=== PATIENT | female | born 1945 | race Caucasian/White ===

== ENCOUNTER 2022-05-05 13:25 | Emergency (ER) | payer OTHER ==
--- OUTSIDE RECORDS SUMMARY | 2022-05-05 13:34 | XMS REPORT | Continuity of Care Document ---
:1945 Author Organization [facility] t Address [address] [place] [address] Care Team Providers Name Role Phone VANESSA MC M.D. Attending Clinician Unavailable Mitchell Millan Attending Clinician Unavailable DAVID VALDERRAMA NP Attending Clinician Unavailable Payers Payer Name Policy Type Policy Number Effective Date Expiration Date S ource Problems Condition Condition Condition Status Onset Resolution Last Treating Co mments Source Name Details Category Date Date Treatment Clinician Date Diabetes Diabetes Problem Active UT mellitus mellitus Physic i ans Belching Belching Problem Active [facility] Physici ans Decreased Decreased Problem Active UT activities activities Ph ysici of daily of daily ans living living (ADL) (ADL) Dementia Dementia Problem Active [facility] ans GERD GERD Problem Active UT (gastroeso (gastroeso Ph ysici phageal phageal ans reflux reflux disease) disease) Hearing Hearing Problem Active UT difficulty difficulty Ph ysici of both of both ans ears ears Positive Positive Problem Active UT depression depression Ph ysici screening screening ans History of History of Problem Resolve UT Yeast Yeast d Physici vaginitis vaginitis ans Hyperlipid Hyperlipid Problem Active U T emia emia Physici ans History of History of Problem Resolve UT urinary urinary d Physici frequency frequency ans 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 Ph ysici y y ans Headache Headache Problem Active [facility] Physici ans History of History of Problem Resolve UT urinary urinary d Physici tract tract ans infection infection History of History of Problem Resolve UT vaginal vaginal d Physici pruritus pruritus ans At risk At risk Problem Active UT for for Physici falling falling ans Coordinati Coordinati Problem Active U T on of on of Physici complex complex ans care care Acute pain Acute pain Problem Active U T of left of left Physici knee knee ans Incontinen Incontinen Problem Active U T ce in ce in Physici female female ans Allergies, Adverse Reactions, Alerts Allergy Allergy Status Severity Reaction(s) Onset Inactive Treating Comm ents Source Name Type Date Date Clinician penicill DA Active U [facility] amine 4-16 Clear 00:00: Reece 00 [facility] penicill DA Active U UNKNOWN [facility] amine 4-16 Clear 00:00: Reece 00 [facility] Penicill drug Active UT ins allergy Physici ans Statins drug Active UT allergy Physici ans Family History Family Member Diagnosis Comments Start Date Stop Date Source Mother Family history of dementia [facility] Mother Family history of Diabetes [facility] mellitus of other type with microalbuminuria, with long-term current use of insulin Social History Smoking Status Start Date Stop Date Source Former smoker [facility] Medications Ordered Filled Start Stop Current Ordering Indication Dosage Frequency Signature Comments Components Source Medication Medication Date Date Medication? Clinician (SIG) Name Name traMADol traMADol Yes DAVIDTarsha VALDERRAMA Q0.3333D TAKE 1 UT HCl - 50 MG HCl - 50 MG 4-01 N.P. TABLET 3 Physici Oral Tablet Oral Tablet 00:00: TIMES ans 00 DAILY NEEDED. Butalbital- Butalbital- Yes VANESSA TAKE 1 UT APAP-Caffei APAP-Caffei 2-28 JESUSITA TABLET Physici ne ne 00:00: M.D. EVERY 4 TO ans 50-325-40 50-325-40 00 6 HOURS MG Oral MG Oral NEEDED FOR Tablet Tablet PAIN. Walker Walker Yes VANESSA USE UT 2-06 JESUSITA DIRECTED. Physici 00:00: M.D. ans 00 Omeprazole Omeprazole 2018- Yes VANESSA 2 TAKE 2 UT 20 MG Oral 20 MG Oral 2-04 JESUSITA TABLET Physici Tablet Tablet 00:00: M.D. Before ans Delayed Delayed 00 meals Release Release metFORMIN metFORMIN Yes VANESSA QD TAKE 2 UT HCl ER 500 HCl ER 500 1-31 JESUSITA TABLETS Physici MG Oral MG Oral 00:00: M.D. ONCE DAILY a ns Tablet Tablet 00 WITH THE Extended Extended EVENING Release 24 Release 24 MEAL. Hour Hour Probiotic Probiotic 2018- Yes 1 QD TAKE 1 U T Oral Tablet Oral Tablet 07-09 TABLET Physici Delayed Delayed 00:00: DAILY ans Release Release 00 HumuLIN HumuLIN Yes VANESSA 30 units UT 70/30 70/30 07-09 JESUSITA in AM and Physi ci KwikPen KwikPen 00:00: M.D. 20 units ans (70-30) 100 (70-30) 100 00 in PM UNIT/ML UNIT/ML Subcutaneou Subcutaneou s s Suspension Suspension Pen-injecto Pen-injecto r r Microlet Microlet Yes VANESSA USE UT Lancets Lancets 07-09 JESUSITA DIRECTED. P hysici 00:00: M.D. 3 TIMES ans 00 DAILY Contour Contour Yes VANESSA Q0.3333D TEST 3 UT Next Test Next Test 07-09 JESUSITA TIMES P hysici In Vitro In Vitro 00:00: M.D. DAILY. ans Strip Strip 00 Pen Argyle Pen Argyle Yes VANESSA USE UT 31G X 6 MM 31G X 6 MM 07-09 JESUSITA DIRECTED Physici 00:00: M.D. WITH DAILY ans 00 INJECTION Vital Signs Vital Name Observation Time Observation Value Comments Source BP Systolic 2018-09-10 13:14:00 117 mm[Hg] Location: [facility] gregorio Position: Sitting BP Diastolic 2018-09-10 13:14:00 77 [facility]Hg[facility] Height 2018-09-10 13:14:00 61 [in_us] [facility] Weight 2018-09-10 13:14:00 169 [lb_av] [facility] Body Mass Index 2018-09-10 13:14:00 31.93 kg/m2 [facility] Calculated Temperature 2018-09-10 13:14:00 97.4 [degF] Method: [facility] Temporal Heart Rate 2018-09-10 13:14:00 95 /min [facility] O2 SAT 2018-09-10 13:14:00 97 % [facility] BP Systolic 2018-08-09 15:44:00 98 mm[Hg] Location: LUE; [facility] Position: Sitting BP Diastolic 2018-08-09 15:44:00 64 mm[Hg] Location: LUE; [facility] Position: Sitting Weight 2018-08-09 15:44:00 168.4 [lb_av] [facility] Body Mass Index 2018-08-09 15:44:00 31.82 kg/m2 [facility] Calculated Temperature 2018-08-09 15:44:00 97.4 [degF] Method: [facility] Temporal O2 SAT 2018-08-09 15:44:00 98 % Source: [facility] Heart Rate 2018-08-09 15:44:00 73 /min [facility] BP Systolic 2018-07-16 16:25:00 102 mm[Hg] Location: LUE; [facility] Position: Sitting BP Diastolic 2018-07-16 16:25:00 70 mm[Hg] Location: LUE; [facility] Position: Sitting Height 2018-07-16 16:25:00 61 [in_us] [facility] Weight 2018-07-16 16:25:00 164.4 [lb_av] [facility] Body Mass Index 2018-07-16 16:25:00 31.06 kg/m2 [facility] Calculated Temperature 2018-07-16 16:25:00 97 [degF] Method: [facility] Temporal Heart Rate 2018-07-16 16:25:00 79 /min [facility] O2 SAT 2018-07-16 16:25:00 98 % [facility] BP Systolic 2018-07-09 13:23:00 107 mm[Hg] Location: LUE; [facility] Position: Sitting BP Diastolic 2018-07-09 13:23:00 72 mm[Hg] Location: LUE; [facility] Position: Sitting Height 2018-07-09 13:23:00 61 [in_us] [facility] Weight 2018-07-09 13:23:00 155.4 [lb_av] [facility] Body Mass Index 2018-07-09 13:23:00 29.36 kg/m2 [facility] Calculated Temperature 2018-07-09 13:23:00 97.4 [degF] Method: [facility] Temporal Heart Rate 2018-07-09 13:23:00 93 /min [facility] O2 SAT 2018-07-09 13:23:00 99 % Source: RA [facility] Procedures Procedure Date / Time Performing Clinician Source Performed [id number] 2019-09-27 00:00:00 ALEENA [facility] [id number] 2019-09-26 00:00:00 RESAL.01 [facility] [id number] 2019-09-26 00:00:00 RESAL.01 [facility] [id number] 2019-09-26 00:00:00 TIMOTHY [facility] [id number] 2019-09-26 00:00:00 RESAL.01 [facility] [id number] 2019-09-26 00:00:00 ALEENA [facility] [B] KNEE 3 VIEWS 2018-09-10 00:00:[address] Brain wo contrast 2018-08-09 00:00:00 [facility] [id number] [Q] URINALYSIS, 2018-08-02 00:00:00 [facility] s COMPLETE W/RFL CULTURE (REFL) [QLH] CBC (INCLUDES 2018-07-09 00:00:00 [facility] DIFF/PLT) [QLH] LIPID PANEL 2018-07-09 00:00:00 [facility]ici ans [QLH] CMP W/EGFR 2018-07-09 00:00:00 [facility] ns [QLH] TSH, 3RD 2018-07-09 00:00:00 [facility] s GENERATION [QLH] MICROALBUMIN, 2018-07-09 00:00:00 [facility] RANDOM URINE (W/CREATININE) [O] Urine Dipstick (In 2018-07-09 00:00:00 [facility] Office) [QLH] CULTURE, URINE, 2018-07-09 00:00:00 [facility] ROUTINE History of Hysterectomy [facility] History of Back Surgery [facility] Encounters Start End Encounter Admission Attending Care Care Encounter Source Date/Time Date/Time Type Type Clinicians Facility Department ID 2019-09-26 Inpatient HCACL LISANDRO [id number] [facility] 2018-10-09 AppointWILLIAM Rivera UTP [id number] [place] 15:30:00 15:30:00 t; Beba MENDEZ M.D. ans ALEYAMMA, M.D. 2018-09-21 2018-09-21 Outpatient TE Millan [id number] [facility] 07:54:00 07:54:00 [facility] 2018-09-10 2018-09-10 AppointDAVID Fry, [place] [id number] [place] 13:00:00 13:00:00 t; JIE VALDERRAMA Health and Ph ysici DAVID, [employer] [facility] 2018-08-28 2018-08-28 Outpatient TE Millan SETENT [id number] [facility] 13:42:00 13:42:00 [facility] 2018-08-13 2018-08-13 Outpatient TE Millan SETENT [id number] [facility] 08:05:00 08:05:00 [facility] 2018-08-09 2018-08-09 [id number] [place] 15:30:00 15:30:00 t; Mary MENDEZ and Jaxon MC M.D. Wellness Gabi Washington M.D. [place] 2018-08-07 2018-08-07 [id number] [place] 10:30:00 10:30:00 t; Mary MENDEZ and Jaxon CM M.D. Wellness Gabi Washington M.D. [place] 2018-07-16 2018-07-16 [facility] [id number] [place] 16:00:00 16:00:00 t; Mary MENDEZ and Jaxon MC M.D. Wellness Gabi Washington M.D. [place] 2018-07-16 2018-07-16 [facility] [id number] [place] 15:00:00 15:00:00 t; Mary MENDEZ and Jaxon MC M.D. Wellness Gabi Washington M.D. [place] 2018-07-16 2018-07-16 Outpatient TE Millan [id number] [facility] 08:42:00 08:42:00 Mitchell viramontes [place] [facility] 2018-07-09 2018-07-09 Appointezequiel MC [facility] [id number] [place] 13:15:00 13:15:00 [facility] Blanche Patel Results Test Description Test Time Test Comments Results Result Comments Source GLUBED 2019-10-12 11:42:00 Test Item Value Reference Range Interpretation Comme nts GLUBED (test code = GLUBED) 117 MG/DL 70-110 H Performed by certified 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 [facility] BASIC METABOLIC [id number] 07:36:00 Test Item Value Reference Range Interpretation Comments SODIUM (test code = NA) 141 mEq/L 134-147 N POTASSIUM (test code = 3.2 mEq/L 3.4-5.0 L K) CHLORIDE (test code = 107 mEq/L 100-108 N CL) CARBON DIOXIDE (test 27 mEq/L 21-33 N code = CO2) ANION GAP (test code = 10 0-20 N GAP) GLUCOSE (test code = 234 mg/dL 70-110 H GLU) BLOOD UREA NITROGEN 28 mg/dL 7-18 H (test code = BUN) GLOMERULAR FILTRATION 18.9 70-80 L Units of measure = RATE (test code = GFR) ml/mi n/1.73 m2 CREATININE (test code = 2.5 mg/dL 0.6-1.3 H CREAT) CALCIUM (test code = 8.0 mg/dL 8.0-10.5 N CA) [id number] 07:36:00 Test Item Value Reference Range Interpretation Comments PHOSPHOROUS (test code = PHOS) 3.1 MG/DL 2.5-4.9 N [id number] 07:36:00 Test Item Value Reference Range Interpretation Comments MAGNESIUM (test code = MAG) 1.60 mg/dL 1.8-2.4 L [id number] 07:32:00 Test Item Value Reference Range Interpretation Comments GLUBED (test code = 224 MG/DL 70-110 H Performe d by certified 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[facility] CBC W/AUTO [id number] 07:06:00 Test Item Value Reference Range Interpretation Comments WHITE BLOOD CELL (test code = 8.34 x10 3/uL 4.5-11.0 N WBC) RED BLOOD CELL (test code = 2.54 x10 6/uL 3.54-5.02 L RBC) HEMOGLOBIN (test code = HGB) 7.6 g/dL 11.0-15.0 L HEMATOCRIT (test code = HCT) 24.1 % 33.0-45.0 L MEAN CELL VOLUME (test code = 94.9 fL 81.0-99.0 N MCV) MEAN CELL HGB (test code = MCH) 29.9 pg 27.0-33.0 N MEAN CELL HGB CONCETRATION 31.5 g/dL 33.0-37.0 L (test code = MCHC) RED CELL DISTRIBUTION WIDTH CV 15.5 % 11.5-14.5 H (test code = RDW) RED CELL DISTRIBUTION WIDTH SD 51.7 fL 37.0-54.0 N (test code = RDW-SD) PLATELET COUNT (test code = 283 x10 3/uL 150-400 N PLT) MEAN PLATELET VOLUME (test code 10.8 fL 7.0-9.0 H = MPV) NEUTROPHIL % (test code = NT%) 66.1 % 56.0-77.0 N IMMATURE GRANULOCYTE % (test 0.5 % 0.0-2.0 N code = IG%) LYMPHOCYTE % (test code = LY%) 22.9 % 14.0-32.0 N MONOCYTE % (test code = MO%) 8.9 % 4.8-9.0 N EOSINOPHIL % (test code = EO%) 0.8 % 0.3-3.7 N BASOPHIL % (test code = BA%) 0.8 % 0.0-2.0 N NUCLEATED RBC % (test code = 0.0 % 0-0 N NRBC%) NEUTROPHIL # (test code = NT#) 5.51 x10 3/uL 2.0-7.6 N IMMATURE GRANULOCYTE # (test 0.04 x10 3/uL 0.00-0.03 H code = IG#) LYMPHOCYTE # (test code = LY#) 1.91 x10 3/uL 1.0-3.8 N MONOCYTE # (test code = MO#) 0.74 x10 3/uL 0.1-0.8 N EOSINOPHIL # (test code = EO#) 0.07 x10 3/uL 0.0-0.2 N BASOPHIL # (test code = BA#) 0.07 x10 3/uL 0.0-0.2 N NUCLEATED RBC # (test code = 0.00 x10 3/uL 0.0-0.1 N NRBC#) MANUAL DIFF REQUIRED (test code NO = MDIFF) [id number] 19:44:00 Test Item Value Reference Range Interpretation Comments GLUBED (test code = 116 MG/DL 70-110 H Performe d by certified 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[facility] [id number] 16:20:00 Test Item Value Reference Range Interpretation Comments GLUBED (test code = 132 MG/DL 70-110 H Performe d by certified 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[facility] BASIC METABOLIC [id number] 12:23:00 Test Item Value Reference Range Interpretation Comments SODIUM (test code = NA) 142 mEq/L 134-147 N POTASSIUM (test code = 3.3 mEq/L 3.4-5.0 L K) CHLORIDE (test code = 107 mEq/L 100-108 N CL) CARBON DIOXIDE (test 29 mEq/L 21-33 N code = CO2) ANION GAP (test code = 9 0-20 N GAP) GLUCOSE (test code = 222 mg/dL 70-110 H GLU) BLOOD UREA NITROGEN 29 mg/dL 7-18 H (test code = BUN) GLOMERULAR FILTRATION 18.1 70-80 L Units of measure = RATE (test code = GFR) ml/mi n/1.73 m2 CREATININE (test code = 2.6 mg/dL 0.6-1.3 H CREAT) CALCIUM (test code = 7.9 mg/dL 8.0-10.5 L CA) [id number] 12:23:00 Test Item Value Reference Range Interpretation Comments MAGNESIUM (test code = MAG) 1.40 mg/dL 1.8-2.4 L CBC W/AUTO [id number] 11:44:00 Test Item Value Reference Range Interpretation Comments WHITE BLOOD CELL (test code = 9.83 x10 3/uL 4.5-11.0 N WBC) RED BLOOD CELL (test code = 2.63 x10 6/uL 3.54-5.02 L RBC) HEMOGLOBIN (test code = HGB) 7.9 g/dL 11.0-15.0 L HEMATOCRIT (test code = HCT) 24.6 % 33.0-45.0 L MEAN CELL VOLUME (test code = 93.5 fL 81.0-99.0 N MCV) MEAN CELL HGB (test code = MCH) 30.0 pg 27.0-33.0 N MEAN CELL HGB CONCETRATION 32.1 g/dL 33.0-37.0 L (test code = MCHC) RED CELL DISTRIBUTION WIDTH CV 15.1 % 11.5-14.5 H (test code = RDW) RED CELL DISTRIBUTION WIDTH SD 49.7 fL 37.0-54.0 N (test code = RDW-SD) PLATELET COUNT (test code = 283 x10 3/uL 150-400 N PLT) MEAN PLATELET VOLUME (test code 10.3 fL 7.0-9.0 H = MPV) NEUTROPHIL % (test code = NT%) 73.4 % 56.0-77.0 N IMMATURE GRANULOCYTE % (test 0.5 % 0.0-2.0 N code = IG%) LYMPHOCYTE % (test code = LY%) 17.1 % 14.0-32.0 N MONOCYTE % (test code = MO%) 7.4 % 4.8-9.0 N EOSINOPHIL % (test code = EO%) 0.9 % 0.3-3.7 N BASOPHIL % (test code = BA%) 0.7 % 0.0-2.0 N NUCLEATED RBC % (test code = 0.0 % 0-0 N NRBC%) NEUTROPHIL # (test code = NT#) 7.21 x10 3/uL 2.0-7.6 N IMMATURE GRANULOCYTE # (test 0.05 x10 3/uL 0.00-0.03 H code = IG#) LYMPHOCYTE # (test code = LY#) 1.68 x10 3/uL 1.0-3.8 N MONOCYTE # (test code = MO#) 0.73 x10 3/uL 0.1-0.8 N EOSINOPHIL # (test code = EO#) 0.09 x10 3/uL 0.0-0.2 N BASOPHIL # (test code = BA#) 0.07 x10 3/uL 0.0-0.2 N NUCLEATED RBC # (test code = 0.00 x10 3/uL 0.0-0.1 N NRBC#) MANUAL DIFF REQUIRED (test code NO = MDIFF) [id number] 10:37:00 Test Item Value Reference Range Interpretation Comments GLUBED (test code = 233 MG/DL 70-110 H Performe d by certified 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[facility] [id number] 07:27:00 Test Item Value Reference Range Interpretation Comments GLUBED (test code = 130 MG/DL 70-110 H Performe d by certified 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[facility] [id number] 20:11:00 Test Item Value Reference Range Interpretation Comments GLUBED (test code = 177 MG/DL 70-110 H Performe d by certified 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[facility] [id number] 17:39:00 Test Item Value Reference Range Interpretation Comments GLUBED (test code = 175 MG/DL 70-110 H Performe d by certified 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[facility] [id number] 11:52:00 Test Item Value Reference Range Interpretation Comments GLUBED (test code = 136 MG/DL 70-110 H Performe d by certified 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[facility] CBC W/AUTO [id number] 08:16:00 Test Item Value Reference Range Interpretation Comments WHITE BLOOD CELL (test code = 10.88 x10 3/uL 4.5-11.0 N WBC) RED BLOOD CELL (test code = 2.86 x10 6/uL 3.54-5.02 L RBC) HEMOGLOBIN (test code = HGB) 8.5 g/dL 11.0-15.0 L HEMATOCRIT (test code = HCT) 26.4 % 33.0-45.0 L MEAN CELL VOLUME (test code = 92.3 fL 81.0-99.0 MCV) MEAN CELL HGB (test code = 29.7 pg 27.0-33.0 N MCH) MEAN CELL HGB CONCETRATION 32.2 g/dL 33.0-37.0 L (test code = MCHC) RED CELL DISTRIBUTION WIDTH CV 14.9 % 11.5-14.5 H (test code = RDW) RED CELL DISTRIBUTION WIDTH SD 48.2 fL 37.0-54.0 N (test code = RDW-SD) PLATELET COUNT (test code = 311 x10 3/uL 150-400 PLT) MEAN PLATELET VOLUME (test 10.7 fL 7.0-9.0 H code = MPV) NEUTROPHIL % (test code = NT%) 70.7 % 56.0-77.0 N IMMATURE GRANULOCYTE % (test 0.6 % 0.0-2.0 N code = IG%) LYMPHOCYTE % (test code = LY%) 20.6 % 14.0-32.0 N MONOCYTE % (test code = MO%) 6.5 % 4.8-9.0 N EOSINOPHIL % (test code = EO%) 1.0 % 0.3-3.7 N BASOPHIL % (test code = BA%) 0.6 % 0.0-2.0 N NUCLEATED RBC % (test code = 0.0 % 0-0 N NRBC%) NEUTROPHIL # (test code = NT#) 7.69 x10 3/uL 2.0-7.6 H IMMATURE GRANULOCYTE # (test 0.07 x10 3/uL 0.00-0.03 H code = IG#) LYMPHOCYTE # (test code = LY#) 2.24 x10 3/uL 1.0-3.8 N MONOCYTE # (test code = MO#) 0.71 x10 3/uL 0.1-0.8 N EOSINOPHIL # (test code = EO#) 0.11 x10 3/uL 0.0-0.2 N BASOPHIL # (test code = BA#) 0.06 x10 3/uL 0.0-0.2 N NUCLEATED RBC # (test code = 0.00 x10 3/uL 0.0-0.1 N NRBC#) MANUAL DIFF REQUIRED (test NO code = MDIFF) [id number] 08:11:00 Test Item Value Reference Range Interpretation Comments GLUBED (test code = 119 MG/DL 70-110 H Performe d by certified 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[facility] BASIC METABOLIC [id number] 07:49:00 Test Item Value Reference Range Interpretation Comments SODIUM (test code = NA) 143 mEq/L 134-147 N POTASSIUM (test code = 2.8 mEq/L 3.4-5.0 LL K) CHLORIDE (test code = 106 mEq/L 100-108 N CL) CARBON DIOXIDE (test 30 mEq/L 21-33 code = CO2) ANION GAP (test code = 10 0-20 N GAP) GLUCOSE (test code = 123 mg/dL 70-110 H GLU) BLOOD UREA NITROGEN 27 mg/dL 7-18 H (test code = BUN) GLOMERULAR FILTRATION 19.8 70-80 L Units of measure = RATE (test code = GFR) ml/mi n/1.73 m2 CREATININE (test code = 2.4 mg/dL 0.6-1.3 H CREAT) CALCIUM (test code = 8.0 mg/dL 8.0-10.5 N CA) [id number] 07:49:00 Test Item Value Reference Range Interpretation Comments PHOSPHOROUS (test code = PHOS) 3.5 MG/DL 2.5-4.9 N [id number] 07:49:00 Test Item Value Reference Range Interpretation Comments MAGNESIUM (test code = MAG) 1.30 mg/dL 1.8-2.4 L [id number] 21:10:00 Test Item Value Reference Range Interpretation Comments GLUBED (test code = 234 MG/DL 70-110 H Performe d by certified 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[facility] [id number] 17:21:00 Test Item Value Reference Range Interpretation Comments GLUBED (test code = 127 MG/DL 70-110 H Performe d by certified 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[facility] [id number] 13:26:00 Test Item Value Reference Range Interpretation Comments GLUBED (test code = 144 MG/DL 70-110 H Performe d by certified 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[facility] TOTAL IRON BINDING [id number] 12:02:00 Test Item Value Reference Range Interpretation Comments SERUM IRON (test code = IRON) 56 mcg/dL 35-150 N TOTAL IRON BINDING CAPACITY (test 163 mcg/dL 260-445 L code = TIBC) UIBC (test code = UIBC) 107 mcg/dL IRON SATURATION (test code = 34.4 % 14-34 H FESAT) [id number] 12:02:00 Test Item Value Reference Range Interpretation Comments FERRITIN (test code = VIKY) 182.0 ng/mL 11.0-306.8 N [id number] 08:40:00 Test Item Value Reference Range Interpretation Comments GLUBED (test code = 136 MG/DL 70-110 H Performe d by certified 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[facility] BASIC METABOLIC [id number] 08:20:00 Test Item Value Reference Range Interpretation Comments SODIUM (test code = NA) 141 mEq/L 134-147 N POTASSIUM (test code = 3.3 mEq/L 3.4-5.0 L K) CHLORIDE (test code = 108 mEq/L 100-108 N CL) CARBON DIOXIDE (test 23 mEq/L 21-33 N code = CO2) ANION GAP (test code = 13 0-20 N GAP) GLUCOSE (test code = 142 mg/dL 70-110 H GLU) BLOOD UREA NITROGEN 28 mg/dL 7-18 H (test code = BUN) GLOMERULAR FILTRATION 18.9 70-80 L Units of measure = RATE (test code = GFR) ml/mi n/1.73 m2 CREATININE (test code = 2.5 mg/dL 0.6-1.3 H CREAT) CALCIUM (test code = 7.8 mg/dL 8.0-10.5 L CA) [id number] 08:20:00 Test Item Value Reference Range Interpretation Comments PHOSPHOROUS (test code = PHOS) 3.1 MG/DL 2.5-4.9 N [id number] 08:20:00 Test Item Value Reference Range Interpretation Comments MAGNESIUM (test code = MAG) 1.60 mg/dL 1.8-2.4 L CBC W/AUTO [id number] 07:52:00 Test Item Value Reference Range Interpretation Comments WHITE BLOOD CELL (test code = 10.44 x10 3/uL 4.5-11.0 N WBC) RED BLOOD CELL (test code = 2.52 x10 6/uL 3.54-5.02 L RBC) HEMOGLOBIN (test code = HGB) 7.6 g/dL 11.0-15.0 L HEMATOCRIT (test code = HCT) 24.3 % 33.0-45.0 L MEAN CELL VOLUME (test code = 96.4 fL 81.0-99.0 N MCV) MEAN CELL HGB (test code = 30.2 pg 27.0-33.0 N MCH) MEAN CELL HGB CONCETRATION 31.3 g/dL 33.0-37.0 L (test code = MCHC) RED CELL DISTRIBUTION WIDTH CV 15.0 % 11.5-14.5 H (test code = RDW) RED CELL DISTRIBUTION WIDTH SD 49.9 fL 37.0-54.0 N (test code = RDW-SD) PLATELET COUNT (test code = 193 x10 3/uL 150-400 N PLT) MEAN PLATELET VOLUME (test 11.6 fL 7.0-9.0 H code = MPV) NEUTROPHIL % (test code = NT%) 70.1 % 56.0-77.0 N IMMATURE GRANULOCYTE % (test 0.5 % 0.0-2.0 N code = IG%) LYMPHOCYTE % (test code = LY%) 21.1 % 14.0-32.0 N MONOCYTE % (test code = MO%) 7.0 % 4.8-9.0 N EOSINOPHIL % (test code = EO%) 1.0 % 0.3-3.7 N BASOPHIL % (test code = BA%) 0.3 % 0.0-2.0 N NUCLEATED RBC % (test code = 0.2 % 0-0 H NRBC%) NEUTROPHIL # (test code = NT#) 7.33 x10 3/uL 2.0-7.6 N IMMATURE GRANULOCYTE # (test 0.05 x10 3/uL 0.00-0.03 H code = IG#) LYMPHOCYTE # (test code = LY#) 2.20 x10 3/uL 1.0-3.8 N MONOCYTE # (test code = MO#) 0.73 x10 3/uL 0.1-0.8 N EOSINOPHIL # (test code = EO#) 0.10 x10 3/uL 0.0-0.2 N BASOPHIL # (test code = BA#) 0.03 x10 3/uL 0.0-0.2 N NUCLEATED RBC # (test code = 0.02 x10 3/uL 0.0-0.1 N NRBC#) MANUAL DIFF REQUIRED (test NO code = MDIFF) [id number] 07:16:00 Test Item Value Reference Range Interpretation Comments GLUBED (test code = 279 MG/DL 70-110 H Performe d by certified 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[facility] [id number] 21:40:00 Test Item Value Reference Range Interpretation Comments GLUBED (test code = 282 MG/DL 70-110 H Performe d by certified 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[facility] [id number] 11:28:00 Test Item Value Reference Range Interpretation Comments GLUBED (test code = 115 MG/DL 70-110 H Performe d by certified 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[facility] [id number] 08:26:00 Test Item Value Reference Range Interpretation Comments GLUBED (test code = 117 MG/DL 70-110 H Performe d by certified 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[facility] [id number] 20:40:00 Test Item Value Reference Range Interpretation Comments GLUBED (test code = 152 MG/DL 70-110 H Performe d by certified 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[facility] [id number] 17:27:00 Test Item Value Reference Range Interpretation Comments GLUBED (test code = 155 MG/DL 70-110 H Performe d by certified 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 Positiv e results do not rule out bacterial infection or co -infection with other viru ses. Negative result s do not preclude SARS-C oV-2 infection andsh ould not be used as the susanne e basis for patient managementdecis ions. Negative result s must be combined with otherclinical observations, p atient history, and epidemiological information . Detection of SARS-CoV-2 RNA may be affe cted bysample collec tion methods, storag e conditions, and /or stageof infection. Loren l RNA mutations, vacc inations, antiviraltherap eutics, antibiotics, chemotherapeuti c orimmunosuppres angelito drugs have not been e valuated for effectson d etection. Results are for the identification of SARS-CoV-2 RNA usingthe Kenny M2000 Sy stem under the FDA Emergen cy UseAuthorizatio n. The testing is perf ormed by personneltraine d in the procedures for the Kenny M2000 molecular diagnostic SARS-CoV-2 assa y in vitro. 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[facility] [id number] 08:07:00 Test Item Value Reference Range Interpretation Comments GLUBED (test code = 112 MG/DL 70-110 H Performe d by certified 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[facility] BASIC METABOLIC [id number] 03:35:00 Test Item Value Reference Range Interpretation Comments SODIUM (test code = NA) 139 mEq/L 134-147 N POTASSIUM (test code = 3.1 mEq/L 3.4-5.0 L K) CHLORIDE (test code = 106 mEq/L 100-108 N CL) CARBON DIOXIDE (test 24 mEq/L 21-33 N code = CO2) ANION GAP (test code = 12 0-20 N GAP) GLUCOSE (test code = 115 mg/dL 70-110 H GLU) BLOOD UREA NITROGEN 27 mg/dL 7-18 H (test code = BUN) GLOMERULAR FILTRATION 19.8 70-80 L Units of measure = RATE (test code = GFR) ml/mi n/1.73 m2 CREATININE (test code = 2.4 mg/dL 0.6-1.3 H CREAT) CALCIUM (test code = 8.1 mg/dL 8.0-10.5 N CA) [id number] 03:35:00 Test Item Value Reference Range Interpretation Comments PHOSPHOROUS (test code = PHOS) 3.4 MG/DL 2.5-4.9 [id number] 03:35:00 Test Item Value Reference Range Interpretation Comments MAGNESIUM (test code = MAG) 1.50 mg/dL 1.8-2.4 L CBC W/AUTO [id number] 03:22:00 Test Item Value Reference Range Interpretation Comments WHITE BLOOD CELL (test code = 9.48 x10 3/uL 4.5-11.0 N WBC) RED BLOOD CELL (test code = 2.72 x10 6/uL 3.54-5.02 L RBC) HEMOGLOBIN (test code = HGB) 8.0 g/dL 11.0-15.0 L HEMATOCRIT (test code = HCT) 26.2 % 33.0-45.0 L MEAN CELL VOLUME (test code = 96.3 fL 81.0-99.0 MCV) MEAN CELL HGB (test code = MCH) 29.4 pg 27.0-33.0 N MEAN CELL HGB CONCETRATION 30.5 g/dL 33.0-37.0 L (test code = MCHC) RED CELL DISTRIBUTION WIDTH CV 14.1 % 11.5-14.5 N (test code = RDW) RED CELL DISTRIBUTION WIDTH SD 48.2 fL 37.0-54.0 N (test code = RDW-SD) PLATELET COUNT (test code = 216 x10 3/uL 150-400 N PLT) MEAN PLATELET VOLUME (test code 10.0 fL 7.0-9.0 H = MPV) NEUTROPHIL % (test code = NT%) 57.0 % 56.0-77.0 N IMMATURE GRANULOCYTE % (test 1.2 % 0.0-2.0 N code = IG%) LYMPHOCYTE % (test code = LY%) 25.3 % 14.0-32.0 N MONOCYTE % (test code = MO%) 14.7 % 4.8-9.0 H EOSINOPHIL % (test code = EO%) 1.4 % 0.3-3.7 N BASOPHIL % (test code = BA%) 0.4 % 0.0-2.0 N NUCLEATED RBC % (test code = 0.2 % 0-0 H NRBC%) NEUTROPHIL # (test code = NT#) 5.41 x10 3/uL 2.0-7.6 N IMMATURE GRANULOCYTE # (test 0.11 x10 3/uL 0.00-0.03 H code = IG#) LYMPHOCYTE # (test code = LY#) 2.40 x10 3/uL 1.0-3.8 N MONOCYTE # (test code = MO#) 1.39 x10 3/uL 0.1-0.8 H EOSINOPHIL # (test code = EO#) 0.13 x10 3/uL 0.0-0.2 N BASOPHIL # (test code = BA#) 0.04 x10 3/uL 0.0-0.2 N NUCLEATED RBC # (test code = 0.02 x10 3/uL 0.0-0.1 N NRBC#) MANUAL DIFF REQUIRED (test code NO = MDIFF) [id number] 23:52:00 Test Item Value Reference Range Interpretation Comments GLUBED (test code = 139 MG/DL 70-110 H Performe d by certified 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 YESCOMMENTS: R/O PATIENT IN CONTACT WITH POSITIVE COVID 19 THROUGH [facility]/Comment: PATIENT WITH COUGH AND [id number] 13:06:00 Test Item Value Reference Range Interpretation Comments GLUBED (test code = 204 MG/DL 70-110 H Performe d by certified 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[facility] B-TYPE NATRIURETIC [id number] 11:28:00 Test Item Value Reference Range Interpretation Comments B-TYPE NATRIURETIC PEPTIDE (test 301.5 PG/ML 0-100 H code = BNP) CBC W/AUTO [id number] 11:25:00 Test Item Value Reference Range Interpretation Comments WHITE BLOOD CELL (test code = 7.11 x10 3/uL 4.5-11.0 N WBC) RED BLOOD CELL (test code = 2.56 x10 6/uL 3.54-5.02 L RBC) HEMOGLOBIN (test code = HGB) 7.6 g/dL 11.0-15.0 L HEMATOCRIT (test code = HCT) 23.5 % 33.0-45.0 L MEAN CELL VOLUME (test code = 91.8 fL 81.0-99.0 N MCV) MEAN CELL HGB (test code = MCH) 29.7 pg 27.0-33.0 N MEAN CELL HGB CONCETRATION 32.3 g/dL 33.0-37.0 L (test code = MCHC) RED CELL DISTRIBUTION WIDTH CV 13.6 % 11.5-14.5 N (test code = RDW) RED CELL DISTRIBUTION WIDTH SD 45.9 fL 37.0-54.0 N (test code = RDW-SD) PLATELET COUNT (test code = 212 x10 3/uL 150-400 N PLT) MEAN PLATELET VOLUME (test code 10.7 fL 7.0-9.0 H = MPV) MANUAL DIFF REQUIRED (test code YES = MDIFF) WBC [id number] 11:25:00 Test Item Value Reference Range Interpretation Comments SEGMENTED NEUTROPHILS (test 52.3 % 37-69 N code = SEG) BAND NEUTROPHIL (test code 4.6 % 0.0-10.0 N = BAND) LYMPHOCYTE (test code = 26.6 % 23-55 N LYMPH) MONOCYTE (test code = MON) 14.7 % 0-10 H EOSINOPHIL (test code = 0.9 % 0.0-4.0 N EOS) METAMYELOCYTE (test code = 0.9 % 0.0-0.0 H META) NUCLEATED RED BLOOD CELL 0.9 % (test code = NRBC) POLYCHROMASIA (test code = 2+ POLC) HYPOCHROMIA (test code = 1+ HYPO) POIKILOCYTOSIS (test code = 1+ POIK) ANISOCYTOSIS (test code = 1+ ANISO) PLATELET ESTIMATE (test Adequate THOUSAND ADEQUATE code = PLTEST) CBC W/AUTO [id number] 11:20:00 Test Item Value Reference Range Interpretation Comments WHITE BLOOD CELL (test code = 7.11 x10 3/uL 4.5-11.0 N WBC) RED BLOOD CELL (test code = 2.56 x10 6/uL 3.54-5.02 L RBC) HEMOGLOBIN (test code = HGB) 7.6 g/dL 11.0-15.0 L HEMATOCRIT (test code = HCT) 23.5 % 33.0-45.0 L MEAN CELL VOLUME (test code = 91.8 fL 81.0-99.0 N MCV) MEAN CELL HGB (test code = MCH) 29.7 pg 27.0-33.0 N MEAN CELL HGB CONCETRATION 32.3 g/dL 33.0-37.0 L (test code = MCHC) RED CELL DISTRIBUTION WIDTH CV 13.6 % 11.5-14.5 N (test code = RDW) RED CELL DISTRIBUTION WIDTH SD 45.9 fL 37.0-54.0 N (test code = RDW-SD) PLATELET COUNT (test code = 212 x10 3/uL 150-400 N PLT) MEAN PLATELET VOLUME (test code 10.7 fL 7.0-9.0 H = MPV) MANUAL DIFF REQUIRED (test code YES = MDIFF) WBC [id number] 11:20:00 Test Item Value Reference Range Interpretation Comments ANISOCYTOSIS (test code = ANISO) PLATELET ESTIMATE (test code = THOUSAND ADEQUATE PLTEST) CBC W/AUTO [id number] 11:20:00 Test Item Value Reference Range Interpretation Comments WHITE BLOOD CELL (test code = 7.11 x10 3/uL 4.5-11.0 N WBC) RED BLOOD CELL (test code = 2.56 x10 6/uL 3.54-5.02 L RBC) HEMOGLOBIN (test code = HGB) 7.6 g/dL 11.0-15.0 L HEMATOCRIT (test code = HCT) 23.5 % 33.0-45.0 L MEAN CELL VOLUME (test code = 91.8 fL 81.0-99.0 N MCV) MEAN CELL HGB (test code = MCH) 29.7 pg 27.0-33.0 N MEAN CELL HGB CONCETRATION 32.3 g/dL 33.0-37.0 L (test code = MCHC) RED CELL DISTRIBUTION WIDTH CV 13.6 % 11.5-14.5 N (test code = RDW) RED CELL DISTRIBUTION WIDTH SD 45.9 fL 37.0-54.0 N (test code = RDW-SD) PLATELET COUNT (test code = 212 x10 3/uL 150-400 N PLT) MEAN PLATELET VOLUME (test code 10.7 fL 7.0-9.0 H = MPV) MANUAL DIFF REQUIRED (test code YES = MDIFF) WBC [id number] 11:20:00 Test Item Value Reference Range Interpretation Comments ANISOCYTOSIS (test code = ANISO) PLATELET ESTIMATE (test code = THOUSAND ADEQUATE PLTEST) [id number] 11:12:00 Test Item Value Reference Range Interpretation Comments GLUBED (test code = 108 MG/DL 70-110 N Performe d by certified 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 - XR CHEST 1 [id number] 09:40:00 FAX: Joel Falk [phone] [place]: St: ADM Name: MAC AGUSTIN [facility] : 1945 Age/S: 74/F [address] [place] [address] Blvd Unit #: [id number] Loc: G.4431 [place] [address] Phys: Joel Myers MD Acct: [id number] Dis Date: Status: ADM IN PHONE #: [phone] Exam Date: 10/06/2019 0930FAX #: [phone] Reason: SOB,cough EXAMS: CPT CODE: [id number] XR CHEST 1 V 11699 EXAM: Single view AP chest. EXAM DATE: 10/06/2019 at 0910 hours CLINICAL HISTORY: SOB,cough COMPARISON: September 30, 2019 at 0457 hours Heart size is within normal limits. Atherosclerotic calcifications and tortuosity ofthe intrathoracic aorta is identified.. There has been a decrease in the previously described bilateral pleural effusions and bilateral basilar atelectasis. Mild vascular congestion is again identified. Surgical clips are noted in the right upper quadrant. Imaged osseous structures demonstrate no acute findings. IMPRESSION: 1. Decreasing bilateral pleural effusions and bibasilar atelectasis. 2. Stable pulmonary vascular congestion at 0940 Reported and signed by: Tracy Johnson M.D. CC: Joel Myers MD Technologist: Odalis Sarah RT(R) Trnscrd Date/Time/By: 10/06/2019 (4365) : By: Delvis Booker Print D/T: S: 10/06/2019 (8126) PAGE 1 Signed ReportBASIC METABOLIC [id number] 08:27:00 Test Item Value Reference Range Interpretation Comments SODIUM (test code = NA) 139 mEq/L 134-147 N POTASSIUM (test code = 3.6 mEq/L 3.4-5.0 N K) CHLORIDE (test code = 105 mEq/L 100-108 N CL) CARBON DIOXIDE (test 23 mEq/L 21-33 N code = CO2) ANION GAP (test code = 15 0-20 N GAP) GLUCOSE (test code = 94 mg/dL 70-110 N GLU) BLOOD UREA NITROGEN 26 mg/dL 7-18 H (test code = BUN) GLOMERULAR FILTRATION 18.1 70-80 L Units of measure = RATE (test code = GFR) ml/mi n/1.73 m2 CREATININE (test code = 2.6 mg/dL 0.6-1.3 H CREAT) CALCIUM (test code = 8.1 mg/dL 8.0-10.5 N CA) [id number] 08:27:00 Test Item Value Reference Range Interpretation Comments PHOSPHOROUS (test code = PHOS) 2.5 MG/DL 2.5-4.9 N [id number] 08:27:00 Test Item Value Reference Range Interpretation Comments MAGNESIUM (test code = MAG) 1.80 mg/dL 1.8-2.4 N CBC W/AUTO [id number] 07:44:00 Test Item Value Reference Range Interpretation Comments WHITE BLOOD CELL (test code = 7.11 x10 3/uL 4.5-11.0 N WBC) RED BLOOD CELL (test code = 2.56 x10 6/uL 3.54-5.02 L RBC) HEMOGLOBIN (test code = HGB) 7.6 g/dL 11.0-15.0 L HEMATOCRIT (test code = HCT) 23.5 % 33.0-45.0 L MEAN CELL VOLUME (test code = 91.8 fL 81.0-99.0 N MCV) MEAN CELL HGB (test code = MCH) 29.7 pg 27.0-33.0 N MEAN CELL HGB CONCETRATION 32.3 g/dL 33.0-37.0 L (test code = MCHC) RED CELL DISTRIBUTION WIDTH CV 13.6 % 11.5-14.5 N (test code = RDW) RED CELL DISTRIBUTION WIDTH SD 45.9 fL 37.0-54.0 N (test code = RDW-SD) PLATELET COUNT (test code = 212 x10 3/uL 150-400 N PLT) MEAN PLATELET VOLUME (test code 10.7 fL 7.0-9.0 H = MPV) NEUTROPHIL % (test code = NT%) % 56.0-77.0 LYMPHOCYTE % (test code = LY%) % 14.0-32.0 NEUTROPHIL # (test code = NT#) x10 3/uL 2.0-7.6 LYMPHOCYTE # (test code = LY#) x10 3/uL 1.0-3.8 MANUAL DIFF REQUIRED (test code = MDIFF) [id number] 20:34:00 Test Item Value Reference Range Interpretation Comments GLUBED (test code = 143 MG/DL 70-110 H Performe d by certified 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[facility] [id number] 18:17:00 Test Item Value Reference Range Interpretation Comments GLUBED (test code = 112 MG/DL 70-110 H Performe d by certified 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[facility] [id number] 12:26:00 Test Item Value Reference Range Interpretation Comments GLUBED (test code = 168 MG/DL 70-110 H Performe d by certified 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[facility] [id number] 09:28:00 Test Item Value Reference Range Interpretation Comments GLUBED (test code = 118 MG/DL 70-110 H Performe d by certified 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[facility] CBC W/AUTO [id number] 09:00:00 Test Item Value Reference Range Interpretation Comments WHITE BLOOD CELL (test code = 7.15 x10 3/uL 4.5-11.0 N WBC) RED BLOOD CELL (test code = 2.71 x10 6/uL 3.54-5.02 L RBC) HEMOGLOBIN (test code = HGB) 8.0 g/dL 11.0-15.0 L HEMATOCRIT (test code = HCT) 24.7 % 33.0-45.0 L MEAN CELL VOLUME (test code = 91.1 fL 81.0-99.0 MCV) MEAN CELL HGB (test code = MCH) 29.5 pg 27.0-33.0 N MEAN CELL HGB CONCETRATION 32.4 g/dL 33.0-37.0 L (test code = MCHC) RED CELL DISTRIBUTION WIDTH CV 13.3 % 11.5-14.5 N (test code = RDW) RED CELL DISTRIBUTION WIDTH SD 44.4 fL 37.0-54.0 N (test code = RDW-SD) PLATELET COUNT (test code = 192 x10 3/uL 150-400 PLT) MEAN PLATELET VOLUME (test code 10.3 fL 7.0-9.0 H = MPV) MANUAL DIFF REQUIRED (test code YES = MDIFF) WBC [id number] 09:00:00 Test Item Value Reference Range Interpretation Comments SEGMENTED NEUTROPHILS (test 57 % 37-69 N code = SEG) BAND NEUTROPHIL (test code 2.0 % 0.0-10.0 N = BAND) LYMPHOCYTE (test code = 25 % 23-55 N LYMPH) REACTIVE LYMPH (test code = MODERATE % RELYMPH) MONOCYTE (test code = MON) 13 % 0-10 H EOSINOPHIL (test code = 2 % 0.0-4.0 N EOS) BASOPHIL (test code = BASO) 1 % 0.0-2.0 N NUCLEATED RED BLOOD CELL 1 % (test code = NRBC) HYPOCHROMIA (test code = 1+ HYPO) POIKILOCYTOSIS (test code = SLIGHT POIK) ANISOCYTOSIS (test code = SLIGHT ANISO) TOXIC GRANULATION (test 1+ code = TOX) PLATELET ESTIMATE (test Adequate THOUSAND ADEQUATE code = PLTEST) PLATELET MORPHOLOGY (test LARGE PLATELETS code = PLTMORPH) CBC W/AUTO [id number] 08:55:00 Test Item Value Reference Range Interpretation Comments WHITE BLOOD CELL (test code = 7.15 x10 3/uL 4.5-11.0 N WBC) RED BLOOD CELL (test code = 2.71 x10 6/uL 3.54-5.02 L RBC) HEMOGLOBIN (test code = HGB) 8.0 g/dL 11.0-15.0 L HEMATOCRIT (test code = HCT) 24.7 % 33.0-45.0 L MEAN CELL VOLUME (test code = 91.1 fL 81.0-99.0 MCV) MEAN CELL HGB (test code = MCH) 29.5 pg 27.0-33.0 N MEAN CELL HGB CONCETRATION 32.4 g/dL 33.0-37.0 L (test code = MCHC) RED CELL DISTRIBUTION WIDTH CV 13.3 % 11.5-14.5 N (test code = RDW) RED CELL DISTRIBUTION WIDTH SD 44.4 fL 37.0-54.0 N (test code = RDW-SD) PLATELET COUNT (test code = 192 x10 3/uL 150-400 PLT) MEAN PLATELET VOLUME (test code 10.3 fL 7.0-9.0 H = MPV) MANUAL DIFF REQUIRED (test code YES = JACQUELINE) WBC [id number] 08:55:00 Test Item Value Reference Range Interpretation Comments ANISOCYTOSIS (test code = ANISO) PLATELET ESTIMATE (test code = THOUSAND ADEQUATE PLTEST) CBC W/AUTO [id number] 08:55:00 Test Item Value Reference Range Interpretation Comments WHITE BLOOD CELL (test code = 7.15 x10 3/uL 4.5-11.0 N WBC) RED BLOOD CELL (test code = 2.71 x10 6/uL 3.54-5.02 L RBC) HEMOGLOBIN (test code = HGB) 8.0 g/dL 11.0-15.0 L HEMATOCRIT (test code = HCT) 24.7 % 33.0-45.0 L MEAN CELL VOLUME (test code = 91.1 fL 81.0-99.0 MCV) MEAN CELL HGB (test code = MCH) 29.5 pg 27.0-33.0 N MEAN CELL HGB CONCETRATION 32.4 g/dL 33.0-37.0 L (test code = MCHC) RED CELL DISTRIBUTION WIDTH CV 13.3 % 11.5-14.5 N (test code = RDW) RED CELL DISTRIBUTION WIDTH SD 44.4 fL 37.0-54.0 N (test code = RDW-SD) PLATELET COUNT (test code = 192 x10 3/uL 150-400 PLT) MEAN PLATELET VOLUME (test code 10.3 fL 7.0-9.0 H = MPV) MANUAL DIFF REQUIRED (test code YES = IFF) WBC [id number] 08:55:00 Test Item Value Reference Range Interpretation Comments ANISOCYTOSIS (test code = ANISO) PLATELET ESTIMATE (test code = THOUSAND ADEQUATE PLTEST) BASIC METABOLIC [id number] 08:41:00 Test Item Value Reference Range Interpretation Comments SODIUM (test code = NA) 138 mEq/L 134-147 N POTASSIUM (test code = 3.3 mEq/L 3.4-5.0 L K) CHLORIDE (test code = 102 mEq/L 100-108 N CL) CARBON DIOXIDE (test 28 mEq/L 21-33 N code = CO2) ANION GAP (test code = 11 0-20 N GAP) GLUCOSE (test code = 107 mg/dL 70-110 N GLU) BLOOD UREA NITROGEN 27 mg/dL 7-18 H (test code = BUN) GLOMERULAR FILTRATION 17.3 70-80 L Units of measure = RATE (test code = GFR) ml/mi n/1.73 m2 CREATININE (test code = 2.7 mg/dL 0.6-1.3 H CREAT) CALCIUM (test code = 8.2 mg/dL 8.0-10.5 N CA) [id number] 08:41:00 Test Item Value Reference Range Interpretation Comments PHOSPHOROUS (test code = PHOS) 2.8 MG/DL 2.5-4.9 N [id number] 08:41:00 Test Item Value Reference Range Interpretation Comments MAGNESIUM (test code = MAG) 1.90 mg/dL 1.8-2.4 N CBC W/AUTO [id number] 07:55:00 Test Item Value Reference Range Interpretation Comments WHITE BLOOD CELL (test code = 7.15 x10 3/uL 4.5-11.0 N WBC) RED BLOOD CELL (test code = 2.71 x10 6/uL 3.54-5.02 L RBC) HEMOGLOBIN (test code = HGB) 8.0 g/dL 11.0-15.0 L HEMATOCRIT (test code = HCT) 24.7 % 33.0-45.0 L MEAN CELL VOLUME (test code = 91.1 fL 81.0-99.0 MCV) MEAN CELL HGB (test code = MCH) 29.5 pg 27.0-33.0 N MEAN CELL HGB CONCETRATION 32.4 g/dL 33.0-37.0 L (test code = MCHC) RED CELL DISTRIBUTION WIDTH CV 13.3 % 11.5-14.5 N (test code = RDW) RED CELL DISTRIBUTION WIDTH SD 44.4 fL 37.0-54.0 N (test code = RDW-SD) PLATELET COUNT (test code = 192 x10 3/uL 150-400 PLT) MEAN PLATELET VOLUME (test code 10.3 fL 7.0-9.0 H = MPV) NEUTROPHIL % (test code = NT%) % 56.0-77.0 LYMPHOCYTE % (test code = LY%) % 14.0-32.0 NEUTROPHIL # (test code = NT#) x10 3/uL 2.0-7.6 LYMPHOCYTE # (test code = LY#) x10 3/uL 1.0-3.8 MANUAL DIFF REQUIRED (test code = MDIFF) [id number] 21:52:00 Test Item Value Reference Range Interpretation Comments GLUBED (test code = 145 MG/DL 70-110 H Performe d by certified 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[facility] [id number] 17:18:00 Test Item Value Reference Range Interpretation Comments GLUBED (test code = 120 MG/DL 70-110 H Performe d by certified 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[facility] CBC W/AUTO [id number] 12:24:00 Test Item Value Reference Range Interpretation Comments WHITE BLOOD CELL (test code = 5.64 x10 3/uL 4.5-11.0 N WBC) RED BLOOD CELL (test code = 2.78 x10 6/uL 3.54-5.02 L RBC) HEMOGLOBIN (test code = HGB) 8.4 g/dL 11.0-15.0 L HEMATOCRIT (test code = HCT) 26.3 % 33.0-45.0 L MEAN CELL VOLUME (test code = 94.6 fL 81.0-99.0 N MCV) MEAN CELL HGB (test code = MCH) 30.2 pg 27.0-33.0 N MEAN CELL HGB CONCETRATION 31.9 g/dL 33.0-37.0 L (test code = MCHC) RED CELL DISTRIBUTION WIDTH CV 13.7 % 11.5-14.5 N (test code = RDW) RED CELL DISTRIBUTION WIDTH SD 46.9 fL 37.0-54.0 N (test code = RDW-SD) PLATELET COUNT (test code = 109 x10 3/uL 150-400 L PLT) IMMATURE PLATELET FRACTION 9.2 % 0.9-11.2 N (test code = IPF) MEAN PLATELET VOLUME (test code 11.7 fL 7.0-9.0 H = MPV) NEUTROPHIL % (test code = NT%) 48.4 % 56.0-77.0 L IMMATURE GRANULOCYTE % (test 1.1 % 0.0-2.0 N code = IG%) LYMPHOCYTE % (test code = LY%) 29.3 % 14.0-32.0 N MONOCYTE % (test code = MO%) 19.0 % 4.8-9.0 H EOSINOPHIL % (test code = EO%) 1.8 % 0.3-3.7 N BASOPHIL % (test code = BA%) 0.4 % 0.0-2.0 N NUCLEATED RBC % (test code = 0.0 % 0-0 N NRBC%) NEUTROPHIL # (test code = NT#) 2.74 x10 3/uL 2.0-7.6 N IMMATURE GRANULOCYTE # (test 0.06 x10 3/uL 0.00-0.03 H code = IG#) LYMPHOCYTE # (test code = LY#) 1.65 x10 3/uL 1.0-3.8 N MONOCYTE # (test code = MO#) 1.07 x10 3/uL 0.1-0.8 H EOSINOPHIL # (test code = EO#) 0.10 x10 3/uL 0.0-0.2 N BASOPHIL # (test code = BA#) 0.02 x10 3/uL 0.0-0.2 N NUCLEATED RBC # (test code = 0.00 x10 3/uL 0.0-0.1 N NRBC#) MANUAL DIFF REQUIRED (test code NO = MDIFF) PLT [id number] 12:24:00 Test Item Value Reference Range Interpretation Comments PLATELET ESTIMATE 112-140 THOUSAND ADEQUATE (test code = PLTEST) PLATELET MORPHOLOGY LARGE PLATELETS LARGE PLTS SEEN (test code = PLTMORPH) [id number] 12:20:00 Test Item Value Reference Range Interpretation Comments GLUBED (test code = 156 MG/DL 70-110 H Performe d by certified 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[facility] BASIC METABOLIC [id number] 08:58:00 Test Item Value Reference Range Interpretation Comments SODIUM (test code = NA) 136 mEq/L 134-147 N POTASSIUM (test code = 4.1 mEq/L 3.4-5.0 N K) CHLORIDE (test code = 102 mEq/L 100-108 N CL) CARBON DIOXIDE (test 23 mEq/L 21-33 N code = CO2) ANION GAP (test code = 15 0-20 N GAP) GLUCOSE (test code = 117 mg/dL 70-110 H GLU) BLOOD UREA NITROGEN 31 mg/dL 7-18 H (test code = BUN) GLOMERULAR FILTRATION 15.3 70-80 L Units of measure = RATE (test code = GFR) ml/mi n/1.73 m2 CREATININE (test code = 3.0 mg/dL 0.6-1.3 H CREAT) CALCIUM (test code = 8.1 mg/dL 8.0-10.5 N CA) [id number] 08:58:00 Test Item Value Reference Range Interpretation Comments PHOSPHOROUS (test code = PHOS) 3.3 MG/DL 2.5-4.9 N [id number] 08:58:00 Test Item Value Reference Range Interpretation Comments MAGNESIUM (test code = MAG) 1.70 mg/dL 1.8-2.4 L CBC W/AUTO [id number] 08:09:00 Test Item Value Reference Range Interpretation Comments WHITE BLOOD CELL (test code = 5.64 x10 3/uL 4.5-11.0 N WBC) RED BLOOD CELL (test code = 2.78 x10 6/uL 3.54-5.02 L RBC) HEMOGLOBIN (test code = HGB) 8.4 g/dL 11.0-15.0 L HEMATOCRIT (test code = HCT) 26.3 % 33.0-45.0 L MEAN CELL VOLUME (test code = 94.6 fL 81.0-99.0 N MCV) MEAN CELL HGB (test code = MCH) 30.2 pg 27.0-33.0 N MEAN CELL HGB CONCETRATION 31.9 g/dL 33.0-37.0 L (test code = MCHC) RED CELL DISTRIBUTION WIDTH CV 13.7 % 11.5-14.5 N (test code = RDW) RED CELL DISTRIBUTION WIDTH SD 46.9 fL 37.0-54.0 N (test code = RDW-SD) PLATELET COUNT (test code = 109 x10 3/uL 150-400 L PLT) IMMATURE PLATELET FRACTION 9.2 % 0.9-11.2 N (test code = IPF) MEAN PLATELET VOLUME (test code 11.7 fL 7.0-9.0 H = MPV) NEUTROPHIL % (test code = NT%) 48.4 % 56.0-77.0 L IMMATURE GRANULOCYTE % (test 1.1 % 0.0-2.0 N code = IG%) LYMPHOCYTE % (test code = LY%) 29.3 % 14.0-32.0 N MONOCYTE % (test code = MO%) 19.0 % 4.8-9.0 H EOSINOPHIL % (test code = EO%) 1.8 % 0.3-3.7 N BASOPHIL % (test code = BA%) 0.4 % 0.0-2.0 N NUCLEATED RBC % (test code = 0.0 % 0-0 N NRBC%) NEUTROPHIL # (test code = NT#) 2.74 x10 3/uL 2.0-7.6 N IMMATURE GRANULOCYTE # (test 0.06 x10 3/uL 0.00-0.03 H code = IG#) LYMPHOCYTE # (test code = LY#) 1.65 x10 3/uL 1.0-3.8 N MONOCYTE # (test code = MO#) 1.07 x10 3/uL 0.1-0.8 H EOSINOPHIL # (test code = EO#) 0.10 x10 3/uL 0.0-0.2 N BASOPHIL # (test code = BA#) 0.02 x10 3/uL 0.0-0.2 N NUCLEATED RBC # (test code = 0.00 x10 3/uL 0.0-0.1 N NRBC#) MANUAL DIFF REQUIRED (test code NO = MDIFF) PLT [id number] 08:09:00 Test Item Value Reference Range Interpretation Comments PLATELET ESTIMATE (test code = THOUSAND ADEQUATE PLTEST) CBC W/AUTO [id number] 08:09:00 Test Item Value Reference Range Interpretation Comments WHITE BLOOD CELL (test code = 5.64 x10 3/uL 4.5-11.0 N WBC) RED BLOOD CELL (test code = 2.78 x10 6/uL 3.54-5.02 L RBC) HEMOGLOBIN (test code = HGB) 8.4 g/dL 11.0-15.0 L HEMATOCRIT (test code = HCT) 26.3 % 33.0-45.0 L MEAN CELL VOLUME (test code = 94.6 fL 81.0-99.0 N MCV) MEAN CELL HGB (test code = MCH) 30.2 pg 27.0-33.0 N MEAN CELL HGB CONCETRATION 31.9 g/dL 33.0-37.0 L (test code = MCHC) RED CELL DISTRIBUTION WIDTH CV 13.7 % 11.5-14.5 N (test code = RDW) RED CELL DISTRIBUTION WIDTH SD 46.9 fL 37.0-54.0 N (test code = RDW-SD) PLATELET COUNT (test code = 109 x10 3/uL 150-400 L PLT) IMMATURE PLATELET FRACTION 9.2 % 0.9-11.2 N (test code = IPF) MEAN PLATELET VOLUME (test code 11.7 fL 7.0-9.0 H = MPV) NEUTROPHIL % (test code = NT%) 48.4 % 56.0-77.0 L IMMATURE GRANULOCYTE % (test 1.1 % 0.0-2.0 N code = IG%) LYMPHOCYTE % (test code = LY%) 29.3 % 14.0-32.0 N MONOCYTE % (test code = MO%) 19.0 % 4.8-9.0 H EOSINOPHIL % (test code = EO%) 1.8 % 0.3-3.7 N BASOPHIL % (test code = BA%) 0.4 % 0.0-2.0 N NUCLEATED RBC % (test code = 0.0 % 0-0 N NRBC%) NEUTROPHIL # (test code = NT#) 2.74 x10 3/uL 2.0-7.6 N IMMATURE GRANULOCYTE # (test 0.06 x10 3/uL 0.00-0.03 H code = IG#) LYMPHOCYTE # (test code = LY#) 1.65 x10 3/uL 1.0-3.8 N MONOCYTE # (test code = MO#) 1.07 x10 3/uL 0.1-0.8 H EOSINOPHIL # (test code = EO#) 0.10 x10 3/uL 0.0-0.2 N BASOPHIL # (test code = BA#) 0.02 x10 3/uL 0.0-0.2 N NUCLEATED RBC # (test code = 0.00 x10 3/uL 0.0-0.1 N NRBC#) MANUAL DIFF REQUIRED (test code NO = MDIFF) PLT [id number] 08:09:00 Test Item Value Reference Range Interpretation Comments PLATELET ESTIMATE (test code = THOUSAND ADEQUATE PLTEST) [id number] 08:06:00 Test Item Value Reference Range Interpretation Comments GLUBED (test code = 121 MG/DL 70-110 H Performe d by certified 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[facility] [id number] 20:33:00 Test Item Value Reference Range Interpretation Comments GLUBED (test code = 123 MG/DL 70-110 H Performe d by certified 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[facility] [id number] 16:49:00 Test Item Value Reference Range Interpretation Comments GLUBED (test code = 123 MG/DL 70-110 H Performe d by certified 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[facility] [id number] 11:56:00 Test Item Value Reference Range Interpretation Comments GLUBED (test code = 142 MG/DL 70-110 H Performe d by certified 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4-5.0 N K) CHLORIDE (test code = 100 mEq/L 100-108 N CL) CARBON DIOXIDE (test 28 mEq/L 21-33 N code = CO2) ANION GAP (test code = 13 0-20 N GAP) GLUCOSE (test code = 101 mg/dL 70-110 N GLU) BLOOD UREA NITROGEN 30 mg/dL 7-18 H (test code = BUN) GLOMERULAR FILTRATION 15.3 70-80 L Units of measure = RATE (test code = GFR) ml/mi n/1.73 m2 CREATININE (test code = 3.0 mg/dL 0.6-1.3 H CREAT) CALCIUM (test code = 8.4 mg/dL 8.0-10.5 N CA) [id number] 08:11:00 Test Item Value Reference Range Interpretation Comments PHOSPHOROUS (test code = PHOS) 2.8 MG/DL 2.5-4.9 N [id number] 08:11:00 Test Item Value Reference Range Interpretation Comments MAGNESIUM (test code = MAG) 1.70 mg/dL 1.8-2.4 L CBC W/AUTO [id number] 08:06:00 Test Item Value Reference Range Interpretation Comments WHITE BLOOD CELL (test code = 5.21 x10 3/uL 4.5-11.0 N WBC) RED BLOOD CELL (test code = 2.78 x10 6/uL 3.54-5.02 L RBC) HEMOGLOBIN (test code = HGB) 8.1 g/dL 11.0-15.0 L HEMATOCRIT (test code = HCT) 26.6 % 33.0-45.0 L MEAN CELL VOLUME (test code = 95.7 fL 81.0-99.0 MCV) MEAN CELL HGB (test code = MCH) 29.1 pg 27.0-33.0 N MEAN CELL HGB CONCETRATION 30.5 g/dL 33.0-37.0 L (test code = MCHC) RED CELL DISTRIBUTION WIDTH CV 13.6 % 11.5-14.5 N (test code = RDW) RED CELL DISTRIBUTION WIDTH SD 47.8 fL 37.0-54.0 N (test code = RDW-SD) PLATELET COUNT (test code = 105 x10 3/uL 150-400 L PLT) MEAN PLATELET VOLUME (test code 12.0 fL 7.0-9.0 H = MPV) NEUTROPHIL % (test code = NT%) 52.4 % 56.0-77.0 L IMMATURE GRANULOCYTE % (test 0.4 % 0.0-2.0 N code = IG%) LYMPHOCYTE % (test code = LY%) 30.3 % 14.0-32.0 N MONOCYTE % (test code = MO%) 14.0 % 4.8-9.0 H EOSINOPHIL % (test code = EO%) 2.5 % 0.3-3.7 N BASOPHIL % (test code = BA%) 0.4 % 0.0-2.0 N NUCLEATED RBC % (test code = 0.0 % 0-0 N NRBC%) NEUTROPHIL # (test code = NT#) 2.73 x10 3/uL 2.0-7.6 N IMMATURE GRANULOCYTE # (test 0.02 x10 3/uL 0.00-0.03 N code = IG#) LYMPHOCYTE # (test code = LY#) 1.58 x10 3/uL 1.0-3.8 N MONOCYTE # (test code = MO#) 0.73 x10 3/uL 0.1-0.8 N EOSINOPHIL # (test code = EO#) 0.13 x10 3/uL 0.0-0.2 N BASOPHIL # (test code = BA#) 0.02 x10 3/uL 0.0-0.2 N NUCLEATED RBC # (test code = 0.00 x10 3/uL 0.0-0.1 N NRBC#) MANUAL DIFF REQUIRED (test code NO = MDIFF) [id number] 20:28:00 Test Item Value Reference Range Interpretation Comments GLUBED (test code = 99 MG/DL 70-110 N Performe d by certified 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[facility] [id number] 17:23:00 Test Item Value Reference Range Interpretation Comments GLUBED (test code = 80 MG/DL 70-110 N Performe d by certified 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[facility] [id number] 13:32:00 Test Item Value Reference Range Interpretation Comments GLUBED (test code = 151 MG/DL 70-110 H Performe d by certified 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[facility] [id number] 09:59:00 Test Item Value Reference Range Interpretation Comments GLUBED (test code = 111 MG/DL 70-110 H Performe d by certified 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[facility] BASIC METABOLIC [id number] 08:10:00 Test Item Value Reference Range Interpretation Comments SODIUM (test code = NA) 137 mEq/L 134-147 N POTASSIUM (test code = 3.3 mEq/L 3.4-5.0 L K) CHLORIDE (test code = 99 mEq/L 100-108 L CL) CARBON DIOXIDE (test 30 mEq/L 21-33 N code = CO2) ANION GAP (test code = 11 0-20 N GAP) GLUCOSE (test code = 114 mg/dL 70-110 H GLU) BLOOD UREA NITROGEN 26 mg/dL 7-18 H (test code = BUN) GLOMERULAR FILTRATION 16.6 70-80 L Units of measure = RATE (test code = GFR) ml/mi n/1.73 m2 CREATININE (test code = 2.8 mg/dL 0.6-1.3 H CREAT) CALCIUM (test code = 7.9 mg/dL 8.0-10.5 L CA) [id number] 08:10:00 Test Item Value Reference Range Interpretation Comments PHOSPHOROUS (test code = PHOS) 2.6 MG/DL 2.5-4.9 N [id number] 08:10:00 Test Item Value Reference Range Interpretation Comments MAGNESIUM (test code = MAG) 1.70 mg/dL 1.8-2.4 L CBC W/AUTO [id number] 07:41:00 Test Item Value Reference Range Interpretation Comments WHITE BLOOD CELL (test code = 5.89 x10 3/uL 4.5-11.0 N WBC) RED BLOOD CELL (test code = 2.77 x10 6/uL 3.54-5.02 L RBC) HEMOGLOBIN (test code = HGB) 8.3 g/dL 11.0-15.0 L HEMATOCRIT (test code = HCT) 25.5 % 33.0-45.0 L MEAN CELL VOLUME (test code = 92.1 fL 81.0-99.0 N MCV) MEAN CELL HGB (test code = MCH) 30.0 pg 27.0-33.0 N MEAN CELL HGB CONCETRATION 32.5 g/dL 33.0-37.0 L (test code = MCHC) RED CELL DISTRIBUTION WIDTH CV 13.5 % 11.5-14.5 N (test code = RDW) RED CELL DISTRIBUTION WIDTH SD 45.3 fL 37.0-54.0 N (test code = RDW-SD) PLATELET COUNT (test code = 106 x10 3/uL 150-400 L PLT) IMMATURE PLATELET FRACTION 5.0 % 0.9-11.2 N (test code = IPF) MEAN PLATELET VOLUME (test code 11.7 fL 7.0-9.0 H = MPV) NEUTROPHIL % (test code = NT%) 56.6 % 56.0-77.0 N IMMATURE GRANULOCYTE % (test 0.3 % 0.0-2.0 N code = IG%) LYMPHOCYTE % (test code = LY%) 33.1 % 14.0-32.0 H MONOCYTE % (test code = MO%) 8.1 % 4.8-9.0 N EOSINOPHIL % (test code = EO%) 1.7 % 0.3-3.7 N BASOPHIL % (test code = BA%) 0.2 % 0.0-2.0 N NUCLEATED RBC % (test code = 0.0 % 0-0 N NRBC%) NEUTROPHIL # (test code = NT#) 3.33 x10 3/uL 2.0-7.6 N IMMATURE GRANULOCYTE # (test 0.02 x10 3/uL 0.00-0.03 N code = IG#) LYMPHOCYTE # (test code = LY#) 1.95 x10 3/uL 1.0-3.8 N MONOCYTE # (test code = MO#) 0.48 x10 3/uL 0.1-0.8 N EOSINOPHIL # (test code = EO#) 0.10 x10 3/uL 0.0-0.2 N BASOPHIL # (test code = BA#) 0.01 x10 3/uL 0.0-0.2 N NUCLEATED RBC # (test code = 0.00 x10 3/uL 0.0-0.1 N NRBC#) MANUAL DIFF REQUIRED (test code NO = MDIFF) [id number] 07:10:00 Test Item Value Reference Range Interpretation Comments HAPTOGLOBIN (test code 173 mg/dL 42-346 Perfo rmed At: BN = HAPT) [facility] [address] [place], [place] [id number] ra [place] Ph:[phone] [id number] 22:23:00 Test Item Value Reference Range Interpretation Comments GLUBED (test code = 218 MG/DL 70-110 H Performe d by certified 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[facility] [id number] 16:37:00 Test Item Value Reference Range Interpretation Comments GLUBED (test code = 260 MG/DL 70-110 H Performe d by certified 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[facility] [id number] 12:17:00 Test Item Value Reference Range Interpretation Comments GLUBED (test code = 178 MG/DL 70-110 H Performe d by certified 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[facility] [id number] 08:26:00 Test Item Value Reference Range Interpretation Comments GLUBED (test code = 178 MG/DL 70-110 H Performe d by certified 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[facility] CBC W/AUTO [id number] 08:11:00 Test Item Value Reference Range Interpretation Comments WHITE BLOOD CELL (test code = 9.66 x10 3/uL 4.5-11.0 N WBC) RED BLOOD CELL (test code = 2.98 x10 6/uL 3.54-5.02 L RBC) HEMOGLOBIN (test code = HGB) 8.9 g/dL 11.0-15.0 L HEMATOCRIT (test code = HCT) 27.9 % 33.0-45.0 L MEAN CELL VOLUME (test code = 93.6 fL 81.0-99.0 N MCV) MEAN CELL HGB (test code = MCH) 29.9 pg 27.0-33.0 N MEAN CELL HGB CONCETRATION 31.9 g/dL 33.0-37.0 L (test code = MCHC) RED CELL DISTRIBUTION WIDTH CV 13.9 % 11.5-14.5 N (test code = RDW) RED CELL DISTRIBUTION WIDTH SD 47.3 fL 37.0-54.0 N (test code = RDW-SD) PLATELET COUNT (test code = 71 x10 3/uL 150-400 L PLT) MEAN PLATELET VOLUME (test code 12.8 fL 7.0-9.0 H = MPV) NEUTROPHIL % (test code = NT%) 83.0 % 56.0-77.0 H IMMATURE GRANULOCYTE % (test 0.4 % 0.0-2.0 N code = IG%) LYMPHOCYTE % (test code = LY%) 10.0 % 14.0-32.0 L MONOCYTE % (test code = MO%) 5.7 % 4.8-9.0 N EOSINOPHIL % (test code = EO%) 0.7 % 0.3-3.7 N BASOPHIL % (test code = BA%) 0.2 % 0.0-2.0 N NUCLEATED RBC % (test code = 0.0 % 0-0 N NRBC%) NEUTROPHIL # (test code = NT#) 8.01 x10 3/uL 2.0-7.6 H IMMATURE GRANULOCYTE # (test 0.04 x10 3/uL 0.00-0.03 H code = IG#) LYMPHOCYTE # (test code = LY#) 0.97 x10 3/uL 1.0-3.8 L MONOCYTE # (test code = MO#) 0.55 x10 3/uL 0.1-0.8 N EOSINOPHIL # (test code = EO#) 0.07 x10 3/uL 0.0-0.2 N BASOPHIL # (test code = BA#) 0.02 x10 3/uL 0.0-0.2 N NUCLEATED RBC # (test code = 0.00 x10 3/uL 0.0-0.1 N NRBC#) MANUAL DIFF REQUIRED (test code NO = MDIFF) BASIC METABOLIC [id number] 07:32:00 Test Item Value Reference Range Interpretation Comments SODIUM (test code = NA) 138 mEq/L 134-147 N POTASSIUM (test code = 3.8 mEq/L 3.4-5.0 N K) CHLORIDE (test code = 99 mEq/L 100-108 L CL) CARBON DIOXIDE (test 32 mEq/L 21-33 N code = CO2) ANION GAP (test code = 11 0-20 N GAP) GLUCOSE (test code = 174 mg/dL 70-110 H GLU) BLOOD UREA NITROGEN 25 mg/dL 7-18 H (test code = BUN) GLOMERULAR FILTRATION 18.1 70-80 L Units of measure = RATE (test code = GFR) ml/mi n/1.73 m2 CREATININE (test code = 2.6 mg/dL 0.6-1.3 H CREAT) CALCIUM (test code = 8.1 mg/dL 8.0-10.5 N CA) [id number] 07:32:00 Test Item Value Reference Range Interpretation Comments PHOSPHOROUS (test code = PHOS) 3.2 MG/DL 2.5-4.9 N [id number] 07:32:00 Test Item Value Reference Range Interpretation Comments MAGNESIUM (test code = MAG) 1.80 mg/dL 1.8-2.4 N [id number] 20:32:00 Test Item Value Reference Range Interpretation Comments GLUBED (test code = 136 MG/DL 70-110 H Performe d by certified 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[facility] [id number] 16:35:00 Test Item Value Reference Range Interpretation Comments GLUBED (test code = 114 MG/DL 70-110 H Performe d by certified 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[facility] [id number] 16:35:00 Test Item Value Reference Range Interpretation Comments GLUBED (test code = 114 MG/DL 70-110 H Performe d by certified 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[facility] [id number] 11:59:00 Test Item Value Reference Range Interpretation Comments GLUBED (test code = 162 MG/DL 70-110 H Performe d by certified 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[facility] [id number] 09:04:00 Test Item Value Reference Range Interpretation Comments GLUBED (test code = 149 MG/DL 70-110 H Performe d by certified 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[facility] B-TYPE NATRIURETIC [id number] 09:00:00 Test Item Value Reference Range Interpretation Comments B-TYPE NATRIURETIC PEPTIDE (test 492.2 PG/ML 0-100 H code = BNP) BASIC METABOLIC [id number] 09:00:00 Test Item Value Reference Range Interpretation Comments SODIUM (test code = NA) 140 mEq/L 134-147 N POTASSIUM (test code = 3.7 mEq/L 3.4-5.0 N K) CHLORIDE (test code = 102 mEq/L 100-108 N CL) CARBON DIOXIDE (test 32 mEq/L 21-33 N code = CO2) ANION GAP (test code = 10 0-20 N GAP) GLUCOSE (test code = 155 mg/dL 70-110 H GLU) BLOOD UREA NITROGEN 23 mg/dL 7-18 H (test code = BUN) GLOMERULAR FILTRATION 19.8 70-80 L Units of measure = RATE (test code = GFR) ml/mi n/1.73 m2 CREATININE (test code = 2.4 mg/dL 0.6-1.3 H CREAT) CALCIUM (test code = 7.2 mg/dL 8.0-10.5 L CA) HEPATIC FUNCTION [id number] 09:00:00 Test Item Value Reference Range Interpretation Comments TOTAL PROTEIN (test code = PROT) 4.5 g/dL 6.4-8.2 L ALBUMIN (test code = ALB) 1.90 g/dL 3.4-5.0 L BILIRUBIN TOTAL (test code = BILT) 0.3 MG/DL <1.5 N BILIRUBIN DIRECT (test code = 0.10 MG/DL 0.0-0.30 N BILD) BILIRUBIN INDIRECT (test code = 0.20 MG/DL BILIND) SGOT/AST (test code = AST) 31 IUnit/L 15-37 N SGPT/ALT (test code = ALT) 39 IUnit/L 15-65 N ALKALINE PHOSPHATASE TOTAL (test 70 IUnit/L 20-125 N code = ALKP) [id number] 09:00:00 Test Item Value Reference Range Interpretation Comments PHOSPHOROUS (test code = PHOS) 3.5 MG/DL 2.5-4.9 N LACTIC DEHYDROGENASE(LDH)2019-09-30 09:00:00 Test Item Value Reference Range Interpretation Comments LACTIC DEHYDROGENASE(LDH) (test 270 IUnits/L 84-246 H code = LDH) [id number] 09:00:00 Test Item Value Reference Range Interpretation Comments MAGNESIUM (test code = MAG) 1.90 mg/dL 1.8-2.4 N PROTHROMBIN [id number] 08:39:00 Test Item Value Reference Range Interpretation Comments PROTHROMBIN TIME 14.3 SECONDS 9.3-12.9 H PATIENT (test code = PTP) INTERNATIONAL NORMAL 1.3 0.8-1.2 H TARGET INR BY RATIO (test code = INDICATIO N Indication INR) INR1. Prophylax is of venous thrombos is 2.0 - 3.0 (orthoped ic surgery), Proph ylaxis of venous throm bosis (other than hig h-risk surgery), Treat ment of Deep Vein Thrombosis/Pulm onary Embolism, Preve ntion of systemic emb olism - Tissue heart va lves, Acute Myocardia l Infarction (to prevent systemic emboli sm), Valvular heart disease, Atrial Fibrillation, Bileaflet mecha nical valve in aortic position.2. Mec hanical prosthetic valv es (high risk), 2. 5 - 3.5 Presence of Lup us Anticoagulant o r Antiphospholipi d Antibodies, Pre vention of systemic emb olism - Acute Myocardia l Infarction (to prevent recurrent infar ct). 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 - XR CHEST 1 [id number] 07:34:00 FAX: Joel Falk [phone] [place]: St: ADM FAX: Helga Escalante NP [phone] ---- Name: MAC AGUSTIN [facility] : 1945 Age/S: 74/F [address] [place] [address] Unit #: [id number] Loc: [place] [address] Phys: Helga Escalante NP Acct: [id number] Dis Date: Status: ADM IN PHONE #: [phone] Exam Date: 09/30/2019513 FAX #: [phone] Reason: PNEUMONIA EXAMS: CPT CODE: [id number] XR CHEST 1 V [id number] Chest single view 09/30/2019 HISTORY: Pneumonia Comparison is made to 09/29/2019 FINDINGS: Bilateral pleural effusions and bibasilar atelectasis/infiltrates have decreased since prior study . Mild cardiomegaly is unchanged. Aorta contains calcifications. Interstitial edema has decreased. Right jugular line has been removed. IMPRESSION: 1. Decreasing bilateral pleural effusions with decreasing bibasilar atelectasis/infiltrates. 2. Decreasing interstitial edema. 3. Removal of right jugular line. SL: [id number] at 0734 Reported and signed by: Jose Dumont M.D. CC: Joel Myers MD; Helga Escalante NP Technologist: RT Inga(Bonifacio) Trnscrd Date/Time/By: 09/30/2019 (0734) : By: [email or web address] Orig P rint D/T: S: 09/30/2019 (0737) PAGE 1 Signed Report- XR ABDOMEN 1V (KUB) 2019-09-30 07:33:00 FAX: Joel Falk [phone] [place]: St: ADM FAX: Helga Escalante NP [phone] ---- Name: MAC AGUSTIN [facility] : 1945 Age/S: 74/F [address] [place] [address] Unit #: [id number] Loc: [address] [address] Phys: Helga Escalante NP Acct: [id number] Dis Date: Status: ADM IN PHONE #: [phone] Exam Date: 09/30/2019513 FAX #: [phone] Reason: DIARRHEA/ABDOMINAL DISTENTION EXAMS: CPTCODE: [id number] XR ABDOMEN 1V (KUB) [id number] Abdomen single view 09/30/2019 HISTORY: Diarrhea. Abdominal distention Comparison is made to CT 09/26/2019 FINDINGS: There is diffuse demineralization. Vascular calcifications in the pelvis are present. No bowel dilatation is present. Rectal gas is present. Surgical clips in the right upper quadrant likely represent previous cholecystectomy. IMPRESSION: Nonobstructed bowel gas pattern. SL: [id number] Electronically Signed by Blanche Dumont on 09/30/2019 at 0733 Reported and signed by: Jose Dumont M.D. CC: Joel Boateng; Helga Escalante NP Technologist: RT Inga(Bonifacio) Trnscrd Date/Time/By: 09/30/2019 (0733) : By: [email or web address] Orig Print D/T: S: 09/30/2019 (0735) PAGE 1 Signed ReportCOMPREHENSIVE METABOLIC [id number] 06:15:00 Test Item Value Reference Range Interpretation Comments SODIUM (test code = NA) 138 mEq/L 134-147 N POTASSIUM (test code = 3.5 mEq/L 3.4-5.0 N K) CHLORIDE (test code = 100 mEq/L 100-108 N CL) CARBON DIOXIDE (test 34 mEq/L 21-33 H code = CO2) ANION GAP (test code = 8 0-20 N GAP) GLUCOSE (test code = 270 mg/dL 70-110 H GLU) BLOOD UREA NITROGEN 22 mg/dL 7-18 H (test code = BUN) GLOMERULAR FILTRATION 19.8 70-80 L Units of measure = RATE (test code = GFR) ml/mi n/1.73 m2 CREATININE (test code = 2.4 mg/dL 0.6-1.3 H CREAT) TOTAL PROTEIN (test 5.0 g/dL 6.4-8.2 L code = PROT) ALBUMIN (test code = 1.80 g/dL 3.4-5.0 L ALB) CALCIUM (test code = 7.4 mg/dL 8.0-10.5 L CA) BILIRUBIN TOTAL (test 0.3 MG/DL <1.5 N code = BILT) SGOT/AST (test code = 31 IUnit/L 15-37 N AST) SGPT/ALT (test code = 39 IUnit/L 15-65 N ALT) ALKALINE PHOSPHATASE 69 IUnit/L 20-125 N TOTAL (test code = ALKP) [id number] 06:15:00 Test Item Value Reference Range Interpretation Comments PHOSPHOROUS (test code = PHOS) 3.2 MG/DL 2.5-4.9 N [id number] 06:15:00 Test Item Value Reference Range Interpretation Comments MAGNESIUM (test code = MAG) 1.90 mg/dL 1.8-2.4 N CALCIUM [id number] 06:15:00 Test Item Value Reference Range Interpretation Comments CALCIUM IONIZED (test code = DMITRY) 1.05 MMOL/L 1.12-1.32 L LACTIC [id number] 06:06:00 Test Item Value Reference Range Interpretation Comments LACTIC ACID (test code = LACT) 1.3 mmol/L 0.4-1.9 N COMPREHENSIVE METABOLIC [id number] 05:58:00 Test Item Value Reference Range Interpretation Comments SODIUM (test code = NA) mEq/L 134-147 POTASSIUM (test code = K) mEq/L 3.4-5.0 CHLORIDE (test code = CL) mEq/L 100-108 CARBON DIOXIDE (test code = CO2) mEq/L 21-33 ANION GAP (test code = GAP) 0-20 GLUCOSE (test code = GLU) mg/dL 70-110 BLOOD UREA NITROGEN (test code = mg/dL 7-18 BUN) GLOMERULAR FILTRATION RATE (test 70-80 code = GFR) CREATININE (test code = CREAT) mg/dL 0.6-1.3 TOTAL PROTEIN (test code = PROT) g/dL 6.4-8.2 ALBUMIN (test code = ALB) g/dL 3.4-5.0 CALCIUM (test code = CA) mg/dL 8.0-10.5 BILIRUBIN TOTAL (test code = BILT) MG/DL <1.5 SGOT/AST (test code = AST) IUnit/L 15-37 SGPT/ALT (test code = ALT) IUnit/L 15-65 ALKALINE PHOSPHATASE TOTAL (test IUnit/L 20-125 code = ALKP) [id number] 05:58:00 Test Item Value Reference Range Interpretation Comments PHOSPHOROUS (test code = PHOS) MG/DL 2.5-4.9 [id number] 05:58:00 Test Item Value Reference Range Interpretation Comments MAGNESIUM (test code = MAG) mg/dL 1.8-2.4 CALCIUM [id number] 05:58:00 Test Item Value Reference Range Interpretation Comments CALCIUM IONIZED (test code = DMITRY) 1.05 MMOL/L 1.12-1.32 L CBC W/AUTO [id number] 05:48:00 Test Item Value Reference Range Interpretation Comments WHITE BLOOD CELL (test code = 10.57 x10 3/uL 4.5-11.0 N WBC) RED BLOOD CELL (test code = 2.60 x10 6/uL 3.54-5.02 L RBC) HEMOGLOBIN (test code = HGB) 7.8 g/dL 11.0-15.0 L HEMATOCRIT (test code = HCT) 24.0 % 33.0-45.0 L MEAN CELL VOLUME (test code = 92.3 fL 81.0-99.0 MCV) MEAN CELL HGB (test code = 30.0 pg 27.0-33.0 N MCH) MEAN CELL HGB CONCETRATION 32.5 g/dL 33.0-37.0 L (test code = MCHC) RED CELL DISTRIBUTION WIDTH CV 14.0 % 11.5-14.5 N (test code = RDW) RED CELL DISTRIBUTION WIDTH SD 47.2 fL 37.0-54.0 N (test code = RDW-SD) PLATELET COUNT (test code = 60 x10 3/uL 150-400 L PLT) MEAN PLATELET VOLUME (test 12.3 fL 7.0-9.0 H code = MPV) NEUTROPHIL % (test code = NT%) 81.0 % 56.0-77.0 H IMMATURE GRANULOCYTE % (test 0.5 % 0.0-2.0 N code = IG%) LYMPHOCYTE % (test code = LY%) 12.7 % 14.0-32.0 L MONOCYTE % (test code = MO%) 5.2 % 4.8-9.0 N EOSINOPHIL % (test code = EO%) 0.5 % 0.3-3.7 N BASOPHIL % (test code = BA%) 0.1 % 0.0-2.0 N NUCLEATED RBC % (test code = 0.0 % 0-0 N NRBC%) NEUTROPHIL # (test code = NT#) 8.57 x10 3/uL 2.0-7.6 H IMMATURE GRANULOCYTE # (test 0.05 x10 3/uL 0.00-0.03 H code = IG#) LYMPHOCYTE # (test code = LY#) 1.34 x10 3/uL 1.0-3.8 N MONOCYTE # (test code = MO#) 0.55 x10 3/uL 0.1-0.8 N EOSINOPHIL # (test code = EO#) 0.05 x10 3/uL 0.0-0.2 N BASOPHIL # (test code = BA#) 0.01 x10 3/uL 0.0-0.2 N NUCLEATED RBC # (test code = 0.00 x10 3/uL 0.0-0.1 N NRBC#) MANUAL DIFF REQUIRED (test NO code = MDIFF) BASIC METABOLIC [id number] 00:27:00 Test Item Value Reference Range Interpretation Comments SODIUM (test code = NA) 139 mEq/L 134-147 N POTASSIUM (test code = 3.9 mEq/L 3.4-5.0 N K) CHLORIDE (test code = 101 mEq/L 100-108 N CL) CARBON DIOXIDE (test 34 mEq/L 21-33 H code = CO2) ANION GAP (test code = 8 0-20 N GAP) GLUCOSE (test code = 231 mg/dL 70-110 H GLU) BLOOD UREA NITROGEN 23 mg/dL 7-18 H (test code = BUN) GLOMERULAR FILTRATION 19.8 70-80 L Units of measure = RATE (test code = GFR) ml/mi n/1.73 m2 CREATININE (test code = 2.4 mg/dL 0.6-1.3 H CREAT) CALCIUM (test code = 7.6 mg/dL 8.0-10.5 L CA) [id number] 00:27:00 Test Item Value Reference Range Interpretation Comments PHOSPHOROUS (test code = PHOS) 3.2 MG/DL 2.5-4.9 N [id number] 00:27:00 Test Item Value Reference Range Interpretation Comments MAGNESIUM (test code = MAG) 1.80 mg/dL 1.8-2.4 N LACTIC [id number] 17:55:00 Test Item Value Reference Range Interpretation Comments LACTIC ACID (test code = LACT) 1.2 mmol/L 0.4-1.9 N BASIC METABOLIC [id number] 17:54:00 Test Item Value Reference Range Interpretation Comments SODIUM (test code = NA) 139 mEq/L 134-147 N POTASSIUM (test code = 3.7 mEq/L 3.4-5.0 N K) CHLORIDE (test code = 103 mEq/L 100-108 N CL) CARBON DIOXIDE (test 31 mEq/L 21-33 N code = CO2) ANION GAP (test code = 9 0-20 N GAP) GLUCOSE (test code = 186 mg/dL 70-110 H GLU) BLOOD UREA NITROGEN 21 mg/dL 7-18 H (test code = BUN) GLOMERULAR FILTRATION 23.2 70-80 L Units of measure = RATE (test code = GFR) ml/mi n/1.73 m2 CREATININE (test code = 2.1 mg/dL 0.6-1.3 H CREAT) CALCIUM (test code = 7.0 mg/dL 8.0-10.5 L CA) [id number] 17:54:00 Test Item Value Reference Range Interpretation Comments PHOSPHOROUS (test code = PHOS) 2.8 MG/DL 2.5-4.9 N [id number] 17:54:00 Test Item Value Reference Range Interpretation Comments MAGNESIUM (test code = MAG) 2.00 mg/dL 1.8-2.4 N BASIC METABOLIC [id number] 17:48:00 Test Item Value Reference Range Interpretation Comments SODIUM (test code = NA) 139 mEq/L 134-147 N POTASSIUM (test code = K) 3.7 mEq/L 3.4-5.0 N CHLORIDE (test code = CL) 103 mEq/L 100-108 N CARBON DIOXIDE (test code = CO2) 31 mEq/L 21-33 N ANION GAP (test code = GAP) 9 0-20 N GLUCOSE (test code = GLU) 186 mg/dL 70-110 H BLOOD UREA NITROGEN (test code = 21 mg/dL 7-18 H BUN) GLOMERULAR FILTRATION RATE (test 70-80 code = GFR) CREATININE (test code = CREAT) mg/dL 0.6-1.3 CALCIUM (test code = CA) 7.0 mg/dL 8.0-10.5 L [id number] 17:48:00 Test Item Value Reference Range Interpretation Comments PHOSPHOROUS (test code = PHOS) MG/DL 2.5-4.9 [id number] 17:48:00 Test Item Value Reference Range Interpretation Comments MAGNESIUM (test code = MAG) 2.00 mg/dL 1.8-2.4 N [id number] 17:15:00 Test Item Value Reference Range Interpretation Comments GLUBED (test code = 154 MG/DL 70-110 H Performe d by certified 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[facility] [id number] 17:14:00 Test Item Value Reference Range Interpretation Comments GLUBED (test code = 143 MG/DL 70-110 H Performe d by certified 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[facility] [id number] 17:14:00 Test Item Value Reference Range Interpretation Comments GLUBED (test code = 112 MG/DL 70-110 H Performe d by certified 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[facility] [id number] 17:14:00 Test Item Value Reference Range Interpretation Comments GLUBED (test code = 79 MG/DL 70-110 N Performe d by certified 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[facility] BASIC 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 [id number] 12:59:00 Test Item Value Reference Range Interpretation Comments SODIUM (test code = NA) 141 mEq/L 134-147 N POTASSIUM (test code = 4.5 mEq/L 3.4-5.0 K) CHLORIDE (test code = 104 mEq/L 100-108 N CL) CARBON DIOXIDE (test 31 mEq/L 21-33 N code = CO2) ANION GAP (test code = 11 0-20 N GAP) GLUCOSE (test code = 156 mg/dL 70-110 H GLU) BLOOD UREA NITROGEN 19 mg/dL 7-18 H (test code = BUN) GLOMERULAR FILTRATION 23.2 70-80 L Units of measure = RATE (test code = GFR) ml/mi n/1.73 m2 CREATININE (test code = 2.1 mg/dL 0.6-1.3 H CREAT) CALCIUM (test code = 7.3 mg/dL 8.0-10.5 L CA) [id number] 12:59:00 Test Item Value Reference Range Interpretation Comments PHOSPHOROUS (test code = PHOS) 3.1 MG/DL 2.5-4.9 [id number] 12:59:00 Test Item Value Reference Range Interpretation Comments MAGNESIUM (test code = MAG) 1.90 mg/dL 1.8-2.4 N LACTIC ACID [id number] 10:16:00 Test Item Value Reference Range Interpretation Comments LACTIC ACID REPEAT (test code = 2.1 mmol/l 0.4-1.9 H LACTR) - XR CHEST 1 [id number] 07:08:00 FAX: Joel Falk [phone] [place]: St: ADM FAX: Marisabel Berkowitz DO [phone] ------- Name: MAC AGUSTIN Jaki [facility] : 1945 Age/S: 74/F [address] [place] [address] Unit #: [id number] Loc: G.M317 [place] [address] Phys: Marisabel Chu DO Acct: [id number] Dis Date: Status: ADM IN PHONE #: [phone] Exam Date: 09/29/2019 05 FAX #: [phone] Reason: SOB EXAMS: CPT CODE: [id number] XR CHEST 1 V [id number] CHEST RADIOGRAPH ONE VIEW 09/29/2019 AT 0507 HOURS. CLINICAL HISTORY: Shortness of breath. COMPARISON STUDIES: Chest one view 09/27/[address] 09/26/2019. FINDINGS: One view of the chest was obtained. Developing moderate bilateral pleural effusions layering posteriorly with compressive atelectasis and with increasing dense left retrocardiac opacity. Severe pulmonary vascular congestion and or interstitial edema is noted. The cardiac silhouette is enlarged with heavy aortic calcification. The right IJ central venous catheter tip projects at the level of atriocaval junction. Diffuse osteopenia with moderate cervical and thoracic spondylosis. No destructive bone lesions. IMPRESSION: 1. Severe pulmonary vascular congestion and or pulmonary edema with developing moderate bilateral layering pleural effusions. 2. Developing dense left retrocardiac opacity, probably representing atelectasis or early consolidation. 3. Enlarged cardiac silhouette. SL: [id number] at 0708 Reported and signed by: Scott Duran M.D. CC: Joel Myers MD; Marisabel Chu DO Technologist: Niurka Peña RT(R) Trnscrd Date/Time/B y: 09/29/2019 (707) : By: [email or web address] Orig Print D/T: S: 09/29/2019 (711) PAGE 1 Signed ReportB-TYPE NATRIURETIC [id number] 05:54:00 Test Item Value Reference Range Interpretation Comments B-TYPE NATRIURETIC PEPTIDE (test 546.7 PG/ML 0-100 H code = BNP) [id number] 05:31:00 Test Item Value Reference Range Interpretation Comments HGBA1C% (test code = HGBA1C%) 6.0 %A1C 4.8-6.0 N BASIC METABOLIC [id number] 05:30:00 Test Item Value Reference Range Interpretation Comments SODIUM (test code = NA) 142 mEq/L 134-147 N POTASSIUM (test code = 2.7 mEq/L 3.4-5.0 LL K) CHLORIDE (test code = 103 mEq/L 100-108 N CL) CARBON DIOXIDE (test 32 mEq/L 21-33 N code = CO2) ANION GAP (test code = 10 0-20 N GAP) GLUCOSE (test code = 109 mg/dL 70-110 N GLU) BLOOD UREA NITROGEN 19 mg/dL 7-18 H (test code = BUN) GLOMERULAR FILTRATION 21.9 70-80 L Units of measure = RATE (test code = GFR) ml/mi n/1.73 m2 CREATININE (test code = 2.2 mg/dL 0.6-1.3 H CREAT) CALCIUM (test code = 7.2 mg/dL 8.0-10.5 L CA) [id number] 05:30:00 Test Item Value Reference Range Interpretation Comments PHOSPHOROUS (test code = PHOS) 1.4 MG/DL 2.5-4.9 L [id number] 05:30:00 Test Item Value Reference Range Interpretation Comments MAGNESIUM (test code = MAG) 2.00 mg/dL 1.8-2.4 N ACETONE [id number] 05:30:00 Test Item Value Reference Range Interpretation Comments ACETONE QUANT (test NEGATIVE - <20mg/dL NEG - <20 code = ACETN) mg/dL BASIC METABOLIC [id number] 05:29:00 Test Item Value Reference Range Interpretation Comments SODIUM (test code = NA) mEq/L 134-147 POTASSIUM (test code = K) mEq/L 3.4-5.0 CHLORIDE (test code = CL) mEq/L 100-108 CARBON DIOXIDE (test code = CO2) mEq/L 21-33 ANION GAP (test code = GAP) 0-20 GLUCOSE (test code = GLU) mg/dL 70-110 BLOOD UREA NITROGEN (test code = BUN) mg/dL 7-18 GLOMERULAR FILTRATION RATE (test code 70-80 = GFR) CREATININE (test code = CREAT) mg/dL 0.6-1.3 CALCIUM (test code = CA) mg/dL 8.0-10.5 [id number] 05:29:00 Test Item Value Reference Range Interpretation Comments PHOSPHOROUS (test code = PHOS) MG/DL 2.5-4.9 [id number] 05:29:00 Test Item Value Reference Range Interpretation Comments MAGNESIUM (test code = MAG) mg/dL 1.8-2.4 ACETONE [id number] 05:29:00 Test Item Value Reference Range Interpretation Comments ACETONE QUANT (test NEGATIVE - <20mg/dL NEG - <20 code = ACETN) mg/dL LACTIC [id number] 05:26:00 Test Item Value Reference Range Interpretation Comments LACTIC ACID (test code = LACT) 4.0 mmol/L 0.4-1.9 H CBC W/AUTO [id number] 05:08:00 Test Item Value Reference Range Interpretation Comments WHITE BLOOD CELL (test code = 13.57 x10 3/uL 4.5-11.0 H WBC) RED BLOOD CELL (test code = 2.58 x10 6/uL 3.54-5.02 L RBC) HEMOGLOBIN (test code = HGB) 7.8 g/dL 11.0-15.0 L HEMATOCRIT (test code = HCT) 23.0 % 33.0-45.0 L MEAN CELL VOLUME (test code = 89.1 fL 81.0-99.0 MCV) MEAN CELL HGB (test code = 30.2 pg 27.0-33.0 N MCH) MEAN CELL HGB CONCETRATION 33.9 g/dL 33.0-37.0 N (test code = MCHC) RED CELL DISTRIBUTION WIDTH CV 14.0 % 11.5-14.5 N (test code = RDW) RED CELL DISTRIBUTION WIDTH SD 45.7 fL 37.0-54.0 N (test code = RDW-SD) PLATELET COUNT (test code = 81 x10 3/uL 150-400 L PLT) MEAN PLATELET VOLUME (test 12.0 fL 7.0-9.0 H code = MPV) NEUTROPHIL % (test code = NT%) 86.6 % 56.0-77.0 H IMMATURE GRANULOCYTE % (test 1.5 % 0.0-2.0 N code = IG%) LYMPHOCYTE % (test code = LY%) 7.1 % 14.0-32.0 L MONOCYTE % (test code = MO%) 4.6 % 4.8-9.0 L EOSINOPHIL % (test code = EO%) 0.1 % 0.3-3.7 L BASOPHIL % (test code = BA%) 0.1 % 0.0-2.0 N NUCLEATED RBC % (test code = 0.0 % 0-0 N NRBC%) NEUTROPHIL # (test code = NT#) 11.76 x10 3/uL 2.0-7.6 H IMMATURE GRANULOCYTE # (test 0.20 x10 3/uL 0.00-0.03 H code = IG#) LYMPHOCYTE # (test code = LY#) 0.96 x10 3/uL 1.0-3.8 L MONOCYTE # (test code = MO#) 0.62 x10 3/uL 0.1-0.8 N EOSINOPHIL # (test code = EO#) 0.01 x10 3/uL 0.0-0.2 N BASOPHIL # (test code = BA#) 0.02 x10 3/uL 0.0-0.2 N NUCLEATED RBC # (test code = 0.00 x10 3/uL 0.0-0.1 N NRBC#) MANUAL DIFF REQUIRED (test NO code = MDIFF) [id number] 01:50:00 Test Item Value Reference Range Interpretation Comments GLUBED (test code = 134 MG/DL 70-110 H Performe d by certified 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[facility] BASIC 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 [id number] 00:45:00 Test Item Value Reference Range Interpretation Comments SODIUM (test code = NA) 143 mEq/L 134-147 N POTASSIUM (test code = 3.5 mEq/L 3.4-5.0 N K) CHLORIDE (test code = 104 mEq/L 100-108 N CL) CARBON DIOXIDE (test 30 mEq/L 21-33 code = CO2) ANION GAP (test code = 13 0-20 N GAP) GLUCOSE (test code = 128 mg/dL 70-110 H GLU) BLOOD UREA NITROGEN 20 mg/dL 7-18 H (test code = BUN) GLOMERULAR FILTRATION 23.2 70-80 L Units of measure = RATE (test code = GFR) ml/mi n/1.73 m2 CREATININE (test code = 2.1 mg/dL 0.6-1.3 H CREAT) CALCIUM (test code = 7.6 mg/dL 8.0-10.5 L CA) [id number] 00:45:00 Test Item Value Reference Range Interpretation Comments PHOSPHOROUS (test code = PHOS) 1.9 MG/DL 2.5-4.9 L [id number] 00:04:00 Test Item Value Reference Range Interpretation Comments MAGNESIUM (test code = MAG) 2.00 mg/dL 1.8-2.4 N COMMENTS: Every 6 hours until anion gap </= 12 mEq/L, then every morning [id number] 23:39:00 Test Item Value Reference Range Interpretation Comments GLUBED (test code = 138 MG/DL 70-110 H Performe d by certified 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[facility] [id number] 21:56:00 Test Item Value Reference Range Interpretation Comments GLUBED (test code = 130 MG/DL 70-110 H Performe d by certified 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[facility] [id number] 18:56:00 Test Item Value Reference Range Interpretation Comments GLUBED (test code = 151 MG/DL 70-110 H Performe d by certified 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[facility] BASIC METABOLIC [id number] 18:54:00 Test Item Value Reference Range Interpretation Comments SODIUM (test code = NA) 142 mEq/L 134-147 N POTASSIUM (test code = 3.3 mEq/L 3.4-5.0 L K) CHLORIDE (test code = 104 mEq/L 100-108 N CL) CARBON DIOXIDE (test 22 mEq/L 21-33 N code = CO2) ANION GAP (test code = 19 0-20 N GAP) GLUCOSE (test code = 153 mg/dL 70-110 H GLU) BLOOD UREA NITROGEN 20 mg/dL 7-18 H (test code = BUN) GLOMERULAR FILTRATION 26.0 70-80 L Units of measure = RATE (test code = GFR) ml/mi n/1.73 m2 CREATININE (test code = 1.9 mg/dL 0.6-1.3 H CREAT) CALCIUM (test code = 7.1 mg/dL 8.0-10.5 L CA) [id number] 18:54:00 Test Item Value Reference Range Interpretation Comments PHOSPHOROUS (test code = PHOS) 2.2 MG/DL 2.5-4.9 L [id number] 18:54:00 Test Item Value Reference Range Interpretation Comments MAGNESIUM (test code = MAG) 2.10 mg/dL 1.8-2.4 N [id number] 18:39:00 Test Item Value Reference Range Interpretation Comments GLUBED (test code = 152 MG/DL 70-110 H Performe d by certified 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[facility] [id number] 18:39:00 Test Item Value Reference Range Interpretation Comments GLUBED (test code = 123 MG/DL 70-110 H Performe d by certified 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[facility] [id number] 18:39:00 Test Item Value Reference Range Interpretation Comments GLUBED (test code = 138 MG/DL 70-110 H Performe d by certified 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[facility] [id number] 13:20:00 Test Item Value Reference Range Interpretation Comments MAGNESIUM (test code = MAG) 2.30 mg/dL 1.8-2.4 N COMMENTS: Every 6 hours until anion gap </= 12 mEq/L, then every morning ARTERIAL BLOOD [id number] 11:48:00 Test Item Value Reference Range Interpretation Comments ARTERIAL BLOOD GAS PH (test code 7.395 7.35-7.45 N = PHA) ARTERIAL BLOOD GAS PCO2 (test 24.1 mmHg 35-45 LL code = PCO2A) ARTERIAL BLOOD GAS PO2 (test 136 mmHg 80-100 H code = PO2A) BICARBONATE TOTAL HCO3 (test 14.7 mmol/L 22.0-26.0 L code = HCO3) BASE EXCESS (test code = JACOB) -10.0 mmol/L -4-4 L ABG O2 SATURATION (test code = 99 % 90-100 N SATA) ABG DELIVERY (test code = CABRERA) Cannula ABG TEMPERATURE (test code = 98.6 F TEMPA) ABG SITE (test code = SITEA) R Rad TCO2 ARTERIAL (test code = 15 TCO2A) URINALYSIS [id number] 11:44:00 Test Item Value Reference Range Interpretation Comments UA COLOR (test code = COLU) YELLOW YEL/STRAW UA APPEARANCE (test code = SL CLOUDY CLEAR APPU) UA GLUCOSE DIPSTICK (test code 3+ NEGATIVE A = DGLUU) UA BILIRUBIN DIPSTICK (test NEGATIVE NEGATIVE code = BILU) UA KETONE DIPSTICK (test code = 2+ NEGATIVE A KETU) UA SPECIFIC GRAVITY (test code 1.006 1.005-1.030 N = SGU) UA BLOOD DIPSTICK (test code = 3+ NEGATIVE A ESSIE) UA PH DIPSTICK (test code = 5.0 5.0-7.0 N AURORA) UA PROTEIN DIPSTICK (test code 1+ NEGATIVE A = PROU) UA UROBILINIOGEN DIPSTICK (test 0.2 mg/dL 0.2-1.0 code = URO) UA NITRITE DIPSTICK (test code NEGATIVE NEGATIVE = MEHDI) UA LEUKOCYTE ESTERASE DIPSTICK 2+ NEGATIVE A (test code = LEUU) UA RBC (test code = RBCU) 21-50 RBC/HPF 0-3 UA WBC NO REFLEX (test code = 21-50 WBC/HPF 0-3 A WBCUCL) UA BACTERIA (test code = BACU) 1+ /HPF NONE SEEN A UA SQUAMOUS CELLS (test code = 0-5 /HPF NONE SEEN SQU) UA TRANSITIONAL CELLS (test TRACE /HPF NONE SEEN code = TRANU) UA HYALINE CAST (test code = 3-5 /LPF NONE SEEN HYALU) UA MUCUS (test code = MUCU) TRACE /LPF NONE SEEN UA AMORPHOUS SEDIMENT (test 1+ /HPF NONE A code = AMORU) BASIC METABOLIC [id number] 11:32:00 Test Item Value Reference Range Interpretation Comments SODIUM (test code = NA) 143 mEq/L 134-147 N POTASSIUM (test code = 3.2 mEq/L 3.4-5.0 L K) CHLORIDE (test code = 104 mEq/L 100-108 N CL) CARBON DIOXIDE (test 18 mEq/L 21-33 L code = CO2) ANION GAP (test code = 24 0-20 H GAP) GLUCOSE (test code = 159 mg/dL 70-110 H GLU) BLOOD UREA NITROGEN 20 mg/dL 7-18 H (test code = BUN) GLOMERULAR FILTRATION 34.1 70-80 L Units of measure = RATE (test code = GFR) ml/mi n/1.73 m2 CREATININE (test code = 1.5 mg/dL 0.6-1.3 H CREAT) CALCIUM (test code = 7.4 mg/dL 8.0-10.5 L CA) ACETONE [id number] 11:32:00 Test Item Value Reference Range Interpretation Comments ACETONE QUANT (test code Large - 80-100 mg/dL NEG - <20 = ACETN) mg/dL LACTIC [id number] 11:31:00 Test Item Value Reference Range Interpretation Comments LACTIC ACID (test code = LACT) 1.3 mmol/L 0.4-1.9 N BASIC METABOLIC [id number] 11:29:00 Test Item Value Reference Range Interpretation Comments SODIUM (test code = NA) 143 mEq/L 134-147 N POTASSIUM (test code = K) 3.2 mEq/L 3.4-5.0 L CHLORIDE (test code = CL) 104 mEq/L 100-108 N CARBON DIOXIDE (test code = CO2) 18 mEq/L 21-33 L ANION GAP (test code = GAP) 24 0-20 H GLUCOSE (test code = GLU) 159 mg/dL 70-110 H BLOOD UREA NITROGEN (test code = 20 mg/dL 7-18 H BUN) GLOMERULAR FILTRATION RATE (test 70-80 code = GFR) CREATININE (test code = CREAT) mg/dL 0.6-1.3 CALCIUM (test code = CA) 7.4 mg/dL 8.0-10.5 L ACETONE [id number] 11:29:00 Test Item Value Reference Range Interpretation Comments ACETONE QUANT (test code Large - 80-100 mg/dL NEG - <20 = ACETN) mg/dL BASIC METABOLIC [id number] 11:21:00 Test Item Value Reference Range Interpretation Comments SODIUM (test code = NA) mEq/L 134-147 POTASSIUM (test code = K) mEq/L 3.4-5.0 CHLORIDE (test code = CL) mEq/L 100-108 CARBON DIOXIDE (test code = CO2) mEq/L 21-33 ANION GAP (test code = GAP) 0-20 GLUCOSE (test code = GLU) mg/dL 70-110 BLOOD UREA NITROGEN (test code = BUN) mg/dL 7-18 GLOMERULAR FILTRATION RATE (test code 70-80 = GFR) CREATININE (test code = CREAT) mg/dL 0.6-1.3 CALCIUM (test code = CA) mg/dL 8.0-10.5 ACETONE [id number] 11:21:00 Test Item Value Reference Range Interpretation Comments ACETONE QUANT (test code Large - 80-100 mg/dL NEG - <20 = ACETN) mg/dL [id number] 07:57:00 Test Item Value Reference Range Interpretation Comments GLUBED (test code = 169 MG/DL 70-110 H Performe d by certified 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 CBC W/AUTO [id number] 05:24:00 Test Item Value Reference Range Interpretation Comments WHITE BLOOD CELL (test code = 15.02 x10 3/uL 4.5-11.0 H WBC) RED BLOOD CELL (test code = 2.79 x10 6/uL 3.54-5.02 L RBC) HEMOGLOBIN (test code = HGB) 8.4 g/dL 11.0-15.0 L HEMATOCRIT (test code = HCT) 26.0 % 33.0-45.0 L MEAN CELL VOLUME (test code = 93.2 fL 81.0-99.0 MCV) MEAN CELL HGB (test code = 30.1 pg 27.0-33.0 N MCH) MEAN CELL HGB CONCETRATION 32.3 g/dL 33.0-37.0 L (test code = MCHC) RED CELL DISTRIBUTION WIDTH CV 14.1 % 11.5-14.5 N (test code = RDW) RED CELL DISTRIBUTION WIDTH SD 47.6 fL 37.0-54.0 N (test code = RDW-SD) PLATELET COUNT (test code = 99 x10 3/uL 150-400 L PLT) MEAN PLATELET VOLUME (test 11.7 fL 7.0-9.0 H code = MPV) NEUTROPHIL % (test code = NT%) 85.4 % 56.0-77.0 H IMMATURE GRANULOCYTE % (test 0.4 % 0.0-2.0 N code = IG%) LYMPHOCYTE % (test code = LY%) 6.5 % 14.0-32.0 L MONOCYTE % (test code = MO%) 7.5 % 4.8-9.0 N EOSINOPHIL % (test code = EO%) 0.1 % 0.3-3.7 L BASOPHIL % (test code = BA%) 0.1 % 0.0-2.0 N NUCLEATED RBC % (test code = 0.0 % 0-0 N NRBC%) NEUTROPHIL # (test code = NT#) 12.84 x10 3/uL 2.0-7.6 H IMMATURE GRANULOCYTE # (test 0.06 x10 3/uL 0.00-0.03 H code = IG#) LYMPHOCYTE # (test code = LY#) 0.97 x10 3/uL 1.0-3.8 L MONOCYTE # (test code = MO#) 1.12 x10 3/uL 0.1-0.8 H EOSINOPHIL # (test code = EO#) 0.02 x10 3/uL 0.0-0.2 N BASOPHIL # (test code = BA#) 0.01 x10 3/uL 0.0-0.2 N NUCLEATED RBC # (test code = 0.00 x10 3/uL 0.0-0.1 N NRBC#) MANUAL DIFF REQUIRED (test NO code = MDIFF) PLT [id number] 05:24:00 Test Item Value Reference Range Interpretation Comments PLATELET ESTIMATE (test code 80-100 THOUSAND ADEQUATE = PLTEST) PLATELET MORPHOLOGY (test LARGE PLATELETS code = PLTMORPH) LACTIC [id number] 05:20:00 Test Item Value Reference Range Interpretation Comments LACTIC ACID (test code = LACT) 1.2 mmol/L 0.4-1.9 N BASIC METABOLIC [id number] 05:20:00 Test Item Value Reference Range Interpretation Comments SODIUM (test code = NA) 144 mEq/L 134-147 N POTASSIUM (test code = 3.3 mEq/L 3.4-5.0 L K) CHLORIDE (test code = 104 mEq/L 100-108 N CL) CARBON DIOXIDE (test 16 mEq/L 21-33 L code = CO2) ANION GAP (test code = 27 0-20 H GAP) GLUCOSE (test code = 167 mg/dL 70-110 H GLU) BLOOD UREA NITROGEN 14 mg/dL 7-18 (test code = BUN) GLOMERULAR FILTRATION 44.2 70-80 L Units of measure = RATE (test code = GFR) ml/mi n/1.73 m2 CREATININE (test code = 1.2 mg/dL 0.6-1.3 CREAT) CALCIUM (test code = 7.4 mg/dL 8.0-10.5 L CA) [id number] 05:20:00 Test Item Value Reference Range Interpretation Comments PHOSPHOROUS (test code = PHOS) 2.9 MG/DL 2.5-4.9 N [id number] 05:20:00 Test Item Value Reference Range Interpretation Comments MAGNESIUM (test code = MAG) 2.30 mg/dL 1.8-2.4 [id number] 05:20:00 Test Item Value Reference Range Interpretation Comments VANCOMYCIN (test code = VANCO) 12.8 mcg/mL CBC W/AUTO [id number] 05:01:00 Test Item Value Reference Range Interpretation Comments WHITE BLOOD CELL (test code = 15.02 x10 3/uL 4.5-11.0 H WBC) RED BLOOD CELL (test code = 2.79 x10 6/uL 3.54-5.02 L RBC) HEMOGLOBIN (test code = HGB) 8.4 g/dL 11.0-15.0 L HEMATOCRIT (test code = HCT) 26.0 % 33.0-45.0 L MEAN CELL VOLUME (test code = 93.2 fL 81.0-99.0 MCV) MEAN CELL HGB (test code = 30.1 pg 27.0-33.0 N MCH) MEAN CELL HGB CONCETRATION 32.3 g/dL 33.0-37.0 L (test code = MCHC) RED CELL DISTRIBUTION WIDTH CV 14.1 % 11.5-14.5 N (test code = RDW) RED CELL DISTRIBUTION WIDTH SD 47.6 fL 37.0-54.0 N (test code = RDW-SD) PLATELET COUNT (test code = 99 x10 3/uL 150-400 L PLT) MEAN PLATELET VOLUME (test 11.7 fL 7.0-9.0 H code = MPV) NEUTROPHIL % (test code = NT%) 85.4 % 56.0-77.0 H IMMATURE GRANULOCYTE % (test 0.4 % 0.0-2.0 N code = IG%) LYMPHOCYTE % (test code = LY%) 6.5 % 14.0-32.0 L MONOCYTE % (test code = MO%) 7.5 % 4.8-9.0 N EOSINOPHIL % (test code = EO%) 0.1 % 0.3-3.7 L BASOPHIL % (test code = BA%) 0.1 % 0.0-2.0 N NUCLEATED RBC % (test code = 0.0 % 0-0 N NRBC%) NEUTROPHIL # (test code = NT#) 12.84 x10 3/uL 2.0-7.6 H IMMATURE GRANULOCYTE # (test 0.06 x10 3/uL 0.00-0.03 H code = IG#) LYMPHOCYTE # (test code = LY#) 0.97 x10 3/uL 1.0-3.8 L MONOCYTE # (test code = MO#) 1.12 x10 3/uL 0.1-0.8 H EOSINOPHIL # (test code = EO#) 0.02 x10 3/uL 0.0-0.2 N BASOPHIL # (test code = BA#) 0.01 x10 3/uL 0.0-0.2 N NUCLEATED RBC # (test code = 0.00 x10 3/uL 0.0-0.1 N NRBC#) MANUAL DIFF REQUIRED (test NO code = MDIFF) PLT [id number] 05:01:00 Test Item Value Reference Range Interpretation Comments PLATELET ESTIMATE (test code = THOUSAND ADEQUATE PLTEST) CBC W/AUTO [id number] 05:01:00 Test Item Value Reference Range Interpretation Comments WHITE BLOOD CELL (test code = 15.02 x10 3/uL 4.5-11.0 H WBC) RED BLOOD CELL (test code = 2.79 x10 6/uL 3.54-5.02 L RBC) HEMOGLOBIN (test code = HGB) 8.4 g/dL 11.0-15.0 L HEMATOCRIT (test code = HCT) 26.0 % 33.0-45.0 L MEAN CELL VOLUME (test code = 93.2 fL 81.0-99.0 MCV) MEAN CELL HGB (test code = 30.1 pg 27.0-33.0 N MCH) MEAN CELL HGB CONCETRATION 32.3 g/dL 33.0-37.0 L (test code = MCHC) RED CELL DISTRIBUTION WIDTH CV 14.1 % 11.5-14.5 N (test code = RDW) RED CELL DISTRIBUTION WIDTH SD 47.6 fL 37.0-54.0 N (test code = RDW-SD) PLATELET COUNT (test code = 99 x10 3/uL 150-400 L PLT) MEAN PLATELET VOLUME (test 11.7 fL 7.0-9.0 H code = MPV) NEUTROPHIL % (test code = NT%) 85.4 % 56.0-77.0 H IMMATURE GRANULOCYTE % (test 0.4 % 0.0-2.0 N code = IG%) LYMPHOCYTE % (test code = LY%) 6.5 % 14.0-32.0 L MONOCYTE % (test code = MO%) 7.5 % 4.8-9.0 N EOSINOPHIL % (test code = EO%) 0.1 % 0.3-3.7 L BASOPHIL % (test code = BA%) 0.1 % 0.0-2.0 N NUCLEATED RBC % (test code = 0.0 % 0-0 N NRBC%) NEUTROPHIL # (test code = NT#) 12.84 x10 3/uL 2.0-7.6 H IMMATURE GRANULOCYTE # (test 0.06 x10 3/uL 0.00-0.03 H code = IG#) LYMPHOCYTE # (test code = LY#) 0.97 x10 3/uL 1.0-3.8 L MONOCYTE # (test code = MO#) 1.12 x10 3/uL 0.1-0.8 H EOSINOPHIL # (test code = EO#) 0.02 x10 3/uL 0.0-0.2 N BASOPHIL # (test code = BA#) 0.01 x10 3/uL 0.0-0.2 N NUCLEATED RBC # (test code = 0.00 x10 3/uL 0.0-0.1 N NRBC#) MANUAL DIFF REQUIRED (test NO code = MDIFF) PLT [id number] 05:01:00 Test Item Value Reference Range Interpretation Comments PLATELET ESTIMATE (test code = THOUSAND ADEQUATE PLTEST) LACTIC ACID [id number] 18:47:00 Test Item Value Reference Range Interpretation Comments LACTIC ACID REPEAT (test code = 1.6 mmol/l 0.4-1.9 N LACTR) [id number] 18:16:00 Test Item Value Reference Range Interpretation Comments GLUBED (test code = 129 MG/DL 70-110 H Performe d by certified 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[facility] B-TYPE NATRIURETIC [id number] 16:58:00 Test Item Value Reference Range Interpretation Comments B-TYPE NATRIURETIC PEPTIDE (test 1269.2 PG/ML 0-100 H code = BNP) LACTIC [id number] 15:47:00 Test Item Value Reference Range Interpretation Comments LACTIC ACID (test code = LACT) 2.4 mmol/L 0.4-1.9 H BASIC METABOLIC [id number] 15:44:00 Test Item Value Reference Range Interpretation Comments SODIUM (test code = NA) 143 mEq/L 134-147 N POTASSIUM (test code = 3.4 mEq/L 3.4-5.0 N K) CHLORIDE (test code = 104 mEq/L 100-108 N CL) CARBON DIOXIDE (test 23 mEq/L 21-33 code = CO2) ANION GAP (test code = 19 0-20 N GAP) GLUCOSE (test code = 139 mg/dL 70-110 H GLU) BLOOD UREA NITROGEN 5 mg/dL 7-18 L (test code = BUN) GLOMERULAR FILTRATION 98.3 70-80 H Units of measure = RATE (test code = GFR) ml/mi n/1.73 m2 CREATININE (test code = 0.6 mg/dL 0.6-1.3 CREAT) CALCIUM (test code = 7.1 mg/dL 8.0-10.5 L CA) [id number] 15:44:00 Test Item Value Reference Range Interpretation Comments PHOSPHOROUS (test code = PHOS) 2.6 MG/DL 2.5-4.9 [id number] 15:44:00 Test Item Value Reference Range Interpretation Comments MAGNESIUM (test code = MAG) 1.60 mg/dL 1.8-2.4 L CBC W/AUTO [id number] 15:26:00 Test Item Value Reference Range Interpretation Comments WHITE BLOOD CELL (test code = 18.06 x10 3/uL 4.5-11.0 H WBC) RED BLOOD CELL (test code = 3.10 x10 6/uL 3.54-5.02 L RBC) HEMOGLOBIN (test code = HGB) 9.5 g/dL 11.0-15.0 L HEMATOCRIT (test code = HCT) 27.6 % 33.0-45.0 L MEAN CELL VOLUME (test code = 89.0 fL 81.0-99.0 N MCV) MEAN CELL HGB (test code = 30.6 pg 27.0-33.0 N MCH) MEAN CELL HGB CONCETRATION 34.4 g/dL 33.0-37.0 N (test code = MCHC) RED CELL DISTRIBUTION WIDTH CV 13.5 % 11.5-14.5 N (test code = RDW) RED CELL DISTRIBUTION WIDTH SD 43.9 fL 37.0-54.0 N (test code = RDW-SD) PLATELET COUNT (test code = 131 x10 3/uL 150-400 L PLT) MEAN PLATELET VOLUME (test 11.4 fL 7.0-9.0 H code = MPV) NEUTROPHIL % (test code = NT%) 84.8 % 56.0-77.0 H IMMATURE GRANULOCYTE % (test 0.9 % 0.0-2.0 N code = IG%) LYMPHOCYTE % (test code = LY%) 4.9 % 14.0-32.0 L MONOCYTE % (test code = MO%) 9.3 % 4.8-9.0 H EOSINOPHIL % (test code = EO%) 0.0 % 0.3-3.7 L BASOPHIL % (test code = BA%) 0.1 % 0.0-2.0 N NUCLEATED RBC % (test code = 0.2 % 0-0 H NRBC%) NEUTROPHIL # (test code = NT#) 15.30 x10 3/uL 2.0-7.6 H IMMATURE GRANULOCYTE # (test 0.17 x10 3/uL 0.00-0.03 H code = IG#) LYMPHOCYTE # (test code = LY#) 0.89 x10 3/uL 1.0-3.8 L MONOCYTE # (test code = MO#) 1.68 x10 3/uL 0.1-0.8 H EOSINOPHIL # (test code = EO#) 0.00 x10 3/uL 0.0-0.2 N BASOPHIL # (test code = BA#) 0.02 x10 3/uL 0.0-0.2 N NUCLEATED RBC # (test code = 0.04 x10 3/uL 0.0-0.1 N NRBC#) MANUAL DIFF REQUIRED (test NO code = MDIFF) [id number] 12:23:00 Test Item Value Reference Range Interpretation Comments GLUBED (test code = 158 MG/DL 70-110 H Performe d by certified 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[facility] CBC W/AUTO [id number] 10:37:00 Test Item Value Reference Range Interpretation Comments WHITE BLOOD CELL (test code = 19.78 x10 3/uL 4.5-11.0 H WBC) RED BLOOD CELL (test code = 3.17 x10 6/uL 3.54-5.02 L RBC) HEMOGLOBIN (test code = HGB) 9.7 g/dL 11.0-15.0 L HEMATOCRIT (test code = HCT) 28.6 % 33.0-45.0 L MEAN CELL VOLUME (test code = 90.2 fL 81.0-99.0 N MCV) MEAN CELL HGB (test code = 30.6 pg 27.0-33.0 N MCH) MEAN CELL HGB CONCETRATION 33.9 g/dL 33.0-37.0 N (test code = MCHC) RED CELL DISTRIBUTION WIDTH CV 13.6 % 11.5-14.5 N (test code = RDW) RED CELL DISTRIBUTION WIDTH SD 44.3 fL 37.0-54.0 N (test code = RDW-SD) PLATELET COUNT (test code = 156 x10 3/uL 150-400 N PLT) MEAN PLATELET VOLUME (test 11.7 fL 7.0-9.0 H code = MPV) MANUAL DIFF REQUIRED (test YES code = MDIFF) WBC [id number] 10:37:00 Test Item Value Reference Range Interpretation Comments SEGMENTED NEUTROPHILS 87 % 37-69 H (test code = SEG) LYMPHOCYTE (test code 4 % 23-55 L = LYMPH) MONOCYTE (test code = 8 % 0-10 N MON) MYELOCYTE (test code 1 % 0.0-0.0 H = MYELO) NUCLEATED RED BLOOD 2 % CELL (test code = NRBC) POLYCHROMASIA (test SLIGHT code = POLC) ANISOCYTOSIS (test NORMAL code = ANISO) PLATELET ESTIMATE Adequate THOUSAND ADEQUATE (test code = PLTEST) PLATELET MORPHOLOGY LARGE PLATELETS LARGE PLTS SEEN (test code = PLTMORPH) CBC W/AUTO [id number] 10:26:00 Test Item Value Reference Range Interpretation Comments WHITE BLOOD CELL (test code = 19.78 x10 3/uL 4.5-11.0 H WBC) RED BLOOD CELL (test code = 3.17 x10 6/uL 3.54-5.02 L RBC) HEMOGLOBIN (test code = HGB) 9.7 g/dL 11.0-15.0 L HEMATOCRIT (test code = HCT) 28.6 % 33.0-45.0 L MEAN CELL VOLUME (test code = 90.2 fL 81.0-99.0 N MCV) MEAN CELL HGB (test code = 30.6 pg 27.0-33.0 N MCH) MEAN CELL HGB CONCETRATION 33.9 g/dL 33.0-37.0 N (test code = MCHC) RED CELL DISTRIBUTION WIDTH CV 13.6 % 11.5-14.5 N (test code = RDW) RED CELL DISTRIBUTION WIDTH SD 44.3 fL 37.0-54.0 N (test code = RDW-SD) PLATELET COUNT (test code = 156 x10 3/uL 150-400 N PLT) MEAN PLATELET VOLUME (test 11.7 fL 7.0-9.0 H code = MPV) MANUAL DIFF REQUIRED (test YES code = MDIFF) WBC [id number] 10:26:00 Test Item Value Reference Range Interpretation Comments ANISOCYTOSIS (test code = ANISO) PLATELET ESTIMATE (test code = THOUSAND ADEQUATE PLTEST) CBC W/AUTO [id number] 10:26:00 Test Item Value Reference Range Interpretation Comments WHITE BLOOD CELL (test code = 19.78 x10 3/uL 4.5-11.0 H WBC) RED BLOOD CELL (test code = 3.17 x10 6/uL 3.54-5.02 L RBC) HEMOGLOBIN (test code = HGB) 9.7 g/dL 11.0-15.0 L HEMATOCRIT (test code = HCT) 28.6 % 33.0-45.0 L MEAN CELL VOLUME (test code = 90.2 fL 81.0-99.0 N MCV) MEAN CELL HGB (test code = 30.6 pg 27.0-33.0 N MCH) MEAN CELL HGB CONCETRATION 33.9 g/dL 33.0-37.0 N (test code = MCHC) RED CELL DISTRIBUTION WIDTH CV 13.6 % 11.5-14.5 N (test code = RDW) RED CELL DISTRIBUTION WIDTH SD 44.3 fL 37.0-54.0 N (test code = RDW-SD) PLATELET COUNT (test code = 156 x10 3/uL 150-400 N PLT) MEAN PLATELET VOLUME (test 11.7 fL 7.0-9.0 H code = MPV) MANUAL DIFF REQUIRED (test YES code = MDIFF) WBC [id number] 10:26:00 Test Item Value Reference Range Interpretation Comments ANISOCYTOSIS (test code = ANISO) PLATELET ESTIMATE (test code = THOUSAND ADEQUATE PLTEST) ARTERIAL BLOOD [id number] 09:58:00 Test Item Value Reference Range Interpretation Comments ARTERIAL BLOOD GAS PH (test code 7.489 7.35-7.45 H = PHA) ARTERIAL BLOOD GAS PCO2 (test 25.6 mmHg 35-45 L code = PCO2A) ARTERIAL BLOOD GAS PO2 (test code 67 mmHg 80-100 L = PO2A) BICARBONATE TOTAL HCO3 (test code 19.6 mmol/L 22.0-26.0 L = HCO3) BASE EXCESS (test code = JACOB) -4.0 mmol/L -4-4 N ABG O2 SATURATION (test code = 95 % 90-100 N SATA) ABG DELIVERY (test code = CABRERA) Cannula ABG TEMPERATURE (test code = 98.0 F TEMPA) ABG SITE (test code = SITEA) L Rad TCO2 ARTERIAL (test code = TCO2A) 20 LACTIC ACID [id number] 09:46:00 Test Item Value Reference Range Interpretation Comments LACTIC ACID REPEAT (test code = 2.0 mmol/l 0.4-1.9 H LACTR) ACUTE HEPATITIS [id number] 08:08:00 Test Item Value Reference Range Interpretation Comments AB HEPATITIS A IGM (test NON REACTIVE INDEX NON REACT. code = HAVMAB) AG HEPATITIS B SURFACE NON REACTIVE INDEX NonReactive (test code = HBSAG) AB HEPATITIS B CORE IGM NON REACTIVE INDEX NON REACT. (test code = HBCMAB) AB HEPATITIS C (test code NON REACTIVE INDEX NON REACT. 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 - XR CHEST 1 [id number] 07:52:00 FAX: Rabia Castro MD [phone] [place]: St: ADM FAX: Candace MyersJoel Moore [phone] Name: MAC AGUSTIN [facility] : 1945 Age/S: 74/F [address] [place] [address] Unit #: [id number] Loc: G.17 [place] [address] Phys: Rabia gAuilar MD Acct: [id number] Dis Date: Status: ADM IN PHONE #: Exam Date: 09/27/2019 0748 FAX #: [phone] Reason: Hypoxemia EXAMS: CPT CODE: [id number] XR CHEST 1 V 00562 Study: - XR CHEST 1 V 09/27/2019 7:19 AM Patient Name: MAC AGUSTIN MR: [id number] : 1945; Age: 74 years y/o Female Ordering Physician: Rabia Aguilar MD Clinical Indication: Hypoxemia Comparison: September 26, 2019 x-ray FINDINGS LUNGS: The hypoinflated lungs are clear ofconsolidation, pleural effusion, and pneumothorax. HEART AND MEDIASTINUM: Normal size heart. LINES: The life support lines and tubes appear unchanged. OSSEOUS STRUCTURES: Mild spinal degenerative change without fracture, dislocation, or focal osseous lesion. OTHER: None. IMPRESSION: No acute abnormality as above discussed. SL: [id number] at 0752 Reported and signed by: Collin Alvarenga M.D. CC: Rabia Aguilar MD; Joel Boateng Technologist: Maureen Torres RT(R) Trnscrd Date/Time/By: 09/27/2019 (0752) : By: [email or web address] Orig Print D/T: S: 09/27/2019 (0755) PAGE 1 Signed ReportBASIC METABOLIC PANEL 2019-09-27 07:33:00 Test Item Value Reference Range Interpretation Comments SODIUM (test code = NA) 143 mEq/L 134-147 N POTASSIUM (test code = 3.5 mEq/L 3.4-5.0 N K) CHLORIDE (test code = 102 mEq/L 100-108 N CL) CARBON DIOXIDE (test 15 mEq/L 21-33 L code = CO2) ANION GAP (test code = 30 0-20 H GAP) GLUCOSE (test code = 137 mg/dL 70-110 H GLU) BLOOD UREA NITROGEN 16 mg/dL 7-18 N (test code = BUN) GLOMERULAR FILTRATION 44.2 70-80 L Units of measure = RATE (test code = GFR) ml/mi n/1.73 m2 CREATININE (test code = 1.2 mg/dL 0.6-1.3 N CREAT) CALCIUM (test code = 6.7 mg/dL 8.0-10.5 L CA) [id number] 07:33:00 Test Item Value Reference Range Interpretation Comments PHOSPHOROUS (test code = PHOS) 3.9 MG/DL 2.5-4.9 [id number] 07:33:00 Test Item Value Reference Range Interpretation Comments MAGNESIUM (test code = MAG) 2.50 mg/dL 1.8-2.4 H CALCIUM [id number] 07:33:00 Test Item Value Reference Range Interpretation Comments CALCIUM IONIZED (test code = DMITRY) 0.99 MMOL/L 1.12-1.32 L BASIC METABOLIC [id number] 07:25:00 Test Item Value Reference Range Interpretation Comments SODIUM (test code = NA) mEq/L 134-147 POTASSIUM (test code = K) mEq/L 3.4-5.0 CHLORIDE (test code = CL) mEq/L 100-108 CARBON DIOXIDE (test code = CO2) mEq/L 21-33 ANION GAP (test code = GAP) 0-20 GLUCOSE (test code = GLU) mg/dL 70-110 BLOOD UREA NITROGEN (test code = BUN) mg/dL 7-18 GLOMERULAR FILTRATION RATE (test code 70-80 = GFR) CREATININE (test code = CREAT) mg/dL 0.6-1.3 CALCIUM (test code = CA) mg/dL 8.0-10.5 [id number] 07:25:00 Test Item Value Reference Range Interpretation Comments PHOSPHOROUS (test code = PHOS) MG/DL 2.5-4.9 [id number] 07:25:00 Test Item Value Reference Range Interpretation Comments MAGNESIUM (test code = MAG) mg/dL 1.8-2.4 CALCIUM [id number] 07:25:00 Test Item Value Reference Range Interpretation Comments CALCIUM IONIZED (test code = DMITRY) 0.99 MMOL/L 1.12-1.32 L LACTIC [id number] 07:14:00 Test Item Value Reference Range Interpretation Comments LACTIC ACID (test code = LACT) 3.5 mmol/L 0.4-1.9 H CBC W/AUTO [id number] 06:52:00 Test Item Value Reference Range Interpretation Comments WHITE BLOOD CELL (test code = 19.78 x10 3/uL 4.5-11.0 H WBC) RED BLOOD CELL (test code = 3.17 x10 6/uL 3.54-5.02 L RBC) HEMOGLOBIN (test code = HGB) 9.7 g/dL 11.0-15.0 L HEMATOCRIT (test code = HCT) 28.6 % 33.0-45.0 L MEAN CELL VOLUME (test code = 90.2 fL 81.0-99.0 N MCV) MEAN CELL HGB (test code = 30.6 pg 27.0-33.0 N MCH) MEAN CELL HGB CONCETRATION 33.9 g/dL 33.0-37.0 N (test code = MCHC) RED CELL DISTRIBUTION WIDTH CV 13.6 % 11.5-14.5 N (test code = RDW) RED CELL DISTRIBUTION WIDTH SD 44.3 fL 37.0-54.0 N (test code = RDW-SD) PLATELET COUNT (test code = 156 x10 3/uL 150-400 N PLT) MEAN PLATELET VOLUME (test 11.7 fL 7.0-9.0 H code = MPV) NEUTROPHIL % (test code = NT%) % 56.0-77.0 LYMPHOCYTE % (test code = LY%) % 14.0-32.0 NEUTROPHIL # (test code = NT#) x10 3/uL 2.0-7.6 LYMPHOCYTE # (test code = LY#) x10 3/uL 1.0-3.8 MANUAL DIFF REQUIRED (test code = MDIFF) [id number] 05:55:00 Test Item Value Reference Range Interpretation Comments GLUBED (test code = 146 MG/DL 70-110 H Performe d by certified 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[facility] BASIC METABOLIC [id number] 03:07:00 Test Item Value Reference Range Interpretation Comments SODIUM (test code = NA) 143 mEq/L 134-147 N POTASSIUM (test code = 3.6 mEq/L 3.4-5.0 N K) CHLORIDE (test code = 101 mEq/L 100-108 N CL) CARBON DIOXIDE (test 20 mEq/L 21-33 L code = CO2) ANION GAP (test code = 26 0-20 H GAP) GLUCOSE (test code = 119 mg/dL 70-110 H GLU) BLOOD UREA NITROGEN 13 mg/dL 7-18 (test code = BUN) GLOMERULAR FILTRATION 48.8 70-80 L Units of measure = RATE (test code = GFR) ml/mi n/1.73 m2 CREATININE (test code = 1.1 mg/dL 0.6-1.3 N CREAT) CALCIUM (test code = 6.9 mg/dL 8.0-10.5 L CA) [id number] 03:07:00 Test Item Value Reference Range Interpretation Comments PHOSPHOROUS (test code = PHOS) 2.3 MG/DL 2.5-4.9 L [id number] 03:07:00 Test Item Value Reference Range Interpretation Comments MAGNESIUM (test code = MAG) 2.50 mg/dL 1.8-2.4 H CALCIUM [id number] 03:07:00 Test Item Value Reference Range Interpretation Comments CALCIUM IONIZED (test code = DMITRY) 0.96 MMOL/L 1.12-1.32 L ARTERIAL BLOOD [id number] 02:42:00 Test Item Value Reference Range Interpretation Comments ARTERIAL BLOOD GAS PH (test code 7.408 7.35-7.45 N = PHA) ARTERIAL BLOOD GAS PCO2 (test 24.8 mmHg 35-45 LL code = PCO2A) ARTERIAL BLOOD GAS PO2 (test code 55 mmHg 80-100 L = PO2A) BICARBONATE TOTAL HCO3 (test code 15.5 mmol/L 22.0-26.0 L = HCO3) BASE EXCESS (test code = JACOB) -9.0 mmol/L -4-4 L ABG O2 SATURATION (test code = 88 % 90-100 L SATA) ABG DELIVERY (test code = CABRERA) Cannula ABG TEMPERATURE (test code = 38.0 F TEMPA) ABG SITE (test code = SITEA) L Rad TCO2 ARTERIAL (test code = TCO2A) 16 CBC W/AUTO [id number] 02:24:00 Test Item Value Reference Range Interpretation Comments WHITE BLOOD CELL 21.56 x10 3/uL 4.5-11.0 H (test code = WBC) RED BLOOD CELL (test 3.14 x10 6/uL 3.54-5.02 L code = RBC) HEMOGLOBIN (test code 9.5 g/dL 11.0-15.0 L = HGB) HEMATOCRIT (test code 28.3 % 33.0-45.0 L = HCT) MEAN CELL VOLUME 90.1 fL 81.0-99.0 N (test code = MCV) MEAN CELL HGB (test 30.3 pg 27.0-33.0 N code = MCH) MEAN CELL HGB 33.6 g/dL 33.0-37.0 N CONCETRATION (test code = MCHC) RED CELL DISTRIBUTION 13.4 % 11.5-14.5 N WIDTH CV (test code = RDW) RED CELL DISTRIBUTION 43.8 fL 37.0-54.0 N WIDTH SD (test code = RDW-SD) PLATELET COUNT (test 159 x10 3/uL 150-400 N code = PLT) MEAN PLATELET VOLUME 11.7 fL 7.0-9.0 H (test code = MPV) NEUTROPHIL % (test 88.6 % 56.0-77.0 H code = NT%) IMMATURE GRANULOCYTE 0.8 % 0.0-2.0 N % (test code = IG%) LYMPHOCYTE % (test 2.8 % 14.0-32.0 L code = LY%) MONOCYTE % (test code 6.5 % 4.8-9.0 N = MO%) EOSINOPHIL % (test 1.1 % 0.3-3.7 N code = EO%) BASOPHIL % (test code 0.2 % 0.0-2.0 N = BA%) NUCLEATED RBC % (test 0.0 % 0-0 N code = NRBC%) NEUTROPHIL # (test 19.09 x10 3/uL 2.0-7.6 H code = NT#) IMMATURE GRANULOCYTE 0.18 x10 3/uL 0.00-0.03 H # (test code = IG#) LYMPHOCYTE # (test 0.61 x10 3/uL 1.0-3.8 L code = LY#) MONOCYTE # (test code 1.41 x10 3/uL 0.1-0.8 H = MO#) EOSINOPHIL # (test 0.23 x10 3/uL 0.0-0.2 H code = EO#) BASOPHIL # (test code 0.04 x10 3/uL 0.0-0.2 N = BA#) NUCLEATED RBC # (test 0.00 x10 3/uL 0.0-0.1 N code = NRBC#) MANUAL DIFF REQUIRED NO SLIDE R EZEQUIEL, (test code = MDIFF) CONSISTE NT WITH AUTO DIFF. BASIC METABOLIC [id number] 02:14:00 Test Item Value Reference Range Interpretation Comments SODIUM (test code = NA) mEq/L 134-147 POTASSIUM (test code = K) mEq/L 3.4-5.0 CHLORIDE (test code = CL) mEq/L 100-108 CARBON DIOXIDE (test code = CO2) mEq/L 21-33 ANION GAP (test code = GAP) 0-20 GLUCOSE (test code = GLU) mg/dL 70-110 BLOOD UREA NITROGEN (test code = BUN) mg/dL 7-18 GLOMERULAR FILTRATION RATE (test code 70-80 = GFR) CREATININE (test code = CREAT) mg/dL 0.6-1.3 CALCIUM (test code = CA) mg/dL 8.0-10.5 [id number] 02:14:00 Test Item Value Reference Range Interpretation Comments PHOSPHOROUS (test code = PHOS) MG/DL 2.5-4.9 [id number] 02:14:00 Test Item Value Reference Range Interpretation Comments MAGNESIUM (test code = MAG) mg/dL 1.8-2.4 CALCIUM [id number] 02:14:00 Test Item Value Reference Range Interpretation Comments CALCIUM IONIZED (test code = DMITRY) 0.96 MMOL/L 1.12-1.32 L LACTIC ACID 2ND [id number] 02:01:00 Test Item Value Reference Range Interpretation Comments LACTIC ACID 2ND REPEAT (test code 6.2 mmol/L 0.4-1.9 HH = LACT2) CBC W/AUTO [id number] 01:51:00 Test Item Value Reference Range Interpretation Comments WHITE BLOOD CELL (test code = 21.56 x10 3/uL 4.5-11.0 H WBC) RED BLOOD CELL (test code = 3.14 x10 6/uL 3.54-5.02 L RBC) HEMOGLOBIN (test code = HGB) 9.5 g/dL 11.0-15.0 L HEMATOCRIT (test code = HCT) 28.3 % 33.0-45.0 L MEAN CELL VOLUME (test code = 90.1 fL 81.0-99.0 N MCV) MEAN CELL HGB (test code = 30.3 pg 27.0-33.0 N MCH) MEAN CELL HGB CONCETRATION 33.6 g/dL 33.0-37.0 N (test code = MCHC) RED CELL DISTRIBUTION WIDTH CV 13.4 % 11.5-14.5 N (test code = RDW) RED CELL DISTRIBUTION WIDTH SD 43.8 fL 37.0-54.0 N (test code = RDW-SD) PLATELET COUNT (test code = 159 x10 3/uL 150-400 N PLT) MEAN PLATELET VOLUME (test 11.7 fL 7.0-9.0 H code = MPV) NEUTROPHIL % (test code = NT%) % 56.0-77.0 LYMPHOCYTE % (test code = LY%) % 14.0-32.0 NEUTROPHIL # (test code = NT#) x10 3/uL 2.0-7.6 LYMPHOCYTE # (test code = LY#) x10 3/uL 1.0-3.8 MANUAL DIFF REQUIRED (test code = MDIFF) [id number] 00:42:00 Test Item Value Reference Range Interpretation Comments GLUBED (test code = 117 MG/DL 70-110 H Performe d by certified 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 LIPOPROTEIN [id number] 23:01:00 Test Item Value Reference Range Interpretation Comments LIPOPROTEIN LDL 67 mg/dL 0-100 N <100 OPTIMAL 100-129 NEAR (test code = LDL) OPTIMAL/AB OVE [id number] HIGH>PW=690 YRIS Y HIGH*Guidelines provided by the National Cholesterol EducationProgra m Adult Treatment Panel III BASIC METABOLIC [id number] 22:46:00 Test Item Value Reference Range Interpretation Comments SODIUM (test code = NA) 142 mEq/L 134-147 N POTASSIUM (test code = 3.7 mEq/L 3.4-5.0 N K) CHLORIDE (test code = 101 mEq/L 100-108 N CL) CARBON DIOXIDE (test 21 mEq/L 21-33 N code = CO2) ANION GAP (test code = 24 0-20 H GAP) GLUCOSE (test code = 103 mg/dL 70-110 N GLU) BLOOD UREA NITROGEN 10 mg/dL 7-18 (test code = BUN) GLOMERULAR FILTRATION 54.5 70-80 L Units of measure = RATE (test code = GFR) ml/mi n/1.73 m2 CREATININE (test code = 1.0 mg/dL 0.6-1.3 N CREAT) CALCIUM (test code = 7.0 mg/dL 8.0-10.5 L CA) [id number] 22:46:00 Test Item Value Reference Range Interpretation Comments PHOSPHOROUS (test code = PHOS) 1.6 MG/DL 2.5-4.9 L [id number] 22:46:00 Test Item Value Reference Range Interpretation Comments MAGNESIUM (test code = MAG) 2.40 mg/dL 1.8-2.4 [id number] 22:46:00 Test Item Value Reference Range Interpretation Comments TROPONIN-I 0.284 ng/mL 0.000-0.045 HH Negative: <= 0 .045 Positive: (test code = >= 0.046 Corre lation with TROPI) serial results, other cardiac markers andclin ical findings is necessary to determine the clinicalsignifi cance of this result. Results using different metho dologies should not be c omparedto one another as ilene titative results may fly y by method. 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[facility] LACTIC [id number] 17:54:00 Test Item Value Reference Range Interpretation Comments LACTIC ACID (test code = LACT) 9.2 mmol/L 0.4-1.9 HH BASIC METABOLIC [id number] 17:54:00 Test Item Value Reference Range Interpretation Comments SODIUM (test code = NA) 141 mEq/L 134-147 N POTASSIUM (test code = 3.9 mEq/L 3.4-5.0 N K) CHLORIDE (test code = 100 mEq/L 100-108 N CL) CARBON DIOXIDE (test 25 mEq/L 21-33 code = CO2) ANION GAP (test code = 20 0-20 N GAP) GLUCOSE (test code = 137 mg/dL 70-110 H GLU) BLOOD UREA NITROGEN 14 mg/dL 7-18 (test code = BUN) GLOMERULAR FILTRATION 48.8 70-80 L Units of measure = RATE (test code = GFR) ml/mi n/1.73 m2 CREATININE (test code = 1.1 mg/dL 0.6-1.3 CREAT) CALCIUM (test code = 7.6 mg/dL 8.0-10.5 L CA) [id number] 17:54:00 Test Item Value Reference Range Interpretation Comments PHOSPHOROUS (test code = PHOS) 1.2 MG/DL 2.5-4.9 L [id number] 17:54:00 Test Item Value Reference Range Interpretation Comments MAGNESIUM (test code = MAG) 1.50 mg/dL 1.8-2.4 L CALCIUM [id number] 17:54:00 Test Item Value Reference Range Interpretation Comments CALCIUM IONIZED (test code = DMITRY) 0.98 MMOL/L 1.12-1.32 L BASIC METABOLIC [id number] 17:39:00 Test Item Value Reference Range Interpretation Comments SODIUM (test code = NA) mEq/L 134-147 POTASSIUM (test code = K) mEq/L 3.4-5.0 CHLORIDE (test code = CL) mEq/L 100-108 CARBON DIOXIDE (test code = CO2) mEq/L 21-33 ANION GAP (test code = GAP) 0-20 GLUCOSE (test code = GLU) mg/dL 70-110 BLOOD UREA NITROGEN (test code = BUN) mg/dL 7-18 GLOMERULAR FILTRATION RATE (test code 70-80 = GFR) CREATININE (test code = CREAT) mg/dL 0.6-1.3 CALCIUM (test code = CA) mg/dL 8.0-10.5 [id number] 17:39:00 Test Item Value Reference Range Interpretation Comments PHOSPHOROUS (test code = PHOS) MG/DL 2.5-4.9 [id number] 17:39:00 Test Item Value Reference Range Interpretation Comments MAGNESIUM (test code = MAG) mg/dL 1.8-2.4 CALCIUM [id number] 17:39:00 Test Item Value Reference Range Interpretation Comments CALCIUM IONIZED (test code = DMITRY) 0.98 MMOL/L 1.12-1.32 L CBC W/AUTO [id number] 17:38:00 Test Item Value Reference Range Interpretation Comments WHITE BLOOD CELL (test code = 21.91 x10 3/uL 4.5-11.0 H WBC) RED BLOOD CELL (test code = 3.45 x10 6/uL 3.54-5.02 L RBC) HEMOGLOBIN (test code = HGB) 10.4 g/dL 11.0-15.0 L HEMATOCRIT (test code = HCT) 30.2 % 33.0-45.0 L MEAN CELL VOLUME (test code = 87.5 fL 81.0-99.0 MCV) MEAN CELL HGB (test code = 30.1 pg 27.0-33.0 N MCH) MEAN CELL HGB CONCETRATION 34.4 g/dL 33.0-37.0 N (test code = MCHC) RED CELL DISTRIBUTION WIDTH CV 13.3 % 11.5-14.5 N (test code = RDW) RED CELL DISTRIBUTION WIDTH SD 42.8 fL 37.0-54.0 N (test code = RDW-SD) PLATELET COUNT (test code = 214 x10 3/uL 150-400 N PLT) MEAN PLATELET VOLUME (test 12.2 fL 7.0-9.0 H code = MPV) NEUTROPHIL % (test code = NT%) 90.8 % 56.0-77.0 H IMMATURE GRANULOCYTE % (test 1.0 % 0.0-2.0 N code = IG%) LYMPHOCYTE % (test code = LY%) 4.8 % 14.0-32.0 L MONOCYTE % (test code = MO%) 3.2 % 4.8-9.0 L EOSINOPHIL % (test code = EO%) 0.1 % 0.3-3.7 L BASOPHIL % (test code = BA%) 0.1 % 0.0-2.0 N NUCLEATED RBC % (test code = 0.0 % 0-0 N NRBC%) NEUTROPHIL # (test code = NT#) 19.89 x10 3/uL 2.0-7.6 H IMMATURE GRANULOCYTE # (test 0.21 x10 3/uL 0.00-0.03 H code = IG#) LYMPHOCYTE # (test code = LY#) 1.06 x10 3/uL 1.0-3.8 N MONOCYTE # (test code = MO#) 0.70 x10 3/uL 0.1-0.8 N EOSINOPHIL # (test code = EO#) 0.02 x10 3/uL 0.0-0.2 N BASOPHIL # (test code = BA#) 0.03 x10 3/uL 0.0-0.2 N NUCLEATED RBC # (test code = 0.00 x10 3/uL 0.0-0.1 N NRBC#) MANUAL DIFF REQUIRED (test NO code = MDIFF) ARTERIAL BLOOD [id number] 17:34:00 Test Item Value Reference Range Interpretation Comments ARTERIAL BLOOD GAS PH (test code 7.635 7.35-7.45 HH = PHA) ARTERIAL BLOOD GAS PCO2 (test 23.8 mmHg 35-45 LL code = PCO2A) ARTERIAL BLOOD GAS PO2 (test code 52 mmHg 80-100 L = PO2A) BICARBONATE TOTAL HCO3 (test code 25.3 mmol/L 22.0-26.0 N = HCO3) BASE EXCESS (test code = JACOB) 4.0 mmol/L -4-4 N ABG O2 SATURATION (test code = 93 % 90-100 N SATA) ABG DELIVERY (test code = CABRERA) Cannula ABG TEMPERATURE (test code = 98.6 F TEMPA) ABG SITE (test code = SITEA) R Fem TCO2 ARTERIAL (test code = TCO2A) 26 ARTERIAL BLOOD [id number] 15:12:00 Test Item Value Reference Range Interpretation Comments ARTERIAL BLOOD GAS PH (test code 7.674 7.35-7.45 HH = PHA) ARTERIAL BLOOD GAS PCO2 (test 17.1 mmHg 35-45 LL code = PCO2A) ARTERIAL BLOOD GAS PO2 (test code 86 mmHg 80-100 N = PO2A) BICARBONATE TOTAL HCO3 (test code 19.9 mmol/L 22.0-26.0 L = HCO3) BASE EXCESS (test code = JACOB) 0.0 mmol/L -4-4 N ABG O2 SATURATION (test code = 99 % 90-100 N SATA) ABG DELIVERY (test code = CABRERA) Cannula ABG TEMPERATURE (test code = 98.6 F TEMPA) ABG SITE (test code = SITEA) R Fem TCO2 ARTERIAL (test code = TCO2A) 20 VENOUS BLOOD [id number] 15:04:00 Test Item Value Reference Range Interpretation Comments VENOUS BLOOD GAS PH (test code = 7.55 7.33-7.45 H PHV) VENOUS BLOOD GAS PCO2 (test code 22 mmHg 43-47 L = PCO2V) VENOUS BLOOD GAS PO2 (test code = 37 mmHg 10-50 N PO2V) VBG HCO3 (test code = HCO3V) 19.4 mmol/L 22-27 L VBG BASE EXCESS (test code = YVONNE) -3.0 mmol/L -4.0-4.0 N VENOUS BLOOD GAS O2 SAT. (test 80 % 60-80 N code = O2SATV) VENOUS BLOOD GAS DELIVERY (test Cannula code = DELV) VENOUS BLOOD GAS TEMP (test code 98.6 F = TEMPV) VENOUS BLOOD GAS SITE (test code R Brach = SITEV) VENOUS TCO2 (test code = TCO2V) 20 ACUTE HEPATITIS [id number] 12:54:00 Test Item Value Reference Range Interpretation Comments AB HEPATITIS A IGM (test NON REACTIVE INDEX NON REACT. code = HAVMAB) AG HEPATITIS B SURFACE NON REACTIVE INDEX NonReactive (test code = HBSAG) AB HEPATITIS B CORE IGM NON REACTIVE INDEX NON REACT. (test code = HBCMAB) AB HEPATITIS C (test code NON REACTIVE INDEX NON REACT. = HCVAB) COMMENTS: At start of hemodialysisAB HEPATITIS B [id number] 12:54:00 Test Item Value Reference Range Interpretation Comments AB HEPATITIS B SURFACE (test code = HBSAB) COMMENTS: At start of hemodialysis- XR CHEST 1 [id number] 12:49:00 FAX: Joel Falk [phone] [place]: St: ADM FAX: Mick Lin [phone] --- Name: MAC AGUSTIN [facility] : 1945 Age/S: 74/F [address] [place] [address] Blvd Unit #: [id number] Loc: [address] [address] Phys: Mick Lin MD Acct: [id number] Dis Date: Status: ADM IN PHONE #: Exam Date: 09/26/2019 1231 FAX #: [phone] Reason: CONFIRM LINE PLACEMENT OF RIGHT IJ EXAMS: CPT CODE: [id number] XR CHEST 1 V 92858 EXAM: Single view AP chest. EXAM DATE: 09/26/2019 at 1221hours CLINICAL HISTORY: CONFIRM LINE PLACEMENT OF RIGHT IJ COMPARISON: September 26, 2019 at 0527 hours Dual-chamber right-sided IJ catheter tip is in the region of the superior vena cava just above the level of the right atrium. Heart size is grossly within normal limits. Atherosclerotic calcifications and tortuosity of the intrathoracic aorta is identified.. The lungs appear free of acute disease. No pneumothorax is identified. Imaged osseous structures demonstrate no acute findings. IMPRESSION: RightIJ catheter with its tip in the superior vena cava just above the level of the right atrium. No acute cardiopulmonary findings identified. at 1249 Reported and signed by: Tracy Johnson M.D. CC: Joel Myers MD; Mick Lin MD Technologist: RT Viji(R) Trnscrd Date/Time/By: 09/26/2019 (6217) : By: Delvis Orig Print D/T: S: 09/26/2019 (0714) PAGE 1 Signed ReportACUTE HEPATITIS [id number] 12:22:00 Test Item Value Reference Range Interpretation Comments AB HEPATITIS A IGM (test INDEX NON REACT. code = HAVMAB) AG HEPATITIS B SURFACE NON REACTIVE INDEX NonReactive (test code = HBSAG) AB HEPATITIS B CORE IGM INDEX NON REACT. (test code = HBCMAB) AB HEPATITIS C (test code INDEX NON REACT. = HCVAB) COMMENTS: At start of hemodialysisAB HEPATITIS B [id number] 12:22:00 Test Item Value Reference Range Interpretation Comments AB HEPATITIS B SURFACE (test code = HBSAB) COMMENTS: At start of hemodialysisACUTE HEPATITIS [id number] 12:22:00 Test Item Value Reference Range Interpretation Comments AB HEPATITIS A IGM (test INDEX NON REACT. code = HAVMAB) AG HEPATITIS B SURFACE NON REACTIVE INDEX NonReactive (test code = HBSAG) AB HEPATITIS B CORE IGM INDEX NON REACT. (test code = HBCMAB) AB HEPATITIS C (test code INDEX NON REACT. = HCVAB) COMMENTS: At start of hemodialysisAB HEPATITIS B [id number] 12:22:00 Test Item Value Reference Range Interpretation Comments AB HEPATITIS B SURFACE (test code = HBSAB) COMMENTS: At start of hemodialysisCOMPREHENSIVE METABOLIC [id number] 11:44:00 Test Item Value Reference Range Interpretation Comments SODIUM (test code = NA) 145 mEq/L 134-147 N POTASSIUM (test code = 4.8 mEq/L 3.4-5.0 K) CHLORIDE (test code = 102 mEq/L 100-108 CL) CARBON DIOXIDE (test 4 mEq/L 21-33 L code = CO2) ANION GAP (test code = 44 0-20 H GAP) GLUCOSE (test code = 147 mg/dL 70-110 H GLU) BLOOD UREA NITROGEN 86 mg/dL 7-18 H (test code = BUN) GLOMERULAR FILTRATION 8.3 70-80 L Units of measure = RATE (test code = GFR) ml/mi n/1.73 m2 CREATININE (test code = 5.1 mg/dL 0.6-1.3 H CREAT) TOTAL PROTEIN (test 5.5 g/dL 6.4-8.2 L code = PROT) ALBUMIN (test code = 2.40 g/dL 3.4-5.0 L ALB) CALCIUM (test code = 7.8 mg/dL 8.0-10.5 L CA) BILIRUBIN TOTAL (test 0.4 MG/DL <1.5 code = BILT) SGOT/AST (test code = 43 IUnit/L 15-37 H AST) SGPT/ALT (test code = 26 IUnit/L 15-65 ALT) ALKALINE PHOSPHATASE 52 IUnit/L 20-125 N TOTAL (test code = ALKP) [id number] 11:44:00 Test Item Value Reference Range Interpretation Comments PHOSPHOROUS (test code = PHOS) 9.2 MG/DL 2.5-4.9 HH [id number] 11:44:00 Test Item Value Reference Range Interpretation Comments MAGNESIUM (test code = MAG) 2.90 mg/dL 1.8-2.4 H CALCIUM [id number] 11:44:00 Test Item Value Reference Range Interpretation Comments CALCIUM IONIZED (test code = DMITRY) 1.07 MMOL/L 1.12-1.32 L LACTIC ACID 2ND [id number] 11:23:00 Test Item Value Reference Range Interpretation Comments LACTIC ACID 2ND REPEAT (test code 21.3 mmol/L 0.4-1.9 HH = LACT2) COMPREHENSIVE METABOLIC [id number] 10:59:00 Test Item Value Reference Range Interpretation Comments SODIUM (test code = NA) 145 mEq/L 134-147 N POTASSIUM (test code = 4.8 mEq/L 3.4-5.0 K) CHLORIDE (test code = 102 mEq/L 100-108 CL) CARBON DIOXIDE (test 4 mEq/L 21-33 L code = CO2) ANION GAP (test code = 44 0-20 H GAP) GLUCOSE (test code = 147 mg/dL 70-110 H GLU) BLOOD UREA NITROGEN 86 mg/dL 7-18 H (test code = BUN) GLOMERULAR FILTRATION 8.3 70-80 L Units of measure = RATE (test code = GFR) ml/mi n/1.73 m2 CREATININE (test code = 5.1 mg/dL 0.6-1.3 H CREAT) TOTAL PROTEIN (test 5.5 g/dL 6.4-8.2 L code = PROT) ALBUMIN (test code = 2.40 g/dL 3.4-5.0 L ALB) CALCIUM (test code = 7.8 mg/dL 8.0-10.5 L CA) BILIRUBIN TOTAL (test 0.4 MG/DL <1.5 code = BILT) SGOT/AST (test code = 43 IUnit/L 15-37 H AST) SGPT/ALT (test code = 26 IUnit/L 15-65 ALT) ALKALINE PHOSPHATASE 52 IUnit/L 20-125 N TOTAL (test code = ALKP) [id number] 10:59:00 Test Item Value Reference Range Interpretation Comments PHOSPHOROUS (test code = PHOS) MG/DL 2.5-4.9 [id number] 10:59:00 Test Item Value Reference Range Interpretation Comments MAGNESIUM (test code = MAG) 2.90 mg/dL 1.8-2.4 H CALCIUM [id number] 10:59:00 Test Item Value Reference Range Interpretation Comments CALCIUM IONIZED (test code = DMITRY) 1.07 MMOL/L 1.12-1.32 L COMPREHENSIVE METABOLIC [id number] 10:59:00 Test Item Value Reference Range Interpretation Comments SODIUM (test code = NA) 145 mEq/L 134-147 N POTASSIUM (test code = 4.8 mEq/L 3.4-5.0 K) CHLORIDE (test code = 102 mEq/L 100-108 CL) CARBON DIOXIDE (test 4 mEq/L 21-33 L code = CO2) ANION GAP (test code = 44 0-20 H GAP) GLUCOSE (test code = 147 mg/dL 70-110 H GLU) BLOOD UREA NITROGEN 86 mg/dL 7-18 H (test code = BUN) GLOMERULAR FILTRATION 8.3 70-80 L Units of measure = RATE (test code = GFR) ml/mi n/1.73 m2 CREATININE (test code = 5.1 mg/dL 0.6-1.3 H CREAT) TOTAL PROTEIN (test 5.5 g/dL 6.4-8.2 L code = PROT) ALBUMIN (test code = 2.40 g/dL 3.4-5.0 L ALB) CALCIUM (test code = 7.8 mg/dL 8.0-10.5 L CA) BILIRUBIN TOTAL (test 0.4 MG/DL <1.5 code = BILT) SGOT/AST (test code = 43 IUnit/L 15-37 H AST) SGPT/ALT (test code = 26 IUnit/L 15-65 ALT) ALKALINE PHOSPHATASE 52 IUnit/L 20-125 N TOTAL (test code = ALKP) [id number] 10:59:00 Test Item Value Reference Range Interpretation Comments PHOSPHOROUS (test code = PHOS) MG/DL 2.5-4.9 [id number] 10:59:00 Test Item Value Reference Range Interpretation Comments MAGNESIUM (test code = MAG) 2.90 mg/dL 1.8-2.4 H CALCIUM [id number] 10:59:00 Test Item Value Reference Range Interpretation Comments CALCIUM IONIZED (test code = DMITRY) 1.07 MMOL/L 1.12-1.32 L COMPREHENSIVE METABOLIC [id number] 10:50:00 Test Item Value Reference Range Interpretation Comments SODIUM (test code = NA) 145 mEq/L 134-147 N POTASSIUM (test code = 4.8 mEq/L 3.4-5.0 K) CHLORIDE (test code = 102 mEq/L 100-108 CL) CARBON DIOXIDE (test 4 mEq/L 21-33 L code = CO2) ANION GAP (test code = 44 0-20 H GAP) GLUCOSE (test code = 147 mg/dL 70-110 H GLU) BLOOD UREA NITROGEN 86 mg/dL 7-18 H (test code = BUN) GLOMERULAR FILTRATION 8.3 70-80 L Units of measure = RATE (test code = GFR) ml/mi n/1.73 m2 CREATININE (test code = 5.1 mg/dL 0.6-1.3 H CREAT) TOTAL PROTEIN (test 5.5 g/dL 6.4-8.2 L code = PROT) ALBUMIN (test code = 2.40 g/dL 3.4-5.0 L ALB) CALCIUM (test code = 7.8 mg/dL 8.0-10.5 L CA) BILIRUBIN TOTAL (test 0.4 MG/DL <1.5 code = BILT) SGOT/AST (test code = 43 IUnit/L 15-37 H AST) SGPT/ALT (test code = 26 IUnit/L 15-65 ALT) ALKALINE PHOSPHATASE 52 IUnit/L 20-125 N TOTAL (test code = ALKP) [id number] 10:50:00 Test Item Value Reference Range Interpretation Comments PHOSPHOROUS (test code = PHOS) MG/DL 2.5-4.9 [id number] 10:50:00 Test Item Value Reference Range Interpretation Comments MAGNESIUM (test code = MAG) 2.90 mg/dL 1.8-2.4 H CALCIUM [id number] 10:50:00 Test Item Value Reference Range Interpretation Comments CALCIUM IONIZED (test code = DMITRY) MMOL/L 1.12-1.32 COMPREHENSIVE METABOLIC [id number] 10:46:00 Test Item Value Reference Range Interpretation Comments SODIUM (test code = NA) 145 mEq/L 134-147 N POTASSIUM (test code = K) 4.8 mEq/L 3.4-5.0 CHLORIDE (test code = CL) 102 mEq/L 100-108 CARBON DIOXIDE (test code = CO2) 4 mEq/L 21-33 L ANION GAP (test code = GAP) 44 0-20 H GLUCOSE (test code = GLU) 147 mg/dL 70-110 H BLOOD UREA NITROGEN (test code = 86 mg/dL 7-18 H BUN) GLOMERULAR FILTRATION RATE (test 70-80 code = GFR) CREATININE (test code = CREAT) mg/dL 0.6-1.3 TOTAL PROTEIN (test code = PROT) g/dL 6.4-8.2 ALBUMIN (test code = ALB) g/dL 3.4-5.0 CALCIUM (test code = CA) 7.8 mg/dL 8.0-10.5 L BILIRUBIN TOTAL (test code = BILT) MG/DL <1.5 SGOT/AST (test code = AST) IUnit/L 15-37 SGPT/ALT (test code = ALT) IUnit/L 15-65 ALKALINE PHOSPHATASE TOTAL (test IUnit/L 20-125 code = ALKP) [id number] 10:46:00 Test Item Value Reference Range Interpretation Comments PHOSPHOROUS (test code = PHOS) MG/DL 2.5-4.9 [id number] 10:46:00 Test Item Value Reference Range Interpretation Comments MAGNESIUM (test code = MAG) mg/dL 1.8-2.4 CALCIUM [id number] 10:46:00 Test Item Value Reference Range Interpretation Comments CALCIUM IONIZED (test code = DMITRY) MMOL/L 1.12-1.32 CBC W/AUTO [id number] 10:19:00 Test Item Value Reference Range Interpretation Comments WHITE BLOOD CELL (test code = 26.44 x10 3/uL 4.5-11.0 H WBC) RED BLOOD CELL (test code = 3.50 x10 6/uL 3.54-5.02 L RBC) HEMOGLOBIN (test code = HGB) 10.5 g/dL 11.0-15.0 L HEMATOCRIT (test code = HCT) 36.1 % 33.0-45.0 N MEAN CELL VOLUME (test code = 103.1 fL 81.0-99.0 H MCV) MEAN CELL HGB (test code = 30.0 pg 27.0-33.0 N MCH) MEAN CELL HGB CONCETRATION 29.1 g/dL 33.0-37.0 L (test code = MCHC) RED CELL DISTRIBUTION WIDTH CV 13.5 % 11.5-14.5 N (test code = RDW) RED CELL DISTRIBUTION WIDTH SD 51.6 fL 37.0-54.0 N (test code = RDW-SD) PLATELET COUNT (test code = 269 x10 3/uL 150-400 N PLT) MEAN PLATELET VOLUME (test 11.7 fL 7.0-9.0 H code = MPV) NEUTROPHIL % (test code = NT%) 81.1 % 56.0-77.0 H IMMATURE GRANULOCYTE % (test 1.6 % 0.0-2.0 N code = IG%) LYMPHOCYTE % (test code = LY%) 4.8 % 14.0-32.0 L MONOCYTE % (test code = MO%) 12.3 % 4.8-9.0 H EOSINOPHIL % (test code = EO%) 0.0 % 0.3-3.7 L BASOPHIL % (test code = BA%) 0.2 % 0.0-2.0 N NUCLEATED RBC % (test code = 0.0 % 0-0 N NRBC%) NEUTROPHIL # (test code = NT#) 21.47 x10 3/uL 2.0-7.6 H IMMATURE GRANULOCYTE # (test 0.41 x10 3/uL 0.00-0.03 H code = IG#) LYMPHOCYTE # (test code = LY#) 1.26 x10 3/uL 1.0-3.8 N MONOCYTE # (test code = MO#) 3.25 x10 3/uL 0.1-0.8 H EOSINOPHIL # (test code = EO#) 0.00 x10 3/uL 0.0-0.2 N BASOPHIL # (test code = BA#) 0.05 x10 3/uL 0.0-0.2 N NUCLEATED RBC # (test code = 0.00 x10 3/uL 0.0-0.1 N NRBC#) MANUAL DIFF REQUIRED (test NO code = MDIFF) ARTERIAL BLOOD [id number] 09:53:00 Test Item Value Reference Range Interpretation Comments ARTERIAL BLOOD GAS PH (test 6.787 7.35-7.45 LL code = PHA) ARTERIAL BLOOD GAS PCO2 (test 13.7 mmHg 35-45 LL code = PCO2A) ARTERIAL BLOOD GAS PO2 (test 158 mmHg 80-100 H code = PO2A) BICARBONATE TOTAL HCO3 (test 2.1 mmol/L 22.0-26.0 L code = HCO3) BASE EXCESS (test code = JACOB) < -30.0 mmol/L -4-4 L ABG O2 SATURATION (test code = 96 % 90-100 N SATA) ABG DELIVERY (test code = Cannula CABRERA) ABG TEMPERATURE (test code = 98.6 F TEMPA) ABG SITE (test code = SITEA) R Rad TCO2 ARTERIAL (test code = < 5 TCO2A) [id number] 08:39:00 Test Item Value Reference Range Interpretation Comments TROPONIN-I 0.033 ng/mL 0.000-0.045 N Negative: <= 0. 045 Positive: (test code = >= 0.046 Correl ation with TROPI) serial results, other cardiac markers andclin ical findings is necessary to determine the clinicalsignifi cance of this result. Results using different metho dologies should not be c omparedto one another as ilene titative results may fly y by method. 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[facility] LACTIC ACID [id number] 07:06:00 Test Item Value Reference Range Interpretation Comments LACTIC ACID REPEAT (test code = 19.1 mmol/l 0.4-1.9 HH LACTR) - CT ABD PELVIS W/O [id number] 06:29:00 Name: MAC AGUSTIN [facility] : 1945 Age/S: 74 / F [address] [place] [address] Blvd Unit #:[id number] Loc: [place] [address] Phys: Facundo Phan MD Acct: [id number] Dis Date: Status: REGER PHONE #: [phone] Exam Date: 09/26/2019 0546 FAX #: [phone] Reason: POSSIBLE PNEUMOPERITONEUM EXAMS: CPT CODE: [id number] CT ABD PELVIS W/O CONT 01184 STUDY: - CT CHEST W/O CONTRAST, - CT ABD PELVIS W/O CONT 09/26/2019 4:27 AM Ordering Physician: Facundo Phan MD Patient Name: SHERYL AGUSTIN MR: [id number] : 1947; Age: 72 years y/o Female Clinical Indication: Dehydration. POSSIBLE PNEUMOPERITONEUM Comparison: None TECHNIQUE: Multiple contiguous transaxial noncontrast CT images were obtained through the chest, abdomen, and pelvis. Sagittal and coronal reformatted images were prepared. CT imaging performed at this location utilizes radiation dose optimization techniques which include one or more of the following: -Automated exposure control -Adjustment of the mA and/or kV according to patient size -Use of iterative reconstruction technique CT Radiation Dose DLP: 538.32 mGy-cm CT CHEST WITHOUT CONTRAST: LUNGS: Mildly hyperinflated but clear lungs associated with mild subsegmental atelectasis and scarring in the lung bases. No consolidation, pleural effusion, or pneumothorax. Small calcified granuloma in the right lung base. Mild pleural/parenchymal scarring in the lungapices. AIRWAY: Clear central tracheobronchial tree. HEART: Normal size heart associated with moderate coronary artery calcifications and prominent pericardial fat. THORACIC AORTA: Normal caliber nonenhanced thoracic aorta associated with mild calcified plaque. PULMONARY ARTERIES: Nonopacified. MEDIASTINUM AND ERIKA: Slightly heterogeneous thyroid without discrete lesion. Scattered subcentimeter mediastinal lymph nodes without PAGE 1 Signed Report (CONTINUED) [facility] 1945 Age/S: 74 / F [address] [place] [address] Unit #: [id number] Loc: [place] [address] Phys: Facundo Phan MD Acct: [id number] Dis Date: Status: REG ER PHONE #: [phone] Exam Date: 2019 0546 FAX #: [phone] Reason: POSSIBLE PNEUMOPERITONEUM EXAMS: CPT CODE: [id number] CT ABD PELVIS W/O CONT 03359 (Continued) lymphadenopathy or mass. SOFT TISSUES: Mild anasarca. OSSEOUS STRUCTURES: Mild to moderate thoracic spondylosis and facet arthrosis greatest in the lower thoracic spine.Mild old appearing lower thoracic compression fractures. No acute fracture or dislocation after accounting for mild motion artifact. CT ABDOMEN AND PELVIS WITHOUT CONTRAST: BOWEL GAS: Nonspecific nonobstructed bowel gas pattern associated with mild diffuse wall thickening likely related to underdistention or mild nonspecific colitis. Mild submucosal fat within the colon suggesting chronic colonic inflammation. Mild sigmoid diverticulosis. APPENDIX: The appendix is not identified with certainty, butno pericecal inflammation is appreciated. STOMACH: Moderately dilated stomach with mild focal lobulated asymmetric thickening in the antropyloric region of the stomach and along the greater gastric curvature that may be related to nonspecific gastritis or neoplasm. PERITONEUM AND MESENTERY: Free Air: No evidence of pneumoperitoneum. Free Fluid: No evidence of significant free fluid, loculated fluid, peripherally enhancing abscess, or hemorrhage. Mesenteric and peritoneal fat: Mild diffuse hazy indura tion of the peritoneal fat without specific site of localization. LYMPH NODES: Scattered small nonspecific central mesenteric and retroperitoneal lymph nodes. 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 IVC: Normal caliber nonenhanced. ABDOMINAL ORGANS: Liver: Normal size and morphology without discrete lesion. PAGE 2 Signed Report (CONTINUED) Name: [facility] 1945 Age/S: 74 / F [address] [place] [address] Unit #: [id number] Loc: [place] [address] Phys: Facundo Phan MD Acct: [id number] Dis Date: Status: REG ER PHONE #: [phone] Exam Date: 09/26/2019 0546 FAX #: [phone] Reason: POSSIBLE PNEUMOPERITONEUM EXAMS: CPT CODE: [id number] CT ABD PELVIS W/O CONT 47312 (Continued) Gallbladder: Postoperative change of cholecystectomy.Biliary Tree: Mildly prominent intrahepatic and extrahepatic bile ducts likely physiological in nature status post cholecystectomy. Kidneys: Normal size nonenhanced right kidney without nephrolithiasis, ureterolithiasis, hydronephrosis, or focal lesion. Small vascular calcifications are seen centrallyin the right kidney. Mild left renal cortical atrophy associated with small central vascular calcific ations. No definite nephrolithiasis, ureterolithiasis, or hydronephrosis. An ill-defined cyst is seen involving the left superior renal pole measuring 2.5 cm at 24 Hounsfield units. Adrenal Glands: Subtle central fullness versus a small nodule measuring 1.3 cm in the left adrenal gland. Normal right groin. Pancreas: Normal size and morphology without discrete lesion. Spleen: Small nonenhanced spleen. PELVIC ORGANS: Urinary bladder: Mildly under distended urinary bladder with small nondependent focus of gas suggesting recent catheterization or fistula. Reproductive organs: Absent uterus. Normal adnexa. SOFT TISSUES: Mild diffuse anasarca. Mild soft tissue gas in the right anterior pelvic and lowerabdominal wall likely related to medication injection. OSSEOUS STRUCTURES: Mild to moderate lumbar spondylosis and facet arthrosis. 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 No acute fracture ordislocation. IMPRESSION: Nonspecific nonobstructive bowel gas pattern associated with mild diffuse colonic wall thickening either related to underdistention or nonspecific colitis. Mild submucosal fatseen in the colon suggest chronic colonic inflammatory change. PAGE 3 Signed Report (CONTINUED) Name: MAC AGUSTIN [facility] [place] : 1945 Age/S: 74 / F [address] [place] [address] Unit #: [id number] Loc: [place] [address] Phys: Facundo Phan MD Acct: [id number] Dis Date: Status: REG ER PHONE #: [phone] Exam Date: 09/26/2019 0546 FAX #: [phone] Reason: POSSIBLE PNEUMOPERITONEUMEXAMS: CPT CODE: [id number] CT ABD PELVIS W/O CONT 36304 (Continued) Mild sigmoid diverticulosis. Moderately dilated stomach with areas of asymmetric wall thickening in the antrum and greater gastric curvature that may represent gastritis or underlying neoplasm. Follow-up upper GI or endoscopy may behelpful. Additionally, a radionuclide gastric emptying study may be helpful if gastroparesis is suspected clinically. Mild left renal cortical atrophy associated with a small mildly complex cyst. Further evaluation may be obtained with renal ultrasound. Tiny focus of gas in the urinary bladder may represent recent catheterization or cold fistula with bowel. Mild diffuse anasarca. Normal size heart associated with moderate coronary artery calcifications. Mild hyperinflation associated with subsegment al atelectasis and scarring in both lungs greatest in the lung bases. 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 Mild soft tissue gas in the right anterior abdominal and pelvic wall likely related to recent medication injection. Postoperative change of cholecystectomy. 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 PAGE 4 Signed Report (CONTINUED) Name: MAC AGUSTIN [facility] : 1945 Age/S: 74 / F [address] [place] [address] Unit #: [id number] Loc: [place] [address] Phys: Facundo Phan MD Acct: [id number] Dis Date: Status: REG ER PHONE #: [phone] Exam Date: 09/26/2019 0546 FAX #: [phone] Reason: POSSIBLE PNEUMOPERITONEUM EXAMS: CPT CODE: [id number] CT ABD PELVIS W/O CONT 72186 (Continued) CC: Facundo Phan MD Technologist:RT Randy(R) CTDI: DLP: Trnscb Date/Time: 09/26/2019 (628) [id number] Orig Print D/T: S: 09/26/2019 (0632) PAGE 5 Signed Report- CT CHEST W/O [id number] 06:29:00 Name: MAC AGUSTIN [facility] Crescencio Reece : 1945 Age/S: 74 / F [address] [place] [address] Unit #: [id number] Loc: [place] [address] Phys: Facundo Phan MD Acct: [id number] Dis Date: Status: REG ER PHONE #: [phone] Exam Date: 09/26/2019 0546 FAX #: [phone] Reason: POSSIBLE PNEUMOPERITONEUM EXAMS: CPT CODE: [id number] CT CHEST W/O CONTRAST 57651 STUDY: - CT CHEST W/O CONTRAST, - CT ABD PELVIS W/O CONT 09/26/2019 4:27 AM Ordering Physician: Facundo Phan MD Patient Name: SHERYL AGUSTIN MR: [id number] : 1947; Age: 72 years y/o Female Clinical Indication: Dehydration. POSSIBLE PNEUMOPERITONEUM Comparison: None TECHNIQUE: Multiple contiguous transaxial noncontrast CT images were obtained through the chest, abdomen, and pelvis. Sagittal and coronal reformatted images were prepared. CT imaging performed at this location utilizes radiation dose optimization techniques which include one or more of the following: -Automated exposure control -Adjustment of the mA and/or kV according to patient size -Use of iterative reconstruction technique CT Radiation Dose DLP: 538.32 mGy-cm CT CHEST WITHOUT CONTRAST: LUNGS: Mildly hyperinflated but clear lungs associated with mild subsegmental atelectasis and scarring in the lung bases. No consolidation, pleural effusion, or pneumothorax. Small calcified granuloma in the right lung base. Mild pleural/parenchymal scarring in the lungapices. AIRWAY: Clear central tracheobronchial tree. HEART: Normal size heart associated with moderate coronary artery calcifications and prominent pericardial fat. THORACIC AORTA: Normal caliber nonenhanced thoracic aorta associated with mild calcified plaque. PULMONARY ARTERIES: Nonopacified. MEDIASTINUM AND ERIKA: Slightly heterogeneous thyroid without discrete lesion. Scattered subcentimeter mediastinal lymph nodes without PAGE 1 Signed Report (CONTINUED) Name: MAC AGUSTIN [facility] Crescencio Reece : 1945 Age/S: 74 / F [address] [place] [address] Unit #: [id number] Loc: [place] [address] Phys: Facundo Phan MD Acct: [id number] Dis Date: Status: REG ER PHONE #: [phone] Exam Date: 09/1046 FAX #: [phone] Reason: POSSIBLE PNEUMOPERITONEUM EXAMS: CPT CODE: [id number] CT CHEST W/O CONTRAST 62957 (Continued) lymphadenopathy or mass. SOFT TISSUES: Mild anasarca. OSSEOUS STRUCTURES: Mild to moderate thoracic spondylosis and facet arthrosis greatest in the lower thoracic spine. Mild old appearing lower thoracic compression fractures. No acute fracture or dislocation after accounting for mild motion artifact. CT ABDOMEN AND PELVIS WITHOUT CONTRAST: BOWEL GAS: Nonspecific nonobstructed bowel gas pattern associated with mild diffuse wall thickening likely related to underdistention or mild nonspecific colitis. Mild submucosal fat within the colon suggesting chronic colonic inflammation. Mild sigmoid diverticulosis. APPENDIX: The appendix is not identified with certainty, butno pericecal inflammation is appreciated. STOMACH: Moderately dilated stomach with mild focal lobulated asymmetric thickening in the antropyloric region of the stomach and along the greater gastric curvature that may be related to nonspecific gastritis or neoplasm. PERITONEUM AND MESENTERY: Free Air: No evidence of pneumoperitoneum. Free Fluid: No evidence of significant free fluid, loculated fluid, peripherally enhancing abscess, or hemorrhage. Mesenteric and peritoneal fat: Mild diffuse hazy indura tion of the peritoneal fat without specific site of localization. LYMPH NODES: Scattered small nonspecific central mesenteric and retroperitoneal lymph nodes. 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 IVC: Normal caliber nonenhanced. ABDOMINAL ORGANS: Liver: Normal size and morphology without discrete lesion. PAGE 2 Signed Report (CONTINUED) Name: MAC AGUSTIN [facility] : 1945 Age/S: 74 / F [address] [place] [address] Unit #: [id number] Loc: [place] [id number] Phys: Facundo Phan MD Acct: [id number] Dis Date: Status: REG ER PHONE #: [phone] Exam Date: 09/26/2019 0546 FAX #: [phone] Reason: POSSIBLE PNEUMOPERITONEUM EXAMS: CPT CODE: [id number] CT CHEST W/O CONTRAST 62164 (Continued) Gallbladder: Postoperative change of cholecystectomy. Biliary Tree: Mildly prominent intrahepatic and extrahepatic bile ducts likely physiological in naturestatus post cholecystectomy. Kidneys: Normal size nonenhanced right kidney without nephrolithiasis, ureterolithiasis, hydronephrosis, or focal lesion. Small vascular calcifications are seen centrally in the right kidney. Mild left renal cortical atrophy associated with small central vascular calcifications. No definite nephrolithiasis, ureterolithiasis, or hydronephrosis. An ill-defined cyst is seen involving the left superior renal pole measuring 2.5 cm at 24 Hounsfield units. Adrenal Glands: Subtle central fullness versus a small nodule measuring 1.3 cm in the left adrenal gland. Normal right groin. Pancreas: Normal size and morphology without discrete lesion. Spleen: Small nonenhanced spleen. PELVIC ORGANS: Urinary bladder: Mildly under distended urinary bladder with small nondependent focus of gas suggesting recent catheterization or fistula. Reproductive organs: Absent uterus. Normal adnexa. SOFT TISSUES: Mild diffuse anasarca. Mild soft tissue gas in the right anterior pelvic and lower abdominal wall likely related to medication injection. OSSEOUS STRUCTURES: Mild to moderate lumbar spondylosis and facet arthrosis. 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 No acute fracture or di slocation. IMPRESSION: Nonspecific nonobstructive bowel gas pattern associated with mild diffuse colonic wall thickening either related to underdistention or nonspecific colitis. Mild submucosal fat seen in the colon suggest chronic colonic inflammatory change. PAGE 3 Signed Report (CONTINUED) Name: MAC BARLOW [facility] : 1945 Age/S: 74 / F [address] [place] [address] Unit #: [id number] Loc: [place] [address] Phys: Facundo Phan MD Acct: [id number] Dis Date: Status: REG ER PHONE #: [phone] Exam Date: 09/26/2019 0546 FAX #: [phone] Reason: POSSIBLE PNEUMOPERITONEUM EXAMS: CPT CODE: [id number] CT CHEST W/O CONTRAST 69599 (Continued) Mild sigmoid diverticulosis. Moderately dilated stomach with areas of asymmetric wall thickening in the antrum and greater gastric curvature that may represent gastritis or underlying neoplasm. Follow-up upper GI or endoscopy may be help ful. Additionally, a radionuclide gastric emptying study may be helpful if gastroparesis is suspected clinically. Mild left renal cortical atrophy associated with a small mildly complex cyst. Further evaluation may be obtained with renal ultrasound. Tiny focus of gas in the urinary bladder may represent recent catheterization or cold fistula with bowel. Mild diffuse anasarca. Normal size heart associated with moderate coronary artery calcifications. Mild hyperinflation associated with subsegmental atelectasis and scarring in both lungs greatest in the lung bases. 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 Mild soft tissue gas in the right anterior abdominal and pelvic wall likely related to recent medicationinjection. Postoperative change of cholecystectomy. 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 PAGE 4 Signed Report (CONTINUED) Name: MAC AGUSTIN [facility] : 1945 Age/S: 74 / F [address] [place] [address] Unit #: [id number] Loc: [place] [address] Phys: Facundo Phan MD Acct: [id number] Dis Date: Status: REG ER PHONE #: [phone] Exam Date: 09/26/2019 0546 FAX #: [phone] Reason: POSSIBLE PNEUMOPERITONEUM EXAMS: CPT CODE: [id number] CT CHEST W/O CONTRAST 40327 (Continued) CC:Facundo Phan MD Technologist:Kait Mckeon, RT(R) CTDI: DLP: Trnscb Date/Time: 09/26/2019 (628) [email or web address] Orig Print D/T: S: 09/26/2019 (0632) PAGE 5 Signed Report- CT HEAD/BRAIN W/O [id number] 06:09:00 Name: MAC AGUSTIN [facility] : 1945 Age/S: 74 / F [address] [place] [address] Unit #:[id number] Loc: [place] [address] Phys: Facundo Phan MD Acct: [id number] Dis Date: Status: REGER PHONE #: [phone] Exam Date: 09/26/2019545 FAX #: [phone] Reason: ALTERED MENTAL STATUS, EXAMS: CPT CODE: [id number] CT HEAD/BRAIN W/O CONT 04377 STUDY: - CT HEAD/BRAIN W/O CONT 09/26/20195:23 AM Ordering Physician: Facundo Phan MD Patient Name: MAC AGUSTIN MR: [id number] : 1947; Age: 72 years y/o Female Clinical Indication: ALTERED MENTAL STATUS, Comparison: None TECHN IQUE: Multiple contiguous transaxial noncontrast CT images were obtained through the head. Coronal and sagittal reformatted images were prepared. CT imaging performed at this location utilizes radiation dose optimization techniques which include one or more of the following: -Automated exposure control -Adjustment of the mA and/or kV according to patient size -Use of iterative reconstruction technique CT Radiation Dose DLP: 472.16 mGy-cm FINDINGS: BRAIN PARENCHYMA: Mild to moderate diffuse atrophyis present associated with mild nonspecific periventricular low attenuation most consistent with oldmicroangiopathic ischemic change. No evidence of acute intracranial hemorrhage, mass lesion, mass effect, midline shift, or extra-axial fluid collection. Small old appearing lacunar infarctions in bothbasal ganglia and the left thalamus. Mild to moderate calcification involving both internal carotid artery siphons and the vertebral arteries. VENTRICLES: The lateral ventricles, third ventricle, fourth ventricle, and basilar cisterns are appropriate for degree of atrophy present. PARANASAL SINUSES: Mild diffuse mucoperiosteal thickening in the ethmoid sinus in the left Vishal sinus. The visualized portions of the PAGE 1 Signed Report (CONTINUED) Name: MAC AGUSTIN [facility] : 1945 Age/S: 74 / F [address] [place], [place] [address]vd Unit #: [id number] Loc: [place] [address] Phys: Facundo Phan MD Acct: [id number] Dis Date: Status: REG ER PHONE #: [phone] Exam Date: 09/26/2019545 FAX #: [phone] Reason: ALTERED MENTAL STATUS, EXAMS: CPT CODE: [id number] CT HEAD/BRAIN W/O CONT 82322 (Continued) remaining paranasal sinuses are clear. MASTOIDS: Minimal opacification in both mastoids. ORBITS: The visualized portions of the orbits are normal. SOFT TISSUES: No significant abnormality. SKULL: No acute fracture or suspicious osseous lesion. Hyperostosis frontalis interna. IMPRESSION: Mild to moderate diffuse atrophy is present associated with mild nonspecific periventricular low attenuation most 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 No acute intracranial abnormality. Small old appearing lacunar infarctions in both basal ganglia and left thalamus. Mild chronic sinusitis. Minimal chronic bilateral mastoiditis. SL: TPAINTER-H at 0609 Reported and signed by: Amadeo Edward M.D. CC: Facundo Phan MD Technologist:RT Randy(R) CTDI: DLP: Trnscb Date/Time: 09/26/2019 (608) [email or web address] Orig Print D/T: S: 09/26/2019 (12) PAGE 2 Signed Report- CT C-SPINE W/O [id number] 06:04:00 Name: MAC AGUSTIN [facility] : 1945 Age/S: 74 / F [address] [place] [address] Unit #:[id number] Loc: [place] [address] Phys: Facundo Phan MD Acct: [id number] Dis Date: Status: [facility] PHONE #: [phone] Exam Date: 09/26/2019 0546 FAX #: [phone] Reason: ALTERED MENTAL STATUS EXAMS: CPT CODE: [id number] CT C-SPINE W/O CONT 57519 STUDY: - CT C-SPINE W/O CONT 09/26/2019 5:23 AM Ordering Physician: Facundo Phan MD Patient Name: MAC AGUSTIN MR: [id number] : 1947; Age: 72 years y/o Female Clinical Indication: ALTERED MENTAL STATUS Comparison: None Technique: M ultiple contiguous noncontrast CT images were obtained through the cervical spine. Coronal and sagittal reconstructions were prepared. CT imaging performed at this location utilizes radiation dose optimization techniques which include one or more of the following: -Automated exposure control -Adjustment of the mA and/or kV according to patient size -Use of iterative reconstruction technique CT Radiation Dose DLP: 330.60 mGy-cm FINDINGS: ALIGNMENT AND GENERAL ASSESSMENT: Mild loss of normal lordosis may be related to positioning or muscle spasm. Mild diffuse cervical spondylosis and facet arthrosis greatest in the lower cervical spine. Minimal grade 1 anterolisthesis of C5 on C6 appears degenerative in nature. No acute fracture, dislocation, or suspicious focal osseous lesion. DISK SPACES: Multilevel mild spinal canal narrowing and mild neural foraminal narrowing greatest in the mid and lower cervical spine. PREVERTEBRAL SOFT TISSUES: The prevertebral soft tissue thickness is normal. Mildly heterogeneous thyroid. Mild vascular calcification both carotid bifurcations and ICA origins. LUNG APICES: The visualized portions of the lung apices are clear. PAGE 1 Signed Report (CONTINUED) Name: MAC AGUSTIN [facility] : 1945 Age/S: 74 / F [address] [place] [address] Bl Unit #: [id number] Loc: [place] [address] Phys: Facundo Phan MD Acct: [id number] Dis Date: Status: REG ER PHONE #: [phone] Exam Date: 09/26/2019 0546 FAX #: [phone] Reason: ALTERED MENTAL STATUS EXAMS: CPT CODE: [id number] CT C- SPINE W/O CONT 94510 (Continued) Mastoids: Mild partial opacification of the ma stoid air cells bilaterally. IMPRESSION: Mild cervical spondylosis and facet arthrosis without acute fracture or dislocation. Mild chronic bilateral mastoiditis. SL: TPAINTER-H at 0604 Reported and signed by: Amadeo Edward M.D. CC: Facundo Phan MD Technologist:RT Randy(R) CTDI: DLP: Trnscb Date/Time: 09/26/2019 (06) [email or web address] Orig Print D/T: S: 09/26/2019 (0607) PAGE 2 Signed Report- XR CHEST 1 [id number] 05:43:00 FAX: Facundo Rivas MD [phone] [place]: St: REG Name: MAC AGUSTIN [facility] : 1947 Age/S: 72/F [address] [place] [address] Unit #: [id number] Loc: [place] [address] Phys: Facundo Phan MD Acct: [id number] Dis Date: Status: REG ER PHONE #: [phone] Exam Date: 09/26/2019 0532 FAX #: [phone] Reason: ALTERED MENTAL STATUS EXAMS: CPT CODE: [id number] XR CHEST 1 V 41768 Study: - XR CHEST 1 V 09/26/2019 5:23 AM Patient Name: MAC AGUSTIN MR: [id number] : 1947; Age: 72 years y/o Female Ordering Physician: Facnudo Phan MD Clinical Indication: ALTERED MENTAL STATUS Comparison: 09/26/2019 at 0400 hours FINDINGS LUNGS: Mildly hypoinflated but clear lungs without consol idation, pleural effusion, or pneumothorax. A skinfold is seen medially in the right lung apex. HEART AND MEDIASTINUM: Heart size near upper limits of normal accentuated by hypoinflation. LINES: Interval right IJ central line insertion tip overlying the atriocaval junction. OSSEOUS STRUCTURES: No fracture, dislocation, or suspicious focal osseous lesion. OTHER: None. IMPRESSION: Hypoinflation associated with interval right IJ central line insertion tip overlying the atriocaval junction without pneumothorax. SL: TPAINTER-H at 0443 Reported and signed by: Amadeo Edward M.D. PAGE 1 Signed Report (CONTINUED) FAX: Facundo Rivas MD [phone] [place]: St: REG Name: MAC AGUSTIN [facility] : 1947 Age/S: 72/F [address] [place] [address] Unit #: [id number] Loc: [place] [address] Phys: Facundo Phan MD Acct: [id number] Dis Date: Status: REG ER PHONE #: [phone] Exam Date: 09/26/2019531 FAX #: [phone] Reason: ALTERED MENTAL STATUS EXAMS: CPT CODE: [id number] XR CHEST 1 V 94225 (Continued) CC: Facundo Phan MD Technologist: RT Oliveroi(R) Trnscrd Date/Time/By: 09/26/2019 (0543) : By: [email or web address] Orig Print D/T: S: 09/26/2019 (0546) PAGE 2 Signed ReportARTERIAL BLOOD [id number] 04:53:00 Test Item Value Reference Range Interpretation Comments ARTERIAL BLOOD GAS PH 6.871 7.35-7.45 LL (test code = PHA) ARTERIAL BLOOD GAS 9.5 mmHg 35-45 LL PCO2 (test code = PCO2A) ARTERIAL BLOOD GAS 133 mmHg 80-100 H PO2 (test code = PO2A) BICARBONATE TOTAL 1.9 mmol/L 22.0-26.0 L HCO3 (test code = HCO3) BASE EXCESS (test < -30.0 mmol/L -4-4 L code = JACOB) ABG O2 SATURATION 97 % 90-100 N (test code = SATA) ABG DELIVERY (test Room Air Performed by code = CABRERA) certified opera moreira at [facility] ABG TEMPERATURE (test 91.7 F code = TEMPA) ABG SITE (test code = R Rad SITEA) TCO2 ARTERIAL (test < 5 code = TCO2A) B-TYPE NATRIURETIC [id number] 04:31:00 Test Item Value Reference Range Interpretation Comments B-TYPE NATRIURETIC PEPTIDE (test 304.2 PG/ML 0-100 H code = BNP) UA RFLX MICR CULT IF [id number] 04:27:00 Test Item Value Reference Range Interpretation Comments UA COLOR (test code = COLU) YELLOW YEL/STRAW UA APPEARANCE (test code = APPU) SL CLOUDY CLEAR UA GLUCOSE DIPSTICK (test code = 2+ NEGATIVE A DGLUU) UA BILIRUBIN DIPSTICK (test code NEGATIVE NEGATIVE = BILU) UA KETONE DIPSTICK (test code = TRACE NEGATIVE A KETU) UA SPECIFIC GRAVITY (test code = 1.011 1.005-1.030 N SGU) UA BLOOD DIPSTICK (test code = 1+ NEGATIVE A ESSIE) UA PH DIPSTICK (test code = AURORA) 5.0 5.0-7.0 N UA PROTEIN DIPSTICK (test code = 2+ NEGATIVE A PROU) UA UROBILINIOGEN DIPSTICK (test 0.2 mg/dL 0.2-1.0 code = URO) UA NITRITE DIPSTICK (test code = NEGATIVE NEGATIVE MEHDI) UA LEUKOCYTE ESTERASE DIPSTICK TRACE NEGATIVE A (test code = LEUU) UA WBC (test code = WBCU) 4-9 WBC/HPF 0-3 A UA RBC (test code = RBCU) 4-10 RBC/HPF 0-3 UA WBC NO REFLEX (test code = 4-9 WBC/HPF 0-3 A WBCUCL) UA BACTERIA (test code = BACU) 1+ /HPF NONE SEEN A UA SQUAMOUS CELLS (test code = 0-5 /HPF NONE SEEN SQU) UA MUCUS (test code = MUCU) TRACE /LPF NONE SEEN UA YEAST (BUDDING) (test code = 1+ /HPF NONE A YEASTUBD) Indication for culture: Flank PainSpecimen Description: CLEAN CATCHLACTIC ACID 2019-09-26 04:24:00 Test Item Value Reference Range Interpretation Comments LACTIC ACID (test code = LACT) 14.8 mmol/L 0.4-1.9 HH BASIC METABOLIC [id number] 04:23:00 Test Item Value Reference Range Interpretation Comments SODIUM (test code = NA) 144 mEq/L 134-147 N POTASSIUM (test code = 3.2 mEq/L 3.4-5.0 L K) CHLORIDE (test code = 114 mEq/L 100-108 H CL) CARBON DIOXIDE (test 4 mEq/L 21-33 L code = CO2) ANION GAP (test code = 29 0-20 H GAP) GLUCOSE (test code = 100 mg/dL 70-110 N GLU) BLOOD UREA NITROGEN 69 mg/dL 7-18 H (test code = BUN) GLOMERULAR FILTRATION 11.4 70-80 L Units of measure = RATE (test code = GFR) ml/mi n/1.73 m2 CREATININE (test code = 3.9 mg/dL 0.6-1.3 H CREAT) CALCIUM (test code = 5.6 mg/dL 8.0-10.5 LL CA) HEPATIC FUNCTION [id number] 04:23:00 Test Item Value Reference Range Interpretation Comments TOTAL PROTEIN (test code = PROT) 5.1 g/dL 6.4-8.2 L ALBUMIN (test code = ALB) 2.30 g/dL 3.4-5.0 L BILIRUBIN TOTAL (test code = 0.2 MG/DL <1.5 N BILT) BILIRUBIN DIRECT (test code = < 0.10 MG/DL 0.0-0.30 N BILD) BILIRUBIN INDIRECT (test code = 0.10 MG/DL BILIND) SGOT/AST (test code = AST) 7 IUnit/L 15-37 L SGPT/ALT (test code = ALT) 12 IUnit/L 15-65 L ALKALINE PHOSPHATASE TOTAL (test 39 IUnit/L 20-125 N code = ALKP) [id number] 04:23:00 Test Item Value Reference Range Interpretation Comments LIPASE (test code = LIP) 139 IUnit/L 73-393 N [id number] 04:23:00 Test Item Value Reference Range Interpretation Comments MAGNESIUM (test code = MAG) 0.90 mg/dL 1.8-2.4 LL TSH REFLEX TO [id number] 04:23:00 Test Item Value Reference Range Interpretation Comments TSH REFLEX TO FT4 (test code = 0.68 IU/mL 0.42-5.47 N TSHREFLEX) [id number] 04:23:00 Test Item Value Reference Range Interpretation Comments TROPONIN-I 0.029 ng/mL 0.000-0.045 N Negative: <= 0. 045 Positive: (test code = >= 0.046 Correl ation with TROPI) serial results, other cardiac markers andclin ical findings is necessary to determine the clinicalsignifi cance of this result. Results using different metho dologies should not be c omparedto one another as ilene titative results may fly y by method. CBC W/AUTO [id number] 04:22:00 Test Item Value Reference Range Interpretation Comments WHITE BLOOD CELL (test code = 22.50 x10 3/uL 4.5-11.0 H WBC) RED BLOOD CELL (test code = 4.48 x10 6/uL 3.54-5.02 N RBC) HEMOGLOBIN (test code = HGB) 13.5 g/dL 11.0-15.0 N HEMATOCRIT (test code = HCT) 44.2 % 33.0-45.0 N MEAN CELL VOLUME (test code = 98.7 fL 81.0-99.0 N MCV) MEAN CELL HGB (test code = 30.1 pg 27.0-33.0 N MCH) MEAN CELL HGB CONCETRATION 30.5 g/dL 33.0-37.0 L (test code = MCHC) RED CELL DISTRIBUTION WIDTH CV 13.4 % 11.5-14.5 N (test code = RDW) RED CELL DISTRIBUTION WIDTH SD 49.3 fL 37.0-54.0 N (test code = RDW-SD) PLATELET COUNT (test code = 331 x10 3/uL 150-400 N PLT) MEAN PLATELET VOLUME (test 12.1 fL 7.0-9.0 H code = MPV) MANUAL DIFF REQUIRED (test YES code = MDIFF) WBC [id number] 04:22:00 Test Item Value Reference Range Interpretation Comments SEGMENTED NEUTROPHILS (test 90.9 % 37-69 H code = SEG) LYMPHOCYTE (test code = 4.6 % 23-55 L LYMPH) MONOCYTE (test code = MON) 3.6 % 0-10 N MYELOCYTE (test code = 0.9 % 0.0-0.0 H MYELO) POIKILOCYTOSIS (test code = 2+ POIK) PLATELET ESTIMATE (test Adequate THOUSAND ADEQUATE code = PLTEST) PLATELET MORPHOLOGY (test LARGE PLATELETS code = PLTMORPH) CBC W/AUTO [id number] 04:19:00 Test Item Value Reference Range Interpretation Comments WHITE BLOOD CELL (test code = 22.50 x10 3/uL 4.5-11.0 H WBC) RED BLOOD CELL (test code = 4.48 x10 6/uL 3.54-5.02 N RBC) HEMOGLOBIN (test code = HGB) 13.5 g/dL 11.0-15.0 N HEMATOCRIT (test code = HCT) 44.2 % 33.0-45.0 N MEAN CELL VOLUME (test code = 98.7 fL 81.0-99.0 N MCV) MEAN CELL HGB (test code = 30.1 pg 27.0-33.0 N MCH) MEAN CELL HGB CONCETRATION 30.5 g/dL 33.0-37.0 L (test code = MCHC) RED CELL DISTRIBUTION WIDTH CV 13.4 % 11.5-14.5 N (test code = RDW) RED CELL DISTRIBUTION WIDTH SD 49.3 fL 37.0-54.0 N (test code = RDW-SD) PLATELET COUNT (test code = 331 x10 3/uL 150-400 N PLT) MEAN PLATELET VOLUME (test 12.1 fL 7.0-9.0 H code = MPV) MANUAL DIFF REQUIRED (test YES code = MDIFF) WBC [id number] 04:19:00 Test Item Value Reference Range Interpretation Comments ANISOCYTOSIS (test code = ANISO) PLATELET ESTIMATE (test code = THOUSAND ADEQUATE PLTEST) BASIC METABOLIC [id number] 04:19:00 Test Item Value Reference Range Interpretation Comments SODIUM (test code = NA) 144 mEq/L 134-147 N POTASSIUM (test code = 3.2 mEq/L 3.4-5.0 L K) CHLORIDE (test code = 114 mEq/L 100-108 H CL) CARBON DIOXIDE (test 4 mEq/L 21-33 L code = CO2) ANION GAP (test code = 29 0-20 H GAP) GLUCOSE (test code = 100 mg/dL 70-110 N GLU) BLOOD UREA NITROGEN 69 mg/dL 7-18 H (test code = BUN) GLOMERULAR FILTRATION 11.4 70-80 L Units of measure = RATE (test code = GFR) ml/mi n/1.73 m2 CREATININE (test code = 3.9 mg/dL 0.6-1.3 H CREAT) CALCIUM (test code = 5.6 mg/dL 8.0-10.5 LL CA) HEPATIC FUNCTION [id number] 04:19:00 Test Item Value Reference Range Interpretation Comments TOTAL PROTEIN (test code = PROT) 5.1 g/dL 6.4-8.2 L ALBUMIN (test code = ALB) 2.30 g/dL 3.4-5.0 L BILIRUBIN TOTAL (test code = 0.2 MG/DL <1.5 N BILT) BILIRUBIN DIRECT (test code = < 0.10 MG/DL 0.0-0.30 N BILD) BILIRUBIN INDIRECT (test code = 0.10 MG/DL BILIND) SGOT/AST (test code = AST) 7 IUnit/L 15-37 L SGPT/ALT (test code = ALT) 12 IUnit/L 15-65 L ALKALINE PHOSPHATASE TOTAL (test 39 IUnit/L 20-125 N code = ALKP) [id number] 04:19:00 Test Item Value Reference Range Interpretation Comments LIPASE (test code = LIP) 139 IUnit/L 73-393 N [id number] 04:19:00 Test Item Value Reference Range Interpretation Comments MAGNESIUM (test code = MAG) 0.90 mg/dL 1.8-2.4 LL TSH REFLEX TO [id number] 04:19:00 Test Item Value Reference Range Interpretation Comments TSH REFLEX TO FT4 (test code = IU/mL 0.42-5.47 TSHREFLEX) [id number] 04:19:00 Test Item Value Reference Range Interpretation Comments TROPONIN-I 0.029 ng/mL 0.000-0.045 N Negative: <= 0. 045 Positive: (test code = >= 0.046 Correl ation with TROPI) serial results, other cardiac markers andclin ical findings is necessary to determine the clinicalsignifi cance of this result. Results using different metho dologies should not be c omparedto one another as ilene titative results may fly y by method. CBC W/AUTO [id number] 04:19:00 Test Item Value Reference Range Interpretation Comments WHITE BLOOD CELL (test code = 22.50 x10 3/uL 4.5-11.0 H WBC) RED BLOOD CELL (test code = 4.48 x10 6/uL 3.54-5.02 N RBC) HEMOGLOBIN (test code = HGB) 13.5 g/dL 11.0-15.0 N HEMATOCRIT (test code = HCT) 44.2 % 33.0-45.0 N MEAN CELL VOLUME (test code = 98.7 fL 81.0-99.0 N MCV) MEAN CELL HGB (test code = 30.1 pg 27.0-33.0 N MCH) MEAN CELL HGB CONCETRATION 30.5 g/dL 33.0-37.0 L (test code = MCHC) RED CELL DISTRIBUTION WIDTH CV 13.4 % 11.5-14.5 N (test code = RDW) RED CELL DISTRIBUTION WIDTH SD 49.3 fL 37.0-54.0 N (test code = RDW-SD) PLATELET COUNT (test code = 331 x10 3/uL 150-400 N PLT) MEAN PLATELET VOLUME (test 12.1 fL 7.0-9.0 H code = MPV) MANUAL DIFF REQUIRED (test YES code = MDIFF) WBC [id number] 04:19:00 Test Item Value Reference Range Interpretation Comments ANISOCYTOSIS (test code = ANISO) PLATELET ESTIMATE (test code = THOUSAND ADEQUATE PLTEST) - XR CHEST 1 [id number] 04:10:00 FAX: Facundo Rivas MD [phone] [place]: St: PRE Name: MAC AGUSTIN Jaki [facility] : 1947 Age/S: 72/F [address] [place] [address] Unit #: [id number] Loc: [address] [place] [address] Phys: Facundo Phan MD Acct: [id number] Dis Date: Status: PRE ER PHONE #: [phone] Exam Date: 09/26/2019 0405 FAX #: [phone] Reason: SOB EXAMS: CPT CODE: [id number] XR CHEST 1 V 24124 Study: - XR CHEST 1 V 09/26/2019 3:41 AM Patient Name: MAC AGUSTIN MR: [id number] : 1947; Age: 72 years y/o Female Ordering Physician: Facundo Phan MD Clinical Indication: Shortness of breath. Comparison: None FINDINGS LUNGS: The hyperinflated lungs are clear consolidation, pleural effusion, and pneumothorax. Right paratracheal opacity likely represents the innominate vessels. HEART AND MEDIASTINUM: Normal size heart. LINES: None. OSSEOUS STRUCTURES: No fracture, dislocation, or suspicious focal osseous lesion. OTHER: Mildly dilated gas-filled stomach suspected beneath the left hemidiaphragm. Cholecystectomyclips in the right upper abdominal quadrant. IMPRESSION: Mildly hyperinflated, but clear lungs. Lucency beneath the left hemidiaphragm likely related to a mildly dilated gas-filled stomach. An upright view of the abdomen would be confirmatory and better exclude pneumoperitoneum. SL: TPAINTER-H at 0410 Reported and signed by: Amadeo Edward M.D. PAGE 1 Signed Report (CONTINUED) FAX: Facundo Rivas MD [phone] [place]: St: PRE -- Name: MAC AGUSTIN [facility] [place] : 1947 Age/S: 72/F [address] [place] [address] Unit #: [id number] Loc: [place] [address] Phys: Facundo Phan MD Acct: [id number] Dis Date: Status: PRE ER PHONE #: [phone] Exam Date: 09/26/2019 0405 FAX #: [phone] Reason: SOB EXAMS: CPT CODE: [id number] XR CHEST 1 V 68249 (Continued) CC: Facundo Phan MD Technologist: Lincoln Pretty RT(R) Trnscrd Date/Time/By: 09/26/2019 (0410) : By: [email or web address] Orig Print D/T: S: 09/26/2019 (0417) PAGE 2 SignedReportPROTHROMBIN [id number] 04:09:00 Test Item Value Reference Range Interpretation Comments PROTHROMBIN TIME 11.7 SECONDS 9.3-12.9 N PATIENT (test code = PTP) INTERNATIONAL NORMAL 1.1 0.8-1.2 N TARGET INR BY RATIO (test code = INDICATIO N Indication INR) INR1. Prophylax is of venous thrombos is 2.0 - 3.0 (orthoped ic surgery), Proph ylaxis of venous throm bosis (other than hig h-risk surgery), Treat ment of Deep Vein Thrombosis/Pulm onary Embolism, Preve ntion of systemic emb olism - Tissue heart va lves, Acute Myocardia l Infarction (to prevent systemic emboli sm), Valvular heart disease, Atrial Fibrillation, Bileaflet mecha nical valve in aortic position.2. Mec hanical prosthetic valv es (high risk), 2. 5 - 3.5 Presence of Lup us Anticoagulant o r Antiphospholipi d Antibodies, Pre vention of systemic emb olism - Acute Myocardia l Infarction (to prevent recurrent infar ct). 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 CBC W/AUTO [id number] 04:00:00 Test Item Value Reference Range Interpretation Comments WHITE BLOOD CELL (test code = 22.50 x10 3/uL 4.5-11.0 H WBC) RED BLOOD CELL (test code = 4.48 x10 6/uL 3.54-5.02 N RBC) HEMOGLOBIN (test code = HGB) 13.5 g/dL 11.0-15.0 N HEMATOCRIT (test code = HCT) 44.2 % 33.0-45.0 N MEAN CELL VOLUME (test code = 98.7 fL 81.0-99.0 N MCV) MEAN CELL HGB (test code = 30.1 pg 27.0-33.0 N MCH) MEAN CELL HGB CONCETRATION 30.5 g/dL 33.0-37.0 L (test code = MCHC) RED CELL DISTRIBUTION WIDTH CV 13.4 % 11.5-14.5 N (test code = RDW) RED CELL DISTRIBUTION WIDTH SD 49.3 fL 37.0-54.0 N (test code = RDW-SD) PLATELET COUNT (test code = 331 x10 3/uL 150-400 N PLT) MEAN PLATELET VOLUME (test 12.1 fL 7.0-9.0 H code = MPV) NEUTROPHIL % (test code = NT%) % 56.0-77.0 LYMPHOCYTE % (test code = LY%) % 14.0-32.0 NEUTROPHIL # (test code = NT#) x10 3/uL 2.0-7.6 LYMPHOCYTE # (test code = LY#) x10 3/uL 1.0-3.8 MANUAL DIFF REQUIRED (test code = MDIFF) BLOOD [id number] 07:52:00 Test Item Value Reference Range Interpretation Comments Report Text (test [facility] 2018-11-12 846 code = Report Text) Report Text7 (test BLOOD CULTURES HELD FOR code = Report 5 DAYS BEFORE FINAL Text7) Report Text8 (test code = Report Text8) Report Text9 (test [employer] OF code = Report MICROBIOLOGY SUGGESTS THAT Text9) Report Text10 (test MOST CASES OF BACTEREMIA code = Report ARE DETECTED BY USING Text10) Report Text11 (test THREE SETS OF SEPARATELY code = Report COLLECTED BLOOD CULTURES. Text11) Report Text12 (test [facility] 2018-11-12 847 code = Report Text12) Report Text13 (test CONVERSELY, A SINGLE BLOOD code = Report CULTURE MAY MISS Text13) Report Text14 (test INTERMITTENTLY OCCURRING code = Report BACTEREMIA AND MAKE Text14) Report Text15 (test IT DIFFICULT TO INTERPRET code = Report THE CLINICAL Text15) Report Text16 (test SIGNIFICANCE OF CERTAIN code = Report ISOLATED ORGANISMS. Text16) Report Text17 (test code = Report Text17) Report Text18 (test [facility] 2018-11-12 848 code = Report Text18) Report Text19 (test DRAWN FROM RIGHT code = Report ANTICUBITAL VEIN Text19) Report Text20 (test code = Report Text20) Report Text21 (test [facility] 2018-11-13 626 code = Report Text21) Report Text22 (test NO GROWTH WITHIN 1 DAY code = Report Text22) Report Text23 (test PRELIMINARY REPORT code = Report Text23) Report Text24 (test code = Report Text24) Report Text25 (test [facility] 2018-11-14 905 code = Report Text25) Report Text26 (test NO GROWTH WITHIN 2 DAYS code = Report Text26) Report Text27 (test PRELIMINARY REPORT code = Report Text27) Report Text28 (test code = Report Text28) Report Text29 (test B 2018-11-17 752 code = Report Text29) Report Text30 (test NO GROWTH WITHIN 5 DAYS code = Report Text30) Report Text31 (test FINAL REPORT code = Report Text31) BLOOD [id number] 07:52:00 Test Item Value Reference Range Interpretation Comments Report Text (test [facility] 2018-11-12 847 code = Report Text) Report Text7 (test BLOOD CULTURES HELD FOR code = Report 5 DAYS BEFORE FINAL Text7) Report Text8 (test code = Report Text8) Report Text9 (test [employer] OF code = Report MICROBIOLOGY SUGGESTS THAT Text9) Report Text10 (test MOST CASES OF BACTEREMIA code = Report ARE DETECTED BY USING Text10) Report Text11 (test THREE SETS OF SEPARATELY code = Report COLLECTED BLOOD CULTURES. Text11) Report Text12 (test [facility] 2018-11-12 848 code = Report Text12) Report Text13 (test CONVERSELY, A SINGLE BLOOD code = Report CULTURE MAY MISS Text13) Report Text14 (test INTERMITTENTLY OCCURRING code = Report BACTEREMIA AND MAKE Text14) Report Text15 (test IT DIFFICULT TO INTERPRET code = Report THE CLINICAL Text15) Report Text16 (test SIGNIFICANCE OF CERTAIN code = Report ISOLATED ORGANISMS. Text16) Report Text17 (test code = Report Text17) Report Text18 (test [facility] 2018-11-12 849 code = Report Text18) Report Text19 (test COLLECTION SITE code = Report UNSPECIFIED Text19) Report Text20 (test [facility] 2018-11-13 626 code = Report Text20) Report Text21 (test NO GROWTH WITHIN 1 DAY code = Report Text21) Report Text22 (test PRELIMINARY REPORT code = Report Text22) Report Text23 (test code = Report Text23) Report Text24 (test [facility] 2018-11-14 905 code = Report Text24) Report Text25 (test NO GROWTH WITHIN 2 DAYS code = Report Text25) Report Text26 (test PRELIMINARY REPORT code = Report Text26) Report Text27 (test code = Report Text27) Report Text28 (test [facility] 2018-11-17 752 code = Report Text28) Report Text29 (test NO GROWTH WITHIN 5 DAYS code = Report Text29) Report Text30 (test FINAL REPORT code = Report Text30) HEPATITIS C ANTIBODY [id number] 08:35:00 Test Item Value Reference Range Interpretation Comments SCRN HCV (test code NEGATIVE NEGATIVE Hepatiti s C Antibody test = SCRN HCV) is for screenin g purposes only. All react heri will be confirmed by additional test ing. ER SCREEN FOR HIV 08:35:00 Test Item Value Reference Range Interpretation Comments HIV 1/2 AB (test NEGATIVE NEGATIVE This test i s used for code = SCRN HIV) SCREENING p urposes only. All reactive re sults are prelimenary and confirmation re sults will follow. [id number] 08:29:00 Test Item Value Reference Range Interpretation Comments GLUCOSE (test code = URGLU) NEGATIVE MG/DL NEG-100 BILIRUBN (test code = URBILI) NEGATIVE NEGATIVE KETONE (test code = URKET) TRACE MG/DL NEGATIVE BLOOD (test code = URBLD) NEGATIVE UR PH (test code = URPH) 5.0 5.0-7.5 PROTEIN (test code = URPRO) TRACE MG/DL NEGATIVE NITRITES (test code = URNIT) NEGATIVE NEGATIVE UROBILINGEN (test code = 0.2 EU/DL 0.2-1.0 URURO) LEUKOCYT (test code = URLEU) NEGATIVE NEGATIVE UA COLOR (test code = UA YELLOW YELLOW COLOR) CLARITY (test code = CLARITY) CLOUDY CLEAR SP GRAV (test code = URSPGRAV) 1.025 1.000-1.025 UAMICRO (test code = UAMICRO) YES WBC (test code = URWBC) 0 /HPF 0-5 RBC (test code = URRBC) 0 /HPF 0-2 CASTS (test code = CAST) 6 /LPF 0-3 H UR EPI (test code = EPI) 3 /LPF BACTERIA (test code = NEGATIVE NONE BACTERIA) CRYSTALS (test code = MODERATE /HPF NONE CRYSTALS) CRYSTYPE (test code = URIC ACID CRYSTYPE) INFLUENZA [id number] 08:21:00 Test Item Value Reference Range Interpretation Comments FLU A (test code = FLU A) NEGATIVE NEGATIVE FLU B (test code = FLU B) NEGATIVE NEGATIVE FLU INTERNAL POSITIVE CNTRL (test PASS PASS code = FLU IPC) INFLUENZA LOT # (test code = [id number] FLULOT) INFLUENZA EXPIRATION DATE (test 11-09-2020 code = FLUEXP) ABDOMEN 2 [id number] 07:48:[address] [address]WACHMWTJKY IMAGING REPORTPatient Name: MAC HALL ADate of Service: [id number]: 73 Sex: F Order #: [id number] [facility] Number: [id number] Record Number: [id number] Hospital Number: [id number] Physician: EDGARDO ORTIZOrdercielo Physician: ASHLEY SALAS 2 VIEWS@0736 hours on 11/12/2018:CLINICAL HISTORY: Vomiting and diarrhea for 7 days; recent treatment forUTITECHNIQUE: Supine and erect views were obtainedFINDINGS: Gas pattern is nonspecific with air seen from the stomach to therectum.Moderate fecal residue is seen in the colon. There is no rectal andfraction.There are surgical clips seen in the right upper quadrant.Impression: No acute changes are demonstrated.Electronically Signed By: Juan Degroot M.D., 11/12/2018 7:46 AMLegally authenticated by LISA Simms 2018-11-12 07:46:[id number] 07:38:00 Test Item Value Reference Range Interpretation Comments WBC (test code = 9.0 K/UL 3.5-10.9 WBC) RBC (test code = 5.16 M/UL 4.0-5.0 H RBC) HGB (test code = 14.9 G/DL 11.5-15.5 HGB) HCT (test code = 46.4 % 34-46 H HCT) MCV (test code = 89.9 FL 80-98 MCV) MCH (test code = 28.9 PG 28-32 MCH) MCHC (test code = 32.1 G/DL 32.5-36.5 L MCHC) RDW (test code = 12.8 % 11.5-14.5 RDW) PLT (test code = 331 K/UL 150-450 PLT) MPV (test code = 11.3 FL 7.4-10.4 H MPV) MANDIFF (test code = NO MANDIFF) SCAN (test code = NO SCAN) NEUT% (test code = 64.6 % 40-75 NEUT%) LYMPH% (test code = 25.6 % 24-44 LYMPH%) MONO% (test code = 6.3 % 0-13 MONO%) EOS% (test code = 1.7 % 0-4 EOS%) BASO % (test code = 1.0 % 0-2 BASO%) IG (test code = IG) 0 % 0-1 IG% (test code = 0.8 % 0-1 IG% = Metam yelocytes, IG%) Myelocytes, and Promyelocytes. (Immature neutr ophils not including " bands".) > 3% IG indic ates risk of sepsis NRBC% (test code = 0 /100 WBC NRBC%) ABS NEUT (test code 5.8 K/UL 1.2-7.2 = NEUT) [id number] 07:20:00 Test Item Value Reference Range Interpretation Comments LIPASE (test code = LIPA) 358 U/L 23-300 H LIVER [id number] 07:20:00 Test Item Value Reference Range Interpretation Comments TOTPROT (test code = TOTPROT) 8.2 G/DL 6.3-8.2 ALBUMIN (test code = ALBSERUM) 4.6 G/DL 3.5-5.0 BILITOT (test code = BILITOT) 0.5 MG/DL 0.2-1.3 BILIDIR (test code = BILIDIR) 0.3 MG/DL 0.0-0.4 AST (test code = AST) 18 U/L 15-46 PHOSALK (test code = PHOSALK) 99 U/L 38-126 ALT (test code = ALT) 26 U/L 13-69 ISTAT CHEM [id number] 06:45:00 Test Item Value Reference Range Interpretation Comments ISTATNA (test code = ISTATNA) 137 MMOL/L 137-145 ISTATK (test code = ISTATK) 4.7 MMOL/L 3.6-5.0 ISTATCL (test code = ISTATCL) 101 MMOL/L 98-107 ISTIONCA (test code = ISTIONCA) 1.12 MMOL/L 1.12-1.32 ISTCO2 (test code = ISTCO2) 24 MMOL/L 22-30 ISTATGLU (test code = ISTATGLU) 163 MG/DL 65-110 H ISTATBUN (test code = ISTATBUN) 27.0 MG/DL 7.0-20.0 H ISTCREA (test code = ISTCREA) 1.7 MG/DL 0.7-1.5 H ISTATHCT (test code = ISTATHCT) 48 %PCV 37.0-52.0 ISTATHGB (test code = ISTATHGB) 16.3 G/DL 12.0-18.0 ISTANGAP (test code = ISTANGAP) 18 MMOL/L WHOLE BLOOD [id number] 21:25:00 Test Item Value Reference Range Interpretation Comments WHOLE BLOOD GLUCOSE (test code = 178 MG/DL 70-99 POC GLU) [id number] 20:13:00 Test Item Value Reference Range Interpretation Comments WBC (test code = 17.8 K/UL 3.5-10.9 H WBC) RBC (test code = 4.92 M/UL 4.0-5.0 RBC) HGB (test code = 14.4 G/DL 11.5-15.5 HGB) HCT (test code = 45.0 % 34-46 HCT) MCV (test code = 91.5 FL 80-98 MCV) MCH (test code = 29.3 PG 28-32 MCH) MCHC (test code = 32.0 G/DL 32.5-36.5 L MCHC) RDW (test code = 13.2 % 11.5-14.5 RDW) PLT (test code = 305 K/UL 150-450 PLT) MPV (test code = 10.6 FL 7.4-10.4 H MPV) MANDIFF (test code = NO MANDIFF) SCAN (test code = NO SCAN) NEUT% (test code = 88.0 % 40-75 H NEUT%) LYMPH% (test code = 7.2 % 24-44 L LYMPH%) MONO% (test code = 3.8 % 0-13 MONO%) EOS% (test code = 0.1 % 0-4 EOS%) BASO % (test code = 0.3 % 0-2 BASO%) IG (test code = IG) 0 % 0-1 IG% (test code = 0.6 % 0-1 IG% = Metam yelocytes, IG%) Myelocytes, and Promyelocytes. (Immature neutr ophils not including " bands".) > 3% IG indic ates risk of sepsis NRBC% (test code = 0 /100 WBC NRBC%) ABS NEUT (test code 15.7 K/UL 1.2-7.2 H = NEUT) [id number] 19:51:00 Test Item Value Reference Range Interpretation Comments GLUCOSE (test code = URGLU) >=1000 MG/DL NEG-100 BILIRUBN (test code = URBILI) NEGATIVE NEGATIVE KETONE (test code = URKET) 15 MG/DL NEGATIVE BLOOD (test code = URBLD) NEGATIVE UR PH (test code = URPH) 5.0 5.0-7.5 PROTEIN (test code = URPRO) NEGATIVE MG/DL NEGATIVE NITRITES (test code = URNIT) NEGATIVE NEGATIVE UROBILINGEN (test code = 0.2 EU/DL 0.2-1.0 URURO) LEUKOCYT (test code = URLEU) NEGATIVE NEGATIVE UA COLOR (test code = UA YELLOW YELLOW COLOR) CLARITY (test code = CLARITY) CLEAR CLEAR SP GRAV (test code = URSPGRAV) 1.023 1.000-1.025 UAMICRO (test code = UAMICRO) NO WHOLE BLOOD [id number] 19:40:00 Test Item Value Reference Range Interpretation Comments WHOLE BLOOD GLUCOSE (test code = 253 MG/DL 70-99 H POC GLU) ISTAT CHEM [id number] 18:15:00 Test Item Value Reference Range Interpretation Comments ISTATNA (test code = ISTATNA) 142 MMOL/L 137-145 ISTATK (test code = ISTATK) 3.9 MMOL/L 3.6-5.0 ISTATCL (test code = ISTATCL) 106 MMOL/L 98-107 ISTIONCA (test code = ISTIONCA) 1.11 MMOL/L 1.12-1.32 L ISTCO2 (test code = ISTCO2) 24 MMOL/L 22-30 ISTATGLU (test code = ISTATGLU) 78 MG/DL 65-110 ISTATBUN (test code = ISTATBUN) 24.0 MG/DL 7.0-20.0 H ISTCREA (test code = ISTCREA) 0.7 MG/DL 0.7-1.5 ISTATHCT (test code = ISTATHCT) 44 %PCV 37.0-52.0 ISTATHGB (test code = ISTATHGB) 15.0 G/DL 12.0-18.0 ISTANGAP (test code = ISTANGAP) 17 MMOL/L CT HEAD W/O [id number] 18:14:[address] [address]RKMKPUWFIV IMAGING REPORTPatient Name: MAC HALL ADate of Service: [id number]: 73 Sex: F Order #: [id number] Room: [facility]: 1945 X-Ray Number: [id number] Record Number: [id number] Hospital Number: [id number] Physician: KIMBERLY HIGGINS TANOrdering Physician: IHSAN SALAS HEAD:HISTORY: Mental status changes.TECHNIQUE: Unenhanced CT axial images of the brain with sagittal andcoronal reformatted images.This CT exam was performed using one or more of the following dosereduction techniques: Automated exposure control, adjustment of the MAand/or KV according to patient size or use of iterative reconstructiontechnique.FINDINGS: CT head images demonstrate no acute appearing intracranialabnormalities. There are chronic appearing microvascular ischemic changespresent. There is mild cortical atrophy seen. The ventricles are symmetricand midline. The fuentes-white matter differentiation is intact. The calvariumappears intact.IMPRESSION:No acute appearing intracranial abnormalities.Electronically Signed By: Ed alanis M.D., 10/20/2018 6:12 PMLegally authenticated by EDER Craft 2018-10-20 18:12:33CHEST 1 VIEW [id number] 18:00:[address] [address]FKYUDEPQXL IMAGING REPORTPat ient Name: Jd HALL of Service: [id number]: 73 Sex: F Order #: [id number] Room: [facility]: 1945 X-Ray Number: [id number] Record Number: [id number] Hospital Number: [id number] Physician: KIMBERLY HIGGINS TANOrdering Physician: Blanca SALAS.10/20/2018 5:56 PMHistory: Mental status changes.Technique: Single AP chest projection.Findings: Single chest projection demonstrates normalheart size and clearlungs. The osseous structures appear intact.Impression:No acute-appearing cardiopulmonary abnormalities.Electronically Signed By: Ed Cummings M.D., 10/20/2018 5:58 PMLegally authenticated by EDER Craft 2018-10-20 17:58:21[O] Hemoglobin A1c (in office)2018-08-09 16:40:00 Test Item Value Reference Range Interpretation Comments HEMOGLOBIN A1c (test code = 4548-4) 9.3 [facility][Q] URINALYSIS, COMPLETE W/RFL CULTURE (REFL)2018-08-02 15:24:00 Test Item Value Reference Range Interpretation Comments COLOR; Normal (test code = 5778-6) YELLOW YELLOW N APPEARANCE (test code = APPEARANCE) CLEAR CLEAR N SPECIFIC GRAVITY; Normal (test code 1.020 1.001-1.035 N = 2965-2) PH; Normal (test code = 2756-5) 6.0 5.0-8.0 N GLUCOSE; Abnormal (test code = 3+ NEGATIVE A 1547-9) BILIRUBIN; Normal (test code = NEGATIVE NEGATIVE N 71733-1) KETONES; Normal (test code = NEGATIVE NEGATIVE N 09215-8) OCCULT BLOOD; Normal (test code = NEGATIVE NEGATIVE N 79391-0) PROTEIN; Normal (test code = NEGATIVE NEGATIVE N 06467-7) NITRITE (test code = NITRITE) NEGATIVE NEGATIVE N LEUKOCYTE ESTERASE (test code = NEGATIVE NEGATIVE N LEUKOCYTE ESTERASE) WBC; Normal (test code = 6690-2) 0-5 < OR = 5 N RBC; Normal (test code = 789-8) NONE SEEN < OR = 2 N SQUAMOUS EPITHELIAL CELLS; Normal NONE SEEN < OR = 5 N (test code = 09100-3) BACTERIA; Normal (test code = NONE SEEN NONE SEEN N 630-4) HYALINE CAST; Normal (test code = NONE SEEN NONE SEEN N 74644-2) [facility][Q] REFLEXIVE URINE [id number] 15:24:00 Test Item Value Reference Range Interpretation Comments REFLEXIVE URINE CULTURE NO CULTURE INDICATED (test code = REFLEXIVE URINE CULTURE) [facility][O] Urine Dipstick (In Office)2018-07-09 16:23:00 Test Item Value Reference Range Interpretation Comments Glucose (test code = Glucose) 1000 LEUKOCYTES (test code = LEUKOCYTES) negative NITRITE (test code = 66969-2) negative UROBILINOGEN (test code = 43063-9) 0.2 PROTEIN (test code = 14512-9) negative pH (test code = pH) 5.0 URINE BLOOD (test code = 29549-9) trace SPECIFIC GRAVITY (test code = 1.020 2965-2) KETONES (test code = 38369-7) 40 BILIRUBIN (test code = 09278-0) negative [facility]] LIPID [id number] 14:55:00 Test Item Value Reference Range Interpretation Comments CHOLESTEROL, 298 mg/dl <200 TOTAL; Above High Threshold (test code = 2093-3) HDL CHOLESTEROL; 48 mg/dl >50 Below Low Threshold (test code = 2085-9) TRIGLYCERIDES; 350 mg/dl <150 Above High Threshold (test code = 2571-8) LDL-CHOLESTEROL; 191 {MG/DL LDL-C level s > or = 190 Above High JENNIFER} mg/dL may indic ate Threshold (test familial code = 10711-9) hypercholest erolemia (FH). Clinical assess ment and measurement of blood lipid levels should b e considered for all first degree relative s of patients with a n FH diagnosis. For questions about testing f or familialhyperch abebestcesialefreedom ia, please call [facility] at [phone] .Fanta Salcedo, et al. J Ava ional Lipid Association Recommendations for Patient-Centere d Management of Dyslipidemia: P art 1 Journal of Clin ical Lipidology 2015 ;9(2), 129-169.Referen ce range: <100 Desirable range <100 mg/dL for prima ry prevention; <70 mg/dL for patients with C HD or diabetic patien ts with > or = 2 CHD risk factors. LDL-C is now ca lculated using the Theresa Behtea calculation, wh ich is a validated novel method providing roby r accuracy than the Friede qi equation in the estimation of LDL-C. Theresa YAN et al. VANESSA. 2013;310( 19): 5594-1035 (http://educati eThor.com/fa q/GKG161) CHOL/HDLC RATIO 6.2 {CALC} <5.0 (test code = CHOL/HDLC RATIO) NON HDL 250 {MG/DL <130 Non-HDL level > or = 220 CHOLESTEROL (test JENNIFER} is very hi gh and may code = NON HDL indicate gene tic familial CHOLESTEROL) hypercholestero lemia (FH). Clinical assess ment and measurement of blood lipid levels should b e considered for all first-degree re latives of patients with a n FH diagnosis. For patients with diabetes p crystal 1 major ASCVD risk fact or, treating to a n on-HDL-C goal of <100 mg /dL (LDL-C of <70 mg/dL) i s considered a th erapeutic option. [facility]] MICROALBUMIN, RANDOM URINE (W/CREATININE)2018-07-09 14:55:00 Test Item Value Reference Range Interpretation Comments CREATININE, RANDOM 75 mg/dl 20-275 N URINE (test code = CREATININE, RANDOM URINE) MICROALBUMIN (test 2.3 mg/dl N Reference RangeNot code = established MICROALBUMIN) MICROALBUMIN/CREATI 31 {MCG/MG <30 The ADA defines NINE RATIO, RANDOM CRE} abnormali ties in URINE (test code = albuminex cretion as MICROALBUMIN/CREATI follows: Category NINE RATIO, RANDOM Result (m cg/mg URINE) creatinine) Nor mal <30Microalbumin uria 30-299 Clinical albuminuria > O R = 300 The ADA recomme nds that at least two of threespecimens collected withi n a 3-6 month period be abnormal before consider ing a patient to bewi thin a diagnostic keyona gory. [facility]] CMP [id number] 14:55:00 Test Item Value Reference Range Interpretation Comments GLUCOSE; Above 456 mg/dl 65-99 Verified by r epcharli High Threshold analysis. Fas ting (test code = reference inter malini For 1547-9) someone without known diabetes, a glucosevalue >1 25 mg/dL indicates that they may havedi abetes and this should be confirmed with afollow-up test . UREA NITROGEN 16 mg/dl 7-25 N (BUN) (test code = UREA NITROGEN (BUN)) CREATININE (test 0.92 mg/dl 0.60-0.93 N For patient s >49 years code = of age, the ref erence CREATININE) limitfor Creati nine is approximately 1 3% higher for peopleidentifie d as -Aicha n. eGFR NON- 63 {ML/MIN/1.7} > OR = 60 N CUBAN (test code = eGFR NON-) eGFR 73 {ML/MIN/1.7} > OR = 60 N CUBAN (test code = eGFR ) BUN/CREATININE NOT APPLICABLE 6-22 RATIO (test code = BUN/CREATININE RATIO) SODIUM (test code 133 mmol/L 135-146 = SODIUM) POTASSIUM (test 4.5 mmol/L 3.5-5.3 N code = POTASSIUM) CHLORIDE (test 94 mmol/L 98-110 code = CHLORIDE) CARBON DIOXIDE 24 mmol/L 20-32 N (test code = CARBON DIOXIDE) CALCIUM (test 10.5 mg/dl 8.6-10.4 code = CALCIUM) PROTEIN, TOTAL 7.6 g/dl 6.1-8.1 N (test code = PROTEIN, TOTAL) ALBUMIN (test 4.2 g/dl 3.6-5.1 N code = ALBUMIN) GLOBULIN (test 3.4 {G/DL CALC} 1.9-3.7 N code = GLOBULIN) ALBUMIN/GLOBULIN 1.2 {CALC} 1.0-2.5 N RATIO (test code = ALBUMIN/GLOBULIN RATIO) BILIRUBIN, TOTAL; 0.5 mg/dl 0.2-1.2 N Normal (test code = 14546-1) ALKALINE 76 u/l 33-130 N PHSPHATASE (test code = ALKALINE PHSPHATASE) AST; Normal (test 13 u/l 10-35 N code = 1916-6) ALT; Normal (test 23 u/l 6-29 N code = 1742-6) [facility]] CBC (INCLUDES DIFF/PLT)2018-07-09 14:55:00 Test Item Value Reference Range Interpretation Comments WHITE BLOOD CELL COUNT 10.0 {Thousand/u} 3.8-10.8 N (test code = WHITE BLOOD CELL COUNT) RED BLOOD CELL COUNT (test 5.42 {Million/uL} 3.80-5.10 code = RED BLOOD CELL COUNT) HEMAGLOBIN; Above High 16.0 g/dl 11.7-15.5 Threshold (test code = 03158-2) HEMATOCRIT; Above High 48.4 % 35.0-45.0 Threshold (test code = 4544-3) MCV; Normal (test code = 89.3 fL 80.0-100.0 N 787-2) MCHC; Normal (test code = 33.1 g/dl 32.0-36.0 N 34341-3) RDW; Normal (test code = 13.0 % 11.0-15.0 N 788-0) PLATELET COUNT; Normal 334 {Thousand/u} 140-400 N (test code = 777-3) MPV; Normal (test code = 11.9 fL 7.5-12.5 N 40595-0) ABSOLUTE NEUTROPHILS (test 5740 {cells/uL} 3560-2332 N code = ABSOLUTE NEUTROPHILS) ABSOLUTE LYMPHOCYTES (test 3240 {cells/uL} 850-3900 N code = ABSOLUTE LYMPHOCYTES) ABSOLUTE MONOCYTES (test 700 {cells/uL} 200-950 N code = ABSOLUTE MONOCYTES) ABSOLUTE EOSINOPHILS (test 220 {cells/uL} 15-500 N code = ABSOLUTE EOSINOPHILS) ABSOLUTE BASOPHILS (test 100 {cells/uL} 0-200 N code = ABSOLUTE BASOPHILS) NEUTROPHILS (test code = 57.4 % N NEUTROPHILS) LYMPHOCYTES (test code = 32.4 % N LYMPHOCYTES) MONOCYTES; Normal (test 7.0 % N code = 29717-7) EOSINOPHILS; Normal (test 2.2 % N code = 55803-1) BASOPHILS; Normal (test 1.0 % N code = 66345-1) [facility]] TSH, 3RD [id number] 14:55:00 Test Item Value Reference Range Interpretation Comments TSH; Normal (test code = 1.49 {MIU/L} 0.40-4.50 N 38809-7) [facility]] CULTURE, URINE, [id number] 14:55:00 Test Item Value Reference Range Interpretation Comments CULTURE (test code See Comment A CULTURE, URINE, ROUTINE = CULTURE) MICRO NUMBER: [id number] TEST STATUS: FI NAL SPECIMEN SOURCE : URINE SPECIMEN QUALIT Y: ADEQUATE RESULT : 50,000-100,000 CFU/mL of Group B Strepto coccus isolated Beta-h emolytic Streptococci ar e predictably dylon ceptible to penicillin a nd other beta-lactams. Susceptibility testing not routinely p erformed. COMMENT: Erythr omycin and clindamycin are not recommended for treatment of ur inary tract infection s, but clindamycin may be useful for duran tment of rectovaginal colonization or infection. COMM ENT: Additional orga nism(s) less than 10,00 0 CFU/mL isolated. These organisms, comm only found on machine trimmer al and internal genita rban, are considered colo nizers. No further test ing performed. [facility][O] Hemoglobin A1c (in office)2018-07-09 13:38:00 Test Item Value Reference Range Interpretation Comments HEMOGLOBIN A1c (test code = 4548-4) 12.5 [facility]] CULTURE, URINE, [id number] 00:00:00 Test Item Value Reference Range Interpretation Comments CULTURE (test code See Comment A CULTURE, URINE, ROUTINE = CULTURE) MICRO NUMBER: [id number] TEST STATUS: FI NAL SPECIMEN SOURCE : URINE SPECIMEN QUALIT Y: ADEQUATE RESULT : 50,000-100,000 CFU/mL of Group B Strepto coccus isolated Beta-h emolytic Streptococci ar e predictably millan sceptible to penicillin a nd other beta-lactams. Susceptibility testing not routinely p erformed. COMMENT: Erythr omycin and clindamycin are not recommended for treatment of ur inary tract infection s, but clindamycin may be useful for duran tment of rectovaginal colonization or infection. COMM ENT: Additional orga nism(s) less than 10,00 0 CFU/mL isolated. These organisms, comm only found on machine trimmer al and internal genita bran, are considered colo nizers. No further test ing performed. [facility]
[2022-05-05 14:09] LABS: Absolute Lymphocytes (CBC) 2.8 K/uL (0.7-4.9); Hematocrit 43.6 % (36.0-45.0); Lymphocytes % 31.7 % (15.3-44.8); MCV 87.4 fL (80-100); MPV 8.9 fL (7.6-11.3); RBC Red Blood Cell Count 4.99 M/uL (3.86-4.86)
[2022-05-05 14:37] LABS: Potassium 4.3 mmol/L (3.5-5.1)
--- NOTE | 2022-05-05 14:59 | RAD REPORT ---
EXAM DESCRIPTION: CT - Head C Spine Mpr Wo Con - 05/05/2022 2:40 pm CLINICAL HISTORY: Head and neck injury status post fall. Head and neck pain COMPARISON: None. TECHNIQUE: Computed axial tomography of the head and cervical spine was obtained. Sagittal and coronal reconstruction was performed. All CT scans are performed using dose optimization technique as appropriate and may include automated exposure control or mA/KV adjustment according to patient size. FINDINGS: An intracranial bleed is not seen. The ventricles are normal in caliber. An extra-axial fl uid collection is not noted. No significant hypodensity within the brain. A cervical fracture is not visualized. No dislocation is noted. IMPRESSION: No acute intracranial abnormality is seen. A cervical fracture is not visualized. If the patient continues to have symptoms to suggest intracra nial /spinal cord pathology then MRI would be recommended
--- NOTE | 2022-05-05 15:02 | RAD REPORT ---
EXAM DESCRIPTION: RAD - Wrist Left 3 View - 05/05/2022 2:18 pm CLINICAL HISTORY: Left wrist pain status post injury FINDINGS: The bones are osteoporotic. No dislocation Small bony density along the dorsal aspect of the wrist could represent an avulsion fracture. Age is indeterminate. Clinical correlation is needed to see if the patient has point tenderness in this jenny on to suggest acuity.
--- NOTE | 2022-05-05 15:04 | RAD REPORT ---
EXAM DESCRIPTION: RAD - Shoulder Left 2 View - 05/05/2022 2:18 pm CLINICAL HISTORY: Left shoulder pain status post fall FINDINGS: No fracture or dislocation is seen. Bones are osteoporotic. If patient continues to have symptoms to suggest an occult fracture or tendon injury MRI would be recommended
--- NOTE | 2022-05-05 15:10 | RAD REPORT ---
EXAM DESCRIPTION: CT - Facial Bones W/ Mpr - 05/05/2022 2:40 pm CLINICAL HISTORY: Facial injury status post fall COMPARISON: None TECHNIQUE: Computed axial tomography of the face was obtained. Coronal and sagittal reconstruction w as performed. All CT scans are performed using dose optimization technique as appropriate and may include automated exposure control or mA/KV adjustment according to patient size. FINDINGS: Mildly displaced nasal bone fractures Nasal septum deviated to the left A TMJ dislocation is not noted. The globes are intact. Fluid within the sinuses is not seen. IMPRESSION: Mildly displaced nasal bone fractures
[2022-05-05] MEDS ORDERED: TETANUS & DIPHTHERIA TOX,ADULT 0.5 ML VIAL ONE (15:35)
[2022-05-05] MEDS ORDERED: ACETAMINOPHEN 500 MG TAB ONE (15:36)
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
[2022-05-05 16:23] VITALS: TEMP 97.1
[2022-05-05 16:39] VITALS: BP 135/61; O2SAT 99
== END 2022-05-05 16:07 | disposition home or self-care (01) ==
LOC: ER 13:25
PROC: 2W3DX1Z Immobilization of Left Lower Arm using Splint (ICD-10-PCS; principal; 2022-05-05)
DX: S02.2XXA Fracture of nasal bones, initial encounter for closed fracture (principal); S52.502A Unspecified fracture of the lower end of left radius, initial encounter for closed fracture; S00.31XA Abrasion of nose, initial encounter; S00.83XA Contusion of other part of head, initial encounter; R79.89 Other specified abnormal findings of blood chemistry; E11.9 Type 2 diabetes mellitus without complications; Z88.0 Allergy status to penicillin; Z23 Encounter for immunization
CPT/HCPCS: 36415; 70450; 70486; 72125; 76377; 80048; 85025; 86850; 86900; 86901; 90714; 96372; 99285

== ENCOUNTER → 2023-07-26 | Emergency (ER) | payer OTHER ==
--- OUTSIDE RECORDS SUMMARY | 2023-07-26 02:29 | XMS REPORT | Continuity of Care Document ---
Author Name Unknown Address [address] [place] [address] [facility] Address [address] [place] [address] Care Team Providers Care Youth Probation Officer Name Role Phone VANESSA MC M.D. Attending Clinician Mitchell Crockett Attending Clinician DAVID Means NP Attending Clinician Unavailable Payers Payer Name Policy Type Policy Number Effective Date Expirati on Date Source Problems Condition Name Condition Details Condition Category Status Onset Date Resolution Date Last Treatment Date Treating Clinician Comments Source Diabetes mellitus Diabetes mellitus Problem Active [facility] Belching Belching Problem Active [facility] Decreased activities of daily living (ADL) Decreased activities of daily living (ADL) Problem Active [facility] Dementia Dementia Problem Active [facility] GERD (gastroeso phageal reflux disease) GERD (gastroeso phageal reflux disease) Problem Active [facility] Hearing difficulty of both ears Hearing difficulty of both ears Problem Active [facility] Positive depression screening Positive depression screening Problem Active [facility] History of Yeast vaginitis History of Yeast vaginitis Problem Resolve d [facility] Hyperlipid emia Hyperlipid emia Problem Active [facility] History of urinary frequency History of urinary frequency Problem Resolve d [facility] 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 [facility] Headache Headache Problem Active [facility] History of urinary tract infection History of urinary tract infection Problem Resolve d [facility] History of vaginal pruritus History of vaginal pruritus Problem Resolve d [facility] At risk for falling At risk for falling Problem Active [facility] Coordinati on of complex care Coordinati on of complex care Problem Active [facility] Acute pain of left knee Acute pain of left knee Problem Active [facility] Incontinen ce in female Incontinen ce in female Problem Active [facility] Allergies, Adverse Reactions, Alerts Allergy Name Allergy Type Status Severity Reaction(s) Onset Date Inactive Date Treating Clinician Comments Source penicill amine DA Active U 16 00:00: 00 [facility] penicill amine DA Active U UNKNOWN 16 00:00: 00 [facility] Penicill ins drug allergy Active [facility] Statins drug allergy Active [facility] Family History Family Member Diagnosis Comments Start Date Stop Date Sourc e Mother Family history of dementia [facility] Mother Family history of Di abetes mellitus of other type with microalbuminuria, with long-term current use of insulin [facility] Social History Smoking Status Start Date Stop Date Source Former smoker [facility] Medications Ordered Medication Name Filled Medication Name Start Date Stop Date Current Medication? Ordering Clinician Indication Dosage Frequency Signature (SIG) Comments Components Source traMADol HCl - 50 MG Oral Tablet traMADol HCl - 50 MG Oral Tablet 09-10 00:00: 00 Yes DAVID VALDERRAMA N.P. Q0.3333D TAKE 1 TABLET 3 TIMES DAILY NEEDED. [facility] Butalbital- APAP-Caffei ne 50-325-40 MG Oral Tablet Butalbital- APAP-Caffei ne 50-325-40 MG Oral Tablet 28 00:00: 00 Yes VANESSA MC M.D. TAKE 1 TABLET EVERY 4 TO 6 HOURS NEEDED FOR PAIN. [facility] Walker Walker 2-06 00:00: 00 Yes VANESSA MC M.D. USE DIRECTED. [facility] Omeprazole 20 MG Oral Tablet Delayed Release Omeprazole 20 MG Oral Tablet Delayed Release 2-04 00:00: 00 Yes VANESSA MC M.D. 2 TAKE 2 TABLET Before meals [facility] metFORMIN HCl ER 500 MG Oral Tablet Extended Release 24 Hour metFORMIN HCl ER 500 MG Oral Tablet Extended Release 24 Hour 07-12 00:00: 00 Yes VANESSAPATRICK REYESAM Bert. QD TAKE 2 TABLETS ONCE DAILY WITH THE EVENING MEAL. [facility] Probiotic Oral Tablet Delayed Release Probiotic Oral Tablet Delayed Release 07-09 00:00: 00 Yes 1 QD TAKE 1 TABLET DAILY [facility] HumuLIN 70/30 KwikPen (70-30) 100 UNIT/ML Subcutaneou s Suspension Pen-injecto r HumuLIN 70/30 KwikPen (70-30) 100 UNIT/ML Subcutaneou s Suspension Pen-injecto r 07-09 00:00: 00 Yes VANESSA JESUSITA Keira.Dulce. 30 units in AM and 20 units in PM [facility] Microlet Lancets Microlet Lancets 07-09 00:00: 00 Yes VANESSA JESUSITA M.D. USE DIRECTED. 3 TIMES DAILY [facility] Contour Next Test In Vitro Strip Contour Next Test In Vitro Strip 07-09 00:00: 00 Yes VANESSA JESUSITA M.Dulce. Q0.3333D TEST 3 TIMES DAILY. [facility] Pen [place] 31G X 6 MM Pen [place] 31G X 6 MM 07-09 00:00: 00 Yes VANESSA JESUSITA M.D. USE DIRECTED WITH DAILY INJECTION [facility] Vital Signs Vital Name Observation Time Observation Value Comments S ource BP Systolic 2018-09-10 13:14:00 117 mm[Hg] Location : E; Position: Sitting [facility] BP Diastolic 2018-09-10 13:14:00 77 mm[Hg] Location : RUE; Position: Sitting [facility] Height 2018-09-10 13:14:00 61 [in_us] [facility] Weight 2018-09-10 13:14:00 169 [lb_av] [facility] Body Mass Index Calculated 2018-09-10 13:14:00 31.93 kg/m2 [facility] Temperature 2018-09-10 13:14:00 97.4 [degF] Method: Temporal [facility] Heart Rate 2018-09-10 13:14:00 95 /min [facility] O2 SAT 2018-09-10 13:14:00 97 % [facility] BP Systolic 2018-08-09 15:44:00 98 mm[Hg] Location : LUE; Position: Sitting [facility] BP Diastolic 2018-08-09 15:44:00 64 mm[Hg] Location : LUE; Position: Sitting [facility] Weight 2018-08-09 15:44:00 168.4 [lb_av] [facility] Body Mass Index Calculated 2018-08-09 15:44:00 31.82 kg/m2 [facility] Temperature 2018-08-09 15:44:00 97.4 [degF] Method: Temporal [facility] O2 SAT 2018-08-09 15:44:00 98 % Source: RA [facility] Heart Rate 2018-08-09 15:44:00 73 /min [facility] BP Systolic 2018-07-16 16:25:00 102 mm[Hg] Location : LUE; Position: Sitting [facility] BP Diastolic 2018-07-16 16:25:00 70 mm[Hg] Location : LUE; Position: Sitting [facility] Height 2018-07-16 16:25:00 61 [in_us] [facility] Weight 2018-07-16 16:25:00 164.4 [lb_av] [facility] Body Mass Index Calculated 2018-07-16 16:25:00 31.06 kg/m2 [facility] Temperature 2018-07-16 16:25:00 97 [degF] Method: Temporal [facility] Heart Rate 2018-07-16 16:25:00 79 /min [facility] O2 SAT 2018-07-16 16:25:00 98 % [facility] BP Systolic 2018-07-09 13:23:00 107 mm[Hg] Location : LUE; Position: Sitting [facility] BP Diastolic 2018-07-09 13:23:00 72 mm[Hg] Location : LUE; Position: Sitting [facility] Height 2018-07-09 13:23:00 61 [in_us] [facility] Weight 2018-07-09 13:23:00 155.4 [lb_av] [facility] Body Mass Index Calculated 2018-07-09 13:23:00 29.36 kg/m2 [facility] Temperature 2018-07-09 13:23:00 97.4 [degF] Method: Temporal [facility] Heart Rate 2018-07-09 13:23:00 93 /min [facility] O2 SAT 2018-07-09 13:23:00 99 % Source: RA [facility] Procedures Procedure Date / Time Performed Performing Clinician Source [id number] 2019-09-27 00:00:00 ACHLISA [facility] [id number] 2019-09-26 00:00:[address] [facility] [id number] 2019-09-26 00:00:[address] [facility] [id number] 2019-09-26 00:00:[address] [facility] [id number] 2019-09-26 00:00:[address] [facility] [id number] 2019-09-26 00:00:[address] [facility] [B] KNEE 3 VIEWS 2018-09-10 00:00:[address] [facility] [address] Brain wo contrast [id number] 2018-08-09 00:00:00 [facility] [Q] URINALYSIS, COMPLETE W/RFL CULTURE (REFL) 2018-08-02 00:00:00 [facility] [QLH] CBC (INCLUDES DIFF/PLT) 2018-07-09 00:00:00 [facility] [QLH] LIPID PANEL 2018-07-09 00:00:00 [facility] [QL] CMP W/EGFR 2018-07-09 00:00:00 [facility] [QL] TSH, 3RD GENERATION 2018-07-09 00:00:00 [facility] [QLH] MICROALBUMIN, RANDOM URINE (W/CREATININE) 2018-07-09 00:00:00 [facility] [O] Urine Dipstick (In Office) 2018-07-09 00:00:00 [facility] [QLH] CULTURE, URINE, ROUTINE 2018-07-09 00:00:00 [facility] History of Hysterectomy [facility] of [facility] Encounters Start Date/Time End Date/Time Encounter Type Admission Type Attending Clinicians Care Facility Care Department Encounter ID Source 2019-09-26 03:37:00 Inpatient HC[facility]L LISANDRO [id number] [facility] 2018-10-09 15:30:00 2018-10-09 15:30:00 AppointVANESSA Bishop M.D. ABRAHAM, ALEYAMMA, M.D. [facility] [id number] [facility] 2018-09-21 07:54:00 2018-09-21 07:54:00 Outpatient YanaMitchell mcnally SETENT SETENT [id number] [facility] 2018-09-10 13:00:00 2018-09-10 13:00:00 Appointmen t; DAVID VALDERRAMA, DAVID RICHTER, JIE [facility] [id number] [facility] 2018-08-28 13:42:00 2018-08-28 13:42:00 Outpatient [place], Mitchell SETENT SETENT [id number] [facility] 2018-08-13 08:05:00 2018-08-13 08:05:00 Outpatient [place] SETENT SETENT [id number] [facility] 2018-08-09 15:30:00 2018-08-09 15:30:00 Appointmen t; VANESSA MC M.D. ABRAHAM, ALEYAMMA, M.D. [facility] [id number] [facility] 2018-08-07 10:30:00 2018-08-07 10:30:00 Appointmen t; VANESSA MC M.D. ABRAHAM, ALEYAMMA, M.D. [facility] [id number] [facility] 2018-07-16 16:00:00 2018-07-16 16:00:00 Appointmen t; VANESSA MC M.D. ABRAHAM, ALEYAMMA, M.D. [facility] [id number] [facility] 2018-07-16 15:00:00 2018-07-16 15:00:00 Appointmen t; VANESSA MC M.D. ABRAHAM, ALEYAMMA, M.D. [facility] [id number] [facility] 2018-07-16 08:42:00 2018-07-16 08:42:00 Outpatient Yana Mitchell SETENT SETENT [id number] [facility] 2018-07-09 13:15:00 2018-07-09 13:15:00 VANESSA Ley M.D. ABRAHAM, ALEYAMMA, M.D. [facility] [id number] [facility] Results Test Description Test Time Test Comments Results Result Co mments Source BASIC METABOLIC [id number] 07:36:00* Test Item Value Reference Range Interpretation Comme nts SODIUM (test code = NA) 141 mEq/L 134-147 N POTASSIUM (test code = K) 3.2 mEq/L 3.4-5.0 L CHLORIDE (test code = CL) 107 mEq/L 100-108 N CARBON DIOXIDE (test code = CO2) 27 mEq/L 21-33 N ANION GAP (test code = GAP) 10 0-20 N GLUCOSE (test code = GLU) 234 mg/dL 70-110 H BLOOD UREA NITROGEN (test code = BUN) 28 mg/dL 7-18 H GLOMERULAR FILTRATION RATE (test code = GFR) 18.9 70-80 L Units of measure = ml/min/1.73 m2 CREATININE (test code = CREAT) 2.5 mg/dL 0.6-1.3 H CALCIUM (test code = CA) 8.0 mg/dL 8.0-10.5 N [id number] 07:36:00* Test Item Value Reference Range Interpretation Comme nts PHOSPHOROUS (test code = PHOS) 3.1 MG/DL 2.5-4.9 N [id number] 07:36:00* Test Item Value Reference Range Interpretation Comme nts MAGNESIUM (test code = MAG) 1.60 mg/dL 1.8-2.4 L [id number] 07:32:00* Test Item Value Reference Range Interpretation Comme nts GLUBED (test code = GLUBED) 224 MG/DL 70-110 H Performed by cer tified egg breaking machine operator at [facility] CBC W/AUTO [id number] 07:06:00* Test Item Value Reference Range Interpretation Comme nts WHITE BLOOD CELL (test code = WBC) 8.34 x10 3/uL 4.5-11.0 N RED BLOOD CELL (test code = RBC) 2.54 x10 6/uL 3.54-5.02 L HEMOGLOBIN (test code = HGB) 7.6 g/dL 11.0-15.0 L HEMATOCRIT (test code = HCT) 24.1 % 33.0-45.0 L MEAN CELL VOLUME (test code = MCV) 94.9 fL 81.0-99.0 N MEAN CELL HGB (test code = MCH) 29.9 pg 27.0-33.0 N MEAN CELL HGB CONCETRATION (test code = MCHC) 31.5 g/dL 33.0-37.0 L RED CELL DISTRIBUTION WIDTH CV (test code = RDW) 15.5 % 11.5-14.5 H RED CELL DISTRIBUTION WIDTH SD (test code = RDW-SD) 51.7 fL 37.0-54.0 N PLATELET COUNT (test code = PLT) 283 x10 3/uL 150-400 N MEAN PLATELET VOLUME (test c ode = MPV) 10.8 fL 7.0-9.0 H NEUTROPHIL % (test code = NT%) 66.1 % 56.0-77.0 N IMMATURE GRANULOCYTE % (test code = IG%) 0.5 % 0.0-2.0 N LYMPHOCYTE % (test code = LY%) 22.9 % 14.0-32.0 N MONOCYTE % (test code = MO%) 8.9 % 4.8-9.0 N EOSINOPHIL % (test code = EO%) 0.8 % 0.3-3.7 N BASOPHIL % (test code = BA%) 0.8 % 0.0-2.0 N NUCLEATED RBC % (test code = NRBC%) 0.0 % 0-0 N NEUTROPHIL # (test code = NT#) 5.51 x10 3/uL 2.0-7.6 N IMMATURE GRANULOCYTE # (test code = IG#) 0.04 x10 3/uL 0.00-0.03 H LYMPHOCYTE # (test code = LY#) 1.91 x10 3/uL 1.0-3.8 N MONOCYTE # (test code = MO#) 0.74 x10 3/uL 0.1-0.8 N EOSINOPHIL # (test code = EO#) 0.07 x10 3/uL 0.0-0.2 N BASOPHIL # (test code = BA#) 0.07 x10 3/uL 0.0-0.2 N NUCLEATED RBC # (test code = NRBC#) 0.00 x10 3/uL 0.0-0.1 N MANUAL DIFF REQUIRED (test c ode = MDIFF) NO [id number] 19:44:00* Test Item Value Reference Range Interpretation Comme nts GLUBED (test code = GLUBED) 116 MG/DL 70-110 H Performed by cer tified egg breaking machine operator at [facility] [id number] 16:20:00* Test Item Value Reference Range Interpretation Comme nts GLUBED (test code = GLUBED) 132 MG/DL 70-110 H Performed by cer tified egg breaking machine operator at [facility] BASIC METABOLIC [id number] 12:23:00* Test Item Value Reference Range Interpretation Comme nts SODIUM (test code = NA) 142 mEq/L 134-147 N POTASSIUM (test code = K) 3.3 mEq/L 3.4-5.0 L CHLORIDE (test code = CL) 107 mEq/L 100-108 N CARBON DIOXIDE (test code = CO2) 29 mEq/L 21-33 N ANION GAP (test code = GAP) 9 0-20 N GLUCOSE (test code = GLU) 222 mg/dL 70-110 H BLOOD UREA NITROGEN (test code = BUN) 29 mg/dL 7-18 H GLOMERULAR FILTRATION RATE (test code = GFR) 18.1 70-80 L Units of measure = ml/min/1.73 m2 CREATININE (test code = CREAT) 2.6 mg/dL 0.6-1.3 H CALCIUM (test code = CA) 7.9 mg/dL 8.0-10.5 L [id number] 12:23:00* Test Item Value Reference Range Interpretation Comme nts MAGNESIUM (test code = MAG) 1.40 mg/dL 1.8-2.4 L CBC W/AUTO [id number] 11:44:00* Test Item Value Reference Range Interpretation Comme nts WHITE BLOOD CELL (test code = WBC) 9.83 x10 3/uL 4.5-11.0 N RED BLOOD CELL (test code = RBC) 2.63 x10 6/uL 3.54-5.02 L HEMOGLOBIN (test code = HGB) 7.9 g/dL 11.0-15.0 L HEMATOCRIT (test code = HCT) 24.6 % 33.0-45.0 L MEAN CELL VOLUME (test code = MCV) 93.5 fL 81.0-99.0 N MEAN CELL HGB (test code = MCH) 30.0 pg 27.0-33.0 N MEAN CELL HGB CONCETRATION (test code = MCHC) 32.1 g/dL 33.0-37.0 L RED CELL DISTRIBUTION WIDTH CV (test code = RDW) 15.1 % 11.5-14.5 H RED CELL DISTRIBUTION WIDTH SD (test code = RDW-SD) 49.7 fL 37.0-54.0 N PLATELET COUNT (test code = PLT) 283 x10 3/uL 150-400 N MEAN PLATELET VOLUME (test c ode = MPV) 10.3 fL 7.0-9.0 H NEUTROPHIL % (test code = NT%) 73.4 % 56.0-77.0 N IMMATURE GRANULOCYTE % (test code = IG%) 0.5 % 0.0-2.0 N LYMPHOCYTE % (test code = LY%) 17.1 % 14.0-32.0 N MONOCYTE % (test code = MO%) 7.4 % 4.8-9.0 N EOSINOPHIL % (test code = EO%) 0.9 % 0.3-3.7 N BASOPHIL % (test code = BA%) 0.7 % 0.0-2.0 N NUCLEATED RBC % (test code = NRBC%) 0.0 % 0-0 N NEUTROPHIL # (test code = NT#) 7.21 x10 3/uL 2.0-7.6 N IMMATURE GRANULOCYTE # (test code = IG#) 0.05 x10 3/uL 0.00-0.03 H LYMPHOCYTE # (test code = LY#) 1.68 x10 3/uL 1.0-3.8 N MONOCYTE # (test code = MO#) 0.73 x10 3/uL 0.1-0.8 N EOSINOPHIL # (test code = EO#) 0.09 x10 3/uL 0.0-0.2 N BASOPHIL # (test code = BA#) 0.07 x10 3/uL 0.0-0.2 N NUCLEATED RBC # (test code = NRBC#) 0.00 x10 3/uL 0.0-0.1 N MANUAL DIFF REQUIRED (test c ode = MDIFF) NO [id number] 10:37:00* Test Item Value Reference Range Interpretation Comme nts GLUBED (test code = GLUBED) 233 MG/DL 70-110 H Performed by cer tified egg breaking machine operator at [facility] [id number] 07:27:00* Test Item Value Reference Range Interpretation Comme nts GLUBED (test code = GLUBED) 130 MG/DL 70-110 H Performed by cer tified egg breaking machine operator at [facility] [id number] 20:11:00* Test Item Value Reference Range Interpretation Comme nts GLUBED (test code = GLUBED) 177 MG/DL 70-110 H Performed by cer tified egg breaking machine operator at [facility] [id number] 17:39:00* Test Item Value Reference Range Interpretation Comme nts GLUBED (test code = GLUBED) 175 MG/DL 70-110 H Performed by cer tified egg breaking machine operator at [facility] [id number] 11:52:00* Test Item Value Reference Range Interpretation Comme nts GLUBED (test code = GLUBED) 136 MG/DL 70-110 H Performed by cer tified egg breaking machine operator at [facility] CBC W/AUTO [id number] 08:16:00* Test Item Value Reference Range Interpretation Comme nts WHITE BLOOD CELL (test code = WBC) 10.88 x10 3/uL 4.5-11.0 N RED BLOOD CELL (test code = RBC) 2.86 x10 6/uL 3.54-5.02 L HEMOGLOBIN (test code = HGB) 8.5 g/dL 11.0-15.0 L HEMATOCRIT (test code = HCT) 26.4 % 33.0-45.0 L MEAN CELL VOLUME (test code = MCV) 92.3 fL 81.0-99.0 MEAN CELL HGB (test code = MCH) 29.7 pg 27.0-33.0 N MEAN CELL HGB CONCETRATION (test code = MCHC) 32.2 g/dL 33.0-37.0 L RED CELL DISTRIBUTION WIDTH CV (test code = RDW) 14.9 % 11.5-14.5 H RED CELL DISTRIBUTION WIDTH SD (test code = RDW-SD) 48.2 fL 37.0-54.0 N PLATELET COUNT (test code = PLT) 311 x10 3/uL 150-400 MEAN PLATELET VOLUME (test code = MPV) 10.7 fL 7.0-9.0 H NEUTROPHIL % (test code = NT%) 70.7 % 56.0-77.0 N IMMATURE GRANULOCYTE % (test code = IG%) 0.6 % 0.0-2.0 N LYMPHOCYTE % (test code = LY%) 20.6 % 14.0-32.0 N MONOCYTE % (test code = MO%) 6.5 % 4.8-9.0 N EOSINOPHIL % (test code = EO%) 1.0 % 0.3-3.7 N BASOPHIL % (test code = BA%) 0.6 % 0.0-2.0 N NUCLEATED RBC % (test code = NRBC%) 0.0 % 0-0 N NEUTROPHIL # (test code = NT#) 7.69 x10 3/uL 2.0-7.6 H IMMATURE GRANULOCYTE # (test code = IG#) 0.07 x10 3/uL 0.00-0.03 H LYMPHOCYTE # (test code = LY#) 2.24 x10 3/uL 1.0-3.8 N MONOCYTE # (test code = MO#) 0.71 x10 3/uL 0.1-0.8 N EOSINOPHIL # (test code = EO#) 0.11 x10 3/uL 0.0-0.2 N BASOPHIL # (test code = BA#) 0.06 x10 3/uL 0.0-0.2 N NUCLEATED RBC # (test code = NRBC#) 0.00 x10 3/uL 0.0-0.1 N MANUAL DIFF REQUIRED (test code = MDIFF) NO [id number] 08:11:00* Test Item Value Reference Range Interpretation Comme nts GLUBED (test code = GLUBED) 119 MG/DL 70-110 H Performed by cer gianniied egg breaking machine operator at [facility] BASIC METABOLIC [id number] 07:49:00* Test Item Value Reference Range Interpretation Comme nts SODIUM (test code = NA) 143 mEq/L 134-147 N POTASSIUM (test code = K) 2.8 mEq/L 3.4-5.0 LL CHLORIDE (test code = CL) 106 mEq/L 100-108 N CARBON DIOXIDE (test code = CO2) 30 mEq/L 21-33 ANION GAP (test code = GAP) 10 0-20 N GLUCOSE (test code = GLU) 123 mg/dL 70-110 H BLOOD UREA NITROGEN (test code = BUN) 27 mg/dL 7-18 H GLOMERULAR FILTRATION RATE (test code = GFR) 19.8 70-80 L Units of measure = ml/min/1.73 m2 CREATININE (test code = CREAT) 2.4 mg/dL 0.6-1.3 H CALCIUM (test code = CA) 8.0 mg/dL 8.0-10.5 N [id number] 07:49:00* Test Item Value Reference Range Interpretation Comme nts PHOSPHOROUS (test code = PHOS) 3.5 MG/DL 2.5-4.9 N [id number] 07:49:00* Test Item Value Reference Range Interpretation Comme nts MAGNESIUM (test code = MAG) 1.30 mg/dL 1.8-2.4 L [id number] 21:10:00* Test Item Value Reference Range Interpretation Comme nts GLUBED (test code = GLUBED) 234 MG/DL 70-110 H Performed by cer tified egg breaking machine operator at [facility] [id number] 17:21:00* Test Item Value Reference Range Interpretation Comme nts GLUBED (test code = GLUBED) 127 MG/DL 70-110 H Performed by cer tified egg breaking machine operator at [facility] [id number] 13:26:00* Test Item Value Reference Range Interpretation Comme nts GLUBED (test code = GLUBED) 144 MG/DL 70-110 H Performed by cer tified egg breaking machine operator at [facility] TOTAL IRON BINDING [id number] 12:02:00* Test Item Value Reference Range Interpretation Comme nts SERUM IRON (test code = IRON) 56 mcg/dL 35-150 N TOTAL IRON BINDING CAPACITY (test code = TIBC) 163 mcg/dL 260-445 L UIBC (test code = UIBC) 107 mcg/dL IRON SATURATION (test code = FESAT) 34.4 % 14-34 H [id number] 12:02:00* Test Item Value Reference Range Interpretation Comme nts FERRITIN (test code = VIKY) 182.0 ng/mL 11.0-306.8 N [id number] 08:40:00* Test Item Value Reference Range Interpretation Comme nts GLUBED (test code = GLUBED) 136 MG/DL 70-110 H Performed by cer tified egg breaking machine operator at [facility] BASIC METABOLIC [id number] 08:20:00* Test Item Value Reference Range Interpretation Comme nts SODIUM (test code = NA) 141 mEq/L 134-147 N POTASSIUM (test code = K) 3.3 mEq/L 3.4-5.0 L CHLORIDE (test code = CL) 108 mEq/L 100-108 N CARBON DIOXIDE (test code = CO2) 23 mEq/L 21-33 N ANION GAP (test code = GAP) 13 0-20 N GLUCOSE (test code = GLU) 142 mg/dL 70-110 H BLOOD UREA NITROGEN (test code = BUN) 28 mg/dL 7-18 H GLOMERULAR FILTRATION RATE (test code = GFR) 18.9 70-80 L Units of measure = ml/min/1.73 m2 CREATININE (test code = CREAT) 2.5 mg/dL 0.6-1.3 H CALCIUM (test code = CA) 7.8 mg/dL 8.0-10.5 L [id number] 08:20:00* Test Item Value Reference Range Interpretation Comme nts PHOSPHOROUS (test code = PHOS) 3.1 MG/DL 2.5-4.9 N [id number] 08:20:00* Test Item Value Reference Range Interpretation Comme nts MAGNESIUM (test code = MAG) 1.60 mg/dL 1.8-2.4 L CBC W/AUTO [id number] 07:52:00* Test Item Value Reference Range Interpretation Comme nts WHITE BLOOD CELL (test code = WBC) 10.44 x10 3/uL 4.5-11.0 N RED BLOOD CELL (test code = RBC) 2.52 x10 6/uL 3.54-5.02 L HEMOGLOBIN (test code = HGB) 7.6 g/dL 11.0-15.0 L HEMATOCRIT (test code = HCT) 24.3 % 33.0-45.0 L MEAN CELL VOLUME (test code = MCV) 96.4 fL 81.0-99.0 N MEAN CELL HGB (test code = MCH) 30.2 pg 27.0-33.0 N MEAN CELL HGB CONCETRATION (test code = MCHC) 31.3 g/dL 33.0-37.0 L RED CELL DISTRIBUTION WIDTH CV (test code = RDW) 15.0 % 11.5-14.5 H RED CELL DISTRIBUTION WIDTH SD (test code = RDW-SD) 49.9 fL 37.0-54.0 N PLATELET COUNT (test code = PLT) 193 x10 3/uL 150-400 N MEAN PLATELET VOLUME (test code = MPV) 11.6 fL 7.0-9.0 H NEUTROPHIL % (test code = NT%) 70.1 % 56.0-77.0 N IMMATURE GRANULOCYTE % (test code = IG%) 0.5 % 0.0-2.0 N LYMPHOCYTE % (test code = LY%) 21.1 % 14.0-32.0 N MONOCYTE % (test code = MO%) 7.0 % 4.8-9.0 N EOSINOPHIL % (test code = EO%) 1.0 % 0.3-3.7 N BASOPHIL % (test code = BA%) 0.3 % 0.0-2.0 N NUCLEATED RBC % (test code = NRBC%) 0.2 % 0-0 H NEUTROPHIL # (test code = NT#) 7.33 x10 3/uL 2.0-7.6 N IMMATURE GRANULOCYTE # (test code = IG#) 0.05 x10 3/uL 0.00-0.03 H LYMPHOCYTE # (test code = LY#) 2.20 x10 3/uL 1.0-3.8 N MONOCYTE # (test code = MO#) 0.73 x10 3/uL 0.1-0.8 N EOSINOPHIL # (test code = EO#) 0.10 x10 3/uL 0.0-0.2 N BASOPHIL # (test code = BA#) 0.03 x10 3/uL 0.0-0.2 N NUCLEATED RBC # (test code = NRBC#) 0.02 x10 3/uL 0.0-0.1 N MANUAL DIFF REQUIRED (test code = MDIFF) NO [id number] 07:16:00* Test Item Value Reference Range Interpretation Comme nts GLUBED (test code = GLUBED) 279 MG/DL 70-110 H Performed by cer tified egg breaking machine operator at [facility] [id number] 21:40:00* Test Item Value Reference Range Interpretation Comme nts GLUBED (test code = GLUBED) 282 MG/DL 70-110 H Performed by cer tified egg breaking machine operator at [facility] [id number] 11:28:00* Test Item Value Reference Range Interpretation Comme nts GLUBED (test code = GLUBED) 115 MG/DL 70-110 H Performed by cer tified egg breaking machine operator at [facility] [id number] 08:26:00* Test Item Value Reference Range Interpretation Comme nts GLUBED (test code = GLUBED) 117 MG/DL 70-110 H Performed by cer tified egg breaking machine operator at [facility] [id number] 20:40:00* Test Item Value Reference Range Interpretation Comme nts GLUBED (test code = GLUBED) 152 MG/DL 70-110 H Performed by cer tified egg breaking machine operator at [facility] [id number] 17:27:00* Test Item Value Reference Range Interpretation Comme nts GLUBED (test code = GLUBED) 155 MG/DL 70-110 H Performed by cer tified egg breaking machine operator at [facility] [id number] 11:29:00* Test Item Value Reference Range Interpretation Comme nts GLUBED (test code = GLUBED) 130 MG/DL 70-110 H Performed by cer tified egg breaking machine operator at [facility] Novel Coronavirus 08:16:00* Test Item Value Reference Range Interpretation Comme nts Novel Coronavirus 2019 Inhouse (test code = [id number]) Negative Negative Positive resul ts are indicative of the presence vtQHMT-MjB-0 RNA, clinical correlation with patient historyand other diagnostic information is necessary to determinepatient infection status. Positive results do not rule outbacterial infection or co-infection with other viruses. Negative results do not preclude SARS-CoV-2 infection andshould not be used as the sole basis for patient managementdecisions. Negative results must be combined with otherclinical observations, patient history, and epidemiologicalinformation . Detection of SARS-CoV-2 RNA may be affected bysample collection methods, storage conditions, and/or stageof infection. Viral RNA mutations, vaccinations, antiviraltherapeutics, antibiotics, chemotherapeutic orimmunosuppressant drugs have not been evaluated for effectson detection. Results are for the identification of SARS-CoV-2 RNA usingthe [employer] M2000 System under the FDA Emergency UseAuthorization. The testing is performed by personneltrained in the procedures for the Kenny M2000 moleculardiagnostic SARS-CoV-2 assay in vitro. Testing Criteria: Shortness of [id number] 08:07:00* Test Item Value Reference Range Interpretation Comme nts GLUBED (test code = GLUBED) 112 MG/DL 70-110 H Performed by cer tified egg breaking machine operator at [facility] [id number] 08:07:00* Test Item Value Reference Range Interpretation Comme nts GLUBED (test code = GLUBED) 112 MG/DL 70-110 H Performed by [facility] tified egg breaking machine operator at [facility] BASIC METABOLIC [id number] 03:35:00* Test Item Value Reference Range Interpretation Comme nts SODIUM (test code = NA) 139 mEq/L 134-147 N POTASSIUM (test code = K) 3.1 mEq/L 3.4-5.0 L CHLORIDE (test code = CL) 106 mEq/L 100-108 N CARBON DIOXIDE (test code = CO2) 24 mEq/L 21-33 N ANION GAP (test code = GAP) 12 0-20 N GLUCOSE (test code = GLU) 115 mg/dL 70-110 H BLOOD UREA NITROGEN (test code = BUN) 27 mg/dL 7-18 H GLOMERULAR FILTRATION RATE (test code = GFR) 19.8 70-80 L Units of measure = ml/min/1.73 m2 CREATININE (test code = CREAT) 2.4 mg/dL 0.6-1.3 H CALCIUM (test code = CA) 8.1 mg/dL 8.0-10.5 N [id number] 03:35:00* Test Item Value Reference Range Interpretation Comme nts PHOSPHOROUS (test code = PHOS) 3.4 MG/DL 2.5-4.9 [id number] 03:35:00* Test Item Value Reference Range Interpretation Comme nts MAGNESIUM (test code = MAG) 1.50 mg/dL 1.8-2.4 L CBC W/AUTO [id number] 03:22:00* Test Item Value Reference Range Interpretation Comme nts WHITE BLOOD CELL (test code = WBC) 9.48 x10 3/uL 4.5-11.0 N RED BLOOD CELL (test code = RBC) 2.72 x10 6/uL 3.54-5.02 L HEMOGLOBIN (test code = HGB) 8.0 g/dL 11.0-15.0 L HEMATOCRIT (test code = HCT) 26.2 % 33.0-45.0 L MEAN CELL VOLUME (test code = MCV) 96.3 fL 81.0-99.0 MEAN CELL HGB (test code = MCH) 29.4 pg 27.0-33.0 N MEAN CELL HGB CONCETRATION (test code = MCHC) 30.5 g/dL 33.0-37.0 L RED CELL DISTRIBUTION WIDTH CV (test code = RDW) 14.1 % 11.5-14.5 N RED CELL DISTRIBUTION WIDTH SD (test code = RDW-SD) 48.2 fL 37.0-54.0 N PLATELET COUNT (test code = PLT) 216 x10 3/uL 150-400 N MEAN PLATELET VOLUME (test c ode = MPV) 10.0 fL 7.0-9.0 H NEUTROPHIL % (test code = NT%) 57.0 % 56.0-77.0 N IMMATURE GRANULOCYTE % (test code = IG%) 1.2 % 0.0-2.0 N LYMPHOCYTE % (test code = LY%) 25.3 % 14.0-32.0 N MONOCYTE % (test code = MO%) 14.7 % 4.8-9.0 H EOSINOPHIL % (test code = EO%) 1.4 % 0.3-3.7 N BASOPHIL % (test code = BA%) 0.4 % 0.0-2.0 N NUCLEATED RBC % (test code = NRBC%) 0.2 % 0-0 H NEUTROPHIL # (test code = NT#) 5.41 x10 3/uL 2.0-7.6 N IMMATURE GRANULOCYTE # (test code = IG#) 0.11 x10 3/uL 0.00-0.03 H LYMPHOCYTE # (test code = LY#) 2.40 x10 3/uL 1.0-3.8 N MONOCYTE # (test code = MO#) 1.39 x10 3/uL 0.1-0.8 H EOSINOPHIL # (test code = EO#) 0.13 x10 3/uL 0.0-0.2 N BASOPHIL # (test code = BA#) 0.04 x10 3/uL 0.0-0.2 N NUCLEATED RBC # (test code = NRBC#) 0.02 x10 3/uL 0.0-0.1 N MANUAL DIFF REQUIRED (test c ode = MDIFF) NO [id number] 23:52:00* Test Item Value Reference Range Interpretation Comme nts GLUBED (test code = GLUBED) 139 MG/DL 70-110 H Performed by cer tified egg breaking machine operator at [facility] [id number] 18:09:00* Test Item Value Reference Range Interpretation Comme nts GLUBED (test code = GLUBED) 174 MG/DL 70-110 H Performed by cer tified egg breaking machine operator at [facility] Coronavirus 2019 nCoV [id number] 14:38:00* Test Item Value Reference Range Interpretation Comme nts Coronavirus 2019 nCoV Bedsid e (test code = [id number]) Negative Negative Emergent procedure? YESCOMMENTS: R/O PATIENT IN CONTACT WITH POSITIVE COVID 19 THROUGH [facility]/Comment: PATIENT WITH COUGH AND [id number] 13:06:00* Test Item Value Reference Range Interpretation Comme nts GLUBED (test code = GLUBED) 204 MG/DL 70-110 H Performed by cer [employer] egg breaking machine operator at [facility] B-TYPE NATRIURETIC [id number] 11:28:00* Test Item Value Reference Range Interpretation Comme nts B-TYPE NATRIURETIC PEPTIDE ( test code = BNP) 301.5 PG/ML 0-100 H CBC W/AUTO [id number] 11:25:00* Test Item Value Reference Range Interpretation Comme nts WHITE BLOOD CELL (test code = WBC) 7.11 x10 3/uL 4.5-11.0 N RED BLOOD CELL (test code = RBC) 2.56 x10 6/uL 3.54-5.02 L HEMOGLOBIN (test code = HGB) 7.6 g/dL 11.0-15.0 L HEMATOCRIT (test code = HCT) 23.5 % 33.0-45.0 L MEAN CELL VOLUME (test code = MCV) 91.8 fL 81.0-99.0 N MEAN CELL HGB (test code = MCH) 29.7 pg 27.0-33.0 N MEAN CELL HGB CONCETRATION (test code = MCHC) 32.3 g/dL 33.0-37.0 L RED CELL DISTRIBUTION WIDTH CV (test code = RDW) 13.6 % 11.5-14.5 N RED CELL DISTRIBUTION WIDTH SD (test code = RDW-SD) 45.9 fL 37.0-54.0 N PLATELET COUNT (test code = PLT) 212 x10 3/uL 150-400 N MEAN PLATELET VOLUME (test c ode = MPV) 10.7 fL 7.0-9.0 H MANUAL DIFF REQUIRED (test c ode = MDIFF) YES WBC [id number] 11:25:00* Test Item Value Reference Range Interpretation Comme nts SEGMENTED NEUTROPHILS (test code = SEG) 52.3 % 37-69 N BAND NEUTROPHIL (test code = BAND) 4.6 % 0.0-10.0 N LYMPHOCYTE (test code = LYMPH) 26.6 % 23-55 N MONOCYTE (test code = MON) 14.7 % 0-10 H EOSINOPHIL (test code = EOS) 0.9 % 0.0-4.0 N METAMYELOCYTE (test code = META) 0.9 % 0.0-0.0 H NUCLEATED RED BLOOD CELL (test code = NRBC) 0.9 % POLYCHROMASIA (test code = POLC) 2+ HYPOCHROMIA (test code = HYPO) 1+ POIKILOCYTOSIS (test code = POIK) 1+ ANISOCYTOSIS (test code = ANISO) 1+ PLATELET ESTIMATE (test code = PLTEST) Adequate THOUSAND ADEQUATE CBC W/AUTO [id number] 11:20:00* Test Item Value Reference Range Interpretation Comme nts WHITE BLOOD CELL (test code = WBC) 7.11 x10 3/uL 4.5-11.0 N RED BLOOD CELL (test code = RBC) 2.56 x10 6/uL 3.54-5.02 L HEMOGLOBIN (test code = HGB) 7.6 g/dL 11.0-15.0 L HEMATOCRIT (test code = HCT) 23.5 % 33.0-45.0 L MEAN CELL VOLUME (test code = MCV) 91.8 fL 81.0-99.0 N MEAN CELL HGB (test code = MCH) 29.7 pg 27.0-33.0 N MEAN CELL HGB CONCETRATION (test code = MCHC) 32.3 g/dL 33.0-37.0 L RED CELL DISTRIBUTION WIDTH CV (test code = RDW) 13.6 % 11.5-14.5 N RED CELL DISTRIBUTION WIDTH SD (test code = RDW-SD) 45.9 fL 37.0-54.0 N PLATELET COUNT (test code = PLT) 212 x10 3/uL 150-400 N MEAN PLATELET VOLUME (test c ode = MPV) 10.7 fL 7.0-9.0 H MANUAL DIFF REQUIRED (test c ode = MDIFF) YES WBC [id number] 11:20:00* Test Item Value Reference Range Interpretation Comme nts ANISOCYTOSIS (test code = ANISO) PLATELET ESTIMATE (test code = PLTEST) THOUSAND ADEQUATE CBC W/AUTO [id number] 11:20:00* Test Item Value Reference Range Interpretation Comme nts WHITE BLOOD CELL (test code = WBC) 7.11 x10 3/uL 4.5-11.0 N RED BLOOD CELL (test code = RBC) 2.56 x10 6/uL 3.54-5.02 L HEMOGLOBIN (test code = HGB) 7.6 g/dL 11.0-15.0 L HEMATOCRIT (test code = HCT) 23.5 % 33.0-45.0 L MEAN CELL VOLUME (test code = MCV) 91.8 fL 81.0-99.0 N MEAN CELL HGB (test code = MCH) 29.7 pg 27.0-33.0 N MEAN CELL HGB CONCETRATION (test code = MCHC) 32.3 g/dL 33.0-37.0 L RED CELL DISTRIBUTION WIDTH CV (test code = RDW) 13.6 % 11.5-14.5 N RED CELL DISTRIBUTION WIDTH SD (test code = RDW-SD) 45.9 fL 37.0-54.0 N PLATELET COUNT (test code = PLT) 212 x10 3/uL 150-400 N MEAN PLATELET VOLUME (test c ode = MPV) 10.7 fL 7.0-9.0 H MANUAL DIFF REQUIRED (test c ode = MDIFF) YES WBC [id number] 11:20:00* Test Item Value Reference Range Interpretation Comme nts ANISOCYTOSIS (test code = ANISO) PLATELET ESTIMATE (test code = PLTEST) THOUSAND ADEQUATE [id number] 11:12:00* Test Item Value Reference Range Interpretation Comme nts GLUBED (test code = GLUBED) 108 MG/DL 70-110 N Performed by cer moe egg breaking machine operator at [facility] - XR CHEST 1 [id number] 09:40:00FAX: Joel Falk [phone] [place]: St: ADM Name: MAC AGUSTIN [facility] : 1945 Age/S:74/F [address] [place] [address] Blvd Unit #: [id number] Loc: G.4431 [place] [address] Phys: Joel Myers MD Acct: [id number] Dis Date: Status: ADM IN PHONE #: [phone] Exam Date: FAX #: [phone] Reason: SOB,cough EXAMS: CPT CODE: [id number] XR CHEST 1 V 46870 EXAM: Single view AP chest. EXAM DATE: 10/06/2019 at 0910 hours CLINICAL HISTORY: SOB,cough COMPARISON: September 30, 2019 at 0457 hours Heart size is within normal limits. Atherosclerotic calcifications and tortuosity of the intrathoracic aorta is identified.. There has been a decrease in the previously described bilateral pleural effusions and bilateral basilar atelectasis. Mild vascular congestion is again identified. Surgical clips are noted in the right upper quadrant. Imaged osseous structures demonstrate no acute findings. IMPRESSION: 1. Decreasing bilateral pleural effusions and bibasilar atelectasis. 2. Stable pulmonary vascular congestion Electronically Signed by Blanche Johnson on 10/06/2019 at 0940 Reported and signed by: Tracy Johnson M.D. CC: Joel Boateng Technologist: SHAE Roberts) Trnscrd Date/Time/By: 10/06/2019 (09) : By: GaryCER Orig Print D/T: S: 10/06/2019 (5215) PAGE 1 Signed ReportBASIC METABOLIC [id number] 08:27:00* Test Item Value Reference Range Interpretation Comme nts SODIUM (test code = NA) 139 mEq/L 134-147 N POTASSIUM (test code = K) 3.6 mEq/L 3.4-5.0 N CHLORIDE (test code = CL) 105 mEq/L 100-108 N CARBON DIOXIDE (test code = CO2) 23 mEq/L 21-33 N ANION GAP (test code = GAP) 15 0-20 N GLUCOSE (test code = GLU) 94 mg/dL 70-110 N BLOOD UREA NITROGEN (test code = BUN) 26 mg/dL 7-18 H GLOMERULAR FILTRATION RATE (test code = GFR) 18.1 70-80 L Units of measure = ml/min/1.73 m2 CREATININE (test code = CREAT) 2.6 mg/dL 0.6-1.3 H CALCIUM (test code = CA) 8.1 mg/dL 8.0-10.5 N [id number] 08:27:00* Test Item Value Reference Range Interpretation Comme nts PHOSPHOROUS (test code = PHOS) 2.5 MG/DL 2.5-4.9 N [id number] 08:27:00* Test Item Value Reference Range Interpretation Comme nts MAGNESIUM (test code = MAG) 1.80 mg/dL 1.8-2.4 N CBC W/AUTO [id number] 07:44:00* Test Item Value Reference Range Interpretation Comme nts WHITE BLOOD CELL (test code = WBC) 7.11 x10 3/uL 4.5-11.0 N RED BLOOD CELL (test code = RBC) 2.56 x10 6/uL 3.54-5.02 L HEMOGLOBIN (test code = HGB) 7.6 g/dL 11.0-15.0 L HEMATOCRIT (test code = HCT) 23.5 % 33.0-45.0 L MEAN CELL VOLUME (test code = MCV) 91.8 fL 81.0-99.0 N MEAN CELL HGB (test code = MCH) 29.7 pg 27.0-33.0 N MEAN CELL HGB CONCETRATION (test code = MCHC) 32.3 g/dL 33.0-37.0 L RED CELL DISTRIBUTION WIDTH CV (test code = RDW) 13.6 % 11.5-14.5 N RED CELL DISTRIBUTION WIDTH SD (test code = RDW-SD) 45.9 fL 37.0-54.0 N PLATELET COUNT (test code = PLT) 212 x10 3/uL 150-400 N MEAN PLATELET VOLUME (test c ode = MPV) 10.7 fL 7.0-9.0 H NEUTROPHIL % (test code = NT%) % 56.0-77.0 LYMPHOCYTE % (test code = LY%) % 14.0-32.0 NEUTROPHIL # (test code = NT#) x10 3/uL 2.0-7.6 LYMPHOCYTE # (test code = LY#) x10 3/uL 1.0-3.8 MANUAL DIFF REQUIRED (test c ode = MDIFF) [id number] 20:34:00* Test Item Value Reference Range Interpretation Comme nts GLUBED (test code = GLUBED) 143 MG/DL 70-110 H Performed by cer tified egg breaking machine operator at [facility] [id number] 18:17:00* Test Item Value Reference Range Interpretation Comme nts GLUBED (test code = GLUBED) 112 MG/DL 70-110 H Performed by cer tified egg breaking machine operator at [facility] [id number] 12:26:00* Test Item Value Reference Range Interpretation Comme nts GLUBED (test code = GLUBED) 168 MG/DL 70-110 H Performed by cer [employer] egg breaking machine operator at [facility] [id number] 09:28:00* Test Item Value Reference Range Interpretation Comme nts GLUBED (test code = GLUBED) 118 MG/DL 70-110 H Performed by cer [employer] egg breaking machine operator at [facility] CBC W/AUTO [id number] 09:00:00* Test Item Value Reference Range Interpretation Comme nts WHITE BLOOD CELL (test code = WBC) 7.15 x10 3/uL 4.5-11.0 N RED BLOOD CELL (test code = RBC) 2.71 x10 6/uL 3.54-5.02 L HEMOGLOBIN (test code = HGB) 8.0 g/dL 11.0-15.0 L HEMATOCRIT (test code = HCT) 24.7 % 33.0-45.0 L MEAN CELL VOLUME (test code = MCV) 91.1 fL 81.0-99.0 MEAN CELL HGB (test code = MCH) 29.5 pg 27.0-33.0 N MEAN CELL HGB CONCETRATION (test code = MCHC) 32.4 g/dL 33.0-37.0 L RED CELL DISTRIBUTION WIDTH CV (test code = RDW) 13.3 % 11.5-14.5 N RED CELL DISTRIBUTION WIDTH SD (test code = RDW-SD) 44.4 fL 37.0-54.0 N PLATELET COUNT (test code = PLT) 192 x10 3/uL 150-400 MEAN PLATELET VOLUME (test c ode = MPV) 10.3 fL 7.0-9.0 H MANUAL DIFF REQUIRED (test c ode = MDIFF) YES WBC [id number] 09:00:00* Test Item Value Reference Range Interpretation Comme nts SEGMENTED NEUTROPHILS (test code = SEG) 57 % 37-69 N BAND NEUTROPHIL (test code = BAND) 2.0 % 0.0-10.0 N LYMPHOCYTE (test code = LYMPH) 25 % 23-55 N REACTIVE LYMPH (test code = RELYMPH) MODERATE % MONOCYTE (test code = MON) 13 % 0-10 H EOSINOPHIL (test code = EOS) 2 % 0.0-4.0 N BASOPHIL (test code = BASO) 1 % 0.0-2.0 N NUCLEATED RED BLOOD CELL (test code = NRBC) 1 % HYPOCHROMIA (test code = HYPO) 1+ POIKILOCYTOSIS (test code = POIK) SLIGHT ANISOCYTOSIS (test code = ANISO) SLIGHT TOXIC GRANULATION (test code = TOX) 1+ PLATELET ESTIMATE (test code = PLTEST) Adequate THOUSAND ADEQUATE PLATELET MORPHOLOGY (test code = PLTMORPH) LARGE PLATELETS CBC W/AUTO [id number] 08:55:00* Test Item Value Reference Range Interpretation Comme nts WHITE BLOOD CELL (test code = WBC) 7.15 x10 3/uL 4.5-11.0 N RED BLOOD CELL (test code = RBC) 2.71 x10 6/uL 3.54-5.02 L HEMOGLOBIN (test code = HGB) 8.0 g/dL 11.0-15.0 L HEMATOCRIT (test code = HCT) 24.7 % 33.0-45.0 L MEAN CELL VOLUME (test code = MCV) 91.1 fL 81.0-99.0 MEAN CELL HGB (test code = MCH) 29.5 pg 27.0-33.0 N MEAN CELL HGB CONCETRATION (test code = MCHC) 32.4 g/dL 33.0-37.0 L RED CELL DISTRIBUTION WIDTH CV (test code = RDW) 13.3 % 11.5-14.5 N RED CELL DISTRIBUTION WIDTH SD (test code = RDW-SD) 44.4 fL 37.0-54.0 N PLATELET COUNT (test code = PLT) 192 x10 3/uL 150-400 MEAN PLATELET VOLUME (test c ode = MPV) 10.3 fL 7.0-9.0 H MANUAL DIFF REQUIRED (test c ode = MDIFF) YES WBC [id number] 08:55:00* Test Item Value Reference Range Interpretation Comme nts ANISOCYTOSIS (test code = ANISO) PLATELET ESTIMATE (test code = PLTEST) THOUSAND ADEQUATE CBC W/AUTO [id number] 08:55:00* Test Item Value Reference Range Interpretation Comme nts WHITE BLOOD CELL (test code = WBC) 7.15 x10 3/uL 4.5-11.0 N RED BLOOD CELL (test code = RBC) 2.71 x10 6/uL 3.54-5.02 L HEMOGLOBIN (test code = HGB) 8.0 g/dL 11.0-15.0 L HEMATOCRIT (test code = HCT) 24.7 % 33.0-45.0 L MEAN CELL VOLUME (test code = MCV) 91.1 fL 81.0-99.0 MEAN CELL HGB (test code = MCH) 29.5 pg 27.0-33.0 N MEAN CELL HGB CONCETRATION (test code = MCHC) 32.4 g/dL 33.0-37.0 L RED CELL DISTRIBUTION WIDTH CV (test code = RDW) 13.3 % 11.5-14.5 N RED CELL DISTRIBUTION WIDTH SD (test code = RDW-SD) 44.4 fL 37.0-54.0 N PLATELET COUNT (test code = PLT) 192 x10 3/uL 150-400 MEAN PLATELET VOLUME (test c ode = MPV) 10.3 fL 7.0-9.0 H MANUAL DIFF REQUIRED (test c ode = MDIFF) YES WBC [id number] 08:55:00* Test Item Value Reference Range Interpretation Comme nts ANISOCYTOSIS (test code = ANISO) PLATELET ESTIMATE (test code = PLTEST) THOUSAND ADEQUATE BASIC METABOLIC [id number] 08:41:00* Test Item Value Reference Range Interpretation Comme nts SODIUM (test code = NA) 138 mEq/L 134-147 N POTASSIUM (test code = K) 3.3 mEq/L 3.4-5.0 L CHLORIDE (test code = CL) 102 mEq/L 100-108 N CARBON DIOXIDE (test code = CO2) 28 mEq/L 21-33 N ANION GAP (test code = GAP) 11 0-20 N GLUCOSE (test code = GLU) 107 mg/dL 70-110 N BLOOD UREA NITROGEN (test code = BUN) 27 mg/dL 7-18 H GLOMERULAR FILTRATION RATE (test code = GFR) 17.3 70-80 L Units of measure = ml/min/1.73 m2 CREATININE (test code = CREAT) 2.7 mg/dL 0.6-1.3 H CALCIUM (test code = CA) 8.2 mg/dL 8.0-10.5 N [id number] 08:41:00* Test Item Value Reference Range Interpretation Comme nts PHOSPHOROUS (test code = PHOS) 2.8 MG/DL 2.5-4.9 N [id number] 08:41:00* Test Item Value Reference Range Interpretation Comme nts MAGNESIUM (test code = MAG) 1.90 mg/dL 1.8-2.4 N CBC W/AUTO [id number] 07:55:00* Test Item Value Reference Range Interpretation Comme nts WHITE BLOOD CELL (test code = WBC) 7.15 x10 3/uL 4.5-11.0 N RED BLOOD CELL (test code = RBC) 2.71 x10 6/uL 3.54-5.02 L HEMOGLOBIN (test code = HGB) 8.0 g/dL 11.0-15.0 L HEMATOCRIT (test code = HCT) 24.7 % 33.0-45.0 L MEAN CELL VOLUME (test code = MCV) 91.1 fL 81.0-99.0 MEAN CELL HGB (test code = MCH) 29.5 pg 27.0-33.0 N MEAN CELL HGB CONCETRATION (test code = MCHC) 32.4 g/dL 33.0-37.0 L RED CELL DISTRIBUTION WIDTH CV (test code = RDW) 13.3 % 11.5-14.5 N RED CELL DISTRIBUTION WIDTH SD (test code = RDW-SD) 44.4 fL 37.0-54.0 N PLATELET COUNT (test code = PLT) 192 x10 3/uL 150-400 MEAN PLATELET VOLUME (test c ode = MPV) 10.3 fL 7.0-9.0 H NEUTROPHIL % (test code = NT%) % 56.0-77.0 LYMPHOCYTE % (test code = LY%) % 14.0-32.0 NEUTROPHIL # (test code = NT#) x10 3/uL 2.0-7.6 LYMPHOCYTE # (test code = LY#) x10 3/uL 1.0-3.8 MANUAL DIFF REQUIRED (test c ode = MDIFF) [id number] 21:52:00* Test Item Value Reference Range Interpretation Comme nts GLUBED (test code = GLUBED) 145 MG/DL 70-110 H Performed by cer tified egg breaking machine operator at [facility] [id number] 17:18:00* Test Item Value Reference Range Interpretation Comme nts GLUBED (test code = GLUBED) 120 MG/DL 70-110 H Performed by cer tified egg breaking machine operator at [facility] CBC W/AUTO [id number] 12:24:00* Test Item Value Reference Range Interpretation Comme nts WHITE BLOOD CELL (test code = WBC) 5.64 x10 3/uL 4.5-11.0 N RED BLOOD CELL (test code = RBC) 2.78 x10 6/uL 3.54-5.02 L HEMOGLOBIN (test code = HGB) 8.4 g/dL 11.0-15.0 L HEMATOCRIT (test code = HCT) 26.3 % 33.0-45.0 L MEAN CELL VOLUME (test code = MCV) 94.6 fL 81.0-99.0 N MEAN CELL HGB (test code = MCH) 30.2 pg 27.0-33.0 N MEAN CELL HGB CONCETRATION (test code = MCHC) 31.9 g/dL 33.0-37.0 L RED CELL DISTRIBUTION WIDTH CV (test code = RDW) 13.7 % 11.5-14.5 N RED CELL DISTRIBUTION WIDTH SD (test code = RDW-SD) 46.9 fL 37.0-54.0 N PLATELET COUNT (test code = PLT) 109 x10 3/uL 150-400 L IMMATURE PLATELET FRACTION (test code = IPF) 9.2 % 0.9-11.2 N MEAN PLATELET VOLUME (test c ode = MPV) 11.7 fL 7.0-9.0 H NEUTROPHIL % (test code = NT%) 48.4 % 56.0-77.0 L IMMATURE GRANULOCYTE % (test code = IG%) 1.1 % 0.0-2.0 N LYMPHOCYTE % (test code = LY%) 29.3 % 14.0-32.0 N MONOCYTE % (test code = MO%) 19.0 % 4.8-9.0 H EOSINOPHIL % (test code = EO%) 1.8 % 0.3-3.7 N BASOPHIL % (test code = BA%) 0.4 % 0.0-2.0 N NUCLEATED RBC % (test code = NRBC%) 0.0 % 0-0 N NEUTROPHIL # (test code = NT#) 2.74 x10 3/uL 2.0-7.6 N IMMATURE GRANULOCYTE # (test code = IG#) 0.06 x10 3/uL 0.00-0.03 H LYMPHOCYTE # (test code = LY#) 1.65 x10 3/uL 1.0-3.8 N MONOCYTE # (test code = MO#) 1.07 x10 3/uL 0.1-0.8 H EOSINOPHIL # (test code = EO#) 0.10 x10 3/uL 0.0-0.2 N BASOPHIL # (test code = BA#) 0.02 x10 3/uL 0.0-0.2 N NUCLEATED RBC # (test code = NRBC#) 0.00 x10 3/uL 0.0-0.1 N MANUAL DIFF REQUIRED (test c ode = MDIFF) NO PLT [id number] 12:24:00* Test Item Value Reference Range Interpretation Comme nts PLATELET ESTIMATE (test code = PLTEST) 112-140 THOUSAND ADEQUATE PLATELET MORPHOLOGY (test code = PLTMORPH) LARGE PLATELETS LARGE PLTS SEEN [id number] 12:20:00* Test Item Value Reference Range Interpretation Comme nts GLUBED (test code = GLUBED) 156 MG/DL 70-110 H Performed by cer tified egg breaking machine operator at [facility] BASIC METABOLIC [id number] 08:58:00* Test Item Value Reference Range Interpretation Comme nts SODIUM (test code = NA) 136 mEq/L 134-147 N POTASSIUM (test code = K) 4.1 mEq/L 3.4-5.0 N CHLORIDE (test code = CL) 102 mEq/L 100-108 N CARBON DIOXIDE (test code = CO2) 23 mEq/L 21-33 N ANION GAP (test code = GAP) 15 0-20 N GLUCOSE (test code = GLU) 117 mg/dL 70-110 H BLOOD UREA NITROGEN (test code = BUN) 31 mg/dL 7-18 H GLOMERULAR FILTRATION RATE (test code = GFR) 15.3 70-80 L Units of measure = ml/min/1.73 m2 CREATININE (test code = CREAT) 3.0 mg/dL 0.6-1.3 H CALCIUM (test code = CA) 8.1 mg/dL 8.0-10.5 N [id number] 08:58:00* Test Item Value Reference Range Interpretation Comme nts PHOSPHOROUS (test code = PHOS) 3.3 MG/DL 2.5-4.9 N [id number] 08:58:00* Test Item Value Reference Range Interpretation Comme nts MAGNESIUM (test code = MAG) 1.70 mg/dL 1.8-2.4 L CBC W/AUTO [id number] 08:09:00* Test Item Value Reference Range Interpretation Comme nts WHITE BLOOD CELL (test code = WBC) 5.64 x10 3/uL 4.5-11.0 N RED BLOOD CELL (test code = RBC) 2.78 x10 6/uL 3.54-5.02 L HEMOGLOBIN (test code = HGB) 8.4 g/dL 11.0-15.0 L HEMATOCRIT (test code = HCT) 26.3 % 33.0-45.0 L MEAN CELL VOLUME (test code = MCV) 94.6 fL 81.0-99.0 N MEAN CELL HGB (test code = MCH) 30.2 pg 27.0-33.0 N MEAN CELL HGB CONCETRATION (test code = MCHC) 31.9 g/dL 33.0-37.0 L RED CELL DISTRIBUTION WIDTH CV (test code = RDW) 13.7 % 11.5-14.5 N RED CELL DISTRIBUTION WIDTH SD (test code = RDW-SD) 46.9 fL 37.0-54.0 N PLATELET COUNT (test code = PLT) 109 x10 3/uL 150-400 L IMMATURE PLATELET FRACTION (test code = IPF) 9.2 % 0.9-11.2 N MEAN PLATELET VOLUME (test c ode = MPV) 11.7 fL 7.0-9.0 H NEUTROPHIL % (test code = NT%) 48.4 % 56.0-77.0 L IMMATURE GRANULOCYTE % (test code = IG%) 1.1 % 0.0-2.0 N LYMPHOCYTE % (test code = LY%) 29.3 % 14.0-32.0 N MONOCYTE % (test code = MO%) 19.0 % 4.8-9.0 H EOSINOPHIL % (test code = EO%) 1.8 % 0.3-3.7 N BASOPHIL % (test code = BA%) 0.4 % 0.0-2.0 N NUCLEATED RBC % (test code = NRBC%) 0.0 % 0-0 N NEUTROPHIL # (test code = NT#) 2.74 x10 3/uL 2.0-7.6 N IMMATURE GRANULOCYTE # (test code = IG#) 0.06 x10 3/uL 0.00-0.03 H LYMPHOCYTE # (test code = LY#) 1.65 x10 3/uL 1.0-3.8 N MONOCYTE # (test code = MO#) 1.07 x10 3/uL 0.1-0.8 H EOSINOPHIL # (test code = EO#) 0.10 x10 3/uL 0.0-0.2 N BASOPHIL # (test code = BA#) 0.02 x10 3/uL 0.0-0.2 N NUCLEATED RBC # (test code = NRBC#) 0.00 x10 3/uL 0.0-0.1 N MANUAL DIFF REQUIRED (test c ode = MDIFF) NO PLT [id number] 08:09:00* Test Item Value Reference Range Interpretation Comme nts PLATELET ESTIMATE (test code = PLTEST) THOUSAND ADEQUATE CBC W/AUTO [id number] 08:09:00* Test Item Value Reference Range Interpretation Comme nts WHITE BLOOD CELL (test code = WBC) 5.64 x10 3/uL 4.5-11.0 N RED BLOOD CELL (test code = RBC) 2.78 x10 6/uL 3.54-5.02 L HEMOGLOBIN (test code = HGB) 8.4 g/dL 11.0-15.0 L HEMATOCRIT (test code = HCT) 26.3 % 33.0-45.0 L MEAN CELL VOLUME (test code = MCV) 94.6 fL 81.0-99.0 N MEAN CELL HGB (test code = MCH) 30.2 pg 27.0-33.0 N MEAN CELL HGB CONCETRATION (test code = MCHC) 31.9 g/dL 33.0-37.0 L RED CELL DISTRIBUTION WIDTH CV (test code = RDW) 13.7 % 11.5-14.5 N RED CELL DISTRIBUTION WIDTH SD (test code = RDW-SD) 46.9 fL 37.0-54.0 N PLATELET COUNT (test code = PLT) 109 x10 3/uL 150-400 L IMMATURE PLATELET FRACTION (test code = IPF) 9.2 % 0.9-11.2 N MEAN PLATELET VOLUME (test c ode = MPV) 11.7 fL 7.0-9.0 H NEUTROPHIL % (test code = NT%) 48.4 % 56.0-77.0 L IMMATURE GRANULOCYTE % (test code = IG%) 1.1 % 0.0-2.0 N LYMPHOCYTE % (test code = LY%) 29.3 % 14.0-32.0 N MONOCYTE % (test code = MO%) 19.0 % 4.8-9.0 H EOSINOPHIL % (test code = EO%) 1.8 % 0.3-3.7 N BASOPHIL % (test code = BA%) 0.4 % 0.0-2.0 N NUCLEATED RBC % (test code = NRBC%) 0.0 % 0-0 N NEUTROPHIL # (test code = NT#) 2.74 x10 3/uL 2.0-7.6 N IMMATURE GRANULOCYTE # (test code = IG#) 0.06 x10 3/uL 0.00-0.03 H LYMPHOCYTE # (test code = LY#) 1.65 x10 3/uL 1.0-3.8 N MONOCYTE # (test code = MO#) 1.07 x10 3/uL 0.1-0.8 H EOSINOPHIL # (test code = EO#) 0.10 x10 3/uL 0.0-0.2 N BASOPHIL # (test code = BA#) 0.02 x10 3/uL 0.0-0.2 N NUCLEATED RBC # (test code = NRBC#) 0.00 x10 3/uL 0.0-0.1 N MANUAL DIFF REQUIRED (test c ode = MDIFF) NO PLT [id number] 08:09:00* Test Item Value Reference Range Interpretation Comme nts PLATELET ESTIMATE (test code = PLTEST) THOUSAND ADEQUATE [id number] 08:06:00* Test Item Value Reference Range Interpretation Comme nts GLUBED (test code = GLUBED) 121 MG/DL 70-110 H Performed by cer tified egg breaking machine operator at [facility] [id number] 20:33:00* Test Item Value Reference Range Interpretation Comme nts GLUBED (test code = GLUBED) 123 MG/DL 70-110 H Performed by cer tified egg breaking machine operator at [facility] [id number] 16:49:00* Test Item Value Reference Range Interpretation Comme nts GLUBED (test code = GLUBED) 123 MG/DL 70-110 H Performed by cer tified egg breaking machine operator at [facility] [id number] 11:56:00* Test Item Value Reference Range Interpretation Comme nts GLUBED (test code = GLUBED) 142 MG/DL 70-110 H Performed by cer tified egg breaking machine operator at [facility] [id number] 09:07:00* Test Item Value Reference Range Interpretation Comme nts GLUBED (test code = GLUBED) 105 MG/DL 70-110 N Performed by cer tified egg breaking machine operator at [facility] B-TYPE NATRIURETIC [id number] 08:56:00* Test Item Value Reference Range Interpretation Comme nts B-TYPE NATRIURETIC PEPTIDE ( test code = BNP) 109.1 PG/ML 0-100 H BASIC METABOLIC [id number] 08:11:00* Test Item Value Reference Range Interpretation Comme nts SODIUM (test code = NA) 137 mEq/L 134-147 N POTASSIUM (test code = K) 3.6 mEq/L 3.4-5.0 N CHLORIDE (test code = CL) 100 mEq/L 100-108 N CARBON DIOXIDE (test code = CO2) 28 mEq/L 21-33 N ANION GAP (test code = GAP) 13 0-20 N GLUCOSE (test code = GLU) 101 mg/dL 70-110 N BLOOD UREA NITROGEN (test code = BUN) 30 mg/dL 7-18 H GLOMERULAR FILTRATION RATE (test code = GFR) 15.3 70-80 L Units of measure = ml/min/1.73 m2 CREATININE (test code = CREAT) 3.0 mg/dL 0.6-1.3 H CALCIUM (test code = CA) 8.4 mg/dL 8.0-10.5 N [id number] 08:11:00* Test Item Value Reference Range Interpretation Comme nts PHOSPHOROUS (test code = PHOS) 2.8 MG/DL 2.5-4.9 N [id number] 08:11:00* Test Item Value Reference Range Interpretation Comme nts MAGNESIUM (test code = MAG) 1.70 mg/dL 1.8-2.4 L CBC W/AUTO [id number] 08:06:00* Test Item Value Reference Range Interpretation Comme nts WHITE BLOOD CELL (test code = WBC) 5.21 x10 3/uL 4.5-11.0 N RED BLOOD CELL (test code = RBC) 2.78 x10 6/uL 3.54-5.02 L HEMOGLOBIN (test code = HGB) 8.1 g/dL 11.0-15.0 L HEMATOCRIT (test code = HCT) 26.6 % 33.0-45.0 L MEAN CELL VOLUME (test code = MCV) 95.7 fL 81.0-99.0 MEAN CELL HGB (test code = MCH) 29.1 pg 27.0-33.0 N MEAN CELL HGB CONCETRATION (test code = MCHC) 30.5 g/dL 33.0-37.0 L RED CELL DISTRIBUTION WIDTH CV (test code = RDW) 13.6 % 11.5-14.5 N RED CELL DISTRIBUTION WIDTH SD (test code = RDW-SD) 47.8 fL 37.0-54.0 N PLATELET COUNT (test code = PLT) 105 x10 3/uL 150-400 L MEAN PLATELET VOLUME (test c ode = MPV) 12.0 fL 7.0-9.0 H NEUTROPHIL % (test code = NT%) 52.4 % 56.0-77.0 L IMMATURE GRANULOCYTE % (test code = IG%) 0.4 % 0.0-2.0 N LYMPHOCYTE % (test code = LY%) 30.3 % 14.0-32.0 N MONOCYTE % (test code = MO%) 14.0 % 4.8-9.0 H EOSINOPHIL % (test code = EO%) 2.5 % 0.3-3.7 N BASOPHIL % (test code = BA%) 0.4 % 0.0-2.0 N NUCLEATED RBC % (test code = NRBC%) 0.0 % 0-0 N NEUTROPHIL # (test code = NT#) 2.73 x10 3/uL 2.0-7.6 N IMMATURE GRANULOCYTE # (test code = IG#) 0.02 x10 3/uL 0.00-0.03 N LYMPHOCYTE # (test code = LY#) 1.58 x10 3/uL 1.0-3.8 N MONOCYTE # (test code = MO#) 0.73 x10 3/uL 0.1-0.8 N EOSINOPHIL # (test code = EO#) 0.13 x10 3/uL 0.0-0.2 N BASOPHIL # (test code = BA#) 0.02 x10 3/uL 0.0-0.2 N NUCLEATED RBC # (test code = NRBC#) 0.00 x10 3/uL 0.0-0.1 N MANUAL DIFF REQUIRED (test c ode = MDIFF) NO [id number] 20:28:00* Test Item Value Reference Range Interpretation Comme nts GLUBED (test code = GLUBED) 99 MG/DL 70-110 N Performed by cer tified egg breaking machine operator at [facility] [id number] 17:23:00* Test Item Value Reference Range Interpretation Comme nts GLUBED (test code = GLUBED) 80 MG/DL 70-110 N Performed by cer tified egg breaking machine operator at [facility] [id number] 13:32:00* Test Item Value Reference Range Interpretation Comme nts GLUBED (test code = GLUBED) 151 MG/DL 70-110 H Performed by cer tified egg breaking machine operator at [facility] [id number] 09:59:00* Test Item Value Reference Range Interpretation Comme nts GLUBED (test code = GLUBED) 111 MG/DL 70-110 H Performed by cer tified egg breaking machine operator at [facility] BASIC METABOLIC [id number] 08:10:00* Test Item Value Reference Range Interpretation Comme nts SODIUM (test code = NA) 137 mEq/L 134-147 N POTASSIUM (test code = K) 3.3 mEq/L 3.4-5.0 L CHLORIDE (test code = CL) 99 mEq/L 100-108 L CARBON DIOXIDE (test code = CO2) 30 mEq/L 21-33 N ANION GAP (test code = GAP) 11 0-20 N GLUCOSE (test code = GLU) 114 mg/dL 70-110 H BLOOD UREA NITROGEN (test code = BUN) 26 mg/dL 7-18 H GLOMERULAR FILTRATION RATE (test code = GFR) 16.6 70-80 L Units of measure = ml/min/1.73 m2 CREATININE (test code = CREAT) 2.8 mg/dL 0.6-1.3 H CALCIUM (test code = CA) 7.9 mg/dL 8.0-10.5 L [id number] 08:10:00* Test Item Value Reference Range Interpretation Comme nts PHOSPHOROUS (test code = PHOS) 2.6 MG/DL 2.5-4.9 N [id number] 08:10:00* Test Item Value Reference Range Interpretation Comme nts MAGNESIUM (test code = MAG) 1.70 mg/dL 1.8-2.4 L CBC W/AUTO [id number] 07:41:00* Test Item Value Reference Range Interpretation Comme nts WHITE BLOOD CELL (test code = WBC) 5.89 x10 3/uL 4.5-11.0 N RED BLOOD CELL (test code = RBC) 2.77 x10 6/uL 3.54-5.02 L HEMOGLOBIN (test code = HGB) 8.3 g/dL 11.0-15.0 L HEMATOCRIT (test code = HCT) 25.5 % 33.0-45.0 L MEAN CELL VOLUME (test code = MCV) 92.1 fL 81.0-99.0 N MEAN CELL HGB (test code = MCH) 30.0 pg 27.0-33.0 N MEAN CELL HGB CONCETRATION (test code = MCHC) 32.5 g/dL 33.0-37.0 L RED CELL DISTRIBUTION WIDTH CV (test code = RDW) 13.5 % 11.5-14.5 N RED CELL DISTRIBUTION WIDTH SD (test code = RDW-SD) 45.3 fL 37.0-54.0 N PLATELET COUNT (test code = PLT) 106 x10 3/uL 150-400 L IMMATURE PLATELET FRACTION (test code = IPF) 5.0 % 0.9-11.2 N MEAN PLATELET VOLUME (test c ode = MPV) 11.7 fL 7.0-9.0 H NEUTROPHIL % (test code = NT%) 56.6 % 56.0-77.0 N IMMATURE GRANULOCYTE % (test code = IG%) 0.3 % 0.0-2.0 N LYMPHOCYTE % (test code = LY%) 33.1 % 14.0-32.0 H MONOCYTE % (test code = MO%) 8.1 % 4.8-9.0 N EOSINOPHIL % (test code = EO%) 1.7 % 0.3-3.7 N BASOPHIL % (test code = BA%) 0.2 % 0.0-2.0 N NUCLEATED RBC % (test code = NRBC%) 0.0 % 0-0 N NEUTROPHIL # (test code = NT#) 3.33 x10 3/uL 2.0-7.6 N IMMATURE GRANULOCYTE # (test code = IG#) 0.02 x10 3/uL 0.00-0.03 N LYMPHOCYTE # (test code = LY#) 1.95 x10 3/uL 1.0-3.8 N MONOCYTE # (test code = MO#) 0.48 x10 3/uL 0.1-0.8 N EOSINOPHIL # (test code = EO#) 0.10 x10 3/uL 0.0-0.2 N BASOPHIL # (test code = BA#) 0.01 x10 3/uL 0.0-0.2 N NUCLEATED RBC # (test code = NRBC#) 0.00 x10 3/uL 0.0-0.1 N MANUAL DIFF REQUIRED (test c ode = MDIFF) NO [id number] 07:10:00* Test Item Value Reference Range Interpretation Comme nts HAPTOGLOBIN (test code = HAPT) 173 mg/dL 42-346 Performed At: [address] [id number] Sanjai MD Ph:[phone] [id number] 22:23:00* Test Item Value Reference Range Interpretation Comme nts GLUBED (test code = GLUBED) 218 MG/DL 70-110 H Performed by cer tified egg breaking machine operator at [facility] [id number] 16:37:00* Test Item Value Reference Range Interpretation Comme nts GLUBED (test code = GLUBED) 260 MG/DL 70-110 H Performed by cer tified egg breaking machine operator at [facility] [id number] 12:17:00* Test Item Value Reference Range Interpretation Comme nts GLUBED (test code = GLUBED) 178 MG/DL 70-110 H Performed by cer tified egg breaking machine operator at [facility] [id number] 08:26:00* Test Item Value Reference Range Interpretation Comme nts GLUBED (test code = GLUBED) 178 MG/DL 70-110 H Performed by cer tified egg breaking machine operator at [facility] CBC W/AUTO [id number] 08:11:00* Test Item Value Reference Range Interpretation Comme nts WHITE BLOOD CELL (test code = WBC) 9.66 x10 3/uL 4.5-11.0 N RED BLOOD CELL (test code = RBC) 2.98 x10 6/uL 3.54-5.02 L HEMOGLOBIN (test code = HGB) 8.9 g/dL 11.0-15.0 L HEMATOCRIT (test code = HCT) 27.9 % 33.0-45.0 L MEAN CELL VOLUME (test code = MCV) 93.6 fL 81.0-99.0 N MEAN CELL HGB (test code = MCH) 29.9 pg 27.0-33.0 N MEAN CELL HGB CONCETRATION (test code = MCHC) 31.9 g/dL 33.0-37.0 L RED CELL DISTRIBUTION WIDTH CV (test code = RDW) 13.9 % 11.5-14.5 N RED CELL DISTRIBUTION WIDTH SD (test code = RDW-SD) 47.3 fL 37.0-54.0 N PLATELET COUNT (test code = PLT) 71 x10 3/uL 150-400 L MEAN PLATELET VOLUME (test c ode = MPV) 12.8 fL 7.0-9.0 H NEUTROPHIL % (test code = NT%) 83.0 % 56.0-77.0 H IMMATURE GRANULOCYTE % (test code = IG%) 0.4 % 0.0-2.0 N LYMPHOCYTE % (test code = LY%) 10.0 % 14.0-32.0 L MONOCYTE % (test code = MO%) 5.7 % 4.8-9.0 N EOSINOPHIL % (test code = EO%) 0.7 % 0.3-3.7 N BASOPHIL % (test code = BA%) 0.2 % 0.0-2.0 N NUCLEATED RBC % (test code = NRBC%) 0.0 % 0-0 N NEUTROPHIL # (test code = NT#) 8.01 x10 3/uL 2.0-7.6 H IMMATURE GRANULOCYTE # (test code = IG#) 0.04 x10 3/uL 0.00-0.03 H LYMPHOCYTE # (test code = LY#) 0.97 x10 3/uL 1.0-3.8 L MONOCYTE # (test code = MO#) 0.55 x10 3/uL 0.1-0.8 N EOSINOPHIL # (test code = EO#) 0.07 x10 3/uL 0.0-0.2 N BASOPHIL # (test code = BA#) 0.02 x10 3/uL 0.0-0.2 N NUCLEATED RBC # (test code = NRBC#) 0.00 x10 3/uL 0.0-0.1 N MANUAL DIFF REQUIRED (test c ode = MDIFF) NO BASIC METABOLIC [id number] 07:32:00* Test Item Value Reference Range Interpretation Comme nts SODIUM (test code = NA) 138 mEq/L 134-147 N POTASSIUM (test code = K) 3.8 mEq/L 3.4-5.0 N CHLORIDE (test code = CL) 99 mEq/L 100-108 L CARBON DIOXIDE (test code = CO2) 32 mEq/L 21-33 N ANION GAP (test code = GAP) 11 0-20 N GLUCOSE (test code = GLU) 174 mg/dL 70-110 H BLOOD UREA NITROGEN (test code = BUN) 25 mg/dL 7-18 H GLOMERULAR FILTRATION RATE (test code = GFR) 18.1 70-80 L Units of measure = ml/min/1.73 m2 CREATININE (test code = CREAT) 2.6 mg/dL 0.6-1.3 H CALCIUM (test code = CA) 8.1 mg/dL 8.0-10.5 N [id number] 07:32:00* Test Item Value Reference Range Interpretation Comme nts PHOSPHOROUS (test code = PHOS) 3.2 MG/DL 2.5-4.9 N [id number] 07:32:00* Test Item Value Reference Range Interpretation Comme nts MAGNESIUM (test code = MAG) 1.80 mg/dL 1.8-2.4 N [id number] 20:32:00* Test Item Value Reference Range Interpretation Comme nts GLUBED (test code = GLUBED) 136 MG/DL 70-110 H Performed by cer tified egg breaking machine operator at [facility] [id number] 16:35:00* Test Item Value Reference Range Interpretation Comme nts GLUBED (test code = GLUBED) 114 MG/DL 70-110 H Performed by cer tified egg breaking machine operator at [facility] [id number] 16:35:00* Test Item Value Reference Range Interpretation Comme nts GLUBED (test code = GLUBED) 114 MG/DL 70-110 H Performed by cer tified egg breaking machine operator at [facility] [id number] 11:59:00* Test Item Value Reference Range Interpretation Comme nts GLUBED (test code = GLUBED) 162 MG/DL 70-110 H Performed by cer tified egg breaking machine operator at [facility] [id number] 09:04:00* Test Item Value Reference Range Interpretation Comme nts GLUBED (test code = GLUBED) 149 MG/DL 70-110 H Performed by cer tified egg breaking machine operator at [facility] B-TYPE NATRIURETIC [id number] 09:00:00* Test Item Value Reference Range Interpretation Comme nts B-TYPE NATRIURETIC PEPTIDE ( test code = BNP) 492.2 PG/ML 0-100 H BASIC METABOLIC [id number] 09:00:00* Test Item Value Reference Range Interpretation Comme nts SODIUM (test code = NA) 140 mEq/L 134-147 N POTASSIUM (test code = K) 3.7 mEq/L 3.4-5.0 N CHLORIDE (test code = CL) 102 mEq/L 100-108 N CARBON DIOXIDE (test code = CO2) 32 mEq/L 21-33 N ANION GAP (test code = GAP) 10 0-20 N GLUCOSE (test code = GLU) 155 mg/dL 70-110 H BLOOD UREA NITROGEN (test code = BUN) 23 mg/dL 7-18 H GLOMERULAR FILTRATION RATE (test code = GFR) 19.8 70-80 L Units of measure = ml/min/1.73 m2 CREATININE (test code = CREAT) 2.4 mg/dL 0.6-1.3 H CALCIUM (test code = CA) 7.2 mg/dL 8.0-10.5 L HEPATIC FUNCTION [id number] 09:00:00* Test Item Value Reference Range Interpretation Comme nts TOTAL PROTEIN (test code = PROT) 4.5 g/dL 6.4-8.2 L ALBUMIN (test code = ALB) 1.90 g/dL 3.4-5.0 L BILIRUBIN TOTAL (test code = BILT) 0.3 MG/DL <1.5 N BILIRUBIN DIRECT (test code = BILD) 0.10 MG/DL 0.0-0.30 N BILIRUBIN INDIRECT (test cod e = BILIND) 0.20 MG/DL SGOT/AST (test code = AST) 31 IUnit/L 15-37 N SGPT/ALT (test code = ALT) 39 IUnit/L 15-65 N ALKALINE PHOSPHATASE TOTAL ( test code = ALKP) 70 IUnit/L 20-125 N [id number] 09:00:00* Test Item Value Reference Range Interpretation Comme nts PHOSPHOROUS (test code = PHOS) 3.5 MG/DL 2.5-4.9 N LACTIC DEHYDROGENASE(LDH)2019-09-30 09:00:00* Test Item Value Reference Range Interpretation Comme nts LACTIC DEHYDROGENASE(LDH) (t est code = LDH) 270 IUnits/L 84-246 H [id number] 09:00:00* Test Item Value Reference Range Interpretation Comme nts MAGNESIUM (test code = MAG) 1.90 mg/dL 1.8-2.4 N PROTHROMBIN [id number] 08:39:00* Test Item Value Reference Range Interpretation Comme nts PROTHROMBIN TIME PATIENT (test code = PTP) 14.3 SECONDS 9.3-12.9 H INTERNATIONAL NORMAL RATIO (test code = INR) 1.3 0.8-1.2 H TARGET INR BY INDICATION Indication INR1. Prophylaxis of venous thrombosis 2.0 - 3.0 (orthopedic surgery), Prophylaxis of venous thrombosis (other than high-risk surgery), Treatment of Deep Vein Thrombosis/Pulmonary Embolism, Prevention of systemic embolism - Tissue heart valves, Acute Myocardial Infarction (to prevent systemic embolism), Valvular heart disease, Atrial Fibrillation, Bileaflet mechanical valve in aortic position.2. Mechanical prosthetic valves (high risk), 2.5 - 3.5 Presence of Lupus Anticoagulant or Antiphospholipid Antibodies, Prevention of systemic embolism - Acute Myocardial Infarction (to prevent recurrent infarct). THROMBOPLASTIN TIME [id number] 08:39:00* Test Item Value Reference Range Interpretation Comme nts THROMBOPLASTIN TIME PARTIAL (test code = PTT) 28.5 Seconds 25.0-39.5 N Therapeutic Rang e: 50.4 - 88.3 Seconds Effective 09/25/2018 [id number] 08:31:00* Test Item Value Reference Range Interpretation Comme nts GLUBED (test code = GLUBED) 146 MG/DL 70-110 H Performed by cer tified egg breaking machine operator at [facility] - XR CHEST 1 [id number] 07:34:00FAX: Joel Falk [phone] [place]: St: ADM FAX: Helga Escalante NP [phone] ---- Name: MAC AGUSTIN [facility] : 1945 Age/S: 74/F [address] [place] [address] Blvd Unit #: [id number] Loc: Efra[address].M[address] [place] [address] Phys: Helga Escalante NP Acct: [id number] Dis Date: Status: ADM IN PHONE #: [phone] Exam Date: 09/30/2019513 FAX #: [phone] Reason: PNEUMONIA EXAMS: CPT CODE: [id number] XR CHEST 1 V 44531 Chest single view 09/30/2019 HISTORY: Pneumonia Comparison is made to 09/29/2019 FINDINGS: Bilateral pleural effusions and bibasilar atelectasis/infiltrates have decreased since prior study. Mild cardiomegaly is unchanged. Aorta contains calcifications. Interstitial edema has decreased. Right jugular line has been removed. IMPRESSION: 1. Decreasing bilateral pleural effusions withdecreasing bibasilar atelectasis/infiltrates. 2. Decreasing interstitial edema. 3. Removal of rightjugular line. SL: [id number] at 0734 Reported and signed by: Jose Dumont M.D. CC: Joel Myers MD; Lenin CERON Technologist: Niurka Peña, RT(R) Trnscrd Date/Time/By: 09/30/2019 (0734) : By: [email or web address] Orig Print D/T: S: 09/30/2019 (0711) PAGE 1 Signed Report- XR ABDOMEN 1V (KUB)2019-09-30 07:33:00 FAX: Joel Falk [phone] [place]: St: ADM FAX: Helga Escalante NP [phone] ---- Name: MAC AGUSTIN [facility] : 1945 Age/S: 74/F [address] [place], [place] [address]vd Unit #: [id number] Loc: G.M317 [place] [address] Phys: Helga Escalante NP Acct: [id number] Dis Date: Status: ADM IN PHONE #: Exam Date: 09/30/2019513 FAX #: [phone] Reason: DIARRHEA/ABDOMINAL DISTENTION EXAMS: CPT CODE: [id number] XR ABDOMEN 1V (KUB) 53410 Abdomen single view 09/30/2019 HISTORY: Diarrhea. Abdominal distention Comparison is made to CT 09/26/2019 FINDINGS: There is diffuse demineralization. Vascular calcifications in the pelvis are present. No bowel dilatation is present. Rectal gas is present. Surgical clips in the right upper quadrant likely represent previous cholecystectomy. IMPRESSION: Nonobstructed bowel gas pattern. SL: [id number] at 0739 Reported and signed by: Jose Dumont M.D. CC: Joel Myers MD; Helga Escalante NP Technologist: RT Inga(R) Trnscrd Date/Time/By: 09/30/2019 (0733) : By: [email or web address] Orig Print D/T: S: 09/30/2019 (1718) PAGE 1 Signed ReportCOMPREHENSIVE METABOLIC [id number] 06:15:00* Test Item Value Reference Range Interpretation Comme nts SODIUM (test code = NA) 138 mEq/L 134-147 N POTASSIUM (test code = K) 3.5 mEq/L 3.4-5.0 N CHLORIDE (test code = CL) 100 mEq/L 100-108 N CARBON DIOXIDE (test code = CO2) 34 mEq/L 21-33 H ANION GAP (test code = GAP) 8 0-20 N GLUCOSE (test code = GLU) 270 mg/dL 70-110 H BLOOD UREA NITROGEN (test code = BUN) 22 mg/dL 7-18 H GLOMERULAR FILTRATION RATE (test code = GFR) 19.8 70-80 L Units of measure = ml/min/1.73 m2 CREATININE (test code = CREAT) 2.4 mg/dL 0.6-1.3 H TOTAL PROTEIN (test code = PROT) 5.0 g/dL 6.4-8.2 L ALBUMIN (test code = ALB) 1.80 g/dL 3.4-5.0 L CALCIUM (test code = CA) 7.4 mg/dL 8.0-10.5 L BILIRUBIN TOTAL (test code = BILT) 0.3 MG/DL <1.5 N SGOT/AST (test code = AST) 31 IUnit/L 15-37 N SGPT/ALT (test code = ALT) 39 IUnit/L 15-65 N ALKALINE PHOSPHATASE TOTAL (test code = ALKP) 69 IUnit/L 20-125 N [id number] 06:15:00* Test Item Value Reference Range Interpretation Comme nts PHOSPHOROUS (test code = PHOS) 3.2 MG/DL 2.5-4.9 N [id number] 06:15:00* Test Item Value Reference Range Interpretation Comme nts MAGNESIUM (test code = MAG) 1.90 mg/dL 1.8-2.4 N CALCIUM [id number] 06:15:00* Test Item Value Reference Range Interpretation Comme nts CALCIUM IONIZED (test code = DMITRY) 1.05 MMOL/L 1.12-1.32 L LACTIC [id number] 06:06:00* Test Item Value Reference Range Interpretation Comme nts LACTIC ACID (test code = LACT) 1.3 mmol/L 0.4-1.9 N COMPREHENSIVE METABOLIC [id number] 05:58:00* Test Item Value Reference Range Interpretation Comme nts SODIUM (test code = NA) mEq/L 134-147 POTASSIUM (test code = K) mEq/L 3.4-5.0 CHLORIDE (test code = CL) mEq/L 100-108 CARBON DIOXIDE (test code = CO2) mEq/L 21-33 ANION GAP (test code = GAP) 0-20 GLUCOSE (test code = GLU) mg/dL 70-110 BLOOD UREA NITROGEN (test code = BUN) mg/dL 7-18 GLOMERULAR FILTRATION RATE ( test code = GFR) 70-80 CREATININE (test code = CREAT) mg/dL 0.6-1.3 TOTAL PROTEIN (test code = PROT) g/dL 6.4-8.2 ALBUMIN (test code = ALB) g/dL 3.4-5.0 CALCIUM (test code = CA) mg/dL 8.0-10.5 BILIRUBIN TOTAL (test code = BILT) MG/DL <1.5 SGOT/AST (test code = AST) IUnit/L 15-37 SGPT/ALT (test code = ALT) IUnit/L 15-65 ALKALINE PHOSPHATASE TOTAL ( test code = ALKP) IUnit/L 20-125 [id number] 05:58:00* Test Item Value Reference Range Interpretation Comme nts PHOSPHOROUS (test code = PHOS) MG/DL 2.5-4.9 [id number] 05:58:00* Test Item Value Reference Range Interpretation Comme nts MAGNESIUM (test code = MAG) mg/dL 1.8-2.4 CALCIUM [id number] 05:58:00* Test Item Value Reference Range Interpretation Comme nts CALCIUM IONIZED (test code = DMITRY) 1.05 MMOL/L 1.12-1.32 L CBC W/AUTO [id number] 05:48:00* Test Item Value Reference Range Interpretation Comme nts WHITE BLOOD CELL (test code = WBC) 10.57 x10 3/uL 4.5-11.0 N RED BLOOD CELL (test code = RBC) 2.60 x10 6/uL 3.54-5.02 L HEMOGLOBIN (test code = HGB) 7.8 g/dL 11.0-15.0 L HEMATOCRIT (test code = HCT) 24.0 % 33.0-45.0 L MEAN CELL VOLUME (test code = MCV) 92.3 fL 81.0-99.0 MEAN CELL HGB (test code = MCH) 30.0 pg 27.0-33.0 N MEAN CELL HGB CONCETRATION (test code = MCHC) 32.5 g/dL 33.0-37.0 L RED CELL DISTRIBUTION WIDTH CV (test code = RDW) 14.0 % 11.5-14.5 N RED CELL DISTRIBUTION WIDTH SD (test code = RDW-SD) 47.2 fL 37.0-54.0 N PLATELET COUNT (test code = PLT) 60 x10 3/uL 150-400 L MEAN PLATELET VOLUME (test code = MPV) 12.3 fL 7.0-9.0 H NEUTROPHIL % (test code = NT%) 81.0 % 56.0-77.0 H IMMATURE GRANULOCYTE % (test code = IG%) 0.5 % 0.0-2.0 N LYMPHOCYTE % (test code = LY%) 12.7 % 14.0-32.0 L MONOCYTE % (test code = MO%) 5.2 % 4.8-9.0 N EOSINOPHIL % (test code = EO%) 0.5 % 0.3-3.7 N BASOPHIL % (test code = BA%) 0.1 % 0.0-2.0 N NUCLEATED RBC % (test code = NRBC%) 0.0 % 0-0 N NEUTROPHIL # (test code = NT#) 8.57 x10 3/uL 2.0-7.6 H IMMATURE GRANULOCYTE # (test code = IG#) 0.05 x10 3/uL 0.00-0.03 H LYMPHOCYTE # (test code = LY#) 1.34 x10 3/uL 1.0-3.8 N MONOCYTE # (test code = MO#) 0.55 x10 3/uL 0.1-0.8 N EOSINOPHIL # (test code = EO#) 0.05 x10 3/uL 0.0-0.2 N BASOPHIL # (test code = BA#) 0.01 x10 3/uL 0.0-0.2 N NUCLEATED RBC # (test code = NRBC#) 0.00 x10 3/uL 0.0-0.1 N MANUAL DIFF REQUIRED (test code = MDIFF) NO BASIC METABOLIC [id number] 00:27:00* Test Item Value Reference Range Interpretation Comme nts SODIUM (test code = NA) 139 mEq/L 134-147 N POTASSIUM (test code = K) 3.9 mEq/L 3.4-5.0 N CHLORIDE (test code = CL) 101 mEq/L 100-108 N CARBON DIOXIDE (test code = CO2) 34 mEq/L 21-33 H ANION GAP (test code = GAP) 8 0-20 N GLUCOSE (test code = GLU) 231 mg/dL 70-110 H BLOOD UREA NITROGEN (test code = BUN) 23 mg/dL 7-18 H GLOMERULAR FILTRATION RATE (test code = GFR) 19.8 70-80 L Units of measure = ml/min/1.73 m2 CREATININE (test code = CREAT) 2.4 mg/dL 0.6-1.3 H CALCIUM (test code = CA) 7.6 mg/dL 8.0-10.5 L [id number] 00:27:00* Test Item Value Reference Range Interpretation Comme nts PHOSPHOROUS (test code = PHOS) 3.2 MG/DL 2.5-4.9 N [id number] 00:27:00* Test Item Value Reference Range Interpretation Comme nts MAGNESIUM (test code = MAG) 1.80 mg/dL 1.8-2.4 N LACTIC [id number] 17:55:00* Test Item Value Reference Range Interpretation Comme nts LACTIC ACID (test code = LACT) 1.2 mmol/L 0.4-1.9 N BASIC METABOLIC [id number] 17:54:00* Test Item Value Reference Range Interpretation Comme nts SODIUM (test code = NA) 139 mEq/L 134-147 N POTASSIUM (test code = K) 3.7 mEq/L 3.4-5.0 N CHLORIDE (test code = CL) 103 mEq/L 100-108 N CARBON DIOXIDE (test code = CO2) 31 mEq/L 21-33 N ANION GAP (test code = GAP) 9 0-20 N GLUCOSE (test code = GLU) 186 mg/dL 70-110 H BLOOD UREA NITROGEN (test code = BUN) 21 mg/dL 7-18 H GLOMERULAR FILTRATION RATE (test code = GFR) 23.2 70-80 L Units of measure = ml/min/1.73 m2 CREATININE (test code = CREAT) 2.1 mg/dL 0.6-1.3 H CALCIUM (test code = CA) 7.0 mg/dL 8.0-10.5 L [id number] 17:54:00* Test Item Value Reference Range Interpretation Comme nts PHOSPHOROUS (test code = PHOS) 2.8 MG/DL 2.5-4.9 N [id number] 17:54:00* Test Item Value Reference Range Interpretation Comme nts MAGNESIUM (test code = MAG) 2.00 mg/dL 1.8-2.4 N BASIC METABOLIC [id number] 17:48:00* Test Item Value Reference Range Interpretation Comme nts SODIUM (test code = NA) 139 mEq/L 134-147 N POTASSIUM (test code = K) 3.7 mEq/L 3.4-5.0 N CHLORIDE (test code = CL) 103 mEq/L 100-108 N CARBON DIOXIDE (test code = CO2) 31 mEq/L 21-33 N ANION GAP (test code = GAP) 9 0-20 N GLUCOSE (test code = GLU) 186 mg/dL 70-110 H BLOOD UREA NITROGEN (test co de = BUN) 21 mg/dL 7-18 H GLOMERULAR FILTRATION RATE ( test code = GFR) 70-80 CREATININE (test code = CREAT) mg/dL 0.6-1.3 CALCIUM (test code = CA) 7.0 mg/dL 8.0-10.5 L [id number] 17:48:00* Test Item Value Reference Range Interpretation Comme nts PHOSPHOROUS (test code = PHOS) MG/DL 2.5-4.9 [id number] 17:48:00* Test Item Value Reference Range Interpretation Comme nts MAGNESIUM (test code = MAG) 2.00 mg/dL 1.8-2.4 N [id number] 17:15:00* Test Item Value Reference Range Interpretation Comme nts GLUBED (test code = GLUBED) 154 MG/DL 70-110 H Performed by cer tified egg breaking machine operator at [facility] [id number] 17:14:00* Test Item Value Reference Range Interpretation Comme nts GLUBED (test code = GLUBED) 143 MG/DL 70-110 H Performed by cer tified egg breaking machine operator at [facility] [id number] 17:14:00* Test Item Value Reference Range Interpretation Comme nts GLUBED (test code = GLUBED) 112 MG/DL 70-110 H Performed by cer [employer] egg breaking machine operator at [facility] [id number] 17:14:00* Test Item Value Reference Range Interpretation Comme nts GLUBED (test code = GLUBED) 79 MG/DL 70-110 N Performed by [facility] tified egg breaking machine operator at [facility] BASIC METABOLIC [id number] 12:59:00* Test Item Value Reference Range Interpretation Comme nts SODIUM (test code = NA) 141 mEq/L 134-147 N POTASSIUM (test code = K) 4.5 mEq/L 3.4-5.0 CHLORIDE (test code = CL) 104 mEq/L 100-108 N CARBON DIOXIDE (test code = CO2) 31 mEq/L 21-33 N ANION GAP (test code = GAP) 11 0-20 N GLUCOSE (test code = GLU) 156 mg/dL 70-110 H BLOOD UREA NITROGEN (test code = BUN) 19 mg/dL 7-18 H GLOMERULAR FILTRATION RATE (test code = GFR) 23.2 70-80 L Units of measure = ml/min/1.73 m2 CREATININE (test code = CREAT) 2.1 mg/dL 0.6-1.3 H CALCIUM (test code = CA) 7.3 mg/dL 8.0-10.5 L [id number] 12:59:00* Test Item Value Reference Range Interpretation Comme nts PHOSPHOROUS (test code = PHOS) 3.1 MG/DL 2.5-4.9 [id number] 12:59:00* Test Item Value Reference Range Interpretation Comme nts MAGNESIUM (test code = MAG) 1.90 mg/dL 1.8-2.4 N LACTIC ACID [id number] 10:16:00* Test Item Value Reference Range Interpretation Comme nts LACTIC ACID REPEAT (test cod e = LACTR) 2.1 mmol/l 0.4-1.9 H - XR CHEST 1 [id number] 07:08:00FAX: Joel Falk [phone] [place]: St: ADM FAX: Marisabel Berkowitz DO [phone] ------- Name: MAC AGUSTIN : 1945 Age/S: 74/F [address] [place] [address] Blvd Unit #: [id number] Loc: G.M317 [place] [address] Phys: Marisabel Chu DO Acct: [id number] Dis Date: Status: ADM IN PHONE #: [phone] Exam Date: 09/29/2019 05 FAX #: [phone] Reason: SOB EXAMS: CPT CODE: [id number] XR CHEST 1 V 34201 CHEST RADIOGRAPH ONE VIEW 09/29/2019 AT 0507 HOURS. CLINICAL HISTORY: Shortness of breath. COMPARISON STUDIES: Chest one view 09/27/[address] 09/26/2019. FINDINGS: One view of the chest was obtained. Developing moderate bilateral pleural effusions layering posteriorly with compressive atele ctasis and with increasing dense left retrocardiac opacity. [...] early consolidation. 3. Enlarged cardiac silhouette. SL: [id number] at 0708 Reported and signed by: Scott Duran M.D. CC: Joel Myers MD; Marisabel Chu DO Technologist: RT Inga(R) Trnscrd Date/Time/By: 09/29/2019 (707) : By: [email or web address] Orig Print D/T: S: 09/29/2019 (12) PAGE 1 Signed ReportB-TYPE NATRIURETIC [id number] 05:54:00* Test Item Value Reference Range Interpretation Comme nts B-TYPE NATRIURETIC PEPTIDE ( test code = BNP) 546.7 PG/ML 0-100 H HGBA1C%2019-09-29 05:31:00* Test Item Value Reference Range Interpretation Comme nts HGBA1C% (test code = HGBA1C%) 6.0 %A1C 4.8-6.0 N BASIC METABOLIC [id number] 05:30:00* Test Item Value Reference Range Interpretation Comme nts SODIUM (test code = NA) 142 mEq/L 134-147 N POTASSIUM (test code = K) 2.7 mEq/L 3.4-5.0 LL CHLORIDE (test code = CL) 103 mEq/L 100-108 N CARBON DIOXIDE (test code = CO2) 32 mEq/L 21-33 N ANION GAP (test code = GAP) 10 0-20 N GLUCOSE (test code = GLU) 109 mg/dL 70-110 N BLOOD UREA NITROGEN (test code = BUN) 19 mg/dL 7-18 H GLOMERULAR FILTRATION RATE (test code = GFR) 21.9 70-80 L Units of measure = ml/min/1.73 m2 CREATININE (test code = CREAT) 2.2 mg/dL 0.6-1.3 H CALCIUM (test code = CA) 7.2 mg/dL 8.0-10.5 L [id number] 05:30:00* Test Item Value Reference Range Interpretation Comme nts PHOSPHOROUS (test code = PHOS) 1.4 MG/DL 2.5-4.9 L [id number] 05:30:00* Test Item Value Reference Range Interpretation Comme nts MAGNESIUM (test code = MAG) 2.00 mg/dL 1.8-2.4 N ACETONE [id number] 05:30:00* Test Item Value Reference Range Interpretation Comme nts ACETONE QUANT (test code = ACETN) NEGATIVE - <20mg/dL mg/dL NEG - <20 BASIC METABOLIC [id number] 05:29:00* Test Item Value Reference Range Interpretation Comme nts SODIUM (test code = NA) mEq/L 134-147 POTASSIUM (test code = K) mEq/L 3.4-5.0 CHLORIDE (test code = CL) mEq/L 100-108 CARBON DIOXIDE (test code = CO2) mEq/L 21-33 ANION GAP (test code = GAP) 0-20 GLUCOSE (test code = GLU) mg/dL 70-110 BLOOD UREA NITROGEN (test code = BUN) mg/dL 7-18 GLOMERULAR FILTRATION RATE ( test code = GFR) 70-80 CREATININE (test code = CREAT) mg/dL 0.6-1.3 CALCIUM (test code = CA) mg/dL 8.0-10.5 [id number] 05:29:00* Test Item Value Reference Range Interpretation Comme nts PHOSPHOROUS (test code = PHOS) MG/DL 2.5-4.9 [id number] 05:29:00* Test Item Value Reference Range Interpretation Comme nts MAGNESIUM (test code = MAG) mg/dL 1.8-2.4 ACETONE [id number] 05:29:00* Test Item Value Reference Range Interpretation Comme nts ACETONE QUANT (test code = ACETN) NEGATIVE - <20mg/dL mg/dL NEG - <20 LACTIC [id number] 05:26:00* Test Item Value Reference Range Interpretation Comme nts LACTIC ACID (test code = LACT) 4.0 mmol/L 0.4-1.9 H CBC W/AUTO [id number] 05:08:00* Test Item Value Reference Range Interpretation Comme nts WHITE BLOOD CELL (test code = WBC) 13.57 x10 3/uL 4.5-11.0 H RED BLOOD CELL (test code = RBC) 2.58 x10 6/uL 3.54-5.02 L HEMOGLOBIN (test code = HGB) 7.8 g/dL 11.0-15.0 L HEMATOCRIT (test code = HCT) 23.0 % 33.0-45.0 L MEAN CELL VOLUME (test code = MCV) 89.1 fL 81.0-99.0 MEAN CELL HGB (test code = MCH) 30.2 pg 27.0-33.0 N MEAN CELL HGB CONCETRATION (test code = MCHC) 33.9 g/dL 33.0-37.0 N RED CELL DISTRIBUTION WIDTH CV (test code = RDW) 14.0 % 11.5-14.5 N RED CELL DISTRIBUTION WIDTH SD (test code = RDW-SD) 45.7 fL 37.0-54.0 N PLATELET COUNT (test code = PLT) 81 x10 3/uL 150-400 L MEAN PLATELET VOLUME (test code = MPV) 12.0 fL 7.0-9.0 H NEUTROPHIL % (test code = NT%) 86.6 % 56.0-77.0 H IMMATURE GRANULOCYTE % (test code = IG%) 1.5 % 0.0-2.0 N LYMPHOCYTE % (test code = LY%) 7.1 % 14.0-32.0 L MONOCYTE % (test code = MO%) 4.6 % 4.8-9.0 L EOSINOPHIL % (test code = EO%) 0.1 % 0.3-3.7 L BASOPHIL % (test code = BA%) 0.1 % 0.0-2.0 N NUCLEATED RBC % (test code = NRBC%) 0.0 % 0-0 N NEUTROPHIL # (test code = NT#) 11.76 x10 3/uL 2.0-7.6 H IMMATURE GRANULOCYTE # (test code = IG#) 0.20 x10 3/uL 0.00-0.03 H LYMPHOCYTE # (test code = LY#) 0.96 x10 3/uL 1.0-3.8 L MONOCYTE # (test code = MO#) 0.62 x10 3/uL 0.1-0.8 N EOSINOPHIL # (test code = EO#) 0.01 x10 3/uL 0.0-0.2 N BASOPHIL # (test code = BA#) 0.02 x10 3/uL 0.0-0.2 N NUCLEATED RBC # (test code = NRBC#) 0.00 x10 3/uL 0.0-0.1 N MANUAL DIFF REQUIRED (test code = MDIFF) NO [id number] 01:50:00* Test Item Value Reference Range Interpretation Comme nts GLUBED (test code = GLUBED) 134 MG/DL 70-110 H Performed by cer tified egg breaking machine operator at [facility] BASIC METABOLIC [id number] 00:45:00* Test Item Value Reference Range Interpretation Comme nts SODIUM (test code = NA) 143 mEq/L 134-147 N POTASSIUM (test code = K) 3.5 mEq/L 3.4-5.0 N CHLORIDE (test code = CL) 104 mEq/L 100-108 N CARBON DIOXIDE (test code = CO2) 30 mEq/L 21-33 ANION GAP (test code = GAP) 13 0-20 N GLUCOSE (test code = GLU) 128 mg/dL 70-110 H BLOOD UREA NITROGEN (test code = BUN) 20 mg/dL 7-18 H GLOMERULAR FILTRATION RATE (test code = GFR) 23.2 70-80 L Units of measure = ml/min/1.73 m2 CREATININE (test code = CREAT) 2.1 mg/dL 0.6-1.3 H CALCIUM (test code = CA) 7.6 mg/dL 8.0-10.5 L [id number] 00:45:00* Test Item Value Reference Range Interpretation Comme nts PHOSPHOROUS (test code = PHOS) 1.9 MG/DL 2.5-4.9 L [id number] 00:04:00* Test Item Value Reference Range Interpretation Comme nts MAGNESIUM (test code = MAG) 2.00 mg/dL 1.8-2.4 N COMMENTS: Every 6 hours until anion gap </= 12 mEq/L, then every morningGLUBED 2019-09-28 23:39:00* Test Item Value Reference Range Interpretation Comme nts GLUBED (test code = GLUBED) 138 MG/DL 70-110 H Performed by cer tified egg breaking machine operator at [facility] [id number] 21:56:00* Test Item Value Reference Range Interpretation Comme nts GLUBED (test code = GLUBED) 130 MG/DL 70-110 H Performed by cer tified egg breaking machine operator at [facility] [id number] 18:56:00* Test Item Value Reference Range Interpretation Comme nts GLUBED (test code = GLUBED) 151 MG/DL 70-110 H Performed by cer tified egg breaking machine operator at [facility] BASIC METABOLIC [id number] 18:54:00* Test Item Value Reference Range Interpretation Comme nts SODIUM (test code = NA) 142 mEq/L 134-147 N POTASSIUM (test code = K) 3.3 mEq/L 3.4-5.0 L CHLORIDE (test code = CL) 104 mEq/L 100-108 N CARBON DIOXIDE (test code = CO2) 22 mEq/L 21-33 N ANION GAP (test code = GAP) 19 0-20 N GLUCOSE (test code = GLU) 153 mg/dL 70-110 H BLOOD UREA NITROGEN (test code = BUN) 20 mg/dL 7-18 H GLOMERULAR FILTRATION RATE (test code = GFR) 26.0 70-80 L Units of measure = ml/min/1.73 m2 CREATININE (test code = CREAT) 1.9 mg/dL 0.6-1.3 H CALCIUM (test code = CA) 7.1 mg/dL 8.0-10.5 L [id number] 18:54:00* Test Item Value Reference Range Interpretation Comme nts PHOSPHOROUS (test code = PHOS) 2.2 MG/DL 2.5-4.9 L [id number] 18:54:00* Test Item Value Reference Range Interpretation Comme nts MAGNESIUM (test code = MAG) 2.10 mg/dL 1.8-2.4 N [id number] 18:39:00* Test Item Value Reference Range Interpretation Comme nts GLUBED (test code = GLUBED) 152 MG/DL 70-110 H Performed by cer tified egg breaking machine operator at [facility] [id number] 18:39:00* Test Item Value Reference Range Interpretation Comme nts GLUBED (test code = GLUBED) 123 MG/DL 70-110 H Performed by cer tified egg breaking machine operator at [facility] [id number] 18:39:00* Test Item Value Reference Range Interpretation Comme nts GLUBED (test code = GLUBED) 138 MG/DL 70-110 H Performed by cer tified egg breaking machine operator at [facility] [id number] 13:20:00* Test Item Value Reference Range Interpretation Comme nts MAGNESIUM (test code = MAG) 2.30 mg/dL 1.8-2.4 N COMMENTS: Every 6 hours until anion gap </= 12 mEq/L, then every morningARTERIAL BLOOD [id number] 11:48:00* Test Item Value Reference Range Interpretation Comme nts ARTERIAL BLOOD GAS PH (test code = PHA) 7.395 7.35-7.45 N ARTERIAL BLOOD GAS PCO2 (mekhi t code = PCO2A) 24.1 mmHg 35-45 LL ARTERIAL BLOOD GAS PO2 (test code = PO2A) 136 mmHg 80-100 H BICARBONATE TOTAL HCO3 (test code = HCO3) 14.7 mmol/L 22.0-26.0 L BASE EXCESS (test code = JACOB) -10.0 mmol/L -4-4 L ABG O2 SATURATION (test code = SATA) 99 % 90-100 N ABG DELIVERY (test code = CABRERA) Cannula ABG TEMPERATURE (test code = TEMPA) 98.6 F ABG SITE (test code = SITEA) R Rad TCO2 ARTERIAL (test code = TCO2A) 15 URINALYSIS [id number] 11:44:00* Test Item Value Reference Range Interpretation Comme nts UA COLOR (test code = COLU) YELLOW YEL/STRAW UA APPEARANCE (test code = APPU) SL CLOUDY CLEAR UA GLUCOSE DIPSTICK (test co de = DGLUU) 3+ NEGATIVE A UA BILIRUBIN DIPSTICK (test code = BILU) NEGATIVE NEGATIVE UA KETONE DIPSTICK (test cod e = KETU) 2+ NEGATIVE A UA SPECIFIC GRAVITY (test co de = SGU) 1.006 1.005-1.030 N UA BLOOD DIPSTICK (test code = ESSIE) 3+ NEGATIVE A UA PH DIPSTICK (test code = AURORA) 5.0 5.0-7.0 N UA PROTEIN DIPSTICK (test co de = PROU) 1+ NEGATIVE A UA UROBILINIOGEN DIPSTICK (t est code = URO) 0.2 mg/dL 0.2-1.0 UA NITRITE DIPSTICK (test co de = MEHDI) NEGATIVE NEGATIVE UA LEUKOCYTE ESTERASE DIPSTI CK (test code = LEUU) 2+ NEGATIVE A UA RBC (test code = RBCU) 21-50 RBC/HPF 0-3 UA WBC NO REFLEX (test code = WBCUCL) 21-50 WBC/HPF 0-3 A UA BACTERIA (test code = BACU) 1+ /HPF NONE SEEN A UA SQUAMOUS CELLS (test code = SQU) 0-5 /HPF NONE SEEN UA TRANSITIONAL CELLS (test code = TRANU) TRACE /HPF NONE SEEN UA HYALINE CAST (test code = HYALU) 3-5 /LPF NONE SEEN UA MUCUS (test code = MUCU) TRACE /LPF NONE SEEN UA AMORPHOUS SEDIMENT (test code = AMORU) 1+ /HPF NONE A BASIC METABOLIC [id number] 11:32:00* Test Item Value Reference Range Interpretation Comme nts SODIUM (test code = NA) 143 mEq/L 134-147 N POTASSIUM (test code = K) 3.2 mEq/L 3.4-5.0 L CHLORIDE (test code = CL) 104 mEq/L 100-108 N CARBON DIOXIDE (test code = CO2) 18 mEq/L 21-33 L ANION GAP (test code = GAP) 24 0-20 H GLUCOSE (test code = GLU) 159 mg/dL 70-110 H BLOOD UREA NITROGEN (test code = BUN) 20 mg/dL 7-18 H GLOMERULAR FILTRATION RATE (test code = GFR) 34.1 70-80 L Units of measure = ml/min/1.73 m2 CREATININE (test code = CREAT) 1.5 mg/dL 0.6-1.3 H CALCIUM (test code = CA) 7.4 mg/dL 8.0-10.5 L ACETONE [id number] 11:32:00* Test Item Value Reference Range Interpretation Comme nts ACETONE QUANT (test code = ACETN) Large - 80-100 mg/dL mg/dL NEG - <20 LACTIC [id number] 11:31:00* Test Item Value Reference Range Interpretation Comme nts LACTIC ACID (test code = LACT) 1.3 mmol/L 0.4-1.9 N BASIC METABOLIC [id number] 11:29:00* Test Item Value Reference Range Interpretation Comme nts SODIUM (test code = NA) 143 mEq/L 134-147 N POTASSIUM (test code = K) 3.2 mEq/L 3.4-5.0 L CHLORIDE (test code = CL) 104 mEq/L 100-108 N CARBON DIOXIDE (test code = CO2) 18 mEq/L 21-33 L ANION GAP (test code = GAP) 24 0-20 H GLUCOSE (test code = GLU) 159 mg/dL 70-110 H BLOOD UREA NITROGEN (test co de = BUN) 20 mg/dL 7-18 H GLOMERULAR FILTRATION RATE ( test code = GFR) 70-80 CREATININE (test code = CREAT) mg/dL 0.6-1.3 CALCIUM (test code = CA) 7.4 mg/dL 8.0-10.5 L ACETONE [id number] 11:29:00* Test Item Value Reference Range Interpretation Comme nts ACETONE QUANT (test code = ACETN) Large - 80-100 mg/dL mg/dL NEG - <20 BASIC METABOLIC [id number] 11:21:00* Test Item Value Reference Range Interpretation Comme nts SODIUM (test code = NA) mEq/L 134-147 POTASSIUM (test code = K) mEq/L 3.4-5.0 CHLORIDE (test code = CL) mEq/L 100-108 CARBON DIOXIDE (test code = CO2) mEq/L 21-33 ANION GAP (test code = GAP) 0-20 GLUCOSE (test code = GLU) mg/dL 70-110 BLOOD UREA NITROGEN (test code = BUN) mg/dL 7-18 GLOMERULAR FILTRATION RATE ( test code = GFR) 70-80 CREATININE (test code = CREAT) mg/dL 0.6-1.3 CALCIUM (test code = CA) mg/dL 8.0-10.5 ACETONE [id number] 11:21:00* Test Item Value Reference Range Interpretation Comme nts ACETONE QUANT (test code = ACETN) Large - 80-100 mg/dL mg/dL NEG - <20 [id number] 07:57:00* Test Item Value Reference Range Interpretation Comme nts GLUBED (test code = GLUBED) 169 MG/DL 70-110 H Performed by cer tified egg breaking machine operator at [facility] CBC W/AUTO [id number] 05:24:00* Test Item Value Reference Range Interpretation Comme nts WHITE BLOOD CELL (test code = WBC) 15.02 x10 3/uL 4.5-11.0 H RED BLOOD CELL (test code = RBC) 2.79 x10 6/uL 3.54-5.02 L HEMOGLOBIN (test code = HGB) 8.4 g/dL 11.0-15.0 L HEMATOCRIT (test code = HCT) 26.0 % 33.0-45.0 L MEAN CELL VOLUME (test code = MCV) 93.2 fL 81.0-99.0 MEAN CELL HGB (test code = MCH) 30.1 pg 27.0-33.0 N MEAN CELL HGB CONCETRATION (test code = MCHC) 32.3 g/dL 33.0-37.0 L RED CELL DISTRIBUTION WIDTH CV (test code = RDW) 14.1 % 11.5-14.5 N RED CELL DISTRIBUTION WIDTH SD (test code = RDW-SD) 47.6 fL 37.0-54.0 N PLATELET COUNT (test code = PLT) 99 x10 3/uL 150-400 L MEAN PLATELET VOLUME (test code = MPV) 11.7 fL 7.0-9.0 H NEUTROPHIL % (test code = NT%) 85.4 % 56.0-77.0 H IMMATURE GRANULOCYTE % (test code = IG%) 0.4 % 0.0-2.0 N LYMPHOCYTE % (test code = LY%) 6.5 % 14.0-32.0 L MONOCYTE % (test code = MO%) 7.5 % 4.8-9.0 N EOSINOPHIL % (test code = EO%) 0.1 % 0.3-3.7 L BASOPHIL % (test code = BA%) 0.1 % 0.0-2.0 N NUCLEATED RBC % (test code = NRBC%) 0.0 % 0-0 N NEUTROPHIL # (test code = NT#) 12.84 x10 3/uL 2.0-7.6 H IMMATURE GRANULOCYTE # (test code = IG#) 0.06 x10 3/uL 0.00-0.03 H LYMPHOCYTE # (test code = LY#) 0.97 x10 3/uL 1.0-3.8 L MONOCYTE # (test code = MO#) 1.12 x10 3/uL 0.1-0.8 H EOSINOPHIL # (test code = EO#) 0.02 x10 3/uL 0.0-0.2 N BASOPHIL # (test code = BA#) 0.01 x10 3/uL 0.0-0.2 N NUCLEATED RBC # (test code = NRBC#) 0.00 x10 3/uL 0.0-0.1 N MANUAL DIFF REQUIRED (test code = MDIFF) NO PLT [id number] 05:24:00* Test Item Value Reference Range Interpretation Comme nts PLATELET ESTIMATE (test code = PLTEST) 80-100 THOUSAND ADEQUATE PLATELET MORPHOLOGY (test code = PLTMORPH) LARGE PLATELETS LACTIC [id number] 05:20:00* Test Item Value Reference Range Interpretation Comme nts LACTIC ACID (test code = LACT) 1.2 mmol/L 0.4-1.9 N BASIC METABOLIC [id number] 05:20:00* Test Item Value Reference Range Interpretation Comme nts SODIUM (test code = NA) 144 mEq/L 134-147 N POTASSIUM (test code = K) 3.3 mEq/L 3.4-5.0 L CHLORIDE (test code = CL) 104 mEq/L 100-108 N CARBON DIOXIDE (test code = CO2) 16 mEq/L 21-33 L ANION GAP (test code = GAP) 27 0-20 H GLUCOSE (test code = GLU) 167 mg/dL 70-110 H BLOOD UREA NITROGEN (test code = BUN) 14 mg/dL 7-18 GLOMERULAR FILTRATION RATE (test code = GFR) 44.2 70-80 L Units of measure = ml/min/1.73 m2 CREATININE (test code = CREAT) 1.2 mg/dL 0.6-1.3 CALCIUM (test code = CA) 7.4 mg/dL 8.0-10.5 L [id number] 05:20:00* Test Item Value Reference Range Interpretation Comme nts PHOSPHOROUS (test code = PHOS) 2.9 MG/DL 2.5-4.9 N [id number] 05:20:00* Test Item Value Reference Range Interpretation Comme nts MAGNESIUM (test code = MAG) 2.30 mg/dL 1.8-2.4 [id number] 05:20:00* Test Item Value Reference Range Interpretation Comme nts VANCOMYCIN (test code = VANCO) 12.8 mcg/mL CBC W/AUTO [id number] 05:01:00* Test Item Value Reference Range Interpretation Comme nts WHITE BLOOD CELL (test code = WBC) 15.02 x10 3/uL 4.5-11.0 H RED BLOOD CELL (test code = RBC) 2.79 x10 6/uL 3.54-5.02 L HEMOGLOBIN (test code = HGB) 8.4 g/dL 11.0-15.0 L HEMATOCRIT (test code = HCT) 26.0 % 33.0-45.0 L MEAN CELL VOLUME (test code = MCV) 93.2 fL 81.0-99.0 MEAN CELL HGB (test code = MCH) 30.1 pg 27.0-33.0 N MEAN CELL HGB CONCETRATION (test code = MCHC) 32.3 g/dL 33.0-37.0 L RED CELL DISTRIBUTION WIDTH CV (test code = RDW) 14.1 % 11.5-14.5 N RED CELL DISTRIBUTION WIDTH SD (test code = RDW-SD) 47.6 fL 37.0-54.0 N PLATELET COUNT (test code = PLT) 99 x10 3/uL 150-400 L MEAN PLATELET VOLUME (test code = MPV) 11.7 fL 7.0-9.0 H NEUTROPHIL % (test code = NT%) 85.4 % 56.0-77.0 H IMMATURE GRANULOCYTE % (test code = IG%) 0.4 % 0.0-2.0 N LYMPHOCYTE % (test code = LY%) 6.5 % 14.0-32.0 L MONOCYTE % (test code = MO%) 7.5 % 4.8-9.0 N EOSINOPHIL % (test code = EO%) 0.1 % 0.3-3.7 L BASOPHIL % (test code = BA%) 0.1 % 0.0-2.0 N NUCLEATED RBC % (test code = NRBC%) 0.0 % 0-0 N NEUTROPHIL # (test code = NT#) 12.84 x10 3/uL 2.0-7.6 H IMMATURE GRANULOCYTE # (test code = IG#) 0.06 x10 3/uL 0.00-0.03 H LYMPHOCYTE # (test code = LY#) 0.97 x10 3/uL 1.0-3.8 L MONOCYTE # (test code = MO#) 1.12 x10 3/uL 0.1-0.8 H EOSINOPHIL # (test code = EO#) 0.02 x10 3/uL 0.0-0.2 N BASOPHIL # (test code = BA#) 0.01 x10 3/uL 0.0-0.2 N NUCLEATED RBC # (test code = NRBC#) 0.00 x10 3/uL 0.0-0.1 N MANUAL DIFF REQUIRED (test code = MDIFF) NO PLT [id number] 05:01:00* Test Item Value Reference Range Interpretation Comme nts PLATELET ESTIMATE (test code = PLTEST) THOUSAND ADEQUATE CBC W/AUTO [id number] 05:01:00* Test Item Value Reference Range Interpretation Comme nts WHITE BLOOD CELL (test code = WBC) 15.02 x10 3/uL 4.5-11.0 H RED BLOOD CELL (test code = RBC) 2.79 x10 6/uL 3.54-5.02 L HEMOGLOBIN (test code = HGB) 8.4 g/dL 11.0-15.0 L HEMATOCRIT (test code = HCT) 26.0 % 33.0-45.0 L MEAN CELL VOLUME (test code = MCV) 93.2 fL 81.0-99.0 MEAN CELL HGB (test code = MCH) 30.1 pg 27.0-33.0 N MEAN CELL HGB CONCETRATION (test code = MCHC) 32.3 g/dL 33.0-37.0 L RED CELL DISTRIBUTION WIDTH CV (test code = RDW) 14.1 % 11.5-14.5 N RED CELL DISTRIBUTION WIDTH SD (test code = RDW-SD) 47.6 fL 37.0-54.0 N PLATELET COUNT (test code = PLT) 99 x10 3/uL 150-400 L MEAN PLATELET VOLUME (test code = MPV) 11.7 fL 7.0-9.0 H NEUTROPHIL % (test code = NT%) 85.4 % 56.0-77.0 H IMMATURE GRANULOCYTE % (test code = IG%) 0.4 % 0.0-2.0 N LYMPHOCYTE % (test code = LY%) 6.5 % 14.0-32.0 L MONOCYTE % (test code = MO%) 7.5 % 4.8-9.0 N EOSINOPHIL % (test code = EO%) 0.1 % 0.3-3.7 L BASOPHIL % (test code = BA%) 0.1 % 0.0-2.0 N NUCLEATED RBC % (test code = NRBC%) 0.0 % 0-0 N NEUTROPHIL # (test code = NT#) 12.84 x10 3/uL 2.0-7.6 H IMMATURE GRANULOCYTE # (test code = IG#) 0.06 x10 3/uL 0.00-0.03 H LYMPHOCYTE # (test code = LY#) 0.97 x10 3/uL 1.0-3.8 L MONOCYTE # (test code = MO#) 1.12 x10 3/uL 0.1-0.8 H EOSINOPHIL # (test code = EO#) 0.02 x10 3/uL 0.0-0.2 N BASOPHIL # (test code = BA#) 0.01 x10 3/uL 0.0-0.2 N NUCLEATED RBC # (test code = NRBC#) 0.00 x10 3/uL 0.0-0.1 N MANUAL DIFF REQUIRED (test code = MDIFF) NO PLT [id number] 05:01:00* Test Item Value Reference Range Interpretation Comme nts PLATELET ESTIMATE (test code = PLTEST) THOUSAND ADEQUATE LACTIC ACID [id number] 18:47:00* Test Item Value Reference Range Interpretation Comme nts LACTIC ACID REPEAT (test cod e = LACTR) 1.6 mmol/l 0.4-1.9 N [id number] 18:16:00* Test Item Value Reference Range Interpretation Comme nts GLUBED (test code = GLUBED) 129 MG/DL 70-110 H Performed by cer tified egg breaking machine operator at [facility] B-TYPE NATRIURETIC [id number] 16:58:00* Test Item Value Reference Range Interpretation Comme nts B-TYPE NATRIURETIC PEPTIDE ( test code = BNP) 1269.2 PG/ML 0-100 H LACTIC [id number] 15:47:00* Test Item Value Reference Range Interpretation Comme nts LACTIC ACID (test code = LACT) 2.4 mmol/L 0.4-1.9 H BASIC METABOLIC [id number] 15:44:00* Test Item Value Reference Range Interpretation Comme nts SODIUM (test code = NA) 143 mEq/L 134-147 N POTASSIUM (test code = K) 3.4 mEq/L 3.4-5.0 N CHLORIDE (test code = CL) 104 mEq/L 100-108 N CARBON DIOXIDE (test code = CO2) 23 mEq/L 21-33 ANION GAP (test code = GAP) 19 0-20 N GLUCOSE (test code = GLU) 139 mg/dL 70-110 H BLOOD UREA NITROGEN (test code = BUN) 5 mg/dL 7-18 L GLOMERULAR FILTRATION RATE (test code = GFR) 98.3 70-80 H Units of measure = ml/min/1.73 m2 CREATININE (test code = CREAT) 0.6 mg/dL 0.6-1.3 CALCIUM (test code = CA) 7.1 mg/dL 8.0-10.5 L [id number] 15:44:00* Test Item Value Reference Range Interpretation Comme nts PHOSPHOROUS (test code = PHOS) 2.6 MG/DL 2.5-4.9 [id number] 15:44:00* Test Item Value Reference Range Interpretation Comme nts MAGNESIUM (test code = MAG) 1.60 mg/dL 1.8-2.4 L CBC W/AUTO [id number] 15:26:00* Test Item Value Reference Range Interpretation Comme nts WHITE BLOOD CELL (test code = WBC) 18.06 x10 3/uL 4.5-11.0 H RED BLOOD CELL (test code = RBC) 3.10 x10 6/uL 3.54-5.02 L HEMOGLOBIN (test code = HGB) 9.5 g/dL 11.0-15.0 L HEMATOCRIT (test code = HCT) 27.6 % 33.0-45.0 L MEAN CELL VOLUME (test code = MCV) 89.0 fL 81.0-99.0 N MEAN CELL HGB (test code = MCH) 30.6 pg 27.0-33.0 N MEAN CELL HGB CONCETRATION (test code = MCHC) 34.4 g/dL 33.0-37.0 N RED CELL DISTRIBUTION WIDTH CV (test code = RDW) 13.5 % 11.5-14.5 N RED CELL DISTRIBUTION WIDTH SD (test code = RDW-SD) 43.9 fL 37.0-54.0 N PLATELET COUNT (test code = PLT) 131 x10 3/uL 150-400 L MEAN PLATELET VOLUME (test code = MPV) 11.4 fL 7.0-9.0 H NEUTROPHIL % (test code = NT%) 84.8 % 56.0-77.0 H IMMATURE GRANULOCYTE % (test code = IG%) 0.9 % 0.0-2.0 N LYMPHOCYTE % (test code = LY%) 4.9 % 14.0-32.0 L MONOCYTE % (test code = MO%) 9.3 % 4.8-9.0 H EOSINOPHIL % (test code = EO%) 0.0 % 0.3-3.7 L BASOPHIL % (test code = BA%) 0.1 % 0.0-2.0 N NUCLEATED RBC % (test code = NRBC%) 0.2 % 0-0 H NEUTROPHIL # (test code = NT#) 15.30 x10 3/uL 2.0-7.6 H IMMATURE GRANULOCYTE # (test code = IG#) 0.17 x10 3/uL 0.00-0.03 H LYMPHOCYTE # (test code = LY#) 0.89 x10 3/uL 1.0-3.8 L MONOCYTE # (test code = MO#) 1.68 x10 3/uL 0.1-0.8 H EOSINOPHIL # (test code = EO#) 0.00 x10 3/uL 0.0-0.2 N BASOPHIL # (test code = BA#) 0.02 x10 3/uL 0.0-0.2 N NUCLEATED RBC # (test code = NRBC#) 0.04 x10 3/uL 0.0-0.1 N MANUAL DIFF REQUIRED (test code = MDIFF) NO [id number] 12:23:00* Test Item Value Reference Range Interpretation Comme nts GLUBED (test code = GLUBED) 158 MG/DL 70-110 H Performed by cer tified egg breaking machine operator at [facility] CBC W/AUTO [id number] 10:37:00* Test Item Value Reference Range Interpretation Comme nts WHITE BLOOD CELL (test code = WBC) 19.78 x10 3/uL 4.5-11.0 H RED BLOOD CELL (test code = RBC) 3.17 x10 6/uL 3.54-5.02 L HEMOGLOBIN (test code = HGB) 9.7 g/dL 11.0-15.0 L HEMATOCRIT (test code = HCT) 28.6 % 33.0-45.0 L MEAN CELL VOLUME (test code = MCV) 90.2 fL 81.0-99.0 N MEAN CELL HGB (test code = MCH) 30.6 pg 27.0-33.0 N MEAN CELL HGB CONCETRATION (test code = MCHC) 33.9 g/dL 33.0-37.0 N RED CELL DISTRIBUTION WIDTH CV (test code = RDW) 13.6 % 11.5-14.5 N RED CELL DISTRIBUTION WIDTH SD (test code = RDW-SD) 44.3 fL 37.0-54.0 N PLATELET COUNT (test code = PLT) 156 x10 3/uL 150-400 N MEAN PLATELET VOLUME (test code = MPV) 11.7 fL 7.0-9.0 H MANUAL DIFF REQUIRED (test code = MDIFF) YES WBC [id number] 10:37:00* Test Item Value Reference Range Interpretation Comme nts SEGMENTED NEUTROPHILS (test code = SEG) 87 % 37-69 H LYMPHOCYTE (test code = LYMPH) 4 % 23-55 L MONOCYTE (test code = MON) 8 % 0-10 N MYELOCYTE (test code = MYELO) 1 % 0.0-0.0 H NUCLEATED RED BLOOD CELL (test code = NRBC) 2 % POLYCHROMASIA (test code = POLC) SLIGHT ANISOCYTOSIS (test code = ANISO) NORMAL PLATELET ESTIMATE (test code = PLTEST) Adequate THOUSAND ADEQUATE PLATELET MORPHOLOGY (test code = PLTMORPH) LARGE PLATELETS LARGE PLTS SEEN CBC W/AUTO [id number] 10:26:00* Test Item Value Reference Range Interpretation Comme nts WHITE BLOOD CELL (test code = WBC) 19.78 x10 3/uL 4.5-11.0 H RED BLOOD CELL (test code = RBC) 3.17 x10 6/uL 3.54-5.02 L HEMOGLOBIN (test code = HGB) 9.7 g/dL 11.0-15.0 L HEMATOCRIT (test code = HCT) 28.6 % 33.0-45.0 L MEAN CELL VOLUME (test code = MCV) 90.2 fL 81.0-99.0 N MEAN CELL HGB (test code = MCH) 30.6 pg 27.0-33.0 N MEAN CELL HGB CONCETRATION (test code = MCHC) 33.9 g/dL 33.0-37.0 N RED CELL DISTRIBUTION WIDTH CV (test code = RDW) 13.6 % 11.5-14.5 N RED CELL DISTRIBUTION WIDTH SD (test code = RDW-SD) 44.3 fL 37.0-54.0 N PLATELET COUNT (test code = PLT) 156 x10 3/uL 150-400 N MEAN PLATELET VOLUME (test code = MPV) 11.7 fL 7.0-9.0 H MANUAL DIFF REQUIRED (test code = MDIFF) YES WBC [id number] 10:26:00* Test Item Value Reference Range Interpretation Comme nts ANISOCYTOSIS (test code = ANISO) PLATELET ESTIMATE (test code = PLTEST) THOUSAND ADEQUATE CBC W/AUTO [id number] 10:26:00* Test Item Value Reference Range Interpretation Comme nts WHITE BLOOD CELL (test code = WBC) 19.78 x10 3/uL 4.5-11.0 H RED BLOOD CELL (test code = RBC) 3.17 x10 6/uL 3.54-5.02 L HEMOGLOBIN (test code = HGB) 9.7 g/dL 11.0-15.0 L HEMATOCRIT (test code = HCT) 28.6 % 33.0-45.0 L MEAN CELL VOLUME (test code = MCV) 90.2 fL 81.0-99.0 N MEAN CELL HGB (test code = MCH) 30.6 pg 27.0-33.0 N MEAN CELL HGB CONCETRATION (test code = MCHC) 33.9 g/dL 33.0-37.0 N RED CELL DISTRIBUTION WIDTH CV (test code = RDW) 13.6 % 11.5-14.5 N RED CELL DISTRIBUTION WIDTH SD (test code = RDW-SD) 44.3 fL 37.0-54.0 N PLATELET COUNT (test code = PLT) 156 x10 3/uL 150-400 N MEAN PLATELET VOLUME (test code = MPV) 11.7 fL 7.0-9.0 H MANUAL DIFF REQUIRED (test code = MDIFF) YES WBC [id number] 10:26:00* Test Item Value Reference Range Interpretation Comme [facility] ANISOCYTOSIS (test code = ANISO) PLATELET ESTIMATE (test code = PLTEST) THOUSAND ADEQUATE ARTERIAL BLOOD [id number] 09:58:00* Test Item Value Reference Range Interpretation Comme nts ARTERIAL BLOOD GAS PH (test code = PHA) 7.489 7.35-7.45 H ARTERIAL BLOOD GAS PCO2 (mekhi t code = PCO2A) 25.6 mmHg 35-45 L ARTERIAL BLOOD GAS PO2 (test code = PO2A) 67 mmHg 80-100 L BICARBONATE TOTAL HCO3 (test code = HCO3) 19.6 mmol/L 22.0-26.0 L BASE EXCESS (test code = JACOB) -4.0 mmol/L -4-4 N ABG O2 SATURATION (test code = SATA) 95 % 90-100 N ABG DELIVERY (test code = CABRERA) Cannula ABG TEMPERATURE (test code = TEMPA) 98.0 F ABG SITE (test code = SITEA) L Rad TCO2 ARTERIAL (test code = TCO2A) 20 LACTIC ACID [id number] 09:46:00* Test Item Value Reference Range Interpretation Comme nts LACTIC ACID REPEAT (test cod e = LACTR) 2.0 mmol/l 0.4-1.9 H ACUTE HEPATITIS [id number] 08:08:00* Test Item Value Reference Range Interpretation Comme nts AB HEPATITIS A IGM (test code = HAVMAB) NON REACTIVE INDEX NON REACT. AG HEPATITIS B SURFACE (test code = HBSAG) NON REACTIVE INDEX NonReactive AB HEPATITIS B CORE IGM (test code = HBCMAB) NON REACTIVE INDEX NON REACT. AB HEPATITIS C (test code = HCVAB) NON REACTIVE INDEX NON REACT. COMMENTS: At start of hemodialysisAB HEPATITIS B [id number] 08:08:00* Test Item Value Reference Range Interpretation Comme nts AB HEPATITIS B SURFACE (test code = HBSAB) 688.1 mIU/mL Immunity>9.9 Status of Immuni ty Anti-HBs Level Incons istent with Immunity 0.0 - 9.9Consistent with Immunity >9.9Performed At: [facility] [address] [id number] Matty Dye MD Ph:[phone] COMMENTS: At start of [id number] 08:07:00* Test Item Value Reference Range Interpretation Comme nts GLUBED (test code = GLUBED) 191 MG/DL 70-110 H Performed by cer tified egg breaking machine operator at [facility] [id number] 08:07:00* Test Item Value Reference Range Interpretation Comme nts GLUBED (test code = GLUBED) > 600 MG/DL 70-110 H Performed by cer tified egg breaking machine operator at [facility] - XR CHEST 1 [id number] 07:52:00FAX: Rabia Castro MD [phone] [place]: St: ADM FAX: Joel Falk [phone] Name: MAC AGUSTIN [facility] [place] : 1945 Age/S: 74/F [address] [place] [address] Unit #: [id number] Loc: [address] [address] Phys: Rabia Aguilar MD Acct: [id number] Dis Date: Status: ADM IN PHONE #: [phone] Exam Date: 09/27/2019 0748 FAX #: [phone] Reason: Hypoxemia EXAMS: CPT CODE: [id number] XR CHEST 1 V [id number] Study: - XR CHEST 1 V 09/27/2019 7:19 AM Patient Name: MAC AGUSTIN MR: [id number] : 1945; Age: 74 years y/o Female Ordering Physician: Rabia Aguilar MD Clinical Indication: Hypoxemia Comparison: September 26, 2019 x-ray FINDINGS LUNGS: The hypoinflated lungs areclear of consolidation, pleural effusion, and pneumothorax. HEART AND MEDIASTINUM: Normal size heart. LINES: The life support lines and tubes appear unchanged. OSSEOUS STRUCTURES: Mild spinal degenerative change without fracture, dislocation, or focal osseous lesion. OTHER: None. IMPRESSION: No acute abnormality as above discussed. SL: [id number] at 0752 Reported and signed by: Gian Alvarenga M.D. CC: Rabia Aguilar MD; Joel Myers MD Technologist: RT Martin(R) Trnscrd Date/Time/By: 09/27/2019 (075) : By: [email or web address] Orig Print D/T: S: 09/27/2019 (0756) PAGE 1 Signed ReportBASIC METABOLIC PANEL 2019-09-27 07:33:00* Test Item Value Reference Range Interpretation Comme nts SODIUM (test code = NA) 143 mEq/L 134-147 N POTASSIUM (test code = K) 3.5 mEq/L 3.4-5.0 N CHLORIDE (test code = CL) 102 mEq/L 100-108 N CARBON DIOXIDE (test code = CO2) 15 mEq/L 21-33 L ANION GAP (test code = GAP) 30 0-20 H GLUCOSE (test code = GLU) 137 mg/dL 70-110 H BLOOD UREA NITROGEN (test code = BUN) 16 mg/dL 7-18 N GLOMERULAR FILTRATION RATE (test code = GFR) 44.2 70-80 L Units of measure = ml/min/1.73 m2 CREATININE (test code = CREAT) 1.2 mg/dL 0.6-1.3 N CALCIUM (test code = CA) 6.7 mg/dL 8.0-10.5 L [id number] 07:33:00* Test Item Value Reference Range Interpretation Comme nts PHOSPHOROUS (test code = PHOS) 3.9 MG/DL 2.5-4.9 [id number] 07:33:00* Test Item Value Reference Range Interpretation Comme nts MAGNESIUM (test code = MAG) 2.50 mg/dL 1.8-2.4 H CALCIUM [id number] 07:33:00* Test Item Value Reference Range Interpretation Comme nts CALCIUM IONIZED (test code = DMITRY) 0.99 MMOL/L 1.12-1.32 L BASIC METABOLIC [id number] 07:25:00* Test Item Value Reference Range Interpretation Comme nts SODIUM (test code = NA) mEq/L 134-147 POTASSIUM (test code = K) mEq/L 3.4-5.0 CHLORIDE (test code = CL) mEq/L 100-108 CARBON DIOXIDE (test code = CO2) mEq/L 21-33 ANION GAP (test code = GAP) 0-20 GLUCOSE (test code = GLU) mg/dL 70-110 BLOOD UREA NITROGEN (test code = BUN) mg/dL 7-18 GLOMERULAR FILTRATION RATE ( test code = GFR) 70-80 CREATININE (test code = CREAT) mg/dL 0.6-1.3 CALCIUM (test code = CA) mg/dL 8.0-10.5 [id number] 07:25:00* Test Item Value Reference Range Interpretation Comme nts PHOSPHOROUS (test code = PHOS) MG/DL 2.5-4.9 [id number] 07:25:00* Test Item Value Reference Range Interpretation Comme nts MAGNESIUM (test code = MAG) mg/dL 1.8-2.4 CALCIUM [id number] 07:25:00* Test Item Value Reference Range Interpretation Comme nts CALCIUM IONIZED (test code = DMITRY) 0.99 MMOL/L 1.12-1.32 L LACTIC [id number] 07:14:00* Test Item Value Reference Range Interpretation Comme nts LACTIC ACID (test code = LACT) 3.5 mmol/L 0.4-1.9 H CBC W/AUTO [id number] 06:52:00* Test Item Value Reference Range Interpretation Comme nts WHITE BLOOD CELL (test code = WBC) 19.78 x10 3/uL 4.5-11.0 H RED BLOOD CELL (test code = RBC) 3.17 x10 6/uL 3.54-5.02 L HEMOGLOBIN (test code = HGB) 9.7 g/dL 11.0-15.0 L HEMATOCRIT (test code = HCT) 28.6 % 33.0-45.0 L MEAN CELL VOLUME (test code = MCV) 90.2 fL 81.0-99.0 N MEAN CELL HGB (test code = MCH) 30.6 pg 27.0-33.0 N MEAN CELL HGB CONCETRATION (test code = MCHC) 33.9 g/dL 33.0-37.0 N RED CELL DISTRIBUTION WIDTH CV (test code = RDW) 13.6 % 11.5-14.5 N RED CELL DISTRIBUTION WIDTH SD (test code = RDW-SD) 44.3 fL 37.0-54.0 N PLATELET COUNT (test code = PLT) 156 x10 3/uL 150-400 N MEAN PLATELET VOLUME (test code = MPV) 11.7 fL 7.0-9.0 H NEUTROPHIL % (test code = NT%) % 56.0-77.0 LYMPHOCYTE % (test code = LY%) % 14.0-32.0 NEUTROPHIL # (test code = NT#) x10 3/uL 2.0-7.6 LYMPHOCYTE # (test code = LY#) x10 3/uL 1.0-3.8 MANUAL DIFF REQUIRED (test code = MDIFF) [id number] 05:55:00* Test Item Value Reference Range Interpretation Comme nts GLUBED (test code = GLUBED) 146 MG/DL 70-110 H Performed by cer tified egg breaking machine operator at [facility] BASIC METABOLIC [id number] 03:07:00* Test Item Value Reference Range Interpretation Comme nts SODIUM (test code = NA) 143 mEq/L 134-147 N POTASSIUM (test code = K) 3.6 mEq/L 3.4-5.0 N CHLORIDE (test code = CL) 101 mEq/L 100-108 N CARBON DIOXIDE (test code = CO2) 20 mEq/L 21-33 L ANION GAP (test code = GAP) 26 0-20 H GLUCOSE (test code = GLU) 119 mg/dL 70-110 H BLOOD UREA NITROGEN (test code = BUN) 13 mg/dL 7-18 GLOMERULAR FILTRATION RATE (test code = GFR) 48.8 70-80 L Units of measure = ml/min/1.73 m2 CREATININE (test code = CREAT) 1.1 mg/dL 0.6-1.3 N CALCIUM (test code = CA) 6.9 mg/dL 8.0-10.5 L [id number] 03:07:00* Test Item Value Reference Range Interpretation Comme nts PHOSPHOROUS (test code = PHOS) 2.3 MG/DL 2.5-4.9 L [id number] 03:07:00* Test Item Value Reference Range Interpretation Comme nts MAGNESIUM (test code = MAG) 2.50 mg/dL 1.8-2.4 H CALCIUM [id number] 03:07:00* Test Item Value Reference Range Interpretation Comme nts CALCIUM IONIZED (test code = DMITRY) 0.96 MMOL/L 1.12-1.32 L ARTERIAL BLOOD [id number] 02:42:00* Test Item Value Reference Range Interpretation Comme nts ARTERIAL BLOOD GAS PH (test code = PHA) 7.408 7.35-7.45 N ARTERIAL BLOOD GAS PCO2 (mekhi t code = PCO2A) 24.8 mmHg 35-45 LL ARTERIAL BLOOD GAS PO2 (test code = PO2A) 55 mmHg 80-100 L BICARBONATE TOTAL HCO3 (test code = HCO3) 15.5 mmol/L 22.0-26.0 L BASE EXCESS (test code = JACOB) -9.0 mmol/L -4-4 L ABG O2 SATURATION (test code = SATA) 88 % 90-100 L ABG DELIVERY (test code = CABRERA) Cannula ABG TEMPERATURE (test code = TEMPA) 38.0 F ABG SITE (test code = SITEA) L Rad TCO2 ARTERIAL (test code = TCO2A) 16 CBC W/AUTO [id number] 02:24:00* Test Item Value Reference Range Interpretation Comme nts WHITE BLOOD CELL (test code = WBC) 21.56 x10 3/uL 4.5-11.0 H RED BLOOD CELL (test code = RBC) 3.14 x10 6/uL 3.54-5.02 L HEMOGLOBIN (test code = HGB) 9.5 g/dL 11.0-15.0 L HEMATOCRIT (test code = HCT) 28.3 % 33.0-45.0 L MEAN CELL VOLUME (test code = MCV) 90.1 fL 81.0-99.0 N MEAN CELL HGB (test code = MCH) 30.3 pg 27.0-33.0 N MEAN CELL HGB CONCETRATION (test code = MCHC) 33.6 g/dL 33.0-37.0 N RED CELL DISTRIBUTION WIDTH CV (test code = RDW) 13.4 % 11.5-14.5 N RED CELL DISTRIBUTION WIDTH SD (test code = RDW-SD) 43.8 fL 37.0-54.0 N PLATELET COUNT (test code = PLT) 159 x10 3/uL 150-400 N MEAN PLATELET VOLUME (test code = MPV) 11.7 fL 7.0-9.0 H NEUTROPHIL % (test code = NT%) 88.6 % 56.0-77.0 H IMMATURE GRANULOCYTE % (test code = IG%) 0.8 % 0.0-2.0 N LYMPHOCYTE % (test code = LY%) 2.8 % 14.0-32.0 L MONOCYTE % (test code = MO%) 6.5 % 4.8-9.0 N EOSINOPHIL % (test code = EO%) 1.1 % 0.3-3.7 N BASOPHIL % (test code = BA%) 0.2 % 0.0-2.0 N NUCLEATED RBC % (test code = NRBC%) 0.0 % 0-0 N NEUTROPHIL # (test code = NT#) 19.09 x10 3/uL 2.0-7.6 H IMMATURE GRANULOCYTE # (test code = IG#) 0.18 x10 3/uL 0.00-0.03 H LYMPHOCYTE # (test code = LY#) 0.61 x10 3/uL 1.0-3.8 L MONOCYTE # (test code = MO#) 1.41 x10 3/uL 0.1-0.8 H EOSINOPHIL # (test code = EO#) 0.23 x10 3/uL 0.0-0.2 H BASOPHIL # (test code = BA#) 0.04 x10 3/uL 0.0-0.2 N NUCLEATED RBC # (test code = NRBC#) 0.00 x10 3/uL 0.0-0.1 N MANUAL DIFF REQUIRED (test code = MDIFF) NO SLIDE REVIEW ED, CONSISTENT WITH AUTO DIFF. BASIC METABOLIC [id number] 02:14:00* Test Item Value Reference Range Interpretation Comme nts SODIUM (test code = NA) mEq/L 134-147 POTASSIUM (test code = K) mEq/L 3.4-5.0 CHLORIDE (test code = CL) mEq/L 100-108 CARBON DIOXIDE (test code = CO2) mEq/L 21-33 ANION GAP (test code = GAP) 0-20 GLUCOSE (test code = GLU) mg/dL 70-110 BLOOD UREA NITROGEN (test code = BUN) mg/dL 7-18 GLOMERULAR FILTRATION RATE ( test code = GFR) 70-80 CREATININE (test code = CREAT) mg/dL 0.6-1.3 CALCIUM (test code = CA) mg/dL 8.0-10.5 [id number] 02:14:00* Test Item Value Reference Range Interpretation Comme nts PHOSPHOROUS (test code = PHOS) MG/DL 2.5-4.9 [id number] 02:14:00* Test Item Value Reference Range Interpretation Comme nts MAGNESIUM (test code = MAG) mg/dL 1.8-2.4 CALCIUM [id number] 02:14:00* Test Item Value Reference Range Interpretation Comme nts CALCIUM IONIZED (test code = DMITRY) 0.96 MMOL/L 1.12-1.32 L LACTIC ACID 2ND [id number] 02:01:00* Test Item Value Reference Range Interpretation Comme nts LACTIC ACID 2ND REPEAT (test code = LACT2) 6.2 mmol/L 0.4-1.9 HH CBC W/AUTO [id number] 01:51:00* Test Item Value Reference Range Interpretation Comme nts WHITE BLOOD CELL (test code = WBC) 21.56 x10 3/uL 4.5-11.0 H RED BLOOD CELL (test code = RBC) 3.14 x10 6/uL 3.54-5.02 L HEMOGLOBIN (test code = HGB) 9.5 g/dL 11.0-15.0 L HEMATOCRIT (test code = HCT) 28.3 % 33.0-45.0 L MEAN CELL VOLUME (test code = MCV) 90.1 fL 81.0-99.0 N MEAN CELL HGB (test code = MCH) 30.3 pg 27.0-33.0 N MEAN CELL HGB CONCETRATION (test code = MCHC) 33.6 g/dL 33.0-37.0 N RED CELL DISTRIBUTION WIDTH CV (test code = RDW) 13.4 % 11.5-14.5 N RED CELL DISTRIBUTION WIDTH SD (test code = RDW-SD) 43.8 fL 37.0-54.0 N PLATELET COUNT (test code = PLT) 159 x10 3/uL 150-400 N MEAN PLATELET VOLUME (test code = MPV) 11.7 fL 7.0-9.0 H NEUTROPHIL % (test code = NT%) % 56.0-77.0 LYMPHOCYTE % (test code = LY%) % 14.0-32.0 NEUTROPHIL # (test code = NT#) x10 3/uL 2.0-7.6 LYMPHOCYTE # (test code = LY#) x10 3/uL 1.0-3.8 MANUAL DIFF REQUIRED (test code = MDIFF) [id number] 00:42:00* Test Item Value Reference Range Interpretation Comme nts GLUBED (test code = GLUBED) 117 MG/DL 70-110 H Performed by cer tified egg breaking machine operator at [facility] LIPOPROTEIN [id number] 23:01:00* Test Item Value Reference Range Interpretation Comme nts LIPOPROTEIN LDL (test code = LDL) 67 mg/dL 0-100 N <100 [id number] 0-129 NEAR OPTIMAL/ABOVE [id number] HIGH>JM=351 VERY HIGH*Guidelines provided by the National Cholesterol EducationProgram Adult Treatment Panel III BASIC METABOLIC [id number] 22:46:00* Test Item Value Reference Range Interpretation Comme nts SODIUM (test code = NA) 142 mEq/L 134-147 N POTASSIUM (test code = K) 3.7 mEq/L 3.4-5.0 N CHLORIDE (test code = CL) 101 mEq/L 100-108 N CARBON DIOXIDE (test code = CO2) 21 mEq/L 21-33 N ANION GAP (test code = GAP) 24 0-20 H GLUCOSE (test code = GLU) 103 mg/dL 70-110 N BLOOD UREA NITROGEN (test code = BUN) 10 mg/dL 7-18 GLOMERULAR FILTRATION RATE (test code = GFR) 54.5 70-80 L Units of measure = ml/min/1.73 m2 CREATININE (test code = CREAT) 1.0 mg/dL 0.6-1.3 N CALCIUM (test code = CA) 7.0 mg/dL 8.0-10.5 L [id number] 22:46:00* Test Item Value Reference Range Interpretation Comme nts PHOSPHOROUS (test code = PHOS) 1.6 MG/DL 2.5-4.9 L [id number] 22:46:00* Test Item Value Reference Range Interpretation Comme nts MAGNESIUM (test code = MAG) 2.40 mg/dL 1.8-2.4 [id number] 22:46:00* Test Item Value Reference Range Interpretation Comme nts TROPONIN-I (test code = TROPI) 0.284 ng/mL 0.000-0.045 HH Negative: <= 0.0 45 Positive: >= 0.046 Correlation with serial results, other cardiac markers andclinical findings is necessary to determine the clinicalsignificance of this result. Results using different methodologies should not be comparedto one another as quantitative results may vary by method. LACTIC ACID [id number] 22:44:00* Test Item Value Reference Range Interpretation Comme nts LACTIC ACID REPEAT (test cod e = LACTR) 7.8 mmol/l 0.4-1.9 HH CALCIUM [id number] 22:38:00* Test Item Value Reference Range Interpretation Comme nts CALCIUM IONIZED (test code = DMITRY) 0.96 MMOL/L 1.12-1.32 L [id number] 18:50:00* Test Item Value Reference Range Interpretation Comme nts GLUBED (test code = GLUBED) 126 MG/DL 70-110 H Performed by cer tified egg breaking machine operator at [facility] LACTIC [id number] 17:54:00* Test Item Value Reference Range Interpretation Comme nts LACTIC ACID (test code = LACT) 9.2 mmol/L 0.4-1.9 BASIC METABOLIC [id number] 17:54:00* Test Item Value Reference Range Interpretation Comme nts SODIUM (test code = NA) 141 mEq/L 134-147 N POTASSIUM (test code = K) 3.9 mEq/L 3.4-5.0 N CHLORIDE (test code = CL) 100 mEq/L 100-108 N CARBON DIOXIDE (test code = CO2) 25 mEq/L 21-33 ANION GAP (test code = GAP) 20 0-20 N GLUCOSE (test code = GLU) 137 mg/dL 70-110 H BLOOD UREA NITROGEN (test code = BUN) 14 mg/dL 7-18 GLOMERULAR FILTRATION RATE (test code = GFR) 48.8 70-80 L Units of measure = ml/min/1.73 m2 CREATININE (test code = CREAT) 1.1 mg/dL 0.6-1.3 CALCIUM (test code = CA) 7.6 mg/dL 8.0-10.5 L [id number] 17:54:00* Test Item Value Reference Range Interpretation Comme nts PHOSPHOROUS (test code = PHOS) 1.2 MG/DL 2.5-4.9 L [id number] 17:54:00* Test Item Value Reference Range Interpretation Comme nts MAGNESIUM (test code = MAG) 1.50 mg/dL 1.8-2.4 L CALCIUM [id number] 17:54:00* Test Item Value Reference Range Interpretation Comme nts CALCIUM IONIZED (test code = DMITRY) 0.98 MMOL/L 1.12-1.32 L BASIC METABOLIC [id number] 17:39:00* Test Item Value Reference Range Interpretation Comme nts SODIUM (test code = NA) mEq/L 134-147 POTASSIUM (test code = K) mEq/L 3.4-5.0 CHLORIDE (test code = CL) mEq/L 100-108 CARBON DIOXIDE (test code = CO2) mEq/L 21-33 ANION GAP (test code = GAP) 0-20 GLUCOSE (test code = GLU) mg/dL 70-110 BLOOD UREA NITROGEN (test code = BUN) mg/dL 7-18 GLOMERULAR FILTRATION RATE ( test code = GFR) 70-80 CREATININE (test code = CREAT) mg/dL 0.6-1.3 CALCIUM (test code = CA) mg/dL 8.0-10.5 [id number] 17:39:00* Test Item Value Reference Range Interpretation Comme nts PHOSPHOROUS (test code = PHOS) MG/DL 2.5-4.9 [id number] 17:39:00* Test Item Value Reference Range Interpretation Comme [facility] MAGNESIUM (test code = MAG) mg/dL 1.8-2.4 CALCIUM [id number] 17:39:00* Test Item Value Reference Range Interpretation Comme [facility] CALCIUM IONIZED (test code = DMITRY) 0.98 MMOL/L 1.12-1.32 L CBC W/AUTO [id number] 17:38:00* Test Item Value Reference Range Interpretation Comme nts WHITE BLOOD CELL (test code = WBC) 21.91 x10 3/uL 4.5-11.0 H RED BLOOD CELL (test code = RBC) 3.45 x10 6/uL 3.54-5.02 L HEMOGLOBIN (test code = HGB) 10.4 g/dL 11.0-15.0 L HEMATOCRIT (test code = HCT) 30.2 % 33.0-45.0 L MEAN CELL VOLUME (test code = MCV) 87.5 fL 81.0-99.0 MEAN CELL HGB (test code = MCH) 30.1 pg 27.0-33.0 N MEAN CELL HGB CONCETRATION (test code = MCHC) 34.4 g/dL 33.0-37.0 N RED CELL DISTRIBUTION WIDTH CV (test code = RDW) 13.3 % 11.5-14.5 N RED CELL DISTRIBUTION WIDTH SD (test code = RDW-SD) 42.8 fL 37.0-54.0 N PLATELET COUNT (test code = PLT) 214 x10 3/uL 150-400 N MEAN PLATELET VOLUME (test code = MPV) 12.2 fL 7.0-9.0 H NEUTROPHIL % (test code = NT%) 90.8 % 56.0-77.0 H IMMATURE GRANULOCYTE % (test code = IG%) 1.0 % 0.0-2.0 N LYMPHOCYTE % (test code = LY%) 4.8 % 14.0-32.0 L MONOCYTE % (test code = MO%) 3.2 % 4.8-9.0 L EOSINOPHIL % (test code = EO%) 0.1 % 0.3-3.7 L BASOPHIL % (test code = BA%) 0.1 % 0.0-2.0 N NUCLEATED RBC % (test code = NRBC%) 0.0 % 0-0 N NEUTROPHIL # (test code = NT#) 19.89 x10 3/uL 2.0-7.6 H IMMATURE GRANULOCYTE # (test code = IG#) 0.21 x10 3/uL 0.00-0.03 H LYMPHOCYTE # (test code = LY#) 1.06 x10 3/uL 1.0-3.8 N MONOCYTE # (test code = MO#) 0.70 x10 3/uL 0.1-0.8 N EOSINOPHIL # (test code = EO#) 0.02 x10 3/uL 0.0-0.2 N BASOPHIL # (test code = BA#) 0.03 x10 3/uL 0.0-0.2 N NUCLEATED RBC # (test code = NRBC#) 0.00 x10 3/uL 0.0-0.1 N MANUAL DIFF REQUIRED (test code = MDIFF) NO ARTERIAL BLOOD [id number] 17:34:00* Test Item Value Reference Range Interpretation Comme nts ARTERIAL BLOOD GAS PH (test code = PHA) 7.635 7.35-7.45 HH ARTERIAL BLOOD GAS PCO2 (mekhi t code = PCO2A) 23.8 mmHg 35-45 LL ARTERIAL BLOOD GAS PO2 (test code = PO2A) 52 mmHg 80-100 L BICARBONATE TOTAL HCO3 (test code = HCO3) 25.3 mmol/L 22.0-26.0 N BASE EXCESS (test code = JACOB) 4.0 mmol/L -4-4 N ABG O2 SATURATION (test code = SATA) 93 % 90-100 N ABG DELIVERY (test code = CABRERA) Cannula ABG TEMPERATURE (test code = TEMPA) 98.6 F ABG SITE (test code = SITEA) R Fem TCO2 ARTERIAL (test code = TCO2A) 26 ARTERIAL BLOOD [id number] 15:12:00* Test Item Value Reference Range Interpretation Comme nts ARTERIAL BLOOD GAS PH (test code = PHA) 7.674 7.35-7.45 HH ARTERIAL BLOOD GAS PCO2 (mekhi t code = PCO2A) 17.1 mmHg 35-45 LL ARTERIAL BLOOD GAS PO2 (test code = PO2A) 86 mmHg 80-100 N BICARBONATE TOTAL HCO3 (test code = HCO3) 19.9 mmol/L 22.0-26.0 L BASE EXCESS (test code = JACOB) 0.0 mmol/L -4-4 N ABG O2 SATURATION (test code = SATA) 99 % 90-100 N ABG DELIVERY (test code = CABRERA) Cannula ABG TEMPERATURE (test code = TEMPA) 98.6 F ABG SITE (test code = SITEA) R Fem TCO2 ARTERIAL (test code = TCO2A) 20 VENOUS BLOOD [id number] 15:04:00* Test Item Value Reference Range Interpretation Comme nts VENOUS BLOOD GAS PH (test co de = PHV) 7.55 7.33-7.45 H VENOUS BLOOD GAS PCO2 (test code = PCO2V) 22 mmHg 43-47 L VENOUS BLOOD GAS PO2 (test c ode = PO2V) 37 mmHg 10-50 N VBG HCO3 (test code = HCO3V) 19.4 mmol/L 22-27 L VBG BASE EXCESS (test code = YVONNE) -3.0 mmol/L -4.0-4.0 N VENOUS BLOOD GAS O2 SAT. (te st code = O2SATV) 80 % 60-80 N VENOUS BLOOD GAS DELIVERY (t est code = DELV) Cannula VENOUS BLOOD GAS TEMP (test code = TEMPV) 98.6 F VENOUS BLOOD GAS SITE (test code = SITEV) R Brach VENOUS TCO2 (test code = TCO2V) 20 ACUTE HEPATITIS [id number] 12:54:00* Test Item Value Reference Range Interpretation Comme nts AB HEPATITIS A IGM (test code = HAVMAB) NON REACTIVE INDEX NON REACT. AG HEPATITIS B SURFACE (test code = HBSAG) NON REACTIVE INDEX NonReactive AB HEPATITIS B CORE IGM (test code = HBCMAB) NON REACTIVE INDEX NON REACT. AB HEPATITIS C (test code = HCVAB) NON REACTIVE INDEX NON REACT. COMMENTS: At start of hemodialysisAB HEPATITIS B [id number] 12:54:00* Test Item Value Reference Range Interpretation Comme nts AB HEPATITIS B SURFACE (test code = HBSAB) COMMENTS: At start of hemodialysis- XR CHEST 1 [id number] 12:49:00FAX: Joel Falk [phone] [place]: St: ADM FAX: Mick Lin [phone] --- Name: MAC AGUSTIN [facility] : 1945 Age/S: 74/F [address] [place] [address] Unit #: [id number] Loc: G.M317 [place] [address] Phys: Mick Lin MD Acct: [id number] Dis Date: Status: ADM IN PHONE #: Exam Date: 09/26/2019 1231 FAX #: [phone] Reason: CONFIRM LINE PLACEMENT OF RIGHT IJ EXAMS: CPT CODE: [id number] XR CHEST 1 V 30989 EXAM: Single view AP chest. EXAM DATE: 09/26/2019 at 1221 hours CLINICAL HISTORY: CONFIRM LINE PLACEMENT OF RIGHT IJ COMPARISON: September 26, 2019 at 0527hours Dual- chamber right-sided IJ catheter tip is in the region of the superior vena cava just above the level of the right atrium. Heart size is grossly within normal limits. Atherosclerotic calcifications and tortuosity of the intrathoracic aorta is identified.. The lungs appear free of acute disease. No pneumothorax is identified. Imaged osseous structures demonstrate no acute findings. IMPRESSION: Right IJ catheter with its tip in the superior vena cava just above the level of the right atrium. No acute cardiopulmonary findings identified. at 0869 Reported and signed by: Tracy Johnson M.D. CC: Joel Myers MD; Mick Lin MD Technologist: RT Viji(Bonifacio) Trnscrd Date/Time/By: 09/26/2019(6516) : By: GaryCER Orig Print D/T: S: 09/26/2019 (1449) PAGE 1 Signed ReportACUTE HEPATITIS [id number] 12:22:00* Test Item Value Reference Range Interpretation Comme nts AB HEPATITIS A IGM (test code = HAVMAB) INDEX NON REACT. AG HEPATITIS B SURFACE (test code = HBSAG) NON REACTIVE INDEX NonReactive AB HEPATITIS B CORE IGM (test code = HBCMAB) INDEX NON REACT. AB HEPATITIS C (test code = HCVAB) INDEX NON REACT. COMMENTS: At start of hemodialysisAB HEPATITIS B [id number] 12:22:00* Test Item Value Reference Range Interpretation Comme nts AB HEPATITIS B SURFACE (test code = HBSAB) COMMENTS: At start of hemodialysisACUTE HEPATITIS [id number] 12:22:00* Test Item Value Reference Range Interpretation Comme nts AB HEPATITIS A IGM (test code = HAVMAB) INDEX NON REACT. AG HEPATITIS B SURFACE (test code = HBSAG) NON REACTIVE INDEX NonReactive AB HEPATITIS B CORE IGM (test code = HBCMAB) INDEX NON REACT. AB HEPATITIS C (test code = HCVAB) INDEX NON REACT. COMMENTS: At start of hemodialysisAB HEPATITIS B [id number] 12:22:00* Test Item Value Reference Range Interpretation Comme nts AB HEPATITIS B SURFACE (test code = HBSAB) COMMENTS: At start of hemodialysisCOMPREHENSIVE METABOLIC [id number] 11:44:00* Test Item Value Reference Range Interpretation Comme nts SODIUM (test code = NA) 145 mEq/L 134-147 N POTASSIUM (test code = K) 4.8 mEq/L 3.4-5.0 CHLORIDE (test code = CL) 102 mEq/L 100-108 CARBON DIOXIDE (test code = CO2) 4 mEq/L 21-33 L ANION GAP (test code = GAP) 44 0-20 H GLUCOSE (test code = GLU) 147 mg/dL 70-110 H BLOOD UREA NITROGEN (test code = BUN) 86 mg/dL 7-18 H GLOMERULAR FILTRATION RATE (test code = GFR) 8.3 70-80 L Units of measure = ml/min/1.73 m2 CREATININE (test code = CREAT) 5.1 mg/dL 0.6-1.3 H TOTAL PROTEIN (test code = PROT) 5.5 g/dL 6.4-8.2 L ALBUMIN (test code = ALB) 2.40 g/dL 3.4-5.0 L CALCIUM (test code = CA) 7.8 mg/dL 8.0-10.5 L BILIRUBIN TOTAL (test code = BILT) 0.4 MG/DL <1.5 SGOT/AST (test code = AST) 43 IUnit/L 15-37 H SGPT/ALT (test code = ALT) 26 IUnit/L 15-65 ALKALINE PHOSPHATASE TOTAL (test code = ALKP) 52 IUnit/L 20-125 N [id number] 11:44:00* Test Item Value Reference Range Interpretation Comme nts PHOSPHOROUS (test code = PHOS) 9.2 MG/DL 2.5-4.9 [id number] 11:44:00* Test Item Value Reference Range Interpretation Comme nts MAGNESIUM (test code = MAG) 2.90 mg/dL 1.8-2.4 H CALCIUM [id number] 11:44:00* Test Item Value Reference Range Interpretation Comme nts CALCIUM IONIZED (test code = DMITRY) 1.07 MMOL/L 1.12-1.32 L LACTIC ACID 2ND [id number] 11:23:00* Test Item Value Reference Range Interpretation Comme nts LACTIC ACID 2ND REPEAT (test code = LACT2) 21.3 mmol/L 0.4-1.9 COMPREHENSIVE METABOLIC [id number] 10:59:00* Test Item Value Reference Range Interpretation Comme nts SODIUM (test code = NA) 145 mEq/L 134-147 N POTASSIUM (test code = K) 4.8 mEq/L 3.4-5.0 CHLORIDE (test code = CL) 102 mEq/L 100-108 CARBON DIOXIDE (test code = CO2) 4 mEq/L 21-33 L ANION GAP (test code = GAP) 44 0-20 H GLUCOSE (test code = GLU) 147 mg/dL 70-110 H BLOOD UREA NITROGEN (test code = BUN) 86 mg/dL 7-18 H GLOMERULAR FILTRATION RATE (test code = GFR) 8.3 70-80 L Units of measure = ml/min/1.73 m2 CREATININE (test code = CREAT) 5.1 mg/dL 0.6-1.3 H TOTAL PROTEIN (test code = PROT) 5.5 g/dL 6.4-8.2 L ALBUMIN (test code = ALB) 2.40 g/dL 3.4-5.0 L CALCIUM (test code = CA) 7.8 mg/dL 8.0-10.5 L BILIRUBIN TOTAL (test code = BILT) 0.4 MG/DL <1.5 SGOT/AST (test code = AST) 43 IUnit/L 15-37 H SGPT/ALT (test code = ALT) 26 IUnit/L 15-65 ALKALINE PHOSPHATASE TOTAL (test code = ALKP) 52 IUnit/L 20-125 N [id number] 10:59:00* Test Item Value Reference Range Interpretation Comme nts PHOSPHOROUS (test code = PHOS) MG/DL 2.5-4.9 [id number] 10:59:00* Test Item Value Reference Range Interpretation Comme nts MAGNESIUM (test code = MAG) 2.90 mg/dL 1.8-2.4 H CALCIUM [id number] 10:59:00* Test Item Value Reference Range Interpretation Comme nts CALCIUM IONIZED (test code = DMITRY) 1.07 MMOL/L 1.12-1.32 L COMPREHENSIVE METABOLIC [id number] 10:59:00* Test Item Value Reference Range Interpretation Comme nts SODIUM (test code = NA) 145 mEq/L 134-147 N POTASSIUM (test code = K) 4.8 mEq/L 3.4-5.0 CHLORIDE (test code = CL) 102 mEq/L 100-108 CARBON DIOXIDE (test code = CO2) 4 mEq/L 21-33 L ANION GAP (test code = GAP) 44 0-20 H GLUCOSE (test code = GLU) 147 mg/dL 70-110 H BLOOD UREA NITROGEN (test code = BUN) 86 mg/dL 7-18 H GLOMERULAR FILTRATION RATE (test code = GFR) 8.3 70-80 L Units of measure = ml/min/1.73 m2 CREATININE (test code = CREAT) 5.1 mg/dL 0.6-1.3 H TOTAL PROTEIN (test code = PROT) 5.5 g/dL 6.4-8.2 L ALBUMIN (test code = ALB) 2.40 g/dL 3.4-5.0 L CALCIUM (test code = CA) 7.8 mg/dL 8.0-10.5 L BILIRUBIN TOTAL (test code = BILT) 0.4 MG/DL <1.5 SGOT/AST (test code = AST) 43 IUnit/L 15-37 H SGPT/ALT (test code = ALT) 26 IUnit/L 15-65 ALKALINE PHOSPHATASE TOTAL (test code = ALKP) 52 IUnit/L 20-125 N [id number] 10:59:00* Test Item Value Reference Range Interpretation Comme nts PHOSPHOROUS (test code = PHOS) MG/DL 2.5-4.9 [id number] 10:59:00* Test Item Value Reference Range Interpretation Comme nts MAGNESIUM (test code = MAG) 2.90 mg/dL 1.8-2.4 H CALCIUM [id number] 10:59:00* Test Item Value Reference Range Interpretation Comme nts CALCIUM IONIZED (test code = DMITRY) 1.07 MMOL/L 1.12-1.32 L COMPREHENSIVE METABOLIC [id number] 10:50:00* Test Item Value Reference Range Interpretation Comme nts SODIUM (test code = NA) 145 mEq/L 134-147 N POTASSIUM (test code = K) 4.8 mEq/L 3.4-5.0 CHLORIDE (test code = CL) 102 mEq/L 100-108 CARBON DIOXIDE (test code = CO2) 4 mEq/L 21-33 L ANION GAP (test code = GAP) 44 0-20 H GLUCOSE (test code = GLU) 147 mg/dL 70-110 H BLOOD UREA NITROGEN (test code = BUN) 86 mg/dL 7-18 H GLOMERULAR FILTRATION RATE (test code = GFR) 8.3 70-80 L Units of measure = ml/min/1.73 m2 CREATININE (test code = CREAT) 5.1 mg/dL 0.6-1.3 H TOTAL PROTEIN (test code = PROT) 5.5 g/dL 6.4-8.2 L ALBUMIN (test code = ALB) 2.40 g/dL 3.4-5.0 L CALCIUM (test code = CA) 7.8 mg/dL 8.0-10.5 L BILIRUBIN TOTAL (test code = BILT) 0.4 MG/DL <1.5 SGOT/AST (test code = AST) 43 IUnit/L 15-37 H SGPT/ALT (test code = ALT) 26 IUnit/L 15-65 ALKALINE PHOSPHATASE TOTAL (test code = ALKP) 52 IUnit/L 20-125 N [id number] 10:50:00* Test Item Value Reference Range Interpretation Comme nts PHOSPHOROUS (test code = PHOS) MG/DL 2.5-4.9 [id number] 10:50:00* Test Item Value Reference Range Interpretation Comme nts MAGNESIUM (test code = MAG) 2.90 mg/dL 1.8-2.4 H CALCIUM [id number] 10:50:00* Test Item Value Reference Range Interpretation Comme nts CALCIUM IONIZED (test code = DMITRY) MMOL/L 1.12-1.32 COMPREHENSIVE METABOLIC [id number] 10:46:00* Test Item Value Reference Range Interpretation Comme nts SODIUM (test code = NA) 145 mEq/L 134-147 N POTASSIUM (test code = K) 4.8 mEq/L 3.4-5.0 CHLORIDE (test code = CL) 102 mEq/L 100-108 CARBON DIOXIDE (test code = CO2) 4 mEq/L 21-33 L ANION GAP (test code = GAP) 44 0-20 H GLUCOSE (test code = GLU) 147 mg/dL 70-110 H BLOOD UREA NITROGEN (test co de = BUN) 86 mg/dL 7-18 H GLOMERULAR FILTRATION RATE ( test code = GFR) 70-80 CREATININE (test code = CREAT) mg/dL 0.6-1.3 TOTAL PROTEIN (test code = PROT) g/dL 6.4-8.2 ALBUMIN (test code = ALB) g/dL 3.4-5.0 CALCIUM (test code = CA) 7.8 mg/dL 8.0-10.5 L BILIRUBIN TOTAL (test code = BILT) MG/DL <1.5 SGOT/AST (test code = AST) IUnit/L 15-37 SGPT/ALT (test code = ALT) IUnit/L 15-65 ALKALINE PHOSPHATASE TOTAL ( test code = ALKP) IUnit/L 20-125 [id number] 10:46:00* Test Item Value Reference Range Interpretation Comme nts PHOSPHOROUS (test code = PHOS) MG/DL 2.5-4.9 [id number] 10:46:00* Test Item Value Reference Range Interpretation Comme nts MAGNESIUM (test code = MAG) mg/dL 1.8-2.4 CALCIUM [id number] 10:46:00* Test Item Value Reference Range Interpretation Comme nts CALCIUM IONIZED (test code = DMITRY) MMOL/L 1.12-1.32 CBC W/AUTO [id number] 10:19:00* Test Item Value Reference Range Interpretation Comme nts WHITE BLOOD CELL (test code = WBC) 26.44 x10 3/uL 4.5-11.0 H RED BLOOD CELL (test code = RBC) 3.50 x10 6/uL 3.54-5.02 L HEMOGLOBIN (test code = HGB) 10.5 g/dL 11.0-15.0 L HEMATOCRIT (test code = HCT) 36.1 % 33.0-45.0 N MEAN CELL VOLUME (test code = MCV) 103.1 fL 81.0-99.0 H MEAN CELL HGB (test code = MCH) 30.0 pg 27.0-33.0 N MEAN CELL HGB CONCETRATION (test code = MCHC) 29.1 g/dL 33.0-37.0 L RED CELL DISTRIBUTION WIDTH CV (test code = RDW) 13.5 % 11.5-14.5 N RED CELL DISTRIBUTION WIDTH SD (test code = RDW-SD) 51.6 fL 37.0-54.0 N PLATELET COUNT (test code = PLT) 269 x10 3/uL 150-400 N MEAN PLATELET VOLUME (test code = MPV) 11.7 fL 7.0-9.0 H NEUTROPHIL % (test code = NT%) 81.1 % 56.0-77.0 H IMMATURE GRANULOCYTE % (test code = IG%) 1.6 % 0.0-2.0 N LYMPHOCYTE % (test code = LY%) 4.8 % 14.0-32.0 L MONOCYTE % (test code = MO%) 12.3 % 4.8-9.0 H EOSINOPHIL % (test code = EO%) 0.0 % 0.3-3.7 L BASOPHIL % (test code = BA%) 0.2 % 0.0-2.0 N NUCLEATED RBC % (test code = NRBC%) 0.0 % 0-0 N NEUTROPHIL # (test code = NT#) 21.47 x10 3/uL 2.0-7.6 H IMMATURE GRANULOCYTE # (test code = IG#) 0.41 x10 3/uL 0.00-0.03 H LYMPHOCYTE # (test code = LY#) 1.26 x10 3/uL 1.0-3.8 N MONOCYTE # (test code = MO#) 3.25 x10 3/uL 0.1-0.8 H EOSINOPHIL # (test code = EO#) 0.00 x10 3/uL 0.0-0.2 N BASOPHIL # (test code = BA#) 0.05 x10 3/uL 0.0-0.2 N NUCLEATED RBC # (test code = NRBC#) 0.00 x10 3/uL 0.0-0.1 N MANUAL DIFF REQUIRED (test code = MDIFF) NO ARTERIAL BLOOD [id number] 09:53:00* Test Item Value Reference Range Interpretation Comme nts ARTERIAL BLOOD GAS PH (test code = PHA) 6.787 7.35-7.45 LL ARTERIAL BLOOD GAS PCO2 (mekhi t code = PCO2A) 13.7 mmHg 35-45 LL ARTERIAL BLOOD GAS PO2 (test code = PO2A) 158 mmHg 80-100 H BICARBONATE TOTAL HCO3 (test code = HCO3) 2.1 mmol/L 22.0-26.0 L BASE EXCESS (test code = JACOB) < -30.0 mmol/L -4-4 L ABG O2 SATURATION (test code = SATA) 96 % 90-100 N ABG DELIVERY (test code = CABRERA) Cannula ABG TEMPERATURE (test code = TEMPA) 98.6 F ABG SITE (test code = SITEA) R Rad TCO2 ARTERIAL (test code = TCO2A) < 5 [id number] 08:39:00* Test Item Value Reference Range Interpretation Comme nts TROPONIN-I (test code = TROPI) 0.033 ng/mL 0.000-0.045 N Negative: <= 0.0 45 Positive: >= 0.046 Correlation with serial results, other cardiac markers andclinical findings is necessary to determine the clinicalsignificance of this result. Results using different methodologies should not be comparedto one another as quantitative results may vary by method. COMMENTS: 3 troponins total (including troponin done in ED)[id number] 07:39:00* Test Item Value Reference Range Interpretation Comme nts GLUBED (test code = GLUBED) 107 MG/DL 70-110 N Performed by cer tified egg breaking machine operator at [facility] LACTIC ACID [id number] 07:06:00* Test Item Value Reference Range Interpretation Comme nts LACTIC ACID REPEAT (test cod e = LACTR) 19.1 mmol/l 0.4-1.9 HH - CT ABD PELVIS W/O [id number] 06:29:00Name: NIKOLEDAVISMAC A [facility] : 1945 Age/S: 74 / F [address] [place] [address] Unit #: [id number] Loc: [place] [address] Phys: Facundo Phan MD Acct: [id number] Dis Date: Status: REG ER PHONE #: [phone] Exam Date: 09/26/2019 0546 FAX #: [phone] Reason: POSSIBLE PNEUMOPERITONEUM EXAMS: CPT CODE: [id number] CT ABD PELVIS W/O CONT 15671 STUDY: - CT CHEST W/O CONTRAST, - CT ABD PELVIS W/O CONT 09/26/2019 4:27 AM Ordering Physician: Facundo Phan MD Patient Name: OPAL NESS MR: [id number] : 1947; Age: 72 years y/o Female [...] of iterative reconstruction technique CT Radiation Dose DLP:538.32 mGy-cm CT CHEST WITHOUT CONTRAST: LUNGS: Mildly hyperinflated but clear lungs associated with mild subsegmental atelectasis and scarring in the lung bases. No consolidation, pleural effusion,or pneumothorax. Small calcified granuloma in the right lung base. Mild pleural/parenchymal scarring in the lung apices. AIRWAY: Clear central tracheobronchial tree. HEART: Normal size heart associated with moderate coronary artery calcifications and prominent pericardial fat. THORACIC AORTA: Normal caliber nonenhanced thoracic aorta associated with mild calcified plaque. PULMONARY ARTERIES: Nonopacified. MEDIASTINUM AND ERIKA: Slightly heterogeneous thyroid without discrete lesion. Scattered subcentimeter mediastinal lymph nodes without PAGE 1 Signed Report (CONTINUED) Name: MAC AGUSTIN [facility] : 1945 Age/S: 74 / F [address] [place] [address] Blvd Unit #: [id number] Loc: [place] [address] Phys: Facundo Phan MD Acct: [id number] Dis Date: Status: REG ER PHONE #: [phone] Exam Date: 09/26/2019 0546 FAX #: [phone] Reason: POSSIBLE PNEUMOPERITONEUM EXAMS: CPT CODE: [id number] CT ABD PELVIS W/O CONT 10400 (Continued) lymphadenopathy or mass. SOFT TISSUES: Mild [...] The appendix is not identified with certainty, but no pericecal inflammation is appreciated. STOMACH: Moderately dilated [...] Mesenteric and peritoneal fat: Mild diffuse hazy induration of the peritoneal fat without specific site of localization. LYMPH NODES: Scattered small nonspecific central mesenteric and retroperitoneal lymph nodes. 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 IVC: Normal caliber nonenhanced. ABDOMINAL ORGANS: Liver: Normal size and morphology without discrete lesion. PAGE 2 Signed Report (CONTINUED) Name: MAC AGUSTIN [facility] : 1945 Age/S: 74 / F [address] [place] [address] Blvd Unit #: [id number] Loc: [place] [address] Phys: Facundo Phan MD Acct: [id number] Dis Date: Status: REG ER PHONE #: [phone] Exam Date: 09/26/2019 0546 FAX #: [phone] Reason: POSSIBLE PNEUMOPERITONEUM EXAMS: CPT CODE: [id number] CT ABD PELVIS W/O CONT 33470 (Continued) Gallbladder: Postoperative change of cholecystectomy. Biliary [...] seen involving the left superior renal pole measuring2.5 cm at 24 Hounsfield units. Adrenal Glands: [...] and lower abdominal wall likely related to medicationinjection. OSSEOUS STRUCTURES: Mild to moderate lumbar spondylosis and facet arthrosis. 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 No acute fracture or dislocation. IMPRESSION: Nonspecific nonobstructive bowel gas pattern associated with mild diffuse colonic wall thickening either related to underdistention or nonspecific colitis. Mild submucosal fat seen in the colon suggest chronic colonic inflammatory change. PAGE 3 Signed Report (CONTINUED) Name: MAC AGUSTIN [facility] Crescencio Reece : 1945 Age/S: 74 / F [address] [place] [address] Unit #: [id number] Loc: [place] [address] Phys: Facundo Phan MD Acct: [id number] Dis Date: Status: REG ER PHONE #: [phone] Exam Date: 09/26/2019 0546 FAX #: [phone] Reason: POSSIBLE PNEUMOPERITONEUM EXAMS: CPT CODE: [id number] CT ABD PELVIS W/O CONT 80735 (Continued) Mild sigmoid diverticulosis. Moderately dilated stomach with areasof asymmetric wall thickening in the antrum and greater gastric curvature that may represent gastritis or underlying neoplasm. Follow-up upper GI or endoscopy may be helpful. Additionally, a radionuclide gastric emptying study may be helpful if gastroparesis is suspected clinically. Mild left renalcortical atrophy associated with a small mildly complex [...] injection. Postoperative change of cholecystectomy. SL: TPAINTER-H Electronically Signed by Blanche Edward on 09/26/2019 at 0629 Reported and signed by: Amadeo Edward M.D. PAGE 4 Signed Report (CONTINUED) Name: MAC AGUSTIN [facility] Crescencio Reece : 1945 Age/S: 74 / F [address] [place] [address] Unit #: [id number] Loc: [place] [address] Phys: Facundo Phan MD Acct: [id number] Dis Date: Status: REG ER PHONE #: [phone] Exam Date: 09/26/2019545 FAX #: [phone] Reason: POSSIBLE PNEUMOPERITONEUM EXAMS: CPT CODE: [id number] CT ABD PELVIS W/O CONT 63154 (Continued) CC: Facundo Phan MD Technologist:Kait Mckeon, RT(R) CTDI: DLP: Trnscb Date/Time: 09/26/2019 (628) [email or web address] Orig Print D/T: S: 09/26/2019 (32) PAGE 5 Signed Report- CT CHEST W/O [id number] 06:29:00Name: MAC AGUSTIN [facility] : 1945 Age/S: 74 / F [address] [place] [address] Unit #:[id number] Loc: [place] [address] Phys: Facundo Phan MD Acct: [id number] Dis Date: Status: REG ER PHONE #: [phone] Exam Date: 09/26/2019545 FAX #: [phone] Reason: POSSIBLE PNEUMOPERITONEUM EXAMS: CPT CODE: [id number] CT CHEST W/O CONTRAST 05568 STUDY: - CT CHEST W/O CONTRAST, - CT ABD PELVIS W/O CONT 09/26/2019 4:27 AM Ordering Physician: Facundo Phan MD Patient Name: MAC AGUSTIN MR: [id number] : 1947; Age: 72 years y/o Female [...] of iterative reconstruction technique CT Radiation Dose DLP:538.32 mGy-cm CT CHEST WITHOUT CONTRAST: LUNGS: Mildly hyperinflated but clear lungs associated with mild subsegmental atelectasis and scarring in the lung bases. No consolidation, pleural effusion, or pneumothorax. Small calcified granuloma in the right lung base. Mild pleural/parenchymal scarring in the lung apices. AIRWAY: Clear central tracheobronchial tree. HEART: Normal size heart associated with moderate coronary artery calcifications and prominent pericardial fat. THORACIC AORTA: Normal caliber nonenhanced thoracic aorta associated with mild calcified plaque. PULMONARY ARTERIES: Nonopacified. MEDIASTINUM AND ERIKA: Slightly heterogeneous thyroid without discrete lesion. Scattered subcentimeter mediastinal lymph nodes without PAGE 1 Signed Report (CONTINUED) Name: MAC AGUSTIN [facility] : 1945 Age/S: 74 / F [address] [place] [address] Blvd Unit #: [id number] Loc: [place] [address] Phys: Facundo Phan MD Acct: [id number] Dis Date: Status: REG ER PHONE #: [phone] Exam Date: 09/26/2019 0546 FAX #: [phone] Reason: POSSIBLE PNEUMOPERITONEUM EXAMS: CPT CODE: [id number] CT CHEST W/O CONTRAST 06891 (Continued) lymphadenopathy or mass. SOFT TISSUES: Mild anasarca. OSSEOUS STRUCTURES: Mild to moderate thoracic spondylosis and facet arthrosis greatest in the lower thoracic spine. Mild old appearing lower thoracic compression fractures. No acute fracture or dislocation after accounting for mild motion artifact. CT ABDOMEN AND PELVIS WITHOUT CONTRAST: BOWELGAS: Nonspecific nonobstructed bowel gas pattern associated with mild diffuse wall thickening likely related to underdistention or mild nonspecific colitis. Mild submucosal fat within the colon suggesting chronic colonic inflammation. Mild sigmoid diverticulosis. APPENDIX: The appendix is not identified with certainty, but no pericecal inflammation is appreciated. STOMACH: Moderately dilated stoma ch with mild focal lobulated asymmetric thickening in the antropyloric region of the stomach and along the greater gastric curvature that may be related to nonspecific gastritis or neoplasm. PERITONEUM AND MESENTERY: Free Air: No evidence of pneumoperitoneum. Free Fluid: No evidence of significantfree fluid, loculated fluid, peripherally enhancing abscess, or hemorrhage. Mesenteric and peritoneal fat: Mild diffuse hazy induration of the peritoneal fat without specific site of localization. LYMPH NODES: Scattered small nonspecific central mesenteric and retroperitoneal lymph nodes. VASCULAR:Abdominal Aorta: Mildly to moderately atherosclerotic nonenhanced abdominal aorta associated with in frarenal aneurysm measuring 3.1 cm maximum transverse dimension. IVC: Normal caliber nonenhanced. ABDOMINAL ORGANS: Liver: Normal size and morphology without discrete lesion. PAGE 2 Signed Report (CONTINUED) Name: [facility] Crescencio Reece : 1945 Age/S: 74 / F [address] [place] [address] BlvdUnit #: [id number] Loc: [place] [address] Phys: Facundo Phan MD Acct: [id number] Dis Date: Status: REG ER PHONE #: [phone] Exam Date: 09/26/2019 0546 FAX #: [phone] Reason: POSSIBLE PNEUMOPERITONEUM EXAMS: CPT CODE: [id number] CT CHEST W/O CONTRAST 11633 (Continued) Gallbladder: Postoperative change of cholecystectomy. Biliary Tree: Mildly prominent intrahepatic and extrahepatic b ile ducts likely physiological in nature status post cholecystectomy. Kidneys: Normal size nonenhanced right kidney without nephrolithiasis, ureterolithiasis, hydronephrosis, or focal lesion. Small vascular calcifications are seen centrally in the right kidney. Mild left renal cortical atrophy associated with small central vascular calcifications. No definite nephrolithiasis, ureterolithiasis, orhydronephrosis. An ill-defined cyst is seen involving the left superior renal pole measuring 2.5 cmat 24 Hounsfield units. Adrenal Glands: Subtle central fullness versus a small nodule measuring 1.3cm in the left adrenal gland. Normal right [...] joints and hips. No acute fracture or dislocation. IMPRESSION: Nonspecific nonobstructive bowel gas pattern associated with mild diffuse colonic wall thickening either related to underdistention or nonspecific colitis. Mild submucosal fat seen in the colon suggest chronic colonic inflammatory change. PAGE 3 Signed Report (CONTINUED) Name: MAC AGUSTIN [facility] Crescencio Reece : 1945 Age/S: 74 / F [address] [place] [address] Blvd Unit #: [id number] Loc: [place] [address] Phys: Facundo Phan MD Acct: [id number] Dis Date: Status: REG ER PHONE #: [phone] Exam Date: 09/26/2019545 FAX #: [phone] Reason: POSSIBLE PNEUMOPERITONEUM EXAMS: CPT CODE: [id number] CT CHEST W/O CONTRAST 71457 (Continued) Mild sigmoid diverticulosis. Moderately dilated stomach with areas of asymmetric wall thickening in the antrum and greater gastric curvature that may represent gastritis or underlying neoplasm. Follow-up upper GI or endoscopy may be helpful. Additionally, a radionuclide gastric emptying study may be helpful if gastroparesis is suspected clinically. Mild left renal cortical atrophy associated with a small mildly complex cyst. Further evaluation may be obtained with renalultrasound. Tiny focus of gas in the urinary bladder may represent recent catheterization or cold fistula with bowel. Mild diffuse anasarca. Normal size heart associated with moderate coronary arterycalcifications. Mild hyperinflation associated with subsegmental atelectasis and scarring in both l ungs greatest in the lung bases. 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 Mild soft tissue gas in the rightanterior abdominal and pelvic wall likely related to recent medication injection. Postoperative change of cholecystectomy. 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 PAGE 4 Signed Report (CONTINUED) Name: MAC AGUSTIN [facility] : 1945 Age/S: 74 / F [address] [place] [address] Unit #: [id number] Loc: [place] [address] Phys: Facundo Phan MD Acct: [id number] Dis Date: Status: REG ER PHONE #: [phone] Exam Date: 09/26/201946 FAX #: [phone] Reason: POSSIBLE PNEUMOPERITONEUM EXAMS: CPT CODE: [id number] CT CHEST W/O CONTRAST 60488 (Continued) CC: Facundo Phan MD Te chnologist:Kait Belser, RT(R) CTDI: DLP: Trnscb Date/Time: 09/26/2019 (06) [email or web address] Orig Print D/T: S: 09/26/2019 (0632) PAGE 5 Signed Report- CT HEAD/BRAIN W/O [id number] 06:09:00Name: MAC AGUSTIN [facility] : 1945 Age/S: 74 / F [address] [place] [address] Unit #: [id number] Loc: [place] [address] Phys: Facundo Phan MD Acct: [id number] Dis Date: Status: REG ER PHONE #: [phone] Exam Date: 09/26/2019 0546 FAX #: [phone] Reason: ALTERED MENTAL STATUS, EXAMS: CPT CODE: [id number] CT HEAD/BRAIN W/O CONT 86382 STUDY: - CT HEAD/BRAIN W/O CONT 09/26/2019 5:23 AM Ordering Physician: Facundo Phan MD Patient Name: MAC AGUSTIN MR: [id number]: 1947; Age: 72 years y/o Female Clinical Indication: ALTERED MENTAL STATUS, Comparison: None TECHNIQUE: Multiple contiguous transaxial noncontrast [...] FINDINGS: BRAIN PARENCHYMA: Mild to moderate diffuse atrophy is present associated with mild nonspecific periventricular low attenuation most 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 No evidence of acute intracranial hemorrhage, mass lesion, mass effect, midline shift, or extra-axial fluid collection. Small old appearing lacunar infarctions in both basal ganglia and the left thalamus. Mild to moderate calcification involving both internal carotid artery siphons and the vertebral arteries. VENTRICLES: The lateral ventricles, third ventricle, fourth ventricle, and basilar cisterns are appropriate for degree of atrophy present. PARANASAL SINUSES: Mild diffuse mucoperiosteal thickening in the ethmoid sinus in the left Vishal sinus.The visualized portions of the PAGE 1 Signed Report (CONTINUED) Name: MAC AGUSTIN : 1945 Age/S: 74 / F [address] [place] [address] Unit #: [id number] Loc: [place] [address] Phys: Facundo Phan MD Acct: [id number] Dis Date: Status: REG ER PHONE #: [phone] Exam Date: 09/26/2019545 FAX #: [phone] Reason: ALTERED MENTAL STATUS, EXAMS: CPT CODE: [id number] CT HEAD/BRAIN W/O CONT 67047 (Continued) remaining paranasal sinuses are clear. MASTOIDS: [...] Amadeo Edward M.D. CC: Facundo Phan MD Technologist:Kait Mckeon, RT(R) CTDI: DLP: Trnscb Date/Time: 09/26/2019 (608) [email or web address] Orig Print D/T: S: 09/26/2019 (12) PAGE 2 Signed Report- CT C-SPINE W/O [id number] 06:04:00Name: MAC AGUSTIN : 1945 Age/S: 74 / F [address] [place] [address] Unit #: [id number] Loc: [place] [address] Phys: Facundo Phan MD Acct: [id number] Dis Date: Status: REG ER PHONE #: [phone] Exam Date: 09/26/2019545 FAX #: [phone] Reason: ALTERED MENTAL STATUS EXAMS: CPT CODE: [id number] CT C-SPINE W/O CONT 39188 STUDY: - CT C-SPINE W/O CONT 09/26/2019 5:23 AM Ordering Physician: Facundo Phan MD Patient Name: MAC AGUSTIN MR: [id number] : 1947; Age: 72 years y/o Female Clinical Indication: ALTERED MENTAL STATUS Comparison: None Technique: Multiple contiguous noncontrast CT images were obtained through [...] ALIGNMENT AND GENERAL ASSESSMENT: Mild loss of normallordosis may be related to positioning or muscle spasm. Mild diffuse cervical spondylosis and facetarthrosis greatest in the lower cervical spine. Minimal grade 1 anterolisthesis of C5 on C6 appears degenerative in nature. No acute fracture, dislocation, or suspicious focal osseous lesion. DISK SPACES: Multilevel mild spinal canal narrowing and mild neural foraminal narrowing greatest in the midand lower cervical spine. PREVERTEBRAL SOFT TISSUES: The prevertebral soft tissue thickness is normal. Mildly heterogeneous thyroid. Mild vascular calcification both carotid bifurcations and ICA origins. LUNG APICES: The visualized portions of the lung apices are clear. PAGE 1 Signed Report (CONTINUED) Name: MAC AGUSTIN [facility] : 1945 Age/S: 74 / F [address] [place] [address] Unit #: [id number] Loc: [place] [address] Phys: Facundo Phan MD Acct: [id number] Dis Date: Status: REG ER PHONE #: [phone] Exam Date: 09/26/2019545 FAX #: [phone] Reason: ALTERED MENTAL STATUS EXAMS: CPT CODE: [id number] CT C- SPINE W/O CONT 06677 (Continued) Mastoids: Mild partial opacification of the mastoid air cells bilaterally. IMPRESSION: Mild cervical spondylosis and facet arthrosis without acute fracture or dislocation. Mild chronic bilateral mastoiditis. SL: TPAINTER-H at 0604 Reported and signed by:Amadeo Edward M.D. CC: Facundo Phan MD Technologist:Kait Mckeon, RT(R) CTDI: DLP: Trnscb Date/Time: 09/26/2019 (06) [email or web address] Orig Print D/T: S: 09/26/2019 (0607) PAGE 2 Signed Report- XR CHEST 1 [id number] 05:43:00FAX: Facundo Rivas MD [phone] [place]: St: REG Name: MAC AGUSTIN [facility] [place] : 1947 Age/S: 72/F [address] [place] [address] Unit #: [id number] Loc: [place] [address] Phys: Siva Phan Acct: [id number] Dis Date: Status: REG ER PHONE #: [phone] Exam Date: 09/26/2019 0532 FAX#: [phone] Reason: ALTERED MENTAL STATUS EXAMS: CPT CODE: [id number] XR CHEST 1 V 04781 Study: - XR CHEST 1 V 09/26/2019 5:23 AM Patient Name: MAC AGUSTIN MR: [id number] : 1947; Age: 72 years y/o Female Ordering Physician: Facundo Phan MD Clinical Indication: ALTERED MENTAL STATUS Comparison: 09/26/2019 at 0400 hours FINDINGS LUNGS: Mildly hypoinflated but clear lungs without consolidation, pleural effusion, or pneumothorax. A skinfold is [...] atriocaval junction without pneumothorax. SL: TPAINTER-H at 0543 Reported and signed by: Amadeo Edward M.D. PAGE 1 Signed Report (CONTINUED) FAX:Facundo Rivas MD [phone] [place]: St: REG Name: MAC AGUSTIN [facility] : 1947 Age/S: 72/F [address] [place] [address] Unit #: [id number] Loc: [place] [address] Phys: Facundo Phan MD Acct: [id number] Dis Date: Status: REG ER PHONE #: [phone] Exam Date: 09/26/2019 0532 FAX #: [phone] Reason: ALTERED MENTAL STATUS EXAMS: CPT CODE: [id number] XR CHEST 1 V 41275 (Continued)CC: Facundo Phan MD Technologist: Aleida France, RT(R) Trnscrd Date/Time/By: 09/26/2019 (0543) : By: [email or web address] Orig Print D/T: S: 09/26/2019 (2716) PAGE 2 Signed ReportARTERIAL BLOOD [id number] 04:53:00* Test Item Value Reference Range Interpretation Comme nts ARTERIAL BLOOD GAS PH (test code = PHA) 6.871 7.35-7.45 LL ARTERIAL BLOOD GAS PCO2 (test code = PCO2A) 9.5 mmHg 35-45 LL ARTERIAL BLOOD GAS PO2 (test code = PO2A) 133 mmHg 80-100 H BICARBONATE TOTAL HCO3 (test code = HCO3) 1.9 mmol/L 22.0-26.0 L BASE EXCESS (test code = JACOB) < -30.0 mmol/L -4-4 L ABG O2 SATURATION (test code = SATA) 97 % 90-100 N ABG DELIVERY (test code = CABRERA) Room Air Performed by certified egg breaking machine operator at [facility] ABG TEMPERATURE (test code = TEMPA) 91.7 F ABG SITE (test code = SITEA) R Rad TCO2 ARTERIAL (test code = TCO2A) < 5 B-TYPE NATRIURETIC [id number] 04:31:00* Test Item Value Reference Range Interpretation Comme nts B-TYPE NATRIURETIC PEPTIDE ( test code = BNP) 304.2 PG/ML 0-100 H UA RFLX MICR CULT IF [id number] 04:27:00* Test Item Value Reference Range Interpretation Comme nts UA COLOR (test code = COLU) YELLOW YEL/STRAW UA APPEARANCE (test code = APPU) SL CLOUDY CLEAR UA GLUCOSE DIPSTICK (test co de = DGLUU) 2+ NEGATIVE A UA BILIRUBIN DIPSTICK (test code = BILU) NEGATIVE NEGATIVE UA KETONE DIPSTICK (test cod e = KETU) TRACE NEGATIVE A UA SPECIFIC GRAVITY (test co de = SGU) 1.011 1.005-1.030 N UA BLOOD DIPSTICK (test code = ESSIE) 1+ NEGATIVE A UA PH DIPSTICK (test code = AURORA) 5.0 5.0-7.0 N UA PROTEIN DIPSTICK (test co de = PROU) 2+ NEGATIVE A UA UROBILINIOGEN DIPSTICK (t est code = URO) 0.2 mg/dL 0.2-1.0 UA NITRITE DIPSTICK (test co de = MEHDI) NEGATIVE NEGATIVE UA LEUKOCYTE ESTERASE DIPSTI CK (test code = LEUU) TRACE NEGATIVE A UA WBC (test code = WBCU) 4-9 WBC/HPF 0-3 A UA RBC (test code = RBCU) 4-10 RBC/HPF 0-3 UA WBC NO REFLEX (test code = WBCUCL) 4-9 WBC/HPF 0-3 A UA BACTERIA (test code = BACU) 1+ /HPF NONE SEEN A UA SQUAMOUS CELLS (test code = SQU) 0-5 /HPF NONE SEEN UA MUCUS (test code = MUCU) TRACE /LPF NONE SEEN UA YEAST (BUDDING) (test cod e = YEASTUBD) 1+ /HPF NONE A Indication for culture: Flank PainSpecimen Description: CLEAN CATCHLACTIC ACID 2019-09-26 04:24:00* Test Item Value Reference Range Interpretation Comme nts LACTIC ACID (test code = LACT) 14.8 mmol/L 0.4-1.9 HH BASIC METABOLIC [id number] 04:23:00* Test Item Value Reference Range Interpretation Comme nts SODIUM (test code = NA) 144 mEq/L 134-147 N POTASSIUM (test code = K) 3.2 mEq/L 3.4-5.0 L CHLORIDE (test code = CL) 114 mEq/L 100-108 H CARBON DIOXIDE (test code = CO2) 4 mEq/L 21-33 L ANION GAP (test code = GAP) 29 0-20 H GLUCOSE (test code = GLU) 100 mg/dL 70-110 N BLOOD UREA NITROGEN (test code = BUN) 69 mg/dL 7-18 H GLOMERULAR FILTRATION RATE (test code = GFR) 11.4 70-80 L Units of measure = ml/min/1.73 m2 CREATININE (test code = CREAT) 3.9 mg/dL 0.6-1.3 H CALCIUM (test code = CA) 5.6 mg/dL 8.0-10.5 LL HEPATIC FUNCTION [id number] 04:23:00* Test Item Value Reference Range Interpretation Comme nts TOTAL PROTEIN (test code = PROT) 5.1 g/dL 6.4-8.2 L ALBUMIN (test code = ALB) 2.30 g/dL 3.4-5.0 L BILIRUBIN TOTAL (test code = BILT) 0.2 MG/DL <1.5 N BILIRUBIN DIRECT (test code = BILD) < 0.10 MG/DL 0.0-0.30 N BILIRUBIN INDIRECT (test cod e = BILIND) 0.10 MG/DL SGOT/AST (test code = AST) 7 IUnit/L 15-37 L SGPT/ALT (test code = ALT) 12 IUnit/L 15-65 L ALKALINE PHOSPHATASE TOTAL ( test code = ALKP) 39 IUnit/L 20-125 N [id number] 04:23:00* Test Item Value Reference Range Interpretation Comme nts LIPASE (test code = LIP) 139 IUnit/L 73-393 N [id number] 04:23:00* Test Item Value Reference Range Interpretation Comme nts MAGNESIUM (test code = MAG) 0.90 mg/dL 1.8-2.4 LL TSH REFLEX TO [id number] 04:23:00* Test Item Value Reference Range Interpretation Comme nts TSH REFLEX TO FT4 (test code = TSHREFLEX) 0.68 IU/mL 0.42-5.47 N [id number] 04:23:00* Test Item Value Reference Range Interpretation Comme nts TROPONIN-I (test code = TROPI) 0.029 ng/mL 0.000-0.045 N Negative: <= 0.0 45 Positive: >= 0.046 Correlation with serial results, other cardiac markers andclinical findings is necessary to determine the clinicalsignificance of this result. Results using different methodologies should not be comparedto one another as quantitative results may vary by method. CBC W/AUTO [id number] 04:22:00* Test Item Value Reference Range Interpretation Comme nts WHITE BLOOD CELL (test code = WBC) 22.50 x10 3/uL 4.5-11.0 H RED BLOOD CELL (test code = RBC) 4.48 x10 6/uL 3.54-5.02 N HEMOGLOBIN (test code = HGB) 13.5 g/dL 11.0-15.0 N HEMATOCRIT (test code = HCT) 44.2 % 33.0-45.0 N MEAN CELL VOLUME (test code = MCV) 98.7 fL 81.0-99.0 N MEAN CELL HGB (test code = MCH) 30.1 pg 27.0-33.0 N MEAN CELL HGB CONCETRATION (test code = MCHC) 30.5 g/dL 33.0-37.0 L RED CELL DISTRIBUTION WIDTH CV (test code = RDW) 13.4 % 11.5-14.5 N RED CELL DISTRIBUTION WIDTH SD (test code = RDW-SD) 49.3 fL 37.0-54.0 N PLATELET COUNT (test code = PLT) 331 x10 3/uL 150-400 N MEAN PLATELET VOLUME (test code = MPV) 12.1 fL 7.0-9.0 H MANUAL DIFF REQUIRED (test code = MDIFF) YES WBC [id number] 04:22:00* Test Item Value Reference Range Interpretation Comme nts SEGMENTED NEUTROPHILS (test code = SEG) 90.9 % 37-69 H LYMPHOCYTE (test code = LYMPH) 4.6 % 23-55 L MONOCYTE (test code = MON) 3.6 % 0-10 N MYELOCYTE (test code = MYELO) 0.9 % 0.0-0.0 H POIKILOCYTOSIS (test code = POIK) 2+ PLATELET ESTIMATE (test code = PLTEST) Adequate THOUSAND ADEQUATE PLATELET MORPHOLOGY (test code = PLTMORPH) LARGE PLATELETS CBC W/AUTO [id number] 04:19:00* Test Item Value Reference Range Interpretation Comme nts WHITE BLOOD CELL (test code = WBC) 22.50 x10 3/uL 4.5-11.0 H RED BLOOD CELL (test code = RBC) 4.48 x10 6/uL 3.54-5.02 N HEMOGLOBIN (test code = HGB) 13.5 g/dL 11.0-15.0 N HEMATOCRIT (test code = HCT) 44.2 % 33.0-45.0 N MEAN CELL VOLUME (test code = MCV) 98.7 fL 81.0-99.0 N MEAN CELL HGB (test code = MCH) 30.1 pg 27.0-33.0 N MEAN CELL HGB CONCETRATION (test code = MCHC) 30.5 g/dL 33.0-37.0 L RED CELL DISTRIBUTION WIDTH CV (test code = RDW) 13.4 % 11.5-14.5 N RED CELL DISTRIBUTION WIDTH SD (test code = RDW-SD) 49.3 fL 37.0-54.0 N PLATELET COUNT (test code = PLT) 331 x10 3/uL 150-400 N MEAN PLATELET VOLUME (test code = MPV) 12.1 fL 7.0-9.0 H MANUAL DIFF REQUIRED (test code = MDIFF) YES WBC [id number] 04:19:00* Test Item Value Reference Range Interpretation Comme nts ANISOCYTOSIS (test code = ANISO) PLATELET ESTIMATE (test code = PLTEST) THOUSAND ADEQUATE BASIC METABOLIC [id number] 04:19:00* Test Item Value Reference Range Interpretation Comme nts SODIUM (test code = NA) 144 mEq/L 134-147 N POTASSIUM (test code = K) 3.2 mEq/L 3.4-5.0 L CHLORIDE (test code = CL) 114 mEq/L 100-108 H CARBON DIOXIDE (test code = CO2) 4 mEq/L 21-33 L ANION GAP (test code = GAP) 29 0-20 H GLUCOSE (test code = GLU) 100 mg/dL 70-110 N BLOOD UREA NITROGEN (test code = BUN) 69 mg/dL 7-18 H GLOMERULAR FILTRATION RATE (test code = GFR) 11.4 70-80 L Units of measure = ml/min/1.73 m2 CREATININE (test code = CREAT) 3.9 mg/dL 0.6-1.3 H CALCIUM (test code = CA) 5.6 mg/dL 8.0-10.5 LL HEPATIC FUNCTION [id number] 04:19:00* Test Item Value Reference Range Interpretation Comme nts TOTAL PROTEIN (test code = PROT) 5.1 g/dL 6.4-8.2 L ALBUMIN (test code = ALB) 2.30 g/dL 3.4-5.0 L BILIRUBIN TOTAL (test code = BILT) 0.2 MG/DL <1.5 N BILIRUBIN DIRECT (test code = BILD) < 0.10 MG/DL 0.0-0.30 N BILIRUBIN INDIRECT (test cod e = BILIND) 0.10 MG/DL SGOT/AST (test code = AST) 7 IUnit/L 15-37 L SGPT/ALT (test code = ALT) 12 IUnit/L 15-65 L ALKALINE PHOSPHATASE TOTAL ( test code = ALKP) 39 IUnit/L 20-125 N [id number] 04:19:00* Test Item Value Reference Range Interpretation Comme nts LIPASE (test code = LIP) 139 IUnit/L 73-393 N [id number] 04:19:00* Test Item Value Reference Range Interpretation Comme nts MAGNESIUM (test code = MAG) 0.90 mg/dL 1.8-2.4 LL TSH REFLEX TO [id number] 04:19:00* Test Item Value Reference Range Interpretation Comme nts TSH REFLEX TO FT4 (test code = TSHREFLEX) IU/mL 0.42-5.47 [id number] 04:19:00* Test Item Value Reference Range Interpretation Comme nts TROPONIN-I (test code = TROPI) 0.029 ng/mL 0.000-0.045 N Negative: <= 0.0 45 Positive: >= 0.046 Correlation with serial results, other cardiac markers andclinical findings is necessary to determine the clinicalsignificance of this result. Results using different methodologies should not be comparedto one another as quantitative results may vary by method. CBC W/AUTO [id number] 04:19:00* Test Item Value Reference Range Interpretation Comme nts WHITE BLOOD CELL (test code = WBC) 22.50 x10 3/uL 4.5-11.0 H RED BLOOD CELL (test code = RBC) 4.48 x10 6/uL 3.54-5.02 N HEMOGLOBIN (test code = HGB) 13.5 g/dL 11.0-15.0 N HEMATOCRIT (test code = HCT) 44.2 % 33.0-45.0 N MEAN CELL VOLUME (test code = MCV) 98.7 fL 81.0-99.0 N MEAN CELL HGB (test code = MCH) 30.1 pg 27.0-33.0 N MEAN CELL HGB CONCETRATION (test code = MCHC) 30.5 g/dL 33.0-37.0 L RED CELL DISTRIBUTION WIDTH CV (test code = RDW) 13.4 % 11.5-14.5 N RED CELL DISTRIBUTION WIDTH SD (test code = RDW-SD) 49.3 fL 37.0-54.0 N PLATELET COUNT (test code = PLT) 331 x10 3/uL 150-400 N MEAN PLATELET VOLUME (test code = MPV) 12.1 fL 7.0-9.0 H MANUAL DIFF REQUIRED (test code = MDIFF) YES WBC [id number] 04:19:00* Test Item Value Reference Range Interpretation Comme nts ANISOCYTOSIS (test code = ANISO) PLATELET ESTIMATE (test code = PLTEST) THOUSAND ADEQUATE - XR CHEST 1 [id number] 04:10:00FAX: Facundo Rivas MD [phone] [place]: St: PRE Name: MAC AGUSTIN [facility] [place] : 1947 Age/S:72/F [address] [place] [address] Unit #: [id number] Loc: G[address] [place] [address] Phys: Facundo Phan MD Acct: [id number] Dis Date: Status: PRE ER PHONE #: [phone] Exam Date: 09/26/2019404 FAX #: [phone] Reason: SOB EXAMS: CPT CODE: [id number] XR CHEST 1 V 41922 Study: - XR CHEST 1 V 09/26/2019 3:41 AM Patient Name: MAC AGUSTIN MR: [id number] : 1947; Age: 72 years y/o Female Ordering Physician: Facundo Phan MD Clinical Indication: Shortness of breath. Comparison: None FINDINGS LUNGS: The hyperinflated lungs are clear consolidation, pleural effusion, and pneumotho rax. Right paratracheal opacity likely represents the innominate vessels. HEART AND MEDIASTINUM: Normal size heart. LINES: None. OSSEOUS STRUCTURES: No fracture, dislocation, or suspicious focal osseous lesion. OTHER: Mildly dilated gas-filled stomach suspected beneath the left hemidiaphragm. Cholecystectomy clips in the right upper abdominal quadrant. IMPRESSION: Mildly hyperinflated, but clearlungs. Lucency beneath the left hemidiaphragm likely related to a mildly dilated gas-filled stomach. An upright view of the abdomen would be confirmatory and better exclude pneumoperitoneum. SL: TPAINTER-H at 0410 Reported and signed by: Amadeo Edward M.D. PAGE 1 Signed Report (CONTINUED) FAX: Facundo Rivas MD [phone] [place]: St: PRE -- Name: MAC AGUSTIN [facility] [place] : 1947 Age/S: 72/F [address] [place] [address] Blvd Unit #: [id number] Loc: G.ERS2 [place] [address] Phys: Facundo Phan MD Acct: [id number] Dis Date: Status: PRE ER PHONE #: [phone] Exam Date: 09/26/2019404 FAX #: [phone] Reason: SOB EXAMS: CPT CODE: [id number] XR CHEST 1 V 34402 (Continued) CC: Facundo Phan MD Technologist: RT Eladia(R) Trnkarina Date/Time/By: 09/26/2019 (0410) : By: [email or web address] Orig Print D/T: S: 09/26/2019 (0413) PAGE 2 Signed Report PROTHROMBIN [id number] 04:09:00* Test Item Value Reference Range Interpretation Comme nts PROTHROMBIN TIME PATIENT (test code = PTP) 11.7 SECONDS 9.3-12.9 N INTERNATIONAL NORMAL RATIO (test code = INR) 1.1 0.8-1.2 N TARGET INR BY INDICATION Indication INR1. Prophylaxis of venous thrombosis 2.0 - 3.0 (orthopedic surgery), Prophylaxis of venous thrombosis (other than high-risk surgery), Treatment of Deep Vein Thrombosis/Pulmonary Embolism, Prevention of systemic embolism - Tissue heart valves, Acute Myocardial Infarction (to prevent systemic embolism), Valvular heart disease, Atrial Fibrillation, Bileaflet mechanical valve in aortic position.2. Mechanical prosthetic valves (high risk), 2.5 - 3.5 Presence of Lupus Anticoagulant or Antiphospholipid Antibodies, Prevention of systemic embolism - Acute Myocardial Infarction (to prevent recurrent infarct). THROMBOPLASTIN TIME [id number] 04:09:00* Test Item Value Reference Range Interpretation Comme nts THROMBOPLASTIN TIME PARTIAL (test code = PTT) 22.2 Seconds 25.0-39.5 L Therapeutic Rang e: 50.4 - 88.3 Seconds Effective 09/25/2018 [id number] 04:00:00* Test Item Value Reference Range Interpretation Comme nts GLUBED (test code = GLUBED) 147 MG/DL 70-110 H Performed by cer tified egg breaking machine operator at [facility] CBC W/AUTO [id number] 04:00:00* Test Item Value Reference Range Interpretation Comme nts WHITE BLOOD CELL (test code = WBC) 22.50 x10 3/uL 4.5-11.0 H RED BLOOD CELL (test code = RBC) 4.48 x10 6/uL 3.54-5.02 N HEMOGLOBIN (test code = HGB) 13.5 g/dL 11.0-15.0 N HEMATOCRIT (test code = HCT) 44.2 % 33.0-45.0 N MEAN CELL VOLUME (test code = MCV) 98.7 fL 81.0-99.0 N MEAN CELL HGB (test code = MCH) 30.1 pg 27.0-33.0 N MEAN CELL HGB CONCETRATION (test code = MCHC) 30.5 g/dL 33.0-37.0 L RED CELL DISTRIBUTION WIDTH CV (test code = RDW) 13.4 % 11.5-14.5 N RED CELL DISTRIBUTION WIDTH SD (test code = RDW-SD) 49.3 fL 37.0-54.0 N PLATELET COUNT (test code = PLT) 331 x10 3/uL 150-400 N MEAN PLATELET VOLUME (test code = MPV) 12.1 fL 7.0-9.0 H NEUTROPHIL % (test code = NT%) % 56.0-77.0 LYMPHOCYTE % (test code = LY%) % 14.0-32.0 NEUTROPHIL # (test code = NT#) x10 3/uL 2.0-7.6 LYMPHOCYTE # (test code = LY#) x10 3/uL 1.0-3.8 MANUAL DIFF REQUIRED (test code = MDIFF) BLOOD [id number] 07:52:00* Test Item Value Reference Range Interpretation Comme nts Report Text (test code = Report Text) [facility] 2018-11-12 846 Report Text7 (test code = Report Text7) BLOOD CULTURES HELD FOR 5 DAYS BEFORE FINAL Report Text8 (test code = Report Text8) Report Text9 (test code = Report Text9) [employer] SUGGESTS THAT Report Text10 (test code = Report Text10) MOST CASES OF BACTEREMIA ARE DETECTED BY USING Report Text11 (test code = Report Text11) THREE SETS OF SEPARATELY COLLECTED BLOOD CULTURES. Report Text12 (test code = Report Text12) [facility] 2018-11-12 Report Text13 (test code = Report Text13) CONVERSELY, A SINGLE BLOOD CULTURE MAY MISS Report Text14 (test code = Report Text14) INTERMITTENTLY OCCURRING BACTEREMIA AND MAKE Report Text15 (test code = Report Text15) IT DIFFICULT TO INTERPRET THE CLINICAL Report Text16 (test code = Report Text16) SIGNIFICANCE OF CERTAIN ISOLATED ORGANISMS. Report Text17 (test code = Report Text17) Report Text18 (test code = Report Text18) [facility] 2018-11-12 Report Text19 (test code = Report Text19) DRAWN FROM RIGHT ANTICUBITAL VEIN Report Text20 (test code = Report Text20) Report Text21 (test code = Report Text21) [facility] 2018-11-13 626 Report Text22 (test code = Report Text22) NO GROWTH WITHIN 1 DAY Report Text23 (test code = Report Text23) PRELIMINARY REPORT Report Text24 (test code = Report Text24) Report Text25 (test code = Report Text25) G 2018-11-14 905 Report Text26 (test code = Report Text26) NO GROWTH WITHIN 2 DAYS Report Text27 (test code = Report Text27) PRELIMINARY REPORT Report Text28 (test code = Report Text28) Report Text29 (test code = Report Text29) B 2018-11-17 752 Report Text30 (test code = Report Text30) NO GROWTH WITHIN 5 DAYS Report Text31 (test code = Report Text31) FINAL REPORT BLOOD [id number] 07:52:00* Test Item Value Reference Range Interpretation Comme nts Report Text (test code = Report Text) [facility] 2018-11-12 847 Report Text7 (test code = Report Text7) BLOOD CULTURES HELD FOR 5 DAYS BEFORE FINAL Report Text8 (test code = Report Text8) Report Text9 (test code = Report Text9) [place] SUGGESTS THAT Report Text10 (test code = Report Text10) MOST CASES OF BACTEREMIA ARE DETECTED BY USING Report Text11 (test code = Report Text11) THREE SETS OF SEPARATELY COLLECTED BLOOD CULTURES. Report Text12 (test code = Report Text12) [facility] 2018-11-12 848 Report Text13 (test code = Report Text13) CONVERSELY, A SINGLE BLOOD CULTURE MAY MISS Report Text14 (test code = Report Text14) INTERMITTENTLY OCCURRING BACTEREMIA AND MAKE Report Text15 (test code = Report Text15) IT DIFFICULT TO INTERPRET THE CLINICAL Report Text16 (test code = Report Text16) SIGNIFICANCE OF CERTAIN ISOLATED ORGANISMS. Report Text17 (test code = Report Text17) Report Text18 (test code = Report Text18) [facility] 2018-11-12 849 Report Text19 (test code = Report Text19) COLLECTION SITE UNSPECIFIED Report Text20 (test code = Report Text20) [facility] 2018-11-13 626 Report Text21 (test code = Report Text21) NO GROWTH WITHIN 1 DAY Report Text22 (test code = Report Text22) PRELIMINARY REPORT Report Text23 (test code = Report Text23) Report Text24 (test code = Report Text24) [facility] 2018-11-14 905 Report Text25 (test code = Report Text25) NO GROWTH WITHIN 2 DAYS Report Text26 (test code = Report Text26) PRELIMINARY REPORT Report Text27 (test code = Report Text27) Report Text28 (test code = Report Text28) [facility] 2018-11-17 752 Report Text29 (test code = Report Text29) NO GROWTH WITHIN 5 DAYS Report Text30 (test code = Report Text30) FINAL REPORT HEPATITIS C ANTIBODY [id number] 08:35:00* Test Item Value Reference Range Interpretation Comme nts SCRN HCV (test code = SCRN HCV) NEGATIVE NEGATIVE Hepatitis C Anti body test is for screening purposes only. All reactives will be confirmed by additional testing. ER SCREEN FOR HIV 08:35:00* Test Item Value Reference Range Interpretation Comme nts HIV 1/2 AB (test code = SCRN HIV) NEGATIVE NEGATIVE This test is us ed for SCREENING purposes only. All reactive results are prelimenary and confirmation results will follow. [id number] 08:29:00* Test Item Value Reference Range Interpretation Comme nts GLUCOSE (test code = URGLU) NEGATIVE MG/DL NEG-100 BILIRUBN (test code = URBILI) NEGATIVE NEGATIVE KETONE (test code = URKET) TRACE MG/DL NEGATIVE BLOOD (test code = URBLD) NEGATIVE UR PH (test code = URPH) 5.0 5.0-7.5 PROTEIN (test code = URPRO) TRACE MG/DL NEGATIVE NITRITES (test code = URNIT) NEGATIVE NEGATIVE UROBILINGEN (test code = URURO) 0.2 EU/DL 0.2-1.0 LEUKOCYT (test code = URLEU) NEGATIVE NEGATIVE UA COLOR (test code = UA COLOR) YELLOW YELLOW CLARITY (test code = CLARITY) CLOUDY CLEAR SP GRAV (test code = URSPGRAV) 1.025 1.000-1.025 UAMICRO (test code = UAMICRO) YES WBC (test code = URWBC) 0 /HPF 0-5 RBC (test code = URRBC) 0 /HPF 0-2 CASTS (test code = CAST) 6 /LPF 0-3 H UR EPI (test code = EPI) 3 /LPF BACTERIA (test code = BACTERIA) NEGATIVE NONE CRYSTALS (test code = CRYSTALS) MODERATE /HPF NONE CRYSTYPE (test code = CRYSTYPE) URIC ACID INFLUENZA [id number] 08:21:00* Test Item Value Reference Range Interpretation Comme nts FLU A (test code = FLU A) NEGATIVE NEGATIVE FLU B (test code = FLU B) NEGATIVE NEGATIVE FLU INTERNAL POSITIVE CNTRL (test code = FLU IPC) PASS PASS INFLUENZA LOT # (test code = FLULOT) [id number] INFLUENZA EXPIRATION DATE (t est code = FLUEXP) 11-09-2020 ABDOMEN 2 [id number] 07:48:[address] [id number] IMAGING REPORTPatient Name: MAC HALL ADate of Service: [id number]: 73 Sex: F Order #: [id number] Room: [facility] 1945 X-Ray Number: [id number] Record Number: [id number] Hospital Number: [id number] Physician: Roseanne ORTIZ Physician: ASHLEY SALAS 2 VIEWS@0736 hours on 11/12/2018:CLINICAL HISTORY: Vomiting and diarrhea for 7 days; recent treatment forUTITECHNIQUE: Supine and erect views were obtainedFINDINGS: Gas pattern is nonspecific with air seen from the stomach to therectum.Moderate fecal residue is seen in the colon. There is no rectal andfraction.There are surgical clipsseen in the right upper quadrant.Impression: No acute changes are demonstrated.Electronically Signed By: Juan Degroot M.D., 11/12/2018 7:46 AMLegally authenticated by LISA Simms 2018-11-12 07:46:[id number] 07:38:00* Test Item Value Reference Range Interpretation Comme nts WBC (test code = WBC) 9.0 K/UL 3.5-10.9 RBC (test code = RBC) 5.16 M/UL 4.0-5.0 H HGB (test code = HGB) 14.9 G/DL 11.5-15.5 HCT (test code = HCT) 46.4 % 34-46 H MCV (test code = MCV) 89.9 FL 80-98 MCH (test code = MCH) 28.9 PG 28-32 MCHC (test code = MCHC) 32.1 G/DL 32.5-36.5 L RDW (test code = RDW) 12.8 % 11.5-14.5 PLT (test code = PLT) 331 K/UL 150-450 MPV (test code = MPV) 11.3 FL 7.4-10.4 H MANDIFF (test code = MANDIFF) NO SCAN (test code = SCAN) NO NEUT% (test code = NEUT%) 64.6 % 40-75 LYMPH% (test code = LYMPH%) 25.6 % 24-44 MONO% (test code = MONO%) 6.3 % 0-13 EOS% (test code = EOS%) 1.7 % 0-4 BASO % (test code = BASO%) 1.0 % 0-2 IG (test code = IG) 0 % 0-1 IG% (test code = IG%) 0.8 % 0-1 IG% = Metamyeloc ytes, Myelocytes, and Promyelocytes. (Immature neutrophils not including "bands".) > 3% IG indicates risk of sepsis NRBC% (test code = NRBC%) 0 /100 WBC ABS NEUT (test code = NEUT) 5.8 K/UL 1.2-7.2 [id number] 07:20:00* Test Item Value Reference Range Interpretation Comme nts LIPASE (test code = LIPA) 358 U/L 23-300 H LIVER [id number] 07:20:00* Test Item Value Reference Range Interpretation Comme nts TOTPROT (test code = TOTPROT) 8.2 G/DL 6.3-8.2 ALBUMIN (test code = ALBSERUM) 4.6 G/DL 3.5-5.0 BILITOT (test code = BILITOT) 0.5 MG/DL 0.2-1.3 BILIDIR (test code = BILIDIR) 0.3 MG/DL 0.0-0.4 AST (test code = AST) 18 U/L 15-46 PHOSALK (test code = PHOSALK) 99 U/L 38-126 ALT (test code = ALT) 26 U/L 13-69 ISTAT CHEM [id number] 06:45:00* Test Item Value Reference Range Interpretation Comme nts ISTATNA (test code = ISTATNA) 137 MMOL/L [...] code = ISTANGAP) 18 MMOL/L WHOLE BLOOD [id number] 21:25:00* Test Item Value Reference Range Interpretation Comme [facility] WHOLE BLOOD GLUCOSE (test co de = POC GLU) 178 MG/DL 70-99 [id number] 20:13:00* Test Item Value Reference Range Interpretation Comme nts WBC (test code = WBC) 17.8 K/UL 3.5-10.9 H RBC (test code = RBC) 4.92 M/UL 4.0-5.0 HGB (test code = HGB) 14.4 G/DL 11.5-15.5 HCT (test code = HCT) 45.0 % 34-46 MCV (test code = MCV) 91.5 FL 80-98 MCH (test code = MCH) 29.3 PG 28-32 MCHC (test code = MCHC) 32.0 G/DL 32.5-36.5 L RDW (test code = RDW) 13.2 % 11.5-14.5 PLT (test code = PLT) 305 K/UL 150-450 MPV (test code = MPV) 10.6 FL 7.4-10.4 H MANDIFF (test code = MANDIFF) NO SCAN (test code = SCAN) NO NEUT% (test code = NEUT%) 88.0 % 40-75 H LYMPH% (test code = LYMPH%) 7.2 % 24-44 L MONO% (test code = MONO%) 3.8 % 0-13 EOS% (test code = EOS%) 0.1 % 0-4 BASO % (test code = BASO%) 0.3 % 0-2 IG (test code = IG) 0 % 0-1 IG% (test code = IG%) 0.6 % 0-1 IG% = Metamyeloc ytes, Myelocytes, and Promyelocytes. (Immature neutrophils not including "bands".) > 3% IG indicates risk of sepsis NRBC% (test code = NRBC%) 0 /100 WBC ABS NEUT (test code = NEUT) 15.7 K/UL 1.2-7.2 H [id number] 19:51:00* Test Item Value Reference Range Interpretation Comme nts GLUCOSE (test code = URGLU) >=1000 MG/DL NEG-100 BILIRUBN (test code = URBILI) NEGATIVE NEGATIVE KETONE (test code = URKET) 15 MG/DL NEGATIVE BLOOD (test code = URBLD) NEGATIVE UR PH (test code = URPH) 5.0 5.0-7.5 PROTEIN (test code = URPRO) NEGATIVE MG/DL NEGATIVE NITRITES (test code = URNIT) NEGATIVE NEGATIVE UROBILINGEN (test code = URURO) 0.2 EU/DL 0.2-1.0 LEUKOCYT (test code = URLEU) NEGATIVE NEGATIVE UA COLOR (test code = UA COLOR) YELLOW YELLOW CLARITY (test code = CLARITY) CLEAR CLEAR SP GRAV (test code = URSPGRAV) 1.023 1.000-1.025 UAMICRO (test code = UAMICRO) NO WHOLE BLOOD [id number] 19:40:00* Test Item Value Reference Range Interpretation Comme nts WHOLE BLOOD GLUCOSE (test co de = POC GLU) 253 MG/DL 70-99 H ISTAT CHEM [id number] 18:15:00* Test Item Value Reference Range Interpretation Comme nts ISTATNA (test code = ISTATNA) 142 MMOL/L [...] = ISTANGAP) 17 MMOL/L CT HEAD W/O [id number] 18:14:[address] [address]CJKPFWMYPP IMAGING REPORTPatient Name: MAC HALL ADate of Service: [id number]: 73 Sex: F Order #: [id number] Room: [facility]: 1945 X-Ray Number: [id number] Record Number: [id number] Hospital Number: [id number] Physician: KIMBERLY HIGGINS TANOrdering Physician: IHSAN SALAS HEAD:HISTORY: Mental status changes.TECHNIQUE: Unenhanced CT axial images of the brain with sagittal andcoronal reformatted images.ThisCT exam was performed using one or more of the following dosereduction techniques: Automated exposure control, adjustment of the MAand/or KV according to patient size or use of iterative reconstructiontechnique.FINDINGS: CT head images demonstrate no acute appearing intracranialabnormalities. Thereare chronic appearing microvascular ischemic changespresent. There is mild cortical atrophy seen. The ventricles are symmetricand midline. The fuentes-white matter differentiation is intact. The calvariumappears intact.IMPRESSION:No acute appearing intracranial abnormalities.Electronically Signed By: Ed Cummings M.D., 10/20/2018 6:12 PMLegally authenticated by EDER Craft 2018-10-20 18:12:33CHEST 1 VIEW [id number] 18:00:00BAPT98 Jones StreetIAGNOSTIC IMAGING REPORTPatient Name: Jd HALL of Service: [id number]: 73 Sex: F Order #: [id number] Room: [facility]: 1945 X-Ray Number: [id number] Record Number: [id number] Hospital Number: [id number] Physician: KIMBERLY HIGGINS TANOrdering Physician: Blanca SALAS.10/20/2018 5:56 PMHistory: Mental status changes.Technique: Single AP chest projection.Findings: Single chest projection demonstrates normal heart size and clearlungs. The osseous structures appear intact.Impression:No acute- appearing cardiopulmonary abnormalities.Electronically Signed By: Ed Cummings M.D., 10/20/2018 5:58 PMLegally authenticated by EDER Craft 2018-10-20 17:58:21[O] Hemoglobin A1c (in office)2018-08-09 16:40:00* Test Item Value Reference Range Interpretation Comme nts HEMOGLOBIN A1c (test code = 4548-4) 9.3 [facility][Q] URINALYSIS, COMPLETE W/RFL CULTURE (REFL)2018-08-02 15:24:00* Test Item Value Reference Range Interpretation Comme nts COLOR; Normal (test code = 5778-6) YELLOW YELLOW N APPEARANCE (test code = APPEARANCE) CLEAR CLEAR N SPECIFIC GRAVITY; Normal (te st code = 2965-2) 1.020 1.001-1.035 N PH; Normal (test code = 2756-5) 6.0 5.0-8.0 N GLUCOSE; Abnormal (test code = 1547-9) 3+ NEGATIVE A BILIRUBIN; Normal (test code = 49588-1) NEGATIVE NEGATIVE N KETONES; Normal (test code = 38187-4) NEGATIVE NEGATIVE N OCCULT BLOOD; Normal (test c ode = 44261-4) NEGATIVE NEGATIVE N PROTEIN; Normal (test code = 58019-9) NEGATIVE NEGATIVE N NITRITE (test code = NITRITE) NEGATIVE NEGATIVE N LEUKOCYTE ESTERASE (test cod e = LEUKOCYTE ESTERASE) NEGATIVE NEGATIVE N WBC; Normal (test code = 6690-2) 0-5 < OR = 5 N RBC; Normal (test code = 789-8) NONE SEEN < OR = 2 N SQUAMOUS EPITHELIAL CELLS; N ormal (test code = 00643-4) NONE SEEN < OR = 5 N BACTERIA; Normal (test code = 630-4) NONE SEEN NONE SEEN N HYALINE CAST; Normal (test c ode = 31559-2) NONE SEEN NONE SEEN N [facility][Q] REFLEXIVE URINE [id number] 15:24:00* Test Item Value Reference Range Interpretation Comme nts REFLEXIVE URINE CULTURE (test code = REFLEXIVE URINE CULTURE) NO CULTURE INDICATED [facility][O] Urine Dipstick (In Office)2018-07-09 16:23:00* Test Item Value Reference Range Interpretation Comme nts Glucose (test code = Glucose) 1000 LEUKOCYTES (test code = LEUKOCYTES) negative NITRITE (test code = 67441-2) negative UROBILINOGEN (test code = 53536-9) 0.2 PROTEIN (test code = 09559-8) negative pH (test code = pH) 5.0 URINE BLOOD (test code = 86311-2) trace SPECIFIC GRAVITY (test code = 2965-2) 1.020 KETONES (test code = 50150-5) 40 BILIRUBIN (test code = 59894-9) negative [facility]] LIPID [id number] 14:55:00* Test Item Value Reference Range Interpretation Comme nts CHOLESTEROL, TOTAL; Above High Threshold (test code = 2093-3) 298 mg/dl <200 HDL CHOLESTEROL; Below Low Threshold (test code = 2085-9) 48 mg/dl >50 TRIGLYCERIDES; Above High Threshold (test code = 2571-8) 350 mg/dl <150 LDL-CHOLESTEROL; Above High Threshold (test code = 91738-3) 191 {MG/DL JENNIFER} LDL-C levels > or = 190 mg/dL may indicate familial hypercholesterolemia (FH). Clinical assessment and measurement of blood lipid levels should be considered for all first degree relatives of patients with an FH diagnosis. For questions about testing for familialhypercholesterolem ia, please call [facility] at [phone].[employer].INFO.Fanta Salcedo, et al. J National Lipid Association Recommendations for Patient-Centered Management of Dyslipidemia: Part 1 Journal of Clinical Lipidology 2015;9(2), 129-169.Reference range: <100 Desirable range <100 mg/dL for primary prevention; <70 mg/dL for patients with CHD or diabetic patients with > or = 2 CHD risk factors. LDL-C is now calculated using the Ronni-Berry calculation, which is a validated novel method providing better accuracy than the Friedewald equation in the estimation of LDL-C. Ronni SS et al. VANESSA. 2013;310(19): 6552-9864 (http://[employer]/faq/FSH351) CHOL/HDLC RATIO (test code = CHOL/HDLC RATIO) 6.2 {CALC} <5.0 NON HDL CHOLESTEROL (test code = NON HDL CHOLESTEROL) 250 {MG/DL JENNIFER} <130 Non-HDL level > or = 220 is very high and may indicate genetic familial hypercholesterolemia (FH). Clinical assessment and measurement of blood lipid levels should be considered for all first-degree relatives of patients with an FH diagnosis. For patients with diabetes plus 1 major ASCVD risk factor, treating to a non-HDL-C goal of <100 mg/dL (LDL-C of <70 mg/dL) is considered a therapeutic option. [facility]] MICROALBUMIN, RANDOM URINE (W/CREATININE)2018-07-09 14:55:00 * Test Item Value Reference Range Interpretation Comme nts CREATININE, RANDOM URINE (test code = CREATININE, RANDOM URINE) 75 mg/dl 20-275 N MICROALBUMIN (test code = MICROALBUMIN) 2.3 mg/dl N Reference RangeN ot established MICROALBUMIN/CREATI NINE RATIO, RANDOM URINE (test code = MICROALBUMIN/CREATI NINE RATIO, RANDOM URINE) 31 {MCG/MG CRE} <30 The ADA defines abnormalities in albuminexcretion as follows: Category Result (mcg/mg creatinine) Normal <30Microalbuminuria 30-299 Clinical albuminuria > OR = 300 The ADA recommends that at least two of threespecimens collected within a 3-6 month period beabnormal before considering a patient to bewithin a diagnostic category. [facility]] CMP [id number] 14:55:00* Test Item Value Reference Range Interpretation Comme nts GLUCOSE; Above High Threshold (test code = 1547-9) 456 mg/dl 65-99 Verified by repe at analysis. Fasting reference interval For someone without known diabetes, a glucosevalue >125 mg/dL indicates that they may havediabetes and this should be confirmed with afollow-up test. UREA NITROGEN (BUN) (test code = UREA NITROGEN (BUN)) 16 mg/dl 7-25 N CREATININE (test code = CREATININE) 0.92 mg/dl 0.60-0.93 N For patients >49 years of age, the reference limitfor Creatinine is approximately 13% higher for peopleidentified as -Eritre[place]. eGFR NON- (test code = eGFR NON-) 63 {ML/MIN/1.7} > OR = 60 N eGFR (test code = eGFR ) 73 {ML/MIN/1.7} > OR = 60 N BUN/CREATININE RATIO (test code = BUN/CREATININE RATIO) NOT APPLICABLE 6-22 SODIUM (test code = SODIUM) 133 mmol/L 135-146 POTASSIUM (test code = POTASSIUM) 4.5 mmol/L 3.5-5.3 N CHLORIDE (test code = CHLORIDE) 94 mmol/L 98-110 CARBON DIOXIDE (test code = CARBON DIOXIDE) 24 mmol/L 20-32 N CALCIUM (test code = CALCIUM) 10.5 mg/dl 8.6-10.4 PROTEIN, TOTAL (test code = PROTEIN, TOTAL) 7.6 g/dl 6.1-8.1 N ALBUMIN (test code = ALBUMIN) 4.2 g/dl 3.6-5.1 N GLOBULIN (test code = GLOBULIN) 3.4 {G/DL CALC} 1.9-3.7 N ALBUMIN/GLOBULIN RATIO (test code = ALBUMIN/GLOBULIN RATIO) 1.2 {CALC} 1.0-2.5 N BILIRUBIN, TOTAL; Normal (test code = 20894-1) 0.5 mg/dl 0.2-1.2 N ALKALINE PHSPHATASE (test code = ALKALINE PHSPHATASE) 76 u/l 33-130 N AST; Normal (test code = 1916-6) 13 u/l 10-35 N ALT; Normal (test code = 1742-6) 23 u/l 6-29 N [facility]] CBC (INCLUDES DIFF/PLT)2018-07-09 14:55:00* Test Item Value Reference Range Interpretation Comme nts WHITE BLOOD CELL COUNT (test code = WHITE BLOOD CELL COUNT) 10.0 {Thousand/u} 3.8-10.8 N RED BLOOD CELL COUNT (test code = RED BLOOD CELL COUNT) 5.42 {Million/uL} 3.80-5.10 HEMAGLOBIN; Above High Threshold (test code = 66812-3) 16.0 g/dl 11.7-15.5 HEMATOCRIT; Above High Threshold (test code = 4544-3) 48.4 % 35.0-45.0 MCV; Normal (test code = 787-2) 89.3 fL 80.0-100.0 N MCHC; Normal (test code = 70419-8) 33.1 g/dl 32.0-36.0 N RDW; Normal (test code = 788-0) 13.0 % 11.0-15.0 N PLATELET COUNT; Normal (test code = 777-3) 334 {Thousand/u} 140-400 N MPV; Normal (test code = 48907-2) 11.9 fL 7.5-12.5 N ABSOLUTE NEUTROPHILS (test code = ABSOLUTE NEUTROPHILS) 5740 {cells/uL} 8884-9382 N ABSOLUTE LYMPHOCYTES (test code = ABSOLUTE LYMPHOCYTES) 3240 {cells/uL} 850-3900 N ABSOLUTE MONOCYTES (test code = ABSOLUTE MONOCYTES) 700 {cells/uL} 200-950 N ABSOLUTE EOSINOPHILS (test code = ABSOLUTE EOSINOPHILS) 220 {cells/uL} 15-500 N ABSOLUTE BASOPHILS (test code = ABSOLUTE BASOPHILS) 100 {cells/uL} 0-200 N NEUTROPHILS (test code = NEUTROPHILS) 57.4 % N LYMPHOCYTES (test code = LYMPHOCYTES) 32.4 % N MONOCYTES; Normal (test code = 07631-8) 7.0 % N EOSINOPHILS; Normal (test code = 09399-3) 2.2 % N BASOPHILS; Normal (test code = 16373-7) 1.0 % N [facility]] TSH, 3RD [id number] 14:55:00* Test Item Value Reference Range Interpretation Comme nts TSH; Normal (test code = 80836-0) 1.49 {MIU/L} 0.40-4.50 N [facility]] CULTURE, URINE, [id number] 14:55:00* Test Item Value Reference Range Interpretation Comme nts CULTURE (test code = CULTURE) See Comment A CULTURE, URINE, ROUTINE MICRO NUMBER: [id number] TEST STATUS: FINAL SPECIMEN SOURCE: URINE SPECIMEN QUALITY: ADEQUATE RESULT: 50,000-100,000 CFU/mL of Group B Streptococcus isolated Beta-hemolytic Streptococci are predictably susceptible to penicillin and other beta-lactams. Susceptibility testing not routinely performed. COMMENT: Erythromycin and clindamycin are not recommended for treatment of urinary tract infections, but clindamycin may be useful for treatment of rectovaginal colonization or infection. COMMENT: Additional organism(s) less than 10,000 CFU/mL isolated. These organisms, commonly found on external and internal genitalia, are considered colonizers. No further testing performed. [facility][O] Hemoglobin A1c (in office)2018-07-09 13:38:00* Test Item Value Reference Range Interpretation Comme nts HEMOGLOBIN A1c (test code = 4548-4) 12.5 [facility]] CULTURE, URINE, [id number] 00:00:00* Test Item Value Reference Range Interpretation Comme nts CULTURE (test code = CULTURE) See Comment A CULTURE, URINE, ROUTINE MICRO NUMBER: [id number] TEST STATUS: FINAL SPECIMEN SOURCE: URINE SPECIMEN QUALITY: ADEQUATE RESULT: 50,000-100,000 CFU/mL of Group B Streptococcus isolated Beta-hemolytic Streptococci are predictably susceptible to penicillin and other beta-lactams. Susceptibility testing not routinely performed. COMMENT: Erythromycin and clindamycin are not recommended for treatment of urinary tract infections, but clindamycin may be useful for treatment of rectovaginal colonization or infection. COMMENT: Additional organism(s) less than 10,000 CFU/mL isolated. These organisms, commonly found on external and internal genitalia, are considered colonizers. No further testing performed. [facility] Notes Date/Time Note Provider Source 2019-10-12 11:01:00 [id number] [id number]:01:00 [facility]ospitalist Discharge SummaryREPORT#:[id number] REPORT STATUS: SignedDATE:10/12/19 TIME: 1101 PATIENT: MAC AGUSTIN UNIT #: [id number]#: [id number] [address] [birth year] AGE: 74 SEX: F ATTEND: Joel Myers [facility] AUTHOR: Nickie Ha MD * ALL edits or amendments must be made on the electronic/computer document * PCP PCPPCP:PCP: No Primary or Family Physician Discharge to: correction General InformationProblem List/A P: 1. Acute renal failure 2. Physical deconditioning 3. Hypomagnesemia 4. Lactic acidosis 5. Acute hypoactive delirium due to another medical condition Date of admission:Observation Start Date: Date of admission: 09/26/19 Discharge date: 10/12/19Hospital course:Severe lactic acidosisSevere metabolic acidosisAcute renal failureHypocalcemiaHypomagnesemia?Septic shock vs lactic acidosis from metforminDehydrationHypothermiaDMHTNDementia with behavior disturbancepersistent hypoglycemia Plan:Ms. Agustin is a 74 yo female with non-specific symptoms of not feeling well, poor appetite that was found to have abnormal labs at [facility], sent to ED forevaluation. In the ED, found to have severe lactic and metabolic acidosis. Discussed at length with ICU (Dr. Lin) and Renal (Dr Aguilar).Given her de [facility] imaging, urinalysis, CXR are unremarkable for this level of acidosis, perhaps this acidosis is secondary to metformin. Plan is todialyize patient to look for improvement. If no improvement, perhaps this is ischemic bowel. Will continue empiric Zosyn.- Zosyn- blood cultures pending- hold home meds- Accuchecks and SSI- replace electrolytes- heparin for DVT prophylaxsis09/26Improved lactic acidosis with dialysis. Given improvement, likely this was lactic acidosis secondary to metformin.WBC persistently elevated at 19, will continue broad spectrum abx for now- blood cultures negative- UA unremarkable- monitor CBC for downtrend- if WBC remains elevated with mention of possible neoplasm in stomach, would consider work up however, this patient has dementia with lowquality of life, not a good candidate for work up/treatment.BS well controlled with current insulin scheduleCheck labs in am18Lactate remains normal, continue to hold metforminPt noted return of anion gap acidosis with ketonuria. Discussed with Dr. Aguilar,nephrology. Pt placed on DKA protocol to close anion gap, onD10 for glucose needs while on insulin drip.BNP elevated with clear lungs, no dependent edema, decreased O2 requirement. Give one dose of Lasix 40 mg IV, check CXR in the am, monitorfor volume overload while getting DKA fluids.WBC decreased to 15, continue abx for now, d/c after 5 daysSome blood noted in stool, CT with signs of chronic inflammation. Given her dementia, unsure that patient would tolerate bowel prep. GIconsulted. Appreciate input on area in stomach with possible neoplasm.Check labs in am4/19Anion gap closed, off insulin dripElevated lactate, monitorCXR shows severe vascular congestion and pleural fluid, likely related to fluidsgiven for lactic acidosis and metabolic acidosis, pt not in respiratorydistress- Lasix 60 mg IV q8 iniated by nephrology- D10 at 30 cc/hr to maintain blood sugarWBC decreased to 13, d/c abx after 5 daysColon with chronic inflammation, no work up per GIWill need EGD to evaluate abnormality in gastric wall once improvedCheck labs in am4/20Off insulin dripCXR reviewedCont lasixWBC count came down to 10.5On zosynTransfer to the floordw RN, TRUCK DRIVER TEAMSTER, consultantsCXR and telemetry personally reviewedFurther recs per clinical hewbmm9710/01/2019- blood sugars stable on D10W. will switch to D5W- consider endo eval if persistently hypoglycemic- monitor renal function closely- off antibiotics- await stool samples. no diarrhea overnight- PT/OT- start mobilizing. rehab eval- on IV PPI. ? switch to po - will defer to GI- ? need for EGD10/02/2019- Back on Heparin SQ- Megace started.- switched to po PPI.- Blood sugars up. will d/c IV fluids at this time and monitor blood sugars closely- observe off antibiotics- mobilize- likely back to SNF in the next 1-2 days10/03/2019- will restart IV fluids due to worsening renal function- clinically dry. not taking in any signficant food or liquids- follow creatinine closelly- continue Megace- anticipate back to SNF once renal function more stable- Heparin for VTE10/04/2019- follow renal function- on IVF. renal increased rate- watch for volume overload- off antibiotics- continue Megace- on Btzpdfr5610/05/2019- follow creatinine. continue IVF for now- Heparing for VTE- renal following- d/w patient's nurse.- calorie klahwaef99/26/2020- patient very short of breath. suspicious for volume overload- will stop IVF- give 1 dose of lasix- check CXR and BNP- continue Megace- BP more stable on Midodrine- continue to mobilize- heparin for VTE- daughter voiced concern about patient's exposure to COVID at the facility she came from. Will test for COVID-19010/07/2019- Rapid COVID and PCR test negative- transfer out of [facility]- replete K+ and Mg+- off IV fluids.- renal function phprbpkof45/28/2020- pt reports feeling ok today, but is refusing all nursing care and refuses lab draw today- blood sugars adequately controlled for now, continue to hold metformin- appetite improved, monitor blood sugars closely, may need to start SSI as patient starts to eat more- nephrology following, continue to monitor renal function, HD per nephrology- d/c planning: reutrn to SNF when medically sxqiuy3110/09/2019- cooperative with care today, feeling OK- blood sugars elevated yesterday PM, continue sliding scale insulin and monitorfor now- Cr stable at 2.5 today, continue to monitor renal function, HD per nephrology- encourage oral intake- k 3.3 today, replacement ordered per renal, mag replacement ordered per renal10/10/2019- blood sugars fluctuating. will be very careful in giving long acting agents gian dietary intake is erratic which will make her prone to develophypoglycemia- continue sliding scale- monitor renal function closely. renal service following- replete lytes- back to SNF/HI once renal function stabilizestotal time spent with evaluating patient/data as well as providing education/counselling to patient was more than 35 minutes 5/2stable for discharge back to SNF medications reviewed and reconciled stop metformin due to above Cr stable 2.2 follow up [facility] nephrology.>30 min, 36 min. Med Rec Med RecDischarge meds:Stop taking the following medications:metFORMIN (GLUCOPHAGE) 1,000 MG TAB 1,000 MILLIGRAM ORAL TWICE DAILY. Continue taking these medications:QUEtiapine (SEROquel) 25 MG TAB 25 MILLIGRAM ORAL BEDTIME. DONEPEZIL (ARICEPT) 10 MG TAB 10 MILLIGRAM ORAL BEDTIME. busPIRone (BUSPAR) 5 MG TAB 5 MILLIGRAM ORAL TWICE DAILY. ACETAMINOPHEN (TYLENOL) 500 MG TAB 500 MILLIGRAM ORAL EVERY 6 HOURS NEEDED. as needed for HEADACHE Start taking the following new medications:INSULIN LISPRO (HumaLOG U-100 CARTRIDGE) 100 UNIT/ML CARTRIDGE 0 UNIT SUBCUTANEOUS BEFORE MEALS AND AT BEDTIME. Days = 28 No Refills MEGESTROL (MEGACE 400 MG/10 ML) 400 MG/10 ML (40 MG/ML) ORAL.SUSP 800 MILLIGRAM ORAL DAILY. Days = 30 No Refills Zinc Oxide (Zinc Oxide) 20 % OINT...G. 1 APPLIC TOPICAL TWICE DAILY. Days = 30 No Refills Discharge InstructionsDiet: low sodiumActivity: as toleratedPrescriptions: e-prescribeDischarge management: greater than 30 mins Follow-up AppointmentsPCP: PCP: No Primary or Family PhysicianAttending Physician: Attending Physician: Joel Myers MD Opcpbptinz provider 1: Provider 1: Rabia Aguilar MD Specialty: NEPHROLOGY Jszzxeuffr provider 2: Provider 2: Israel Vaughan MD Ihxrasrgaw provider 3: Provider 3: Esau Reid MD Jrnlrtvmff provider 4: Provider 4: Ty Diaz MD Objective GeneralVS/I O:Vital Signs: Date Time Temp Pulse Resp B/P B/P Pulse O2 O2 Flow FiO2 Mean Ox Delivery Rate 10/11 1051 36.5 66 14 116/69 84.8 86 Room air 10/11 0714 36.8 58 14 103/59 73.5 99 Room air 10/11 0415 36.7 73 16 99/63 75.1 95 Room air 10/10 2258 36.3 52 16 103/65 77.5 97 Room air 10/10 1847 36.6 57 16 98/55 69.6 97 Room air 10/10 1607 36.8 60 14 94/58 70.0 94 Room air 24 hour I O ending at 0700: 10/11 0700 10/10 1900 Intake Total 250 768.00 Output Total Balance 250 768.00 Intake, IV 50.00 Intake, Oral 250 718 Intake, Oral 0 Supplement Number 1 2 Bowel Movements Number 4 2 Incontinent Voids Number Voids 1 Patient 57 kg Weight Weight Bed scale Measurement Method Medications:Active Meds + DC'd Last 24 HrsMagnesium Sulfate 50 ML ONCE ONE IV (DC) Potassium Chloride 20 MEQ Q2H PO Magnesium Sulfate 50 ML ONCE ONE IV (DC) Potassium Chloride 20 MEQ ONCE ONE PO (DC) Epoetin Dell-epbx 10,000 UNIT We SUBQ Midodrine 5 MG 0900,1300,1700 PO Pantoprazole 40 MG BID@0600,1800 PO Megestrol Acetate 800 MG DAILY PO Zinc Oxide 1 APPLIC BID TOPICAL Lidocaine 1 EA Q24H TOPICAL Insulin Human Lispro 0 AC HS SUBQ Acetaminophen 650 MG Q4H PRN PRN PO Heparin Sodium 5,000 UNIT Q12HR SUBQ Physical ExamGeneral appearance: alertHead/Eyes: atraumatic, normocephalicENT: moist mucosal membranesNeck: non-tender, no JVD, no masses or swellingCardiovascular: normal heart sounds, regular rate rhythmRespiratory: decreased breath sounds, rales (basal), rhonchi, symmetric expansion, no distress, no rales appreciated on anterior examAbdomen: soft, no distention, no guarding, no reboundGenitourinary: no bladder distentionExtremities: edema (bLE +1), no clubbing, no cyanosisMusculoskeletal: normal inspectionNeuro/FAST FOOD ATTENDANT: no motor deficitsSkin: no rashLymphatics: neck normalPsychiatry: normal affect ResultsFindings/Data:Laboratory Tests 10/11 10/11 10/10 10/10 10/10 0713 0530 1846 1607 1130 Chemistry Sodium (134 - 147 mEq/L) 141 142 Potassium (3.4 - 5.0 mEq/L) 3.2 L 3.3 L Chloride (100 - 108 mEq/L) 107 107 Carbon Dioxide (21 - 33 mEq/L) 27 29 Anion Gap (0 - 20) 10 9 BUN (7 - 18 mg/dL) 28 H 29 H Creatinine (0.6 - 1.3 mg/dL) 2.5 H 2.6 H Glomerular Filtr Rate (70 - 80) 18.9 L 18.1 L Glucose (70 - 110 mg/dL) 234 H 222 H POC Glucose (70 - 110 MG/DL) 224 H 116 H 132 H Calcium (8.0 - 10.5 mg/dL) 8.0 7.9 L Phosphorus (2.5 - 4.9 MG/DL) 3.1 Magnesium (1.8 - 2.4 mg/dL) 1.60 L 1.40 L Laboratory Tests 10/11 10/10 0530 1130 Hematology WBC (4.5 - 11.0 x10 3/uL) 8.34 9.83 RBC (3.54 - 5.02 x10 6/uL) 2.54 L 2.63 L Hgb (11.0 - 15.0 g/dL) 7.6 L 7.9 L Hct (33.0 - 45.0 %) 24.1 L 24.6 L MCV (81.0 - 99.0 fL) 94.9 93.5 MCH (27.0 - 33.0 pg) 29.9 30.0 MCHC (33.0 - 37.0 g/dL) 31.5 L 32.1 L RDW (11.5 - 14.5 %) 15.5 H 15.1 H Plt Count (150 - 400 x10 3/uL) 283 283 MPV (7.0 - 9.0 fL) 10.8 H 10.3 H Neut % (Auto) (56.0 - 77.0 %) 66.1 73.4 Lymph % (Auto) (14.0 - 32.0 %) 22.9 17.1 [place] % (Auto) (4.8 - 9.0 %) 8.9 7.4 Eos % (Auto) (0.3 - 3.7 %) 0.8 0.9 Baso % (Auto) (0.0 - 2.0 %) 0.8 0.7 Neut # (Auto) (2.0 - 7.6 x10 3/uL) 5.51 7.21 Lymph # (Auto) (1.0 - 3.8 x10 3/uL) 1.91 1.68 [place] # (Auto) (0.1 - 0.8 x10 3/uL) 0.74 0.73 Eos # (Auto) (0.0 - 0.2 x10 3/uL) 0.07 0.09 Baso # (Auto) (0.0 - 0.2 x10 3/uL) 0.07 0.07 Abs Immat Gran (auto) (0.00 - 0.03 x10 3/uL) 0.04 H 0.05 H Add Manual Diff NO NO Immature Gran % (0.0 - 2.0 %) 0.5 0.5 Nucleated RBC % (0 - 0 %) 0.0 0.0 Nucleated RBCs # (Man) (0.0 - 0.1 x10 3/uL) 0.00 0.00 Results: labs reviewed, vital signs stable, current med profile rev'd at 1103 RPT #:[id number] OF REPORTDSDischarge [id number]:01:00G.[id number] for patient okhoOCVDHJTXLFUZEO0233-58-29D67:03:27 [facility] 2019-[facility] 06:39:00 [id number]/qVe [id number] cDhKkLEVrR7/MzVPqksFXNxePp4765-89-52X17:39:00 [facility] Progress NoteREPORT#:[id number] REPORT STATUS: SignedDATE:10/12/19 TIME: 0639 PATIENT: MAC AGUSTIN UNIT #: [id number]#: [id number] [address] [birth year] AGE: 74 SEX: F ATTEND: Joel Myers [facility] AUTHOR: Rabia Aguilar MD * ALL edits or amendments must be made on the electronic/computer document * SubjectiveChief Complaint:AMS/Lactic acidosis/AKIUnable to obtain: patient conditionComments:Patient seen and evaluated, HPI no change from initial, feels okay Review of SystemsUnable to obtain due to:Patient's condition Objective GeneralVS/I O:Vital Signs: Date Time Temp Pulse Resp B/P B/P Pulse O2 O2 Flow FiO2 Mean Ox Delivery Rate 10/11 0415 36.7 73 16 99/63 75.1 95 Room air 10/10 2258 36.3 52 16 103/65 77.5 97 Room air 10/10 1847 36.6 57 16 98/55 69.6 97 Room air 10/10 1607 36.8 60 14 94/58 70.0 94 Room air 10/10 1004 36.3 65 14 109/62 77.4 99 Room air 10/10 0658 37.0 57 14 114/69 83.9 97 Room air 24 hour I O ending at 0700: 10/11 0700 10/10 1900 Intake Total 250 768.00 Output Total Balance 250 768.00 Intake, IV 50.00 Intake, Oral 250 718 Intake, Oral 0 Supplement Number 1 2 Bowel Movements Number 4 2 Incontinent Voids Number Voids 1 Patient 57 kg Weight Weight Bed scale Measurement Method MedicationsActive Meds + DC'd Last 24 HrsMagnesium Sulfate 50 ML ONCE ONE IV (DC) Potassium Chloride 20 MEQ ONCE ONE PO (DC) Epoetin Dell-epbx 10,000 UNIT We SUBQ Midodrine 5 MG 0900,1300,1700 PO Pantoprazole 40 MG BID@0600,1800 PO Megestrol Acetate 800 MG DAILY PO Zinc Oxide 1 APPLIC BID TOPICAL Lidocaine 1 EA Q24H TOPICAL Insulin Human Lispro 0 AC HS SUBQ Acetaminophen 650 MG Q4H PRN PRN PO Heparin Sodium 5,000 UNIT Q12HR SUBQ Physical ExamGeneral appearance: alert, no acute distressHead/eyes: atraumatic, normocephalicENT: normal noseNeck: supple/no meningismusCardiovascular: normal heart sounds, no rubRespiratory: aerating well, symmetric expansionAbdomen: softGenitourinary: no foleyExtremities: no edemaMusculoskeletal: normal inspectionNeuro/FAST FOOD ATTENDANT: altered mental statusSkin: dry ResultsFindings/Data:Laboratory Tests 10/10 10/10 10/10 10/10 10/10 1846 1607 1130 1003 0657 Chemistry Sodium (134 - 147 mEq/L) 142 Potassium (3.4 - 5.0 mEq/L) 3.3 L Chloride (100 - 108 mEq/L) 107 Carbon Dioxide (21 - 33 mEq/L) 29 Anion Gap (0 - 20) 9 BUN (7 - 18 mg/dL) 29 H Creatinine (0.6 - 1.3 mg/dL) 2.6 H Glomerular Filtr Rate (70 - 80) 18.1 L Glucose (70 - 110 mg/dL) 222 H POC Glucose (70 - 110 MG/DL) 116 H 132 H 233 H 130 H Calcium (8.0 - 10.5 mg/dL) 7.9 L Magnesium (1.8 - 2.4 mg/dL) 1.40 L Laboratory Tests 10/10 1130 Hematology WBC (4.5 - 11.0 x10 3/uL) 9.83 RBC (3.54 - 5.02 x10 6/uL) 2.63 L Hgb (11.0 - 15.0 g/dL) 7.9 L Hct (33.0 - 45.0 %) 24.6 L MCV (81.0 - 99.0 fL) 93.5 MCH (27.0 - 33.0 pg) 30.0 MCHC (33.0 - 37.0 g/dL) 32.1 L RDW (11.5 - 14.5 %) 15.1 H Plt Count (150 - 400 x10 3/uL) 283 MPV (7.0 - 9.0 fL) 10.3 H Neut % (Auto) (56.0 - 77.0 %) 73.4 Lymph % (Auto) (14.0 - 32.0 %) 17.1 [place] % (Auto) (4.8 - 9.0 %) 7.4 Eos % (Auto) (0.3 - 3.7 %) 0.9 Baso % (Auto) (0.0 - 2.0 %) 0.7 Neut # (Auto) (2.0 - 7.6 x10 3/uL) 7.21 Lymph # (Auto) (1.0 - 3.8 x10 3/uL) 1.68 [place] # (Auto) (0.1 - 0.8 x10 3/uL) 0.73 Eos # (Auto) (0.0 - 0.2 x10 3/uL) 0.09 Baso # (Auto) (0.0 - 0.2 x10 3/uL) 0.07 Abs Immat Gran (auto) (0.00 - 0.03 x10 3/uL) 0.05 H Add Manual Diff NO Immature Gran % (0.0 - 2.0 %) 0.5 Nucleated RBC % (0 - 0 %) 0.0 Nucleated RBCs # (Man) (0.0 - 0.1 x10 3/uL) 0.00 Diagnosis, Assessment PlanFree Text A P:Patient seen and evaluated, discussed with care team, images and laboratories reviewed.History of dementiaHistory of rheumatoid arthritisHistory of frequent fallsHistory of frequent UTIsHistory of hypertension: Currently hypotensiveHypokalemia: We will supplementSevere hypomagnesemia we will supplementHypocalcemia: We will supplementHypoalbuminemiaSevere lactic acidosis: Etiology, could be related to septic shock, however source is unclear, rule out ischemic bowel, Zosyn, will need to review her medications if patient has been on metformin, lactic acidosis due to metformin in the setting of acute renal failure is a possibility and will do hemodialysis in the setting.Patient has been taking Metformin 1000 BID, kenneth has lactic acidosis that is induced by Metformin, discussed with deysi and ICC/Primary team will proceed with HD09/27/2019 mental status a lot better, hemodynamically more stable, pressors being weaned off, received 6 hours of hemodialysis yesterday, her last set of blood gas showed a pH of 7.40, PCO2 25, PO2 55, lactic acid 6.2 improving, sodium is 143 potassium 3.6 CO2 20 chloride 101 BUN 13 creatinine 1.1, hemoglobin this morning 9.7, white blood count 19.78 trending down, platelet 156, her clinical picture is consistent with metformin induced lactic acidosis, will do another session of hemodialysis, 4 hours, potassium 3.5, no ultrafiltration, will give 20 mmol of potassium phosphate and expectation of hypophosphatemia during hemodialysis. katie and evaluated during HD, discussed with RN and HD nurse09/28/2019 laboratories from this morning showed sodium 144, potassium 3.3 we will give KCl 20 mEq IV x1, chloride 104, bicarbonate 16, creatinine 1.2, lacticacid 1.2, hemoglobin 8.4, white blood count 15.2, blood culture still negative, anion gap today is 24 with a normal lactic acid etiology unclear will repeat BMP, repeat lactic acid and order serum acetone and do urinalysis to check for urine ketones, also will do a blood gas. Ketones came back as large, This is likley starvation ketoacidosis that has been exacerbated by gluconeogenesis inhibition by Metformin and has been reported in the literature, will start Glucose and insulin drip09/29/2019 laboratories from this morning showed sodium 142, potassium 2.7 we will give KCl 20 mEq IV x2, bicarbonate 32 with a chloride of 103 with disappearance of the anion gap correction of anion gap, will DC IV fluid with sodium bicarbonate, will DC insulin drip, changed to insulin sliding scale, start D10 at 30 cc/h since patient is noted nauseated, her chest x-ray showed pulmonary edema, will give IV Lasix 60 mg every 8 hours, give a dose of metolazone, her phosphorus 1.4, will give potassium phosphate 15 mmol IV x1, recheck lab in the afternoon, her lactic acid is 4 up some, not clear why is it elevated, we will recheck in the afternoon, her creatinine is 2.2, not sure whather baseline creatinine, her creatinine is relatively stable since yesterday, will monitor closely, hemoglobin is 7.8, white blood count 13.57 improving.09/30/2019 laboratories from this morning showed sodium 138, potassium 3.5, CO2 34, chloride 100, BUN and creatinine 22 and 2.4 up some likely related to diuretics, albumin 1.8, hemoglobin 7.8, platelet 60, white blood count 10.51 continues to trend down, lactic acid 1.2 within normal limit, urine output farlt9781 cc with Lasix. Chest x-ray still pending. Progressive thrombocytopenia with progressive decrease in hemoglobin, the latter could be related to fluid resuscitation, multiple blood draws and blood loss during dialysis procedure, however will check LDH, haptoglobin, PT/ PT. 10/01/2019 patient was transferred to the floor, PT PTT are within normal limit, LDH slightly elevated 276, liver function tests are within normal limit, haptoglobin pending, chest x-ray is better from yesterday. Sodium 138 today potassium 3.8, CO2 32, BUN and creatinine 25 and 2.6 trending up likely related to volume contraction. Will check post void resdiual10/03/2019 laboratories from this morning showed sodium 137, potassium 3.6, CO2 28, BUN and creatinine 30 and 3.0 continue to rise, blood pressures on the low side will try midodrine 5 mg p.o. 3 times daily, hypomagnesemia 1.7 we will givemagnesium sulfate 1 g IV x1, hemoglobin 8.1, white blood count 5.21, will check the results of postvoid residual. BNP 109 will increase IVF to 75 cc per 10/04/19 Hgb 8.4, WBC 109, Na 136, K 4.1, HCO3 23, BUN 31, Creat 3.0 stable sinceyesterday, continue IVF10/05/2019 laboratories from today showed hemoglobin 8, platelet 192, white bloodcount 7.15, sodium 138, potassium 3.3 we will give KCl 10 mEq IV x3 doses, CO2 28, BUN and creatinine 27 and 2.7 trending down, continue IV fluid.10/06/2019 laboratories from this morning showed hemoglobin 7.6, white blood count 7.11, platelet 212, sodium 139, potassium 3.6, CO2 23, BUN and creatinine 26 and 2.6 continue to trend down, continue IV fluid.10/07/2019 laboratories from this morning showed sodium 139, potassium 3.1 we will give KCl 10 mEq IV times 4 doses, CO2 24, BUN and creatinine 27 and 22.4 improving, hypomagnesemia 1.5 we will give magnesium sulfate 2 g IV x1, hemoglobin 8, platelet 216.Chest x-ray from yesterday showed mild congestion, her BNP was 300, IV fluid was DC'd. 10/09/2019 laboratories from this morning showed sodium 141, potassium 3.3 we will give KCl 20 mEq p.o. x2 doses, CO2 23, BUN 28, creatinine 2.5 up some, hypomagnesemia 1.5 we will give magnesium sulfate 2 g IV x1, anemia hemoglobin 7.6 we will check iron studies and start Epogen 10,000 subcu once a week.10/10/2019 laboratories from this morning showed sodium 143, potassium 2.8 we will give KCl 10 mEq IV x4 and oral potassium KCl 20 mEq p.o. x2, CO2 30, BUN and creatinine 27 and 2.4 slightly better, hypomagnesemia 1.30 we will give magnesium sulfate 2 g IV x1. 10/11/2019 labs are not done this morning, will check results when available. 10/12/2019 laboratories from this morning showed sodium 141, potassium 3.2 we willgive KCl 20 mEq p.o. x3 doses, CO2 27, BUN/creatinine 28 and 2.5 down from 2.6, hypomagnesemia 1.6 we will give magnesium sulfate 2 g IV x1, hemoglobin 7.6, white blood cells 8.34 at 1109 RPT #:[id number] OF REPORTPRProgress [id number]:39:00G.[id number] for patient yuvcNDFISLOICWPAAU4514-64-14S27:10:[address] [facility] 2019-10-11 13:14:00 [id number] mXMO0+0oVdkduM1oK mSS7rBn/N7ZJ4BSHHHBVsS7q6t4921-49-18I55:14:00 [facility] Discharge SummaryREPORT#:[id number] REPORT STATUS: SignedDATE:10/11/19 TIME: 1314 PATIENT: NIKOLEMAC Pollack UNIT #: [id number]#: [id number] ROOM/BED: 5526-1DOB: [birth year] AGE: 74 SEX: F ATTEND: Joel Myers [facility] AUTHOR: Nickie Ha MD * ALL edits or amendments must be made on the electronic/computer document * PCP PCPPCP:PCP: No Primary or Family Physician Discharge to: correction General InformationProblem List/A P: 1. Acute renal failure 2. Physical deconditioning 3. Hypomagnesemia 4. Lactic acidosis 5. Acute hypoactive delirium due to another medical condition Date of admission:Observation Start Date: Date of admission: 09/26/19 Discharge date: 10/11/19Hospital course:Severe lactic acidosisSevere metabolic acidosisAcute renal failureHypocalcemiaHypomagnesemia?Septic shock vs lactic acidosis from metforminDehydrationHypothermiaDMHTNDementia with behavior disturbancepersistent hypoglycemia Plan:Ms. Agustin is a 74 yo female with non-specific symptoms of not feeling well, poor appetite that was found to have abnormal labs at [facility], sent to ED forevaluation. In the ED, found to have severe lactic and metabolic acidosis. Discussed at length with ICU (Dr. Lin) and Renal (Dr Aguilar).Given her [facility] imaging, urinalysis, CXR are unremarkable for this level of acidosis, perhaps this acidosis is secondary to metformin. Plan is todialyize patient to look for improvement. If no improvement, perhaps this is ischemic bowel. Will continue empiric Zosyn.- Zosyn- blood cultures pending- hold home meds- Accuchecks and SSI- replace electrolytes- heparin for DVT prophylaxsis09/26Improved lactic acidosis with dialysis. Given improvement, likely this was lactic acidosis secondary to metformin.WBC persistently elevated at 19, will continue broad spectrum abx for now- blood cultures negative- UA unremarkable- monitor CBC for downtrend- if WBC remains elevated with mention of possible neoplasm in stomach, would consider work up however, this patient has dementia with lowquality of life, not a good candidate for work up/treatment.BS well controlled with current insulin scheduleCheck labs in am4/18Lactate remains normal, continue to hold metforminPt noted return of anion gap acidosis with ketonuria. Discussed with Dr. Aguilar,nephrology. Pt placed on DKA protocol to close anion gap, onD10 for glucose needs while on insulin drip.BNP elevated with clear lungs, no dependent edema, decreased O2 requirement. Give one dose of Lasix 40 mg IV, check CXR in the am, monitorfor volume overload while getting DKA fluids.WBC decreased to 15, continue abx for now, d/c after 5 daysSome blood noted in stool, CT with signs of chronic inflammation. Given her dementia, unsure that patient would tolerate bowel prep. GIconsulted. Appreciate input on area in stomach with possible neoplasm.Check labs in am4/19Anion gap closed, off insulin dripElevated lactate, monitorCXR shows severe vascular congestion and pleural fluid, likely related to fluidsgiven for lactic acidosis and metabolic acidosis, pt not in respiratorydistress- Lasix 60 mg IV q8 iniated by nephrology- D10 at 30 cc/hr to maintain blood sugarWBC decreased to 13, d/c abx after 5 daysColon with chronic inflammation, no work up per GIWill need EGD to evaluate abnormality in gastric wall once improvedCheck labs in am4/20Off insulin dripCXR reviewedCont lasixWBC count came down to 10.5On zosynTransfer to the floordw RN, TRUCK DRIVER TEAMSTER, consultantsCXR and telemetry personally reviewedFurther recs per clinical rqnvxb2110/01/2019- blood sugars stable on D10W. will switch to D5W- consider endo eval if persistently hypoglycemic- monitor renal function closely- off antibiotics- await stool samples. no diarrhea overnight- PT/OT- start mobilizing. rehab eval- on IV PPI. ? switch to po - will defer to GI- ? need for EGD10/02/2019- Back on Heparin SQ- Megace started.- switched to po PPI.- Blood sugars up. will d/c IV fluids at this time and monitor blood sugars closely- observe off antibiotics- mobilize- likely back to SNF in the next 1-2 days10/03/2019- will restart IV fluids due to worsening renal function- clinically dry. not taking in any signficant food or liquids- follow creatinine closelly- continue Megace- anticipate back to SNF once renal function more stable- Heparin for VTE10/04/2019- follow renal function- on IVF. renal increased rate- watch for volume overload- off antibiotics- continue Megace- on Svqatwe2110/05/2019- follow creatinine. continue IVF for now- Heparing for VTE- renal following- d/w patient's nurse.- calorie krnvpovx71/26/2020- patient very short of breath. suspicious for volume overload- will stop IVF- give 1 dose of lasix- check CXR and BNP- continue Megace- BP more stable on Midodrine- continue to mobilize- heparin for VTE- daughter voiced concern about patient's exposure to COVID at the facility she came from. Will test for COVID-19010/07/2019- Rapid COVID and PCR test negative- transfer out [address]- replete K+ and Mg+- off IV fluids.- renal function jcjmincps41/28/2020- pt reports feeling ok today, but is refusing all nursing care and refuses lab draw today- blood sugars adequately controlled for now, continue to hold metformin- appetite improved, monitor blood sugars closely, may need to start SSI as patient starts to eat more- nephrology following, continue to monitor renal function, HD per nephrology- d/c planning: reutrn to SNF when medically gydyxf7410/09/2019- cooperative with care today, feeling OK- blood sugars elevated yesterday PM, continue sliding scale insulin and monitorfor now- Cr stable at 2.5 today, continue to monitor renal function, HD per nephrology- encourage oral intake- k 3.3 today, replacement ordered per renal, mag replacement ordered per renal10/10/2019- blood sugars fluctuating. will be very careful in giving long acting agents gian dietary intake is erratic which will make her prone to develophypoglycemia- continue sliding scale- monitor renal function closely. renal service following- replete lytes- back to SNF/HI once renal function stabilizestotal time spent with evaluating patient/data as well as providing education/counselling to patient was more than 35 minutes 10/10able for discharge back to SNF medications reviewed and reconciled stop metformin due to above Cr stable 2.2 follow up [facility] nephrology.>30 min, 36 min. Med Rec Med RecDischarge meds:Stop taking the following medications:metFORMIN (GLUCOPHAGE) 1,000 MG TAB 1,000 MILLIGRAM ORAL TWICE DAILY. Continue taking these medications:QUEtiapine (SEROquel) 25 MG TAB 25 MILLIGRAM ORAL BEDTIME. DONEPEZIL (ARICEPT) 10 MG TAB 10 MILLIGRAM ORAL BEDTIME. busPIRone (BUSPAR) 5 MG TAB 5 MILLIGRAM ORAL TWICE DAILY. ACETAMINOPHEN (TYLENOL) 500 MG TAB 500 MILLIGRAM ORAL EVERY 6 HOURS NEEDED. as needed for HEADACHE Start taking the following new medications:INSULIN LISPRO (HumaLOG U-100 CARTRIDGE) 100 UNIT/ML CARTRIDGE 0 UNIT SUBCUTANEOUS BEFORE MEALS AND AT BEDTIME. Days = 28 No Refills MEGESTROL (MEGACE 400 MG/10 ML) 400 MG/10 ML (40 MG/ML) ORAL.SUSP 800 MILLIGRAM ORAL DAILY. Days = 30 No Refills Zinc Oxide (Zinc Oxide) 20 % OINT...G. 1 APPLIC TOPICAL TWICE DAILY. Days = 30 No Refills Discharge InstructionsDiet: low sodiumActivity: as toleratedPrescriptions: e-prescribeDischarge management: greater than 30 minsTime spent: Time spent with patient (minutes): 36 Follow-up AppointmentsPCP: PCP: No Primary or Family PhysicianAttending Physician: Attending Physician: Joel Myers MD Fjxdrtoyax provider 1: Provider 1: Rabia Aguilar MD Specialty: NEPHROLOGY Objective GeneralVS/I O:Vital Signs: Date Time Temp Pulse Resp B/P B/P Pulse O2 O2 Flow FiO2 Mean Ox Delivery Rate 10/10 1004 36.3 65 14 109/62 77.4 99 Room air 10/10 0658 37.0 57 14 114/69 83.9 97 Room air 10/10 0434 37.1 61 17 114/69 83.8 99 Room air 10/09 2320 37.1 64 17 108/69 82.2 98 Room air 10/09 1857 36.8 62 17 96/53 67.5 99 Room air 10/09 1521 36.7 61 17 107/69 82.0 99 Room air 24 hour I O ending at 0700: 10/10 0700 10/09 1900 Intake Total 780.00 Output Total Balance 780.00 Intake, IV 280.00 Intake, Oral 500 Number 2 Bowel Movements Number 3 Incontinent Voids Medications:Active Meds + DC'd Last 24 HrsEpoetin Dell-epbx 10,000 UNIT We SUBQ Midodrine 5 MG 0900,1300,1700 PO Pantoprazole 40 MG BID@0600,1800 PO Megestrol Acetate 800 MG DAILY PO Zinc Oxide 1 APPLIC BID TOPICAL Lidocaine 1 EA Q24H TOPICAL Insulin Human Lispro 0 AC HS SUBQ Acetaminophen 650 MG Q4H PRN PRN PO Heparin Sodium 5,000 UNIT Q12HR SUBQ Physical ExamHead/Eyes: atraumatic, normocephalicENT: moist mucosal membranesNeck: non-tender, no JVD, no masses or swellingCardiovascular: normal heart sounds, regular rate rhythmRespiratory: decreased breath sounds, rales (basal), rhonchi, symmetric expansion, no distress, no rales appreciated on anterior examAbdomen: soft, no distention, no guarding, no reboundGenitourinary: no bladder distentionExtremities: edema (bLE +1), no clubbing, no cyanosisMusculoskeletal: normal inspectionNeuro/FAST FOOD ATTENDANT: no motor deficitsSkin: no rashLymphatics: neck normalPsychiatry: normal affect ResultsFindings/Data:Laboratory Tests 10/10 10/10 10/10 10/09 10/09 1130 1003 0657 1948 1520 Chemistry Sodium (134 - 147 mEq/L) 142 Potassium (3.4 - 5.0 mEq/L) 3.3 L Chloride (100 - 108 mEq/L) 107 Carbon Dioxide (21 - 33 mEq/L) 29 Anion Gap (0 - 20) 9 BUN (7 - 18 mg/dL) 29 H Creatinine (0.6 - 1.3 mg/dL) 2.6 H Glomerular Filtr Rate (70 - 80) 18.1 L Glucose (70 - 110 mg/dL) 222 H POC Glucose (70 - 110 MG/DL) 233 H 130 H 177 H 175 H Calcium (8.0 - 10.5 mg/dL) 7.9 L Magnesium (1.8 - 2.4 mg/dL) 1.40 L Laboratory Tests 10/10 1130 Hematology WBC (4.5 - 11.0 x10 3/uL) 9.83 RBC (3.54 - 5.02 x10 6/uL) 2.63 L Hgb (11.0 - 15.0 g/dL) 7.9 L Hct (33.0 - 45.0 %) 24.6 L MCV (81.0 - 99.0 fL) 93.5 MCH (27.0 - 33.0 pg) 30.0 MCHC (33.0 - 37.0 g/dL) 32.1 L RDW (11.5 - 14.5 %) 15.1 H Plt Count (150 - 400 x10 3/uL) 283 MPV (7.0 - 9.0 fL) 10.3 H Neut % (Auto) (56.0 - 77.0 %) 73.4 Lymph % (Auto) (14.0 - 32.0 %) 17.1 [place] % (Auto) (4.8 - 9.0 %) 7.4 Eos % (Auto) (0.3 - 3.7 %) 0.9 Baso % (Auto) (0.0 - 2.0 %) 0.7 Neut # (Auto) (2.0 - 7.6 x10 3/uL) 7.21 Lymph # (Auto) (1.0 - 3.8 x10 3/uL) 1.68 [place] # (Auto) (0.1 - 0.8 x10 3/uL) 0.73 Eos # (Auto) (0.0 - 0.2 x10 3/uL) 0.09 Baso # (Auto) (0.0 - 0.2 x10 3/uL) 0.07 Abs Immat Gran (auto) (0.00 - 0.03 x10 3/uL) 0.05 H Add Manual Diff NO Immature Gran % (0.0 - 2.0 %) 0.5 Nucleated RBC % (0 - 0 %) 0.0 Nucleated RBCs # (Man) (0.0 - 0.1 x10 3/uL) 0.00 Results: current med profile rev'd at 1317 RPT #:[id number] OF REPORTDSDischarge [id number]:14:00G.[id number] for patient [id number]:18:22 [facility] L 2019-10-11 09:50:00 [id number]+hLhpduafAfKUEIX Yie+DwN+ZFShKGa0n [id number]/[id number]:50:00 [facility] ([facility])Nephrology Progress NoteREPORT#:[id number] REPORT STATUS: SignedDATE:10/11/19 TIME: 0950 PATIENT: MAC AGUSTIN UNIT #: [id number]#: [id number] [address] AGE: 74 SEX: F ATTEND: Joel Myers MDA AUTHOR: Rabia Aguilar MD * ALL edits or amendments must be made on the electronic/computer document * SubjectiveChief Complaint:AMS/Lactic acidosis/AKIPatient reports:No: complaints. Comments:Patient seen and evaluated, HPI no change from initial, feels okay Review of SystemsUnable to obtain due to:Patient's condition Objective GeneralVS/I O:Vital Signs: Date Time Temp Pulse Resp B/P B/P Pulse O2 O2 Flow FiO2 Mean Ox Delivery Rate 10/10 0658 37.0 57 14 114/69 83.9 97 Room air 10/10 0434 37.1 61 17 114/69 83.8 99 Room air 10/09 2320 37.1 64 17 108/69 82.2 98 Room air 10/09 1857 36.8 62 17 96/53 67.5 99 Room air 10/09 1521 36.7 61 17 107/69 82.0 99 Room air 10/09 1012 36.7 60 17 110/66 80.7 95 Room air 10/09 1012 36.7 60 17 110/66 80.7 95 Room air 24 hour I O ending at 0700: 10/10 0700 10/09 1900 Intake Total 780.00 Output Total Balance 780.00 Intake, IV 280.00 Intake, Oral 500 Number 2 Bowel Movements Number 3 Incontinent Voids MedicationsActive Meds + DC'd Last 24 HrsMagnesium Sulfate 50 ML ONCE ONE IV (DC) Potassium Chloride 20 MEQ Q2H PO (DC) Potassium Chloride 50 ML Q1HR IV (DC) Epoetin Dell-epbx 10,000 UNIT We SUBQ Midodrine 5 MG 0900,1300,1700 PO Pantoprazole 40 MG BID@0600,1800 PO Megestrol Acetate 800 MG DAILY PO Zinc Oxide 1 APPLIC BID TOPICAL Lidocaine 1 EA Q24H TOPICAL Insulin Human Lispro 0 AC HS SUBQ Acetaminophen 650 MG Q4H PRN PRN PO Heparin Sodium 5,000 UNIT Q12HR SUBQ Physical ExamGeneral appearance: alert, no acute distressHead/eyes: atraumatic, normocephalicENT: normal noseNeck: supple/no meningismusCardiovascular: normal heart sounds, no rubRespiratory: aerating well, symmetric expansionAbdomen: softGenitourinary: no foleyExtremities: no edemaMusculoskeletal: normal inspectionNeuro/FAST FOOD ATTENDANT: altered mental statusSkin: dry ResultsFindings/Data:Laboratory Tests 10/10 10/09 10/09 10/09 10/09 0657 1948 1520 1009 0647 Chemistry POC Glucose (70 - 110 MG/DL) 130 H 177 H 175 H 136 H 119 H 10/09 10/08 10/08 10/08 10/08 0446 1926 1539 1125 1057 Chemistry Sodium (134 - 147 mEq/L) 143 Potassium (3.4 - 5.0 mEq/L) 2.8 *L Chloride (100 - 108 mEq/L) 106 Carbon Dioxide (21 - 33 mEq/L) 30 Anion Gap (0 - 20) 10 BUN (7 - 18 mg/dL) 27 H Creatinine (0.6 - 1.3 mg/dL) 2.4 H Glomerular Filtr Rate (70 - 80) 19.8 L Glucose (70 - 110 mg/dL) 123 H POC Glucose (70 - 110 MG/DL) 234 H 127 H 144 H Calcium (8.0 - 10.5 mg/dL) 8.0 Phosphorus (2.5 - 4.9 MG/DL) 3.5 Magnesium (1.8 - 2.4 mg/dL) 1.30 L Iron (35 - 150 mcg/dL) 56 TIBC (260 - 445 mcg/dL) 163 L % Saturation (14 - 34 %) 34.4 H Unsat Iron Binding (mcg/dL) 107 Ferritin (11.0 - 306.8 ng/mL) 182.0 10/08 10/08 10/07 10/07 10/07 0644 0420 1925 1540 1022 Chemistry Sodium (134 - 147 mEq/L) 141 Potassium (3.4 - 5.0 mEq/L) 3.3 L Chloride (100 - 108 mEq/L) 108 Carbon Dioxide (21 - 33 mEq/L) 23 Anion Gap (0 - 20) 13 BUN (7 - 18 mg/dL) 28 H Creatinine (0.6 - 1.3 mg/dL) 2.5 H Glomerular Filtr Rate (70 - 80) 18.9 L Glucose (70 - 110 mg/dL) 142 H POC Glucose (70 - 110 MG/DL) 136 H 282 H 279 H 115 H Calcium (8.0 - 10.5 mg/dL) 7.8 L Phosphorus (2.5 - 4.9 MG/DL) 3.1 Magnesium (1.8 - 2.4 mg/dL) 1.60 L Laboratory Tests 10/09 10/08 0446 0420 Hematology WBC (4.5 - 11.0 x10 3/uL) 10.88 10.44 RBC (3.54 - 5.02 x10 6/uL) 2.86 L 2.52 L Hgb (11.0 - 15.0 g/dL) 8.5 L 7.6 L Hct (33.0 - 45.0 %) 26.4 L 24.3 L MCV (81.0 - 99.0 fL) 92.3 96.4 MCH (27.0 - 33.0 pg) 29.7 30.2 MCHC (33.0 - 37.0 g/dL) 32.2 L 31.3 L RDW (11.5 - 14.5 %) 14.9 H 15.0 H Plt Count (150 - 400 x10 3/uL) 311 193 MPV (7.0 - 9.0 fL) 10.7 H 11.6 H Neut % (Auto) (56.0 - 77.0 %) 70.7 70.1 Lymph % (Auto) (14.0 - 32.0 %) 20.6 21.1 [place] % (Auto) (4.8 - 9.0 %) 6.5 7.0 Eos % (Auto) (0.3 - 3.7 %) 1.0 1.0 Baso % (Auto) (0.0 - 2.0 %) 0.6 0.3 Neut # (Auto) (2.0 - 7.6 x10 3/uL) 7.69 H 7.33 Lymph # (Auto) (1.0 - 3.8 x10 3/uL) 2.24 2.20 [place] # (Auto) (0.1 - 0.8 x10 3/uL) 0.71 0.73 Eos # (Auto) (0.0 - 0.2 x10 3/uL) 0.11 0.10 Baso # (Auto) (0.0 - 0.2 x10 3/uL) 0.06 0.03 Abs Immat Gran (auto) (0.00 - 0.03 x10 3/uL) 0.07 H 0.05 H Add Manual Diff NO NO Immature Gran % (0.0 - 2.0 %) 0.6 0.5 Nucleated RBC % (0 - 0 %) 0.0 0.2 H Nucleated RBCs # (Man) (0.0 - 0.1 x10 3/uL) 0.00 0.02 Laboratory Tests 10/10 10/09 10/09 10/09 0657 1948 1520 1009 Chemistry POC Glucose (70 - 110 MG/DL) 130 H 177 H 175 H 136 H Diagnosis, Assessment PlanFree Text A P:Patient seen and evaluated, discussed with care team, images and laboratories reviewed.History of dementiaHistory of rheumatoid arthritisHistory of frequent fallsHistory of frequent UTIsHistory of hypertension: Currently hypotensiveHypokalemia: We will supplementSevere hypomagnesemia we will supplementHypocalcemia: We will supplementHypoalbuminemiaSevere lactic acidosis: Etiology, could be related to septic shock, however source is unclear, rule out ischemic bowel, Zosyn, will need to review her medications if patient has been on metformin, lactic acidosis due to metformin in the setting of acute renal failure is a possibility and will do hemodialysis in the setting.Patient has been taking Metformin 1000 BID, kenneth has lactic acidosis that is induced by Metformin, discussed with deysi and ICC/Primary team will proceed with HD09/27/2019 mental status a lot better, hemodynamically more stable, pressors being weaned off, received 6 hours of hemodialysis yesterday, her last set of blood gas showed a pH of 7.40, PCO2 25, PO2 55, lactic acid 6.2 improving, sodium is 143 potassium 3.6 CO2 20 chloride 101 BUN 13 creatinine 1.1, hemoglobin this morning 9.7, white blood count 19.78 trending down, platelet 156, her clinical picture is consistent with metformin induced lactic acidosis, will do another session of hemodialysis, 4 hours, potassium 3.5, no ultrafiltration, will give 20 mmol of potassium phosphate and expectation of hypophosphatemia during hemodialysis. katie and evaluated during HD, discussed with RN and HD nurse09/28/2019 laboratories from this morning showed sodium 144, potassium 3.3 we will give KCl 20 mEq IV x1, chloride 104, bicarbonate 16, creatinine 1.2, lacticacid 1.2, hemoglobin 8.4, white blood count 15.2, blood culture still negative, anion gap today is 24 with a normal lactic acid etiology unclear will repeat BMP, repeat lactic acid and order serum acetone and do urinalysis to check for urine ketones, also will do a blood gas. Ketones came back as large, This is likley starvation ketoacidosis that has been exacerbated by gluconeogenesis inhibition by Metformin and has been reported in the literature, will start Glucose and insulin drip09/29/2019 laboratories from this morning showed sodium 142, potassium 2.7 we will give KCl 20 mEq IV x2, bicarbonate 32 with a chloride of 103 with disappearance of the anion gap correction of anion gap, will DC IV fluid with sodium bicarbonate, will DC insulin drip, changed to insulin sliding scale, start D10 at 30 cc/h since patient is noted nauseated, her chest x-ray showed pulmonary edema, will give IV Lasix 60 mg every 8 hours, give a dose of metolazone, her phosphorus 1.4, will give potassium phosphate 15 mmol IV x1, recheck lab in the afternoon, her lactic acid is 4 up some, not clear why is it elevated, we will recheck in the afternoon, her creatinine is 2.2, not sure whather baseline creatinine, her creatinine is relatively stable since yesterday, will monitor closely, hemoglobin is 7.8, white blood count 13.57 improving.09/30/2019 laboratories from this morning showed sodium 138, potassium 3.5, CO2 34, chloride 100, BUN and creatinine 22 and 2.4 up some likely related to diuretics, albumin 1.8, hemoglobin 7.8, platelet 60, white blood count 10.51 continues to trend down, lactic acid 1.2 within normal limit, urine output [id number] cc with Lasix. Chest x-ray still pending. Progressive thrombocytopenia with progressive decrease in hemoglobin, the latter could be related to fluid resuscitation, multiple blood draws and blood loss during dialysis procedure, however will check LDH, haptoglobin, PT/ PT. 10/01/2019 patient was transferred to the floor, PT PTT are within normal limit, LDH slightly elevated 276, liver function tests are within normal limit, haptoglobin pending, chest x-ray is better from yesterday. Sodium 138 today potassium 3.8, CO2 32, BUN and creatinine 25 and 2.6 trending up likely related to volume contraction. Will check post void resdiual10/03/2019 laboratories from this morning showed sodium 137, potassium 3.6, CO2 28, BUN and creatinine 30 and 3.0 continue to rise, blood pressures on the low side will try midodrine 5 mg p.o. 3 times daily, hypomagnesemia 1.7 we will givemagnesium sulfate 1 g IV x1, hemoglobin 8.1, white blood count 5.21, will check the results of postvoid residual. BNP 109 will increase IVF to 75 cc per / Hgb 8.4, WBC 109, Na 136, K 4.1, HCO3 23, BUN 31, Creat 3.0 stable sinceyesterday, continue IVF10/05/2019 laboratories from today showed hemoglobin 8, platelet 192, white bloodcount 7.15, sodium 138, potassium 3.3 we will give KCl 10 mEq IV x3 doses, CO2 28, BUN and creatinine 27 and 2.7 trending down, continue IV fluid.10/06/2019 laboratories from this morning showed hemoglobin 7.6, white blood count 7.11, platelet 212, sodium 139, potassium 3.6, CO2 23, BUN and creatinine 26 and 2.6 continue to trend down, continue IV fluid.10/07/2019 laboratories from this morning showed sodium 139, potassium 3.1 we will give KCl 10 mEq IV times 4 doses, CO2 24, BUN and creatinine 27 and 22.4 improving, hypomagnesemia 1.5 we will give magnesium sulfate 2 g IV x1, hemoglobin 8, platelet 216.Chest x-ray from yesterday showed mild congestion, her BNP was 300, IV fluid was DC'd. 10/09/2019 laboratories from this morning showed sodium 141, potassium 3.3 we will give KCl 20 mEq p.o. x2 doses, CO2 23, BUN 28, creatinine 2.5 up some, hypomagnesemia 1.5 we will give magnesium sulfate 2 g IV x1, anemia hemoglobin 7.6 we will check iron studies and start Epogen 10,000 subcu once a week.10/10/2019 laboratories from this morning showed sodium 143, potassium 2.8 we will give KCl 10 mEq IV x4 and oral potassium KCl 20 mEq p.o. x2, CO2 30, BUN and creatinine 27 and 2.4 slightly better, hypomagnesemia 1.30 we will give magnesium sulfate 2 g IV x1. 10/11/2019 labs are not done this morning, will check results when available. at 0952 RPT #:[id number] OF REPORTPRProgress [id number]:50:00G.[id number] for patient [id number]:52:[address] [facility] 2019-10-11 07:27:00 [id number] [id number] [id number]:27:00 [facility] Progress NoteREPORT#:[id number] REPORT STATUS: SignedDATE:10/11/19 TIME: 726 PATIENT: MAC AGUSTIN UNIT #: [id number]#: [id number] [address] AGE: 74 SEX: F ATTEND: Joel Myers [facility] AUTHOR: Lucy Ayon PA-C * ALL edits or amendments must be made on the electronic/computer document * SubjectiveChief complaint:Pt seen in bed. Not much for conversation. + dementia. State she ate last night outside food brought from [employer]. No complaints. States unable to get oob. Objective GeneralVS:Vital Signs: Date Time Temp Pulse Resp B/P B/P Pulse O2 O2 Flow FiO2 Mean Ox Delivery Rate 10/10 0658 98.6 57 14 114/69 83.9 97 Room air 10/10 0434 98.8 61 17 114/69 83.8 99 Room air 10/09 2320 98.8 64 17 108/69 82.2 98 Room air 10/09 1857 98.2 62 17 96/53 67.5 99 Room air 10/09 1521 98.1 61 17 107/69 82.0 99 Room air 10/09 1012 98.1 60 17 110/66 80.7 95 Room air 10/09 1012 98.1 60 17 110/66 80.7 95 Room air Patient Weight Weight (lb): 123Weight (oz): 3.81Weight (kg): 55.900 Medications:Active Meds + DC'd Last 24 HrsMagnesium Sulfate 50 ML ONCE ONE IV (DC) Potassium Chloride 20 MEQ Q2H PO (DC) Potassium Chloride 50 ML Q1HR IV (DC) Epoetin Dell-epbx 10,000 UNIT We SUBQ Midodrine 5 MG 0900,1300,1700 PO Pantoprazole 40 MG BID@0600,1800 PO Megestrol Acetate 800 MG DAILY PO Zinc Oxide 1 APPLIC BID TOPICAL Lidocaine 1 EA Q24H TOPICAL Insulin Human Lispro 0 AC HS SUBQ Acetaminophen 650 MG Q4H PRN PRN PO Heparin Sodium 5,000 UNIT Q12HR SUBQ Nutrition assessment:The data set between the solid lines has been imported from the dietitian's assessment. Any exceptions have been noted under Provider comments. BMI Calculated: 20.5 Nutrition related diagnosis: Nutrition diagnosis details: Nutrition problem: Nutrition etiology: Nutrition signs and symptoms: Nutrition prescription: Dietitian name: Assessment completed: Provider comments on imported dietitian assessment: Physical ExamGeneral appearance: awakePsych: normal affectHEENT: anicteric, mucosal membranes moist, sclera clearNeck: supple, no JVDCardiovascular: regular rate rhythm, S1/F0Ahmyzdbgzni: aerating well, clear bilaterallyAbdomen: bowel sounds present, non-distended, soft, soft, non-tenderSkin: dry, intactMusculoskeletal - general: Musculoskeletal - general: joints normal, range of motion normal, no swellingNeuro/FAST FOOD ATTENDANT: altered mental status, alert, no motor deficits, no sensory deficits Functional ProgressFunctional progress:per performance of all activities: Y Precautions: Fall Body segments: Elbow, Left Elbow, Right Extremity, Upper Left Extremity, Upper Right Extremity, Upper Paul Patient positioned in: Supine Motion/Planes: Abduction Adduction Extension Flexion Horizontal Abduction Horizontal Adduction Type: Active Repetitions: 10 Sets: 2 ACTIVITY: TREATMENT OUTCOMES: Increased application to functional activities: N Increased resistance: Y Increased range of motion: Y Increased activity tolerance: Y Decreased report of pain with activity: N Decreased edema: N Independent with home exercise program: N Increased speed: N Increased manipulation: N Increased bilateral coordination: N Effects of Treatment: Function improved Comments: Pt progress was inhibited by poor motivation. Pt required verbal cues for tasks initiation/completion. If this is the patient's last treatment, this entry Start Time: 1420 Stop Time: 1430 Treatment time (minutes): 10 Completed by: Nico Joy Supervising Therapist: Nubia Spangler . . SCREEN 1 OF 3 SCREEN 2 OF 3 SCREEN 3 OF 3 .per performance of all activities. Y Precautions: Fall 02 Contact Weightbearing Restrictions: No Restriction Durable Medical Equipment Currently Utilized: Hospital Bed THERAPEUTIC EXERCISE(S) PERFORMED: Type: Active assistive Body Segments: Extremity, Lower Paul Position: Supine Exercise: AP, HIP AB/ADD, HEEL SLIDES Repetitions: 10 Sets: 2 Equipment Utilized: None Safety addressed through use of: Verbal Cues Tactile Cues Alarm(s) Extra Personnel Effects of Treatment: Tolerance increased Therapeutic Exc.Cmt: PER RN TOYIN PATIENT CLEARED TO PARTICIPATE IN PT. PATIENT SUPINE IN BED WITH LATERAL LEAN TO RIGHT. PATIENT DECLINED ANY OOB ACTIVITIES DUE TO INCREASED FATIGUE BUT AGREEABLE TO THEREX. PATIENT PERFORMED AAROM BLE THEREX IN SUPINE POSITION IN ALL AVAILABLE PLANES. WHILE PERFORMING THEREX PT NOTICED PATIENT HAD INCONTINENT EPISODE WITH PATIENT BEING UNAWARE. WITH ASSISTANCE OF RAVEN DEAL PATIENT PERFORMED ROLLING SIDE TO SIDE FOER PERINEAL CARE AT MAX A WITH CUES FOR HAND PLACEMENT TO ASSIST WITH PULLING. PATIENT WITH SOME RAW AREAS ON BOTTOM, RN AWARE. PATIENT WAS RETURNED TO SUPINE POSITION AND WITH ASSISTANCE OF RAVEN DEAL AND PATIENT USING BUE TO PULL, PATIENT WAS RAISED UP TOWARD [facility]. PATIENT BED THEN PLACED IN CHAIR POSITION POST PT WITH ALL NEEDS IN REACH, BED ALARM PLACED, AND RN MADE AWARE OF PATIENT'S STATUS POST PT. If this is the patient's last treatment, this entry Start time: 1440 Stop time: 1505 Treatment Time (minutes): 25 Completed by: Josefa Batista Conference/Supervising PT: Candace Supervising Therapist: [id number] Leo Bates . Y ResultsFindings/Data:Laboratory Tests: 10/10 10/10 10/10 10/09 1130 1003 0657 1948Chemistry Sodium (134 - 147 mEq/L) 142 Potassium (3.4 - 5.0 mEq/L) 3.3 L Chloride (100 - 108 mEq/L) 107 Carbon Dioxide (21 - 33 mEq/L) 29 Anion Gap (0 - 20) 9 BUN (7 - 18 mg/dL) 29 H Creatinine (0.6 - 1.3 mg/dL) 2.6 H Glomerular Filtr Rate (70 - 80) 18.1 L Glucose (70 - 110 mg/dL) 222 H POC Glucose (70 - 110 MG/DL) 233 H 130 H 177 H Calcium (8.0 - 10.5 mg/dL) 7.9 L Magnesium (1.8 - 2.4 mg/dL) 1.40 LHematology WBC (4.5 - 11.0 x10 3/uL) 9.83 RBC (3.54 - 5.02 x10 6/uL) 2.63 L Hgb (11.0 - 15.0 g/dL) 7.9 L Hct (33.0 - 45.0 %) 24.6 L MCV (81.0 - 99.0 fL) 93.5 MCH (27.0 - 33.0 pg) 30.0 MCHC (33.0 - 37.0 g/dL) 32.1 L RDW (11.5 - 14.5 %) 15.1 H Plt Count (150 - 400 x10 3/uL) 283 MPV (7.0 - 9.0 fL) 10.3 H Neut % (Auto) (56.0 - 77.0 %) 73.4 Lymph % (Auto) (14.0 - 32.0 %) 17.1 [place] % (Auto) (4.8 - 9.0 %) 7.4 Eos % (Auto) (0.3 - 3.7 %) 0.9 Baso % (Auto) (0.0 - 2.0 %) 0.7 Neut # (Auto) (2.0 - 7.6 x10 3/uL) 7.21 Lymph # (Auto) (1.0 - 3.8 x10 3/uL) 1.68 [place] # (Auto) (0.1 - 0.8 x10 3/uL) 0.73 Eos # (Auto) (0.0 - 0.2 x10 3/uL) 0.09 Baso # (Auto) (0.0 - 0.2 x10 3/uL) 0.07 Abs Immat Gran (auto) (0.00 - 0.03 x10 3/uL) 0.05 H Add Manual Diff NO Immature Gran % (0.0 - 2.0 %) 0.5 Nucleated RBC % (0 - 0 %) 0.0 Nucleated RBCs # (Man) (0.0 - 0.1 x10 3/uL) 0.00 30 1520 Chemistry POC Glucose (70 - 110 MG/DL) 175 H Diagnosis, Assessment PlanProblem List/A P: 1. Acute renal failure 2. Physical deconditioning 3. Hypomagnesemia 4. Lactic acidosis 5. DKA (diabetic ketoacidoses) 6. Metabolic acidosis 7. Gastric distention Free Text A P:74 years old female with past medical history significant for Alzheimer's dementia, behavioral disturbance, hypertension, type 2 diabetes mellitus, migraine headaches, anxiety disorder, bowel and bladder incontinence, rheumatoidarthritis, frequent UTI. She was admitted secondary to severe lactic acidosis, metabolic acidosis with anion gap secondary to metformin and dehydration. Started on hemodialysis secondary to acute renal failure and lactic acidosis with multiple electrolyte abnormalities including hypokalemia, hypo-Juan anemia, hypocalcemia, hypoalbuminemia. Patient then developed acute pulmonary vascular congestion is being diuresed. Plan: Physical therapy, Occupational Therapy and speech therapy have been consulted. Due to patient being an unreliable historian and moderate dementia she would benefit from returning to snf facility following her [facility]. I discussed with the patient's sslktdyf-yd-ddf who is on the chart as 1 of the contacts and she states their wish is for her to return to [facility] once medically cleared. 10/01: Encourage particpation with therpay.C. Diff not collected. Pt hgb stable.SNF once ready to be discharged. 10/02: Pt looks sleepy this a.m. Cr climbing. Minimal breakfast eaten this a.m. Nephrology on board monitoring. Plans to get MAg and Midodrine started. Encourage particpation with therapy. MAX A with bed mobility. Transfers not attempted. 10/06: COVID ruled out. Pt needs assistance. PT/OT to continue to follow. SNF once cleared. 10/07: Pt likley to DC back to LTC soon. Appears stable. Pt refusing nursing care today. 10/08: Pt refused therapy today. Max A with STS and bed mobility. Poor PO intake. ? feeding tube. 10/09: Refusing OOB activity, but performing bed exercises. Poor po intake. Planis for her to return to [facility] 10/10: Pt seen ate dinner last night. Continue to encourage po intake. Self limiting with OOB with therapy. SNF soon. Rehab attestation:Face to face exam completed. Treatment plan discussed with patient. at [address] [facility] #:[id number] OF REPORTPRProgress Pvcm8266-14-05S28:27:00G.[id number] for patient fgtsYHBGQAMVAPEUAO4836-68-07M38:50:38 [facility] 2019-10-10 22:35:00 [id number]+qW6Qeq2GomwY7mo +jLrXL8FXmwHpXCQ1 ieX46vbpWL6q2Ia5rrP+iQlE8I9050-24-67L07:35:00 [facility] ([facility])Rehab Progress NoteREPORT#:[id number] REPORT STATUS: SignedDATE:10/10/19 TIME: 2234 PATIENT: MAC AGUSTIN UNIT #: [id number]#: [id number] ROOM/BED: 5526-1DOB: [birth year] AGE: 74 SEX: F ATTEND: Joel Myers [facility] AUTHOR: Lucy Ayon PA-C * ALL edits or amendments must be made on the electronic/computer document * SubjectiveChief complaint:Pt seen in bed. Not much for conversation. + dementia. State does not want her lunch, but agrees to eat a oatmeal cookie, but will not pick it up. Objective GeneralVS:Vital Signs: Date Time Temp Pulse Resp B/P B/P Pulse O2 O2 Flow FiO2 Mean Ox Delivery Rate 10/09 1857 98.2 62 17 96/53 67.5 99 Room air 10/09 1521 98.1 61 17 107/69 82.0 99 Room air 10/09 1012 98.1 60 17 110/66 80.7 95 Room air 10/09 1012 98.1 60 17 110/66 80.7 95 Room air 10/09 0648 97.2 59 17 118/77 90.8 98 Room air 10/09 0648 97.2 59 17 118/77 90.8 98 Room air 10/09 0441 99.0 59 16 107/61 76.2 97 Room air 10/09 0441 99.0 59 16 107/61 76.2 97 Room air 10/08 2355 99.0 64 16 108/68 81.8 95 Room air 10/08 2355 99.0 64 16 108/68 81.8 95 Room air Patient Weight Weight (lb): 123Weight (oz): 3.81Weight (kg): 55.900 Medications:Active Meds + DC'd Last 24 HrsMagnesium Sulfate 50 ML ONCE ONE IV (DC) Potassium Chloride 20 MEQ Q2H PO (DC) Potassium Chloride 50 ML Q1HR IV (DC) Epoetin Dell-epbx 10,000 UNIT We SUBQ Midodrine 5 MG 0900,1300,1700 PO Pantoprazole 40 MG BID@0600,1800 PO Megestrol Acetate 800 MG DAILY PO Zinc Oxide 1 APPLIC BID TOPICAL Lidocaine 1 EA Q24H TOPICAL Insulin Human Lispro 0 AC HS SUBQ Acetaminophen 650 MG Q4H PRN PRN PO Heparin Sodium 5,000 UNIT Q12HR SUBQ Physical ExamGeneral appearance: alert, awake, no acute distress, no respiratory distressPsych: normal affectHEENT: anicteric, mucosal membranes moist, sclera clearNeck: supple, no JVDCardiovascular: regular rate rhythm, S1/V9Jnjzwaijcbi: aerating well, clear bilaterallyAbdomen: bowel sounds present, non-distended, soft, soft, non-tenderSkin: dry, intactMusculoskeletal - general: Musculoskeletal - general: joints normal, range of motion normal, no swellingNeuro/FAST FOOD ATTENDANT: altered mental status, alert, no motor deficits, no sensory deficits Functional ProgressFunctional progress: Precautions: Fall 02 Contact Weightbearing Restrictions: No Restriction Durable Medical Equipment Currently Utilized: Hospital Bed THERAPEUTIC EXERCISE(S) PERFORMED: Type: Active assistive Body Segments: Extremity, Lower Paul Position: Supine Exercise: AP, HIP AB/ADD, HEEL SLIDES Repetitions: 10 Sets: 2 Equipment Utilized: None Safety addressed through use of: Verbal Cues Tactile Cues Alarm(s) Extra Personnel Effects of Treatment: Tolerance increased Therapeutic Exc.Cmt: PER RAVEN DEAL PATIENT CLEARED TO PARTICIPATE IN PT. PATIENT SUPINE IN BED WITH LATERAL LEAN TO RIGHT. PATIENT DECLINED ANY OOB ACTIVITIES DUE TO INCREASED FATIGUE BUT AGREEABLE TO THEREX. PATIENT PERFORMED AAROM BLE THEREX IN SUPINE POSITION IN ALL AVAILABLE PLANES. WHILE PERFORMING THEREX PT NOTICED PATIENT HAD INCONTINENT EPISODE WITH PATIENT BEING UNAWARE. WITH ASSISTANCE OF RAVEN DEAL PATIENT PERFORMED ROLLING SIDE TO SIDE FOER PERINEAL CARE AT MAX A WITH CUES FOR HAND PLACEMENT TO ASSIST WITH PULLING. PATIENT WITH SOME RAW AREAS ON BOTTOM, RN AWARE. PATIENT WAS RETURNED TO SUPINE POSITION AND WITH ASSISTANCE OF RAVEN DEAL AND PATIENT USING BUE TO PULL, PATIENT WAS RAISED UP TOWARD HOB. PATIENT BED THEN PLACED IN CHAIR POSITION POST PT WITH ALL NEEDS IN REACH, BED ALARM PLACED, AND RN MADE AWARE OF PATIENT'S STATUS POST PT. Precautions: Fall Body segments: Elbow, Left Elbow, Right Extremity, Upper Left Extremity, Upper Right Extremity, Upper Paul Patient positioned in: Supine Motion/Planes: Abduction Adduction Extension Flexion Horizontal Abduction Horizontal Adduction Type: Active Repetitions: 10 Sets: 2 ACTIVITY: TREATMENT OUTCOMES: Increased application to functional activities: N Increased resistance: Y Increased range of motion: Y Increased activity tolerance: Y Decreased report of pain with activity: N Decreased edema: N Independent with home exercise program: N Increased speed: N Increased manipulation: N Increased bilateral coordination: N Effects of Treatment: Function improved Comments: Pt progress was inhibited by poor motivation. Pt required verbal cues for tasks initiation/completion. If this is the patient's last treatment, this entry Start Time: 1420 Stop Time: 1430 Treatment time (minutes): 10 Completed by: Nico Joy Supervising Therapist: Nubia Spangler ResultsFindings/Data:Laboratory Tests: 10/09 10/09 10/09 10/09 10/09 1948 1520 1009 0647 0446Chemistry Sodium (134 - 147 mEq/L) 143 Potassium (3.4 - 5.0 mEq/L) 2.8 *L Chloride (100 - 108 mEq/L) 106 Carbon Dioxide (21 - 33 mEq/L) 30 Anion Gap (0 - 20) 10 BUN (7 - 18 mg/dL) 27 H Creatinine (0.6 - 1.3 mg/dL) 2.4 H Glomerular Filtr Rate (70 - 80) 19.8 L Glucose (70 - 110 mg/dL) 123 H POC Glucose (70 - 110 MG/DL) 177 H 175 H 136 H 119 H Calcium (8.0 - 10.5 mg/dL) 8.0 Phosphorus (2.5 - 4.9 MG/DL) 3.5 Magnesium (1.8 - 2.4 mg/dL) 1.30 LHematology WBC (4.5 - 11.0 x10 3/uL) 10.88 RBC (3.54 - 5.02 x10 6/uL) 2.86 L Hgb (11.0 - 15.0 g/dL) 8.5 L Hct (33.0 - 45.0 %) 26.4 L MCV (81.0 - 99.0 fL) 92.3 MCH (27.0 - 33.0 pg) 29.7 MCHC (33.0 - 37.0 g/dL) 32.2 L RDW (11.5 - 14.5 %) 14.9 H Plt Count (150 - 400 x10 3/uL) 311 MPV (7.0 - 9.0 fL) 10.7 H Neut % (Auto) (56.0 - 77.0 %) 70.7 Lymph % (Auto) (14.0 - 32.0 %) 20.6 [place] % (Auto) (4.8 - 9.0 %) 6.5 Eos % (Auto) (0.3 - 3.7 %) 1.0 Baso % (Auto) (0.0 - 2.0 %) 0.6 Neut # (Auto) (2.0 - 7.6 x10 3/uL) 7.69 H Lymph # (Auto) (1.0 - 3.8 x10 3/uL) 2.24 [place] # (Auto) (0.1 - 0.8 x10 3/uL) 0.71 Eos # (Auto) (0.0 - 0.2 x10 3/uL) 0.11 Baso # (Auto) (0.0 - 0.2 x10 3/uL) 0.06 Abs Immat Gran (auto) (0.00 - 0.03 0.07 Hx10 3/uL) Add Manual Diff NO Immature Gran % (0.0 - 2.0 %) 0.6 Nucleated RBC % (0 - 0 %) 0.0 Nucleated RBCs # (Man) (0.0 - 0.1 0.00x10 3/uL) Diagnosis, Assessment PlanProblem List/A P: 1. Acute renal failure 2. Physical deconditioning 3. Hypomagnesemia 4. Lactic acidosis 5. DKA (diabetic ketoacidoses) 6. Metabolic acidosis 7. Gastric distention Free Text A P:74 years old female with past medical history significant for Alzheimer's dementia, behavioral disturbance, hypertension, type 2 diabetes mellitus, migraine headaches, anxiety disorder, bowel and bladder incontinence, rheumatoidarthritis, frequent UTI. She was admitted secondary to severe lactic acidosis, metabolic acidosis with anion gap secondary to metformin and dehydration. Started on hemodialysis secondary to acute renal failure and lactic acidosis with multiple electrolyte abnormalities including hypokalemia, hypo-Juan anemia, hypocalcemia, hypoalbuminemia. Patient then developed acute pulmonary vascular congestion is being diuresed. Plan: Physical therapy, Occupational Therapy and speech therapy have been consulted. Due to patient being an unreliable historian and moderate dementia she would benefit from returning to snf facility following her [facility]. I discussed with the patient's aeqeiwjh-az-mit who is on the chart as 1 of the contacts and she states their wish is for her to return to [facility] once medically cleared. 10/01: Encourage particpation with therpay.C. Diff not collected. Pt hgb stable.SNF once ready to be discharged. 10/02: Pt looks sleepy this a.m. Cr climbing. Minimal breakfast eaten this a.m. Nephrology on board monitoring. Plans to get MAg and Midodrine started. Encourage particpation with therapy. MAX A with bed mobility. Transfers not attempted. 10/06: COVID ruled out. Pt needs assistance. PT/OT to continue to follow. SNF once cleared. 10/07: Pt likley to DC back to LTC soon. Appears stable. Pt refusing nursing care today. 10/08: Pt refused therapy today. Max A with STS and bed mobility. Poor PO intake. ? feeding tube. 10/09: Refusing OOB activity, but performing bed exercises. Poor po intake. Planis for her to return to [facility] Rehab attestation:Face to face exam completed. Treatment plan discussed with patient. at 2249 RPT #:[id number] OF REPORTPRProgress Atis9475-26-00W56:35:00G.[id number] for patient dpukIDNYITOKZWWXKL0370-46-26P14:50:00 [facility] 2019-10-10 08:06:00 [id number] lrCnAvMqr20Rvr/tu nfG41muCjZGCF0+kH30iUY7P8M5976-35-26U28:06:00 [facility] ([facility]Neph[facility] Progress NoteREPORT#:[id number] REPORT STATUS: SignedDATE:10/10/19 TIME: 805 PATIENT: MAC AGUSTIN UNIT #: [id number]#: [id number] [address] [birth year] AGE: 74 SEX: F ATTEND: Joel Myers [facility] AUTHOR: Rabia Aguilar MD * ALL edits or amendments must be made on the electronic/computer document * SubjectiveChief Complaint:AMS/Lactic acidosis/AKIPatient reports:No: complaints. Comments:Patient seen and evaluated, HPI no change from initial, feels okay Review of SystemsUnable to obtain due to:Patient's condition Objective GeneralVS/I O:Vital Signs: Date Time Temp Pulse Resp B/P B/P Pulse O2 O2 Flow FiO2 Mean Ox Delivery Rate 10/09 0648 36.2 59 17 118/77 90.8 98 Room air 10/09 0441 37.2 59 16 107/61 76.2 97 Room air 10/08 2355 37.2 64 16 108/68 81.8 95 Room air 10/08 1928 36.9 75 16 94/59 70.9 97 Room air 10/08 1540 36.9 61 17 105/60 74.9 95 Room air 10/08 1058 36.7 62 17 124/76 92.2 95 Room air 10/08 0840 Nasal 3.646362 cannula 24 hour I O ending at 0700: 10/09 0700 10/08 1900 Intake Total 120 80 Output Total Balance 120 80 Intake, Oral 120 60 Intake, Oral 20 Supplement Number 1 Bowel Movements Number 2 Incontinent Voids Patient 55.9 kg 75.75 kg Weight Weight Bed scale Measurement Method MedicationsActive Meds + DC'd Last 24 HrsPotassium Chloride 20 MEQ Q2H PO Potassium Chloride 50 ML Q1HR IV Epoetin Dell-epbx 10,000 UNIT We SUBQ Potassium Chloride 20 MEQ Q2H PO (DC) Magnesium Sulfate 50 ML ONCE ONE IV (DC) Midodrine 5 MG 0900,1300,1700 PO Pantoprazole 40 MG BID@0600,1800 PO Megestrol Acetate 800 MG DAILY PO Zinc Oxide 1 APPLIC BID TOPICAL Lidocaine 1 EA Q24H TOPICAL Insulin Human Lispro 0 AC HS SUBQ Acetaminophen 650 MG Q4H PRN PRN PO Heparin Sodium 5,000 UNIT Q12HR SUBQ Physical ExamGeneral appearance: alert, no acute distressHead/eyes: atraumatic, normocephalicENT: normal noseNeck: supple/no meningismusCardiovascular: normal heart sounds, no rubRespiratory: aerating well, symmetric expansionAbdomen: softGenitourinary: no foleyExtremities: no edemaMusculoskeletal: normal inspectionNeuro/FAST FOOD ATTENDANT: altered mental statusSkin: dry ResultsFindings/Data:Laboratory Tests 10/09 10/08 10/08 10/08 10/08 0446 1926 1539 1125 1057 Chemistry Sodium (134 - 147 mEq/L) 143 Potassium (3.4 - 5.0 mEq/L) 2.8 *L Chloride (100 - 108 mEq/L) 106 Carbon Dioxide (21 - 33 mEq/L) 30 Anion Gap (0 - 20) 10 BUN (7 - 18 mg/dL) 27 H Creatinine (0.6 - 1.3 mg/dL) 2.4 H Glomerular Filtr Rate (70 - 80) 19.8 L Glucose (70 - 110 mg/dL) 123 H POC Glucose (70 - 110 MG/DL) 234 H 127 H 144 H Calcium (8.0 - 10.5 mg/dL) 8.0 Phosphorus (2.5 - 4.9 MG/DL) 3.5 Magnesium (1.8 - 2.4 mg/dL) 1.30 L Iron (35 - 150 mcg/dL) 56 TIBC (260 - 445 mcg/dL) 163 L % Saturation (14 - 34 %) 34.4 H Unsat Iron Binding (mcg/dL) 107 Ferritin (11.0 - 306.8 ng/mL) 182.0 Diagnosis, Assessment PlanFree Text A P:Patient seen and evaluated, discussed with care team, images and laboratories reviewed.History of dementiaHistory of rheumatoid arthritisHistory of frequent fallsHistory of frequent UTIsHistory of hypertension: Currently hypotensiveHypokalemia: We will supplementSevere hypomagnesemia we will supplementHypocalcemia: We will supplementHypoalbuminemiaSevere lactic acidosis: Etiology, could be related to septic shock, however source is unclear, rule out ischemic bowel, Zosyn, will need to review her medications if patient has been on metformin, lactic acidosis due to metformin in the setting of acute renal failure is a possibility and will do hemodialysis in the setting.Patient has been taking Metformin 1000 BID, kenneth has lactic acidosis that is induced by Metformin, discussed with deysi and ICC/Primary team will proceed with HD09/27/2019 mental status a lot better, hemodynamically more stable, pressors being weaned off, received 6 hours of hemodialysis yesterday, her last set of blood gas showed a pH of 7.40, PCO2 25, PO2 55, lactic acid 6.2 improving, sodium is 143 potassium 3.6 CO2 20 chloride 101 BUN 13 creatinine 1.1, hemoglobin this morning 9.7, white blood count 19.78 trending down, platelet 156, her clinical picture is consistent with metformin induced lactic acidosis, will do another session of hemodialysis, 4 hours, potassium 3.5, no ultrafiltration, will give 20 mmol of potassium phosphate and expectation of hypophosphatemia during hemodialysis. katie and evaluated during HD, discussed with RN and HD nurse09/28/2019 laboratories from this morning showed sodium 144, potassium 3.3 we will give KCl 20 mEq IV x1, chloride 104, bicarbonate 16, creatinine 1.2, lacticacid 1.2, hemoglobin 8.4, white blood count 15.2, blood culture still negative, anion gap today is 24 with a normal lactic acid etiology unclear will repeat BMP, repeat lactic acid and order serum acetone and do urinalysis to check for urine ketones, also will do a blood gas. Ketones came back as large, This is likley starvation ketoacidosis that has been exacerbated by gluconeogenesis inhibition by Metformin and has been reported in the literature, will start Glucose and insulin drip09/29/2019 laboratories from this morning showed sodium 142, potassium 2.7 we will give KCl 20 mEq IV x2, bicarbonate 32 with a chloride of 103 with disappearance of the anion gap correction of anion gap, will DC IV fluid with sodium bicarbonate, will DC insulin drip, changed to insulin sliding scale, start D10 at 30 cc/h since patient is noted nauseated, her chest x-ray showed pulmonary edema, will give IV Lasix 60 mg every 8 hours, give a dose of metolazone, her phosphorus 1.4, will give potassium phosphate 15 mmol IV x1, recheck lab in the afternoon, her lactic acid is 4 up some, not clear why is it elevated, we will recheck in the afternoon, her creatinine is 2.2, not sure whather baseline creatinine, her creatinine is relatively stable since yesterday, will monitor closely, hemoglobin is 7.8, white blood count 13.57 improving.09/30/2019 laboratories from this morning showed sodium 138, potassium 3.5, CO2 34, chloride 100, BUN and creatinine 22 and 2.4 up some likely related to diuretics, albumin 1.8, hemoglobin 7.8, platelet 60, white blood count 10.51 continues to trend down, lactic acid 1.2 within normal limit, urine output krffv2298 cc with Lasix. Chest x-ray still pending. Progressive thrombocytopenia with progressive decrease in hemoglobin, the latter could be related to fluid resuscitation, multiple blood draws and blood loss during dialysis procedure, however will check LDH, haptoglobin, PT/ PT. 10/01/2019 patient was transferred to the floor, PT PTT are within normal limit, LDH slightly elevated 276, liver function tests are within normal limit, haptoglobin pending, chest x-ray is better from yesterday. Sodium 138 today potassium 3.8, CO2 32, BUN and creatinine 25 and 2.6 trending up likely related to volume contraction. Will check post void resdiual10/03/2019 laboratories from this morning showed sodium 137, potassium 3.6, CO2 28, BUN and creatinine 30 and 3.0 continue to rise, blood pressures on the low side will try midodrine 5 mg p.o. 3 times daily, hypomagnesemia 1.7 we will givemagnesium sulfate 1 g IV x1, hemoglobin 8.1, white blood count 5.21, will check the results of postvoid residual. BNP 109 will increase IVF to 75 cc per 10/04/19 Hgb 8.4, WBC 109, Na 136, K 4.1, HCO3 23, BUN 31, Creat 3.0 stable sinceyesterday, continue IVF10/05/2019 laboratories from today showed hemoglobin 8, platelet 192, white bloodcount 7.15, sodium 138, potassium 3.3 we will give KCl 10 mEq IV x3 doses, CO2 28, BUN and creatinine 27 and 2.7 trending down, continue IV fluid.10/06/2019 laboratories from this morning showed hemoglobin 7.6, white blood count 7.11, platelet 212, sodium 139, potassium 3.6, CO2 23, BUN and creatinine 26 and 2.6 continue to trend down, continue IV fluid.10/07/2019 laboratories from this morning showed sodium 139, potassium 3.1 we will give KCl 10 mEq IV times 4 doses, CO2 24, BUN and creatinine 27 and 22.4 improving, hypomagnesemia 1.5 we will give magnesium sulfate 2 g IV x1, hemoglobin 8, platelet 216.Chest x-ray from yesterday showed mild congestion, her BNP was 300, IV fluid was DC'd. 10/09/2019 laboratories from this morning showed sodium 141, potassium 3.3 we will give KCl 20 mEq p.o. x2 doses, CO2 23, BUN 28, creatinine 2.5 up some, hypomagnesemia 1.5 we will give magnesium sulfate 2 g IV x1, anemia hemoglobin 7.6 we will check iron studies and start Epogen 10,000 subcu once a week.10/10/2019 laboratories from this morning showed sodium 143, potassium 2.8 we will give KCl 10 mEq IV x4 and oral potassium KCl 20 mEq p.o. x2, CO2 30, BUN and creatinine 27 and 2.4 slightly better, hypomagnesemia 1.30 we will give magnesium sulfate 2 g IV x1. at 1135 RPT #:[id number] OF REPORTPRProgress Aucd0511-11-68X01:06:00G.[id number] for patient fvvwKTSHZMUOTRBLCL3950-09-68Q25:35:[address] [facility] 2019-10-10 07:44:00 [id number] yIanQ4ZbGrWoWiSl2 355AHI34FfORyCfu8/Eg5y7kML6945-10-16Q94:44:00 [facility]ospital[facility] Progress NoteREPORT#:[id number] REPORT STATUS: SignedDATE:10/10/19 TIME: 0744 PATIENT: MAC AGUSTIN UNIT #: [id number]#: [id number] [address] [birth year] AGE: 74 SEX: F ATTEND: Joel Myers AUTHOR: Joel Myers MD * ALL edits or amendments must be made on the electronic/computer document * SubjectiveChief Complaint:follow up for NATHEN/CKD, HTN.states feels ok Review of SystemsAdditional notes:12 point ROS negative except for mentioned in HPI. Objective GeneralVS/I O:Vital Signs: Date Time Temp Pulse Resp B/P B/P Pulse O2 O2 Flow FiO2 Mean Ox Delivery Rate 10/09 0648 97.2 59 17 118/77 90.8 98 Room air 10/09 0441 99.0 59 16 107/61 76.2 97 Room air 10/08 2355 99.0 64 16 108/68 81.8 95 Room air 10/08 1928 98.4 75 16 94/59 70.9 97 Room air 10/08 1540 98.4 61 17 105/60 74.9 95 Room air 10/08 1058 98.1 62 17 124/76 92.2 95 Room air 10/08 0840 Nasal 3.099127 cannula 24 hour I O ending at 0700: 10/09 0700 10/08 1900 Intake Total 120 80 Output Total Balance 120 80 Intake, Oral 120 60 Intake, Oral 20 Supplement Number 1 Bowel Movements Number 2 Incontinent Voids Patient 55.9 kg 75.75 kg Weight Weight Bed scale Measurement Method Patient Weight Weight (lb): 123Weight (oz): 3.81Weight (kg): 55.900 Medications:Active Meds + DC'd Last 24 HrsEpoetin Dell-epbx 10,000 UNIT We SUBQ Potassium Chloride 20 MEQ Q2H PO (DC) Magnesium Sulfate 50 ML ONCE ONE IV (DC) Midodrine 5 MG 0900,1300,1700 PO Pantoprazole 40 MG BID@0600,1800 PO Megestrol Acetate 800 MG DAILY PO Zinc Oxide 1 APPLIC BID TOPICAL Lidocaine 1 EA Q24H TOPICAL Insulin Human Lispro 0 AC HS SUBQ Acetaminophen 650 MG Q4H PRN PRN PO Heparin Sodium 5,000 UNIT Q12HR SUBQ Physical ExamGeneral appearance: confused, alert, awakeHead/Eyes: atraumatic, normocephalicENT: moist mucosal membranesNeck: non-tender, no JVD, no masses or swellingCardiovascular: normal heart sounds, regular rate rhythmRespiratory: decreased breath sounds, rales (basal), rhonchi, symmetric expansion, no distress, no rales appreciated on anterior examAbdomen: soft, no distention, no guarding, no reboundGenitourinary: no bladder distentionExtremities: edema (bLE +1), no clubbing, no cyanosisMusculoskeletal: normal inspectionNeuro/FAST FOOD ATTENDANT: no motor deficitsSkin: no rashPsychiatry: normal affect ResultsFindings/Data:Laboratory Tests 10/08 10/08 10/08 10/08 1926 1539 1125 1057 Chemistry POC Glucose (70 - 110 MG/DL) 234 H 127 H 144 H Iron (35 - 150 mcg/dL) 56 TIBC (260 - 445 mcg/dL) 163 L % Saturation (14 - 34 %) 34.4 H Unsat Iron Binding (mcg/dL) 107 Ferritin (11.0 - 306.8 ng/mL) 182.0 Diagnosis, Assessment Plan Free Text DxA P NotesFree text DxA P notes:Severe lactic acidosisSevere metabolic acidosisAcute renal failureHypocalcemiaHypomagnesemia?Septic shock vs lactic acidosis from metforminDehydrationHypothermiaDMHTNDementia with behavior disturbancepersistent hypoglycemia Plan:Ms. Agustin is a 74 yo female with non-specific symptoms of not feeling well, poor appetite that was found to have abnormal labs at [facility], sent to ED for evaluation. In the ED, found to have severe lactic and metabolic acidosis. Discussed at length with ICU (Dr. Lin) and Renal (Dr Aguilar). Given her de le[facility] imaging, urinalysis, CXR are unremarkable for this level of acidosis, perhaps this acidosis is secondary to metformin. Plan is to dialyize patient to look for improvement. If no improvement, perhaps this is ischemic bowel. Will continue empiric Zosyn. - Zosyn- blood cultures pending- hold home meds- Accuchecks and SSI- replace electrolytes- heparin for DVT prophylaxsis 09/26Improved lactic acidosis with dialysis. Given improvement, likely this was lactic acidosis secondary to metformin. WBC persistently elevated at 19, will continue broad spectrum abx for now - blood cultures negative - UA unremarkable - monitor CBC for downtrend - if WBC remains elevated with mention of possible neoplasm in stomach, would consider work up however, this patient has dementia with low quality of life, not a good candidate for work up/treatment.BS well controlled with current insulin scheduleCheck labs in am 09/27Lactate remains normal, continue to hold metforminPt noted return of anion gap acidosis with ketonuria. Discussed with Dr. Aguilar, nephrology. Pt placed on DKA protocol to close anion gap, on D10 for glucose needs while on insulin drip.BNP elevated with clear lungs, no dependent edema, decreased O2 requirement. Give one dose of Lasix 40 mg IV, check CXR in the am, monitor for volume overload while getting DKA fluids.WBC decreased to 15, continue abx for now, d/c after 5 daysSome blood noted in stool, CT with signs of chronic inflammation. Given her dementia, unsure that patient would tolerate bowel prep. GI consulted. Appreciate input on area in stomach with possible neoplasm. Check labs in am 09/28Anion gap closed, off insulin dripElevated lactate, monitorCXR shows severe vascular congestion and pleural fluid, likely related to fluidsgiven for lactic acidosis and metabolic acidosis, pt not in respiratory distress - Lasix 60 mg IV q8 iniated by nephrology - D10 at 30 cc/hr to maintain blood sugarWBC decreased to 13, d/c abx after 5 daysColon with chronic inflammation, no work up per GIWill need EGD to evaluate abnormality in gastric wall once improvedCheck labs in am 09/29Off insulin dripCXR reviewedCont lasixWBC count came down to 10.5On zosynTransfer to the floordw RN, TRUCK DRIVER TEAMSTER, consultantsCXR and telemetry personally reviewedFurther recs per clinical course 10/01/2019 - blood sugars stable on D10W. will switch to D5W - consider endo eval if persistently hypoglycemic - monitor renal function closely - off antibiotics - await stool samples. no diarrhea overnight - PT/OT - start mobilizing. rehab eval - on IV PPI. ? switch to po - will defer to GI - ? need for EGD 10/02/2019 - Back on Heparin SQ - Megace started. - switched to po PPI. - Blood sugars up. will d/c IV fluids at this time and monitor blood sugars closely - observe off antibiotics - mobilize - likely back to SNF in the next 1-2 days 10/03/2019 - will restart IV fluids due to worsening renal function - clinically dry. not taking in any signficant food or liquids - follow creatinine closelly - continue Megace - anticipate back to SNF once renal function more stable - Heparin for VTE 10/04/2019 - follow renal function - on IVF. renal increased rate - watch for volume overload - off antibiotics - continue Megace - on Heparin 10/05/2019 - follow creatinine. continue IVF for now - Heparing for VTE - renal following - d/w patient's nurse. - calorie counting 10/06/2019 - patient very short of breath. suspicious for volume overload - will stop IVF - give 1 dose of lasix - check CXR and BNP - continue Megace - BP more stable on Midodrine - continue to mobilize - heparin for VTE - daughter voiced concern about patient's exposure to COVID at the facility shecame from. Will test for COVID-19 10/07/2019 - Rapid COVID and PCR test negative - transfer out of [facility] - replete K+ and Mg+ - off IV fluids. - renal function improving 10/08/2019- pt reports feeling ok today, but is refusing all nursing care and refuses lab draw today- blood sugars adequately controlled for now, continue to hold metformin- appetite improved, monitor blood sugars closely, may need to start SSI as patient starts to eat more- nephrology following, continue to monitor renal function, HD per nephrology- d/c planning: reutrn to SNF when medically stable 10/09/2019- cooperative with care today, feeling OK- blood sugars elevated yesterday PM, continue sliding scale insulin and monitorfor now- Cr stable at 2.5 today, continue to monitor renal function, HD per nephrology- encourage oral intake- k 3.3 today, replacement ordered per renal, mag replacement ordered per renal 10/10/2019 - blood sugars fluctuating. will be very careful in giving long acting agents as her dietary intake is erratic which will make her prone to develop hypoglycemia - continue sliding scale - monitor renal function closely. renal service following - replete lytes - back to SNF/HI once renal function stabilizestotal time spent with evaluating patient/data as well as providing education/counselling to patient was more than 35 minutes at 0838 RPT #:[id number] OF REPORTPRProgress [id number]:44:00G.[id number] for patient ybolSABMRHQQVAXGEG3782-50-47S02:38:[address] [facility] 2019-10-09 15:23:00 [id number]+A46Isg+e 5x7oxUlKA5+lyxG+t xplZfIREMa+hITx6j20BZlzYQa7083-41-79V89:23:00 [facility])Rehab Progress NoteREPORT#:[id number] REPORT STATUS: SignedDATE:10/09/19 TIME: 1523 PATIENT: MAC AGUSTIN UNIT #: [id number]#: [id number] [address] [birth year] AGE: 74 SEX: F ATTEND: Joel Myers [facility] AUTHOR: Lucy Ayon PA-C * ALL edits or amendments must be made on the electronic/computer document * SubjectiveChief complaint:Pt seen in bed. Not much for conversation. + dementia and unreliable. Objective GeneralVS:Vital Signs: Date Time Temp Pulse Resp B/P B/P Pulse O2 O2 Flow FiO2 Mean Ox Delivery Rate 10/08 1058 98.1 62 17 124/76 92.2 95 Room air 10/08 0840 Nasal 3.521312 cannula 10/08 0645 98.1 62 17 110/67 81.4 99 Room air 10/08 0431 98.4 63 16 112/73 85.9 96 Room air 10/08 0036 97.9 70 12 98/56 69.9 96 Room air 10/07 2118 Nasal 3.390742 cannula 10/07 1924 98.6 70 17 102/65 77.4 96 Room air 10/07 1539 97.9 77 18 102/58 72.3 97 Patient Weight Weight (lb): 167Weight (oz): 15.88Weight (kg): 75.75 Medications:Active Meds + DC'd Last 24 HrsEpoetin Dell-epbx 10,000 UNIT We SUBQ Potassium Chloride 20 MEQ Q2H PO (DC) Magnesium Sulfate 50 ML ONCE ONE IV (DC) Midodrine 5 MG 0900,1300,1700 PO Pantoprazole 40 MG BID@0600,1800 PO Megestrol Acetate 800 MG DAILY PO Zinc Oxide 1 APPLIC BID TOPICAL Lidocaine 1 EA Q24H TOPICAL Insulin Human Lispro 0 AC HS SUBQ Acetaminophen 650 MG Q4H PRN PRN PO Heparin Sodium 5,000 UNIT Q12HR SUBQ Physical ExamGeneral appearance: alert, no respiratory distressPsych: normal affectHEENT: anicteric, mucosal membranes moist, sclera clearNeck: supple, no JVDCardiovascular: regular rate rhythm, S1/Y9Pqeqqxakezl: aerating well, clear bilaterallyAbdomen: bowel sounds present, non-distended, soft, soft, non-tenderSkin: dry, intactMusculoskeletal - general: Musculoskeletal - general: joints normal, range of motion normal, no swellingNeuro/FAST FOOD ATTENDANT: altered mental status, alert, no motor deficits, no sensory deficits Functional ProgressFunctional progress:rmance of all activities. Y Precautions: Fall 02 Contact Safety addressed through use of: Gait Belt Verbal Cues Tactile Cues Alarm(s) Weightbearing Restrictions: No Restriction ACTIVITIES PERFORMED: Bed Mobility - Rolling: Maximal Assistance Bed Mobility - Supine to Sit: Maximal Assistance Bed Mobility - Sit to Supine: Maximal Assistance Scooting: Maximal Assistance Pivot Transfer: Maximal Assistance Trunk control: Supervision or Set-up Sit to Stand: Maximal Assistance Static Sitting: Supervision or Set-up Dynamic Sitting: Minimal Assistance Static Standing: Moderate Assistance Dynamic Standing: Maximal Assistance Functional Ambulation: Maximal Assistance Distance in Feet: 3 STEPS Functional Exercises: BED MOBILITY SITTING BALANCE TRANSFER TRAINING Durable Medical Equipment Currently Utilized: HOSP BED RW BSChair Effects of Treatment: Tolerance increased Self management improved Safety awareness improved Functional Mob.Cmt: Pt WAS SUPINE IN BED UPON ARRIVAL WITH DAUGHTER PRESENT. Pt COMPLAINED OF FATIGUE BUT AGREED TO WORK WITH PT. Pt COMPLETED BED MOBILITY AT MAX A FOR TRUNK/BLE ASSIST. Pt COMPLETED SITTING BALANCE X10' AT CLOSE SBA. Pt COMPLETED SIT<>STANDS X2 AT MAX A FOR LIFT ASSIST WITH MAX ENCOURAGEMENT. Pt COMPLETED STAND PIVOT TRANSFER WITH 3 STEPS RW AND MAX A TO BSChair. Pt LEFT SITTING IN BSChair WITH CHAIR ALARM SET, CALL WILSON IN REACH, AND FAMILY PRESENT. RN INFORMED OF Pt STATUS. If this is the patient's last treatment, this entry Start time: 1222 Stop time: 1250 Treatment Time (minutes): 28 Completed by: Vanna Higgins Conference/Supervising PT: Y Supervising Therapist: Jeni Martinezgildo Pt refused OT today. ResultsFindings/Data:Laboratory Tests: 10/08 10/08 10/08 10/08 1125 1057 0644 0420Chemistry Sodium (134 - 147 mEq/L) 141 Potassium (3.4 - 5.0 mEq/L) 3.3 L Chloride (100 - 108 mEq/L) 108 Carbon Dioxide (21 - 33 mEq/L) 23 Anion Gap (0 - 20) 13 BUN (7 - 18 mg/dL) 28 H Creatinine (0.6 - 1.3 mg/dL) 2.5 H Glomerular Filtr Rate (70 - 80) 18.9 L Glucose (70 - 110 mg/dL) 142 H POC Glucose (70 - 110 MG/DL) 144 H 136 H Calcium (8.0 - 10.5 mg/dL) 7.8 L Phosphorus (2.5 - 4.9 MG/DL) 3.1 Magnesium (1.8 - 2.4 mg/dL) 1.60 L Iron (35 - 150 mcg/dL) 56 TIBC (260 - 445 mcg/dL) 163 L % Saturation (14 - 34 %) 34.4 H Unsat Iron Binding (mcg/dL) 107 Ferritin (11.0 - 306.8 ng/mL) 182.0Hematology WBC (4.5 - 11.0 x10 3/uL) 10.44 RBC (3.54 - 5.02 x10 6/uL) 2.52 L Hgb (11.0 - 15.0 g/dL) 7.6 L Hct (33.0 - 45.0 %) 24.3 L MCV (81.0 - 99.0 fL) 96.4 MCH (27.0 - 33.0 pg) 30.2 MCHC (33.0 - 37.0 g/dL) 31.3 L RDW (11.5 - 14.5 %) 15.0 H Plt Count (150 - 400 x10 3/uL) 193 MPV (7.0 - 9.0 fL) 11.6 H Neut % (Auto) (56.0 - 77.0 %) 70.1 Lymph % (Auto) (14.0 - 32.0 %) 21.1 [place] % (Auto) (4.8 - 9.0 %) 7.0 Eos % (Auto) (0.3 - 3.7 %) 1.0 Baso % (Auto) (0.0 - 2.0 %) 0.3 Neut # (Auto) (2.0 - 7.6 x10 3/uL) 7.33 Lymph # (Auto) (1.0 - 3.8 x10 3/uL) 2.20 [place] # (Auto) (0.1 - 0.8 x10 3/uL) 0.73 Eos # (Auto) (0.0 - 0.2 x10 3/uL) 0.10 Baso # (Auto) (0.0 - 0.2 x10 3/uL) 0.03 Abs Immat Gran (auto) (0.00 - 0.03 x10 3/uL) 0.05 H Add Manual Diff NO Immature Gran % (0.0 - 2.0 %) 0.5 Nucleated RBC % (0 - 0 %) 0.2 H Nucleated RBCs # (Man) (0.0 - 0.1 x10 3/uL) 0.02 10/07 10/07 1925 1540 Chemistry POC Glucose (70 - 110 MG/DL) 282 H 279 H Diagnosis, Assessment PlanProblem List/A P: 1. Acute renal failure 2. Physical deconditioning 3. Hypomagnesemia 4. Lactic acidosis 5. DKA (diabetic ketoacidoses) 6. Metabolic acidosis 7. Gastric distention Free Text A P:74 years old female with past medical history significant for Alzheimer's dementia, behavioral disturbance, hypertension, type 2 diabetes mellitus, migraine headaches, anxiety disorder, bowel and bladder incontinence, rheumatoidarthritis, frequent UTI. She was admitted secondary to severe lactic acidosis, metabolic acidosis with anion gap secondary to metformin and dehydration. Started on hemodialysis secondary to acute renal failure and lactic acidosis with multiple electrolyte abnormalities including hypokalemia, hypo-Juan anemia, hypocalcemia, hypoalbuminemia. Patient then developed acute pulmonary vascular congestion is being diuresed. Plan: Physical therapy, Occupational Therapy and speech therapy have been consulted. Due to patient being an unreliable historian and moderate dementia she would benefit from returning to snf facility following her [facility]. I discussed with the patient's mqyhurgj-sm-uwu who is on the chart as 1 of the contacts and she states their wish is for her to return to [facility] once medically cleared. 10/01: Encourage particpation with therpay.C. Diff not collected. Pt hgb stable.SNF once ready to be discharged. 10/02: Pt looks sleepy this a.m. Cr climbing. Minimal breakfast eaten this a.m. Nephrology on board monitoring. Plans to get MAg and Midodrine started. Encourage particpation with therapy. MAX A with bed mobility. Transfers not attempted. 10/06: COVID ruled out. Pt needs assistance. PT/OT to continue to follow. SNF once cleared. 10/07: Pt likley to DC back to LTC soon. Appears stable. Pt refusing nursing care today. 10/08: Pt refused therapy today. Max A with STS and bed mobility. Poor PO intake. ? feeding tube. Rehab attestation:. at 1853 RPT #:[id number] OF REPORTPRProgress [id number]:23:00G.[id number] for patient tqvlNLKQESRSJFIRCO2965-98-99E85:54:[address] [facility] 2019-10-09 12:54:00 [id number] +w9f8ytCFpSAXdKx9 Nk7c+F9LwiRUJO/Jb7jiJSNnYn6141-06-19E55:54:00 [facility] Progress NoteREPORT#:[id number] REPORT STATUS: SignedDATE:10/09/19 TIME: 1254 PATIENT: MAC AGUSTIN UNIT #: [id number]#: [id number] [address] [birth year] AGE: 74 SEX: F ATTEND: Joel Myers AUTHOR: Joel Myers MD * ALL edits or amendments must be made on the electronic/computer document * SubjectiveChief Complaint:follow up for NATHEN/CKD, HTN.states feels ok Review of SystemsAdditional notes:12 point ROS negative except for mentioned in HPI.All systems rev neg: except as markedUnable to obtain due to:patient with severe dementia Objective GeneralVS/I O:Vital Signs: Date Time Temp Pulse Resp B/P B/P Pulse O2 O2 Flow FiO2 Mean Ox Delivery Rate 10/08 1058 98.1 62 17 124/76 92.2 95 Room air 10/08 0840 Nasal 3.356841 cannula 10/08 0645 98.1 62 17 110/67 81.4 99 Room air 10/08 0431 98.4 63 16 112/73 85.9 96 Room air 10/08 0036 97.9 70 12 98/56 69.9 96 Room air 10/07 2118 Nasal 3.846252 cannula 10/07 1924 98.6 70 17 102/65 77.4 96 Room air 10/07 1539 97.9 77 18 102/58 72.3 97 24 hour I O ending at 0700: 10/08 0700 10/07 1900 Intake Total 500 1060 Output Total Balance 500 1060 Intake, Oral 500 720 Intake, Oral 340 Supplement Number 3 2 Bowel Movements Number 3 3 Incontinent Voids Patient Weight Weight (lb): 167Weight (oz): 15.88Weight (kg): 75.75 Medications:Active Meds + DC'd Last 24 HrsEpoetin Dell-epbx 10,000 UNIT We SUBQ Potassium Chloride 20 MEQ Q2H PO (DC) Magnesium Sulfate 50 ML ONCE ONE IV (DC) Midodrine 5 MG 0900,1300,1700 PO Pantoprazole 40 MG BID@0600,1800 PO Megestrol Acetate 800 MG DAILY PO Zinc Oxide 1 APPLIC BID TOPICAL Lidocaine 1 EA Q24H TOPICAL Insulin Human Lispro 0 AC HS SUBQ Acetaminophen 650 MG Q4H PRN PRN PO Heparin Sodium 5,000 UNIT Q12HR SUBQ Physical ExamHead/Eyes: atraumatic, normocephalicENT: moist mucosal membranesNeck: non-tender, no JVD, no masses or swellingCardiovascular: normal heart sounds, regular rate rhythmRespiratory: decreased breath sounds, rales (basal), rhonchi, symmetric expansion, no distress, no rales appreciated on anterior examAbdomen: soft, no distention, no guarding, no reboundGenitourinary: no bladder distentionExtremities: edema (bLE +1), no clubbing, no cyanosisMusculoskeletal: normal inspectionNeuro/FAST FOOD ATTENDANT: no motor deficitsSkin: no rashLymphatics: neck normalPsychiatry: normal affect ResultsFindings/Data:Laboratory Tests 10/08 10/08 10/08 10/07 10/07 1125 0644 0420 1925 1540 Chemistry Sodium (134 - 147 mEq/L) 141 Potassium (3.4 - 5.0 mEq/L) 3.3 L Chloride (100 - 108 mEq/L) 108 Carbon Dioxide (21 - 33 mEq/L) 23 Anion Gap (0 - 20) 13 BUN (7 - 18 mg/dL) 28 H Creatinine (0.6 - 1.3 mg/dL) 2.5 H Glomerular Filtr Rate (70 - 80) 18.9 L Glucose (70 - 110 mg/dL) 142 H POC Glucose (70 - 110 MG/DL) 136 H 282 H 279 H Calcium (8.0 - 10.5 mg/dL) 7.8 L Phosphorus (2.5 - 4.9 MG/DL) 3.1 Magnesium (1.8 - 2.4 mg/dL) 1.60 L Iron (35 - 150 mcg/dL) 56 TIBC (260 - 445 mcg/dL) 163 L % Saturation (14 - 34 %) 34.4 H Unsat Iron Binding (mcg/dL) 107 Ferritin (11.0 - 306.8 ng/mL) 182.0 Laboratory Tests 10/08 0420 Hematology WBC (4.5 - 11.0 x10 3/uL) 10.44 RBC (3.54 - 5.02 x10 6/uL) 2.52 L Hgb (11.0 - 15.0 g/dL) 7.6 L Hct (33.0 - 45.0 %) 24.3 L MCV (81.0 - 99.0 fL) 96.4 MCH (27.0 - 33.0 pg) 30.2 MCHC (33.0 - 37.0 g/dL) 31.3 L RDW (11.5 - 14.5 %) 15.0 H Plt Count (150 - 400 x10 3/uL) 193 MPV (7.0 - 9.0 fL) 11.6 H Neut % (Auto) (56.0 - 77.0 %) 70.1 Lymph % (Auto) (14.0 - 32.0 %) 21.1 [place] % (Auto) (4.8 - 9.0 %) 7.0 Eos % (Auto) (0.3 - 3.7 %) 1.0 Baso % (Auto) (0.0 - 2.0 %) 0.3 Neut # (Auto) (2.0 - 7.6 x10 3/uL) 7.33 Lymph # (Auto) (1.0 - 3.8 x10 3/uL) 2.20 [place] # (Auto) (0.1 - 0.8 x10 3/uL) 0.73 Eos # (Auto) (0.0 - 0.2 x10 3/uL) 0.10 Baso # (Auto) (0.0 - 0.2 x10 3/uL) 0.03 Abs Immat Gran (auto) (0.00 - 0.03 x10 3/uL) 0.05 H Add Manual Diff NO Immature Gran % (0.0 - 2.0 %) 0.5 Nucleated RBC % (0 - 0 %) 0.2 H Nucleated RBCs # (Man) (0.0 - 0.1 x10 3/uL) 0.02 Results: labs reviewed, current med profile rev'd Diagnosis, Assessment Plan Free Text DxA P NotesFree text DxA P notes:Severe lactic acidosisSevere metabolic acidosisAcute renal failureHypocalcemiaHypomagnesemia?Septic shock vs lactic acidosis from metforminDehydrationHypothermiaDMHTNDementia with behavior disturbancepersistent hypoglycemia Plan:Ms. Agustin is a 74 yo female with non-specific symptoms of not feeling well, poor appetite that was found to have abnormal labs at [facility], sent to ED for evaluation. In the ED, found to have severe lactic and metabolic acidosis. Discussed at length with ICU (Dr. Lin) and Renal (Dr Aguilar). Given her de [facility] imaging, urinalysis, CXR are unremarkable for this level of acidosis, perhaps this acidosis is secondary to metformin. Plan is to dialyize patient to look for improvement. If no improvement, perhaps this is ischemic bowel. Will continue empiric Zosyn. - Zosyn- blood cultures pending- hold home meds- Accuchecks and SSI- replace electrolytes- heparin for DVT prophylaxsis 09/26Improved lactic acidosis with dialysis. Given improvement, likely this was lactic acidosis secondary to metformin. WBC persistently elevated at 19, will continue broad spectrum abx for now - blood cultures negative - UA unremarkable - monitor CBC for downtrend - if WBC remains elevated with mention of possible neoplasm in stomach, would consider work up however, this patient has dementia with low quality of life, not a good candidate for work up/treatment.BS well controlled with current insulin scheduleCheck labs in am 09/27Lactate remains normal, continue to hold metforminPt noted return of anion gap acidosis with ketonuria. Discussed with Dr. Aguilar, nephrology. Pt placed on DKA protocol to close anion gap, on D10 for glucose needs while on insulin drip.BNP elevated with clear lungs, no dependent edema, decreased O2 requirement. Give one dose of Lasix 40 mg IV, check CXR in the am, monitor for volume overload while getting DKA fluids.WBC decreased to 15, continue abx for now, d/c after 5 daysSome blood noted in stool, CT with signs of chronic inflammation. Given her dementia, unsure that patient would tolerate bowel prep. GI consulted. Appreciate input on area in stomach with possible neoplasm. Check labs in am 09/28Anion gap closed, off insulin dripElevated lactate, monitorCXR shows severe vascular congestion and pleural fluid, likely related to fluidsgiven for lactic acidosis and metabolic acidosis, pt not in respiratory distress - Lasix 60 mg IV q8 iniated by nephrology - D10 at 30 cc/hr to maintain blood sugarWBC decreased to 13, d/c abx after 5 daysColon with chronic inflammation, no work up per GIWill need EGD to evaluate abnormality in gastric wall once improvedCheck labs in am 09/29Off insulin dripCXR reviewedCont lasixWBC count came down to 10.5On zosynTransfer to the floordw RN, TRUCK DRIVER TEAMSTER, consultantsCXR and telemetry personally reviewedFurther recs per clinical course 10/01/2019 - blood sugars stable on D10W. will switch to D5W - consider endo eval if persistently hypoglycemic - monitor renal function closely - off antibiotics - await stool samples. no diarrhea overnight - PT/OT - start mobilizing. rehab eval - on IV PPI. ? switch to po - will defer to GI - ? need for EGD 10/02/2019 - Back on Heparin SQ - Megace started. - switched to po PPI. - Blood sugars up. will d/c IV fluids at this time and monitor blood sugars closely - observe off antibiotics - mobilize - likely back to SNF in the next 1-2 days 10/03/2019 - will restart IV fluids due to worsening renal function - clinically dry. not taking in any signficant food or liquids - follow creatinine closelly - continue Megace - anticipate back to SNF once renal function more stable - Heparin for VTE 10/04/2019 - follow renal function - on IVF. renal increased rate - watch for volume overload - off antibiotics - continue Megace - on Heparin 10/05/2019 - follow creatinine. continue IVF for now - Heparing for VTE - renal following - d/w patient's nurse. - calorie counting 10/06/2019 - patient very short of breath. suspicious for volume overload - will stop IVF - give 1 dose of lasix - check CXR and BNP - continue Megace - BP more stable on Midodrine - continue to mobilize - heparin for VTE - daughter voiced concern about patient's exposure to COVID at the facility shecame from. Will test for COVID-19 10/07/2019 - Rapid COVID and PCR test negative - transfer out [address] - replete K+ and Mg+ - off IV fluids. - renal function improving 10/08/2019- pt reports feeling ok today, but is refusing all nursing care and refuses lab draw today- blood sugars adequately controlled for now, continue to hold metformin- appetite improved, monitor blood sugars closely, may need to start SSI as patient starts to eat more- nephrology following, continue to monitor renal function, HD per nephrology- d/c planning: reutrn to SNF when medically stable 10/09/2019- cooperative with care today, feeling OK- blood sugars elevated yesterday PM, continue sliding scale insulin and monitorfor now- Cr stable at 2.5 today, continue to monitor renal function, HD per nephrology- encourage oral intake- k 3.3 today, replacement ordered per renal, mag replacement ordered per renal total time spent with evaluating patient/data as well as providing education/counselling to patient was more than 35 minutes at 0738 RPT #:[id number] OF REPORTPRProgress [id number]:54:00G.[id number] for patient boqxIQZFCDVJQDDJAD7659-49-46G76:38:30 [facility] 2019-10-09 06:07:00 [id number]+ wJcioXKxIXP0ca7MU VjS0jzuPnqsuO/386y4/gWNkgH3729-44-80J19:07:00 [facility] ([facility]Neph[facility] Progress NoteREPORT#:[id number] REPORT STATUS: SignedDATE:10/09/19 TIME: 606 PATIENT: MAC AGUSTIN UNIT #: [id number]#: [id number] [address] [birth year] AGE: 74 SEX: F ATTEND: Joel Myers [facility] AUTHOR: Rabia Aguilar MD * ALL edits or amendments must be made on the electronic/computer document * SubjectiveChief Complaint:AMS/Lactic acidosis/AKIUnable to obtain: patient conditionComments:Patient seen and evaluated, HPI no change from initial, feels okay Review of SystemsUnable to obtain due to:Patient's condition Objective GeneralVS/I O:Vital Signs: Date Time Temp Pulse Resp B/P B/P Pulse O2 O2 Flow FiO2 Mean Ox Delivery Rate 10/08 0431 36.9 63 16 112/73 85.9 96 Room air 10/08 0036 36.6 70 12 98/56 69.9 96 Room air 10/07 2118 Nasal 3.818741 cannula 10/07 1924 37.0 70 17 102/65 77.4 96 Room air 10/07 1539 36.6 77 18 102/58 72.3 97 10/07 1023 37.1 65 18 114/69 83.9 97 10/07 0840 Nasal 3.628056 cannula 10/07 0635 36.8 62 18 118/78 91.3 97 24 hour I O ending at 0700: 10/08 0700 10/07 1900 Intake Total 500 1060 Output Total Balance 500 1060 Intake, Oral 500 720 Intake, Oral 340 Supplement Number 3 2 Bowel Movements Number 3 3 Incontinent Voids MedicationsActive Meds + DC'd Last 24 HrsMidodrine 5 MG 0900,1300,1700 PO Pantoprazole 40 MG BID@0600,1800 PO Megestrol Acetate 800 MG DAILY PO Zinc Oxide 1 APPLIC BID TOPICAL Lidocaine 1 EA Q24H TOPICAL Insulin Human Lispro 0 AC HS SUBQ Acetaminophen 650 MG Q4H PRN PRN PO Heparin Sodium 5,000 UNIT Q12HR SUBQ Physical ExamGeneral appearance: alert, no acute distressHead/eyes: atraumatic, normocephalicENT: normal noseNeck: supple/no meningismusCardiovascular: normal heart sounds, no rubRespiratory: aerating well, symmetric expansionAbdomen: softGenitourinary: no foleyExtremities: no edemaMusculoskeletal: normal inspectionNeuro/FAST FOOD ATTENDANT: altered mental statusSkin: dry ResultsFindings/Data:Laboratory Tests 10/0844 0 1925 1540 1022 Chemistry Sodium (134 - 147 mEq/L) 141 Potassium (3.4 - 5.0 mEq/L) 3.3 L Chloride (100 - 108 mEq/L) 108 Carbon Dioxide (21 - 33 mEq/L) 23 Anion Gap (0 - 20) 13 BUN (7 - 18 mg/dL) 28 H Creatinine (0.6 - 1.3 mg/dL) 2.5 H Glomerular Filtr Rate (70 - 80) 18.9 L Glucose (70 - 110 mg/dL) 142 H POC Glucose (70 - 110 MG/DL) 136 H 282 H 279 H 115 H Calcium (8.0 - 10.5 mg/dL) 7.8 L Phosphorus (2.5 - 4.9 MG/DL) 3.1 Magnesium (1.8 - 2.4 mg/dL) 1.60 L 10/07 10/06 10/06 10/06 10/06 0636 1905 1619 1108 0749 Chemistry POC Glucose (70 - 110 MG/DL) 117 H 152 H 155 H 130 H 112 H 10/062 1223 Chemistry Sodium (134 - 147 mEq/L) 139 Potassium (3.4 - 5.0 mEq/L) 3.1 L Chloride (100 - 108 mEq/L) 106 Carbon Dioxide (21 - 33 mEq/L) 24 Anion Gap (0 - 20) 12 BUN (7 - 18 mg/dL) 27 H Creatinine (0.6 - 1.3 mg/dL) 2.4 H Glomerular Filtr Rate (70 - 80) 19.8 L Glucose (70 - 110 mg/dL) 115 H POC Glucose (70 - 110 MG/DL) 139 H 174 H 204 H Calcium (8.0 - 10.5 mg/dL) 8.1 Phosphorus (2.5 - 4.9 MG/DL) 3.4 Magnesium (1.8 - 2.4 mg/dL) 1.50 L Laboratory Tests 10/08 10/06 0420 0247 Hematology WBC (4.5 - 11.0 x10 3/uL) 10.44 9.48 RBC (3.54 - 5.02 x10 6/uL) 2.52 L 2.72 L Hgb (11.0 - 15.0 g/dL) 7.6 L 8.0 L Hct (33.0 - 45.0 %) 24.3 L 26.2 L MCV (81.0 - 99.0 fL) 96.4 96.3 MCH (27.0 - 33.0 pg) 30.2 29.4 MCHC (33.0 - 37.0 g/dL) 31.3 L 30.5 L RDW (11.5 - 14.5 %) 15.0 H 14.1 Plt Count (150 - 400 x10 3/uL) 193 216 MPV (7.0 - 9.0 fL) 11.6 H 10.0 H Neut % (Auto) (56.0 - 77.0 %) 70.1 57.0 Lymph % (Auto) (14.0 - 32.0 %) 21.1 25.3 [place] % (Auto) (4.8 - 9.0 %) 7.0 14.7 H Eos % (Auto) (0.3 - 3.7 %) 1.0 1.4 Baso % (Auto) (0.0 - 2.0 %) 0.3 0.4 Neut # (Auto) (2.0 - 7.6 x10 3/uL) 7.33 5.41 Lymph # (Auto) (1.0 - 3.8 x10 3/uL) 2.20 2.40 [place] # (Auto) (0.1 - 0.8 x10 3/uL) 0.73 1.39 H Eos # (Auto) (0.0 - 0.2 x10 3/uL) 0.10 0.13 Baso # (Auto) (0.0 - 0.2 x10 3/uL) 0.03 0.04 Abs Immat Gran (auto) (0.00 - 0.03 x10 3/uL) 0.05 H 0.11 H Add Manual Diff NO NO Immature Gran % (0.0 - 2.0 %) 0.5 1.2 Nucleated RBC % (0 - 0 %) 0.2 H 0.2 H Nucleated RBCs # (Man) (0.0 - 0.1 x10 3/uL) 0.02 0.02 Laboratory Tests 10/05 1355 Serology COVID-19 PCR (Negative) Negative Nasal/Oral COVID-19 PCR (Negative) Negative Laboratory Tests 10/07 10/07 10/07 10/06 10/06 1925 1022 0636 1905 1619 Chemistry POC Glucose (70 - 110 MG/DL) 282 H 115 H 117 H 152 H 155 H 10/06 10/06 10/06 10/05 10/05 1108 0728 246 2008 1731 Chemistry Sodium (134 - 147 mEq/L) 139 Potassium (3.4 - 5.0 mEq/L) 3.1 L Chloride (100 - 108 mEq/L) 106 Carbon Dioxide (21 - 33 mEq/L) 24 Anion Gap (0 - 20) 12 BUN (7 - 18 mg/dL) 27 H Creatinine (0.6 - 1.3 mg/dL) 2.4 H Glomerular Filtr Rate (70 - 80) 19.8 L Glucose (70 - 110 mg/dL) 115 H POC Glucose (70 - 110 MG/DL) 130 H 112 H 139 H 174 H Calcium (8.0 - 10.5 mg/dL) 8.1 Phosphorus (2.5 - 4.9 MG/DL) 3.4 Magnesium (1.8 - 2.4 mg/dL) 1.50 L 10/05 10/05 1223 0734 Chemistry POC Glucose (70 - 110 MG/DL) 204 H 108 Laboratory Tests 10/06 0247 Hematology WBC (4.5 - 11.0 x10 3/uL) 9.48 RBC (3.54 - 5.02 x10 6/uL) 2.72 L Hgb (11.0 - 15.0 g/dL) 8.0 L Hct (33.0 - 45.0 %) 26.2 L MCV (81.0 - 99.0 fL) 96.3 MCH (27.0 - 33.0 pg) 29.4 MCHC (33.0 - 37.0 g/dL) 30.5 L RDW (11.5 - 14.5 %) 14.1 Plt Count (150 - 400 x10 3/uL) 216 MPV (7.0 - 9.0 fL) 10.0 H Neut % (Auto) (56.0 - 77.0 %) 57.0 Lymph % (Auto) (14.0 - 32.0 %) 25.3 [place] % (Auto) (4.8 - 9.0 %) 14.7 H Eos % (Auto) (0.3 - 3.7 %) 1.4 Baso % (Auto) (0.0 - 2.0 %) 0.4 Neut # (Auto) (2.0 - 7.6 x10 3/uL) 5.41 Lymph # (Auto) (1.0 - 3.8 x10 3/uL) 2.40 [place] # (Auto) (0.1 - 0.8 x10 3/uL) 1.39 H Eos # (Auto) (0.0 - 0.2 x10 3/uL) 0.13 Baso # (Auto) (0.0 - 0.2 x10 3/uL) 0.04 Abs Immat Gran (auto) (0.00 - 0.03 x10 3/uL) 0.11 H Add Manual Diff NO Immature Gran % (0.0 - 2.0 %) 1.2 Nucleated RBC % (0 - 0 %) 0.2 H Nucleated RBCs # (Man) (0.0 - 0.1 x10 3/uL) 0.02 Laboratory Tests 10/05 1355 Serology COVID-19 PCR (Negative) Negative Nasal/Oral COVID-19 PCR (Negative) Negative Laboratory Tests 10/07 10/07 10/07 1925 1022 0636 Chemistry POC Glucose (70 - 110 MG/DL) 282 H 115 H 117 H Diagnosis, Assessment PlanFree Text A P:Patient seen and evaluated, discussed with care team, images and laboratories reviewed.History of dementiaHistory of rheumatoid arthritisHistory of frequent fallsHistory of frequent UTIsHistory of hypertension: Currently hypotensiveHypokalemia: We will supplementSevere hypomagnesemia we will supplementHypocalcemia: We will supplementHypoalbuminemiaSevere lactic acidosis: Etiology, could be related to septic shock, however source is unclear, rule out ischemic bowel, Zosyn, will need to review her medications if patient has been on metformin, lactic acidosis due to metformin in the setting of acute renal failure is a possibility and will do hemodialysis in the setting.Patient has been taking Metformin 1000 BID, kenneth has lactic acidosis that is induced by Metformin, discussed with deysi and ICC/Primary team will proceed with HD09/27/2019 mental status a lot better, hemodynamically more stable, pressors being weaned off, received 6 hours of hemodialysis yesterday, her last set of blood gas showed a pH of 7.40, PCO2 25, PO2 55, lactic acid 6.2 improving, sodium is 143 potassium 3.6 CO2 20 chloride 101 BUN 13 creatinine 1.1, hemoglobin this morning 9.7, white blood count 19.78 trending down, platelet 156, her clinical picture is consistent with metformin induced lactic acidosis, will do another session of hemodialysis, 4 hours, potassium 3.5, no ultrafiltration, will give 20 mmol of potassium phosphate and expectation of hypophosphatemia during hemodialysis. katie and evaluated during HD, discussed with RN and HD nurse09/28/2019 laboratories from this morning showed sodium 144, potassium 3.3 we will give KCl 20 mEq IV x1, chloride 104, bicarbonate 16, creatinine 1.2, lacticacid 1.2, hemoglobin 8.4, white blood count 15.2, blood culture still negative, anion gap today is 24 with a normal lactic acid etiology unclear will repeat BMP, repeat lactic acid and order serum acetone and do urinalysis to check for urine ketones, also will do a blood gas. Ketones came back as large, This is kenneth starvation ketoacidosis that has been exacerbated by gluconeogenesis inhibition by Metformin and has been reported in the literature, will start Glucose and insulin drip09/29/2019 laboratories from this morning showed sodium 142, potassium 2.7 we will give KCl 20 mEq IV x2, bicarbonate 32 with a chloride of 103 with disappearance of the anion gap correction of anion gap, will DC IV fluid with sodium bicarbonate, will DC insulin drip, changed to insulin sliding scale, start D10 at 30 cc/h since patient is noted nauseated, her chest x-ray showed pulmonary edema, will give IV Lasix 60 mg every 8 hours, give a dose of metolazone, her phosphorus 1.4, will give potassium phosphate 15 mmol IV x1, recheck lab in the afternoon, her lactic acid is 4 up some, not clear why is it elevated, we will recheck in the afternoon, her creatinine is 2.2, not sure whather baseline creatinine, her creatinine is relatively stable since yesterday, will monitor closely, hemoglobin is 7.8, white blood count 13.57 improving.09/30/2019 laboratories from this morning showed sodium 138, potassium 3.5, CO2 34, chloride 100, BUN and creatinine 22 and 2.4 up some likely related to diuretics, albumin 1.8, hemoglobin 7.8, platelet 60, white blood count 10.51 continues to trend down, lactic acid 1.2 within normal limit, urine output [id number] cc with Lasix. Chest x-ray still pending. Progressive thrombocytopenia with progressive decrease in hemoglobin, the latter could be related to fluid resuscitation, multiple blood draws and blood loss during dialysis procedure, however will check LDH, haptoglobin, PT/ PT. 10/01/2019 patient was transferred to the floor, PT PTT are within normal limit, LDH slightly elevated 276, liver function tests are within normal limit, haptoglobin pending, chest x-ray is better from yesterday. Sodium 138 today potassium 3.8, CO2 32, BUN and creatinine 25 and 2.6 trending up likely related to volume contraction. Will check post void resdiual10/03/2019 laboratories from this morning showed sodium 137, potassium 3.6, CO2 28, BUN and creatinine 30 and 3.0 continue to rise, blood pressures on the low side will try midodrine 5 mg p.o. 3 times daily, hypomagnesemia 1.7 we will givemagnesium sulfate 1 g IV x1, hemoglobin 8.1, white blood count 5.21, will check the results of postvoid residual. BNP 109 will increase IVF to 75 cc per h4 Hgb 8.4, WBC 109, Na 136, K 4.1, HCO3 23, BUN 31, Creat 3.0 stable sinceyesterday, continue IVF10/05/2019 laboratories from today showed hemoglobin 8, platelet 192, white bloodcount 7.15, sodium 138, potassium 3.3 we will give KCl 10 mEq IV x3 doses, CO2 28, BUN and creatinine 27 and 2.7 trending down, continue IV fluid.10/06/2019 laboratories from this morning showed hemoglobin 7.6, white blood count 7.11, platelet 212, sodium 139, potassium 3.6, CO2 23, BUN and creatinine 26 and 2.6 continue to trend down, continue IV fluid.10/07/2019 laboratories from this morning showed sodium 139, potassium 3.1 we will give KCl 10 mEq IV times 4 doses, CO2 24, BUN and creatinine 27 and 22.4 improving, hypomagnesemia 1.5 we will give magnesium sulfate 2 g IV x1, hemoglobin 8, platelet 216.Chest x-ray from yesterday showed mild congestion, her BNP was 300, IV fluid was DC'd. 10/09/2019 laboratories from this morning showed sodium 141, potassium 3.3 we will give KCl 20 mEq p.o. x2 doses, CO2 23, BUN 28, creatinine 2.5 up some, hypomagnesemia 1.5 we will give magnesium sulfate 2 g IV x1, anemia hemoglobin 7.6 we will check iron studies and start Epogen 10,000 subcu once a week. at [address] [facility] #:[id number] OF REPORTPRProgress [id number]:07:00G.[id number] for patient dvivORYWWWEPBNUPMQ2332-73-80C94:33:[address] [facility] 2019-10-08 14:34:00 [id number] E4RdbJU7LBr6jte03 zzrgmonpgDY2zytF6NcmNCgXK80197-33-85M81:34:00 [facility] Progress NoteREPORT#:[id number] REPORT STATUS: SignedDATE:10/08/19 TIME: 1434 PATIENT: MAC AGUSTIN UNIT #: [id number]#: [id number] ROOM/BED: 5526-1DOB: [birth year] AGE: 74 SEX: F ATTEND: Joel Myers [facility] AUTHOR: Arian Anderson * ALL edits or amendments must be made on the electronic/computer document * SubjectiveChief Complaint:weakHPI:No new complaints. Review of SystemsUnable to obtain due to:dementia Objective GeneralVS/I O:Last Documented: Result Date Time Pulse Ox 97 10/07 1023 B/P 114/69 10/07 1023 B/P Mean 83.9 10/07 1023 Temp 37.1 10/07 1023 Pulse 65 10/07 1023 Resp 18 10/07 1023 O2 Delivery Nasal cannula 10/07 0840 O2 Flow Rate 3.815579 10/07 0840 24 hour I O ending at 0700: 10/07 0700 10/06 1900 Intake Total 240 Output Total Balance 240 Intake, Oral 240 Number 2 Bowel Movements Number 2 Incontinent Voids Patient Weight Weight (lb): 167Weight (oz): 15.88Weight (kg): 75.75 Medications:Active Meds + DC'd Last 24 HrsMidodrine 5 MG 0900,1300,1700 PO Pantoprazole 40 MG BID@0600,1800 PO Megestrol Acetate 800 MG DAILY PO Zinc Oxide 1 APPLIC BID TOPICAL Lidocaine 1 EA Q24H TOPICAL Insulin Human Lispro 0 AC HS SUBQ Acetaminophen 650 MG Q4H PRN PRN PO Heparin Sodium 5,000 UNIT Q12HR SUBQ Physical ExamGeneral appearance: altered mental statusHEENT: moist mucosal membranesCardiovascular: normal S1/R0Ecwbxdxwcoe: clear to auscultationAbdomen: non-tender, normal bowel sounds, soft, no distentionExtremities: edemaMusculoskeletal: normal inspectionSkin: dry ResultsFindings/Data:Laboratory Tests 10/07 10/07 10/06 10/06 1022 0636 1905 1619 Chemistry POC Glucose (70 - 110 MG/DL) 115 H 117 H 152 H 155 H Results: labs reviewed, vital signs stable Diagnosis, Assessment PlanProblem List/A P: 1. Antibiotic-associated diarrhea Free Text A P:IMPRESSION: A 74-year-old female with a host of comorbidities, especiallyadvanced dementia, presented with failure to thrive kind of situation, labs weresignificantly abnormal with electrolyte disbalance, acute renal failure,metabolic acidosis and underlying sepsis from urinary tract infection. UTI isbeing treated with IV antibiotic. She is responding. The CT finding of colonicwall thickening as well as gastric distention with gastric wall thickening is anincidental finding. PLAN:1. Colonic wall thickening is not concerning. This diffuse colonic wall edemacould be due to underlying sepsis and hypoalbuminemia. This does not warrantany further investigation at this time. It seems to be self-limiting.2. Gastric distention, gastric wall thickening certainly needs furtherevaluation with direct visualization. Therefore, upper endoscopy should beconsidered when the patient is medically stable and has recovered well from hercurrent acute illness. 10/08/19- PPI PO- Continue Megace - Supportive care- Outpatient EGD and colonoscopy given current COVID restrictions and no evidence of active bleeding- Discharge per primary at 1435 RPT #:[id number] OF REPORTPRProgress [id number]:34:00G.[id number] for patient mqgzXKYEYEBFUSCTHK4906-45-32S38:36:[address] [facility] 2019-10-08 14:34:00 [id number]/GVH0I VG4E+TrJRW7CBywyS uOEgTMtqN+Ra8BKjdgpBPIePLz1986-34-91W90:34:00 [facility] ([facility])Gastroenterology Progress NoteREPORT#:[id number] REPORT STATUS: SignedDATE:10/08/19 TIME: 1434 PATIENT: MAC AGUSTIN UNIT #: [id number]#: [id number] [address] [birth year] AGE: 74 SEX: F ATTEND: Joel Myers [facility] AUTHOR: Arian Anderson * ALL edits or amendments must be made on the electronic/computer document * Arian Anderson 10/08/19 1434:SubjectiveChief Complaint:weakHPI:No new complaints. Review of SystemsUnable to obtain due to:dementia Objective GeneralVS/I O:Last Documented: Result Date Time Pulse Ox 97 10/07 1023 B/P 114/69 10/07 1023 B/P Mean 83.9 10/07 1023 Temp 37.1 10/07 1023 Pulse 65 10/07 1023 Resp 18 10/07 1023 O2 Delivery Nasal cannula 10/07 0840 O2 Flow Rate 3.950771 10/07 0840 24 hour I O ending at 0700: 10/07 0700 10/06 1900 Intake Total 240 Output Total Balance 240 Intake, Oral 240 Number 2 Bowel Movements Number 2 Incontinent Voids Patient Weight Weight (lb): 167Weight (oz): 15.88Weight (kg): 75.75 Medications:Active Meds + DC'd Last 24 HrsMidodrine 5 MG 0900,1300,1700 PO Pantoprazole 40 MG BID@0600,1800 PO Megestrol Acetate 800 MG DAILY PO Zinc Oxide 1 APPLIC BID TOPICAL Lidocaine 1 EA Q24H TOPICAL Insulin Human Lispro 0 AC HS SUBQ Acetaminophen 650 MG Q4H PRN PRN PO Heparin Sodium 5,000 UNIT Q12HR SUBQ Physical ExamGeneral appearance: altered mental statusHEENT: moist mucosal membranesCardiovascular: normal S1/C8Sonnraamdqg: clear to auscultationAbdomen: non-tender, normal bowel sounds, soft, no distentionExtremities: edemaMusculoskeletal: normal inspectionSkin: dry ResultsFindings/Data:Laboratory Tests 10/07 10/07 10/06 10/06 1022 0636 1905 1619 Chemistry POC Glucose (70 - 110 MG/DL) 115 H 117 H 152 H 155 H Results: labs reviewed, vital signs stable Diagnosis, Assessment PlanProblem List/A P: 1. Antibiotic-associated diarrhea Free Text A P:IMPRESSION: A 74-year-old female with a host of comorbidities, especiallyadvanced dementia, presented with failure to thrive kind of situation, labs weresignificantly abnormal with electrolyte disbalance, acute renal failure,metabolic acidosis and underlying sepsis from urinary tract infection. UTI isbeing treated with IV antibiotic. She is responding. The CT finding of colonicwall thickening as well as gastric distention with gastric wall thickening is anincidental finding. PLAN:1. Colonic wall thickening is not concerning. This diffuse colonic wall edemacould be due to underlying sepsis and hypoalbuminemia. This does not warrantany further investigation at this time. It seems to be self-limiting.2. Gastric distention, gastric wall thickening certainly needs furtherevaluation with direct visualization. Therefore, upper endoscopy should beconsidered when the patient is medically stable and has recovered well from hercurrent acute illness. 10/08/19- PPI PO- Continue Megace - Supportive care- Outpatient EGD and colonoscopy given current COVID restrictions and no evidence of active bleeding- Discharge per primary Coleman Sr V. 11/07/19 0901:Attestations Physician AttestationAgree w/findings plan:Patient seen and examined. 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 at 1435 RPT #:[id number] OF REPORTPRProgress [id number]:34:00G.[id number] for patient eangOJVROMWJANYOHC0144-42-05H53:02:[address] [facility] 2019-10-08 14:34:00 [id number] nXhDGVzy9eHiAZPz8 0F0UMAzdZHuimrFVOoTLSRMXi+9519-64-93C30:34:00 [facility])Gastroenterology Progress NoteREPORT#:[id number] REPORT STATUS: SignedDATE:10/08/19 TIME: 1434 PATIENT: MAC AGUSTIN UNIT #: [id number]#: [id number] [address] [birth year] AGE: 74 SEX: F ATTEND: Joel Myers [facility] AUTHOR: Arian Anderson * ALL edits or amendments must be made on the electronic/computer document * Arian Anderson 10/08/19 1434:SubjectiveChief Complaint:weakHPI:No new complaints. Review of SystemsUnable to obtain due to:dementia Objective GeneralVS/I O:Last Documented: Result Date Time Pulse Ox 97 10/07 1023 B/P 114/69 10/07 1023 B/P Mean 83.9 10/07 1023 Temp 37.1 10/07 1023 Pulse 65 10/07 1023 Resp 18 10/07 1023 O2 Delivery Nasal cannula 10/07 0840 O2 Flow Rate 3.500338 10/07 0840 24 hour I O ending at 0700: 10/07 0700 10/06 1900 Intake Total 240 Output Total Balance 240 Intake, Oral 240 Number 2 Bowel Movements Number 2 Incontinent Voids Patient Weight Weight (lb): 167Weight (oz): 15.88Weight (kg): 75.75 Medications:Active Meds + DC'd Last 24 HrsMidodrine 5 MG 0900,1300,1700 PO Pantoprazole 40 MG BID@0600,1800 PO Megestrol Acetate 800 MG DAILY PO Zinc Oxide 1 APPLIC BID TOPICAL Lidocaine 1 EA Q24H TOPICAL Insulin Human Lispro 0 AC HS SUBQ Acetaminophen 650 MG Q4H PRN PRN PO Heparin Sodium 5,000 UNIT Q12HR SUBQ Physical ExamGeneral appearance: altered mental statusHEENT: moist mucosal membranesCardiovascular: normal S1/A0Oifkukqmtsn: clear to auscultationAbdomen: non-tender, normal bowel sounds, soft, no distentionExtremities: edemaMusculoskeletal: normal inspectionSkin: dry ResultsFindings/Data:Laboratory Tests 10/07 10/07 10/06 10/06 1022 0636 1905 1619 Chemistry POC Glucose (70 - 110 MG/DL) 115 H 117 H 152 H 155 H Results: labs reviewed, vital signs stable Diagnosis, Assessment PlanProblem List/A P: 1. Antibiotic-associated diarrhea Free Text A P:IMPRESSION: A 74-year-old female with a host of comorbidities, especiallyadvanced dementia, presented with failure to thrive kind of situation, labs weresignificantly abnormal with electrolyte disbalance, acute renal failure,metabolic acidosis and underlying sepsis from urinary tract infection. UTI isbeing treated with IV antibiotic. She is responding. The CT finding of colonicwall thickening as well as gastric distention with gastric wall thickening is anincidental finding. PLAN:1. Colonic wall thickening is not concerning. This diffuse colonic wall edemacould be due to underlying sepsis and hypoalbuminemia. This does not warrantany further investigation at this time. It seems to be self-limiting.2. Gastric distention, gastric wall thickening certainly needs furtherevaluation with direct visualization. Therefore, upper endoscopy should beconsidered when the patient is medically stable and has recovered well from hercurrent acute illness. 10/08/19- PPI PO- Continue Megace - Supportive care- Outpatient EGD and colonoscopy given current COVID restrictions and no evidence of active bleeding- Discharge per primary Coleman Sr V. 11/07/19 0901:Attestations Physician AttestationAgree w/findings plan:Patient seen and examined. 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 at 1435 at 0914 RPT #:[id number] OF REPORTPRProgress [id number]:34:00G.[id number] for patient qijbNQPRLHEYSDYOVZ4405-64-11E17:15:[address] [facility] 2019-10-08 14:05:00 [id number] 7bRO+nOKS9rsLl1q6 wBY2qRqJJewpDuQyHAK1EFpYqR4208-20-19O97:05:00 [facility] ([facility])Rehab Progress NoteREPORT#:[id number] REPORT STATUS: SignedDATE:10/08/19 TIME: 1405 PATIENT: MAC AGUSTIN UNIT #: [id number]#: [id number] [address] [birth year] AGE: 74 SEX: F ATTEND: Joel Myers AUTHOR: Lucy Ayon PA-C * ALL edits or amendments must be made on the electronic/computer document * SubjectiveChief complaint:Pt seen in bed. No complaints. States cold. + Dementia. Objective GeneralVS:Vital Signs: Date Time Temp Pulse Resp B/P B/P Pulse O2 O2 Flow FiO2 Mean Ox Delivery Rate 10/07 1023 98.8 65 18 114/69 83.9 97 10/07 0840 Nasal 3.613214 cannula 10/07 0635 98.2 62 18 118/78 91.3 97 10/06 2356 97.2 76 17 137/67 0.0 96 Room air 10/06 2120 Nasal 3.677814 cannula 10/06 1943 98.4 54 97 10/06 1906 98.2 42 17 127/63 84.0 98 Room air 10/06 1620 98.2 60 18 121/68 86.1 97 Patient Weight Weight (lb): 167Weight (oz): 15.88Weight (kg): 75.75 Medications:Active Meds + DC'd Last 24 HrsMidodrine 5 MG 0900,1300,1700 PO Pantoprazole 40 MG BID@0600,1800 PO Megestrol Acetate 800 MG DAILY PO Zinc Oxide 1 APPLIC BID TOPICAL Lidocaine 1 EA Q24H TOPICAL Insulin Human Lispro 0 AC HS SUBQ Acetaminophen 650 MG Q4H PRN PRN PO Heparin Sodium 5,000 UNIT Q12HR SUBQ Physical ExamGeneral appearance: altered mental status, alert, awakePsych: normal affectHEENT: anicteric, mucosal membranes moist, sclera clearNeck: supple, no JVDCardiovascular: regular rate rhythm, S1/N6Dddzkffdmvo: aerating well, clear bilaterallyAbdomen: bowel sounds present, non-distended, soft, soft, non-tenderSkin: dry, intactMusculoskeletal - general: Musculoskeletal - general: joints normal, range of motion normal, no swellingNeuro/FAST FOOD ATTENDANT: altered mental status, alert, no motor deficits, no sensory deficits Functional ProgressFunctional progress:rmance of all activities: Y ACTIVITIES PERFORMED: Bathing Training: N Grooming and Hygiene: Y Toileting: N Feeding: N Upper Extremity Dressing: N Lower Extremity Dressing: N Precautions: Fall Requires verbal cues to direct task: Y Reason: Unable to attend to task Positions Used: Sitting in chair Standing with Assist FUNCTIONAL BALANCE DURING ACTIVITY: Poor TREATMENT OUTCOMES: Goals Achieved: N Progress demonstrated toward desired goals: Y Decreased level of assistance needed: Y Patient unable to tolerate intervention: Y Performance limited by: Fatigue Decrease mobility/balance Decreased Strength Comments: Pt progress was inhibited by insufficient functional mobility. If this is the patient's last treatment, this entry Start Time: 1300 Stop Time: 1330 Treatment time (minutes): 15 Completed by: Nico Joy Supervising Therapist: Nubia Melgoza GROOMING/HYGIENE: Washing hands/face: Supervision or Set-up Oral Hygiene: Not Tested Combing/brushing hair: Not Tested Applying/removing make-up: Not Tested Shaving face: Not Tested Comments: Pt executed ADLs static/dynamic sitting in supported chair. ResultsFindings/Data:Laboratory Tests: 10/07 10/07 10/06 10/06 1022 0636 1905 1619 Chemistry POC Glucose (70 - 110 MG/DL) 115 H 117 H 152 H 155 H Diagnosis, Assessment PlanProblem List/A P: 1. Acute renal failure 2. Physical deconditioning 3. Hypomagnesemia 4. Lactic acidosis 5. DKA (diabetic ketoacidoses) 6. Metabolic acidosis 7. Gastric distention Free Text A P:74 years old female with past medical history significant for Alzheimer's dementia, behavioral disturbance, hypertension, type 2 diabetes mellitus, migraine headaches, anxiety disorder, bowel and bladder incontinence, rheumatoidarthritis, frequent UTI. She was admitted secondary to severe lactic acidosis, metabolic acidosis with anion gap secondary to metformin and dehydration. Started on hemodialysis secondary to acute renal failure and lactic acidosis with multiple electrolyte abnormalities including hypokalemia, hypo-Juan anemia, hypocalcemia, hypoalbuminemia. Patient then developed acute pulmonary vascular congestion is being diuresed. Plan: Physical therapy, Occupational Therapy and speech therapy have been consulted. Due to patient being an unreliable historian and moderate dementia she would benefit from returning to snf facility following her [facility]. I discussed with the patient's bdliokzj-vz-xjx who is on the chart as 1 of the contacts and she states their wish is for her to return to [facility] once medically cleared. 10/01: Encourage particpation with therpay.C. Diff not collected. Pt hgb stable.SNF once ready to be discharged. 10/02: Pt looks sleepy this a.m. Cr climbing. Minimal breakfast eaten this a.m. Nephrology on board monitoring. Plans to get MAg and Midodrine started. Encourage particpation with therapy. MAX A with bed mobility. Transfers not attempted. 10/06: COVID ruled out. Pt needs assistance. PT/OT to continue to follow. SNF once cleared. 10/07: Pt likley to DC back to LTC soon. Appears stable. Pt refusing nursing care today. Rehab attestation:Face to face exam completed. at 1409 RPT #:[id number] OF REPORTPRProgress Fbdh7023-87-15M55:05:00G.[id number] for patient wclaTTIPCDNMROOEFR6084-50-74J43:09:[address] [facility] 2019-10-08 12:04:00 [id number] CpBrWBprzxZUJgJ8g /o+uQTn+BcSCc1doiybShCh2gO2333-27-80F26:04:00 [facility] Progress NoteREPORT#:[id number] REPORT STATUS: SignedDATE:10/08/19 TIME: 1204 PATIENT: MAC AGUSTIN UNIT #: [id number]#: [id number] [address] [birth year] AGE: 74 SEX: F ATTEND: Joel Myers AUTHOR: Joel Myers MD * ALL edits or amendments must be made on the electronic/computer document * SubjectiveChief Complaint:follow up for NATHEN/CKD, HTN.states feels ok, but refusing all nursing care today Review of SystemsAdditional notes:12 point ROS negative except for mentioned in HPI.All systems rev neg: except as markedUnable to obtain due to:patient with severe dementia Objective GeneralVS/I O:Vital Signs: Date Time Temp Pulse Resp B/P B/P Pulse O2 O2 Flow FiO2 Mean Ox Delivery Rate 10/07 1023 98.8 65 18 114/69 83.9 97 10/07 0840 Nasal 3.654757 cannula 10/07 0635 98.2 62 18 118/78 91.3 97 10/06 2356 97.2 76 17 137/67 0.0 96 Room air 10/06 2120 Nasal 3.060029 cannula 10/06 1943 98.4 54 97 10/06 1906 98.2 42 17 127/63 84.0 98 Room air 10/06 1620 98.2 60 18 121/68 86.1 97 24 hour I O ending at 0700: 10/07 0700 10/06 1900 Intake Total 240 Output Total Balance 240 Intake, Oral 240 Number 2 Bowel Movements Number 2 Incontinent Voids Patient Weight Weight (lb): 167Weight (oz): 15.88Weight (kg): 75.75 Medications:Active Meds + DC'd Last 24 HrsMidodrine 5 MG 0900,1300,1700 PO Pantoprazole 40 MG BID@0600,1800 PO Megestrol Acetate 800 MG DAILY PO Zinc Oxide 1 APPLIC BID TOPICAL Lidocaine 1 EA Q24H TOPICAL Insulin Human Lispro 0 AC HS SUBQ Acetaminophen 650 MG Q4H PRN PRN PO Heparin Sodium 5,000 UNIT Q12HR SUBQ Physical ExamGeneral appearance: confused, sleeping comfortablyHead/Eyes: atraumatic, normocephalicENT: moist mucosal membranesNeck: non-tender, no JVD, no masses or swellingCardiovascular: normal heart sounds, regular rate rhythmRespiratory: decreased breath sounds, rales (basal), rhonchi, symmetric expansion, no distress, no rales appreciated on anterior examAbdomen: soft, no distention, no guarding, no reboundGenitourinary: no bladder distentionExtremities: edema (bLE +1), no clubbing, no cyanosisMusculoskeletal: normal inspectionNeuro/FAST FOOD ATTENDANT: no motor deficitsSkin: no rashLymphatics: neck normalPsychiatry: normal affect ResultsFindings/Data:Laboratory Tests 10/07 10/07 10/06 10/06 1022 0636 1905 1619 Chemistry POC Glucose (70 - 110 MG/DL) 115 H 117 H 152 H 155 H Results: no new labs, vital signs stable, current med profile rev'd Diagnosis, Assessment Plan Free Text DxA P NotesFree text DxA P notes:Severe lactic acidosisSevere metabolic acidosisAcute renal failureHypocalcemiaHypomagnesemia?Septic shock vs lactic acidosis from metforminDehydrationHypothermiaDMHTNDementia with behavior disturbancepersistent hypoglycemia Plan:Ms. Agustin is a 74 yo female with non-specific symptoms of not feeling well, poor appetite that was found to have abnormal labs at [facility], sent to ED for evaluation. In the ED, found to have severe lactic and metabolic acidosis. Discussed at length with ICU (Dr. Lin) and Renal (Dr Aguilar). Given her [facility], urinalysis, CXR are unremarkable for this level of acidosis, perhaps this acidosis is secondary to metformin. Plan is to dialyize patient to look for improvement. If no improvement, perhaps this is ischemic bowel. Will continue empiric Zosyn. - Zosyn- blood cultures pending- hold home meds- Accuchecks and SSI- replace electrolytes- heparin for DVT prophylaxsis 09/26Improved lactic acidosis with dialysis. Given improvement, likely this was lactic acidosis secondary to metformin. WBC persistently elevated at 19, will continue broad spectrum abx for now - blood cultures negative - UA unremarkable - monitor CBC for downtrend - if WBC remains elevated with mention of possible neoplasm in stomach, would consider work up however, this patient has dementia with low quality of life, not a good candidate for work up/treatment.BS well controlled with current insulin scheduleCheck labs in am 09/27Lactate remains normal, continue to hold metforminPt noted return of anion gap acidosis with ketonuria. Discussed with Dr. Aguilar, nephrology. Pt placed on DKA protocol to close anion gap, on D10 for glucose needs while on insulin drip.BNP elevated with clear lungs, no dependent edema, decreased O2 requirement. Give one dose of Lasix 40 mg IV, check CXR in the am, monitor for volume overload while getting DKA fluids.WBC decreased to 15, continue abx for now, d/c after 5 daysSome blood noted in stool, CT with signs of chronic inflammation. Given her dementia, unsure that patient would tolerate bowel prep. GI consulted. Appreciate input on area in stomach with possible neoplasm. Check labs in am 09/28Anion gap closed, off insulin dripElevated lactate, monitorCXR shows severe vascular congestion and pleural fluid, likely related to fluidsgiven for lactic acidosis and metabolic acidosis, pt not in respiratory distress - Lasix 60 mg IV q8 iniated by nephrology - D10 at 30 cc/hr to maintain blood sugarWBC decreased to 13, d/c abx after 5 daysColon with chronic inflammation, no work up per GIWill need EGD to evaluate abnormality in gastric wall once improvedCheck labs in am 09/29Off insulin dripCXR reviewedCont lasixWBC count came down to 10.5On zosynTransfer to the floordw RN, TRUCK DRIVER TEAMSTER, consultantsCXR and telemetry personally reviewedFurther recs per clinical course 10/01/2019 - blood sugars stable on D10W. will switch to D5W - consider endo eval if persistently hypoglycemic - monitor renal function closely - off antibiotics - await stool samples. no diarrhea overnight - PT/OT - start mobilizing. rehab eval - on IV PPI. ? switch to po - will defer to GI - ? need for EGD 10/02/2019 - Back on Heparin SQ - Megace started. - switched to po PPI. - Blood sugars up. will d/c IV fluids at this time and monitor blood sugars closely - observe off antibiotics - mobilize - likely back to SNF in the next 1-2 days 10/03/2019 - will restart IV fluids due to worsening renal function - clinically dry. not taking in any signficant food or liquids - follow creatinine closelly - continue Megace - anticipate back to SNF once renal function more stable - Heparin for VTE 10/04/2019 - follow renal function - on IVF. renal increased rate - watch for volume overload - off antibiotics - continue Megace - on Heparin 10/05/2019 - follow creatinine. continue IVF for now - Heparing for VTE - renal following - d/w patient's nurse. - calorie counting 10/06/2019 - patient very short of breath. suspicious for volume overload - will stop IVF - give 1 dose of lasix - check CXR and BNP - continue Megace - BP more stable on Midodrine - continue to mobilize - heparin for VTE - daughter voiced concern about patient's exposure to COVID at the facility shecame from. Will test for COVID-19 10/07/2019 - Rapid COVID and PCR test negative - transfer out of [facility] - replete K+ and Mg+ - off IV fluids. - renal function improving 10/08/2019- pt reports feeling ok today, but is refusing all nursing care and refuses lab draw today- blood sugars adequately controlled for now, continue to hold metformin- appetite improved, monitor blood sugars closely, may need to start SSI as patient starts to eat more- nephrology following, continue to monitor renal function, HD per nephrology- d/c planning: reutrn to SNF when medically stable total time spent with evaluating patient/data as well as providing education/counselling to patient was more than 35 minutes at 0733 RPT #:[id number] OF REPORTPRProgress [id number]:04:00G.[id number] for patient [id number]:33:[address] [facility] 2019-10-08 07:45:00 [id number] [id number] bXEQqAxqDVB/[id number]:45:00 [facility] ([facility])Nephrology Progress NoteREPORT#:[id number] REPORT STATUS: SignedDATE:10/08/19 TIME: 0745 PATIENT: MAC AGUSTIN UNIT #: [id number]#: [id number] ROOM/BED: 5526-1DOB: [birth year] AGE: 74 SEX: F ATTEND: Joel Myers [facility] AUTHOR: Rabia Aguilar MD * ALL edits or amendments must be made on the electronic/computer document * SubjectiveChief Complaint:AMS/Lactic acidosis/AKIUnable to obtain: patient conditionComments:Patient seen and evaluated, HPI no change from initial, feels okay Review of SystemsUnable to obtain due to:Dementia Objective GeneralVS/I O:Vital Signs: Date Time Temp Pulse Resp B/P B/P Pulse O2 O2 Flow FiO2 Mean Ox Delivery Rate 10/07 0635 36.8 62 18 118/78 91.3 97 10/06 2356 36.2 76 17 137/67 0.0 96 Room air 10/06 2120 Nasal 3.338863 cannula 10/06 1943 36.9 54 97 10/06 1906 36.8 42 17 127/63 84.0 98 Room air 10/06 1620 36.8 60 18 121/68 86.1 97 10/06 0900 Nasal 3.187721 cannula 10/06 0800 36.6 64 33 125/58 84 94 24 hour I O ending at 0700: 10/07 0700 10/06 1900 Intake Total 240 Output Total Balance 240 Intake, Oral 240 Number 2 Bowel Movements Number 2 Incontinent Voids MedicationsActive Meds + DC'd Last 24 HrsPotassium Chloride 50 ML Q1HR IV (DC) Magnesium Sulfate 50 ML ONCE ONE IV (DC) Midodrine 5 MG 0900,1300,1700 PO Pantoprazole 40 MG BID@0600,1800 PO Megestrol Acetate 800 MG DAILY PO Zinc Oxide 1 APPLIC BID TOPICAL Lidocaine 1 EA Q24H TOPICAL Insulin Human Lispro 0 AC HS SUBQ Acetaminophen 650 MG Q4H PRN PRN PO Heparin Sodium 5,000 UNIT Q12HR SUBQ Physical ExamGeneral appearance: alert, no acute distressHead/eyes: atraumatic, normocephalicENT: normal noseNeck: supple/no meningismusCardiovascular: normal heart sounds, no rubRespiratory: aerating well, symmetric expansionAbdomen: softGenitourinary: no foleyExtremities: no edemaMusculoskeletal: normal inspectionNeuro/FAST FOOD ATTENDANT: altered mental statusSkin: dry ResultsFindings/Data:Laboratory Tests 10/06 10/06 10/06 10/06 10/06 1905 1619 1108 0749 0247 Chemistry Sodium (134 - 147 mEq/L) 139 Potassium (3.4 - 5.0 mEq/L) 3.1 L Chloride (100 - 108 mEq/L) 106 Carbon Dioxide (21 - 33 mEq/L) 24 Anion Gap (0 - 20) 12 BUN (7 - 18 mg/dL) 27 H Creatinine (0.6 - 1.3 mg/dL) 2.4 H Glomerular Filtr Rate (70 - 80) 19.8 L Glucose (70 - 110 mg/dL) 115 H POC Glucose (70 - 110 MG/DL) 152 H 155 H 130 H 112 H Calcium (8.0 - 10.5 mg/dL) 8.1 Phosphorus (2.5 - 4.9 MG/DL) 3.4 Magnesium (1.8 - 2.4 mg/dL) 1.50 L 10/05 1732 1223 0734 0405Chemistry POC Glucose (70 - 110 MG/DL) 139 H 174 H 204 H 108 B-Natriuretic Peptide (0 - 100 PG/ML) 301.5 H 10/055 2 1710 1128 0820 Chemistry Sodium (134 - 147 mEq/L) 139 Potassium (3.4 - 5.0 mEq/L) 3.6 Chloride (100 - 108 mEq/L) 105 Carbon Dioxide (21 - 33 mEq/L) 23 Anion Gap (0 - 20) 15 BUN (7 - 18 mg/dL) 26 H Creatinine (0.6 - 1.3 mg/dL) 2.6 H Glomerular Filtr Rate (70 - 80) 18.1 L Glucose (70 - 110 mg/dL) 94 POC Glucose (70 - 110 MG/DL) 143 H 112 H 168 H 118 H Calcium (8.0 - 10.5 mg/dL) 8.1 Phosphorus (2.5 - 4.9 MG/DL) 2.5 Magnesium (1.8 - 2.4 mg/dL) 1.80 Laboratory Tests 10/06 10/05 0247 0405 Hematology WBC (4.5 - 11.0 x10 3/uL) 9.48 7.11 RBC (3.54 - 5.02 x10 6/uL) 2.72 L 2.56 L Hgb (11.0 - 15.0 g/dL) 8.0 L 7.6 L Hct (33.0 - 45.0 %) 26.2 L 23.5 L MCV (81.0 - 99.0 fL) 96.3 91.8 MCH (27.0 - 33.0 pg) 29.4 29.7 MCHC (33.0 - 37.0 g/dL) 30.5 L 32.3 L RDW (11.5 - 14.5 %) 14.1 13.6 Plt Count (150 - 400 x10 3/uL) 216 212 MPV (7.0 - 9.0 fL) 10.0 H 10.7 H Neut % (Auto) (56.0 - 77.0 %) 57.0 Lymph % (Auto) (14.0 - 32.0 %) 25.3 [place] % (Auto) (4.8 - 9.0 %) 14.7 H Eos % (Auto) (0.3 - 3.7 %) 1.4 Baso % (Auto) (0.0 - 2.0 %) 0.4 Neut # (Auto) (2.0 - 7.6 x10 3/uL) 5.41 Lymph # (Auto) (1.0 - 3.8 x10 3/uL) 2.40 [place] # (Auto) (0.1 - 0.8 x10 3/uL) 1.39 H Eos # (Auto) (0.0 - 0.2 x10 3/uL) 0.13 Baso # (Auto) (0.0 - 0.2 x10 3/uL) 0.04 Abs Immat Gran (auto) (0.00 - 0.03 x10 3/uL) 0.11 H Add Manual Diff NO YES Immature Gran % (0.0 - 2.0 %) 1.2 Seg Neutrophils % (37 - 69 %) 52.3 Band Neutrophils % (0.0 - 10.0 %) 4.6 Lymphocytes % (Manual) (23 - 55 %) 26.6 Monocytes % (Manual) (0 - 10 %) 14.7 H Eosinophils % (Manual) (0.0 - 4.0 %) 0.9 Nucleated RBC % (0 - 0 %) 0.2 H 0.9 Metamyelocytes (0.0 - 0.0 %) 0.9 H Nucleated RBCs # (Man) (0.0 - 0.1 x10 3/uL) 0.02 Platelet Estimate (ADEQUATE THOUSAND) Adequate Polychromasia 2+ Hypochromasia 1+ Poikilocytosis 1+ Anisocytosis 1+ Laboratory Tests 10/05 1355 Serology COVID-19 PCR (Negative) Negative Nasal/Oral COVID-19 PCR (Negative) Negative Recent Impressions:RADIOLOGY - XR CHEST 1 V 10/05 929 Report Impression - Status: SIGNED Entered: 10/06/2019 0943 IMPRESSION:1. Decreasing bilateral pleural effusions and bibasilar atelectasis.2. Stable pulmonary vascular congestionImpression By: Delvis Johnson M.D. Laboratory Tests 10/06 10/06 10/06 10/06 1905 1619 1108 0764 Chemistry POC Glucose (70 - 110 MG/DL) 152 H 155 H 130 H 112 H Diagnosis, Assessment PlanFree Text A P:Patient seen and evaluated, discussed with care team, images and laboratories reviewed.History of dementiaHistory of rheumatoid arthritisHistory of frequent fallsHistory of frequent UTIsHistory of hypertension: Currently hypotensiveHypokalemia: We will supplementSevere hypomagnesemia we will supplementHypocalcemia: We will supplementHypoalbuminemiaSevere lactic acidosis: Etiology, could be related to septic shock, however source is unclear, rule out ischemic bowel, Zosyn, will need to review her medications if patient has been on metformin, lactic acidosis due to metformin in the setting of acute renal failure is a possibility and will do hemodialysis in the setting.Patient has been taking Metformin 1000 BID, kenneth has lactic acidosis that is induced by Metformin, discussed with deysi and [facility]/Primary team will proceed with HD09/27/2019 mental status a lot better, hemodynamically more stable, pressors being weaned off, received 6 hours of hemodialysis yesterday, her last set of blood gas showed a pH of 7.40, PCO2 25, PO2 55, lactic acid 6.2 improving, sodium is 143 potassium 3.6 CO2 20 chloride 101 BUN 13 creatinine 1.1, hemoglobin this morning 9.7, white blood count 19.78 trending down, platelet 156, her clinical picture is consistent with metformin induced lactic acidosis, will do another session of hemodialysis, 4 hours, potassium 3.5, no ultrafiltration, will give 20 mmol of potassium phosphate and expectation of hypophosphatemia during hemodialysis. katie and evaluated during HD, discussed with RN and HD nurse09/28/2019 laboratories from this morning showed sodium 144, potassium 3.3 we will give KCl 20 mEq IV x1, chloride 104, bicarbonate 16, creatinine 1.2, lacticacid 1.2, hemoglobin 8.4, white blood count 15.2, blood culture still negative, anion gap today is 24 with a normal lactic acid etiology unclear will repeat BMP, repeat lactic acid and order serum acetone and do urinalysis to check for urine ketones, also will do a blood gas. Ketones came back as large, This is likley starvation ketoacidosis that has been exacerbated by gluconeogenesis inhibition by Metformin and has been reported in the literature, will start Glucose and insulin drip09/29/2019 laboratories from this morning showed sodium 142, potassium 2.7 we will give KCl 20 mEq IV x2, bicarbonate 32 with a chloride of 103 with disappearance of the anion gap correction of anion gap, will DC IV fluid with sodium bicarbonate, will DC insulin drip, changed to insulin sliding scale, start D10 at 30 cc/h since patient is noted nauseated, her chest x-ray showed pulmonary edema, will give IV Lasix 60 mg every 8 hours, give a dose of metolazone, her phosphorus 1.4, will give potassium phosphate 15 mmol IV x1, recheck lab in the afternoon, her lactic acid is 4 up some, not clear why is it elevated, we will recheck in the afternoon, her creatinine is 2.2, not sure whather baseline creatinine, her creatinine is relatively stable since yesterday, will monitor closely, hemoglobin is 7.8, white blood count 13.57 improving.09/30/2019 laboratories from this morning showed sodium 138, potassium 3.5, CO2 34, chloride 100, BUN and creatinine 22 and 2.4 up some likely related to diuretics, albumin 1.8, hemoglobin 7.8, platelet 60, white blood count 10.51 continues to trend down, lactic acid 1.2 within normal limit, urine output [id number] cc with Lasix. Chest x-ray still pending. Progressive thrombocytopenia with progressive decrease in hemoglobin, the latter could be related to fluid resuscitation, multiple blood draws and blood loss during dialysis procedure, however will check LDH, haptoglobin, PT/ PT. 10/01/2019 patient was transferred to the floor, PT PTT are within normal limit, LDH slightly elevated 276, liver function tests are within normal limit, haptoglobin pending, chest x-ray is better from yesterday. Sodium 138 today potassium 3.8, CO2 32, BUN and creatinine 25 and 2.6 trending up likely related to volume contraction. Will check post void resdiual10/03/2019 laboratories from this morning showed sodium 137, potassium 3.6, CO2 28, BUN and creatinine 30 and 3.0 continue to rise, blood pressures on the low side will try midodrine 5 mg p.o. 3 times daily, hypomagnesemia 1.7 we will givemagnesium sulfate 1 g IV x1, hemoglobin 8.1, white blood count 5.21, will check the results of postvoid residual. BNP 109 will increase IVF to 75 cc per 10/04/19 Hgb 8.4, WBC 109, Na 136, K 4.1, HCO3 23, BUN 31, Creat 3.0 stable sinceyesterday, continue IVF10/05/2019 laboratories from today showed hemoglobin 8, platelet 192, white bloodcount 7.15, sodium 138, potassium 3.3 we will give KCl 10 mEq IV x3 doses, CO2 28, BUN and creatinine 27 and 2.7 trending down, continue IV fluid.10/06/2019 laboratories from this morning showed hemoglobin 7.6, white blood count 7.11, platelet 212, sodium 139, potassium 3.6, CO2 23, BUN and creatinine 26 and 2.6 continue to trend down, continue IV fluid.10/07/2019 laboratories from this morning showed sodium 139, potassium 3.1 we will give KCl 10 mEq IV times 4 doses, CO2 24, BUN and creatinine 27 and 22.4 improving, hypomagnesemia 1.5 we will give magnesium sulfate 2 g IV x1, hemoglobin 8, platelet 216.Chest x-ray from yesterday showed mild congestion, her BNP was 300, IV fluid was DC'd. at 1100 RPT #:[id number] OF REPORTPRProgress [id number]:45:00G.[id number] for patient [id number]:00:50 [facility] 2019-10-08 07:45:00 [id number] [id number] fYYTSzGOnayeYq33yYeNPmmjgZ2837-49-09K81:45:00 [facility] ([facility])Nephrology Progress NoteREPORT#:[id number] REPORT STATUS: SignedDATE:10/08/19 TIME: 744 PATIENT: MAC AGUSTIN UNIT #: [id number]#: [id number] [address] [birth year] AGE: 74 SEX: F ATTEND: Joel Myers [facility] AUTHOR: Rabia Aguilar MD * ALL edits or amendments must be made on the electronic/computer document * See AddendumSubjectiveChief Complaint:AMS/Lactic acidosis/AKIUnable to obtain: patient conditionComments:Patient seen and evaluated, HPI no change from initial, feels okay Review of SystemsUnable to obtain due to:Dementia Objective GeneralVS/I O:Vital Signs: Date Time Temp Pulse Resp B/P B/P Pulse O2 O2 Flow FiO2 Mean Ox Delivery Rate 10/07 0635 36.8 62 18 118/78 91.3 97 10/06 2356 36.2 76 17 137/67 0.0 96 Room air 10/06 2120 Nasal 3.804780 cannula 10/06 1943 36.9 54 97 10/06 1906 36.8 42 17 127/63 84.0 98 Room air 10/06 1620 36.8 60 18 121/68 86.1 97 10/06 0900 Nasal 3.913377 cannula 10/06 0800 36.6 64 33 125/58 84 94 24 hour I O ending at 0700: 10/07 0700 10/06 1900 Intake Total 240 Output Total Balance 240 Intake, Oral 240 Number 2 Bowel Movements Number 2 Incontinent Voids MedicationsActive Meds + DC'd Last 24 HrsPotassium Chloride 50 ML Q1HR IV (DC) Magnesium Sulfate 50 ML ONCE ONE IV (DC) Midodrine 5 MG 0900,1300,1700 PO Pantoprazole 40 MG BID@0600,1800 PO Megestrol Acetate 800 MG DAILY PO Zinc Oxide 1 APPLIC BID TOPICAL Lidocaine 1 EA Q24H TOPICAL Insulin Human Lispro 0 AC HS SUBQ Acetaminophen 650 MG Q4H PRN PRN PO Heparin Sodium 5,000 UNIT Q12HR SUBQ Physical ExamGeneral appearance: alert, no acute distressHead/eyes: atraumatic, normocephalicENT: normal noseNeck: supple/no meningismusCardiovascular: normal heart sounds, no rubRespiratory: aerating well, symmetric expansionAbdomen: softGenitourinary: no foleyExtremities: no edemaMusculoskeletal: normal inspectionNeuro/FAST FOOD ATTENDANT: altered mental statusSkin: dry ResultsFindings/Data:Laboratory Tests 10/06 10/06 10/06 10/06 10/06 1905 1619 1108 0749 0247 Chemistry Sodium (134 - 147 mEq/L) 139 Potassium (3.4 - 5.0 mEq/L) 3.1 L Chloride (100 - 108 mEq/L) 106 Carbon Dioxide (21 - 33 mEq/L) 24 Anion Gap (0 - 20) 12 BUN (7 - 18 mg/dL) 27 H Creatinine (0.6 - 1.3 mg/dL) 2.4 H Glomerular Filtr Rate (70 - 80) 19.8 L Glucose (70 - 110 mg/dL) 115 H POC Glucose (70 - 110 MG/DL) 152 H 155 H 130 H 112 H Calcium (8.0 - 10.5 mg/dL) 8.1 Phosphorus (2.5 - 4.9 MG/DL) 3.4 Magnesium (1.8 - 2.4 mg/dL) 1.50 L 10/05 1732 1223 0734 0405Chemistry POC Glucose (70 - 110 MG/DL) 139 H 174 H 204 H 108 B-Natriuretic Peptide (0 - 100 PG/ML) 301.5 H 10/055 2021 1710 1128 0820 Chemistry Sodium (134 - 147 mEq/L) 139 Potassium (3.4 - 5.0 mEq/L) 3.6 Chloride (100 - 108 mEq/L) 105 Carbon Dioxide (21 - 33 mEq/L) 23 Anion Gap (0 - 20) 15 BUN (7 - 18 mg/dL) 26 H Creatinine (0.6 - 1.3 mg/dL) 2.6 H Glomerular Filtr Rate (70 - 80) 18.1 L Glucose (70 - 110 mg/dL) 94 POC Glucose (70 - 110 MG/DL) 143 H 112 H 168 H 118 H Calcium (8.0 - 10.5 mg/dL) 8.1 Phosphorus (2.5 - 4.9 MG/DL) 2.5 Magnesium (1.8 - 2.4 mg/dL) 1.80 Laboratory Tests 10/06 10/05 0247 0405 Hematology WBC (4.5 - 11.0 x10 3/uL) 9.48 7.11 RBC (3.54 - 5.02 x10 6/uL) 2.72 L 2.56 L Hgb (11.0 - 15.0 g/dL) 8.0 L 7.6 L Hct (33.0 - 45.0 %) 26.2 L 23.5 L MCV (81.0 - 99.0 fL) 96.3 91.8 MCH (27.0 - 33.0 pg) 29.4 29.7 MCHC (33.0 - 37.0 g/dL) 30.5 L 32.3 L RDW (11.5 - 14.5 %) 14.1 13.6 Plt Count (150 - 400 x10 3/uL) 216 212 MPV (7.0 - 9.0 fL) 10.0 H 10.7 H Neut % (Auto) (56.0 - 77.0 %) 57.0 Lymph % (Auto) (14.0 - 32.0 %) 25.3 [place] % (Auto) (4.8 - 9.0 %) 14.7 H Eos % (Auto) (0.3 - 3.7 %) 1.4 Baso % (Auto) (0.0 - 2.0 %) 0.4 Neut # (Auto) (2.0 - 7.6 x10 3/uL) 5.41 Lymph # (Auto) (1.0 - 3.8 x10 3/uL) 2.40 [place] # (Auto) (0.1 - 0.8 x10 3/uL) 1.39 H Eos # (Auto) (0.0 - 0.2 x10 3/uL) 0.13 Baso # (Auto) (0.0 - 0.2 x10 3/uL) 0.04 Abs Immat Gran (auto) (0.00 - 0.03 x10 3/uL) 0.11 H Add Manual Diff NO YES Immature Gran % (0.0 - 2.0 %) 1.2 Seg Neutrophils % (37 - 69 %) 52.3 Band Neutrophils % (0.0 - 10.0 %) 4.6 Lymphocytes % (Manual) (23 - 55 %) 26.6 Monocytes % (Manual) (0 - 10 %) 14.7 H Eosinophils % (Manual) (0.0 - 4.0 %) 0.9 Nucleated RBC % (0 - 0 %) 0.2 H 0.9 Metamyelocytes (0.0 - 0.0 %) 0.9 H Nucleated RBCs # (Man) (0.0 - 0.1 x10 3/uL) 0.02 Platelet Estimate (ADEQUATE THOUSAND) Adequate Polychromasia 2+ Hypochromasia 1+ Poikilocytosis 1+ Anisocytosis 1+ Laboratory Tests 10/05 1355 Serology COVID-19 PCR (Negative) Negative Nasal/Oral COVID-19 PCR (Negative) Negative Recent Impressions:RADIOLOGY - XR CHEST 1 V 10/05 0930 Report Impression - Status: SIGNED Entered: 10/06/2019 0943 IMPRESSION:1. Decreasing bilateral pleural effusions and bibasilar atelectasis.2. Stable pulmonary vascular congestionImpression By: Delvis Johnson M.D. Laboratory Tests 10/06 10/06 10/06 10/06 1905 1619 1108 0749 Chemistry POC Glucose (70 - 110 MG/DL) 152 H 155 H 130 H 112 H Diagnosis, Assessment PlanFree Text A P:Patient seen and evaluated, discussed with care team, images and laboratories reviewed.History of dementiaHistory of rheumatoid arthritisHistory of frequent fallsHistory of frequent UTIsHistory of hypertension: Currently hypotensiveHypokalemia: We will supplementSevere hypomagnesemia we will supplementHypocalcemia: We will supplementHypoalbuminemiaSevere lactic acidosis: Etiology, could be related to septic shock, however source is unclear, rule out ischemic bowel, Zosyn, will need to review her medications if patient has been on metformin, lactic acidosis due to metformin in the setting of acute renal failure is a possibility and will do hemodialysis in the setting.Patient has been taking Metformin 1000 BID, kenneth has lactic acidosis that is induced by Metformin, discussed with deysi and [facility]/Primary team will proceed with HD4 mental status a lot better, hemodynamically more stable, pressors being weaned off, received 6 hours of hemodialysis yesterday, her last set of blood gas showed a pH of 7.40, PCO2 25, PO2 55, lactic acid 6.2 improving, sodium is 143 potassium 3.6 CO2 20 chloride 101 BUN 13 creatinine 1.1, hemoglobin this morning 9.7, white blood count 19.78 trending down, platelet 156, her clinical picture is consistent with metformin induced lactic acidosis, will do another session of hemodialysis, 4 hours, potassium 3.5, no ultrafiltration, will give 20 mmol of potassium phosphate and expectation of hypophosphatemia during hemodialysis. katie and evaluated during HD, discussed with RN and HD nurse09/28/2019 laboratories from this morning showed sodium 144, potassium 3.3 we will give KCl 20 mEq IV x1, chloride 104, bicarbonate 16, creatinine 1.2, lacticacid 1.2, hemoglobin 8.4, white blood count 15.2, blood culture still negative, anion gap today is 24 with a normal lactic acid etiology unclear will repeat BMP, repeat lactic acid and order serum acetone and do urinalysis to check for urine ketones, also will do a blood gas. Ketones came back as large, This is kenneth starvation ketoacidosis that has been exacerbated by gluconeogenesis inhibition by Metformin and has been reported in the literature, will start Glucose and insulin drip09/29/2019 laboratories from this morning showed sodium 142, potassium 2.7 we will give KCl 20 mEq IV x2, bicarbonate 32 with a chloride of 103 with disappearance of the anion gap correction of anion gap, will DC IV fluid with sodium bicarbonate, will DC insulin drip, changed to insulin sliding scale, start D10 at 30 cc/h since patient is noted nauseated, her chest x-ray showed pulmonary edema, will give IV Lasix 60 mg every 8 hours, give a dose of metolazone, her phosphorus 1.4, will give potassium phosphate 15 mmol IV x1, recheck lab in the afternoon, her lactic acid is 4 up some, not clear why is it elevated, we will recheck in the afternoon, her creatinine is 2.2, not sure whather baseline creatinine, her creatinine is relatively stable since yesterday, will monitor closely, hemoglobin is 7.8, white blood count 13.57 improving.09/30/2019 laboratories from this morning showed sodium 138, potassium 3.5, CO2 34, chloride 100, BUN and creatinine 22 and 2.4 up some likely related to diuretics, albumin 1.8, hemoglobin 7.8, platelet 60, white blood count 10.51 continues to trend down, lactic acid 1.2 within normal limit, urine output [id number] cc with Lasix. Chest x-ray still pending. Progressive thrombocytopenia with progressive decrease in hemoglobin, the latter could be related to fluid resuscitation, multiple blood draws and blood loss during dialysis procedure, however will check LDH, haptoglobin, PT/ PT. 10/01/2019 patient was transferred to the floor, PT PTT are within normal limit, LDH slightly elevated 276, liver function tests are within normal limit, haptoglobin pending, chest x-ray is better from yesterday. Sodium 138 today potassium 3.8, CO2 32, BUN and creatinine 25 and 2.6 trending up likely related to volume contraction. Will check post void resdiual10/03/2019 laboratories from this morning showed sodium 137, potassium 3.6, CO2 28, BUN and creatinine 30 and 3.0 continue to rise, blood pressures on the low side will try midodrine 5 mg p.o. 3 times daily, hypomagnesemia 1.7 we will givemagnesium sulfate 1 g IV x1, hemoglobin 8.1, white blood count 5.21, will check the results of postvoid residual. BNP 109 will increase IVF to 75 cc per 10/04/19 Hgb 8.4, WBC 109, Na 136, K 4.1, HCO3 23, BUN 31, Creat 3.0 stable sinceyesterday, continue IVF10/05/2019 laboratories from today showed hemoglobin 8, platelet 192, white bloodcount 7.15, sodium 138, potassium 3.3 we will give KCl 10 mEq IV x3 doses, CO2 28, BUN and creatinine 27 and 2.7 trending down, continue IV fluid.10/06/2019 laboratories from this morning showed hemoglobin 7.6, white blood count 7.11, platelet 212, sodium 139, potassium 3.6, CO2 23, BUN and creatinine 26 and 2.6 continue to trend down, continue IV fluid.10/07/2019 laboratories from this morning showed sodium 139, potassium 3.1 we will give KCl 10 mEq IV times 4 doses, CO2 24, BUN and creatinine 27 and 22.4 improving, hypomagnesemia 1.5 we will give magnesium sulfate 2 g IV x1, hemoglobin 8, platelet 216.Chest x-ray from yesterday showed mild congestion, her BNP was 300, IV fluid was DC'd. at 1100 Addendum 1: 10/08/19 1100 by Rabia Aguilar MD 10/08/19 feels okay, labs not done yet will check results when available at 1101 RPT #:[id number] OF REPORTPRProgress [id number]:45:00G.[id number] for patient wgemUBXTTVZBKLEJUJ3843-03-01R59:02:[address] [facility] 2019-10-07 16:37:00 [id number] WOzI1zvlZpQH9cP1j ufp5/Y55n/BNx4CMtDeEt3YPt98828-84-26B48:37:00 [facility])Rehab Progress NoteREPORT#:[id number] REPORT STATUS: SignedDATE:10/07/19 TIME: 1637 PATIENT: MAC AGUSTIN UNIT #: [id number]#: [id number] [address] AGE: 74 SEX: F ATTEND: Joel Myers [facility] AUTHOR: Lucy Ayon PA-C * ALL edits or amendments must be made on the electronic/computer document * SubjectiveChief complaint:Pt seen in bed. No complaints. States cold. Pt ruled out for COVID Objective GeneralVS:Vital Signs: Date Time Temp Pulse Resp B/P B/P Pulse O2 O2 Flow FiO2 Mean Ox Delivery Rate 10/06 1620 98.2 60 18 121/68 86.1 97 10/06 0900 Nasal 3.718128 cannula 10/06 0800 97.8 64 33 125/58 84 94 10/06 0700 62 23 125/57 82 94 10/06 0601 59 15 129/62 89 94 10/06 0501 56 14 156/65 94 98 10/06 0431 97.9 10/06 0400 58 10 137/65 93 96 10/06 0300 61 30 127/62 89 97 10/06 0200 59 22 115/58 84 97 10/06 0100 53 18 131/60 87 99 10/06 0000 53 15 136/62 89 100 10/05 2230 51 16 10/05 2229 98.0 10/05 2200 54 120/58 83 94 10/05 2158 116 24 125/58 83 92 10/05 2130 53 20 96 10/05 2100 53 21 117/58 84 96 10/05 2039 98.4 10/05 1752 97.7 63 16 104/68 80.0 99 Nasal 3.286034 cannula Patient Weight Weight (lb): 167Weight (oz): 15.88Weight (kg): 75.75 Medications:Active Meds + DC'd Last 24 HrsPotassium Chloride 50 ML Q1HR IV (DC) Magnesium Sulfate 50 ML ONCE ONE IV (DC) Midodrine 5 MG 0900,1300,1700 PO Pantoprazole 40 MG BID@0600,1800 PO Megestrol Acetate 800 MG DAILY PO Zinc Oxide 1 APPLIC BID TOPICAL Lidocaine 1 EA Q24H TOPICAL Insulin Human Lispro 0 AC HS SUBQ Acetaminophen 650 MG Q4H PRN PRN PO Heparin Sodium 5,000 UNIT Q12HR SUBQ Physical ExamGeneral appearance: altered mental status, alert, awakePsych: normal affectHEENT: anicteric, mucosal membranes moist, sclera clearNeck: supple, no JVDCardiovascular: regular rate rhythm, S1/X7Zjmpzpwkfyx: aerating well, clear bilaterallyAbdomen: bowel sounds present, non-distended, soft, soft, non-tenderSkin: dry, intactMusculoskeletal - general: Musculoskeletal - general: joints normal, range of motion normal, no swellingNeuro/FAST FOOD ATTENDANT: altered mental status, alert, no motor deficits, no sensory deficits Functional ProgressFunctional progress:performance of all activities: Y Precautions: Fall Safety addressed through use of: Verbal Cues Observed precautions for: Falls ACTIVITIES PERFORMED: Rolling Right: Moderate Assistance Rolling Left: Moderate Assistance Scooting up in bed: Moderate Assistance Supine to/from sitting: Moderate Assistance Sit to Stand: Moderate Assistance Activities Performed Cmt: Bed mobility for hygiene. Balance: Poor Safety Awareness: Poor Effects of Treatment: Function improved Comments: Will continue plan of care as clinically appropriate. If this is the patient's last treatment, this entry Start Time: 1410 Stop Time: 1448 Treatment time (minutes): 38 Completed by: Raymond Urbina Supervising Therapist: Angela Spangler . ResultsFindings/Data:Laboratory Tests: 10/06 10/06 10/06 10/05 1108 0749 0247 2009Chemistry Sodium (134 - 147 mEq/L) 139 Potassium (3.4 - 5.0 mEq/L) 3.1 L Chloride (100 - 108 mEq/L) 106 Carbon Dioxide (21 - 33 mEq/L) 24 Anion Gap (0 - 20) 12 BUN (7 - 18 mg/dL) 27 H Creatinine (0.6 - 1.3 mg/dL) 2.4 H Glomerular Filtr Rate (70 - 80) 19.8 L Glucose (70 - 110 mg/dL) 115 H POC Glucose (70 - 110 MG/DL) 130 H 112 H 139 H Calcium (8.0 - 10.5 mg/dL) 8.1 Phosphorus (2.5 - 4.9 MG/DL) 3.4 Magnesium (1.8 - 2.4 mg/dL) 1.50 LHematology WBC (4.5 - 11.0 x10 3/uL) 9.48 RBC (3.54 - 5.02 x10 6/uL) 2.72 L Hgb (11.0 - 15.0 g/dL) 8.0 L Hct (33.0 - 45.0 %) 26.2 L MCV (81.0 - 99.0 fL) 96.3 MCH (27.0 - 33.0 pg) 29.4 MCHC (33.0 - 37.0 g/dL) 30.5 L RDW (11.5 - 14.5 %) 14.1 Plt Count (150 - 400 x10 3/uL) 216 MPV (7.0 - 9.0 fL) 10.0 H Neut % (Auto) (56.0 - 77.0 %) 57.0 Lymph % (Auto) (14.0 - 32.0 %) 25.3 [place] % (Auto) (4.8 - 9.0 %) 14.7 H Eos % (Auto) (0.3 - 3.7 %) 1.4 Baso % (Auto) (0.0 - 2.0 %) 0.4 Neut # (Auto) (2.0 - 7.6 x10 3/uL) 5.41 Lymph # (Auto) (1.0 - 3.8 x10 3/uL) 2.40 [place] # (Auto) (0.1 - 0.8 x10 3/uL) 1.39 H Eos # (Auto) (0.0 - 0.2 x10 3/uL) 0.13 Baso # (Auto) (0.0 - 0.2 x10 3/uL) 0.04 Abs Immat Gran (auto) (0.00 - 0.03 x10 3/uL) 0.11 H Add Manual Diff NO Immature Gran % (0.0 - 2.0 %) 1.2 Nucleated RBC % (0 - 0 %) 0.2 H Nucleated RBCs # (Man) (0.0 - 0.1 x10 3/uL) 0.02 10/05 1732 Chemistry POC Glucose (70 - 110 MG/DL) 174 H Serology COVID-19 PCR (Negative) Negative Diagnosis, Assessment PlanProblem List/A P: 1. Acute renal failure 2. Physical deconditioning 3. Hypomagnesemia 4. Lactic acidosis 5. DKA (diabetic ketoacidoses) 6. Metabolic acidosis 7. Gastric distention Free Text A P:74 years old female with past medical history significant for Alzheimer's dementia, behavioral disturbance, hypertension, type 2 diabetes mellitus, migraine headaches, anxiety disorder, bowel and bladder incontinence, rheumatoidarthritis, frequent UTI. She was admitted secondary to severe lactic acidosis, metabolic acidosis with anion gap secondary to metformin and dehydration. Started on hemodialysis secondary to acute renal failure and lactic acidosis with multiple electrolyte abnormalities including hypokalemia, hypo-Juan anemia, hypocalcemia, hypoalbuminemia. Patient then developed acute pulmonary vascular congestion is being diuresed. Plan: Physical therapy, Occupational Therapy and speech therapy have been consulted. Due to patient being an unreliable historian and moderate dementia she would benefit from returning to snf facility following her [facility]. I discussed with the patient's rpvjysws-oi-fme who is on the chart as 1 of the contacts and she states their wish is for her to return to [facility] once medically cleared. 10/01: Encourage particpation with therpay.C. Diff not collected. Pt hgb stable.SNF once ready to be discharged. 10/02: Pt looks sleepy this a.m. Cr climbing. Minimal breakfast eaten this a.m. Nephrology on board monitoring. Plans to get MAg and Midodrine started. Encourage particpation with therapy. MAX A with bed mobility. Transfers not attempted. 10/06: COVID ruled out. Pt needs assistance. PT/OT to continue to follow. SNF once cleared. Rehab attestation:Face to face exam completed. Treatment plan discussed with patient. at 1639 RPT #:[id number] OF REPORTPRProgress [id number]:37:00G.[id number] for patient fmwdCBJDIAVEIYLOGC8194-47-02L08:39:[address] [facility] 2019-10-07 08:17:00 [id number] GYFxt/susOhIREmcT Sja+zqhyrNEGcee4Xw1e2fKjDb2519-01-17Z06:17:00 [facility] ([facility])Hospitalist Progress NoteREPORT#:[id number] REPORT STATUS: SignedDATE:10/07/19 TIME: 816 PATIENT: MAC AGUSTIN UNIT #: [id number]#: [id number] [address] [birth year] AGE: 74 SEX: F ATTEND: Joel Myers AUTHOR: Joel Myers MD * ALL edits or amendments must be made on the electronic/computer document * SubjectiveChief Complaint:follow up for NATHEN/CKD, HTN. Review of SystemsAdditional notes:12 point ROS negative except for mentioned in HPI. Objective GeneralVS/I O:Vital Signs: Date Time Temp Pulse Resp B/P B/P Pulse O2 O2 Flow FiO2 Mean Ox Delivery Rate 10/06 0601 59 15 129/62 89 94 10/06 0501 56 14 156/65 94 98 10/06 0431 97.9 10/06 0400 58 10 137/65 93 96 10/06 0300 61 30 127/62 89 97 10/06 0200 59 22 115/58 84 97 10/06 0100 53 18 131/60 87 99 10/06 0000 53 15 136/62 89 100 10/05 2230 51 16 10/05 2229 98.0 10/05 2200 54 120/58 83 94 10/05 2158 116 24 125/58 83 92 10/05 2130 53 20 96 10/05 2100 53 21 117/58 84 96 10/05 2039 98.4 10/05 1752 97.7 63 16 104/68 80.0 99 Nasal 3.352456 cannula 10/05 1226 98.4 62 16 114/69 83.9 100 Nasal 3.048034 cannula 24 hour I O ending at 0700: 10/06 0700 10/05 1900 Intake Total 200 980.00 Output Total Balance 200 980.00 Intake, IV 150.00 Intake, Oral 200 420 Intake, Oral 410 Supplement Number 1 Bowel Movements Number 2 Incontinent Voids Number Voids 2 Patient 75.75 kg Weight Patient Weight Weight (lb): 167Weight (oz): 15.88Weight (kg): 75.75 Medications:Active Meds + DC'd Last 24 HrsPotassium Chloride 50 ML Q1HR IV Magnesium Sulfate 50 ML ONCE ONE IV Furosemide 40 MG ONCE ONE IV (DC) Midodrine 5 MG 0900,1300,1700 PO Sodium Chloride 1,000 ML .[id number] IV (DC) Pantoprazole 40 MG BID@0600,1800 PO Megestrol Acetate 800 MG DAILY PO Zinc Oxide 1 APPLIC BID TOPICAL Lidocaine 1 EA Q24H TOPICAL Insulin Human Lispro 0 AC HS SUBQ Acetaminophen 650 MG Q4H PRN PRN PO Heparin Sodium 5,000 UNIT Q12HR SUBQ Physical ExamGeneral appearance: confused, alert, awakeHead/Eyes: atraumatic, normocephalicENT: moist mucosal membranesNeck: non-tender, no JVD, no masses or swellingCardiovascular: normal heart sounds, regular rate rhythmRespiratory: decreased breath sounds, rales (basal), rhonchi, symmetric expansion, no distress, no rales appreciated on anterior examAbdomen: soft, no distention, no guarding, no reboundGenitourinary: no bladder distentionExtremities: edema (bLE +1), no clubbing, no cyanosisMusculoskeletal: normal inspectionNeuro/FAST FOOD ATTENDANT: no motor deficitsSkin: no rashPsychiatry: normal affect ResultsFindings/Data:Laboratory Tests 10/06 10/06 10/05 10/05 10/05 0749 7 2008 1732 1223 Chemistry Sodium (134 - 147 mEq/L) 139 Potassium (3.4 - 5.0 mEq/L) 3.1 L Chloride (100 - 108 mEq/L) 106 Carbon Dioxide (21 - 33 mEq/L) 24 Anion Gap (0 - 20) 12 BUN (7 - 18 mg/dL) 27 H Creatinine (0.6 - 1.3 mg/dL) 2.4 H Glomerular Filtr Rate (70 - 80) 19.8 L Glucose (70 - 110 mg/dL) 115 H POC Glucose (70 - 110 MG/DL) 112 H 139 H 174 H 204 H Calcium (8.0 - 10.5 mg/dL) 8.1 Phosphorus (2.5 - 4.9 MG/DL) 3.4 Magnesium (1.8 - 2.4 mg/dL) 1.50 L Laboratory Tests 10/06 0247 Hematology WBC (4.5 - 11.0 x10 3/uL) 9.48 RBC (3.54 - 5.02 x10 6/uL) 2.72 L Hgb (11.0 - 15.0 g/dL) 8.0 L Hct (33.0 - 45.0 %) 26.2 L MCV (81.0 - 99.0 fL) 96.3 MCH (27.0 - 33.0 pg) 29.4 MCHC (33.0 - 37.0 g/dL) 30.5 L RDW (11.5 - 14.5 %) 14.1 Plt Count (150 - 400 x10 3/uL) 216 MPV (7.0 - 9.0 fL) 10.0 H Neut % (Auto) (56.0 - 77.0 %) 57.0 Lymph % (Auto) (14.0 - 32.0 %) 25.3 [place] % (Auto) (4.8 - 9.0 %) 14.7 H Eos % (Auto) (0.3 - 3.7 %) 1.4 Baso % (Auto) (0.0 - 2.0 %) 0.4 Neut # (Auto) (2.0 - 7.6 x10 3/uL) 5.41 Lymph # (Auto) (1.0 - 3.8 x10 3/uL) 2.40 [place] # (Auto) (0.1 - 0.8 x10 3/uL) 1.39 H Eos # (Auto) (0.0 - 0.2 x10 3/uL) 0.13 Baso # (Auto) (0.0 - 0.2 x10 3/uL) 0.04 Abs Immat Gran (auto) (0.00 - 0.03 x10 3/uL) 0.11 H Add Manual Diff NO Immature Gran % (0.0 - 2.0 %) 1.2 Nucleated RBC % (0 - 0 %) 0.2 H Nucleated RBCs # (Man) (0.0 - 0.1 x10 3/uL) 0.02 Laboratory Tests 10/05 1355 Serology COVID-19 PCR (Negative) Negative Nasal/Oral COVID-19 PCR (Negative) Negative Radiology data:Recent Impressions:RADIOLOGY - XR CHEST 1 V 10/05 0930 Report Impression - Status: SIGNED Entered: 10/06/2019 0943 IMPRESSION:1. Decreasing bilateral pleural effusions and bibasilar atelectasis.2. Stable pulmonary vascular congestionImpression By: Delvis Johnson M.D. Diagnosis, Assessment PlanPlan discussed with: patient, nurse Free Text DxA P NotesFree text DxA P notes:Severe lactic acidosisSevere metabolic acidosisAcute renal failureHypocalcemiaHypomagnesemia?Septic shock vs lactic acidosis from metforminDehydrationHypothermiaDMHTNDementia with behavior disturbancepersistent hypoglycemia Plan:Ms. Agustin is a 74 yo female with non-specific symptoms of not feeling well, poor appetite that was found to have abnormal labs at [facility], sent to ED for evaluation. In the ED, found to have severe lactic and metabolic acidosis. Discussed at length with ICU (Dr. Lin) and Renal (Dr Aguilar). Given her [facility] imaging, urinalysis, CXR are unremarkable for this level of acidosis, perhaps this acidosis is secondary to metformin. Plan is to dialyize patient to look for improvement. If no improvement, perhaps this is ischemic bowel. Will continue empiric Zosyn. - Zosyn- blood cultures pending- hold home meds- Accuchecks and SSI- replace electrolytes- heparin for DVT prophylaxsis 09/26Improved lactic acidosis with dialysis. Given improvement, likely this was lactic acidosis secondary to metformin. WBC persistently elevated at 19, will continue broad spectrum abx for now - blood cultures negative - UA unremarkable - monitor CBC for downtrend - if WBC remains elevated with mention of possible neoplasm in stomach, would consider work up however, this patient has dementia with low quality of life, not a good candidate for work up/treatment.BS well controlled with current insulin scheduleCheck labs in am 09/27Lactate remains normal, continue to hold metforminPt noted return of anion gap acidosis with ketonuria. Discussed with Dr. Aguilar, nephrology. Pt placed on DKA protocol to close anion gap, on D10 for glucose needs while on insulin drip.BNP elevated with clear lungs, no dependent edema, decreased O2 requirement. Give one dose of Lasix 40 mg IV, check CXR in the am, monitor for volume overload while getting DKA fluids.WBC decreased to 15, continue abx for now, d/c after 5 daysSome blood noted in stool, CT with signs of chronic inflammation. Given her dementia, unsure that patient would tolerate bowel prep. GI consulted. Appreciate input on area in stomach with possible neoplasm. Check labs in am 09/28Anion gap closed, off insulin dripElevated lactate, monitorCXR shows severe vascular congestion and pleural fluid, likely related to fluidsgiven for lactic acidosis and metabolic acidosis, pt not in respiratory distress - Lasix 60 mg IV q8 iniated by nephrology - D10 at 30 cc/hr to maintain blood sugarWBC decreased to 13, d/c abx after 5 daysColon with chronic inflammation, no work up per GIWill need EGD to evaluate abnormality in gastric wall once improvedCheck labs in am 09/29Off insulin dripCXR reviewedCont lasixWBC count came down to 10.5On zosynTransfer to the floordw RN, TRUCK DRIVER TEAMSTER, consultantsCXR and telemetry personally reviewedFurther recs per clinical course 10/01/2019 - blood sugars stable on D10W. will switch to D5W - consider endo eval if persistently hypoglycemic - monitor renal function closely - off antibiotics - await stool samples. no diarrhea overnight - PT/OT - start mobilizing. rehab eval - on IV PPI. ? switch to po - will defer to GI - ? need for EGD 10/02/2019 - Back on Heparin SQ - Megace started. - switched to po PPI. - Blood sugars up. will d/c IV fluids at this time and monitor blood sugars closely - observe off antibiotics - mobilize - likely back to SNF in the next 1-2 days 10/03/2019 - will restart IV fluids due to worsening renal function - clinically dry. not taking in any signficant food or liquids - follow creatinine closelly - continue Megace - anticipate back to SNF once renal function more stable - Heparin for VTE 10/04/2019 - follow renal function - on IVF. renal increased rate - watch for volume overload - off antibiotics - continue Megace - on Heparin 10/05/2019 - follow creatinine. continue IVF for now - Heparing for VTE - renal following - d/w patient's nurse. - calorie counting 10/06/2019 - patient very short of breath. suspicious for volume overload - will stop IVF - give 1 dose of lasix - check CXR and BNP - continue Megace - BP more stable on Midodrine - continue to mobilize - heparin for VTE - daughter voiced concern about patient's exposure to COVID at the facility shecame from. Will test for COVID-19 10/07/2019 - Rapid COVID and PCR test negative - transfer out of [facility] - replete K+ and Mg+ - off IV fluids. - renal function improvingtotal time spent with evaluating patient/data as well as providing education/counselling to patient was more than 35 minutes at 0733 RPT #:[id number] OF REPORTPRProgress Cgxm6217-78-19R67:17:00G.[id number] for patient jnwvWTBWGRSALJKZXF2143-47-83H42:33:22 [facility] 2019-10-07 07:32:00 [id number] LNBN3VCGNidDSNUMy LH71vP+BcR9P0JmypOCHxwgyDt7187-53-42W05:32:00 [facility] Progress NoteREPORT#:[id number] REPORT STATUS: SignedDATE:10/07/19 TIME: 0732 PATIENT: MAC AGUSTIN UNIT #: [id number]#: [id number] [address] [birth year] AGE: 74 SEX: F ATTEND: Joel Myers [facility] AUTHOR: Rabia Aguilar MD * ALL edits or amendments must be made on the electronic/computer document * SubjectiveChief Complaint:AMS/Lactic acidosis/AKIUnable to obtain: patient conditionComments:Patient seen and evaluated, HPI no change from initial, feels okay Review of SystemsUnable to obtain due to:patient's condition Objective GeneralVS/I O:Vital Signs: Date Time Temp Pulse Resp B/P B/P Pulse O2 O2 Flow FiO2 Mean Ox Delivery Rate 10/06 0601 59 15 129/62 89 94 10/06 0501 56 14 156/65 94 98 10/06 0431 36.6 10/06 0400 58 10 137/65 93 96 10/06 0300 61 30 127/62 89 97 10/06 0200 59 22 115/58 84 97 10/06 0100 53 18 131/60 87 99 10/06 0000 53 15 136/62 89 100 10/05 2230 51 16 10/05 2229 36.7 10/05 2200 54 120/58 83 94 10/05 2158 116 24 125/58 83 92 10/05 2130 53 20 96 10/05 2100 53 21 117/58 84 96 10/05 2039 36.9 10/05 1752 36.5 63 16 104/68 80.0 99 Nasal 3.227037 cannula 10/05 1226 36.9 62 16 114/69 83.9 100 Nasal 3.332385 cannula 10/05 0736 36.9 61 16 107/53 71.1 97 Nasal 3.547135 cannula 24 hour I O ending at 0700: 10/06 0700 10/05 1900 Intake Total 200 980.00 Output Total Balance 200 980.00 Intake, IV 150.00 Intake, Oral 200 420 Intake, Oral 410 Supplement Number 1 Bowel Movements Number 2 Incontinent Voids Number Voids 2 Patient 75.75 kg Weight Physical ExamGeneral appearance: alert, no acute distressHead/eyes: atraumatic, normocephalicENT: normal noseNeck: supple/no meningismusCardiovascular: normal heart sounds, no rubRespiratory: aerating well, symmetric expansionAbdomen: softGenitourinary: no foleyExtremities: no edemaMusculoskeletal: normal inspectionNeuro/FAST FOOD ATTENDANT: altered mental statusSkin: dry ResultsFindings/Data:Laboratory Tests 10/062 1223 0734 Chemistry Sodium (134 - 147 mEq/L) 139 Potassium (3.4 - 5.0 mEq/L) 3.1 L Chloride (100 - 108 mEq/L) 106 Carbon Dioxide (21 - 33 mEq/L) 24 Anion Gap (0 - 20) 12 BUN (7 - 18 mg/dL) 27 H Creatinine (0.6 - 1.3 mg/dL) 2.4 H Glomerular Filtr Rate (70 - 80) 19.8 L Glucose (70 - 110 mg/dL) 115 H POC Glucose (70 - 110 MG/DL) 139 H 174 H 204 H 108 Calcium (8.0 - 10.5 mg/dL) 8.1 Phosphorus (2.5 - 4.9 MG/DL) 3.4 Magnesium (1.8 - 2.4 mg/dL) 1.50 L Laboratory Tests 10/06 246 Hematology WBC (4.5 - 11.0 x10 3/uL) 9.48 RBC (3.54 - 5.02 x10 6/uL) 2.72 L Hgb (11.0 - 15.0 g/dL) 8.0 L Hct (33.0 - 45.0 %) 26.2 L MCV (81.0 - 99.0 fL) 96.3 MCH (27.0 - 33.0 pg) 29.4 MCHC (33.0 - 37.0 g/dL) 30.5 L RDW (11.5 - 14.5 %) 14.1 Plt Count (150 - 400 x10 3/uL) 216 MPV (7.0 - 9.0 fL) 10.0 H Neut % (Auto) (56.0 - 77.0 %) 57.0 Lymph % (Auto) (14.0 - 32.0 %) 25.3 [place] % (Auto) (4.8 - 9.0 %) 14.7 H Eos % (Auto) (0.3 - 3.7 %) 1.4 Baso % (Auto) (0.0 - 2.0 %) 0.4 Neut # (Auto) (2.0 - 7.6 x10 3/uL) 5.41 Lymph # (Auto) (1.0 - 3.8 x10 3/uL) 2.40 [place] # (Auto) (0.1 - 0.8 x10 3/uL) 1.39 H Eos # (Auto) (0.0 - 0.2 x10 3/uL) 0.13 Baso # (Auto) (0.0 - 0.2 x10 3/uL) 0.04 Abs Immat Gran (auto) (0.00 - 0.03 x10 3/uL) 0.11 H Add Manual Diff NO Immature Gran % (0.0 - 2.0 %) 1.2 Nucleated RBC % (0 - 0 %) 0.2 H Nucleated RBCs # (Man) (0.0 - 0.1 x10 3/uL) 0.02 Laboratory Tests 10/05 1355 Serology Nasal/Oral COVID-19 PCR (Negative) Negative Diagnosis, Assessment PlanFree Text A P:Patient seen and evaluated, discussed with care team, images and laboratories reviewed.History of dementiaHistory of rheumatoid arthritisHistory of frequent fallsHistory of frequent UTIsHistory of hypertension: Currently hypotensiveHypokalemia: We will supplementSevere hypomagnesemia we will supplementHypocalcemia: We will supplementHypoalbuminemiaSevere lactic acidosis: Etiology, could be related to septic shock, however source is unclear, rule out ischemic bowel, Fito, will need to review her medications if patient has been on metformin, lactic acidosis due to metformin in the setting of acute renal failure is a possibility and will do hemodialysis in the setting.Patient has been taking Metformin 1000 BID, kenneth has lactic acidosis that is induced by Metformin, discussed with deysi and ICC/Primary team will proceed with HD4 mental status a lot better, hemodynamically more stable, pressors being weaned off, received 6 hours of hemodialysis yesterday, her last set of blood gas showed a pH of 7.40, PCO2 25, PO2 55, lactic acid 6.2 improving, sodium is 143 potassium 3.6 CO2 20 chloride 101 BUN 13 creatinine 1.1, hemoglobin this morning 9.7, white blood count 19.78 trending down, platelet 156, her clinical picture is consistent with metformin induced lactic acidosis, will do another session of hemodialysis, 4 hours, potassium 3.5, no ultrafiltration, will give 20 mmol of potassium phosphate and expectation of hypophosphatemia during hemodialysis. katie and evaluated during HD, discussed with RN and HD nurse09/28/2019 laboratories from this morning showed sodium 144, potassium 3.3 we will give KCl 20 mEq IV x1, chloride 104, bicarbonate 16, creatinine 1.2, lacticacid 1.2, hemoglobin 8.4, white blood count 15.2, blood culture still negative, anion gap today is 24 with a normal lactic acid etiology unclear will repeat BMP, repeat lactic acid and order serum acetone and do urinalysis to check for urine ketones, also will do a blood gas. Ketones came back as large, This is kenneth starvation ketoacidosis that has been exacerbated by gluconeogenesis inhibition by Metformin and has been reported in the literature, will start Glucose and insulin drip09/29/2019 laboratories from this morning showed sodium 142, potassium 2.7 we will give KCl 20 mEq IV x2, bicarbonate 32 with a chloride of 103 with disappearance of the anion gap correction of anion gap, will DC IV fluid with sodium bicarbonate, will DC insulin drip, changed to insulin sliding scale, start D10 at 30 cc/h since patient is noted nauseated, her chest x-ray showed pulmonary edema, will give IV Lasix 60 mg every 8 hours, give a dose of metolazone, her phosphorus 1.4, will give potassium phosphate 15 mmol IV x1, recheck lab in the afternoon, her lactic acid is 4 up some, not clear why is it elevated, we will recheck in the afternoon, her creatinine is 2.2, not sure whather baseline creatinine, her creatinine is relatively stable since yesterday, will monitor closely, hemoglobin is 7.8, white blood count 13.57 improving.09/30/2019 laboratories from this morning showed sodium 138, potassium 3.5, CO2 34, chloride 100, BUN and creatinine 22 and 2.4 up some likely related to diuretics, albumin 1.8, hemoglobin 7.8, platelet 60, white blood count 10.51 continues to trend down, lactic acid 1.2 within normal limit, urine output [id number] cc with Lasix. Chest x-ray still pending. Progressive thrombocytopenia with progressive decrease in hemoglobin, the latter could be related to fluid resuscitation, multiple blood draws and blood loss during dialysis procedure, however will check LDH, haptoglobin, PT/ PT. 10/01/2019 patient was transferred to the floor, PT PTT are within normal limit, LDH slightly elevated 276, liver function tests are within normal limit, haptoglobin pending, chest x-ray is better from yesterday. Sodium 138 today potassium 3.8, CO2 32, BUN and creatinine 25 and 2.6 trending up likely related to volume contraction. Will check post void resdiual10/03/2019 laboratories from this morning showed sodium 137, potassium 3.6, CO2 28, BUN and creatinine 30 and 3.0 continue to rise, blood pressures on the low side will try midodrine 5 mg p.o. 3 times daily, hypomagnesemia 1.7 we will givemagnesium sulfate 1 g IV x1, hemoglobin 8.1, white blood count 5.21, will check the results of postvoid residual. BNP 109 will increase IVF to 75 cc per 10/04/19 Hgb 8.4, WBC 109, Na 136, K 4.1, HCO3 23, BUN 31, Creat 3.0 stable sinceyesterday, continue IVF10/05/2019 laboratories from today showed hemoglobin 8, platelet 192, white bloodcount 7.15, sodium 138, potassium 3.3 we will give KCl 10 mEq IV x3 doses, CO2 28, BUN and creatinine 27 and 2.7 trending down, continue IV fluid.10/06/2019 laboratories from this morning showed hemoglobin 7.6, white blood count 7.11, platelet 212, sodium 139, potassium 3.6, CO2 23, BUN and creatinine 26 and 2.6 continue to trend down, continue IV fluid.10/07/2019 laboratories from this morning showed sodium 139, potassium 3.1 we will give KCl 10 mEq IV times 4 doses, CO2 24, BUN and creatinine 27 and 22.4 improving, hypomagnesemia 1.5 we will give magnesium sulfate 2 g IV x1, hemoglobin 8, platelet 216.Chest x-ray from yesterday showed mild congestion, her BNP was 300, IV fluid was DC'd. at 1214 RPT #:[id number] OF REPORTPRProgress [id number]:32:00G.[id number] for patient [id number]:14:[address] [facility] 2019-10-06 08:21:00 [id number] [id number] Nx3fwr+dbDy3T0Woa5iy+4QF1u1481-31-10F98:21:00 [facility] ([facility])Nephrology Progress NoteREPORT#:[id number] REPORT STATUS: SignedDATE:10/06/19 TIME: 820 PATIENT: MAC AGUSTIN UNIT #: [id number]#: [id number] [address] [birth year] AGE: 74 SEX: F ATTEND: Joel Myers MDA AUTHOR: Rabia Aguilar MD * ALL edits or amendments must be made on the electronic/computer document * SubjectiveChief Complaint:AMS/Lactic acidosis/AKIUnable to obtain: dementiaComments:Patient seen and evaluated, HPI no change from initial, feels okay Review of SystemsUnable to obtain due to:dementia Objective GeneralVS/I O:Vital Signs: Date Time Temp Pulse Resp B/P B/P Pulse O2 O2 Flow FiO2 Mean Ox Delivery Rate 10/05 0736 36.9 61 16 107/53 71.1 97 Nasal 3.821304 cannula 10/05 0554 37.2 56 16 100/61 74.0 94 10/05 0007 37.0 51 16 116/66 82.7 95 10/04 202 37.0 56 16 107/56 72.7 95 10/04 1920 3.284552 10/04 1709 37.0 60 16 110/65 80.1 93 Room air 10/04 1130 37.0 64 16 117/75 89.1 97 Nasal 3.688307 cannula 10/04 0856 36.7 63 16 115/74 87.8 98 Nasal 3.539825 cannula 24 hour I O ending at 0700: 10/05 0700 10/04 1900 Intake Total 100 1200.00 Output Total Balance 100 1200.00 Intake, IV 700.00 Intake, Oral 100 170 Intake, Oral 0 330 Supplement Number 1 Bowel Movements Number Voids 1 MedicationsActive Meds + DC'd Last 24 HrsPotassium Chloride 50 ML Q1HR IV (DC) Midodrine 5 MG 0900,1300,1700 PO Sodium Chloride 1,000 ML .[id number] IV Pantoprazole 40 MG BID@0600,1800 PO Megestrol Acetate 800 MG DAILY PO Zinc Oxide 1 APPLIC BID TOPICAL Lidocaine 1 EA Q24H TOPICAL Insulin Human Lispro 0 AC HS SUBQ Acetaminophen 650 MG Q4H PRN PRN PO Heparin Sodium 5,000 UNIT Q12HR SUBQ Physical ExamGeneral appearance: alert, no acute distressHead/eyes: atraumatic, normocephalicENT: normal noseNeck: supple/no meningismusCardiovascular: normal heart sounds, no rubRespiratory: aerating well, symmetric expansionAbdomen: softGenitourinary: no foleyExtremities: no edemaMusculoskeletal: normal inspectionNeuro/FAST FOOD ATTENDANT: altered mental statusSkin: dry ResultsFindings/Data:Laboratory Tests 10/04 1710 1128 0820 0538 Chemistry Sodium (134 - 147 mEq/L) 138 Potassium (3.4 - 5.0 mEq/L) 3.3 L Chloride (100 - 108 mEq/L) 102 Carbon Dioxide (21 - 33 mEq/L) 28 Anion Gap (0 - 20) 11 BUN (7 - 18 mg/dL) 27 H Creatinine (0.6 - 1.3 mg/dL) 2.7 H Glomerular Filtr Rate (70 - 80) 17.3 L Glucose (70 - 110 mg/dL) 107 POC Glucose (70 - 110 MG/DL) 143 H 112 H 168 H 118 H Calcium (8.0 - 10.5 mg/dL) 8.2 Phosphorus (2.5 - 4.9 MG/DL) 2.8 Magnesium (1.8 - 2.4 mg/dL) 1.90 10/03 10/03 10/03 10/03 10/03 2103 1551 1139 0721 0505 Chemistry Sodium (134 - 147 mEq/L) 136 Potassium (3.4 - 5.0 mEq/L) 4.1 Chloride (100 - 108 mEq/L) 102 Carbon Dioxide (21 - 33 mEq/L) 23 Anion Gap (0 - 20) 15 BUN (7 - 18 mg/dL) 31 H Creatinine (0.6 - 1.3 mg/dL) 3.0 H Glomerular Filtr Rate (70 - 80) 15.3 L Glucose (70 - 110 mg/dL) 117 H POC Glucose (70 - 110 MG/DL) 145 H 120 H 156 H 121 H Calcium (8.0 - 10.5 mg/dL) 8.1 Phosphorus (2.5 - 4.9 MG/DL) 3.3 Magnesium (1.8 - 2.4 mg/dL) 1.70 L 10/02 10/02 10/02 10/02 1912 1557 1057 0826 Chemistry POC Glucose (70 - 110 MG/DL) 123 H 123 H 142 H 105 Laboratory Tests 10/05 10/04 0405 0538 Hematology WBC (4.5 - 11.0 x10 3/uL) 7.11 7.15 RBC (3.54 - 5.02 x10 6/uL) 2.56 L 2.71 L Hgb (11.0 - 15.0 g/dL) 7.6 L 8.0 L Hct (33.0 - 45.0 %) 23.5 L 24.7 L MCV (81.0 - 99.0 fL) 91.8 91.1 MCH (27.0 - 33.0 pg) 29.7 29.5 MCHC (33.0 - 37.0 g/dL) 32.3 L 32.4 L RDW (11.5 - 14.5 %) 13.6 13.3 Plt Count (150 - 400 x10 3/uL) 212 192 MPV (7.0 - 9.0 fL) 10.7 H 10.3 H Add Manual Diff YES Seg Neutrophils % (37 - 69 %) 57 Band Neutrophils % (0.0 - 10.0 %) 2.0 Lymphocytes % (Manual) (23 - 55 %) 25 Monocytes % (Manual) (0 - 10 %) 13 H Eosinophils % (Manual) (0.0 - 4.0 %) 2 Basophils % (Manual) (0.0 - 2.0 %) 1 Nucleated RBC % (%) 1 Reactive Lymphocytes (%) MODERATE Toxic Granulation 1+ Platelet Estimate (ADEQUATE THOUSAND) Adequate Plt Morphology Comment LARGE PLATELETS Hypochromasia 1+ Poikilocytosis SLIGHT Anisocytosis SLIGHT 10/03 0505 Hematology WBC (4.5 - 11.0 x10 3/uL) 5.64 RBC (3.54 - 5.02 x10 6/uL) 2.78 L Hgb (11.0 - 15.0 g/dL) 8.4 L Hct (33.0 - 45.0 %) 26.3 L MCV (81.0 - 99.0 fL) 94.6 MCH (27.0 - 33.0 pg) 30.2 MCHC (33.0 - 37.0 g/dL) 31.9 L RDW (11.5 - 14.5 %) 13.7 Plt Count (150 - 400 x10 3/uL) 109 L MPV (7.0 - 9.0 fL) 11.7 H Neut % (Auto) (56.0 - 77.0 %) 48.4 L Lymph % (Auto) (14.0 - 32.0 %) 29.3 [place] % (Auto) (4.8 - 9.0 %) 19.0 H Eos % (Auto) (0.3 - 3.7 %) 1.8 Baso % (Auto) (0.0 - 2.0 %) 0.4 Neut # (Auto) (2.0 - 7.6 x10 3/uL) 2.74 Lymph # (Auto) (1.0 - 3.8 x10 3/uL) 1.65 [place] # (Auto) (0.1 - 0.8 x10 3/uL) 1.07 H Eos # (Auto) (0.0 - 0.2 x10 3/uL) 0.10 Baso # (Auto) (0.0 - 0.2 x10 3/uL) 0.02 Abs Immat Gran (auto) (0.00 - 0.03 x10 3/uL) 0.06 H Add Manual Diff NO Immature Gran % (0.0 - 2.0 %) 1.1 Nucleated RBC % (0 - 0 %) 0.0 Nucleated RBCs # (Man) (0.0 - 0.1 x10 3/uL) 0.00 Platelet Estimate (ADEQUATE THOUSAND) 112-140 Immature Plt Fraction (0.9 - 11.2 %) 9.2 Plt Morphology Comment LARGE PLATELETS Microbiology Date/Time Procedure - Status Source Growth 10/03 0100 Giardia Antigen (ANA) - COMP STOOL Laboratory Tests 10/04 1710 1128 Chemistry POC Glucose (70 - 110 MG/DL) 143 H 112 H 168 H Laboratory Tests 10/05 0405 Hematology WBC (4.5 - 11.0 x10 3/uL) 7.11 RBC (3.54 - 5.02 x10 6/uL) 2.56 L Hgb (11.0 - 15.0 g/dL) 7.6 L Hct (33.0 - 45.0 %) 23.5 L MCV (81.0 - 99.0 fL) 91.8 MCH (27.0 - 33.0 pg) 29.7 MCHC (33.0 - 37.0 g/dL) 32.3 L RDW (11.5 - 14.5 %) 13.6 Plt Count (150 - 400 x10 3/uL) 212 MPV (7.0 - 9.0 fL) 10.7 H Diagnosis, Assessment PlanFree Text A P:Patient seen and evaluated, discussed with care team, images and laboratories reviewed.History of dementiaHistory of rheumatoid arthritisHistory of frequent fallsHistory of frequent UTIsHistory of hypertension: Currently hypotensiveHypokalemia: We will supplementSevere hypomagnesemia we will supplementHypocalcemia: We will supplementHypoalbuminemiaSevere lactic acidosis: Etiology, could be related to septic shock, however source is unclear, rule out ischemic bowel, Fito, will need to review her medications if patient has been on metformin, lactic acidosis due to metformin in the setting of acute renal failure is a possibility and will do hemodialysis in the setting.Patient has been taking Metformin 1000 BID, kenneth has lactic acidosis that is induced by Metformin, discussed with deysi and ICC/Primary team will proceed with HD4 mental status a lot better, hemodynamically more stable, pressors being weaned off, received 6 hours of hemodialysis yesterday, her last set of blood gas showed a pH of 7.40, PCO2 25, PO2 55, lactic acid 6.2 improving, sodium is 143 potassium 3.6 CO2 20 chloride 101 BUN 13 creatinine 1.1, hemoglobin this morning 9.7, white blood count 19.78 trending down, platelet 156, her clinical picture is consistent with metformin induced lactic acidosis, will do another session of hemodialysis, 4 hours, potassium 3.5, no ultrafiltration, will give 20 mmol of potassium phosphate and expectation of hypophosphatemia during hemodialysis. katie and evaluated during HD, discussed with RN and HD nurse09/28/2019 laboratories from this morning showed sodium 144, potassium 3.3 we will give KCl 20 mEq IV x1, chloride 104, bicarbonate 16, creatinine 1.2, lacticacid 1.2, hemoglobin 8.4, white blood count 15.2, blood culture still negative, anion gap today is 24 with a normal lactic acid etiology unclear will repeat BMP, repeat lactic acid and order serum acetone and do urinalysis to check for urine ketones, also will do a blood gas. Ketones came back as large, This is kenneth starvation ketoacidosis that has been exacerbated by gluconeogenesis inhibition by Metformin and has been reported in the literature, will start Glucose and insulin drip09/29/2019 laboratories from this morning showed sodium 142, potassium 2.7 we will give KCl 20 mEq IV x2, bicarbonate 32 with a chloride of 103 with disappearance of the anion gap correction of anion gap, will DC IV fluid with sodium bicarbonate, will DC insulin drip, changed to insulin sliding scale, start D10 at 30 cc/h since patient is noted nauseated, her chest x-ray showed pulmonary edema, will give IV Lasix 60 mg every 8 hours, give a dose of metolazone, her phosphorus 1.4, will give potassium phosphate 15 mmol IV x1, recheck lab in the afternoon, her lactic acid is 4 up some, not clear why is it elevated, we will recheck in the afternoon, her creatinine is 2.2, not sure whather baseline creatinine, her creatinine is relatively stable since yesterday, will monitor closely, hemoglobin is 7.8, white blood count 13.57 improving.09/30/2019 laboratories from this morning showed sodium 138, potassium 3.5, CO2 34, chloride 100, BUN and creatinine 22 and 2.4 up some likely related to diuretics, albumin 1.8, hemoglobin 7.8, platelet 60, white blood count 10.51 continues to trend down, lactic acid 1.2 within normal limit, urine output [id number] cc with Lasix. Chest x-ray still pending. Progressive thrombocytopenia with progressive decrease in hemoglobin, the latter could be related to fluid resuscitation, multiple blood draws and blood loss during dialysis procedure, however will check LDH, haptoglobin, PT/ PT. 10/01/2019 patient was transferred to the floor, PT PTT are within normal limit, LDH slightly elevated 276, liver function tests are within normal limit, haptoglobin pending, chest x-ray is better from yesterday. Sodium 138 today potassium 3.8, CO2 32, BUN and creatinine 25 and 2.6 trending up likely related to volume contraction. Will check post void resdiual10/03/2019 laboratories from this morning showed sodium 137, potassium 3.6, CO2 28, BUN and creatinine 30 and 3.0 continue to rise, blood pressures on the low side will try midodrine 5 mg p.o. 3 times daily, hypomagnesemia 1.7 we will givemagnesium sulfate 1 g IV x1, hemoglobin 8.1, white blood count 5.21, will check the results of postvoid residual. BNP 109 will increase IVF to 75 cc per 10/04/19 Hgb 8.4, WBC 109, Na 136, K 4.1, HCO3 23, BUN 31, Creat 3.0 stable sinceyesterday, continue IVF10/05/2019 laboratories from today showed hemoglobin 8, platelet 192, white bloodcount 7.15, sodium 138, potassium 3.3 we will give KCl 10 mEq IV x3 doses, CO2 28, BUN and creatinine 27 and 2.7 trending down, continue IV fluid.10/06/2019 laboratories from this morning showed hemoglobin 7.6, white blood count 7.11, platelet 212, sodium 139, potassium 3.6, CO2 23, BUN and creatinine 26 and 2.6 continue to trend down, continue IV fluid. at 1344 RPT #:[id number] OF REPORTPRProgress Mrbq0716-01-45W60:21:00G.[id number] for patient xlwqSSOHYWNKNMJTYL8783-69-12J05:44:[address] [facility] 2019-10-06 08:00:00 [id number] IFICeqnpSRqI0pynB H5RE7/CP6iAX6klg5bpFj4aGfr1874-87-09X37:00:00 [facility] Progress NoteREPORT#:[id number] REPORT STATUS: SignedDATE:10/06/19 TIME: 0800 PATIENT: MAC AGUSTIN UNIT #: [id number]#: [id number] [address] [birth year] AGE: 74 SEX: F ATTEND: Joel Myers AUTHOR: Joel Myers MD * ALL edits or amendments must be made on the electronic/computer document * SubjectiveChief Complaint:follow up for NATHEN/CKD, HTN. c/o worsening shortness of breath. coughing but not able to expectorate. Review of SystemsAdditional notes:12 point ROS negative except for mentioned in HPI. Objective GeneralVS/I O:Vital Signs: Date Time Temp Pulse Resp B/P B/P Pulse O2 O2 Flow FiO2 Mean Ox Delivery Rate 10/05 0736 98.4 61 16 107/53 71.1 97 Nasal 3.075223 cannula 10/05 0554 99.0 56 16 100/61 74.0 94 10/05 0007 98.6 51 16 116/66 82.7 95 10/04 2021 98.6 56 16 107/56 72.7 95 10/04 1920 3.118408 10/04 1709 98.6 60 16 110/65 80.1 93 Room air 10/04 1130 98.6 64 16 117/75 89.1 97 Nasal 3.745571 cannula 10/04 0856 98.1 63 16 115/74 87.8 98 Nasal 3.348880 cannula 24 hour I O ending at 0700: 10/05 0700 10/04 1900 Intake Total 100 1200.00 Output Total Balance 100 1200.00 Intake, IV 700.00 Intake, Oral 100 170 Intake, Oral 0 330 Supplement Number 1 Bowel Movements Number Voids 1 Patient Weight Weight (lb): 167Weight (oz): 15.88Weight (kg): 75.75 Medications:Active Meds + DC'd Last 24 HrsPotassium Chloride 50 ML Q1HR IV (DC) Midodrine 5 MG 0900,1300,1700 PO Sodium Chloride 1,000 ML .[id number] IV Pantoprazole 40 MG BID@0600,1800 PO Megestrol Acetate 800 MG DAILY PO Zinc Oxide 1 APPLIC BID TOPICAL Lidocaine 1 EA Q24H TOPICAL Insulin Human Lispro 0 AC HS SUBQ Acetaminophen 650 MG Q4H PRN PRN PO Heparin Sodium 5,000 UNIT Q12HR SUBQ Physical ExamGeneral appearance: confused, alert, awakeHead/Eyes: atraumatic, normocephalicENT: moist mucosal membranesNeck: non-tender, no JVD, no masses or swellingCardiovascular: normal heart sounds, regular rate rhythmRespiratory: decreased breath sounds, rales (basal), rhonchi, symmetric expansion, no distress, no rales appreciated on anterior examAbdomen: soft, no distention, no guarding, no reboundGenitourinary: no bladder distentionExtremities: edema (bLE +1), no clubbing, no cyanosisMusculoskeletal: normal inspectionNeuro/FAST FOOD ATTENDANT: no motor deficitsSkin: no rashPsychiatry: normal affect ResultsFindings/Data:Laboratory Tests 10/04 1710 1128 0820 Chemistry POC Glucose (70 - 110 MG/DL) 143 H 112 H 168 H 118 H Laboratory Tests 10/05 0405 Hematology WBC (4.5 - 11.0 x10 3/uL) 7.11 RBC (3.54 - 5.02 x10 6/uL) 2.56 L Hgb (11.0 - 15.0 g/dL) 7.6 L Hct (33.0 - 45.0 %) 23.5 L MCV (81.0 - 99.0 fL) 91.8 MCH (27.0 - 33.0 pg) 29.7 MCHC (33.0 - 37.0 g/dL) 32.3 L RDW (11.5 - 14.5 %) 13.6 Plt Count (150 - 400 x10 3/uL) 212 MPV (7.0 - 9.0 fL) 10.7 H Diagnosis, Assessment Plan Free Text DxA P NotesFree text DxA P notes:Severe lactic acidosisSevere metabolic acidosisAcute renal failureHypocalcemiaHypomagnesemia?Septic shock vs lactic acidosis from metforminDehydrationHypothermiaDMHTNDementia with behavior disturbancepersistent hypoglycemia Plan:Ms. Agustin is a 74 yo female with non-specific symptoms of not feeling well, poor appetite that was found to have abnormal labs at [facility], sent to ED for evaluation. In the ED, found to have severe lactic and metabolic acidosis. Discussed at length with ICU (Dr. Lin) and Renal (Dr Aguilar). Given her [facility] imaging, urinalysis, CXR are unremarkable for this level of acidosis, perhaps this acidosis is secondary to metformin. Plan is to dialyize patient to look for improvement. If no improvement, perhaps this is ischemic bowel. Will continue empiric Zosyn. - Zosyn- blood cultures pending- hold home meds- Accuchecks and SSI- replace electrolytes- heparin for DVT prophylaxsis 09/26Improved lactic acidosis with dialysis. Given improvement, likely this was lactic acidosis secondary to metformin. WBC persistently elevated at 19, will continue broad spectrum abx for now - blood cultures negative - UA unremarkable - monitor CBC for downtrend - if WBC remains elevated with mention of possible neoplasm in stomach, would consider work up however, this patient has dementia with low quality of life, not a good candidate for work up/treatment.BS well controlled with current insulin scheduleCheck labs in am 09/27Lactate remains normal, continue to hold metforminPt noted return of anion gap acidosis with ketonuria. Discussed with Dr. Aguilar, nephrology. Pt placed on DKA protocol to close anion gap, on D10 for glucose needs while on insulin drip.BNP elevated with clear lungs, no dependent edema, decreased O2 requirement. Give one dose of Lasix 40 mg IV, check CXR in the am, monitor for volume overload while getting DKA fluids.WBC decreased to 15, continue abx for now, d/c after 5 daysSome blood noted in stool, CT with signs of chronic inflammation. Given her dementia, unsure that patient would tolerate bowel prep. GI consulted. Appreciate input on area in stomach with possible neoplasm. Check labs in am 09/28Anion gap closed, off insulin dripElevated lactate, monitorCXR shows severe vascular congestion and pleural fluid, likely related to fluidsgiven for lactic acidosis and metabolic acidosis, pt not in respiratory distress - Lasix 60 mg IV q8 iniated by nephrology - D10 at 30 cc/hr to maintain blood sugarWBC decreased to 13, d/c abx after 5 daysColon with chronic inflammation, no work up per GIWill need EGD to evaluate abnormality in gastric wall once improvedCheck labs in am 09/29Off insulin dripCXR reviewedCont lasixWBC count came down to 10.5On zosynTransfer to the floordw RN, TRUCK DRIVER TEAMSTER, consultantsCXR and telemetry personally reviewedFurther recs per clinical course 10/01/2019 - blood sugars stable on D10W. will switch to D5W - consider endo eval if persistently hypoglycemic - monitor renal function closely - off antibiotics - await stool samples. no diarrhea overnight - PT/OT - start mobilizing. rehab eval - on IV PPI. ? switch to po - will defer to GI - ? need for EGD 10/02/2019 - Back on Heparin SQ - Megace started. - switched to po PPI. - Blood sugars up. will d/c IV fluids at this time and monitor blood sugars closely - observe off antibiotics - mobilize - likely back to SNF in the next 1-2 days 10/03/2019 - will restart IV fluids due to worsening renal function - clinically dry. not taking in any signficant food or liquids - follow creatinine closelly - continue Megace - anticipate back to SNF once renal function more stable - Heparin for VTE 10/04/2019 - follow renal function - on IVF. renal increased rate - watch for volume overload - off antibiotics - continue Megace - on Heparin 10/05/2019 - follow creatinine. continue IVF for now - Heparing for VTE - renal following - d/w patient's nurse. - calorie counting 10/06/2019 - patient very short of breath. suspicious for volume overload - will stop IVF - give 1 dose of lasix - check CXR and BNP - continue Megace - BP more stable on Midodrine - continue to mobilize - heparin for VTE - daughter voiced concern about patient's exposure to COVID at the facility shecame from. Will test for COVID-19total time spent with evaluating patient/data as well as providing education/counselling to patient was more than 35 minutes at 0824 RPT #:[id number] OF REPORTPRProgress [id number]:00:00G.[id number] for patient ypvvCIZXAVOVOKQCPW0674-57-54D57:24:59 [facility] 2019-10-05 08:04:00 [id number] JvyIs8/FF9EGxOqrG tqSOqST1YLer5xfTD+zv2j05ed8803-21-49W56:04:00 [facility] ([facility])Nephrology Progress NoteREPORT#:[id number] REPORT STATUS: SignedDATE:10/05/19 TIME: 0804 PATIENT: MAC AGUSTIN UNIT #: [id number]#: [id number] [address] [birth year] AGE: 74 SEX: F ATTEND: Joel Myers [facility] AUTHOR: Rabia Aguilar MD * ALL edits or amendments must be made on the electronic/computer document * SubjectiveChief Complaint:AMS/Lactic acidosis/AKIUnable to obtain: patient conditionComments:Patient seen and evaluated, HPI no change from initial, feels okay Review of SystemsUnable to obtain due to:Patient's condition Objective GeneralVS/I O:Vital Signs: Date Time Temp Pulse Resp B/P B/P Pulse O2 O2 Flow FiO2 Mean Ox Delivery Rate 10/04 0504 36.8 60 17 113/67 82.0 98 10/04 0207 Nasal 4.166394 cannula 10/04 0000 36.6 56 16 114/67 82.4 95 10/03 2105 37.0 56 16 112/69 83.7 98 10/03 1550 36.6 57 18 110/69 82.4 98 Room air 10/03 1142 36.4 55 18 110/63 78.8 97 Room air 10/03 1000 Nasal 4.325743 cannula 24 hour I O ending at 0700: 10/04 0700 10/03 1900 Intake Total 750.00 150 Output Total Balance 750.00 150 Intake, IV 650.00 Intake, Oral 100 120 Intake, Oral 30 Supplement Number 1 Bowel Movements Number 1 Incontinent Voids Number Voids 2 Patient 75.75 kg Weight MedicationsActive Meds + DC'd Last 24 HrsMagnesium Sulfate/Dextrose 100 ML ONCE ONE IV (DC) Midodrine 5 MG 0900,1300,1700 PO Sodium Chloride 1,000 ML .[id number] IV Pantoprazole 40 MG BID@0600,1800 PO Megestrol Acetate 800 MG DAILY PO Zinc Oxide 1 APPLIC BID TOPICAL Lidocaine 1 EA Q24H TOPICAL Insulin Human Lispro 0 AC HS SUBQ Acetaminophen 650 MG Q4H PRN PRN PO Heparin Sodium 5,000 UNIT Q12HR SUBQ Physical ExamGeneral appearance: alert, no acute distressHead/eyes: atraumatic, normocephalicENT: normal noseNeck: supple/no meningismusCardiovascular: normal heart sounds, no rubRespiratory: aerating well, symmetric expansionAbdomen: softGenitourinary: no foleyExtremities: no edemaMusculoskeletal: normal inspectionNeuro/FAST FOOD ATTENDANT: altered mental statusSkin: dry ResultsFindings/Data:Laboratory Tests 10/033 1551 1139 0721 0505 Chemistry Sodium (134 - 147 mEq/L) 136 Potassium (3.4 - 5.0 mEq/L) 4.1 Chloride (100 - 108 mEq/L) 102 Carbon Dioxide (21 - 33 mEq/L) 23 Anion Gap (0 - 20) 15 BUN (7 - 18 mg/dL) 31 H Creatinine (0.6 - 1.3 mg/dL) 3.0 H Glomerular Filtr Rate (70 - 80) 15.3 L Glucose (70 - 110 mg/dL) 117 H POC Glucose (70 - 110 MG/DL) 145 H 120 H 156 H 121 H Calcium (8.0 - 10.5 mg/dL) 8.1 Phosphorus (2.5 - 4.9 MG/DL) 3.3 Magnesium (1.8 - 2.4 mg/dL) 1.70 L 10/02 10/02 10/02 10/02 10/02 1912 1557 1057 0826 0520 Chemistry POC Glucose (70 - 110 MG/DL) 123 H 123 H 142 H 105 B-Natriuretic Peptide (0 - 100 PG/ML) 109.1 H 10/02 10/01 10/01 10/01 0520 1949 1558 1120 Chemistry Sodium (134 - 147 mEq/L) 137 Potassium (3.4 - 5.0 mEq/L) 3.6 Chloride (100 - 108 mEq/L) 100 Carbon Dioxide (21 - 33 mEq/L) 28 Anion Gap (0 - 20) 13 BUN (7 - 18 mg/dL) 30 H Creatinine (0.6 - 1.3 mg/dL) 3.0 H Glomerular Filtr Rate (70 - 80) 15.3 L Glucose (70 - 110 mg/dL) 101 POC Glucose (70 - 110 MG/DL) 99 80 151 H Calcium (8.0 - 10.5 mg/dL) 8.4 Phosphorus (2.5 - 4.9 MG/DL) 2.8 Magnesium (1.8 - 2.4 mg/dL) 1.70 L Laboratory Tests 10/04 10/03 10/02 0538 0505 0520Hematology WBC (4.5 - 11.0 x10 3/uL) 7.15 5.64 5.21 RBC (3.54 - 5.02 x10 6/uL) 2.71 L 2.78 L 2.78 L Hgb (11.0 - 15.0 g/dL) 8.0 L 8.4 L 8.1 L Hct (33.0 - 45.0 %) 24.7 L 26.3 L 26.6 L MCV (81.0 - 99.0 fL) 91.1 94.6 95.7 MCH (27.0 - 33.0 pg) 29.5 30.2 29.1 MCHC (33.0 - 37.0 g/dL) 32.4 L 31.9 L 30.5 L RDW (11.5 - 14.5 %) 13.3 13.7 13.6 Plt Count (150 - 400 x10 3/uL) 192 109 L 105 L MPV (7.0 - 9.0 fL) 10.3 H 11.7 H 12.0 H Neut % (Auto) (56.0 - 77.0 %) 48.4 L 52.4 L Lymph % (Auto) (14.0 - 32.0 %) 29.3 30.3 [place] % (Auto) (4.8 - 9.0 %) 19.0 H 14.0 H Eos % (Auto) (0.3 - 3.7 %) 1.8 2.5 Baso % (Auto) (0.0 - 2.0 %) 0.4 0.4 Neut # (Auto) (2.0 - 7.6 x10 3/uL) 2.74 2.73 Lymph # (Auto) (1.0 - 3.8 x10 3/uL) 1.65 1.58 [place] # (Auto) (0.1 - 0.8 x10 3/uL) 1.07 H 0.73 Eos # (Auto) (0.0 - 0.2 x10 3/uL) 0.10 0.13 Baso # (Auto) (0.0 - 0.2 x10 3/uL) 0.02 0.02 Abs Immat Gran (auto) (0.00 - 0.03 x10 3/uL) 0.06 H 0.02 Add Manual Diff NO NO Immature Gran % (0.0 - 2.0 %) 1.1 0.4 Nucleated RBC % (0 - 0 %) 0.0 0.0 Nucleated RBCs # (Man) (0.0 - 0.1 x10 3/uL) 0.00 0.00 Platelet Estimate (ADEQUATE THOUSAND) 112-140 Immature Plt Fraction (0.9 - 11.2 %) 9.2 Plt Morphology Comment LARGE PLATELETS Microbiology Date/Time Procedure - Status Source Growth 10/03 0100 Giardia Antigen (ANA) - COMP STOOL Laboratory Tests 10/03 10/03 10/03 2103 1551 1139 Chemistry POC Glucose (70 - 110 MG/DL) 145 H 120 H 156 H Laboratory Tests 10/04 0538 Hematology WBC (4.5 - 11.0 x10 3/uL) 7.15 RBC (3.54 - 5.02 x10 6/uL) 2.71 L Hgb (11.0 - 15.0 g/dL) 8.0 L Hct (33.0 - 45.0 %) 24.7 L MCV (81.0 - 99.0 fL) 91.1 MCH (27.0 - 33.0 pg) 29.5 MCHC (33.0 - 37.0 g/dL) 32.4 L RDW (11.5 - 14.5 %) 13.3 Plt Count (150 - 400 x10 3/uL) 192 MPV (7.0 - 9.0 fL) 10.3 H Diagnosis, Assessment PlanFree Text A P:Patient seen and evaluated, discussed with care team, images and laboratories reviewed.History of dementiaHistory of rheumatoid arthritisHistory of frequent fallsHistory of frequent UTIsHistory of hypertension: Currently hypotensiveHypokalemia: We will supplementSevere hypomagnesemia we will supplementHypocalcemia: We will supplementHypoalbuminemiaSevere lactic acidosis: Etiology, could be related to septic shock, however source is unclear, rule out ischemic bowel, Zosyn, will need to review her medications if patient has been on metformin, lactic acidosis due to metformin in the setting of acute renal failure is a possibility and will do hemodialysis in the setting.Patient has been taking Metformin 1000 BID, kenneth has lactic acidosis that is induced by Metformin, discussed with deysi and ICC/Primary team will proceed with HD09/27/2019 mental status a lot better, hemodynamically more stable, pressors being weaned off, received 6 hours of hemodialysis yesterday, her last set of blood gas showed a pH of 7.40, PCO2 25, PO2 55, lactic acid 6.2 improving, sodium is 143 potassium 3.6 CO2 20 chloride 101 BUN 13 creatinine 1.1, hemoglobin this morning 9.7, white blood count 19.78 trending down, platelet 156, her clinical picture is consistent with metformin induced lactic acidosis, will do another session of hemodialysis, 4 hours, potassium 3.5, no ultrafiltration, will give 20 mmol of potassium phosphate and expectation of hypophosphatemia during hemodialysis. katie and evaluated during HD, discussed with RN and HD nurse09/28/2019 laboratories from this morning showed sodium 144, potassium 3.3 we will give KCl 20 mEq IV x1, chloride 104, bicarbonate 16, creatinine 1.2, lacticacid 1.2, hemoglobin 8.4, white blood count 15.2, blood culture still negative, anion gap today is 24 with a normal lactic acid etiology unclear will repeat BMP, repeat lactic acid and order serum acetone and do urinalysis to check for urine ketones, also will do a blood gas. Ketones came back as large, This is likley starvation ketoacidosis that has been exacerbated by gluconeogenesis inhibition by Metformin and has been reported in the literature, will start Glucose and insulin drip09/29/2019 laboratories from this morning showed sodium 142, potassium 2.7 we will give KCl 20 mEq IV x2, bicarbonate 32 with a chloride of 103 with disappearance of the anion gap correction of anion gap, will DC IV fluid with sodium bicarbonate, will DC insulin drip, changed to insulin sliding scale, start D10 at 30 cc/h since patient is noted nauseated, her chest x-ray showed pulmonary edema, will give IV Lasix 60 mg every 8 hours, give a dose of metolazone, her phosphorus 1.4, will give potassium phosphate 15 mmol IV x1, recheck lab in the afternoon, her lactic acid is 4 up some, not clear why is it elevated, we will recheck in the afternoon, her creatinine is 2.2, not sure whather baseline creatinine, her creatinine is relatively stable since yesterday, will monitor closely, hemoglobin is 7.8, white blood count 13.57 improving.09/30/2019 laboratories from this morning showed sodium 138, potassium 3.5, CO2 34, chloride 100, BUN and creatinine 22 and 2.4 up some likely related to diuretics, albumin 1.8, hemoglobin 7.8, platelet 60, white blood count 10.51 continues to trend down, lactic acid 1.2 within normal limit, urine output [id number] cc with Lasix. Chest x-ray still pending. Progressive thrombocytopenia with progressive decrease in hemoglobin, the latter could be related to fluid resuscitation, multiple blood draws and blood loss during dialysis procedure, however will check LDH, haptoglobin, PT/ PT. 10/01/2019 patient was transferred to the floor, PT PTT are within normal limit, LDH slightly elevated 276, liver function tests are within normal limit, haptoglobin pending, chest x-ray is better from yesterday. Sodium 138 today potassium 3.8, CO2 32, BUN and creatinine 25 and 2.6 trending up likely related to volume contraction. Will check post void resdiual10/03/2019 laboratories from this morning showed sodium 137, potassium 3.6, CO2 28, BUN and creatinine 30 and 3.0 continue to rise, blood pressures on the low side will try midodrine 5 mg p.o. 3 times daily, hypomagnesemia 1.7 we will givemagnesium sulfate 1 g IV x1, hemoglobin 8.1, white blood count 5.21, will check the results of postvoid residual. BNP 109 will increase IVF to 75 cc per 10/04/19 Hgb 8.4, WBC 109, Na 136, K 4.1, HCO3 23, BUN 31, Creat 3.0 stable sinceyesterday, continue IVF10/05/2019 laboratories from today showed hemoglobin 8, platelet 192, white bloodcount 7.15, sodium 138, potassium 3.3 we will give KCl 10 mEq IV x3 doses, CO2 28, BUN and creatinine 27 and 2.7 trending down, continue IV fluid. at 1306 RPT #:[id number] OF REPORTPRProgress [id number]:04:00G.[id number] for patient oiwxSQNNHPRSNZVZLG3021-91-55O10:06:[address] [facility] 2019-10-05 07:53:00 [id number]+NWhyzLr /JZQ3l/7aGNOy70I Zow8dx8XAbzf7imFtSevFrVkVM1702-32-15W56:53:00 [facility]ospital[facility] Progress NoteREPORT#:[id number] REPORT STATUS: SignedDATE:10/05/19 TIME: 075 PATIENT: MAC AGUSTIN UNIT #: [id number]#: [id number] [place] [facility] [place]DOB: [birth year] AGE: 74 SEX: F ATTEND: Joel Myers MDADM AUTHOR: Joel Myers MD * ALL edits or amendments must be made on the electronic/computer document * SubjectiveChief Complaint:follow up for NATHEN/CKD, HTN. no change. denies pain. eating some Review of SystemsAdditional notes:12 point ROS negative except for mentioned in HPI. Objective GeneralVS/I O:Vital Signs: Date Time Temp Pulse Resp B/P B/P Pulse O2 O2 Flow FiO2 Mean Ox Delivery Rate 10/04 0504 98.2 60 17 113/67 82.0 98 10/04 0207 Nasal 4.895662 cannula 10/04 0000 97.9 56 16 114/67 82.4 95 10/03 2105 98.6 56 16 112/69 83.7 98 10/03 1550 97.9 57 18 110/69 82.4 98 Room air 10/03 1142 97.5 55 18 110/63 78.8 97 Room air 10/03 1000 Nasal 4.015739 cannula 24 hour I O ending at 0700: 10/04 0700 10/03 1900 Intake Total 750.00 150 Output Total Balance 750.00 150 Intake, IV 650.00 Intake, Oral 100 120 Intake, Oral 30 Supplement Number 1 Bowel Movements Number 1 Incontinent Voids Number Voids 2 Patient 75.75 kg Weight Patient Weight Weight (lb): 167Weight (oz): 15.88Weight (kg): 75.75 Medications:Active Meds + DC'd Last 24 HrsMagnesium Sulfate/Dextrose 100 ML ONCE ONE IV (DC) Midodrine 5 MG 0900,1300,1700 PO Sodium Chloride 1,000 ML .[id number] IV Pantoprazole 40 MG BID@0600,1800 PO Megestrol Acetate 800 MG DAILY PO Zinc Oxide 1 APPLIC BID TOPICAL Lidocaine 1 EA Q24H TOPICAL Insulin Human Lispro 0 AC HS SUBQ Acetaminophen 650 MG Q4H PRN PRN PO Heparin Sodium 5,000 UNIT Q12HR SUBQ Physical ExamGeneral appearance: alert, awake, pleasantHead/Eyes: atraumatic, normocephalicENT: moist mucosal membranesNeck: non-tender, no JVD, no masses or swellingCardiovascular: normal heart sounds, regular rate rhythmRespiratory: decreased breath sounds, rhonchi, symmetric expansion, no distress,no rales appreciated on anterior examAbdomen: soft, no distention, no guarding, no reboundGenitourinary: no bladder distentionExtremities: edema (bLE +1), no clubbing, no cyanosisMusculoskeletal: normal inspectionNeuro/FAST FOOD ATTENDANT: no motor deficitsSkin: no rashLymphatics: neck normalPsychiatry: normal affect ResultsFindings/Data:Laboratory Tests 10/03 10/03 10/03 2103 1551 1139 Chemistry POC Glucose (70 - 110 MG/DL) 145 H 120 H 156 H Diagnosis, Assessment Plan Free Text DxA P NotesFree text DxA P notes:Severe lactic acidosisSevere metabolic acidosisAcute renal failureHypocalcemiaHypomagnesemia?Septic shock vs lactic acidosis from metforminDehydrationHypothermiaDMHTNDementia with behavior disturbancepersistent hypoglycemia Plan:Ms. Agustin is a 74 yo female with non-specific symptoms of not feeling well, poor appetite that was found to have abnormal labs at [facility], sent to ED for evaluation. In the ED, found to have severe lactic and metabolic acidosis. Discussed at length with ICU (Dr. Lin) and Renal (Dr Aguilar). Given her de leon imaging, urinalysis, CXR are unremarkable for this level of acidosis, perhaps this acidosis is secondary to metformin. Plan is to dialyize patient to look for improvement. If no improvement, perhaps this is ischemic bowel. Will continue empiric Zosyn. - Zosyn- blood cultures pending- hold home meds- Accuchecks and SSI- replace electrolytes- heparin for DVT prophylaxsis 09/26Improved lactic acidosis with dialysis. Given improvement, likely this was lactic acidosis secondary to metformin. WBC persistently elevated at 19, will continue broad spectrum abx for now - blood cultures negative - UA unremarkable - monitor CBC for downtrend - if WBC remains elevated with mention of possible neoplasm in stomach, would consider work up however, this patient has dementia with low quality of life, not a good candidate for work up/treatment.BS well controlled with current insulin scheduleCheck labs in am 09/27Lactate remains normal, continue to hold metforminPt noted return of anion gap acidosis with ketonuria. Discussed with Dr. Aguilar, nephrology. Pt placed on DKA protocol to close anion gap, on D10 for glucose needs while on insulin drip.BNP elevated with clear lungs, no dependent edema, decreased O2 requirement. Give one dose of Lasix 40 mg IV, check CXR in the am, monitor for volume overload while getting DKA fluids.WBC decreased to 15, continue abx for now, d/c after 5 daysSome blood noted in stool, CT with signs of chronic inflammation. Given her dementia, unsure that patient would tolerate bowel prep. GI consulted. Appreciate input on area in stomach with possible neoplasm. Check labs in am 09/28Anion gap closed, off insulin dripElevated lactate, monitorCXR shows severe vascular congestion and pleural fluid, likely related to fluidsgiven for lactic acidosis and metabolic acidosis, pt not in respiratory distress - Lasix 60 mg IV q8 iniated by nephrology - D10 at 30 cc/hr to maintain blood sugarWBC decreased to 13, d/c abx after 5 daysColon with chronic inflammation, no work up per GIWill need EGD to evaluate abnormality in gastric wall once improvedCheck labs in am 09/29Off insulin dripCXR reviewedCont lasixWBC count came down to 10.5On zosynTransfer to the floordw RN, TRUCK DRIVER TEAMSTER, consultantsCXR and telemetry personally reviewedFurther recs per clinical course 10/01/2019 - blood sugars stable on D10W. will switch to D5W - consider endo eval if persistently hypoglycemic - monitor renal function closely - off antibiotics - await stool samples. no diarrhea overnight - PT/OT - start mobilizing. rehab eval - on IV PPI. ? switch to po - will defer to GI - ? need for EGD 10/02/2019 - Back on Heparin SQ - Megace started. - switched to po PPI. - Blood sugars up. will d/c IV fluids at this time and monitor blood sugars closely - observe off antibiotics - mobilize - likely back to SNF in the next 1-2 days 10/03/2019 - will restart IV fluids due to worsening renal function - clinically dry. not taking in any signficant food or liquids - follow creatinine closelly - continue Megace - anticipate back to SNF once renal function more stable - Heparin for VTE 10/04/2019 - follow renal function - on IVF. renal increased rate - watch for volume overload - off antibiotics - continue Megace - on Heparin 10/05/2019 - follow creatinine. continue IVF for now - Heparing for VTE - renal following - d/w patient's nurse. - calorie countingtotal time spent with evaluating patient/data as well as providing education/counselling to patient was more than 35 minutes at 0806 RPT #:[id number] OF REPORTPRProgress Spsm1995-02-51K00:53:00G.[id number] for patient ogkrKEFOCSHGZDYHKQ5429-38-10R08:06:49 [facility] 2019-10-04 13:20:00 [id number]/LjhrB+6nhNt31G 2lpfe5t/m4vHIgaG0 67wbLZU/mpr1JAFy/ffcGimHeS4388-40-92H97:20:00 [facility] Progress NoteREPORT#:[id number] REPORT STATUS: SignedDATE:10/04/19 TIME: 1320 PATIENT: MAC AGUSTIN UNIT #: [id number]#: [id number] [address] [birth year] AGE: 74 SEX: F ATTEND: Joel Myers AUTHOR: Arian Anderson * ALL edits or amendments must be made on the electronic/computer document * SubjectiveChief Complaint:weakHPI:No new complaints. Eating some. Review of SystemsUnable to obtain due to:Dementia Objective GeneralVS/I O:Last Documented: Result Date Time Pulse Ox 97 10/03 1142 B/P 110/63 10/03 1142 B/P Mean 78.8 10/03 1142 O2 Delivery Room air 10/03 1142 Temp 36.4 10/03 1142 Pulse 55 10/03 1142 Resp 18 10/03 1142 O2 Flow Rate 4.293789 10/02 2014 24 hour I O ending at 0700: 10/03 0700 10/02 1900 Intake Total 30 75 Output Total Balance 30 75 Intake, Oral 30 Intake, Oral 0 75 Supplement Number 5 Incontinent Voids Patient Weight Weight (lb): 167Weight (oz): 15.88Weight (kg): 75.75 Medications:Active Meds + DC'd Last 24 HrsMagnesium Sulfate/Dextrose 100 ML ONCE ONE IV (DC) Midodrine 5 MG 0900,1300,1700 PO Sodium Chloride 1,000 ML .[id number] IV Pantoprazole 40 MG BID@0600,1800 PO Megestrol Acetate 800 MG DAILY PO Zinc Oxide 1 APPLIC BID TOPICAL Lidocaine 1 EA Q24H TOPICAL Insulin Human Lispro 0 AC HS SUBQ Morphine Sulfate 2 MG Q4H PRN PRN IV (DC) Acetaminophen 650 MG Q4H PRN PRN PO Heparin Sodium 5,000 UNIT Q12HR SUBQ Physical ExamGeneral appearance: awake, no acute distressHEENT: moist mucosal membranesCardiovascular: normal S1/X2Hdrxidyfgiy: clear to auscultationAbdomen: non-tender, normal bowel sounds, soft, no distentionExtremities: edemaMusculoskeletal: normal inspectionSkin: dry ResultsFindings/Data:Laboratory Tests 10/04/19 0505:[Embedded Image Not Available]Laboratory Tests 10/03 10/03 10/03 10/02 10/02 1139 0721 0505 1912 1557 Chemistry Sodium (134 - 147 mEq/L) 136 Potassium (3.4 - 5.0 mEq/L) 4.1 Chloride (100 - 108 mEq/L) 102 Carbon Dioxide (21 - 33 mEq/L) 23 Anion Gap (0 - 20) 15 BUN (7 - 18 mg/dL) 31 H Creatinine (0.6 - 1.3 mg/dL) 3.0 H Glomerular Filtr Rate (70 - 80) 15.3 L Glucose (70 - 110 mg/dL) 117 H POC Glucose (70 - 110 MG/DL) 156 H 121 H 123 H 123 H Calcium (8.0 - 10.5 mg/dL) 8.1 Phosphorus (2.5 - 4.9 MG/DL) 3.3 Magnesium (1.8 - 2.4 mg/dL) 1.70 L Laboratory Tests 10/03 0505 Hematology WBC (4.5 - 11.0 x10 3/uL) 5.64 RBC (3.54 - 5.02 x10 6/uL) 2.78 L Hgb (11.0 - 15.0 g/dL) 8.4 L Hct (33.0 - 45.0 %) 26.3 L MCV (81.0 - 99.0 fL) 94.6 MCH (27.0 - 33.0 pg) 30.2 MCHC (33.0 - 37.0 g/dL) 31.9 L RDW (11.5 - 14.5 %) 13.7 Plt Count (150 - 400 x10 3/uL) 109 L MPV (7.0 - 9.0 fL) 11.7 H Neut % (Auto) (56.0 - 77.0 %) 48.4 L Lymph % (Auto) (14.0 - 32.0 %) 29.3 [place] % (Auto) (4.8 - 9.0 %) 19.0 H Eos % (Auto) (0.3 - 3.7 %) 1.8 Baso % (Auto) (0.0 - 2.0 %) 0.4 Neut # (Auto) (2.0 - 7.6 x10 3/uL) 2.74 Lymph # (Auto) (1.0 - 3.8 x10 3/uL) 1.65 [place] # (Auto) (0.1 - 0.8 x10 3/uL) 1.07 H Eos # (Auto) (0.0 - 0.2 x10 3/uL) 0.10 Baso # (Auto) (0.0 - 0.2 x10 3/uL) 0.02 Abs Immat Gran (auto) (0.00 - 0.03 x10 3/uL) 0.06 H Add Manual Diff NO Immature Gran % (0.0 - 2.0 %) 1.1 Nucleated RBC % (0 - 0 %) 0.0 Nucleated RBCs # (Man) (0.0 - 0.1 x10 3/uL) 0.00 Platelet Estimate (ADEQUATE THOUSAND) 112-140 Immature Plt Fraction (0.9 - 11.2 %) 9.2 Plt Morphology Comment LARGE PLATELETS Microbiology Date/Time Procedure - Status Source Growth 10/03 0100 Giardia Antigen (ANA) - COMP STOOL Results: labs reviewed, vital signs stable Diagnosis, Assessment PlanProblem List/A P: 1. Antibiotic-associated diarrhea Free Text A P:IMPRESSION: A 74-year-old female with a host of comorbidities, especiallyadvanced dementia, presented with failure to thrive kind of situation, labs weresignificantly abnormal with electrolyte disbalance, acute renal failure,metabolic acidosis and underlying sepsis from urinary tract infection. UTI isbeing treated with IV antibiotic. She is responding. The CT finding of colonicwall thickening as well as gastric distention with gastric wall thickening is anincidental finding. PLAN:1. Colonic wall thickening is not concerning. This diffuse colonic wall edemacould be due to underlying sepsis and hypoalbuminemia. This does not warrantany further investigation at this time. It seems to be self-limiting.2. Gastric distention, gastric wall thickening certainly needs furtherevaluation with direct visualization. Therefore, upper endoscopy should beconsidered when the patient is medically stable and has recovered well from hercurrent acute illness. 10/04/19- C diff ordered and pending collection. Diarrhea resolved. - Broaden stool studies. Pending collection.- PPI PO- Continue Megace - Supportive care- Outpatient EGD and colonoscopy given current COVID restrictions and no evidence of active bleeding- Consider NGT versus IR placed g-tube if PO intake does not improve and family is agreeable.- Discharge per primary at 1321 RPT #:[id number] OF REPORTPRProgress Pege0293-97-83A43:20:00G.[id number] for patient lyzbVWVOQYJMVTTKHL9194-59-37R55:22:[address] [facility] 2019-10-04 13:20:00 [id number] E1KxqRj1GLV/ZK4qP flI9x0CEGfPyX7b1D11fUx8Udy1390-38-29M91:20:00 [facility] ([facility])Gastroenterology Progress NoteREPORT#:[id number] REPORT STATUS: SignedDATE:10/04/19 TIME: 1320 PATIENT: MAC AGUSTIN UNIT #: [id number]#: [id number] ROOM/BED: 5526-1DOB: [birth year] AGE: 74 SEX: F ATTEND: Joel Myers [facility] AUTHOR: Arian Anderson * ALL edits or amendments must be made on the electronic/computer document * Arian Anderson 10/04/19 1320:SubjectiveChief Complaint:weakHPI:No new complaints. Eating some. Review of SystemsUnable to obtain due to:Dementia Objective GeneralVS/I O:Last Documented: Result Date Time Pulse Ox 97 10/03 1142 B/P 110/63 10/03 1142 B/P Mean 78.8 10/03 1142 O2 Delivery Room air 10/03 1142 Temp 36.4 10/03 1142 Pulse 55 10/03 1142 Resp 18 10/03 1142 O2 Flow Rate 4.691858 10/02 2014 24 hour I O ending at 0700: 10/03 0700 10/02 1900 Intake Total 30 75 Output Total Balance 30 75 Intake, Oral 30 Intake, Oral 0 75 Supplement Number 5 Incontinent Voids Patient Weight Weight (lb): 167Weight (oz): 15.88Weight (kg): 75.75 Medications:Active Meds + DC'd Last 24 HrsMagnesium Sulfate/Dextrose 100 ML ONCE ONE IV (DC) Midodrine 5 MG 0900,1300,1700 PO Sodium Chloride 1,000 ML .[id number] IV Pantoprazole 40 MG BID@0600,1800 PO Megestrol Acetate 800 MG DAILY PO Zinc Oxide 1 APPLIC BID TOPICAL Lidocaine 1 EA Q24H TOPICAL Insulin Human Lispro 0 AC HS SUBQ Morphine Sulfate 2 MG Q4H PRN PRN IV (DC) Acetaminophen 650 MG Q4H PRN PRN PO Heparin Sodium 5,000 UNIT Q12HR SUBQ Physical ExamGeneral appearance: awake, no acute distressHEENT: moist mucosal membranesCardiovascular: normal S1/J7Ktxzfgzccgw: clear to auscultationAbdomen: non-tender, normal bowel sounds, soft, no distentionExtremities: edemaMusculoskeletal: normal inspectionSkin: dry ResultsFindings/Data:Laboratory Tests 10/04/19 0505:[Embedded Image Not Available]Laboratory Tests 10/03 10/03 10/03 10/02 10/02 1139 0721 0505 1912 1557 Chemistry Sodium (134 - 147 mEq/L) 136 Potassium (3.4 - 5.0 mEq/L) 4.1 Chloride (100 - 108 mEq/L) 102 Carbon Dioxide (21 - 33 mEq/L) 23 Anion Gap (0 - 20) 15 BUN (7 - 18 mg/dL) 31 H Creatinine (0.6 - 1.3 mg/dL) 3.0 H Glomerular Filtr Rate (70 - 80) 15.3 L Glucose (70 - 110 mg/dL) 117 H POC Glucose (70 - 110 MG/DL) 156 H 121 H 123 H 123 H Calcium (8.0 - 10.5 mg/dL) 8.1 Phosphorus (2.5 - 4.9 MG/DL) 3.3 Magnesium (1.8 - 2.4 mg/dL) 1.70 L Laboratory Tests 10/03 0505 Hematology WBC (4.5 - 11.0 x10 3/uL) 5.64 RBC (3.54 - 5.02 x10 6/uL) 2.78 L Hgb (11.0 - 15.0 g/dL) 8.4 L Hct (33.0 - 45.0 %) 26.3 L MCV (81.0 - 99.0 fL) 94.6 MCH (27.0 - 33.0 pg) 30.2 MCHC (33.0 - 37.0 g/dL) 31.9 L RDW (11.5 - 14.5 %) 13.7 Plt Count (150 - 400 x10 3/uL) 109 L MPV (7.0 - 9.0 fL) 11.7 H Neut % (Auto) (56.0 - 77.0 %) 48.4 L Lymph % (Auto) (14.0 - 32.0 %) 29.3 [place] % (Auto) (4.8 - 9.0 %) 19.0 H Eos % (Auto) (0.3 - 3.7 %) 1.8 Baso % (Auto) (0.0 - 2.0 %) 0.4 Neut # (Auto) (2.0 - 7.6 x10 3/uL) 2.74 Lymph # (Auto) (1.0 - 3.8 x10 3/uL) 1.65 [place] # (Auto) (0.1 - 0.8 x10 3/uL) 1.07 H Eos # (Auto) (0.0 - 0.2 x10 3/uL) 0.10 Baso # (Auto) (0.0 - 0.2 x10 3/uL) 0.02 Abs Immat Gran (auto) (0.00 - 0.03 x10 3/uL) 0.06 H Add Manual Diff NO Immature Gran % (0.0 - 2.0 %) 1.1 Nucleated RBC % (0 - 0 %) 0.0 Nucleated RBCs # (Man) (0.0 - 0.1 x10 3/uL) 0.00 Platelet Estimate (ADEQUATE THOUSAND) 112-140 Immature Plt Fraction (0.9 - 11.2 %) 9.2 Plt Morphology Comment LARGE PLATELETS Microbiology Date/Time Procedure - Status Source Growth 10/03 0100 Giardia Antigen (ANA) - COMP STOOL Results: labs reviewed, vital signs stable Diagnosis, Assessment PlanProblem List/A P: 1. Antibiotic-associated diarrhea Free Text A P:IMPRESSION: A 74-year-old female with a host of comorbidities, especiallyadvanced dementia, presented with failure to thrive kind of situation, labs weresignificantly abnormal with electrolyte disbalance, acute renal failure,metabolic acidosis and underlying sepsis from urinary tract infection. UTI isbeing treated with IV antibiotic. She is responding. The CT finding of colonicwall thickening as well as gastric distention with gastric wall thickening is anincidental finding. PLAN:1. Colonic wall thickening is not concerning. This diffuse colonic wall edemacould be due to underlying sepsis and hypoalbuminemia. This does not warrantany further investigation at this time. It seems to be self-limiting.2. Gastric distention, gastric wall thickening certainly needs furtherevaluation with direct visualization. Therefore, upper endoscopy should beconsidered when the patient is medically stable and has recovered well from hercurrent acute illness. 10/04/19- C diff ordered and pending collection. Diarrhea resolved. - Broaden stool studies. Pending collection.- PPI PO- Continue Megace - Supportive care- Outpatient EGD and colonoscopy given current COVID restrictions and no evidence of active bleeding- Consider NGT versus IR placed g-tube if PO intake does not improve and family is agreeable.- Discharge per primary Coleman Sr V. 11/07/19 0901:Attestations Physician AttestationAgree w/findings plan:Patient seen and examined. 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 at 1321 RPT #:[id number] OF REPORTPRProgress [id number]:20:00G.[id number] for patient kiukKBYEFFDUKQFSQL2921-73-29R66:01:[address] [facility] 2019-10-04 13:20:00 [id number] naWaOelrFncr3f0j8 CqgzBvOv2p/L8ejDOBBTsSMAdZ9123-74-06S17:20:00 [facility] ([facility])Gastroenterology Progress NoteREPORT#:[id number] REPORT STATUS: SignedDATE:10/04/19 TIME: 1320 PATIENT: MAC AGUSTIN UNIT #: [id number]#: [id number] [address] [birth year] AGE: 74 SEX: F ATTEND: Joel Myers [facility] AUTHOR: Arian Anderson * ALL edits or amendments must be made on the electronic/computer document * Arian Anderson 10/04/19 1320:SubjectiveChief Complaint:weakHPI:No new complaints. Eating some. Review of SystemsUnable to obtain due to:Dementia Objective GeneralVS/I O:Last Documented: Result Date Time Pulse Ox 97 10/03 1142 B/P 110/63 10/03 1142 B/P Mean 78.8 10/03 1142 O2 Delivery Room air 10/03 1142 Temp 36.4 10/03 1142 Pulse 55 10/03 1142 Resp 18 10/03 1142 O2 Flow Rate 4.200693 10/02 2014 24 hour I O ending at 0700: 10/03 0700 10/02 1900 Intake Total 30 75 Output Total Balance 30 75 Intake, Oral 30 Intake, Oral 0 75 Supplement Number 5 Incontinent Voids Patient Weight Weight (lb): 167Weight (oz): 15.88Weight (kg): 75.75 Medications:Active Meds + DC'd Last 24 HrsMagnesium Sulfate/Dextrose 100 ML ONCE ONE IV (DC) Midodrine 5 MG 0900,1300,1700 PO Sodium Chloride 1,000 ML .[id number] IV Pantoprazole 40 MG BID@0600,1800 PO Megestrol Acetate 800 MG DAILY PO Zinc Oxide 1 APPLIC BID TOPICAL Lidocaine 1 EA Q24H TOPICAL Insulin Human Lispro 0 AC HS SUBQ Morphine Sulfate 2 MG Q4H PRN PRN IV (DC) Acetaminophen 650 MG Q4H PRN PRN PO Heparin Sodium 5,000 UNIT Q12HR SUBQ Physical ExamGeneral appearance: awake, no acute distressHEENT: moist mucosal membranesCardiovascular: normal S1/X4Xdvmvfjcmlt: clear to auscultationAbdomen: non-tender, normal bowel sounds, soft, no distentionExtremities: edemaMusculoskeletal: normal inspectionSkin: dry ResultsFindings/Data:Laboratory Tests 10/04/19 0505:[Embedded Image Not Available]Laboratory Tests 10/03 10/03 10/03 10/02 10/02 1139 0721 0505 1912 1557 Chemistry Sodium (134 - 147 mEq/L) 136 Potassium (3.4 - 5.0 mEq/L) 4.1 Chloride (100 - 108 mEq/L) 102 Carbon Dioxide (21 - 33 mEq/L) 23 Anion Gap (0 - 20) 15 BUN (7 - 18 mg/dL) 31 H Creatinine (0.6 - 1.3 mg/dL) 3.0 H Glomerular Filtr Rate (70 - 80) 15.3 L Glucose (70 - 110 mg/dL) 117 H POC Glucose (70 - 110 MG/DL) 156 H 121 H 123 H 123 H Calcium (8.0 - 10.5 mg/dL) 8.1 Phosphorus (2.5 - 4.9 MG/DL) 3.3 Magnesium (1.8 - 2.4 mg/dL) 1.70 L Laboratory Tests 10/03 0505 Hematology WBC (4.5 - 11.0 x10 3/uL) 5.64 RBC (3.54 - 5.02 x10 6/uL) 2.78 L Hgb (11.0 - 15.0 g/dL) 8.4 L Hct (33.0 - 45.0 %) 26.3 L MCV (81.0 - 99.0 fL) 94.6 MCH (27.0 - 33.0 pg) 30.2 MCHC (33.0 - 37.0 g/dL) 31.9 L RDW (11.5 - 14.5 %) 13.7 Plt Count (150 - 400 x10 3/uL) 109 L MPV (7.0 - 9.0 fL) 11.7 H Neut % (Auto) (56.0 - 77.0 %) 48.4 L Lymph % (Auto) (14.0 - 32.0 %) 29.3 [place] % (Auto) (4.8 - 9.0 %) 19.0 H Eos % (Auto) (0.3 - 3.7 %) 1.8 Baso % (Auto) (0.0 - 2.0 %) 0.4 Neut # (Auto) (2.0 - 7.6 x10 3/uL) 2.74 Lymph # (Auto) (1.0 - 3.8 x10 3/uL) 1.65 [place] # (Auto) (0.1 - 0.8 x10 3/uL) 1.07 H Eos # (Auto) (0.0 - 0.2 x10 3/uL) 0.10 Baso # (Auto) (0.0 - 0.2 x10 3/uL) 0.02 Abs Immat Gran (auto) (0.00 - 0.03 x10 3/uL) 0.06 H Add Manual Diff NO Immature Gran % (0.0 - 2.0 %) 1.1 Nucleated RBC % (0 - 0 %) 0.0 Nucleated RBCs # (Man) (0.0 - 0.1 x10 3/uL) 0.00 Platelet Estimate (ADEQUATE THOUSAND) 112-140 Immature Plt Fraction (0.9 - 11.2 %) 9.2 Plt Morphology Comment LARGE PLATELETS Microbiology Date/Time Procedure - Status Source Growth 04/24 0100 Giardia Antigen (ANA) - COMP STOOL Results: labs reviewed, vital signs stable Diagnosis, Assessment PlanProblem List/A P: 1. Antibiotic-associated diarrhea Free Text A P:IMPRESSION: A 74-year-old female with a host of comorbidities, especiallyadvanced dementia, presented with failure to thrive kind of situation, labs weresignificantly abnormal with electrolyte disbalance, acute renal failure,metabolic acidosis and underlying sepsis from urinary tract infection. UTI isbeing treated with IV antibiotic. She is responding. The CT finding of colonicwall thickening as well as gastric distention with gastric wall thickening is anincidental finding. PLAN:1. Colonic wall thickening is not concerning. This diffuse colonic wall edemacould be due to underlying sepsis and hypoalbuminemia. This does not warrantany further investigation at this time. It seems to be self-limiting.2. Gastric distention, gastric wall thickening certainly needs furtherevaluation with direct visualization. Therefore, upper endoscopy should beconsidered when the patient is medically stable and has recovered well from hercurrent acute illness. 10/04/19- C diff ordered and pending collection. Diarrhea resolved. - Broaden stool studies. Pending collection.- PPI PO- Continue Megace - Supportive care- Outpatient EGD and colonoscopy given current COVID restrictions and no evidence of active bleeding- Consider NGT versus IR placed g-tube if PO intake does not improve and family is agreeable.- Discharge per primary Coleman Sr V. 11/07/19 0901:Attestations Physician AttestationAgree w/findings plan:Patient seen and examined. 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 at 1321 at 0914 RPT #:[id number] OF REPORTPRProgress [id number]:20:00G.[id number] for patient pkmdSPABCPEFIVMQDX4170-08-78O98:14:54 [facility] 2019-10-04 08:17:00 [id number] [facility]pyiiZi[facility]U 4YH/7VaTPSFhliw3Dj2RazJUQ43999-57-66P62:17:00 [facility] ([facility]ENTERHospitalist Progress NoteREPORT#:[id number] REPORT STATUS: SignedDATE:10/04/19 TIME: 08 PATIENT: MAC AGUSTIN UNIT #: [id number]#: [id number] [address] [birth year] AGE: 74 SEX: F ATTEND: Joel Myers AUTHOR: Joel Myers MD * ALL edits or amendments must be made on the electronic/computer document * SubjectiveChief Complaint:follow up for NATHEN/CKD, HTN. no change. denies pain. eating some Review of SystemsAdditional notes:12 point ROS negative except for mentioned in HPI. Objective GeneralVS/I O:Vital Signs: Date Time Temp Pulse Resp B/P B/P Pulse O2 O2 Flow FiO2 Mean Ox Delivery Rate 10/03 722 97.7 58 18 102/68 79.0 100 Room air 10/03 0401 97.7 55 17 101/68 79.0 100 10/02 2259 97.5 58 18 114/76 88.3 100 10/02 2015 Nasal 4.263064 cannula 10/02 1913 97.3 57 18 117/71 86.5 100 10/02 1101 98.2 65 17 106/68 81.0 99 24 hour I O ending at 0700: 10/03 0700 10/02 1900 Intake Total 30 75 Output Total Balance 30 75 Intake, Oral 30 Intake, Oral 0 75 Supplement Number 5 Incontinent Voids Patient Weight Weight (lb): 167Weight (oz): 15.88Weight (kg): 75.75 Medications:Active Meds + DC'd Last 24 HrsMidodrine 5 MG 0900,1300,1700 PO Sodium Chloride 1,000 ML .[id number] IV Magnesium Sulfate/Dextrose 100 ML ONCE ONE IV (DC) Magnesium Sulfate/Dextrose 100 ML ONCE ONE IV (DC) Pantoprazole 40 MG BID@0600,1800 PO Megestrol Acetate 800 MG DAILY PO Zinc Oxide 1 APPLIC BID TOPICAL Lidocaine 1 EA Q24H TOPICAL Insulin Human Lispro 0 AC HS SUBQ Morphine Sulfate 2 MG Q4H PRN PRN IV (DC) Acetaminophen 650 MG Q4H PRN PRN PO Heparin Sodium 5,000 UNIT Q12HR SUBQ Physical ExamGeneral appearance: confused, alert, awakeHead/Eyes: atraumatic, normocephalicENT: moist mucosal membranesNeck: non-tender, no JVD, no masses or swellingCardiovascular: normal heart sounds, regular rate rhythmRespiratory: decreased breath sounds, rhonchi, symmetric expansion, no distress,no rales appreciated on anterior examAbdomen: soft, no distention, no guarding, no reboundGenitourinary: no bladder distentionExtremities: edema (bLE +1), no clubbing, no cyanosisMusculoskeletal: normal inspectionNeuro/FAST FOOD ATTENDANT: no motor deficitsSkin: no rashPsychiatry: normal affect ResultsFindings/Data:Laboratory Tests 10/03 10/02 10/02 10/02 10/02 0721 1912 1557 1057 0826 Chemistry POC Glucose (70 - 110 MG/DL) 121 H 123 H 123 H 142 H 105 Laboratory Tests 10/03 0505 Hematology WBC (4.5 - 11.0 x10 3/uL) 5.64 RBC (3.54 - 5.02 x10 6/uL) 2.78 L Hgb (11.0 - 15.0 g/dL) 8.4 L Hct (33.0 - 45.0 %) 26.3 L MCV (81.0 - 99.0 fL) 94.6 MCH (27.0 - 33.0 pg) 30.2 MCHC (33.0 - 37.0 g/dL) 31.9 L RDW (11.5 - 14.5 %) 13.7 Plt Count (150 - 400 x10 3/uL) 109 L MPV (7.0 - 9.0 fL) 11.7 H Neut % (Auto) (56.0 - 77.0 %) 48.4 L Lymph % (Auto) (14.0 - 32.0 %) 29.3 [place] % (Auto) (4.8 - 9.0 %) 19.0 H Eos % (Auto) (0.3 - 3.7 %) 1.8 Baso % (Auto) (0.0 - 2.0 %) 0.4 Neut # (Auto) (2.0 - 7.6 x10 3/uL) 2.74 Lymph # (Auto) (1.0 - 3.8 x10 3/uL) 1.65 [place] # (Auto) (0.1 - 0.8 x10 3/uL) 1.07 H Eos # (Auto) (0.0 - 0.2 x10 3/uL) 0.10 Baso # (Auto) (0.0 - 0.2 x10 3/uL) 0.02 Abs Immat Gran (auto) (0.00 - 0.03 x10 3/uL) 0.06 H Add Manual Diff NO Immature Gran % (0.0 - 2.0 %) 1.1 Nucleated RBC % (0 - 0 %) 0.0 Nucleated RBCs # (Man) (0.0 - 0.1 x10 3/uL) 0.00 Immature Plt Fraction (0.9 - 11.2 %) 9.2 Microbiology Date/Time Procedure - Status Source Growth 10/03 0100 Giardia Antigen (ANA) - COMP STOOL Diagnosis, Assessment Plan Free Text DxA P NotesFree text DxA P notes:Severe lactic acidosisSevere metabolic acidosisAcute renal failureHypocalcemiaHypomagnesemia?Septic shock vs lactic acidosis from metforminDehydrationHypothermiaDMHTNDementia with behavior disturbancepersistent hypoglycemia Plan:Ms. Agustin is a 74 yo female with non-specific symptoms of not feeling well, poor appetite that was found to have abnormal labs at [facility], sent to ED for evaluation. In the ED, found to have severe lactic and metabolic acidosis. Discussed at length with ICU (Dr. Lin) and Renal (Dr Aguilar). Given her de leon imaging, urinalysis, CXR are unremarkable for this level of acidosis, perhaps this acidosis is secondary to metformin. Plan is to dialyize patient to look for improvement. If no improvement, perhaps this is ischemic bowel. Will continue empiric Zosyn. - Zosyn- blood cultures pending- hold home meds- Accuchecks and SSI- replace electrolytes- heparin for DVT prophylaxsis 09/26Improved lactic acidosis with dialysis. Given improvement, likely this was lactic acidosis secondary to metformin. WBC persistently elevated at 19, will continue broad spectrum abx for now - blood cultures negative - UA unremarkable - monitor CBC for downtrend - if WBC remains elevated with mention of possible neoplasm in stomach, would consider work up however, this patient has dementia with low quality of life, not a good candidate for work up/treatment.BS well controlled with current insulin scheduleCheck labs in am 09/27Lactate remains normal, continue to hold metforminPt noted return of anion gap acidosis with ketonuria. Discussed with Dr. Aguilar, nephrology. Pt placed on DKA protocol to close anion gap, on D10 for glucose needs while on insulin drip.BNP elevated with clear lungs, no dependent edema, decreased O2 requirement. Give one dose of Lasix 40 mg IV, check CXR in the am, monitor for volume overload while getting DKA fluids.WBC decreased to 15, continue abx for now, d/c after 5 daysSome blood noted in stool, CT with signs of chronic inflammation. Given her dementia, unsure that patient would tolerate bowel prep. GI consulted. Appreciate input on area in stomach with possible neoplasm. Check labs in am 09/28Anion gap closed, off insulin dripElevated lactate, monitorCXR shows severe vascular congestion and pleural fluid, likely related to fluidsgiven for lactic acidosis and metabolic acidosis, pt not in respiratory distress - Lasix 60 mg IV q8 iniated by nephrology - D10 at 30 cc/hr to maintain blood sugarWBC decreased to 13, d/c abx after 5 daysColon with chronic inflammation, no work up per GIWill need EGD to evaluate abnormality in gastric wall once improvedCheck labs in am 09/29Off insulin dripCXR reviewedCont lasixWBC count came down to 10.5On zosynTransfer to the floordw RN, TRUCK DRIVER TEAMSTER, consultantsCXR and telemetry personally reviewedFurther recs per clinical course 10/01/2019 - blood sugars stable on D10W. will switch to D5W - consider endo eval if persistently hypoglycemic - monitor renal function closely - off antibiotics - await stool samples. no diarrhea overnight - PT/OT - start mobilizing. rehab eval - on IV PPI. ? switch to po - will defer to GI - ? need for EGD 10/02/2019 - Back on Heparin SQ - Megace started. - switched to po PPI. - Blood sugars up. will d/c IV fluids at this time and monitor blood sugars closely - observe off antibiotics - mobilize - likely back to SNF in the next 1-2 days 10/03/2019 - will restart IV fluids due to worsening renal function - clinically dry. not taking in any signficant food or liquids - follow creatinine closelly - continue Megace - anticipate back to SNF once renal function more stable - Heparin for VTE 10/04/2019 - follow renal function - on IVF. renal increased rate - watch for volume overload - off antibiotics - continue Megace - on Heparintotal time spent with evaluating patient/data as well as providing education/counselling to patient was more than 35 minutes at [address] [facility] #:[id number] OF REPORTPRProgress Xeip2217-03-44H69:17:00G.[id number] for patient wwmgBDDUZRBOCYPRDF6735-18-85I09:53:[address] [facility] 2019-10-04 06:42:00 [id number] I8GnIHrlONWT55kyB 0cYDyNdWqUtxWMUbJH4KGgh1xR9654-60-88W21:42:00 [facility] ([facility])Nephrology Progress NoteREPORT#:[id number] REPORT STATUS: SignedDATE:10/04/19 TIME: 0642 PATIENT: MAC AGUSTIN UNIT #: [id number]#: [id number] [address] [birth year] AGE: 74 SEX: F ATTEND: Joel Myers [facility] AUTHOR: Rabia Aguilar MD * ALL edits or amendments must be made on the electronic/computer document * SubjectiveChief Complaint:AMS/Lactic acidosis/AKIUnable to obtain: dementiaComments:Patient seen and evaluated, HPI no change from initial, having diarrhea per nurse Review of SystemsUnable to obtain due to:Dementia Objective GeneralVS/I O:Vital Signs: Date Time Temp Pulse Resp B/P B/P Pulse O2 O2 Flow FiO2 Mean Ox Delivery Rate 10/03 0401 36.5 55 17 101/68 79.0 100 10/029 36.4 58 18 114/76 88.3 100 10/02 2014 Nasal 4.468903 cannula 10/02 1912 36.3 57 18 117/71 86.5 100 10/02 1101 36.8 65 17 106/68 81.0 99 10/02 0735 Nasal 4.650940 cannula 24 hour I O ending at 0700: 10/03 0700 10/02 1900 Intake Total 30 75 Output Total Balance 30 75 Intake, Oral 30 Intake, Oral 0 75 Supplement Number 5 Incontinent Voids MedicationsActive Meds + DC'd Last 24 HrsMidodrine 5 MG 0900,1300,1700 PO Sodium Chloride 1,000 ML .[id number] IV Magnesium Sulfate/Dextrose 100 ML ONCE ONE IV (DC) Magnesium Sulfate/Dextrose 100 ML ONCE ONE IV (DC) Pantoprazole 40 MG BID@0600,1800 PO Megestrol Acetate 800 MG DAILY PO Zinc Oxide 1 APPLIC BID TOPICAL Lidocaine 1 EA Q24H TOPICAL Insulin Human Lispro 0 AC HS SUBQ Morphine Sulfate 2 MG Q4H PRN PRN IV (DC) Acetaminophen 650 MG Q4H PRN PRN PO Heparin Sodium 5,000 UNIT Q12HR SUBQ Physical ExamGeneral appearance: alert, no acute distressHead/eyes: atraumatic, normocephalicENT: normal noseNeck: supple/no meningismusCardiovascular: normal heart sounds, no rubRespiratory: aerating well, symmetric expansionAbdomen: softGenitourinary: no foleyExtremities: no edemaMusculoskeletal: normal inspectionNeuro/FAST FOOD ATTENDANT: altered mental statusSkin: dry ResultsFindings/Data:Laboratory Tests 10/02 10/02 10/02 10/02 10/02 191 1557 1057 0826 0520 Chemistry POC Glucose (70 - 110 MG/DL) 123 H 123 H 142 H 105 B-Natriuretic Peptide (0 - 100 PG/ML) 109.1 H 10/02 10/01 10/01 10/01 10/01 0520 1949 1558 1120 0740 Chemistry Sodium (134 - 147 mEq/L) 137 Potassium (3.4 - 5.0 mEq/L) 3.6 Chloride (100 - 108 mEq/L) 100 Carbon Dioxide (21 - 33 mEq/L) 28 Anion Gap (0 - 20) 13 BUN (7 - 18 mg/dL) 30 H Creatinine (0.6 - 1.3 mg/dL) 3.0 H Glomerular Filtr Rate (70 - 80) 15.3 L Glucose (70 - 110 mg/dL) 101 POC Glucose (70 - 110 MG/DL) 99 80 151 H 111 H Calcium (8.0 - 10.5 mg/dL) 8.4 Phosphorus (2.5 - 4.9 MG/DL) 2.8 Magnesium (1.8 - 2.4 mg/dL) 1.70 L 10/01 09/30 09/30 09/30 09/30 0618 1917 1617 1145 0752 Chemistry Sodium (134 - 147 mEq/L) 137 Potassium (3.4 - 5.0 mEq/L) 3.3 L Chloride (100 - 108 mEq/L) 99 L Carbon Dioxide (21 - 33 mEq/L) 30 Anion Gap (0 - 20) 11 BUN (7 - 18 mg/dL) 26 H Creatinine (0.6 - 1.3 mg/dL) 2.8 H Glomerular Filtr Rate (70 - 80) 16.6 L Glucose (70 - 110 mg/dL) 114 H POC Glucose (70 - 110 MG/DL) 218 H 260 H 178 H 178 H Calcium (8.0 - 10.5 mg/dL) 7.9 L Phosphorus (2.5 - 4.9 MG/DL) 2.6 Magnesium (1.8 - 2.4 mg/dL) 1.70 L Laboratory Tests 10/02 10/01 0520 0618 Hematology WBC (4.5 - 11.0 x10 3/uL) 5.21 5.89 RBC (3.54 - 5.02 x10 6/uL) 2.78 L 2.77 L Hgb (11.0 - 15.0 g/dL) 8.1 L 8.3 L Hct (33.0 - 45.0 %) 26.6 L 25.5 L MCV (81.0 - 99.0 fL) 95.7 92.1 MCH (27.0 - 33.0 pg) 29.1 30.0 MCHC (33.0 - 37.0 g/dL) 30.5 L 32.5 L RDW (11.5 - 14.5 %) 13.6 13.5 Plt Count (150 - 400 x10 3/uL) 105 L 106 L MPV (7.0 - 9.0 fL) 12.0 H 11.7 H Neut % (Auto) (56.0 - 77.0 %) 52.4 L 56.6 Lymph % (Auto) (14.0 - 32.0 %) 30.3 33.1 H [place] % (Auto) (4.8 - 9.0 %) 14.0 H 8.1 Eos % (Auto) (0.3 - 3.7 %) 2.5 1.7 Baso % (Auto) (0.0 - 2.0 %) 0.4 0.2 Neut # (Auto) (2.0 - 7.6 x10 3/uL) 2.73 3.33 Lymph # (Auto) (1.0 - 3.8 x10 3/uL) 1.58 1.95 [place] # (Auto) (0.1 - 0.8 x10 3/uL) 0.73 0.48 Eos # (Auto) (0.0 - 0.2 x10 3/uL) 0.13 0.10 Baso # (Auto) (0.0 - 0.2 x10 3/uL) 0.02 0.01 Abs Immat Gran (auto) (0.00 - 0.03 x10 3/uL) 0.02 0.02 Add Manual Diff NO NO Immature Gran % (0.0 - 2.0 %) 0.4 0.3 Nucleated RBC % (0 - 0 %) 0.0 0.0 Nucleated RBCs # (Man) (0.0 - 0.1 x10 3/uL) 0.00 0.00 Immature Plt Fraction (0.9 - 11.2 %) 5.0 Microbiology Date/Time Procedure - Status Source Growth 10/03 99 Giardia Antigen (ANA) - COMP STOOL Laboratory Tests 10/02 10/02 10/02 10/02 191 1557 1057 0849 Chemistry POC Glucose (70 - 110 MG/DL) 123 H 123 H 142 H 105 Microbiology Date/Time Procedure - Status Source Growth 10/03 99 Giardia Antigen (ANA) - COMP STOOL Diagnosis, Assessment PlanFree Text A P:Patient seen and evaluated, discussed with care team, images and laboratories reviewed.History of dementiaHistory of rheumatoid arthritisHistory of frequent fallsHistory of frequent UTIsHistory of hypertension: Currently hypotensiveHypokalemia: We will supplementSevere hypomagnesemia we will supplementHypocalcemia: We will supplementHypoalbuminemiaSevere lactic acidosis: Etiology, could be related to septic shock, however source is unclear, rule out ischemic bowel, Zosyn, will need to review her medications if patient has been on metformin, lactic acidosis due to metformin in the setting of acute renal failure is a possibility and will do hemodialysis in the setting.Patient has been taking Metformin 1000 BID, kenneth has lactic acidosis that is induced by Metformin, discussed with deysi and ICC/Primary team will proceed with HD09/27/2019 mental status a lot better, hemodynamically more stable, pressors being weaned off, received 6 hours of hemodialysis yesterday, her last set of blood gas showed a pH of 7.40, PCO2 25, PO2 55, lactic acid 6.2 improving, sodium is 143 potassium 3.6 CO2 20 chloride 101 BUN 13 creatinine 1.1, hemoglobin this morning 9.7, white blood count 19.78 trending down, platelet 156, her clinical picture is consistent with metformin induced lactic acidosis, will do another session of hemodialysis, 4 hours, potassium 3.5, no ultrafiltration, will give 20 mmol of potassium phosphate and expectation of hypophosphatemia during hemodialysis. katie and evaluated during HD, discussed with RN and HD nurse09/28/2019 laboratories from this morning showed sodium 144, potassium 3.3 we will give KCl 20 mEq IV x1, chloride 104, bicarbonate 16, creatinine 1.2, lacticacid 1.2, hemoglobin 8.4, white blood count 15.2, blood culture still negative, anion gap today is 24 with a normal lactic acid etiology unclear will repeat BMP, repeat lactic acid and order serum acetone and do urinalysis to check for urine ketones, also will do a blood gas. Ketones came back as large, This is kenneth starvation ketoacidosis that has been exacerbated by gluconeogenesis inhibition by Metformin and has been reported in the literature, will start Glucose and insulin drip09/29/2019 laboratories from this morning showed sodium 142, potassium 2.7 we will give KCl 20 mEq IV x2, bicarbonate 32 with a chloride of 103 with disappearance of the anion gap correction of anion gap, will DC IV fluid with sodium bicarbonate, will DC insulin drip, changed to insulin sliding scale, start D10 at 30 cc/h since patient is noted nauseated, her chest x-ray showed pulmonary edema, will give IV Lasix 60 mg every 8 hours, give a dose of metolazone, her phosphorus 1.4, will give potassium phosphate 15 mmol IV x1, recheck lab in the afternoon, her lactic acid is 4 up some, not clear why is it elevated, we will recheck in the afternoon, her creatinine is 2.2, not sure whather baseline creatinine, her creatinine is relatively stable since yesterday, will monitor closely, hemoglobin is 7.8, white blood count 13.57 improving.09/30/2019 laboratories from this morning showed sodium 138, potassium 3.5, CO2 34, chloride 100, BUN and creatinine 22 and 2.4 up some likely related to diuretics, albumin 1.8, hemoglobin 7.8, platelet 60, white blood count 10.51 continues to trend down, lactic acid 1.2 within normal limit, urine output [id number] cc with Lasix. Chest x-ray still pending. Progressive thrombocytopenia with progressive decrease in hemoglobin, the latter could be related to fluid resuscitation, multiple blood draws and blood loss during dialysis procedure, however will check LDH, haptoglobin, PT/ PT. 10/01/2019 patient was transferred to the floor, PT PTT are within normal limit, LDH slightly elevated 276, liver function tests are within normal limit, haptoglobin pending, chest x-ray is better from yesterday. Sodium 138 today potassium 3.8, CO2 32, BUN and creatinine 25 and 2.6 trending up likely related to volume contraction. Will check post void resdiual10/03/2019 laboratories from this morning showed sodium 137, potassium 3.6, CO2 28, BUN and creatinine 30 and 3.0 continue to rise, blood pressures on the low side will try midodrine 5 mg p.o. 3 times daily, hypomagnesemia 1.7 we will givemagnesium sulfate 1 g IV x1, hemoglobin 8.1, white blood count 5.21, will check the results of postvoid residual. BNP 109 will increase IVF to 75 cc per h4 Hgb 8.4, WBC 109, Na 136, K 4.1, HCO3 23, BUN 31, Creat 3.0 stable sinceyesterday, continue IVF at 1053 RPT #:[id number] OF REPORTPRProgress Cthl8139-42-57Z01:42:00G.[id number] for patient bdzaCMUTKARJTLEBQL9553-47-20D02:53:[address] [facility] 2019-10-03 11:39:00 [id number] T4kRiHhhnNxbMx05r GEXW70EknFL9Em9wCKwP7SBlL10534-32-05B14:39:00 [facility])Gastroenterology Progress NoteREPORT#:[id number] REPORT STATUS: SignedDATE:10/03/19 TIME: 1139 PATIENT: MAC AGUSTIN UNIT #: [id number]#: [id number] [address] [birth year] AGE: 74 SEX: F ATTEND: Joel Myers [facility] AUTHOR: Arian Anderson * ALL edits or amendments must be made on the electronic/computer document * SubjectiveChief Complaint:weakHPI:Not eating much. No evidence of GI bleeding. Review of SystemsUnable to obtain due to:dementia Objective GeneralVS/I O:Last Documented: Result Date Time Pulse Ox 99 10/02 1101 B/P 106/68 10/02 1101 B/P Mean 81.0 10/02 1101 Temp 36.8 10/02 1101 Pulse 65 10/02 1101 Resp 17 10/02 1101 O2 Delivery Nasal cannula 10/02 0735 O2 Flow Rate 4.197266 10/02 0735 24 hour I O ending at 0700: 10/02 0700 10/01 1900 Intake Total 120 270 Output Total Balance 120 270 Intake, Oral 60 Intake, Oral 60 270 Supplement Number 0 Bowel Movements Number 3 Incontinent Voids Patient Weight Weight (lb): 167Weight (oz): 15.88Weight (kg): 75.75 Medications:Active Meds + DC'd Last 24 HrsMidodrine 5 MG 0900,1300,1700 PO Sodium Chloride 1,000 ML .Q20H IV Magnesium Sulfate/Dextrose 100 ML ONCE ONE IV (DC) Magnesium Sulfate/Dextrose 100 ML ONCE ONE IV (DC) Potassium Chloride 50 ML Q1HR IV (DC) Pantoprazole 40 MG BID@0600,1800 PO Megestrol Acetate 800 MG DAILY PO Zinc Oxide 1 APPLIC BID TOPICAL Lidocaine 1 EA Q24H TOPICAL Insulin Human Lispro 0 AC HS SUBQ Morphine Sulfate 2 MG Q4H PRN PRN IV Acetaminophen 650 MG Q4H PRN PRN PO Heparin Sodium 5,000 UNIT Q12HR SUBQ Physical ExamGeneral appearance: no acute distressHEENT: moist mucosal membranesCardiovascular: normal S1/U4Ygjqtynyegf: clear to auscultationAbdomen: non-tender, normal bowel sounds, soft, no distentionExtremities: edemaMusculoskeletal: normal inspectionSkin: dry ResultsFindings/Data:Laboratory Tests 10/03/19 05:[Embedded Image Not Available]Laboratory Tests 10/02 10/02 10/02 10/01 10/01 0826 0520 0520 1949 1558Chemistry Sodium (134 - 147 mEq/L) 137 Potassium (3.4 - 5.0 mEq/L) 3.6 Chloride (100 - 108 mEq/L) 100 Carbon Dioxide (21 - 33 mEq/L) 28 Anion Gap (0 - 20) 13 BUN (7 - 18 mg/dL) 30 H Creatinine (0.6 - 1.3 mg/dL) 3.0 H Glomerular Filtr Rate (70 - 80) 15.3 L Glucose (70 - 110 mg/dL) 101 POC Glucose (70 - 110 MG/DL) 105 99 80 Calcium (8.0 - 10.5 mg/dL) 8.4 Phosphorus (2.5 - 4.9 MG/DL) 2.8 Magnesium (1.8 - 2.4 mg/dL) 1.70 L B-Natriuretic Peptide (0 - 100 PG/ML) 109.1 H Laboratory Tests 10/02 0520 Hematology WBC (4.5 - 11.0 x10 3/uL) 5.21 RBC (3.54 - 5.02 x10 6/uL) 2.78 L Hgb (11.0 - 15.0 g/dL) 8.1 L Hct (33.0 - 45.0 %) 26.6 L MCV (81.0 - 99.0 fL) 95.7 MCH (27.0 - 33.0 pg) 29.1 MCHC (33.0 - 37.0 g/dL) 30.5 L RDW (11.5 - 14.5 %) 13.6 Plt Count (150 - 400 x10 3/uL) 105 L MPV (7.0 - 9.0 fL) 12.0 H Neut % (Auto) (56.0 - 77.0 %) 52.4 L Lymph % (Auto) (14.0 - 32.0 %) 30.3 [place] % (Auto) (4.8 - 9.0 %) 14.0 H Eos % (Auto) (0.3 - 3.7 %) 2.5 Baso % (Auto) (0.0 - 2.0 %) 0.4 Neut # (Auto) (2.0 - 7.6 x10 3/uL) 2.73 Lymph # (Auto) (1.0 - 3.8 x10 3/uL) 1.58 [place] # (Auto) (0.1 - 0.8 x10 3/uL) 0.73 Eos # (Auto) (0.0 - 0.2 x10 3/uL) 0.13 Baso # (Auto) (0.0 - 0.2 x10 3/uL) 0.02 Abs Immat Gran (auto) (0.00 - 0.03 x10 3/uL) 0.02 Add Manual Diff NO Immature Gran % (0.0 - 2.0 %) 0.4 Nucleated RBC % (0 - 0 %) 0.0 Nucleated RBCs # (Man) (0.0 - 0.1 x10 3/uL) 0.00 Results: labs reviewed, vital signs stable Diagnosis, Assessment PlanProblem List/A P: 1. Antibiotic-associated diarrhea Free Text A P:IMPRESSION: A 74-year-old female with a host of comorbidities, especiallyadvanced dementia, presented with failure to thrive kind of situation, labs weresignificantly abnormal with electrolyte disbalance, acute renal failure,metabolic acidosis and underlying sepsis from urinary tract infection. UTI isbeing treated with IV antibiotic. She is responding. The CT finding of colonicwall thickening as well as gastric distention with gastric wall thickening is anincidental finding. PLAN:1. Colonic wall thickening is not concerning. This diffuse colonic wall edemacould be due to underlying sepsis and hypoalbuminemia. This does not warrantany further investigation at this time. It seems to be self-limiting.2. Gastric distention, gastric wall thickening certainly needs furtherevaluation with direct visualization. Therefore, upper endoscopy should beconsidered when the patient is medically stable and has recovered well from hercurrent acute illness. 10/03/19- C diff ordered and pending collection. Diarrhea resolved. - Broaden stool studies. Pending collection.- PPI PO- Continue Megace - Supportive care- Outpatient EGD and colonoscopy given current COVID restrictions and no evidence of active bleeding- Consider NGT versus IR placed g-tube if PO intake does not improve and family is agreeable. at 1141 RPT #:[id number] OF REPORTPRProgress Kbmq9144-10-68W94:39:00G.[id number] for patient ogubUDTKQXWHNFCYHT3976-45-60N86:41:[address] [facility] 2019-10-03 11:39:00 [id number]+DhT9+gWXMYUl9id9TnRR CaoA84slVAutDvqeI taRHn/ELNVtKSsLNgmQw1Do88676-41-69Z63:39:00 [facility] Progress NoteREPORT#:[id number] REPORT STATUS: SignedDATE:10/03/19 TIME: 113 PATIENT: MAC AGUSTIN UNIT #: [id number]#: [id number] [address] [birth year] AGE: 74 SEX: F ATTEND: Joel Myers [facility] AUTHOR: Arian Anderson * ALL edits or amendments must be made on the electronic/computer document * Arian Anderson 10/03/19 1139:SubjectiveChief Complaint:weakHPI:Not eating much. No evidence of GI bleeding. Review of SystemsUnable to obtain due to:dementia Objective GeneralVS/I O:Last Documented: Result Date Time Pulse Ox 99 10/02 1101 B/P 106/68 10/02 1101 B/P Mean 81.0 10/02 1101 Temp 36.8 10/02 1101 Pulse 65 10/02 1101 Resp 17 10/02 1101 O2 Delivery Nasal cannula 10/02 734 O2 Flow Rate 4.669153 10/02 0735 24 hour I O ending at 0700: 10/02 0700 10/01 1900 Intake Total 120 270 Output Total Balance 120 270 Intake, Oral 60 Intake, Oral 60 270 Supplement Number 0 Bowel Movements Number 3 Incontinent Voids Patient Weight Weight (lb): 167Weight (oz): 15.88Weight (kg): 75.75 Medications:Active Meds + DC'd Last 24 HrsMidodrine 5 MG 0900,1300,1700 PO Sodium Chloride 1,000 ML .Q20H IV Magnesium Sulfate/Dextrose 100 ML ONCE ONE IV (DC) Magnesium Sulfate/Dextrose 100 ML ONCE ONE IV (DC) Potassium Chloride 50 ML Q1HR IV (DC) Pantoprazole 40 MG BID@0600,1800 PO Megestrol Acetate 800 MG DAILY PO Zinc Oxide 1 APPLIC BID TOPICAL Lidocaine 1 EA Q24H TOPICAL Insulin Human Lispro 0 AC HS SUBQ Morphine Sulfate 2 MG Q4H PRN PRN IV Acetaminophen 650 MG Q4H PRN PRN PO Heparin Sodium 5,000 UNIT Q12HR SUBQ Physical ExamGeneral appearance: no acute distressHEENT: moist mucosal membranesCardiovascular: normal S1/S3Mvrysymrykc: clear to auscultationAbdomen: non-tender, normal bowel sounds, soft, no distentionExtremities: edemaMusculoskeletal: normal inspectionSkin: dry ResultsFindings/Data:Laboratory Tests 10/03/19 05:[Embedded Image Not Available]Laboratory Tests 10/02 10/02 10/02 10/01 10/01 08 0520 0520 1949 1558Chemistry Sodium (134 - 147 mEq/L) 137 Potassium (3.4 - 5.0 mEq/L) 3.6 Chloride (100 - 108 mEq/L) 100 Carbon Dioxide (21 - 33 mEq/L) 28 Anion Gap (0 - 20) 13 BUN (7 - 18 mg/dL) 30 H Creatinine (0.6 - 1.3 mg/dL) 3.0 H Glomerular Filtr Rate (70 - 80) 15.3 L Glucose (70 - 110 mg/dL) 101 POC Glucose (70 - 110 MG/DL) 105 99 80 Calcium (8.0 - 10.5 mg/dL) 8.4 Phosphorus (2.5 - 4.9 MG/DL) 2.8 Magnesium (1.8 - 2.4 mg/dL) 1.70 L B-Natriuretic Peptide (0 - 100 PG/ML) 109.1 H Laboratory Tests 10/02 0520 Hematology WBC (4.5 - 11.0 x10 3/uL) 5.21 RBC (3.54 - 5.02 x10 6/uL) 2.78 L Hgb (11.0 - 15.0 g/dL) 8.1 L Hct (33.0 - 45.0 %) 26.6 L MCV (81.0 - 99.0 fL) 95.7 MCH (27.0 - 33.0 pg) 29.1 MCHC (33.0 - 37.0 g/dL) 30.5 L RDW (11.5 - 14.5 %) 13.6 Plt Count (150 - 400 x10 3/uL) 105 L MPV (7.0 - 9.0 fL) 12.0 H Neut % (Auto) (56.0 - 77.0 %) 52.4 L Lymph % (Auto) (14.0 - 32.0 %) 30.3 [place] % (Auto) (4.8 - 9.0 %) 14.0 H Eos % (Auto) (0.3 - 3.7 %) 2.5 Baso % (Auto) (0.0 - 2.0 %) 0.4 Neut # (Auto) (2.0 - 7.6 x10 3/uL) 2.73 Lymph # (Auto) (1.0 - 3.8 x10 3/uL) 1.58 [place] # (Auto) (0.1 - 0.8 x10 3/uL) 0.73 Eos # (Auto) (0.0 - 0.2 x10 3/uL) 0.13 Baso # (Auto) (0.0 - 0.2 x10 3/uL) 0.02 Abs Immat Gran (auto) (0.00 - 0.03 x10 3/uL) 0.02 Add Manual Diff NO Immature Gran % (0.0 - 2.0 %) 0.4 Nucleated RBC % (0 - 0 %) 0.0 Nucleated RBCs # (Man) (0.0 - 0.1 x10 3/uL) 0.00 Results: labs reviewed, vital signs stable Diagnosis, Assessment PlanProblem List/A P: 1. Antibiotic-associated diarrhea Free Text A P:IMPRESSION: A 74-year-old female with a host of comorbidities, especiallyadvanced dementia, presented with failure to thrive kind of situation, labs weresignificantly abnormal with electrolyte disbalance, acute renal failure,metabolic acidosis and underlying sepsis from urinary tract infection. UTI isbeing treated with IV antibiotic. She is responding. The CT finding of colonicwall thickening as well as gastric distention with gastric wall thickening is anincidental finding. PLAN:1. Colonic wall thickening is not concerning. This diffuse colonic wall edemacould be due to underlying sepsis and hypoalbuminemia. This does not warrantany further investigation at this time. It seems to be self-limiting.2. Gastric distention, gastric wall thickening certainly needs furtherevaluation with direct visualization. Therefore, upper endoscopy should beconsidered when the patient is medically stable and has recovered well from hercurrent acute illness. 10/03/19- C diff ordered and pending collection. Diarrhea resolved. - Broaden stool studies. Pending collection.- PPI PO- Continue Megace - Supportive care- Outpatient EGD and colonoscopy given current COVID restrictions and no evidence of active bleeding- Consider NGT versus IR placed g-tube if PO intake does not improve and family is agreeable. Coleman Sr V. 11/07/19 0901:Attestations Physician AttestationAgree w/findings plan:Patient seen and examined. 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 at 1141 RPT #:[id number] OF REPORTPRProgress Uyef0483-05-84M26:39:00G.[id number] for patient mnnxCXDGFJYBBEXWOD4410-73-83F23:01:[address] [facility] 2019-10-03 11:39:00 [id number] dkjIVGWRDZOnDvrkE +WZKShFlTF1bNt0taGjORTqf6P4164-10-38R61:39:00 [facility] ([facility])Gastroenterology Progress NoteREPORT#:[id number] REPORT STATUS: SignedDATE:10/03/19 TIME: 113 PATIENT: MAC AGUSTIN UNIT #: [id number]#: [id number] [address] [birth year] AGE: 74 SEX: F ATTEND: Joel Myers [facility] AUTHOR: Arian Anderson * ALL edits or amendments must be made on the electronic/computer document * Arian Anderson 10/03/19 1139:SubjectiveChief Complaint:weakHPI:Not eating much. No evidence of GI bleeding. Review of SystemsUnable to obtain due to:dementia Objective GeneralVS/I O:Last Documented: Result Date Time Pulse Ox 99 10/02 1101 B/P 106/68 10/02 1101 B/P Mean 81.0 10/02 1101 Temp 36.8 10/02 1101 Pulse 65 10/02 1101 Resp 17 10/02 1101 O2 Delivery Nasal cannula 10/02 0735 O2 Flow Rate 4.518307 10/02 0735 24 hour I O ending at 0700: 10/02 0700 10/01 1900 Intake Total 120 270 Output Total Balance 120 270 Intake, Oral 60 Intake, Oral 60 270 Supplement Number 0 Bowel Movements Number 3 Incontinent Voids Patient Weight Weight (lb): 167Weight (oz): 15.88Weight (kg): 75.75 Medications:Active Meds + DC'd Last 24 HrsMidodrine 5 MG 0900,1300,1700 PO Sodium Chloride 1,000 ML .Q20H IV Magnesium Sulfate/Dextrose 100 ML ONCE ONE IV (DC) Magnesium Sulfate/Dextrose 100 ML ONCE ONE IV (DC) Potassium Chloride 50 ML Q1HR IV (DC) Pantoprazole 40 MG BID@0600,1800 PO Megestrol Acetate 800 MG DAILY PO Zinc Oxide 1 APPLIC BID TOPICAL Lidocaine 1 EA Q24H TOPICAL Insulin Human Lispro 0 AC HS SUBQ Morphine Sulfate 2 MG Q4H PRN PRN IV Acetaminophen 650 MG Q4H PRN PRN PO Heparin Sodium 5,000 UNIT Q12HR SUBQ Physical ExamGeneral appearance: no acute distressHEENT: moist mucosal membranesCardiovascular: normal S1/Y1Xlxynzubpnv: clear to auscultationAbdomen: non-tender, normal bowel sounds, soft, no distentionExtremities: edemaMusculoskeletal: normal inspectionSkin: dry ResultsFindings/Data:Laboratory Tests 10/03/19 0520:[Embedded Image Not Available]Laboratory Tests 10/02 10/02 10/02 10/01 10/01 08 0520 0520 1949 1558Chemistry Sodium (134 - 147 mEq/L) 137 Potassium (3.4 - 5.0 mEq/L) 3.6 Chloride (100 - 108 mEq/L) 100 Carbon Dioxide (21 - 33 mEq/L) 28 Anion Gap (0 - 20) 13 BUN (7 - 18 mg/dL) 30 H Creatinine (0.6 - 1.3 mg/dL) 3.0 H Glomerular Filtr Rate (70 - 80) 15.3 L Glucose (70 - 110 mg/dL) 101 POC Glucose (70 - 110 MG/DL) 105 99 80 Calcium (8.0 - 10.5 mg/dL) 8.4 Phosphorus (2.5 - 4.9 MG/DL) 2.8 Magnesium (1.8 - 2.4 mg/dL) 1.70 L B-Natriuretic Peptide (0 - 100 PG/ML) 109.1 H Laboratory Tests 10/02 0520 Hematology WBC (4.5 - 11.0 x10 3/uL) 5.21 RBC (3.54 - 5.02 x10 6/uL) 2.78 L Hgb (11.0 - 15.0 g/dL) 8.1 L Hct (33.0 - 45.0 %) 26.6 L MCV (81.0 - 99.0 fL) 95.7 MCH (27.0 - 33.0 pg) 29.1 MCHC (33.0 - 37.0 g/dL) 30.5 L RDW (11.5 - 14.5 %) 13.6 Plt Count (150 - 400 x10 3/uL) 105 L MPV (7.0 - 9.0 fL) 12.0 H Neut % (Auto) (56.0 - 77.0 %) 52.4 L Lymph % (Auto) (14.0 - 32.0 %) 30.3 [place] % (Auto) (4.8 - 9.0 %) 14.0 H Eos % (Auto) (0.3 - 3.7 %) 2.5 Baso % (Auto) (0.0 - 2.0 %) 0.4 Neut # (Auto) (2.0 - 7.6 x10 3/uL) 2.73 Lymph # (Auto) (1.0 - 3.8 x10 3/uL) 1.58 [place] # (Auto) (0.1 - 0.8 x10 3/uL) 0.73 Eos # (Auto) (0.0 - 0.2 x10 3/uL) 0.13 Baso # (Auto) (0.0 - 0.2 x10 3/uL) 0.02 Abs Immat Gran (auto) (0.00 - 0.03 x10 3/uL) 0.02 Add Manual Diff NO Immature Gran % (0.0 - 2.0 %) 0.4 Nucleated RBC % (0 - 0 %) 0.0 Nucleated RBCs # (Man) (0.0 - 0.1 x10 3/uL) 0.00 Results: labs reviewed, vital signs stable Diagnosis, Assessment PlanProblem List/A P: 1. Antibiotic-associated diarrhea Free Text A P:IMPRESSION: A 74-year-old female with a host of comorbidities, especiallyadvanced dementia, presented with failure to thrive kind of situation, labs weresignificantly abnormal with electrolyte disbalance, acute renal failure,metabolic acidosis and underlying sepsis from urinary tract infection. UTI isbeing treated with IV antibiotic. She is responding. The CT finding of colonicwall thickening as well as gastric distention with gastric wall thickening is anincidental finding. PLAN:1. Colonic wall thickening is not concerning. This diffuse colonic wall edemacould be due to underlying sepsis and hypoalbuminemia. This does not warrantany further investigation at this time. It seems to be self-limiting.2. Gastric distention, gastric wall thickening certainly needs furtherevaluation with direct visualization. Therefore, upper endoscopy should beconsidered when the patient is medically stable and has recovered well from hercurrent acute illness. 10/03/19- C diff ordered and pending collection. Diarrhea resolved. - Broaden stool studies. Pending collection.- PPI PO- Continue Megace - Supportive care- Outpatient EGD and colonoscopy given current COVID restrictions and no evidence of active bleeding- Consider NGT versus IR placed g-tube if PO intake does not improve and family is agreeable. Coleman Sr V. 11/07/19 0901:Attestations Physician AttestationAgree w/findings plan:Patient seen and examined. 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 at 1141 at 0914 RPT #:[id number] OF REPORTPRProgress Ulxf9100-75-97M53:39:00G.[id number] for patient dyagIDBDINGFEIBAXH5947-98-76X23:14:[address] [facility] 2019-10-03 11:36:00 [id number] 5HeSKBKeM1NHUAqCe +M6wek9J9ItpgC7mSxxwzl/ceU4675-51-28P46:36:00 [facility] ([facility])Rehab Progress NoteREPORT#:[id number] REPORT STATUS: SignedDATE:10/03/19 TIME: 1136 PATIENT: MAC AGUSTIN UNIT #: [id number]#: [id number] [address] [birth year] AGE: 74 SEX: F ATTEND: Joel Myers [facility] AUTHOR: Lucy Ayon PA-C * ALL edits or amendments must be made on the electronic/computer document * SubjectiveChief complaint:Pt seen in bed. No complaints. States tired this a.m. + dmentia. Poor historian. Objective GeneralVS:Vital Signs: Date Time Temp Pulse Resp B/P B/P Pulse O2 O2 Flow FiO2 Mean Ox Delivery Rate 10/02 1101 98.2 65 17 106/68 81.0 99 10/02 0735 Nasal 4.452094 cannula 10/02 0442 98.2 66 17 93/59 70.5 99 10/01 2310 98.1 64 16 93/59 0.0 99 10/01 1951 97.3 74 17 105/65 78.1 99 10/01 1603 98.4 68 17 100/54 69.3 99 Patient Weight Weight (lb): 167Weight (oz): 15.88Weight (kg): 75.75 Medications:Active Meds + DC'd Last 24 HrsMidodrine 5 MG 0900,1300,1700 PO Sodium Chloride 1,000 ML .Q20H IV Magnesium Sulfate/Dextrose 100 ML ONCE ONE IV (DC) Magnesium Sulfate/Dextrose 100 ML ONCE ONE IV (DC) Potassium Chloride 50 ML Q1HR IV (DC) Pantoprazole 40 MG BID@0600,1800 PO Megestrol Acetate 800 MG DAILY PO Zinc Oxide 1 APPLIC BID TOPICAL Lidocaine 1 EA Q24H TOPICAL Insulin Human Lispro 0 AC HS SUBQ Morphine Sulfate 2 MG Q4H PRN PRN IV Acetaminophen 650 MG Q4H PRN PRN PO Heparin Sodium 5,000 UNIT Q12HR SUBQ Physical ExamGeneral appearance: alert, awakePsych: normal affectHEENT: anicteric, mucosal membranes moist, sclera clearNeck: supple, no JVDCardiovascular: regular rate rhythm, S1/W5Oqikgehgxpw: aerating well, clear bilaterallyAbdomen: bowel sounds present, non-distended, soft, soft, non-tenderSkin: dry, intactMusculoskeletal - general: Musculoskeletal - general: joints normal, range of motion normal, no swellingNeuro/FAST FOOD ATTENDANT: altered mental status, alert, no motor deficits, no sensory deficits Functional ProgressFunctional progress: Lower Extremity Dressing: Y Precautions: Fall Requires verbal cues to direct task: N Positions Used: Supine in bed with HOB up FUNCTIONAL BALANCE DURING ACTIVITY: Fair TREATMENT OUTCOMES: Progress demonstrated toward desired goals: Y Activity tolerance: 0-10 minutes Comments: PT REMAINED BED LEVEL FOR ADLS, C/O BEING TOO COLD. NURSING IN ROOM FOR BLADDER SCAN. TREATMENT STOPPED. PT LEFT W/ NURSE. If this is the patient's last treatment, this entry serves as the discharge summary: Y Start Time: 1215 Stop Time: 1225 Treatment time (minutes): 10 Completed by: Liv Juan GROOMING/HYGIENE: Safety awareness demonstrated Lower Extremity Dressing: Maximal Assistance Increased time required: Y Requires set up of supplies: Y Requires physical assist to dress Lower Extremity: Don Clothing and Adjust Doff Clothing and Adjust Due to: Decrease attention/task Decreased Range of Motion Comments: PT ABLE TO DOFF B SOCKS ONCE ASSISTED W/LIFTING FOOT TO KNEE, ASST OVER TOE . FUNCTIONAL MOBILITY FUNCTIONAL MOBILITY Items determined to be OUTSIDE the Functional Limits are as follows: BED MOBILITY: Y Rolling Right/Left: Maximal Assistance Supine to Sit: Maximal Assistance Sit to Supine: Maximal Assistance Scooting in bed: Maximal Assistance Bed Mob.Cmt: TACTILE CUES FOR UPPER BODY ASSIST AND BLE LIFT AND LOWER. INCREASE TIME SITTING AT EOB DUE TO SLOW PACE AND FOR STABILITY. LATERAL SCOOTING PERFORMED TOWARDS HEAD OF BED AT MAX ASSISTANCE. PATIENT UNABLE TO COMPLETE FULL STANDING WHEN ATTEMPTED. TRANSFERS: N BALANCE: Y Static Standing: Not Tested Dynamic Standing: Not Tested Static Sitting: Moderate Assistance Dynamic Sitting: Moderate Assistance Balance Cmt: SITTING BALANCE FAIR ATTEMPTED STANDING, PATIENT UNABLE Items determined to be OUTSIDE the Functional Limits are as follows: ResultsFindings/Data:Laboratory Tests: 10/02 10/02 10/02 10/01 10/01 0826 0520 [id number] 1558Chemistry Sodium (134 - 147 mEq/L) 137 Potassium (3.4 - 5.0 mEq/L) 3.6 Chloride (100 - 108 mEq/L) 100 Carbon Dioxide (21 - 33 mEq/L) 28 Anion Gap (0 - 20) 13 BUN (7 - 18 mg/dL) 30 H Creatinine (0.6 - 1.3 mg/dL) 3.0 H Glomerular Filtr Rate (70 - 80) 15.3 L Glucose (70 - 110 mg/dL) 101 POC Glucose (70 - 110 MG/DL) 105 99 80 Calcium (8.0 - 10.5 mg/dL) 8.4 Phosphorus (2.5 - 4.9 MG/DL) 2.8 Magnesium (1.8 - 2.4 mg/dL) 1.70 L B-Natriuretic Peptide (0 - 100 PG/ML) 109.1 HHematology WBC (4.5 - 11.0 x10 3/uL) 5.21 RBC (3.54 - 5.02 x10 6/uL) 2.78 L Hgb (11.0 - 15.0 g/dL) 8.1 L Hct (33.0 - 45.0 %) 26.6 L MCV (81.0 - 99.0 fL) 95.7 MCH (27.0 - 33.0 pg) 29.1 MCHC (33.0 - 37.0 g/dL) 30.5 L RDW (11.5 - 14.5 %) 13.6 Plt Count (150 - 400 x10 3/uL) 105 L MPV (7.0 - 9.0 fL) 12.0 H Neut % (Auto) (56.0 - 77.0 %) 52.4 L Lymph % (Auto) (14.0 - 32.0 %) 30.3 [place] % (Auto) (4.8 - 9.0 %) 14.0 H Eos % (Auto) (0.3 - 3.7 %) 2.5 Baso % (Auto) (0.0 - 2.0 %) 0.4 Neut # (Auto) (2.0 - 7.6 x10 3/uL) 2.73 Lymph # (Auto) (1.0 - 3.8 x10 3/uL) 1.58 [place] # (Auto) (0.1 - 0.8 x10 3/uL) 0.73 Eos # (Auto) (0.0 - 0.2 x10 3/uL) 0.13 Baso # (Auto) (0.0 - 0.2 x10 3/uL) 0.02 Abs Immat Gran (auto) (0.00 - 0.03 0.02x10 3/uL) Add Manual Diff NO Immature Gran % (0.0 - 2.0 %) 0.4 Nucleated RBC % (0 - 0 %) 0.0 Nucleated RBCs # (Man) (0.0 - 0.1 0.00x10 3/uL) Diagnosis, Assessment PlanProblem List/A P: 1. Acute renal failure 2. Physical deconditioning 3. Hypomagnesemia 4. Lactic acidosis 5. DKA (diabetic ketoacidoses) 6. Metabolic acidosis 7. Gastric distention Free Text A P:74 years old female with past medical history significant for Alzheimer's dementia, behavioral disturbance, hypertension, type 2 diabetes mellitus, migraine headaches, anxiety disorder, bowel and bladder incontinence, rheumatoidarthritis, frequent UTI. She was admitted secondary to severe lactic acidosis, metabolic acidosis with anion gap secondary to metformin and dehydration. Started on hemodialysis secondary to acute renal failure and lactic acidosis with multiple electrolyte abnormalities including hypokalemia, hypo-Juan anemia, hypocalcemia, hypoalbuminemia. Patient then developed acute pulmonary vascular congestion is being diuresed. Plan: Physical therapy, Occupational Therapy and speech therapy have been consulted. Due to patient being an unreliable historian and moderate dementia she would benefit from returning to snf facility following [facility]. I discussed with the patient's rgxvhzvs-oi-ykp who is on the chart as 1 of the contacts and she states their wish is for her to return to [facility] once medically cleared. 10/01: Encourage particpation with therpay.C. Diff not collected. Pt hgb stable.SNF once ready to be discharged. 10/02: Pt looks sleepy this a.m. Cr climbing. Minimal breakfast eaten this a.m. Nephrology on board monitoring. Plans to get MAg and Midodrine started. Encourage particpation with therapy. MAX A with bed mobility. Transfers not attempted. Rehab attestation:Face to face exam completed. Treatment plan discussed with patient. at 1142 RPT #:[id number] OF REPORTPRProgress [id number]:36:00G.[id number] for patient hrfaXWVHTSIVXPZRCH8976-89-32B97:42:40 [facility] 2019-10-03 08:43:00 [id number] tG9jhS+yAXm/pqpvb Xtd3E60T2hIepaVzxNxfzFNSq62744-62-60Q97:43:00 [facility] TaylorHospitalist Progress NoteREPORT#:[id number] REPORT STATUS: SignedDATE:10/03/19 TIME: 0843 PATIENT: MAC AGUSTIN UNIT #: [id number]#: [id number] ROOM/BED: 4431-1DOB: [birth year] AGE: 74 SEX: F ATTEND: Joel Myers AUTHOR: Joel Myers MD * ALL edits or amendments must be made on the electronic/computer document * SubjectiveChief Complaint:follow up for NATHEN/CKD, HTN. no change. denies pain. Review of SystemsAdditional notes:12 point ROS negative except for mentioned in HPI. Objective GeneralVS/I O:Vital Signs: Date Time Temp Pulse Resp B/P B/P Pulse O2 O2 Flow FiO2 Mean Ox Delivery Rate 10/02 0735 Nasal 4.690913 cannula 10/02 0442 98.2 66 17 93/59 70.5 99 10/01 2310 98.1 64 16 93/59 0.0 99 10/01 1951 97.3 74 17 105/65 78.1 99 10/01 1603 98.4 68 17 100/54 69.3 99 10/01 1123 97.9 68 17 101/58 72.4 95 Nasal cannula 24 hour I O ending at 0700: 10/02 0700 10/01 1900 Intake Total 120 270 Output Total Balance 120 270 Intake, Oral 60 Intake, Oral 60 270 Supplement Number 0 Bowel Movements Number 3 Incontinent Voids Patient Weight Weight (lb): 167Weight (oz): 15.88Weight (kg): 75.75 Medications:Active Meds + DC'd Last 24 HrsMidodrine 5 MG 0900,1300,1700 PO Magnesium Sulfate/Dextrose 100 ML ONCE ONE IV Magnesium Sulfate/Dextrose 100 ML ONCE ONE IV (UNV) Potassium Chloride 50 ML Q1HR IV (DC) Magnesium Sulfate/Dextrose 100 ML ONCE ONE IV (DC) Pantoprazole 40 MG BID@0600,1800 PO Megestrol Acetate 800 MG DAILY PO Zinc Oxide 1 APPLIC BID TOPICAL Lidocaine 1 EA Q24H TOPICAL Insulin Human Lispro 0 AC HS SUBQ Morphine Sulfate 2 MG Q4H PRN PRN IV Acetaminophen 650 MG Q4H PRN PRN PO Heparin Sodium 5,000 UNIT Q12HR SUBQ Physical ExamGeneral appearance: confused (intermittent), alert, awakeHead/Eyes: atraumatic, normocephalicENT: moist mucosal membranesNeck: non-tender, no JVD, no masses or swellingCardiovascular: normal heart sounds, regular rate rhythmRespiratory: decreased breath sounds, rhonchi, symmetric expansion, no distress,no rales appreciated on anterior examAbdomen: soft, no distention, no guarding, no reboundGenitourinary: no bladder distentionExtremities: edema (bLE +1), no clubbing, no cyanosisMusculoskeletal: normal inspectionNeuro/FAST FOOD ATTENDANT: no motor deficitsSkin: no rashPsychiatry: normal affect ResultsFindings/Data:Laboratory Tests 10/02 10/01 10/01 10/01 0520 1949 1558 1120 Chemistry Sodium (134 - 147 mEq/L) 137 Potassium (3.4 - 5.0 mEq/L) 3.6 Chloride (100 - 108 mEq/L) 100 Carbon Dioxide (21 - 33 mEq/L) 28 Anion Gap (0 - 20) 13 BUN (7 - 18 mg/dL) 30 H Creatinine (0.6 - 1.3 mg/dL) 3.0 H Glomerular Filtr Rate (70 - 80) 15.3 L Glucose (70 - 110 mg/dL) 101 POC Glucose (70 - 110 MG/DL) 99 80 151 H Calcium (8.0 - 10.5 mg/dL) 8.4 Phosphorus (2.5 - 4.9 MG/DL) 2.8 Magnesium (1.8 - 2.4 mg/dL) 1.70 L Laboratory Tests 10/02 0520 Hematology WBC (4.5 - 11.0 x10 3/uL) 5.21 RBC (3.54 - 5.02 x10 6/uL) 2.78 L Hgb (11.0 - 15.0 g/dL) 8.1 L Hct (33.0 - 45.0 %) 26.6 L MCV (81.0 - 99.0 fL) 95.7 MCH (27.0 - 33.0 pg) 29.1 MCHC (33.0 - 37.0 g/dL) 30.5 L RDW (11.5 - 14.5 %) 13.6 Plt Count (150 - 400 x10 3/uL) 105 L MPV (7.0 - 9.0 fL) 12.0 H Neut % (Auto) (56.0 - 77.0 %) 52.4 L Lymph % (Auto) (14.0 - 32.0 %) 30.3 [place] % (Auto) (4.8 - 9.0 %) 14.0 H Eos % (Auto) (0.3 - 3.7 %) 2.5 Baso % (Auto) (0.0 - 2.0 %) 0.4 Neut # (Auto) (2.0 - 7.6 x10 3/uL) 2.73 Lymph # (Auto) (1.0 - 3.8 x10 3/uL) 1.58 [place] # (Auto) (0.1 - 0.8 x10 3/uL) 0.73 Eos # (Auto) (0.0 - 0.2 x10 3/uL) 0.13 Baso # (Auto) (0.0 - 0.2 x10 3/uL) 0.02 Abs Immat Gran (auto) (0.00 - 0.03 x10 3/uL) 0.02 Add Manual Diff NO Immature Gran % (0.0 - 2.0 %) 0.4 Nucleated RBC % (0 - 0 %) 0.0 Nucleated RBCs # (Man) (0.0 - 0.1 x10 3/uL) 0.00 Diagnosis, Assessment Plan Free Text DxA P NotesFree text DxA P notes:Severe lactic acidosisSevere metabolic acidosisAcute renal failureHypocalcemiaHypomagnesemia?Septic shock vs lactic acidosis from metforminDehydrationHypothermiaDMHTNDementia with behavior disturbancepersistent hypoglycemia Plan:Ms. Agustin is a 74 yo female with non-specific symptoms of not feeling well, poor appetite that was found to have abnormal labs at [facility], sent to ED for evaluation. In the ED, found to have severe lactic and metabolic acidosis. Discussed at length with ICU (Dr. Lin) and Renal (Dr Aguilar). Given her [facility] imaging, urinalysis, CXR are unremarkable for this level of acidosis, perhaps this acidosis is secondary to metformin. Plan is to dialyize patient to look for improvement. If no improvement, perhaps this is ischemic bowel. Will continue empiric Zosyn. - Zosyn- blood cultures pending- hold home meds- Accuchecks and SSI- replace electrolytes- heparin for DVT prophylaxsis 09/26Improved lactic acidosis with dialysis. Given improvement, likely this was lactic acidosis secondary to metformin. WBC persistently elevated at 19, will continue broad spectrum abx for now - blood cultures negative - UA unremarkable - monitor CBC for downtrend - if WBC remains elevated with mention of possible neoplasm in stomach, would consider work up however, this patient has dementia with low quality of life, not a good candidate for work up/treatment.BS well controlled with current insulin scheduleCheck labs in am 09/27Lactate remains normal, continue to hold metforminPt noted return of anion gap acidosis with ketonuria. Discussed with Dr. Aguilar, nephrology. Pt placed on DKA protocol to close anion gap, on D10 for glucose needs while on insulin drip.BNP elevated with clear lungs, no dependent edema, decreased O2 requirement. Give one dose of Lasix 40 mg IV, check CXR in the am, monitor for volume overload while getting DKA fluids.WBC decreased to 15, continue abx for now, d/c after 5 daysSome blood noted in stool, CT with signs of chronic inflammation. Given her dementia, unsure that patient would tolerate bowel prep. GI consulted. Appreciate input on area in stomach with possible neoplasm. Check labs in am 09/28Anion gap closed, off insulin dripElevated lactate, monitorCXR shows severe vascular congestion and pleural fluid, likely related to fluidsgiven for lactic acidosis and metabolic acidosis, pt not in respiratory distress - Lasix 60 mg IV q8 iniated by nephrology - D10 at 30 cc/hr to maintain blood sugarWBC decreased to 13, d/c abx after 5 daysColon with chronic inflammation, no work up per GIWill need EGD to evaluate abnormality in gastric wall once improvedCheck labs in am 09/29Off insulin dripCXR reviewedCont lasixWBC count came down to 10.5On zosynTransfer to the floordw RN, TRUCK DRIVER TEAMSTER, consultantsCXR and telemetry personally reviewedFurther recs per clinical course 10/01/2019 - blood sugars stable on D10W. will switch to D5W - consider endo eval if persistently hypoglycemic - monitor renal function closely - off antibiotics - await stool samples. no diarrhea overnight - PT/OT - start mobilizing. rehab eval - on IV PPI. ? switch to po - will defer to GI - ? need for EGD 10/02/2019 - Back on Heparin SQ - Megace started. - switched to po PPI. - Blood sugars up. will d/c IV fluids at this time and monitor blood sugars closely - observe off antibiotics - mobilize - likely back to SNF in the next 1-2 days 10/03/2019 - will restart IV fluids due to worsening renal function - clinically dry. not taking in any signficant food or liquids - follow creatinine closelly - continue Megace - anticipate back to SNF once renal function more stable - Heparin for VTEtotal time spent with evaluating patient/data as well as providing education/counselling to patient was more than 35 minutes at 0846 RPT #:[id number] OF REPORTPRProgress Erwd2619-40-45W12:43:00G.[id number] for patient inicWJMUWBNFXCYNZA6224-58-00X77:46:[address] [facility] 2019-10-03 07:25:00 [id number] j0+Elkwt5uCmEi8L9 5CYZTcDX16E9spdtQfnY9EcYH88843-14-84A80:25:00 [facility] ([facility])Nephrology Progress NoteREPORT#:[id number] REPORT STATUS: SignedDATE:10/03/19 TIME: 724 PATIENT: MAC AGUSTIN UNIT #: [id number]#: [id number] [address]: [birth year] AGE: 74 SEX: F ATTEND: Joel Myers [facility] AUTHOR: Rabia Aguilar MD * ALL edits or amendments must be made on the electronic/computer document * SubjectiveChief Complaint:AMS/Lactic acidosis/AKIUnable to obtain: patient conditionComments:Patient seen and evaluated, HPI no change from initial, Alert, poor intake per nurse Review of SystemsUnable to obtain due to:Dementia Objective GeneralVS/I O:Vital Signs: Date Time Temp Pulse Resp B/P B/P Pulse O2 O2 Flow FiO2 Mean Ox Delivery Rate 10/02 0442 36.8 66 17 93/59 70.5 99 10/01 2310 36.7 64 16 93/59 0.0 99 10/01 1951 36.3 74 17 105/65 78.1 99 10/01 1603 36.9 68 17 100/54 69.3 99 10/01 1123 36.6 68 17 101/58 72.4 95 Nasal cannula 10/01 0840 Nasal 4.818282 cannula 10/01 0745 36.4 79 17 111/68 82.6 97 24 hour I O ending at 0700: 10/02 0700 10/01 1900 Intake Total 120 270 Output Total Balance 120 270 Intake, Oral 60 Intake, Oral 60 270 Supplement Number 0 Bowel Movements Number 3 Incontinent Voids MedicationsActive Meds + DC'd Last 24 HrsPotassium Chloride 50 ML Q1HR IV (DC) Magnesium Sulfate/Dextrose 100 ML ONCE ONE IV (DC) Pantoprazole 40 MG BID@0600,1800 PO Megestrol Acetate 800 MG DAILY PO Zinc Oxide 1 APPLIC BID TOPICAL Lidocaine 1 EA Q24H TOPICAL Insulin Human Lispro 0 AC HS SUBQ Morphine Sulfate 2 MG Q4H PRN PRN IV Acetaminophen 650 MG Q4H PRN PRN PO Heparin Sodium 5,000 UNIT Q12HR SUBQ Physical ExamGeneral appearance: alert, no acute distressHead/eyes: atraumatic, normocephalicENT: normal noseNeck: supple/no meningismusCardiovascular: normal heart sounds, no rubRespiratory: aerating well, symmetric expansionAbdomen: softGenitourinary: no foleyExtremities: no edemaMusculoskeletal: normal inspectionNeuro/FAST FOOD ATTENDANT: altered mental statusSkin: dry ResultsFindings/Data:Laboratory Tests 10/02 10/02 10/02 10/01 10/01 0826 0520 0520 1949 1558 Chemistry Sodium (134 - 147 mEq/L) 137 Potassium (3.4 - 5.0 mEq/L) 3.6 Chloride (100 - 108 mEq/L) 100 Carbon Dioxide (21 - 33 mEq/L) 28 Anion Gap (0 - 20) 13 BUN (7 - 18 mg/dL) 30 H Creatinine (0.6 - 1.3 mg/dL) 3.0 H Glomerular Filtr Rate (70 - 80) 15.3 L Glucose (70 - 110 mg/dL) 101 POC Glucose (70 - 110 MG/DL) 105 99 80 Calcium (8.0 - 10.5 mg/dL) 8.4 Phosphorus (2.5 - 4.9 MG/DL) 2.8 Magnesium (1.8 - 2.4 mg/dL) 1.70 L B-Natriuretic Peptide (0 - 100 PG/ML) 109.1 H 10/01 10/01 10/01 09/30 09/30 1120 0740 0618 1917 1617 Chemistry Sodium (134 - 147 mEq/L) 137 Potassium (3.4 - 5.0 mEq/L) 3.3 L Chloride (100 - 108 mEq/L) 99 L Carbon Dioxide (21 - 33 mEq/L) 30 Anion Gap (0 - 20) 11 BUN (7 - 18 mg/dL) 26 H Creatinine (0.6 - 1.3 mg/dL) 2.8 H Glomerular Filtr Rate (70 - 80) 16.6 L Glucose (70 - 110 mg/dL) 114 H POC Glucose (70 - 110 MG/DL) 151 H 111 H 218 H 260 H Calcium (8.0 - 10.5 mg/dL) 7.9 L Phosphorus (2.5 - 4.9 MG/DL) 2.6 Magnesium (1.8 - 2.4 mg/dL) 1.70 L 09/30 09/30 09/30 09/29 09/29 1145 0752 0400 2020 1620 Chemistry Sodium (134 - 147 mEq/L) 138 Potassium (3.4 - 5.0 mEq/L) 3.8 Chloride (100 - 108 mEq/L) 99 L Carbon Dioxide (21 - 33 mEq/L) 32 Anion Gap (0 - 20) 11 BUN (7 - 18 mg/dL) 25 H Creatinine (0.6 - 1.3 mg/dL) 2.6 H Glomerular Filtr Rate (70 - 80) 18.1 L Glucose (70 - 110 mg/dL) 174 H POC Glucose (70 - 110 MG/DL) 178 H 178 H 136 H 114 H Calcium (8.0 - 10.5 mg/dL) 8.1 Phosphorus (2.5 - 4.9 MG/DL) 3.2 Magnesium (1.8 - 2.4 mg/dL) 1.80 Laboratory Tests 10/02 10/01 09/30 0520 0618 0400 Hematology WBC (4.5 - 11.0 x10 3/uL) 5.21 5.89 9.66 RBC (3.54 - 5.02 x10 6/uL) 2.78 L 2.77 L 2.98 L Hgb (11.0 - 15.0 g/dL) 8.1 L 8.3 L 8.9 L Hct (33.0 - 45.0 %) 26.6 L 25.5 L 27.9 L MCV (81.0 - 99.0 fL) 95.7 92.1 93.6 MCH (27.0 - 33.0 pg) 29.1 30.0 29.9 MCHC (33.0 - 37.0 g/dL) 30.5 L 32.5 L 31.9 L RDW (11.5 - 14.5 %) 13.6 13.5 13.9 Plt Count (150 - 400 x10 3/uL) 105 L 106 L 71 L MPV (7.0 - 9.0 fL) 12.0 H 11.7 H 12.8 H Neut % (Auto) (56.0 - 77.0 %) 52.4 L 56.6 83.0 H Lymph % (Auto) (14.0 - 32.0 %) 30.3 33.1 H 10.0 L [place] % (Auto) (4.8 - 9.0 %) 14.0 H 8.1 5.7 Eos % (Auto) (0.3 - 3.7 %) 2.5 1.7 0.7 Baso % (Auto) (0.0 - 2.0 %) 0.4 0.2 0.2 Neut # (Auto) (2.0 - 7.6 x10 3/uL) 2.73 3.33 8.01 H Lymph # (Auto) (1.0 - 3.8 x10 3/uL) 1.58 1.95 0.97 L [place] # (Auto) (0.1 - 0.8 x10 3/uL) 0.73 0.48 0.55 Eos # (Auto) (0.0 - 0.2 x10 3/uL) 0.13 0.10 0.07 Baso # (Auto) (0.0 - 0.2 x10 3/uL) 0.02 0.01 0.02 Abs Immat Gran (auto) (0.00 - 0.03 x10 3/uL) 0.02 0.02 0.04 H Add Manual Diff NO NO NO Immature Gran % (0.0 - 2.0 %) 0.4 0.3 0.4 Nucleated RBC % (0 - 0 %) 0.0 0.0 0.0 Nucleated RBCs # (Man) (0.0 - 0.1 x10 3/uL) 0.00 0.00 0.00 Immature Plt Fraction (0.9 - 11.2 %) 5.0 Laboratory Tests 10/01 1558 1120 0740 0618 Chemistry Sodium (134 - 147 mEq/L) 137 Potassium (3.4 - 5.0 mEq/L) 3.3 L Chloride (100 - 108 mEq/L) 99 L Carbon Dioxide (21 - 33 mEq/L) 30 Anion Gap (0 - 20) 11 BUN (7 - 18 mg/dL) 26 H Creatinine (0.6 - 1.3 mg/dL) 2.8 H Glomerular Filtr Rate (70 - 80) 16.6 L Glucose (70 - 110 mg/dL) 114 H POC Glucose (70 - 110 MG/DL) 99 80 151 H 111 H Calcium (8.0 - 10.5 mg/dL) 7.9 L Phosphorus (2.5 - 4.9 MG/DL) 2.6 Magnesium (1.8 - 2.4 mg/dL) 1.70 L 09/30 09/30 09/30 09/30 09/30 1917 1617 1145 0752 0400 Chemistry Sodium (134 - 147 mEq/L) 138 Potassium (3.4 - 5.0 mEq/L) 3.8 Chloride (100 - 108 mEq/L) 99 L Carbon Dioxide (21 - 33 mEq/L) 32 Anion Gap (0 - 20) 11 BUN (7 - 18 mg/dL) 25 H Creatinine (0.6 - 1.3 mg/dL) 2.6 H Glomerular Filtr Rate (70 - 80) 18.1 L Glucose (70 - 110 mg/dL) 174 H POC Glucose (70 - 110 MG/DL) 218 H 260 H 178 H 178 H Calcium (8.0 - 10.5 mg/dL) 8.1 Phosphorus (2.5 - 4.9 MG/DL) 3.2 Magnesium (1.8 - 2.4 mg/dL) 1.80 09/29 1620 1147 0819 Chemistry POC Glucose (70 - 110 MG/DL) 136 H 114 H 162 H B-Natriuretic Peptide (0 - 100 PG/ML) 492.2 H 09/29 09/29 0819 0810 Chemistry Sodium (134 - 147 mEq/L) 140 Potassium (3.4 - 5.0 mEq/L) 3.7 Chloride (100 - 108 mEq/L) 102 Carbon Dioxide (21 - 33 mEq/L) 32 Anion Gap (0 - 20) 10 BUN (7 - 18 mg/dL) 23 H Creatinine (0.6 - 1.3 mg/dL) 2.4 H Glomerular Filtr Rate (70 - 80) 19.8 L Glucose (70 - 110 mg/dL) 155 H POC Glucose (70 - 110 MG/DL) 146 H Calcium (8.0 - 10.5 mg/dL) 7.2 L Phosphorus (2.5 - 4.9 MG/DL) 3.5 Magnesium (1.8 - 2.4 mg/dL) 1.90 Total Bilirubin (<1.5 MG/DL) 0.3 Direct Bilirubin (0.0 - 0.30 MG/DL) 0.10 Indirect Bilirubin (MG/DL) 0.20 AST (15 - 37 IUnit/L) 31 ALT (15 - 65 IUnit/L) 39 Total Alk Phosphatase (20 - 125 IUnit/L) 70 Lactate Dehydrogenase (84 - 246 IUnits/L) 270 H Total Protein (6.4 - 8.2 g/dL) 4.5 L Albumin (3.4 - 5.0 g/dL) 1.90 L Laboratory Tests 09/29 0819 Coagulation INR (0.8 - 1.2) 1.3 H PTT ([place]) (25.0 - 39.5 Seconds) 28.5 PT Patient/Control Mix (9.3 - 12.9 SECONDS) 14.3 H Laboratory Tests 10/01 09/30 09/29 0618 0400 0819 Hematology WBC (4.5 - 11.0 x10 3/uL) 5.89 9.66 RBC (3.54 - 5.02 x10 6/uL) 2.77 L 2.98 L Hgb (11.0 - 15.0 g/dL) 8.3 L 8.9 L Hct (33.0 - 45.0 %) 25.5 L 27.9 L MCV (81.0 - 99.0 fL) 92.1 93.6 MCH (27.0 - 33.0 pg) 30.0 29.9 MCHC (33.0 - 37.0 g/dL) 32.5 L 31.9 L RDW (11.5 - 14.5 %) 13.5 13.9 Plt Count (150 - 400 x10 3/uL) 106 L 71 L MPV (7.0 - 9.0 fL) 11.7 H 12.8 H Neut % (Auto) (56.0 - 77.0 %) 56.6 83.0 H Lymph % (Auto) (14.0 - 32.0 %) 33.1 H 10.0 L [place] % (Auto) (4.8 - 9.0 %) 8.1 5.7 Eos % (Auto) (0.3 - 3.7 %) 1.7 0.7 Baso % (Auto) (0.0 - 2.0 %) 0.2 0.2 Neut # (Auto) (2.0 - 7.6 x10 3/uL) 3.33 8.01 H Lymph # (Auto) (1.0 - 3.8 x10 3/uL) 1.95 0.97 L [place] # (Auto) (0.1 - 0.8 x10 3/uL) 0.48 0.55 Eos # (Auto) (0.0 - 0.2 x10 3/uL) 0.10 0.07 Baso # (Auto) (0.0 - 0.2 x10 3/uL) 0.01 0.02 Abs Immat Gran (auto) (0.00 - 0.03 x10 3/uL) 0.02 0.04 H Add Manual Diff NO NO Immature Gran % (0.0 - 2.0 %) 0.3 0.4 Nucleated RBC % (0 - 0 %) 0.0 0.0 Nucleated RBCs # (Man) (0.0 - 0.1 x10 3/uL) 0.00 0.00 Immature Plt Fraction (0.9 - 11.2 %) 5.0 Haptoglobin (42 - 346 mg/dL) 173 Laboratory Tests 10/01 10/01 10/01 10/01 1949 1558 1120 0740 Chemistry POC Glucose (70 - 110 MG/DL) 99 80 151 H 111 H Diagnosis, Assessment PlanFree Text A P:Patient seen and evaluated, discussed with care team, images and laboratories reviewed.History of dementiaHistory of rheumatoid arthritisHistory of frequent fallsHistory of frequent UTIsHistory of hypertension: Currently hypotensiveHypokalemia: We will supplementSevere hypomagnesemia we will supplementHypocalcemia: We will supplementHypoalbuminemiaSevere lactic acidosis: Etiology, could be related to septic shock, however source is unclear, rule out ischemic bowel, Zosyn, will need to review her medications if patient has been on metformin, lactic acidosis due to metformin in the setting of acute renal failure is a possibility and will do hemodialysis in the setting.Patient has been taking Metformin 1000 BID, kenneth has lactic acidosis that is induced by Metformin, discussed with deysi and ICC/Primary team will proceed with HD4 mental status a lot better, hemodynamically more stable, pressors being weaned off, received 6 hours of hemodialysis yesterday, her last set of blood gas showed a pH of 7.40, PCO2 25, PO2 55, lactic acid 6.2 improving, sodium is 143 potassium 3.6 CO2 20 chloride 101 BUN 13 creatinine 1.1, hemoglobin this morning 9.7, white blood count 19.78 trending down, platelet 156, her clinical picture is consistent with metformin induced lactic acidosis, will do another session of hemodialysis, 4 hours, potassium 3.5, no ultrafiltration, will give 20 mmol of potassium phosphate and expectation of hypophosphatemia during hemodialysis. katie and evaluated during HD, discussed with RN and HD nurse09/28/2019 laboratories from this morning showed sodium 144, potassium 3.3 we will give KCl 20 mEq IV x1, chloride 104, bicarbonate 16, creatinine 1.2, lacticacid 1.2, hemoglobin 8.4, white blood count 15.2, blood culture still negative, anion gap today is 24 with a normal lactic acid etiology unclear will repeat BMP, repeat lactic acid and order serum acetone and do urinalysis to check for urine ketones, also will do a blood gas. Ketones came back as large, This is kenneth starvation ketoacidosis that has been exacerbated by gluconeogenesis inhibition by Metformin and has been reported in the literature, will start Glucose and insulin drip09/29/2019 laboratories from this morning showed sodium 142, potassium 2.7 we will give KCl 20 mEq IV x2, bicarbonate 32 with a chloride of 103 with disappearance of the anion gap correction of anion gap, will DC IV fluid with sodium bicarbonate, will DC insulin drip, changed to insulin sliding scale, start D10 at 30 cc/h since patient is noted nauseated, her chest x-ray showed pulmonary edema, will give IV Lasix 60 mg every 8 hours, give a dose of metolazone, her phosphorus 1.4, will give potassium phosphate 15 mmol IV x1, recheck lab in the afternoon, her lactic acid is 4 up some, not clear why is it elevated, we will recheck in the afternoon, her creatinine is 2.2, not sure whather baseline creatinine, her creatinine is relatively stable since yesterday, will monitor closely, hemoglobin is 7.8, white blood count 13.57 improving.09/30/2019 laboratories from this morning showed sodium 138, potassium 3.5, CO2 34, chloride 100, BUN and creatinine 22 and 2.4 up some likely related to diuretics, albumin 1.8, hemoglobin 7.8, platelet 60, white blood count 10.51 continues to trend down, lactic acid 1.2 within normal limit, urine output [id number] cc with Lasix. Chest x-ray still pending. Progressive thrombocytopenia with progressive decrease in hemoglobin, the latter could be related to fluid resuscitation, multiple blood draws and blood loss during dialysis procedure, however will check LDH, haptoglobin, PT/ PT. 10/01/2019 patient was transferred to the floor, PT PTT are within normal limit, LDH slightly elevated 276, liver function tests are within normal limit, haptoglobin pending, chest x-ray is better from yesterday. Sodium 138 today potassium 3.8, CO2 32, BUN and creatinine 25 and 2.6 trending up likely related to volume contraction. Will check post void resdiual10/03/2019 laboratories from this morning showed sodium 137, potassium 3.6, CO2 28, BUN and creatinine 30 and 3.0 continue to rise, blood pressures on the low side will try midodrine 5 mg p.o. 3 times daily, hypomagnesemia 1.7 we will givemagnesium sulfate 1 g IV x1, hemoglobin 8.1, white blood count 5.21, will check the results of postvoid residual. BNP 109 will increase IVF to 75 cc per h at [address] [facility] #:[id number] OF REPORTPRProgress [id number]:25:00G.[id number] for patient jjuwDTSTVKGTYTDQLF2885-95-77I10:55:42 [facility] 2019-10-02 13:38:00 [id number]+/Wi/s oiXyQYWSusiLKPczY 0+NFU3pYFj5lNIKchXvnYVtVxR2348-41-61S43:38:00 [facility] ([facility])Gastroenterology Progress NoteREPORT#:[id number] REPORT STATUS: SignedDATE:10/02/19 TIME: 1338 PATIENT: MAC AGUSTIN UNIT #: [id number]#: [id number] [address] [birth year] AGE: 74 SEX: F ATTEND: Joel Myers [facility] AUTHOR: Arian Anderson * ALL edits or amendments must be made on the electronic/computer document * SubjectiveChief Complaint:weakHPI:No overt GI bleeding. Tolerating some diet but with poor appetite. Review of SystemsUnable to obtain due to:AMS Objective GeneralVS/I O:Last Documented: Result Date Time Pulse Ox 95 10/01 1123 B/P 101/58 10/01 1123 B/P Mean 72.4 10/01 1123 O2 Delivery Nasal cannula 10/01 1123 Temp 36.6 10/01 1123 Pulse 68 10/01 1123 Resp 17 10/01 1123 O2 Flow Rate 2.380470 09/30 1930 24 hour I O ending at 0700: 10/01 0700 09/30 1900 Intake Total 1710.00 20 Output Total Balance 1710.00 20 Intake, IV 720.00 Intake, Oral 760 Intake, Oral 230 20 Supplement Number 1 Bowel Movements Number 3 Incontinent Voids Patient 75.75 kg Weight Weight Bed scale Measurement Method Patient Weight Weight (lb): 167Weight (oz): 15.88Weight (kg): 75.75 Medications:Active Meds + DC'd Last 24 HrsPotassium Chloride 50 ML Q1HR IV (DC) Magnesium Sulfate/Dextrose 100 ML ONCE ONE IV (DC) Pantoprazole 40 MG BID@0600,1800 PO Megestrol Acetate 800 MG DAILY PO Dextrose/Water 1,000 ML .Q24H IV (DC) Zinc Oxide 1 APPLIC BID TOPICAL Lidocaine 1 EA Q24H TOPICAL Insulin Human Lispro 0 AC HS SUBQ Morphine Sulfate 2 MG Q4H PRN PRN IV Acetaminophen 650 MG Q4H PRN PRN PO Heparin Sodium 5,000 UNIT Q12HR SUBQ Physical ExamGeneral appearance: altered mental status, no acute distressHEENT: moist mucosal membranesCardiovascular: normal S1/H7Seljoxtymnc: clear to auscultationAbdomen: non-tender, normal bowel sounds, soft, no distentionExtremities: edemaMusculoskeletal: normal inspectionSkin: dry ResultsFindings/Data:Laboratory Tests 10/02/19617:[Embedded Image Not Available]Laboratory Tests 10/01 10/01 10/01 09/30 09/30 1120 0740 0618 1917 1617 Chemistry Sodium (134 - 147 mEq/L) 137 Potassium (3.4 - 5.0 mEq/L) 3.3 L Chloride (100 - 108 mEq/L) 99 L Carbon Dioxide (21 - 33 mEq/L) 30 Anion Gap (0 - 20) 11 BUN (7 - 18 mg/dL) 26 H Creatinine (0.6 - 1.3 mg/dL) 2.8 H Glomerular Filtr Rate (70 - 80) 16.6 L Glucose (70 - 110 mg/dL) 114 H POC Glucose (70 - 110 MG/DL) 151 H 111 H 218 H 260 H Calcium (8.0 - 10.5 mg/dL) 7.9 L Phosphorus (2.5 - 4.9 MG/DL) 2.6 Magnesium (1.8 - 2.4 mg/dL) 1.70 L Laboratory Tests 10/01 617 Hematology WBC (4.5 - 11.0 x10 3/uL) 5.89 RBC (3.54 - 5.02 x10 6/uL) 2.77 L Hgb (11.0 - 15.0 g/dL) 8.3 L Hct (33.0 - 45.0 %) 25.5 L MCV (81.0 - 99.0 fL) 92.1 MCH (27.0 - 33.0 pg) 30.0 MCHC (33.0 - 37.0 g/dL) 32.5 L RDW (11.5 - 14.5 %) 13.5 Plt Count (150 - 400 x10 3/uL) 106 L MPV (7.0 - 9.0 fL) 11.7 H Neut % (Auto) (56.0 - 77.0 %) 56.6 Lymph % (Auto) (14.0 - 32.0 %) 33.1 H [place] % (Auto) (4.8 - 9.0 %) 8.1 Eos % (Auto) (0.3 - 3.7 %) 1.7 Baso % (Auto) (0.0 - 2.0 %) 0.2 Neut # (Auto) (2.0 - 7.6 x10 3/uL) 3.33 Lymph # (Auto) (1.0 - 3.8 x10 3/uL) 1.95 [place] # (Auto) (0.1 - 0.8 x10 3/uL) 0.48 Eos # (Auto) (0.0 - 0.2 x10 3/uL) 0.10 Baso # (Auto) (0.0 - 0.2 x10 3/uL) 0.01 Abs Immat Gran (auto) (0.00 - 0.03 x10 3/uL) 0.02 Add Manual Diff NO Immature Gran % (0.0 - 2.0 %) 0.3 Nucleated RBC % (0 - 0 %) 0.0 Nucleated RBCs # (Man) (0.0 - 0.1 x10 3/uL) 0.00 Immature Plt Fraction (0.9 - 11.2 %) 5.0 Results: vital signs stable Diagnosis, Assessment PlanProblem List/A P: 1. Antibiotic-associated diarrhea Free Text A P:IMPRESSION: A 74-year-old female with a host of comorbidities, especiallyadvanced dementia, presented with failure to thrive kind of situation, labs weresignificantly abnormal with electrolyte disbalance, acute renal failure,metabolic acidosis and underlying sepsis from urinary tract infection. UTI isbeing treated with IV antibiotic. She is responding. The CT finding of colonicwall thickening as well as gastric distention with gastric wall thickening is anincidental finding. PLAN:1. Colonic wall thickening is not concerning. This diffuse colonic wall edemacould be due to underlying sepsis and hypoalbuminemia. This does not warrantany further investigation at this time. It seems to be self-limiting.2. Gastric distention, gastric wall thickening certainly needs furtherevaluation with direct visualization. Therefore, upper endoscopy should beconsidered when the patient is medically stable and has recovered well from hercurrent acute illness. 10/01/19- C diff ordered and pending collection. Diarrhea resolved. - Broaden stool studies. Pending collection.- PPI PO- Consider Megace if PO intake does not improve- Supportive care- Outpatient EGD and colonoscopy given current COVID restrictions and no evidence of active bleeding at 1409 RPT #:[id number] OF REPORTPRProgress [id number]:38:00G.[id number] for patient skfzIWCIFGHDBEVNJY4717-31-11V00:09:[address] [facility] 2019-10-02 13:38:00 [id number]+ nbHVRAOv9yv/mEKjt VVSUhq33B89G5Og3FUg3/66yT/0447-62-10Y96:38:00 [facility])Gastroenterology Progress NoteREPORT#:[id number] REPORT STATUS: SignedDATE:10/02/19 TIME: 1337 PATIENT: MAC AGUSTIN UNIT #: [id number]#: [id number] [address] [birth year] AGE: 74 SEX: F ATTEND: Joel Myers [facility] AUTHOR: Arian Anderson * ALL edits or amendments must be made on the electronic/computer document * Arian Anderson 10/02/19 1338:SubjectiveChief Complaint:weakHPI:No overt GI bleeding. Tolerating some diet but with poor appetite. Review of SystemsUnable to obtain due to:AMS Objective GeneralVS/I O:Last Documented: Result Date Time Pulse Ox 95 10/01 1123 B/P 101/58 10/01 1123 B/P Mean 72.4 10/01 1123 O2 Delivery Nasal cannula 10/01 1123 Temp 36.6 10/01 1123 Pulse 68 10/01 1123 Resp 17 10/01 1123 O2 Flow Rate 2.764163 09/30 1930 24 hour I O ending at 0700: 10/01 0700 09/30 1900 Intake Total 1710.00 20 Output Total Balance 1710.00 20 Intake, IV 720.00 Intake, Oral 760 Intake, Oral 230 20 Supplement Number 1 Bowel Movements Number 3 Incontinent Voids Patient 75.75 kg Weight Weight Bed scale Measurement Method Patient Weight Weight (lb): 167Weight (oz): 15.88Weight (kg): 75.75 Medications:Active Meds + DC'd Last 24 HrsPotassium Chloride 50 ML Q1HR IV (DC) Magnesium Sulfate/Dextrose 100 ML ONCE ONE IV (DC) Pantoprazole 40 MG BID@0600,1800 PO Megestrol Acetate 800 MG DAILY PO Dextrose/Water 1,000 ML .Q24H IV (DC) Zinc Oxide 1 APPLIC BID TOPICAL Lidocaine 1 EA Q24H TOPICAL Insulin Human Lispro 0 AC HS SUBQ Morphine Sulfate 2 MG Q4H PRN PRN IV Acetaminophen 650 MG Q4H PRN PRN PO Heparin Sodium 5,000 UNIT Q12HR SUBQ Physical ExamGeneral appearance: altered mental status, no acute distressHEENT: moist mucosal membranesCardiovascular: normal S1/R7Sibxuxkhyxh: clear to auscultationAbdomen: non-tender, normal bowel sounds, soft, no distentionExtremities: edemaMusculoskeletal: normal inspectionSkin: dry ResultsFindings/Data:Laboratory Tests 10/02/19 0618:[Embedded Image Not Available]Laboratory Tests 10/01 10/01 10/01 09/30 09/30 1120 0740 0618 1917 1617 Chemistry Sodium (134 - 147 mEq/L) 137 Potassium (3.4 - 5.0 mEq/L) 3.3 L Chloride (100 - 108 mEq/L) 99 L Carbon Dioxide (21 - 33 mEq/L) 30 Anion Gap (0 - 20) 11 BUN (7 - 18 mg/dL) 26 H Creatinine (0.6 - 1.3 mg/dL) 2.8 H Glomerular Filtr Rate (70 - 80) 16.6 L Glucose (70 - 110 mg/dL) 114 H POC Glucose (70 - 110 MG/DL) 151 H 111 H 218 H 260 H Calcium (8.0 - 10.5 mg/dL) 7.9 L Phosphorus (2.5 - 4.9 MG/DL) 2.6 Magnesium (1.8 - 2.4 mg/dL) 1.70 L Laboratory Tests 10/01 617 Hematology WBC (4.5 - 11.0 x10 3/uL) 5.89 RBC (3.54 - 5.02 x10 6/uL) 2.77 L Hgb (11.0 - 15.0 g/dL) 8.3 L Hct (33.0 - 45.0 %) 25.5 L MCV (81.0 - 99.0 fL) 92.1 MCH (27.0 - 33.0 pg) 30.0 MCHC (33.0 - 37.0 g/dL) 32.5 L RDW (11.5 - 14.5 %) 13.5 Plt Count (150 - 400 x10 3/uL) 106 L MPV (7.0 - 9.0 fL) 11.7 H Neut % (Auto) (56.0 - 77.0 %) 56.6 Lymph % (Auto) (14.0 - 32.0 %) 33.1 H [place] % (Auto) (4.8 - 9.0 %) 8.1 Eos % (Auto) (0.3 - 3.7 %) 1.7 Baso % (Auto) (0.0 - 2.0 %) 0.2 Neut # (Auto) (2.0 - 7.6 x10 3/uL) 3.33 Lymph # (Auto) (1.0 - 3.8 x10 3/uL) 1.95 [place] # (Auto) (0.1 - 0.8 x10 3/uL) 0.48 Eos # (Auto) (0.0 - 0.2 x10 3/uL) 0.10 Baso # (Auto) (0.0 - 0.2 x10 3/uL) 0.01 Abs Immat Gran (auto) (0.00 - 0.03 x10 3/uL) 0.02 Add Manual Diff NO Immature Gran % (0.0 - 2.0 %) 0.3 Nucleated RBC % (0 - 0 %) 0.0 Nucleated RBCs # (Man) (0.0 - 0.1 x10 3/uL) 0.00 Immature Plt Fraction (0.9 - 11.2 %) 5.0 Results: vital signs stable Diagnosis, Assessment PlanProblem List/A P: 1. Antibiotic-associated diarrhea Free Text A P:IMPRESSION: A 74-year-old female with a host of comorbidities, especiallyadvanced dementia, presented with failure to thrive kind of situation, labs weresignificantly abnormal with electrolyte disbalance, acute renal failure,metabolic acidosis and underlying sepsis from urinary tract infection. UTI isbeing treated with IV antibiotic. She is responding. The CT finding of colonicwall thickening as well as gastric distention with gastric wall thickening is anincidental finding. PLAN:1. Colonic wall thickening is not concerning. This diffuse colonic wall edemacould be due to underlying sepsis and hypoalbuminemia. This does not warrantany further investigation at this time. It seems to be self-limiting.2. Gastric distention, gastric wall thickening certainly needs furtherevaluation with direct visualization. Therefore, upper endoscopy should beconsidered when the patient is medically stable and has recovered well from hercurrent acute illness. 10/01/19- C diff ordered and pending collection. Diarrhea resolved. - Broaden stool studies. Pending collection.- PPI PO- Consider Megace if PO intake does not improve- Supportive care- Outpatient EGD and colonoscopy given current COVID restrictions and no evidence of active bleeding Coleman Sr V. 11/07/19 0901:Attestations Physician AttestationAgree w/findings plan:Patient seen and examined. 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 at 1409 RPT #:[id number] OF REPORTPRProgress [id number]:38:00G.[id number] for patient qjasGMKQMLBFPPYCVX6842-85-25T67:01:[address] [facility] 2019-10-02 13:38:00 [id number]/0W9FTI1Pwv ueWFqITXqBqIitef1 O2WQLRYkxZ3I2KvO+qkCK/rfce3236-20-85Z67:38:00 [facility] Progress NoteREPORT#:[id number] REPORT STATUS: SignedDATE:10/02/19 TIME: 8 PATIENT: MAC AGUSTIN UNIT #: [id number]#: [id number] [address] [birth year] AGE: 74 SEX: F ATTEND: Joel Myers [facility] AUTHOR: Arian Anderson ASSOCIATE THEATRE PROFESSOR * ALL edits or amendments must be made on the electronic/computer document * Arian Andersno 10/02/19 1338:SubjectiveChief Complaint:weakHPI:No overt GI bleeding. Tolerating some diet but with poor appetite. Review of SystemsUnable to obtain due to:AMS Objective GeneralVS/I O:Last Documented: Result Date Time Pulse Ox 95 10/01 1123 B/P 101/58 10/01 1123 B/P Mean 72.4 10/01 1123 O2 Delivery Nasal cannula 10/01 112 Temp 36.6 10/01 1123 Pulse 68 10/01 1123 Resp 17 10/01 1123 O2 Flow Rate 2.499177 09/30 1930 24 hour I O ending at 0700: 10/01 0700 09/30 1900 Intake Total 1710.00 20 Output Total Balance 1710.00 20 Intake, IV 720.00 Intake, Oral 760 Intake, Oral 230 20 Supplement Number 1 Bowel Movements Number 3 Incontinent Voids Patient 75.75 kg Weight Weight Bed scale Measurement Method Patient Weight Weight (lb): 167Weight (oz): 15.88Weight (kg): 75.75 Medications:Active Meds + DC'd Last 24 HrsPotassium Chloride 50 ML Q1HR IV (DC) Magnesium Sulfate/Dextrose 100 ML ONCE ONE IV (DC) Pantoprazole 40 MG BID@0600,1800 PO Megestrol Acetate 800 MG DAILY PO Dextrose/Water 1,000 ML .Q24H IV (DC) Zinc Oxide 1 APPLIC BID TOPICAL Lidocaine 1 EA Q24H TOPICAL Insulin Human Lispro 0 AC HS SUBQ Morphine Sulfate 2 MG Q4H PRN PRN IV Acetaminophen 650 MG Q4H PRN PRN PO Heparin Sodium 5,000 UNIT Q12HR SUBQ Physical ExamGeneral appearance: altered mental status, no acute distressHEENT: moist mucosal membranesCardiovascular: normal S1/T1Qftskgggyrg: clear to auscultationAbdomen: non-tender, normal bowel sounds, soft, no distentionExtremities: edemaMusculoskeletal: normal inspectionSkin: dry ResultsFindings/Data:Laboratory Tests 10/02/19 0618:[Embedded Image Not Available]Laboratory Tests 10/01 10/01 10/01 09/30 09/30 1120 0740 0618 1917 1617 Chemistry Sodium (134 - 147 mEq/L) 137 Potassium (3.4 - 5.0 mEq/L) 3.3 L Chloride (100 - 108 mEq/L) 99 L Carbon Dioxide (21 - 33 mEq/L) 30 Anion Gap (0 - 20) 11 BUN (7 - 18 mg/dL) 26 H Creatinine (0.6 - 1.3 mg/dL) 2.8 H Glomerular Filtr Rate (70 - 80) 16.6 L Glucose (70 - 110 mg/dL) 114 H POC Glucose (70 - 110 MG/DL) 151 H 111 H 218 H 260 H Calcium (8.0 - 10.5 mg/dL) 7.9 L Phosphorus (2.5 - 4.9 MG/DL) 2.6 Magnesium (1.8 - 2.4 mg/dL) 1.70 L Laboratory Tests 10/01 0618 Hematology WBC (4.5 - 11.0 x10 3/uL) 5.89 RBC (3.54 - 5.02 x10 6/uL) 2.77 L Hgb (11.0 - 15.0 g/dL) 8.3 L Hct (33.0 - 45.0 %) 25.5 L MCV (81.0 - 99.0 fL) 92.1 MCH (27.0 - 33.0 pg) 30.0 MCHC (33.0 - 37.0 g/dL) 32.5 L RDW (11.5 - 14.5 %) 13.5 Plt Count (150 - 400 x10 3/uL) 106 L MPV (7.0 - 9.0 fL) 11.7 H Neut % (Auto) (56.0 - 77.0 %) 56.6 Lymph % (Auto) (14.0 - 32.0 %) 33.1 H [place] % (Auto) (4.8 - 9.0 %) 8.1 Eos % (Auto) (0.3 - 3.7 %) 1.7 Baso % (Auto) (0.0 - 2.0 %) 0.2 Neut # (Auto) (2.0 - 7.6 x10 3/uL) 3.33 Lymph # (Auto) (1.0 - 3.8 x10 3/uL) 1.95 [place] # (Auto) (0.1 - 0.8 x10 3/uL) 0.48 Eos # (Auto) (0.0 - 0.2 x10 3/uL) 0.10 Baso # (Auto) (0.0 - 0.2 x10 3/uL) 0.01 Abs Immat Gran (auto) (0.00 - 0.03 x10 3/uL) 0.02 Add Manual Diff NO Immature Gran % (0.0 - 2.0 %) 0.3 Nucleated RBC % (0 - 0 %) 0.0 Nucleated RBCs # (Man) (0.0 - 0.1 x10 3/uL) 0.00 Immature Plt Fraction (0.9 - 11.2 %) 5.0 Results: vital signs stable Diagnosis, Assessment PlanProblem List/A P: 1. Antibiotic-associated diarrhea Free Text A P:IMPRESSION: A 74-year-old female with a host of comorbidities, especiallyadvanced dementia, presented with failure to thrive kind of situation, labs weresignificantly abnormal with electrolyte disbalance, acute renal failure,metabolic acidosis and underlying sepsis from urinary tract infection. UTI isbeing treated with IV antibiotic. She is responding. The CT finding of colonicwall thickening as well as gastric distention with gastric wall thickening is anincidental finding. PLAN:1. Colonic wall thickening is not concerning. This diffuse colonic wall edemacould be due to underlying sepsis and hypoalbuminemia. This does not warrantany further investigation at this time. It seems to be self-limiting.2. Gastric distention, gastric wall thickening certainly needs furtherevaluation with direct visualization. Therefore, upper endoscopy should beconsidered when the patient is medically stable and has recovered well from hercurrent acute illness. 10/01/19- C diff ordered and pending collection. Diarrhea resolved. - Broaden stool studies. Pending collection.- PPI PO- Consider Megace if PO intake does not improve- Supportive care- Outpatient EGD and colonoscopy given current COVID restrictions and no evidence of active bleeding Coleman Sr V. 11/07/19 0901:Attestations Physician AttestationAgree w/findings plan:Patient seen and examined. 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 at 1409 at 0914 RPT #:[id number] OF REPORTPRProgress Tgmu4603-34-59S16:38:00G.[id number] for patient nnbaIAMRBPISQUPOIA9545-97-38B09:14:31 [facility] 2019-10-02 09:54:00 [id number] ppApcT03UAhXPH0py D4q//g/0CNcrZRC/RajMcc2cgU7387-97-65E96:54:00 [facility] Progress NoteREPORT#:[id number] REPORT STATUS: SignedDATE:10/02/19 TIME: 09 PATIENT: MAC AGUSTIN UNIT #: [id number]#: [id number] [address] [birth year] AGE: 74 SEX: F ATTEND: Joel Myers [facility] AUTHOR: Lucy Ayon PA-C * ALL edits or amendments must be made on the electronic/computer document * SubjectiveChief complaint:Pt seen in bed. No complaints. Sleeping and wakes on verbal commands. No hungry this a.m. yet. No complaints of cp, sob, abdominal pain,nasuea,limb pain. Objective GeneralVS:Vital Signs: Date Time Temp Pulse Resp B/P B/P Pulse O2 O2 Flow FiO2 Mean Ox Delivery Rate 10/01 0745 97.5 79 17 111/68 82.6 97 10/01 0444 97.7 68 15 96/64 74.7 93 09/30 2325 98.6 69 18 103/67 79.0 99 09/30 1930 Nasal 2.916195 cannula 09/30 1919 97.7 76 18 94/62 73.1 97 09/30 1525 98.1 72 18 109/70 82.9 97 09/30 1146 97.7 69 18 107/71 83.0 97 Patient Weight Weight (lb): 167Weight (oz): 15.88Weight (kg): 75.75 Medications:Active Meds + DC'd Last 24 HrsPotassium Chloride 50 ML Q1HR IV Magnesium Sulfate/Dextrose 100 ML ONCE ONE IV (CKD) Pantoprazole 40 MG BID@0600,1800 PO Megestrol Acetate 800 MG DAILY PO Dextrose/Water 1,000 ML .Q24H IV (DC) Zinc Oxide 1 APPLIC BID TOPICAL Lidocaine 1 EA Q24H TOPICAL Insulin Human Lispro 0 AC HS SUBQ Pantoprazole Sodium 40 MG DAILY IV (DC) Sodium Chloride 10 ML ASDIR PRN IV (DC) Morphine Sulfate 2 MG Q4H PRN PRN IV Acetaminophen 650 MG Q4H PRN PRN PO Heparin Sodium 5,000 UNIT Q12HR SUBQ Physical ExamGeneral appearance: sleeping comfortably (wakes on command )Psych: normal affectHEENT: anicteric, mucosal membranes moist, sclera clearNeck: supple, no JVDCardiovascular: regular rate rhythm, S1/R3Jonxfkenqcf: aerating well, clear bilaterallyAbdomen: bowel sounds present, non-distended, soft, soft, non-tenderSkin: dry, intactMusculoskeletal - general: Musculoskeletal - general: joints normal, range of motion normal, no swellingNeuro/FAST FOOD ATTENDANT: altered mental status, alert, no motor deficits, no sensory deficits Functional ProgressFunctional progress: Patient/Family Goals: TO GET STRONGER. Rehabilitation Potential: Good for goals Discharge Plan: POST ACUTE THERAPY Plan of Care, Type: Physical Therapy Treatment Details: Y Comment: HIGH COMPLEX PT EVAL DUE TO MUL. COMORBIDITIES AND FUNCTIONAL PERFORMANCE DEFICITS. PATIENT WILL BENEFIT WITH ACUTE [employer] TO ADDRESS MOBILITY LIMITATIONS. If this is the patient's last treatment, this entry serves as the discharge summary: Y Start Time: 1015 Stop Time: 1025 Eval Time (minutes): 10 Completed by: Leo Bates MUSCULOSKELETAL MUSCULOSKELETAL Items determined to be OUTSIDE the Functional Limits are as follows: RANGE OF MOTION (Degrees): Active unless otherwise noted UPPER EXTREMITIES: Y Upper Extremity Measurements and Comments: BUE AROM WFL LOWER EXTREMITIES: Y Lower Extremity Measurements and Comments: BLE AAROM TO PROM WFL, AROM LIMITED DUE TO WEAKNESS SPINE: Y Spine Measurements and Comments: WFL Items determined to be OUTSIDE the Functional Limits are as follows: OBSERVED MUSCLE STRENGTH: Y RIGHT UPPER EXTREMITY: Y RUE Muscle Strength and Comments: GROSSLY 3/5 LEFT UPPER EXTREMITY: Y LUE Muscle Strength and Comments: GROSSLY 3/5 RIGHT LOWER EXTREMITY: Y RLE Muscle Strength and Comments: GROSSLY 2/5 LEFT LOWER EXTREMITY: Y LLE Muscle Strength and Comments: GROSSLY 2/5 Specific Muscle Testing Comments / Specific Comments: Generalized Weakness NEUROLOGICAL NEUROLOGICAL Items determined to be OUTSIDE the Functional Limits are as follows: Items determined to be OUTSIDE the Functional Limits are as follows: Items determined to be OUTSIDE the Functional Limits are as follows: SENSATION LIGHT TOUCH SENSATION Items determined to be OUTSIDE the Functional Limits are as follows: FUNCTIONAL MOBILITY FUNCTIONAL MOBILITY Items determined to be OUTSIDE the Functional Limits are as follows: BED MOBILITY: Y Rolling Right/Left: Maximal Assistance Supine to Sit: Maximal Assistance Sit to Supine: Maximal Assistance Scooting in bed: Maximal Assistance Bed Mob.Cmt: TACTILE CUES FOR UPPER BODY ASSIST AND BLE LIFT AND LOWER. INCREASE TIME SITTING AT EOB DUE TO SLOW PACE AND FOR STABILITY. LATERAL SCOOTING PERFORMED TOWARDS HEAD OF BED AT MAX ASSISTANCE. PATIENT UNABLE TO COMPLETE FULL STANDING WHEN ATTEMPTED. TRANSFERS: N BALANCE: Y Static Standing: Not Tested Dynamic Standing: Not Tested Static Sitting: Moderate Assistance Dynamic Sitting: Moderate Assistance Balance Cmt: SITTING BALANCE FAIR ATTEMPTED STANDING, PATIENT UNABLE Items determined to be OUTSIDE the Functional Limits are as follows: GAIT PATTERN: N VISIUAL MANUAL MUSCLE TEST RIGHT UPPER EXTREMITY: Y Right Upper Extremity Measurements and Cmts: SH 2+/5, DIST 3/5 LEFT UPPER EXTREMITY: Y Left Upper Extremity Measurements and Cmt: SH 2+/5, DIST 3/5 Fine Motor Coordination: Normal Gross Motor Coordination: Normal RANGE OF MOTION (Degrees): Active unless otherwise noted RIGHT UPPER EXTREMITY ROM: Y RUE ROM Measurements and Cmts: SH 1/2, DIST WFL LEFT UPPER EXTREMITY ROM: Y LUE ROM Measurements and Cmts: SH 1/2, DIST WFL FUNCTIONAL MOBILITY FUNCTIONAL MOBILITY Items determined to be outside Functional Limits are as follows: Rolling Right: Maximal Assistance Rolling Left: Maximal Assistance Supine to Sit: Dependent Functional Activity Tolerance TRANSFERS BALANCE ACTIVITIES OF DAILY LIVING ACTIVITIES OF DAILY LIVING Items determined to be outside Functional Limits areas follows: Upper Body Dressing: Moderate Assistance Lower Body Dressing: Dependent Hygiene/Grooming: Moderate Assistance Feeding: Supervision or Set-up Toileting: Dependent NEUROLOGICAL NEUROLOGICAL Items determined to be outside Functional ResultsFindings/Data:Laboratory Tests: 10/01 09/30 09/30 09/30 0618 1917 1617 1145 Chemistry Sodium (134 - 147 mEq/L) 137 Potassium (3.4 - 5.0 mEq/L) 3.3 L Chloride (100 - 108 mEq/L) 99 L Carbon Dioxide (21 - 33 mEq/L) 30 Anion Gap (0 - 20) 11 BUN (7 - 18 mg/dL) 26 H Creatinine (0.6 - 1.3 mg/dL) 2.8 H Glomerular Filtr Rate (70 - 80) 16.6 L Glucose (70 - 110 mg/dL) 114 H POC Glucose (70 - 110 MG/DL) 218 H 260 H 178 H Calcium (8.0 - 10.5 mg/dL) 7.9 L Phosphorus (2.5 - 4.9 MG/DL) 2.6 Magnesium (1.8 - 2.4 mg/dL) 1.70 L Hematology WBC (4.5 - 11.0 x10 3/uL) 5.89 RBC (3.54 - 5.02 x10 6/uL) 2.77 L Hgb (11.0 - 15.0 g/dL) 8.3 L Hct (33.0 - 45.0 %) 25.5 L MCV (81.0 - 99.0 fL) 92.1 MCH (27.0 - 33.0 pg) 30.0 MCHC (33.0 - 37.0 g/dL) 32.5 L RDW (11.5 - 14.5 %) 13.5 Plt Count (150 - 400 x10 3/uL) 106 L MPV (7.0 - 9.0 fL) 11.7 H Neut % (Auto) (56.0 - 77.0 %) 56.6 Lymph % (Auto) (14.0 - 32.0 %) 33.1 H [place] % (Auto) (4.8 - 9.0 %) 8.1 Eos % (Auto) (0.3 - 3.7 %) 1.7 Baso % (Auto) (0.0 - 2.0 %) 0.2 Neut # (Auto) (2.0 - 7.6 x10 3/uL) 3.33 Lymph # (Auto) (1.0 - 3.8 x10 3/uL) 1.95 [place] # (Auto) (0.1 - 0.8 x10 3/uL) 0.48 Eos # (Auto) (0.0 - 0.2 x10 3/uL) 0.10 Baso # (Auto) (0.0 - 0.2 x10 3/uL) 0.01 Abs Immat Gran (auto) (0.00 - 0.03 x10 3/uL) 0.02 Add Manual Diff NO Immature Gran % (0.0 - 2.0 %) 0.3 Nucleated RBC % (0 - 0 %) 0.0 Nucleated RBCs # (Man) (0.0 - 0.1 x10 3/uL) 0.00 Immature Plt Fraction (0.9 - 11.2 %) 5.0 Diagnosis, Assessment PlanProblem List/A P: 1. Acute renal failure 2. Physical deconditioning 3. Hypomagnesemia 4. Lactic acidosis 5. DKA (diabetic ketoacidoses) 6. Metabolic acidosis 7. Gastric distention Free Text A P:74 years old female with past medical history significant for Alzheimer's dementia, behavioral disturbance, hypertension, type 2 diabetes mellitus, migraine headaches, anxiety disorder, bowel and bladder incontinence, rheumatoidarthritis, frequent UTI. She was admitted secondary to severe lactic acidosis, metabolic acidosis with anion gap secondary to metformin and dehydration. Started on hemodialysis secondary to acute renal failure and lactic acidosis with multiple electrolyte abnormalities including hypokalemia, hypo-Juan anemia, hypocalcemia, hypoalbuminemia. Patient then developed acute pulmonary vascular congestion is being diuresed. Plan: Physical therapy, Occupational Therapy and speech therapy have been consulted. Due to patient being an unreliable historian and moderate dementia she would benefit from returning to snf facility following her [facility]. I discussed with the patient's ejdkiqgt-mn-fbk who is on the chart as 1 of the contacts and she states their wish is for her to return to [facility] once medically cleared. 10/01: Encourage particpation with therpay.C. Diff not collected. Pt hgb stable.SNF once ready to be discharged. Rehab attestation:Face to face exam completed. Treatment plan discussed with patient. at 1011 RPT #:[id number] OF REPORTPRProgress Wuhf2023-71-18E74:54:00G.[id number] for patient opouAHMMELZUMMPBVD2957-79-75D42:12:[address] [facility] 2019-10-02 07:20:00 [id number]+6Pcb5w/KfC/bTBcNf tJKls3HyeDKI9OOdl JVqRB23UVFUMQTcGwKUVE3oP9c4993-67-21H22:20:00 [facility] ([facility])Nephrology Progress NoteREPORT#:[id number] REPORT STATUS: SignedDATE:10/02/19 TIME: 719 PATIENT: MAC AGUSTIN UNIT #: [id number]#: [id number] [address] [birth year] AGE: 74 SEX: F ATTEND: Joel Myers [facility] AUTHOR: Rabia Aguilar MD * ALL edits or amendments must be made on the electronic/computer document * SubjectiveChief Complaint:AMS/Lactic acidosis/AKIUnable to obtain: dementiaComments:Patient seen and evaluated, HPI no change from initial, feels okay Review of SystemsUnable to obtain due to:Dementia Objective GeneralVS/I O:Vital Signs: Date Time Temp Pulse Resp B/P B/P Pulse O2 O2 Flow FiO2 Mean Ox Delivery Rate 10/01 0444 36.5 68 15 96/64 74.7 93 09/30 2325 37.0 69 18 103/67 79.0 99 09/30 1930 Nasal 2.116313 cannula 09/30 1919 36.5 76 18 94/62 73.1 97 09/30 1525 36.7 72 18 109/70 82.9 97 09/30 1146 36.5 69 18 107/71 83.0 97 09/30 0753 36.4 66 18 101/67 78.3 95 09/30 0730 Nasal 2.850855 cannula 24 hour I O ending at 0700: 10/01 0700 09/30 1900 Intake Total 1710.00 20 Output Total Balance 1710.00 20 Intake, IV 720.00 Intake, Oral 760 Intake, Oral 230 20 Supplement Number 1 Bowel Movements Number 3 Incontinent Voids Patient 75.75 kg Weight Weight Bed scale Measurement Method MedicationsActive Meds + DC'd Last 24 HrsPantoprazole 40 MG BID@0600,1800 PO Megestrol Acetate 800 MG DAILY PO Dextrose/Water 1,000 ML .Q24H IV (DC) Zinc Oxide 1 APPLIC BID TOPICAL Lidocaine 1 EA Q24H TOPICAL Insulin Human Lispro 0 AC HS SUBQ Pantoprazole Sodium 40 MG DAILY IV (DC) Sodium Chloride 10 ML ASDIR PRN IV (DC) Dextrose/Water 250 ML .Q8H20M IV (DC) Morphine Sulfate 2 MG Q4H PRN PRN IV Acetaminophen 650 MG Q4H PRN PRN PO Heparin Sodium 5,000 UNIT Q12HR SUBQ Physical ExamGeneral appearance: alert, no acute distressHead/eyes: atraumatic, normocephalicENT: normal noseNeck: supple/no meningismusCardiovascular: normal heart sounds, no rubRespiratory: aerating well, symmetric expansionAbdomen: softGenitourinary: ballard, urineExtremities: no edemaMusculoskeletal: normal inspectionNeuro/FAST FOOD ATTENDANT: altered mental statusSkin: dry ResultsFindings/Data:Laboratory Tests 09/30 09/30 09/30 09/30 09/30 1917 1617 1145 0752 0400 Chemistry Sodium (134 - 147 mEq/L) 138 Potassium (3.4 - 5.0 mEq/L) 3.8 Chloride (100 - 108 mEq/L) 99 L Carbon Dioxide (21 - 33 mEq/L) 32 Anion Gap (0 - 20) 11 BUN (7 - 18 mg/dL) 25 H Creatinine (0.6 - 1.3 mg/dL) 2.6 H Glomerular Filtr Rate (70 - 80) 18.1 L Glucose (70 - 110 mg/dL) 174 H POC Glucose (70 - 110 MG/DL) 218 H 260 H 178 H 178 H Calcium (8.0 - 10.5 mg/dL) 8.1 Phosphorus (2.5 - 4.9 MG/DL) 3.2 Magnesium (1.8 - 2.4 mg/dL) 1.80 09/29 1620 1147 0819 Chemistry POC Glucose (70 - 110 MG/DL) 136 H 114 H 162 H B-Natriuretic Peptide (0 - 100 PG/ML) 492.2 H 09/2920 0819 0810 0531 0531 Chemistry Sodium (134 - 147 mEq/L) 140 138 Potassium (3.4 - 5.0 mEq/L) 3.7 3.5 Chloride (100 - 108 mEq/L) 102 100 Carbon Dioxide (21 - 33 mEq/L) 32 34 H Anion Gap (0 - 20) 10 8 BUN (7 - 18 mg/dL) 23 H 22 H Creatinine (0.6 - 1.3 mg/dL) 2.4 H 2.4 H Glomerular Filtr Rate (70 - 80) 19.8 L 19.8 L Glucose (70 - 110 mg/dL) 155 H 270 H POC Glucose (70 - 110 MG/DL) 146 H Lactic Acid (0.4 - 1.9 mmol/L) 1.3 Calcium (8.0 - 10.5 mg/dL) 7.2 L 7.4 L Ionized Calcium Jefry (1.12 - 1.32 MMOL/L) 1.05 L Phosphorus (2.5 - 4.9 MG/DL) 3.5 3.2 Magnesium (1.8 - 2.4 mg/dL) 1.90 1.90 Total Bilirubin (<1.5 MG/DL) 0.3 0.3 Direct Bilirubin (0.0 - 0.30 MG/DL) 0.10 Indirect Bilirubin (MG/DL) 0.20 AST (15 - 37 IUnit/L) 31 31 ALT (15 - 65 IUnit/L) 39 39 Total Alk Phosphatase (20 - 125 IUnit/L) 70 69 Lactate Dehydrogenase (84 - 246 IUnits/L) 270 H Total Protein (6.4 - 8.2 g/dL) 4.5 L 5.0 L Albumin (3.4 - 5.0 g/dL) 1.90 L 1.80 L 09/28 09/28 09/28 09/28 09/28 2337 1724 1724 1551 1231 Chemistry Sodium (134 - 147 mEq/L) 139 139 Potassium (3.4 - 5.0 mEq/L) 3.9 3.7 Chloride (100 - 108 mEq/L) 101 103 Carbon Dioxide (21 - 33 mEq/L) 34 H 31 Anion Gap (0 - 20) 8 9 BUN (7 - 18 mg/dL) 23 H 21 H Creatinine (0.6 - 1.3 mg/dL) 2.4 H 2.1 H Glomerular Filtr Rate (70 - 80) 19.8 L 23.2 L Glucose (70 - 110 mg/dL) 231 H 186 H POC Glucose (70 - 110 MG/DL) 154 H 143 H Lactic Acid (0.4 - 1.9 mmol/L) 1.2 Calcium (8.0 - 10.5 mg/dL) 7.6 L 7.0 L Phosphorus (2.5 - 4.9 MG/DL) 3.2 2.8 Magnesium (1.8 - 2.4 mg/dL) 1.80 2.00 09/28 09/28 09/28 1225 1008 0753 Chemistry Sodium (134 - 147 mEq/L) 141 Potassium (3.4 - 5.0 mEq/L) 4.5 Chloride (100 - 108 mEq/L) 104 Carbon Dioxide (21 - 33 mEq/L) 31 Anion Gap (0 - 20) 11 BUN (7 - 18 mg/dL) 19 H Creatinine (0.6 - 1.3 mg/dL) 2.1 H Glomerular Filtr Rate (70 - 80) 23.2 L Glucose (70 - 110 mg/dL) 156 H POC Glucose (70 - 110 MG/DL) 112 H 79 Calcium (8.0 - 10.5 mg/dL) 7.3 L Phosphorus (2.5 - 4.9 MG/DL) 3.1 Magnesium (1.8 - 2.4 mg/dL) 1.90 Laboratory Tests 09/29 0819 Coagulation INR (0.8 - 1.2) 1.3 H PTT ([place]) (25.0 - 39.5 Seconds) 28.5 PT Patient/Control Mix (9.3 - 12.9 SECONDS) 14.3 H Laboratory Tests 09/30 09/29 09/29 0400 0819 0531 Hematology WBC (4.5 - 11.0 x10 3/uL) 9.66 10.57 RBC (3.54 - 5.02 x10 6/uL) 2.98 L 2.60 L Hgb (11.0 - 15.0 g/dL) 8.9 L 7.8 L Hct (33.0 - 45.0 %) 27.9 L 24.0 L MCV (81.0 - 99.0 fL) 93.6 92.3 MCH (27.0 - 33.0 pg) 29.9 30.0 MCHC (33.0 - 37.0 g/dL) 31.9 L 32.5 L RDW (11.5 - 14.5 %) 13.9 14.0 Plt Count (150 - 400 x10 3/uL) 71 L 60 L MPV (7.0 - 9.0 fL) 12.8 H 12.3 H Neut % (Auto) (56.0 - 77.0 %) 83.0 H 81.0 H Lymph % (Auto) (14.0 - 32.0 %) 10.0 L 12.7 L [place] % (Auto) (4.8 - 9.0 %) 5.7 5.2 Eos % (Auto) (0.3 - 3.7 %) 0.7 0.5 Baso % (Auto) (0.0 - 2.0 %) 0.2 0.1 Neut # (Auto) (2.0 - 7.6 x10 3/uL) 8.01 H 8.57 H Lymph # (Auto) (1.0 - 3.8 x10 3/uL) 0.97 L 1.34 [place] # (Auto) (0.1 - 0.8 x10 3/uL) 0.55 0.55 Eos # (Auto) (0.0 - 0.2 x10 3/uL) 0.07 0.05 Baso # (Auto) (0.0 - 0.2 x10 3/uL) 0.02 0.01 Abs Immat Gran (auto) (0.00 - 0.03 x10 3/uL) 0.04 H 0.05 H Add Manual Diff NO NO Immature Gran % (0.0 - 2.0 %) 0.4 0.5 Nucleated RBC % (0 - 0 %) 0.0 0.0 Nucleated RBCs # (Man) (0.0 - 0.1 x10 3/uL) 0.00 0.00 Haptoglobin (42 - 346 mg/dL) 173 Laboratory Tests 09/30 09/30 09/30 09/30 1917 1617 1145 0752 Chemistry POC Glucose (70 - 110 MG/DL) 218 H 260 H 178 H 178 H Diagnosis, Assessment PlanFree Text A P:Patient seen and evaluated, discussed with care team, images and laboratories reviewed.History of dementiaHistory of rheumatoid arthritisHistory of frequent fallsHistory of frequent UTIsHistory of hypertension: Currently hypotensiveHypokalemia: We will supplementSevere hypomagnesemia we will supplementHypocalcemia: We will supplementHypoalbuminemiaSevere lactic acidosis: Etiology, could be related to septic shock, however source is unclear, rule out ischemic bowel, Zosyn, will need to review her medications if patient has been on metformin, lactic acidosis due to metformin in the setting of acute renal failure is a possibility and will do hemodialysis in the setting.Patient has been taking Metformin 1000 BID, kenneth has lactic acidosis that is induced by Metformin, discussed with deysi and ICC/Primary team will proceed with HD09/27/2019 mental status a lot better, hemodynamically more stable, pressors being weaned off, received 6 hours of hemodialysis yesterday, her last set of blood gas showed a pH of 7.40, PCO2 25, PO2 55, lactic acid 6.2 improving, sodium is 143 potassium 3.6 CO2 20 chloride 101 BUN 13 creatinine 1.1, hemoglobin this morning 9.7, white blood count 19.78 trending down, platelet 156, her clinical picture is consistent with metformin induced lactic acidosis, will do another session of hemodialysis, 4 hours, potassium 3.5, no ultrafiltration, will give 20 mmol of potassium phosphate and expectation of hypophosphatemia during hemodialysis. katie and evaluated during HD, discussed with RN and HD nurse09/28/2019 laboratories from this morning showed sodium 144, potassium 3.3 we will give KCl 20 mEq IV x1, chloride 104, bicarbonate 16, creatinine 1.2, lacticacid 1.2, hemoglobin 8.4, white blood count 15.2, blood culture still negative, anion gap today is 24 with a normal lactic acid etiology unclear will repeat BMP, repeat lactic acid and order serum acetone and do urinalysis to check for urine ketones, also will do a blood gas. Ketones came back as large, This is kenneth starvation ketoacidosis that has been exacerbated by gluconeogenesis inhibition by Metformin and has been reported in the literature, will start Glucose and insulin drip09/29/2019 laboratories from this morning showed sodium 142, potassium 2.7 we will give KCl 20 mEq IV x2, bicarbonate 32 with a chloride of 103 with disappearance of the anion gap correction of anion gap, will DC IV fluid with sodium bicarbonate, will DC insulin drip, changed to insulin sliding scale, start D10 at 30 cc/h since patient is noted nauseated, her chest x-ray showed pulmonary edema, will give IV Lasix 60 mg every 8 hours, give a dose of metolazone, her phosphorus 1.4, will give potassium phosphate 15 mmol IV x1, recheck lab in the afternoon, her lactic acid is 4 up some, not clear why is it elevated, we will recheck in the afternoon, her creatinine is 2.2, not sure whather baseline creatinine, her creatinine is relatively stable since yesterday, will monitor closely, hemoglobin is 7.8, white blood count 13.57 improving.09/30/2019 laboratories from this morning showed sodium 138, potassium 3.5, CO2 34, chloride 100, BUN and creatinine 22 and 2.4 up some likely related to diuretics, albumin 1.8, hemoglobin 7.8, platelet 60, white blood count 10.51 continues to trend down, lactic acid 1.2 within normal limit, urine output [id number] cc with Lasix. Chest x-ray still pending. Progressive thrombocytopenia with progressive decrease in hemoglobin, the latter could be related to fluid resuscitation, multiple blood draws and blood loss during dialysis procedure, however will check LDH, haptoglobin, PT/ PT. 10/01/2019 patient was transferred to the floor, PT PTT are within normal limit, LDH slightly elevated 276, liver function tests are within normal limit, haptoglobin pending, chest x-ray is better from yesterday. Sodium 138 today potassium 3.8, CO2 32, BUN and creatinine 25 and 2.6 trending up likely related to volume contraction. Will check post void resdiual at 1202 RPT #:[id number] OF REPORTPRProgress [id number]:20:00G.[id number] for patient [id number]:03:00 [facility] 2019-10-02 07:20:00 [id number] qrGrv57hPcjEO9hbx jLJM4AtnHJmR///[id number]:20:00 [facility] ([facility])Nephrology Progress NoteREPORT#:[id number] REPORT STATUS: SignedDATE:10/02/19 TIME: 07 PATIENT: MAC AGUSTIN UNIT #: [id number]#: [id number] [address] AGE: 74 SEX: F ATTEND: Joel Myers MDA AUTHOR: Rabia Aguilar MD * ALL edits or amendments must be made on the electronic/computer document * See AddendumSubjectiveChief Complaint:AMS/Lactic acidosis/AKIUnable to obtain: dementiaComments:Patient seen and evaluated, HPI no change from initial, feels okay Review of SystemsUnable to obtain due to:Dementia Objective GeneralVS/I O:Vital Signs: Date Time Temp Pulse Resp B/P B/P Pulse O2 O2 Flow FiO2 Mean Ox Delivery Rate 10/01 0444 36.5 68 15 96/64 74.7 93 09/30 2325 37.0 69 18 103/67 79.0 99 09/30 1930 Nasal 2.894278 cannula 09/30 1919 36.5 76 18 94/62 73.1 97 09/30 1525 36.7 72 18 109/70 82.9 97 09/30 1146 36.5 69 18 107/71 83.0 97 09/30 0753 36.4 66 18 101/67 78.3 95 09/30 0730 Nasal 2.597817 cannula 24 hour I O ending at 0700: 10/01 0700 09/30 1900 Intake Total 1710.00 20 Output Total Balance 1710.00 20 Intake, IV 720.00 Intake, Oral 760 Intake, Oral 230 20 Supplement Number 1 Bowel Movements Number 3 Incontinent Voids Patient 75.75 kg Weight Weight Bed scale Measurement Method MedicationsActive Meds + DC'd Last 24 HrsPantoprazole 40 MG BID@0600,1800 PO Megestrol Acetate 800 MG DAILY PO Dextrose/Water 1,000 ML .Q24H IV (DC) Zinc Oxide 1 APPLIC BID TOPICAL Lidocaine 1 EA Q24H TOPICAL Insulin Human Lispro 0 AC HS SUBQ Pantoprazole Sodium 40 MG DAILY IV (DC) Sodium Chloride 10 ML ASDIR PRN IV (DC) Dextrose/Water 250 ML .Q8H20M IV (DC) Morphine Sulfate 2 MG Q4H PRN PRN IV Acetaminophen 650 MG Q4H PRN PRN PO Heparin Sodium 5,000 UNIT Q12HR SUBQ Physical ExamGeneral appearance: alert, no acute distressHead/eyes: atraumatic, normocephalicENT: normal noseNeck: supple/no meningismusCardiovascular: normal heart sounds, no rubRespiratory: aerating well, symmetric expansionAbdomen: softGenitourinary: ballard, urineExtremities: no edemaMusculoskeletal: normal inspectionNeuro/FAST FOOD ATTENDANT: altered mental statusSkin: dry ResultsFindings/Data:Laboratory Tests 09/307 1617 1145 0752 0400 Chemistry Sodium (134 - 147 mEq/L) 138 Potassium (3.4 - 5.0 mEq/L) 3.8 Chloride (100 - 108 mEq/L) 99 L Carbon Dioxide (21 - 33 mEq/L) 32 Anion Gap (0 - 20) 11 BUN (7 - 18 mg/dL) 25 H Creatinine (0.6 - 1.3 mg/dL) 2.6 H Glomerular Filtr Rate (70 - 80) 18.1 L Glucose (70 - 110 mg/dL) 174 H POC Glucose (70 - 110 MG/DL) 218 H 260 H 178 H 178 H Calcium (8.0 - 10.5 mg/dL) 8.1 Phosphorus (2.5 - 4.9 MG/DL) 3.2 Magnesium (1.8 - 2.4 mg/dL) 1.80 09/29 09/29 09/29 09/29 2020 1620 1147 0819 Chemistry POC Glucose (70 - 110 MG/DL) 136 H 114 H 162 H B-Natriuretic Peptide (0 - 100 PG/ML) 492.2 H 09/29 09/29 09/29 09/29 0819 0810 0531 0531 Chemistry Sodium (134 - 147 mEq/L) 140 138 Potassium (3.4 - 5.0 mEq/L) 3.7 3.5 Chloride (100 - 108 mEq/L) 102 100 Carbon Dioxide (21 - 33 mEq/L) 32 34 H Anion Gap (0 - 20) 10 8 BUN (7 - 18 mg/dL) 23 H 22 H Creatinine (0.6 - 1.3 mg/dL) 2.4 H 2.4 H Glomerular Filtr Rate (70 - 80) 19.8 L 19.8 L Glucose (70 - 110 mg/dL) 155 H 270 H POC Glucose (70 - 110 MG/DL) 146 H Lactic Acid (0.4 - 1.9 mmol/L) 1.3 Calcium (8.0 - 10.5 mg/dL) 7.2 L 7.4 L Ionized Calcium Jefry (1.12 - 1.32 MMOL/L) 1.05 L Phosphorus (2.5 - 4.9 MG/DL) 3.5 3.2 Magnesium (1.8 - 2.4 mg/dL) 1.90 1.90 Total Bilirubin (<1.5 MG/DL) 0.3 0.3 Direct Bilirubin (0.0 - 0.30 MG/DL) 0.10 Indirect Bilirubin (MG/DL) 0.20 AST (15 - 37 IUnit/L) 31 31 ALT (15 - 65 IUnit/L) 39 39 Total Alk Phosphatase (20 - 125 IUnit/L) 70 69 Lactate Dehydrogenase (84 - 246 IUnits/L) 270 H Total Protein (6.4 - 8.2 g/dL) 4.5 L 5.0 L Albumin (3.4 - 5.0 g/dL) 1.90 L 1.80 L 09/28 09/28 09/28 09/28 09/28 2337 1724 1724 1551 1231 Chemistry Sodium (134 - 147 mEq/L) 139 139 Potassium (3.4 - 5.0 mEq/L) 3.9 3.7 Chloride (100 - 108 mEq/L) 101 103 Carbon Dioxide (21 - 33 mEq/L) 34 H 31 Anion Gap (0 - 20) 8 9 BUN (7 - 18 mg/dL) 23 H 21 H Creatinine (0.6 - 1.3 mg/dL) 2.4 H 2.1 H Glomerular Filtr Rate (70 - 80) 19.8 L 23.2 L Glucose (70 - 110 mg/dL) 231 H 186 H POC Glucose (70 - 110 MG/DL) 154 H 143 H Lactic Acid (0.4 - 1.9 mmol/L) 1.2 Calcium (8.0 - 10.5 mg/dL) 7.6 L 7.0 L Phosphorus (2.5 - 4.9 MG/DL) 3.2 2.8 Magnesium (1.8 - 2.4 mg/dL) 1.80 2.00 09/28 09/28 09/28 1225 1008 0753 Chemistry Sodium (134 - 147 mEq/L) 141 Potassium (3.4 - 5.0 mEq/L) 4.5 Chloride (100 - 108 mEq/L) 104 Carbon Dioxide (21 - 33 mEq/L) 31 Anion Gap (0 - 20) 11 BUN (7 - 18 mg/dL) 19 H Creatinine (0.6 - 1.3 mg/dL) 2.1 H Glomerular Filtr Rate (70 - 80) 23.2 L Glucose (70 - 110 mg/dL) 156 H POC Glucose (70 - 110 MG/DL) 112 H 79 Calcium (8.0 - 10.5 mg/dL) 7.3 L Phosphorus (2.5 - 4.9 MG/DL) 3.1 Magnesium (1.8 - 2.4 mg/dL) 1.90 Laboratory Tests 09/29 0819 Coagulation INR (0.8 - 1.2) 1.3 H PTT ([place]) (25.0 - 39.5 Seconds) 28.5 PT Patient/Control Mix (9.3 - 12.9 SECONDS) 14.3 H Laboratory Tests 09/30 09/29 09/29 0400 0819 0531 Hematology WBC (4.5 - 11.0 x10 3/uL) 9.66 10.57 RBC (3.54 - 5.02 x10 6/uL) 2.98 L 2.60 L Hgb (11.0 - 15.0 g/dL) 8.9 L 7.8 L Hct (33.0 - 45.0 %) 27.9 L 24.0 L MCV (81.0 - 99.0 fL) 93.6 92.3 MCH (27.0 - 33.0 pg) 29.9 30.0 MCHC (33.0 - 37.0 g/dL) 31.9 L 32.5 L RDW (11.5 - 14.5 %) 13.9 14.0 Plt Count (150 - 400 x10 3/uL) 71 L 60 L MPV (7.0 - 9.0 fL) 12.8 H 12.3 H Neut % (Auto) (56.0 - 77.0 %) 83.0 H 81.0 H Lymph % (Auto) (14.0 - 32.0 %) 10.0 L 12.7 L [place] % (Auto) (4.8 - 9.0 %) 5.7 5.2 Eos % (Auto) (0.3 - 3.7 %) 0.7 0.5 Baso % (Auto) (0.0 - 2.0 %) 0.2 0.1 Neut # (Auto) (2.0 - 7.6 x10 3/uL) 8.01 H 8.57 H Lymph # (Auto) (1.0 - 3.8 x10 3/uL) 0.97 L 1.34 [place] # (Auto) (0.1 - 0.8 x10 3/uL) 0.55 0.55 Eos # (Auto) (0.0 - 0.2 x10 3/uL) 0.07 0.05 Baso # (Auto) (0.0 - 0.2 x10 3/uL) 0.02 0.01 Abs Immat Gran (auto) (0.00 - 0.03 x10 3/uL) 0.04 H 0.05 H Add Manual Diff NO NO Immature Gran % (0.0 - 2.0 %) 0.4 0.5 Nucleated RBC % (0 - 0 %) 0.0 0.0 Nucleated RBCs # (Man) (0.0 - 0.1 x10 3/uL) 0.00 0.00 Haptoglobin (42 - 346 mg/dL) 173 Laboratory Tests 09/30 09/30 09/30 09/30 1917 1617 1145 0752 Chemistry POC Glucose (70 - 110 MG/DL) 218 H 260 H 178 H 178 H Diagnosis, Assessment PlanFree Text A P:Patient seen and evaluated, discussed with care team, images and laboratories reviewed.History of dementiaHistory of rheumatoid arthritisHistory of frequent fallsHistory of frequent UTIsHistory of hypertension: Currently hypotensiveHypokalemia: We will supplementSevere hypomagnesemia we will supplementHypocalcemia: We will supplementHypoalbuminemiaSevere lactic acidosis: Etiology, could be related to septic shock, however source is unclear, rule out ischemic bowel, Fito, will need to review her medications if patient has been on metformin, lactic acidosis due to metformin in the setting of acute renal failure is a possibility and will do hemodialysis in the setting.Patient has been taking Metformin 1000 BID, kenneth has lactic acidosis that is induced by Metformin, discussed with deysi and ICC/Primary team will proceed with HD09/27/2019 mental status a lot better, hemodynamically more stable, pressors being weaned off, received 6 hours of hemodialysis yesterday, her last set of blood gas showed a pH of 7.40, PCO2 25, PO2 55, lactic acid 6.2 improving, sodium is 143 potassium 3.6 CO2 20 chloride 101 BUN 13 creatinine 1.1, hemoglobin this morning 9.7, white blood count 19.78 trending down, platelet 156, her clinical picture is consistent with metformin induced lactic acidosis, will do another session of hemodialysis, 4 hours, potassium 3.5, no ultrafiltration, will give 20 mmol of potassium phosphate and expectation of hypophosphatemia during hemodialysis. katie and evaluated during HD, discussed with RN and HD nurse09/28/2019 laboratories from this morning showed sodium 144, potassium 3.3 we will give KCl 20 mEq IV x1, chloride 104, bicarbonate 16, creatinine 1.2, lacticacid 1.2, hemoglobin 8.4, white blood count 15.2, blood culture still negative, anion gap today is 24 with a normal lactic acid etiology unclear will repeat BMP, repeat lactic acid and order serum acetone and do urinalysis to check for urine ketones, also will do a blood gas. Ketones came back as large, This is kenneth starvation ketoacidosis that has been exacerbated by gluconeogenesis inhibition by Metformin and has been reported in the literature, will start Glucose and insulin drip09/29/2019 laboratories from this morning showed sodium 142, potassium 2.7 we will give KCl 20 mEq IV x2, bicarbonate 32 with a chloride of 103 with disappearance of the anion gap correction of anion gap, will DC IV fluid with sodium bicarbonate, will DC insulin drip, changed to insulin sliding scale, start D10 at 30 cc/h since patient is noted nauseated, her chest x-ray showed pulmonary edema, will give IV Lasix 60 mg every 8 hours, give a dose of metolazone, her phosphorus 1.4, will give potassium phosphate 15 mmol IV x1, recheck lab in the afternoon, her lactic acid is 4 up some, not clear why is it elevated, we will recheck in the afternoon, her creatinine is 2.2, not sure whather baseline creatinine, her creatinine is relatively stable since yesterday, will monitor closely, hemoglobin is 7.8, white blood count 13.57 improving.09/30/2019 laboratories from this morning showed sodium 138, potassium 3.5, CO2 34, chloride 100, BUN and creatinine 22 and 2.4 up some likely related to diuretics, albumin 1.8, hemoglobin 7.8, platelet 60, white blood count 10.51 continues to trend down, lactic acid 1.2 within normal limit, urine output [id number] cc with Lasix. Chest x-ray still pending. Progressive thrombocytopenia with progressive decrease in hemoglobin, the latter could be related to fluid resuscitation, multiple blood draws and blood loss during dialysis procedure, however will check LDH, haptoglobin, PT/ PT. 10/01/2019 patient was transferred to the floor, PT PTT are within normal limit, LDH slightly elevated 276, liver function tests are within normal limit, haptoglobin pending, chest x-ray is better from yesterday. Sodium 138 today potassium 3.8, CO2 32, BUN and creatinine 25 and 2.6 trending up likely related to volume contraction. Will check post void resdiual at 1202 Addendum 1: 10/03/19 0848 by Rabia Aguilar MD 10/02/2019 laboratories from 10/02/2019 showed sodium 137, potassium 3.3 will supplement, CO2 30, BUN and creatinine 2.8 continue to rise, will check postvoidresidual, hemoglobin 8.3, platelet 106, white blood count 5.89, hypomagnesemia 1.7 we will give magnesium sulfate 1 g IV x1. at 0849 RPT #:[id number] OF REPORTPRProgress [id number]:20:00G.[id number] for patient [id number]:50:05 [facility] 2019-10-02 07:09:00 [id number] DOqKQmxES9hX4rE6v YomJpcpZWtHXbexLg0qPlKi3HQ9691-10-39H87:09:00 [facility] ([facility])Hospitalist Progress NoteREPORT#:[id number] REPORT STATUS: SignedDATE:10/02/19 TIME: 708 PATIENT: MAC AGUSTIN UNIT #: [id number]#: [id number] [address] [birth year] AGE: 74 SEX: F ATTEND: Joel Myers MDA AUTHOR: Joel Myers MD * ALL edits or amendments must be made on the electronic/computer document * SubjectiveChief Complaint:follow up for NATHEN/CKD, HTN. feels ok. not eating well. no diarrhea or melena. denies abdominal pain. appetite remains poor. Review of SystemsAdditional notes:12 point ROS negative except for mentioned in HPI. Objective GeneralVS/I O:Vital Signs: Date Time Temp Pulse Resp B/P B/P Pulse O2 O2 Flow FiO2 Mean Ox Delivery Rate 10/01 0444 97.7 68 15 96/64 74.7 93 09/30 2325 98.6 69 18 103/67 79.0 99 09/30 1930 Nasal 2.270858 cannula 09/30 1919 97.7 76 18 94/62 73.1 97 09/30 1525 98.1 72 18 109/70 82.9 97 09/30 1146 97.7 69 18 107/71 83.0 97 09/30 0753 97.5 66 18 101/67 78.3 95 09/30 0730 Nasal 2.395366 cannula 24 hour I O ending at 0700: 10/01 0700 09/30 1900 Intake Total 1710.00 20 Output Total Balance 1710.00 20 Intake, IV 720.00 Intake, Oral 760 Intake, Oral 230 20 Supplement Number 1 Bowel Movements Number 3 Incontinent Voids Patient 75.75 kg Weight Weight Bed scale Measurement Method Patient Weight Weight (lb): 167Weight (oz): 15.88Weight (kg): 75.75 Medications:Active Meds + DC'd Last 24 HrsPantoprazole 40 MG BID@0600,1800 PO Megestrol Acetate 800 MG DAILY PO Dextrose/Water 1,000 ML .Q24H IV Zinc Oxide 1 APPLIC BID TOPICAL Lidocaine 1 EA Q24H TOPICAL Insulin Human Lispro 0 AC HS SUBQ Pantoprazole Sodium 40 MG DAILY IV (DC) Sodium Chloride 10 ML ASDIR PRN IV (DC) Dextrose/Water 250 ML .Q8H20M IV (DC) Morphine Sulfate 2 MG Q4H PRN PRN IV Acetaminophen 650 MG Q4H PRN PRN PO Heparin Sodium 5,000 UNIT Q12HR SUBQ (r) Physical ExamGeneral appearance: confused (intermittently), alert, awakeHead/Eyes: atraumatic, normocephalicENT: moist mucosal membranesNeck: non-tender, no JVD, no masses or swellingCardiovascular: normal heart sounds, regular rate rhythmRespiratory: decreased breath sounds, rhonchi, symmetric expansion, no distress,no rales appreciated on anterior examAbdomen: soft, no distention, no guarding, no reboundGenitourinary: no bladder distentionExtremities: edema (bLE +1), no clubbing, no cyanosisMusculoskeletal: normal inspectionNeuro/FAST FOOD ATTENDANT: no motor deficitsSkin: no rashPsychiatry: normal affect, normal mood ResultsFindings/Data:Laboratory Tests 09/30 09/30 09/30 09/30 1917 1617 1145 0752 Chemistry POC Glucose (70 - 110 MG/DL) 218 H 260 H 178 H 178 H Diagnosis, Assessment Plan Free Text DxA P NotesFree text DxA P notes:Severe lactic acidosisSevere metabolic acidosisAcute renal failureHypocalcemiaHypomagnesemia?Septic shock vs lactic acidosis from metforminDehydrationHypothermiaDMHTNDementia with behavior disturbancepersistent hypoglycemia Plan:Ms. Agustin is a 74 yo female with non-specific symptoms of not feeling well, poor appetite that was found to have abnormal labs at [facility], sent to ED for evaluation. In the ED, found to have severe lactic and metabolic acidosis. Discussed at length with ICU (Dr. Lin) and Renal (Dr Aguilar). Given her [place] imaging, urinalysis, CXR are unremarkable for this level of acidosis, perhaps this acidosis is secondary to metformin. Plan is to dialyize patient to look for improvement. If no improvement, perhaps this is ischemic bowel. Will continue empiric Zosyn. - Zosyn- blood cultures pending- hold home meds- Accuchecks and SSI- replace electrolytes- heparin for DVT prophylaxsis 09/26Improved lactic acidosis with dialysis. Given improvement, likely this was lactic acidosis secondary to metformin. WBC persistently elevated at 19, will continue broad spectrum abx for now - blood cultures negative - UA unremarkable - monitor CBC for downtrend - if WBC remains elevated with mention of possible neoplasm in stomach, would consider work up however, this patient has dementia with low quality of life, not a good candidate for work up/treatment.BS well controlled with current insulin scheduleCheck labs in am 09/27Lactate remains normal, continue to hold metforminPt noted return of anion gap acidosis with ketonuria. Discussed with Dr. Aguilar, nephrology. Pt placed on DKA protocol to close anion gap, on D10 for glucose needs while on insulin drip.BNP elevated with clear lungs, no dependent edema, decreased O2 requirement. Give one dose of Lasix 40 mg IV, check CXR in the am, monitor for volume overload while getting DKA fluids.WBC decreased to 15, continue abx for now, d/c after 5 daysSome blood noted in stool, CT with signs of chronic inflammation. Given her dementia, unsure that patient would tolerate bowel prep. GI consulted. Appreciate input on area in stomach with possible neoplasm. Check labs in am 09/28Anion gap closed, off insulin dripElevated lactate, monitorCXR shows severe vascular congestion and pleural fluid, likely related to fluidsgiven for lactic acidosis and metabolic acidosis, pt not in respiratory distress - Lasix 60 mg IV q8 iniated by nephrology - D10 at 30 cc/hr to maintain blood sugarWBC decreased to 13, d/c abx after 5 daysColon with chronic inflammation, no work up per GIWill need EGD to evaluate abnormality in gastric wall once improvedCheck labs in am 09/29Off insulin dripCXR reviewedCont lasixWBC count came down to 10.5On zosynTransfer to the floordw RN, TRUCK DRIVER TEAMSTER, consultantsCXR and telemetry personally reviewedFurther recs per clinical course 10/01/2019 - blood sugars stable on D10W. will switch to D5W - consider endo eval if persistently hypoglycemic - monitor renal function closely - off antibiotics - await stool samples. no diarrhea overnight - PT/OT - start mobilizing. rehab eval - on IV PPI. ? switch to po - will defer to GI - ? need for EGD 10/03/2019 - Back on Heparin SQ - Megace started. - switched to po PPI. - Blood sugars up. will d/c IV fluids at this time and monitor blood sugars closely - observe off antibiotics - mobilize - likely back to SNF in the next 1-2 daystotal time spent with evaluating patient/data as well as providing education/counselling to patient was more than 35 minutes at 0711 RPT #:[id number] OF REPORTPRProgress [id number]:09:00G.[id number] for patient klkrFFIHOPRYJZHLYV3390-01-13P94:12:[address] [facility] 2019-10-01 14:00:00 [id number] zzSFJ2dd5Vd9eAjgP MLW9B+2wZENUEgt2fnVQDX1wfj9677-54-64Z26:00:00 [facility])Gastroenterology Progress NoteREPORT#:[id number] REPORT STATUS: SignedDATE:10/01/19 TIME: 1400 PATIENT: MAC AGUSTIN UNIT #: [id number]#: [id number] [address] [birth year] AGE: 74 SEX: F ATTEND: Joel Myers [facility] AUTHOR: Arian Anderson * ALL edits or amendments must be made on the electronic/computer document * SubjectiveChief Complaint:weakHPI:Doing well. Diarrhea improved. No abdominal pain or nausea. Not eating much. Review of SystemsUnable to obtain due to:dementia Objective GeneralVS/I O:Last Documented: Result Date Time Pulse Ox 97 09/30 1146 B/P 107/71 09/30 1146 B/P Mean 83.0 09/30 1146 Temp 36.5 09/30 1146 Pulse 69 09/30 1146 Resp 18 09/30 1146 O2 Delivery Nasal cannula 09/294 O2 Flow Rate 4.893685 09/29 2354 24 hour I O ending at 0700: 09/30 0700 09/29 1900 Intake Total 800.00 392.00 Output Total 660 Balance 800.00 -268.00 Intake, IV 500.00 392.00 Intake, Oral 300 Number Voids 1 Output, Stool 0 Output, Urine 660 Patient 63.4 kg Weight Patient Weight Weight (lb): 167Weight (oz): 15.88Weight (kg): 76.200 Medications:Active Meds + DC'd Last 24 HrsPantoprazole 40 MG BID@0600,1800 PO Dextrose/Water 1,000 ML .Q24H IV Zinc Oxide 1 APPLIC BID TOPICAL Lidocaine 1 EA Q24H TOPICAL Insulin Human Lispro 0 AC HS SUBQ Pantoprazole Sodium 40 MG DAILY IV (DC) Sodium Chloride 10 ML ASDIR PRN IV (DC) Dextrose/Water 250 ML .Q8H20M IV (DC) Morphine Sulfate 2 MG Q4H PRN PRN IV Acetaminophen 650 MG Q4H PRN PRN PO Heparin Sodium 5,000 UNIT Q12HR SUBQ (DA) Piperacillin Sod/Tazobactam Sod 3.375 GM Q12H IV (DC) Sodium Chloride 100 MLAlbumin Human 12.5 GM ASDIR PRN IV (DC) Heparin Sodium (Porcine) 1,000 UNIT ASDIR PRN DIALYSIS (DC) Mannitol 12.5 GM ASDIR PRN IV (DC) Sodium Chloride 2,000 ML ASDIR PRN IV (DC) Sodium Chloride 10 ML ASDIR PRN IV (DC) Sodium Chloride 250 ML ASDIR PRN IV (DC) Norepinephrine Bitartrate 250 ML ASDIR PRN IV (DC) Sodium Chloride 0 ASDIR PRN IV (DC) Physical ExamGeneral appearance: awake, orientedHEENT: moist mucosal membranesCardiovascular: normal S1/N6Ywkkqxdubls: clear to auscultationAbdomen: non-tender, normal bowel sounds, soft, no distentionExtremities: edemaMusculoskeletal: normal inspectionSkin: dry ResultsFindings/Data:Laboratory Tests 10/01/19399:[Embedded Image Not Available]Laboratory Tests 09/30 09/30 09/30 09/29 09/29 1145 0752 0400 2020 1620 Chemistry Sodium (134 - 147 mEq/L) 138 Potassium (3.4 - 5.0 mEq/L) 3.8 Chloride (100 - 108 mEq/L) 99 L Carbon Dioxide (21 - 33 mEq/L) 32 Anion Gap (0 - 20) 11 BUN (7 - 18 mg/dL) 25 H Creatinine (0.6 - 1.3 mg/dL) 2.6 H Glomerular Filtr Rate (70 - 80) 18.1 L Glucose (70 - 110 mg/dL) 174 H POC Glucose (70 - 110 MG/DL) 178 H 178 H 136 H 114 H Calcium (8.0 - 10.5 mg/dL) 8.1 Phosphorus (2.5 - 4.9 MG/DL) 3.2 Magnesium (1.8 - 2.4 mg/dL) 1.80 Laboratory Tests 09/30 0400 Hematology WBC (4.5 - 11.0 x10 3/uL) 9.66 RBC (3.54 - 5.02 x10 6/uL) 2.98 L Hgb (11.0 - 15.0 g/dL) 8.9 L Hct (33.0 - 45.0 %) 27.9 L MCV (81.0 - 99.0 fL) 93.6 MCH (27.0 - 33.0 pg) 29.9 MCHC (33.0 - 37.0 g/dL) 31.9 L RDW (11.5 - 14.5 %) 13.9 Plt Count (150 - 400 x10 3/uL) 71 L MPV (7.0 - 9.0 fL) 12.8 H Neut % (Auto) (56.0 - 77.0 %) 83.0 H Lymph % (Auto) (14.0 - 32.0 %) 10.0 L [place] % (Auto) (4.8 - 9.0 %) 5.7 Eos % (Auto) (0.3 - 3.7 %) 0.7 Baso % (Auto) (0.0 - 2.0 %) 0.2 Neut # (Auto) (2.0 - 7.6 x10 3/uL) 8.01 H Lymph # (Auto) (1.0 - 3.8 x10 3/uL) 0.97 L [place] # (Auto) (0.1 - 0.8 x10 3/uL) 0.55 Eos # (Auto) (0.0 - 0.2 x10 3/uL) 0.07 Baso # (Auto) (0.0 - 0.2 x10 3/uL) 0.02 Abs Immat Gran (auto) (0.00 - 0.03 x10 3/uL) 0.04 H Add Manual Diff NO Immature Gran % (0.0 - 2.0 %) 0.4 Nucleated RBC % (0 - 0 %) 0.0 Nucleated RBCs # (Man) (0.0 - 0.1 x10 3/uL) 0.00 Results: labs reviewed, vital signs stable Diagnosis, Assessment PlanProblem List/A P: 1. Antibiotic-associated diarrhea Free Text A P:IMPRESSION: A 74-year-old female with a host of comorbidities, especiallyadvanced dementia, presented with failure to thrive kind of situation, labs weresignificantly abnormal with electrolyte disbalance, acute renal failure,metabolic acidosis and underlying sepsis from urinary tract infection. UTI isbeing treated with IV antibiotic. She is responding. The CT finding of colonicwall thickening as well as gastric distention with gastric wall thickening is anincidental finding. PLAN:1. Colonic wall thickening is not concerning. This diffuse colonic wall edemacould be due to underlying sepsis and hypoalbuminemia. This does not warrantany further investigation at this time. It seems to be self-limiting.2. Gastric distention, gastric wall thickening certainly needs furtherevaluation with direct visualization. Therefore, upper endoscopy should beconsidered when the patient is medically stable and has recovered well from hercurrent acute illness. 10/01/19- C diff ordered and pending collection. Diarrhea resolved. - Broaden stool studies. Pending collection.- PPI PO- Consider Megace if PO intake does not improve- Supportive care at 1403 RPT #:[id number] OF REPORTPRProgress Qhld9044-81-69Y70:00:00G.[id number] for patient hywxPEUWWVZRDGROGT9773-69-51X79:03:[address] [facility] 2019-10-01 14:00:00 [id number] YaRy5GMOjskyGqYNv hD5C/QaW9imFJjN8oQ2WA3G8s78171-80-43Q85:00:00 [facility] ([facility])Gastroenterology Progress NoteREPORT#:[id number] REPORT STATUS: SignedDATE:10/01/19 TIME: 1400 PATIENT: MAC AGUSTIN UNIT #: [id number]#: [id number] [address] [birth year] AGE: 74 SEX: F ATTEND: Joel Myers [facility] AUTHOR: Arian Anderson * ALL edits or amendments must be made on the electronic/computer document * Arian Anderson 10/01/19 1400:SubjectiveChief Complaint:weakHPI:Doing well. Diarrhea improved. No abdominal pain or nausea. Not eating much. Review of SystemsUnable to obtain due to:dementia Objective GeneralVS/I O:Last Documented: Result Date Time Pulse Ox 97 09/30 1146 B/P 107/71 09/30 1146 B/P Mean 83.0 09/30 1146 Temp 36.5 09/30 1146 Pulse 69 09/30 1146 Resp 18 09/30 1146 O2 Delivery Nasal cannula 09/29 2354 O2 Flow Rate 4.247744 09/29 2354 24 hour I O ending at 0700: 09/30 0700 09/29 1900 Intake Total 800.00 392.00 Output Total 660 Balance 800.00 -268.00 Intake, IV 500.00 392.00 Intake, Oral 300 Number Voids 1 Output, Stool 0 Output, Urine 660 Patient 63.4 kg Weight Patient Weight Weight (lb): 167Weight (oz): 15.88Weight (kg): 76.200 Medications:Active Meds + DC'd Last 24 HrsPantoprazole 40 MG BID@0600,1800 PO Dextrose/Water 1,000 ML .Q24H IV Zinc Oxide 1 APPLIC BID TOPICAL Lidocaine 1 EA Q24H TOPICAL Insulin Human Lispro 0 AC HS SUBQ Pantoprazole Sodium 40 MG DAILY IV (DC) Sodium Chloride 10 ML ASDIR PRN IV (DC) Dextrose/Water 250 ML .Q8H20M IV (DC) Morphine Sulfate 2 MG Q4H PRN PRN IV Acetaminophen 650 MG Q4H PRN PRN PO Heparin Sodium 5,000 UNIT Q12HR SUBQ (DA) Piperacillin Sod/Tazobactam Sod 3.375 GM Q12H IV (DC) Sodium Chloride 100 MLAlbumin Human 12.5 GM ASDIR PRN IV (DC) Heparin Sodium (Porcine) 1,000 UNIT ASDIR PRN DIALYSIS (DC) Mannitol 12.5 GM ASDIR PRN IV (DC) Sodium Chloride 2,000 ML ASDIR PRN IV (DC) Sodium Chloride 10 ML ASDIR PRN IV (DC) Sodium Chloride 250 ML ASDIR PRN IV (DC) Norepinephrine Bitartrate 250 ML ASDIR PRN IV (DC) Sodium Chloride 0 ASDIR PRN IV (DC) Physical ExamGeneral appearance: awake, orientedHEENT: moist mucosal membranesCardiovascular: normal S1/B0Yghfrukdcte: clear to auscultationAbdomen: non-tender, normal bowel sounds, soft, no distentionExtremities: edemaMusculoskeletal: normal inspectionSkin: dry ResultsFindings/Data:Laboratory Tests 10/01/19 0400:[Embedded Image Not Available]Laboratory Tests 09/30 09/30 09/30 09/29 09/29 1145 0752 0400 2020 1620 Chemistry Sodium (134 - 147 mEq/L) 138 Potassium (3.4 - 5.0 mEq/L) 3.8 Chloride (100 - 108 mEq/L) 99 L Carbon Dioxide (21 - 33 mEq/L) 32 Anion Gap (0 - 20) 11 BUN (7 - 18 mg/dL) 25 H Creatinine (0.6 - 1.3 mg/dL) 2.6 H Glomerular Filtr Rate (70 - 80) 18.1 L Glucose (70 - 110 mg/dL) 174 H POC Glucose (70 - 110 MG/DL) 178 H 178 H 136 H 114 H Calcium (8.0 - 10.5 mg/dL) 8.1 Phosphorus (2.5 - 4.9 MG/DL) 3.2 Magnesium (1.8 - 2.4 mg/dL) 1.80 Laboratory Tests 09/30 0400 Hematology WBC (4.5 - 11.0 x10 3/uL) 9.66 RBC (3.54 - 5.02 x10 6/uL) 2.98 L Hgb (11.0 - 15.0 g/dL) 8.9 L Hct (33.0 - 45.0 %) 27.9 L MCV (81.0 - 99.0 fL) 93.6 MCH (27.0 - 33.0 pg) 29.9 MCHC (33.0 - 37.0 g/dL) 31.9 L RDW (11.5 - 14.5 %) 13.9 Plt Count (150 - 400 x10 3/uL) 71 L MPV (7.0 - 9.0 fL) 12.8 H Neut % (Auto) (56.0 - 77.0 %) 83.0 H Lymph % (Auto) (14.0 - 32.0 %) 10.0 L [place] % (Auto) (4.8 - 9.0 %) 5.7 Eos % (Auto) (0.3 - 3.7 %) 0.7 Baso % (Auto) (0.0 - 2.0 %) 0.2 Neut # (Auto) (2.0 - 7.6 x10 3/uL) 8.01 H Lymph # (Auto) (1.0 - 3.8 x10 3/uL) 0.97 L [place] # (Auto) (0.1 - 0.8 x10 3/uL) 0.55 Eos # (Auto) (0.0 - 0.2 x10 3/uL) 0.07 Baso # (Auto) (0.0 - 0.2 x10 3/uL) 0.02 Abs Immat Gran (auto) (0.00 - 0.03 x10 3/uL) 0.04 H Add Manual Diff NO Immature Gran % (0.0 - 2.0 %) 0.4 Nucleated RBC % (0 - 0 %) 0.0 Nucleated RBCs # (Man) (0.0 - 0.1 x10 3/uL) 0.00 Results: labs reviewed, vital signs stable Diagnosis, Assessment PlanProblem List/A P: 1. Antibiotic-associated diarrhea Free Text A P:IMPRESSION: A 74-year-old female with a host of comorbidities, especiallyadvanced dementia, presented with failure to thrive kind of situation, labs weresignificantly abnormal with electrolyte disbalance, acute renal failure,metabolic acidosis and underlying sepsis from urinary tract infection. UTI isbeing treated with IV antibiotic. She is responding. The CT finding of colonicwall thickening as well as gastric distention with gastric wall thickening is anincidental finding. PLAN:1. Colonic wall thickening is not concerning. This diffuse colonic wall edemacould be due to underlying sepsis and hypoalbuminemia. This does not warrantany further investigation at this time. It seems to be self-limiting.2. Gastric distention, gastric wall thickening certainly needs furtherevaluation with direct visualization. Therefore, upper endoscopy should beconsidered when the patient is medically stable and has recovered well from hercurrent acute illness. 10/01/19- C diff ordered and pending collection. Diarrhea resolved. - Broaden stool studies. Pending collection.- PPI PO- Consider Megace if PO intake does not improve- Supportive care Coleman Sr V. 11/07/19 0901:Attestations Physician AttestationAgree w/findings plan:Patient seen and examined. 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 at 1403 RPT #:[id number] OF REPORTPRProgress [id number]:00:00G.[id number] for patient quadLLOZZALHVURRLG5746-73-07N44:01:[address] [facility] 2019-10-01 14:00:00 [id number]+VgUHjoXLwiTdLU xwj28DIHVlCtCBi0m jdqlNthZ+U515FGFvi4XGke6ku3051-12-02Q61:00:00 [facility] ([facility])Gastroenterology Progress NoteREPORT#:[id number] REPORT STATUS: SignedDATE:10/01/19 TIME: 1400 PATIENT: MAC AGUSTIN UNIT #: [id number]#: [id number] [address] [birth year] AGE: 74 SEX: F ATTEND: Joel Myers [facility] AUTHOR: Arian Anderson * ALL edits or amendments must be made on the electronic/computer document * Arian Anderson 10/01/19 1400:SubjectiveChief Complaint:weakHPI:Doing well. Diarrhea improved. No abdominal pain or nausea. Not eating much. Review of SystemsUnable to obtain due to:dementia Objective GeneralVS/I O:Last Documented: Result Date Time Pulse Ox 97 09/30 1146 B/P 107/71 09/30 1146 B/P Mean 83.0 09/30 1146 Temp 36.5 09/30 1146 Pulse 69 09/30 1146 Resp 18 09/30 1146 O2 Delivery Nasal cannula 09/29 2354 O2 Flow Rate 4.676559 09/29 2354 24 hour I O ending at 0700: 09/30 0700 09/29 1900 Intake Total 800.00 392.00 Output Total 660 Balance 800.00 -268.00 Intake, IV 500.00 392.00 Intake, Oral 300 Number Voids 1 Output, Stool 0 Output, Urine 660 Patient 63.4 kg Weight Patient Weight Weight (lb): 167Weight (oz): 15.88Weight (kg): 76.200 Medications:Active Meds + DC'd Last 24 HrsPantoprazole 40 MG BID@0600,1800 PO Dextrose/Water 1,000 ML .Q24H IV Zinc Oxide 1 APPLIC BID TOPICAL Lidocaine 1 EA Q24H TOPICAL Insulin Human Lispro 0 AC HS SUBQ Pantoprazole Sodium 40 MG DAILY IV (DC) Sodium Chloride 10 ML ASDIR PRN IV (DC) Dextrose/Water 250 ML .Q8H20M IV (DC) Morphine Sulfate 2 MG Q4H PRN PRN IV Acetaminophen 650 MG Q4H PRN PRN PO Heparin Sodium 5,000 UNIT Q12HR SUBQ (DA) Piperacillin Sod/Tazobactam Sod 3.375 GM Q12H IV (DC) Sodium Chloride 100 MLAlbumin Human 12.5 GM ASDIR PRN IV (DC) Heparin Sodium (Porcine) 1,000 UNIT ASDIR PRN DIALYSIS (DC) Mannitol 12.5 GM ASDIR PRN IV (DC) Sodium Chloride 2,000 ML ASDIR PRN IV (DC) Sodium Chloride 10 ML ASDIR PRN IV (DC) Sodium Chloride 250 ML ASDIR PRN IV (DC) Norepinephrine Bitartrate 250 ML ASDIR PRN IV (DC) Sodium Chloride 0 ASDIR PRN IV (DC) Physical ExamGeneral appearance: awake, orientedHEENT: moist mucosal membranesCardiovascular: normal S1/F9Vhdbgsnxdlu: clear to auscultationAbdomen: non-tender, normal bowel sounds, soft, no distentionExtremities: edemaMusculoskeletal: normal inspectionSkin: dry ResultsFindings/Data:Laboratory Tests 10/01/19399:[Embedded Image Not Available]Laboratory Tests 09/30 09/30 09/30 09/29 09/29 1145 0752 0400 2020 1620 Chemistry Sodium (134 - 147 mEq/L) 138 Potassium (3.4 - 5.0 mEq/L) 3.8 Chloride (100 - 108 mEq/L) 99 L Carbon Dioxide (21 - 33 mEq/L) 32 Anion Gap (0 - 20) 11 BUN (7 - 18 mg/dL) 25 H Creatinine (0.6 - 1.3 mg/dL) 2.6 H Glomerular Filtr Rate (70 - 80) 18.1 L Glucose (70 - 110 mg/dL) 174 H POC Glucose (70 - 110 MG/DL) 178 H 178 H 136 H 114 H Calcium (8.0 - 10.5 mg/dL) 8.1 Phosphorus (2.5 - 4.9 MG/DL) 3.2 Magnesium (1.8 - 2.4 mg/dL) 1.80 Laboratory Tests 10/01 399 Hematology WBC (4.5 - 11.0 x10 3/uL) 9.66 RBC (3.54 - 5.02 x10 6/uL) 2.98 L Hgb (11.0 - 15.0 g/dL) 8.9 L Hct (33.0 - 45.0 %) 27.9 L MCV (81.0 - 99.0 fL) 93.6 MCH (27.0 - 33.0 pg) 29.9 MCHC (33.0 - 37.0 g/dL) 31.9 L RDW (11.5 - 14.5 %) 13.9 Plt Count (150 - 400 x10 3/uL) 71 L MPV (7.0 - 9.0 fL) 12.8 H Neut % (Auto) (56.0 - 77.0 %) 83.0 H Lymph % (Auto) (14.0 - 32.0 %) 10.0 L [place] % (Auto) (4.8 - 9.0 %) 5.7 Eos % (Auto) (0.3 - 3.7 %) 0.7 Baso % (Auto) (0.0 - 2.0 %) 0.2 Neut # (Auto) (2.0 - 7.6 x10 3/uL) 8.01 H Lymph # (Auto) (1.0 - 3.8 x10 3/uL) 0.97 L [place] # (Auto) (0.1 - 0.8 x10 3/uL) 0.55 Eos # (Auto) (0.0 - 0.2 x10 3/uL) 0.07 Baso # (Auto) (0.0 - 0.2 x10 3/uL) 0.02 Abs Immat Gran (auto) (0.00 - 0.03 x10 3/uL) 0.04 H Add Manual Diff NO Immature Gran % (0.0 - 2.0 %) 0.4 Nucleated RBC % (0 - 0 %) 0.0 Nucleated RBCs # (Man) (0.0 - 0.1 x10 3/uL) 0.00 Results: labs reviewed, vital signs stable Diagnosis, Assessment PlanProblem List/A P: 1. Antibiotic-associated diarrhea Free Text A P:IMPRESSION: A 74-year-old female with a host of comorbidities, especiallyadvanced dementia, presented with failure to thrive kind of situation, labs weresignificantly abnormal with electrolyte disbalance, acute renal failure,metabolic acidosis and underlying sepsis from urinary tract infection. UTI isbeing treated with IV antibiotic. She is responding. The CT finding of colonicwall thickening as well as gastric distention with gastric wall thickening is anincidental finding. PLAN:1. Colonic wall thickening is not concerning. This diffuse colonic wall edemacould be due to underlying sepsis and hypoalbuminemia. This does not warrantany further investigation at this time. It seems to be self-limiting.2. Gastric distention, gastric wall thickening certainly needs furtherevaluation with direct visualization. Therefore, upper endoscopy should beconsidered when the patient is medically stable and has recovered well from hercurrent acute illness. 10/01/19- C diff ordered and pending collection. Diarrhea resolved. - Broaden stool studies. Pending collection.- PPI PO- Consider Megace if PO intake does not improve- Supportive care Coleman Sr V. 11/07/19 0901:Attestations Physician AttestationAgree w/findings plan:Patient seen and examined. 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 at 1403 at 0913 RPT #:[id number] OF REPORTPRProgress Pjgt9019-27-42X49:00:00G.[id number] for patient vnqlCKDYKPOEHQDMCX1507-08-46E24:14:[address] [facility] 2019-10-01 11:45:00 [id number] wnO7ghY8+Bfshue6v 8X8vJ3HDAC2Xxyaee0CdSSwvd39934-37-27F35:45:00 [facility] ConsultREPORT#:[id number] REPORT STATUS: SignedDATE:10/01/19 TIME: 1145 PATIENT: MAC AGUSTIN UNIT #: [id number]#: [id number] [address] [birth year] AGE: 74 SEX: F ATTEND: Joel Myers [facility] AUTHOR: Lucy Ayon PA-C * ALL edits or amendments must be made on the electronic/computer document * History of Present Illness HPIReason for consult: evaluation of Rehab needsRequesting clinician: Dr. Garibay:74 years old female with past medical history significant for Alzheimer's dementia, behavioral disturbance, hypertension, type 2 diabetes mellitus, migraine headaches, anxiety disorder, bowel and bladder incontinence, rheumatoidarthritis, frequent UTI was brought from [facility]. She is a skilled nursing resident secondary to Alzheimer's dementia with behavioral disturbances. She isbrought in secondary to hypothermia and ill-appearing. On admission she was noted to have a lactic acid of 19, pH of 6.8, white blood cell count of 22,000, and creatinine of 3.9. She was started on broad-spectrum IV antibiotics secondary to severe sepsis versus lactic acidosis from unknown cause. Infectionwas ruled out by multiple images including chest x-ray, CT abdomen pelvis, UA and sepsis work-up. There is initially a question of a pneumoperitoneum on x-ray of the abdomen which CT ruled out the finding. General surgery was consulted. No need for any intervention secondary to no acute abdomen. She is started on aggressive IV fluid hydration as well as hemodialysis by nephrology she has multiple electrolyte abnormalities including hypomagnesemia, hypokalemiakalemia, hypocalcemia and hypoalbuminemia. She was started on the DKA protocol and anion gap was able to be closed. White blood count trending down after completion of IV antibiotics x5 days. Lactic acid is back down to normal. Currently she is unreliable historian and unable to provide adequate informationon history. It was felt as though patient's decreased oral intake with dehydration as well as metformin because her initial severe metabolic acidosis and lactic acidosis. Metformin has been discontinued. Recent chest x-ray was performed revealing moderate pulmonary vascular congestion. She was started on IV Lasix for diuresis being managed by nephrology. She started developing diarrhea in which C. difficile is currently pending and gastroenterology has been consulted. Functional StatusPT evaluation:Pending evaluationOT evaluation:Pending evaluation HistoryPast medical history:Reports: Arthritis (RA), Dementia (Alzheimer's dementia), Depression/mood disorder (anxiety), Diabetes mellitus (type 2), Hypertension, Chronic pain. Additional medical history:Frequent UTI, incontinence of bladder and bowel, migraine headache, frequent fallsAdditional surgical history:UnknownAdditional family history:Noncontributory to current admissionAlcohol use: Denies EtOH useDrug use: Denies recreational drugsSmoking status for patients 13 years old or older: Unknown,if ever smokedOther social history: Lives in facilityAdditional social history:Lives is a long-term resident at [facility]. Has significant Alzheimer's dementia. Ambulates with a rolling walker. Medications:Home Medications: Medication Dose/Rte/Freq Days Qty Entered Last Max Daily Dose Reviewed metFORMIN (GLUCOPHAGE) 1,000 MG PO BID 09/26/19 09/26/19 Strength: 1,000 MG TAB 0919 0919 QUEtiapine (SEROquel) 25 MG PO BEDTIME 09/26/19 09/26/19 Strength: 25 MG TAB 0920 0921 DONEPEZIL (ARICEPT) 10 MG PO BEDTIME 09/26/19 09/26/19 Strength: 10 MG TAB 0921 0922 busPIRone (BUSPAR) 5 MG PO BID 09/26/19 09/26/19 Strength: 5 MG TAB 0922 0922 ACETAMINOPHEN (TYLENOL) 500 MG PO 09/26/19 09/26/19 Strength: 500 MG TAB Q6H PRN PRN 0923 0924 HEADACHE Current Hospital Medications:Anti-Infective Agents Sig/Rose Mary Start time Last Medication Dose Route Stop Time Status Admin Piperacillin Sod/ 3.375 GM Q12H 09/25 1800 DC 09/29 Tazobactam Sod IV 10/02 1759 0522 (ZOSYN 3.375GM) Sodium Chloride 100 ML (SODIUM CHLORIDE 0.9% 100 ML) Autonomic Drugs Sig/Rose Mary Start time Last Medication Dose Route Stop Time Status Admin Norepinephrine 250 ML ASDIR PRN 09/25 0700 DC 09/26 Bitartrate IV 10/25 0659 1215 (NOREPINEPHRINE 8 MG/ NS 250 ML) Blood Derivatives Sig/Rose Mary Start time Last Medication Dose Route Stop Time Status Admin Albumin Human 12.5 GM ASDIR PRN 09/25 1000 DC 09/25 (ALBUMINAR-25%) IV 10/26 0959 1344 Blood Formation,Coagulation Sig/Rose Mary Start time Last Medication Dose Route Stop Time Status Admin Heparin Sodium 5,000 UNIT Q12HR 09/25 2100 DA 09/28 (HEPARIN 5000 UNITS/ SUBQ 10/25 2059 0845 ML) Heparin Sodium 1,000 UNIT ASDIR PRN 09/25 1000 DC 09/26 (Porcine) DIALYSIS 10/26 0856 0944 (HEPARIN SODIUM) Central Nervous System Agents Sig/Rose Mary Start time Last Medication Dose Route Stop Time Status Admin Morphine Sulfate 2 MG Q4H PRN PRN 09/27 1415 AC 09/28 (morphine SULFATE) IV 10/02 1414 2318 Acetaminophen 650 MG Q4H PRN PRN 09/27 1345 AC 09/27 (TYLENOL 650MG/ PO 10/27 1344 1439 20.3ML) Electrolytic, Caloric, And Erica Sig/Rose Mary Start time Last Medication Dose Route Stop Time Status Admin Dextrose/Water 1,000 ML .Q24H 09/30 0800 AC 09/30 (DEXTROSE 5% WATER) IV 10/30 0759 1011 Potassium Chloride 50 ML Q1HR 09/29 1100 DC 09/29 (KCL 10MEQ/SWFI 50ML) IV 09/29 1259 1144 Sodium Chloride 10 ML ASDIR PRN 09/28 1115 AC 09/30 (SODIUM CHLORIDE) IV 10/28 1114 1010 Dextrose/Water 250 ML .Q8H20M 09/28 0930 DC 09/30 (DEXTROSE 10% IN IV 10/28 0929 0339 WATER) Mannitol 12.5 GM ASDIR PRN 09/25 1000 DC (MANNITOL 25% 12.5GM/ IV 10/26 0959 50ML) Sodium Chloride 2,000 ML ASDIR PRN 09/25 1000 DC 09/26 (SODIUM CHLORIDE IV 10/26 0959 0942 0.9%) Sodium Chloride 10 ML ASDIR PRN 09/25 1000 DC 09/26 (SODIUM CHLORIDE) IV 10/25 0959 0948 Sodium Chloride 250 ML ASDIR PRN 09/25 1000 DC (SODIUM CHLORIDE IV 10/25 0959 0.9%) Sodium Chloride 0 ASDIR PRN 09/25 0445 DC (SODIUM CHLORIDE) IV 10/25 0444 Gastrointestinal Drugs Sig/Rose Mary Start time Last Medication Dose Route Stop Time Status Admin Pantoprazole Sodium 40 MG DAILY 09/28 1115 AC 09/30 (PROTONIX) IV 10/28 1114 1010 Hormones And Synthetic Substit Sig/Rose Mary Start time Last Medication Dose Route Stop Time Status Admin Insulin Human Lispro 0 AC HS 09/28 1130 AC 09/29 (HUMALOG) SUBQ 10/28 1129 1150 Local Anesthetics (Parenteral) Sig/Rose Mary Start time Last Medication Dose Route Stop Time Status Admin Lidocaine 1 EA Q24H 09/28 1800 AC 09/29 (LIDODERM) TOPICAL 10/28 1559 1836 Skin And Mucous Membrane Agent Sig/Rose Mary Start time Last Medication Dose Route Stop Time Status Admin Zinc Oxide 1 APPLIC BID 09/28 2100 AC 09/30 (ZINC OXIDE 30 GM TOPICAL 10/28 2058 [address]) Allergies:Coded Allergies:penicillamine (UNKNOWN 09/26/19) Objective Physical ExamVS:Last Documented: Result Date Time Pulse Ox 97 09/30 1146 B/P 107/71 09/30 1146 B/P Mean 83.0 09/30 1146 Temp 97.7 09/30 1146 Pulse 69 09/30 1146 Resp 18 09/30 1146 O2 Delivery Nasal cannula 09/29 235 O2 Flow Rate 4.149412 09/29 2354 Patient Weight Weight (lb): 167Weight (oz): 15.88Weight (kg): 76.200 General appearance: alert, awakePsych: normal affectHEENT: anicteric, mucosal membranes moist, sclera clearNeck: supple, no JVDCardiovascular: regular rate rhythm, S1/F8Mizbawctjzd: aerating well, clear bilaterallyAbdomen: bowel sounds present, non-distended, soft, soft, non-tenderSkin: dry, intactMusculoskeletal - general: Musculoskeletal - general: joints normal, range of motion normal, no swellingNeuro/FAST FOOD ATTENDANT: altered mental status, alert, no motor deficits, no sensory deficits ResultsFindings/Data:Laboratory Tests: 09/30 09/30 09/29 09/29 0752 0400 2019 162 Chemistry Sodium (134 - 147 mEq/L) 138 Potassium (3.4 - 5.0 mEq/L) 3.8 Chloride (100 - 108 mEq/L) 99 L Carbon Dioxide (21 - 33 mEq/L) 32 Anion Gap (0 - 20) 11 BUN (7 - 18 mg/dL) 25 H Creatinine (0.6 - 1.3 mg/dL) 2.6 H Glomerular Filtr Rate (70 - 80) 18.1 L Glucose (70 - 110 mg/dL) 174 H POC Glucose (70 - 110 MG/DL) 178 H 136 H 114 H Calcium (8.0 - 10.5 mg/dL) 8.1 Phosphorus (2.5 - 4.9 MG/DL) 3.2 Magnesium (1.8 - 2.4 mg/dL) 1.80 Hematology WBC (4.5 - 11.0 x10 3/uL) 9.66 RBC (3.54 - 5.02 x10 6/uL) 2.98 L Hgb (11.0 - 15.0 g/dL) 8.9 L Hct (33.0 - 45.0 %) 27.9 L MCV (81.0 - 99.0 fL) 93.6 MCH (27.0 - 33.0 pg) 29.9 MCHC (33.0 - 37.0 g/dL) 31.9 L RDW (11.5 - 14.5 %) 13.9 Plt Count (150 - 400 x10 3/uL) 71 L MPV (7.0 - 9.0 fL) 12.8 H Neut % (Auto) (56.0 - 77.0 %) 83.0 H Lymph % (Auto) (14.0 - 32.0 %) 10.0 L [place] % (Auto) (4.8 - 9.0 %) 5.7 Eos % (Auto) (0.3 - 3.7 %) 0.7 Baso % (Auto) (0.0 - 2.0 %) 0.2 Neut # (Auto) (2.0 - 7.6 x10 3/uL) 8.01 H Lymph # (Auto) (1.0 - 3.8 x10 3/uL) 0.97 L [place] # (Auto) (0.1 - 0.8 x10 3/uL) 0.55 Eos # (Auto) (0.0 - 0.2 x10 3/uL) 0.07 Baso # (Auto) (0.0 - 0.2 x10 3/uL) 0.02 Abs Immat Gran (auto) (0.00 - 0.03 x10 3/uL) 0.04 H Add Manual Diff NO Immature Gran % (0.0 - 2.0 %) 0.4 Nucleated RBC % (0 - 0 %) 0.0 Nucleated RBCs # (Man) (0.0 - 0.1 x10 3/uL) 0.00 Microbiology:09/29 144 STOOL: Giardia Antigen (ANA) - ORD09/29 144 STOOL: Ova and Parasites - ORD09/29 144 STOOL: Stool Leukocytes - ORD09/29 144 STOOL: Campylobacter Culture - ORD09/29 144 STOOL: Escherichia coli 0157 Culture - ORD09/30 1443 STOOL: Stool Culture - ORD Radiology data:Recent Impressions-Last 72 HrsRADIOLOGY - XR CHEST 1 V 09/28 0441 Report Impression - Status: SIGNED Entered: 09/29/2019 0712 IMPRESSION:1. Severe pulmonary vascular congestion and or pulmonary edema withdeveloping moderate bilateral layering pleural effusions.2. Developing dense left retrocardiac opacity, probably representingatelectasis or early consolidation.3. Enlarged cardiac silhouette. SL: [id number] By: Dennis Duran M.D.RADIOLOGY - XR ABDOMEN 1V (KUB) 09/29 513 Report Impression - Status: SIGNED Entered: 09/30/2019 0736 IMPRESSION:Nonobstructed bowel gas pattern. SL: [id number] By: Liam Dumont M.D.RADIOLOGY - XR CHEST 1 V 09/29 513 Report Impression - Status: SIGNED Entered: 09/30/2019 0737 IMPRESSION:1. Decreasing bilateral pleural effusions with decreasing bibasilaratelectasis/infiltrates.2. Decreasing interstitial edema.3. Removal of right jugular line. SL: [id number] By: GaryBJIrene Dumont M.D. Diagnosis, Assessment PlanProblem List/A P: 1. Acute renal failure 2. Physical deconditioning 3. Hypomagnesemia 4. Lactic acidosis 5. DKA (diabetic ketoacidoses) 6. Metabolic acidosis 7. Gastric distention Free Text A P:74 years old female with past medical history significant for Alzheimer's dementia, behavioral disturbance, hypertension, type 2 diabetes mellitus, migraine headaches, anxiety disorder, bowel and bladder incontinence, rheumatoidarthritis, frequent UTI. She was admitted secondary to severe lactic acidosis, metabolic acidosis with anion gap secondary to metformin and dehydration. Started on hemodialysis secondary to acute renal failure and lactic acidosis with multiple electrolyte abnormalities including hypokalemia, hypo-Juan anemia, hypocalcemia, hypoalbuminemia. Patient then developed acute pulmonary vascular congestion is being diuresed. Plan: Physical therapy, Occupational Therapy and speech therapy have been consulted. Due to patient being an unreliable historian and moderate dementia she would benefit from returning to snf facility following her [facility]. I discussed with the patient's inoljnls-wv-uag who is on the chart as 1 of the contacts and she states their wish is for her to return to [facility] once medically cleared. Thank you for allowing us to participate in the care of this patient. We will continue to follow along and make further rehab recommendations. at 1155 RPT #:[id number] OF REPORTDZSvrpbtqqaoaz2151-96-25B68:45:00G.[id number] for patient dkqnEDOXNOWAXXXDPZ6027-97-44G10:55:27 [facility] 2019-10-01 08:01:00 [id number] J3vSv1v1Mtd082tFI iJ/LqpXSWrsjK04+DcWpVgEQyw3409-98-78W37:01:00 [facility]ist Progress NoteREPORT#:[id number] REPORT STATUS: SignedDATE:10/01/19 TIME: 0801 PATIENT: MAC AGUSTIN UNIT #: [id number]#: [id number] [address] AGE: 74 SEX: F ATTEND: Joel Myers AUTHOR: Joel Myers MD * ALL edits or amendments must be made on the electronic/computer document * SubjectiveChief Complaint:follow up for NATHEN/CKD, HTN. feels ok. not eating well. no fever, denies pain. Review of SystemsAdditional notes:12 point ROS negative except for mentioned in HPI. Objective GeneralVS/I O:Vital Signs: Date Time Temp Pulse Resp B/P B/P Pulse O2 O2 Flow FiO2 Mean Ox Delivery Rate 09/30 0753 97.5 66 18 101/67 78.3 95 09/30 0437 97.9 69 18 111/73 85.6 100 09/29 2354 Nasal 4.913290 cannula 09/29 2258 97.5 54 18 113/74 87.0 100 09/29 1948 97.5 60 18 103/66 78.6 100 04/20 1830 58 11 120/58 83 100 04/20 1800 58 11 107/61 76 100 Nasal 4.562332 cannula 09/29 1730 58 12 114/58 83 100 04/20 1700 58 11 96/50 65 100 Nasal 4.422320 cannula 09/29 1630 57 12 109/55 78 100 04/20 1600 97.5 63 19 99/55 69 100 Nasal 4.096482 cannula 09/29 1530 59 10 93/55 69 100 04/20 1500 60 11 93/50 64 100 Nasal 4.149688 cannula 09/29 1430 59 12 97/52 68 100 04/20 1400 60 11 112/57 75 100 Nasal 4.160414 cannula 09/29 1332 58 10 112/57 82 100 / 1300 60 12 99/53 68 100 Nasal 4.594861 cannula 09/29 1231 69 14 125/60 86 100 04/20 1200 97.5 59 10 98/56 70 100 Nasal 4.687230 cannula 09/29 1131 58 10 126/57 82 100 04/20 1100 56 13 126/58 80 100 Nasal 4.871536 cannula 09/29 1031 55 11 122/60 87 100 04/20 1000 60 12 121/58 79 100 Nasal 4.519272 cannula 09/29 0930 56 14 101/52 73 100 /20 0900 57 10 107/53 71 100 Nasal 4.579206 cannula 09/29 0831 61 11 84/48 61 100 04/20 0825 100 Nasal 4.019518 cannula 24 hour I O ending at 0700: 09/30 0700 09/29 1900 Intake Total 800.00 392.00 Output Total 660 Balance 800.00 -268.00 Intake, IV 500.00 392.00 Intake, Oral 300 Number Voids 1 Output, Stool 0 Output, Urine 660 Patient 63.4 kg Weight Patient Weight Weight (lb): 167Weight (oz): 15.88Weight (kg): 76.200 Medications:Active Meds + DC'd Last 24 HrsDextrose/Water 1,000 ML .Q24H IV (UNV) Potassium Chloride 50 ML Q1HR IV (DC) Calcium Gluconate 1,000 MG ONCE ONE IV (DC) Sodium Chloride 100 MLZinc Oxide 1 APPLIC BID TOPICAL Lidocaine 1 EA Q24H TOPICAL Insulin Human Lispro 0 AC HS SUBQ Pantoprazole Sodium 40 MG DAILY IV Sodium Chloride 10 ML ASDIR PRN IV Dextrose/Water 250 ML .Q8H20M IV (DCr) Vancomycin HCl 1,000 MG DIALYSIS-DOSE AFTER IV (DC) Sodium Chloride 250 MLMorphine Sulfate 2 MG Q4H PRN PRN IV Acetaminophen 650 MG Q4H PRN PRN PO Heparin Sodium 5,000 UNIT Q12HR SUBQ (DA) Piperacillin Sod/Tazobactam Sod 3.375 GM Q12H IV (DC) Sodium Chloride 100 MLMiscellaneous Information 1 EACH ASDIR IV (DC) Albumin Human 12.5 GM ASDIR PRN IV (DC) Heparin Sodium (Porcine) 1,000 UNIT ASDIR PRN DIALYSIS (DC) Mannitol 12.5 GM ASDIR PRN IV (DC) Sodium Chloride 2,000 ML ASDIR PRN IV (DC) Sodium Chloride 10 ML ASDIR PRN IV (DC) Sodium Chloride 250 ML ASDIR PRN IV (DC) Norepinephrine Bitartrate 250 ML ASDIR PRN IV (DC) Sodium Chloride 0 ASDIR PRN IV (DC) Physical ExamGeneral appearance: confused (intermittently), alert, awakeHead/Eyes: atraumatic, normocephalicENT: moist mucosal membranesNeck: non-tender, no JVD, no masses or swellingCardiovascular: normal heart sounds, regular rate rhythmRespiratory: decreased breath sounds, rhonchi, symmetric expansion, no distress,no rales appreciated on anterior examAbdomen: soft, no distention, no guarding, no reboundGenitourinary: no bladder distentionExtremities: edema (bLE +1), no clubbing, no cyanosisNeuro/FAST FOOD ATTENDANT: no motor deficitsSkin: no rashPsychiatry: normal affect, normal mood ResultsFindings/Data:Laboratory Tests 09/30 09/29 09/29 09/29 09/29 0400 2020 1620 1147 0819 Chemistry Sodium (134 - 147 mEq/L) 138 Potassium (3.4 - 5.0 mEq/L) 3.8 Chloride (100 - 108 mEq/L) 99 L Carbon Dioxide (21 - 33 mEq/L) 32 Anion Gap (0 - 20) 11 BUN (7 - 18 mg/dL) 25 H Creatinine (0.6 - 1.3 mg/dL) 2.6 H Glomerular Filtr Rate (70 - 80) 18.1 L Glucose (70 - 110 mg/dL) 174 H POC Glucose (70 - 110 MG/DL) 136 H 114 H 162 H Calcium (8.0 - 10.5 mg/dL) 8.1 Phosphorus (2.5 - 4.9 MG/DL) 3.2 Magnesium (1.8 - 2.4 mg/dL) 1.80 B-Natriuretic Peptide (0 - 100 PG/ML) 492.2 H 09/29 09/29 0819 0810 Chemistry Sodium (134 - 147 mEq/L) 140 Potassium (3.4 - 5.0 mEq/L) 3.7 Chloride (100 - 108 mEq/L) 102 Carbon Dioxide (21 - 33 mEq/L) 32 Anion Gap (0 - 20) 10 BUN (7 - 18 mg/dL) 23 H Creatinine (0.6 - 1.3 mg/dL) 2.4 H Glomerular Filtr Rate (70 - 80) 19.8 L Glucose (70 - 110 mg/dL) 155 H POC Glucose (70 - 110 MG/DL) 146 H Calcium (8.0 - 10.5 mg/dL) 7.2 L Phosphorus (2.5 - 4.9 MG/DL) 3.5 Magnesium (1.8 - 2.4 mg/dL) 1.90 Total Bilirubin (<1.5 MG/DL) 0.3 Direct Bilirubin (0.0 - 0.30 MG/DL) 0.10 Indirect Bilirubin (MG/DL) 0.20 AST (15 - 37 IUnit/L) 31 ALT (15 - 65 IUnit/L) 39 Total Alk Phosphatase (20 - 125 IUnit/L) 70 Lactate Dehydrogenase (84 - 246 IUnits/L) 270 H Total Protein (6.4 - 8.2 g/dL) 4.5 L Albumin (3.4 - 5.0 g/dL) 1.90 L Laboratory Tests 09/29 818 Coagulation INR (0.8 - 1.2) 1.3 H PTT ([place]) (25.0 - 39.5 Seconds) 28.5 PT Patient/Control Mix (9.3 - 12.9 SECONDS) 14.3 H Diagnosis, Assessment Plan Free Text DxA P NotesFree text DxA P notes:Severe lactic acidosisSevere metabolic acidosisAcute renal failureHypocalcemiaHypomagnesemia?Septic shock vs lactic acidosis from metforminDehydrationHypothermiaDMHTNDementia with behavior disturbancepersistent hypoglycemia Plan:Ms. Agustin is a 74 yo female with non-specific symptoms of not feeling well, poor appetite that was found to have abnormal labs at [facility], sent to ED for evaluation. In the ED, found to have severe lactic and metabolic acidosis. Discussed at length with ICU (Dr. Lin) and Renal (Dr Aguilar). Given her [facility] imaging, urinalysis, CXR are unremarkable for this level of acidosis, perhaps this acidosis is secondary to metformin. Plan is to dialyize patient to look for improvement. If no improvement, perhaps this is ischemic bowel. Will continue empiric Zosyn. - Zosyn- blood cultures pending- hold home meds- Accuchecks and SSI- replace electrolytes- heparin for DVT prophylaxsis 09/26Improved lactic acidosis with dialysis. Given improvement, likely this was lactic acidosis secondary to metformin. WBC persistently elevated at 19, will continue broad spectrum abx for now - blood cultures negative - UA unremarkable - monitor CBC for downtrend - if WBC remains elevated with mention of possible neoplasm in stomach, would consider work up however, this patient has dementia with low quality of life, not a good candidate for work up/treatment.BS well controlled with current insulin scheduleCheck labs in am 09/27Lactate remains normal, continue to hold metforminPt noted return of anion gap acidosis with ketonuria. Discussed with Dr. Aguilar, nephrology. Pt placed on DKA protocol to close anion gap, on D10 for glucose needs while on insulin drip.BNP elevated with clear lungs, no dependent edema, decreased O2 requirement. Give one dose of Lasix 40 mg IV, check CXR in the am, monitor for volume overload while getting DKA fluids.WBC decreased to 15, continue abx for now, d/c after 5 daysSome blood noted in stool, CT with signs of chronic inflammation. Given her dementia, unsure that patient would tolerate bowel prep. GI consulted. Appreciate input on area in stomach with possible neoplasm. Check labs in am 09/28Anion gap closed, off insulin dripElevated lactate, monitorCXR shows severe vascular congestion and pleural fluid, likely related to fluidsgiven for lactic acidosis and metabolic acidosis, pt not in respiratory distress - Lasix 60 mg IV q8 iniated by nephrology - D10 at 30 cc/hr to maintain blood sugarWBC decreased to 13, d/c abx after 5 daysColon with chronic inflammation, no work up per GIWill need EGD to evaluate abnormality in gastric wall once improvedCheck labs in am 420Off insulin dripCXR reviewedCont lasixWBC count came down to 10.5On zosynTransfer to the floordw RN, TRUCK DRIVER TEAMSTER, consultantsCXR and telemetry personally reviewedFurther recs per clinical course 10/01/2019 - blood sugars stable on D10W. will switch to D5W - consider endo eval if persistently hypoglycemic - monitor renal function closely - off antibiotics - await stool samples. no diarrhea overnight - PT/OT - start mobilizing. rehab eval - on IV PPI. ? switch to po - will defer to GI - ? need for EGD total time spent with evaluating patient/data as well as providing education/counselling to patient was more than 35 minutes at 0807 RPT #:[id number] OF REPORTPRProgress Rpwq1441-02-16X18:01:00G.[id number] for patient [id number]:08:[address] [facility] 2019-10-01 07:00:00 [id number] PjuoAA6iI1V/Rs2BT oWTXBCzK0hlYj2jmFioJZ0oO3V1245-18-09V56:00:00 [facility] ([facility])Nephrology Progress NoteREPORT#:[id number] REPORT STATUS: SignedDATE:10/01/19 TIME: 0700 PATIENT: MAC AGUSTIN UNIT #: [id number]#: [id number] [address] [birth year] AGE: 74 SEX: F ATTEND: Joel Myers [facility] AUTHOR: Rabia Aguilar MD * ALL edits or amendments must be made on the electronic/computer document * SubjectiveChief Complaint:AMS/Lactic acidosis/AKIUnable to obtain: dementiaComments:Patient seen and evaluated, HPI no change from initial, feels okay, eating breakfast Review of SystemsUnable to obtain due to:Dementia Objective GeneralVS/I O:Vital Signs: Date Time Temp Pulse Resp B/P B/P Pulse O2 O2 Flow FiO2 Mean Ox Delivery Rate 09/30 0437 36.6 69 18 111/73 85.6 100 04/ 2354 Nasal 4.431106 cannula 09/29 2258 36.4 54 18 113/74 87.0 100 / 1948 36.4 60 18 103/66 78.6 100 04/20 1830 58 11 120/58 83 100 04/20 1800 58 11 107/61 76 100 Nasal 4.298514 cannula 09/29 1730 58 12 114/58 83 100 04/20 1700 58 11 96/50 65 100 Nasal 4.271549 cannula 09/29 1630 57 12 109/55 78 100 04/20 1600 36.4 63 19 99/55 69 100 Nasal 4.580338 cannula 09/29 1530 59 10 93/55 69 100 04/20 1500 60 11 93/50 64 100 Nasal 4.515360 cannula /20 1430 59 12 97/52 68 100 04/20 1400 60 11 112/57 75 100 Nasal 4.289206 cannula /20 1332 58 10 112/57 82 100 04/20 1300 60 12 99/53 68 100 Nasal 4.490290 cannula 09/29 1231 69 14 125/60 86 100 04/20 1200 36.4 59 10 98/56 70 100 Nasal 4.625655 cannula /20 1131 58 10 126/57 82 100 04/20 1100 56 13 126/58 80 100 Nasal 4.293840 cannula /20 1031 55 11 122/60 87 100 04/20 1000 60 12 121/58 79 100 Nasal 4.096136 cannula 04/20 0930 56 14 101/52 73 100 04/20 0900 57 10 107/53 71 100 Nasal 4.901559 cannula 04/20 0831 61 11 84/48 61 100 04/20 0825 100 Nasal 4.900553 cannula 20 0800 Nasal 4.912500 cannula 04/20 0800 36.4 58 13 129/59 82 100 Nasal 4.359478 cannula 09/29 0730 60 11 113/56 80 100 24 hour I O ending at 0700: 09/30 0700 09/29 1900 Intake Total 800.00 392.00 Output Total 660 Balance 800.00 -268.00 Intake, IV 500.00 392.00 Intake, Oral 300 Number Voids 1 Output, Stool 0 Output, Urine 660 Patient 63.4 kg Weight MedicationsActive Meds + DC'd Last 24 HrsPotassium Chloride 50 ML Q1HR IV (DC) Calcium Gluconate 1,000 MG ONCE ONE IV (DC) Sodium Chloride 100 MLZinc Oxide 1 APPLIC BID TOPICAL Lidocaine 1 EA Q24H TOPICAL Insulin Human Lispro 0 AC HS SUBQ Pantoprazole Sodium 40 MG DAILY IV Sodium Chloride 10 ML ASDIR PRN IV Dextrose/Water 250 ML .Q8H20M IV Vancomycin HCl 1,000 MG DIALYSIS-DOSE AFTER IV (DC) Sodium Chloride 250 MLMorphine Sulfate 2 MG Q4H PRN PRN IV Acetaminophen 650 MG Q4H PRN PRN PO Heparin Sodium 5,000 UNIT Q12HR SUBQ (DA) Piperacillin Sod/Tazobactam Sod 3.375 GM Q12H IV (DC) Sodium Chloride 100 MLMiscellaneous Information 1 EACH ASDIR IV (DC) Albumin Human 12.5 GM ASDIR PRN IV (DC) Heparin Sodium (Porcine) 1,000 UNIT ASDIR PRN DIALYSIS (DC) Mannitol 12.5 GM ASDIR PRN IV (DC) Sodium Chloride 2,000 ML ASDIR PRN IV (DC) Sodium Chloride 10 ML ASDIR PRN IV (DC) Sodium Chloride 250 ML ASDIR PRN IV (DC) Norepinephrine Bitartrate 250 ML ASDIR PRN IV (DC) Sodium Chloride 0 ASDIR PRN IV (DC) Physical ExamGeneral appearance: alert, no acute distressHead/eyes: atraumatic, normocephalicENT: normal noseNeck: supple/no meningismusCardiovascular: normal heart sounds, no rubRespiratory: aerating well, symmetric expansionAbdomen: softGenitourinary: ballard, urineExtremities: no edemaMusculoskeletal: normal inspectionNeuro/FAST FOOD ATTENDANT: altered mental statusSkin: dry ResultsFindings/Data:Laboratory Tests 09/27 1147 Blood Gas Puncture Site R Rad ABG pH (7.35 - 7.45) 7.395 ABG pCO2 (35 - 45 mmHg) 24.1 *L ABG pO2 (80 - 100 mmHg) 136 H ABG HCO3 (22.0 - 26.0 mmol/L) 14.7 L ABG Total CO2 15 ABG O2 Saturation (90 - 100 %) 99 ABG Base Excess (-4 - 4 mmol/L) -10.0 L Temperature (F) 98.6 O2 Delivery Device Cannula Laboratory Tests 09/29 1620 1147 0819 Chemistry POC Glucose (70 - 110 MG/DL) 136 H 114 H 162 H B-Natriuretic Peptide (0 - 100 PG/ML) 492.2 H 09/29 09/29 09/29 09/29 0819 0810 0531 0531 Chemistry Sodium (134 - 147 mEq/L) 140 138 Potassium (3.4 - 5.0 mEq/L) 3.7 3.5 Chloride (100 - 108 mEq/L) 102 100 Carbon Dioxide (21 - 33 mEq/L) 32 34 H Anion Gap (0 - 20) 10 8 BUN (7 - 18 mg/dL) 23 H 22 H Creatinine (0.6 - 1.3 mg/dL) 2.4 H 2.4 H Glomerular Filtr Rate (70 - 80) 19.8 L 19.8 L Glucose (70 - 110 mg/dL) 155 H 270 H POC Glucose (70 - 110 MG/DL) 146 H Lactic Acid (0.4 - 1.9 mmol/L) 1.3 Calcium (8.0 - 10.5 mg/dL) 7.2 L 7.4 L Ionized Calcium Jefry (1.12 - 1.32 MMOL/L) 1.05 L Phosphorus (2.5 - 4.9 MG/DL) 3.5 3.2 Magnesium (1.8 - 2.4 mg/dL) 1.90 1.90 Total Bilirubin (<1.5 MG/DL) 0.3 0.3 Direct Bilirubin (0.0 - 0.30 MG/DL) 0.10 Indirect Bilirubin (MG/DL) 0.20 AST (15 - 37 IUnit/L) 31 31 ALT (15 - 65 IUnit/L) 39 39 Total Alk Phosphatase (20 - 125 IUnit/L) 70 69 Lactate Dehydrogenase (84 - 246 IUnits/L) 270 H Total Protein (6.4 - 8.2 g/dL) 4.5 L 5.0 L Albumin (3.4 - 5.0 g/dL) 1.90 L 1.80 L 09/28 09/28 09/28 09/28 09/28 2337 1724 1724 1551 1231 Chemistry Sodium (134 - 147 mEq/L) 139 139 Potassium (3.4 - 5.0 mEq/L) 3.9 3.7 Chloride (100 - 108 mEq/L) 101 103 Carbon Dioxide (21 - 33 mEq/L) 34 H 31 Anion Gap (0 - 20) 8 9 BUN (7 - 18 mg/dL) 23 H 21 H Creatinine (0.6 - 1.3 mg/dL) 2.4 H 2.1 H Glomerular Filtr Rate (70 - 80) 19.8 L 23.2 L Glucose (70 - 110 mg/dL) 231 H 186 H POC Glucose (70 - 110 MG/DL) 154 H 143 H Lactic Acid (0.4 - 1.9 mmol/L) 1.2 Calcium (8.0 - 10.5 mg/dL) 7.6 L 7.0 L Phosphorus (2.5 - 4.9 MG/DL) 3.2 2.8 Magnesium (1.8 - 2.4 mg/dL) 1.80 2.00 09/28 09/28 09/28 09/28 09/28 1225 1008 0753 UNK 0444 Chemistry Sodium (134 - 147 mEq/L) 141 Potassium (3.4 - 5.0 mEq/L) 4.5 Chloride (100 - 108 mEq/L) 104 Carbon Dioxide (21 - 33 mEq/L) 31 Anion Gap (0 - 20) 11 BUN (7 - 18 mg/dL) 19 H Creatinine (0.6 - 1.3 mg/dL) 2.1 H Glomerular Filtr Rate (70 - 80) 23.2 L Glucose (70 - 110 mg/dL) 156 H POC Glucose (70 - 110 MG/DL) 112 H 79 Lactic Acid (0.4 - 1.9 mmol/l) 2.1 H 4.0 H Calcium (8.0 - 10.5 mg/dL) 7.3 L Phosphorus (2.5 - 4.9 MG/DL) 3.1 Magnesium (1.8 - 2.4 mg/dL) 1.90 09/28 09/28 09/28 09/28 09/27 0443 0443 0443 0136 2314Chemistry Sodium (134 - 147 mEq/L) 142 Potassium (3.4 - 5.0 mEq/L) 2.7 *L Chloride (100 - 108 mEq/L) 103 Carbon Dioxide (21 - 33 mEq/L) 32 Anion Gap (0 - 20) 10 BUN (7 - 18 mg/dL) 19 H Creatinine (0.6 - 1.3 mg/dL) 2.2 H Glomerular Filtr Rate (70 - 80) 21.9 L Glucose (70 - 110 mg/dL) 109 POC Glucose (70 - 110 MG/DL) 134 H 138 H Hemoglobin A1c (4.8 - 6.0 %A1C) 6.0 Calcium (8.0 - 10.5 mg/dL) 7.2 L Phosphorus (2.5 - 4.9 MG/DL) 1.4 L Magnesium (1.8 - 2.4 mg/dL) 2.00 B-Natriuretic Peptide (0 - 100 546.7 HPG/ML) 09/27 09/27 09/27 09/27 09/27 2312 2312 2044 1842 1804 Chemistry Sodium (134 - 147 mEq/L) 143 142 Potassium (3.4 - 5.0 mEq/L) 3.5 3.3 L Chloride (100 - 108 mEq/L) 104 104 Carbon Dioxide (21 - 33 mEq/L) 30 22 Anion Gap (0 - 20) 13 19 BUN (7 - 18 mg/dL) 20 H 20 H Creatinine (0.6 - 1.3 mg/dL) 2.1 H 1.9 H Glomerular Filtr Rate (70 - 80) 23.2 L 26.0 L Glucose (70 - 110 mg/dL) 128 H 153 H POC Glucose (70 - 110 MG/DL) 130 H 151 H Calcium (8.0 - 10.5 mg/dL) 7.6 L 7.1 L Phosphorus (2.5 - 4.9 MG/DL) 1.9 L 2.2 L Magnesium (1.8 - 2.4 mg/dL) 2.00 2.10 09/27 09/27 09/27 09/27 09/27 1700 1502 1407 1301 1230 Chemistry POC Glucose (70 - 110 MG/DL) 152 H 123 H 138 H 149 H Magnesium (1.8 - 2.4 mg/dL) 2.30 09/27 09/27 1044 1044 Chemistry Sodium (134 - 147 mEq/L) 143 Potassium (3.4 - 5.0 mEq/L) 3.2 L Chloride (100 - 108 mEq/L) 104 Carbon Dioxide (21 - 33 mEq/L) 18 L Anion Gap (0 - 20) 24 H BUN (7 - 18 mg/dL) 20 H Creatinine (0.6 - 1.3 mg/dL) 1.5 H Glomerular Filtr Rate (70 - 80) 34.1 L Glucose (70 - 110 mg/dL) 159 H Lactic Acid (0.4 - 1.9 mmol/L) 1.3 Calcium (8.0 - 10.5 mg/dL) 7.4 L Laboratory Tests 09/29 0819 Coagulation INR (0.8 - 1.2) 1.3 H PTT ([place]) (25.0 - 39.5 Seconds) 28.5 PT Patient/Control Mix (9.3 - 12.9 SECONDS) 14.3 H Laboratory Tests 09/29 09/28 0531 0443 Hematology WBC (4.5 - 11.0 x10 3/uL) 10.57 13.57 H RBC (3.54 - 5.02 x10 6/uL) 2.60 L 2.58 L Hgb (11.0 - 15.0 g/dL) 7.8 L 7.8 L Hct (33.0 - 45.0 %) 24.0 L 23.0 L MCV (81.0 - 99.0 fL) 92.3 89.1 MCH (27.0 - 33.0 pg) 30.0 30.2 MCHC (33.0 - 37.0 g/dL) 32.5 L 33.9 RDW (11.5 - 14.5 %) 14.0 14.0 Plt Count (150 - 400 x10 3/uL) 60 L 81 L MPV (7.0 - 9.0 fL) 12.3 H 12.0 H Neut % (Auto) (56.0 - 77.0 %) 81.0 H 86.6 H Lymph % (Auto) (14.0 - 32.0 %) 12.7 L 7.1 L [place] % (Auto) (4.8 - 9.0 %) 5.2 4.6 L Eos % (Auto) (0.3 - 3.7 %) 0.5 0.1 L Baso % (Auto) (0.0 - 2.0 %) 0.1 0.1 Neut # (Auto) (2.0 - 7.6 x10 3/uL) 8.57 H 11.76 H Lymph # (Auto) (1.0 - 3.8 x10 3/uL) 1.34 0.96 L [place] # (Auto) (0.1 - 0.8 x10 3/uL) 0.55 0.62 Eos # (Auto) (0.0 - 0.2 x10 3/uL) 0.05 0.01 Baso # (Auto) (0.0 - 0.2 x10 3/uL) 0.01 0.02 Abs Immat Gran (auto) (0.00 - 0.03 x10 3/uL) 0.05 H 0.20 H Add Manual Diff NO NO Immature Gran % (0.0 - 2.0 %) 0.5 1.5 Nucleated RBC % (0 - 0 %) 0.0 0.0 Nucleated RBCs # (Man) (0.0 - 0.1 x10 3/uL) 0.00 0.00 Laboratory Tests 09/28 0443 Toxicology Acetone, Quant (NEG - <20 mg/dL) NEGATIVE - <20mg/dL 09/27 1044 Toxicology Acetone, Quant (NEG - <20 mg/dL) Large - 80-100 mg/dL Laboratory Tests 09/27 1044 Urines Urine Color (YEL/STRAW) YELLOW Urine Appearance (CLEAR) SL CLOUDY Urine pH (5.0 - 7.0) 5.0 Ur Specific [place] (1.005 - 1.030) 1.006 Urine Protein (NEGATIVE) 1+ H Urine Glucose (UA) (NEGATIVE) 3+ H Urine Ketones (NEGATIVE) 2+ H Urine Blood (NEGATIVE) 3+ H Urine Nitrite (NEGATIVE) NEGATIVE Urine Bilirubin (NEGATIVE) NEGATIVE Urine Urobilinogen (0.2 - 1.0 mg/dL) 0.2 Ur Leukocyte Esterase (NEGATIVE) 2+ H Urine RBC (0 - 3 RBC/HPF) 21-50 Urine WBC (0 - 3 WBC/HPF) 21-50 H Ur Squamous Epith Cells (NONE SEEN /HPF) 0-5 Ur Transition Epith Cell (NONE SEEN /HPF) TRACE Amorphous Sediment (NONE /HPF) 1+ H Urine Bacteria (NONE SEEN /HPF) 1+ H Hyaline Casts (NONE SEEN /LPF) 3-5 Urine Mucus (NONE SEEN /LPF) TRACE Recent Impressions:RADIOLOGY - XR ABDOMEN 1V (KUB) 09/29 513 Report Impression - Status: SIGNED Entered: 09/30/201936 IMPRESSION:Nonobstructed bowel gas pattern. SL: [id number] By: Liam Dumont M.D.RADIOLOGY - XR CHEST 1 V 09/29 513 Report Impression - Status: SIGNED Entered: 09/30/201937 IMPRESSION:1. Decreasing bilateral pleural effusions with decreasing bibasilaratelectasis/infiltrates.2. Decreasing interstitial edema.3. Removal of right jugular line. SL: [id number] By: Liam Dumont M.D. Laboratory Tests 09/29 1620 1147 0819 Chemistry POC Glucose (70 - 110 MG/DL) 136 H 114 H 162 H B-Natriuretic Peptide (0 - 100 PG/ML) 492.2 H 09/29 09/29 0819 0810 Chemistry Sodium (134 - 147 mEq/L) 140 Potassium (3.4 - 5.0 mEq/L) 3.7 Chloride (100 - 108 mEq/L) 102 Carbon Dioxide (21 - 33 mEq/L) 32 Anion Gap (0 - 20) 10 BUN (7 - 18 mg/dL) 23 H Creatinine (0.6 - 1.3 mg/dL) 2.4 H Glomerular Filtr Rate (70 - 80) 19.8 L Glucose (70 - 110 mg/dL) 155 H POC Glucose (70 - 110 MG/DL) 146 H Calcium (8.0 - 10.5 mg/dL) 7.2 L Phosphorus (2.5 - 4.9 MG/DL) 3.5 Magnesium (1.8 - 2.4 mg/dL) 1.90 Total Bilirubin (<1.5 MG/DL) 0.3 Direct Bilirubin (0.0 - 0.30 MG/DL) 0.10 Indirect Bilirubin (MG/DL) 0.20 AST (15 - 37 IUnit/L) 31 ALT (15 - 65 IUnit/L) 39 Total Alk Phosphatase (20 - 125 IUnit/L) 70 Lactate Dehydrogenase (84 - 246 IUnits/L) 270 H Total Protein (6.4 - 8.2 g/dL) 4.5 L Albumin (3.4 - 5.0 g/dL) 1.90 L Laboratory Tests 09/29 0819 Coagulation INR (0.8 - 1.2) 1.3 H PTT (Rajendra) (25.0 - 39.5 Seconds) 28.5 PT Patient/Control Mix (9.3 - 12.9 SECONDS) 14.3 H Diagnosis, Assessment PlanFree Text A P:Patient seen and evaluated, discussed with care team, images and laboratories reviewed.History of dementiaHistory of rheumatoid arthritisHistory of frequent fallsHistory of frequent UTIsHistory of hypertension: Currently hypotensiveHypokalemia: We will supplementSevere hypomagnesemia we will supplementHypocalcemia: We will supplementHypoalbuminemiaSevere lactic acidosis: Etiology, could be related to septic shock, however source is unclear, rule out ischemic bowel, Zosyn, will need to review her medications if patient has been on metformin, lactic acidosis due to metformin in the setting of acute renal failure is a possibility and will do hemodialysis in the setting.Patient has been taking Metformin 1000 BID, kenneth has lactic acidosis that is induced by Metformin, discussed with deysi and ICC/Primary team will proceed with HD09/27/2019 mental status a lot better, hemodynamically more stable, pressors being weaned off, received 6 hours of hemodialysis yesterday, her last set of blood gas showed a pH of 7.40, PCO2 25, PO2 55, lactic acid 6.2 improving, sodium is 143 potassium 3.6 CO2 20 chloride 101 BUN 13 creatinine 1.1, hemoglobin this morning 9.7, white blood count 19.78 trending down, platelet 156, her clinical picture is consistent with metformin induced lactic acidosis, will do another session of hemodialysis, 4 hours, potassium 3.5, no ultrafiltration, will give 20 mmol of potassium phosphate and expectation of hypophosphatemia during hemodialysis. katie and evaluated during HD, discussed with RN and HD nurse09/28/2019 laboratories from this morning showed sodium 144, potassium 3.3 we will give KCl 20 mEq IV x1, chloride 104, bicarbonate 16, creatinine 1.2, lacticacid 1.2, hemoglobin 8.4, white blood count 15.2, blood culture still negative, anion gap today is 24 with a normal lactic acid etiology unclear will repeat BMP, repeat lactic acid and order serum acetone and do urinalysis to check for urine ketones, also will do a blood gas. Ketones came back as large, This is likley starvation ketoacidosis that has been exacerbated by gluconeogenesis inhibition by Metformin and has been reported in the literature, will start Glucose and insulin drip09/29/2019 laboratories from this morning showed sodium 142, potassium 2.7 we will give KCl 20 mEq IV x2, bicarbonate 32 with a chloride of 103 with disappearance of the anion gap correction of anion gap, will DC IV fluid with sodium bicarbonate, will DC insulin drip, changed to insulin sliding scale, start D10 at 30 cc/h since patient is noted nauseated, her chest x-ray showed pulmonary edema, will give IV Lasix 60 mg every 8 hours, give a dose of metolazone, her phosphorus 1.4, will give potassium phosphate 15 mmol IV x1, recheck lab in the afternoon, her lactic acid is 4 up some, not clear why is it elevated, we will recheck in the afternoon, her creatinine is 2.2, not sure whather baseline creatinine, her creatinine is relatively stable since yesterday, will monitor closely, hemoglobin is 7.8, white blood count 13.57 improving.09/30/2019 laboratories from this morning showed sodium 138, potassium 3.5, CO2 34, chloride 100, BUN and creatinine 22 and 2.4 up some likely related to diuretics, albumin 1.8, hemoglobin 7.8, platelet 60, white blood count 10.51 continues to trend down, lactic acid 1.2 within normal limit, urine output [id number] cc with Lasix. Chest x-ray still pending. Progressive thrombocytopenia with progressive decrease in hemoglobin, the latter could be related to fluid resuscitation, multiple blood draws and blood loss during dialysis procedure, however will check LDH, haptoglobin, PT/ PT. 10/01/2019 patient was transferred to the floor, PT PTT are within normal limit, LDH slightly elevated 276, liver function tests are within normal limit, haptoglobin pending, chest x-ray is better from yesterday. Sodium 138 today potassium 3.8, CO2 32, BUN and creatinine 25 and 2.6 trending up likely related to volume contraction. at 1124 RPT #:[id number] OF REPORTPRProgress Pcpf2707-59-29W08:00:00G.[id number] for patient ldqhRJGOUGDULCMJCY3635-35-18H70:24:26 [facility] 2019-09-30 14:56:00 [id number]+3 QQw4GFPsLs3bSQEp9 oGdNY9rp68qZ/p3N2PuLNnANZT1703-13-37U92:56:00 [facility]Hospital[facility] Progress NoteREPORT#:[id number] REPORT STATUS: SignedDATE:09/30/19 TIME: 1456 PATIENT: MAC AGUSTIN UNIT #: [id number]#: [id number] [address] AGE: 74 SEX: F ATTEND: Joel Myers [facility] AUTHOR: Po Carvajal MD * ALL edits or amendments must be made on the electronic/computer document * SubjectiveChief Complaint:NO acute issues overnight per nursing. Review of SystemsUnable to obtain due to:patient with severe dementia Objective GeneralVS/I O:Vital Signs: Date Time Temp Pulse Resp B/P B/P Pulse O2 O2 Flow FiO2 Mean Ox Delivery Rate 09/29 1430 59 12 97/52 68 100 09/29 1400 60 11 112/57 75 100 Nasal 4.795686 cannula 09/29 1332 58 10 112/57 82 100 09/29 1300 60 12 99/53 68 100 Nasal 4.655626 cannula 09/29 1231 69 14 125/60 86 100 09/29 1200 36.4 59 10 98/56 70 100 Nasal 4.310779 cannula 09/29 1131 58 10 126/57 82 100 04/20 1100 56 13 126/58 80 100 Nasal 4.458767 cannula 09/29 1031 55 11 122/60 87 100 04/20 1000 60 12 121/58 79 100 Nasal 4.323636 cannula /20 0930 56 14 101/52 73 100 04/20 0900 57 10 107/53 71 100 Nasal 4.249325 cannula 09/29 0831 61 11 84/48 61 100 04/20 0825 100 Nasal 4.524859 cannula 09/29 0800 Nasal 4.523875 cannula 09/29 0800 36.4 58 13 129/59 82 100 Nasal 4.266841 cannula 09/29 0730 60 11 113/56 80 100 04/20 0700 61 11 113/55 74 100 Nasal 4.131975 cannula 09/29 0600 59 11 114/56 81 100 04/20 0500 69 15 114/67 85 100 04/ 0400 62 11 115/56 79 100 04/ 0300 63 11 99/54 74 100 04/ 0201 61 11 125/58 83 100 04/ 0111 100 Nasal 4.386134 cannula 09/29 0100 65 10 119/60 86 97 04/ 0000 36.3 / 0000 66 10 89/52 65 100 04/ 2300 64 12 117/57 82 100 / 2200 65 12 99/54 72 100 / 2100 64 11 93/51 70 100 09/28 2001 73 12 130/57 82 100 09/28 1930 36.8 09/28 1900 71 11 123/58 84 97 09/28 1830 60 12 117/53 76 100 09/28 1800 68 21 116/59 80 100 09/28 1730 66 13 136/60 87 100 09/28 1700 68 14 112/55 77 100 09/28 1630 66 13 114/55 79 100 04/ 1606 68 16 101/52 74 100 09/28 1600 71 18 100 04 1600 36.7 100 Nasal 3.006125 cannula 09/28 1600 98 High flow 3.555297 nasal cannula 09/28 1530 92 31 104/58 75 99 / 1500 71 15 111/55 78 100 24 hour I O ending at 0700: 09/29 0700 09/28 1900 Intake Total 370.00 1150.00 Output Total 1050 900 Balance -680.00 250.00 Intake, IV 370.00 1140.00 Intake, Oral 10 Number 3 Bowel Movements Output, Stool 50 Output, Urine 1000 900 Patient Weight Weight (lb): 139Weight (oz): 12.37Weight (kg): 63.400 Physical ExamGeneral appearance: sedatedHead/Eyes: atraumatic, normocephalicENT: moist mucosal membranesNeck: no JVD, no masses or swellingCardiovascular: normal heart sounds, regular rate rhythmRespiratory: aerating well, clear to auscultation, no distress, no rales appreciated on anterior examAbdomen: soft, no distention, no guarding, no reboundGenitourinary: no bladder distentionExtremities: edema (bLE +1), no clubbing, no cyanosisMusculoskeletal: normal inspectionNeuro/FAST FOOD ATTENDANT: no motor deficitsSkin: dry, intact, normal color, normal temperature, no rashLymphatics: neck normalPsychiatry: normal affect, normal mood ResultsFindings/Data:Laboratory Tests 09/29 09/29 09/29 09/29 09/29 1147 0819 0819 0810 0531Chemistry Sodium (134 - 147 mEq/L) 140 Potassium (3.4 - 5.0 mEq/L) 3.7 Chloride (100 - 108 mEq/L) 102 Carbon Dioxide (21 - 33 mEq/L) 32 Anion Gap (0 - 20) 10 BUN (7 - 18 mg/dL) 23 H Creatinine (0.6 - 1.3 mg/dL) 2.4 H Glomerular Filtr Rate (70 - 80) 19.8 L Glucose (70 - 110 mg/dL) 155 H POC Glucose (70 - 110 MG/DL) 162 H 146 H Lactic Acid (0.4 - 1.9 mmol/L) 1.3 Calcium (8.0 - 10.5 mg/dL) 7.2 L Phosphorus (2.5 - 4.9 MG/DL) 3.5 Magnesium (1.8 - 2.4 mg/dL) 1.90 Total Bilirubin (<1.5 MG/DL) 0.3 Direct Bilirubin (0.0 - 0.30 MG/DL) 0.10 Indirect Bilirubin (MG/DL) 0.20 AST (15 - 37 IUnit/L) 31 ALT (15 - 65 IUnit/L) 39 Total Alk Phosphatase (20 - 125 IUnit/L) 70 Lactate Dehydrogenase (84 - 246 270 HIUnits/L) B-Natriuretic Peptide (0 - 100 PG/ML) 492.2 H Total Protein (6.4 - 8.2 g/dL) 4.5 L Albumin (3.4 - 5.0 g/dL) 1.90 L 09/29 09/28 09/28 09/28 09/28 0531 2337 1724 1724 1551Chemistry Sodium (134 - 147 mEq/L) 138 139 139 Potassium (3.4 - 5.0 mEq/L) 3.5 3.9 3.7 Chloride (100 - 108 mEq/L) 100 101 103 Carbon Dioxide (21 - 33 mEq/L) 34 H 34 H 31 Anion Gap (0 - 20) 8 8 9 BUN (7 - 18 mg/dL) 22 H 23 H 21 H Creatinine (0.6 - 1.3 mg/dL) 2.4 H 2.4 H 2.1 H Glomerular Filtr Rate (70 - 80) 19.8 L 19.8 L 23.2 L Glucose (70 - 110 mg/dL) 270 H 231 H 186 H POC Glucose (70 - 110 MG/DL) 154 H Lactic Acid (0.4 - 1.9 mmol/L) 1.2 Calcium (8.0 - 10.5 mg/dL) 7.4 L 7.6 L 7.0 L Ionized Calcium Jefry (1.12 - 1.32 1.05 LMMOL/L) Phosphorus (2.5 - 4.9 MG/DL) 3.2 3.2 2.8 Magnesium (1.8 - 2.4 mg/dL) 1.90 1.80 2.00 Total Bilirubin (<1.5 MG/DL) 0.3 AST (15 - 37 IUnit/L) 31 ALT (15 - 65 IUnit/L) 39 Total Alk Phosphatase (20 - 125 IUnit/L) 69 Total Protein (6.4 - 8.2 g/dL) 5.0 L Albumin (3.4 - 5.0 g/dL) 1.80 L Laboratory Tests 09/29 0819 Coagulation INR (0.8 - 1.2) 1.3 H PTT (Rajendra) (25.0 - 39.5 Seconds) 28.5 PT Patient/Control Mix (9.3 - 12.9 SECONDS) 14.3 H Laboratory Tests 09/29 0531 Hematology WBC (4.5 - 11.0 x10 3/uL) 10.57 RBC (3.54 - 5.02 x10 6/uL) 2.60 L Hgb (11.0 - 15.0 g/dL) 7.8 L Hct (33.0 - 45.0 %) 24.0 L MCV (81.0 - 99.0 fL) 92.3 MCH (27.0 - 33.0 pg) 30.0 MCHC (33.0 - 37.0 g/dL) 32.5 L RDW (11.5 - 14.5 %) 14.0 Plt Count (150 - 400 x10 3/uL) 60 L MPV (7.0 - 9.0 fL) 12.3 H Neut % (Auto) (56.0 - 77.0 %) 81.0 H Lymph % (Auto) (14.0 - 32.0 %) 12.7 L [place] % (Auto) (4.8 - 9.0 %) 5.2 Eos % (Auto) (0.3 - 3.7 %) 0.5 Baso % (Auto) (0.0 - 2.0 %) 0.1 Neut # (Auto) (2.0 - 7.6 x10 3/uL) 8.57 H Lymph # (Auto) (1.0 - 3.8 x10 3/uL) 1.34 [place] # (Auto) (0.1 - 0.8 x10 3/uL) 0.55 Eos # (Auto) (0.0 - 0.2 x10 3/uL) 0.05 Baso # (Auto) (0.0 - 0.2 x10 3/uL) 0.01 Abs Immat Gran (auto) (0.00 - 0.03 x10 3/uL) 0.05 H Add Manual Diff NO Immature Gran % (0.0 - 2.0 %) 0.5 Nucleated RBC % (0 - 0 %) 0.0 Nucleated RBCs # (Man) (0.0 - 0.1 x10 3/uL) 0.00 Radiology data:Recent Impressions:RADIOLOGY - XR ABDOMEN 1V (KUB) 09/29 0514 Report Impression - Status: SIGNED Entered: 09/30/201936 IMPRESSION:Nonobstructed bowel gas pattern. SL: [id number] By: Liam Dumont M.D.RADIOLOGY - XR CHEST 1 V 09/29 0514 Report Impression - Status: SIGNED Entered: 09/30/201937 IMPRESSION:1. Decreasing bilateral pleural effusions with decreasing bibasilaratelectasis/infiltrates.2. Decreasing interstitial edema.3. Removal of right jugular line. SL: [id number] By: Liam Duomnt M.D. Diagnosis, Assessment Plan Free Text DxA P NotesFree text DxA P notes:Severe lactic acidosisSevere metabolic acidosisAcute renal failureHypocalcemiaHypomagnesemia?Septic shock vs lactic acidosis from metforminDehydrationHypothermiaDMHTNDementia with behavior disturbance Plan:Ms. Agustin is a 74 yo female with non-specific symptoms of not feeling well, poor appetite that was found to have abnormal labs at [place], sent to ED for evaluation. In the ED, found to have severe lactic and metabolic acidosis. Discussed at length with ICU (Dr. Lin) and Renal (Dr Aguilar). Given her [place] imaging, urinalysis, CXR are unremarkable for this level of acidosis, perhaps this acidosis is secondary to metformin. Plan is to dialyize patient to look for improvement. If no improvement, perhaps this is ischemic bowel. Will continue empiric Zosyn. - Zosyn- blood cultures pending- hold home meds- Accuchecks and SSI- replace electrolytes- heparin for DVT prophylaxsis 09/26Improved lactic acidosis with dialysis. Given improvement, likely this was lactic acidosis secondary to metformin. WBC persistently elevated at 19, will continue broad spectrum abx for now - blood cultures negative - UA unremarkable - monitor CBC for downtrend - if WBC remains elevated with mention of possible neoplasm in stomach, would consider work up however, this patient has dementia with low quality of life, not a good candidate for work up/treatment.BS well controlled with current insulin scheduleCheck labs in am 09/27Lactate remains normal, continue to hold metforminPt noted return of anion gap acidosis with ketonuria. Discussed with Dr. Aguilar, nephrology. Pt placed on DKA protocol to close anion gap, on D10 for glucose needs while on insulin drip.BNP elevated with clear lungs, no dependent edema, decreased O2 requirement. Give one dose of Lasix 40 mg IV, check CXR in the am, monitor for volume overload while getting DKA fluids.WBC decreased to 15, continue abx for now, d/c after 5 daysSome blood noted in stool, CT with signs of chronic inflammation. Given her dementia, unsure that patient would tolerate bowel prep. GI consulted. Appreciate input on area in stomach with possible neoplasm. Check labs in am 09/28Anion gap closed, off insulin dripElevated lactate, monitorCXR shows severe vascular congestion and pleural fluid, likely related to fluidsgiven for lactic acidosis and metabolic acidosis, pt not in respiratory distress - Lasix 60 mg IV q8 iniated by nephrology - D10 at 30 cc/hr to maintain blood sugarWBC decreased to 13, d/c abx after 5 daysColon with chronic inflammation, no work up per GIWill need EGD to evaluate abnormality in gastric wall once improvedCheck labs in am 09/29Off insulin dripCXR reviewedCont lasixWBC count came down to 10.5On zosynTransfer to the floordw RN, TRUCK DRIVER TEAMSTER, consultantsCXR and telemetry personally reviewedFurther recs per clinical course at 1502 RPT #:[id number] OF REPORTPRProgress [id number]:56:00G.[id number] for patient jxqwJRGWAIECBMTKTX8544-24-68C73:02:33 [facility] 2019-[facility] 14:44:00 [id number] 3KRwASXENjNZESJkS z97gaj8AJr6oD0oH4EGGcwBAas1049-55-53T72:44:00 [facility] ([facility])Gastroenterology Progress NoteREPORT#:[id number] REPORT STATUS: SignedDATE:09/30/19 TIME: 1444 PATIENT: MAC AGUSTIN UNIT #: [id number]#: [id number] [address]: [address] AGE: 74 SEX: F ATTEND: Joel Myers [facility] AUTHOR: Arian Anderson * ALL edits or amendments must be made on the electronic/computer document * SubjectiveChief Complaint:weakHPI:Green watery stool. Rectal tube in place. Not eating. Review of SystemsUnable to obtain due to:patient condition Objective GeneralVS/I O:Last Documented: Result Date Time Pulse Ox 100 09/29 1430 B/P 97/52 09/29 1430 B/P Mean 68 09/29 1430 Pulse 59 09/29 1430 Resp 12 09/29 1430 O2 Delivery Nasal cannula 09/29 1400 O2 Flow Rate 4.929075 09/29 1400 Temp 36.4 09/29 1200 24 hour I O ending at 0700: 09/29 0700 09/28 1900 Intake Total 370.00 1150.00 Output Total 1050 900 Balance -680.00 250.00 Intake, IV 370.00 1140.00 Intake, Oral 10 Number 3 Bowel Movements Output, Stool 50 Output, Urine 1000 900 Patient Weight Weight (lb): 139Weight (oz): 12.37Weight (kg): 63.400 Medications:Active Meds + DC'd Last 24 HrsPotassium Chloride 50 ML Q1HR IV (DC) Calcium Gluconate 1,000 MG ONCE ONE IV (DC) Sodium Chloride 100 MLZinc Oxide 1 APPLIC BID TOPICAL Lidocaine 1 EA Q24H TOPICAL Insulin Human Lispro 0 AC HS SUBQ Pantoprazole Sodium 40 MG DAILY IV Sodium Chloride 10 ML ASDIR PRN IV Dextrose/Water 250 ML .Q8H20M IV Furosemide 60 MG Q8H IV (DC) Vancomycin HCl 1,000 MG DIALYSIS-DOSE AFTER IV (DC) Sodium Chloride 250 MLMorphine Sulfate 2 MG Q4H PRN PRN IV Acetaminophen 650 MG Q4H PRN PRN PO Heparin Sodium 5,000 UNIT Q12HR SUBQ (DA) Piperacillin Sod/Tazobactam Sod 3.375 GM Q12H IV Sodium Chloride 100 MLPhenylephrine HCl 30 MG ASDIR IV (DC) Sodium Chloride 247 MLSodium Chloride 500 ML ONCE ONE IV (DC) Vasopressin 20 UNIT ASDIR IV (DC) Sodium Chloride 100 MLMiscellaneous Information 1 EACH ASDIR IV (DC) Albumin Human 12.5 GM ASDIR PRN IV Heparin Sodium (Porcine) 1,000 UNIT ASDIR PRN DIALYSIS Mannitol 12.5 GM ASDIR PRN IV Sodium Chloride 2,000 ML ASDIR PRN IV Sodium Chloride 10 ML ASDIR PRN IV Sodium Chloride 250 ML ASDIR PRN IV Norepinephrine Bitartrate 250 ML ASDIR PRN IV Sodium Chloride 0 ASDIR PRN IV Physical ExamGeneral appearance: no acute distressHEENT: moist mucosal membranesCardiovascular: normal S1/X9Ogurfpsxawd: clear to auscultationAbdomen: non-tender, normal bowel sounds, soft, no distentionExtremities: edemaMusculoskeletal: normal inspectionSkin: dry ResultsFindings/Data:Laboratory Tests 09/30/19 0819:[Embedded Image Not Available] 09/30/19 0531:[Embedded Image Not Available] 09/29/19 2337:[Embedded Image Not Available] 09/29/19 1724:[Embedded Image Not Available]Laboratory Tests 09/29 09/29 09/29 09/29 1147 0819 0819 0810 Chemistry Sodium (134 - 147 mEq/L) 140 Potassium (3.4 - 5.0 mEq/L) 3.7 Chloride (100 - 108 mEq/L) 102 Carbon Dioxide (21 - 33 mEq/L) 32 Anion Gap (0 - 20) 10 BUN (7 - 18 mg/dL) 23 H Creatinine (0.6 - 1.3 mg/dL) 2.4 H Glomerular Filtr Rate (70 - 80) 19.8 L Glucose (70 - 110 mg/dL) 155 H POC Glucose (70 - 110 MG/DL) 162 H 146 H Calcium (8.0 - 10.5 mg/dL) 7.2 L Phosphorus (2.5 - 4.9 MG/DL) 3.5 Magnesium (1.8 - 2.4 mg/dL) 1.90 Total Bilirubin (<1.5 MG/DL) 0.3 Direct Bilirubin (0.0 - 0.30 MG/DL) 0.10 Indirect Bilirubin (MG/DL) 0.20 AST (15 - 37 IUnit/L) 31 ALT (15 - 65 IUnit/L) 39 Total Alk Phosphatase (20 - 125 IUnit/L) 70 Lactate Dehydrogenase (84 - 246 IUnits/L) 270 H B-Natriuretic Peptide (0 - 100 PG/ML) 492.2 H Total Protein (6.4 - 8.2 g/dL) 4.5 L Albumin (3.4 - 5.0 g/dL) 1.90 L 09/29 09/29 09/28 09/28 09/28 0531 0531 2337 1724 1724Chemistry Sodium (134 - 147 mEq/L) 138 139 139 Potassium (3.4 - 5.0 mEq/L) 3.5 3.9 3.7 Chloride (100 - 108 mEq/L) 100 101 103 Carbon Dioxide (21 - 33 mEq/L) 34 H 34 H 31 Anion Gap (0 - 20) 8 8 9 BUN (7 - 18 mg/dL) 22 H 23 H 21 H Creatinine (0.6 - 1.3 mg/dL) 2.4 H 2.4 H 2.1 H Glomerular Filtr Rate (70 - 80) 19.8 L 19.8 L 23.2 L Glucose (70 - 110 mg/dL) 270 H 231 H 186 H Lactic Acid (0.4 - 1.9 mmol/L) 1.3 1.2 Calcium (8.0 - 10.5 mg/dL) 7.4 L 7.6 L 7.0 L Ionized Calcium Jefry (1.12 - 1.32 1.05 LMMOL/L) Phosphorus (2.5 - 4.9 MG/DL) 3.2 3.2 2.8 Magnesium (1.8 - 2.4 mg/dL) 1.90 1.80 2.00 Total Bilirubin (<1.5 MG/DL) 0.3 AST (15 - 37 IUnit/L) 31 ALT (15 - 65 IUnit/L) 39 Total Alk Phosphatase (20 - 125 69IUnit/L) Total Protein (6.4 - 8.2 g/dL) 5.0 L Albumin (3.4 - 5.0 g/dL) 1.80 L 09/28 1551 Chemistry POC Glucose (70 - 110 MG/DL) 154 H Laboratory Tests 09/29 0819 Coagulation INR (0.8 - 1.2) 1.3 H PTT ([place]) (25.0 - 39.5 Seconds) 28.5 PT Patient/Control Mix (9.3 - 12.9 SECONDS) 14.3 H Laboratory Tests 09/29 0531 Hematology WBC (4.5 - 11.0 x10 3/uL) 10.57 RBC (3.54 - 5.02 x10 6/uL) 2.60 L Hgb (11.0 - 15.0 g/dL) 7.8 L Hct (33.0 - 45.0 %) 24.0 L MCV (81.0 - 99.0 fL) 92.3 MCH (27.0 - 33.0 pg) 30.0 MCHC (33.0 - 37.0 g/dL) 32.5 L RDW (11.5 - 14.5 %) 14.0 Plt Count (150 - 400 x10 3/uL) 60 L MPV (7.0 - 9.0 fL) 12.3 H Neut % (Auto) (56.0 - 77.0 %) 81.0 H Lymph % (Auto) (14.0 - 32.0 %) 12.7 L [place] % (Auto) (4.8 - 9.0 %) 5.2 Eos % (Auto) (0.3 - 3.7 %) 0.5 Baso % (Auto) (0.0 - 2.0 %) 0.1 Neut # (Auto) (2.0 - 7.6 x10 3/uL) 8.57 H Lymph # (Auto) (1.0 - 3.8 x10 3/uL) 1.34 [place] # (Auto) (0.1 - 0.8 x10 3/uL) 0.55 Eos # (Auto) (0.0 - 0.2 x10 3/uL) 0.05 Baso # (Auto) (0.0 - 0.2 x10 3/uL) 0.01 Abs Immat Gran (auto) (0.00 - 0.03 x10 3/uL) 0.05 H Add Manual Diff NO Immature Gran % (0.0 - 2.0 %) 0.5 Nucleated RBC % (0 - 0 %) 0.0 Nucleated RBCs # (Man) (0.0 - 0.1 x10 3/uL) 0.00 Radiology Data:Recent Impressions:RADIOLOGY - XR ABDOMEN 1V (KUB) 09/29 513 Report Impression - Status: SIGNED Entered: 09/30/2019735 IMPRESSION:Nonobstructed bowel gas pattern. SL: [id number] By: Liam Dumont M.D.RADIOLOGY - XR CHEST 1 V 09/29 513 Report Impression - Status: SIGNED Entered: 09/30/201937 IMPRESSION:1. Decreasing bilateral pleural effusions with decreasing bibasilaratelectasis/infiltrates.2. Decreasing interstitial edema.3. Removal of right jugular line. SL: [id number] By: Liam Dumont M.D. Results: labs reviewed, vital signs stable Diagnosis, Assessment PlanProblem List/A P: 1. Antibiotic-associated diarrhea Free Text A P:IMPRESSION: A 74-year-old female with a host of comorbidities, especiallyadvanced dementia, presented with failure to thrive kind of situation, labs weresignificantly abnormal with electrolyte disbalance, acute renal failure,metabolic acidosis and underlying sepsis from urinary tract infection. UTI isbeing treated with IV antibiotic. She is responding. The CT finding of colonicwall thickening as well as gastric distention with gastric wall thickening is anincidental finding. PLAN:1. Colonic wall thickening is not concerning. This diffuse colonic wall edemacould be due to underlying sepsis and hypoalbuminemia. This does not warrantany further investigation at this time. It seems to be self-limiting.2. Gastric distention, gastric wall thickening certainly needs furtherevaluation with direct visualization. Therefore, upper endoscopy should beconsidered when the patient is medically stable and has recovered well from hercurrent acute illness. 09/30/19- C diff ordered and pending collection- Broaden stool studies to rule out infectioun- PPI- Supportive care at 1456 RPT #:[id number] OF REPORTPRProgress Opsa8797-10-73Z67:44:00G.[id number] for patient qaenEGOPOCNRCNXHFQ0984-32-25Y40:56:42 [facility] 2019-09-30 14:44:00 [id number]+ w0FhVQFCKQJ1F54PO KKynIGgRtGRZiCUdVvLeyPzrIM6667-90-99U07:44:00 [facility] ([facility])Gastroenterology Progress NoteREPORT#:[id number] REPORT STATUS: SignedDATE:09/30/19 TIME: 1443 PATIENT: MAC AGUSTIN UNIT #: [id number]#: [id number] [address] AGE: 74 SEX: F ATTEND: Joel Myers [facility] AUTHOR: Arian Anderson * ALL edits or amendments must be made on the electronic/computer document * Arian Anderson 09/30/19 1444:SubjectiveChief Complaint:weakHPI:Green watery stool. Rectal tube in place. Not eating. Review of SystemsUnable to obtain due to:patient condition Objective GeneralVS/I O:Last Documented: Result Date Time Pulse Ox 100 09/29 1430 B/P 97/52 09/29 1430 B/P Mean 68 09/29 1430 Pulse 59 09/29 1430 Resp 12 09/29 1430 O2 Delivery Nasal cannula 09/29 1400 O2 Flow Rate [id number] 09/29 1400 Temp 36.4 09/29 1200 24 hour I O ending at 0700: 09/29 0700 09/28 1900 Intake Total 370.00 1150.00 Output Total 1050 900 Balance -680.00 250.00 Intake, IV 370.00 1140.00 Intake, Oral 10 Number 3 Bowel Movements Output, Stool 50 Output, Urine 1000 900 Patient Weight Weight (lb): 139Weight (oz): 12.37Weight (kg): 63.400 Medications:Active Meds + DC'd Last 24 HrsPotassium Chloride 50 ML Q1HR IV (DC) Calcium Gluconate 1,000 MG ONCE ONE IV (DC) Sodium Chloride 100 MLZinc Oxide 1 APPLIC BID TOPICAL Lidocaine 1 EA Q24H TOPICAL Insulin Human Lispro 0 AC HS SUBQ Pantoprazole Sodium 40 MG DAILY IV Sodium Chloride 10 ML ASDIR PRN IV Dextrose/Water 250 ML .Q8H20M IV Furosemide 60 MG Q8H IV (DC) Vancomycin HCl 1,000 MG DIALYSIS-DOSE AFTER IV (DC) Sodium Chloride 250 MLMorphine Sulfate 2 MG Q4H PRN PRN IV Acetaminophen 650 MG Q4H PRN PRN PO Heparin Sodium 5,000 UNIT Q12HR SUBQ (DA) Piperacillin Sod/Tazobactam Sod 3.375 GM Q12H IV Sodium Chloride 100 MLPhenylephrine HCl 30 MG ASDIR IV (DC) Sodium Chloride 247 MLSodium Chloride 500 ML ONCE ONE IV (DC) Vasopressin 20 UNIT ASDIR IV (DC) Sodium Chloride 100 MLMiscellaneous Information 1 EACH ASDIR IV (DC) Albumin Human 12.5 GM ASDIR PRN IV Heparin Sodium (Porcine) 1,000 UNIT ASDIR PRN DIALYSIS Mannitol 12.5 GM ASDIR PRN IV Sodium Chloride 2,000 ML ASDIR PRN IV Sodium Chloride 10 ML ASDIR PRN IV Sodium Chloride 250 ML ASDIR PRN IV Norepinephrine Bitartrate 250 ML ASDIR PRN IV Sodium Chloride 0 ASDIR PRN IV Physical ExamGeneral appearance: no acute distressHEENT: moist mucosal membranesCardiovascular: normal S1/U3Ycmlaodbahs: clear to auscultationAbdomen: non-tender, normal bowel sounds, soft, no distentionExtremities: edemaMusculoskeletal: normal inspectionSkin: dry ResultsFindings/Data:Laboratory Tests 09/30/19 0819:[Embedded Image Not Available] 09/30/19 0531:[Embedded Image Not Available] 09/29/19 2337:[Embedded Image Not Available] 09/29/19 1724:[Embedded Image Not Available]Laboratory Tests 09/29 09/29 09/29 09/29 1147 0819 0819 0810 Chemistry Sodium (134 - 147 mEq/L) 140 Potassium (3.4 - 5.0 mEq/L) 3.7 Chloride (100 - 108 mEq/L) 102 Carbon Dioxide (21 - 33 mEq/L) 32 Anion Gap (0 - 20) 10 BUN (7 - 18 mg/dL) 23 H Creatinine (0.6 - 1.3 mg/dL) 2.4 H Glomerular Filtr Rate (70 - 80) 19.8 L Glucose (70 - 110 mg/dL) 155 H POC Glucose (70 - 110 MG/DL) 162 H 146 H Calcium (8.0 - 10.5 mg/dL) 7.2 L Phosphorus (2.5 - 4.9 MG/DL) 3.5 Magnesium (1.8 - 2.4 mg/dL) 1.90 Total Bilirubin (<1.5 MG/DL) 0.3 Direct Bilirubin (0.0 - 0.30 MG/DL) 0.10 Indirect Bilirubin (MG/DL) 0.20 AST (15 - 37 IUnit/L) 31 ALT (15 - 65 IUnit/L) 39 Total Alk Phosphatase (20 - 125 IUnit/L) 70 Lactate Dehydrogenase (84 - 246 IUnits/L) 270 H B-Natriuretic Peptide (0 - 100 PG/ML) 492.2 H Total Protein (6.4 - 8.2 g/dL) 4.5 L Albumin (3.4 - 5.0 g/dL) 1.90 L 09/29 09/29 09/28 09/28 09/28 0531 0531 2337 1724 1724Chemistry Sodium (134 - 147 mEq/L) 138 139 139 Potassium (3.4 - 5.0 mEq/L) 3.5 3.9 3.7 Chloride (100 - 108 mEq/L) 100 101 103 Carbon Dioxide (21 - 33 mEq/L) 34 H 34 H 31 Anion Gap (0 - 20) 8 8 9 BUN (7 - 18 mg/dL) 22 H 23 H 21 H Creatinine (0.6 - 1.3 mg/dL) 2.4 H 2.4 H 2.1 H Glomerular Filtr Rate (70 - 80) 19.8 L 19.8 L 23.2 L Glucose (70 - 110 mg/dL) 270 H 231 H 186 H Lactic Acid (0.4 - 1.9 mmol/L) 1.3 1.2 Calcium (8.0 - 10.5 mg/dL) 7.4 L 7.6 L 7.0 L Ionized Calcium Jefry (1.12 - 1.32 1.05 LMMOL/L) Phosphorus (2.5 - 4.9 MG/DL) 3.2 3.2 2.8 Magnesium (1.8 - 2.4 mg/dL) 1.90 1.80 2.00 Total Bilirubin (<1.5 MG/DL) 0.3 AST (15 - 37 IUnit/L) 31 ALT (15 - 65 IUnit/L) 39 Total Alk Phosphatase (20 - 125 69IUnit/L) Total Protein (6.4 - 8.2 g/dL) 5.0 L Albumin (3.4 - 5.0 g/dL) 1.80 L 09/28 1551 Chemistry POC Glucose (70 - 110 MG/DL) 154 H Laboratory Tests 09/29 0819 Coagulation INR (0.8 - 1.2) 1.3 H PTT (Rajendra) (25.0 - 39.5 Seconds) 28.5 PT Patient/Control Mix (9.3 - 12.9 SECONDS) 14.3 H Laboratory Tests 09/29 0531 Hematology WBC (4.5 - 11.0 x10 3/uL) 10.57 RBC (3.54 - 5.02 x10 6/uL) 2.60 L Hgb (11.0 - 15.0 g/dL) 7.8 L Hct (33.0 - 45.0 %) 24.0 L MCV (81.0 - 99.0 fL) 92.3 MCH (27.0 - 33.0 pg) 30.0 MCHC (33.0 - 37.0 g/dL) 32.5 L RDW (11.5 - 14.5 %) 14.0 Plt Count (150 - 400 x10 3/uL) 60 L MPV (7.0 - 9.0 fL) 12.3 H Neut % (Auto) (56.0 - 77.0 %) 81.0 H Lymph % (Auto) (14.0 - 32.0 %) 12.7 L [place] % (Auto) (4.8 - 9.0 %) 5.2 Eos % (Auto) (0.3 - 3.7 %) 0.5 Baso % (Auto) (0.0 - 2.0 %) 0.1 Neut # (Auto) (2.0 - 7.6 x10 3/uL) 8.57 H Lymph # (Auto) (1.0 - 3.8 x10 3/uL) 1.34 [place] # (Auto) (0.1 - 0.8 x10 3/uL) 0.55 Eos # (Auto) (0.0 - 0.2 x10 3/uL) 0.05 Baso # (Auto) (0.0 - 0.2 x10 3/uL) 0.01 Abs Immat Gran (auto) (0.00 - 0.03 x10 3/uL) 0.05 H Add Manual Diff NO Immature Gran % (0.0 - 2.0 %) 0.5 Nucleated RBC % (0 - 0 %) 0.0 Nucleated RBCs # (Man) (0.0 - 0.1 x10 3/uL) 0.00 Radiology Data:Recent Impressions:RADIOLOGY - XR ABDOMEN 1V (KUB) 09/29 513 Report Impression - Status: SIGNED Entered: 09/30/2019735 IMPRESSION:Nonobstructed bowel gas pattern. SL: [id number] By: Liam Dumont M.D.RADIOLOGY - XR CHEST 1 V 09/29 513 Report Impression - Status: SIGNED Entered: 09/30/201937 IMPRESSION:1. Decreasing bilateral pleural effusions with decreasing bibasilaratelectasis/infiltrates.2. Decreasing interstitial edema.3. Removal of right jugular line. SL: [id number] By: Liam Dumont M.D. Results: labs reviewed, vital signs stable Diagnosis, Assessment PlanProblem List/A P: 1. Antibiotic-associated diarrhea Free Text A P:IMPRESSION: A 74-year-old female with a host of comorbidities, especiallyadvanced dementia, presented with failure to thrive kind of situation, labs weresignificantly abnormal with electrolyte disbalance, acute renal failure,metabolic acidosis and underlying sepsis from urinary tract infection. UTI isbeing treated with IV antibiotic. She is responding. The CT finding of colonicwall thickening as well as gastric distention with gastric wall thickening is anincidental finding. PLAN:1. Colonic wall thickening is not concerning. This diffuse colonic wall edemacould be due to underlying sepsis and hypoalbuminemia. This does not warrantany further investigation at this time. It seems to be self-limiting.2. Gastric distention, gastric wall thickening certainly needs furtherevaluation with direct visualization. Therefore, upper endoscopy should beconsidered when the patient is medically stable and has recovered well from hercurrent acute illness. 09/30/19- C diff ordered and pending collection- Broaden stool studies to rule out infectioun- PPI- Supportive care Coleman Sr VJamarcus 11/07/19 0900:Attestations Physician AttestationAgree w/findings plan:Patient seen and examined. 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 at 1456 RPT #:[id number] OF REPORTPRProgress [id number]:44:00G.[id number] for patient edkpVRUAMAXAEEMPJX1591I68:01:[address] [facility] 2019-09-30 14:44:00 [id number] qsokEd+9rqvEBy7j+ 9l2PSMwfyVAvAW/a95mX15m0M18530-07-01R78:44:00 [facility])Gastroenterology Progress NoteREPORT#:[id number] REPORT STATUS: SignedDATE:09/30/19 TIME: 1443 PATIENT: MAC AGUSTIN UNIT #: [id number]#: [id number] [address] AGE: 74 SEX: F ATTEND: Joel Myers [facility] AUTHOR: Arian Anderson * ALL edits or amendments must be made on the electronic/computer document * Arian Anderson 09/30/19 1444:SubjectiveChief Complaint:weakHPI:Green watery stool. Rectal tube in place. Not eating. Review of SystemsUnable to obtain due to:patient condition Objective GeneralVS/I O:Last Documented: Result Date Time Pulse Ox 100 09/29 1430 B/P 97/52 09/29 1430 B/P Mean 68 09/29 1430 Pulse 59 09/29 1430 Resp 12 09/29 1430 O2 Delivery Nasal cannula 09/29 1400 O2 Flow Rate 4.774191 09/29 1400 Temp 36.4 09/29 1200 24 hour I O ending at 0700: 09/29 0700 09/28 1900 Intake Total 370.00 1150.00 Output Total 1050 900 Balance -680.00 250.00 Intake, IV 370.00 1140.00 Intake, Oral 10 Number 3 Bowel Movements Output, Stool 50 Output, Urine 1000 900 Patient Weight Weight (lb): 139Weight (oz): 12.37Weight (kg): 63.400 Medications:Active Meds + DC'd Last 24 HrsPotassium Chloride 50 ML Q1HR IV (DC) Calcium Gluconate 1,000 MG ONCE ONE IV (DC) Sodium Chloride 100 MLZinc Oxide 1 APPLIC BID TOPICAL Lidocaine 1 EA Q24H TOPICAL Insulin Human Lispro 0 AC HS SUBQ Pantoprazole Sodium 40 MG DAILY IV Sodium Chloride 10 ML ASDIR PRN IV Dextrose/Water 250 ML .Q8H20M IV Furosemide 60 MG Q8H IV (DC) Vancomycin HCl 1,000 MG DIALYSIS-DOSE AFTER IV (DC) Sodium Chloride 250 MLMorphine Sulfate 2 MG Q4H PRN PRN IV Acetaminophen 650 MG Q4H PRN PRN PO Heparin Sodium 5,000 UNIT Q12HR SUBQ (DA) Piperacillin Sod/Tazobactam Sod 3.375 GM Q12H IV Sodium Chloride 100 MLPhenylephrine HCl 30 MG ASDIR IV (DC) Sodium Chloride 247 MLSodium Chloride 500 ML ONCE ONE IV (DC) Vasopressin 20 UNIT ASDIR IV (DC) Sodium Chloride 100 MLMiscellaneous Information 1 EACH ASDIR IV (DC) Albumin Human 12.5 GM ASDIR PRN IV Heparin Sodium (Porcine) 1,000 UNIT ASDIR PRN DIALYSIS Mannitol 12.5 GM ASDIR PRN IV Sodium Chloride 2,000 ML ASDIR PRN IV Sodium Chloride 10 ML ASDIR PRN IV Sodium Chloride 250 ML ASDIR PRN IV Norepinephrine Bitartrate 250 ML ASDIR PRN IV Sodium Chloride 0 ASDIR PRN IV Physical ExamGeneral appearance: no acute distressHEENT: moist mucosal membranesCardiovascular: normal S1/I0Ggzfxspojvj: clear to auscultationAbdomen: non-tender, normal bowel sounds, soft, no distentionExtremities: edemaMusculoskeletal: normal inspectionSkin: dry ResultsFindings/Data:Laboratory Tests 09/30/19 0819:[Embedded Image Not Available] 09/30/19 0531:[Embedded Image Not Available] 09/29/19 2337:[Embedded Image Not Available] 09/29/19 1724:[Embedded Image Not Available]Laboratory Tests 09/29 09/29 09/29 09/29 1147 0819 0819 0810 Chemistry Sodium (134 - 147 mEq/L) 140 Potassium (3.4 - 5.0 mEq/L) 3.7 Chloride (100 - 108 mEq/L) 102 Carbon Dioxide (21 - 33 mEq/L) 32 Anion Gap (0 - 20) 10 BUN (7 - 18 mg/dL) 23 H Creatinine (0.6 - 1.3 mg/dL) 2.4 H Glomerular Filtr Rate (70 - 80) 19.8 L Glucose (70 - 110 mg/dL) 155 H POC Glucose (70 - 110 MG/DL) 162 H 146 H Calcium (8.0 - 10.5 mg/dL) 7.2 L Phosphorus (2.5 - 4.9 MG/DL) 3.5 Magnesium (1.8 - 2.4 mg/dL) 1.90 Total Bilirubin (<1.5 MG/DL) 0.3 Direct Bilirubin (0.0 - 0.30 MG/DL) 0.10 Indirect Bilirubin (MG/DL) 0.20 AST (15 - 37 IUnit/L) 31 ALT (15 - 65 IUnit/L) 39 Total Alk Phosphatase (20 - 125 IUnit/L) 70 Lactate Dehydrogenase (84 - 246 IUnits/L) 270 H B-Natriuretic Peptide (0 - 100 PG/ML) 492.2 H Total Protein (6.4 - 8.2 g/dL) 4.5 L Albumin (3.4 - 5.0 g/dL) 1.90 L 09/29 09/29 09/28 09/28 09/28 0531 0531 2337 1724 1724Chemistry Sodium (134 - 147 mEq/L) 138 139 139 Potassium (3.4 - 5.0 mEq/L) 3.5 3.9 3.7 Chloride (100 - 108 mEq/L) 100 101 103 Carbon Dioxide (21 - 33 mEq/L) 34 H 34 H 31 Anion Gap (0 - 20) 8 8 9 BUN (7 - 18 mg/dL) 22 H 23 H 21 H Creatinine (0.6 - 1.3 mg/dL) 2.4 H 2.4 H 2.1 H Glomerular Filtr Rate (70 - 80) 19.8 L 19.8 L 23.2 L Glucose (70 - 110 mg/dL) 270 H 231 H 186 H Lactic Acid (0.4 - 1.9 mmol/L) 1.3 1.2 Calcium (8.0 - 10.5 mg/dL) 7.4 L 7.6 L 7.0 L Ionized Calcium Jefry (1.12 - 1.32 1.05 LMMOL/L) Phosphorus (2.5 - 4.9 MG/DL) 3.2 3.2 2.8 Magnesium (1.8 - 2.4 mg/dL) 1.90 1.80 2.00 Total Bilirubin (<1.5 MG/DL) 0.3 AST (15 - 37 IUnit/L) 31 ALT (15 - 65 IUnit/L) 39 Total Alk Phosphatase (20 - 125 69IUnit/L) Total Protein (6.4 - 8.2 g/dL) 5.0 L Albumin (3.4 - 5.0 g/dL) 1.80 L 09/28 1551 Chemistry POC Glucose (70 - 110 MG/DL) 154 H Laboratory Tests 09/29 0819 Coagulation INR (0.8 - 1.2) 1.3 H PTT ([place]) (25.0 - 39.5 Seconds) 28.5 PT Patient/Control Mix (9.3 - 12.9 SECONDS) 14.3 H Laboratory Tests 09/29 0531 Hematology WBC (4.5 - 11.0 x10 3/uL) 10.57 RBC (3.54 - 5.02 x10 6/uL) 2.60 L Hgb (11.0 - 15.0 g/dL) 7.8 L Hct (33.0 - 45.0 %) 24.0 L MCV (81.0 - 99.0 fL) 92.3 MCH (27.0 - 33.0 pg) 30.0 MCHC (33.0 - 37.0 g/dL) 32.5 L RDW (11.5 - 14.5 %) 14.0 Plt Count (150 - 400 x10 3/uL) 60 L MPV (7.0 - 9.0 fL) 12.3 H Neut % (Auto) (56.0 - 77.0 %) 81.0 H Lymph % (Auto) (14.0 - 32.0 %) 12.7 L [place] % (Auto) (4.8 - 9.0 %) 5.2 Eos % (Auto) (0.3 - 3.7 %) 0.5 Baso % (Auto) (0.0 - 2.0 %) 0.1 Neut # (Auto) (2.0 - 7.6 x10 3/uL) 8.57 H Lymph # (Auto) (1.0 - 3.8 x10 3/uL) 1.34 [place] # (Auto) (0.1 - 0.8 x10 3/uL) 0.55 Eos # (Auto) (0.0 - 0.2 x10 3/uL) 0.05 Baso # (Auto) (0.0 - 0.2 x10 3/uL) 0.01 Abs Immat Gran (auto) (0.00 - 0.03 x10 3/uL) 0.05 H Add Manual Diff NO Immature Gran % (0.0 - 2.0 %) 0.5 Nucleated RBC % (0 - 0 %) 0.0 Nucleated RBCs # (Man) (0.0 - 0.1 x10 3/uL) 0.00 Radiology Data:Recent Impressions:RADIOLOGY - XR ABDOMEN 1V (KUB) 09/29 513 Report Impression - Status: SIGNED Entered: 09/30/201936 IMPRESSION:Nonobstructed bowel gas pattern. SL: [id number] By: Liam Dumont M.D.RADIOLOGY - XR CHEST 1 V 09/29 513 Report Impression - Status: SIGNED Entered: 09/30/2019 0737 IMPRESSION:1. Decreasing bilateral pleural effusions with decreasing bibasilaratelectasis/infiltrates.2. Decreasing interstitial edema.3. Removal of right jugular line. SL: [id number] By: Liam Dumont M.D. Results: labs reviewed, vital signs stable Diagnosis, Assessment PlanProblem List/A P: 1. Antibiotic-associated diarrhea Free Text A P:IMPRESSION: A 74-year-old female with a host of comorbidities, especiallyadvanced dementia, presented with failure to thrive kind of situation, labs weresignificantly abnormal with electrolyte disbalance, acute renal failure,metabolic acidosis and underlying sepsis from urinary tract infection. UTI isbeing treated with IV antibiotic. She is responding. The CT finding of colonicwall thickening as well as gastric distention with gastric wall thickening is anincidental finding. PLAN:1. Colonic wall thickening is not concerning. This diffuse colonic wall edemacould be due to underlying sepsis and hypoalbuminemia. This does not warrantany further investigation at this time. It seems to be self-limiting.2. Gastric distention, gastric wall thickening certainly needs furtherevaluation with direct visualization. Therefore, upper endoscopy should beconsidered when the patient is medically stable and has recovered well from hercurrent acute illness. 09/30/19- C diff ordered and pending collection- Broaden stool studies to rule out infectioun- PPI- Supportive care Coleman Sr V. 11/07/19 0900:Attestations Physician AttestationAgree w/findings plan:Patient seen and examined. 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 at 1456 at 0913 RPT #:[id number] OF REPORTPRProgress [id number]:44:00G.[id number] for patient zzpfQFLYHOPIHNTHZN1525-70-57K01:14:[address] [facility] 2019-09-30 07:09:00 [id number]+ OIadpcvIJqjpSPn7z R/[id number]:09:00 [facility] ([facility]ENTERNephrology Progress NoteREPORT#:[id number] REPORT STATUS: SignedDATE:09/30/19 TIME: 07 PATIENT: MAC AGUSTIN UNIT #: [id number]#: [id number] [facility] AGE: 74 SEX: F ATTEND: Joel Myers [facility] AUTHOR: Rabia Aguilar MD * ALL edits or amendments must be made on the electronic/computer document * SubjectiveChief Complaint:AMS/Lactic acidosis/AKIUnable to obtain: patient conditionComments:Patient seen and evaluated, HPI no change from initial, alert, answer simple questions Review of SystemsUnable to obtain due to:Dementia Objective GeneralVS/I O:Vital Signs: Date Time Temp Pulse Resp B/P B/P Pulse O2 O2 Flow FiO2 Mean Ox Delivery Rate 09/29 0600 59 11 114/56 81 100 09/29 0500 69 15 114/67 85 100 09/29 0400 62 11 115/56 79 100 09/29 0300 63 11 99/54 74 100 09/29 0201 61 11 125/58 83 100 09/29 0111 100 Nasal 4.223095 cannula 09/29 0100 65 10 119/60 86 97 09/29 0000 36.3 09/29 0000 66 10 89/52 65 100 09/28 2300 64 12 117/57 82 100 09/28 2200 65 12 99/54 72 100 09/28 2100 64 11 93/51 70 100 09/28 2001 73 12 130/57 82 100 09/28 1930 36.8 09/28 1900 71 11 123/58 84 97 09/28 1830 60 12 117/53 76 100 09/28 1800 68 21 116/59 80 100 09/28 1730 66 13 136/60 87 100 09/28 1700 68 14 112/55 77 100 09/28 1630 66 13 114/55 79 100 09/28 1606 68 16 101/52 74 100 04 1600 71 18 100 04 1600 36.7 100 Nasal 3.383623 cannula 09/28 1600 98 High flow 3.016480 nasal cannula 09/28 1530 92 31 104/58 75 99 / 1500 71 15 111/55 78 100 09/28 1430 73 15 141/66 93 100 04 1400 72 16 127/60 87 100 04 1330 73 18 129/60 86 100 09/28 1300 74 16 130/62 89 100 04 1230 79 18 128/61 88 100 09/28 1200 98 High flow 3.048730 nasal cannula 09/28 1200 74 16 126/58 84 100 09/28 1200 36.7 100 Nasal 3.759195 cannula 09/28 1130 83 20 142/62 89 100 09/28 1100 80 18 111/59 82 100 09/28 1030 82 27 102/72 84 95 / 1000 79 21 111/55 79 100 09/28 0930 81 24 108/54 78 100 09/28 0900 77 21 110/56 81 100 09/28 0830 73 21 119/57 82 100 09/28 0825 100 Nasal 3.200691 cannula 09/28 0800 Nasal 3.643082 cannula 09/28 0800 76 25 115/58 83 09/28 0800 36.4 100 Nasal 3.669970 cannula 09/28 0730 83 26 113/55 79 100 24 hour I O ending at 0700: 09/29 0700 09/28 1900 Intake Total 370.00 1150.00 Output Total 1050 900 Balance -680.00 250.00 Intake, IV 370.00 1140.00 Intake, Oral 10 Number 3 Bowel Movements Output, Stool 50 Output, Urine 1000 900 MedicationsActive Meds + DC'd Last 24 HrsZinc Oxide 1 APPLIC BID TOPICAL Lidocaine 1 EA Q24H TOPICAL Insulin Human Lispro 0 AC HS SUBQ Pantoprazole Sodium 40 MG DAILY IV Sodium Chloride 10 ML ASDIR PRN IV Pantoprazole 40 MG DAILY@0600 PO (DC) Dextrose/Water 250 ML .Q8H20M IV Potassium Chloride 100 ML Q1HR IV (DC) Dextrose/Water 30 ML Q12H IV (DC) Ondansetron HCl 8 MG ONCE ONE IV (DC) Furosemide 60 MG Q8H IV (DC) Metolazone 5 MG ONCE ONE PO (DC) Dextrose/Sodium Chloride 1,000 ML .D72W36G IV (DC) Vancomycin HCl 1,000 MG DIALYSIS-DOSE AFTER IV (CKD) Sodium Chloride 250 MLMorphine Sulfate 2 MG Q4H PRN PRN IV Acetaminophen 650 MG Q4H PRN PRN PO Sodium Bicarbonate 75 ML Q10H IV (DC) Dextrose/Sodium Chloride 1,000 MLDextrose/Water 50 ML ASDIR PRN IV (DC) Dextrose/Water 1,000 ML ASDIR IV (DC) Insulin Human Regular 100 UNIT ASDIR IV (DC) Sodium Chloride 99 MLMagnesium Sulfate 50 ML ASDIR PRN IV (DC) Magnesium Sulfate 100 ML ASDIR PRN IV (DC) Potassium Chloride 100 ML ASDIR PRN IV (DC) Potassium Phosphate 15 MM ASDIR PRN IV (DC) Sodium Chloride 250 MLHeparin Sodium 5,000 UNIT Q12HR SUBQ Piperacillin Sod/Tazobactam Sod 3.375 GM Q12H IV Sodium Chloride 100 MLPhenylephrine HCl 30 MG ASDIR IV (DC) Sodium Chloride 247 MLSodium Chloride 500 ML ONCE ONE IV (DC) Vasopressin 20 UNIT ASDIR IV (DC) Sodium Chloride 100 MLMiscellaneous Information 1 EACH ASDIR IV (CKD) Albumin Human 12.5 GM ASDIR PRN IV Heparin Sodium (Porcine) 1,000 UNIT ASDIR PRN DIALYSIS Mannitol 12.5 GM ASDIR PRN IV Sodium Chloride 2,000 ML ASDIR PRN IV Sodium Chloride 10 ML ASDIR PRN IV Sodium Chloride 250 ML ASDIR PRN IV Norepinephrine Bitartrate 250 ML ASDIR PRN IV Sodium Chloride 0 ASDIR PRN IV Physical ExamGeneral appearance: alert, no acute distressHead/eyes: atraumatic, normocephalicENT: normal noseNeck: supple/no meningismusCardiovascular: normal heart sounds, no rubRespiratory: aerating well, symmetric expansionAbdomen: softGenitourinary: ballard, urineExtremities: no edemaMusculoskeletal: normal inspectionNeuro/FAST FOOD ATTENDANT: altered mental statusSkin: dry ResultsFindings/Data:Laboratory Tests 09/27 09/26 1147 0956 Blood Gas Puncture Site R Rad L Rad ABG pH (7.35 - 7.45) 7.395 7.489 H ABG pCO2 (35 - 45 mmHg) 24.1 *L 25.6 L ABG pO2 (80 - 100 mmHg) 136 H 67 L ABG HCO3 (22.0 - 26.0 mmol/L) 14.7 L 19.6 L ABG Total CO2 15 20 ABG O2 Saturation (90 - 100 %) 99 95 ABG Base Excess (-4 - 4 mmol/L) -10.0 L -4.0 Temperature (F) 98.6 98.0 O2 Delivery Device Cannula Cannula Laboratory Tests 04/20 09/29 09/28 09/28 09/28 0531 0531 2337 1724 1724Chemistry Sodium (134 - 147 mEq/L) 138 139 139 Potassium (3.4 - 5.0 mEq/L) 3.5 3.9 3.7 Chloride (100 - 108 mEq/L) 100 101 103 Carbon Dioxide (21 - 33 mEq/L) 34 H 34 H 31 Anion Gap (0 - 20) 8 8 9 BUN (7 - 18 mg/dL) 22 H 23 H 21 H Creatinine (0.6 - 1.3 mg/dL) 2.4 H 2.4 H 2.1 H Glomerular Filtr Rate (70 - 80) 19.8 L 19.8 L 23.2 L Glucose (70 - 110 mg/dL) 270 H 231 H 186 H Lactic Acid (0.4 - 1.9 mmol/L) 1.3 1.2 Calcium (8.0 - 10.5 mg/dL) 7.4 L 7.6 L 7.0 L Ionized Calcium Jefry (1.12 - 1.32 1.05 LMMOL/L) Phosphorus (2.5 - 4.9 MG/DL) 3.2 3.2 2.8 Magnesium (1.8 - 2.4 mg/dL) 1.90 1.80 2.00 Total Bilirubin (<1.5 MG/DL) 0.3 AST (15 - 37 IUnit/L) 31 ALT (15 - 65 IUnit/L) 39 Total Alk Phosphatase (20 - 125 IUnit/L) 69 Total Protein (6.4 - 8.2 g/dL) 5.0 L Albumin (3.4 - 5.0 g/dL) 1.80 L 09/28 09/28 09/28 09/28 09/28 1551 1231 1225 1008 0753 Chemistry Sodium (134 - 147 mEq/L) 141 Potassium (3.4 - 5.0 mEq/L) 4.5 Chloride (100 - 108 mEq/L) 104 Carbon Dioxide (21 - 33 mEq/L) 31 Anion Gap (0 - 20) 11 BUN (7 - 18 mg/dL) 19 H Creatinine (0.6 - 1.3 mg/dL) 2.1 H Glomerular Filtr Rate (70 - 80) 23.2 L Glucose (70 - 110 mg/dL) 156 H POC Glucose (70 - 110 MG/DL) 154 H 143 H 112 H 79 Calcium (8.0 - 10.5 mg/dL) 7.3 L Phosphorus (2.5 - 4.9 MG/DL) 3.1 Magnesium (1.8 - 2.4 mg/dL) 1.90 09/28 09/28 09/28 09/28 09/28 K 0444 0443 0443 0443 Chemistry Sodium (134 - 147 mEq/L) 142 Potassium (3.4 - 5.0 mEq/L) 2.7 *L Chloride (100 - 108 mEq/L) 103 Carbon Dioxide (21 - 33 mEq/L) 32 Anion Gap (0 - 20) 10 BUN (7 - 18 mg/dL) 19 H Creatinine (0.6 - 1.3 mg/dL) 2.2 H Glomerular Filtr Rate (70 - 80) 21.9 L Glucose (70 - 110 mg/dL) 109 Hemoglobin A1c (4.8 - 6.0 %A1C) 6.0 Lactic Acid (0.4 - 1.9 mmol/l) 2.1 H 4.0 H Calcium (8.0 - 10.5 mg/dL) 7.2 L Phosphorus (2.5 - 4.9 MG/DL) 1.4 L Magnesium (1.8 - 2.4 mg/dL) 2.00 B-Natriuretic Peptide (0 - 100 PG/ML) 546.7 H 09/28 09/27 09/27 09/27 09/27 0136 2314 2312 2312 2044 Chemistry Sodium (134 - 147 mEq/L) 143 Potassium (3.4 - 5.0 mEq/L) 3.5 Chloride (100 - 108 mEq/L) 104 Carbon Dioxide (21 - 33 mEq/L) 30 Anion Gap (0 - 20) 13 BUN (7 - 18 mg/dL) 20 H Creatinine (0.6 - 1.3 mg/dL) 2.1 H Glomerular Filtr Rate (70 - 80) 23.2 L Glucose (70 - 110 mg/dL) 128 H POC Glucose (70 - 110 MG/DL) 134 H 138 H 130 H Calcium (8.0 - 10.5 mg/dL) 7.6 L Phosphorus (2.5 - 4.9 MG/DL) 1.9 L Magnesium (1.8 - 2.4 mg/dL) 2.00 09/27 09/27 09/27 09/27 09/27 1842 1804 1700 1502 1407 Chemistry Sodium (134 - 147 mEq/L) 142 Potassium (3.4 - 5.0 mEq/L) 3.3 L Chloride (100 - 108 mEq/L) 104 Carbon Dioxide (21 - 33 mEq/L) 22 Anion Gap (0 - 20) 19 BUN (7 - 18 mg/dL) 20 H Creatinine (0.6 - 1.3 mg/dL) 1.9 H Glomerular Filtr Rate (70 - 80) 26.0 L Glucose (70 - 110 mg/dL) 153 H POC Glucose (70 - 110 MG/DL) 151 H 152 H 123 H 138 H Calcium (8.0 - 10.5 mg/dL) 7.1 L Phosphorus (2.5 - 4.9 MG/DL) 2.2 L Magnesium (1.8 - 2.4 mg/dL) 2.10 09/27 09/27 09/27 09/27 09/27 1230 1044 1044 0438 0438 Chemistry Sodium (134 - 147 mEq/L) 143 144 Potassium (3.4 - 5.0 mEq/L) 3.2 L 3.3 L Chloride (100 - 108 mEq/L) 104 104 Carbon Dioxide (21 - 33 mEq/L) 18 L 16 L Anion Gap (0 - 20) 24 H 27 H BUN (7 - 18 mg/dL) 20 H 14 Creatinine (0.6 - 1.3 mg/dL) 1.5 H 1.2 Glomerular Filtr Rate (70 - 80) 34.1 L 44.2 L Glucose (70 - 110 mg/dL) 159 H 167 H Lactic Acid (0.4 - 1.9 mmol/L) 1.3 1.2 Calcium (8.0 - 10.5 mg/dL) 7.4 L 7.4 L Phosphorus (2.5 - 4.9 MG/DL) 2.9 Magnesium (1.8 - 2.4 mg/dL) 2.30 2.30 09/27 09/26 09/26 09/26 09/26 0011 1816 1802 1515 1515 Chemistry POC Glucose (70 - 110 MG/DL) 169 H 129 H Lactic Acid (0.4 - 1.9 mmol/l) 1.6 2.4 H B-Natriuretic Peptide (0 - 100 PG/ML) 1269.2 H 09/26 09/26 09/26 1515 1210 0918 Chemistry Sodium (134 - 147 mEq/L) 143 Potassium (3.4 - 5.0 mEq/L) 3.4 Chloride (100 - 108 mEq/L) 104 Carbon Dioxide (21 - 33 mEq/L) 23 Anion Gap (0 - 20) 19 BUN (7 - 18 mg/dL) 5 L Creatinine (0.6 - 1.3 mg/dL) 0.6 Glomerular Filtr Rate (70 - 80) 98.3 H Glucose (70 - 110 mg/dL) 139 H POC Glucose (70 - 110 MG/DL) 158 H Lactic Acid (0.4 - 1.9 mmol/l) 2.0 H Calcium (8.0 - 10.5 mg/dL) 7.1 L Phosphorus (2.5 - 4.9 MG/DL) 2.6 Magnesium (1.8 - 2.4 mg/dL) 1.60 L Laboratory Tests 09/29 09/28 09/27 0531 0443 0438Hematology WBC (4.5 - 11.0 x10 3/uL) 10.57 13.57 H 15.02 H RBC (3.54 - 5.02 x10 6/uL) 2.60 L 2.58 L 2.79 L Hgb (11.0 - 15.0 g/dL) 7.8 L 7.8 L 8.4 L Hct (33.0 - 45.0 %) 24.0 L 23.0 L 26.0 L MCV (81.0 - 99.0 fL) 92.3 89.1 93.2 MCH (27.0 - 33.0 pg) 30.0 30.2 30.1 MCHC (33.0 - 37.0 g/dL) 32.5 L 33.9 32.3 L RDW (11.5 - 14.5 %) 14.0 14.0 14.1 Plt Count (150 - 400 x10 3/uL) 60 L 81 L 99 L MPV (7.0 - 9.0 fL) 12.3 H 12.0 H 11.7 H Neut % (Auto) (56.0 - 77.0 %) 81.0 H 86.6 H 85.4 H Lymph % (Auto) (14.0 - 32.0 %) 12.7 L 7.1 L 6.5 L [place] % (Auto) (4.8 - 9.0 %) 5.2 4.6 L 7.5 Eos % (Auto) (0.3 - 3.7 %) 0.5 0.1 L 0.1 L Baso % (Auto) (0.0 - 2.0 %) 0.1 0.1 0.1 Neut # (Auto) (2.0 - 7.6 x10 3/uL) 8.57 H 11.76 H 12.84 H Lymph # (Auto) (1.0 - 3.8 x10 3/uL) 1.34 0.96 L 0.97 L [place] # (Auto) (0.1 - 0.8 x10 3/uL) 0.55 0.62 1.12 H Eos # (Auto) (0.0 - 0.2 x10 3/uL) 0.05 0.01 0.02 Baso # (Auto) (0.0 - 0.2 x10 3/uL) 0.01 0.02 0.01 Abs Immat Gran (auto) (0.00 - 0.03 x10 3/uL) 0.05 H 0.20 H 0.06 H Add Manual Diff NO NO NO Immature Gran % (0.0 - 2.0 %) 0.5 1.5 0.4 Nucleated RBC % (0 - 0 %) 0.0 0.0 0.0 Nucleated RBCs # (Man) (0.0 - 0.1 x10 3/uL) 0.00 0.00 0.00 Platelet Estimate (ADEQUATE THOUSAND) 80-100 Plt Morphology Comment LARGE PLATELETS 09/26 1515 Hematology WBC (4.5 - 11.0 x10 3/uL) 18.06 H RBC (3.54 - 5.02 x10 6/uL) 3.10 L Hgb (11.0 - 15.0 g/dL) 9.5 L Hct (33.0 - 45.0 %) 27.6 L MCV (81.0 - 99.0 fL) 89.0 MCH (27.0 - 33.0 pg) 30.6 MCHC (33.0 - 37.0 g/dL) 34.4 RDW (11.5 - 14.5 %) 13.5 Plt Count (150 - 400 x10 3/uL) 131 L MPV (7.0 - 9.0 fL) 11.4 H Neut % (Auto) (56.0 - 77.0 %) 84.8 H Lymph % (Auto) (14.0 - 32.0 %) 4.9 L [place] % (Auto) (4.8 - 9.0 %) 9.3 H Eos % (Auto) (0.3 - 3.7 %) 0.0 L Baso % (Auto) (0.0 - 2.0 %) 0.1 Neut # (Auto) (2.0 - 7.6 x10 3/uL) 15.30 H Lymph # (Auto) (1.0 - 3.8 x10 3/uL) 0.89 L [place] # (Auto) (0.1 - 0.8 x10 3/uL) 1.68 H Eos # (Auto) (0.0 - 0.2 x10 3/uL) 0.00 Baso # (Auto) (0.0 - 0.2 x10 3/uL) 0.02 Abs Immat Gran (auto) (0.00 - 0.03 x10 3/uL) 0.17 H Add Manual Diff NO Immature Gran % (0.0 - 2.0 %) 0.9 Nucleated RBC % (0 - 0 %) 0.2 H Nucleated RBCs # (Man) (0.0 - 0.1 x10 3/uL) 0.04 Laboratory Tests 09/28 0443 Toxicology Acetone, Quant (NEG - <20 mg/dL) NEGATIVE - <20mg/dL 09/27 09/27 1044 0438 Toxicology Random Vancomycin (mcg/mL) 12.8 Acetone, Quant (NEG - <20 mg/dL) Large - 80-100 mg/dL Laboratory Tests 09/27 1044 Urines Urine Color (YEL/STRAW) YELLOW Urine Appearance (CLEAR) SL CLOUDY Urine pH (5.0 - 7.0) 5.0 Ur Specific [place] (1.005 - 1.030) 1.006 Urine Protein (NEGATIVE) 1+ H Urine Glucose (UA) (NEGATIVE) 3+ H Urine Ketones (NEGATIVE) 2+ H Urine Blood (NEGATIVE) 3+ H Urine Nitrite (NEGATIVE) NEGATIVE Urine Bilirubin (NEGATIVE) NEGATIVE Urine Urobilinogen (0.2 - 1.0 mg/dL) 0.2 Ur Leukocyte Esterase (NEGATIVE) 2+ H Urine RBC (0 - 3 RBC/HPF) 21-50 Urine WBC (0 - 3 WBC/HPF) 21-50 H Ur Squamous Epith Cells (NONE SEEN /HPF) 0-5 Ur Transition Epith Cell (NONE SEEN /HPF) TRACE Amorphous Sediment (NONE /HPF) 1+ H Urine Bacteria (NONE SEEN /HPF) 1+ H Hyaline Casts (NONE SEEN /LPF) 3-5 Urine Mucus (NONE SEEN /LPF) TRACE Recent Impressions:RADIOLOGY - XR CHEST 1 V 09/28 0541 Report Impression - Status: SIGNED Entered: 09/29/2019 0712 IMPRESSION:1. Severe pulmonary vascular congestion and or pulmonary edema withdeveloping moderate bilateral layering pleural effusions.2. Developing dense left retrocardiac opacity, probably representingatelectasis or early consolidation.3. Enlarged cardiac silhouette. SL: [id number] By: [email or web address] - Scott Duran M.D. Laboratory Tests 09/29 09/29 09/28 09/28 09/28 0531 0531 2337 1724 1724Chemistry Sodium (134 - 147 mEq/L) 138 139 139 Potassium (3.4 - 5.0 mEq/L) 3.5 3.9 3.7 Chloride (100 - 108 mEq/L) 100 101 103 Carbon Dioxide (21 - 33 mEq/L) 34 H 34 H 31 Anion Gap (0 - 20) 8 8 9 BUN (7 - 18 mg/dL) 22 H 23 H 21 H Creatinine (0.6 - 1.3 mg/dL) 2.4 H 2.4 H 2.1 H Glomerular Filtr Rate (70 - 80) 19.8 L 19.8 L 23.2 L Glucose (70 - 110 mg/dL) 270 H 231 H 186 H Lactic Acid (0.4 - 1.9 mmol/L) 1.3 1.2 Calcium (8.0 - 10.5 mg/dL) 7.4 L 7.6 L 7.0 L Ionized Calcium Jefry (1.12 - 1.32 1.05 LMMOL/L) Phosphorus (2.5 - 4.9 MG/DL) 3.2 3.2 2.8 Magnesium (1.8 - 2.4 mg/dL) 1.90 1.80 2.00 Total Bilirubin (<1.5 MG/DL) 0.3 AST (15 - 37 IUnit/L) 31 ALT (15 - 65 IUnit/L) 39 Total Alk Phosphatase (20 - 125 69IUnit/L) Total Protein (6.4 - 8.2 g/dL) 5.0 L Albumin (3.4 - 5.0 g/dL) 1.80 L 09/28 09/28 09/28 09/28 09/28 1551 1231 1225 1008 0753 Chemistry Sodium (134 - 147 mEq/L) 141 Potassium (3.4 - 5.0 mEq/L) 4.5 Chloride (100 - 108 mEq/L) 104 Carbon Dioxide (21 - 33 mEq/L) 31 Anion Gap (0 - 20) 11 BUN (7 - 18 mg/dL) 19 H Creatinine (0.6 - 1.3 mg/dL) 2.1 H Glomerular Filtr Rate (70 - 80) 23.2 L Glucose (70 - 110 mg/dL) 156 H POC Glucose (70 - 110 MG/DL) 154 H 143 H 112 H 79 Calcium (8.0 - 10.5 mg/dL) 7.3 L Phosphorus (2.5 - 4.9 MG/DL) 3.1 Magnesium (1.8 - 2.4 mg/dL) 1.90 Laboratory Tests 09/29 0531 Hematology WBC (4.5 - 11.0 x10 3/uL) 10.57 RBC (3.54 - 5.02 x10 6/uL) 2.60 L Hgb (11.0 - 15.0 g/dL) 7.8 L Hct (33.0 - 45.0 %) 24.0 L MCV (81.0 - 99.0 fL) 92.3 MCH (27.0 - 33.0 pg) 30.0 MCHC (33.0 - 37.0 g/dL) 32.5 L RDW (11.5 - 14.5 %) 14.0 Plt Count (150 - 400 x10 3/uL) 60 L MPV (7.0 - 9.0 fL) 12.3 H Neut % (Auto) (56.0 - 77.0 %) 81.0 H Lymph % (Auto) (14.0 - 32.0 %) 12.7 L [place] % (Auto) (4.8 - 9.0 %) 5.2 Eos % (Auto) (0.3 - 3.7 %) 0.5 Baso % (Auto) (0.0 - 2.0 %) 0.1 Neut # (Auto) (2.0 - 7.6 x10 3/uL) 8.57 H Lymph # (Auto) (1.0 - 3.8 x10 3/uL) 1.34 [place] # (Auto) (0.1 - 0.8 x10 3/uL) 0.55 Eos # (Auto) (0.0 - 0.2 x10 3/uL) 0.05 Baso # (Auto) (0.0 - 0.2 x10 3/uL) 0.01 Abs Immat Gran (auto) (0.00 - 0.03 x10 3/uL) 0.05 H Add Manual Diff NO Immature Gran % (0.0 - 2.0 %) 0.5 Nucleated RBC % (0 - 0 %) 0.0 Nucleated RBCs # (Man) (0.0 - 0.1 x10 3/uL) 0.00 Diagnosis, Assessment PlanFree Text A P:Patient seen and evaluated, discussed with care team, images and laboratories reviewed.History of dementiaHistory of rheumatoid arthritisHistory of frequent fallsHistory of frequent UTIsHistory of hypertension: Currently hypotensiveHypokalemia: We will supplementSevere hypomagnesemia we will supplementHypocalcemia: We will supplementHypoalbuminemiaSevere lactic acidosis: Etiology, could be related to septic shock, however source is unclear, rule out ischemic bowel, Zosyn, will need to review her medications if patient has been on metformin, lactic acidosis due to metformin in the setting of acute renal failure is a possibility and will do hemodialysis in the setting.Patient has been taking Metformin 1000 BID, kenneth has lactic acidosis that is induced by Metformin, discussed with deysi and ICC/Primary team will proceed with HD09/27/2019 mental status a lot better, hemodynamically more stable, pressors being weaned off, received 6 hours of hemodialysis yesterday, her last set of blood gas showed a pH of 7.40, PCO2 25, PO2 55, lactic acid 6.2 improving, sodium is 143 potassium 3.6 CO2 20 chloride 101 BUN 13 creatinine 1.1, hemoglobin this morning 9.7, white blood count 19.78 trending down, platelet 156, her clinical picture is consistent with metformin induced lactic acidosis, will do another session of hemodialysis, 4 hours, potassium 3.5, no ultrafiltration, will give 20 mmol of potassium phosphate and expectation of hypophosphatemia during hemodialysis. katie and evaluated during HD, discussed with RN and HD nurse09/28/2019 laboratories from this morning showed sodium 144, potassium 3.3 we will give KCl 20 mEq IV x1, chloride 104, bicarbonate 16, creatinine 1.2, lacticacid 1.2, hemoglobin 8.4, white blood count 15.2, blood culture still negative, anion gap today is 24 with a normal lactic acid etiology unclear will repeat BMP, repeat lactic acid and order serum acetone and do urinalysis to check for urine ketones, also will do a blood gas. Ketones came back as large, This is likley starvation ketoacidosis that has been exacerbated by gluconeogenesis inhibition by Metformin and has been reported in the literature, will start Glucose and insulin drip09/29/2019 laboratories from this morning showed sodium 142, potassium 2.7 we will give KCl 20 mEq IV x2, bicarbonate 32 with a chloride of 103 with disappearance of the anion gap correction of anion gap, will DC IV fluid with sodium bicarbonate, will DC insulin drip, changed to insulin sliding scale, start D10 at 30 cc/h since patient is noted nauseated, her chest x-ray showed pulmonary edema, will give IV Lasix 60 mg every 8 hours, give a dose of metolazone, her phosphorus 1.4, will give potassium phosphate 15 mmol IV x1, recheck lab in the afternoon, her lactic acid is 4 up some, not clear why is it elevated, we will recheck in the afternoon, her creatinine is 2.2, not sure whather baseline creatinine, her creatinine is relatively stable since yesterday, will monitor closely, hemoglobin is 7.8, white blood count 13.57 improving.09/30/2019 laboratories from this morning showed sodium 138, potassium 3.5, CO2 34, chloride 100, BUN and creatinine 22 and 2.4 up some likely related to diuretics, albumin 1.8, hemoglobin 7.8, platelet 60, white blood count 10.51 continues to trend down, lactic acid 1.2 within normal limit, urine output [id number] cc with Lasix. Chest x-ray still pending. Progressive thrombocytopenia with progressive decrease in hemoglobin, the latter could be related to fluid resuscitation, multiple blood draws and blood loss during dialysis procedure, however will check LDH, haptoglobin, PT/ PT. at 1209 RPT #:[id number] OF REPORTPRProgress [id number]:09:00G.[id number] for patient vbmaSARHXLANGXHNGZ2604-31-72Y09:09:44 [facility] 2019-09-29 19:57:00 [id number]+[id number] UVKettHoo3DT3W0kc [id number]-47-81C28:57:00 [facility])Gastroenterology Progress NoteREPORT#:[id number] REPORT STATUS: SignedDATE:09/29/19 TIME: 1956 PATIENT: MAC AGUSTIN UNIT #: [id number]#: [id number] [address] AGE: 74 SEX: F ATTEND: Joel Myers [facility] AUTHOR: Cam Delgadillo MD * ALL edits or amendments must be made on the electronic/computer document * SubjectiveChief Complaint:Grenish watery stool. Review of SystemsUnable to obtain due to: Dementia Objective GeneralMedications:Active Meds + DC'd Last 24 HrsZinc Oxide 1 APPLIC BID TOPICAL Lidocaine 1 EA Q24H TOPICAL Insulin Human Lispro 0 AC HS SUBQ Pantoprazole Sodium 40 MG DAILY IV Sodium Chloride 10 ML ASDIR PRN IV Pantoprazole 40 MG DAILY@0600 PO (DC) Dextrose/Water 250 ML .Q8H20M IV Potassium Chloride 100 ML Q1HR IV (DC) Dextrose/Water 30 ML Q12H IV (DC) Ondansetron HCl 8 MG ONCE ONE IV (DC) Furosemide 60 MG Q8H IV Metolazone 5 MG ONCE ONE PO (DC) Dextrose/Sodium Chloride 1,000 ML .[id number] IV (DC) Vancomycin HCl 1,000 MG DIALYSIS-DOSE AFTER IV (CKD) Sodium Chloride 250 MLMorphine Sulfate 2 MG Q4H PRN PRN IV Acetaminophen 650 MG Q4H PRN PRN PO Sodium Bicarbonate 75 ML Q10H IV (DC) Dextrose/Sodium Chloride 1,000 MLDextrose/Water 50 ML ASDIR PRN IV (DC) Dextrose/Water 1,000 ML ASDIR IV (DC) Insulin Human Regular 100 UNIT ASDIR IV (DC) Sodium Chloride 99 MLMagnesium Sulfate 50 ML ASDIR PRN IV (DC) Magnesium Sulfate 100 ML ASDIR PRN IV (DC) Potassium Chloride 100 ML ASDIR PRN IV (DC) Potassium Phosphate 15 MM ASDIR PRN IV (DC) Sodium Chloride 250 MLHeparin Sodium 5,000 UNIT Q12HR SUBQ Piperacillin Sod/Tazobactam Sod 3.375 GM Q12H IV Sodium Chloride 100 MLPhenylephrine HCl 30 MG ASDIR IV (DC) Sodium Chloride 247 MLSodium Chloride 500 ML ONCE ONE IV (DC) Vasopressin 20 UNIT ASDIR IV (DC) Sodium Chloride 100 MLMiscellaneous Information 1 EACH ASDIR IV (CKD) Albumin Human 12.5 GM ASDIR PRN IV Heparin Sodium (Porcine) 1,000 UNIT ASDIR PRN DIALYSIS Mannitol 12.5 GM ASDIR PRN IV Sodium Chloride 2,000 ML ASDIR PRN IV Sodium Chloride 10 ML ASDIR PRN IV Sodium Chloride 250 ML ASDIR PRN IV Norepinephrine Bitartrate 250 ML ASDIR PRN IV Sodium Chloride 0 ASDIR PRN IV Nutrition assessment:The data set between the solid lines has been imported from the dietitian's assessment. Any exceptions have been noted under Provider comments. BMI Calculated: 27.3 Nutrition related diagnosis: Nutrition diagnosis details: Nutrition problem: Nutrition etiology: Nutrition signs and symptoms: Nutrition prescription: Dietitian name: Assessment completed: Provider comments on imported dietitian assessment: Physical ExamGeneral appearance: no acute distressHEENT: moist mucosal membranesCardiovascular: normal S1/W6Sbkajbmwfgl: clear to auscultationAbdomen: non-tender, normal bowel sounds, soft, no distentionExtremities: edema ResultsFindings/Data:Laboratory Tests: 09/28 09/28 09/28 09/28 09/28 1724 1724 1551 1231 1225 Chemistry Sodium (134 - 147 mEq/L) 139 141 Potassium (3.4 - 5.0 mEq/L) 3.7 4.5 Chloride (100 - 108 mEq/L) 103 104 Carbon Dioxide (21 - 33 mEq/L) 31 31 Anion Gap (0 - 20) 9 11 BUN (7 - 18 mg/dL) 21 H 19 H Creatinine (0.6 - 1.3 mg/dL) 2.1 H 2.1 H Glomerular Filtr Rate (70 - 80) 23.2 L 23.2 L Glucose (70 - 110 mg/dL) 186 H 156 H POC Glucose (70 - 110 MG/DL) 154 H 143 H Lactic Acid (0.4 - 1.9 mmol/L) 1.2 Calcium (8.0 - 10.5 mg/dL) 7.0 L 7.3 L Phosphorus (2.5 - 4.9 MG/DL) 2.8 3.1 Magnesium (1.8 - 2.4 mg/dL) 2.00 1.90 09/28 09/28 09/28 09/28 09/28 1008 0753 UNK 0444 0443 Chemistry POC Glucose (70 - 110 MG/DL) 112 H 79 Hemoglobin A1c (4.8 - 6.0 %A1C) 6.0 Lactic Acid (0.4 - 1.9 mmol/l) 2.1 H 4.0 H 09/28 09/28 0443 0443 Chemistry Sodium (134 - 147 mEq/L) 142 Potassium (3.4 - 5.0 mEq/L) 2.7 *L Chloride (100 - 108 mEq/L) 103 Carbon Dioxide (21 - 33 mEq/L) 32 Anion Gap (0 - 20) 10 BUN (7 - 18 mg/dL) 19 H Creatinine (0.6 - 1.3 mg/dL) 2.2 H Glomerular Filtr Rate (70 - 80) 21.9 L Glucose (70 - 110 mg/dL) 109 Calcium (8.0 - 10.5 mg/dL) 7.2 L Phosphorus (2.5 - 4.9 MG/DL) 1.4 L Magnesium (1.8 - 2.4 mg/dL) 2.00 B-Natriuretic Peptide (0 - 100 PG/ML) 546.7 H Hematology WBC (4.5 - 11.0 x10 3/uL) 13.57 H RBC (3.54 - 5.02 x10 6/uL) 2.58 L Hgb (11.0 - 15.0 g/dL) 7.8 L Hct (33.0 - 45.0 %) 23.0 L MCV (81.0 - 99.0 fL) 89.1 MCH (27.0 - 33.0 pg) 30.2 MCHC (33.0 - 37.0 g/dL) 33.9 RDW (11.5 - 14.5 %) 14.0 Plt Count (150 - 400 x10 3/uL) 81 L MPV (7.0 - 9.0 fL) 12.0 H Neut % (Auto) (56.0 - 77.0 %) 86.6 H Lymph % (Auto) (14.0 - 32.0 %) 7.1 L [place] % (Auto) (4.8 - 9.0 %) 4.6 L Eos % (Auto) (0.3 - 3.7 %) 0.1 L Baso % (Auto) (0.0 - 2.0 %) 0.1 Neut # (Auto) (2.0 - 7.6 x10 3/uL) 11.76 H Lymph # (Auto) (1.0 - 3.8 x10 3/uL) 0.96 L [place] # (Auto) (0.1 - 0.8 x10 3/uL) 0.62 Eos # (Auto) (0.0 - 0.2 x10 3/uL) 0.01 Baso # (Auto) (0.0 - 0.2 x10 3/uL) 0.02 Abs Immat Gran (auto) (0.00 - 0.03 x10 3/uL) 0.20 H Add Manual Diff NO Immature Gran % (0.0 - 2.0 %) 1.5 Nucleated RBC % (0 - 0 %) 0.0 Nucleated RBCs # (Man) (0.0 - 0.1 x10 3/uL) 0.00 Toxicology Acetone, Quant (NEG - <20 mg/dL) NEGATIVE - <20mg/dL 09/28 09/27 09/27 09/27 09/27 0136 2314 2312 2312 2044 Chemistry Sodium (134 - 147 mEq/L) 143 Potassium (3.4 - 5.0 mEq/L) 3.5 Chloride (100 - 108 mEq/L) 104 Carbon Dioxide (21 - 33 mEq/L) 30 Anion Gap (0 - 20) 13 BUN (7 - 18 mg/dL) 20 H Creatinine (0.6 - 1.3 mg/dL) 2.1 H Glomerular Filtr Rate (70 - 80) 23.2 L Glucose (70 - 110 mg/dL) 128 H POC Glucose (70 - 110 MG/DL) 134 H 138 H 130 H Calcium (8.0 - 10.5 mg/dL) 7.6 L Phosphorus (2.5 - 4.9 MG/DL) 1.9 L Magnesium (1.8 - 2.4 mg/dL) 2.00 Recent Impressions:RADIOLOGY - XR CHEST 1 V 09/28 0541 Report Impression - Status: SIGNED Entered: 09/29/2019 0712 IMPRESSION:1. Severe pulmonary vascular congestion and or pulmonary edema withdeveloping moderate bilateral layering pleural effusions.2. Developing dense left retrocardiac opacity, probably representingatelectasis or early consolidation.3. Enlarged cardiac silhouette. SL: [id number] By: [email or web address] - Scott Duran M.D. Vital Signs: Date Time Temp Pulse Resp B/P B/P Pulse O2 O2 Flow FiO2 Mean Ox Delivery Rate 09/28 1830 60 12 117/53 76 100 09/28 1800 68 21 116/59 80 100 09/28 1730 66 13 136/60 87 100 09/28 1700 68 14 112/55 77 100 09/28 1630 66 13 114/55 79 100 09/28 1606 68 16 101/52 74 100 04 1600 71 18 100 04 1600 36.7 100 Nasal 3.465700 cannula 09/28 1600 98 High flow 3.337748 nasal cannula 09/28 1530 92 31 104/58 75 99 04 1500 71 15 111/55 78 100 04 1430 73 15 141/66 93 100 04 1400 72 16 127/60 87 100 04 1330 73 18 129/60 86 100 09/28 1300 74 16 130/62 89 100 04 1230 79 18 128/61 88 100 04 1200 98 High flow 3.410724 nasal cannula 09/28 1200 74 16 126/58 84 100 09/28 1200 36.7 100 Nasal 3.203905 cannula 09/28 1130 83 20 142/62 89 100 09/28 1100 80 18 111/59 82 100 09/28 1030 82 27 102/72 84 95 / 1000 79 21 111/55 79 100 04/ 0930 81 24 108/54 78 100 09/28 0900 77 21 110/56 81 100 09/28 0830 73 21 119/57 82 100 04 0825 100 Nasal 3.975808 cannula 09/28 0800 Nasal 3.035295 cannula 09/28 0800 76 25 115/58 83 09/28 0800 36.4 100 Nasal 3.305891 cannula Laboratory Tests 09/29/19 1724:[Embedded Image Not Available] 09/29/19 1225:[Embedded Image Not Available] 09/29/19 0443:[Embedded Image Not Available] 09/28/19 2312:[Embedded Image Not Available]Laboratory Tests 09/28 09/28 09/28 09/28 09/28 1724 1724 1551 1231 1225 Chemistry Sodium (134 - 147 mEq/L) 139 141 Potassium (3.4 - 5.0 mEq/L) 3.7 4.5 Chloride (100 - 108 mEq/L) 103 104 Carbon Dioxide (21 - 33 mEq/L) 31 31 Anion Gap (0 - 20) 9 11 BUN (7 - 18 mg/dL) 21 H 19 H Creatinine (0.6 - 1.3 mg/dL) 2.1 H 2.1 H Glomerular Filtr Rate (70 - 80) 23.2 L 23.2 L Glucose (70 - 110 mg/dL) 186 H 156 H POC Glucose (70 - 110 MG/DL) 154 H 143 H Lactic Acid (0.4 - 1.9 mmol/L) 1.2 Calcium (8.0 - 10.5 mg/dL) 7.0 L 7.3 L Phosphorus (2.5 - 4.9 MG/DL) 2.8 3.1 Magnesium (1.8 - 2.4 mg/dL) 2.00 1.90 09/28 09/28 09/28 09/28 09/28 1008 0753 UNK 0444 0443 Chemistry POC Glucose (70 - 110 MG/DL) 112 H 79 Hemoglobin A1c (4.8 - 6.0 %A1C) 6.0 Lactic Acid (0.4 - 1.9 mmol/l) 2.1 H 4.0 H 09/28 09/28 09/28 09/27 09/27 0443 0443 0136 2314 2312 Chemistry Sodium (134 - 147 mEq/L) 142 Potassium (3.4 - 5.0 mEq/L) 2.7 *L Chloride (100 - 108 mEq/L) 103 Carbon Dioxide (21 - 33 mEq/L) 32 Anion Gap (0 - 20) 10 BUN (7 - 18 mg/dL) 19 H Creatinine (0.6 - 1.3 mg/dL) 2.2 H Glomerular Filtr Rate (70 - 80) 21.9 L Glucose (70 - 110 mg/dL) 109 POC Glucose (70 - 110 MG/DL) 134 H 138 H Calcium (8.0 - 10.5 mg/dL) 7.2 L Phosphorus (2.5 - 4.9 MG/DL) 1.4 L Magnesium (1.8 - 2.4 mg/dL) 2.00 2.00 B-Natriuretic Peptide (0 - 100 PG/ML) 546.7 H 09/27 09/27 2312 2044 Chemistry Sodium (134 - 147 mEq/L) 143 Potassium (3.4 - 5.0 mEq/L) 3.5 Chloride (100 - 108 mEq/L) 104 Carbon Dioxide (21 - 33 mEq/L) 30 Anion Gap (0 - 20) 13 BUN (7 - 18 mg/dL) 20 H Creatinine (0.6 - 1.3 mg/dL) 2.1 H Glomerular Filtr Rate (70 - 80) 23.2 L Glucose (70 - 110 mg/dL) 128 H POC Glucose (70 - 110 MG/DL) 130 H Calcium (8.0 - 10.5 mg/dL) 7.6 L Phosphorus (2.5 - 4.9 MG/DL) 1.9 L Laboratory Tests 09/28 0443 Hematology WBC (4.5 - 11.0 x10 3/uL) 13.57 H RBC (3.54 - 5.02 x10 6/uL) 2.58 L Hgb (11.0 - 15.0 g/dL) 7.8 L Hct (33.0 - 45.0 %) 23.0 L MCV (81.0 - 99.0 fL) 89.1 MCH (27.0 - 33.0 pg) 30.2 MCHC (33.0 - 37.0 g/dL) 33.9 RDW (11.5 - 14.5 %) 14.0 Plt Count (150 - 400 x10 3/uL) 81 L MPV (7.0 - 9.0 fL) 12.0 H Neut % (Auto) (56.0 - 77.0 %) 86.6 H Lymph % (Auto) (14.0 - 32.0 %) 7.1 L [place] % (Auto) (4.8 - 9.0 %) 4.6 L Eos % (Auto) (0.3 - 3.7 %) 0.1 L Baso % (Auto) (0.0 - 2.0 %) 0.1 Neut # (Auto) (2.0 - 7.6 x10 3/uL) 11.76 H Lymph # (Auto) (1.0 - 3.8 x10 3/uL) 0.96 L [place] # (Auto) (0.1 - 0.8 x10 3/uL) 0.62 Eos # (Auto) (0.0 - 0.2 x10 3/uL) 0.01 Baso # (Auto) (0.0 - 0.2 x10 3/uL) 0.02 Abs Immat Gran (auto) (0.00 - 0.03 x10 3/uL) 0.20 H Add Manual Diff NO Immature Gran % (0.0 - 2.0 %) 1.5 Nucleated RBC % (0 - 0 %) 0.0 Nucleated RBCs # (Man) (0.0 - 0.1 x10 3/uL) 0.00 Laboratory Tests 09/28 0443 Toxicology Acetone, Quant (NEG - <20 mg/dL) NEGATIVE - <20mg/dL Diagnosis, Assessment PlanProblem List/A P: 1. Antibiotic-associated diarrhea Free Text A P:Plan: Agree with rectal tube to prevent skin excoriation. Maintaion normal lytes. Check stool for c-diff also. If negative. Discontinue antibiotics as soon as it is no longer required. at 2002 RPT #:[id number] OF REPORTPRProgress [id number]:57:00G.[id number] for patient xzhsNUOMAXEMGUJUDZ0946-05-20Q33:03:16 [facility] 2019-09-29 13:57:00 [id number] t8qK7E6uf8q1/DLa0 YWceIjIn90onu5KYNtZXVH8JfV3242-13-86O11:57:00 [facility]Hospital[facility] Progress NoteREPORT#:[id number] REPORT STATUS: SignedDATE:09/29/19 TIME: 1357 PATIENT: MAC AGUSTIN UNIT #: [id number]#: [id number] [address] AGE: 74 SEX: F ATTEND: Joel Myers [facility] AUTHOR: Marisabel Chu DO * ALL edits or amendments must be made on the electronic/computer document * SubjectiveChief Complaint:NO acute issues overnight per nursing. Review of SystemsUnable to obtain due to:patient with severe dementia Objective GeneralVS/I O:Vital Signs: Date Time Temp Pulse Resp B/P B/P Pulse O2 O2 Flow FiO2 Mean Ox Delivery Rate 09/28 1300 74 16 130/62 89 100 09/28 1230 79 18 128/61 88 100 09/28 1200 74 16 126/58 84 100 09/28 1200 98.1 100 Nasal 3.759744 cannula 09/28 1130 83 20 142/62 89 100 04/ 1100 80 18 111/59 82 100 04/ 1030 82 27 102/72 84 95 04/ 1000 79 21 111/55 79 100 / 0930 81 24 108/54 78 100 / 0900 77 21 110/56 81 100 / 0830 73 21 119/57 82 100 04/ 0825 100 Nasal 3.686298 cannula 09/28 0800 Nasal 3.691262 cannula 09/28 0800 76 25 115/58 83 04 0800 97.5 100 Nasal 3.520198 cannula 09/28 0730 83 26 113/55 79 100 04/ 0700 83 26 116/55 79 100 04/ 0200 77 23 121/64 84 100 / 0100 75 17 132/60 87 100 09/28 0000 98.0 09/28 0000 74 15 114/59 84 100 09/27 2300 73 16 120/59 83 100 09/27 2200 78 20 115/54 78 100 09/27 2101 94 26 105/58 75 99 09/28 1999 High flow 5.728726 nasal cannula 09/27 2000 83 23 100/57 72 100 09/27 1930 97.3 09/27 1900 90 30 93/51 67 99 09/27 1831 88 31 98/47 58 99 09/27 1801 91 26 109/51 74 100 09/27 1730 72 18 102/56 76 100 09/27 1700 71 18 101/50 72 100 09/27 1630 70 13 101/55 73 100 09/27 1600 99 High flow 5.546225 nasal cannula 09/27 1600 74 15 109/58 81 100 09/27 1600 97.5 100 High flow 10.799029 nasal cannula 09/27 1530 69 14 105/58 78 100 09/27 1500 91 28 106/54 75 100 09/27 1430 80 21 95/50 66 99 09/27 1400 74 13 101/56 76 100 24 hour I O ending at 0700: 09/28 0700 09/27 1900 Intake Total 1761.00 2341.00 Output Total 500 275 Balance 1261.00 2066.00 Intake, IV 1761.00 1841.00 Intake, Oral 500 Number 0 3 Bowel Movements Output, Urine 500 275 Patient Weight Weight (lb): 139Weight (oz): 12.37Weight (kg): 63.400 Medications:Active Meds + DC'd Last 24 HrsInsulin Human Lispro 0 AC HS SUBQ Pantoprazole Sodium 40 MG DAILY IV Sodium Chloride 10 ML ASDIR PRN IV Pantoprazole 40 MG DAILY@0600 PO (DC) Dextrose/Water 250 ML .Q8H20M IV Potassium Chloride 100 ML Q1HR IV (DC) Dextrose/Water 30 ML Q12H IV (DC) Ondansetron HCl 8 MG ONCE ONE IV (DC) Furosemide 60 MG Q8H IV (CKD) Metolazone 5 MG ONCE ONE PO (DC) Dextrose/Sodium Chloride 1,000 ML .[id number] IV (DC) Vancomycin HCl 1,000 MG DIALYSIS-DOSE AFTER IV (CKD) Sodium Chloride 250 MLFurosemide 40 MG ONCE ONE IV (DC) Morphine Sulfate 2 MG Q4H PRN PRN IV Acetaminophen 650 MG Q4H PRN PRN PO Sodium Bicarbonate 75 ML Q10H IV (DC) Dextrose/Sodium Chloride 1,000 MLDextrose/Water 50 ML ASDIR PRN IV (DC) Dextrose/Water 1,000 ML ASDIR IV (DC) Insulin Human Regular 100 UNIT ASDIR IV (DC) Sodium Chloride 99 MLMagnesium Sulfate 50 ML ASDIR PRN IV (DC) Magnesium Sulfate 100 ML ASDIR PRN IV (DC) Potassium Chloride 100 ML ASDIR PRN IV (DC) Potassium Phosphate 15 MM ASDIR PRN IV (DC) Sodium Chloride 250 MLHeparin Sodium 5,000 UNIT Q12HR SUBQ Piperacillin Sod/Tazobactam Sod 3.375 GM Q12H IV Sodium Chloride 100 MLPhenylephrine HCl 30 MG ASDIR IV (CKD) Sodium Chloride 247 MLSodium Chloride 500 ML ONCE ONE IV Vasopressin 20 UNIT ASDIR IV (CKD) Sodium Chloride 100 MLMiscellaneous Information 1 EACH ASDIR IV (CKD) Albumin Human 12.5 GM ASDIR PRN IV Heparin Sodium (Porcine) 1,000 UNIT ASDIR PRN DIALYSIS Mannitol 12.5 GM ASDIR PRN IV Sodium Chloride 2,000 ML ASDIR PRN IV Sodium Chloride 10 ML ASDIR PRN IV Sodium Chloride 250 ML ASDIR PRN IV Norepinephrine Bitartrate 250 ML ASDIR PRN IV Sodium Chloride 0 ASDIR PRN IV Physical ExamGeneral appearance: awake, no acute distress, no respiratory distressHead/Eyes: atraumatic, normocephalicENT: moist mucosal membranesNeck: no JVD, no masses or swellingCardiovascular: normal heart sounds, regular rate rhythmRespiratory: aerating well, clear to auscultation, no distress, no rales appreciated on anterior examAbdomen: soft, no distention, no guarding, no reboundGenitourinary: no bladder distentionExtremities: edema (bLE +1), no clubbing, no cyanosisMusculoskeletal: normal inspectionNeuro/FAST FOOD ATTENDANT: no motor deficitsSkin: dry, intact, normal color, normal temperature, no rashPsychiatry: normal affect, normal mood ResultsFindings/Data:Laboratory Tests 09/28 09/28 09/28 09/28 09/28 1225 UNK 0444 0443 0443 Chemistry Sodium (134 - 147 mEq/L) 141 Potassium (3.4 - 5.0 mEq/L) 4.5 Chloride (100 - 108 mEq/L) 104 Carbon Dioxide (21 - 33 mEq/L) 31 Anion Gap (0 - 20) 11 BUN (7 - 18 mg/dL) 19 H Creatinine (0.6 - 1.3 mg/dL) 2.1 H Glomerular Filtr Rate (70 - 80) 23.2 L Glucose (70 - 110 mg/dL) 156 H Hemoglobin A1c (4.8 - 6.0 %A1C) 6.0 Lactic Acid (0.4 - 1.9 mmol/l) 2.1 H 4.0 H Calcium (8.0 - 10.5 mg/dL) 7.3 L Phosphorus (2.5 - 4.9 MG/DL) 3.1 Magnesium (1.8 - 2.4 mg/dL) 1.90 B-Natriuretic Peptide (0 - 100 PG/ML) 546.7 H 09/28 09/28 09/27 09/27 09/27 0443 0136 2314 2312 2312 Chemistry Sodium (134 - 147 mEq/L) 142 143 Potassium (3.4 - 5.0 mEq/L) 2.7 *L 3.5 Chloride (100 - 108 mEq/L) 103 104 Carbon Dioxide (21 - 33 mEq/L) 32 30 Anion Gap (0 - 20) 10 13 BUN (7 - 18 mg/dL) 19 H 20 H Creatinine (0.6 - 1.3 mg/dL) 2.2 H 2.1 H Glomerular Filtr Rate (70 - 80) 21.9 L 23.2 L Glucose (70 - 110 mg/dL) 109 128 H POC Glucose (70 - 110 MG/DL) 134 H 138 H Calcium (8.0 - 10.5 mg/dL) 7.2 L 7.6 L Phosphorus (2.5 - 4.9 MG/DL) 1.4 L 1.9 L Magnesium (1.8 - 2.4 mg/dL) 2.00 2.00 09/274 1842 1804 1700 1502 Chemistry Sodium (134 - 147 mEq/L) 142 Potassium (3.4 - 5.0 mEq/L) 3.3 L Chloride (100 - 108 mEq/L) 104 Carbon Dioxide (21 - 33 mEq/L) 22 Anion Gap (0 - 20) 19 BUN (7 - 18 mg/dL) 20 H Creatinine (0.6 - 1.3 mg/dL) 1.9 H Glomerular Filtr Rate (70 - 80) 26.0 L Glucose (70 - 110 mg/dL) 153 H POC Glucose (70 - 110 MG/DL) 130 H 151 H 152 H 123 H Calcium (8.0 - 10.5 mg/dL) 7.1 L Phosphorus (2.5 - 4.9 MG/DL) 2.2 L Magnesium (1.8 - 2.4 mg/dL) 2.10 09/27 1407 Chemistry POC Glucose (70 - 110 MG/DL) 138 H Laboratory Tests 09/28 0443 Hematology WBC (4.5 - 11.0 x10 3/uL) 13.57 H RBC (3.54 - 5.02 x10 6/uL) 2.58 L Hgb (11.0 - 15.0 g/dL) 7.8 L Hct (33.0 - 45.0 %) 23.0 L MCV (81.0 - 99.0 fL) 89.1 MCH (27.0 - 33.0 pg) 30.2 MCHC (33.0 - 37.0 g/dL) 33.9 RDW (11.5 - 14.5 %) 14.0 Plt Count (150 - 400 x10 3/uL) 81 L MPV (7.0 - 9.0 fL) 12.0 H Neut % (Auto) (56.0 - 77.0 %) 86.6 H Lymph % (Auto) (14.0 - 32.0 %) 7.1 L [place] % (Auto) (4.8 - 9.0 %) 4.6 L Eos % (Auto) (0.3 - 3.7 %) 0.1 L Baso % (Auto) (0.0 - 2.0 %) 0.1 Neut # (Auto) (2.0 - 7.6 x10 3/uL) 11.76 H Lymph # (Auto) (1.0 - 3.8 x10 3/uL) 0.96 L [place] # (Auto) (0.1 - 0.8 x10 3/uL) 0.62 Eos # (Auto) (0.0 - 0.2 x10 3/uL) 0.01 Baso # (Auto) (0.0 - 0.2 x10 3/uL) 0.02 Abs Immat Gran (auto) (0.00 - 0.03 x10 3/uL) 0.20 H Add Manual Diff NO Immature Gran % (0.0 - 2.0 %) 1.5 Nucleated RBC % (0 - 0 %) 0.0 Nucleated RBCs # (Man) (0.0 - 0.1 x10 3/uL) 0.00 Laboratory Tests 09/28 0443 Toxicology Acetone, Quant (NEG - <20 mg/dL) NEGATIVE - <20mg/dL Radiology data:Recent Impressions:RADIOLOGY - XR CHEST 1 V 09/28 0541 Report Impression - Status: SIGNED Entered: 09/29/2019 0712 IMPRESSION:1. Severe pulmonary vascular congestion and or pulmonary edema withdeveloping moderate bilateral layering pleural effusions.2. Developing dense left retrocardiac opacity, probably representingatelectasis or early consolidation.3. Enlarged cardiac silhouette. SL: [id number] By: [email or web address] - Scott Duran M.D. Diagnosis, Assessment Plan Free Text DxA P NotesFree text DxA P notes:Severe lactic acidosisSevere metabolic acidosisAcute renal failureHypocalcemiaHypomagnesemia?Septic shock vs lactic acidosis from metforminDehydrationHypothermiaDMHTNDementia with behavior disturbance Plan:Ms. Agustin is a 74 yo female with non-specific symptoms of not feeling well, poor appetite that was found to have abnormal labs at [place], sent to ED for evaluation. In the ED, found to have severe lactic and metabolic acidosis. Discussed at length with ICU (Dr. Lin) and Renal (Dr Aguilar). Given her [facility] imaging, urinalysis, CXR are unremarkable for this level of acidosis, perhaps this acidosis is secondary to metformin. Plan is to dialyize patient to look for improvement. If no improvement, perhaps this is ischemic bowel. Will continue empiric Zosyn. - Zosyn- blood cultures pending- hold home meds- Accuchecks and SSI- replace electrolytes- heparin for DVT prophylaxsis 09/26Improved lactic acidosis with dialysis. Given improvement, likely this was lactic acidosis secondary to metformin. WBC persistently elevated at 19, will continue broad spectrum abx for now - blood cultures negative - UA unremarkable - monitor CBC for downtrend - if WBC remains elevated with mention of possible neoplasm in stomach, would consider work up however, this patient has dementia with low quality of life, not a good candidate for work up/treatment.BS well controlled with current insulin scheduleCheck labs in am 09/27Lactate remains normal, continue to hold metforminPt noted return of anion gap acidosis with ketonuria. Discussed with Dr. Aguilar, nephrology. Pt placed on DKA protocol to close anion gap, on D10 for glucose needs while on insulin drip.BNP elevated with clear lungs, no dependent edema, decreased O2 requirement. Give one dose of Lasix 40 mg IV, check CXR in the am, monitor for volume overload while getting DKA fluids.WBC decreased to 15, continue abx for now, d/c after 5 daysSome blood noted in stool, CT with signs of chronic inflammation. Given her dementia, unsure that patient would tolerate bowel prep. GI consulted. Appreciate input on area in stomach with possible neoplasm. Check labs in am 09/28Anion gap closed, off insulin dripElevated lactate, monitorCXR shows severe vascular congestion and pleural fluid, likely related to fluidsgiven for lactic acidosis and metabolic acidosis, pt not in respiratory distress - Lasix 60 mg IV q8 iniated by nephrology - D10 at 30 cc/hr to maintain blood sugarWBC decreased to 13, d/c abx after 5 daysColon with chronic inflammation, no work up per GIWill need EGD to evaluate abnormality in gastric wall once improvedCheck labs in am at 1403 RPT #:[id number] OF REPORTPRProgress [id number]:57:00G.[id number] for patient prgnQXWEUSVKKHHMRQ2757-21-41T35:04:04 [facility] 2019-09-29 10:19:00 [id number] lZMOwbUL3UwqNQZMo [id number]N61:19:00 [facility] ([facility])Critical Care Progress NoteREPORT#:[id number] REPORT STATUS: SignedDATE:09/29/19 TIME: 1019 PATIENT: MAC AGUSTIN UNIT #: [id number]#: [id number] [address] AGE: 74 SEX: F ATTEND: Joel Myers [facility] AUTHOR: Helga Escalante NP * ALL edits or amendments must be made on the electronic/computer document * SubjectiveChief Complaint:lethargicdenies painHPI:A 74 y/o female with past medical history significant for Alzheimer's dementia, behavioral disturbance, hypertension, type 2 diabetes mellitus, migraine headaches, anxiety disorder, bowel and bladder incontinence, rheumatoid arthritis, frequent UTI was brought from the correction. She has been unwell for the past few days. Upon arrival she was found to be hypothermic with a temperature of 33.1 C, profound lactic acidosis at 14, metabolic acidosis with pH of 6.8 and hypercapnia due to respiratory compensation at PCO2 of 9.5 mmHg. Patient is awake, follows commands minimally and answers few yes and no questions. Acute renal failure with a creatinine of 3.9. There was a question of pneumoperitoneum on the x-ray of the abdomen. CT of the abdomen did not confirm that finding. A general surgery consult was placed, no interventions required at this time. On 09/27 patient had normal lactic acid level 1.2 but anion gap 27, with positive ketones in urine and positive serum acetone. She wasstarted on an insulin gtt. Review of Systems ROSRespiratory:Denies: SOB. Cardiovascular:Denies: chest pain. GI:Denies: abdominal pain, nausea. Musculoskeletal:other (back pain). Denies: extremity pain. All systems rev neg: except as marked Objective GeneralVS/I OLast Documented: Result Date Time Pulse Ox 100 09/28 1630 B/P 114/55 09/28 1630 B/P Mean 79 09/28 1630 Pulse 66 09/28 1630 Resp 13 09/28 1630 O2 Delivery Nasal cannula 09/28 1600 O2 Flow Rate 3.712230 09/28 1600 Temp 98.1 09/28 1600 24 hour I O ending at 0700: 09/28 0700 09/27 1900 Intake Total 1761.00 2341.00 Output Total 500 275 Balance 1261.00 2066.00 Intake, IV 1761.00 1841.00 Intake, Oral 500 Number 0 3 Bowel Movements Output, Urine 500 275 Medications:Active Meds + DC'd Last 24 HrsZinc Oxide 1 APPLIC BID TOPICAL Lidocaine 1 EA Q24H TOPICAL Insulin Human Lispro 0 AC HS SUBQ Pantoprazole Sodium 40 MG DAILY IV Sodium Chloride 10 ML ASDIR PRN IV Pantoprazole 40 MG DAILY@0600 PO (DC) Dextrose/Water 250 ML .Q8H20M IV Potassium Chloride 100 ML Q1HR IV (DC) Dextrose/Water 30 ML Q12H IV (DC) Ondansetron HCl 8 MG ONCE ONE IV (DC) Furosemide 60 MG Q8H IV Metolazone 5 MG ONCE ONE PO (DC) Dextrose/Sodium Chloride 1,000 ML .[id number] IV (DC) Vancomycin HCl 1,000 MG DIALYSIS-DOSE AFTER IV (CKD) Sodium Chloride 250 MLMorphine Sulfate 2 MG Q4H PRN PRN IV Acetaminophen 650 MG Q4H PRN PRN PO Sodium Bicarbonate 75 ML Q10H IV (DC) Dextrose/Sodium Chloride 1,000 MLDextrose/Water 50 ML ASDIR PRN IV (DC) Dextrose/Water 1,000 ML ASDIR IV (DC) Insulin Human Regular 100 UNIT ASDIR IV (DC) Sodium Chloride 99 MLMagnesium Sulfate 50 ML ASDIR PRN IV (DC) Magnesium Sulfate 100 ML ASDIR PRN IV (DC) Potassium Chloride 100 ML ASDIR PRN IV (DC) Potassium Phosphate 15 MM ASDIR PRN IV (DC) Sodium Chloride 250 MLHeparin Sodium 5,000 UNIT Q12HR SUBQ Piperacillin Sod/Tazobactam Sod 3.375 GM Q12H IV Sodium Chloride 100 MLPhenylephrine HCl 30 MG ASDIR IV (CKD) Sodium Chloride 247 MLSodium Chloride 500 ML ONCE ONE IV Vasopressin 20 UNIT ASDIR IV (CKD) Sodium Chloride 100 MLMiscellaneous Information 1 EACH ASDIR IV (CKD) Albumin Human 12.5 GM ASDIR PRN IV Heparin Sodium (Porcine) 1,000 UNIT ASDIR PRN DIALYSIS Mannitol 12.5 GM ASDIR PRN IV Sodium Chloride 2,000 ML ASDIR PRN IV Sodium Chloride 10 ML ASDIR PRN IV Sodium Chloride 250 ML ASDIR PRN IV Norepinephrine Bitartrate 250 ML ASDIR PRN IV Sodium Chloride 0 ASDIR PRN IV Physical ExamGeneral appearance: sleeping comfortablyHead/Eyes: atraumatic, normocephalic, PERRLENT: dry mucosal membrane, normal noseNeck: normal thyroid, no JVD, no lymphadenopathy, no masses or swellingCardiovascular: normal heart sounds, normal S1 S2, no rub, no gallopRespiratory/Chest: on oxygen, rhonchi, clear to auscultation, symmetric expansion, no tenderness, dyspnea, tachypneaGastrointestinal: poor po intakeAbdomen: soft, non-tender, normal bowel sounds, no distention, no guarding, no mass/organomegalyGenitourinary: foleyExtremities: no calf tenderness, no cyanosis, no edema, no pedal edemaMusculoskeletal: decreased ROMNeuro/FAST FOOD ATTENDANT: no sensory deficitsSkin: dry, intact, normal color, normal temperaturePsychiatry: unable to evaluate ResultsFindings/Data:Laboratory Tests 09/29/19 0443:[Embedded Image Not Available] 09/28/19 2312:[Embedded Image Not Available] 09/28/19 1804:[Embedded Image Not Available] 09/28/19 1044:[Embedded Image Not Available]Laboratory Tests 09/27 1147 Blood Gas Puncture Site R Rad ABG pH (7.35 - 7.45) 7.395 ABG pCO2 (35 - 45 mmHg) 24.1 *L ABG pO2 (80 - 100 mmHg) 136 H ABG HCO3 (22.0 - 26.0 mmol/L) 14.7 L ABG Total CO2 15 ABG O2 Saturation (90 - 100 %) 99 ABG Base Excess (-4 - 4 mmol/L) -10.0 L Temperature (F) 98.6 O2 Delivery Device Cannula Laboratory Tests 09/28 09/28 09/28 09/28 09/28 UNK 0444 0443 0443 0443Chemistry Sodium (134 - 147 mEq/L) 142 Potassium (3.4 - 5.0 mEq/L) 2.7 *L Chloride (100 - 108 mEq/L) 103 Carbon Dioxide (21 - 33 mEq/L) 32 Anion Gap (0 - 20) 10 BUN (7 - 18 mg/dL) 19 H Creatinine (0.6 - 1.3 mg/dL) 2.2 H Glomerular Filtr Rate (70 - 80) 21.9 L Glucose (70 - 110 mg/dL) 109 Hemoglobin A1c (4.8 - 6.0 %A1C) 6.0 Lactic Acid (0.4 - 1.9 mmol/l) 2.1 H 4.0 H Calcium (8.0 - 10.5 mg/dL) 7.2 L Phosphorus (2.5 - 4.9 MG/DL) 1.4 L Magnesium (1.8 - 2.4 mg/dL) 2.00 B-Natriuretic Peptide (0 - 100 546.7 HPG/ML) 09/28 09/27 09/27 09/27 09/27 0136 2314 2312 2312 2044 Chemistry Sodium (134 - 147 mEq/L) 143 Potassium (3.4 - 5.0 mEq/L) 3.5 Chloride (100 - 108 mEq/L) 104 Carbon Dioxide (21 - 33 mEq/L) 30 Anion Gap (0 - 20) 13 BUN (7 - 18 mg/dL) 20 H Creatinine (0.6 - 1.3 mg/dL) 2.1 H Glomerular Filtr Rate (70 - 80) 23.2 L Glucose (70 - 110 mg/dL) 128 H POC Glucose (70 - 110 MG/DL) 134 H 138 H 130 H Calcium (8.0 - 10.5 mg/dL) 7.6 L Phosphorus (2.5 - 4.9 MG/DL) 1.9 L Magnesium (1.8 - 2.4 mg/dL) 2.00 09/27 09/27 09/27 09/27 09/27 1842 1804 1700 1502 1407 Chemistry Sodium (134 - 147 mEq/L) 142 Potassium (3.4 - 5.0 mEq/L) 3.3 L Chloride (100 - 108 mEq/L) 104 Carbon Dioxide (21 - 33 mEq/L) 22 Anion Gap (0 - 20) 19 BUN (7 - 18 mg/dL) 20 H Creatinine (0.6 - 1.3 mg/dL) 1.9 H Glomerular Filtr Rate (70 - 80) 26.0 L Glucose (70 - 110 mg/dL) 153 H POC Glucose (70 - 110 MG/DL) 151 H 152 H 123 H 138 H Calcium (8.0 - 10.5 mg/dL) 7.1 L Phosphorus (2.5 - 4.9 MG/DL) 2.2 L Magnesium (1.8 - 2.4 mg/dL) 2.10 09/27 09/27 09/27 1230 1044 1044 Chemistry Sodium (134 - 147 mEq/L) 143 Potassium (3.4 - 5.0 mEq/L) 3.2 L Chloride (100 - 108 mEq/L) 104 Carbon Dioxide (21 - 33 mEq/L) 18 L Anion Gap (0 - 20) 24 H BUN (7 - 18 mg/dL) 20 H Creatinine (0.6 - 1.3 mg/dL) 1.5 H Glomerular Filtr Rate (70 - 80) 34.1 L Glucose (70 - 110 mg/dL) 159 H Lactic Acid (0.4 - 1.9 mmol/L) 1.3 Calcium (8.0 - 10.5 mg/dL) 7.4 L Magnesium (1.8 - 2.4 mg/dL) 2.30 Laboratory Tests 09/28 0443 Hematology WBC (4.5 - 11.0 x10 3/uL) 13.57 H RBC (3.54 - 5.02 x10 6/uL) 2.58 L Hgb (11.0 - 15.0 g/dL) 7.8 L Hct (33.0 - 45.0 %) 23.0 L MCV (81.0 - 99.0 fL) 89.1 MCH (27.0 - 33.0 pg) 30.2 MCHC (33.0 - 37.0 g/dL) 33.9 RDW (11.5 - 14.5 %) 14.0 Plt Count (150 - 400 x10 3/uL) 81 L MPV (7.0 - 9.0 fL) 12.0 H Neut % (Auto) (56.0 - 77.0 %) 86.6 H Lymph % (Auto) (14.0 - 32.0 %) 7.1 L [place] % (Auto) (4.8 - 9.0 %) 4.6 L Eos % (Auto) (0.3 - 3.7 %) 0.1 L Baso % (Auto) (0.0 - 2.0 %) 0.1 Neut # (Auto) (2.0 - 7.6 x10 3/uL) 11.76 H Lymph # (Auto) (1.0 - 3.8 x10 3/uL) 0.96 L [place] # (Auto) (0.1 - 0.8 x10 3/uL) 0.62 Eos # (Auto) (0.0 - 0.2 x10 3/uL) 0.01 Baso # (Auto) (0.0 - 0.2 x10 3/uL) 0.02 Abs Immat Gran (auto) (0.00 - 0.03 x10 3/uL) 0.20 H Add Manual Diff NO Immature Gran % (0.0 - 2.0 %) 1.5 Nucleated RBC % (0 - 0 %) 0.0 Nucleated RBCs # (Man) (0.0 - 0.1 x10 3/uL) 0.00 Laboratory Tests 09/28 0443 Toxicology Acetone, Quant (NEG - <20 mg/dL) NEGATIVE - <20mg/dL 09/27 104 Toxicology Acetone, Quant (NEG - <20 mg/dL) Large - 80-100 mg/dL Laboratory Tests 09/27 104 Urines Urine Color (YEL/STRAW) YELLOW Urine Appearance (CLEAR) SL CLOUDY Urine pH (5.0 - 7.0) 5.0 Ur Specific [place] (1.005 - 1.030) 1.006 Urine Protein (NEGATIVE) 1+ H Urine Glucose (UA) (NEGATIVE) 3+ H Urine Ketones (NEGATIVE) 2+ H Urine Blood (NEGATIVE) 3+ H Urine Nitrite (NEGATIVE) NEGATIVE Urine Bilirubin (NEGATIVE) NEGATIVE Urine Urobilinogen (0.2 - 1.0 mg/dL) 0.2 Ur Leukocyte Esterase (NEGATIVE) 2+ H Urine RBC (0 - 3 RBC/HPF) 21-50 Urine WBC (0 - 3 WBC/HPF) 21-50 H Ur Squamous Epith Cells (NONE SEEN /HPF) 0-5 Ur Transition Epith Cell (NONE SEEN /HPF) TRACE Amorphous Sediment (NONE /HPF) 1+ H Urine Bacteria (NONE SEEN /HPF) 1+ H Hyaline Casts (NONE SEEN /LPF) 3-5 Urine Mucus (NONE SEEN /LPF) TRACE Radiology dataRecent Impressions:RADIOLOGY - XR CHEST 1 V 09/28 0541 Report Impression - Status: SIGNED Entered: 09/29/2019711 IMPRESSION:1. Severe pulmonary vascular congestion and or pulmonary edema withdeveloping moderate bilateral layering pleural effusions.2. Developing dense left retrocardiac opacity, probably representingatelectasis or early consolidation.3. Enlarged cardiac silhouette. SL: [id number] By: [email or web address] - Scott Duran M.D. Results: labs reviewed, vital signs stable, current med profile rev'd Diagnosis, Assessment PlanProblem list/A P: 1. Lactic acidosis 2. Acute renal failure 3. DKA (diabetic ketoacidoses) 4. Gastric distention 5. Metabolic acidosis Free text A P: 09/27/2019Severe lactic acidosis, secondary to metformin use?, Case discussed with nephrology extensively.Hemodialysis catheter was placed yesterday, the patient had a hemodialysis yesterday, and plan is to do hemodialysis todayAcidosis improved, also the lactic acid has been trending down. Monitor electrolytes, monitor lactate. Plan is to replace electrolytes during hemodialysisShortness of breath is better, patient currently on nasal cannula, keep O2 sats more than 90%Sepsis?, Source?, Continue Zosyn and vancomycin IV for now, MRSA screen came back positive, blood cultures are no growth today. White blood cell count is 19.7Continue heparin for DVT prophylaxisKeep map more than 65 mmhg, currently patient is on Levophed and vasopressin drip, will try to wean pressors if possible.Continue sliding scale insulin, monitor glucoseWe will see if she can swallow today to see if we can start dietBicarb drip has been stopped, acidemia resolving She is DNR/DNICritical care time 31 minutes Plan of Care 09/28/19 NEUROH/O dementia with behavior disturbance and anxiety disorder. Begin home meds when cleared to take PO. Add Tylenol prn for pain, and adjust as needed. CVHypotension-resolved. Off pressors. PULMHypoxemia improving- tolerating 5L [place]. p02 on ABG this am is 136, wean O2 as tolerated. GIAdvance diet as tolerated. General Sx consult for questionable pnemoperitoneum-no intervention required at this time. CT Abdomen shows diffuse colonic wall thickening and moderately dilated stomach-GI consult placed. RENALMetformin induced lactic acidosis-Nephrology following and managing HD. On Bicarb gtt, Bicarb this AM 16 on BMP and AG increased from 19->27. Lactic acid 1.2. BUN 14 Crea 1.2 stable. ENDORepeat UA shows 2+ ketones and serum acetone+. Started on insulin gtt per nephrology. Serial BMP and repeat serum acetone in AM. HEMEAnemia-H/H stable 8.10/05. Plt count 99 this AM. No signs of bleeding. Transfuse if Hgb <7. IDLeukocytosis improving WBC 15.02. Continue broad spectrum antibiotics with Vanco/Zosyn. MRSA nares positive, Blood cx negative x 48hours. MSKPT/OT to evaluate and treat when medically stable. PROPHYLAXISSCDs/heparin/ DISPOMonitor closely in the ICU. CM for discharge planning. 09/29/19NEUROH/O dementia with behavior disturbance and anxiety disorder. Begin home meds when cleared to take PO. Add Tylenol prn for pain, and adjust as needed. Lidocaine patch for c/o back pain. CVHypotension-resolved. Off pressors. PULMHypoxemia improving- tolerating NC. BNP 546.7. CXR shows severe vascular congestion. Lasix IV Q8 ordered per nephrology. Will repeat CXR in AM. GIAdvance diet as tolerated. General Sx consult for questionable pnemoperitoneum-no intervention required at this time. CT Abdomen shows diffuse colonic wall thickening and moderately dilated stomach-GI consult placed, patient will need upper endoscopy to evaluate gastric distention once medically stable. Dietary consult placed for poor po intake. Started on Protonix for h/o H.pylori, due to poor PO intake, will have to give IV for now. RENALBUN 19 Crea 2.1 stable. AG closed 10. Insulin gtt discontinued and started on D10 for poor po intake. Start insulin sliding scale and adjust as needed.Repleteelectrolytes as needed. [id number] 6. AG closed, insulin gtt discontinued and started on ss-adjust as needed. HEMEAnemia-H/H stable 7.8/23. Plt count 81 this AM - monitor closely, may need to hold Heparin if continues to drop. Per RN, multiple BMs with blood streak/mucus noted. Transfuse if Hgb <7. IDLeukocytosis improving WBC 13.57. Continue broad spectrum antibiotics with Vanco/Zosyn. MRSA nares positive, Blood cx negative x 48hours. MSKPT/OT to evaluate and treat when medically stable. PROPHYLAXISSCDs/heparin/ DISPOMonitor closely in the ICU. CM for discharge planning.Consultants: gastroenterology, nephrology at 1809 RPT #:[id number] OF REPORTPRProgress Wlpr6000-00-59L70:19:00G.[id number] for patient edvbYPEBPHONOLCOCE7799-90-33C97:09:[address] [facility] 2019-09-29 07:18:00 [id number] 00ENo9vUZCb+yoTarshaji uD8l2QDpPmy5JbZxLiIbx8w9sD5703-78-10H85:18:00 [facility] ([facility]ENTERNephrology Progress NoteREPORT#:[id number] REPORT STATUS: SignedDATE:09/29/19 TIME: 717 PATIENT: MAC AGUSTIN UNIT #: [id number]#: [id number] [id number]: [address] AGE: 74 SEX: F ATTEND: Joel Myers [facility] AUTHOR: Rabia Aguilar MD * ALL edits or amendments must be made on the electronic/computer document * SubjectiveChief Complaint:AMS/Lactic acidosis/AKIUnable to obtain: patient conditionComments:Patient seen and evaluated, HPI no change from initial, Alert Review of SystemsUnable to obtain due to:Dementia Objective GeneralVS/I O:Vital Signs: Date Time Temp Pulse Resp B/P B/P Pulse O2 O2 Flow FiO2 Mean Ox Delivery Rate 09/28 0200 77 23 121/64 84 100 09/28 0100 75 17 132/60 87 100 09/28 0000 36.7 09/28 0000 74 15 114/59 84 100 09/27 2300 73 16 120/59 83 100 09/27 2200 78 20 115/54 78 100 04/ 2101 94 26 105/58 75 99 04/ 2000 High flow 5.125249 nasal cannula 09/27 2000 83 23 100/57 72 100 0418 1930 36.3 09/27 1900 90 30 93/51 67 99 18 1831 88 31 98/47 58 99 /18 1801 91 26 109/51 74 100 04/18 1730 72 18 102/56 76 100 /18 1700 71 18 101/50 72 100 04/18 1630 70 13 101/55 73 100 04/18 1600 99 High flow 5.574889 nasal cannula 09/27 1600 74 15 109/58 81 100 /18 1600 36.4 100 High flow 10.872908 nasal cannula 18 1530 69 14 105/58 78 100 04/18 1500 91 28 106/54 75 100 /18 1430 80 21 95/50 66 99 04/18 1400 74 13 101/56 76 100 04/18 1330 81 19 101/53 73 100 04/18 1300 74 15 109/54 78 100 /18 1230 82 20 105/58 78 100 04/18 1200 100 High flow 5.725139 nasal cannula 09/27 1200 36.4 100 High flow 10.897531 nasal cannula 09/27 1200 87 21 105/56 76 100 04/18 1130 77 18 105/70 82 100 04/18 1100 76 20 114/53 77 100 04/18 1030 76 17 111/56 80 100 09/27 1000 68 12 92/53 69 100 09/27 0930 80 16 109/57 79 100 09/27 0900 78 15 108/56 75 100 09/27 0830 81 17 105/55 79 100 09/27 0800 High flow 10.696317 nasal cannula 09/27 0800 36.2 100 High flow 10.754465 nasal cannula 09/27 0800 36.2 100 High flow 10.329962 nasal cannula 09/27 0800 87 21 95/52 69 100 09/27 0730 87 21 93/55 72 100 24 hour I O ending at 0700: 09/28 0700 09/27 1900 Intake Total 1761.00 2341.00 Output Total 500 275 Balance 1261.00 2066.00 Intake, IV 1761.00 1841.00 Intake, Oral 500 Number 0 3 Bowel Movements Output, Urine 500 275 MedicationsActive Meds + DC'd Last 24 HrsVancomycin HCl 1,000 MG DIALYSIS-DOSE AFTER IV (CKD) Sodium Chloride 250 MLFurosemide 40 MG ONCE ONE IV (DC) Morphine Sulfate 2 MG Q4H PRN PRN IV Acetaminophen 650 MG Q4H PRN PRN PO Sodium Bicarbonate 75 ML Q10H IV (CKD) Dextrose/Sodium Chloride 1,000 MLDextrose/Water 50 ML ASDIR PRN IV Dextrose/Water 1,000 ML ASDIR IV Insulin Human Regular 100 UNIT ASDIR IV (CKD) Sodium Chloride 99 MLMagnesium Sulfate 50 ML ASDIR PRN IV Magnesium Sulfate 100 ML ASDIR PRN IV Potassium Chloride 100 ML ASDIR PRN IV Potassium Chloride 100 ML ONCE ONE IV (DC) Potassium Phosphate 15 MM ASDIR PRN IV Sodium Chloride 250 MLPotassium Chloride 100 ML ONCE ONE IV (DC) Vancomycin HCl 1,000 MG ONCE ONE IV (DC) Sodium Chloride 250 MLSodium Bicarbonate 75 ML .A73O48H IV (DC) Sodium Chloride 1,000 MLHeparin Sodium 5,000 UNIT Q12HR SUBQ Piperacillin Sod/Tazobactam Sod 3.375 GM Q12H IV Sodium Chloride 100 MLPhenylephrine HCl 30 MG ASDIR IV (CKD) Sodium Chloride 247 MLSodium Chloride 500 ML ONCE ONE IV Insulin Human Lispro 0 Q6HR SUBQ (DC) Vasopressin 20 UNIT ASDIR IV (CKD) Sodium Chloride 100 MLMiscellaneous Information 1 EACH ASDIR IV (CKD) Albumin Human 12.5 GM ASDIR PRN IV Heparin Sodium (Porcine) 1,000 UNIT ASDIR PRN DIALYSIS Mannitol 12.5 GM ASDIR PRN IV Sodium Chloride 2,000 ML ASDIR PRN IV Sodium Chloride 10 ML ASDIR PRN IV Sodium Chloride 250 ML ASDIR PRN IV Norepinephrine Bitartrate 250 ML ASDIR PRN IV Sodium Chloride 0 ASDIR PRN IV Physical ExamGeneral appearance: alert, no acute distressHead/eyes: atraumatic, normocephalicENT: normal noseNeck: supple/no meningismusCardiovascular: normal heart sounds, no rubRespiratory: aerating well, symmetric expansionAbdomen: softGenitourinary: ballard, urineExtremities: no edemaMusculoskeletal: normal inspectionNeuro/FAST FOOD ATTENDANT: altered mental statusSkin: dry ResultsFindings/Data:Laboratory Tests 09/27 09/26 09/26 09/25 09/25 1147 0956 0238 1732 1509Blood Gas Puncture Site R Rad L Rad L Rad R Fem R Fem ABG pH (7.35 - 7.45) 7.395 7.489 H 7.408 7.635 *H 7.674 *H ABG pCO2 (35 - 45 mmHg) 24.1 *L 25.6 L 24.8 *L 23.8 *L 17.1 *L ABG pO2 (80 - 100 mmHg) 136 H 67 L 55 L 52 L 86 ABG HCO3 (22.0 - 26.0 mmol/L) 14.7 L 19.6 L 15.5 L 25.3 19.9 L ABG Total CO2 15 20 16 26 20 ABG O2 Saturation (90 - 100 %) 99 95 88 L 93 99 ABG Base Excess (-4 - 4 mmol/L) -10.0 L -4.0 -9.0 L 4.0 0.0 Temperature (F) 98.6 98.0 38.0 98.6 98.6 O2 Delivery Device Cannula Cannula Cannula Cannula Cannula 09/25 1503 Blood Gas Puncture Site R Brach VBG pH (7.33 - 7.45) 7.55 H VBG pCO2 (43 - 47 mmHg) 22 L VBG pO2 (10 - 50 mmHg) 37 VBG HCO3 (22 - 27 mmol/L) 19.4 L VBG Total CO2 20 VBG O2 Sat (Calc) (60 - 80 %) 80 VBG Base Excess (-4.0 - 4.0 mmol/L) -3.0 VBG Temperature (F) 98.6 O2 Delivery Device Cannula Laboratory Tests 09/28 09/28 09/28 09/28 09/28 1225 UNK 0444 0443 0443 Chemistry Sodium (134 - 147 mEq/L) 141 Potassium (3.4 - 5.0 mEq/L) 4.5 Chloride (100 - 108 mEq/L) 104 Carbon Dioxide (21 - 33 mEq/L) 31 Anion Gap (0 - 20) 11 BUN (7 - 18 mg/dL) 19 H Creatinine (0.6 - 1.3 mg/dL) 2.1 H Glomerular Filtr Rate (70 - 80) 23.2 L Glucose (70 - 110 mg/dL) 156 H Hemoglobin A1c (4.8 - 6.0 %A1C) 6.0 Lactic Acid (0.4 - 1.9 mmol/l) 2.1 H 4.0 H Calcium (8.0 - 10.5 mg/dL) 7.3 L Phosphorus (2.5 - 4.9 MG/DL) 3.1 Magnesium (1.8 - 2.4 mg/dL) 1.90 B-Natriuretic Peptide (0 - 100 PG/ML) 546.7 H 09/28 09/28 09/27 09/27 09/27 0443 0136 2314 2312 2312 Chemistry Sodium (134 - 147 mEq/L) 142 143 Potassium (3.4 - 5.0 mEq/L) 2.7 *L 3.5 Chloride (100 - 108 mEq/L) 103 104 Carbon Dioxide (21 - 33 mEq/L) 32 30 Anion Gap (0 - 20) 10 13 BUN (7 - 18 mg/dL) 19 H 20 H Creatinine (0.6 - 1.3 mg/dL) 2.2 H 2.1 H Glomerular Filtr Rate (70 - 80) 21.9 L 23.2 L Glucose (70 - 110 mg/dL) 109 128 H POC Glucose (70 - 110 MG/DL) 134 H 138 H Calcium (8.0 - 10.5 mg/dL) 7.2 L 7.6 L Phosphorus (2.5 - 4.9 MG/DL) 1.4 L 1.9 L Magnesium (1.8 - 2.4 mg/dL) 2.00 2.00 09/27 09/27 09/27 09/27 09/27 2044 1842 1804 1700 1502 Chemistry Sodium (134 - 147 mEq/L) 142 Potassium (3.4 - 5.0 mEq/L) 3.3 L Chloride (100 - 108 mEq/L) 104 Carbon Dioxide (21 - 33 mEq/L) 22 Anion Gap (0 - 20) 19 BUN (7 - 18 mg/dL) 20 H Creatinine (0.6 - 1.3 mg/dL) 1.9 H Glomerular Filtr Rate (70 - 80) 26.0 L Glucose (70 - 110 mg/dL) 153 H POC Glucose (70 - 110 MG/DL) 130 H 151 H 152 H 123 H Calcium (8.0 - 10.5 mg/dL) 7.1 L Phosphorus (2.5 - 4.9 MG/DL) 2.2 L Magnesium (1.8 - 2.4 mg/dL) 2.10 09/27 09/27 09/27 09/27 09/27 1407 1230 1044 1044 0438 Chemistry Sodium (134 - 147 mEq/L) 143 Potassium (3.4 - 5.0 mEq/L) 3.2 L Chloride (100 - 108 mEq/L) 104 Carbon Dioxide (21 - 33 mEq/L) 18 L Anion Gap (0 - 20) 24 H BUN (7 - 18 mg/dL) 20 H Creatinine (0.6 - 1.3 mg/dL) 1.5 H Glomerular Filtr Rate (70 - 80) 34.1 L Glucose (70 - 110 mg/dL) 159 H POC Glucose (70 - 110 MG/DL) 138 H Lactic Acid (0.4 - 1.9 mmol/L) 1.3 1.2 Calcium (8.0 - 10.5 mg/dL) 7.4 L Magnesium (1.8 - 2.4 mg/dL) 2.30 09/27 09/27 09/26 09/26 09/26 0438 0011 1816 1802 1515 Chemistry Sodium (134 - 147 mEq/L) 144 Potassium (3.4 - 5.0 mEq/L) 3.3 L Chloride (100 - 108 mEq/L) 104 Carbon Dioxide (21 - 33 mEq/L) 16 L Anion Gap (0 - 20) 27 H BUN (7 - 18 mg/dL) 14 Creatinine (0.6 - 1.3 mg/dL) 1.2 Glomerular Filtr Rate (70 - 80) 44.2 L Glucose (70 - 110 mg/dL) 167 H POC Glucose (70 - 110 MG/DL) 169 H 129 H Lactic Acid (0.4 - 1.9 mmol/l) 1.6 2.4 H Calcium (8.0 - 10.5 mg/dL) 7.4 L Phosphorus (2.5 - 4.9 MG/DL) 2.9 Magnesium (1.8 - 2.4 mg/dL) 2.30 09/26 09/26 09/26 09/26 09/26 1515 1515 1210 0918 0544 Chemistry Sodium (134 - 147 mEq/L) 143 Potassium (3.4 - 5.0 mEq/L) 3.4 Chloride (100 - 108 mEq/L) 104 Carbon Dioxide (21 - 33 mEq/L) 23 Anion Gap (0 - 20) 19 BUN (7 - 18 mg/dL) 5 L Creatinine (0.6 - 1.3 mg/dL) 0.6 Glomerular Filtr Rate (70 - 80) 98.3 H Glucose (70 - 110 mg/dL) 139 H POC Glucose (70 - 110 MG/DL) 158 H 146 H Lactic Acid (0.4 - 1.9 mmol/l) 2.0 H Calcium (8.0 - 10.5 mg/dL) 7.1 L Phosphorus (2.5 - 4.9 MG/DL) 2.6 Magnesium (1.8 - 2.4 mg/dL) 1.60 L B-Natriuretic Peptide (0 - 100 PG/ML) 1269.2 H 09/26 09/26 09/26 09/26 09/26 0515 0500 0115 0115 0013Chemistry Sodium (134 - 147 mEq/L) 143 143 Potassium (3.4 - 5.0 mEq/L) 3.5 3.6 Chloride (100 - 108 mEq/L) 102 101 Carbon Dioxide (21 - 33 mEq/L) 15 L 20 L Anion Gap (0 - 20) 30 H 26 H BUN (7 - 18 mg/dL) 16 13 Creatinine (0.6 - 1.3 mg/dL) 1.2 1.1 Glomerular Filtr Rate (70 - 80) 44.2 L 48.8 L Glucose (70 - 110 mg/dL) 137 H 119 H POC Glucose (70 - 110 MG/DL) 117 H Lactic Acid (0.4 - 1.9 mmol/L) 3.5 H 6.2 *H Calcium (8.0 - 10.5 mg/dL) 6.7 L 6.9 L Ionized Calcium Jefry (1.12 - 1.32 0.99 L 0.96 LMMOL/L) Phosphorus (2.5 - 4.9 MG/DL) 3.9 2.3 L Magnesium (1.8 - 2.4 mg/dL) 2.50 H 2.50 H 09/25 09/25 09/25 09/25 09/25 2145 2145 2145 2145 1827Chemistry Sodium (134 - 147 mEq/L) 142 Potassium (3.4 - 5.0 mEq/L) 3.7 Chloride (100 - 108 mEq/L) 101 Carbon Dioxide (21 - 33 mEq/L) 21 Anion Gap (0 - 20) 24 H BUN (7 - 18 mg/dL) 10 Creatinine (0.6 - 1.3 mg/dL) 1.0 Glomerular Filtr Rate (70 - 80) 54.5 L Glucose (70 - 110 mg/dL) 103 POC Glucose (70 - 110 MG/DL) 126 H Lactic Acid (0.4 - 1.9 mmol/l) 7.8 *H Calcium (8.0 - 10.5 mg/dL) 7.0 L Ionized Calcium Jefry (1.12 - 1.32 0.96 LMMOL/L) Phosphorus (2.5 - 4.9 MG/DL) 1.6 L Magnesium (1.8 - 2.4 mg/dL) 2.40 Troponin I (0.000 - 0.045 ng/mL) 0.284 *H LDL Cholesterol Measurd (0 - 100 67mg/dL) 09/25 09/25 1655 1655 Chemistry Sodium (134 - 147 mEq/L) 141 Potassium (3.4 - 5.0 mEq/L) 3.9 Chloride (100 - 108 mEq/L) 100 Carbon Dioxide (21 - 33 mEq/L) 25 Anion Gap (0 - 20) 20 BUN (7 - 18 mg/dL) 14 Creatinine (0.6 - 1.3 mg/dL) 1.1 Glomerular Filtr Rate (70 - 80) 48.8 L Glucose (70 - 110 mg/dL) 137 H Lactic Acid (0.4 - 1.9 mmol/L) 9.2 *H Calcium (8.0 - 10.5 mg/dL) 7.6 L Ionized Calcium Jefry (1.12 - 1.32 MMOL/L) 0.98 L Phosphorus (2.5 - 4.9 MG/DL) 1.2 L Magnesium (1.8 - 2.4 mg/dL) 1.50 L Laboratory Tests 09/28 09/27 0443 0438 Hematology WBC (4.5 - 11.0 x10 3/uL) 13.57 H 15.02 H RBC (3.54 - 5.02 x10 6/uL) 2.58 L 2.79 L Hgb (11.0 - 15.0 g/dL) 7.8 L 8.4 L Hct (33.0 - 45.0 %) 23.0 L 26.0 L MCV (81.0 - 99.0 fL) 89.1 93.2 MCH (27.0 - 33.0 pg) 30.2 30.1 MCHC (33.0 - 37.0 g/dL) 33.9 32.3 L RDW (11.5 - 14.5 %) 14.0 14.1 Plt Count (150 - 400 x10 3/uL) 81 L 99 L MPV (7.0 - 9.0 fL) 12.0 H 11.7 H Neut % (Auto) (56.0 - 77.0 %) 86.6 H 85.4 H Lymph % (Auto) (14.0 - 32.0 %) 7.1 L 6.5 L [place] % (Auto) (4.8 - 9.0 %) 4.6 L 7.5 Eos % (Auto) (0.3 - 3.7 %) 0.1 L 0.1 L Baso % (Auto) (0.0 - 2.0 %) 0.1 0.1 Neut # (Auto) (2.0 - 7.6 x10 3/uL) 11.76 H 12.84 H Lymph # (Auto) (1.0 - 3.8 x10 3/uL) 0.96 L 0.97 L [place] # (Auto) (0.1 - 0.8 x10 3/uL) 0.62 1.12 H Eos # (Auto) (0.0 - 0.2 x10 3/uL) 0.01 0.02 Baso # (Auto) (0.0 - 0.2 x10 3/uL) 0.02 0.01 Abs Immat Gran (auto) (0.00 - 0.03 x10 3/uL) 0.20 H 0.06 H Add Manual Diff NO NO Immature Gran % (0.0 - 2.0 %) 1.5 0.4 Nucleated RBC % (0 - 0 %) 0.0 0.0 Nucleated RBCs # (Man) (0.0 - 0.1 x10 3/uL) 0.00 0.00 Platelet Estimate (ADEQUATE THOUSAND) 80-100 Plt Morphology Comment LARGE PLATELETS 09/26 09/26 1515 0500 Hematology WBC (4.5 - 11.0 x10 3/uL) 18.06 H 19.78 H RBC (3.54 - 5.02 x10 6/uL) 3.10 L 3.17 L Hgb (11.0 - 15.0 g/dL) 9.5 L 9.7 L Hct (33.0 - 45.0 %) 27.6 L 28.6 L MCV (81.0 - 99.0 fL) 89.0 90.2 MCH (27.0 - 33.0 pg) 30.6 30.6 MCHC (33.0 - 37.0 g/dL) 34.4 33.9 RDW (11.5 - 14.5 %) 13.5 13.6 Plt Count (150 - 400 x10 3/uL) 131 L 156 MPV (7.0 - 9.0 fL) 11.4 H 11.7 H Neut % (Auto) (56.0 - 77.0 %) 84.8 H Lymph % (Auto) (14.0 - 32.0 %) 4.9 L [place] % (Auto) (4.8 - 9.0 %) 9.3 H Eos % (Auto) (0.3 - 3.7 %) 0.0 L Baso % (Auto) (0.0 - 2.0 %) 0.1 Neut # (Auto) (2.0 - 7.6 x10 3/uL) 15.30 H Lymph # (Auto) (1.0 - 3.8 x10 3/uL) 0.89 L [place] # (Auto) (0.1 - 0.8 x10 3/uL) 1.68 H Eos # (Auto) (0.0 - 0.2 x10 3/uL) 0.00 Baso # (Auto) (0.0 - 0.2 x10 3/uL) 0.02 Abs Immat Gran (auto) (0.00 - 0.03 x10 3/uL) 0.17 H Add Manual Diff NO YES Immature Gran % (0.0 - 2.0 %) 0.9 Seg Neutrophils % (37 - 69 %) 87 H Lymphocytes % (Manual) (23 - 55 %) 4 L Monocytes % (Manual) (0 - 10 %) 8 Nucleated RBC % (0 - 0 %) 0.2 H 2 Myelocytes (0.0 - 0.0 %) 1 H Nucleated RBCs # (Man) (0.0 - 0.1 x10 3/uL) 0.04 Platelet Estimate (ADEQUATE THOUSAND) Adequate Plt Morphology Comment LARGE PLATELETS Polychromasia SLIGHT Anisocytosis NORMAL 09/26 09/25 0115 1655 Hematology WBC (4.5 - 11.0 x10 3/uL) 21.56 H 21.91 H RBC (3.54 - 5.02 x10 6/uL) 3.14 L 3.45 L Hgb (11.0 - 15.0 g/dL) 9.5 L 10.4 L Hct (33.0 - 45.0 %) 28.3 L 30.2 L MCV (81.0 - 99.0 fL) 90.1 87.5 MCH (27.0 - 33.0 pg) 30.3 30.1 MCHC (33.0 - 37.0 g/dL) 33.6 34.4 RDW (11.5 - 14.5 %) 13.4 13.3 Plt Count (150 - 400 x10 3/uL) 159 214 MPV (7.0 - 9.0 fL) 11.7 H 12.2 H Neut % (Auto) (56.0 - 77.0 %) 88.6 H 90.8 H Lymph % (Auto) (14.0 - 32.0 %) 2.8 L 4.8 L [place] % (Auto) (4.8 - 9.0 %) 6.5 3.2 L Eos % (Auto) (0.3 - 3.7 %) 1.1 0.1 L Baso % (Auto) (0.0 - 2.0 %) 0.2 0.1 Neut # (Auto) (2.0 - 7.6 x10 3/uL) 19.09 H 19.89 H Lymph # (Auto) (1.0 - 3.8 x10 3/uL) 0.61 L 1.06 [place] # (Auto) (0.1 - 0.8 x10 3/uL) 1.41 H 0.70 Eos # (Auto) (0.0 - 0.2 x10 3/uL) 0.23 H 0.02 Baso # (Auto) (0.0 - 0.2 x10 3/uL) 0.04 0.03 Abs Immat Gran (auto) (0.00 - 0.03 x10 3/uL) 0.18 H 0.21 H Add Manual Diff NO NO Immature Gran % (0.0 - 2.0 %) 0.8 1.0 Nucleated RBC % (0 - 0 %) 0.0 0.0 Nucleated RBCs # (Man) (0.0 - 0.1 x10 3/uL) 0.00 0.00 Laboratory Tests 09/28 0443 Toxicology Acetone, Quant (NEG - <20 mg/dL) NEGATIVE - <20mg/dL 09/27 09/27 1044 0438 Toxicology Random Vancomycin (mcg/mL) 12.8 Acetone, Quant (NEG - <20 mg/dL) Large - 80-100 mg/dL Laboratory Tests 09/27 1044 Urines Urine Color (YEL/STRAW) YELLOW Urine Appearance (CLEAR) SL CLOUDY Urine pH (5.0 - 7.0) 5.0 Ur Specific [place] (1.005 - 1.030) 1.006 Urine Protein (NEGATIVE) 1+ H Urine Glucose (UA) (NEGATIVE) 3+ H Urine Ketones (NEGATIVE) 2+ H Urine Blood (NEGATIVE) 3+ H Urine Nitrite (NEGATIVE) NEGATIVE Urine Bilirubin (NEGATIVE) NEGATIVE Urine Urobilinogen (0.2 - 1.0 mg/dL) 0.2 Ur Leukocyte Esterase (NEGATIVE) 2+ H Urine RBC (0 - 3 RBC/HPF) 21-50 Urine WBC (0 - 3 WBC/HPF) 21-50 H Ur Squamous Epith Cells (NONE SEEN /HPF) 0-5 Ur Transition Epith Cell (NONE SEEN /HPF) TRACE Amorphous Sediment (NONE /HPF) 1+ H Urine Bacteria (NONE SEEN /HPF) 1+ H Hyaline Casts (NONE SEEN /LPF) 3-5 Urine Mucus (NONE SEEN /LPF) TRACE Recent Impressions:RADIOLOGY - XR CHEST 1 V 09/28 0541 Report Impression - Status: SIGNED Entered: 09/29/2019 0712 IMPRESSION:1. Severe pulmonary vascular congestion and or pulmonary edema withdeveloping moderate bilateral layering pleural effusions.2. Developing dense left retrocardiac opacity, probably representingatelectasis or early consolidation.3. Enlarged cardiac silhouette. SL: [id number] By: [email or web address] - Scott Duran M.D. Laboratory Tests 09/27 1147 Blood Gas Puncture Site R Rad ABG pH (7.35 - 7.45) 7.395 ABG pCO2 (35 - 45 mmHg) 24.1 *L ABG pO2 (80 - 100 mmHg) 136 H ABG HCO3 (22.0 - 26.0 mmol/L) 14.7 L ABG Total CO2 15 ABG O2 Saturation (90 - 100 %) 99 ABG Base Excess (-4 - 4 mmol/L) -10.0 L Temperature (F) 98.6 O2 Delivery Device Cannula Laboratory Tests 09/28 09/28 09/28 09/28 09/28 0444 0443 0443 0443 0136 Chemistry Sodium (134 - 147 mEq/L) 142 Potassium (3.4 - 5.0 mEq/L) 2.7 *L Chloride (100 - 108 mEq/L) 103 Carbon Dioxide (21 - 33 mEq/L) 32 Anion Gap (0 - 20) 10 BUN (7 - 18 mg/dL) 19 H Creatinine (0.6 - 1.3 mg/dL) 2.2 H Glomerular Filtr Rate (70 - 80) 21.9 L Glucose (70 - 110 mg/dL) 109 POC Glucose (70 - 110 MG/DL) 134 H Hemoglobin A1c (4.8 - 6.0 %A1C) 6.0 Lactic Acid (0.4 - 1.9 mmol/L) 4.0 H Calcium (8.0 - 10.5 mg/dL) 7.2 L Phosphorus (2.5 - 4.9 MG/DL) 1.4 L Magnesium (1.8 - 2.4 mg/dL) 2.00 B-Natriuretic Peptide (0 - 100 PG/ML) 546.7 H 09/27 09/27 09/27 09/27 09/27 2314 2312 2312 2044 1842 Chemistry Sodium (134 - 147 mEq/L) 143 Potassium (3.4 - 5.0 mEq/L) 3.5 Chloride (100 - 108 mEq/L) 104 Carbon Dioxide (21 - 33 mEq/L) 30 Anion Gap (0 - 20) 13 BUN (7 - 18 mg/dL) 20 H Creatinine (0.6 - 1.3 mg/dL) 2.1 H Glomerular Filtr Rate (70 - 80) 23.2 L Glucose (70 - 110 mg/dL) 128 H POC Glucose (70 - 110 MG/DL) 138 H 130 H 151 H Calcium (8.0 - 10.5 mg/dL) 7.6 L Phosphorus (2.5 - 4.9 MG/DL) 1.9 L Magnesium (1.8 - 2.4 mg/dL) 2.00 09/27 09/27 09/27 09/27 09/27 1804 1700 1502 1407 1230 Chemistry Sodium (134 - 147 mEq/L) 142 Potassium (3.4 - 5.0 mEq/L) 3.3 L Chloride (100 - 108 mEq/L) 104 Carbon Dioxide (21 - 33 mEq/L) 22 Anion Gap (0 - 20) 19 BUN (7 - 18 mg/dL) 20 H Creatinine (0.6 - 1.3 mg/dL) 1.9 H Glomerular Filtr Rate (70 - 80) 26.0 L Glucose (70 - 110 mg/dL) 153 H POC Glucose (70 - 110 MG/DL) 152 H 123 H 138 H Calcium (8.0 - 10.5 mg/dL) 7.1 L Phosphorus (2.5 - 4.9 MG/DL) 2.2 L Magnesium (1.8 - 2.4 mg/dL) 2.10 2.30 09/27 09/27 1044 1044 Chemistry Sodium (134 - 147 mEq/L) 143 Potassium (3.4 - 5.0 mEq/L) 3.2 L Chloride (100 - 108 mEq/L) 104 Carbon Dioxide (21 - 33 mEq/L) 18 L Anion Gap (0 - 20) 24 H BUN (7 - 18 mg/dL) 20 H Creatinine (0.6 - 1.3 mg/dL) 1.5 H Glomerular Filtr Rate (70 - 80) 34.1 L Glucose (70 - 110 mg/dL) 159 H Lactic Acid (0.4 - 1.9 mmol/L) 1.3 Calcium (8.0 - 10.5 mg/dL) 7.4 L Laboratory Tests 09/28 0443 Hematology WBC (4.5 - 11.0 x10 3/uL) 13.57 H RBC (3.54 - 5.02 x10 6/uL) 2.58 L Hgb (11.0 - 15.0 g/dL) 7.8 L Hct (33.0 - 45.0 %) 23.0 L MCV (81.0 - 99.0 fL) 89.1 MCH (27.0 - 33.0 pg) 30.2 MCHC (33.0 - 37.0 g/dL) 33.9 RDW (11.5 - 14.5 %) 14.0 Plt Count (150 - 400 x10 3/uL) 81 L MPV (7.0 - 9.0 fL) 12.0 H Neut % (Auto) (56.0 - 77.0 %) 86.6 H Lymph % (Auto) (14.0 - 32.0 %) 7.1 L [place] % (Auto) (4.8 - 9.0 %) 4.6 L Eos % (Auto) (0.3 - 3.7 %) 0.1 L Baso % (Auto) (0.0 - 2.0 %) 0.1 Neut # (Auto) (2.0 - 7.6 x10 3/uL) 11.76 H Lymph # (Auto) (1.0 - 3.8 x10 3/uL) 0.96 L [place] # (Auto) (0.1 - 0.8 x10 3/uL) 0.62 Eos # (Auto) (0.0 - 0.2 x10 3/uL) 0.01 Baso # (Auto) (0.0 - 0.2 x10 3/uL) 0.02 Abs Immat Gran (auto) (0.00 - 0.03 x10 3/uL) 0.20 H Add Manual Diff NO Immature Gran % (0.0 - 2.0 %) 1.5 Nucleated RBC % (0 - 0 %) 0.0 Nucleated RBCs # (Man) (0.0 - 0.1 x10 3/uL) 0.00 Laboratory Tests 09/28 0443 Toxicology Acetone, Quant (NEG - <20 mg/dL) NEGATIVE - <20mg/dL 09/27 1044 Toxicology Acetone, Quant (NEG - <20 mg/dL) Large - 80-100 mg/dL Laboratory Tests 09/27 1044 Urines Urine Color (YEL/STRAW) YELLOW Urine Appearance (CLEAR) SL CLOUDY Urine pH (5.0 - 7.0) 5.0 Ur Specific [place] (1.005 - 1.030) 1.006 Urine Protein (NEGATIVE) 1+ H Urine Glucose (UA) (NEGATIVE) 3+ H Urine Ketones (NEGATIVE) 2+ H Urine Blood (NEGATIVE) 3+ H Urine Nitrite (NEGATIVE) NEGATIVE Urine Bilirubin (NEGATIVE) NEGATIVE Urine Urobilinogen (0.2 - 1.0 mg/dL) 0.2 Ur Leukocyte Esterase (NEGATIVE) 2+ H Urine RBC (0 - 3 RBC/HPF) 21-50 Urine WBC (0 - 3 WBC/HPF) 21-50 H Ur Squamous Epith Cells (NONE SEEN /HPF) 0-5 Ur Transition Epith Cell (NONE SEEN /HPF) TRACE Amorphous Sediment (NONE /HPF) 1+ H Urine Bacteria (NONE SEEN /HPF) 1+ H Hyaline Casts (NONE SEEN /LPF) 3-5 Urine Mucus (NONE SEEN /LPF) TRACE Diagnosis, Assessment PlanFree Text A P:Patient seen and evaluated, discussed with care team, images and laboratories reviewed.History of dementiaHistory of rheumatoid arthritisHistory of frequent fallsHistory of frequent UTIsHistory of hypertension: Currently hypotensiveHypokalemia: We will supplementSevere hypomagnesemia we will supplementHypocalcemia: We will supplementHypoalbuminemiaSevere lactic acidosis: Etiology, could be related to septic shock, however source is unclear, rule out ischemic bowel, Zosyn, will need to review her medications if patient has been on metformin, lactic acidosis due to metformin in the setting of acute renal failure is a possibility and will do hemodialysis in the setting.Patient has been taking Metformin 1000 BID, kenneth has lactic acidosis that is induced by Metformin, discussed with deysi and ICC/Primary team will proceed with HD09/27/2019 mental status a lot better, hemodynamically more stable, pressors being weaned off, received 6 hours of hemodialysis yesterday, her last set of blood gas showed a pH of 7.40, PCO2 25, PO2 55, lactic acid 6.2 improving, sodium is 143 potassium 3.6 CO2 20 chloride 101 BUN 13 creatinine 1.1, hemoglobin this morning 9.7, white blood count 19.78 trending down, platelet 156, her clinical picture is consistent with metformin induced lactic acidosis, will do another session of hemodialysis, 4 hours, potassium 3.5, no ultrafiltration, will give 20 mmol of potassium phosphate and expectation of hypophosphatemia during hemodialysis. katie and evaluated during HD, discussed with RN and HD nurse09/28/2019 laboratories from this morning showed sodium 144, potassium 3.3 we will give KCl 20 mEq IV x1, chloride 104, bicarbonate 16, creatinine 1.2, lacticacid 1.2, hemoglobin 8.4, white blood count 15.2, blood culture still negative, anion gap today is 24 with a normal lactic acid etiology unclear will repeat BMP, repeat lactic acid and order serum acetone and do urinalysis to check for urine ketones, also will do a blood gas. Ketones came back as large, This is kenneth starvation ketoacidosis that has been exacerbated by gluconeogenesis inhibition by Metformin and has been reported in the literature, will start Glucose and insulin drip09/29/2019 laboratories from this morning showed sodium 142, potassium 2.7 we will give KCl 20 mEq IV x2, bicarbonate 32 with a chloride of 103 with disappearance of the anion gap correction of anion gap, will DC IV fluid with sodium bicarbonate, will DC insulin drip, changed to insulin sliding scale, start D10 at 30 cc/h since patient is noted nauseated, her chest x-ray showed pulmonary edema, will give IV Lasix 60 mg every 8 hours, give a dose of metolazone, her phosphorus 1.4, will give potassium phosphate 15 mmol IV x1, recheck lab in the afternoon, her lactic acid is 4 up some, not clear why is it elevated, we will recheck in the afternoon, her creatinine is 2.2, not sure whather baseline creatinine, her creatinine is relatively stable since yesterday, will monitor closely, hemoglobin is 7.8, white blood count 13.57 improving. at 1335 RPT #:[id number] OF REPORTPRProgress [id number].[id number] for patient [id number]:35:32 HCACL 2019-09-28 20:32:00 [id number] gL/Yxw+[id number]+[id number] [place] [id number] PATIENT NAME: MAC AGUSTIN ADMIT DATE: 09/26/19ACCOUNT NO: [id number] ROOM NO: [id number] AGE: 74 REPORT TYPE: CONSULTATION REPORT SEX: F ADMITTING PHYSICIAN:Joel Myers MD ATTENDING PHYSICIAN:Joel Myers MD CONSULTATION DATE: 09/28/2019 CONSULTING PHYSICIAN: Cam Delgadillo MD GASTROENTEROLOGY CONSULTATION NOTE CONSULTING PHYSICIAN: Joel Myers MD REASON FOR CONSULTATION: Abnormal CT scan. HISTORY OF PRESENT ILLNESS: A 74-year-old female with advanced dementia,correction resident, type 2 diabetes, hypertension, and chronic pain, who gottransferred from correction because she had not been eating or drinking wellfor last few days. In the Emergency Room, a workup revealed severe metabolicacidosis, renal failure, electrolyte disbalance, lactic acidosis, hypothermia.She got admitted in the ICU for further evaluation and management. In the ICU,she is also getting temporary dialysis. Currently, on clear liquid diet.Having liquidy greenish bowel movements. CT scan of the abdomen and pelviswithout contrast was performed for evaluation of possible underlying sepsis,possible pneumoperitoneum based upon prior chest x-rays. CT, however, did notreveal any pneumoperitoneum, but did show some diffuse mild colonic wallthickening that could be due to underlying colitis versus under distention. Italso showed a cologastric wall thickening, dilated stomach. I cannot derive anyhistory from the patient. Most of my information is derived from the medicalchart. REVIEW OF SYSTEMS: Unobtainable. PAST MEDICAL HISTORY: Rheumatoid arthritis, Alzheimer's dementia; type 2diabetes, hypertension, chronic pain syndrome, recurrent UTI, incontinentbladder, migraine, frequent falls. PAST SURGICAL HISTORY: Not documented and it is also noncontributory. FAMILY HISTORY: Noncontributory. SOCIAL HISTORY: A [facility] resident. No smoking, alcohol, or any illicitdrug use. ALLERGIES: PENICILLAMINE. HOME MEDICATIONS: Glucophage, Seroquel, Tylenol, BuSpar, Aricept. PATIENT NAME: MAC AGUSTIN INPATIENT MEDICATIONS: List is reviewed. The patient is getting intravenousvancomycin, intravenous piperacillin/tazobactam along with other medications. PHYSICAL EXAMINATION:VITAL SIGNS: Temperature 97.3, pulse 88, respirations 26 to 31, blood [id number]/47 to 109/51, oxygen saturation 99% on nasal cannula.GENERAL: Awake, but not oriented to time or place.HEENT: Oral mucosa is moist. Anicteric sclerae.CARDIOVASCULAR: S1, S2 regular.LUNGS: Bilaterally grossly clear, decreased breath sound at bases.ABDOMEN: Soft, nondistended, and nontender. No palpable mass or hernia. Bowelsounds present.EXTREMITIES: Warm. Trace leg edema. LABORATORY DATA: Sodium 142, potassium 3.3, chloride 104, bicarb 22, BUN 20,creatinine 1.9, and glucose is 153. Phosphorus is low to 2.2, magnesium 2.10.Lactic acid was 14.8, has trended down to 1.3 now. Urinalysis showed wbc's morethan more than 50. WBC 15.02, which is down from 18.06, hemoglobin 8.4,hematocrit 26.2, MCV 93.1, platelet count 99. Blood culture, no growth after 48hours. DIAGNOSTIC DATA: CT scan of the abdomen and pelvis without contrast showed anonspecific nonobstructive bowel gas pattern associated with mild diffusecolonic wall thickening either related to under distention or nonspecificcolitis. Mild submucosal fat seen in the colon, suggests: 1. colonic inflammatory changes. Mild sigmoid diverticulosis. 2. Moderately dilated stomach with areas of asymmetric wall thickening in the antrum and gastric curvature that may represent gastritis or underlying neoplasm. Followup with upper endoscopy will be helpful. Additionally, a radionuclide gastric emptying study may be helpful if gastroparesis is suspectedclinically.3. Mild left renal cortical atrophy associated with small mildly complex cyst.Further evaluation may be obtained with a renal ultrasound.4. Tiny focus of gas in the urinary bladder may represent recentcatheterization or fistula with bowel.5. Mild diffuse anasarca.6. Normal-sized heart associated with moderate coronary artery calcification.7. Mild hyperinflation associated with subsegmental atelectasis and scarring inboth lungs, greatest in the lung bases.8. 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 Mild soft tissue gas in the right anterior abdominal and pelvic wall, likelyrelated to recent medical injection.10. Postoperative changes of cholecystectomy. IMPRESSION: A 74-year-old female with a host of comorbidities, especiallyadvanced dementia, presented with failure to thrive kind of situation, labs weresignificantly abnormal with electrolyte disbalance, acute renal failure,metabolic acidosis and underlying sepsis from urinary tract infection. UTI isbeing treated with IV antibiotic. She is responding. The CT finding of colonicwall thickening as well as gastric distention with gastric wall thickening is anincidental finding. PATIENT NAME: MAC AGUSTIN PLAN:1. Colonic wall thickening is not concerning. This diffuse colonic wall edemacould be due to underlying sepsis and hypoalbuminemia. This does not warrantany further investigation at this time. It seems to be self-limiting.2. Gastric distention, gastric wall thickening certainly needs furtherevaluation with direct visualization. Therefore, upper endoscopy should beconsidered when the patient is medically stable and has recovered well from hercurrent acute illness. We will continue to monitor her clinically. I thank Dr. Myers for allowing me to participate in the care of this patient. Dictated By: Cam Delgadillo MD WT: CON:GERICA/MALIK./NTSDD: 09/28/2019 20:32:10DT: 09/28/2019 21:13:23Conf#: [id number]/DID#: [id number] Authenticated and Edited by Cam Delgadillo MD On 09/30/19 11:28:58 PM at 2332 PATIENT NAME: MAC AGUSTIN :13:00G.[id number] for patient [id number]:32:19 HCACL 2019-09-28 14:03:00 [id number]/cuRuWpmpvokN8gyB 2ZtPZNTAhb6URYUHh +jzfKmDRqvNAyxHvOk7IfNyehz6577-20-71D21:03:00 [facility]ospital[facility] Progress NoteREPORT#:[id number] REPORT STATUS: SignedDATE:09/28/19 TIME: 1403 PATIENT: MAC AGUSTIN UNIT #: [id number]#: [id number] [address] AGE: 74 SEX: F ATTEND: Joel Myers [facility] AUTHOR: Marisabel Chu DO * ALL edits or amendments must be made on the electronic/computer document * SubjectiveChief Complaint:Nurse notes mucus/blood tinged BM this am. On less oxygen today. Resting comfortably. Review of SystemsUnable to obtain due to:dementia, only says "no" Objective GeneralVS/I O:Vital Signs: Date Time Temp Pulse Resp B/P B/P Pulse O2 O2 Flow FiO2 Mean Ox Delivery Rate 09/27 1200 87 21 105/56 76 100 09/27 1130 77 18 105/70 82 100 09/27 1100 76 20 114/53 77 100 09/27 1030 76 17 111/56 80 100 09/27 1000 68 12 92/53 69 100 09/27 0930 80 16 109/57 79 100 09/27 0900 78 15 108/56 75 100 09/27 0830 81 17 105/55 79 100 09/27 0800 97.1 100 High flow 10.768229 nasal cannula 09/27 0800 87 21 95/52 69 100 04/18 0730 87 21 93/55 72 100 04/18 0715 83 18 94/52 71 98 04/18 0700 140 16 106/56 75 95 04/18 0645 101 18 111/53 75 96 04/18 0630 83 17 99/56 71 95 04/18 0615 130 25 99/53 72 96 04/18 0600 94 19 97/55 73 96 04/18 0500 76 15 103/53 75 100 04/18 0401 121 20 119/56 80 99 04/18 0400 96.9 04/18 0345 84 16 98/53 69 100 04/18 0330 79 16 87/54 67 98 04/18 0300 79 16 100/53 75 98 04/18 0230 79 17 105/51 74 98 /18 0200 80 15 109/56 80 98 04/18 0130 76 19 94/53 69 98 04/18 0100 76 16 113/56 81 99 /18 0030 128 17 91/50 61 99 / 0000 97.9 04/ 0000 79 18 107/53 77 99 09/26 2330 77 19 106/53 76 100 / 2300 78 17 113/51 74 100 / 2230 75 16 101/53 74 100 / 2200 81 16 102/54 74 100 / 2130 83 16 95/55 68 100 / 2100 78 16 112/57 77 99 / 2030 73 18 89/51 64 97 09/27 1999 97.7 09/27 1999 High flow 10.317782 nasal cannula 09/26 2000 77 16 104/57 76 99 / 1930 75 14 101/52 73 100 / 1920 100 High flow 10.821824 nasal cannula 09/26 1900 79 17 106/51 74 100 / 1845 72 14 85/51 64 99 / 1830 72 16 88/51 65 100 / 1815 75 16 100 04/17 1814 86/41 59 09/26 1808 77 16 91/53 70 100 / 1806 81 18 102/51 74 91 / 1800 79 17 104/52 74 100 09/26 1745 79 17 97/52 70 100 09/26 1730 83 17 88/54 65 100 09/26 1715 82 16 100 09/26 1714 98/54 72 09/26 1700 85 20 95/50 70 100 09/26 1645 91 26 93 09/26 1644 103/49 71 09/26 1631 116/55 76 09/26 1630 86 33 83 09/26 1615 81 18 100 09/26 1614 105/57 77 09/26 1600 97.5 High flow 10.748837 nasal cannula 09/26 1600 86 19 98/56 71 100 09/26 1545 79 17 100 09/26 1544 69 09/26 1544 92/48 09/26 1530 81 17 127/57 82 100 09/26 1516 108/51 74 09/26 1515 84 19 91 09/26 1500 92 24 111/57 65 77 09/26 1446 87 21 115/56 80 99 09/26 1444 88 26 128/60 87 93 09/26 1430 81 21 119/57 82 100 09/26 1418 83 22 102/52 72 85 09/26 1416 81 21 99/51 71 100 09/26 1414 87 27 81 96 24 hour I O ending at 0700: 09/27 0700 09/26 1900 Intake Total 1195.00 1108.00 Output Total 200 170 Balance 995.00 938.00 Intake, IV 1195.00 1058.00 Intake, Oral 50 Number 0 1 Bowel Movements Output, 0 Hemodialysis Output, Urine 200 170 Patient 63.4 kg Weight Patient Weight Weight (lb): 139Weight (oz): 12.37Weight (kg): 63.400 Medications:Active Meds + DC'd Last 24 HrsVancomycin HCl 1,000 MG DIALYSIS-DOSE AFTER IV (CKD) Sodium Chloride 250 MLFurosemide 40 MG ONCE ONE IV (UNV) Morphine Sulfate 2 MG Q4H PRN PRN IV (UNV) Acetaminophen 650 MG Q4H PRN PRN PO Sodium Bicarbonate 75 ML Q10H IV (CKD) Dextrose/Sodium Chloride 1,000 MLDextrose/Water 50 ML ASDIR PRN IV Dextrose/Water 1,000 ML ASDIR IV Insulin Human Regular 100 UNIT ASDIR IV (CKD) Sodium Chloride 99 MLMagnesium Sulfate 50 ML ASDIR PRN IV Magnesium Sulfate 100 ML ASDIR PRN IV Potassium Chloride 100 ML ASDIR PRN IV Potassium Chloride 100 ML ONCE ONE IV (DC) Potassium Phosphate 15 MM ASDIR PRN IV Sodium Chloride 250 MLPotassium Chloride 100 ML ONCE ONE IV (DC) Vancomycin HCl 1,000 MG ONCE ONE IV (DC) Sodium Chloride 250 MLPotassium Chloride 50 ML Q1HR IV (DC) Magnesium Sulfate 50 ML ONCE ONE IV (DC) Sodium Bicarbonate 75 ML .[id number] IV (DC) Sodium Chloride 1,000 MLVancomycin HCl 750 MG ONCE@1400 IV (DC) Sodium Chloride 250 MLHeparin Sodium 5,000 UNIT Q12HR SUBQ Piperacillin Sod/Tazobactam Sod 3.375 GM Q12H IV Sodium Chloride 100 MLPhenylephrine HCl 30 MG ASDIR IV (CKD) Sodium Chloride 247 MLSodium Chloride 500 ML ONCE ONE IV Insulin Human Lispro 0 Q6HR SUBQ (DC) Vasopressin 20 UNIT ASDIR IV (CKD) Sodium Chloride 100 MLMiscellaneous Information 1 EACH ASDIR IV (CKD) Albumin Human 12.5 GM ASDIR PRN IV Heparin Sodium (Porcine) 1,000 UNIT ASDIR PRN DIALYSIS Mannitol 12.5 GM ASDIR PRN IV Sodium Chloride 2,000 ML ASDIR PRN IV Sodium Chloride 10 ML ASDIR PRN IV Sodium Chloride 250 ML ASDIR PRN IV Norepinephrine Bitartrate 250 ML ASDIR PRN IV Sodium Chloride 0 ASDIR PRN IV Physical ExamGeneral appearance: respiratory support (HFNC), sleeping comfortably, no respiratory distressHead/Eyes: atraumatic, normocephalicENT: moist mucosal membranesNeck: no JVD, no masses or swellingCardiovascular: normal heart sounds, regular rate rhythmRespiratory: aerating well, clear to auscultation, no distressAbdomen: soft, no distention, no guarding, no reboundGenitourinary: no bladder distentionExtremities: edema (trace BLE), no clubbing, no cyanosisMusculoskeletal: normal inspectionSkin: dry, intact, normal color, normal temperature, no rashPsychiatry: unable to evaluate ResultsFindings/Data:Laboratory Tests 09/27 1147 Blood Gas Puncture Site R Rad ABG pH (7.35 - 7.45) 7.395 ABG pCO2 (35 - 45 mmHg) 24.1 *L ABG pO2 (80 - 100 mmHg) 136 H ABG HCO3 (22.0 - 26.0 mmol/L) 14.7 L ABG Total CO2 15 ABG O2 Saturation (90 - 100 %) 99 ABG Base Excess (-4 - 4 mmol/L) -10.0 L Temperature (F) 98.6 O2 Delivery Device Cannula Laboratory Tests 09/27 09/27 09/27 09/27 09/27 1230 1044 1044 0438 0438 Chemistry Sodium (134 - 147 mEq/L) 143 144 Potassium (3.4 - 5.0 mEq/L) 3.2 L 3.3 L Chloride (100 - 108 mEq/L) 104 104 Carbon Dioxide (21 - 33 mEq/L) 18 L 16 L Anion Gap (0 - 20) 24 H 27 H BUN (7 - 18 mg/dL) 20 H 14 Creatinine (0.6 - 1.3 mg/dL) 1.5 H 1.2 Glomerular Filtr Rate (70 - 80) 34.1 L 44.2 L Glucose (70 - 110 mg/dL) 159 H 167 H Lactic Acid (0.4 - 1.9 mmol/L) 1.3 1.2 Calcium (8.0 - 10.5 mg/dL) 7.4 L 7.4 L Phosphorus (2.5 - 4.9 MG/DL) 2.9 Magnesium (1.8 - 2.4 mg/dL) 2.30 2.30 09/27 09/26 09/26 09/26 09/26 0011 1816 1802 1515 1515 Chemistry POC Glucose (70 - 110 MG/DL) 169 H 129 H Lactic Acid (0.4 - 1.9 mmol/l) 1.6 2.4 H B-Natriuretic Peptide (0 - 100 PG/ML) 1269.2 H 09/26 1515 Chemistry Sodium (134 - 147 mEq/L) 143 Potassium (3.4 - 5.0 mEq/L) 3.4 Chloride (100 - 108 mEq/L) 104 Carbon Dioxide (21 - 33 mEq/L) 23 Anion Gap (0 - 20) 19 BUN (7 - 18 mg/dL) 5 L Creatinine (0.6 - 1.3 mg/dL) 0.6 Glomerular Filtr Rate (70 - 80) 98.3 H Glucose (70 - 110 mg/dL) 139 H Calcium (8.0 - 10.5 mg/dL) 7.1 L Phosphorus (2.5 - 4.9 MG/DL) 2.6 Magnesium (1.8 - 2.4 mg/dL) 1.60 L Laboratory Tests 09/27 09/26 0438 1515 Hematology WBC (4.5 - 11.0 x10 3/uL) 15.02 H 18.06 H RBC (3.54 - 5.02 x10 6/uL) 2.79 L 3.10 L Hgb (11.0 - 15.0 g/dL) 8.4 L 9.5 L Hct (33.0 - 45.0 %) 26.0 L 27.6 L MCV (81.0 - 99.0 fL) 93.2 89.0 MCH (27.0 - 33.0 pg) 30.1 30.6 MCHC (33.0 - 37.0 g/dL) 32.3 L 34.4 RDW (11.5 - 14.5 %) 14.1 13.5 Plt Count (150 - 400 x10 3/uL) 99 L 131 L MPV (7.0 - 9.0 fL) 11.7 H 11.4 H Neut % (Auto) (56.0 - 77.0 %) 85.4 H 84.8 H Lymph % (Auto) (14.0 - 32.0 %) 6.5 L 4.9 L [place] % (Auto) (4.8 - 9.0 %) 7.5 9.3 H Eos % (Auto) (0.3 - 3.7 %) 0.1 L 0.0 L Baso % (Auto) (0.0 - 2.0 %) 0.1 0.1 Neut # (Auto) (2.0 - 7.6 x10 3/uL) 12.84 H 15.30 H Lymph # (Auto) (1.0 - 3.8 x10 3/uL) 0.97 L 0.89 L [place] # (Auto) (0.1 - 0.8 x10 3/uL) 1.12 H 1.68 H Eos # (Auto) (0.0 - 0.2 x10 3/uL) 0.02 0.00 Baso # (Auto) (0.0 - 0.2 x10 3/uL) 0.01 0.02 Abs Immat Gran (auto) (0.00 - 0.03 x10 3/uL) 0.06 H 0.17 H Add Manual Diff NO NO Immature Gran % (0.0 - 2.0 %) 0.4 0.9 Nucleated RBC % (0 - 0 %) 0.0 0.2 H Nucleated RBCs # (Man) (0.0 - 0.1 x10 3/uL) 0.00 0.04 Platelet Estimate (ADEQUATE THOUSAND) 80-100 Plt Morphology Comment LARGE PLATELETS Laboratory Tests 09/27 09/27 1044 0438 Toxicology Random Vancomycin (mcg/mL) 12.8 Acetone, Quant (NEG - <20 mg/dL) Large - 80-100 mg/dL Laboratory Tests 09/27 1044 Urines Urine Color (YEL/STRAW) YELLOW Urine Appearance (CLEAR) SL CLOUDY Urine pH (5.0 - 7.0) 5.0 Ur Specific [place] (1.005 - 1.030) 1.006 Urine Protein (NEGATIVE) 1+ H Urine Glucose (UA) (NEGATIVE) 3+ H Urine Ketones (NEGATIVE) 2+ H Urine Blood (NEGATIVE) 3+ H Urine Nitrite (NEGATIVE) NEGATIVE Urine Bilirubin (NEGATIVE) NEGATIVE Urine Urobilinogen (0.2 - 1.0 mg/dL) 0.2 Ur Leukocyte Esterase (NEGATIVE) 2+ H Urine RBC (0 - 3 RBC/HPF) 21-50 Urine WBC (0 - 3 WBC/HPF) 21-50 H Ur Squamous Epith Cells (NONE SEEN /HPF) 0-5 Ur Transition Epith Cell (NONE SEEN /HPF) TRACE Amorphous Sediment (NONE /HPF) 1+ H Urine Bacteria (NONE SEEN /HPF) 1+ H Hyaline Casts (NONE SEEN /LPF) 3-5 Urine Mucus (NONE SEEN /LPF) TRACE Diagnosis, Assessment Plan Free Text DxA P NotesFree text DxA P notes:Severe lactic acidosisSevere metabolic acidosisAcute renal failureHypocalcemiaHypomagnesemia?Septic shock vs lactic acidosis from metforminDehydrationHypothermiaDMHTNDementia with behavior disturbance Plan:Ms. Agustin is a 74 yo female with non-specific symptoms of not feeling well, poor appetite that was found to have abnormal labs at [facility], sent to ED for evaluation. In the ED, found to have severe lactic and metabolic acidosis. Discussed at length with ICU (Dr. Lin) and Renal (Dr Aguilar). Given her de [facility] imaging, urinalysis, CXR are unremarkable for this level of acidosis, perhaps this acidosis is secondary to metformin. Plan is to dialyize patient to look for improvement. If no improvement, perhaps this is ischemic bowel. Will continue empiric Zosyn. - Zosyn- blood cultures pending- hold home meds- Accuchecks and SSI- replace electrolytes- heparin for DVT prophylaxsis 09/26Improved lactic acidosis with dialysis. Given improvement, likely this was lactic acidosis secondary to metformin. WBC persistently elevated at 19, will continue broad spectrum abx for now - blood cultures negative - UA unremarkable - monitor CBC for downtrend - if WBC remains elevated with mention of possible neoplasm in stomach, would consider work up however, this patient has dementia with low quality of life, not a good candidate for work up/treatment.BS well controlled with current insulin scheduleCheck labs in am 09/27Lactate remains normal, continue to hold metforminPt noted return of anion gap acidosis with ketonuria. Discussed with Dr. Aguilar, nephrology. Pt placed on DKA protocol to close anion gap, on D10 for glucose needs while on insulin drip.BNP elevated with clear lungs, no dependent edema, decreased O2 requirement. Give one dose of Lasix 40 mg IV, check CXR in the am, monitor for volume overload while getting DKA fluids.WBC decreased to 15, continue abx for now, d/c after 5 daysSome blood noted in stool, CT with signs of chronic inflammation. Given her dementia, unsure that patient would tolerate bowel prep. GI consulted. Appreciate input on area in stomach with possible neoplasm. Check labs in am at 1412 RPT #:[id number] OF REPORTPRProgress [id number]:03:00G.[id number] for patient ghmfBLREEGOZSIOCNX3271-76-52U07:12:54 HCACL 2019-09-28 13:07:00 [id number] J/AqWRASZkzObeUVj LORGrfr3D3lYocwnOPAUKpEH1R6303-95-01P85:07:00 [facility] ([facility])Critical Care Progress NoteREPORT#:[id number] REPORT STATUS: SignedDATE:09/28/19 TIME: 1307 PATIENT: MAC AGUSTIN UNIT #: [id number]#: [id number] [facility] AGE: 74 SEX: F ATTEND: Joel Myers [facility] AUTHOR: Helga Escalante NP * ALL edits or amendments must be made on the electronic/computer document * SubjectiveChief Complaint:lethargicdenies painHPI:74 years old female with past medical history significant for Alzheimer's dementia, behavioral disturbance, hypertension, type 2 diabetes mellitus, migraine headaches, anxiety disorder, bowel and bladder incontinence, rheumatoidarthritis, frequent UTI was brought from the correction. She has been unwell for the past few days. Upon arrival she was found to be hypothermic with a temperature of 33.1 C, profound lactic acidosis at 14, metabolic acidosis with pH of 6.8 and hypercapnia due to respiratory compensation at PCO2 of 9.5 mmHg. Patient is awake, follows commands minimally and answers few yes and no questions. Acute renal failure with a creatinine of 3.9. Has received cefepime, vancomycin and 1 L of crystalloid with a right internal jugular central venouscatheter in place. Upon my assessment her blood pressure is 80/58 mmHg with a heart rate of 117, irregularly irregular and pulse ox of 74%. She is on bear hugger. White blood cell count is 22,000. Has positive UA. There was a question of pneumoperitoneum on the x-ray of the abdomen. CT of the abdomen didnot confirm that finding. A general surgery consult is awaited. Patient will be broadened to Zosyn and Vanco given correction placement. Concern is about ischemic bowel. Also has diarrhea. No blood was reported in the stool. C. difficile toxin and stool has been sent. Patient received 3 A of sodium bicarbonate in the ER and additional 2 more ampules of sodium bicarbonate has been ordered. Potassium is mildly elevated at 5.0. She will be ordered a gram of calcium chloride and D50/insulin. Urine blood cultures have been sent. Patient is receiving her second and third liter of crystalloid with a pressure bag and Levophed is being started at 5 mics per minute via the central venous catheter. She is DNR/DNI. Patient is going to be admitted to medical ICU room #317. Review of Systems ROSRespiratory:Denies: SOB. Cardiovascular:Denies: chest pain. Musculoskeletal:Denies: extremity pain. All systems rev neg: except as marked Free Text ROS NotesFree Text ROS Notes:limited assessment, patient has baseline dementia and is poor historian Objective GeneralVS/I OLast Documented: Result Date Time Pulse Ox 100 09/27 1200 B/P 105/56 09/27 1200 B/P Mean 76 09/27 1200 Pulse 87 09/27 1200 Resp 21 09/27 1200 O2 Delivery High flow nasal cannula 09/27 0800 O2 Flow Rate 10.349315 09/27 0800 Temp 97.1 09/27 0800 24 hour I O ending at 0700: 09/27 0700 09/26 1900 Intake Total 1195.00 1108.00 Output Total 200 170 Balance 995.00 938.00 Intake, IV 1195.00 1058.00 Intake, Oral 50 Number 0 1 Bowel Movements Output, 0 Hemodialysis Output, Urine 200 170 Patient 63.4 kg Weight Medications:Active Meds + DC'd Last 24 HrsVancomycin HCl 1,000 MG DIALYSIS-DOSE AFTER IV (CKD) Sodium Chloride 250 MLDextrose/Water 50 ML ASDIR PRN IV Dextrose/Water 1,000 ML ASDIR IV Insulin Human Regular 100 UNIT ASDIR IV (CKD) Sodium Chloride 99 MLMagnesium Sulfate 50 ML ASDIR PRN IV Magnesium Sulfate 100 ML ASDIR PRN IV Potassium Chloride 100 ML ASDIR PRN IV Potassium Chloride 100 ML ONCE ONE IV (DC) Potassium Phosphate 15 MM ASDIR PRN IV Sodium Chloride 250 MLPotassium Chloride 100 ML ONCE ONE IV (DC) Vancomycin HCl 1,000 MG ONCE ONE IV (DC) Sodium Chloride 250 MLPotassium Chloride 50 ML Q1HR IV (DC) Magnesium Sulfate 50 ML ONCE ONE IV (DC) Sodium Bicarbonate 75 ML .[id number] IV (CKD) Sodium Chloride 1,000 MLVancomycin HCl 750 MG ONCE@1400 IV (DC) Sodium Chloride 250 MLHeparin Sodium 5,000 UNIT Q12HR SUBQ Piperacillin Sod/Tazobactam Sod 3.375 GM Q12H IV Sodium Chloride 100 MLPhenylephrine HCl 30 MG ASDIR IV (CKD) Sodium Chloride 247 MLSodium Chloride 500 ML ONCE ONE IV Insulin Human Lispro 0 Q6HR SUBQ Vasopressin 20 UNIT ASDIR IV (CKD) Sodium Chloride 100 MLMiscellaneous Information 1 EACH ASDIR IV (CKD) Albumin Human 12.5 GM ASDIR PRN IV Heparin Sodium (Porcine) 1,000 UNIT ASDIR PRN DIALYSIS Mannitol 12.5 GM ASDIR PRN IV Sodium Chloride 2,000 ML ASDIR PRN IV Sodium Chloride 10 ML ASDIR PRN IV Sodium Chloride 250 ML ASDIR PRN IV Norepinephrine Bitartrate 250 ML ASDIR PRN IV Sodium Chloride 0 ASDIR PRN IV Physical ExamGeneral appearance: altered mental status, no acute distressHead/Eyes: atraumatic, normocephalic, PERRLENT: dry mucosal membrane, normal noseNeck: normal thyroid, no JVD, no lymphadenopathy, no masses or swellingCardiovascular: normal heart sounds, normal S1 S2, no rub, no gallopRespiratory/Chest: decreased breath sounds, on oxygen, clear to auscultation, symmetric expansion, no tenderness, dyspnea, tachypneaAbdomen: soft, non-tender, normal bowel sounds, no distention, no guarding, no mass/organomegalyGenitourinary: foleyExtremities: no calf tenderness, no cyanosis, no edema, no pedal edemaMusculoskeletal: decreased ROMNeuro/FAST FOOD ATTENDANT: no sensory deficitsSkin: dry, intact, normal color, normal temperaturePsychiatry: unable to evaluate ResultsFindings/Data:Laboratory Tests 09/28/19 1044:[Embedded Image Not Available] 09/28/19 0438:[Embedded Image Not Available] 09/27/19 1515:[Embedded Image Not Available]Laboratory Tests 09/27 1147 Blood Gas Puncture Site R Rad ABG pH (7.35 - 7.45) 7.395 ABG pCO2 (35 - 45 mmHg) 24.1 *L ABG pO2 (80 - 100 mmHg) 136 H ABG HCO3 (22.0 - 26.0 mmol/L) 14.7 L ABG Total CO2 15 ABG O2 Saturation (90 - 100 %) 99 ABG Base Excess (-4 - 4 mmol/L) -10.0 L Temperature (F) 98.6 O2 Delivery Device Cannula Laboratory Tests 09/27 09/27 09/27 09/27 09/27 1044 1044 0438 0438 0011 Chemistry Sodium (134 - 147 mEq/L) 143 144 Potassium (3.4 - 5.0 mEq/L) 3.2 L 3.3 L Chloride (100 - 108 mEq/L) 104 104 Carbon Dioxide (21 - 33 mEq/L) 18 L 16 L Anion Gap (0 - 20) 24 H 27 H BUN (7 - 18 mg/dL) 20 H 14 Creatinine (0.6 - 1.3 mg/dL) 1.5 H 1.2 Glomerular Filtr Rate (70 - 80) 34.1 L 44.2 L Glucose (70 - 110 mg/dL) 159 H 167 H POC Glucose (70 - 110 MG/DL) 169 H Lactic Acid (0.4 - 1.9 mmol/L) 1.3 1.2 Calcium (8.0 - 10.5 mg/dL) 7.4 L 7.4 L Phosphorus (2.5 - 4.9 MG/DL) 2.9 Magnesium (1.8 - 2.4 mg/dL) 2.30 09/26 09/26 09/26 09/26 09/26 1816 1802 1515 1515 1515Chemistry Sodium (134 - 147 mEq/L) 143 Potassium (3.4 - 5.0 mEq/L) 3.4 Chloride (100 - 108 mEq/L) 104 Carbon Dioxide (21 - 33 mEq/L) 23 Anion Gap (0 - 20) 19 BUN (7 - 18 mg/dL) 5 L Creatinine (0.6 - 1.3 mg/dL) 0.6 Glomerular Filtr Rate (70 - 80) 98.3 H Glucose (70 - 110 mg/dL) 139 H POC Glucose (70 - 110 MG/DL) 129 H Lactic Acid (0.4 - 1.9 mmol/l) 1.6 2.4 H Calcium (8.0 - 10.5 mg/dL) 7.1 L Phosphorus (2.5 - 4.9 MG/DL) 2.6 Magnesium (1.8 - 2.4 mg/dL) 1.60 L B-Natriuretic Peptide (0 - 100 1269.2 HPG/ML) Laboratory Tests 09/27 09/26 0438 1515 Hematology WBC (4.5 - 11.0 x10 3/uL) 15.02 H 18.06 H RBC (3.54 - 5.02 x10 6/uL) 2.79 L 3.10 L Hgb (11.0 - 15.0 g/dL) 8.4 L 9.5 L Hct (33.0 - 45.0 %) 26.0 L 27.6 L MCV (81.0 - 99.0 fL) 93.2 89.0 MCH (27.0 - 33.0 pg) 30.1 30.6 MCHC (33.0 - 37.0 g/dL) 32.3 L 34.4 RDW (11.5 - 14.5 %) 14.1 13.5 Plt Count (150 - 400 x10 3/uL) 99 L 131 L MPV (7.0 - 9.0 fL) 11.7 H 11.4 H Neut % (Auto) (56.0 - 77.0 %) 85.4 H 84.8 H Lymph % (Auto) (14.0 - 32.0 %) 6.5 L 4.9 L [place] % (Auto) (4.8 - 9.0 %) 7.5 9.3 H Eos % (Auto) (0.3 - 3.7 %) 0.1 L 0.0 L Baso % (Auto) (0.0 - 2.0 %) 0.1 0.1 Neut # (Auto) (2.0 - 7.6 x10 3/uL) 12.84 H 15.30 H Lymph # (Auto) (1.0 - 3.8 x10 3/uL) 0.97 L 0.89 L [place] # (Auto) (0.1 - 0.8 x10 3/uL) 1.12 H 1.68 H Eos # (Auto) (0.0 - 0.2 x10 3/uL) 0.02 0.00 Baso # (Auto) (0.0 - 0.2 x10 3/uL) 0.01 0.02 Abs Immat Gran (auto) (0.00 - 0.03 x10 3/uL) 0.06 H 0.17 H Add Manual Diff NO NO Immature Gran % (0.0 - 2.0 %) 0.4 0.9 Nucleated RBC % (0 - 0 %) 0.0 0.2 H Nucleated RBCs # (Man) (0.0 - 0.1 x10 3/uL) 0.00 0.04 Platelet Estimate (ADEQUATE THOUSAND) 80-100 Plt Morphology Comment LARGE PLATELETS Laboratory Tests 09/27 09/27 1044 0438 Toxicology Random Vancomycin (mcg/mL) 12.8 Acetone, Quant (NEG - <20 mg/dL) Large - 80-100 mg/dL Laboratory Tests 09/27 1044 Urines Urine Color (YEL/STRAW) YELLOW Urine Appearance (CLEAR) SL CLOUDY Urine pH (5.0 - 7.0) 5.0 Ur Specific [place] (1.005 - 1.030) 1.006 Urine Protein (NEGATIVE) 1+ H Urine Glucose (UA) (NEGATIVE) 3+ H Urine Ketones (NEGATIVE) 2+ H Urine Blood (NEGATIVE) 3+ H Urine Nitrite (NEGATIVE) NEGATIVE Urine Bilirubin (NEGATIVE) NEGATIVE Urine Urobilinogen (0.2 - 1.0 mg/dL) 0.2 Ur Leukocyte Esterase (NEGATIVE) 2+ H Urine RBC (0 - 3 RBC/HPF) 21-50 Urine WBC (0 - 3 WBC/HPF) 21-50 H Ur Squamous Epith Cells (NONE SEEN /HPF) 0-5 Ur Transition Epith Cell (NONE SEEN /HPF) TRACE Amorphous Sediment (NONE /HPF) 1+ H Urine Bacteria (NONE SEEN /HPF) 1+ H Hyaline Casts (NONE SEEN /LPF) 3-5 Urine Mucus (NONE SEEN /LPF) TRACE Microbiology:09/25 0730 NASAL: MRSA DNA Surveillance Screen - COMP09/25 0400 BLOOD: Blood Culture - RES09/25 0345 BLOOD: Blood Culture - RES Diagnosis, Assessment PlanFree text A P: Assessment and Plan: 74 years old female with past medical history significant for Alzheimer's dementia, behavioral disturbance, hypertension, type 2 diabetes mellitus, migraine headaches, anxiety disorder, bowel and bladder incontinence, rheumatoidarthritis, frequent UTI was brought from the correction. She has been unwell for the past few days. Upon arrival she was found to be hypothermic with a temperature of 33.1 C, profound lactic acidosis at 14, metabolic acidosis with pH of 6.8 and hypercapnia due to respiratory compensation at PCO2 of 9.5 mmHg. Patient is awake, follows commands minimally and answers few yes and no questions. Acute renal failure with a creatinine of 3.9. Has received cefepime, vancomycin and 1 L of crystalloid with a right internal jugular central venouscatheter in place. Upon my assessment her blood pressure is 80/58 mmHg with a heart rate of 117, irregularly irregular and pulse ox of 74%. She is on bear hugger. White blood cell count is 22,000. Has positive UA. There was a question of pneumoperitoneum on the x-ray of the abdomen. CT of the abdomen didnot confirm that finding. A general surgery consult is awaited. Patient will be broadened to Zosyn and Vanco given correction placement. Concern is about ischemic bowel. Also has diarrhea. No blood was reported in the stool. C. difficile toxin and stool has been sent. Patient received 3 A of sodium bicarbonate in the ER and additional 2 more ampules of sodium bicarbonate has been ordered. Potassium is mildly elevated at 5.0. She will be ordered a gram of calcium chloride and D50/insulin. Urine blood cultures have been sent. Patient is receiving her second and third liter of crystalloid with a pressure bag and Levophed is being started at 5 mics per minute via the central venous catheter. She is DNR/DNI. Patient is going to be admitted to medical ICU room #317. 09/27/2019Severe lactic acidosis, secondary to metformin use?, Case discussed with nephrology extensively.Hemodialysis catheter was placed yesterday, the patient had a hemodialysis yesterday, and plan is to do hemodialysis todayAcidosis improved, also the lactic acid has been trending down. Monitor electrolytes, monitor lactate. Plan is to replace electrolytes during hemodialysisShortness of breath is better, patient currently on nasal cannula, keep O2 sats more than 90%Sepsis?, Source?, Continue Zosyn and vancomycin IV for now, MRSA screen came back positive, blood cultures are no growth today. White blood cell count is 19.7Continue heparin for DVT prophylaxisKeep map more than 65 mmhg, currently patient is on Levophed and vasopressin drip, will try to wean pressors if possible.Continue sliding scale insulin, monitor glucoseWe will see if she can swallow today to see if we can start dietBicarb drip has been stopped, acidemia resolving She is DNR/DNICritical care time 31 minutes Plan of Care 09/28/19 NEUROH/O dementia with behavior disturbance and anxiety disorder. Begin home meds when cleared to take PO. Add Tylenol prn for pain, and adjust as needed. CVHypotension-resolved. Off pressors. PULMHypoxemia improving- tolerating 5L [place]. p02 on ABG this am is 136, wean O2 as tolerated. GIAdvance diet as tolerated. General Sx consult for questionable pnemoperitoneum-no intervention required at this time. CT Abdomen shows diffuse colonic wall thickening and moderately dilated stomach-GI consult placed. RENALMetformin induced lactic acidosis-Nephrology following and managing HD. On Bicarb gtt, Bicarb this AM 16 on BMP and AG increased from 19->27. Lactic acid 1.2. BUN 14 Crea 1.2 stable. ENDORepeat UA shows 2+ ketones and serum acetone+. Started on insulin gtt per nephrology. Serial BMP and repeat serum acetone in AM. HEMEAnemia-H/H stable 8.4/26. Plt count 99 this AM. No signs of bleeding. Transfuse if Hgb <7. IDLeukocytosis improving WBC 15.02. Continue broad spectrum antibiotics with Vanco/Zosyn. MRSA nares positive, Blood cx negative x 48hours. MSKPT/OT to evaluate and treat when medically stable. PROPHYLAXISSCDs/heparin/ DISPOMonitor closely in the ICU. CM for discharge planning.Consultants: gastroenterology, nephrologyCode status: do not resuscitateCritical care time: Minutes: 35 at 1424 RPT #:[id number] OF REPORTPRProgress Ulhc4453-80-75I15:07:00G.[id number] for patient rkozGLHJMWHDXVIVQY0190-71-62V43:25:58 [facility] 2019-09-28 09:16:00 [id number] +kEl2OdeMdNMc0eAD UgvZNib3/cnOL6XHlVg8BZVqtv0623-53-04F09:16:00 [facility] ([facility]ENTERNephrology Progress NoteREPORT#:[id number] REPORT STATUS: SignedDATE:09/28/19 TIME: 915 PATIENT: MAC AGUSTIN UNIT #: [id number]#: [id number] [address] [birth year] AGE: 74 SEX: F ATTEND: Joel Myers [facility] AUTHOR: Rabia Aguilar MD * ALL edits or amendments must be made on the electronic/computer document * SubjectiveChief Complaint:AMS/Lactic acidosis/AKIUnable to obtain: dementiaComments:Patient seen and evaluated, HPI no change from initial, alert, NAD Review of SystemsUnable to obtain due to:Dementia Objective GeneralVS/I O:Vital Signs: Date Time Temp Pulse Resp B/P B/P Pulse O2 O2 Flow FiO2 Mean Ox Delivery Rate 09/27 0830 81 17 105/55 79 100 09/27 0800 87 21 95/52 69 100 09/27 0730 87 21 93/55 72 100 09/27 0715 83 18 94/52 71 98 / 0700 140 16 106/56 75 95 04/18 0645 101 18 111/53 75 96 /18 0630 83 17 99/56 71 95 /18 0615 130 25 99/53 72 96 /18 0600 94 19 97/55 73 96 /18 0500 76 15 103/53 75 100 / 0401 121 20 119/56 80 99 /18 0400 36.1 09/27 0345 84 16 98/53 69 100 04/ 0330 79 16 87/54 67 98 09/27 0300 79 16 100/53 75 98 /18 0230 79 17 105/51 74 98 /18 0200 80 15 109/56 80 98 /18 0130 76 19 94/53 69 98 04/18 0100 76 16 113/56 81 99 /18 0030 128 17 91/50 61 99 04/18 0000 36.6 09/27 0000 79 18 107/53 77 99 09/26 2330 77 19 106/53 76 100 09/26 2300 78 17 113/51 74 100 04/ 2230 75 16 101/53 74 100 09/26 2200 81 16 102/54 74 100 09/26 2130 83 16 95/55 68 100 09/26 2100 78 16 112/57 77 99 04/17 2030 73 18 89/51 64 97 09/27 1999 36.5 09/27 1999 High flow 10.114123 nasal cannula 09/27 1999 77 16 104/57 76 99 09/26 1930 75 14 101/52 73 100 / 1920 100 High flow 10.185154 nasal cannula 09/26 1900 79 17 106/51 74 100 09/26 1845 72 14 85/51 64 99 04/ 1830 72 16 88/51 65 100 09/26 1815 75 16 100 09/26 1814 86/41 59 09/26 1808 77 16 91/53 70 100 09/26 1806 81 18 102/51 74 91 09/26 1800 79 17 104/52 74 100 09/26 1745 79 17 97/52 70 100 09/26 1730 83 17 88/54 65 100 09/26 1715 82 16 100 09/26 1714 98/54 72 09/26 1700 85 20 95/50 70 100 09/26 1645 91 26 93 09/26 1644 103/49 71 09/26 1631 116/55 76 09/26 1630 86 33 83 09/26 1615 81 18 100 09/26 1614 105/57 77 09/26 1600 36.4 High flow 10.063716 nasal cannula 09/26 1600 86 19 98/56 71 100 09/26 1545 79 17 100 09/26 1544 69 09/26 1544 92/48 09/26 1530 81 17 127/57 82 100 09/26 1516 108/51 74 09/26 1515 84 19 91 09/26 1500 92 24 111/57 65 77 09/26 1446 87 21 115/56 80 99 09/26 1444 88 26 128/60 87 93 09/26 1430 81 21 119/57 82 100 09/26 1418 83 22 102/52 72 85 09/26 1416 81 21 99/51 71 100 09/26 1414 87 27 81 96 09/26 1400 82 24 113/54 78 99 09/26 1346 85 22 108/56 75 84 09/26 1330 85 21 91 09/26 1328 114/51 73 09/26 1315 88 29 118/59 85 80 09/26 1301 88 30 112/64 82 88 09/26 1259 87 21 115/57 82 87 09/26 1246 122/85 100 04/17 1245 80 26 91 09/26 1230 89 25 96/54 72 91 09/26 1215 80 22 100 09/26 1212 104/45 65 09/26 1200 36.3 High flow 10.012031 nasal cannula 09/26 1200 86 26 109/55 79 93 09/26 1145 80 26 89 09/26 1141 112/49 71 09/26 1130 76 19 97/46 66 83 09/26 1115 82 25 95 09/26 1110 129/58 83 09/26 1100 73 24 118/71 88 93 09/26 1050 73 22 114/59 75 95 09/26 1030 73 28 112/60 78 09/26 1011 69 29 117/78 91 09/26 1001 75 25 116/51 74 09/26 0950 78 22 137/67 89 09/26 0936 72 21 130/66 89 09/26 0921 84 24 142/85 105 24 hour I O ending at 0700: 09/27 0700 09/26 1900 Intake Total 1195.00 1108.00 Output Total 200 170 Balance 995.00 938.00 Intake, IV 1195.00 1058.00 Intake, Oral 50 Number 0 1 Bowel Movements Output, 0 Hemodialysis Output, Urine 200 170 Patient 63.4 kg Weight MedicationsActive Meds + DC'd Last 24 HrsVancomycin HCl 1,000 MG DIALYSIS-DOSE AFTER IV (CKD) Sodium Chloride 250 MLVancomycin HCl 1,000 MG ONCE ONE IV (DC) Sodium Chloride 250 MLPotassium Chloride 50 ML Q1HR IV (DC) Magnesium Sulfate 50 ML ONCE ONE IV (DC) Sodium Bicarbonate 75 ML .[id number] IV (CKD) Sodium Chloride 1,000 MLVancomycin HCl 750 MG ONCE@1400 IV (DC) Sodium Chloride 250 MLSodium Phosphate 20 MMOL ONCE ONE IV (DC) Sodium Chloride 250 MLHeparin Sodium 5,000 UNIT Q12HR SUBQ Piperacillin Sod/Tazobactam Sod 3.375 GM Q12H IV Sodium Chloride 100 MLPhenylephrine HCl 30 MG ASDIR IV (CKD) Sodium Chloride 247 MLSodium Chloride 500 ML ONCE ONE IV Insulin Human Lispro 0 Q6HR SUBQ Vasopressin 20 UNIT ASDIR IV (CKD) Sodium Chloride 100 MLMiscellaneous Information 1 EACH ASDIR IV (CKD) Albumin Human 12.5 GM ASDIR PRN IV Heparin Sodium (Porcine) 1,000 UNIT ASDIR PRN DIALYSIS Mannitol 12.5 GM ASDIR PRN IV Sodium Chloride 2,000 ML ASDIR PRN IV Sodium Chloride 10 ML ASDIR PRN IV Sodium Chloride 250 ML ASDIR PRN IV Norepinephrine Bitartrate 250 ML ASDIR PRN IV Sodium Chloride 0 ASDIR PRN IV Physical ExamGeneral appearance: alert, no acute distressHead/eyes: atraumatic, normocephalicENT: normal noseNeck: supple/no meningismusCardiovascular: normal heart sounds, no rubRespiratory: aerating well, symmetric expansionAbdomen: softGenitourinary: ballard, urineExtremities: no edemaMusculoskeletal: normal inspectionNeuro/FAST FOOD ATTENDANT: altered mental statusSkin: dry ResultsFindings/Data:Laboratory Tests 09/26 0956 Blood Gas Puncture Site L Rad ABG pH (7.35 - 7.45) 7.489 H ABG pCO2 (35 - 45 mmHg) 25.6 L ABG pO2 (80 - 100 mmHg) 67 L ABG HCO3 (22.0 - 26.0 mmol/L) 19.6 L ABG Total CO2 20 ABG O2 Saturation (90 - 100 %) 95 ABG Base Excess (-4 - 4 mmol/L) -4.0 Temperature (F) 98.0 O2 Delivery Device Cannula Laboratory Tests 09/27 09/27 09/27 09/26 09/26 0438 0438 0011 1816 1802 Chemistry Sodium (134 - 147 mEq/L) 144 Potassium (3.4 - 5.0 mEq/L) 3.3 L Chloride (100 - 108 mEq/L) 104 Carbon Dioxide (21 - 33 mEq/L) 16 L Anion Gap (0 - 20) 27 H BUN (7 - 18 mg/dL) 14 Creatinine (0.6 - 1.3 mg/dL) 1.2 Glomerular Filtr Rate (70 - 80) 44.2 L Glucose (70 - 110 mg/dL) 167 H POC Glucose (70 - 110 MG/DL) 169 H 129 H Lactic Acid (0.4 - 1.9 mmol/L) 1.2 1.6 Calcium (8.0 - 10.5 mg/dL) 7.4 L Phosphorus (2.5 - 4.9 MG/DL) 2.9 Magnesium (1.8 - 2.4 mg/dL) 2.30 09/26 09/26 09/26 09/26 09/26 1515 1515 1515 1210 0918Chemistry Sodium (134 - 147 mEq/L) 143 Potassium (3.4 - 5.0 mEq/L) 3.4 Chloride (100 - 108 mEq/L) 104 Carbon Dioxide (21 - 33 mEq/L) 23 Anion Gap (0 - 20) 19 BUN (7 - 18 mg/dL) 5 L Creatinine (0.6 - 1.3 mg/dL) 0.6 Glomerular Filtr Rate (70 - 80) 98.3 H Glucose (70 - 110 mg/dL) 139 H POC Glucose (70 - 110 MG/DL) 158 H Lactic Acid (0.4 - 1.9 mmol/L) 2.4 H 2.0 H Calcium (8.0 - 10.5 mg/dL) 7.1 L Phosphorus (2.5 - 4.9 MG/DL) 2.6 Magnesium (1.8 - 2.4 mg/dL) 1.60 L B-Natriuretic Peptide (0 - 100 1269.2 HPG/ML) Laboratory Tests 09/27 09/26 0438 1515 Hematology WBC (4.5 - 11.0 x10 3/uL) 15.02 H 18.06 H RBC (3.54 - 5.02 x10 6/uL) 2.79 L 3.10 L Hgb (11.0 - 15.0 g/dL) 8.4 L 9.5 L Hct (33.0 - 45.0 %) 26.0 L 27.6 L MCV (81.0 - 99.0 fL) 93.2 89.0 MCH (27.0 - 33.0 pg) 30.1 30.6 MCHC (33.0 - 37.0 g/dL) 32.3 L 34.4 RDW (11.5 - 14.5 %) 14.1 13.5 Plt Count (150 - 400 x10 3/uL) 99 L 131 L MPV (7.0 - 9.0 fL) 11.7 H 11.4 H Neut % (Auto) (56.0 - 77.0 %) 85.4 H 84.8 H Lymph % (Auto) (14.0 - 32.0 %) 6.5 L 4.9 L [place] % (Auto) (4.8 - 9.0 %) 7.5 9.3 H Eos % (Auto) (0.3 - 3.7 %) 0.1 L 0.0 L Baso % (Auto) (0.0 - 2.0 %) 0.1 0.1 Neut # (Auto) (2.0 - 7.6 x10 3/uL) 12.84 H 15.30 H Lymph # (Auto) (1.0 - 3.8 x10 3/uL) 0.97 L 0.89 L [place] # (Auto) (0.1 - 0.8 x10 3/uL) 1.12 H 1.68 H Eos # (Auto) (0.0 - 0.2 x10 3/uL) 0.02 0.00 Baso # (Auto) (0.0 - 0.2 x10 3/uL) 0.01 0.02 Abs Immat Gran (auto) (0.00 - 0.03 x10 3/uL) 0.06 H 0.17 H Add Manual Diff NO NO Immature Gran % (0.0 - 2.0 %) 0.4 0.9 Nucleated RBC % (0 - 0 %) 0.0 0.2 H Nucleated RBCs # (Man) (0.0 - 0.1 x10 3/uL) 0.00 0.04 Platelet Estimate (ADEQUATE THOUSAND) 80-100 Plt Morphology Comment LARGE PLATELETS Laboratory Tests 09/27 0438 Toxicology Random Vancomycin (mcg/mL) 12.8 Diagnosis, Assessment PlanFree Text A P:Patient seen and evaluated, discussed with care team, images and laboratories reviewed.History of dementiaHistory of rheumatoid arthritisHistory of frequent fallsHistory of frequent UTIsHistory of hypertension: Currently hypotensiveHypokalemia: We will supplementSevere hypomagnesemia we will supplementHypocalcemia: We will supplementHypoalbuminemiaSevere lactic acidosis: Etiology, could be related to septic shock, however source is unclear, rule out ischemic bowel, Zosyn, will need to review her medications if patient has been on metformin, lactic acidosis due to metformin in the setting of acute renal failure is a possibility and will do hemodialysis in the setting.Patient has been taking Metformin 1000 BID, kenneth has lactic acidosis that is induced by Metformin, discussed with deysi and ICC/Primary team will proceed with HD09/27/2019 mental status a lot better, hemodynamically more stable, pressors being weaned off, received 6 hours of hemodialysis yesterday, her last set of blood gas showed a pH of 7.40, PCO2 25, PO2 55, lactic acid 6.2 improving, sodium is 143 potassium 3.6 CO2 20 chloride 101 BUN 13 creatinine 1.1, hemoglobin this morning 9.7, white blood count 19.78 trending down, platelet 156, her clinical picture is consistent with metformin induced lactic acidosis, will do another session of hemodialysis, 4 hours, potassium 3.5, no ultrafiltration, will give 20 mmol of potassium phosphate and expectation of hypophosphatemia during hemodialysis. katie and evaluated during HD, discussed with RN and HD nurse09/28/2019 laboratories from this morning showed sodium 144, potassium 3.3 we will give KCl 20 mEq IV x1, chloride 104, bicarbonate 16, creatinine 1.2, lacticacid 1.2, hemoglobin 8.4, white blood count 15.2, blood culture still negative, anion gap today is 24 with a normal lactic acid etiology unclear will repeat BMP, repeat lactic acid and order serum acetone and do urinalysis to check for urine ketones, also will do a blood gas. Ketones came back as large, This is likley starvation ketoacidosis that has been exacerbated by gluconeogenesis inhibition by Metformin and has been reported in the literature, will start Glucose and insulin drip at [address] [facility] #:[id number] OF REPORTPRProgress Zkne0855-03-38D30:16:00G.[id number] for patient jrdzKEEBOVDAVRKMHZ4021-89-73R03:22:51 [facility] 2019-09-28 07:59:00 XSuxlzvjopu87758022YlSLgZ8DH23qXXPWsyx+s N7EzgvUIW/GkRm0cb 2ncqzc0kmst09/bRXXYLG2OBwd0535-23-64S17:59:00 [facility] Prog.Note-VancomycinREPORT#:[id number] REPORT STATUS: SignedDATE:09/28/19 TIME: 758 PATIENT: MAC AGUSTIN UNIT #: [id number]#: [id number] [address]: [birth year] AGE: 74 SEX: F ATTEND: Joel Myers [facility] AUTHOR: Yray Figueroa [facility] * ALL edits or amendments must be made on the electronic/computer document * Vancomycin VancomycinMedication Therapy:Vancomycin Goal trough: 15-20 mcg/mlIndication for treatment:EmpiricCurrent therapy:Vancomycin dosing per levelsDay of therapy:Day 3Weight: Actual weight (kg): 63.4VS and I/O:Vital Signs Date Temp Pulse Resp B/P B/P Mean Pulse Ox FiO2 09/25-09/27 33.1-37.3 69-132 12-60 65-226/34-144 44-179 73-100 72 hours ending at 0700 09/27 0709/26 19009/26 0709/25 19009/25 0700 1900Intake 1195.00 1108.00 2253.00TotalOutput 200 150 295TotalBalance 995.00 958.00 1958.00 Intake, 0HemodialysisIntake, IV 1195.00 1058.00 2253.00Intake, 50OralNumber 0 1BowelMovementsOutput, 0HemodialysisOutput, 200 150 295UrinePatient 63.4 kg 63.4 kg 61.4 kgWeightWeight Bed scale Bed scaleMeasurementMethod 72 Hour I O Total 09/27 0700 09/26 0700 09/25 0700 Intake Total 2303.00 2253.00 Output Total 350 295 Balance 1953.00 1958.00 Labs:Laboratory Tests: 09/27 437 Toxicology Random Vancomycin (mcg/mL) 12.8 Laboratory Test : 09/27 1515 Chemistry BUN (7 - 18 mg/dL) 14 5 L Creatinine (0.6 - 1.3 mg/dL) 1.2 0.6 Hematology WBC (4.5 - 11.0 x10 3/uL) 15.02 H 18.06 H Microbiology:09/25 729 NASAL: MRSA DNA Surveillance Screen - COMP09/25 0400 BLOOD: Blood Culture - RES09/25 0345 BLOOD: Blood Culture - RES Last dialysis session: Date: 09/27/19Treatment plan: consult, change regimenRegimen:Ms. Agustin is a 74 yo female with dementia, DM2, Chronic pain, frequent UTI, DM2, RA, anxiety presented to ED from [facility] for concerns of abnormal labs,dehydration, NATHEN, suspect UTI. Dr. Lin consulted pharmacy to manage vancomyicn for sepsis with goal trough 15-20 mcg/mL. Micro: * 09/25 BCx NGTD* 09/25 MRSA screen (+) Imaging: * 09/26 CXR no acute abnormality * 09/25 CT abd: underdistention vs colitis; gastritis vs neuplasm of the stomach 09/27 A/P: * WBC 15.02 (down), Tmax 36.8 C, BUN/SCr 14/1.2, UOP 370 mL/24 hr. Last HD 09/26* Random vancomycin level this morning 12.8 mg/dL (subtherapeutic). * Will order a one-time dose of vancomycin 1000 mg IV for now and then schedule vancomycin 1000 mg IV after each HD session.* Will plan to obtain new level prior to 3rd HD session of new regimen (level not ordered yet).* Pharmacy will continue to follow and adjust regimen for goal post-HD levels 15-20 mcg/mL. at 0806 RPT #:[id number] OF REPORTPRProgress Ghto3930-01-30N53:59:00G.[id number] for patient lmrhXMUXRQQTYAVNUY2772-40-06Y33:06:22 [facility] 2019-09-27 13:28:00 YQihsklsjse23171725Uq55q0+0L06cqPA9y4tee yjgsI4JRh3ZKTgjFb Fa+xNlgsCd5Adx6zYYB16wuR/t5764-40-32I01:28:00 [facility])Hospitalist Progress NoteREPORT#:[id number] REPORT STATUS: SignedDATE:09/27/19 TIME: 1328 PATIENT: MAC AGUSTIN UNIT #: [id number]#: [id number] [address] [birth year] AGE: 74 SEX: F ATTEND: Joel Myers [facility] AUTHOR: Marisabel Chu DO * ALL edits or amendments must be made on the electronic/computer document * SubjectiveChief Complaint:Pt is demented, only says "no" repeatedly. Review of SystemsUnable to obtain due to:dementia, only says "no" Objective GeneralVS/I O:Vital Signs:Date Time Temp Pulse Resp B/P B/P Pulse O2 O2 Flow FiO2 Mean Ox Delivery Rate04/17 1301 88 30 112/64 82 8804/17 1259 87 21 115/57 82 8704/17 1246 122/85 99861/17 1245 80 26 9104/17 1230 89 25 96/54 72 9104/17 1215 80 22 39411/17 1212 104/45 6504/17 1200 97.3 High flow 10.563733 nasal jhayska12/17 1200 86 26 109/55 79 9304/17 1145 80 26 8904/17 1141 112/49 7104/17 1130 76 19 97/46 66 8304/17 1115 82 25 9504/17 1110 129/58 8304/17 1100 73 24 118/71 88 9304/17 1050 73 22 114/59 75 9504/17 1030 73 28 112/60 7804/17 1011 69 29 117/78 9104/17 1001 75 25 116/51 7404/17 0950 78 22 137/67 8904/17 0936 72 21 130/66 8904/17 0921 84 24 142/85 92345/17 0901 83 20 134/99 37559/17 0846 75 19 137/60 8604/17 0830 79 18 127/59 8504/17 0816 87 30 121/57 7704/17 0800 High flow 10.534510 nasal sudtfzi82/17 0800 97.5 High flow 10.752074 nasal /17 0800 83 21 139/59 81 9904/17 0746 79 21 122/57 82 9904/17 0744 22 140/62 89 00220/17 0742 80 21 132/58 84 13736/17 0740 81 20 131/91 105 94855/17 0731 88 24 141/60 86 9704/17 0715 82 20 130/63 91 07539/17 0712 84 21 123/56 80 38019/17 0710 84 20 121/59 85 61926/17 0709 83 21 119/53 76 93249/17 0700 88 25 145/64 92 00110/17 0400 98.3 80 21 122/58 79 97 High flow 10.850099 nasal sjbeplj22/17 0350 96 High flow 11.830168 nasal fkdarqv01/17 0016 92 Nasal 5.167008 zfolaja07/17 0000 97.0 86 19 113/59 77 89 Nasal 5.688827 lmjvjmo16/16 1999 Nasal 3.171845 gshblqi27/16 1999 97.8 92 21 128/56 80 92 Nasal 3.859854 ymnajcw26/16 1900 96 27 118/60 86 9204/16 1855 97 27 104/59 79 9404/16 1850 96 25 115/56 78 9404/16 1845 98 23 127/59 85 9404/16 1844 97 22 118/62 84 9404/16 1841 97 25 71/52 57 9404/16 1836 97 24 127/80 97 9604/16 1830 96 30 106/77 88 9004/16 1820 96 26 111/56 79 7804/16 1815 96 28 93/51 65 9504/16 1812 94 37 129/51 74 9604/16 1810 93 60 75/52 60 9504/16 1804 97 22 136/082 097 3382/16 1800 94 29 9604/16 1756 97 35 110/74 89 9604/16 1750 96 33 114/72 84 9704/16 1746 101 27 110/50 72 8204/16 1745 98 28 9304/16 1740 98 24 109/46 67 9304/16 1735 94 36 104/51 73 9604/16 1730 95 26 8704/16 1725 98 29 109/55 77 9404/16 1720 101 32 144/57 82 9604/16 1719 98 37 124/55 73 9604/16 1715 95 32 9404/16 1711 97 54 226/115 279 3176/16 1706 98 38 183/975 849 1598/16 1700 97 37 113/54 78 9804/16 1655 95 32 115/55 77 8704/16 1650 97 28 117/58 83 9804/16 1645 94 29 108/55 75 9804/16 1640 94 30 110/53 77 9704/16 1639 95 29 116/72 89 9704/16 1630 86 33 125/54 78 8804/16 1625 95 23 104/55 76 9504/16 1620 96 25 105/53 76 9504/16 1616 96 26 106/53 76 9604/16 1615 94 29 9504/16 1610 96 29 104/50 67 9504/16 1606 94 34 90/46 66 9704/16 1601 94 28 151/64 92 7304/16 1600 93 28 7704/16 1600 99.1 100 Room air04/16 1600 98.1 94 32 125/54 77 94 Nasal 3.678629 pkvvarv52/16 1556 96 30 85/57 64 9204/16 1550 97 29 94/50 67 9704/16 1546 96 27 102/47 65 9804/16 1545 96 20 9804/16 1541 96 26 134/858 906 2153/16 1536 97 26 9704/16 1535 97 25 97/49 70 9604/16 1530 99 27 118/58 83 9604/16 1525 99 25 101/54 72 9704/16 1521 975 57 6507/16 1520 102 31 113/51 73 9604/16 1517 100 22 156/64 92 72741/16 1515 100 24 182/263 128 5642/16 1510 101 29 120/56 81 55950/16 1505 132 32 125/53 76 9804/16 1500 103 19 113/63 80 82095/16 1450 106 25 104/55 74 9604/16 1446 102 89 7439/16 1446 105 26 104/65 76 9804/16 1445 444 62 3962/16 1444 109 25 167/702 860 0375/16 1436 109 19 130/56 80 9904/16 1430 110 12 102/53 75 9904/16 1425 114 14 100/52 71 9904/16 1420 120 26 101/50 67 91051/16 1415 116 22 96/55 72 9804/16 1410 116 22 89/51 65 9804/16 1405 118 24 78/46 57 9804/16 1400 118 21 82/49 59 9904/16 1355 122 21 79/52 61 4/16 1350 123 22 77/45 56 9804/16 1345 123 22 84/42 58 4/16 1340 120 18 68/39 48 4/16 1335 115 23 66/40 46 4/16 1331 114 23 65/39 47 4/16 1330 116 22 69/34 44 98 24 hour I O ending at 0700: 09/26 0700 09/25 1900 Intake Total 2253.00 Output Total 275 Balance 1978.00 Intake, 0 Hemodialysis Intake, IV 2253.00 Output, Urine 275 Patient 63.4 kg Weight Weight Bed scale Measurement Method Patient Weight Weight (lb): 139Weight (oz): 12.37Weight (kg): 63.400 Medications:Active Meds + DC'd Last 24 HrsVancomycin HCl 750 MG ONCE@1400 IV Sodium Chloride 250 MLSodium Phosphate 20 MMOL ONCE ONE IV (DC) Sodium Chloride 250 MLHeparin Sodium 5,000 UNIT Q12HR SUBQ Magnesium Sulfate 50 ML ONCE ONE IV (DC) Sodium Phosphate 20 MMOL ONCE ONE IV (DC) Sodium Chloride 250 MLPiperacillin Sod/Tazobactam Sod 3.375 GM Q12H IV Sodium Chloride 100 MLSodium Chloride 1,000 ML .Q8H IV (DC) Piperacillin Sod/Tazobactam Sod 3.375 GM Q8H IV (DC) Sodium Chloride 100 MLPhenylephrine HCl 30 MG ASDIR IV (CKD) Sodium Chloride 247 MLSodium Chloride 500 ML ONCE ONE IV Insulin Human Lispro 0 Q6HR SUBQ Sodium Chloride 1,000 ML BOLUS ONCE IV (DC) Vasopressin 20 UNIT ASDIR IV (CKD) Sodium Chloride 100 MLMiscellaneous Information 1 EACH ASDIR IV (CKD) Albumin Human 12.5 GM ASDIR PRN IV Heparin Sodium (Porcine) 1,000 UNIT ASDIR PRN DIALYSIS Mannitol 12.5 GM ASDIR PRN IV Sodium Chloride 2,000 ML ASDIR PRN IV Sodium Chloride 10 ML ASDIR PRN IV Sodium Chloride 250 ML ASDIR PRN IV Sodium Bicarbonate 150 ML Q11H IV (DC) Dextrose/Water 1,000 MLNorepinephrine Bitartrate 250 ML ASDIR PRN IV Sodium Chloride 0 ASDIR PRN IV (DC) Potassium Chloride/Dextrose/Sod Cl 1,000 ML X1ED STA IV (DC) Acetaminophen 650 MG Q4H PRN PRN PO (DC) Albuterol/Ipratropium 3 ML RTQ4H PRN PRN INH (DC) Dextrose/Water 125 ML ASDIR PRN IV (DC) Dextrose/Water 250 ML ASDIR PRN IV (DC) Glucagon 1 MG ASDIR PRN IM (DC) Ondansetron HCl 4 MG Q6H PRN PRN IV (DC) Sterile Water 1.2 ML ASDIR IM (DC) Sodium Chloride 0 ASDIR PRN IV Sodium Chloride 0 ASDIR PRN IV (DC) Physical ExamGeneral appearance: alert, awake, no acute distress, no respiratory distressHead/Eyes: atraumatic, normocephalicENT: moist mucosal membranesNeck: no JVD, no masses or swellingCardiovascular: normal heart sounds, regular rate rhythmRespiratory: aerating well, clear to auscultation, no distressAbdomen: soft, no distention, no guarding, no reboundGenitourinary: no bladder distentionExtremities: edema (trace BLE), no clubbing, no cyanosisMusculoskeletal: normal inspectionNeuro/FAST FOOD ATTENDANT: PERRLA moves limbs independently but does not follow directionsSkin: dry, intact, normal color, normal temperature, no rashPsychiatry: unable to evaluate ResultsFindings/Data:Laboratory Tests 09/26 09/26 09/25 09/25 09/25 0956 0238 1732 1509 1503Blood Gas Puncture Site L Rad L Rad R Fem R Fem R Brach ABG pH (7.35 - 7.45) 7.489 H 7.408 7.635 *H 7.674 *H ABG pCO2 (35 - 45 mmHg) 25.6 L 24.8 *L 23.8 *L 17.1 *L ABG pO2 (80 - 100 mmHg) 67 L 55 L 52 L 86 ABG HCO3 (22.0 - 26.0 mmol/L) 19.6 L 15.5 L 25.3 19.9 L ABG Total CO2 20 16 26 20 ABG O2 Saturation (90 - 100 %) 95 88 L 93 99 ABG Base Excess (-4 - 4 mmol/L) -4.0 -9.0 L 4.0 0.0 VBG pH (7.33 - 7.45) 7.55 H VBG pCO2 (43 - 47 mmHg) 22 L VBG pO2 (10 - 50 mmHg) 37 VBG HCO3 (22 - 27 mmol/L) 19.4 L VBG Total CO2 20 VBG O2 Sat (Calc) (60 - 80 %) 80 VBG Base Excess (-4.0 - 4.0 -3.0mmol/L) VBG Temperature (F) 98.6 Temperature (F) 98.0 38.0 98.6 98.6 O2 Delivery Device Cannula Cannula Cannula Cannula Cannula Laboratory Tests 09/26 09/26 09/26 09/26 09/26 1210 0918 0544 0515 0500Chemistry Sodium (134 - 147 mEq/L) 143 Potassium (3.4 - 5.0 mEq/L) 3.5 Chloride (100 - 108 mEq/L) 102 Carbon Dioxide (21 - 33 mEq/L) 15 L Anion Gap (0 - 20) 30 H BUN (7 - 18 mg/dL) 16 Creatinine (0.6 - 1.3 mg/dL) 1.2 Glomerular Filtr Rate (70 - 80) 44.2 L Glucose (70 - 110 mg/dL) 137 H POC Glucose (70 - 110 MG/DL) 158 H 146 H Lactic Acid (0.4 - 1.9 mmol/l) 2.0 H 3.5 H Calcium (8.0 - 10.5 mg/dL) 6.7 L Ionized Calcium Jefry (1.12 - 1.32 MMOL/L) 0.99 L Phosphorus (2.5 - 4.9 MG/DL) 3.9 Magnesium (1.8 - 2.4 mg/dL) 2.50 H 09/26 09/26 09/26 09/25 09/25 0115 0115 0013 2145 2145Chemistry Sodium (134 - 147 mEq/L) 143 Potassium (3.4 - 5.0 mEq/L) 3.6 Chloride (100 - 108 mEq/L) 101 Carbon Dioxide (21 - 33 mEq/L) 20 L Anion Gap (0 - 20) 26 H BUN (7 - 18 mg/dL) 13 Creatinine (0.6 - 1.3 mg/dL) 1.1 Glomerular Filtr Rate (70 - 80) 48.8 L Glucose (70 - 110 mg/dL) 119 H POC Glucose (70 - 110 MG/DL) 117 H Lactic Acid (0.4 - 1.9 mmol/L) 6.2 *H 7.8 *H Calcium (8.0 - 10.5 mg/dL) 6.9 L Ionized Calcium Jefry (1.12 - 1.32 0.96 LMMOL/L) Phosphorus (2.5 - 4.9 MG/DL) 2.3 L Magnesium (1.8 - 2.4 mg/dL) 2.50 H LDL Cholesterol Measurd (0 - 100 mg/dL) 67 09/25 09/25 09/25 09/25 09/25 2145 2145 1827 1655 1655Chemistry Sodium (134 - 147 mEq/L) 142 141 Potassium (3.4 - 5.0 mEq/L) 3.7 3.9 Chloride (100 - 108 mEq/L) 101 100 Carbon Dioxide (21 - 33 mEq/L) 21 25 Anion Gap (0 - 20) 24 H 20 BUN (7 - 18 mg/dL) 10 14 Creatinine (0.6 - 1.3 mg/dL) 1.0 1.1 Glomerular Filtr Rate (70 - 80) 54.5 L 48.8 L Glucose (70 - 110 mg/dL) 103 137 H POC Glucose (70 - 110 MG/DL) 126 H Lactic Acid (0.4 - 1.9 mmol/L) 9.2 *H Calcium (8.0 - 10.5 mg/dL) 7.0 L 7.6 L Ionized Calcium Jefry (1.12 - 1.32 0.96 L 0.98 LMMOL/L) Phosphorus (2.5 - 4.9 MG/DL) 1.6 L 1.2 L Magnesium (1.8 - 2.4 mg/dL) 2.40 1.50 L Troponin I (0.000 - 0.045 ng/mL) 0.284 *H Laboratory Tests 09/26 09/26 0500 0115 Hematology WBC (4.5 - 11.0 x10 3/uL) 19.78 H 21.56 H RBC (3.54 - 5.02 x10 6/uL) 3.17 L 3.14 L Hgb (11.0 - 15.0 g/dL) 9.7 L 9.5 L Hct (33.0 - 45.0 %) 28.6 L 28.3 L MCV (81.0 - 99.0 fL) 90.2 90.1 MCH (27.0 - 33.0 pg) 30.6 30.3 MCHC (33.0 - 37.0 g/dL) 33.9 33.6 RDW (11.5 - 14.5 %) 13.6 13.4 Plt Count (150 - 400 x10 3/uL) 156 159 MPV (7.0 - 9.0 fL) 11.7 H 11.7 H Neut % (Auto) (56.0 - 77.0 %) 88.6 H Lymph % (Auto) (14.0 - 32.0 %) 2.8 L [place] % (Auto) (4.8 - 9.0 %) 6.5 Eos % (Auto) (0.3 - 3.7 %) 1.1 Baso % (Auto) (0.0 - 2.0 %) 0.2 Neut # (Auto) (2.0 - 7.6 x10 3/uL) 19.09 H Lymph # (Auto) (1.0 - 3.8 x10 3/uL) 0.61 L [place] # (Auto) (0.1 - 0.8 x10 3/uL) 1.41 H Eos # (Auto) (0.0 - 0.2 x10 3/uL) 0.23 H Baso # (Auto) (0.0 - 0.2 x10 3/uL) 0.04 Abs Immat Gran (auto) (0.00 - 0.03 x10 3/uL) 0.18 H Add Manual Diff YES NO Immature Gran % (0.0 - 2.0 %) 0.8 Seg Neutrophils % (37 - 69 %) 87 H Lymphocytes % (Manual) (23 - 55 %) 4 L Monocytes % (Manual) (0 - 10 %) 8 Nucleated RBC % (%) 2 0.0 Myelocytes (0.0 - 0.0 %) 1 H Nucleated RBCs # (Man) (0.0 - 0.1 x10 3/uL) 0.00 Platelet Estimate (ADEQUATE THOUSAND) Adequate Plt Morphology Comment LARGE PLATELETS Polychromasia SLIGHT Anisocytosis NORMAL 09/25 1655 Hematology WBC (4.5 - 11.0 x10 3/uL) 21.91 H RBC (3.54 - 5.02 x10 6/uL) 3.45 L Hgb (11.0 - 15.0 g/dL) 10.4 L Hct (33.0 - 45.0 %) 30.2 L MCV (81.0 - 99.0 fL) 87.5 MCH (27.0 - 33.0 pg) 30.1 MCHC (33.0 - 37.0 g/dL) 34.4 RDW (11.5 - 14.5 %) 13.3 Plt Count (150 - 400 x10 3/uL) 214 MPV (7.0 - 9.0 fL) 12.2 H Neut % (Auto) (56.0 - 77.0 %) 90.8 H Lymph % (Auto) (14.0 - 32.0 %) 4.8 L [place] % (Auto) (4.8 - 9.0 %) 3.2 L Eos % (Auto) (0.3 - 3.7 %) 0.1 L Baso % (Auto) (0.0 - 2.0 %) 0.1 Neut # (Auto) (2.0 - 7.6 x10 3/uL) 19.89 H Lymph # (Auto) (1.0 - 3.8 x10 3/uL) 1.06 [place] # (Auto) (0.1 - 0.8 x10 3/uL) 0.70 Eos # (Auto) (0.0 - 0.2 x10 3/uL) 0.02 Baso # (Auto) (0.0 - 0.2 x10 3/uL) 0.03 Abs Immat Gran (auto) (0.00 - 0.03 x10 3/uL) 0.21 H Add Manual Diff NO Immature Gran % (0.0 - 2.0 %) 1.0 Nucleated RBC % (0 - 0 %) 0.0 Nucleated RBCs # (Man) (0.0 - 0.1 x10 3/uL) 0.00 Radiology data:Recent Impressions:RADIOLOGY - XR CHEST 1 V 09/26 2148 Report Impression - Status: SIGNED Entered: 09/27/2019 0756 IMPRESSION: No acute abnormality as above discussed. SL: [id number] By: [email or web address] - Gian Alvarenga M.D. Diagnosis, Assessment Plan Free Text DxA P NotesFree text DxA P notes:Severe lactic acidosisSevere metabolic acidosisAcute renal failureHypocalcemiaHypomagnesemia?Septic shock vs lactic acidosis from metforminDehydrationHypothermiaDMHTNDementia with behavior disturbance Plan:Ms. Agustin is a 74 yo female with non-specific symptoms of not feeling well, poor appetite that was found to have abnormal labs at [place], sent to ED for evaluation. In the ED, found to have severe lactic and metabolic acidosis. Discussed at length with ICU (Dr. Lin) and Renal (Dr Aguilar). Given her [place] imaging, urinalysis, CXR are unremarkable for this level of acidosis, perhaps this acidosis is secondary to metformin. Plan is to dialyize patient to look for improvement. If no improvement, perhaps this is ischemic bowel. Will continue empiric Zosyn. - Zosyn- blood cultures pending- hold home meds- Accuchecks and SSI- replace electrolytes- heparin for DVT prophylaxsis 09/26Improved lactic acidosis with dialysis. Given improvement, likely this was lactic acidosis secondary to metformin. WBC persistently elevated at 19, will continue broad spectrum abx for now - blood cultures negative - UA unremarkable - monitor CBC for downtrend - if WBC remains elevated with mention of possible neoplasm in stomach, would consider work up however, this patient has dementia with low quality of life, not a good candidate for work up/treatment.BS well controlled with current insulin scheduleCheck labs in am at 1338 RPT #:[id number] OF REPORTPRProgress [id number]:28:00G.[id number] for patient ehpfYKIGZSADHASIPO4202-99-20Z58:38:52 [facility] 2019-09-27 11:45:00 [id number] yGKZ3FM66k5CRSfrp xkw2TjF8fbkj+WAPcA+wDNtYLa5345-28-02R27:45:00 [facility])Pharmacy Prog.Note-VancomycinREPORT#:[id number] REPORT STATUS: SignedDATE:09/27/19 TIME: 1145 PATIENT: MAC AGUSTIN UNIT #: [id number]#: [id number] [address] AGE: 74 SEX: F ATTEND: Joel Myers [facility] AUTHOR: Melissa Farah [facility] * ALL edits or amendments must be made on the electronic/computer document * Vancomycin VancomycinMedication Therapy:Vancomycin Goal trough: 15-20 mcg/ml (post-HD)Indication for treatment:empiricCurrent therapy:Medication(s) Ordered:Anti-Infective Agents Sig/Rose Mary Start time Last Medication Dose Route Stop Time Status Admin Vancomycin HCl 750 MG ONCE ONE 09/26 1400 UNV Sodium Chloride 250 ML IV 09/26 1459 Piperacillin Sod/ 3.375 GM Q12H 09/25 1800 AC 09/26 Tazobactam Sod IV 10/02 1759 0552 Sodium Chloride 100 ML Piperacillin Sod/ 3.375 GM Q8H 09/25 1500 DC Tazobactam Sod IV 10/02 1459 Sodium Chloride 100 ML Miscellaneous 1 EACH ASDIR 09/25 1130 CKD Information IV 10/25 1129 Day of therapy:Day 2Weight: Actual weight (kg): 63.4VS and I/O:Vital Signs Date Temp Pulse Resp B/P B/P Mean Pulse Ox FiO2 09/25-09/26 91.5-99.1 69-132 12-60 65-226/34-144 44-179 73-100 72 hours ending at 0700 09/26 0700 09/25 1900 09/25 0700 09/24 1900 09/24 09/23 0700 1900Intake 2253.00TotalOutput 275TotalBalance Intake, 0HemodialysisIntake, IV 2253.00Output, 275UrinePatient 63.4 kg 61.4 kgWeightWeight Bed scale Bed scaleMeasurementMethod 72 Hour I O Total 09/26 0700 09/25 0700 09/24 0700 Intake Total 2253.00 Output Total 275 Balance Labs:Laboratory Test : 09/26 09/26 09/25 09/25 0500 0115 6854 0828 Chemistry BUN (7 - 18 mg/dL) 16 13 10 14 Creatinine (0.6 - 1.3 mg/dL) 1.2 1.1 1.0 1.1 Hematology WBC (4.5 - 11.0 x10 3/uL) 19.78 H 21.56 H 21.91 H Microbiology:09/25 0730 NASAL: MRSA DNA Surveillance Screen - COMP09/25 0400 BLOOD: Blood Culture - RES09/25 0345 BLOOD: Blood Culture - RES Pertinent tests:Recent Impressions:RADIOLOGY - XR CHEST 1 V 09/25 1231 Report Impression - Status: SIGNED Entered: 09/26/2019 1252 IMPRESSION:Right IJ catheter with its tip in the superior vena cava just abovethe level of the right atrium.No acute cardiopulmonary findings identified.Impression By: Delvis Johnson M.D.RADIOLOGY - XR CHEST 1 V 09/26 0748 Report Impression - Status: SIGNED Entered: 09/27/2019 0756 IMPRESSION: No acute abnormality as above discussed. SL: [id number] By: [email or web address] - Gian Alvarenga M.D. Treatment plan: consult, change regimenRegimen:Ms. Agustin is a 74 yo female with dementia, DM2, Chronic pain, frequent UTI, DM2, RA, anxiety presented to ED from [facility] for concerns of abnormal labs,dehydration, NATHEN, suspect UTI. Dr. Lin consulted pharmacy to manage vancomyicn for sepsis with goal trough 15-20 mcg/mL. Micro: * 09/25 BCx NGTD* 09/25 MRSA screen (+) Imaging: * 09/26 CXR no acute abnormality * 09/25 CT abd: underdistention vs colitis; gastritis vs neuplasm of the stomach 09/26 A/P: * Discussed ABX on rounds. Pt admitted w/ concern for lactic acidosis 2/2 metformin, however ICC still concerned for underlying sepsis/infx given pressor requirement on 09/25. Continue broad spectrum ABX for now. * AF, WBC 19.78 elevated but trending down. LA= 2.0, trending down from 14.8 on admission.* Of note, pt is on acute HD per nephro. BUN/SCr 1.2, improved, NATHEN resolving, est CrCl 30 mL/min. Monitor plans for HD moving forward. * Pt received vancomycin 1g IV X1ED on 09/25 @ 0401, 16 mg/kg actual BW; was then dialyzed in the afternoon.* Pre-HD VRL ordered for 08/26 AM never drawn. Pt is currently being dialyzed perd/w bedside RN. * Anticipate serum levels are low; will redose with vancomycin 750mg IV x1 post-HD today. * Ordered repeat pre-HD VRL for tomorrow 08/27 AM; will be prior to 3rd dose of vancomycin. * Pharmacy will continue to follow and adjust regimen for goal post-HD levels 15-20 mcg/mL. at 1206 RPT #:[id number] OF REPORTPRProgress Lvkc6495-92-86I57:45:00G.[id number] for patient rixnRXSJHWOJIGAPQT5415-45-17U03:06:[address] [facility] 2019-09-27 10:48:00 [id number] +C4k7XcIjt+/Q25FY 9MUnWElkRBsRZDjGq0Db+VERLu1355-50-68X48:48:00 [facility] Progress NoteREPORT#:[id number] REPORT STATUS: SignedDATE:09/27/19 TIME: 1048 PATIENT: MAC AGUSTIN UNIT #: [id number]#: [id number] [facility] AGE: 74 SEX: F ATTEND: Joel Myers AUTHOR: Mick Lin MD * ALL edits or amendments must be made on the electronic/computer document * SubjectiveChief Complaint:SomnolentHPI:24-hour events Patient had hemodialysis yesterday, plan is to do hemodialysis todayShortness of breath improvedPatient is still lethargic, but able to wake her upShe is currently on Levophed drip and vasopressin drip. Todd-Synephrine drip is offLabs reviewedHas leukocytosis Objective GeneralVS/I OLast Documented: Result Date Time O2 Delivery High flow nasal cannula 09/26 0800 O2 Flow Rate 10.458041 09/26 0800 Temp 97.5 09/26 0800 Pulse Ox 97 09/26 0400 B/P 122/58 09/26 0400 B/P Mean 79 09/26 0400 Pulse 80 09/26 0400 Resp 21 09/26 0400 24 hour I O ending at 0700: 09/26 0700 09/25 1900 Intake Total 2253.00 Output Total 275 Balance 1978.00 Intake, 0 Hemodialysis Intake, IV 2253.00 Output, Urine 275 Patient 63.4 kg Weight Weight Bed scale Measurement Method Medications:Active Meds + DC'd Last 24 HrsSodium Phosphate 20 MMOL ONCE ONE IV Sodium Chloride 250 MLHeparin Sodium 5,000 UNIT Q12HR SUBQ Magnesium Sulfate 50 ML ONCE ONE IV (DC) Sodium Phosphate 20 MMOL ONCE ONE IV (DC) Sodium Chloride 250 MLPiperacillin Sod/Tazobactam Sod 3.375 GM Q12H IV Sodium Chloride 100 MLSodium Chloride 1,000 ML .Q8H IV (DC) Piperacillin Sod/Tazobactam Sod 3.375 GM Q8H IV (DC) Sodium Chloride 100 MLPhenylephrine HCl 30 MG ASDIR IV (CKD) Sodium Chloride 247 MLSodium Chloride 500 ML ONCE ONE IV Insulin Human Lispro 0 Q6HR SUBQ Sodium Chloride 1,000 ML BOLUS ONCE IV (DC) Vasopressin 20 UNIT ASDIR IV (CKD) Sodium Chloride 100 MLMiscellaneous Information 1 EACH ASDIR IV (CKD) Sodium Bicarbonate 200 MEQ ONCE ONE IV (DC) Sodium Bicarbonate 0 .STK-MED ONE IV (DC) Albumin Human 12.5 GM ASDIR PRN IV Heparin Sodium (Porcine) 1,000 UNIT ASDIR PRN DIALYSIS Mannitol 12.5 GM ASDIR PRN IV Sodium Chloride 2,000 ML ASDIR PRN IV Sodium Chloride 10 ML ASDIR PRN IV Sodium Chloride 250 ML ASDIR PRN IV Sodium Bicarbonate 150 ML Q11H IV (DC) Dextrose/Water 1,000 MLInsulin Human Lispro 0 AC HS SUBQ (DC) Vancomycin HCl 750 MG Q12H IV (CAN) Sodium Chloride 250 MLNorepinephrine Bitartrate 250 ML ASDIR PRN IV Sodium Chloride 0 ASDIR PRN IV (DC) Potassium Chloride/Dextrose/Sod Cl 1,000 ML X1ED STA IV (DC) Acetaminophen 650 MG Q4H PRN PRN PO (DC) Albuterol/Ipratropium 3 ML RTQ4H PRN PRN INH (DC) Dextrose/Water 125 ML ASDIR PRN IV (DC) Dextrose/Water 250 ML ASDIR PRN IV (DC) Glucagon 1 MG ASDIR PRN IM (DC) Ondansetron HCl 4 MG Q6H PRN PRN IV (DC) Sterile Water 1.2 ML ASDIR IM (DC) Sodium Chloride 0 ASDIR PRN IV Sodium Chloride 1,000 ML X1ED STA IV (DC) Sodium Chloride 0 ASDIR PRN IV (DC) ResultsFindings/Data:Laboratory Tests 09/27/19 0500:[Embedded Image Not Available] 09/27/19 0115:[Embedded Image Not Available] 09/26/19 2145:[Embedded Image Not Available] 09/26/19 1655:[Embedded Image Not Available]Laboratory Tests 09/26 09/26 09/25 09/25 09/25 0956 0238 1732 1509 1503Blood Gas Puncture Site L Rad L Rad R Fem R Fem R Brach ABG pH (7.35 - 7.45) 7.489 H 7.408 7.635 *H 7.674 *H ABG pCO2 (35 - 45 mmHg) 25.6 L 24.8 *L 23.8 *L 17.1 *L ABG pO2 (80 - 100 mmHg) 67 L 55 L 52 L 86 ABG HCO3 (22.0 - 26.0 mmol/L) 19.6 L 15.5 L 25.3 19.9 L ABG Total CO2 20 16 26 20 ABG O2 Saturation (90 - 100 %) 95 88 L 93 99 ABG Base Excess (-4 - 4 mmol/L) -4.0 -9.0 L 4.0 0.0 VBG pH (7.33 - 7.45) 7.55 H VBG pCO2 (43 - 47 mmHg) 22 L VBG pO2 (10 - 50 mmHg) 37 VBG HCO3 (22 - 27 mmol/L) 19.4 L VBG Total CO2 20 VBG O2 Sat (Calc) (60 - 80 %) 80 VBG Base Excess (-4.0 - 4.0 -3.0mmol/L) VBG Temperature (F) 98.6 Temperature (F) 98.0 38.0 98.6 98.6 O2 Delivery Device Cannula Cannula Cannula Cannula Cannula Laboratory Tests 09/26 09/26 09/26 09/26 09/26 0918 0544 0515 0500 0115Chemistry Sodium (134 - 147 mEq/L) 143 Potassium (3.4 - 5.0 mEq/L) 3.5 Chloride (100 - 108 mEq/L) 102 Carbon Dioxide (21 - 33 mEq/L) 15 L Anion Gap (0 - 20) 30 H BUN (7 - 18 mg/dL) 16 Creatinine (0.6 - 1.3 mg/dL) 1.2 Glomerular Filtr Rate (70 - 80) 44.2 L Glucose (70 - 110 mg/dL) 137 H POC Glucose (70 - 110 MG/DL) 146 H Lactic Acid (0.4 - 1.9 mmol/l) 2.0 H 3.5 H 6.2 *H Calcium (8.0 - 10.5 mg/dL) 6.7 L Ionized Calcium Jefry (1.12 - 1.32 MMOL/L) 0.99 L Phosphorus (2.5 - 4.9 MG/DL) 3.9 Magnesium (1.8 - 2.4 mg/dL) 2.50 H 09/26 09/26 09/25 09/25 09/25 0115 0013 2145 2145 2145Chemistry Sodium (134 - 147 mEq/L) 143 Potassium (3.4 - 5.0 mEq/L) 3.6 Chloride (100 - 108 mEq/L) 101 Carbon Dioxide (21 - 33 mEq/L) 20 L Anion Gap (0 - 20) 26 H BUN (7 - 18 mg/dL) 13 Creatinine (0.6 - 1.3 mg/dL) 1.1 Glomerular Filtr Rate (70 - 80) 48.8 L Glucose (70 - 110 mg/dL) 119 H POC Glucose (70 - 110 MG/DL) 117 H Lactic Acid (0.4 - 1.9 mmol/l) 7.8 *H Calcium (8.0 - 10.5 mg/dL) 6.9 L Ionized Calcium Jefry (1.12 - 1.32 0.96 L 0.96 LMMOL/L) Phosphorus (2.5 - 4.9 MG/DL) 2.3 L Magnesium (1.8 - 2.4 mg/dL) 2.50 H LDL Cholesterol Measurd (0 - 100 mg/dL) 67 09/25 09/25 09/25 09/25 09/25 2145 1827 1655 1655 1207Chemistry Sodium (134 - 147 mEq/L) 142 141 Potassium (3.4 - 5.0 mEq/L) 3.7 3.9 Chloride (100 - 108 mEq/L) 101 100 Carbon Dioxide (21 - 33 mEq/L) 21 25 Anion Gap (0 - 20) 24 H 20 BUN (7 - 18 mg/dL) 10 14 Creatinine (0.6 - 1.3 mg/dL) 1.0 1.1 Glomerular Filtr Rate (70 - 80) 54.5 L 48.8 L Glucose (70 - 110 mg/dL) 103 137 H POC Glucose (70 - 110 MG/DL) 126 H 191 H Lactic Acid (0.4 - 1.9 mmol/L) 9.2 *H Calcium (8.0 - 10.5 mg/dL) 7.0 L 7.6 L Ionized Calcium Jefry (1.12 - 1.32 0.98 LMMOL/L) Phosphorus (2.5 - 4.9 MG/DL) 1.6 L 1.2 L Magnesium (1.8 - 2.4 mg/dL) 2.40 1.50 L Troponin I (0.000 - 0.045 ng/mL) 0.284 *H 09/25 1205 Chemistry POC Glucose (70 - 110 MG/DL) > 600 H Laboratory Tests 09/26 09/26 0500 0115 Hematology WBC (4.5 - 11.0 x10 3/uL) 19.78 H 21.56 H RBC (3.54 - 5.02 x10 6/uL) 3.17 L 3.14 L Hgb (11.0 - 15.0 g/dL) 9.7 L 9.5 L Hct (33.0 - 45.0 %) 28.6 L 28.3 L MCV (81.0 - 99.0 fL) 90.2 90.1 MCH (27.0 - 33.0 pg) 30.6 30.3 MCHC (33.0 - 37.0 g/dL) 33.9 33.6 RDW (11.5 - 14.5 %) 13.6 13.4 Plt Count (150 - 400 x10 3/uL) 156 159 MPV (7.0 - 9.0 fL) 11.7 H 11.7 H Neut % (Auto) (56.0 - 77.0 %) 88.6 H Lymph % (Auto) (14.0 - 32.0 %) 2.8 L [place] % (Auto) (4.8 - 9.0 %) 6.5 Eos % (Auto) (0.3 - 3.7 %) 1.1 Baso % (Auto) (0.0 - 2.0 %) 0.2 Neut # (Auto) (2.0 - 7.6 x10 3/uL) 19.09 H Lymph # (Auto) (1.0 - 3.8 x10 3/uL) 0.61 L [place] # (Auto) (0.1 - 0.8 x10 3/uL) 1.41 H Eos # (Auto) (0.0 - 0.2 x10 3/uL) 0.23 H Baso # (Auto) (0.0 - 0.2 x10 3/uL) 0.04 Abs Immat Gran (auto) (0.00 - 0.03 x10 3/uL) 0.18 H Add Manual Diff YES NO Immature Gran % (0.0 - 2.0 %) 0.8 Seg Neutrophils % (37 - 69 %) 87 H Lymphocytes % (Manual) (23 - 55 %) 4 L Monocytes % (Manual) (0 - 10 %) 8 Nucleated RBC % (%) 2 0.0 Myelocytes (0.0 - 0.0 %) 1 H Nucleated RBCs # (Man) (0.0 - 0.1 x10 3/uL) 0.00 Platelet Estimate (ADEQUATE THOUSAND) Adequate Plt Morphology Comment LARGE PLATELETS Polychromasia SLIGHT Anisocytosis NORMAL 09/25 1655 Hematology WBC (4.5 - 11.0 x10 3/uL) 21.91 H RBC (3.54 - 5.02 x10 6/uL) 3.45 L Hgb (11.0 - 15.0 g/dL) 10.4 L Hct (33.0 - 45.0 %) 30.2 L MCV (81.0 - 99.0 fL) 87.5 MCH (27.0 - 33.0 pg) 30.1 MCHC (33.0 - 37.0 g/dL) 34.4 RDW (11.5 - 14.5 %) 13.3 Plt Count (150 - 400 x10 3/uL) 214 MPV (7.0 - 9.0 fL) 12.2 H Neut % (Auto) (56.0 - 77.0 %) 90.8 H Lymph % (Auto) (14.0 - 32.0 %) 4.8 L [place] % (Auto) (4.8 - 9.0 %) 3.2 L Eos % (Auto) (0.3 - 3.7 %) 0.1 L Baso % (Auto) (0.0 - 2.0 %) 0.1 Neut # (Auto) (2.0 - 7.6 x10 3/uL) 19.89 H Lymph # (Auto) (1.0 - 3.8 x10 3/uL) 1.06 [place] # (Auto) (0.1 - 0.8 x10 3/uL) 0.70 Eos # (Auto) (0.0 - 0.2 x10 3/uL) 0.02 Baso # (Auto) (0.0 - 0.2 x10 3/uL) 0.03 Abs Immat Gran (auto) (0.00 - 0.03 x10 3/uL) 0.21 H Add Manual Diff NO Immature Gran % (0.0 - 2.0 %) 1.0 Nucleated RBC % (0 - 0 %) 0.0 Nucleated RBCs # (Man) (0.0 - 0.1 x10 3/uL) 0.00 Microbiology:09/25 0730 NASAL: MRSA DNA Surveillance Screen - COMP09/25 0400 BLOOD: Blood Culture - RES09/25 0345 BLOOD: Blood Culture - RES Radiology dataRecent Impressions:RADIOLOGY - XR CHEST 1 V 09/25 1231 Report Impression - Status: SIGNED Entered: 09/26/2019 1252 IMPRESSION:Right IJ catheter with its tip in the superior vena cava just abovethe level of the right atrium.No acute cardiopulmonary findings identified.Impression By: Delvis Johnson M.D.RADIOLOGY - XR CHEST 1 V 09/26 0748 Report Impression - Status: SIGNED Entered: 09/27/2019 0756 IMPRESSION: No acute abnormality as above discussed. SL: [id number] By: [email or web address] - Gian Alvarenga M.D. Free Text Obj NotesFree Text Obj Notes:Physical exam: VS reviewedGeneral: Somnolent, chronically ill, elderly patient, in NAD. HEENT: PERRLA, pale conjunctivaMouth is dry, no lesionNeck, SuppleHeart: RRR with no murmursLungs: decreased breath sounds, no cracklesAbdomen: soft, NT, BS+Extr: Grade 1 lower leg edemaNeuro: Somnolent, but follows basic commands, able to wake it up, confused and disoriented.Skin: no rashes Diagnosis, Assessment PlanFree text A P:Problem List:Severe lactic acidosis, secondary to metformin use?Presumed septic shock, unknown sourceSevere metabolic acidosisAcute renal failureLeukocytosisDehydrationHypothermia Assessment and Plan: 74 years old female with past medical history significant for Alzheimer's dementia, behavioral disturbance, hypertension, type 2 diabetes mellitus, migraine headaches, anxiety disorder, bowel and bladder incontinence, rheumatoidarthritis, frequent UTI was brought from the correction. She has been unwell for the past few days. Upon arrival she was found to be hypothermic with a temperature of 33.1 C, profound lactic acidosis at 14, metabolic acidosis with pH of 6.8 and hypercapnia due to respiratory compensation at PCO2 of 9.5 mmHg. Patient is awake, follows commands minimally and answers few yes and no questions. Acute renal failure with a creatinine of 3.9. Has received cefepime, vancomycin and 1 L of crystalloid with a right internal jugular central venouscatheter in place. Upon my assessment her blood pressure is 80/58 mmHg with a heart rate of 117, irregularly irregular and pulse ox of 74%. She is on bear hugger. White blood cell count is 22,000. Has positive UA. There was a question of pneumoperitoneum on the x-ray of the abdomen. CT of the abdomen didnot confirm that finding. A general surgery consult is awaited. Patient will be broadened to Zosyn and Vanco given correction placement. Concern is about ischemic bowel. Also has diarrhea. No blood was reported in the stool. C. difficile toxin and stool has been sent. Patient received 3 A of sodium bicarbonate in the ER and additional 2 more ampules of sodium bicarbonate has been ordered. Potassium is mildly elevated at 5.0. She will be ordered a gram of calcium chloride and D50/insulin. Urine blood cultures have been sent. Patient is receiving her second and third liter of crystalloid with a pressure bag and Levophed is being started at 5 mics per minute via the central venous catheter. She is DNR/DNI. Patient is going to be admitted to medical ICU room #317. Patient is being admitted to medical ICU room #317She is DNR/DNIPatient has profound gram-negative sepsis with severe metabolic and lactic acidosisShe is awake, interactive minimally and follows some commandHas lactic acid of 14.8Has received 1 L of crystalloid so farWill be ordered 30 mL/kg body weight fluid resuscitation and repeat lactate within 3 hoursUrine and blood cultures have been sentPatient received vancomycin and cefepime in the ERBroad-spectrum antibiotic coverage with vancomycin and ZosynWe will check C. difficile toxin and stool given diarrhea nursing homeWhite count is elevated 22,000Chest x-ray did not reveal any pneumonia/consolidation/atelectasisUA is positive for sediment consistent with UAHas profound hypercapnia with a CO2 of 9.5 mmol manifesting adequate respiratorycompensation for profound lactic and metabolic acidosispH is 6.8Recheck ABGPatient is received total of 5 ampoules of sodium bicarbonate to a total of 250 mEqGeneral surgery consult is being quested for question pneumoperitoneum on the chest x-rayCT of the abdomen pelvis report is awaitedConcern for bowel ischemiaHas significant hypothermia with a temperature of 33.1 CPatient is on bear hugger 09/27/2019Severe lactic acidosis, secondary to metformin use?, Case discussed with nephrology extensively.Hemodialysis catheter was placed yesterday, the patient had a hemodialysis yesterday, and plan is to do hemodialysis todayAcidosis improved, also the lactic acid has been trending down. Monitor electrolytes, monitor lactate. Plan is to replace electrolytes during hemodialysisShortness of breath is better, patient currently on nasal cannula, keep O2 sats more than 90%Sepsis?, Source?, Continue Zosyn and vancomycin IV for now, MRSA screen came back positive, blood cultures are no growth today. White blood cell count is 19.7Continue heparin for DVT prophylaxisKeep map more than 65 mmhg, currently patient is on Levophed and vasopressin drip, will try to wean pressors if possible.Continue sliding scale insulin, monitor glucoseWe will see if she can swallow today to see if we can start dietBicarb drip has been stopped, acidemia resolving She is DNR/DNICritical care time 31 minutes at 1251 RPT #:[id number] OF REPORTPRProgress Sdhq9520-85-10X14:48:00G.[id number] for patient gabdQKICKCJSOWMDJG0082-52-38F26:51:18 [facility] 2019-09-27 07:11:00 [id number]/tLzduC dKQkfLd3H6uCtGh3h CVPoobM23lS7TrDH6rWPO3mGQE3589-39-89I57:11:00 [facility]Ne[facility] Progress NoteREPORT#:[id number] REPORT STATUS: SignedDATE:09/27/19 TIME: 0711 PATIENT: MAC AGUSTIN UNIT #: [id number]#: [id number] [address] AGE: 74 SEX: F ATTEND: Joel Myers [facility] AUTHOR: Rabia Aguilar MD * ALL edits or amendments must be made on the electronic/computer document * SubjectiveChief Complaint:AMS/Lactic acidosis/AKIUnable to obtain: patient conditionComments:Patient seen and evaluated, HPI no change from initial, more alert, answer simple questions Review of SystemsUnable to obtain due to:Patient's condition Objective GeneralVS/I O:Vital Signs:Date Time Temp Pulse Resp B/P B/P Pulse O2 O2 Flow FiO2 Mean Ox Delivery Rate04/17 0350 96 High flow 11.462434 nasal otddefa24/17 0016 92 Nasal 5.740928 qpydgic37/16 1999 Nasal 3.838035 gkzehqj10/16 1999 36.6 92 21 128/56 80 92 Nasal 3.116609 zauvlzs09/16 1900 96 27 118/60 86 9204/16 1855 97 27 104/59 79 9404/16 1850 96 25 115/56 78 9404/16 1845 98 23 127/59 85 9404/16 1844 97 22 118/62 84 9404/16 1841 97 25 71/52 57 9404/16 1836 97 24 127/80 97 9604/16 1830 96 30 106/77 88 9004/16 1820 96 26 111/56 79 7804/16 1815 96 28 93/51 65 9504/16 1812 94 37 129/51 74 9604/16 1810 93 60 75/52 60 9504/16 1804 97 22 136/088 873 2366/16 1800 94 29 9604/16 1756 97 35 110/74 89 9604/16 1750 96 33 114/72 84 9704/16 1746 101 27 110/50 72 8204/16 1745 98 28 9304/16 1740 98 24 109/46 67 9304/16 1735 94 36 104/51 73 9604/16 1730 95 26 8704/16 1725 98 29 109/55 77 9404/16 1720 101 32 144/57 82 9604/16 1719 98 37 124/55 73 9604/16 1715 95 32 9404/16 1711 97 54 226/956 002 8568/16 1706 98 38 183/171 896 7303/16 1700 97 37 113/54 78 9804/16 1655 95 32 115/55 77 8704/16 1650 97 28 117/58 83 9804/16 1645 94 29 108/55 75 9804/16 1640 94 30 110/53 77 9704/16 1639 95 29 116/72 89 9704/16 1630 86 33 125/54 78 8804/16 1625 95 23 104/55 76 9504/16 1620 96 25 105/53 76 9504/16 1616 96 26 106/53 76 9604/16 1615 94 29 9504/16 1610 96 29 104/50 67 9504/16 1606 94 34 90/46 66 9704/16 1601 94 28 151/64 92 7304/16 1600 93 28 7704/16 1600 37.3 100 Room air04/16 1600 36.7 94 32 125/54 77 94 Nasal 3.174572 ugwqsqm94/16 1556 96 30 85/57 64 9204/16 1550 97 29 94/50 67 9704/16 1546 96 27 102/47 65 9804/16 1545 96 20 9804/16 1541 96 26 134/711 431 9681/16 1536 97 26 9704/16 1535 97 25 97/49 70 9604/16 1530 99 27 118/58 83 9604/16 1525 99 25 101/54 72 9704/16 1521 071 19 6702/16 1520 102 31 113/51 73 9604/16 1517 100 22 156/64 92 44389/16 1515 100 24 182/145 992 5952/16 1510 101 29 120/56 81 55289/16 1505 132 32 125/53 76 9804/16 1500 103 19 113/63 80 49920/16 1450 106 25 104/55 74 9604/16 1446 641 87 9938/16 1446 105 26 104/65 76 9804/16 1445 169 97 8985/16 1444 109 25 167/523 922 5662/16 1436 109 19 130/56 80 9904/16 1430 110 12 102/53 75 9904/16 1425 114 14 100/52 71 9904/16 1420 120 26 101/50 67 25443/16 1415 116 22 96/55 72 9804/16 1410 116 22 89/51 65 9804/16 1405 118 24 78/46 57 9804/16 1400 118 21 82/49 59 9904/16 1355 122 21 79/52 61 9804/16 1350 123 22 77/45 56 9804/16 1345 123 22 84/42 58 9804/16 1340 120 18 68/39 48 9804/16 1335 115 23 66/40 46 9804/16 1331 114 23 65/39 47 9804/16 1330 116 22 69/34 44 9804/16 1315 115 19 91/45 65 9904/16 1312 181 16 5740/16 1300 115 21 108/52 75 9904/16 1245 114 19 104/53 76 9904/16 1240 114 20 97/51 71 9804/16 1235 113 20 93/55 71 9904/16 1230 110 25 86/47 62 9804/16 1225 109 21 80/41 55 9804/16 1222 108 22 81/40 57 9904/16 1220 106 31 74/39 51 9904/16 1215 106 21 90/54 69 07069/16 1212 101 28 84/46 60 9904/16 1210 102 25 86/49 63 9904/16 1205 106 21 95/55 71 9804/16 1200 35.904/16 1200 103 21 92/53 70 9904/16 1159 104 21 100/54 73 9904/16 1150 105 23 81/45 59 9804/16 1145 106 34 83/46 58 26492/16 1140 105 21 89/51 66 46503/16 1135 118 21 100/54 71 02416/16 1130 106 20 97/52 71 9904/16 1125 108 21 98/54 70 9904/16 1120 104 20 98/51 69 9904/16 1115 105 20 93/50 68 9804/16 1110 106 20 92/52 69 9804/16 1105 105 20 89/53 68 9904/16 1100 106 20 89/49 66 9904/16 1055 106 20 76/41 54 9904/16 1050 109 21 75/39 52 9904/16 1047 109 20 74/42 54 9904/16 1045 111 21 74/43 54 9904/16 1030 97 22 90/52 66 9804/16 1021 98 23 9804/16 0900 33.404/16 0815 Nasal 3.886050 mxuijbq37/16 0720 101 18 77/50 59 24 hour I O ending at 0700: 09/26 0700 09/25 1900 Intake Total 0 Output Total Balance 0 Intake, 0 Hemodialysis Patient 63.4 kg Weight Weight Bed scale Measurement Method MedicationsActive Meds + DC'd Last 24 HrsHeparin Sodium 5,000 UNIT Q12HR SUBQ Magnesium Sulfate 50 ML ONCE ONE IV (DC) Sodium Phosphate 20 MMOL ONCE ONE IV (DC) Sodium Chloride 250 MLPiperacillin Sod/Tazobactam Sod 3.375 GM Q12H IV Sodium Chloride 100 MLSodium Chloride 1,000 ML .Q8H IV (DC) Piperacillin Sod/Tazobactam Sod 3.375 GM Q8H IV (DC) Sodium Chloride 100 MLPhenylephrine HCl 30 MG ASDIR IV (CKD) Sodium Chloride 247 MLSodium Chloride 500 ML ONCE ONE IV Insulin Human Lispro 0 Q6HR SUBQ Sodium Chloride 1,000 ML BOLUS ONCE IV (DC) Vasopressin 20 UNIT ASDIR IV (CKD) Sodium Chloride 100 MLMiscellaneous Information 1 EACH ASDIR IV (CKD) Sodium Bicarbonate 200 MEQ ONCE ONE IV (DC) Sodium Bicarbonate 0 .STK-MED ONE IV (DC) Sodium Bicarbonate 100 MEQ ONCE ONE IV (DC) Albumin Human 12.5 GM ASDIR PRN IV Heparin Sodium (Porcine) 1,000 UNIT ASDIR PRN DIALYSIS Mannitol 12.5 GM ASDIR PRN IV Sodium Chloride 2,000 ML ASDIR PRN IV Sodium Chloride 10 ML ASDIR PRN IV Sodium Chloride 250 ML ASDIR PRN IV Magnesium Sulfate 50 ML Q6H IV (DC) Sodium Bicarbonate 150 ML Q11H IV (DC) Dextrose/Water 1,000 MLCalcium Chloride 1 GM ONCE ONE IV (CAN) Sodium Chloride 100 MLInsulin Human Lispro 0 AC HS SUBQ (DC) Insulin Human Regular 10 UNITS ONCE ONE IV (CAN) Dextrose/Water 50 ML STAT STA IV (CAN) Vancomycin HCl 750 MG Q12H IV (CAN) Sodium Chloride 250 MLNorepinephrine Bitartrate 250 ML ASDIR PRN IV Sodium Chloride 0 ASDIR PRN IV (DC) Norepinephrine Bitartrate 250 ML X1ED STA IV (DC) Potassium Chloride/Dextrose/Sod Cl 1,000 ML X1ED STA IV (DC) Acetaminophen 650 MG Q4H PRN PRN PO (DC) Albuterol/Ipratropium 3 ML RTQ4H PRN PRN INH (DC) Dextrose/Water 125 ML ASDIR PRN IV (DC) Dextrose/Water 250 ML ASDIR PRN IV (DC) Glucagon 1 MG ASDIR PRN IM (DC) Lorazepam 1 MG Q4H PRN PRN IV (DC) Morphine Sulfate 2 MG Q4H PRN PRN IV (DC) Ondansetron HCl 4 MG Q6H PRN PRN IV (DC) Sterile Water 1.2 ML ASDIR IM (DC) Sodium Chloride 0 ASDIR PRN IV Magnesium Sulfate 100 ML X1ED STA IV (DC) Sodium Chloride 1,000 ML X1ED STA IV (DC) Sodium Chloride 0 ASDIR PRN IV (DC) Physical ExamGeneral appearance: alert, no acute distressHead/eyes: atraumatic, normocephalicENT: normal noseNeck: supple/no meningismusCardiovascular: normal heart sounds, no rubRespiratory: aerating well, symmetric expansionAbdomen: softGenitourinary: ballard, urineExtremities: no edemaMusculoskeletal: normal inspectionNeuro/FAST FOOD ATTENDANT: altered mental statusSkin: dry ResultsFindings/Data:Laboratory Tests 09/26 09/25 09/25 09/25 0238 1732 1509 1503 Blood Gas Puncture Site L Rad R Fem R Fem R Brach ABG pH (7.35 - 7.45) 7.408 7.635 *H 7.674 *H ABG pCO2 (35 - 45 mmHg) 24.8 *L 23.8 *L 17.1 *L ABG pO2 (80 - 100 mmHg) 55 L 52 L 86 ABG HCO3 (22.0 - 26.0 mmol/L) 15.5 L 25.3 19.9 L ABG Total CO2 16 26 20 ABG O2 Saturation (90 - 100 %) 88 L 93 99 ABG Base Excess (-4 - 4 mmol/L) -9.0 L 4.0 0.0 VBG pH (7.33 - 7.45) 7.55 H VBG pCO2 (43 - 47 mmHg) 22 L VBG pO2 (10 - 50 mmHg) 37 VBG HCO3 (22 - 27 mmol/L) 19.4 L VBG Total CO2 20 VBG O2 Sat (Calc) (60 - 80 %) 80 VBG Base Excess (-4.0 - 4.0 mmol/L) -3.0 VBG Temperature (F) 98.6 Temperature (F) 38.0 98.6 98.6 O2 Delivery Device Cannula Cannula Cannula Cannula 09/25 09/25 0951 0452 Blood Gas Puncture Site R Rad R Rad ABG pH (7.35 - 7.45) 6.787 *L 6.871 *L ABG pCO2 (35 - 45 mmHg) 13.7 *L 9.5 *L ABG pO2 (80 - 100 mmHg) 158 H 133 H ABG HCO3 (22.0 - 26.0 mmol/L) 2.1 L 1.9 L ABG Total CO2 < 5 < 5 ABG O2 Saturation (90 - 100 %) 96 97 ABG Base Excess (-4 - 4 mmol/L) < -30.0 L < -30.0 L Temperature (F) 98.6 91.7 O2 Delivery Device Cannula Room Air Laboratory Tests 09/26 09/26 09/26 09/26 0544 0515 0500 0115 Chemistry Sodium (134 - 147 mEq/L) 143 Potassium (3.4 - 5.0 mEq/L) 3.5 Chloride (100 - 108 mEq/L) 102 Carbon Dioxide (21 - 33 mEq/L) 15 L Anion Gap (0 - 20) 30 H BUN (7 - 18 mg/dL) 16 Creatinine (0.6 - 1.3 mg/dL) 1.2 Glomerular Filtr Rate (70 - 80) 44.2 L Glucose (70 - 110 mg/dL) 137 H POC Glucose (70 - 110 MG/DL) 146 H Lactic Acid (0.4 - 1.9 mmol/L) 3.5 H 6.2 *H Calcium (8.0 - 10.5 mg/dL) 6.7 L Ionized Calcium Jef[place] (1.12 - 1.32 MMOL/L) 0.99 L Phosphorus (2.5 - 4.9 MG/DL) 3.9 Magnesium (1.8 - 2.4 mg/dL) 2.50 H 09/26 09/26 09/25 09/25 09/25 0115 0013 2145 2145 2145Chemistry Sodium (134 - 147 mEq/L) 143 Potassium (3.4 - 5.0 mEq/L) 3.6 Chloride (100 - 108 mEq/L) 101 Carbon Dioxide (21 - 33 mEq/L) 20 L Anion Gap (0 - 20) 26 H BUN (7 - 18 mg/dL) 13 Creatinine (0.6 - 1.3 mg/dL) 1.1 Glomerular Filtr Rate (70 - 80) 48.8 L Glucose (70 - 110 mg/dL) 119 H POC Glucose (70 - 110 MG/DL) 117 H Lactic Acid (0.4 - 1.9 mmol/l) 7.8 *H Calcium (8.0 - 10.5 mg/dL) 6.9 L Ionized Calcium Jefry (1.12 - 1.32 0.96 L 0.96 LMMOL/L) Phosphorus (2.5 - 4.9 MG/DL) 2.3 L Magnesium (1.8 - 2.4 mg/dL) 2.50 H LDL Cholesterol Measurd (0 - 100 67mg/dL) 09/25 09/25 09/25 09/25 2145 1827 1655 1655 Chemistry Sodium (134 - 147 mEq/L) 142 141 Potassium (3.4 - 5.0 mEq/L) 3.7 3.9 Chloride (100 - 108 mEq/L) 101 100 Carbon Dioxide (21 - 33 mEq/L) 21 25 Anion Gap (0 - 20) 24 H 20 BUN (7 - 18 mg/dL) 10 14 Creatinine (0.6 - 1.3 mg/dL) 1.0 1.1 Glomerular Filtr Rate (70 - 80) 54.5 L 48.8 L Glucose (70 - 110 mg/dL) 103 137 H POC Glucose (70 - 110 MG/DL) 126 H Lactic Acid (0.4 - 1.9 mmol/L) 9.2 *H Calcium (8.0 - 10.5 mg/dL) 7.0 L 7.6 L Ionized Calcium Jefry (1.12 - 1.32 MMOL/L) 0.98 L Phosphorus (2.5 - 4.9 MG/DL) 1.6 L 1.2 L Magnesium (1.8 - 2.4 mg/dL) 2.40 1.50 L Troponin I (0.000 - 0.045 ng/mL) 0.284 *H 09/25 09/25 09/25 09/25 1207 1205 1000 1000Chemistry Sodium (134 - 147 mEq/L) 145 Potassium (3.4 - 5.0 mEq/L) 4.8 Chloride (100 - 108 mEq/L) 102 Carbon Dioxide (21 - 33 mEq/L) 4 L Anion Gap (0 - 20) 44 H BUN (7 - 18 mg/dL) 86 H Creatinine (0.6 - 1.3 mg/dL) 5.1 H Glomerular Filtr Rate (70 - 80) 8.3 L Glucose (70 - 110 mg/dL) 147 H POC Glucose (70 - 110 MG/DL) 191 H > 600 H Lactic Acid (0.4 - 1.9 mmol/L) 21.3 *H Calcium (8.0 - 10.5 mg/dL) 7.8 L Ionized Calcium Jefry (1.12 - 1.32 MMOL/L) 1.07 L Phosphorus (2.5 - 4.9 MG/DL) 9.2 *H Magnesium (1.8 - 2.4 mg/dL) 2.90 H Total Bilirubin (<1.5 MG/DL) 0.4 AST (15 - 37 IUnit/L) 43 H ALT (15 - 65 IUnit/L) 26 Total Alk Phosphatase (20 - 125 IUnit/L) 52 Total Protein (6.4 - 8.2 g/dL) 5.5 L Albumin (3.4 - 5.0 g/dL) 2.40 L 09/25 09/25 09/25 09/25 09/25 0730 0726 0625 0355 0348 Chemistry POC Glucose (70 - 110 MG/DL) 107 147 H Lactic Acid (0.4 - 1.9 mmol/l) 19.1 *H 14.8 *H Troponin I (0.000 - 0.045 ng/mL) 0.033 09/25 09/25 0345 034 Chemistry Sodium (134 - 147 mEq/L) 144 Potassium (3.4 - 5.0 mEq/L) 3.2 L Chloride (100 - 108 mEq/L) 114 H Carbon Dioxide (21 - 33 mEq/L) 4 L Anion Gap (0 - 20) 29 H BUN (7 - 18 mg/dL) 69 H Creatinine (0.6 - 1.3 mg/dL) 3.9 H Glomerular Filtr Rate (70 - 80) 11.4 L Glucose (70 - 110 mg/dL) 100 Calcium (8.0 - 10.5 mg/dL) 5.6 *L Magnesium (1.8 - 2.4 mg/dL) 0.90 *L Total Bilirubin (<1.5 MG/DL) 0.2 Direct Bilirubin (0.0 - 0.30 MG/DL) < 0.10 Indirect Bilirubin (MG/DL) 0.10 AST (15 - 37 IUnit/L) 7 L ALT (15 - 65 IUnit/L) 12 L Total Alk Phosphatase (20 - 125 IUnit/L) 39 Troponin I (0.000 - 0.045 ng/mL) 0.029 B-Natriuretic Peptide (0 - 100 PG/ML) 304.2 H Total Protein (6.4 - 8.2 g/dL) 5.1 L Albumin (3.4 - 5.0 g/dL) 2.30 L Lipase (73 - 393 IUnit/L) 139 TSH (0.42 - 5.47 IU/mL) 0.68 Laboratory Tests 09/25 0345 Coagulation INR (0.8 - 1.2) 1.1 PTT ([place]) (25.0 - 39.5 Seconds) 22.2 L PT Patient/Control Mix (9.3 - 12.9 SECONDS) 11.7 Laboratory Tests 09/26 09/26 09/25 0500 0115 1655 Hematology WBC (4.5 - 11.0 x10 3/uL) 19.78 H 21.56 H 21.91 H RBC (3.54 - 5.02 x10 6/uL) 3.17 L 3.14 L 3.45 L Hgb (11.0 - 15.0 g/dL) 9.7 L 9.5 L 10.4 L Hct (33.0 - 45.0 %) 28.6 L 28.3 L 30.2 L MCV (81.0 - 99.0 fL) 90.2 90.1 87.5 MCH (27.0 - 33.0 pg) 30.6 30.3 30.1 MCHC (33.0 - 37.0 g/dL) 33.9 33.6 34.4 RDW (11.5 - 14.5 %) 13.6 13.4 13.3 Plt Count (150 - 400 x10 3/uL) 156 159 214 MPV (7.0 - 9.0 fL) 11.7 H 11.7 H 12.2 H Neut % (Auto) (56.0 - 77.0 %) 88.6 H 90.8 H Lymph % (Auto) (14.0 - 32.0 %) 2.8 L 4.8 L [place] % (Auto) (4.8 - 9.0 %) 6.5 3.2 L Eos % (Auto) (0.3 - 3.7 %) 1.1 0.1 L Baso % (Auto) (0.0 - 2.0 %) 0.2 0.1 Neut # (Auto) (2.0 - 7.6 x10 3/uL) 19.09 H 19.89 H Lymph # (Auto) (1.0 - 3.8 x10 3/uL) 0.61 L 1.06 [place] # (Auto) (0.1 - 0.8 x10 3/uL) 1.41 H 0.70 Eos # (Auto) (0.0 - 0.2 x10 3/uL) 0.23 H 0.02 Baso # (Auto) (0.0 - 0.2 x10 3/uL) 0.04 0.03 Abs Immat Gran (auto) (0.00 - 0.03 x10 3/uL) 0.18 H 0.21 H Add Manual Diff NO NO Immature Gran % (0.0 - 2.0 %) 0.8 1.0 Nucleated RBC % (0 - 0 %) 0.0 0.0 Nucleated RBCs # (Man) (0.0 - 0.1 x10 3/uL) 0.00 0.00 09/25 09/25 0933 0345 Hematology WBC (4.5 - 11.0 x10 3/uL) 26.44 H 22.50 H RBC (3.54 - 5.02 x10 6/uL) 3.50 L 4.48 Hgb (11.0 - 15.0 g/dL) 10.5 L 13.5 Hct (33.0 - 45.0 %) 36.1 44.2 MCV (81.0 - 99.0 fL) 103.1 H 98.7 MCH (27.0 - 33.0 pg) 30.0 30.1 MCHC (33.0 - 37.0 g/dL) 29.1 L 30.5 L RDW (11.5 - 14.5 %) 13.5 13.4 Plt Count (150 - 400 x10 3/uL) 269 331 MPV (7.0 - 9.0 fL) 11.7 H 12.1 H Neut % (Auto) (56.0 - 77.0 %) 81.1 H Lymph % (Auto) (14.0 - 32.0 %) 4.8 L [place] % (Auto) (4.8 - 9.0 %) 12.3 H Eos % (Auto) (0.3 - 3.7 %) 0.0 L Baso % (Auto) (0.0 - 2.0 %) 0.2 Neut # (Auto) (2.0 - 7.6 x10 3/uL) 21.47 H Lymph # (Auto) (1.0 - 3.8 x10 3/uL) 1.26 [place] # (Auto) (0.1 - 0.8 x10 3/uL) 3.25 H Eos # (Auto) (0.0 - 0.2 x10 3/uL) 0.00 Baso # (Auto) (0.0 - 0.2 x10 3/uL) 0.05 Abs Immat Gran (auto) (0.00 - 0.03 x10 3/uL) 0.41 H Add Manual Diff NO YES Immature Gran % (0.0 - 2.0 %) 1.6 Seg Neutrophils % (37 - 69 %) 90.9 H Lymphocytes % (Manual) (23 - 55 %) 4.6 L Monocytes % (Manual) (0 - 10 %) 3.6 Nucleated RBC % (0 - 0 %) 0.0 Myelocytes (0.0 - 0.0 %) 0.9 H Nucleated RBCs # (Man) (0.0 - 0.1 x10 3/uL) 0.00 Platelet Estimate (ADEQUATE THOUSAND) Adequate Plt Morphology Comment LARGE PLATELETS Poikilocytosis 2+ Laboratory Tests 09/25 1000 Serology Hepatitis A IgM Ab (NON REACT. INDEX) NON REACTIVE Hep Bs Antigen (NonReactive INDEX) NON REACTIVE Hep Bs Antibody (Immunity>9.9 mIU/mL) 688.1 Hep B Core IgM Ab (NON REACT. INDEX) NON REACTIVE Hepatitis C Antibody (NON REACT. INDEX) NON REACTIVE Laboratory Tests 09/25 0415 Urines Urine Color (YEL/STRAW) YELLOW Urine Appearance (CLEAR) SL CLOUDY Urine pH (5.0 - 7.0) 5.0 Ur Specific [place] (1.005 - 1.030) 1.011 Urine Protein (NEGATIVE) 2+ H Urine Glucose (UA) (NEGATIVE) 2+ H Urine Ketones (NEGATIVE) TRACE H Urine Blood (NEGATIVE) 1+ H Urine Nitrite (NEGATIVE) NEGATIVE Urine Bilirubin (NEGATIVE) NEGATIVE Urine Urobilinogen (0.2 - 1.0 mg/dL) 0.2 Ur Leukocyte Esterase (NEGATIVE) TRACE H Urine RBC (0 - 3 RBC/HPF) 4-10 Urine WBC (0 - 3 WBC/HPF) 4-9 H Ur Squamous Epith Cells (NONE SEEN /HPF) 0-5 Urine Bacteria (NONE SEEN /HPF) 1+ H Urine Mucus (NONE SEEN /LPF) TRACE Urine Yeast (NONE /HPF) 1+ H Microbiology Date/Time Procedure - Status Source Growth 09/25 0730 MRSA DNA Surveillance Screen - COMP NASAL Recent Impressions:RADIOLOGY - XR CHEST 1 V 09/25 0405 Report Impression - Status: SIGNED Entered: 09/26/2019 0413 IMPRESSION: Mildly hyperinflated, but clear lungs. Lucency beneath the left hemidiaphragm likely related to a mildlydilated gas-filled stomach. An upright view of the abdomen would beconfirmatory and better exclude pneumoperitoneum. SL: TPAINTER-HImpression By: Bridget Edward M.D.RADIOLOGY - XR CHEST 1 V 09/25 0532 Report Impression - Status: SIGNED Entered: 09/26/2019 0546 IMPRESSION: Hypoinflation associated with interval right IJ central line insertiontip overlying the atriocaval junction without pneumothorax. SL: TPAINTER-HImpression By: Bridget Edward M.D.CAT SCAN - CT C-SPINE W/O CONT 09/25 0546 Report Impression - Status: SIGNED Entered: 09/26/2019 0607 IMPRESSION: Mild cervical spondylosis and facet arthrosis without acute fractureor dislocation. Mild chronic bilateral mastoiditis. SL: TPAINTER-HImpression By: Bridget Edward M.D.CAT SCAN - CT HEAD/BRAIN W/O CONT 09/25 0546 Report Impression - Status: SIGNED Entered: 09/26/2019 0612 IMPRESSION: Mild to moderate diffuse atrophy is present associated with mildnonspecific periventricular low attenuation most consistent with oldmicroangiopathic ischemic change. No acute intracranial abnormality. Small old appearing lacunar infarctions in both basal ganglia and leftthalamus. Mild chronic sinusitis. Minimal chronic bilateral mastoiditis. SL: TPAINTER-HImpression By: Bridget Edward M.D.CAT SCAN - CT CHEST W/O CONTRAST 09/25 545 Report Impression - Status: SIGNED Entered: 09/26/2019631 IMPRESSION: Nonspecific nonobstructive bowel gas pattern associated with milddiffuse colonic wall thickening either related to underdistention ornonspecific colitis. Mild submucosal fat seen in the colon suggestchronic colonic inflammatory change. Mild sigmoid diverticulosis. Moderately dilated stomach with areas of asymmetric wall thickening inthe antrum and greater gastric curvature that may represent gastritisor underlying neoplasm. Follow-up upper GI or endoscopy may behelpful. Additionally, a radionuclide gastric emptying study may behelpful if gastroparesis is suspected clinically. Mild left renal cortical atrophy associated with a small mildlycomplex cyst. Further evaluation may be obtained with renalultrasound. Tiny focus of gas in the urinary bladder may represent recentcatheterization or cold fistula with bowel. Mild diffuse anasarca. Normal size heart associated with moderate coronary arterycalcifications. Mild hyperinflation associated with subsegmental atelectasis andscarring in both lungs greatest in the lung bases. Mild to moderate abdominal aortic atherosclerosis associated withinfrarenal aneurysm measuring 3.1 cm maximum transverse dimension. Mild soft tissue gas in the right anterior abdominal and pelvic walllikely related to recent medication injection. Postoperative change of cholecystectomy. SL: TPAINTER-HImpression By: Bridget - Amadeo Edward M.D.CAT SCAN - CT ABD PELVIS W/O CONT 09/25 545 Report Impression - Status: SIGNED Entered: 09/26/2019631 IMPRESSION: Nonspecific nonobstructive bowel gas pattern associated with milddiffuse colonic wall thickening either related to underdistention ornonspecific colitis. Mild submucosal fat seen in the colon suggestchronic colonic inflammatory change. Mild sigmoid diverticulosis. Moderately dilated stomach with areas of asymmetric wall thickening inthe antrum and greater gastric curvature that may represent gastritisor underlying neoplasm. Follow-up upper GI or endoscopy may behelpful. Additionally, a radionuclide gastric emptying study may behelpful if gastroparesis is suspected clinically. Mild left renal cortical atrophy associated with a small mildlycomplex cyst. Further evaluation may be obtained with renalultrasound. Tiny focus of gas in the urinary bladder may represent recentcatheterization or cold fistula with bowel. Mild diffuse anasarca. Normal size heart associated with moderate coronary arterycalcifications. Mild hyperinflation associated with subsegmental atelectasis andscarring in both lungs greatest in the lung bases. Mild to moderate abdominal aortic atherosclerosis associated withinfrarenal aneurysm measuring 3.1 cm maximum transverse dimension. Mild soft tissue gas in the right anterior abdominal and pelvic walllikely related to recent medication injection. Postoperative change of cholecystectomy. SL: TPAINTER-HImpression By: [email or web address] - Amadeo Edward M.D.RADIOLOGY - XR CHEST 1 V 09/25 1231 Report Impression - Status: SIGNED Entered: 09/26/2019 1252 IMPRESSION:Right IJ catheter with its tip in the superior vena cava just abovethe level of the right atrium.No acute cardiopulmonary findings identified.Impression By: GaryCER - Tracy Johnson M.D.RADIOLOGY - XR CHEST 1 V 09/26 0748 Report Impression - Status: SIGNED Entered: 09/27/2019 0756 IMPRESSION: No acute abnormality as above discussed. SL: [id number] By: [email or web address] - Gian Alvarenga M.D. Laboratory Tests 09/26 09/25 09/25 09/25 0238 1732 1509 1503 Blood Gas Puncture Site L Rad R Fem R Fem R Brach ABG pH (7.35 - 7.45) 7.408 7.635 *H 7.674 *H ABG pCO2 (35 - 45 mmHg) 24.8 *L 23.8 *L 17.1 *L ABG pO2 (80 - 100 mmHg) 55 L 52 L 86 ABG HCO3 (22.0 - 26.0 mmol/L) 15.5 L 25.3 19.9 L ABG Total CO2 16 26 20 ABG O2 Saturation (90 - 100 %) 88 L 93 99 ABG Base Excess (-4 - 4 mmol/L) -9.0 L 4.0 0.0 VBG pH (7.33 - 7.45) 7.55 H VBG pCO2 (43 - 47 mmHg) 22 L VBG pO2 (10 - 50 mmHg) 37 VBG HCO3 (22 - 27 mmol/L) 19.4 L VBG Total CO2 20 VBG O2 Sat (Calc) (60 - 80 %) 80 VBG Base Excess (-4.0 - 4.0 mmol/L) -3.0 VBG Temperature (F) 98.6 Temperature (F) 38.0 98.6 98.6 O2 Delivery Device Cannula Cannula Cannula Cannula 09/25 0951 Blood Gas Puncture Site R Rad ABG pH (7.35 - 7.45) 6.787 *L ABG pCO2 (35 - 45 mmHg) 13.7 *L ABG pO2 (80 - 100 mmHg) 158 H ABG HCO3 (22.0 - 26.0 mmol/L) 2.1 L ABG Total CO2 < 5 ABG O2 Saturation (90 - 100 %) 96 ABG Base Excess (-4 - 4 mmol/L) < -30.0 L Temperature (F) 98.6 O2 Delivery Device Cannula Laboratory Tests 09/26 09/26 09/26 09/26 09/25 0544 0115 0115 0013 2145Chemistry Sodium (134 - 147 mEq/L) 143 Potassium (3.4 - 5.0 mEq/L) 3.6 Chloride (100 - 108 mEq/L) 101 Carbon Dioxide (21 - 33 mEq/L) 20 L Anion Gap (0 - 20) 26 H BUN (7 - 18 mg/dL) 13 Creatinine (0.6 - 1.3 mg/dL) 1.1 Glomerular Filtr Rate (70 - 80) 48.8 L Glucose (70 - 110 mg/dL) 119 H POC Glucose (70 - 110 MG/DL) 146 H 117 H Lactic Acid (0.4 - 1.9 mmol/L) 6.2 *H 7.8 *H Calcium (8.0 - 10.5 mg/dL) 6.9 L Ionized Calcium [place]ef[place] (1.12 - 1.32 0.96 LMMOL/L) Phosphorus (2.5 - 4.9 MG/DL) 2.3 L Magnesium (1.8 - 2.4 mg/dL) 2.50 H 09/25 09/25 09/25 09/25 09/25 2145 2145 2145 1827 1655Chemistry Sodium (134 - 147 mEq/L) 142 Potassium (3.4 - 5.0 mEq/L) 3.7 Chloride (100 - 108 mEq/L) 101 Carbon Dioxide (21 - 33 mEq/L) 21 Anion Gap (0 - 20) 24 H BUN (7 - 18 mg/dL) 10 Creatinine (0.6 - 1.3 mg/dL) 1.0 Glomerular Filtr Rate (70 - 80) 54.5 L Glucose (70 - 110 mg/dL) 103 POC Glucose (70 - 110 MG/DL) 126 H Lactic Acid (0.4 - 1.9 mmol/L) 9.2 *H Calcium (8.0 - 10.5 mg/dL) 7.0 L Ionized Calcium [place]ef[place] (1.12 - 1.32 0.96 LMMOL/L) Phosphorus (2.5 - 4.9 MG/DL) 1.6 L Magnesium (1.8 - 2.4 mg/dL) 2.40 Troponin I (0.000 - 0.045 ng/mL) 0.284 *H LDL Cholesterol Measurd (0 - 100 67mg/dL) 09/25 09/25 09/25 09/25 09/25 1655 1000 1000 0730 0726Chemistry Sodium (134 - 147 mEq/L) 141 145 Potassium (3.4 - 5.0 mEq/L) 3.9 4.8 Chloride (100 - 108 mEq/L) 100 102 Carbon Dioxide (21 - 33 mEq/L) 25 4 L Anion Gap (0 - 20) 20 44 H BUN (7 - 18 mg/dL) 14 86 H Creatinine (0.6 - 1.3 mg/dL) 1.1 5.1 H Glomerular Filtr Rate (70 - 80) 48.8 L 8.3 L Glucose (70 - 110 mg/dL) 137 H 147 H POC Glucose (70 - 110 MG/DL) 107 Lactic Acid (0.4 - 1.9 mmol/L) 21.3 *H Calcium (8.0 - 10.5 mg/dL) 7.6 L 7.8 L Ionized Calcium [place] (1.12 - 1.32 0.98 L 1.07 LMMOL/L) Phosphorus (2.5 - 4.9 MG/DL) 1.2 L 9.2 *H Magnesium (1.8 - 2.4 mg/dL) 1.50 L 2.90 H Total Bilirubin (<1.5 MG/DL) 0.4 AST (15 - 37 IUnit/L) 43 H ALT (15 - 65 IUnit/L) 26 Total Alk Phosphatase (20 - 125 52IUnit/L) Troponin I (0.000 - 0.045 ng/mL) 0.033 Total Protein (6.4 - 8.2 g/dL) 5.5 L Albumin (3.4 - 5.0 g/dL) 2.40 L Laboratory Tests 09/26 09/26 09/25 09/25 0500 0115 1655 0933Hematology WBC (4.5 - 11.0 x10 3/uL) 19.78 H 21.56 H 21.91 H 26.44 H RBC (3.54 - 5.02 x10 6/uL) 3.17 L 3.14 L 3.45 L 3.50 L Hgb (11.0 - 15.0 g/dL) 9.7 L 9.5 L 10.4 L 10.5 L Hct (33.0 - 45.0 %) 28.6 L 28.3 L 30.2 L 36.1 MCV (81.0 - 99.0 fL) 90.2 90.1 87.5 103.1 H MCH (27.0 - 33.0 pg) 30.6 30.3 30.1 30.0 MCHC (33.0 - 37.0 g/dL) 33.9 33.6 34.4 29.1 L RDW (11.5 - 14.5 %) 13.6 13.4 13.3 13.5 Plt Count (150 - 400 x10 3/uL) 156 159 214 269 MPV (7.0 - 9.0 fL) 11.7 H 11.7 H 12.2 H 11.7 H Neut % (Auto) (56.0 - 77.0 %) 88.6 H 90.8 H 81.1 H Lymph % (Auto) (14.0 - 32.0 %) 2.8 L 4.8 L 4.8 L [place] % (Auto) (4.8 - 9.0 %) 6.5 3.2 L 12.3 H Eos % (Auto) (0.3 - 3.7 %) 1.1 0.1 L 0.0 L Baso % (Auto) (0.0 - 2.0 %) 0.2 0.1 0.2 Neut # (Auto) (2.0 - 7.6 x10 3/uL) 19.09 H 19.89 H 21.47 H Lymph # (Auto) (1.0 - 3.8 x10 3/uL) 0.61 L 1.06 1.26 [place] # (Auto) (0.1 - 0.8 x10 3/uL) 1.41 H 0.70 3.25 H Eos # (Auto) (0.0 - 0.2 x10 3/uL) 0.23 H 0.02 0.00 Baso # (Auto) (0.0 - 0.2 x10 3/uL) 0.04 0.03 0.05 Abs Immat Gran (auto) (0.00 - 0.03 0.18 H 0.21 H 0.41 Hx10 3/uL) Add Manual Diff NO NO NO Immature Gran % (0.0 - 2.0 %) 0.8 1.0 1.6 Nucleated RBC % (0 - 0 %) 0.0 0.0 0.0 Nucleated RBCs # (Man) (0.0 - 0.1 0.00 0.00 0.00x10 3/uL) Laboratory Tests 09/25 1000 Serology Hepatitis A IgM Ab (NON REACT. INDEX) NON REACTIVE Hep Bs Antigen (NonReactive INDEX) NON REACTIVE Hep B Core IgM Ab (NON REACT. INDEX) NON REACTIVE Hepatitis C Antibody (NON REACT. INDEX) NON REACTIVE Microbiology Date/Time Procedure - Status Source Growth 09/25 0730 MRSA DNA Surveillance Screen - COMP NASAL Diagnosis, Assessment PlanFree Text A P:Patient seen and evaluated, discussed with care team, images and laboratories reviewed.History of dementiaHistory of rheumatoid arthritisHistory of frequent fallsHistory of frequent UTIsHistory of hypertension: Currently hypotensiveHypokalemia: We will supplementSevere hypomagnesemia we will supplementHypocalcemia: We will supplementHypoalbuminemiaSevere lactic acidosis: Etiology, could be related to septic shock, however source is unclear, rule out ischemic bowel, Zosyn, will need to review her medications if patient has been on metformin, lactic acidosis due to metformin in the setting of acute renal failure is a possibility and will do hemodialysis in the setting.Patient has been taking Metformin 1000 BID, kenneth has lactic acidosis that is induced by Metformin, discussed with deysi and ICC/Primary team will proceed with HD09/27/2019 mental status a lot better, hemodynamically more stable, pressors being weaned off, received 6 hours of hemodialysis yesterday, her last set of blood gas showed a pH of 7.40, PCO2 25, PO2 55, lactic acid 6.2 improving, sodium is 143 potassium 3.6 CO2 20 chloride 101 BUN 13 creatinine 1.1, hemoglobin this morning 9.7, white blood count 19.78 trending down, platelet 156, her clinical picture is consistent with metformin induced lactic acidosis, will do another session of hemodialysis, 4 hours, potassium 3.5, no ultrafiltration, will give 20 mmol of potassium phosphate and expectation of hypophosphatemia during hemodialysis. katie and evaluated during HD, discussed with RN and HD nurse at [address] [facility] #:[id number] OF REPORTPRProgress Vugg1859-45-78E79:11:00G.[id number] for patient ktenNYEKDABBPYRBLF8568-06-97L31:29:59 [facility] 2019-09-26 12:01:00 NUrgjcgvwuc68748833QDxkxGNsWLhXztLG8uTuX CWSARCd+wsL6G8lZ3 eLroC2QpVmygTKZG4iXJTH9fTs6838-28-53M51:01:00 [facility] ([facility])DT Operative NoteREPORT#:[id number] REPORT STATUS: SignedDATE:09/26/19 TIME: 1201 PATIENT: MAC AGUSTIN UNIT #: [id number]#: [id number] [address] AGE: 74 SEX: F ATTEND: Joel Myers [facility] AUTHOR: Mick Lin MD * ALL edits or amendments must be made on the electronic/computer document * Operative Report Operative NoteNote:HEMODYALISIS LINE PLACEMENT PROCEDURE Procedure: RIJ CVLIndication: need for vasopressors, needs for HD catheterOperator: Pia TyleroConsent: in the chart d/w nephrology, plan is to do HD day. Nephro talked to family. Date: 09/26/2019 11:45 AM Summary: Time out was called prior to beginning procedure. Using aseptic technique, the neck was prepped and draped in usual sterile fashion. Irwin already has a RIJ CVL. A guidewire was advanced thru the RIJ port CVL and then the CVL was removed. Puncture wound was made with scalpel and dilator was passedinto the track with ease. A triple lumen HD catheter was then passed over the guidewire and guidewire was removed. All 3 ports were aspirated and flushed. Thecatheter was sutured to the skin and biopatch was placed around insertion site, and then dressed in sterile fashion. Chest x-ray orderedNo immediate complicationsEstimated blood loss: less than 5 cc. at 1211 RPT #:[id number] OF REPORTOPOperative zuobnx9399-68-45I87:01:00G.PWJG87328197-6712JBGossaguue for patient jwbtMMRYUTKNTWCINN4277-35-47S44:12:16 [facility] 2019-09-26 11:48:00 EDxpwmhqibx77901778GnV7RWVJ9TzPnP4k5dic/ 1T5zBPfg48ZMNlf47 8sK5jx6JVBe6ics3XSAVF9mgQN4443-70-29E69:48:00 [facility] ([facility])Pharmacy Prog.Note-VancomycinREPORT#:[id number] REPORT STATUS: SignedDATE:09/26/19 TIME: 1148 PATIENT: MAC AGUSTIN UNIT #: [id number]#: [id number] [facility] AGE: 74 SEX: F ATTEND: Joel Myers [facility] AUTHOR: Kathia Varela [facility] * ALL edits or amendments must be made on the electronic/computer document * Vancomycin VancomycinTreatment plan: consult, initiation of therapyRegimen:Ms. Agustin is a 74 yo female with dementia, DM2, Chronic pain, frequent UTI, DM2, RA, anxiety presented to ED from [facility] for concerns of abnormal labs,dehydration, NATHEN, suspect UTI. Dr. Lin consulted pharmacy to manage vancomyicn for sepsis with goal trough 15-20 mcg/mL. 09/25 A P day1* WBC 26, LA 21, labile BP* Micro: blood cx 09/25 penidng, MRSA 09/25 screen pending* Images: CXR 09/25 clear lungs, CT abd 09/25: underdistention vs colitis ; gastritis vs neuplasm of the stomach* scr 3.9 -> 5.1 Pt in NATHEN. pt received 1 dose of vancomycin 1gm IV this AM. Will order random level with AM labs on 09/26 and will reschedule vancomycin. * Risk for accumulation: Zosyn* Pharmacy will f/u and adjust dose as appropriate. Appreciate consult, at 1149 RPT #:[id number] OF REPORTPRProgress Cqey1923-76-85H26:48:00G.[id number] for patient gsimTTXZKCZLEMCVLU5467-34-96W23:49:[address] [facility] 2019-09-26 11:17:00 [id number]++01UZ4zBcSVP 1xX4yCpb3ih/N2+Zj az3kvf3IkkoLVTqDNuhV08p42B0361-14-62L68:17:00 [facility] ([facility])Clinical NoteREPORT#:[id number] REPORT STATUS: SignedDATE:09/26/19 TIME: 1117 PATIENT: MAC AGUSTIN UNIT #: [id number]#: [id number] [address] AGE: 74 SEX: F ATTEND: Joel Myers AUTHOR: Rabia Aguilar MD * ALL edits or amendments must be made on the electronic/computer document * Clinical NoteNote:HDIndication: NATHEN/Severe acidosis/probable Metformin ToxicityHD 5 hours3 .5 KHCO3 40No CSFK943TQ 700Patient seen and evaluated during HD, discussed with HD nurse at 1719 RPT #:[id number] OF REPORTCLClinical ucpa5704-22-11Q91:17:00G.[id number] for patient iztbZRRCSZSNZDFEUF8621-87-27G68:20:17 [facility] 2019-09-26 09:51:00 DEfeaircsik19255353npe4sehqOdLAsPKj/O4Ib 4Mi19mNjkWpdv0TwK m7DH3UVg98feLIqr1JMlgI3K0O0374-80-75H09:51:00 [facility] History PhysicalREPORT#:[id number] REPORT STATUS: SignedDATE:09/26/19 TIME: 950 PATIENT: MAC AGUSTIN UNIT #: [id number]#: [id number] [address] AGE: 74 SEX: F ATTEND: Joel Myers [facility] AUTHOR: Marisabel Chu DO * ALL edits or amendments must be made on the electronic/computer document * History of Present Illness HPIChief complaint:UnwellHPI:Ms. Agustin is a 74 yo female with dementia, DM2, Chronic pain, anxiety presented to ED from [facility] for concerns of abnormal labs and dehydration. Two daughters at bedside state that [facility] has told them their mother has not been eating well for a few days, not feeling well. They have been unable to visit her due to social distancing lockdown for coronavirus. Unsure if patient has had any nausea, vomiting or diarrhea. Pt herself is minimally responsive and unable to answer questions. HistoryPast medical history:Reports: Arthritis (RA), Dementia (Alzheimer's dementia), Depression/mood disorder (anxiety), Diabetes mellitus (type 2), Hypertension, Chronic pain. Additional medical history:Frequent UTI, incontinence of bladder and bowel, migraine headache, frequent fallsAlcohol use: Denies EtOH useDrug use: Denies recreational drugsSmoking status for patients 13 years old or older: Unknown,if ever smokedOther social history: Lives in facility Medication/Allergy-Vaccine HxHome Medications:ACETAMINOPHEN (TYLENOL) 500 MG PO Q6H PRN PRN HEADACHEbusPIRone (BUSPAR) 5 MG PO BIDDONEPEZIL (ARICEPT) 10 MG PO BEDTIMEmetFORMIN (GLUCOPHAGE) 1,000 MG PO BIDQUEtiapine (SEROquel) 25 MG PO BEDTIME Discontinued MedicationsQUEtiapine (SEROquel) 25 MG PO BID Discontinued reason: Duplicate therapy Allergies:Coded Allergies:penicillamine (UNKNOWN 09/26/19) Unable to obtain: past surgical history, family history Review of SystemsUnable to obtain due to:pt poorly responsive Objective GeneralVS/I O:Vital Signs: Date Time Temp Pulse Resp B/P B/P Pulse O2 O2 Flow FiO2 Mean Ox Delivery Rate 09/25 0720 101 18 77/50 59 09/25 0452 Nasal 3.913837 cannula 09/25 0439 91.5 09/25 0339 113 26 139/94 109 95 Room air 24 hour I O ending at 0700: 09/25 0700 09/24 1900 Intake Total Output Total Balance Patient 61.4 kg Weight Weight Bed scale Measurement Method Patient Weight Weight (lb): Weight (oz): Weight (kg): 61.400 Medications:Active Meds + DC'd Last 24 HrsPiperacillin Sod/Tazobactam Sod 3.375 GM Q8H IV Sodium Chloride 100 MLMagnesium Sulfate 50 ML Q6H IV (DC) Sodium Bicarbonate 150 ML Q11H IV (CKD) Dextrose/Water 1,000 MLCalcium Chloride 1 GM ONCE ONE IV (CAN) Sodium Chloride 100 MLInsulin Human Lispro 0 AC HS SUBQ Insulin Human Regular 10 UNITS ONCE ONE IV (CAN) Dextrose/Water 50 ML STAT STA IV (CAN) Vancomycin HCl 750 MG Q12H IV (UNV) Sodium Chloride 250 MLNorepinephrine Bitartrate 250 ML ASDIR PRN IV Sodium Chloride 1,842 ML BOLUS STA IV (DC) Sodium Chloride 0 ASDIR PRN IV Norepinephrine Bitartrate 250 ML X1ED STA IV (DC) Norepinephrine Bitartrate 250 ML .STK-MED ONE IV (DC) Sodium Bicarbonate 100 MEQ X1ED STA IV (DC) Potassium Chloride/Dextrose/Sod Cl 1,000 ML X1ED STA IV Acetaminophen 650 MG Q4H PRN PRN PO Albuterol/Ipratropium 3 ML RTQ4H PRN PRN INH Dextrose/Water 125 ML ASDIR PRN IV Dextrose/Water 250 ML ASDIR PRN IV Glucagon 1 MG ASDIR PRN IM Lorazepam 1 MG Q4H PRN PRN IV (DC) Morphine Sulfate 2 MG Q4H PRN PRN IV (DC) Ondansetron HCl 4 MG Q6H PRN PRN IV Sterile Water 1.2 ML ASDIR IM Ziprasidone 20 MG X1ED STA IM (DC) Lactated Ringer's 1,000 ML X1ED STA IV (DC) Piperacillin Sod/Tazobactam Sod 3.375 GM X1ED STA IV (DC) Sodium Chloride 100 MLLorazepam 2 MG ONCE ONE IV (DC) Sodium Chloride 0 ASDIR PRN IV Lorazepam 0 .STK-MED ONE IV (DC) Magnesium Sulfate 100 ML X1ED STA IV (DC) Calcium Gluconate 1,000 MG X1ED STA IV (DC) Sodium Chloride 50 MLCalcium Gluconate 1,000 MG X1ED STA IV (DC) Sodium Chloride 50 MLSodium Bicarbonate 150 MEQ X1ED STA IV (DC) Cefepime HCl 2 GM X1ED STA IV (DC) Sodium Chloride 20 MLVancomycin HCl 1,000 MG X1ED STA IV (DC) Sodium Chloride 250 MLSodium Chloride 1,000 ML X1ED STA IV (DC) Sodium Chloride 1,000 ML X1ED STA IV Sodium Chloride 0 ASDIR PRN IV Physical ExamGeneral appearance: chronically ill appearing, responsiveness (poor), asleep, loudly snoringHead/Eyes: atraumatic, normocephalic, PERRLENT: dry mucosal membrane, poor dentition, normal ear left, normal ear right, normal noseNeck: no JVD, no masses or swellingCardiovascular: normal heart sounds, regular rate rhythmRespiratory: no distress, referred upper airway noise makes it difficult to ascertain clarity of lungs, pt's breathing is unlaboredAbdomen: non-tender, normal bowel sounds, soft, no distention, no guarding, no reboundGenitourinary: no bladder distentionExtremities: edema (trace BLE), no clubbing, no cyanosisMusculoskeletal: normal inspectionNeuro/FAST FOOD ATTENDANT: PERRLA moves limbs independentlySkin: dry, intact, normal color, normal temperature, no rashLymphatics: neck normalPsychiatry: unable to evaluate ResultsFindings/Data:Laboratory Tests 09/25 09/25 0951 0452 Blood Gas Puncture Site R Rad R Rad ABG pH (7.35 - 7.45) 6.787 *L 6.871 *L ABG pCO2 (35 - 45 mmHg) 13.7 *L 9.5 *L ABG pO2 (80 - 100 mmHg) 158 H 133 H ABG HCO3 (22.0 - 26.0 mmol/L) 2.1 L 1.9 L ABG Total CO2 < 5 < 5 ABG O2 Saturation (90 - 100 %) 96 97 ABG Base Excess (-4 - 4 mmol/L) < -30.0 L < -30.0 L Temperature (F) 98.6 91.7 O2 Delivery Device Cannula Room Air Laboratory Tests 09/25 09/25 09/25 09/25 09/25 0730 0726 0625 0355 0348 Chemistry POC Glucose (70 - 110 MG/DL) 107 147 H Lactic Acid (0.4 - 1.9 mmol/l) 19.1 *H 14.8 *H Troponin I (0.000 - 0.045 ng/mL) 0.033 09/25 09/25 0345 0344 Chemistry Sodium (134 - 147 mEq/L) 144 Potassium (3.4 - 5.0 mEq/L) 3.2 L Chloride (100 - 108 mEq/L) 114 H Carbon Dioxide (21 - 33 mEq/L) 4 L Anion Gap (0 - 20) 29 H BUN (7 - 18 mg/dL) 69 H Creatinine (0.6 - 1.3 mg/dL) 3.9 H Glomerular Filtr Rate (70 - 80) 11.4 L Glucose (70 - 110 mg/dL) 100 Calcium (8.0 - 10.5 mg/dL) 5.6 *L Magnesium (1.8 - 2.4 mg/dL) 0.90 *L Total Bilirubin (<1.5 MG/DL) 0.2 Direct Bilirubin (0.0 - 0.30 MG/DL) < 0.10 Indirect Bilirubin (MG/DL) 0.10 AST (15 - 37 IUnit/L) 7 L ALT (15 - 65 IUnit/L) 12 L Total Alk Phosphatase (20 - 125 IUnit/L) 39 Troponin I (0.000 - 0.045 ng/mL) 0.029 B-Natriuretic Peptide (0 - 100 PG/ML) 304.2 H Total Protein (6.4 - 8.2 g/dL) 5.1 L Albumin (3.4 - 5.0 g/dL) 2.30 L Lipase (73 - 393 IUnit/L) 139 TSH (0.42 - 5.47 IU/mL) 0.68 Laboratory Tests 09/25 0345 Coagulation INR (0.8 - 1.2) 1.1 PTT ([place]) (25.0 - 39.5 Seconds) 22.2 L PT Patient/Control Mix (9.3 - 12.9 SECONDS) 11.7 Laboratory Tests 09/25 034 Hematology WBC (4.5 - 11.0 x10 3/uL) 22.50 H RBC (3.54 - 5.02 x10 6/uL) 4.48 Hgb (11.0 - 15.0 g/dL) 13.5 Hct (33.0 - 45.0 %) 44.2 MCV (81.0 - 99.0 fL) 98.7 MCH (27.0 - 33.0 pg) 30.1 MCHC (33.0 - 37.0 g/dL) 30.5 L RDW (11.5 - 14.5 %) 13.4 Plt Count (150 - 400 x10 3/uL) 331 MPV (7.0 - 9.0 fL) 12.1 H Add Manual Diff YES Seg Neutrophils % (37 - 69 %) 90.9 H Lymphocytes % (Manual) (23 - 55 %) 4.6 L Monocytes % (Manual) (0 - 10 %) 3.6 Myelocytes (0.0 - 0.0 %) 0.9 H Platelet Estimate (ADEQUATE THOUSAND) Adequate Plt Morphology Comment LARGE PLATELETS Poikilocytosis 2+ Laboratory Tests 09/255 Urines Urine Color (YEL/STRAW) YELLOW Urine Appearance (CLEAR) SL CLOUDY Urine pH (5.0 - 7.0) 5.0 Ur Specific [place] (1.005 - 1.030) 1.011 Urine Protein (NEGATIVE) 2+ H Urine Glucose (UA) (NEGATIVE) 2+ H Urine Ketones (NEGATIVE) TRACE H Urine Blood (NEGATIVE) 1+ H Urine Nitrite (NEGATIVE) NEGATIVE Urine Bilirubin (NEGATIVE) NEGATIVE Urine Urobilinogen (0.2 - 1.0 mg/dL) 0.2 Ur Leukocyte Esterase (NEGATIVE) TRACE H Urine RBC (0 - 3 RBC/HPF) 4-10 Urine WBC (0 - 3 WBC/HPF) 4-9 H Ur Squamous Epith Cells (NONE SEEN /HPF) 0-5 Urine Bacteria (NONE SEEN /HPF) 1+ H Urine Mucus (NONE SEEN /LPF) TRACE Urine Yeast (NONE /HPF) 1+ H Radiology data:Recent Impressions:RADIOLOGY - XR CHEST 1 V 09/25 0405 Report Impression - Status: SIGNED Entered: 09/26/2019 0413 IMPRESSION: Mildly hyperinflated, but clear lungs. Lucency beneath the left hemidiaphragm likely related to a mildlydilated gas-filled stomach. An upright view of the abdomen would beconfirmatory and better exclude pneumoperitoneum. SL: TPAINTER-HImpression By: Bridget Edward M.D.RADIOLOGY - XR CHEST 1 V 09/25 0532 Report Impression - Status: SIGNED Entered: 09/26/2019 0546 IMPRESSION: Hypoinflation associated with interval right IJ central line insertiontip overlying the atriocaval junction without pneumothorax. SL: TPAINTER-HImpression By: Bridget Edward M.D.CAT SCAN - CT C-SPINE W/O CONT 09/25 0446 Report Impression - Status: SIGNED Entered: 09/26/2019 0607 IMPRESSION: Mild cervical spondylosis and facet arthrosis without acute fractureor dislocation. Mild chronic bilateral mastoiditis. SL: TPAINTER-HImpression By: Bridget Edward M.D.CAT SCAN - CT HEAD/BRAIN W/O CONT 09/25 0546 Report Impression - Status: SIGNED Entered: 09/26/2019 0612 IMPRESSION: Mild to moderate diffuse atrophy is present associated with mildnonspecific periventricular low attenuation most consistent with oldmicroangiopathic ischemic change. No acute intracranial abnormality. Small old appearing lacunar infarctions in both basal ganglia and leftthalamus. Mild chronic sinusitis. Minimal chronic bilateral mastoiditis. SL: TPAINTER-HImpression By: Bridget Edward M.D.CAT SCAN - CT CHEST W/O CONTRAST 09/25 545 Report Impression - Status: SIGNED Entered: 09/26/201932 IMPRESSION: Nonspecific nonobstructive bowel gas pattern associated with milddiffuse colonic wall thickening either related to underdistention ornonspecific colitis. Mild submucosal fat seen in the colon suggestchronic colonic inflammatory change. Mild sigmoid diverticulosis. Moderately dilated stomach with areas of asymmetric wall thickening inthe antrum and greater gastric curvature that may represent gastritisor underlying neoplasm. Follow-up upper GI or endoscopy may behelpful. Additionally, a radionuclide gastric emptying study may behelpful if gastroparesis is suspected clinically. Mild left renal cortical atrophy associated with a small mildlycomplex cyst. Further evaluation may be obtained with renalultrasound. Tiny focus of gas in the urinary bladder may represent recentcatheterization or cold fistula with bowel. Mild diffuse anasarca. Normal size heart associated with moderate coronary arterycalcifications. Mild hyperinflation associated with subsegmental atelectasis andscarring in both lungs greatest in the lung bases. Mild to moderate abdominal aortic atherosclerosis associated withinfrarenal aneurysm measuring 3.1 cm maximum transverse dimension. Mild soft tissue gas in the right anterior abdominal and pelvic walllikely related to recent medication injection. Postoperative change of cholecystectomy. SL: TPAINTER-HImpression By: Bridget Edward M.D.CAT SCAN - CT ABD PELVIS W/O CONT 09/25 545 Report Impression - Status: SIGNED Entered: 09/26/201932 IMPRESSION: Nonspecific nonobstructive bowel gas pattern associated with milddiffuse colonic wall thickening either related to underdistention ornonspecific colitis. Mild submucosal fat seen in the colon suggestchronic colonic inflammatory change. Mild sigmoid diverticulosis. Moderately dilated stomach with areas of asymmetric wall thickening inthe antrum and greater gastric curvature that may represent gastritisor underlying neoplasm. Follow-up upper GI or endoscopy may behelpful. Additionally, a radionuclide gastric emptying study may behelpful if gastroparesis is suspected clinically. Mild left renal cortical atrophy associated with a small mildlycomplex cyst. Further evaluation may be obtained with renalultrasound. Tiny focus of gas in the urinary bladder may represent recentcatheterization or cold fistula with bowel. Mild diffuse anasarca. Normal size heart associated with moderate coronary arterycalcifications. Mild hyperinflation associated with subsegmental atelectasis andscarring in both lungs greatest in the lung bases. Mild to moderate abdominal aortic atherosclerosis associated withinfrarenal aneurysm measuring 3.1 cm maximum transverse dimension. Mild soft tissue gas in the right anterior abdominal and pelvic walllikely related to recent medication injection. Postoperative change of cholecystectomy. SL: TPAINTER-HImpression By: [email or web address] - Amadeo Edward M.D. Diagnosis, Assessment Plan Free Text DxA P NotesFree text DxA P notes:Severe lactic acidosisSevere metabolic acidosisAcute renal failureHypocalcemiaHypomagnesemia?Septic shock vs lactic acidosis from metforminDehydrationHypothermiaDMHTNDementia with behavior disturbance Plan:Ms. Agustin is a 74 yo female with non-specific symptoms of not feeling well, poor appetite that was found to have abnormal labs at [facility], sent to ED for evaluation. In the ED, found to have severe lactic and metabolic acidosis. Discussed at length with ICU (Dr. Lin) and Renal (Dr Aguilar). Given her de leon imaging, urinalysis, CXR are unremarkable for this level of acidosis, perhaps this acidosis is secondary to metformin. Plan is to dialyize patient to look for improvement. If no improvement, perhaps this is ischemic bowel. Will continue empiric Zosyn. - Zosyn- blood cultures pending- hold home meds- Accuchecks and SSI- replace electrolytes- heparin for DVT prophylaxsis at 1017 RPT #:[id number] OF REPORTHPHistory and physical qynhlwtepgc9213-99-05P64:51:00G.IBFX40925084-0739TZDsbhpw ble for patient snqiAWEGQEFTRMPKAY7417-99-29P83:17:[address] [facility] 2019-09-26 08:35:00 VJhyblhrcej48343704YGpndAIE+WTCzVgCSi44S SfDPiMiWuEvh/U3rq zrwF6R0OP9jUhnGxnVq5LAeMiC1482-44-00C40:35:00 [facility])Nephrology Consultation NoteREPORT#:[id number] REPORT STATUS: SignedDATE:09/26/19 TIME: 0835 PATIENT: MAC AGUSTIN UNIT #: [id number]#: [id number] [facility] AGE: 74 SEX: F ATTEND: Joel Myers AUTHOR: Rabia Aguilar MD * ALL edits or amendments must be made on the electronic/computer document * History of Present IllnessRequesting clinician: Joel Myers for consult:Elevated Creatinine/severe acidosisChief complaint:Patient is unwell with abnormal labsHPI:Patient seen and evaluated, discussed with care team, 72-year-old female central hospital resident with history of diabetes mellitus type 2, dementia, frequent falls, rheumatoid arthritis, hypertension and frequent UTI who was sent to the emergency room via EMS from [facility] for being unwell and abnormal laboratories showing rise in her serum creatinine and low bicarbonate. In the emergency room her laboratories showed hemoglobin 13.5, white blood count22.5, CO2 platelet 331, blood gas showed severe acidosis with a pH of 6.87, CO2 9.5, her lactic acid was 19.1, sodium 144, potassium 3.2, CO2 of 4 on the blood chemistry, chloride 114, BUN 69, creatinine 3.9, magnesium 0.9, calcium 5.6 withan albumin of 2.3, urinalysis showed 4-9 white blood cells and 2+ protein and 2+glucose. Her CT scan of the head did not show any acute changes, chest x-ray and CT scan of the chest also did not show any acute changes. CT scan of the abdomen and pelvis also without significant changes. Renal consult was requested for evaluation and management of her elevated BUN carried creatinine, severe acidosis and electrolyte abnormalities. History - Adult longitudinalSmoking status for patients 13 years old or older: Unknown,if ever smokedMedications:Current Hospital Medications:Anti-Infective Agents Sig/Rose Mary Start time Last Medication Dose Route Stop Time Status Admin Piperacillin Sod/ 3.375 GM Q8H 09/25 1500 AC Tazobactam Sod IV 10/02 1459 (ZOSYN 3.375GM) Sodium Chloride 100 ML (SODIUM CHLORIDE 0.9% 100 ML) Vancomycin HCl 750 MG Q12H 09/25 0715 UNV (VANCOMYCIN HCL) IV 10/25 0714 Sodium Chloride 250 ML (SODIUM CHLORIDE 0.9%) Piperacillin Sod/ 3.375 GM X1ED STA 09/25 0614 DC 09/25 Tazobactam Sod IV 09/25 0643 0646 (ZOSYN 3.375GM) Sodium Chloride 100 ML (SODIUM CHLORIDE 0.9% 100 ML) Cefepime HCl 2 GM X1ED STA 09/25 0348 DC 09/25 (MAXIPIME) IV 09/25 0350 0401 Sodium Chloride 20 ML (SODIUM CHLORIDE) Vancomycin HCl 1,000 MG X1ED STA 09/25 0348 DC 09/25 (VANCOMYCIN HCL) IV 09/25 0447 0401 Sodium Chloride 250 ML (SODIUM CHLORIDE 0.9%) Autonomic Drugs Sig/Rose Mary Start time Last Medication Dose Route Stop Time Status Admin Norepinephrine 250 ML ASDIR PRN 09/25 0700 AC Bitartrate IV 10/25 0659 (NOREPINEPHRINE 8 MG/ NS 250 ML) Norepinephrine 250 ML X1ED STA 09/25 0640 AC 09/25 Bitartrate IV 09/25 0900 0648 (NOREPINEPHRINE 8 MG/ NS 250 ML) Norepinephrine 250 ML .STK-MED ONE 09/25 0640 DC Bitartrate IV (NOREPINEPHRINE 8 MG/ NS 250 ML) Albuterol/Ipratropium 3 ML RTQ4H PRN PRN 09/25 0630 AC (DUONEB) INH 09/26 0529 Central Nervous System Agents Sig/Rose Mary Start time Last Medication Dose Route Stop Time Status Admin Acetaminophen 650 MG Q4H PRN PRN 09/25 0630 AC (TYLENOL) PO 09/26 0529 Lorazepam 1 MG Q4H PRN PRN 09/25 0630 AC (ATIVAN) IV 09/26 0529 Morphine Sulfate 2 MG Q4H PRN PRN 09/25 0630 AC (morphine SULFATE) IV 09/26 0529 Ziprasidone 20 MG X1ED STA 09/25 0624 DC (GEODON 20MG VIAL) IM 09/25 0625 Lorazepam 2 MG ONCE ONE 09/25 0445 DC 09/25 (ATIVAN) IV 09/25 044 0513 Lorazepam 0 .STK-MED ONE 09/25 0438 DC (ATIVAN) IV Magnesium Sulfate 100 ML X1ED STA 09/25 0425 DC 09/25 (MAGNESIUM SULFATE IV 09/25 0824 0511 4GM/SWFI 100ML) Electrolytic, Caloric, And Erica Sig/Rose Mary Start time Last Medication Dose Route Stop Time Status Admin Calcium Chloride 1 GM ONCE ONE 09/25 0730 CAN (CALCIUM CHLORIDE) IV 09/25 0759 Sodium Chloride 100 ML (SODIUM CHLORIDE 0.9%) Dextrose/Water 50 ML STAT STA 09/25 0720 CAN (DEXTROSE 50% W IV 09/25 0721 SYRINGE) Sodium Chloride 1,842 ML BOLUS STA 09/25 0700 DC 09/25 (SODIUM CHLORIDE IV 09/25 0701 0733 0.9%) Sodium Chloride 0 ASDIR PRN 09/25 0645 AC (SODIUM CHLORIDE) IV 09/26 0529 Sodium Bicarbonate 100 MEQ X1ED STA 09/25 0636 DC 09/25 (SODIUM BICARBONATE) IV 09/25 0637 0656 Potassium Chloride/ 1,000 ML X1ED STA 09/25 0635 AC 09/25 Dextrose/Sod Cl IV 09/25 1434 0700 (D5 0.45%NS + KCl 20mEq 1,000mL) Dextrose/Water 125 ML ASDIR PRN 09/25 0630 AC (DEXTROSE 10% IN IV 09/26 0529 WATER) Dextrose/Water 250 ML ASDIR PRN 09/25 0630 AC (DEXTROSE 10% IN IV 09/26 0529 WATER) Lactated Ringer's 1,000 ML X1ED STA 09/25 0623 DC 09/25 (LACTATED RINGERS) IV 09/25 0624 0647 Sodium Chloride 0 ASDIR PRN 09/25 0445 AC (SODIUM CHLORIDE) IV 10/25 0444 Calcium Gluconate 1,000 MG X1ED STA 09/25 0424 DC 09/25 (Calcium Gluconate) IV 09/25 0433 0512 Sodium Chloride 50 ML (Sodium Chloride 50ML) Calcium Gluconate 1,000 MG X1ED STA 09/25 0424 DC 09/25 (Calcium Gluconate) IV 09/25 0433 0513 Sodium Chloride 50 ML (Sodium Chloride 50ML) Sodium Bicarbonate 150 MEQ X1ED STA 09/25 0424 DC 09/25 (SODIUM BICARBONATE) IV 09/25 0425 0511 Sodium Chloride 1,000 ML X1ED STA 09/25 0347 DC 09/25 (SODIUM CHLORIDE IV 09/25 0446 0401 0.9%) Sodium Chloride 1,000 ML X1ED STA 09/25 0347 AC 09/25 (SODIUM CHLORIDE IV 09/25 1146 0402 0.9%) Sodium Chloride 0 ASDIR PRN 09/25 0345 AC (SODIUM CHLORIDE) IV 09/26 0240 Gastrointestinal Drugs Sig/Rose Mary Start time Last Medication Dose Route Stop Time Status Admin Ondansetron HCl 4 MG Q6H PRN PRN 09/25 0630 AC (ZOFRAN) IV 09/26 0529 Hormones And Synthetic Substit Sig/Rose Mary Start time Last Medication Dose Route Stop Time Status Admin Insulin Human Lispro 0 AC HS 09/25 0730 AC (HUMALOG) SUBQ 09/26 05 Insulin Human Regular 10 UNITS ONCE ONE 09/25 07 CAN (HUMAN INSULIN REG) IV 09/25 0731 Glucagon 1 MG ASDIR PRN 09/25 0630 AC (GLUCAGON) IM 09/26 05 Pharmaceutical Aids Sig/Rose Mary Start time Last Medication Dose Route Stop Time Status Admin Sterile Water 1.2 ML ASDIR 09/25 06 AC (WATER FOR INJECTION) IM 09/26 0524 Allergies:Coded Allergies:penicillamine (UNKNOWN 09/26/19) Unable to obtain: past medical history, past surgical history, family history, smoking history, social historyUnobtainable due to: Patient's condition Review of SystemsUnable to obtain due to:Patient's condition Objective GeneralVS/I O:Vital Signs: Date Time Temp Pulse Resp B/P B/P Pulse O2 O2 Flow FiO2 Mean Ox Delivery Rate 09/25 07 101 18 77/50 59 09/25 0452 Nasal [id number] cannula 09/25 0439 33.1 09/25 0339 113 26 139/94 109 95 Room air 24 hour I O ending at 0700: 09/25 0700 09/24 1900 Intake Total Output Total Balance Patient 61.4 kg Weight Weight Bed scale Measurement Method Patient Weight Weight (lb): Weight (oz): Weight (kg): 61.400 Medications:Active Meds + DC'd Last 24 HrsPiperacillin Sod/Tazobactam Sod 3.375 GM Q8H IV Sodium Chloride 100 MLCalcium Chloride 1 GM ONCE ONE IV (CAN) Sodium Chloride 100 MLInsulin Human Lispro 0 AC HS SUBQ Insulin Human Regular 10 UNITS ONCE ONE IV (CAN) Dextrose/Water 50 ML STAT STA IV (CAN) Vancomycin HCl 750 MG Q12H IV (UNV) Sodium Chloride 250 MLNorepinephrine Bitartrate 250 ML ASDIR PRN IV Sodium Chloride 1,842 ML BOLUS STA IV (DC) Sodium Chloride 0 ASDIR PRN IV Norepinephrine Bitartrate 250 ML X1ED STA IV Norepinephrine Bitartrate 250 ML .STK-MED ONE IV (DC) Sodium Bicarbonate 100 MEQ X1ED STA IV (DC) Potassium Chloride/Dextrose/Sod Cl 1,000 ML X1ED STA IV Acetaminophen 650 MG Q4H PRN PRN PO Albuterol/Ipratropium 3 ML RTQ4H PRN PRN INH Dextrose/Water 125 ML ASDIR PRN IV Dextrose/Water 250 ML ASDIR PRN IV Glucagon 1 MG ASDIR PRN IM Lorazepam 1 MG Q4H PRN PRN IV Morphine Sulfate 2 MG Q4H PRN PRN IV Ondansetron HCl 4 MG Q6H PRN PRN IV Sterile Water 1.2 ML ASDIR IM Ziprasidone 20 MG X1ED STA IM (DC) Lactated Ringer's 1,000 ML X1ED STA IV (DC) Piperacillin Sod/Tazobactam Sod 3.375 GM X1ED STA IV (DC) Sodium Chloride 100 MLLorazepam 2 MG ONCE ONE IV (DC) Sodium Chloride 0 ASDIR PRN IV Lorazepam 0 .STK-MED ONE IV (DC) Magnesium Sulfate 100 ML X1ED STA IV (DC) Calcium Gluconate 1,000 MG X1ED STA IV (DC) Sodium Chloride 50 MLCalcium Gluconate 1,000 MG X1ED STA IV (DC) Sodium Chloride 50 MLSodium Bicarbonate 150 MEQ X1ED STA IV (DC) Cefepime HCl 2 GM X1ED STA IV (DC) Sodium Chloride 20 MLVancomycin HCl 1,000 MG X1ED STA IV (DC) Sodium Chloride 250 MLSodium Chloride 1,000 ML X1ED STA IV (DC) Sodium Chloride 1,000 ML X1ED STA IV Sodium Chloride 0 ASDIR PRN IV Physical ExamGeneral appearance: respiratory supportHead/eyes: atraumatic, normocephalicENT: ET tubeNeck: supple/no meningismusCardiovascular: normal heart sounds, no rubRespiratory: aerating well, symmetric expansionAbdomen: softGenitourinary: ballard, urineExtremities: no edemaMusculoskeletal: normal inspectionNeuro/FAST FOOD ATTENDANT: altered mental statusSkin: dry ResultsFindings/Data:Laboratory Tests 09/25 09/25 0951 0452 Blood Gas Puncture Site R Rad R Rad ABG pH (7.35 - 7.45) 6.787 *L 6.871 *L ABG pCO2 (35 - 45 mmHg) 13.7 *L 9.5 *L ABG pO2 (80 - 100 mmHg) 158 H 133 H ABG HCO3 (22.0 - 26.0 mmol/L) 2.1 L 1.9 L ABG Total CO2 < 5 < 5 ABG O2 Saturation (90 - 100 %) 96 97 ABG Base Excess (-4 - 4 mmol/L) < -30.0 L < -30.0 L Temperature (F) 98.6 91.7 O2 Delivery Device Cannula Room Air Laboratory Tests 09/25 09/25 09/25 09/25 09/25 1000 0730 0726 0625 0355Chemistry Sodium (134 - 147 mEq/L) 145 Potassium (3.4 - 5.0 mEq/L) 4.8 Chloride (100 - 108 mEq/L) 102 Carbon Dioxide (21 - 33 mEq/L) 4 L Anion Gap (0 - 20) 44 H BUN (7 - 18 mg/dL) 86 H Creatinine (0.6 - 1.3 mg/dL) 5.1 H Glomerular Filtr Rate (70 - 80) 8.3 L Glucose (70 - 110 mg/dL) 147 H POC Glucose (70 - 110 MG/DL) 107 Lactic Acid (0.4 - 1.9 mmol/l) 19.1 *H 14.8 *H Calcium (8.0 - 10.5 mg/dL) 7.8 L Ionized Calcium [place] (1.12 - 1.32 1.07 LMMOL/L) Magnesium (1.8 - 2.4 mg/dL) 2.90 H Total Bilirubin (<1.5 MG/DL) 0.4 AST (15 - 37 IUnit/L) 43 H ALT (15 - 65 IUnit/L) 26 Total Alk Phosphatase (20 - 125 52IUnit/L) Troponin I (0.000 - 0.045 ng/mL) 0.033 Total Protein (6.4 - 8.2 g/dL) 5.5 L Albumin (3.4 - 5.0 g/dL) 2.40 L 09/25 09/25 09/25 0348 0345 0345 Chemistry Sodium (134 - 147 mEq/L) 144 Potassium (3.4 - 5.0 mEq/L) 3.2 L Chloride (100 - 108 mEq/L) 114 H Carbon Dioxide (21 - 33 mEq/L) 4 L Anion Gap (0 - 20) 29 H BUN (7 - 18 mg/dL) 69 H Creatinine (0.6 - 1.3 mg/dL) 3.9 H Glomerular Filtr Rate (70 - 80) 11.4 L Glucose (70 - 110 mg/dL) 100 POC Glucose (70 - 110 MG/DL) 147 H Calcium (8.0 - 10.5 mg/dL) 5.6 *L Magnesium (1.8 - 2.4 mg/dL) 0.90 *L Total Bilirubin (<1.5 MG/DL) 0.2 Direct Bilirubin (0.0 - 0.30 MG/DL) < 0.10 Indirect Bilirubin (MG/DL) 0.10 AST (15 - 37 IUnit/L) 7 L ALT (15 - 65 IUnit/L) 12 L Total Alk Phosphatase (20 - 125 IUnit/L) 39 Troponin I (0.000 - 0.045 ng/mL) 0.029 B-Natriuretic Peptide (0 - 100 PG/ML) 304.2 H Total Protein (6.4 - 8.2 g/dL) 5.1 L Albumin (3.4 - 5.0 g/dL) 2.30 L Lipase (73 - 393 IUnit/L) 139 TSH (0.42 - 5.47 IU/mL) 0.68 Laboratory Tests 09/25 034 Coagulation INR (0.8 - 1.2) 1.1 PTT ([place]) (25.0 - 39.5 Seconds) 22.2 L PT Patient/Control Mix (9.3 - 12.9 SECONDS) 11.7 Laboratory Tests 09/25 09/25 0971 0345 Hematology WBC (4.5 - 11.0 x10 3/uL) 26.44 H 22.50 H RBC (3.54 - 5.02 x10 6/uL) 3.50 L 4.48 Hgb (11.0 - 15.0 g/dL) 10.5 L 13.5 Hct (33.0 - 45.0 %) 36.1 44.2 MCV (81.0 - 99.0 fL) 103.1 H 98.7 MCH (27.0 - 33.0 pg) 30.0 30.1 MCHC (33.0 - 37.0 g/dL) 29.1 L 30.5 L RDW (11.5 - 14.5 %) 13.5 13.4 Plt Count (150 - 400 x10 3/uL) 269 331 MPV (7.0 - 9.0 fL) 11.7 H 12.1 H Neut % (Auto) (56.0 - 77.0 %) 81.1 H Lymph % (Auto) (14.0 - 32.0 %) 4.8 L [place] % (Auto) (4.8 - 9.0 %) 12.3 H Eos % (Auto) (0.3 - 3.7 %) 0.0 L Baso % (Auto) (0.0 - 2.0 %) 0.2 Neut # (Auto) (2.0 - 7.6 x10 3/uL) 21.47 H Lymph # (Auto) (1.0 - 3.8 x10 3/uL) 1.26 [place] # (Auto) (0.1 - 0.8 x10 3/uL) 3.25 H Eos # (Auto) (0.0 - 0.2 x10 3/uL) 0.00 Baso # (Auto) (0.0 - 0.2 x10 3/uL) 0.05 Abs Immat Gran (auto) (0.00 - 0.03 x10 3/uL) 0.41 H Add Manual Diff NO YES Immature Gran % (0.0 - 2.0 %) 1.6 Seg Neutrophils % (37 - 69 %) 90.9 H Lymphocytes % (Manual) (23 - 55 %) 4.6 L Monocytes % (Manual) (0 - 10 %) 3.6 Nucleated RBC % (0 - 0 %) 0.0 Myelocytes (0.0 - 0.0 %) 0.9 H Nucleated RBCs # (Man) (0.0 - 0.1 x10 3/uL) 0.00 Platelet Estimate (ADEQUATE THOUSAND) Adequate Plt Morphology Comment LARGE PLATELETS Poikilocytosis 2+ Laboratory Tests 09/25 0415 Urines Urine Color (YEL/STRAW) YELLOW Urine Appearance (CLEAR) SL CLOUDY Urine pH (5.0 - 7.0) 5.0 Ur Specific [place] (1.005 - 1.030) 1.011 Urine Protein (NEGATIVE) 2+ H Urine Glucose (UA) (NEGATIVE) 2+ H Urine Ketones (NEGATIVE) TRACE H Urine Blood (NEGATIVE) 1+ H Urine Nitrite (NEGATIVE) NEGATIVE Urine Bilirubin (NEGATIVE) NEGATIVE Urine Urobilinogen (0.2 - 1.0 mg/dL) 0.2 Ur Leukocyte Esterase (NEGATIVE) TRACE H Urine RBC (0 - 3 RBC/HPF) 4-10 Urine WBC (0 - 3 WBC/HPF) 4-9 H Ur Squamous Epith Cells (NONE SEEN /HPF) 0-5 Urine Bacteria (NONE SEEN /HPF) 1+ H Urine Mucus (NONE SEEN /LPF) TRACE Urine Yeast (NONE /HPF) 1+ H Recent Impressions:RADIOLOGY - XR CHEST 1 V 09/25 0405 Report Impression - Status: SIGNED Entered: 09/26/2019 0413 IMPRESSION: Mildly hyperinflated, but clear lungs. Lucency beneath the left hemidiaphragm likely related to a mildlydilated gas-filled stomach. An upright view of the abdomen would beconfirmatory and better exclude pneumoperitoneum. SL: TPAINTER-HImpression By: Bridget Edward M.D.RADIOLOGY - XR CHEST 1 V 09/25 0532 Report Impression - Status: SIGNED Entered: 09/26/2019 0546 IMPRESSION: Hypoinflation associated with interval right IJ central line insertiontip overlying the atriocaval junction without pneumothorax. SL: TPAINTER-HImpression By: Bridget Edward M.D.CAT SCAN - CT C-SPINE W/O CONT 09/25 0546 Report Impression - Status: SIGNED Entered: 09/26/2019 0607 IMPRESSION: Mild cervical spondylosis and facet arthrosis without acute fractureor dislocation. Mild chronic bilateral mastoiditis. SL: TPAINTER-HImpression By: Bridget Edward M.D.CAT SCAN - CT HEAD/BRAIN W/O CONT 09/25 0546 Report Impression - Status: SIGNED Entered: 09/26/2019 0612 IMPRESSION: Mild to moderate diffuse atrophy is present associated with mildnonspecific periventricular low attenuation most consistent with oldmicroangiopathic ischemic change. No acute intracranial abnormality. Small old appearing lacunar infarctions in both basal ganglia and leftthalamus. Mild chronic sinusitis. Minimal chronic bilateral mastoiditis. SL: TPAINTER-HImpression By: Bridget Edward M.D.CAT SCAN - CT CHEST W/O CONTRAST 09/25 545 Report Impression - Status: SIGNED Entered: 09/26/2019631 IMPRESSION: Nonspecific nonobstructive bowel gas pattern associated with milddiffuse colonic wall thickening either related to underdistention ornonspecific colitis. Mild submucosal fat seen in the colon suggestchronic colonic inflammatory change. Mild sigmoid diverticulosis. Moderately dilated stomach with areas of asymmetric wall thickening inthe antrum and greater gastric curvature that may represent gastritisor underlying neoplasm. Follow-up upper GI or endoscopy may behelpful. Additionally, a radionuclide gastric emptying study may behelpful if gastroparesis is suspected clinically. Mild left renal cortical atrophy associated with a small mildlycomplex cyst. Further evaluation may be obtained with renalultrasound. Tiny focus of gas in the urinary bladder may represent recentcatheterization or cold fistula with bowel. Mild diffuse anasarca. Normal size heart associated with moderate coronary arterycalcifications. Mild hyperinflation associated with subsegmental atelectasis andscarring in both lungs greatest in the lung bases. Mild to moderate abdominal aortic atherosclerosis associated withinfrarenal aneurysm measuring 3.1 cm maximum transverse dimension. Mild soft tissue gas in the right anterior abdominal and pelvic walllikely related to recent medication injection. Postoperative change of cholecystectomy. SL: TPAINTER-HImpression By: Bridget Edward M.D.CAT SCAN - CT ABD PELVIS W/O CONT 09/25 545 Report Impression - Status: SIGNED Entered: 09/26/2019631 IMPRESSION: Nonspecific nonobstructive bowel gas pattern associated with milddiffuse colonic wall thickening either related to underdistention ornonspecific colitis. Mild submucosal fat seen in the colon suggestchronic colonic inflammatory change. Mild sigmoid diverticulosis. Moderately dilated stomach with areas of asymmetric wall thickening inthe antrum and greater gastric curvature that may represent gastritisor underlying neoplasm. Follow-up upper GI or endoscopy may behelpful. Additionally, a radionuclide gastric emptying study may behelpful if gastroparesis is suspected clinically. Mild left renal cortical atrophy associated with a small mildlycomplex cyst. Further evaluation may be obtained with renalultrasound. Tiny focus of gas in the urinary bladder may represent recentcatheterization or cold fistula with bowel. Mild diffuse anasarca. Normal size heart associated with moderate coronary arterycalcifications. Mild hyperinflation associated with subsegmental atelectasis andscarring in both lungs greatest in the lung bases. Mild to moderate abdominal aortic atherosclerosis associated withinfrarenal aneurysm measuring 3.1 cm maximum transverse dimension. Mild soft tissue gas in the right anterior abdominal and pelvic walllikely related to recent medication injection. Postoperative change of cholecystectomy. SL: TPAINTER-HImpression By: [email or web address] - Amadeo Edward M.D. Laboratory Tests 09/25 045 Blood Gas Puncture Site R Rad ABG pH (7.35 - 7.45) 6.871 *L ABG pCO2 (35 - 45 mmHg) 9.5 *L ABG pO2 (80 - 100 mmHg) 133 H ABG HCO3 (22.0 - 26.0 mmol/L) 1.9 L ABG Total CO2 < 5 ABG O2 Saturation (90 - 100 %) 97 ABG Base Excess (-4 - 4 mmol/L) < -30.0 L Temperature (F) 91.7 O2 Delivery Device Room Air Laboratory Tests 09/25 09/25 09/25 09/25 09/25 0726 0625 0355 0348 0345Chemistry POC Glucose (70 - 110 MG/DL) 107 147 H Lactic Acid (0.4 - 1.9 mmol/l) 19.1 *H 14.8 *H B-Natriuretic Peptide (0 - 100 304.2 HPG/ML) 09/25 0345 Chemistry Sodium (134 - 147 mEq/L) 144 Potassium (3.4 - 5.0 mEq/L) 3.2 L Chloride (100 - 108 mEq/L) 114 H Carbon Dioxide (21 - 33 mEq/L) 4 L Anion Gap (0 - 20) 29 H BUN (7 - 18 mg/dL) 69 H Creatinine (0.6 - 1.3 mg/dL) 3.9 H Glomerular Filtr Rate (70 - 80) 11.4 L Glucose (70 - 110 mg/dL) 100 Calcium (8.0 - 10.5 mg/dL) 5.6 *L Magnesium (1.8 - 2.4 mg/dL) 0.90 *L Total Bilirubin (<1.5 MG/DL) 0.2 Direct Bilirubin (0.0 - 0.30 MG/DL) < 0.10 Indirect Bilirubin (MG/DL) 0.10 AST (15 - 37 IUnit/L) 7 L ALT (15 - 65 IUnit/L) 12 L Total Alk Phosphatase (20 - 125 IUnit/L) 39 Troponin I (0.000 - 0.045 ng/mL) 0.029 Total Protein (6.4 - 8.2 g/dL) 5.1 L Albumin (3.4 - 5.0 g/dL) 2.30 L Lipase (73 - 393 IUnit/L) 139 TSH (0.42 - 5.47 IU/mL) 0.68 Laboratory Tests 09/25 0345 Coagulation INR (0.8 - 1.2) 1.1 PTT ([place]) (25.0 - 39.5 Seconds) 22.2 L PT Patient/Control Mix (9.3 - 12.9 SECONDS) 11.7 Laboratory Tests 09/25 0345 Hematology WBC (4.5 - 11.0 x10 3/uL) 22.50 H RBC (3.54 - 5.02 x10 6/uL) 4.48 Hgb (11.0 - 15.0 g/dL) 13.5 Hct (33.0 - 45.0 %) 44.2 MCV (81.0 - 99.0 fL) 98.7 MCH (27.0 - 33.0 pg) 30.1 MCHC (33.0 - 37.0 g/dL) 30.5 L RDW (11.5 - 14.5 %) 13.4 Plt Count (150 - 400 x10 3/uL) 331 MPV (7.0 - 9.0 fL) 12.1 H Add Manual Diff YES Seg Neutrophils % (37 - 69 %) 90.9 H Lymphocytes % (Manual) (23 - 55 %) 4.6 L Monocytes % (Manual) (0 - 10 %) 3.6 Myelocytes (0.0 - 0.0 %) 0.9 H Platelet Estimate (ADEQUATE THOUSAND) Adequate Plt Morphology Comment LARGE PLATELETS Poikilocytosis 2+ Laboratory Tests 09/255 Urines Urine Color (YEL/STRAW) YELLOW Urine Appearance (CLEAR) SL CLOUDY Urine pH (5.0 - 7.0) 5.0 Ur Specific [place] (1.005 - 1.030) 1.011 Urine Protein (NEGATIVE) 2+ H Urine Glucose (UA) (NEGATIVE) 2+ H Urine Ketones (NEGATIVE) TRACE H Urine Blood (NEGATIVE) 1+ H Urine Nitrite (NEGATIVE) NEGATIVE Urine Bilirubin (NEGATIVE) NEGATIVE Urine Urobilinogen (0.2 - 1.0 mg/dL) 0.2 Ur Leukocyte Esterase (NEGATIVE) TRACE H Urine RBC (0 - 3 RBC/HPF) 4-10 Urine WBC (0 - 3 WBC/HPF) 4-9 H Ur Squamous Epith Cells (NONE SEEN /HPF) 0-5 Urine Bacteria (NONE SEEN /HPF) 1+ H Urine Mucus (NONE SEEN /LPF) TRACE Urine Yeast (NONE /HPF) 1+ H Recent Impressions:RADIOLOGY - XR CHEST 1 V 09/25 0405 Report Impression - Status: SIGNED Entered: 09/26/2019 0413 IMPRESSION: Mildly hyperinflated, but clear lungs. Lucency beneath the left hemidiaphragm likely related to a mildlydilated gas-filled stomach. An upright view of the abdomen would beconfirmatory and better exclude pneumoperitoneum. SL: TPAINTER-HImpression By: Bridget Edward M.D.RADIOLOGY - XR CHEST 1 V 09/25 0532 Report Impression - Status: SIGNED Entered: 09/26/2019 0546 IMPRESSION: Hypoinflation associated with interval right IJ central line insertiontip overlying the atriocaval junction without pneumothorax. SL: TPAINTER-HImpression By: Bridget Edward M.D.CAT SCAN - CT C-SPINE W/O CONT 09/25 0546 Report Impression - Status: SIGNED Entered: 09/26/2019 0607 IMPRESSION: Mild cervical spondylosis and facet arthrosis without acute fractureor dislocation. Mild chronic bilateral mastoiditis. SL: TPAINTER-HImpression By: Bridget Edward M.D.CAT SCAN - CT HEAD/BRAIN W/O CONT 09/25 545 Report Impression - Status: SIGNED Entered: 09/26/2019611 IMPRESSION: Mild to moderate diffuse atrophy is present associated with mildnonspecific periventricular low attenuation most consistent with oldmicroangiopathic ischemic change. No acute intracranial abnormality. Small old appearing lacunar infarctions in both basal ganglia and leftthalamus. Mild chronic sinusitis. Minimal chronic bilateral mastoiditis. SL: TPAINTER-HImpression By: Bridget Edward M.D.CAT SCAN - CT CHEST W/O CONTRAST 09/25 545 Report Impression - Status: SIGNED Entered: 09/26/2019631 IMPRESSION: Nonspecific nonobstructive bowel gas pattern associated with milddiffuse colonic wall thickening either related to underdistention ornonspecific colitis. Mild submucosal fat seen in the colon suggestchronic colonic inflammatory change. Mild sigmoid diverticulosis. Moderately dilated stomach with areas of asymmetric wall thickening inthe antrum and greater gastric curvature that may represent gastritisor underlying neoplasm. Follow-up upper GI or endoscopy may behelpful. Additionally, a radionuclide gastric emptying study may behelpful if gastroparesis is suspected clinically. Mild left renal cortical atrophy associated with a small mildlycomplex cyst. Further evaluation may be obtained with renalultrasound. Tiny focus of gas in the urinary bladder may represent recentcatheterization or cold fistula with bowel. Mild diffuse anasarca. Normal size heart associated with moderate coronary arterycalcifications. Mild hyperinflation associated with subsegmental atelectasis andscarring in both lungs greatest in the lung bases. Mild to moderate abdominal aortic atherosclerosis associated withinfrarenal aneurysm measuring 3.1 cm maximum transverse dimension. Mild soft tissue gas in the right anterior abdominal and pelvic walllikely related to recent medication injection. Postoperative change of cholecystectomy. SL: TPAINTER-HImpression By: Bridget Edward M.D.CAT SCAN - CT ABD PELVIS W/O CONT 09/25 545 Report Impression - Status: SIGNED Entered: 09/26/2019631 IMPRESSION: Nonspecific nonobstructive bowel gas pattern associated with milddiffuse colonic wall thickening either related to underdistention ornonspecific colitis. Mild submucosal fat seen in the colon suggestchronic colonic inflammatory change. Mild sigmoid diverticulosis. Moderately dilated stomach with areas of asymmetric wall thickening inthe antrum and greater gastric curvature that may represent gastritisor underlying neoplasm. Follow-up upper GI or endoscopy may behelpful. Additionally, a radionuclide gastric emptying study may behelpful if gastroparesis is suspected clinically. Mild left renal cortical atrophy associated with a small mildlycomplex cyst. Further evaluation may be obtained with renalultrasound. Tiny focus of gas in the urinary bladder may represent recentcatheterization or cold fistula with bowel. Mild diffuse anasarca. Normal size heart associated with moderate coronary arterycalcifications. Mild hyperinflation associated with subsegmental atelectasis andscarring in both lungs greatest in the lung bases. Mild to moderate abdominal aortic atherosclerosis associated withinfrarenal aneurysm measuring 3.1 cm maximum transverse dimension. Mild soft tissue gas in the right anterior abdominal and pelvic walllikely related to recent medication injection. Postoperative change of cholecystectomy. SL: TPAINTER-HImpression By: [email or web address] - Amadeo Edward M.D. Laboratory Tests 09/25 045 Blood Gas Puncture Site R Rad ABG pH (7.35 - 7.45) 6.871 *L ABG pCO2 (35 - 45 mmHg) 9.5 *L ABG pO2 (80 - 100 mmHg) 133 H ABG HCO3 (22.0 - 26.0 mmol/L) 1.9 L ABG Total CO2 < 5 ABG O2 Saturation (90 - 100 %) 97 ABG Base Excess (-4 - 4 mmol/L) < -30.0 L Temperature (F) 91.7 O2 Delivery Device Room Air Laboratory Tests 09/25 09/25 09/25 09/25 09/25 0726 0625 0355 0348 0345Chemistry POC Glucose (70 - 110 MG/DL) 107 147 H Lactic Acid (0.4 - 1.9 mmol/l) 19.1 *H 14.8 *H B-Natriuretic Peptide (0 - 100 PG/ML) 304.2 H 09/25 0345 Chemistry Sodium (134 - 147 mEq/L) 144 Potassium (3.4 - 5.0 mEq/L) 3.2 L Chloride (100 - 108 mEq/L) 114 H Carbon Dioxide (21 - 33 mEq/L) 4 L Anion Gap (0 - 20) 29 H BUN (7 - 18 mg/dL) 69 H Creatinine (0.6 - 1.3 mg/dL) 3.9 H Glomerular Filtr Rate (70 - 80) 11.4 L Glucose (70 - 110 mg/dL) 100 Calcium (8.0 - 10.5 mg/dL) 5.6 *L Magnesium (1.8 - 2.4 mg/dL) 0.90 *L Total Bilirubin (<1.5 MG/DL) 0.2 Direct Bilirubin (0.0 - 0.30 MG/DL) < 0.10 Indirect Bilirubin (MG/DL) 0.10 AST (15 - 37 IUnit/L) 7 L ALT (15 - 65 IUnit/L) 12 L Total Alk Phosphatase (20 - 125 IUnit/L) 39 Troponin I (0.000 - 0.045 ng/mL) 0.029 Total Protein (6.4 - 8.2 g/dL) 5.1 L Albumin (3.4 - 5.0 g/dL) 2.30 L Lipase (73 - 393 IUnit/L) 139 TSH (0.42 - 5.47 IU/mL) 0.68 Laboratory Tests 09/25 0345 Coagulation INR (0.8 - 1.2) 1.1 PTT ([place]) (25.0 - 39.5 Seconds) 22.2 L PT Patient/Control Mix (9.3 - 12.9 SECONDS) 11.7 Laboratory Tests 09/25 0345 Hematology WBC (4.5 - 11.0 x10 3/uL) 22.50 H RBC (3.54 - 5.02 x10 6/uL) 4.48 Hgb (11.0 - 15.0 g/dL) 13.5 Hct (33.0 - 45.0 %) 44.2 MCV (81.0 - 99.0 fL) 98.7 MCH (27.0 - 33.0 pg) 30.1 MCHC (33.0 - 37.0 g/dL) 30.5 L RDW (11.5 - 14.5 %) 13.4 Plt Count (150 - 400 x10 3/uL) 331 MPV (7.0 - 9.0 fL) 12.1 H Add Manual Diff YES Seg Neutrophils % (37 - 69 %) 90.9 H Lymphocytes % (Manual) (23 - 55 %) 4.6 L Monocytes % (Manual) (0 - 10 %) 3.6 Myelocytes (0.0 - 0.0 %) 0.9 H Platelet Estimate (ADEQUATE THOUSAND) Adequate Plt Morphology Comment LARGE PLATELETS Poikilocytosis 2+ Laboratory Tests 09/25 0415 Urines Urine Color (YEL/STRAW) YELLOW Urine Appearance (CLEAR) SL CLOUDY Urine pH (5.0 - 7.0) 5.0 Ur Specific [place] (1.005 - 1.030) 1.011 Urine Protein (NEGATIVE) 2+ H Urine Glucose (UA) (NEGATIVE) 2+ H Urine Ketones (NEGATIVE) TRACE H Urine Blood (NEGATIVE) 1+ H Urine Nitrite (NEGATIVE) NEGATIVE Urine Bilirubin (NEGATIVE) NEGATIVE Urine Urobilinogen (0.2 - 1.0 mg/dL) 0.2 Ur Leukocyte Esterase (NEGATIVE) TRACE H Urine RBC (0 - 3 RBC/HPF) 4-10 Urine WBC (0 - 3 WBC/HPF) 4-9 H Ur Squamous Epith Cells (NONE SEEN /HPF) 0-5 Urine Bacteria (NONE SEEN /HPF) 1+ H Urine Mucus (NONE SEEN /LPF) TRACE Urine Yeast (NONE /HPF) 1+ H Diagnosis, Assessment Plan Free Text DxA P NotesFree Text DxA P Notes:Patient seen and evaluated, discussed with care team, images and laboratories reviewed.History of dementiaHistory of rheumatoid arthritisHistory of frequent fallsHistory of frequent UTIsHistory of hypertension: Currently hypotensiveHypokalemia: We will supplementSevere hypomagnesemia we will supplementHypocalcemia: We will supplementHypoalbuminemiaSevere lactic acidosis: Etiology, could be related to septic shock, however source is unclear, rule out ischemic bowel, Zosyn, will need to review her medications if patient has been on metformin, lactic acidosis due to metformin in the setting of acute renal failure is a possibility and will do hemodialysis in the setting.Patient has been taking Metformin 1000 BID, kenneth has lactic acidosis that is induced by Metformin, discussed with deysi and ICC/Primary team will proceed with HD at 1122 RPT #:[id number] OF [id number].[id number] for patient [id number]:22:39 [facility]ACL 2019-09-26 07:00:00 [id number] [id number]:00:00 [facility] ([facility])Critical Care Consult NoteREPORT#:[id number] REPORT STATUS: SignedDATE:09/26/19 TIME: 07 PATIENT: MAC AGUSTIN UNIT #: [id number]#: [id number] [address] AGE: 74 SEX: F ATTEND: Joel Myers [facility] AUTHOR: Israel Vaughan MD * ALL edits or amendments must be made on the electronic/computer document * History of Present Illness HPIRequesting clinician: ER PhysicianReason for consult: Severe sepsis and septic shockUrine tract infectionSevere lactic acidosisSevere metabolic acidosisAcute renal failureLeukocytosisDehydrationDiarrheaHypothermiaChief complaint:Not feeling wellLow urine outputAltered mental statusIncreased thirstDecreased p.o. intake HPI: 74 years old female with past medical history significant for Alzheimer's dementia, behavioral disturbance, hypertension, type 2 diabetes mellitus, migraine headaches, anxiety disorder, bowel and bladder incontinence, rheumatoidarthritis, frequent UTI was brought from the correction. She has been unwell for the past few days. Upon arrival she was found to be hypothermic with a temperature of 33.1 C, profound lactic acidosis at 14, metabolic acidosis with pH of 6.8 and hypercapnia due to respiratory compensation at PCO2 of 9.5 mmHg. Patient is awake, follows commands minimally and answers few yes and no questions. Acute renal failure with a creatinine of 3.9. Has received cefepime, vancomycin and 1 L of crystalloid with a right internal jugular central venouscatheter in place. Upon my assessment her blood pressure is 80/58 mmHg with a heart rate of 117, irregularly irregular and pulse ox of 74%. She is on bear hugger. White blood cell count is 22,000. Has positive UA. There was a question of pneumoperitoneum on the x-ray of the abdomen. CT of the abdomen didnot confirm that finding. A general surgery consult is awaited. Patient will be broadened to Zosyn and Vanco given correction placement. Concern is about ischemic bowel. Also has diarrhea. No blood was reported in the stool. C. difficile toxin and stool has been sent. Patient received 3 A of sodium bicarbonate in the ER and additional 2 more ampules of sodium bicarbonate has been ordered. Potassium is mildly elevated at 5.0. She will be ordered a gram of calcium chloride and D50/insulin. Urine blood cultures have been sent. Patient is receiving her second and third liter of crystalloid with a pressure bag and Levophed is being started at 5 mics per minute via the central venous catheter. She is DNR/DNI. Patient is going to be admitted to medical ICU room #317. History - Adult longitudinalSmoking status for patients 13 years old or older: Unknown,if ever smokedMedications:Current Hospital Medications:Anti-Infective Agents Sig/Rose Mary Start time Last Medication Dose Route Stop Time Status Admin Piperacillin Sod/ 3.375 GM Q8H 09/25 0615 UNV Tazobactam Sod IV 10/09 0714 (ZOSYN 3.375GM) Sodium Chloride 100 ML (SODIUM CHLORIDE 0.9% 100 ML) Vancomycin HCl 750 MG Q12H 09/25 0715 UNV (VANCOMYCIN HCL) IV 10/25 0714 Sodium Chloride 250 ML (SODIUM CHLORIDE 0.9%) Piperacillin Sod/ 3.375 GM X1ED STA 09/25 0614 DC 09/25 Tazobactam Sod IV 09/25 0643 0646 (ZOSYN 3.375GM) Sodium Chloride 100 ML (SODIUM CHLORIDE 0.9% 100 ML) Cefepime HCl 2 GM X1ED STA 09/25 0348 DC 09/25 (MAXIPIME) IV 09/25 0350 0401 Sodium Chloride 20 ML (SODIUM CHLORIDE) Vancomycin HCl 1,000 MG X1ED STA 09/25 0348 DC 09/25 (VANCOMYCIN HCL) IV 09/25 0447 0401 Sodium Chloride 250 ML (SODIUM CHLORIDE 0.9%) Autonomic Drugs Sig/Rose Mary Start time Last Medication Dose Route Stop Time Status Admin Norepinephrine 250 ML ASDIR PRN 09/25 0700 AC Bitartrate IV 10/25 0659 (NOREPINEPHRINE 8 MG/ NS 250 ML) Norepinephrine 250 ML X1ED STA 09/25 0640 AC 09/25 Bitartrate IV 10/05 1639 0648 (NOREPINEPHRINE 8 MG/ NS 250 ML) Norepinephrine 250 ML .STK-MED ONE 09/25 0640 DC Bitartrate IV (NOREPINEPHRINE 8 MG/ NS 250 ML) Albuterol/Ipratropium 3 ML RTQ4H PRN PRN 09/25 0630 AC (DUONEB) INH 09/26 0529 Central Nervous System Agents Sig/Rose Mary Start time Last Medication Dose Route Stop Time Status Admin Acetaminophen 650 MG Q4H PRN PRN 09/25 0630 AC (TYLENOL) PO 09/26 05 Lorazepam 1 MG Q4H PRN PRN 09/25 06 AC (ATIVAN) IV 09/26 05 Morphine Sulfate 2 MG Q4H PRN PRN 09/25 06 AC (morphine SULFATE) IV 09/26 0529 Ziprasidone 20 MG X1ED STA 09/25 0624 DC (GEODON 20MG VIAL) IM 09/25 0625 Lorazepam 2 MG ONCE ONE 09/25 0445 DC 09/25 (ATIVAN) IV 09/25 044 0513 Lorazepam 0 .STK-MED ONE 09/25 0438 DC (ATIVAN) IV Magnesium Sulfate 100 ML X1ED STA 09/25 0425 AC 09/25 (MAGNESIUM SULFATE IV 09/25 0824 0511 4GM/SWFI 100ML) Electrolytic, Caloric, And Erica Sig/Rose Mary Start time Last Medication Dose Route Stop Time Status Admin Sodium Chloride 1,842 ML BOLUS STA 09/25 0700 DC (SODIUM CHLORIDE IV 09/25 0701 0.9%) Sodium Chloride 0 ASDIR PRN 09/25 0645 AC (SODIUM CHLORIDE) IV 09/26 0529 Sodium Bicarbonate 100 MEQ X1ED STA 09/25 0636 DC 09/25 (SODIUM BICARBONATE) IV 09/25 0637 0656 Potassium Chloride/ 1,000 ML X1ED STA 09/25 0635 AC 09/25 Dextrose/Sod Cl IV 09/25 1434 0700 (D5 0.45%NS + KCl 20mEq 1,000mL) Dextrose/Water 125 ML ASDIR PRN 09/25 06 AC (DEXTROSE 10% IN IV 09/26 0529 WATER) Dextrose/Water 250 ML ASDIR PRN 09/25 0630 AC (DEXTROSE 10% IN IV 09/26 0529 WATER) Lactated Ringer's 1,000 ML X1ED STA 09/25 0623 DC 09/25 (LACTATED RINGERS) IV 09/25 0624 0647 Sodium Chloride 0 ASDIR PRN 09/25 0445 AC (SODIUM CHLORIDE) IV 10/25 0444 Calcium Gluconate 1,000 MG X1ED STA 09/25 0424 DC 09/25 (Calcium Gluconate) IV 09/25 0433 0512 Sodium Chloride 50 ML (Sodium Chloride 50ML) Calcium Gluconate 1,000 MG X1ED STA 09/25 0424 DC 09/25 (Calcium Gluconate) IV 09/25 0433 0513 Sodium Chloride 50 ML (Sodium Chloride 50ML) Sodium Bicarbonate 150 MEQ X1ED STA 09/25 0424 DC 09/25 (SODIUM BICARBONATE) IV 09/25 0425 0511 Sodium Chloride 1,000 ML X1ED STA 09/25 0347 DC 09/25 (SODIUM CHLORIDE IV 09/25 0446 0401 0.9%) Sodium Chloride 1,000 ML X1ED STA 09/25 0347 AC 09/25 (SODIUM CHLORIDE IV 09/25 1146 0402 0.9%) Sodium Chloride 0 ASDIR PRN 09/25 0345 AC (SODIUM CHLORIDE) IV 09/26 0240 Gastrointestinal Drugs Sig/Rose Mary Start time Last Medication Dose Route Stop Time Status Admin Ondansetron HCl 4 MG Q6H PRN PRN 09/25 0630 AC (ZOFRAN) IV 09/26 0529 Hormones And Synthetic Substit Sig/Rose Mary Start time Last Medication Dose Route Stop Time Status Admin Insulin Human Lispro 0 AC HS 09/25 0730 AC (HUMALOG) SUBQ 09/26 0529 Glucagon 1 MG ASDIR PRN 09/25 0630 AC (GLUCAGON) IM 09/26 0529 Pharmaceutical Aids Sig/Rose Mary Start time Last Medication Dose Route Stop Time Status Admin Sterile Water 1.2 ML ASDIR 09/25 0630 AC (WATER FOR INJECTION) IM 09/26 0524 Allergies:Coded Allergies:penicillamine (UNKNOWN 09/26/19) Review of SystemsUnable to obtain due to:Patient is profoundly acidotic both metabolic and lactic, opens eyes, answers yes and no questions but did not follow commands very well. Objective Physical Exam:VS/I O:Last Documented: Result Date Time O2 Delivery Nasal cannula 09/25 045 O2 Flow Rate 3.305774 09/26 451 Temp 33.1 09/25 0439 Pulse Ox 95 09/25 0339 B/P 139/94 09/25 033 B/P Mean 109 09/25 338 Pulse 113 09/25 338 Resp 26 09/25 338 24 hour I O ending at 0700: 09/25 0700 09/24 1900 Intake Total Output Total Balance Patient 61.4 kg Weight Weight Bed scale Measurement Method Medications:Active Meds + DC'd Last 24 HrsInsulin Human Lispro 0 AC HS SUBQ Piperacillin Sod/Tazobactam Sod 3.375 GM Q8H IV (UNV) Sodium Chloride 100 MLVancomycin HCl 750 MG Q12H IV (UNV) Sodium Chloride 250 MLNorepinephrine Bitartrate 250 ML ASDIR PRN IV Sodium Chloride 1,842 ML BOLUS STA IV (DC) Sodium Chloride 0 ASDIR PRN IV Norepinephrine Bitartrate 250 ML X1ED STA IV Norepinephrine Bitartrate 250 ML .STK-MED ONE IV (DC) Sodium Bicarbonate 100 MEQ X1ED STA IV (DC) Potassium Chloride/Dextrose/Sod Cl 1,000 ML X1ED STA IV Acetaminophen 650 MG Q4H PRN PRN PO Albuterol/Ipratropium 3 ML RTQ4H PRN PRN INH Dextrose/Water 125 ML ASDIR PRN IV Dextrose/Water 250 ML ASDIR PRN IV Glucagon 1 MG ASDIR PRN IM Lorazepam 1 MG Q4H PRN PRN IV Morphine Sulfate 2 MG Q4H PRN PRN IV Ondansetron HCl 4 MG Q6H PRN PRN IV Sterile Water 1.2 ML ASDIR IM Ziprasidone 20 MG X1ED STA IM (DC) Lactated Ringer's 1,000 ML X1ED STA IV (DC) Piperacillin Sod/Tazobactam Sod 3.375 GM X1ED STA IV (DC) Sodium Chloride 100 MLLorazepam 2 MG ONCE ONE IV (DC) Sodium Chloride 0 ASDIR PRN IV Lorazepam 0 .STK-MED ONE IV (DC) Magnesium Sulfate 100 ML X1ED STA IV Calcium Gluconate 1,000 MG X1ED STA IV (DC) Sodium Chloride 50 MLCalcium Gluconate 1,000 MG X1ED STA IV (DC) Sodium Chloride 50 MLSodium Bicarbonate 150 MEQ X1ED STA IV (DC) Cefepime HCl 2 GM X1ED STA IV (DC) Sodium Chloride 20 MLVancomycin HCl 1,000 MG X1ED STA IV (DC) Sodium Chloride 250 MLSodium Chloride 1,000 ML X1ED STA IV (DC) Sodium Chloride 1,000 ML X1ED STA IV Sodium Chloride 0 ASDIR PRN IV General appearance: altered mental status, chronically ill appearing, frail, lethargic, awakeHead/Eyes: atraumatic, normocephalic, PERRLENT: dry mucosal membrane, normal noseNeck: normal thyroid, supple/no meningismus, no bruit/NL carotids, no JVD, no lymphadenopathyCardiovascular: tachycardia, normal heart sounds, normal S1 S2, no rub, no gallopRespiratory/Chest: decreased breath sounds, clear to auscultation, symmetric expansion, no tenderness, dyspnea, tachypneaAbdomen: soft, non-tender, normal bowel sounds, no distention, no guarding, no mass/organomegalyGenitourinary: ballard, no bladder distention, no flank painExtremities: no calf tenderness, no cyanosis, no edema, no pedal edemaMusculoskeletal: decreased ROMNeuro/FAST FOOD ATTENDANT: no sensory deficits Results:Findings/Data:Laboratory Tests 09/26/19 0345:[Embedded Image Not Available]Laboratory Tests 09/25 045 Blood Gas Puncture Site R Rad ABG pH (7.35 - 7.45) 6.871 *L ABG pCO2 (35 - 45 mmHg) 9.5 *L ABG pO2 (80 - 100 mmHg) 133 H ABG HCO3 (22.0 - 26.0 mmol/L) 1.9 L ABG Total CO2 < 5 ABG O2 Saturation (90 - 100 %) 97 ABG Base Excess (-4 - 4 mmol/L) < -30.0 L Temperature (F) 91.7 O2 Delivery Device Room Air Laboratory Tests 09/25 09/25 09/25 09/25 0625 0355 0348 0345 Chemistry POC Glucose (70 - 110 MG/DL) 147 H Lactic Acid (0.4 - 1.9 mmol/l) 19.1 *H 14.8 *H B-Natriuretic Peptide (0 - 100 PG/ML) 304.2 H 09/25 034 Chemistry Sodium (134 - 147 mEq/L) 144 Potassium (3.4 - 5.0 mEq/L) 3.2 L Chloride (100 - 108 mEq/L) 114 H Carbon Dioxide (21 - 33 mEq/L) 4 L Anion Gap (0 - 20) 29 H BUN (7 - 18 mg/dL) 69 H Creatinine (0.6 - 1.3 mg/dL) 3.9 H Glomerular Filtr Rate (70 - 80) 11.4 L Glucose (70 - 110 mg/dL) 100 Calcium (8.0 - 10.5 mg/dL) 5.6 *L Magnesium (1.8 - 2.4 mg/dL) 0.90 *L Total Bilirubin (<1.5 MG/DL) 0.2 Direct Bilirubin (0.0 - 0.30 MG/DL) < 0.10 Indirect Bilirubin (MG/DL) 0.10 AST (15 - 37 IUnit/L) 7 L ALT (15 - 65 IUnit/L) 12 L Total Alk Phosphatase (20 - 125 IUnit/L) 39 Troponin I (0.000 - 0.045 ng/mL) 0.029 Total Protein (6.4 - 8.2 g/dL) 5.1 L Albumin (3.4 - 5.0 g/dL) 2.30 L Lipase (73 - 393 IUnit/L) 139 TSH (0.42 - 5.47 IU/mL) 0.68 Laboratory Tests 09/25 0345 Coagulation INR (0.8 - 1.2) 1.1 PTT (Rajendra) (25.0 - 39.5 Seconds) 22.2 L PT Patient/Control Mix (9.3 - 12.9 SECONDS) 11.7 Laboratory Tests 09/25 0345 Hematology WBC (4.5 - 11.0 x10 3/uL) 22.50 H RBC (3.54 - 5.02 x10 6/uL) 4.48 Hgb (11.0 - 15.0 g/dL) 13.5 Hct (33.0 - 45.0 %) 44.2 MCV (81.0 - 99.0 fL) 98.7 MCH (27.0 - 33.0 pg) 30.1 MCHC (33.0 - 37.0 g/dL) 30.5 L RDW (11.5 - 14.5 %) 13.4 Plt Count (150 - 400 x10 3/uL) 331 MPV (7.0 - 9.0 fL) 12.1 H Add Manual Diff YES Seg Neutrophils % (37 - 69 %) 90.9 H Lymphocytes % (Manual) (23 - 55 %) 4.6 L Monocytes % (Manual) (0 - 10 %) 3.6 Myelocytes (0.0 - 0.0 %) 0.9 H Platelet Estimate (ADEQUATE THOUSAND) Adequate Plt Morphology Comment LARGE PLATELETS Poikilocytosis 2+ Laboratory Tests 09/25 414 Urines Urine Color (YEL/STRAW) YELLOW Urine Appearance (CLEAR) SL CLOUDY Urine pH (5.0 - 7.0) 5.0 Ur Specific [place] (1.005 - 1.030) 1.011 Urine Protein (NEGATIVE) 2+ H Urine Glucose (UA) (NEGATIVE) 2+ H Urine Ketones (NEGATIVE) TRACE H Urine Blood (NEGATIVE) 1+ H Urine Nitrite (NEGATIVE) NEGATIVE Urine Bilirubin (NEGATIVE) NEGATIVE Urine Urobilinogen (0.2 - 1.0 mg/dL) 0.2 Ur Leukocyte Esterase (NEGATIVE) TRACE H Urine RBC (0 - 3 RBC/HPF) 4-10 Urine WBC (0 - 3 WBC/HPF) 4-9 H Ur Squamous Epith Cells (NONE SEEN /HPF) 0-5 Urine Bacteria (NONE SEEN /HPF) 1+ H Urine Mucus (NONE SEEN /LPF) TRACE Urine Yeast (NONE /HPF) 1+ H Microbiology:09/25 040 BLOOD: Blood Culture - RECD09/25 0345 BLOOD: Blood Culture - RECD09/25 0341 NASAL: MRSA DNA Surveillance Screen - ORD Radiology data:Recent Impressions:RADIOLOGY - XR CHEST 1 V 09/25 0405 Report Impression - Status: SIGNED Entered: 09/26/2019 0413 IMPRESSION: Mildly hyperinflated, but clear lungs. Lucency beneath the left hemidiaphragm likely related to a mildlydilated gas-filled stomach. An upright view of the abdomen would beconfirmatory and better exclude pneumoperitoneum. SL: TPAINTER-HImpression By: Bridget - Amadeo Edward M.D.RADIOLOGY - XR CHEST 1 V 09/25 0532 Report Impression - Status: SIGNED Entered: 09/26/2019 0546 IMPRESSION: Hypoinflation associated with interval right IJ central line insertiontip overlying the atriocaval junction without pneumothorax. SL: TPAINTER-HImpression By: Bridget Edward M.D.CAT SCAN - CT C-SPINE W/O CONT 09/25 545 Report Impression - Status: SIGNED Entered: 09/26/2019 0607 IMPRESSION: Mild cervical spondylosis and facet arthrosis without acute fractureor dislocation. Mild chronic bilateral mastoiditis. SL: TPAINTER-HImpression By: Bridget Edward M.D.CAT SCAN - CT HEAD/BRAIN W/O CONT 09/25 545 Report Impression - Status: SIGNED Entered: 09/26/2019 0612 IMPRESSION: Mild to moderate diffuse atrophy is present associated with mildnonspecific periventricular low attenuation most consistent with oldmicroangiopathic ischemic change. No acute intracranial abnormality. Small old appearing lacunar infarctions in both basal ganglia and leftthalamus. Mild chronic sinusitis. Minimal chronic bilateral mastoiditis. SL: TPAINTER-HImpression By: Bridget Edward M.D.CAT SCAN - CT CHEST W/O CONTRAST 09/25 545 Report Impression - Status: SIGNED Entered: 09/26/2019 0632 IMPRESSION: Nonspecific nonobstructive bowel gas pattern associated with milddiffuse colonic wall thickening either related to underdistention ornonspecific colitis. Mild submucosal fat seen in the colon suggestchronic colonic inflammatory change. Mild sigmoid diverticulosis. Moderately dilated stomach with areas of asymmetric wall thickening inthe antrum and greater gastric curvature that may represent gastritisor underlying neoplasm. Follow-up upper GI or endoscopy may behelpful. Additionally, a radionuclide gastric emptying study may behelpful if gastroparesis is suspected clinically. Mild left renal cortical atrophy associated with a small mildlycomplex cyst. Further evaluation may be obtained with renalultrasound. Tiny focus of gas in the urinary bladder may represent recentcatheterization or cold fistula with bowel. Mild diffuse anasarca. Normal size heart associated with moderate coronary arterycalcifications. Mild hyperinflation associated with subsegmental atelectasis andscarring in both lungs greatest in the lung bases. Mild to moderate abdominal aortic atherosclerosis associated withinfrarenal aneurysm measuring 3.1 cm maximum transverse dimension. Mild soft tissue gas in the right anterior abdominal and pelvic walllikely related to recent medication injection. Postoperative change of cholecystectomy. SL: TPAINTER-HImpression By: Bridget Edward M.D.CAT SCAN - CT ABD PELVIS W/O CONT 09/25 0546 Report Impression - Status: SIGNED Entered: 09/26/2019 0632 IMPRESSION: Nonspecific nonobstructive bowel gas pattern associated with milddiffuse colonic wall thickening either related to underdistention ornonspecific colitis. Mild submucosal fat seen in the colon suggestchronic colonic inflammatory change. Mild sigmoid diverticulosis. Moderately dilated stomach with areas of asymmetric wall thickening inthe antrum and greater gastric curvature that may represent gastritisor underlying neoplasm. Follow-up upper GI or endoscopy may behelpful. Additionally, a radionuclide gastric emptying study may behelpful if gastroparesis is suspected clinically. Mild left renal cortical atrophy associated with a small mildlycomplex cyst. Further evaluation may be obtained with renalultrasound. Tiny focus of gas in the urinary bladder may represent recentcatheterization or cold fistula with bowel. Mild diffuse anasarca. Normal size heart associated with moderate coronary arterycalcifications. Mild hyperinflation associated with subsegmental atelectasis andscarring in both lungs greatest in the lung bases. Mild to moderate abdominal aortic atherosclerosis associated withinfrarenal aneurysm measuring 3.1 cm maximum transverse dimension. Mild soft tissue gas in the right anterior abdominal and pelvic walllikely related to recent medication injection. Postoperative change of cholecystectomy. SL: TPAINTER-HImpression By: Bridget Edward M.D. Diagnosis, Assessment Plan Diagnosis, Assessment PlanProblem List/A P: 1. Acute renal failure 2. Hyperkalemia 3. Physical deconditioning 4. Hypomagnesemia 5. Sepsis 6. Acute hypoactive delirium due to another medical condition 7. Lactic acidosis 8. Arterial hypotension Free Text A P: Problem List: Severe sepsis and septic shockUrine tract infectionSevere lactic acidosisSevere metabolic acidosisAcute renal failureLeukocytosisDehydrationDiarrheaHypothermia Assessment and Plan: 74 years old female with past medical history significant for Alzheimer's dementia, behavioral disturbance, hypertension, type 2 diabetes mellitus, migraine headaches, anxiety disorder, bowel and bladder incontinence, rheumatoidarthritis, frequent UTI was brought from the correction. She has been unwell for the past few days. Upon arrival she was found to be hypothermic with a temperature of 33.1 C, profound lactic acidosis at 14, metabolic acidosis with pH of 6.8 and hypercapnia due to respiratory compensation at PCO2 of 9.5 mmHg. Patient is awake, follows commands minimally and answers few yes and no questions. Acute renal failure with a creatinine of 3.9. Has received cefepime, vancomycin and 1 L of crystalloid with a right internal jugular central venouscatheter in place. Upon my assessment her blood pressure is 80/58 mmHg with a heart rate of 117, irregularly irregular and pulse ox of 74%. She is on bear hugger. White blood cell count is 22,000. Has positive UA. There was a question of pneumoperitoneum on the x-ray of the abdomen. CT of the abdomen didnot confirm that finding. A general surgery consult is awaited. Patient will be broadened to Zosyn and Vanco given correction placement. Concern is about ischemic bowel. Also has diarrhea. No blood was reported in the stool. C. difficile toxin and stool has been sent. Patient received 3 A of sodium bicarbonate in the ER and additional 2 more ampules of sodium bicarbonate has been ordered. Potassium is mildly elevated at 5.0. She will be ordered a gram of calcium chloride and D50/insulin. Urine blood cultures have been sent. Patient is receiving her second and third liter of crystalloid with a pressure bag and Levophed is being started at 5 mics per minute via the central venous catheter. She is DNR/DNI. Patient is going to be admitted to medical ICU room #317. Patient is being admitted to medical ICU room #317She is DNR/DNIPatient has profound gram-negative sepsis with severe metabolic and lactic acidosisShe is awake, interactive minimally and follows some commandHas lactic acid of 14.8Has received 1 L of crystalloid so farWill be ordered 30 mL/kg body weight fluid resuscitation and repeat lactate within 3 hoursUrine and blood cultures have been sentPatient received vancomycin and cefepime in the ERBroad-spectrum antibiotic coverage with vancomycin and ZosynWe will check C. difficile toxin and stool given diarrhea nursing homeWhite count is elevated 22,000Chest x-ray did not reveal any pneumonia/consolidation/atelectasisUA is positive for sediment consistent with UAHas profound hypercapnia with a CO2 of 9.5 mmol manifesting adequate respiratorycompensation for profound lactic and metabolic acidosispH is 6.8Recheck ABGPatient is received total of 5 ampoules of sodium bicarbonate to a total of 250 mEqGeneral surgery consult is being quested for question pneumoperitoneum on the chest x-rayCT of the abdomen pelvis report is awaitedConcern for bowel ischemiaHas significant hypothermia with a temperature of 33.1 CPatient is on bear hugger DVT and GI prophylaxis Israel Vaughan MD [facility].25 AMConsultants: critical care/marine pipefitter helper, hospitalist, nephrologyPlan discussed with: nurseCritical care time: Minutes: 65 Code Status/Resusc. DiscussionCode status: do not resuscitate at 0726 RPT #:[id number] OF [id number]:00:[id number] for patient [id number]:27:[address] [facility] 2019-09-26 07:00:00 [id number]:00:00 [facility])Critical Care Consult NoteREPORT#:[id number] REPORT STATUS: SignedDATE:09/26/19 TIME: 0700 PATIENT: MAC AGUSTIN UNIT #: [id number]#: [id number] [address] [birth year] AGE: 74 SEX: F ATTEND: Joel Myers AUTHOR: Israel Vaughan MD * ALL edits or amendments must be made on the electronic/computer document * See AddendumHistory of Present Illness HPIRequesting clinician: ER PhysicianReason for consult: Severe sepsis and septic shockUrine tract infectionSevere lactic acidosisSevere metabolic acidosisAcute renal failureLeukocytosisDehydrationDiarrheaHypothermiaChief complaint:Not feeling wellLow urine outputAltered mental statusIncreased thirstDecreased p.o. intake HPI: 74 years old female with past medical history significant for Alzheimer's dementia, behavioral disturbance, hypertension, type 2 diabetes mellitus, migraine headaches, anxiety disorder, bowel and bladder incontinence, rheumatoidarthritis, frequent UTI was brought from the correction. She has been unwell for the past few days. Upon arrival she was found to be hypothermic with a temperature of 33.1 C, profound lactic acidosis at 14, metabolic acidosis with pH of 6.8 and hypercapnia due to respiratory compensation at PCO2 of 9.5 mmHg. Patient is awake, follows commands minimally and answers few yes and no questions. Acute renal failure with a creatinine of 3.9. Has received cefepime, vancomycin and 1 L of crystalloid with a right internal jugular central venouscatheter in place. Upon my assessment her blood pressure is 80/58 mmHg with a heart rate of 117, irregularly irregular and pulse ox of 74%. She is on bear hugger. White blood cell count is 22,000. Has positive UA. There was a question of pneumoperitoneum on the x-ray of the abdomen. CT of the abdomen didnot confirm that finding. A general surgery consult is awaited. Patient will be broadened to Zosyn and Vanco given correction placement. Concern is about ischemic bowel. Also has diarrhea. No blood was reported in the stool. C. difficile toxin and stool has been sent. Patient received 3 A of sodium bicarbonate in the ER and additional 2 more ampules of sodium bicarbonate has been ordered. Potassium is mildly elevated at 5.0. She will be ordered a gram of calcium chloride and D50/insulin. Urine blood cultures have been sent. Patient is receiving her second and third liter of crystalloid with a pressure bag and Levophed is being started at 5 mics per minute via the central venous catheter. She is DNR/DNI. Patient is going to be admitted to medical ICU room #317. History - Adult longitudinalSmoking status for patients 13 years old or older: Unknown,if ever smokedMedications:Current Hospital Medications:Anti-Infective Agents Sig/Rose Mary Start time Last Medication Dose Route Stop Time Status Admin Piperacillin Sod/ 3.375 GM Q8H 09/25 0715 UNV Tazobactam Sod IV 10/09 0714 (ZOSYN 3.375GM) Sodium Chloride 100 ML (SODIUM CHLORIDE 0.9% 100 ML) Vancomycin HCl 750 MG Q12H 09/25 0715 UNV (VANCOMYCIN HCL) IV 10/25 0714 Sodium Chloride 250 ML (SODIUM CHLORIDE 0.9%) Piperacillin Sod/ 3.375 GM X1ED STA 09/25 0614 DC 09/25 Tazobactam Sod IV 09/25 0643 0646 (ZOSYN 3.375GM) Sodium Chloride 100 ML (SODIUM CHLORIDE 0.9% 100 ML) Cefepime HCl 2 GM X1ED STA 09/25 0348 DC 09/25 (MAXIPIME) IV 09/25 0350 0401 Sodium Chloride 20 ML (SODIUM CHLORIDE) Vancomycin HCl 1,000 MG X1ED STA 09/25 0348 DC 09/25 (VANCOMYCIN HCL) IV 09/25 0447 0401 Sodium Chloride 250 ML (SODIUM CHLORIDE 0.9%) Autonomic Drugs Sig/Rose Mary Start time Last Medication Dose Route Stop Time Status Admin Norepinephrine 250 ML ASDIR PRN 09/25 0700 AC Bitartrate IV 10/25 0659 (NOREPINEPHRINE 8 MG/ NS 250 ML) Norepinephrine 250 ML X1ED STA 09/25 0640 AC 09/25 Bitartrate IV 10/05 1639 0648 (NOREPINEPHRINE 8 MG/ NS 250 ML) Norepinephrine 250 ML .STK-MED ONE 09/25 0640 DC Bitartrate IV (NOREPINEPHRINE 8 MG/ NS 250 ML) Albuterol/Ipratropium 3 ML RTQ4H PRN PRN 09/25 0630 AC (DUONEB) INH 09/26 0529 Central Nervous System Agents Sig/Rose Mary Start time Last Medication Dose Route Stop Time Status Admin Acetaminophen 650 MG Q4H PRN PRN 09/25 0630 AC (TYLENOL) PO 09/26 0529 Lorazepam 1 MG Q4H PRN PRN 09/25 0630 AC (ATIVAN) IV 09/26 05 Morphine Sulfate 2 MG Q4H PRN PRN 09/25 0630 AC (morphine SULFATE) IV 09/26 0529 Ziprasidone 20 MG X1ED STA 09/25 0624 DC (GEODON 20MG VIAL) IM 09/25 0625 Lorazepam 2 MG ONCE ONE 09/25 0445 DC 09/25 (ATIVAN) IV 09/25 0446 0513 Lorazepam 0 .STK-MED ONE 09/25 0438 DC (ATIVAN) IV Magnesium Sulfate 100 ML X1ED STA 09/25 0425 AC 09/25 (MAGNESIUM SULFATE IV 09/25 0824 0511 4GM/SWFI 100ML) Electrolytic, Caloric, And Erica Sig/Rose Mary Start time Last Medication Dose Route Stop Time Status Admin Sodium Chloride 1,842 ML BOLUS STA 09/25 0700 DC (SODIUM CHLORIDE IV 09/25 0701 0.9%) Sodium Chloride 0 ASDIR PRN 09/25 0645 AC (SODIUM CHLORIDE) IV 09/26 0529 Sodium Bicarbonate 100 MEQ X1ED STA 09/25 0636 DC 09/25 (SODIUM BICARBONATE) IV 09/25 0637 0656 Potassium Chloride/ 1,000 ML X1ED STA 09/25 0635 AC 09/25 Dextrose/Sod Cl IV 09/25 1434 0700 (D5 0.45%NS + KCl 20mEq 1,000mL) Dextrose/Water 125 ML ASDIR PRN 09/25 0630 AC (DEXTROSE 10% IN IV 09/26 0529 WATER) Dextrose/Water 250 ML ASDIR PRN 09/25 0630 AC (DEXTROSE 10% IN IV 09/26 0529 WATER) Lactated Ringer's 1,000 ML X1ED STA 09/25 0623 DC 09/25 (LACTATED RINGERS) IV 09/25 0624 0647 Sodium Chloride 0 ASDIR PRN 09/25 0445 AC (SODIUM CHLORIDE) IV 10/25 0444 Calcium Gluconate 1,000 MG X1ED STA 09/25 0424 DC 09/25 (Calcium Gluconate) IV 09/25 0433 0512 Sodium Chloride 50 ML (Sodium Chloride 50ML) Calcium Gluconate 1,000 MG X1ED STA 09/25 0424 DC 09/25 (Calcium Gluconate) IV 09/25 0433 0513 Sodium Chloride 50 ML (Sodium Chloride 50ML) Sodium Bicarbonate 150 MEQ X1ED STA 09/25 0424 DC 09/25 (SODIUM BICARBONATE) IV 09/25 0425 0511 Sodium Chloride 1,000 ML X1ED STA 09/25 0347 DC 09/25 (SODIUM CHLORIDE IV 09/25 0446 0401 0.9%) Sodium Chloride 1,000 ML X1ED STA 09/25 0347 AC 09/25 (SODIUM CHLORIDE IV 09/25 1146 0402 0.9%) Sodium Chloride 0 ASDIR PRN 09/25 0345 AC (SODIUM CHLORIDE) IV 09/26 0240 Gastrointestinal Drugs Sig/Rose Mary Start time Last Medication Dose Route Stop Time Status Admin Ondansetron HCl 4 MG Q6H PRN PRN 09/25 629 AC (ZOFRAN) IV 09/26 05 Hormones And Synthetic Substit Sig/Rose Mary Start time Last Medication Dose Route Stop Time Status Admin Insulin Human Lispro 0 AC HS 09/25 0730 AC (HUMALOG) SUBQ 09/26 528 Glucagon 1 MG ASDIR PRN 09/25 629 AC (GLUCAGON) IM 09/26 05 Pharmaceutical Aids Sig/Rose Mary Start time Last Medication Dose Route Stop Time Status Admin Sterile Water 1.2 ML ASDIR 09/25 629 AC (WATER FOR INJECTION) IM 09/27 523 Allergies:Coded Allergies:penicillamine (UNKNOWN 09/26/19) Review of SystemsUnable to obtain due to:Patient is profoundly acidotic both metabolic and lactic, opens eyes, answers yes and no questions but did not follow commands very well. Objective Physical Exam:VS/I O:Last Documented: Result Date Time O2 Delivery Nasal cannula 09/26 451 O2 Flow Rate 3.756582 09/25 045 Temp 33.1 09/25 0439 Pulse Ox 95 09/25 0339 B/P 139/94 09/25 0339 B/P Mean 109 09/25 0339 Pulse 113 09/25 0339 Resp 26 09/25 0339 24 hour I O ending at 0700: 09/25 0700 09/24 1900 Intake Total Output Total Balance Patient 61.4 kg Weight Weight Bed scale Measurement Method Medications:Active Meds + DC'd Last 24 HrsInsulin Human Lispro 0 AC HS SUBQ Piperacillin Sod/Tazobactam Sod 3.375 GM Q8H IV (UNV) Sodium Chloride 100 MLVancomycin HCl 750 MG Q12H IV (UNV) Sodium Chloride 250 MLNorepinephrine Bitartrate 250 ML ASDIR PRN IV Sodium Chloride 1,842 ML BOLUS STA IV (DC) Sodium Chloride 0 ASDIR PRN IV Norepinephrine Bitartrate 250 ML X1ED STA IV Norepinephrine Bitartrate 250 ML .STK-MED ONE IV (DC) Sodium Bicarbonate 100 MEQ X1ED STA IV (DC) Potassium Chloride/Dextrose/Sod Cl 1,000 ML X1ED STA IV Acetaminophen 650 MG Q4H PRN PRN PO Albuterol/Ipratropium 3 ML RTQ4H PRN PRN INH Dextrose/Water 125 ML ASDIR PRN IV Dextrose/Water 250 ML ASDIR PRN IV Glucagon 1 MG ASDIR PRN IM Lorazepam 1 MG Q4H PRN PRN IV Morphine Sulfate 2 MG Q4H PRN PRN IV Ondansetron HCl 4 MG Q6H PRN PRN IV Sterile Water 1.2 ML ASDIR IM Ziprasidone 20 MG X1ED STA IM (DC) Lactated Ringer's 1,000 ML X1ED STA IV (DC) Piperacillin Sod/Tazobactam Sod 3.375 GM X1ED STA IV (DC) Sodium Chloride 100 MLLorazepam 2 MG ONCE ONE IV (DC) Sodium Chloride 0 ASDIR PRN IV Lorazepam 0 .STK-MED ONE IV (DC) Magnesium Sulfate 100 ML X1ED STA IV Calcium Gluconate 1,000 MG X1ED STA IV (DC) Sodium Chloride 50 MLCalcium Gluconate 1,000 MG X1ED STA IV (DC) Sodium Chloride 50 MLSodium Bicarbonate 150 MEQ X1ED STA IV (DC) Cefepime HCl 2 GM X1ED STA IV (DC) Sodium Chloride 20 MLVancomycin HCl 1,000 MG X1ED STA IV (DC) Sodium Chloride 250 MLSodium Chloride 1,000 ML X1ED STA IV (DC) Sodium Chloride 1,000 ML X1ED STA IV Sodium Chloride 0 ASDIR PRN IV General appearance: altered mental status, chronically ill appearing, frail, lethargic, awakeHead/Eyes: atraumatic, normocephalic, PERRLENT: dry mucosal membrane, normal noseNeck: normal thyroid, supple/no meningismus, no bruit/NL carotids, no JVD, no lymphadenopathyCardiovascular: tachycardia, normal heart sounds, normal S1 S2, no rub, no gallopRespiratory/Chest: decreased breath sounds, clear to auscultation, symmetric expansion, no tenderness, dyspnea, tachypneaAbdomen: soft, non-tender, normal bowel sounds, no distention, no guarding, no mass/organomegalyGenitourinary: ballard, no bladder distention, no flank painExtremities: no calf tenderness, no cyanosis, no edema, no pedal edemaMusculoskeletal: decreased ROMNeuro/FAST FOOD ATTENDANT: no sensory deficits Results:Findings/Data:Laboratory Tests 09/26/19 0345:[Embedded Image Not Available]Laboratory Tests 09/26 451 Blood Gas Puncture Site R Rad ABG pH (7.35 - 7.45) 6.871 *L ABG pCO2 (35 - 45 mmHg) 9.5 *L ABG pO2 (80 - 100 mmHg) 133 H ABG HCO3 (22.0 - 26.0 mmol/L) 1.9 L ABG Total CO2 < 5 ABG O2 Saturation (90 - 100 %) 97 ABG Base Excess (-4 - 4 mmol/L) < -30.0 L Temperature (F) 91.7 O2 Delivery Device Room Air Laboratory Tests 09/25 09/25 09/25 09/25 0625 0355 0348 0345 Chemistry POC Glucose (70 - 110 MG/DL) 147 H Lactic Acid (0.4 - 1.9 mmol/l) 19.1 *H 14.8 *H B-Natriuretic Peptide (0 - 100 PG/ML) 304.2 H 09/25 344 Chemistry Sodium (134 - 147 mEq/L) 144 Potassium (3.4 - 5.0 mEq/L) 3.2 L Chloride (100 - 108 mEq/L) 114 H Carbon Dioxide (21 - 33 mEq/L) 4 L Anion Gap (0 - 20) 29 H BUN (7 - 18 mg/dL) 69 H Creatinine (0.6 - 1.3 mg/dL) 3.9 H Glomerular Filtr Rate (70 - 80) 11.4 L Glucose (70 - 110 mg/dL) 100 Calcium (8.0 - 10.5 mg/dL) 5.6 *L Magnesium (1.8 - 2.4 mg/dL) 0.90 *L Total Bilirubin (<1.5 MG/DL) 0.2 Direct Bilirubin (0.0 - 0.30 MG/DL) < 0.10 Indirect Bilirubin (MG/DL) 0.10 AST (15 - 37 IUnit/L) 7 L ALT (15 - 65 IUnit/L) 12 L Total Alk Phosphatase (20 - 125 IUnit/L) 39 Troponin I (0.000 - 0.045 ng/mL) 0.029 Total Protein (6.4 - 8.2 g/dL) 5.1 L Albumin (3.4 - 5.0 g/dL) 2.30 L Lipase (73 - 393 IUnit/L) 139 TSH (0.42 - 5.47 IU/mL) 0.68 Laboratory Tests 09/25 0345 Coagulation INR (0.8 - 1.2) 1.1 PTT (Rajendra) (25.0 - 39.5 Seconds) 22.2 L PT Patient/Control Mix (9.3 - 12.9 SECONDS) 11.7 Laboratory Tests 09/25 0345 Hematology WBC (4.5 - 11.0 x10 3/uL) 22.50 H RBC (3.54 - 5.02 x10 6/uL) 4.48 Hgb (11.0 - 15.0 g/dL) 13.5 Hct (33.0 - 45.0 %) 44.2 MCV (81.0 - 99.0 fL) 98.7 MCH (27.0 - 33.0 pg) 30.1 MCHC (33.0 - 37.0 g/dL) 30.5 L RDW (11.5 - 14.5 %) 13.4 Plt Count (150 - 400 x10 3/uL) 331 MPV (7.0 - 9.0 fL) 12.1 H Add Manual Diff YES Seg Neutrophils % (37 - 69 %) 90.9 H Lymphocytes % (Manual) (23 - 55 %) 4.6 L Monocytes % (Manual) (0 - 10 %) 3.6 Myelocytes (0.0 - 0.0 %) 0.9 H Platelet Estimate (ADEQUATE THOUSAND) Adequate Plt Morphology Comment LARGE PLATELETS Poikilocytosis 2+ Laboratory Tests 09/25 0415 Urines Urine Color (YEL/STRAW) YELLOW Urine Appearance (CLEAR) SL CLOUDY Urine pH (5.0 - 7.0) 5.0 Ur Specific [place] (1.005 - 1.030) 1.011 Urine Protein (NEGATIVE) 2+ H Urine Glucose (UA) (NEGATIVE) 2+ H Urine Ketones (NEGATIVE) TRACE H Urine Blood (NEGATIVE) 1+ H Urine Nitrite (NEGATIVE) NEGATIVE Urine Bilirubin (NEGATIVE) NEGATIVE Urine Urobilinogen (0.2 - 1.0 mg/dL) 0.2 Ur Leukocyte Esterase (NEGATIVE) TRACE H Urine RBC (0 - 3 RBC/HPF) 4-10 Urine WBC (0 - 3 WBC/HPF) 4-9 H Ur Squamous Epith Cells (NONE SEEN /HPF) 0-5 Urine Bacteria (NONE SEEN /HPF) 1+ H Urine Mucus (NONE SEEN /LPF) TRACE Urine Yeast (NONE /HPF) 1+ H Microbiology:09/25 0400 BLOOD: Blood Culture - RECD09/25 0345 BLOOD: Blood Culture - REC 0341 NASAL: MRSA DNA Surveillance Screen - ORD Radiology data:Recent Impressions:RADIOLOGY - XR CHEST 1 V 09/25 0405 Report Impression - Status: SIGNED Entered: 09/26/2019 0413 IMPRESSION: Mildly hyperinflated, but clear lungs. Lucency beneath the left hemidiaphragm likely related to a mildlydilated gas-filled stomach. An upright view of the abdomen would beconfirmatory and better exclude pneumoperitoneum. SL: TPAINTER-HImpression By: Bridget Edward M.D.RADIOLOGY - XR CHEST 1 V 09/25 0532 Report Impression - Status: SIGNED Entered: 09/26/2019 0546 IMPRESSION: Hypoinflation associated with interval right IJ central line insertiontip overlying the atriocaval junction without pneumothorax. SL: TPAINTER-HImpression By: Bridget Edward M.D.CAT SCAN - CT C-SPINE W/O CONT 09/25 0446 Report Impression - Status: SIGNED Entered: 09/26/2019 0607 IMPRESSION: Mild cervical spondylosis and facet arthrosis without acute fractureor dislocation. Mild chronic bilateral mastoiditis. SL: TPAINTER-HImpression By: Bridget Edward M.D.CAT SCAN - CT HEAD/BRAIN W/O CONT 09/25 0446 Report Impression - Status: SIGNED Entered: 09/26/2019 0612 IMPRESSION: Mild to moderate diffuse atrophy is present associated with mildnonspecific periventricular low attenuation most consistent with oldmicroangiopathic ischemic change. No acute intracranial abnormality. Small old appearing lacunar infarctions in both basal ganglia and leftthalamus. Mild chronic sinusitis. Minimal chronic bilateral mastoiditis. SL: TPAINTER-HImpression By: Bridget Edward M.D.CAT SCAN - CT CHEST W/O CONTRAST 04/16 0546 Report Impression - Status: SIGNED Entered: 09/26/201932 IMPRESSION: Nonspecific nonobstructive bowel gas pattern associated with milddiffuse colonic wall thickening either related to underdistention ornonspecific colitis. Mild submucosal fat seen in the colon suggestchronic colonic inflammatory change. Mild sigmoid diverticulosis. Moderately dilated stomach with areas of asymmetric wall thickening inthe antrum and greater gastric curvature that may represent gastritisor underlying neoplasm. Follow-up upper GI or endoscopy may behelpful. Additionally, a radionuclide gastric emptying study may behelpful if gastroparesis is suspected clinically. Mild left renal cortical atrophy associated with a small mildlycomplex cyst. Further evaluation may be obtained with renalultrasound. Tiny focus of gas in the urinary bladder may represent recentcatheterization or cold fistula with bowel. Mild diffuse anasarca. Normal size heart associated with moderate coronary arterycalcifications. Mild hyperinflation associated with subsegmental atelectasis andscarring in both lungs greatest in the lung bases. Mild to moderate abdominal aortic atherosclerosis associated withinfrarenal aneurysm measuring 3.1 cm maximum transverse dimension. Mild soft tissue gas in the right anterior abdominal and pelvic walllikely related to recent medication injection. Postoperative change of cholecystectomy. SL: TPAINTER-HImpression By: Bridget - Amadeo Edward M.D.CAT SCAN - CT ABD PELVIS W/O CONT 09/25 545 Report Impression - Status: SIGNED Entered: 09/26/201932 IMPRESSION: Nonspecific nonobstructive bowel gas pattern associated with milddiffuse colonic wall thickening either related to underdistention ornonspecific colitis. Mild submucosal fat seen in the colon suggestchronic colonic inflammatory change. Mild sigmoid diverticulosis. Moderately dilated stomach with areas of asymmetric wall thickening inthe antrum and greater gastric curvature that may represent gastritisor underlying neoplasm. Follow-up upper GI or endoscopy may behelpful. Additionally, a radionuclide gastric emptying study may behelpful if gastroparesis is suspected clinically. Mild left renal cortical atrophy associated with a small mildlycomplex cyst. Further evaluation may be obtained with renalultrasound. Tiny focus of gas in the urinary bladder may represent recentcatheterization or cold fistula with bowel. Mild diffuse anasarca. Normal size heart associated with moderate coronary arterycalcifications. Mild hyperinflation associated with subsegmental atelectasis andscarring in both lungs greatest in the lung bases. Mild to moderate abdominal aortic atherosclerosis associated withinfrarenal aneurysm measuring 3.1 cm maximum transverse dimension. Mild soft tissue gas in the right anterior abdominal and pelvic walllikely related to recent medication injection. Postoperative change of cholecystectomy. SL: TPAINTER-HImpression By: [email or web address] - Amadeo Edward M.D. Diagnosis, Assessment Plan Diagnosis, Assessment PlanProblem List/A P: 1. Acute renal failure 2. Hyperkalemia 3. Physical deconditioning 4. Hypomagnesemia 5. Sepsis 6. Acute hypoactive delirium due to another medical condition 7. Lactic acidosis 8. Arterial hypotension Free Text A P: Problem List: Severe sepsis and septic shockUrine tract infectionSevere lactic acidosisSevere metabolic acidosisAcute renal failureLeukocytosisDehydrationDiarrheaHypothermia Assessment and Plan: 74 years old female with past medical history significant for Alzheimer's dementia, behavioral disturbance, hypertension, type 2 diabetes mellitus, migraine headaches, anxiety disorder, bowel and bladder incontinence, rheumatoidarthritis, frequent UTI was brought from the correction. She has been unwell for the past few days. Upon arrival she was found to be hypothermic with a temperature of 33.1 C, profound lactic acidosis at 14, metabolic acidosis with pH of 6.8 and hypercapnia due to respiratory compensation at PCO2 of 9.5 mmHg. Patient is awake, follows commands minimally and answers few yes and no questions. Acute renal failure with a creatinine of 3.9. Has received cefepime, vancomycin and 1 L of crystalloid with a right internal jugular central venouscatheter in place. Upon my assessment her blood pressure is 80/58 mmHg with a heart rate of 117, irregularly irregular and pulse ox of 74%. She is on bear hugger. White blood cell count is 22,000. Has positive UA. There was a question of pneumoperitoneum on the x-ray of the abdomen. CT of the abdomen didnot confirm that finding. A general surgery consult is awaited. Patient will be broadened to Zosyn and Vanco given correction placement. Concern is about ischemic bowel. Also has diarrhea. No blood was reported in the stool. C. difficile toxin and stool has been sent. Patient received 3 A of sodium bicarbonate in the ER and additional 2 more ampules of sodium bicarbonate has been ordered. Potassium is mildly elevated at 5.0. She will be ordered a gram of calcium chloride and D50/insulin. Urine blood cultures have been sent. Patient is receiving her second and third liter of crystalloid with a pressure bag and Levophed is being started at 5 mics per minute via the central venous catheter. She is DNR/DNI. Patient is going to be admitted to medical ICU room #317. Patient is being admitted to medical ICU room #317She is DNR/DNIPatient has profound gram-negative sepsis with severe metabolic and lactic acidosisShe is awake, interactive minimally and follows some commandHas lactic acid of 14.8Has received 1 L of crystalloid so farWill be ordered 30 mL/kg body weight fluid resuscitation and repeat lactate within 3 hoursUrine and blood cultures have been sentPatient received vancomycin and cefepime in the ERBroad-spectrum antibiotic coverage with vancomycin and ZosynWe will check C. difficile toxin and stool given diarrhea nursing homeWhite count is elevated 22,000Chest x-ray did not reveal any pneumonia/consolidation/atelectasisUA is positive for sediment consistent with UAHas profound hypercapnia with a CO2 of 9.5 mmol manifesting adequate respiratorycompensation for profound lactic and metabolic acidosispH is 6.8Recheck ABGPatient is received total of 5 ampoules of sodium bicarbonate to a total of 250 mEqGeneral surgery consult is being quested for question pneumoperitoneum on the chest x-rayCT of the abdomen pelvis report is awaitedConcern for bowel ischemiaHas significant hypothermia with a temperature of 33.1 CPatient is on bear hugger DVT and GI prophylaxis Israel Vaughan MD [facility].25 AMConsultants: critical care/marine pipefitter helper, hospitalist, nephrologyPlan discussed with: nurseCritical care time: Minutes: 65 Code Status/Resusc. DiscussionCode status: do not resuscitate at 0726 Addendum 1: 09/26/19 09 by Mick Lin MD Labs reviewedHas worsening lactic acidSeptic shockShe is currently on Levophed drip, hypotensiveHypothermia I talked to the family, talk with the POA. I explained her multiple medical problems, and her poor prognosis. Patient wants her to be DNR/DNI. All questions were answered at 0906 RPT #:[id number] OF [id number]:00:00G.[id number] for patient [id number]:06:38 HCACL 2019-09-26 07:00:00 [id number] [id number]/Cxe [id number]:00:00 [facility])Critical Care Consult NoteREPORT#:[id number] REPORT STATUS: SignedDATE:09/26/19 TIME: 0700 PATIENT: MAC AGUSTIN UNIT #: [id number]#: [id number] [address] [birth year] AGE: 74 SEX: F ATTEND: Joel Myers [facility] AUTHOR: Isreal Vaughan MD * ALL edits or amendments must be made on the electronic/computer document * See AddendumHistory of Present Illness HPIRequesting clinician: ER PhysicianReason for consult: Severe sepsis and septic shockUrine tract infectionSevere lactic acidosisSevere metabolic acidosisAcute renal failureLeukocytosisDehydrationDiarrheaHypothermiaChief complaint:Not feeling wellLow urine outputAltered mental statusIncreased thirstDecreased p.o. intake HPI: 74 years old female with past medical history significant for Alzheimer's dementia, behavioral disturbance, hypertension, type 2 diabetes mellitus, migraine headaches, anxiety disorder, bowel and bladder incontinence, rheumatoidarthritis, frequent UTI was brought from the correction. She has been unwell for the past few days. Upon arrival she was found to be hypothermic with a temperature of 33.1 C, profound lactic acidosis at 14, metabolic acidosis with pH of 6.8 and hypercapnia due to respiratory compensation at PCO2 of 9.5 mmHg. Patient is awake, follows commands minimally and answers few yes and no questions. Acute renal failure with a creatinine of 3.9. Has received cefepime, vancomycin and 1 L of crystalloid with a right internal jugular central venouscatheter in place. Upon my assessment her blood pressure is 80/58 mmHg with a heart rate of 117, irregularly irregular and pulse ox of 74%. She is on bear hugger. White blood cell count is 22,000. Has positive UA. There was a question of pneumoperitoneum on the x-ray of the abdomen. CT of the abdomen didnot confirm that finding. A general surgery consult is awaited. Patient will be broadened to Zosyn and Vanco given correction placement. Concern is about ischemic bowel. Also has diarrhea. No blood was reported in the stool. C. difficile toxin and stool has been sent. Patient received 3 A of sodium bicarbonate in the ER and additional 2 more ampules of sodium bicarbonate has been ordered. Potassium is mildly elevated at 5.0. She will be ordered a gram of calcium chloride and D50/insulin. Urine blood cultures have been sent. Patient is receiving her second and third liter of crystalloid with a pressure bag and Levophed is being started at 5 mics per minute via the central venous catheter. She is DNR/DNI. Patient is going to be admitted to medical ICU room #317. History - Adult longitudinalSmoking status for patients 13 years old or older: Unknown,if ever smokedMedications:Current Hospital Medications:Anti-Infective Agents Sig/Rose Mary Start time Last Medication Dose Route Stop Time Status Admin Piperacillin Sod/ 3.375 GM Q8H 09/25 714 UNV Tazobactam Sod IV 10/09 713 (ZOSYN 3.375GM) Sodium Chloride 100 ML (SODIUM CHLORIDE 0.9% 100 ML) Vancomycin HCl 750 MG Q12H 09/25 714 UNV (VANCOMYCIN HCL) IV 10/25 713 Sodium Chloride 250 ML (SODIUM CHLORIDE 0.9%) Piperacillin Sod/ 3.375 GM X1ED STA 09/25 613 DC 09/25 Tazobactam Sod IV 09/25 0643 0646 (ZOSYN 3.375GM) Sodium Chloride 100 ML (SODIUM CHLORIDE 0.9% 100 ML) Cefepime HCl 2 GM X1ED STA 09/25 0348 DC 09/25 (MAXIPIME) IV 09/25 0350 0401 Sodium Chloride 20 ML (SODIUM CHLORIDE) Vancomycin HCl 1,000 MG X1ED STA 09/25 0348 DC 09/25 (VANCOMYCIN HCL) IV 09/25 0447 0401 Sodium Chloride 250 ML (SODIUM CHLORIDE 0.9%) Autonomic Drugs Sig/Rose Mary Start time Last Medication Dose Route Stop Time Status Admin Norepinephrine 250 ML ASDIR PRN 09/25 0700 AC Bitartrate IV 10/25 0659 (NOREPINEPHRINE 8 MG/ NS 250 ML) Norepinephrine 250 ML X1ED STA 09/25 0640 AC 09/25 Bitartrate IV 10/05 1639 0648 (NOREPINEPHRINE 8 MG/ NS 250 ML) Norepinephrine 250 ML .STK-MED ONE 09/25 0640 DC Bitartrate IV (NOREPINEPHRINE 8 MG/ NS 250 ML) Albuterol/Ipratropium 3 ML RTQ4H PRN PRN 09/25 0630 AC (DUONEB) INH 09/26 0529 Central Nervous System Agents Sig/Rose Mary Start time Last Medication Dose Route Stop Time Status Admin Acetaminophen 650 MG Q4H PRN PRN 09/25 0630 AC (TYLENOL) PO 09/26 0529 Lorazepam 1 MG Q4H PRN PRN 09/25 0630 AC (ATIVAN) IV 09/26 0529 Morphine Sulfate 2 MG Q4H PRN PRN 09/25 0630 AC (morphine SULFATE) IV 09/26 0529 Ziprasidone 20 MG X1ED STA 09/25 0624 DC (GEODON 20MG VIAL) IM 09/25 0625 Lorazepam 2 MG ONCE ONE 09/25 0445 DC 09/25 (ATIVAN) IV 09/25 0446 0513 Lorazepam 0 .STK-MED ONE 09/25 0438 DC (ATIVAN) IV Magnesium Sulfate 100 ML X1ED STA 09/25 0425 AC 09/25 (MAGNESIUM SULFATE IV 09/25 0824 0511 4GM/SWFI 100ML) Electrolytic, Caloric, And Erica Sig/Rose Mary Start time Last Medication Dose Route Stop Time Status Admin Sodium Chloride 1,842 ML BOLUS STA 09/25 0700 DC (SODIUM CHLORIDE IV 09/25 0701 0.9%) Sodium Chloride 0 ASDIR PRN 09/25 0645 AC (SODIUM CHLORIDE) IV 09/26 0529 Sodium Bicarbonate 100 MEQ X1ED STA 09/25 0636 DC 09/25 (SODIUM BICARBONATE) IV 09/25 0637 0656 Potassium Chloride/ 1,000 ML X1ED STA 09/25 0635 AC 09/25 Dextrose/Sod Cl IV 09/25 1434 0700 (D5 0.45%NS + KCl 20mEq 1,000mL) Dextrose/Water 125 ML ASDIR PRN 09/25 0630 AC (DEXTROSE 10% IN IV 09/26 05 WATER) Dextrose/Water 250 ML ASDIR PRN 09/25 0630 AC (DEXTROSE 10% IN IV 09/26 0529 WATER) Lactated Ringer's 1,000 ML X1ED STA 09/25 0623 DC 09/25 (LACTATED RINGERS) IV 09/25 0624 0647 Sodium Chloride 0 ASDIR PRN 09/25 0445 AC (SODIUM CHLORIDE) IV 10/25 0444 Calcium Gluconate 1,000 MG X1ED STA 09/25 0424 DC 09/25 (Calcium Gluconate) IV 09/25 0433 0512 Sodium Chloride 50 ML (Sodium Chloride 50ML) Calcium Gluconate 1,000 MG X1ED STA 09/25 0424 DC 09/25 (Calcium Gluconate) IV 09/25 0433 0513 Sodium Chloride 50 ML (Sodium Chloride 50ML) Sodium Bicarbonate 150 MEQ X1ED STA 09/25 0424 DC 09/25 (SODIUM BICARBONATE) IV 09/25 0425 0511 Sodium Chloride 1,000 ML X1ED STA 09/25 0347 DC 09/25 (SODIUM CHLORIDE IV 09/25 0446 0401 0.9%) Sodium Chloride 1,000 ML X1ED STA 09/25 0347 AC 09/25 (SODIUM CHLORIDE IV 09/25 1146 0402 0.9%) Sodium Chloride 0 ASDIR PRN 09/25 0345 AC (SODIUM CHLORIDE) IV 09/26 0240 Gastrointestinal Drugs Sig/Rose Mary Start time Last Medication Dose Route Stop Time Status Admin Ondansetron HCl 4 MG Q6H PRN PRN 09/25 06 AC (ZOFRAN) IV 09/26 0529 Hormones And Synthetic Substit Sig/Rose Mary Start time Last Medication Dose Route Stop Time Status Admin Insulin Human Lispro 0 AC HS 09/25 0730 AC (HUMALOG) SUBQ 09/26 05 Glucagon 1 MG ASDIR PRN 09/25 0630 AC (GLUCAGON) IM 09/26 0529 Pharmaceutical Aids Sig/Rose Mary Start time Last Medication Dose Route Stop Time Status Admin Sterile Water 1.2 ML ASDIR 09/25 0630 AC (WATER FOR INJECTION) IM 09/26 0524 Allergies:Coded Allergies:penicillamine (UNKNOWN 09/26/19) Review of SystemsUnable to obtain due to:Patient is profoundly acidotic both metabolic and lactic, opens eyes, answers yes and no questions but did not follow commands very well. Objective Physical Exam:VS/I O:Last Documented: Result Date Time O2 Delivery Nasal cannula 09/26 451 O2 Flow Rate 3.451574 09/26 451 Temp 33.1 09/25 0439 Pulse Ox 95 09/25 0339 B/P 139/94 09/25 0339 B/P Mean 109 09/25 033 Pulse 113 09/25 0339 Resp 26 09/25 033 24 hour I O ending at 0700: 09/25 0700 09/24 1900 Intake Total Output Total Balance Patient 61.4 kg Weight Weight Bed scale Measurement Method Medications:Active Meds + DC'd Last 24 HrsInsulin Human Lispro 0 AC HS SUBQ Piperacillin Sod/Tazobactam Sod 3.375 GM Q8H IV (UNV) Sodium Chloride 100 MLVancomycin HCl 750 MG Q12H IV (UNV) Sodium Chloride 250 MLNorepinephrine Bitartrate 250 ML ASDIR PRN IV Sodium Chloride 1,842 ML BOLUS STA IV (DC) Sodium Chloride 0 ASDIR PRN IV Norepinephrine Bitartrate 250 ML X1ED STA IV Norepinephrine Bitartrate 250 ML .STK-MED ONE IV (DC) Sodium Bicarbonate 100 MEQ X1ED STA IV (DC) Potassium Chloride/Dextrose/Sod Cl 1,000 ML X1ED STA IV Acetaminophen 650 MG Q4H PRN PRN PO Albuterol/Ipratropium 3 ML RTQ4H PRN PRN INH Dextrose/Water 125 ML ASDIR PRN IV Dextrose/Water 250 ML ASDIR PRN IV Glucagon 1 MG ASDIR PRN IM Lorazepam 1 MG Q4H PRN PRN IV Morphine Sulfate 2 MG Q4H PRN PRN IV Ondansetron HCl 4 MG Q6H PRN PRN IV Sterile Water 1.2 ML ASDIR IM Ziprasidone 20 MG X1ED STA IM (DC) Lactated Ringer's 1,000 ML X1ED STA IV (DC) Piperacillin Sod/Tazobactam Sod 3.375 GM X1ED STA IV (DC) Sodium Chloride 100 MLLorazepam 2 MG ONCE ONE IV (DC) Sodium Chloride 0 ASDIR PRN IV Lorazepam 0 .STK-MED ONE IV (DC) Magnesium Sulfate 100 ML X1ED STA IV Calcium Gluconate 1,000 MG X1ED STA IV (DC) Sodium Chloride 50 MLCalcium Gluconate 1,000 MG X1ED STA IV (DC) Sodium Chloride 50 MLSodium Bicarbonate 150 MEQ X1ED STA IV (DC) Cefepime HCl 2 GM X1ED STA IV (DC) Sodium Chloride 20 MLVancomycin HCl 1,000 MG X1ED STA IV (DC) Sodium Chloride 250 MLSodium Chloride 1,000 ML X1ED STA IV (DC) Sodium Chloride 1,000 ML X1ED STA IV Sodium Chloride 0 ASDIR PRN IV General appearance: altered mental status, chronically ill appearing, frail, lethargic, awakeHead/Eyes: atraumatic, normocephalic, PERRLENT: dry mucosal membrane, normal noseNeck: normal thyroid, supple/no meningismus, no bruit/NL carotids, no JVD, no lymphadenopathyCardiovascular: tachycardia, normal heart sounds, normal S1 S2, no rub, no gallopRespiratory/Chest: decreased breath sounds, clear to auscultation, symmetric expansion, no tenderness, dyspnea, tachypneaAbdomen: soft, non-tender, normal bowel sounds, no distention, no guarding, no mass/organomegalyGenitourinary: ballard, no bladder distention, no flank painExtremities: no calf tenderness, no cyanosis, no edema, no pedal edemaMusculoskeletal: decreased ROMNeuro/FAST FOOD ATTENDANT: no sensory deficits Results:Findings/Data:Laboratory Tests 09/26/19 0345:[Embedded Image Not Available]Laboratory Tests 09/25 7312 Blood Gas Puncture Site R Rad ABG pH (7.35 - 7.45) 6.871 *L ABG pCO2 (35 - 45 mmHg) 9.5 *L ABG pO2 (80 - 100 mmHg) 133 H ABG HCO3 (22.0 - 26.0 mmol/L) 1.9 L ABG Total CO2 < 5 ABG O2 Saturation (90 - 100 %) 97 ABG Base Excess (-4 - 4 mmol/L) < -30.0 L Temperature (F) 91.7 O2 Delivery Device Room Air Laboratory Tests 09/25 09/25 09/25 09/25 0625 0355 0348 0345 Chemistry POC Glucose (70 - 110 MG/DL) 147 H Lactic Acid (0.4 - 1.9 mmol/l) 19.1 *H 14.8 *H B-Natriuretic Peptide (0 - 100 PG/ML) 304.2 H 09/25 344 Chemistry Sodium (134 - 147 mEq/L) 144 Potassium (3.4 - 5.0 mEq/L) 3.2 L Chloride (100 - 108 mEq/L) 114 H Carbon Dioxide (21 - 33 mEq/L) 4 L Anion Gap (0 - 20) 29 H BUN (7 - 18 mg/dL) 69 H Creatinine (0.6 - 1.3 mg/dL) 3.9 H Glomerular Filtr Rate (70 - 80) 11.4 L Glucose (70 - 110 mg/dL) 100 Calcium (8.0 - 10.5 mg/dL) 5.6 *L Magnesium (1.8 - 2.4 mg/dL) 0.90 *L Total Bilirubin (<1.5 MG/DL) 0.2 Direct Bilirubin (0.0 - 0.30 MG/DL) < 0.10 Indirect Bilirubin (MG/DL) 0.10 AST (15 - 37 IUnit/L) 7 L ALT (15 - 65 IUnit/L) 12 L Total Alk Phosphatase (20 - 125 IUnit/L) 39 Troponin I (0.000 - 0.045 ng/mL) 0.029 Total Protein (6.4 - 8.2 g/dL) 5.1 L Albumin (3.4 - 5.0 g/dL) 2.30 L Lipase (73 - 393 IUnit/L) 139 TSH (0.42 - 5.47 IU/mL) 0.68 Laboratory Tests 09/25 344 Coagulation INR (0.8 - 1.2) 1.1 PTT ([place]) (25.0 - 39.5 Seconds) 22.2 L PT Patient/Control Mix (9.3 - 12.9 SECONDS) 11.7 Laboratory Tests 09/25 034 Hematology WBC (4.5 - 11.0 x10 3/uL) 22.50 H RBC (3.54 - 5.02 x10 6/uL) 4.48 Hgb (11.0 - 15.0 g/dL) 13.5 Hct (33.0 - 45.0 %) 44.2 MCV (81.0 - 99.0 fL) 98.7 MCH (27.0 - 33.0 pg) 30.1 MCHC (33.0 - 37.0 g/dL) 30.5 L RDW (11.5 - 14.5 %) 13.4 Plt Count (150 - 400 x10 3/uL) 331 MPV (7.0 - 9.0 fL) 12.1 H Add Manual Diff YES Seg Neutrophils % (37 - 69 %) 90.9 H Lymphocytes % (Manual) (23 - 55 %) 4.6 L Monocytes % (Manual) (0 - 10 %) 3.6 Myelocytes (0.0 - 0.0 %) 0.9 H Platelet Estimate (ADEQUATE THOUSAND) Adequate Plt Morphology Comment LARGE PLATELETS Poikilocytosis 2+ Laboratory Tests 09/25 414 Urines Urine Color (YEL/STRAW) YELLOW Urine Appearance (CLEAR) SL CLOUDY Urine pH (5.0 - 7.0) 5.0 Ur Specific [place] (1.005 - 1.030) 1.011 Urine Protein (NEGATIVE) 2+ H Urine Glucose (UA) (NEGATIVE) 2+ H Urine Ketones (NEGATIVE) TRACE H Urine Blood (NEGATIVE) 1+ H Urine Nitrite (NEGATIVE) NEGATIVE Urine Bilirubin (NEGATIVE) NEGATIVE Urine Urobilinogen (0.2 - 1.0 mg/dL) 0.2 Ur Leukocyte Esterase (NEGATIVE) TRACE H Urine RBC (0 - 3 RBC/HPF) 4-10 Urine WBC (0 - 3 WBC/HPF) 4-9 H Ur Squamous Epith Cells (NONE SEEN /HPF) 0-5 Urine Bacteria (NONE SEEN /HPF) 1+ H Urine Mucus (NONE SEEN /LPF) TRACE Urine Yeast (NONE /HPF) 1+ H Microbiology:09/26 399 BLOOD: Blood Culture - RECD09/25 344 BLOOD: Blood Culture - REC340 NASAL: MRSA DNA Surveillance Screen - ORD Radiology data:Recent Impressions:RADIOLOGY - XR CHEST 1 V 09/25 404 Report Impression - Status: SIGNED Entered: 09/26/2019412 IMPRESSION: Mildly hyperinflated, but clear lungs. Lucency beneath the left hemidiaphragm likely related to a mildlydilated gas-filled stomach. An upright view of the abdomen would beconfirmatory and better exclude pneumoperitoneum. SL: TPAINTER-HImpression By: Bridget dEward M.D.RADIOLOGY - XR CHEST 1 V 09/26 531 Report Impression - Status: SIGNED Entered: 09/26/201946 IMPRESSION: Hypoinflation associated with interval right IJ central line insertiontip overlying the atriocaval junction without pneumothorax. SL: TPAINTER-HImpression By: Bridget Edward M.D.CAT SCAN - CT C-SPINE W/O CONT 09/25 545 Report Impression - Status: SIGNED Entered: 09/26/2019 06 IMPRESSION: Mild cervical spondylosis and facet arthrosis without acute fractureor dislocation. Mild chronic bilateral mastoiditis. SL: TPAINTER-HImpression By: Bridget Edward M.D.CAT SCAN - CT HEAD/BRAIN W/O CONT 09/25 545 Report Impression - Status: SIGNED Entered: 09/26/2019 0612 IMPRESSION: Mild to moderate diffuse atrophy is present associated with mildnonspecific periventricular low attenuation most consistent with oldmicroangiopathic ischemic change. No acute intracranial abnormality. Small old appearing lacunar infarctions in both basal ganglia and leftthalamus. Mild chronic sinusitis. Minimal chronic bilateral mastoiditis. SL: TPAINTER-HImpression By: Bridget Edward M.D.CAT SCAN - CT CHEST W/O CONTRAST 09/25 545 Report Impression - Status: SIGNED Entered: 09/26/2019 0632 IMPRESSION: Nonspecific nonobstructive bowel gas pattern associated with milddiffuse colonic wall thickening either related to underdistention ornonspecific colitis. Mild submucosal fat seen in the colon suggestchronic colonic inflammatory change. Mild sigmoid diverticulosis. Moderately dilated stomach with areas of asymmetric wall thickening inthe antrum and greater gastric curvature that may represent gastritisor underlying neoplasm. Follow-up upper GI or endoscopy may behelpful. Additionally, a radionuclide gastric emptying study may behelpful if gastroparesis is suspected clinically. Mild left renal cortical atrophy associated with a small mildlycomplex cyst. Further evaluation may be obtained with renalultrasound. Tiny focus of gas in the urinary bladder may represent recentcatheterization or cold fistula with bowel. Mild diffuse anasarca. Normal size heart associated with moderate coronary arterycalcifications. Mild hyperinflation associated with subsegmental atelectasis andscarring in both lungs greatest in the lung bases. Mild to moderate abdominal aortic atherosclerosis associated withinfrarenal aneurysm measuring 3.1 cm maximum transverse dimension. Mild soft tissue gas in the right anterior abdominal and pelvic walllikely related to recent medication injection. Postoperative change of cholecystectomy. SL: TPAINTER-HImpression By: Bridget Edward M.D.CAT SCAN - CT ABD PELVIS W/O CONT 09/25 0546 Report Impression - Status: SIGNED Entered: 09/26/2019 0632 IMPRESSION: Nonspecific nonobstructive bowel gas pattern associated with milddiffuse colonic wall thickening either related to underdistention ornonspecific colitis. Mild submucosal fat seen in the colon suggestchronic colonic inflammatory change. Mild sigmoid diverticulosis. Moderately dilated stomach with areas of asymmetric wall thickening inthe antrum and greater gastric curvature that may represent gastritisor underlying neoplasm. Follow-up upper GI or endoscopy may behelpful. Additionally, a radionuclide gastric emptying study may behelpful if gastroparesis is suspected clinically. Mild left renal cortical atrophy associated with a small mildlycomplex cyst. Further evaluation may be obtained with renalultrasound. Tiny focus of gas in the urinary bladder may represent recentcatheterization or cold fistula with bowel. Mild diffuse anasarca. Normal size heart associated with moderate coronary arterycalcifications. Mild hyperinflation associated with subsegmental atelectasis andscarring in both lungs greatest in the lung bases. Mild to moderate abdominal aortic atherosclerosis associated withinfrarenal aneurysm measuring 3.1 cm maximum transverse dimension. Mild soft tissue gas in the right anterior abdominal and pelvic walllikely related to recent medication injection. Postoperative change of cholecystectomy. SL: TPAINTER-HImpression By: Bridget Edward M.D. Diagnosis, Assessment Plan Diagnosis, Assessment PlanProblem List/A P: 1. Acute renal failure 2. Hyperkalemia 3. Physical deconditioning 4. Hypomagnesemia 5. Sepsis 6. Acute hypoactive delirium due to another medical condition 7. Lactic acidosis 8. Arterial hypotension Free Text A P: Problem List: Severe sepsis and septic shockUrine tract infectionSevere lactic acidosisSevere metabolic acidosisAcute renal failureLeukocytosisDehydrationDiarrheaHypothermia Assessment and Plan: 74 years old female with past medical history significant for Alzheimer's dementia, behavioral disturbance, hypertension, type 2 diabetes mellitus, migraine headaches, anxiety disorder, bowel and bladder incontinence, rheumatoidarthritis, frequent UTI was brought from the correction. She has been unwell for the past few days. Upon arrival she was found to be hypothermic with a temperature of 33.1 C, profound lactic acidosis at 14, metabolic acidosis with pH of 6.8 and hypercapnia due to respiratory compensation at PCO2 of 9.5 mmHg. Patient is awake, follows commands minimally and answers few yes and no questions. Acute renal failure with a creatinine of 3.9. Has received cefepime, vancomycin and 1 L of crystalloid with a right internal jugular central venouscatheter in place. Upon my assessment her blood pressure is 80/58 mmHg with a heart rate of 117, irregularly irregular and pulse ox of 74%. She is on bear hugger. White blood cell count is 22,000. Has positive UA. There was a question of pneumoperitoneum on the x-ray of the abdomen. CT of the abdomen didnot confirm that finding. A general surgery consult is awaited. Patient will be broadened to Zosyn and Vanco given correction placement. Concern is about ischemic bowel. Also has diarrhea. No blood was reported in the stool. C. difficile toxin and stool has been sent. Patient received 3 A of sodium bicarbonate in the ER and additional 2 more ampules of sodium bicarbonate has been ordered. Potassium is mildly elevated at 5.0. She will be ordered a gram of calcium chloride and D50/insulin. Urine blood cultures have been sent. Patient is receiving her second and third liter of crystalloid with a pressure bag and Levophed is being started at 5 mics per minute via the central venous catheter. She is DNR/DNI. Patient is going to be admitted to medical ICU room #317. Patient is being admitted to medical ICU room #317She is DNR/DNIPatient has profound gram-negative sepsis with severe metabolic and lactic acidosisShe is awake, interactive minimally and follows some commandHas lactic acid of 14.8Has received 1 L of crystalloid so farWill be ordered 30 mL/kg body weight fluid resuscitation and repeat lactate within 3 hoursUrine and blood cultures have been sentPatient received vancomycin and cefepime in the ERBroad-spectrum antibiotic coverage with vancomycin and ZosynWe will check C. difficile toxin and stool given diarrhea nursing homeWhite count is elevated 22,000Chest x-ray did not reveal any pneumonia/consolidation/atelectasisUA is positive for sediment consistent with UAHas profound hypercapnia with a CO2 of 9.5 mmol manifesting adequate respiratorycompensation for profound lactic and metabolic acidosispH is 6.8Recheck ABGPatient is received total of 5 ampoules of sodium bicarbonate to a total of 250 mEqGeneral surgery consult is being quested for question pneumoperitoneum on the chest x-rayCT of the abdomen pelvis report is awaitedConcern for bowel ischemiaHas significant hypothermia with a temperature of 33.1 CPatient is on bear hugger DVT and GI prophylaxis Israel Vaughan MD [facility].25 AMConsultants: critical care/marine pipefitter helper, hospitalist, nephrologyPlan discussed with: nurseCritical care time: Minutes: 65 Code Status/Resusc. DiscussionCode status: do not resuscitate at 0726 Addendum 1: 09/26/19 0905 by Mick Lin MD Labs reviewedHas worsening lactic acidSeptic shockShe is currently on Levophed drip, hypotensiveHypothermia I talked to the family, talk with the POA. I explained her multiple medical problems, and her poor prognosis. Patient wants her to be DNR/DNI. All questions were answered at 0906 Addendum 2: 09/26/19 1210 by Mick Lin MD patient was on metformin. Has NATHEN and has elevated lactic acid.D/w neprhology, plan is to do HD. Nephro talked to family about HD. at [address] [facility] #:[id number] OF [id number]:00:00G.[id number]- [id number] for patient [id number]:11:21 HCACL 2019-09-26 07:00:00 [id number]+IdXMVaPk CANHvOxWNG7QQ/Cxe [id number]/[id number]:00:00 [facility] ([facility])Critical Care Consult NoteREPORT#:[id number] REPORT STATUS: SignedDATE:09/26/19 TIME: 0700 PATIENT: MAC AGUSTIN UNIT #: [id number]#: [id number] [address] [birth year] AGE: 74 SEX: F ATTEND: Joel Myers AUTHOR: Israel Vaughan MD * ALL edits or amendments must be made on the electronic/computer document * See AddendumHistory of Present Illness HPIRequesting clinician: ER PhysicianReason for consult: Severe sepsis and septic shockUrine tract infectionSevere lactic acidosisSevere metabolic acidosisAcute renal failureLeukocytosisDehydrationDiarrheaHypothermiaChief complaint:Not feeling wellLow urine outputAltered mental statusIncreased thirstDecreased p.o. intake HPI: 74 years old female with past medical history significant for Alzheimer's dementia, behavioral disturbance, hypertension, type 2 diabetes mellitus, migraine headaches, anxiety disorder, bowel and bladder incontinence, rheumatoidarthritis, frequent UTI was brought from the correction. She has been unwell for the past few days. Upon arrival she was found to be hypothermic with a temperature of 33.1 C, profound lactic acidosis at 14, metabolic acidosis with pH of 6.8 and hypercapnia due to respiratory compensation at PCO2 of 9.5 mmHg. Patient is awake, follows commands minimally and answers few yes and no questions. Acute renal failure with a creatinine of 3.9. Has received cefepime, vancomycin and 1 L of crystalloid with a right internal jugular central venouscatheter in place. Upon my assessment her blood pressure is 80/58 mmHg with a heart rate of 117, irregularly irregular and pulse ox of 74%. She is on bear hugger. White blood cell count is 22,000. Has positive UA. There was a question of pneumoperitoneum on the x-ray of the abdomen. CT of the abdomen didnot confirm that finding. A general surgery consult is awaited. Patient will be broadened to Zosyn and Vanco given correction placement. Concern is about ischemic bowel. Also has diarrhea. No blood was reported in the stool. C. difficile toxin and stool has been sent. Patient received 3 A of sodium bicarbonate in the ER and additional 2 more ampules of sodium bicarbonate has been ordered. Potassium is mildly elevated at 5.0. She will be ordered a gram of calcium chloride and D50/insulin. Urine blood cultures have been sent. Patient is receiving her second and third liter of crystalloid with a pressure bag and Levophed is being started at 5 mics per minute via the central venous catheter. She is DNR/DNI. Patient is going to be admitted to medical ICU room #317. History - Adult longitudinalSmoking status for patients 13 years old or older: Unknown,if ever smokedMedications:Current Hospital Medications:Anti-Infective Agents Sig/Rose Mary Start time Last Medication Dose Route Stop Time Status Admin Piperacillin Sod/ 3.375 GM Q8H 09/25 714 UNV Tazobactam Sod IV 10/09 0714 (ZOSYN 3.375GM) Sodium Chloride 100 ML (SODIUM CHLORIDE 0.9% 100 ML) Vancomycin HCl 750 MG Q12H 09/25 0615 UNV (VANCOMYCIN HCL) IV 10/25 0714 Sodium Chloride 250 ML (SODIUM CHLORIDE 0.9%) Piperacillin Sod/ 3.375 GM X1ED STA 09/25 0614 DC 09/25 Tazobactam Sod IV 09/25 0643 0646 (ZOSYN 3.375GM) Sodium Chloride 100 ML (SODIUM CHLORIDE 0.9% 100 ML) Cefepime HCl 2 GM X1ED STA 09/25 0348 DC 09/25 (MAXIPIME) IV 09/25 0350 0401 Sodium Chloride 20 ML (SODIUM CHLORIDE) Vancomycin HCl 1,000 MG X1ED STA 09/25 0348 DC 09/25 (VANCOMYCIN HCL) IV 09/25 0447 0401 Sodium Chloride 250 ML (SODIUM CHLORIDE 0.9%) Autonomic Drugs Sig/Rose Mary Start time Last Medication Dose Route Stop Time Status Admin Norepinephrine 250 ML ASDIR PRN 09/25 0700 AC Bitartrate IV 10/25 0659 (NOREPINEPHRINE 8 MG/ NS 250 ML) Norepinephrine 250 ML X1ED STA 09/25 0640 AC 09/25 Bitartrate IV 10/05 1639 0648 (NOREPINEPHRINE 8 MG/ NS 250 ML) Norepinephrine 250 ML .STK-MED ONE 09/25 0640 DC Bitartrate IV (NOREPINEPHRINE 8 MG/ NS 250 ML) Albuterol/Ipratropium 3 ML RTQ4H PRN PRN 09/25 0630 AC (DUONEB) INH 09/26 0529 Central Nervous System Agents Sig/Rose Mary Start time Last Medication Dose Route Stop Time Status Admin Acetaminophen 650 MG Q4H PRN PRN 09/25 0630 AC (TYLENOL) PO 09/26 0529 Lorazepam 1 MG Q4H PRN PRN 09/25 0630 AC (ATIVAN) IV 09/26 0529 Morphine Sulfate 2 MG Q4H PRN PRN 09/25 0630 AC (morphine SULFATE) IV 09/26 0529 Ziprasidone 20 MG X1ED STA 09/25 0624 DC (GEODON 20MG VIAL) IM 09/25 0625 Lorazepam 2 MG ONCE ONE 09/25 0445 DC 09/25 (ATIVAN) IV 09/25 0446 0513 Lorazepam 0 .STK-MED ONE 09/25 0438 DC (ATIVAN) IV Magnesium Sulfate 100 ML X1ED STA 09/25 0425 AC 09/25 (MAGNESIUM SULFATE IV 09/25 0824 0511 4GM/SWFI 100ML) Electrolytic, Caloric, And Erica Sig/Rose Mary Start time Last Medication Dose Route Stop Time Status Admin Sodium Chloride 1,842 ML BOLUS STA 09/25 0700 DC (SODIUM CHLORIDE IV 09/25 0701 0.9%) Sodium Chloride 0 ASDIR PRN 09/25 0645 AC (SODIUM CHLORIDE) IV 09/26 0529 Sodium Bicarbonate 100 MEQ X1ED STA 09/25 0636 DC 09/25 (SODIUM BICARBONATE) IV 09/25 0637 0656 Potassium Chloride/ 1,000 ML X1ED STA 09/25 0635 AC 09/25 Dextrose/Sod Cl IV 09/25 1434 0700 (D5 0.45%NS + KCl 20mEq 1,000mL) Dextrose/Water 125 ML ASDIR PRN 09/25 0630 AC (DEXTROSE 10% IN IV 09/26 0529 WATER) Dextrose/Water 250 ML ASDIR PRN 09/25 0630 AC (DEXTROSE 10% IN IV 09/26 0429 WATER) Lactated Ringer's 1,000 ML X1ED STA 09/25 0623 DC 09/25 (LACTATED RINGERS) IV 09/25 0624 0647 Sodium Chloride 0 ASDIR PRN 09/25 0445 AC (SODIUM CHLORIDE) IV 10/25 0444 Calcium Gluconate 1,000 MG X1ED STA 09/25 0424 DC 09/25 (Calcium Gluconate) IV 09/25 0433 0512 Sodium Chloride 50 ML (Sodium Chloride 50ML) Calcium Gluconate 1,000 MG X1ED STA 09/25 0424 DC 09/25 (Calcium Gluconate) IV 09/25 0433 0513 Sodium Chloride 50 ML (Sodium Chloride 50ML) Sodium Bicarbonate 150 MEQ X1ED STA 09/25 0424 DC 09/25 (SODIUM BICARBONATE) IV 09/25 0425 0511 Sodium Chloride 1,000 ML X1ED STA 09/25 0347 DC 09/25 (SODIUM CHLORIDE IV 09/25 0446 0401 0.9%) Sodium Chloride 1,000 ML X1ED STA 09/25 0347 AC 09/25 (SODIUM CHLORIDE IV 09/25 1146 0402 0.9%) Sodium Chloride 0 ASDIR PRN 09/25 0345 AC (SODIUM CHLORIDE) IV 09/26 0240 Gastrointestinal Drugs Sig/Rose Mary Start time Last Medication Dose Route Stop Time Status Admin Ondansetron HCl 4 MG Q6H PRN PRN 09/25 0630 AC (ZOFRAN) IV 09/26 0529 Hormones And Synthetic Substit Sig/Rose Mary Start time Last Medication Dose Route Stop Time Status Admin Insulin Human Lispro 0 AC HS 09/25 0730 AC (HUMALOG) SUBQ 09/26 05 Glucagon 1 MG ASDIR PRN 09/25 0630 AC (GLUCAGON) IM 09/26 0529 Pharmaceutical Aids Sig/Rose Mary Start time Last Medication Dose Route Stop Time Status Admin Sterile Water 1.2 ML ASDIR 09/25 0630 AC (WATER FOR INJECTION) IM 09/26 0524 Allergies:Coded Allergies:penicillamine (UNKNOWN 09/26/19) Review of SystemsUnable to obtain due to:Patient is profoundly acidotic both metabolic and lactic, opens eyes, answers yes and no questions but did not follow commands very well. Objective Physical Exam:VS/I O:Last Documented: Result Date Time O2 Delivery Nasal cannula 09/26 451 O2 Flow Rate 3.442583 09/26 451 Temp 33.1 09/25 438 Pulse Ox 95 09/25 338 B/P 139/94 09/259 B/P Mean 109 09/25 338 Pulse 113 09/25 338 Resp 26 09/25 338 24 hour I O ending at 0700: 09/25 0709/24 1900 Intake Total Output Total Balance Patient 61.4 kg Weight Weight Bed scale Measurement Method Medications:Active Meds + DC'd Last 24 HrsInsulin Human Lispro 0 AC HS SUBQ Piperacillin Sod/Tazobactam Sod 3.375 GM Q8H IV (UNV) Sodium Chloride 100 MLVancomycin HCl 750 MG Q12H IV (UNV) Sodium Chloride 250 MLNorepinephrine Bitartrate 250 ML ASDIR PRN IV Sodium Chloride 1,842 ML BOLUS STA IV (DC) Sodium Chloride 0 ASDIR PRN IV Norepinephrine Bitartrate 250 ML X1ED STA IV Norepinephrine Bitartrate 250 ML .STK-MED ONE IV (DC) Sodium Bicarbonate 100 MEQ X1ED STA IV (DC) Potassium Chloride/Dextrose/Sod Cl 1,000 ML X1ED STA IV Acetaminophen 650 MG Q4H PRN PRN PO Albuterol/Ipratropium 3 ML RTQ4H PRN PRN INH Dextrose/Water 125 ML ASDIR PRN IV Dextrose/Water 250 ML ASDIR PRN IV Glucagon 1 MG ASDIR PRN IM Lorazepam 1 MG Q4H PRN PRN IV Morphine Sulfate 2 MG Q4H PRN PRN IV Ondansetron HCl 4 MG Q6H PRN PRN IV Sterile Water 1.2 ML ASDIR IM Ziprasidone 20 MG X1ED STA IM (DC) Lactated Ringer's 1,000 ML X1ED STA IV (DC) Piperacillin Sod/Tazobactam Sod 3.375 GM X1ED STA IV (DC) Sodium Chloride 100 MLLorazepam 2 MG ONCE ONE IV (DC) Sodium Chloride 0 ASDIR PRN IV Lorazepam 0 .STK-MED ONE IV (DC) Magnesium Sulfate 100 ML X1ED STA IV Calcium Gluconate 1,000 MG X1ED STA IV (DC) Sodium Chloride 50 MLCalcium Gluconate 1,000 MG X1ED STA IV (DC) Sodium Chloride 50 MLSodium Bicarbonate 150 MEQ X1ED STA IV (DC) Cefepime HCl 2 GM X1ED STA IV (DC) Sodium Chloride 20 MLVancomycin HCl 1,000 MG X1ED STA IV (DC) Sodium Chloride 250 MLSodium Chloride 1,000 ML X1ED STA IV (DC) Sodium Chloride 1,000 ML X1ED STA IV Sodium Chloride 0 ASDIR PRN IV General appearance: altered mental status, chronically ill appearing, frail, lethargic, awakeHead/Eyes: atraumatic, normocephalic, PERRLENT: dry mucosal membrane, normal noseNeck: normal thyroid, supple/no meningismus, no bruit/NL carotids, no JVD, no lymphadenopathyCardiovascular: tachycardia, normal heart sounds, normal S1 S2, no rub, no gallopRespiratory/Chest: decreased breath sounds, clear to auscultation, symmetric expansion, no tenderness, dyspnea, tachypneaAbdomen: soft, non-tender, normal bowel sounds, no distention, no guarding, no mass/organomegalyGenitourinary: ballard, no bladder distention, no flank painExtremities: no calf tenderness, no cyanosis, no edema, no pedal edemaMusculoskeletal: decreased ROMNeuro/FAST FOOD ATTENDANT: no sensory deficits Results:Findings/Data:Laboratory Tests 09/26/19 0345:[Embedded Image Not Available]Laboratory Tests 09/25 0452 Blood Gas Puncture Site R Rad ABG pH (7.35 - 7.45) 6.871 *L ABG pCO2 (35 - 45 mmHg) 9.5 *L ABG pO2 (80 - 100 mmHg) 133 H ABG HCO3 (22.0 - 26.0 mmol/L) 1.9 L ABG Total CO2 < 5 ABG O2 Saturation (90 - 100 %) 97 ABG Base Excess (-4 - 4 mmol/L) < -30.0 L Temperature (F) 91.7 O2 Delivery Device Room Air Laboratory Tests 09/25 09/25 09/25 09/25 0625 0355 0348 0345 Chemistry POC Glucose (70 - 110 MG/DL) 147 H Lactic Acid (0.4 - 1.9 mmol/l) 19.1 *H 14.8 *H B-Natriuretic Peptide (0 - 100 PG/ML) 304.2 H 09/25 344 Chemistry Sodium (134 - 147 mEq/L) 144 Potassium (3.4 - 5.0 mEq/L) 3.2 L Chloride (100 - 108 mEq/L) 114 H Carbon Dioxide (21 - 33 mEq/L) 4 L Anion Gap (0 - 20) 29 H BUN (7 - 18 mg/dL) 69 H Creatinine (0.6 - 1.3 mg/dL) 3.9 H Glomerular Filtr Rate (70 - 80) 11.4 L Glucose (70 - 110 mg/dL) 100 Calcium (8.0 - 10.5 mg/dL) 5.6 *L Magnesium (1.8 - 2.4 mg/dL) 0.90 *L Total Bilirubin (<1.5 MG/DL) 0.2 Direct Bilirubin (0.0 - 0.30 MG/DL) < 0.10 Indirect Bilirubin (MG/DL) 0.10 AST (15 - 37 IUnit/L) 7 L ALT (15 - 65 IUnit/L) 12 L Total Alk Phosphatase (20 - 125 IUnit/L) 39 Troponin I (0.000 - 0.045 ng/mL) 0.029 Total Protein (6.4 - 8.2 g/dL) 5.1 L Albumin (3.4 - 5.0 g/dL) 2.30 L Lipase (73 - 393 IUnit/L) 139 TSH (0.42 - 5.47 IU/mL) 0.68 Laboratory Tests 09/25 344 Coagulation INR (0.8 - 1.2) 1.1 PTT ([place]) (25.0 - 39.5 Seconds) 22.2 L PT Patient/Control Mix (9.3 - 12.9 SECONDS) 11.7 Laboratory Tests 09/25 344 Hematology WBC (4.5 - 11.0 x10 3/uL) 22.50 H RBC (3.54 - 5.02 x10 6/uL) 4.48 Hgb (11.0 - 15.0 g/dL) 13.5 Hct (33.0 - 45.0 %) 44.2 MCV (81.0 - 99.0 fL) 98.7 MCH (27.0 - 33.0 pg) 30.1 MCHC (33.0 - 37.0 g/dL) 30.5 L RDW (11.5 - 14.5 %) 13.4 Plt Count (150 - 400 x10 3/uL) 331 MPV (7.0 - 9.0 fL) 12.1 H Add Manual Diff YES Seg Neutrophils % (37 - 69 %) 90.9 H Lymphocytes % (Manual) (23 - 55 %) 4.6 L Monocytes % (Manual) (0 - 10 %) 3.6 Myelocytes (0.0 - 0.0 %) 0.9 H Platelet Estimate (ADEQUATE THOUSAND) Adequate Plt Morphology Comment LARGE PLATELETS Poikilocytosis 2+ Laboratory Tests 09/25 414 Urines Urine Color (YEL/STRAW) YELLOW Urine Appearance (CLEAR) SL CLOUDY Urine pH (5.0 - 7.0) 5.0 Ur Specific [place] (1.005 - 1.030) 1.011 Urine Protein (NEGATIVE) 2+ H Urine Glucose (UA) (NEGATIVE) 2+ H Urine Ketones (NEGATIVE) TRACE H Urine Blood (NEGATIVE) 1+ H Urine Nitrite (NEGATIVE) NEGATIVE Urine Bilirubin (NEGATIVE) NEGATIVE Urine Urobilinogen (0.2 - 1.0 mg/dL) 0.2 Ur Leukocyte Esterase (NEGATIVE) TRACE H Urine RBC (0 - 3 RBC/HPF) 4-10 Urine WBC (0 - 3 WBC/HPF) 4-9 H Ur Squamous Epith Cells (NONE SEEN /HPF) 0-5 Urine Bacteria (NONE SEEN /HPF) 1+ H Urine Mucus (NONE SEEN /LPF) TRACE Urine Yeast (NONE /HPF) 1+ H Microbiology:09/26 399 BLOOD: Blood Culture - RECD09/25 344 BLOOD: Blood Culture - REC 034 NASAL: MRSA DNA Surveillance Screen - ORD Radiology data:Recent Impressions:RADIOLOGY - XR CHEST 1 V 09/25 404 Report Impression - Status: SIGNED Entered: 09/26/2019412 IMPRESSION: Mildly hyperinflated, but clear lungs. Lucency beneath the left hemidiaphragm likely related to a mildlydilated gas-filled stomach. An upright view of the abdomen would beconfirmatory and better exclude pneumoperitoneum. SL: TPAINTER-HImpression By: [email or web address] Elizabeth Edward M.D.RADIOLOGY - XR CHEST 1 V 09/26 531 Report Impression - Status: SIGNED Entered: 09/26/201946 IMPRESSION: Hypoinflation associated with interval right IJ central line insertiontip overlying the atriocaval junction without pneumothorax. SL: TPAINTER-HImpression By: Bridget Edward M.D.CAT SCAN - CT C-SPINE W/O CONT 09/25 545 Report Impression - Status: SIGNED Entered: 09/26/2019 0607 IMPRESSION: Mild cervical spondylosis and facet arthrosis without acute fractureor dislocation. Mild chronic bilateral mastoiditis. SL: TPAINTER-HImpression By: Bridget Edward M.D.CAT SCAN - CT HEAD/BRAIN W/O CONT 09/25 545 Report Impression - Status: SIGNED Entered: 09/26/2019 0612 IMPRESSION: Mild to moderate diffuse atrophy is present associated with mildnonspecific periventricular low attenuation most consistent with oldmicroangiopathic ischemic change. No acute intracranial abnormality. Small old appearing lacunar infarctions in both basal ganglia and leftthalamus. Mild chronic sinusitis. Minimal chronic bilateral mastoiditis. SL: TPAINTER-HImpression By: Bridget Edward M.D.CAT SCAN - CT CHEST W/O CONTRAST 09/25 545 Report Impression - Status: SIGNED Entered: 09/26/201932 IMPRESSION: Nonspecific nonobstructive bowel gas pattern associated with milddiffuse colonic wall thickening either related to underdistention ornonspecific colitis. Mild submucosal fat seen in the colon suggestchronic colonic inflammatory change. Mild sigmoid diverticulosis. Moderately dilated stomach with areas of asymmetric wall thickening inthe antrum and greater gastric curvature that may represent gastritisor underlying neoplasm. Follow-up upper GI or endoscopy may behelpful. Additionally, a radionuclide gastric emptying study may behelpful if gastroparesis is suspected clinically. Mild left renal cortical atrophy associated with a small mildlycomplex cyst. Further evaluation may be obtained with renalultrasound. Tiny focus of gas in the urinary bladder may represent recentcatheterization or cold fistula with bowel. Mild diffuse anasarca. Normal size heart associated with moderate coronary arterycalcifications. Mild hyperinflation associated with subsegmental atelectasis andscarring in both lungs greatest in the lung bases. Mild to moderate abdominal aortic atherosclerosis associated withinfrarenal aneurysm measuring 3.1 cm maximum transverse dimension. Mild soft tissue gas in the right anterior abdominal and pelvic walllikely related to recent medication injection. Postoperative change of cholecystectomy. SL: TPAINTER-HImpression By: Bridget Edward M.D.CAT SCAN - CT ABD PELVIS W/O CONT 09/25 0546 Report Impression - Status: SIGNED Entered: 09/26/2019 0632 IMPRESSION: Nonspecific nonobstructive bowel gas pattern associated with milddiffuse colonic wall thickening either related to underdistention ornonspecific colitis. Mild submucosal fat seen in the colon suggestchronic colonic inflammatory change. Mild sigmoid diverticulosis. Moderately dilated stomach with areas of asymmetric wall thickening inthe antrum and greater gastric curvature that may represent gastritisor underlying neoplasm. Follow-up upper GI or endoscopy may behelpful. Additionally, a radionuclide gastric emptying study may behelpful if gastroparesis is suspected clinically. Mild left renal cortical atrophy associated with a small mildlycomplex cyst. Further evaluation may be obtained with renalultrasound. Tiny focus of gas in the urinary bladder may represent recentcatheterization or cold fistula with bowel. Mild diffuse anasarca. Normal size heart associated with moderate coronary arterycalcifications. Mild hyperinflation associated with subsegmental atelectasis andscarring in both lungs greatest in the lung bases. Mild to moderate abdominal aortic atherosclerosis associated withinfrarenal aneurysm measuring 3.1 cm maximum transverse dimension. Mild soft tissue gas in the right anterior abdominal and pelvic walllikely related to recent medication injection. Postoperative change of cholecystectomy. SL: TPAINTER-HImpression By: Bridget Edward M.D. Diagnosis, Assessment Plan Diagnosis, Assessment PlanProblem List/A P: 1. Acute renal failure 2. Hyperkalemia 3. Physical deconditioning 4. Hypomagnesemia 5. Sepsis 6. Acute hypoactive delirium due to another medical condition 7. Lactic acidosis 8. Arterial hypotension Free Text A P: Problem List: Severe sepsis and septic shockUrine tract infectionSevere lactic acidosisSevere metabolic acidosisAcute renal failureLeukocytosisDehydrationDiarrheaHypothermia Assessment and Plan: 74 years old female with past medical history significant for Alzheimer's dementia, behavioral disturbance, hypertension, type 2 diabetes mellitus, migraine headaches, anxiety disorder, bowel and bladder incontinence, rheumatoidarthritis, frequent UTI was brought from the correction. She has been unwell for the past few days. Upon arrival she was found to be hypothermic with a temperature of 33.1 C, profound lactic acidosis at 14, metabolic acidosis with pH of 6.8 and hypercapnia due to respiratory compensation at PCO2 of 9.5 mmHg. Patient is awake, follows commands minimally and answers few yes and no questions. Acute renal failure with a creatinine of 3.9. Has received cefepime, vancomycin and 1 L of crystalloid with a right internal jugular central venouscatheter in place. Upon my assessment her blood pressure is 80/58 mmHg with a heart rate of 117, irregularly irregular and pulse ox of 74%. She is on bear hugger. White blood cell count is 22,000. Has positive UA. There was a question of pneumoperitoneum on the x-ray of the abdomen. CT of the abdomen didnot confirm that finding. A general surgery consult is awaited. Patient will be broadened to Zosyn and Vanco given correction placement. Concern is about ischemic bowel. Also has diarrhea. No blood was reported in the stool. C. difficile toxin and stool has been sent. Patient received 3 A of sodium bicarbonate in the ER and additional 2 more ampules of sodium bicarbonate has been ordered. Potassium is mildly elevated at 5.0. She will be ordered a gram of calcium chloride and D50/insulin. Urine blood cultures have been sent. Patient is receiving her second and third liter of crystalloid with a pressure bag and Levophed is being started at 5 mics per minute via the central venous catheter. She is DNR/DNI. Patient is going to be admitted to medical ICU room #317. Patient is being admitted to medical ICU room #317She is DNR/DNIPatient has profound gram-negative sepsis with severe metabolic and lactic acidosisShe is awake, interactive minimally and follows some commandHas lactic acid of 14.8Has received 1 L of crystalloid so farWill be ordered 30 mL/kg body weight fluid resuscitation and repeat lactate within 3 hoursUrine and blood cultures have been sentPatient received vancomycin and cefepime in the ERBroad-spectrum antibiotic coverage with vancomycin and ZosynWe will check C. difficile toxin and stool given diarrhea nursing homeWhite count is elevated 22,000Chest x-ray did not reveal any pneumonia/consolidation/atelectasisUA is positive for sediment consistent with UAHas profound hypercapnia with a CO2 of 9.5 mmol manifesting adequate respiratorycompensation for profound lactic and metabolic acidosispH is 6.8Recheck ABGPatient is received total of 5 ampoules of sodium bicarbonate to a total of 250 mEqGeneral surgery consult is being quested for question pneumoperitoneum on the chest x-rayCT of the abdomen pelvis report is awaitedConcern for bowel ischemiaHas significant hypothermia with a temperature of 33.1 CPatient is on bear hugger DVT and GI prophylaxis Isarel Vaughan MD [facility].25 AMConsultants: critical care/marine pipefitter helper, hospitalist, nephrologyPlan discussed with: nurseCritical care time: Minutes: 65 Code Status/Resusc. DiscussionCode status: do not resuscitate at 0726 Addendum 1: 09/26/19 0905 by Mick Lin MD Labs reviewedHas worsening lactic acidSeptic shockShe is currently on Levophed drip, hypotensiveHypothermia I talked to the family, talk with the POA. I explained her multiple medical problems, and her poor prognosis. Patient wants her to be DNR/DNI. All questions were answered at 0906 Addendum 2: 09/26/19 1210 by Mick Lin MD patient was on metformin. Has NATHEN and has elevated lactic acid.D/w neprhology, plan is to do HD. Nephro talked to family about HD. at [address] [facility] #:[id number] OF [id number]:00:00G.[id number] for patient [id number]:11:21 [facility]ACL 2019-09-26 03:42:00 [id number]/QYHo [id number]/[id number]:42:00 [facility] ([facility])EMERGENCY PROVIDER REPORTREPORT#:[id number] REPORT STATUS: SignedDATE:09/26/19 TIME: 034 PATIENT: MAC AGUSTIN UNIT #: [id number]#: [id number] [address] 74 SEX: F PCP PHYS: No Primary or Family PhysicianSERVICE AUTHOR: Facundo Phan MD * ALL edits or amendments must be made on the electronic/computer document * HPI-General Illness Free Text HPI NotesFree Text HPI [id number] female arrives with EMS for primary concern of dehydration.Patient arrived from [facility].Patient has history of dementia review of system is not available. EMS reports that patient has been feeling unwell for some time, correction has collected blood work and discovered that patient was in acute renal failure with elevated potassium of 5.0Patient has past medical history of diabetes type 2Alzheimer's type dementiaChronic painAnxietyMigraine headacheFrequent fallsIncontinence of bowel and bladderRheumatoid arthritisFrequent UTIsEssential hypertensionDementia with behavioral disturbances custodial records states that patient has a DNR status. GeneralConfirmed Patient YesPatient Type New patientInitial Greet Date/Time 09/26/19 0339PCPSubwilver Calvert MD COVID-19 RiskCDC COVID RiskReports Age 65 or older, Reports Signif co-morbidity, Denies Exp to person + forCOVID, Denies Exp to PUI, Denies Travel from affected area, Denies Lower resp symptoms, Denies Fever PresentationChief Complaint __ (Dehydration , renal failure)Hx Obtained From EMS, custodial records Review of Systems ROS StatementsAll systems rev neg except as marked.Unable to Obtain ROS Dementia, Medical condition Past Medical History - AdultStated Complaint DEHYDRATION,AllergiesCoded Allergies:penicillamine (UNKNOWN 09/26/19) Physical Exam Vital SignsVital SignsFirst Documented: Result Date Time Pulse Ox 95 09/25 0339 B/P 139/94 09/25 0339 B/P Mean 109 09/25 033 O2 Delivery Room air 09/25 338 Pulse 113 09/25 0339 Resp 26 09/25 338 Temp 33.1 09/25 0439 O2 Flow Rate 3.771794 09/25 0452 Last Documented: Result Date Time O2 Delivery Nasal cannula 09/26 451 O2 Flow Rate 3.266859 09/25 045 Temp 33.1 09/25 0439 Pulse Ox 95 09/25 0339 B/P 139/94 09/25 0339 B/P Mean 109 09/25 0339 Pulse 113 09/25 0339 Resp 26 09/25 338 Review of Vital Signs Reviewed, Vital signs abnormal, tachycardia Physical ExamRectum Rectum/Perineum No gross blood, No discharge, No fecal impaction, No fissures, No hemorrhoids, No lesions, No mass, Sphincter tone NL, rash of labia and perineum Free Text PE NotesFree Text PE NotesGENERAL- Awake, alert-Frail elderly female-Signs of moderate dementia-Cooperative with exam-Uncomfortable ncwjkmykt-Dvn-xalbzfvndLYQW- Atraumatic, normocephalicNECK- Supple, FROMEYES- EOMI, conjunctiva normalENT: - Airway patent-Dry mucous membranes-Poor dentitionRESP - Breath sounds normal, -Tachypnea - no respiratory distress, - no wheezing, no rales, no rhonchi CARDS-Tachycardia - regular rhythm, - normal heart sounds ABDOMEN- Soft, non-tender, no guarding, no rebound, no distention LOWER EXTREMITIES- Non-tender, no swelling-Diffuse muscular atrophy from deconditioning SKIN- Warm, dry, intact-Poor turgor indicative of dehydration NEUROLOGIC - Oriented to self and others, - normal speech, - no localized neurologic deficits-Gait could not be tested-Cranial nerve exam II through XII is normal-Gait was not tested-Generalized weakness on exam PSYCHIATRIC- Normal mood, normal affect, no suicidal ideation, no homicidal ideation-Moderate dementia Interpretation Diagnostics Lab Results InterpretationConsiderations Independ review imaging, Reviewed prior recordsResultsLaboratory Tests 09/26/19 0345:[Embedded Image Not Available]Laboratory Tests: 09/25 09/25 09/25 09/25 0452 0415 0355 0348Blood Gas Puncture Site R Rad ABG pH (7.35 - 7.45) 6.871 *L ABG pCO2 (35 - 45 mmHg) 9.5 *L ABG pO2 (80 - 100 mmHg) 133 H ABG HCO3 (22.0 - 26.0 mmol/L) 1.9 L ABG Total CO2 < 5 ABG O2 Saturation (90 - 100 %) 97 ABG Base Excess (-4 - 4 mmol/L) < -30.0 L Temperature (F) 91.7 O2 Delivery Device Room AirChemistry POC Glucose (70 - 110 MG/DL) 147 H Lactic Acid (0.4 - 1.9 mmol/L) 14.8 *HUrines Urine Color (YEL/STRAW) YELLOW Urine Appearance (CLEAR) SL CLOUDY Urine pH (5.0 - 7.0) 5.0 Ur Specific [place] (1.005 - 1.030) 1.011 Urine Protein (NEGATIVE) 2+ H Urine Glucose (UA) (NEGATIVE) 2+ H Urine Ketones (NEGATIVE) TRACE H Urine Blood (NEGATIVE) 1+ H Urine Nitrite (NEGATIVE) NEGATIVE Urine Bilirubin (NEGATIVE) NEGATIVE Urine Urobilinogen (0.2 - 1.0 mg/dL) 0.2 Ur Leukocyte Esterase (NEGATIVE) TRACE H Urine RBC (0 - 3 RBC/HPF) 4-10 Urine WBC (0 - 3 WBC/HPF) 4-9 H Ur Squamous Epith Cells (NONE SEEN 0-5/HPF) Urine Bacteria (NONE SEEN /HPF) 1+ H Urine Mucus (NONE SEEN /LPF) TRACE Urine Yeast (NONE /HPF) 1+ H 09/25 09/25 0345 0345 Chemistry Sodium (134 - 147 mEq/L) 144 Potassium (3.4 - 5.0 mEq/L) 3.2 L Chloride (100 - 108 mEq/L) 114 H Carbon Dioxide (21 - 33 mEq/L) 4 L Anion Gap (0 - 20) 29 H BUN (7 - 18 mg/dL) 69 H Creatinine (0.6 - 1.3 mg/dL) 3.9 H Glomerular Filtr Rate (70 - 80) 11.4 L Glucose (70 - 110 mg/dL) 100 Calcium (8.0 - 10.5 mg/dL) 5.6 *L Magnesium (1.8 - 2.4 mg/dL) 0.90 *L Total Bilirubin (<1.5 MG/DL) 0.2 Direct Bilirubin (0.0 - 0.30 MG/DL) < 0.10 Indirect Bilirubin (MG/DL) 0.10 AST (15 - 37 IUnit/L) 7 L ALT (15 - 65 IUnit/L) 12 L Total Alk Phosphatase (20 - 125 IUnit/L) 39 Troponin I (0.000 - 0.045 ng/mL) 0.029 B-Natriuretic Peptide (0 - 100 PG/ML) 304.2 H Total Protein (6.4 - 8.2 g/dL) 5.1 L Albumin (3.4 - 5.0 g/dL) 2.30 L Lipase (73 - 393 IUnit/L) 139 TSH (0.42 - 5.47 IU/mL) 0.68 Coagulation INR (0.8 - 1.2) 1.1 PTT ([place]) (25.0 - 39.5 Seconds) 22.2 L PT Patient/Control Mix (9.3 - 12.9 SECONDS) 11.7 Hematology WBC (4.5 - 11.0 x10 3/uL) 22.50 H RBC (3.54 - 5.02 x10 6/uL) 4.48 Hgb (11.0 - 15.0 g/dL) 13.5 Hct (33.0 - 45.0 %) 44.2 MCV (81.0 - 99.0 fL) 98.7 MCH (27.0 - 33.0 pg) 30.1 MCHC (33.0 - 37.0 g/dL) 30.5 L RDW (11.5 - 14.5 %) 13.4 Plt Count (150 - 400 x10 3/uL) 331 MPV (7.0 - 9.0 fL) 12.1 H Add Manual Diff YES Seg Neutrophils % (37 - 69 %) 90.9 H Lymphocytes % (Manual) (23 - 55 %) 4.6 L Monocytes % (Manual) (0 - 10 %) 3.6 Myelocytes (0.0 - 0.0 %) 0.9 H Platelet Estimate (ADEQUATE THOUSAND) Adequate Plt Morphology Comment LARGE PLATELETS Poikilocytosis 2+ Microbiology: Date/Time Procedure - Status Source Growth 09/25 0400 Blood Culture - RECD BLOOD 09/25 0345 Blood Culture - RECD BLOOD 09/25 0341 MRSA DNA Surveillance Screen - ORD NASAL Recent Impressions:RADIOLOGY - XR CHEST 1 V 09/25 0405 Report Impression - Status: SIGNED Entered: 09/26/2019 0413 IMPRESSION: Mildly hyperinflated, but clear lungs. Lucency beneath the left hemidiaphragm likely related to a mildlydilated gas-filled stomach. An upright view of the abdomen would beconfirmatory and better exclude pneumoperitoneum. SL: TPAINTER-HImpression By: Bridget Edward M.D.RADIOLOGY - XR CHEST 1 V 09/25 0532 Report Impression - Status: SIGNED Entered: 09/26/2019 0546 IMPRESSION: Hypoinflation associated with interval right IJ central line insertiontip overlying the atriocaval junction without pneumothorax. SL: TPAINTER-HImpression By: Bridget Edward M.D.CAT SCAN - CT C-SPINE W/O CONT 09/25 0446 Report Impression - Status: SIGNED Entered: 09/26/2019 0607 IMPRESSION: Mild cervical spondylosis and facet arthrosis without acute fractureor dislocation. Mild chronic bilateral mastoiditis. SL: TPAINTER-HImpression By: Bridget Edward M.D.CAT SCAN - CT HEAD/BRAIN W/O CONT 09/25 0446 Report Impression - Status: SIGNED Entered: 09/26/2019 0612 IMPRESSION: Mild to moderate diffuse atrophy is present associated with mildnonspecific periventricular low attenuation most consistent with oldmicroangiopathic ischemic change. No acute intracranial abnormality. Small old appearing lacunar infarctions in both basal ganglia and leftthalamus. Mild chronic sinusitis. Minimal chronic bilateral mastoiditis. SL: TPAINTER-HImpression By: Bridget Edward M.D.CAT SCAN - CT CHEST W/O CONTRAST 09/25 0546 Report Impression - Status: SIGNED Entered: 09/26/2019 0632 IMPRESSION: Nonspecific nonobstructive bowel gas pattern associated with milddiffuse colonic wall thickening either related to underdistention ornonspecific colitis. Mild submucosal fat seen in the colon suggestchronic colonic inflammatory change. Mild sigmoid diverticulosis. Moderately dilated stomach with areas of asymmetric wall thickening inthe antrum and greater gastric curvature that may represent gastritisor underlying neoplasm. Follow-up upper GI or endoscopy may behelpful. Additionally, a radionuclide gastric emptying study may behelpful if gastroparesis is suspected clinically. Mild left renal cortical atrophy associated with a small mildlycomplex cyst. Further evaluation may be obtained with renalultrasound. Tiny focus of gas in the urinary bladder may represent recentcatheterization or cold fistula with bowel. Mild diffuse anasarca. Normal size heart associated with moderate coronary arterycalcifications. Mild hyperinflation associated with subsegmental atelectasis andscarring in both lungs greatest in the lung bases. Mild to moderate abdominal aortic atherosclerosis associated withinfrarenal aneurysm measuring 3.1 cm maximum transverse dimension. Mild soft tissue gas in the right anterior abdominal and pelvic walllikely related to recent medication injection. Postoperative change of cholecystectomy. SL: TPAINTER-HImpression By: [email or web address] - Amadeo Edward M.D.CAT SCAN - CT ABD PELVIS W/O CONT 09/25 0546 Report Impression - Status: SIGNED Entered: 09/26/2019 0632 IMPRESSION: Nonspecific nonobstructive bowel gas pattern associated with milddiffuse colonic wall thickening either related to underdistention ornonspecific colitis. Mild submucosal fat seen in the colon suggestchronic colonic inflammatory change. Mild sigmoid diverticulosis. Moderately dilated stomach with areas of asymmetric wall thickening inthe antrum and greater gastric curvature that may represent gastritisor underlying neoplasm. Follow-up upper GI or endoscopy may behelpful. Additionally, a radionuclide gastric emptying study may behelpful if gastroparesis is suspected clinically. Mild left renal cortical atrophy associated with a small mildlycomplex cyst. Further evaluation may be obtained with renalultrasound. Tiny focus of gas in the urinary bladder may represent recentcatheterization or cold fistula with bowel. Mild diffuse anasarca. Normal size heart associated with moderate coronary arterycalcifications. Mild hyperinflation associated with subsegmental atelectasis andscarring in both lungs greatest in the lung bases. Mild to moderate abdominal aortic atherosclerosis associated withinfrarenal aneurysm measuring 3.1 cm maximum transverse dimension. Mild soft tissue gas in the right anterior abdominal and pelvic walllikely related to recent medication injection. Postoperative change of cholecystectomy. SL: TPAINTER-HImpression By: [email or web address] - Amadeo Edward M.D. Lab Imaging StatementLaboratory radiographic studies reviewed and considered in the medical decision-making. ECG #1 InterpretationText/Dict NoteSinus tachycardia with PVCsRate [address] elevation or depressionECG Documented in MUSE YesDate 09/26/19Time 0351Interpreted by ED physicianNL ECG Interpretation No acute ischemic changes, No STEMI, Normal intervals, poor baseline muscle tremor Rate 122 Procedures Central Line Placement #1Text/Dict NoteSepsis severe acidosisImpending vascular collapseTime 0600Procedure Performed by ED physicianConsent/Setup/Site Prep Verified correct patient, No consent - emergent, Time-out performed, Needle aspirate performed, Oxygen administered, Pulse oximeter applied, monitoring manager applied, Hand hygiene observed, Standard surgical scrub, Max barrier precaution, Sterile drapes applied, Position TrendelenburgSkin Preparation Agent Hibiclens - ChlorhexidineLocal Anesthesia Lidocaine 1%, 5 mL, 27g needleProcedural Sedation/Analgesia NONESide/Location/Ultrasound Internal jugular R, Ultrasound assistedCatheter/Lumen/Technique Catheter size (7 FR), Triple lumen, Seldinger technique, Guide wire removed, Good blood return, Secured with sutureNumber of Attempts 1Post-Procedure/Complications Antibiotic oint applied, Dressing placed, CXR neg for pneumothorax, Cath tip good position, Condition improved, Tolerated procedure well, Patient stable Full Risk Stratification Risk StratificationNIH Stroke Score NIH Stroke Score Response Value Level of consciousness: Not alert,arousable 1 Ask Month Age: Answers one correctly 1 Open/close eyes/hand watch guard gate Performs both correctly 0 Horizontal EO movements None 0 Visual wilder: No visual field loss 0 Facial palsy: Nml symmetrical movement 0 Lt arm motor drift (10s) No drift 0 Rt motor arm drift (10s) No drift 0 Lt leg motor drift (5s) No drift 0 Rt leg motor drift (5s) No drift 0 Limb ataxia FNF/heel-bryant (F-N/H-S) Absent 0 Sensation (arms/legs/face): No sensory loss 0 Language aphasia: No aphasia; normal 0 Dysarthria: Normal 0 Extinction/inattention: No abnormality 0 Total 2 NIH Stroke Score Timing Time 338 Date 09/26/19[place] Coma Score > Age 5 [place] Coma Score > Age 5 Response Value Eye Opening Open to verbal (3) 3 Verbal Response Confused (4) 4 Motor Response Obeys commands (6) 6 Total 13 Free Text Risk NotesFree Text Risk NotesNo lateralizing deficits suspicion for CVA is lowTPA is not indicated and is not considered in the case of this patient. Re-Evaluation MDM Re-Evaluation/Progress #1Text/Dict NotePatient developed hypotension Levophed was startedTime of Re-Eval 0643Re-Eval Status Unchanged Sepsis ReassessmentDate of exam: 09/26/19Time of exam: 0648Vital signs:SEE VITAL SIGN SECTION Cardiac assessment: regular rate rhythm, no ectopy, TACHYCARDIA Respiratory assessment: aerating well, clear to auscultationCapillary refill assess: less than 2 secPeripheral pulse assess: Radial pulse: 2+Skin color: pink ED CourseMedication(s) OrderedMedication(s) Ordered:Anti-Infective Agents Sig/Rose Mary Start time Last Medication Dose Route Stop Time Status Admin Piperacillin Sod/ 3.375 GM X1ED STA 09/25 0614 DC 09/25 Tazobactam Sod IV 09/25 0643 0646 Sodium Chloride 100 ML Cefepime HCl 2 GM X1ED STA 09/25 0348 DC 09/25 Sodium Chloride 20 ML IV 09/25 0350 0401 Vancomycin HCl 1,000 MG X1ED STA 09/25 0348 DC 09/25 Sodium Chloride 250 ML IV 09/25 0447 0401 Autonomic Drugs Sig/Rose Mary Start time Last Medication Dose Route Stop Time Status Admin Norepinephrine 250 ML X1ED STA 09/25 0640 AC 09/25 Bitartrate IV 10/05 1639 0648 Norepinephrine 250 ML .STK-MED ONE 09/25 0640 DC Bitartrate IV Albuterol/Ipratropium 3 ML RTQ4H PRN PRN 09/25 0630 AC INH 09/26 0529 Central Nervous System Agents Sig/Rose Mary Start time Last Medication Dose Route Stop Time Status Admin Acetaminophen 650 MG Q4H PRN PRN 09/25 0630 AC PO 09/26 0529 Lorazepam 1 MG Q4H PRN PRN 09/25 0630 AC IV 09/26 0529 Morphine Sulfate 2 MG Q4H PRN PRN 09/25 0630 AC IV 09/26 0529 Ziprasidone 20 MG X1ED STA 09/25 0624 DC IM 09/25 0625 Lorazepam 2 MG ONCE ONE 09/25 0445 DC 09/25 IV 09/25 0446 0513 Lorazepam 0 .STK-MED ONE 09/25 0438 DC IV Magnesium Sulfate 100 ML X1ED STA 09/25 0425 AC 09/25 IV 09/25 0824 0511 Electrolytic, Caloric, And Erica Sig/Rose Mary Start time Last Medication Dose Route Stop Time Status Admin Sodium Chloride 0 ASDIR PRN 09/25 0645 AC IV 09/26 0529 Sodium Bicarbonate 100 MEQ X1ED STA 09/25 0636 DC 09/25 IV 09/25 0637 0656 Potassium Chloride/ 1,000 ML X1ED STA 09/25 0635 AC 09/25 Dextrose/Sod Cl IV 09/25 1434 0700 Dextrose/Water 125 ML ASDIR PRN 09/25 0630 AC IV 09/26 0529 Dextrose/Water 250 ML ASDIR PRN 09/25 0630 AC IV 09/26 0529 Lactated Ringer's 1,000 ML X1ED STA 09/25 0623 DC 09/25 IV 09/25 0624 0647 Sodium Chloride 0 ASDIR PRN 09/25 0445 AC IV 10/25 0444 Calcium Gluconate 1,000 MG X1ED STA 09/25 0424 DC 09/25 Sodium Chloride 50 ML IV 09/25 0433 0512 Calcium Gluconate 1,000 MG X1ED STA 09/25 0424 DC 09/25 Sodium Chloride 50 ML IV 09/25 0433 0513 Sodium Bicarbonate 150 MEQ X1ED STA 09/25 0424 DC 09/25 IV 09/25 0425 0511 Sodium Chloride 1,000 ML X1ED STA 09/25 0347 DC 09/25 IV 09/25 0446 0401 Sodium Chloride 1,000 ML X1ED STA 09/25 0347 AC 09/25 IV 09/25 1146 0402 Sodium Chloride 0 ASDIR PRN 09/25 0345 AC IV 09/26 0240 Gastrointestinal Drugs Sig/Rose Mary Start time Last Medication Dose Route Stop Time Status Admin Ondansetron HCl 4 MG Q6H PRN PRN 09/25 0630 AC IV 09/26 0529 Hormones And Synthetic Substit Sig/Rose Mary Start time Last Medication Dose Route Stop Time Status Admin Insulin Human Lispro 0 AC HS 09/25 0730 AC SUBQ 09/26 0529 Glucagon 1 MG ASDIR PRN 09/25 629 AC IM 09/26 05 Pharmaceutical Aids Sig/Rose Mary Start time Last Medication Dose Route Stop Time Status Admin Sterile Water 1.2 ML ASDIR 09/25 629 AC IM 09/26 0524 ConsultationConsultation 1 Referral/Consult Name Israel Vaughan MD [employer] Called [employer] Requested Call Time 0646 Requested Call Date 09/26/19 Call Returned Call returned Call Returned Time 0646 Call Returned Date 09/26/19 [employer]orer Will see patient, Agrees with eval, Agrees with plan, EVALUATED PATIENT IN ER Consultation 2 Referral/Consult Name; Yo,In Ramandeep [employer]orer Called General Surgery Requested Call Time 0647 Requested Call Date 09/26/19 Call Returned Call returned Call Returned Time 0647 Call Returned Date 09/26/19 [employer] Laborer Will see patient, Agrees with eval, Agrees with planConsultation 3 Referral/Consult Name; Sofia Vaughan MD [employer] Called Nephrology Requested Call Time 0648 Requested Call Date 09/26/19 Call Returned Call returned Call Returned Time 0648 Call Returned Date 09/26/19 [employer] Laborer Will see patient, Agrees with eval, Agrees with plan Patient Discharge Departure Vital Signs/ConditionVital SignsFirst Documented: Result Date Time Pulse Ox 95 09/25 0339 B/P 139/94 09/25 0339 B/P Mean 109 09/25 0339 O2 Delivery Room air 09/25 033 Pulse 113 09/25 0339 Resp 26 09/25 0339 Temp 33.1 09/25 0439 O2 Flow Rate 3.305603 09/25 0452 Last Documented: Result Date Time O2 Delivery Nasal cannula 09/26 451 O2 Flow Rate 3.128714 09/25 0452 Temp 33.1 09/25 0439 Pulse Ox 95 09/25 0339 B/P 139/94 09/25 0339 B/P Mean 109 09/25 0339 Pulse 113 09/25 0339 Resp 26 09/25 0339 All vital signs available at the time of this entry have been reviewed. Condition Improved, Stable Clinical ImpressionClinical ImpressionPrimary Impression: SepsisSecondary Impressions: Acute hypoactive delirium due to another medical condition, Acute renal failure, Arterial hypotension, Hypomagnesemia, Lactic acidosis, Physical deconditioningTime of Impression 0642 SepsisED Course Included Treatment Septic shock (R65.21)Include in Clinical Impression Septic shock (R65.21) Disposition DecisionAdmit Admit Physician Name Ray Kat MD Admit Physician Hospitalist Request Time 638 Request Date 09/26/19 )( Admission Accepts Yes )( Accepted Time 638 )( Accepted Date 09/26/19 Call Information will see patient, agrees with eval, agrees with plan, ADMISSION PLACED UNDER DR CY LIZAMA-19 Discharge PlanCD Criteria Met for Testing NoTest Performed No CDC Recom for Isol Retest https://www.cdc.gov/coronavirus/2019-ncov/infection-contr ol/control-recommendations.html Discharge/Care PlanCounseled Regarding Diagnosis, Lab results, Imaging studies, Need for admission,DISCUSSED WITH FAMILY OF PATIENT Admit NoteI have spoken with the patient and/or caregivers. I have explained the patient's condition, diagnoses and treatment plan based on the information available to me at this time. I have answered the patient's and/or caregiver's questions and addressed any concerns. The patient and/or caregivers have as good an understanding of the patient's diagnosis, condition and treatment plan as can be expected at this point. The patient has been stabilized within the capability of the emergency department. The patient will be transported for further care and management or will be moved to an observation or inpatient service. I have communicated with the staff or medical practitioner taking over this patient's care. DISCUSSED WITH FAMILY OF THE PATIENT Critical CareTime Spent (minutes): 46Services Performed Patient management by me, Time spent at bedside, Reviewing test results, Reviewing imaging, Discussing patient care, Documentation in record, Time with fam/surrogateSeparately billable procedures excluded from time.Patient was critically ill due to:SepsisHypertensionHypothermiaMultiple severe electrolyte imbalancesMy treatment and management were:Hemodynamic managed CC Note 1Total critical care time 46 minutes. Total critical care time documented does not include time spent on separately billed procedures or the services of residents, students, nurses or physician assistants. I personally saw and examined the patient. I have reviewed all diagnostic interpretations and treatment plans as written. I was present for the carmona portions of any procedures performed and the inclusive time noted in any critical care statement. Critical care time includes patient management by me, time spent at the patients bedside, time to review lab and imaging results, discussing patient care, documentation in the medical record, and time spent with the family or caregiver. Free Text Depart NotesFree Text Depart Notes Summary 74-year-old female brought in from correction for multiple problemsI spoke with the family and confirmed that patient is DNR. Work-up revealed-Severe xfxtpwyw-Szuichtiaijf-Ywccf of jrvrmr-IEM-Hegsbp acid of 14.8-Acute renal bnuisuv-Utvhrehwuzcdn-Kufrfkkvvajtmz-High anion gap csnlrkqe-Yzdinzmpyxgwmpb-Uvesakp on CT scan-Incidentally patient has findings of prior cholecystectomy-Moderately dilated stomach representing potential gastritis-Diffuse tzczbtvj-Adgxondbkzl-Jibvq hypoactive delirium PlanElectrolytes were replaced ALEX placed a central line anticipating that patient will develop hypotension and shockPatient did develop hypotension and had to be started on LevophedPatient was given a total of 2 L of IV fluid bolus in the ERMaintenance fluids started 125 an hourPatient was given Vancomycin IV , Cefepime IV and then given Zosyn IV based on recommendation of IntensivistPatient will be managed in ICUGeneral surgery was consulted for possible bowel ischemia, secondary to lactic acid of 14.8Suspicion for CO VID 19 is low at this timePatient does not warrant CO VID 19 testingI have also placed consult for Nephrology. While in ER patient developed agitation and had to be given 2 mg IV Ativan.Ballard catheter was placed for monitoring urine output. I personally called patient's daughter and explained that patient is very ill and prognosis is poor at this time.I advised family to come to the hospital and have a consultation with attending MD to determine how aggressive they want us to be in the management of the patient. at 0706RPT #:[id number] OF REPORTEDEmergency department [id number] for patient [id number] [facility]
--- NOTE | 2023-07-26 04:53 | ER ---
Nurse's Notes [facility] Name: Ariella Bustillo Age: 78 yrs Sex: Female : 1945 Arrival Date: 07/26/2023 Time: 02:20 Bed 6 Private MD: Diagnosis: Fall on same level, unspecified;Acute fall from the detention, dementia, normal medical screening exam. Presentation: 07/26 02:20 Chief complaint: EMS states: Pt from [facility]. She was trying to grab 1 something off of the floor when she leaned over and tumbled out of bed. 02:20 Coronavirus screen: Client denies travel out of the [place] in the last 14 days. At this vc1 time, the client does not indicate any symptoms associated with coronavirus-19. Ebola Screen: Patient negative for fever greater than or equal to 101.5 degrees Fahrenheit, and additional compatible Ebola Virus Disease symptoms Patient denies exposure to infectious person. Patient denies travel to an Ebola-affected area in the 21 days before illness onset. No symptoms or risks identified at this time. Initial Sepsis Screen: Does the patient meet any 2 criteria? No. Patient's initial sepsis screen is negative. Does the patient have a suspected source of infection? No. Patient's initial sepsis screen is negative. Risk Assessment: Do you want to hurt yourself or someone else? Patient reports no desire to harm self or others. Onset of symptoms was July 26, 2023. 02:20 Method Of Arrival: EMS: [facility] vc1 02:20 Acuity: FRANSISCO 2 vc1 Triage Assessment: 02:20 General: Appears in no apparent distress. comfortable, Behavior is cooperative. Pain: vc1 Complains of pain in left hip and left arm Pain does not radiate. Pain began suddenly. EENT: No deficits noted. No signs and/or symptoms were reported regarding the EENT system. Neuro: Level of Consciousness is awake, obeys commands, Oriented to person, place. Cardiovascular: No deficits noted. Respiratory: Airway is patent Respiratory effort is even, unlabored, Respiratory pattern is regular, symmetrical. GI: No deficits noted. No signs and/or symptoms were reported involving the gastrointestinal system. : No deficits noted. No signs and/or symptoms were reported regarding the genitourinary system. Derm: No deficits noted. No signs and/or symptoms reported regarding the dermatologic system. Musculoskeletal: Reports pain in left hip and left arm. Historical: - Allergies: 02:20 PENICILLINS; vc1 - Home Meds: 02:42 metformin 500 mg Oral tablet 2 times per day [Active]; glimepiride 1 mg Oral tablet 2 vc1 times per day [Active]; Lipitor 10 mg Oral tablet every day at bedtime [Active]; Remeron 15 mg Oral tablet every day at bedtime [Active]; Depakote Sprinkles 125 mg Oral Capsule, Delayed Release Sprinkle 2 times per day [Active]; Zyrtec 10 mg Oral tablet daily [Active]; Pepcid 20 mg Oral tablet daily [Active]; artificial tears(hypromellose) 0.3 % Opht drops 2 drops every 12 hours [Active]; promethazine 25 mg Oral tablet 1 tab every 6 hours [Active]; sitagliptin phosphate 50 mg oral tablet daily [Active]; Imodium Oral 2 mg every 4 hours PRN [Active]; - PMHx: 02:20 diabetes mellitus; vc1 02:42 Rheumatoid arthritis; dysphagia; Dementia; Anxiety; Alzheimer's disease; insomnia; vc1 Gastroesophageal reflux disease; Osteoarthritis; Anterograde Amnesia; - PSHx: 02:20 Appendectomy; back surgery; vc1 - Immunization history:: unknown. - Social history:: Smoking status: Patient denies any tobacco usage or history of. - Family history:: not pertinent. Screenin:20 [facility] ED Fall Risk Assessment (Adult) History of falling in the last 3 months, vc1 including since admission Yes- physiologic fall (2 pts) Confusion or Disorientation Yes (5 pts) Intoxicated or Sedated No (0 pts) Impaired Gait Yes (1 pt) Mobility Assist Device Used No (0 pt) Altered Elimination No (0 pt) Score/Fall Risk Level 3 or more points = High Risk Oriented to surroundings, Maintained a safe environment, Educated pt \T\ family on fall prevention, incl call for assistance when getting out of bed, Assessed \T\ reinforced patient's understanding of fall precautions, Provided non-skid footwear, Hourly rounding (assess needs \T\ fall precautionary measures) done, Apply high fall risk patient identification: yellow non skid footwear/ fall signage. Abuse screen: Denies threats or abuse. Nutritional screening: No deficits noted. Tuberculosis screening: No symptoms or risk factors identified. Assessment: 03:00 Reassessment: No changes from previously documented assessment. Patient and/or family vc1 updated on plan of care and expected duration. Pain level reassessed. 04:00 Reassessment: Patient appears in no apparent distress at this time. No changes from vc1 previously documented assessment. Patient and/or family updated on plan of care and expected duration. Pain level reassessed. 04:52 General: contacted [facility], they will call [facility] to provide vc1 transportation. 04:54 Reassessment: No changes from previously documented assessment. Patient and/or family vc1 updated on plan of care and expected duration. Pain level reassessed. Vital Signs: 02:20 BP 120 / 76; Pulse 67; Resp 18; Temp 98; Pulse Ox 99% ; Weight 72.57 kg; Height 5 ft. 1 vc1 in. ; 03:00 BP 138 / 63; Pulse 66; Resp 18; Pulse Ox 100% ; vc1 04:00 BP 162 / 60; Pulse 70; Resp 17; Pulse Ox 94% ; vc1 02:20 Body Mass Index 30.23 (72.57 kg, 154.94 cm) vc1 ED Course: 02:23 Patient arrived in ED. wm 02:32 Triage completed. vc1 02:36 Arm band placed on right wrist. vc1 02:36 Patient has correct armband on for positive identification. Bed in low position. Call vc1 light in reach. Side rails up X2. Client placed on continuous cardiac and pulse oximetry monitoring. NIBP monitoring applied. 02:54 Facundo Phan MD is Attending Physician. sp4 03:30 Pelvis XRAY In Process Unspecified. EDMS 03:30 Shoulder Left (2 View) XRAY In Process Unspecified. EDMS 03:30 Elbow Left 2 View XRAY In Process Unspecified. EDMS 04:56 No provider procedures requiring assistance completed. Patient did not have IV access vc1 during this emergency room visit. 05:47 Provided Education on: n/a. km8 Administered Medications: No medications were administered Medication: 02:39 VIS not applicable for this client. vc1 Outcome: 04:53 Discharge ordered by . sp4 05:46 Discharged to detention. km8 05:46 Condition: good 05:46 Discharge instructions given to detention, Instructed on discharge instructions, follow up and referral plans. Demonstrated understanding of instructions, follow-up care, 05:47 Patient left the ED. km8 Signatures: Dispatcher [employer] Angelita Maxwell Vanessa, RN RN vc1 Facundo Phan MD MD sp4 Constanza Rojas RN RN km8
--- NOTE | 2023-07-26 04:53 | EDPHYS ---
Physician Documentation [facility] Name: Ariella Bustillo Age: 78 yrs Sex: Female : 1945 Arrival Date: 07/26/2023 Time: 02:20 Bed 6 Private MD: ED Physician Facundo Phan HPI: 07/26 04:05 This 78 yrs old Female presents to ER via EMS with complaints of Fall Injury. sp4 04:49 Patient is 78-year-old female with history of moderate dementia from [place] [address] [facility] rehab facility. Patient presents with acute fall at the group home via tumbling out of bed. Patient does not have any specific complaints. Denied any pain denied head injury. Was some report of left hip tenderness and pain. . Historical: - Allergies: 02:20 PENICILLINS; vc1 - Home Meds: 02:42 metformin 500 mg Oral tablet 2 times per day [Active]; glimepiride 1 mg Oral tablet 2 vc1 times per day [Active]; Lipitor 10 mg Oral tablet every day at bedtime [Active]; Remeron 15 mg Oral tablet every day at bedtime [Active]; Depakote Sprinkles 125 mg Oral Capsule, Delayed Release Sprinkle 2 times per day [Active]; Zyrtec 10 mg Oral tablet daily [Active]; Pepcid 20 mg Oral tablet daily [Active]; artificial tears(hypromellose) 0.3 % Opht drops 2 drops every 12 hours [Active]; promethazine 25 mg Oral tablet 1 tab every 6 hours [Active]; sitagliptin phosphate 50 mg oral tablet daily [Active]; Imodium Oral 2 mg every 4 hours PRN [Active]; - PMHx: 02:20 diabetes mellitus; vc1 02:42 Rheumatoid arthritis; dysphagia; Dementia; Anxiety; Alzheimer's disease; insomnia; vc1 Gastroesophageal reflux disease; Osteoarthritis; Anterograde Amnesia; - PSHx: 02:20 Appendectomy; back surgery; vc1 - Immunization history:: unknown. - Social history:: Smoking status: Patient denies any tobacco usage or history of. - Family history:: not pertinent. ROS: 04:49 Constitutional: Negative for fever, chills, and weight loss, denies any specific sp4 complaints 04:49 All other systems are negative, Exam: 04:49 Constitutional: This is a well developed, well nourished patient who is awake, alert, sp4 and in no acute distress. Positive for moderate dementia Head/Face: Normocephalic, atraumatic. Eyes: Pupils equal round and reactive to light, extra-ocular motions intact. Lids and lashes normal. Conjunctiva and sclera are not injected. Cornea within normal limits. Periorbital areas with no swelling, redness, or edema. ENT: Nares patent. No nasal discharge, no septal abnormalities noted. Tympanic membranes are normal and external auditory canals are clear. Oropharynx with no redness, swelling, or masses, exudates, or evidence of obstruction, uvula midline. Mucous membranes moist. Neck: Trachea midline, no thyromegaly or masses palpated, and no cervical lymphadenopathy. Supple, full range of motion without nuchal rigidity, or vertebral point tenderness. Chest/axilla: Normal chest wall appearance and motion. Nontender with no deformity. No lesions are appreciated. Cardiovascular: Regular rate and rhythm with a normal S1 and S2. No gallops, murmurs, or rubs. Normal PMI, no JVD. No pulse deficits. Respiratory: Lungs have equal breath sounds bilaterally, clear to auscultation and percussion. No rales, rhonchi or wheezes noted. No increased work of breathing, no retractions or nasal flaring. Abdomen/GI: Soft, with normal bowel sounds. No distension or tympany. No guarding or rebound. No evidence of tenderness throughout. Back: No spinal tenderness. No costovertebral tenderness. Female : Normal external genitalia. 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 Normal color with no rashes, no lesions, and no evidence of cellulitis. MS/ Extremity: Pulses equal, no cyanosis. Neurovascular intact. Full, normal range of motion. Normal bilateral hip rotation, normal bilateral lower extremity exam, signs of moderate physical deconditioning otherwise no sign of acute injury, no discoloration, no contusion, no ROM restriction Neuro: Awake and alert, GCS 15, oriented to person, time limited secondary to dementia, no signs of lateralizing neurologic deficits. Cranial nerves II-XII grossly intact. Motor strength 5/5 in all extremities. Sensory grossly intact. 06:54 ECG was reviewed by the Attending Physician. 02:36 AM sp4 Vital Signs: 02:20 BP 120 / 76; Pulse 67; Resp 18; Temp 98; Pulse Ox 99% ; Weight 72.57 kg; Height 5 ft. 1 vc1 in. ; 03:00 BP 138 / 63; Pulse 66; Resp 18; Pulse Ox 100% ; vc1 04:00 BP 162 / 60; Pulse 70; Resp 17; Pulse Ox 94% ; vc1 02:20 Body Mass Index 30.23 (72.57 kg, 154.94 cm) vc1 MDM: 04:30 Patient medically screened. sp4 04:43 ED course: EXAMINATION: XR ELBOW 1-2 VIEWS LEFT INDICATION: Female, 78 years old, PAIN sp4 TECHNIQUE: 2 views COMPARISON(S): None. FINDINGS: No acute fracture or dislocation. Diffuse osteopenia. No overt effusion or significant degenerative change. Unremarkable soft tissues. IMPRESSION: No acute osseous finding of the left elbow. ED course: EXAMINATION: XR SHOULDER 2 OR MORE VIEWS LEFT INDICATION: Female, 78 years old, PAIN TECHNIQUE: 2 views COMPARISON(S): None. FINDINGS: Exam is limited by lack of orthogonal view and diffuse osteopenia. No evidence of acute fracture or dislocation. At least mild glenohumeral and acromioclavicular osteoarthrosis. Unremarkable soft tissues and imaged chest. IMPRESSION: No acute osseous finding of the left shoulder.. ED course: EXAMINATION: XR PELVIS 1-2 VIEWS INDICATION: Female, 78 years old, PAIN TECHNIQUE: 1 view COMPARISON(S): None. FINDINGS: Diffuse osteopenia, suboptimal positioning, beam underpenetration and overlying structures limit assessment. No evidence of fracture or dislocation. Degenerative change of the hips, lumbosacral spine and sacroiliac joints. Multiple vascular calcifications. IMPRESSION: Limited exam. No acute osseous finding in the pelvis. Consider CT if there is persistent clinical concern.. 04:49 Differential diagnosis: abrasion, closed head injury, contusion, fracture, laceration, sp4 multiple trauma, sprain, strain. Data reviewed: vital signs, nurses notes, EMS record, old medical records, radiologic studies, plain films. Consideration of Admission/Observation Escalation of care including admission/observation considered. ED course: Based on imaging and examination patient has no sign of significant emergent injury. Patient stable for discharge back to the group home. Will request EMS transport back to [facility]. . 07/26 02:39 Order name: Glucose, Ancillary Testing; Complete Time: 04:43 EDMS 07/26 02:27 Order name: Pelvis XRAY jb4 07/26 02:27 Order name: Shoulder Left (2 View) XRAY jb4 07/26 02:27 Order name: Elbow Left 2 View XRAY jb4 EC:54 Rate is 76 beats/min. Rhythm is irregular, Normal Sinus Rhythm with PACs. Left axis sp4 deviation noted. [place] interval is normal. QRS interval is normal. QT interval is normal. No Q waves. T waves are Normal. No ST changes noted. Clinical impression: No evidence of ischemia. Interpreted by me. Administered Medications: No medications were administered Disposition Summary: 07/26/23 04:53 Discharge Ordered Notes: No sign of acute emergent or dangerous injury. Location: Home sp4 Problem: new sp4 Symptoms: have improved sp4 Condition: Stable sp4 Diagnosis - Fall on same level, unspecified sp4 - Acute fall from the group home, dementia, normal medical screening exam. sp4 Followup: sp4 - With: Private Physician - When: As needed - Reason: Discharge Instructions: - Discharge Summary Sheet sp4 - Medical Screening Exam sp4 Forms: - Patient Portal Instructions sp4 Signatures: Dispatcher [employer] EDKristen White RN RN vc1 Facundo Phan MD MD sp4
[2023-07-26 05:57] VITALS: BP 162/60; TEMP 98; O2SAT 94
--- NOTE | 2023-07-26 13:33 | RAD REPORT ---
EXAM DESCRIPTION: RAD - Elbow Left 2 View - 07/26/2023 3:28 am CLINICAL HISTORY: Female, 78 years old, PAIN TECHNIQUE: 2 views COMPARISON: None. FINDINGS: No acute fracture or dislocation. Diffuse osteopenia. No overt effusion or significant deg enerative change. Unremarkable soft tissues. IMPRESSION: No acute osseous finding of the left elbow. Electronically signed by: Chirag Peralta MD 07/26/2023 03:52 AM ASSISTANT COMMISSIONER Due to temporary technical issues with the PACS/Fluency reporting system, reports are being signed by the in house radiologists without review as a courtesy to insure prompt reporting. The interpreting radiologist is fully responsible for the content of the report.
--- NOTE | 2023-07-26 13:47 | RAD REPORT ---
EXAM DESCRIPTION: RAD - Pelvis - 07/26/2023 3:28 am CLINICAL HISTORY: Female, 78 years old, PAIN TECHNIQUE: 1 view COMPARISON: None. FINDINGS: Diffuse osteopenia, suboptimal positioning, beam underpenetration and overlying structures limit assessment. No evidence of fracture or dislocation. Degenerative change of the hips, lumbosacral spine and sacroi liac joints. Multiple vascular calcifications. IMPRESSION: Limited exam. No acute osseous finding in the pelvis. Consider CT if there is persistent clinical concern. Electronically signed by: Chirag Peralta MD 07/26/2023 03:49 AM BILLING COORDINATOR Due to temporary technical issues with the PACS/Fluency reporting system, reports are being signed by the in house radiologists without review as a courtesy to insure prompt reporting. The interpreting radiologist is fully responsible for the content of the report.
--- NOTE | 2023-07-26 14:09 | RAD REPORT ---
EXAM DESCRIPTION: RAD - Shoulder Left 2 View - 07/26/2023 3:28 am CLINICAL HISTORY: Female, 78 years old, PAIN TECHNIQUE: 2 views COMPARISON: None. FINDINGS: Exam is limited by lack of orthogonal view and diffuse osteopenia. No evidence of acute fr acture or dislocation. At least mild glenohumeral and acromioclavicular osteoarthrosis. Unremarkable soft tissues and imaged chest. IMPRESSION: No acute osseous finding of the left shoulder. Electronically signed by: Chirag Peralta MD 07/26/2023 03:50 AM WILDLIFE FORENSIC GENETICIST Due to temporary technical issues with the PACS/Fluency reporting system, reports are being signed by the in house radiologists without review as a courtesy to insure prompt reporting. The interpreting radiologist is fully responsible for the content of the report.
--- NOTE | 2023-07-27 14:43 | EKG ---
Test Date: 2023-07-26 Test Time: 02:36:11 High Pressure Kettle Operator: Kelvin MEASUREMENT RESULTS: Intervals: Rate: 76 [place]: 178 QRSD: 60 QT: 398 QTc: 447 [place]: P: 59 [place]: 178 QRS: -59 T: 64 INTERPRETIVE STATEMENTS: Sinus rhythm with premature supraventricular complexes Left axis deviation Low voltage QRS Possible Lateral infarct, age undetermined Inferior infarct, age undetermined Abnormal ECG No previous ECG available for comparison Electronically Signed On 07-27-23 14:41:08 CDL B DRIVER by Catrachito Corcoran
== END ==
LOC: ER 02:20
DX: M25.552 Pain in left hip (principal); G30.9 Alzheimer's disease, unspecified; F02.80 Dementia in other diseases classified elsewhere, unspecified severity, without behavioral disturbance, psychotic disturbance, mood disturbance, and anxiety; W18.30XA Fall on same level, unspecified, initial encounter; Y92.129 Unspecified place in nursing home as the place of occurrence of the external cause; E11.9 Type 2 diabetes mellitus without complications; Z88.0 Allergy status to penicillin
CPT/HCPCS: 72170; 82947; 93005

== ENCOUNTER 2023-12-02 04:40 | Emergency (ER) | payer OTHER ==
--- OUTSIDE RECORDS SUMMARY | 2023-12-02 04:52 | XMS REPORT | Continuity of Care Document ---
Author Name Unknown Address [address] [place] [address] [facility] Address [address] [place] [address] Care Team Providers Care Bulk Fluids Handler Name Role Phone VANESSA MC M.D. Attending Clinician DAVID Howell NP Attending Clinician Unavailable Payers Payer Name [...] Comments Source penicill amine DA Active U 4-16 00:00: 00 [facility] penicill amine DA Active U UNKNOWN 4-16 00:00: 00 [facility] Penicill ins drug allergy Active [facility] [...] traMADol HCl - 50 MG Oral Tablet 4- 00:00: 00 Yes DAVID VALDERRAMA N.P. Q0.3333D TAKE 1 TABLET 3 TIMES DAILY NEEDED. [facility] Butalbital- APAP-Caffei ne 50-325-40 MG Oral Tablet Butalbital- APAP-Caffei ne 50-325-40 MG Oral Tablet 2-28 00:00: 00 Yes VANESSA MC M.D. TAKE 1 TABLET EVERY 4 TO 6 HOURS NEEDED FOR PAIN. [facility] Mert Walker 2-06 00:00: 00 Yes VANESSA MC M.D. USE DIRECTED. [facility] Omeprazole 20 MG Oral Tablet Delayed Release Omeprazole 20 MG Oral Tablet Delayed Release 2-04 00:00: 00 Yes VANESSA MC M.D. 2 TAKE 2 TABLET Before meals [facility] metFORMIN HCl ER 500 MG Oral Tablet Extended Release 24 Hour metFORMIN HCl ER 500 MG Oral Tablet Extended Release 24 Hour 0 1-31 00:00: 00 Yes VANESSA JESUSITA M.D. QD TAKE 2 TABLETS ONCE DAILY WITH [...] r 07-09 00:00: 00 Yes VANESSA JESUSITA M.Dulce. 30 units in AM and 20 units in PM [facility] Microlet Lancets Microlet Lancets 07-09 00:00: 00 Yes VANESSA JESUSITA M.D. USE DIRECTED. 3 TIMES DAILY [facility] Contour Next Test In Vitro Strip Contour Next Test In Vitro Strip 07-09 00:00: 00 Yes VANESSA JESUSITA M.Dulce. Q0.3333D TEST 3 TIMES DAILY. [facility] Pen [place] 31G X 6 MM Pen [place] 31G X 6 MM 07-09 00:00: 00 Yes VANESSA JESUSITA M.D. USE DIRECTED WITH DAILY INJECTION [facility] Vital Signs Vital Name Observation Time Observation Value Comments S ource BP Systolic 2018-09-10 13:14:00 117 mm[Hg] Location : RUE; Position: Sitting [facility] BP Diastolic 2018-09-10 [...] Date / Time Performed Performing Clinician Source [id number] 2019-09-27 00:00:00 ACHKA [facility] [id number] 2019-09-26 00:00:00 RESAL.01 [facility] [id number] 2019-09-26 00:00:00 RESAL.01 [facility] [id number] 2019-09-26 00:00:00 POTSE [facility] [id number] 2019-09-26 00:00:00 RESAL.01 [facility] [id number] 2019-09-26 00:00:00 ACHKA [facility] [B] KNEE 3 VIEWS 2018-09-10 00:00:[address] [address] Brain [place] contrast [id number] 2018-08-09 00:00:00 [facility] [Q] URINALYSIS, COMPLETE W/RFL CULTURE (REFL) 2018-08-02 00:00:00 [facility] [QLH] CBC (INCLUDES DIFF/PLT) 2018-07-09 00:00:00 [facility] [QLH] LIPID PANEL 2018-07-09 00:00:00 [facility] [QLH] CMP W/EGFR 2018-07-09 00:00:00 [facility] [QL] TSH, 3RD GENERATION 2018-07-09 00:00:00 [facility] [QLH] MICROALBUMIN, RANDOM URINE (W/CREATININE) 2018-07-09 00:00:00 [facility] [O] Urine Dipstick (In Office) 2018-07-09 00:00:00 [facility] [QLH] CULTURE, URINE, ROUTINE 2018-07-09 00:00:00 [facility] Hysterectomy [facility] Encounters Start Date/Time End Date/Time Encounter Type Admission Type Attending Clinicians Care Facility Care Department Encounter ID Source 2019-09-26 03:37:00 Inpatient [facility] LISANDRO [id number] 51 [facility] 2018-10-09 15:30:00 2018-10-09 15:30:00 AppointVANESSA Bishop M.D. ABRAHAM, ALEYAMMA, M.D. [facility] [id number] [facility] 2018-09-10 13:00:00 2018-09-10 13:00:00 Appointmen t; DAVID VALDERRAMA, DAVID RICHTER, JIE [facility] [id number] [place] [facility] [facility] 2018-08-09 15:30:00 2018-08-09 15:30:00 Appointmen t; VANESSA MC M.D. ABRAHAM, ALEYAMMA, M.D. [facility] [id number] [place] [facility] 2018-08-07 10:30:00 2018-08-07 10:30:00 Appointmen t; VANESSA MC M.D. ABRAHAM, ALEYAMMA, M.D. [facility] [id number] [place] [facility] 2018-07-16 16:00:00 2018-07-16 16:00:00 Appointmen t; VANESSA MC M.D. ABRAHAM, ALEYAMMA, M.D. [facility] [id number] [facility] 2018-07-16 15:00:00 2018-07-16 15:00:00 Appointmen t; VANESSA MC M.D. ABRAHAM, ALEYAMMA, M.D. [facility] [id number] [place] [facility] 2018-07-09 13:15:00 2018-07-09 13:15:00 Appointmen t; VANESSA MC M.D. ABRAHAM, ALEYAMMA, M.D. [facility] [id number] [facility] Results Test Description Test Time Test Comments Results Result Co mments Source BASIC METABOLIC [id number] 07:36:00* Test Item Value Reference Range Interpretation [...] code = CA) 8.0 mg/dL 8.0-10.5 N [id number] 07:36:00* Test Item Value Reference Range Interpretation Comme nts PHOSPHOROUS (test code = PHOS) 3.1 MG/DL 2.5-4.9 N [id number] 07:36:00* Test Item Value Reference Range Interpretation Comme nts MAGNESIUM (test code = MAG) 1.60 mg/dL 1.8-2.4 L [id number] 07:32:00* Test Item Value Reference Range Interpretation Comme nts GLUBED (test code = GLUBED) 224 MG/DL 70-110 H Performed by cer tified finisher operator at [facility] CBC W/AUTO [id number] 07:06:00* Test Item Value Reference Range Interpretation [...] REQUIRED (test c ode = MDIFF) NO [id number] 19:44:00* Test Item Value Reference Range Interpretation Comme nts GLUBED (test code = GLUBED) 116 MG/DL 70-110 H Performed by cer tified finisher operator at [facility] [id number] 16:20:00* Test Item Value Reference Range Interpretation Comme nts GLUBED (test code = GLUBED) 132 MG/DL 70-110 H Performed by cer tified finisher operator at [facility] BASIC METABOLIC [id number] 12:23:00* Test Item Value Reference Range Interpretation [...] code = CA) 7.9 mg/dL 8.0-10.5 L [id number] 12:23:00* Test Item Value Reference Range Interpretation Comme nts MAGNESIUM (test code = MAG) 1.40 mg/dL 1.8-2.4 L CBC W/AUTO [id number] 11:44:00* Test Item Value Reference Range Interpretation [...] REQUIRED (test c ode = MDIFF) NO [id number] 10:37:00* Test Item Value Reference Range Interpretation Comme nts GLUBED (test code = GLUBED) 233 MG/DL 70-110 H Performed by cer tified finisher operator at [facility] [id number] 07:27:00* Test Item Value Reference Range Interpretation Comme nts GLUBED (test code = GLUBED) 130 MG/DL 70-110 H Performed by cer tified finisher operator at [facility] [id number] 20:11:00* Test Item Value Reference Range Interpretation Comme nts GLUBED (test code = GLUBED) 177 MG/DL 70-110 H Performed by cer tified finisher operator at [facility] [id number] 17:39:00* Test Item Value Reference Range Interpretation Comme nts GLUBED (test code = GLUBED) 175 MG/DL 70-110 H Performed by cer tified finisher operator at [facility] [id number] 11:52:00* Test Item Value Reference Range Interpretation Comme nts GLUBED (test code = GLUBED) 136 MG/DL 70-110 H Performed by cer tified finisher operator at [facility] CBC W/AUTO [id number] 08:16:00* Test Item Value Reference Range Interpretation [...] DIFF REQUIRED (test code = MDIFF) NO [id number] 08:11:00* Test Item Value Reference Range Interpretation Comme nts GLUBED (test code = GLUBED) 119 MG/DL 70-110 H Performed by cer tified finisher operator at [facility] BASIC METABOLIC [id number] 07:49:00* Test Item Value Reference Range Interpretation [...] code = CA) 8.0 mg/dL 8.0-10.5 N [id number] 07:49:00* Test Item Value Reference Range Interpretation Comme nts PHOSPHOROUS (test code = PHOS) 3.5 MG/DL 2.5-4.9 N [id number] 07:49:00* Test Item Value Reference Range Interpretation Comme nts MAGNESIUM (test code = MAG) 1.30 mg/dL 1.8-2.4 L [id number] 21:10:00* Test Item Value Reference Range Interpretation Comme nts GLUBED (test code = GLUBED) 234 MG/DL 70-110 H Performed by cer tified finisher operator at [facility] [id number] 17:21:00* Test Item Value Reference Range Interpretation Comme nts GLUBED (test code = GLUBED) 127 MG/DL 70-110 H Performed by cer tified finisher operator at [facility] [id number] 13:26:00* Test Item Value Reference Range Interpretation Comme nts GLUBED (test code = GLUBED) 144 MG/DL 70-110 H Performed by cer tified finisher operator at [facility] TOTAL IRON BINDING [id number] 12:02:00* Test Item Value Reference Range Interpretation Comme nts SERUM IRON (test code = IRON) 56 mcg/dL 35-150 N TOTAL IRON BINDING CAPACITY (test code = TIBC) 163 mcg/dL 260-445 L UIBC (test code = UIBC) 107 mcg/dL IRON SATURATION (test code = FESAT) 34.4 % 14-34 H [id number] 12:02:00* Test Item Value Reference Range Interpretation Comme nts FERRITIN (test code = VIKY) 182.0 ng/mL 11.0-306.8 N [id number] 08:40:00* Test Item Value Reference Range Interpretation Comme nts GLUBED (test code = GLUBED) 136 MG/DL 70-110 H Performed by cer tified finisher operator at [facility] BASIC METABOLIC [id number] 08:20:00* Test Item Value Reference Range Interpretation [...] code = CA) 7.8 mg/dL 8.0-10.5 L [id number] 08:20:00* Test Item Value Reference Range Interpretation Comme nts PHOSPHOROUS (test code = PHOS) 3.1 MG/DL 2.5-4.9 N [id number] 08:20:00* Test Item Value Reference Range Interpretation Comme nts MAGNESIUM (test code = MAG) 1.60 mg/dL 1.8-2.4 L CBC W/AUTO [id number] 07:52:00* Test Item Value Reference Range Interpretation [...] DIFF REQUIRED (test code = MDIFF) NO [id number] 07:16:00* Test Item Value Reference Range Interpretation Comme nts GLUBED (test code = GLUBED) 279 MG/DL 70-110 H Performed by cer tified finisher operator at [facility] [id number] 21:40:00* Test Item Value Reference Range Interpretation Comme nts GLUBED (test code = GLUBED) 282 MG/DL 70-110 H Performed by cer tified finisher operator at [facility] [id number] 11:28:00* Test Item Value Reference Range Interpretation Comme nts GLUBED (test code = GLUBED) 115 MG/DL 70-110 H Performed by cer tified finisher operator at [facility] [id number] 08:26:00* Test Item Value Reference Range Interpretation Comme nts GLUBED (test code = GLUBED) 117 MG/DL 70-110 H Performed by cer tified finisher operator at [facility] [id number] 20:40:00* Test Item Value Reference Range Interpretation Comme nts GLUBED (test code = GLUBED) 152 MG/DL 70-110 H Performed by cer tified finisher operator at [facility] [id number] 17:27:00* Test Item Value Reference Range Interpretation Comme nts GLUBED (test code = GLUBED) 155 MG/DL 70-110 H Performed by cer tified finisher operator at [facility] [id number] 11:29:00* Test Item Value Reference Range Interpretation Comme nts GLUBED (test code = GLUBED) 130 MG/DL 70-110 H Performed by cer tified finisher operator at [facility] Novel Coronavirus [id number] 08:16:00* Test Item Value Reference Range Interpretation Comme nts Novel Coronavirus 2019 Inhouse (test code = [id number]) Negative Negative Positive resul ts are indicative of the presence fuRBJN-NkC-7 RNA, clinical correlation with patient historyand other [...] for the identification of SARS-CoV-2 RNA usingthe Dynamo Micropower M2000 System under the FDA Emergency UseAuthorization. The testing is performed by personneltrained in the procedures for the Kenny M2000 moleculardiagnostic SARS-CoV-2 assay in vitro. Testing Criteria: Shortness of [id number] 08:07:00* Test Item Value Reference Range Interpretation Comme nts GLUBED (test code = GLUBED) 112 MG/DL 70-110 H Performed by cer tified finisher operator at [facility] [id number] 08:07:00* Test Item Value Reference Range Interpretation Comme nts GLUBED (test code = GLUBED) 112 MG/DL 70-110 H Performed by cer moe finisher operator at [facility] BASIC METABOLIC [id number] 03:35:00* Test Item Value Reference Range Interpretation [...] code = CA) 8.1 mg/dL 8.0-10.5 N [id number] 03:35:00* Test Item Value Reference Range Interpretation Comme nts PHOSPHOROUS (test code = PHOS) 3.4 MG/DL 2.5-4.9 [id number] 03:35:00* Test Item Value Reference Range Interpretation Comme nts MAGNESIUM (test code = MAG) 1.50 mg/dL 1.8-2.4 L CBC W/AUTO [id number] 03:22:00* Test Item Value Reference Range Interpretation [...] REQUIRED (test c ode = MDIFF) NO [id number] 23:52:00* Test Item Value Reference Range Interpretation Comme nts GLUBED (test code = GLUBED) 139 MG/DL 70-110 H Performed by cer tified finisher operator at [facility] [id number] 18:09:00* Test Item Value Reference Range Interpretation Comme nts GLUBED (test code = GLUBED) 174 MG/DL 70-110 H Performed by cer tified finisher operator at [facility] Coronavirus 2019 nCoV [id number] 14:38:00* Test Item Value Reference Range Interpretation Comme nts Coronavirus 2019 nCoV Bedsid e (test code = [id number]) Negative Negative Emergent procedure? YESCOMMENTS: R/O PATIENT IN CONTACT WITH POSITIVE COVID 19 THROUGH HALFWAY/Comment: PATIENT WITH COUGH AND [id number] 13:06:00* Test Item Value Reference Range Interpretation Comme nts GLUBED (test code = GLUBED) 204 MG/DL 70-110 H Performed by cer tified finisher operator at [facility] B-TYPE NATRIURETIC [id number] 11:28:00* Test Item Value Reference Range Interpretation Comme nts B-TYPE NATRIURETIC PEPTIDE ( test code = BNP) 301.5 PG/ML 0-100 H CBC W/AUTO [id number] 11:25:00* Test Item Value Reference Range Interpretation [...] (test c ode = MDIFF) YES WBC [id number] 11:25:00* Test Item Value Reference Range Interpretation [...] = PLTEST) Adequate THOUSAND ADEQUATE CBC W/AUTO [id number] 11:20:00* Test Item Value Reference Range Interpretation [...] (test c ode = MDIFF) YES WBC [id number] 11:20:00* Test Item Value Reference Range Interpretation Comme nts ANISOCYTOSIS (test code = ANISO) PLATELET ESTIMATE (test code = PLTEST) THOUSAND ADEQUATE CBC W/AUTO [id number] 11:20:00* Test Item Value Reference Range Interpretation [...] (test c ode = MDIFF) YES WBC [id number] 11:20:00* Test Item Value Reference Range Interpretation Comme nts ANISOCYTOSIS (test code = ANISO) PLATELET ESTIMATE (test code = PLTEST) THOUSAND ADEQUATE [id number] 11:12:00* Test Item Value Reference Range Interpretation Comme nts GLUBED (test code = GLUBED) 108 MG/DL 70-110 N Performed by cer gianniied finisher operator at [facility] - XR CHEST 1 [id number] 09:40:00FAX: Joel Falk [phone] [place]: St: ADM Name: [facility] [place] : 1945 Age/S:74/F [address] [place] [address] Blvd Unit #: [id number] Loc: G.4431 [place] [address] Phys: Joel Myers MD Acct: [id number] Dis Date: Status: ADM IN PHONE #: [phone] Exam Date: 10/06/2019929 FAX #: [phone] Reason: SOB,cough EXAMS: CPT CODE: [id number] XR CHEST 1 V 21612 EXAM: [facility] AP chest. EXAM DATE: 10/06/2019 at 0910 [...] the right upper quadrant. Imaged osseous structures demonstrateno acute findings. IMPRESSION: 1. Decreasing bilateral pleural effusions and bibasilar atelectasis.2. Stable pulmonary vascular congestion Electronically Signed by Blanche Johnson on10/06/2019 at 0940 Reported and signed by: Tracy Johnson M.D. CC: Joel Myers MD Technologist: RT Armando(Bonifacio) Trnkarina Date/Time/By: 10/06/2019 (09) : By: Delvis Orig Print D/T: S: 10/06/2019 (6817) PAGE 1 Signed ReportBASIC METABOLIC [id number] 08:27:00* Test Item Value Reference Range Interpretation [...] code = CA) 8.1 mg/dL 8.0-10.5 N [id number] 08:27:00* Test Item Value Reference Range Interpretation Comme nts PHOSPHOROUS (test code = PHOS) 2.5 MG/DL 2.5-4.9 N [id number] 08:27:00* Test Item Value Reference Range Interpretation Comme nts MAGNESIUM (test code = MAG) 1.80 mg/dL 1.8-2.4 N CBC W/AUTO [id number] 07:44:00* Test Item Value Reference Range Interpretation [...] DIFF REQUIRED (test c ode = MDIFF) [id number] 20:34:00* Test Item Value Reference Range Interpretation Comme nts GLUBED (test code = GLUBED) 143 MG/DL 70-110 H Performed by cer tified finisher operator at [facility] [id number] 18:17:00* Test Item Value Reference Range Interpretation Comme nts GLUBED (test code = GLUBED) 112 MG/DL 70-110 H Performed by cer tified finisher operator at [facility] [id number] 12:26:00* Test Item Value Reference Range Interpretation Comme nts GLUBED (test code = GLUBED) 168 MG/DL 70-110 H Performed by cer tified finisher operator at [facility] [id number] 09:28:00* Test Item Value Reference Range Interpretation Comme nts GLUBED (test code = GLUBED) 118 MG/DL 70-110 H Performed by cer tified finisher operator at [facility] CBC W/AUTO [id number] 09:00:00* Test Item Value Reference Range Interpretation [...] (test c ode = MDIFF) YES WBC [id number] 09:00:00* Test Item Value Reference Range Interpretation [...] code = PLTMORPH) LARGE PLATELETS CBC W/AUTO [id number] 08:55:00* Test Item Value Reference Range Interpretation [...] (test c ode = MDIFF) YES WBC [id number] 08:55:00* Test Item Value Reference Range Interpretation Comme nts ANISOCYTOSIS (test code = ANISO) PLATELET ESTIMATE (test code = PLTEST) THOUSAND ADEQUATE CBC W/AUTO [id number] 08:55:00* Test Item Value Reference Range Interpretation [...] (test c ode = MDIFF) YES WBC [id number] 08:55:00* Test Item Value Reference Range Interpretation Comme nts ANISOCYTOSIS (test code = ANISO) PLATELET ESTIMATE (test code = PLTEST) THOUSAND ADEQUATE BASIC METABOLIC [id number] 08:41:00* Test Item Value Reference Range Interpretation [...] code = CA) 8.2 mg/dL 8.0-10.5 N [id number] 08:41:00* Test Item Value Reference Range Interpretation Comme nts PHOSPHOROUS (test code = PHOS) 2.8 MG/DL 2.5-4.9 N [id number] 08:41:00* Test Item Value Reference Range Interpretation Comme nts MAGNESIUM (test code = MAG) 1.90 mg/dL 1.8-2.4 N CBC W/AUTO [id number] 07:55:00* Test Item Value Reference Range Interpretation [...] DIFF REQUIRED (test c ode = MDIFF) [id number] 21:52:00* Test Item Value Reference Range Interpretation Comme nts GLUBED (test code = GLUBED) 145 MG/DL 70-110 H Performed by cer tified finisher operator at [facility] [id number] 17:18:00* Test Item Value Reference Range Interpretation Comme nts GLUBED (test code = GLUBED) 120 MG/DL 70-110 H Performed by cer tified finisher operator at [facility] CBC W/AUTO [id number] 12:24:00* Test Item Value Reference Range Interpretation [...] (test c ode = MDIFF) NO PLT [id number] 12:24:00* Test Item Value Reference Range Interpretation Comme nts PLATELET ESTIMATE (test code = PLTEST) 112-140 THOUSAND ADEQUATE PLATELET MORPHOLOGY (test code = PLTMORPH) LARGE PLATELETS LARGE PLTS SEEN [id number] 12:20:00* Test Item Value Reference Range Interpretation Comme nts GLUBED (test code = GLUBED) 156 MG/DL 70-110 H Performed by cer tified finisher operator at [facility] BASIC METABOLIC [id number] 08:58:00* Test Item Value Reference Range Interpretation [...] code = CA) 8.1 mg/dL 8.0-10.5 N [id number] 08:58:00* Test Item Value Reference Range Interpretation Comme nts PHOSPHOROUS (test code = PHOS) 3.3 MG/DL 2.5-4.9 N [id number] 08:58:00* Test Item Value Reference Range Interpretation Comme nts MAGNESIUM (test code = MAG) 1.70 mg/dL 1.8-2.4 L CBC W/AUTO [id number] 08:09:00* Test Item Value Reference Range Interpretation [...] (test c ode = MDIFF) NO PLT [id number] 08:09:00* Test Item Value Reference Range Interpretation Comme nts PLATELET ESTIMATE (test code = PLTEST) THOUSAND ADEQUATE CBC W/AUTO [id number] 08:09:00* Test Item Value Reference Range Interpretation [...] (test c ode = MDIFF) NO PLT [id number] 08:09:00* Test Item Value Reference Range Interpretation Comme nts PLATELET ESTIMATE (test code = PLTEST) THOUSAND ADEQUATE [id number] 08:06:00* Test Item Value Reference Range Interpretation Comme nts GLUBED (test code = GLUBED) 121 MG/DL 70-110 H Performed by cer tified finisher operator at [facility] [id number] 20:33:00* Test Item Value Reference Range Interpretation Comme nts GLUBED (test code = GLUBED) 123 MG/DL 70-110 H Performed by cer tified finisher operator at [facility] [id number] 16:49:00* Test Item Value Reference Range Interpretation Comme nts GLUBED (test code = GLUBED) 123 MG/DL 70-110 H Performed by cer tified finisher operator at [facility] [id number] 11:56:00* Test Item Value Reference Range Interpretation Comme nts GLUBED (test code = GLUBED) 142 MG/DL 70-110 H Performed by cer tified finisher operator at [facility] [id number] 09:07:00* Test Item Value Reference Range Interpretation Comme nts GLUBED (test code = GLUBED) 105 MG/DL 70-110 N Performed by cer tified finisher operator at [facility] B-TYPE NATRIURETIC [id number] 08:56:00* Test Item Value Reference Range Interpretation Comme nts B-TYPE NATRIURETIC PEPTIDE ( test code = BNP) 109.1 PG/ML 0-100 H BASIC METABOLIC [id number] 08:11:00* Test Item Value Reference Range Interpretation [...] code = CA) 8.4 mg/dL 8.0-10.5 N [id number] 08:11:00* Test Item Value Reference Range Interpretation Comme nts PHOSPHOROUS (test code = PHOS) 2.8 MG/DL 2.5-4.9 N [id number] 08:11:00* Test Item Value Reference Range Interpretation Comme nts MAGNESIUM (test code = MAG) 1.70 mg/dL 1.8-2.4 L CBC W/AUTO [id number] 08:06:00* Test Item Value Reference Range Interpretation [...] REQUIRED (test c ode = MDIFF) NO [id number] 20:28:00* Test Item Value Reference Range Interpretation Comme nts GLUBED (test code = GLUBED) 99 MG/DL 70-110 N Performed by cer tified finisher operator at [facility] [id number] 17:23:00* Test Item Value Reference Range Interpretation Comme nts GLUBED (test code = GLUBED) 80 MG/DL 70-110 N Performed by cer tified finisher operator at [facility] [id number] 13:32:00* Test Item Value Reference Range Interpretation Comme nts GLUBED (test code = GLUBED) 151 MG/DL 70-110 H Performed by cer tified finisher operator at [facility] [id number] 09:59:00* Test Item Value Reference Range Interpretation Comme nts GLUBED (test code = GLUBED) 111 MG/DL 70-110 H Performed by cer tified finisher operator at [facility] BASIC METABOLIC [id number] 08:10:00* Test Item Value Reference Range Interpretation [...] code = CA) 7.9 mg/dL 8.0-10.5 L [id number] 08:10:00* Test Item Value Reference Range Interpretation Comme nts PHOSPHOROUS (test code = PHOS) 2.6 MG/DL 2.5-4.9 N [id number] 08:10:00* Test Item Value Reference Range Interpretation Comme nts MAGNESIUM (test code = MAG) 1.70 mg/dL 1.8-2.4 L CBC W/AUTO [id number] 07:41:00* Test Item Value Reference Range Interpretation [...] REQUIRED (test c ode = MDIFF) NO [id number] 07:10:00* Test Item Value Reference Range Interpretation Comme nts HAPTOGLOBIN (test code = HAPT) 173 mg/dL 42-346 Performed At: [address] [id number] Sanjai MD Ph:[phone] [id number] 22:23:00* Test Item Value Reference Range Interpretation Comme nts GLUBED (test code = GLUBED) 218 MG/DL 70-110 H Performed by cer tified finisher operator at [facility] [id number] 16:37:00* Test Item Value Reference Range Interpretation Comme nts GLUBED (test code = GLUBED) 260 MG/DL 70-110 H Performed by cer tified finisher operator at [facility] [id number] 12:17:00* Test Item Value Reference Range Interpretation Comme nts GLUBED (test code = GLUBED) 178 MG/DL 70-110 H Performed by cer tified finisher operator at [facility] [id number] 08:26:00* Test Item Value Reference Range Interpretation Comme nts GLUBED (test code = GLUBED) 178 MG/DL 70-110 H Performed by cer tified finisher operator at [facility] CBC W/AUTO [id number] 08:11:00* Test Item Value Reference Range Interpretation [...] c ode = MDIFF) NO BASIC METABOLIC [id number] 07:32:00* Test Item Value Reference Range Interpretation [...] code = CA) 8.1 mg/dL 8.0-10.5 N [id number] 07:32:00* Test Item Value Reference Range Interpretation Comme nts PHOSPHOROUS (test code = PHOS) 3.2 MG/DL 2.5-4.9 N [id number] 07:32:00* Test Item Value Reference Range Interpretation Comme nts MAGNESIUM (test code = MAG) 1.80 mg/dL 1.8-2.4 N [id number] 20:32:00* Test Item Value Reference Range Interpretation Comme nts GLUBED (test code = GLUBED) 136 MG/DL 70-110 H Performed by cer tified finisher operator at [facility] [id number] 16:35:00* Test Item Value Reference Range Interpretation Comme nts GLUBED (test code = GLUBED) 114 MG/DL 70-110 H Performed by cer tified finisher operator at [facility] [id number] 16:35:00* Test Item Value Reference Range Interpretation Comme nts GLUBED (test code = GLUBED) 114 MG/DL 70-110 H Performed by cer tified finisher operator at [facility] [id number] 11:59:00* Test Item Value Reference Range Interpretation Comme nts GLUBED (test code = GLUBED) 162 MG/DL 70-110 H Performed by cer tified finisher operator at [facility] [id number] 09:04:00* Test Item Value Reference Range Interpretation Comme nts GLUBED (test code = GLUBED) 149 MG/DL 70-110 H Performed by cer tified finisher operator at [facility] B-TYPE NATRIURETIC [id number] 09:00:00* Test Item Value Reference Range Interpretation Comme nts B-TYPE NATRIURETIC PEPTIDE ( test code = BNP) 492.2 PG/ML 0-100 H BASIC METABOLIC [id number] 09:00:00* Test Item Value Reference Range Interpretation [...] CA) 7.2 mg/dL 8.0-10.5 L HEPATIC FUNCTION [id number] 09:00:00* Test Item Value Reference Range Interpretation [...] code = ALKP) 70 IUnit/L 20-125 N [id number] 09:00:00* Test Item Value Reference Range Interpretation Comme nts PHOSPHOROUS (test code = PHOS) 3.5 MG/DL 2.5-4.9 N LACTIC DEHYDROGENASE(LDH)2019-09-30 09:00:00* Test Item Value Reference Range Interpretation Comme nts LACTIC DEHYDROGENASE(LDH) (t est code = LDH) 270 IUnits/L 84-246 H [id number] 09:00:00* Test Item Value Reference Range Interpretation Comme nts MAGNESIUM (test code = MAG) 1.90 mg/dL 1.8-2.4 N PROTHROMBIN [id number] 08:39:00* Test Item Value Reference Range Interpretation [...] Infarction (to prevent recurrent infarct). THROMBOPLASTIN TIME [id number] 08:39:00* Test Item Value Reference Range Interpretation Comme nts THROMBOPLASTIN TIME PARTIAL (test code = PTT) 28.5 Seconds 25.0-39.5 N Therapeutic Rang e: 50.4 - 88.3 Seconds Effective 09/25/2018 [id number] 08:31:00* Test Item Value Reference Range Interpretation Comme nts GLUBED (test code = GLUBED) 146 MG/DL 70-110 H Performed by cer tified finisher operator at [facility] - XR CHEST 1 [id number] 07:34:00FAX: Joel Falk [phone] [place]: St: ADM FAX: Helga Escalante NP [phone] ---- Name: MAC AGUSTIN [facility] : 1945 Age/S: 74/F [address] [place] [address] Unit #: [id number] Loc: [address] [place] [address] Phys: Helga Escalante NP Acct: [id number] Dis Date: Status: ADM IN PHONE #: Exam Date: 09/30/2019513 FAX #: [phone] Reason: PNEUMONIA EXAMS: CPT CODE: [id number] XR CHEST 1 V 73448 Chest single view 09/30/2019 HISTORY: Pneumonia Comparison is made to 09/29/2019 FINDINGS: Bilateral pleural effusions and bibasilar atelectasis/infiltrates have decreased since prior study. Mild cardiomegaly is unchanged. Aorta contains calcifications. Interstitial edema has decreased. Right jugular line has been removed. IMPRESSION: 1. Decreasing bilateral pleural effusions with decreasing bibasilar atelectasis/infiltrates. 2. Decreasing interstitial edema. 3. Removal of right jugular line. SL: [id number] at 0734 Reported and signed by: Jose Dumont M.D. CC: Joel Myers MD; Helga Escalante NP Technologist: Niurka Peña RT(R) Trnscrd Date/Time/By: 09/30/2019 (0734) : By: [email or web address] Orig Print D/T: S: 09/30/2019 (0737) PAGE 1 Signed Report- XR ABDOMEN 1V (KUB)2019-09-30 07:33:00 FAX: Joel Falk [phone] [place]: St: ADM FAX: Helga Escalante NP [phone] --- Name: MAC AGUSTIN [place] : 1945 Age/S: 74/F [address] [place] [address] Blvd Unit #: [id number] Loc: G.M[address] [place] [address] Phys: Helga Escalante NP Acct: [id number] Dis Date: Status: ADM IN PHONE #: [phone] Exam Date: 09/30/2019513 FAX #: [phone] Reason: DIARRHEA/ABDOMINAL DISTENTION EXAMS:CPT CODE: [id number] XR ABDOMEN 1V (KUB) 19557 Abdomen single view 09/30/2019 HISTORY: Diarrhea. Abdominal distention Comparison is made to CT 09/26/2019 FINDINGS: There is diffuse demineralization. Vascular calcifications in the pelvis are present. No bowel dilatation is present. Rectal gas is presen t. Surgical clips in the right upper quadrant likely represent previous cholecystectomy. IMPRESSION: Nonobstructed bowel gas pattern. SL: [id number] at 0733 Reported and signed by: Jose Dumont M.D. CC: Joel Myers MD; Helga Escalante NP Technologist: RT Inga(R) Trnscrd Date/Time/By: 09/30/2019 (0733) : By: [email or web address] Orig Print D/T: S: 09/30/2019 (0736) PAGE 1 Signed ReportCOMPREHENSIVE METABOLIC [id number] 06:15:00* Test Item Value Reference Range Interpretation [...] code = ALKP) 69 IUnit/L 20-125 N [id number] 06:15:00* Test Item Value Reference Range Interpretation Comme nts PHOSPHOROUS (test code = PHOS) 3.2 MG/DL 2.5-4.9 N [id number] 06:15:00* Test Item Value Reference Range Interpretation Comme nts MAGNESIUM (test code = MAG) 1.90 mg/dL 1.8-2.4 N CALCIUM [id number] 06:15:00* Test Item Value Reference Range Interpretation Comme nts CALCIUM IONIZED (test code = DMITRY) 1.05 MMOL/L 1.12-1.32 L LACTIC [id number] 06:06:00* Test Item Value Reference Range Interpretation Comme nts LACTIC ACID (test code = LACT) 1.3 mmol/L 0.4-1.9 N COMPREHENSIVE METABOLIC [id number] 05:58:00* Test Item Value Reference Range Interpretation [...] ( test code = ALKP) IUnit/L 20-125 [id number] 05:58:00* Test Item Value Reference Range Interpretation Comme nts PHOSPHOROUS (test code = PHOS) MG/DL 2.5-4.9 [id number] 05:58:00* Test Item Value Reference Range Interpretation Comme nts MAGNESIUM (test code = MAG) mg/dL 1.8-2.4 CALCIUM [id number] 05:58:00* Test Item Value Reference Range Interpretation Comme nts CALCIUM IONIZED (test code = DMITRY) 1.05 MMOL/L 1.12-1.32 L CBC W/AUTO [id number] 05:48:00* Test Item Value Reference Range Interpretation [...] (test code = MDIFF) NO BASIC METABOLIC [id number] 00:27:00* Test Item Value Reference Range Interpretation [...] code = CA) 7.6 mg/dL 8.0-10.5 L [id number] 00:27:00* Test Item Value Reference Range Interpretation Comme nts PHOSPHOROUS (test code = PHOS) 3.2 MG/DL 2.5-4.9 N [id number] 00:27:00* Test Item Value Reference Range Interpretation Comme nts MAGNESIUM (test code = MAG) 1.80 mg/dL 1.8-2.4 N LACTIC [id number] 17:55:00* Test Item Value Reference Range Interpretation Comme nts LACTIC ACID (test code = LACT) 1.2 mmol/L 0.4-1.9 N BASIC METABOLIC [id number] 17:54:00* Test Item Value Reference Range Interpretation [...] code = CA) 7.0 mg/dL 8.0-10.5 L [id number] 17:54:00* Test Item Value Reference Range Interpretation Comme nts PHOSPHOROUS (test code = PHOS) 2.8 MG/DL 2.5-4.9 N [id number] 17:54:00* Test Item Value Reference Range Interpretation Comme nts MAGNESIUM (test code = MAG) 2.00 mg/dL 1.8-2.4 N BASIC METABOLIC [id number] 17:48:00* Test Item Value Reference Range Interpretation [...] code = CA) 7.0 mg/dL 8.0-10.5 L [id number] 17:48:00* Test Item Value Reference Range Interpretation Comme nts PHOSPHOROUS (test code = PHOS) MG/DL 2.5-4.9 [id number] 17:48:00* Test Item Value Reference Range Interpretation Comme nts MAGNESIUM (test code = MAG) 2.00 mg/dL 1.8-2.4 N [id number] 17:15:00* Test Item Value Reference Range Interpretation Comme nts GLUBED (test code = GLUBED) 154 MG/DL 70-110 H Performed by cer tified finisher operator at [facility] [id number] 17:14:00* Test Item Value Reference Range Interpretation Comme nts GLUBED (test code = GLUBED) 143 MG/DL 70-110 H Performed by cer tified finisher operator at [facility] [id number] 17:14:00* Test Item Value Reference Range Interpretation Comme nts GLUBED (test code = GLUBED) 112 MG/DL 70-110 H Performed by cer tified finisher operator at [facility] [id number] 17:14:00* Test Item Value Reference Range Interpretation Comme nts GLUBED (test code = GLUBED) 79 MG/DL 70-110 N Performed by cer tified finisher operator at [facility] BASIC METABOLIC [id number] 12:59:00* Test Item Value Reference Range Interpretation [...] code = CA) 7.3 mg/dL 8.0-10.5 L [id number] 12:59:00* Test Item Value Reference Range Interpretation Comme nts PHOSPHOROUS (test code = PHOS) 3.1 MG/DL 2.5-4.9 [id number] 12:59:00* Test Item Value Reference Range Interpretation Comme nts MAGNESIUM (test code = MAG) 1.90 mg/dL 1.8-2.4 N LACTIC ACID [id number] 10:16:00* Test Item Value Reference Range Interpretation Comme nts LACTIC ACID REPEAT (test cod e = LACTR) 2.1 mmol/l 0.4-1.9 H - XR CHEST 1 [id number] 07:08:00FAX: Joel Falk [phone] [place]: St: ADM FAX: Marisabel Berkowitz DO [phone] ------- Name: MAC AGUSTIN [facility] : 1945 Age/S: 74/F [address] [place] [address] Unit #: [id number] Loc: G.M[address] [place] [address] Phys: Marisabel Chu DO Acct: [id number] Dis Date: Status: ADM IN PHONE #: [phone] Exam Date: 09/29/2019 0541 FAX #: [phone] Reason: SOB EXAMS: CPT CODE: [id number] XR CHEST 1 V 11629 CHEST RADIOGRAPH ONE VIEW 09/29/2019 AT 0507 HOURS. CLINICAL HISTORY: Shortness of breath. COMPARISON STUDIES: Chest one view 09/27/[address] 09/26/2019. FINDINGS: One view of the chest wasobtained. Developing moderate bilateral pleural effusions layering posteriorly with compressive atel ectasis and with increasing dense left retrocardiac opacity. [...] early consolidation. 3. Enlarged cardiac silhouette. SL: [id number] at 0708 Reported and signed by: Scott Duran M.D. CC: Joel Myers MD; Marisabel Chu DO Technologist: RT Inga(R) Trnscrd Date/Time/By: 09/29/2019 (707) : By: [email or web address] Orig Print D/T: S: 09/29/2019 (711) PAGE 1 Signed ReportB-TYPE NATRIURETIC [id number] 05:54:00* Test Item Value Reference Range Interpretation Comme nts B-TYPE NATRIURETIC PEPTIDE ( test code = BNP) 546.7 PG/ML 0-100 H HGBA1C%2019-09-29 05:31:00* Test Item Value Reference Range Interpretation Comme nts HGBA1C% (test code = HGBA1C%) 6.0 %A1C 4.8-6.0 N BASIC METABOLIC [id number] 05:30:00* Test Item Value Reference Range Interpretation [...] code = CA) 7.2 mg/dL 8.0-10.5 L [id number] 05:30:00* Test Item Value Reference Range Interpretation Comme nts PHOSPHOROUS (test code = PHOS) 1.4 MG/DL 2.5-4.9 L [id number] 05:30:00* Test Item Value Reference Range Interpretation Comme nts MAGNESIUM (test code = MAG) 2.00 mg/dL 1.8-2.4 N ACETONE [id number] 05:30:00* Test Item Value Reference Range Interpretation Comme nts ACETONE QUANT (test code = ACETN) NEGATIVE - <20mg/dL mg/dL NEG - <20 BASIC METABOLIC [id number] 05:29:00* Test Item Value Reference Range Interpretation [...] CALCIUM (test code = CA) mg/dL 8.0-10.5 [id number] 05:29:00* Test Item Value Reference Range Interpretation Comme nts PHOSPHOROUS (test code = PHOS) MG/DL 2.5-4.9 [id number] 05:29:00* Test Item Value Reference Range Interpretation Comme nts MAGNESIUM (test code = MAG) mg/dL 1.8-2.4 ACETONE [id number] 05:29:00* Test Item Value Reference Range Interpretation Comme nts ACETONE QUANT (test code = ACETN) NEGATIVE - <20mg/dL mg/dL NEG - <20 LACTIC [id number] 05:26:00* Test Item Value Reference Range Interpretation Comme nts LACTIC ACID (test code = LACT) 4.0 mmol/L 0.4-1.9 H CBC W/AUTO [id number] 05:08:00* Test Item Value Reference Range Interpretation [...] DIFF REQUIRED (test code = MDIFF) NO [id number] 01:50:00* Test Item Value Reference Range Interpretation Comme nts GLUBED (test code = GLUBED) 134 MG/DL 70-110 H Performed by cer tified finisher operator at [facility] BASIC METABOLIC [id number] 00:45:00* Test Item Value Reference Range Interpretation [...] code = CA) 7.6 mg/dL 8.0-10.5 L [id number] 00:45:00* Test Item Value Reference Range Interpretation Comme nts PHOSPHOROUS (test code = PHOS) 1.9 MG/DL 2.5-4.9 L [id number] 00:04:00* Test Item Value Reference Range Interpretation Comme nts MAGNESIUM (test code = MAG) 2.00 mg/dL 1.8-2.4 N COMMENTS: Every 6 hours until anion gap </= 12 mEq/L, then every morningGLUBED 2019-09-28 23:39:00* Test Item Value Reference Range Interpretation Comme nts GLUBED (test code = GLUBED) 138 MG/DL 70-110 H Performed by cer tified finisher operator at [facility] [id number] 21:56:00* Test Item Value Reference Range Interpretation Comme nts GLUBED (test code = GLUBED) 130 MG/DL 70-110 H Performed by cer tified finisher operator at [facility] [id number] 18:56:00* Test Item Value Reference Range Interpretation Comme nts GLUBED (test code = GLUBED) 151 MG/DL 70-110 H Performed by cer tified finisher operator at [facility] BASIC METABOLIC [id number] 18:54:00* Test Item Value Reference Range Interpretation [...] code = CA) 7.1 mg/dL 8.0-10.5 L [id number] 18:54:00* Test Item Value Reference Range Interpretation Comme nts PHOSPHOROUS (test code = PHOS) 2.2 MG/DL 2.5-4.9 L [id number] 18:54:00* Test Item Value Reference Range Interpretation Comme nts MAGNESIUM (test code = MAG) 2.10 mg/dL 1.8-2.4 N [id number] 18:39:00* Test Item Value Reference Range Interpretation Comme nts GLUBED (test code = GLUBED) 152 MG/DL 70-110 H Performed by cer tified finisher operator at [facility] [id number] 18:39:00* Test Item Value Reference Range Interpretation Comme nts GLUBED (test code = GLUBED) 123 MG/DL 70-110 H Performed by cer tified finisher operator at [facility] [id number] 18:39:00* Test Item Value Reference Range Interpretation Comme nts GLUBED (test code = GLUBED) 138 MG/DL 70-110 H Performed by cer tified finisher operator at [facility] [id number] 13:20:00* Test Item Value Reference Range Interpretation Comme nts MAGNESIUM (test code = MAG) 2.30 mg/dL 1.8-2.4 N COMMENTS: Every 6 hours until anion gap </= 12 mEq/L, then every morningARTERIAL BLOOD [id number] 11:48:00* Test Item Value Reference Range Interpretation [...] ARTERIAL (test code = TCO2A) 15 URINALYSIS [id number] 11:44:00* Test Item Value Reference Range Interpretation [...] AMORU) 1+ /HPF NONE A BASIC METABOLIC [id number] 11:32:00* Test Item Value Reference Range Interpretation [...] = CA) 7.4 mg/dL 8.0-10.5 L ACETONE [id number] 11:32:00* Test Item Value Reference Range Interpretation Comme nts ACETONE QUANT (test code = ACETN) Large - 80-100 mg/dL mg/dL NEG - <20 LACTIC [id number] 11:31:00* Test Item Value Reference Range Interpretation Comme nts LACTIC ACID (test code = LACT) 1.3 mmol/L 0.4-1.9 N BASIC METABOLIC [id number] 11:29:00* Test Item Value Reference Range Interpretation [...] = CA) 7.4 mg/dL 8.0-10.5 L ACETONE [id number] 11:29:00* Test Item Value Reference Range Interpretation Comme nts ACETONE QUANT (test code = ACETN) Large - 80-100 mg/dL mg/dL NEG - <20 BASIC METABOLIC [id number] 11:21:00* Test Item Value Reference Range Interpretation [...] (test code = CA) mg/dL 8.0-10.5 ACETONE [id number] 11:21:00* Test Item Value Reference Range Interpretation Comme nts ACETONE QUANT (test code = ACETN) Large - 80-100 mg/dL mg/dL NEG - <20 [id number] 07:57:00* Test Item Value Reference Range Interpretation Comme nts GLUBED (test code = GLUBED) 169 MG/DL 70-110 H Performed by cer tified finisher operator at [facility] CBC W/AUTO [id number] 05:24:00* Test Item Value Reference Range Interpretation [...] REQUIRED (test code = MDIFF) NO PLT [id number] 05:24:00* Test Item Value Reference Range Interpretation Comme nts PLATELET ESTIMATE (test code = PLTEST) 80-100 THOUSAND ADEQUATE PLATELET MORPHOLOGY (test code = PLTMORPH) LARGE PLATELETS LACTIC [id number] 05:20:00* Test Item Value Reference Range Interpretation Comme nts LACTIC ACID (test code = LACT) 1.2 mmol/L 0.4-1.9 N BASIC METABOLIC [id number] 05:20:00* Test Item Value Reference Range Interpretation [...] code = CA) 7.4 mg/dL 8.0-10.5 L [id number] 05:20:00* Test Item Value Reference Range Interpretation Comme nts PHOSPHOROUS (test code = PHOS) 2.9 MG/DL 2.5-4.9 N [id number] 05:20:00* Test Item Value Reference Range Interpretation Comme nts MAGNESIUM (test code = MAG) 2.30 mg/dL 1.8-2.4 [id number] 05:20:00* Test Item Value Reference Range Interpretation Comme nts VANCOMYCIN (test code = VANCO) 12.8 mcg/mL CBC W/AUTO [id number] 05:01:00* Test Item Value Reference Range Interpretation [...] REQUIRED (test code = MDIFF) NO PLT [id number] 05:01:00* Test Item Value Reference Range Interpretation Comme nts PLATELET ESTIMATE (test code = PLTEST) THOUSAND ADEQUATE CBC W/AUTO [id number] 05:01:00* Test Item Value Reference Range Interpretation [...] REQUIRED (test code = MDIFF) NO PLT [id number] 05:01:00* Test Item Value Reference Range Interpretation Comme nts PLATELET ESTIMATE (test code = PLTEST) THOUSAND ADEQUATE LACTIC ACID [id number] 18:47:00* Test Item Value Reference Range Interpretation Comme nts LACTIC ACID REPEAT (test cod e = LACTR) 1.6 mmol/l 0.4-1.9 N [id number] 18:16:00* Test Item Value Reference Range Interpretation Comme nts GLUBED (test code = GLUBED) 129 MG/DL 70-110 H Performed by cer tified finisher operator at [facility] B-TYPE NATRIURETIC [id number] 16:58:00* Test Item Value Reference Range Interpretation Comme nts B-TYPE NATRIURETIC PEPTIDE ( test code = BNP) 1269.2 PG/ML 0-100 H LACTIC [id number] 15:47:00* Test Item Value Reference Range Interpretation Comme nts LACTIC ACID (test code = LACT) 2.4 mmol/L 0.4-1.9 H BASIC METABOLIC [id number] 15:44:00* Test Item Value Reference Range Interpretation [...] code = CA) 7.1 mg/dL 8.0-10.5 L [id number] 15:44:00* Test Item Value Reference Range Interpretation Comme nts PHOSPHOROUS (test code = PHOS) 2.6 MG/DL 2.5-4.9 [id number] 15:44:00* Test Item Value Reference Range Interpretation Comme nts MAGNESIUM (test code = MAG) 1.60 mg/dL 1.8-2.4 L CBC W/AUTO [id number] 15:26:00* Test Item Value Reference Range Interpretation [...] DIFF REQUIRED (test code = MDIFF) NO [id number] 12:23:00* Test Item Value Reference Range Interpretation Comme nts GLUBED (test code = GLUBED) 158 MG/DL 70-110 H Performed by cer tified finisher operator at [facility] CBC W/AUTO [id number] 10:37:00* Test Item Value Reference Range Interpretation [...] REQUIRED (test code = MDIFF) YES WBC [id number] 10:37:00* Test Item Value Reference Range Interpretation [...] LARGE PLATELETS LARGE PLTS SEEN CBC W/AUTO [id number] 10:26:00* Test Item Value Reference Range Interpretation [...] REQUIRED (test code = MDIFF) YES WBC [id number] 10:26:00* Test Item Value Reference Range Interpretation Comme nts ANISOCYTOSIS (test code = ANISO) PLATELET ESTIMATE (test code = PLTEST) THOUSAND ADEQUATE CBC W/AUTO [id number] 10:26:00* Test Item Value Reference Range Interpretation [...] REQUIRED (test code = MDIFF) YES WBC [id number] 10:26:00* Test Item Value Reference Range Interpretation Comme nts ANISOCYTOSIS (test code = ANISO) PLATELET ESTIMATE (test code = PLTEST) THOUSAND ADEQUATE ARTERIAL BLOOD [id number] 09:58:00* Test Item Value Reference Range Interpretation [...] (test code = TCO2A) 20 LACTIC ACID [id number] 09:46:00* Test Item Value Reference Range Interpretation Comme nts LACTIC ACID REPEAT (test cod e = LACTR) 2.0 mmol/l 0.4-1.9 H ACUTE HEPATITIS [id number] 08:08:00* Test Item Value Reference Range Interpretation [...] COMMENTS: At start of hemodialysisAB HEPATITIS B [id number] 08:08:00* Test Item Value Reference Range Interpretation Comme nts AB HEPATITIS B SURFACE (test code = HBSAB) 688.1 mIU/mL Immunity>9.9 Status of Immuni ty Anti-HBs Level Incons istent with Immunity 0.0 - 9.9Consistent with Immunity >9.9Performed At: HD [facility] [address] [id number] Matty Dye MD Ph:[phone] COMMENTS: At start of ohoedmtyxayeMDSUDC8627-87-93 08:07:00* Test Item Value Reference Range Interpretation Comme nts GLUBED (test code = GLUBED) 191 MG/DL 70-110 H Performed by cer tified finisher operator at [facility] [id number] 08:07:00* Test Item Value Reference Range Interpretation Comme nts GLUBED (test code = GLUBED) > 600 MG/DL 70-110 H Performed by cer tified finisher operator at [facility] - XR CHEST 1 [id number] 07:52:00FAX: Rabia Castro MD [phone] [place]: St: ADM FAX: Joel Falk [phone] Name: MAC AGUSTIN [facility] : 1945 Age/S: 74/F [address] [place] [address] Unit #: [id number] Loc: G.M317 [place] [address] Phys: Rabia Aguilar MD Acct: [id number] Dis Date: Status: ADM IN PHONE #: Exam Date: 09/27/2019 0748 FAX #: [phone] Reason: Hypoxemia EXAMS: CPT CODE: [id number] XR CHEST 1 V 47305 Study: - XR CHEST 1 V 09/27/2019 7:19 AM Patient Name: MAC AGUSTIN MR: [id number] : 1945; Age: 74 years y/o Female Ordering Physician: Rabia Aguilar MD Clinical Indication: Hypoxemia Comparison: September 26, 2019 x-ray FINDINGS LUNGS: The hypoinflated lungs are clear of consolidation, pleural effusion, and pneumothorax. HEART AND MEDIASTINUM: Normal size heart. LINES: The life support lines and tubes appear unchanged. OSSEOUS STRUCTURES: Mild spinal degenerative change without fracture, dislocation, or focal osseous lesion. OTHER: None. IMPRESSION: No acute abnormality as above discussed. SL: [id number] Electronically Signed by Blanche Alvarenga on09/27/2019 at 0752 Reported and signed by: Gian Alvarenga M.D. CC: Rabia Aguilar MD; Joel Myers MD Technologist: RT Martin(Bonifacio) Trnscrd Date/Time/By: 09/27/2019 (0752) : By: [email or web address] Orig Print D/T: S: 09/27/2019 (0756) PAGE [...] code = CA) 6.7 mg/dL 8.0-10.5 L [id number] 07:33:00* Test Item Value Reference Range Interpretation Comme nts PHOSPHOROUS (test code = PHOS) 3.9 MG/DL 2.5-4.9 [id number] 07:33:00* Test Item Value Reference Range Interpretation Comme nts MAGNESIUM (test code = MAG) 2.50 mg/dL 1.8-2.4 H CALCIUM [id number] 07:33:00* Test Item Value Reference Range Interpretation Comme nts CALCIUM IONIZED (test code = DMITRY) 0.99 MMOL/L 1.12-1.32 L BASIC METABOLIC [id number] 07:25:00* Test Item Value Reference Range Interpretation [...] CALCIUM (test code = CA) mg/dL 8.0-10.5 [id number] 07:25:00* Test Item Value Reference Range Interpretation Comme nts PHOSPHOROUS (test code = PHOS) MG/DL 2.5-4.9 [id number] 07:25:00* Test Item Value Reference Range Interpretation Comme nts MAGNESIUM (test code = MAG) mg/dL 1.8-2.4 CALCIUM [id number] 07:25:00* Test Item Value Reference Range Interpretation Comme nts CALCIUM IONIZED (test code = DMITRY) 0.99 MMOL/L 1.12-1.32 L LACTIC [id number] 07:14:00* Test Item Value Reference Range Interpretation Comme nts LACTIC ACID (test code = LACT) 3.5 mmol/L 0.4-1.9 H CBC W/AUTO [id number] 06:52:00* Test Item Value Reference Range Interpretation [...] MANUAL DIFF REQUIRED (test code = MDIFF) [id number] 05:55:00* Test Item Value Reference Range Interpretation Comme nts GLUBED (test code = GLUBED) 146 MG/DL 70-110 H Performed by cer tified finisher operator at [facility] BASIC METABOLIC [id number] 03:07:00* Test Item Value Reference Range Interpretation [...] code = CA) 6.9 mg/dL 8.0-10.5 L [id number] 03:07:00* Test Item Value Reference Range Interpretation Comme [facility] PHOSPHOROUS (test code = PHOS) 2.3 MG/DL 2.5-4.9 L [id number] 03:07:00* Test Item Value Reference Range Interpretation Comme [facility] MAGNESIUM (test code = MAG) 2.50 mg/dL 1.8-2.4 H CALCIUM [id number] 03:07:00* Test Item Value Reference Range Interpretation Comme [facility] CALCIUM IONIZED (test code = DMITRY) 0.96 MMOL/L 1.12-1.32 L ARTERIAL BLOOD [id number] 02:42:00* Test Item Value Reference Range Interpretation Comme [facility] ARTERIAL BLOOD GAS PH (test code = [...] (test code = TCO2A) 16 CBC W/AUTO [id number] 02:24:00* Test Item Value Reference Range Interpretation Comme [facility] WHITE BLOOD CELL (test code = WBC) [...] ED, CONSISTENT WITH AUTO DIFF. BASIC METABOLIC [id number] 02:14:00* Test Item Value Reference Range Interpretation [...] CALCIUM (test code = CA) mg/dL 8.0-10.5 [id number] 02:14:00* Test Item Value Reference Range Interpretation Comme nts PHOSPHOROUS (test code = PHOS) MG/DL 2.5-4.9 [id number] 02:14:00* Test Item Value Reference Range Interpretation Comme nts MAGNESIUM (test code = MAG) mg/dL 1.8-2.4 CALCIUM [id number] 02:14:00* Test Item Value Reference Range Interpretation Comme nts CALCIUM IONIZED (test code = DMITRY) 0.96 MMOL/L 1.12-1.32 L LACTIC ACID 2ND [id number] 02:01:00* Test Item Value Reference Range Interpretation Comme nts LACTIC ACID 2ND REPEAT (test code = LACT2) 6.2 mmol/L 0.4-1.9 HH CBC W/AUTO [id number] 01:51:00* Test Item Value Reference Range Interpretation [...] MANUAL DIFF REQUIRED (test code = MDIFF) [id number] 00:42:00* Test Item Value Reference Range Interpretation Comme nts GLUBED (test code = GLUBED) 117 MG/DL 70-110 H Performed by cer tified finisher operator at [facility] LIPOPROTEIN [id number] 23:01:00* Test Item Value Reference Range Interpretation Comme nts LIPOPROTEIN LDL (test code = LDL) 67 mg/dL 0-100 N <100 [id number] 0-129 NEAR OPTIMAL/ABOVE [id number] HXQOOMEJWS186-186 HIGH>MZ=491 VERY HIGH*Guidelines provided by the National Cholesterol EducationProgram Adult Treatment Panel III BASIC METABOLIC [id number] 22:46:00* Test Item Value Reference Range Interpretation [...] code = CA) 7.0 mg/dL 8.0-10.5 L [id number] 22:46:00* Test Item Value Reference Range Interpretation Comme nts PHOSPHOROUS (test code = PHOS) 1.6 MG/DL 2.5-4.9 L [id number] 22:46:00* Test Item Value Reference Range Interpretation Comme nts MAGNESIUM (test code = MAG) 2.40 mg/dL 1.8-2.4 [id number] 22:46:00* Test Item Value Reference Range Interpretation Comme nts TROPONIN-I (test code = TROPI) 0.284 ng/mL 0.000-0.045 Negative: <= 0.0 45 Positive: >= 0.046 Correlation with serial results, other cardiac markers andclinical findings is necessary to determine the clinicalsignificance of this result. Results using different methodologies should not be comparedto one another as quantitative results may vary by method. LACTIC ACID [id number] 22:44:00* Test Item Value Reference Range Interpretation Comme nts LACTIC ACID REPEAT (test cod e = LACTR) 7.8 mmol/l 0.4-1.9 HH CALCIUM [id number] 22:38:00* Test Item Value Reference Range Interpretation Comme nts CALCIUM IONIZED (test code = DMITRY) 0.96 MMOL/L 1.12-1.32 L [id number] 18:50:00* Test Item Value Reference Range Interpretation Comme nts GLUBED (test code = GLUBED) 126 MG/DL 70-110 H Performed by cer tified finisher operator at [facility] LACTIC [id number] 17:54:00* Test Item Value Reference Range Interpretation Comme nts LACTIC ACID (test code = LACT) 9.2 mmol/L 0.4-1.9 HH BASIC METABOLIC [id number] 17:54:00* Test Item Value Reference Range Interpretation [...] code = CA) 7.6 mg/dL 8.0-10.5 L [id number] 17:54:00* Test Item Value Reference Range Interpretation Comme nts PHOSPHOROUS (test code = PHOS) 1.2 MG/DL 2.5-4.9 L [id number] 17:54:00* Test Item Value Reference Range Interpretation Comme nts MAGNESIUM (test code = MAG) 1.50 mg/dL 1.8-2.4 L CALCIUM [id number] 17:54:00* Test Item Value Reference Range Interpretation Comme nts CALCIUM IONIZED (test code = DMITRY) 0.98 MMOL/L 1.12-1.32 L BASIC METABOLIC [id number] 17:39:00* Test Item Value Reference Range Interpretation [...] CALCIUM (test code = CA) mg/dL 8.0-10.5 [id number] 17:39:00* Test Item Value Reference Range Interpretation Comme nts PHOSPHOROUS (test code = PHOS) MG/DL 2.5-4.9 [id number] 17:39:00* Test Item Value Reference Range Interpretation Comme nts MAGNESIUM (test code = MAG) mg/dL 1.8-2.4 CALCIUM [id number] 17:39:00* Test Item Value Reference Range Interpretation Comme nts CALCIUM IONIZED (test code = DMITRY) 0.98 MMOL/L 1.12-1.32 L CBC W/AUTO [id number] 17:38:00* Test Item Value Reference Range Interpretation [...] (test code = MDIFF) NO ARTERIAL BLOOD [id number] 17:34:00* Test Item Value Reference Range Interpretation [...] (test code = TCO2A) 26 ARTERIAL BLOOD [id number] 15:12:00* Test Item Value Reference Range Interpretation [...] (test code = TCO2A) 20 VENOUS BLOOD [id number] 15:04:00* Test Item Value Reference Range Interpretation [...] (test code = TCO2V) 20 ACUTE HEPATITIS [id number] 12:54:00* Test Item Value Reference Range Interpretation [...] COMMENTS: At start of hemodialysisAB HEPATITIS B [id number] 12:54:00* Test Item Value Reference Range Interpretation Comme nts AB HEPATITIS B SURFACE (test code = HBSAB) COMMENTS: At start of hemodialysis- XR CHEST 1 [id number] 12:49:00FAX: Joel Falk [phone] [place]: St: ADM FAX: Mick Lin [phone] --- Name: MAC AGUSTIN [facility] [place] : 1945 Age/S: 74/F [address] [place] [address] Unit #: [id number] Loc: [address] [place] [address] Phys: Mick Lin MD Acct: [id number] Dis Date: Status: ADM IN PHONE #: Exam Date: 09/26/2019 1233 FAX #: [phone] Reason: CONFIRM LINE PLACEMENT OF RIGHT IJ EXAMS: CPT CODE: [id number] XR CHEST 1 V 78457 EXAM: Single view AP chest. EXAM DATE: 09/26/2019 os1380 hours CLINICAL HISTORY: CONFIRM LINE PLACEMENT OF RIGHT IJ COMPARISON: September 26, 2019 at 0527 hours Dual-chamber right-sided IJ catheter tip is in the region of the superior vena cava just abovethe level of the right atrium. Heart size [...] atrium. No acute cardiopulmonary findings identified. at 0844 Reported and signed by: Tracy Johnson M.D. CC: Joel Myers MD; Mick Lin MD Technologist: RT Viji(R) Trnscrd Date/Time/By: 09/26/2019 (8073) : By: Delvis Booker Print D/T: S: 09/26/2019 (0991) PAGE 1 Signed ReportACUTE HEPATITIS [id number] 12:22:00 * Test Item Value Reference Range Interpretation Comme nts AB HEPATITIS A IGM (test code = HAVMAB) INDEX NON REACT. AG HEPATITIS B SURFACE (test code = HBSAG) NON REACTIVE INDEX NonReactive AB HEPATITIS B CORE IGM (test code = HBCMAB) INDEX NON REACT. AB HEPATITIS C (test code = HCVAB) INDEX NON REACT. COMMENTS: At start of hemodialysisAB HEPATITIS B [id number] 12:22:00* Test Item Value Reference Range Interpretation Comme nts AB HEPATITIS B SURFACE (test code = HBSAB) COMMENTS: At start of hemodialysisACUTE HEPATITIS [id number] 12:22:00* Test Item Value Reference Range Interpretation Comme nts AB HEPATITIS A IGM (test code = HAVMAB) INDEX NON REACT. AG HEPATITIS B SURFACE (test code = HBSAG) NON REACTIVE INDEX NonReactive AB HEPATITIS B CORE IGM (test code = HBCMAB) INDEX NON REACT. AB HEPATITIS C (test code = HCVAB) INDEX NON REACT. COMMENTS: At start of hemodialysisAB HEPATITIS B [id number] 12:22:00* Test Item Value Reference Range Interpretation Comme nts AB HEPATITIS B SURFACE (test code = HBSAB) COMMENTS: At start of hemodialysisCOMPREHENSIVE METABOLIC [id number] 11:44:00* Test Item Value Reference Range Interpretation [...] code = ALKP) 52 IUnit/L 20-125 N [id number] 11:44:00* Test Item Value Reference Range Interpretation Comme nts PHOSPHOROUS (test code = PHOS) 9.2 MG/DL 2.5-4.9 [id number] 11:44:00* Test Item Value Reference Range Interpretation Comme nts MAGNESIUM (test code = MAG) 2.90 mg/dL 1.8-2.4 H CALCIUM [id number] 11:44:00* Test Item Value Reference Range Interpretation Comme nts CALCIUM IONIZED (test code = DMITRY) 1.07 MMOL/L 1.12-1.32 L LACTIC ACID 2ND [id number] 11:23:00* Test Item Value Reference Range Interpretation Comme nts LACTIC ACID 2ND REPEAT (test code = LACT2) 21.3 mmol/L 0.4-1.9 COMPREHENSIVE METABOLIC [id number] 10:59:00* Test Item Value Reference Range Interpretation [...] code = ALKP) 52 IUnit/L 20-125 N [id number] 10:59:00* Test Item Value Reference Range Interpretation Comme nts PHOSPHOROUS (test code = PHOS) MG/DL 2.5-4.9 [id number] 10:59:00* Test Item Value Reference Range Interpretation Comme nts MAGNESIUM (test code = MAG) 2.90 mg/dL 1.8-2.4 H CALCIUM [id number] 10:59:00* Test Item Value Reference Range Interpretation Comme nts CALCIUM IONIZED (test code = DMITRY) 1.07 MMOL/L 1.12-1.32 L COMPREHENSIVE METABOLIC [id number] 10:59:00* Test Item Value Reference Range Interpretation [...] code = ALKP) 52 IUnit/L 20-125 N [id number] 10:59:00* Test Item Value Reference Range Interpretation Comme nts PHOSPHOROUS (test code = PHOS) MG/DL 2.5-4.9 [id number] 10:59:00* Test Item Value Reference Range Interpretation Comme nts MAGNESIUM (test code = MAG) 2.90 mg/dL 1.8-2.4 H CALCIUM [id number] 10:59:00* Test Item Value Reference Range Interpretation Comme nts CALCIUM IONIZED (test code = DMITRY) 1.07 MMOL/L 1.12-1.32 L COMPREHENSIVE METABOLIC [id number] 10:50:00* Test Item Value Reference Range Interpretation [...] code = ALKP) 52 IUnit/L 20-125 N [id number] 10:50:00* Test Item Value Reference Range Interpretation Comme nts PHOSPHOROUS (test code = PHOS) MG/DL 2.5-4.9 [id number] 10:50:00* Test Item Value Reference Range Interpretation Comme nts MAGNESIUM (test code = MAG) 2.90 mg/dL 1.8-2.4 H CALCIUM [id number] 10:50:00* Test Item Value Reference Range Interpretation Comme nts CALCIUM IONIZED (test code = DMITRY) MMOL/L 1.12-1.32 COMPREHENSIVE METABOLIC [id number] 10:46:00* Test Item Value Reference Range Interpretation [...] ( test code = ALKP) IUnit/L 20-125 [id number] 10:46:00* Test Item Value Reference Range Interpretation Comme nts PHOSPHOROUS (test code = PHOS) MG/DL 2.5-4.9 [id number] 10:46:00* Test Item Value Reference Range Interpretation Comme nts MAGNESIUM (test code = MAG) mg/dL 1.8-2.4 CALCIUM [id number] 10:46:00* Test Item Value Reference Range Interpretation Comme nts CALCIUM IONIZED (test code = DMITRY) MMOL/L 1.12-1.32 CBC W/AUTO [id number] 10:19:00* Test Item Value Reference Range Interpretation [...] (test code = MDIFF) NO ARTERIAL BLOOD [id number] 09:53:00* Test Item Value Reference Range Interpretation [...] ARTERIAL (test code = TCO2A) < 5 [id number] 08:39:00* Test Item Value Reference Range Interpretation [...] 3 troponins total (including troponin done in ED)[id number] 07:39:00* Test Item Value Reference Range Interpretation Comme nts GLUBED (test code = GLUBED) 107 MG/DL 70-110 N Performed by cer tified finisher operator at [facility] LACTIC ACID [id number] 07:06:00* Test Item Value Reference Range Interpretation Comme nts LACTIC ACID REPEAT (test cod e = LACTR) 19.1 mmol/l 0.4-1.9 - CT ABD PELVIS W/O [id number] 06:29:00Name: MAC AGUSTIN [facility] [place] : 1945 Age/S: 74 / F [address] [place] [address] Blvd Unit #:[id number] Loc: [place] [address] Phys: Facundo Phan MD Acct: [id number] Dis Date: Status: REG ER PHONE #: [phone] Exam Date: 09/26/2019 0546 FAX #: [phone] Reason: POSSIBLE PNEUMOPERITONEUM EXAMS: CPT CODE: [id number] CT ABD PELVIS W/O CONT 71572 STUDY: - CT CHEST W/O CONTRAST, - CTABD PELVIS W/O CONT 09/26/2019 4:27 AM Ordering Physician: Facundo Phan MD Patient Name: MAC AGUSTIN MR: [id number] : 1947; Age: 72 years y/o Female Clinical Indication: Dehydration.POSSIBLE PNEUMOPERITONEUM Comparison: None TECHNIQUE: Multiple contiguous transaxial noncontrast CTimages were obtained through the chest, abdomen, and [...] Mildly hyperinflated but clear lungs associated with m ild subsegmental atelectasis and scarring in the lung bases. No consolidation, pleural effusion, orpneumothorax. Small calcified granuloma in the right lung [...] PAGE 1 Signed Report (CONTINUED) Name: MAC AGUSTINlear Chevy : 1945 Age/S: 74 / F [address] Unit #: [id number] Loc: [place] [address] Phys: Facundo Phan MD Acct: [id number] Dis Date: Status: REG ER PHONE #: [phone] Exam Date: 09/26/2019 0546 FAX #: [phone] Reason: POSSIBLE PNEUMOPERITONEUM EXAMS: CPT CODE: [id number] CT ABD PELVIS W/O CONT 51588 (Continued) lymphadenopathy or mass. SOFT TISSUES: Mild [...] be related to nonspecific gastritis or neoplasm. PERITONEUMAND MESENTERY: Free Air: No evidence of pneumoperitoneum. Free Fluid: No evidence of significant free fluid, loculated fluid, peripherally enhancing abscess, or hemorrhage. Mesenteric and peritoneal fat: Mild diffuse hazy induration of the peritoneal fat without specific site of localization. LYMPHNODES: Scattered small nonspecific central mesenteric and retroperitoneal lymph nodes. 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 IVC: Normal caliber nonenhanced. ABDOMINAL ORGANS: Liver: Normal size and morphology without discrete lesion. PAGE 2 Signed Report (CONTINUED) Name: MAC AGUSTIN [facility] [place] : 1945 Age/S: 74 / F [address] [place] [address] BlvdUnit #: [id number] Loc: [place], [place] [address] Phys: Facundo Phan MD Acct: [id number] Dis Date: Status: REG ER PHONE #: [phone] Exam Date: 09/26/201946 FAX #: [phone] Reason: POSSIBLE PNEUMOPERITONEUM EXAMS: CPT CODE: [id number] CT ABD PELVIS W/O CONT 74469 (Continued) Gallbladder: Pos toperative change of cholecystectomy. Biliary Tree: Mildly prominent intrahepatic and extrahepatic bile ducts likely physiological in nature status post cholecystectomy. Kidneys: Normal size nonenhanced right kidney without nephrolithiasis, ureterolithiasis, hydronephrosis, or focal lesion. Small v ascular calcifications are seen centrally in the right [...] 3 Signed Report (CONTINUED) Name: MAC AGUSTIN [facility] [place] : 1945 Age/S: 74 / F [address] [place] [address] Unit #: [id number] Loc: [place] [address] Phys: Facundo Phan MD Acct: [id number] Dis Date: Status: REG ER PHONE #: [phone] Exam Date: 09/26/2019 0546 FAX #: [phone] Reason: POSSIBLE PNEUMOPERITONEUM EXAMS: CPT CODE: [id number] CT ABD PELVIS W/O CONT 39629 (Continued) Mild sigmoid diverticulosis. Moderately dilated stomach [...] urinary bladder may represent recent catheterization or coldfistula with bowel. Mild diffuse anasarca. Normal size heart associated with moderate coronary artery calcifications. Mild hyperinflation associated with subsegmental atelectasis and scarring in bothlungs greatest in the lung bases. 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 Mild soft tissue gas in the right anterior abdominal and pelvic wall likely related to recent medication injection. Postoperative change of cholecystectomy. SL: [facility] at 0629 Reported and signed by: Amadeo Edward M.D. PAGE 4 Signed Report (CONTINUED)Name: MAC AGUSTIN [facility] [place] : 1945 Age/S: 74 / F [address] [place] [address] Unit #:[id number] Loc: [place] [address] Phys: Facundo Phan MD Acct: [id number] Dis Date: Status: REG ER PHONE #: [phone] Exam Date: 09/26/2019 0546 FAX #: [phone] Reason: POSSIBLE PNEUMOPERITONEUM EXAMS: CPT CODE: [id number] CT ABD PELVIS W/O CONT 95764 (Continued) CC: Facundo Phan MD Technologist:Kait Mckeon, (R) CTDI: DLP: Trnscb Date/Time: 09/26/2019 (628) [email or web address] Orig Print D/T: S: 09/26/2019 (0632) PAGE 5 Signed Report- CT CHEST W/O [id number] 06:29:00Name: MAC AGUSTIN [facility] [place] : 1945 Age/S: 74 / F [address] [place], [place] [address]vd Unit #:[id number] Loc: [place] [address] Phys: Facundo Phan MD Acct: [id number] Dis Date: Status: REG ER PHONE #: [phone] Exam Date: 09/26/2019 0546 FAX #: [phone] Reason: POSSIBLE PNEUMOPERITONEUM EXAMS: CPT CODE: [id number] CT CHEST W/O CONTRAST 20946 STUDY: - CT CHEST W/O CONTRAST, - CT ABD PELVIS W/O CONT 09/26/2019 4:27 AM Ordering Physician: Facundo Phan MD Patient Name: MAC AGUSTIN MR: [id number] : 1947; Age: 72 years y/o Female Clinical Indication: Dehydration. POSSIBLE PNEUMOPERITONEUM Comparison: None TECHNIQUE: Multiple contiguous transaxial noncontrast CT images were obtained through the chest, abdomen, and pelvis. Sagittal and coronal reformatted images were prepared. CT imaging performed at this location utilizes radiation dose optimization techniqu es which include one or more of the following: -Automated exposure control - Adjustment of the mA and/or kV according to patient size -Use of iterative reconstruction technique CT Radiation Dose DLP: 538.32 mGy-cm CT CHEST WITHOUT CONTRAST: LUNGS: Mildly hyperinflated but clear lungs associated withmild subsegmental atelectasis and scarring in the lung bases. No consolidation, pleural effusion, or pneumothorax. Small calcified granuloma in the right lung base. Mild pleural/parenchymal scarring in the lung apices. AIRWAY: Clear central tracheobronchial tree. HEART: Normal size heart associatedwith moderate coronary artery calcifications and prominent pericardial fat. THORACIC AORTA: Normal caliber nonenhanced thoracic aorta associated with mild calcified plaque. PULMONARY ARTERIES: Nonopacified. MEDIASTINUM AND ERIKA: Slightly heterogeneous thyroid without discrete lesion. Scattered subcentimeter mediastinal lymph nodes without PAGE 1 Signed Report (CONTINUED) Name: MAC AGUSTIN [facility] Crescencio Reece : 1945 Age/S: 74 / F [address] [place], [place] [address]vd Unit #: [id number] Loc: [place] [address] Phys: Facundo Phan MD Acct: [id number] Dis Date: Status: REG ER PHONE #: [phone] Exam Date: 09/26/201946 FAX #: [phone] Reason: POSSIBLE PNEUMOPERITONEUM EXAMS: CPT CODE:[id number] CT CHEST W/O CONTRAST 14904 (Continued) lymphadenopathy or mass. SOFT TISSUES: Mild [...] sigmoid diverticulosis. APPENDIX: The appendix is not identi fied with certainty, but no pericecal inflammation is [...] 2 Signed Report (CONTINUED) Name: MAC AGUSTIN [facility] : 1945 Age/S: 74 / F [address] [place] [address] Unit #: [id number] Loc: [place] [address] Phys: Facundo Phan MD Acct: [id number] Dis Date: Status: REG ER PHONE #: [phone] Exam Date: 09/26/2019545 FAX #: [phone] Reason: POSSIBLE PNEUMOPERITONEUM EXAMS: CPT CODE: [id number] CT CHEST W/O CONTRAST 78686 (Continued) Gallbladder: Pos toperative change of cholecystectomy. Biliary Tree: Mildly prominent intrahepatic and extrahepatic bile ducts likely physiological in nature status post cholecystectomy. Kidneys: Normal size nonenhanced right kidney without nephrolithiasis, ureterolithiasis, hydronephrosis, or focal lesion. Small va scular calcifications are seen centrally in the right [...] 3 Signed Report (CONTINUED) Name: MAC AGUSTIN [facility] : 1945 Age/S: 74 / F [address] [place] [address] Unit #: [id number] Loc: [place] [address] Phys: Facundo Phan MD Acct: [id number] Dis Date: Status: REG ER PHONE #: [phone] Exam Date: 09/26/2019 0546 FAX #: [phone] Reason: POSSIBLE PNEUMOPERITONEUM EXAMS: CPT CODE: [id number] CT CHEST W/O CO NTRAST 24489 (Continued) Mild sigmoid diverticulosis. Moderately dilated stomach [...] TPAINTER-H at 0629 Reported and signed by: Amaedo Edward M.D. PAGE 4 Signed Report (CONTINUED) [facility] 1945 Age/S: 74 / F [address] [place] [address] Unit #: [id number] Loc: [place] [address] Phys: Facundo Phan MD Acct: [id number] Dis Date: Status: REG ER PHONE #: [phone] Exam Date: 09/26/201946 FAX #: [phone] Reason: POSSIBLE PNEUMOPERITONEUM EXAMS: CPT CODE: [id number] CT CHEST W/O CONTRAST 19451 (Continued) CC: Facundo Phan MD Technologist:RT Randy(R) CTDI: DLP: Trnscb Date/Time: 09/26/2019 (628) [email or web address] Orig Print D/T: S: 09/26/2019 (0632) PAGE 5 Signed Report- CT HEAD/BRAIN W/O [id number] 06:09:00Name: NIKOLEMAC A [facility] : 1945 Age/S: 74 / F [address] [place] [address] Unit #: [id number] Loc: [place] [address] Phys: Facundo Phan MD Acct: [id number] Dis Date: Status: REG ER PHONE #: [phone] Exam Date: 09/26/2019 0546 FAX #: [phone] Reason: ALTERED MENTAL STATUS, EXAMS: CPT CODE: [id number] CT HEAD/BRAIN W/O CONT 81279 STUDY: - CT HEAD/BRAIN W/O CONT 09/26/2019 5:23 AM Ordering Physician: Facundo Phan MD Patient Name: MAC AGUTSIN MR: [id number] : 1947; Age: 72 years y/o Female [...] 1 Signed Report (CONTINUED) Name: MAC AGUSTIN [facility] : 1945 Age/S: 74 / F [address] [place] [address] Unit #: [id number] Loc: [place] [address] Phys: Facundo Phan MD Acct: [id number] Dis Date: Status: REG ER PHONE #: [phone] Exam Date: 09/26/2019 0546 FAX #: [phone] Reason: ALTERED MENTAL STATUS, EXAMS: CPT CODE: [id number] CTHEAD/BRAIN W/O CONT 11192 (Continued) remaining paranasal sinuses are clear. MASTOIDS: [...] (608) [email or web address] Orig Print D/T: S: 09/26/2019 (611) PAGE 2 Signed Report- CT C-SPINE W/O [id number] 06:04:00Name: MAC AGUSTIN Jaki [facility] : 1945 Age/S: 74 / F [address] [place] [address] Unit #:[id number] Loc: [place] [address] Phys: Facundo Phan MD Acct: [id number] Dis Date: Status: REG ER PHONE #: [phone] Exam Date: 09/26/2019 0546 FAX #: [phone] Reason: ALTERED MENTAL STATUS EXAMS: CPT CODE: [id number] CT C-SPINE W/O CONT 58302 STUDY: - CT C-SPINE W/O CONT 09/26/2019 5:23 AM Ordering Physician: Facundo Phan MD Patient Name: MAC AGUSTIN MR: [id number] : 1947; Age: 72 years y/o Female Clinical Indication: ALTERED MENTAL STATUS Comparison: None Technique: Multiple contiguous noncontrast CT images were obtained through the cervical spine. Coronal andsagittal reconstructions were prepared. CT imaging performed at [...] grade 1 anterolisthesis of C5 on C6 appearsdegenerative in nature. No acute fracture, dislocation, or [...] apices are clear. PAGE 1 Signed Report (CONTIN UED) Name: MAC AGUSTIN [facility] : 1945 Age/S: 74 / F [address] [place] [address] Unit #: [id number] Loc: [place] [address] Phys: Facundo Phan MD Acct: [id number] Dis Date: Status: REG ER PHONE #: [phone] Exam Date: 09/26/2019 0546 FAX #: [phone] Reason: ALTERED MENT AL STATUS EXAMS: CPT CODE: [id number] CT C-SPINE W/O CONT 55736 (Continued) Mastoids: Mild partial opacification of the mastoid air cells bilaterally. IMPRESSION: Mild cervical spondylosis and facet arthrosis without acute fracture or dislocation. Mild chronic bilateral mastoiditis. SL: TPAINTER-H at 0604 Reported and signed by: Amadeo Edward M.D. CC: Facundo Phan MD Technologist:Kait Mckeon RT(R) CTDI: DLP: Trnscb Date/Time: 09/26/2019 (603) [email or web address] Orig Print D/T: S: 09/26/2019 (0607) PAGE 2 Signed Report- XR CHEST 1 [id number] 05:43:00FAX: Facundo Rivas MD [phone] [place]: St: REG Name: [facility] [place] : 1947 Age/S: 72/F [address] [place] [address] Unit #: [id number] Loc: [place] [address] Phys: Facundo Phan MD Acct: [id number] Dis Date: Status: REG ER PHONE #: [phone] Exam Date: 09/26/2019 0532 FAX#: [phone] Reason: ALTERED MENTAL STATUS EXAMS: CPT CODE: [id number] XR CHEST 1 V 07086 Study:- XR CHEST 1 V 09/26/2019 5:23 AM Patient Name: MAC AGUSTIN MR: [id number] : 1947; Age:72 years y/o Female Ordering Physician: Facundo Phan MD Clinical Indication: ALTERED MENTAL STATUS Comparison: 09/26/2019 at 0400 hours FINDINGS LUNGS: Mildly hypoinflated but clear lungs withoutconsolidation, pleural effusion, or pneumothorax. A skinfold is [...] 1 Signed Report (CONTINUED) FAX:Facundo Rivas MD [phone] [place]: St: REG Name: MAC AGUSTIN [facility] : 1947 Age/S: 72/F[address] Unit #: [id number] Loc: [place] [address] Phys: Facundo Phan MD Acct: [id number] Dis Date: Status: REG ER PHONE #: [phone] Exam Date: 09/26/2019 0532 FAX #: [phone] Reason: ALTERED MENTAL STATUS EXAMS: CPT CODE: [id number] XR CHEST 1 V 79844 (Continued) CC: Facundo Phan MD Technologist: RT Oliverio(R) Trnscrd Date/Time/By: 09/26/2019 (0543) : By: [email or web address] Orig Print D/T: S: 09/26/2019 (0546) PAGE 2 Signed ReportARTERIAL BLOOD [id number] 04:53:00* Test Item Value Reference Range Interpretation Comme [facility] ARTERIAL BLOOD GAS PH (test code = [...] = CABRERA) Room Air Performed by certified finisher operator at [facility] ABG TEMPERATURE (test code = TEMPA) 91.7 F ABG SITE (test code = SITEA) R Rad TCO2 ARTERIAL (test code = TCO2A) < 5 B-TYPE NATRIURETIC [id number] 04:31:00* Test Item Value Reference Range Interpretation Comme nts B-TYPE NATRIURETIC PEPTIDE ( test code = BNP) 304.2 PG/ML 0-100 H UA RFLX MICR CULT IF [id number] 04:27:00* Test Item Value Reference Range Interpretation [...] LACT) 14.8 mmol/L 0.4-1.9 HH BASIC METABOLIC [id number] 04:23:00* Test Item Value Reference Range Interpretation [...] CA) 5.6 mg/dL 8.0-10.5 LL HEPATIC FUNCTION [id number] 04:23:00* Test Item Value Reference Range Interpretation [...] code = ALKP) 39 IUnit/L 20-125 N [id number] 04:23:00* Test Item Value Reference Range Interpretation Comme nts LIPASE (test code = LIP) 139 IUnit/L 73-393 N [id number] 04:23:00* Test Item Value Reference Range Interpretation Comme nts MAGNESIUM (test code = MAG) 0.90 mg/dL 1.8-2.4 LL TSH REFLEX TO [id number] 04:23:00* Test Item Value Reference Range Interpretation Comme nts TSH REFLEX TO FT4 (test code = TSHREFLEX) 0.68 IU/mL 0.42-5.47 N [id number] 04:23:00* Test Item Value Reference Range Interpretation Comme nts TROPONIN-I (test code = TROPI) 0.029 ng/mL 0.000-0.045 N Negative: <= 0.0 45 Positive: >= 0.046 Correlation with serial results, other cardiac markers andclinical findings is necessary to determine the clinicalsignificance of this result. Results using different methodologies should not be comparedto one another as quantitative results may vary by method. CBC W/AUTO [id number] 04:22:00* Test Item Value Reference Range Interpretation [...] REQUIRED (test code = MDIFF) YES WBC [id number] 04:22:00* Test Item Value Reference Range Interpretation [...] code = PLTMORPH) LARGE PLATELETS CBC W/AUTO [id number] 04:19:00* Test Item Value Reference Range Interpretation [...] REQUIRED (test code = MDIFF) YES WBC [id number] 04:19:00* Test Item Value Reference Range Interpretation Comme nts ANISOCYTOSIS (test code = ANISO) PLATELET ESTIMATE (test code = PLTEST) THOUSAND ADEQUATE BASIC METABOLIC [id number] 04:19:00* Test Item Value Reference Range Interpretation [...] CA) 5.6 mg/dL 8.0-10.5 LL HEPATIC FUNCTION [id number] 04:19:00* Test Item Value Reference Range Interpretation [...] code = ALKP) 39 IUnit/L 20-125 N [id number] 04:19:00* Test Item Value Reference Range Interpretation Comme nts LIPASE (test code = LIP) 139 IUnit/L 73-393 N [id number] 04:19:00* Test Item Value Reference Range Interpretation Comme nts MAGNESIUM (test code = MAG) 0.90 mg/dL 1.8-2.4 LL TSH REFLEX TO [id number] 04:19:00* Test Item Value Reference Range Interpretation Comme nts TSH REFLEX TO FT4 (test code = TSHREFLEX) IU/mL 0.42-5.47 [id number] 04:19:00* Test Item Value Reference Range Interpretation Comme nts TROPONIN-I (test code = TROPI) 0.029 ng/mL 0.000-0.045 N Negative: <= 0.0 45 Positive: >= 0.046 Correlation with serial results, other cardiac markers andclinical findings is necessary to determine the clinicalsignificance of this result. Results using different methodologies should not be comparedto one another as quantitative results may vary by method. CBC W/AUTO [id number] 04:19:00* Test Item Value Reference Range Interpretation [...] REQUIRED (test code = MDIFF) YES WBC [id number] 04:19:00* Test Item Value Reference Range Interpretation Comme nts ANISOCYTOSIS (test code = ANISO) PLATELET ESTIMATE (test code = PLTEST) THOUSAND ADEQUATE - XR CHEST 1 [id number] 04:10:00FAX: Facundo Rivas MD [phone] [place]: St: PRE Name: MAC AGUSTIN [facility] : 1947 Age/S: 72/F [address] [place] [address] Unit #: [id number] Loc: [address] [address] Phys: Siva Phan Acct: [id number] Dis Date: Status: PRE ER PHONE #: [phone] Exam Date: 09/26/2019 0405 FAX #: [phone] Reason: SOB EXAMS: CPT CODE: [id number] XR CHEST 1 V 36201 Study: - XR CHEST 1 V 09/26/2019 3:41 AM Patient Name: MAC AGUSTIN MR: [id number] : 1947; Age: 72 years y/o Female Ordering Physician: Facundo Phan MD Clinical Indication: Shortness of breath. Comparison: None FINDINGS LUNGS: The hyperinflated lungs are clear consolidation, pleural effusion, and pneumothorax. Right paratracheal opacity likely represents the innominate vessels. HEART AND MEDIASTINUM: Normal size heart. LINES: None. OSSEOUS STRUCTURES: No fracture, dislocation, or suspicious focal osseous lesion. OTHER: Mildly dilated gas- filled stomach suspected beneath the left hemidiaphragm. Cholecystectomy clips in the right upper abdominal quadrant. IMPRESSION: Mildly hyperinflated, but clear lungs. Lucency beneath the left hemidiaphragm likely related to a mildly dilated gas-filled stomach. An upright view of the abdomen would be confirmatory and better exclude pneumoperitoneum. SL: TPAINTER-H at 0410 Reported andsigned by: Amadeo Edward M.D. PAGE 1 Signed Report (CONTINUED) FAX: Facundo Rivas MD [phone] [place]: St: PRE --- Name: [facility] [place] : 1947 Age/S: 72/F [address] [place] [address] Unit #: [id number] Loc: [address] [address] Phys: Facundo Phan MD Acct: [id number] Dis Date: Status: PRE ER PHONE #: [phone] Exam Date: 09/26/2019 0405 FAX #: [phone] Reason: SOB EXAMS: CPT CODE: [id number] XR CHEST 1 V 73163 (Continued) CC: Facundo Phan MD Technologist: Joselito RT(R) Trnscrd Date/Time/By: 09/26/2019 (0410) : By: [email or web address] Orig Print D/T: S: 09/26/2019 (0411) PAGE 2 Signed ReportPROTHROMBIN [id number] 04:09:00* Test Item Value Reference Range Interpretation [...] Infarction (to prevent recurrent infarct). THROMBOPLASTIN TIME [id number] 04:09:00* Test Item Value Reference Range Interpretation Comme nts THROMBOPLASTIN TIME PARTIAL (test code = PTT) 22.2 Seconds 25.0-39.5 L Therapeutic Rang e: 50.4 - 88.3 Seconds Effective 09/25/2018 [id number] 04:00:00* Test Item Value Reference Range Interpretation Comme nts GLUBED (test code = GLUBED) 147 MG/DL 70-110 H Performed by cer moe finisher operator at [facility] CBC W/AUTO [id number] 04:00:00* Test Item Value Reference Range Interpretation [...] DIFF REQUIRED (test code = MDIFF) BLOOD [id number] 07:52:00* Test Item Value Reference Range Interpretation Comme nts Report Text (test code = Report Text) [facility] 2018-11-12 846 Report Text7 (test code = Report Text7) BLOOD CULTURES HELD FOR 5 DAYS BEFORE FINAL Report Text8 (test code = Report Text8) Report Text9 (test code = Report Text9) [employer] SUGGESTS THAT Report Text10 (test code = Report Text10) MOST CASES OF BACTEREMIA ARE DETECTED BY USING Report Text11 (test code = Report Text11) THREE SETS OF SEPARATELY COLLECTED BLOOD CULTURES. Report Text12 (test code = Report Text12) [facility] 2018-11-12 847 Report Text13 (test code = Report Text13) [...] Report Text18 (test code = Report Text18) [facility] 2018-11-12 848 Report Text19 (test code = Report Text19) DRAWN FROM RIGHT ANTICUBITAL VEIN Report Text20 (test code = Report Text20) Report Text21 (test code = Report Text21) [facility] 2018-11-13 626 Report Text22 (test code = Report Text22) NO GROWTH WITHIN 1 DAY Report Text23 (test code = Report Text23) PRELIMINARY REPORT Report Text24 (test code = Report Text24) Report Text25 (test code = Report Text25) [facility] 2018-11-14 905 Report Text26 (test code = Report Text26) NO GROWTH WITHIN 2 DAYS Report Text27 (test code = Report Text27) PRELIMINARY REPORT Report Text28 (test code = Report Text28) Report Text29 (test code = Report Text29) [facility] 2018-11-17 752 Report Text30 (test code = Report Text30) NO GROWTH WITHIN 5 DAYS Report Text31 (test code = Report Text31) FINAL REPORT BLOOD [id number] 07:52:00* Test Item Value Reference Range Interpretation Comme nts Report Text (test code = Report Text) [facility] 2018-11-12 847 Report Text7 (test code = Report Text7) BLOOD CULTURES HELD FOR 5 DAYS BEFORE FINAL Report Text8 (test code = Report Text8) Report Text9 (test code = Report Text9) [employer] SUGGESTS THAT Report Text10 (test code = Report Text10) MOST CASES OF BACTEREMIA ARE DETECTED BY USING Report Text11 (test code = Report Text11) THREE SETS OF SEPARATELY COLLECTED BLOOD CULTURES. Report Text12 (test code = Report Text12) [facility] 2018-11-12 848 Report Text13 (test code [...] Report Text18 (test code = Report Text18) [facility] 2018-11-12 849 Report Text19 (test code = Report Text19) COLLECTION SITE UNSPECIFIED Report Text20 (test code = Report Text20) [facility] 2018-11-13 626 Report Text21 (test code = Report Text21) NO GROWTH WITHIN 1 DAY Report Text22 (test code = Report Text22) PRELIMINARY REPORT Report Text23 (test code = Report Text23) Report Text24 (test code = Report Text24) [facility] 2018-11-14 905 Report Text25 (test code = Report Text25) NO GROWTH WITHIN 2 DAYS Report Text26 (test code = Report Text26) PRELIMINARY REPORT Report Text27 (test code = Report Text27) Report Text28 (test code = Report Text28) [facility] 2018-11-17 752 Report Text29 (test code = Report Text29) NO GROWTH WITHIN 5 DAYS Report Text30 (test code = Report Text30) FINAL REPORT HEPATITIS C ANTIBODY [id number] 08:35:00* Test Item Value Reference Range Interpretation [...] are prelimenary and confirmation results will follow. [id number] 08:29:00* Test Item Value Reference Range Interpretation [...] (test code = CRYSTYPE) URIC ACID INFLUENZA [id number] 08:21:00* Test Item Value Reference Range Interpretation Comme nts FLU A (test code = FLU A) NEGATIVE NEGATIVE FLU B (test code = FLU B) NEGATIVE NEGATIVE FLU INTERNAL POSITIVE CNTRL (test code = FLU IPC) PASS PASS INFLUENZA LOT # (test code = FLULOT) [id number] INFLUENZA EXPIRATION DATE (t est code = FLUEXP) 11-09-2020 ABDOMEN 2 [id number] 07:48:[address] [id number] IMAGING REPORTPatient Name: MAC HALL ADate of Service: [id number]: 73 Sex: F Order #: [id number] [facility] [address] [place] [address] X-Ray Number: [id number] Record Number: [id number] Hospital Number: [id number] Physician: Roseanne ORTIZ Physician: ASHLEY SALAS 2 [...] 7:46 AMLegally authenticated by LISA Simms 2018-11-12 07:46:[id number] 07:38:00* Test Item Value Reference Range Interpretation [...] (test code = NEUT) 5.8 K/UL 1.2-7.2 [id number] 07:20:00* Test Item Value Reference Range Interpretation Comme nts LIPASE (test code = LIPA) 358 U/L 23-300 H LIVER [id number] 07:20:00* Test Item Value Reference Range Interpretation [...] = ALT) 26 U/L 13-69 ISTAT CHEM [id number] 06:45:00* Test Item Value Reference Range Interpretation [...] code = ISTANGAP) 18 MMOL/L WHOLE BLOOD [id number] 21:25:00* Test Item Value Reference Range Interpretation Comme [facility] WHOLE BLOOD GLUCOSE (test co de = POC GLU) 178 MG/DL 70-99 [id number] 20:13:00* Test Item Value Reference Range Interpretation Comme [facility] WBC (test code = WBC) 17.8 K/UL [...] code = NEUT) 15.7 K/UL 1.2-7.2 H [id number] 19:51:00* Test Item Value Reference Range Interpretation [...] (test code = UAMICRO) NO WHOLE BLOOD [id number] 19:40:00* Test Item Value Reference Range Interpretation Comme nts WHOLE BLOOD GLUCOSE (test co de = POC GLU) 253 MG/DL 70-99 H ISTAT CHEM [id number] 18:15:00* Test Item Value Reference Range Interpretation [...] = ISTANGAP) 17 MMOL/L CT HEAD W/O [id number] 18:14:[address] [id number] IMAGING REPORTPatient Name: MAC HALL ADate of Service: [id number]: 73 Sex: F Order #: [id number] Room: [facility]: 1945 X-Ray Number: [id number] Record Number: [id number] Hospital Number: [id number] Physician: KIMBERLY HIGGINS TANOrdering Physician: IHSAN SALAS [...] by EDER Craft 2018-10-20 18:12:33CHEST 1 VIEW [id number] 18:00:[address] [address]QUNSOPLBAZ IMAGING REPORTPatient Name: Jd HALL of Service: [id number]: 73 Sex: F Order #: [id number] Room: [facility]: 1945 X-Ray Number: [id number] Record Number: [id number] Hospital Number: [id number] Physician: KIMBERLY HIGGINS TANOrdering Physician: Blanca SALAS.10/20/2018 [...] NEGATIVE A BILIRUBIN; Normal (test code = 32749-4) NEGATIVE NEGATIVE N KETONES; Normal (test code = 41652-3) NEGATIVE NEGATIVE N OCCULT BLOOD; Normal (test c ode = 08592-4) NEGATIVE NEGATIVE N PROTEIN; Normal (test code = 86923-3) NEGATIVE NEGATIVE N NITRITE (test code = NITRITE) NEGATIVE NEGATIVE N LEUKOCYTE ESTERASE (test cod e = LEUKOCYTE ESTERASE) NEGATIVE NEGATIVE N WBC; Normal (test code = 6690-2) 0-5 < OR = 5 N RBC; Normal (test code = 789-8) NONE SEEN < OR = 2 N SQUAMOUS EPITHELIAL CELLS; N ormal (test code = 44883-4) NONE SEEN < OR = 5 N BACTERIA; Normal (test code = 630-4) NONE SEEN NONE SEEN N HYALINE CAST; Normal (test c ode = 47587-4) NONE SEEN NONE SEEN N [facility][Q] REFLEXIVE URINE [id number] 15:24:00* Test Item Value Reference Range Interpretation Comme nts REFLEXIVE URINE CULTURE (test code = REFLEXIVE URINE CULTURE) NO CULTURE INDICATED [facility][O] Urine Dipstick (In Office)2018-07-09 16:23:00* Test Item Value Reference Range Interpretation Comme nts Glucose (test code = Glucose) 1000 LEUKOCYTES (test code = LEUKOCYTES) negative NITRITE (test code = 48961-2) negative UROBILINOGEN (test code = 82279-9) 0.2 PROTEIN (test code = 59757-7) negative pH (test code = pH) 5.0 URINE BLOOD (test code = 57958-4) trace SPECIFIC GRAVITY (test code = 2965-2) 1.020 KETONES (test code = 72967-7) 40 BILIRUBIN (test code = 16462-7) negative [facility]] TSH, 3RD [id number] 14:55:00* Test Item Value Reference Range Interpretation Comme nts TSH; Normal (test code = 67975-6) 1.49 {MIU/L} 0.40-4.50 N [facility]] CULTURE, URINE, [id number] 14:55:00* Test Item Value Reference Range Interpretation Comme nts CULTURE (test code = CULTURE) See Comment A CULTURE, URINE, ROUTINE MICRO NUMBER: [id number] TEST STATUS: FINAL SPECIMEN SOURCE: URINE SPECIMEN [...] are considered colonizers. No further testing performed. [facility]] LIPID [id number] 14:55:00* Test Item Value Reference Range Interpretation Comme nts CHOLESTEROL, TOTAL; Above High Threshold (test code = 2093-3) 298 mg/dl <200 HDL CHOLESTEROL; Below Low Threshold (test code = 2085-9) 48 mg/dl >50 TRIGLYCERIDES; Above High Threshold (test code = 2571-8) 350 mg/dl <150 LDL-CHOLESTEROL; Above High Threshold (test code = 80011-3) 191 {MG/DL JENNIFER} LDL-C levels > or = 190 mg/dL may indicate familial hypercholesterolemia (FH). Clinical assessment and measurement of blood lipid levels should be considered for all first degree relatives of patients with an FH diagnosis. For questions about testing for familialhypercholesterolem ia, please call [facility] at 1.190.Scrap Connection.INFO.Fanta T, et al. J National Lipid Association Recommendations for Patient-Centered Management of Dyslipidemia: Part 1 Journal of Clinical Lipidology 2015;9(2), 129-169.Reference range: <100 Desirable range <100 mg/dL for primary prevention; <70 mg/dL for patients with CHD or diabetic patients with > or = 2 CHD risk factors. LDL-C is now calculated using the Ronni-Jamal calculation, which is a validated novel method providing better accuracy than the Friedewald equation in the estimation of LDL-C. Ronni YAN et al. VANESSA. 2013;310(19): 2743-0168 (http://education.[employer]/faq/MWF643) CHOL/HDLC RATIO (test code = CHOL/HDLC RATIO) [...] <70 mg/dL) is considered a therapeutic option. [facility]] MICROALBUMIN, RANDOM URINE (W/CREATININE)2018-07-09 14:55:00 * Test [...] a patient to bewithin a diagnostic category. [facility][QL] CMP [id number] 14:55:00* Test Item Value Reference Range Interpretation [...] is approximately 13% higher for peopleidentified as -Northern Irish. eGFR NON- (test code = eGFR NON-) [...] N BILIRUBIN, TOTAL; Normal (test code = 67964-0) 0.5 mg/dl 0.2-1.2 N ALKALINE PHSPHATASE (test code = ALKALINE PHSPHATASE) 76 u/l 33-130 N AST; Normal (test code = 1916-6) 13 u/l 10-35 N ALT; Normal (test code = 1742-6) 23 u/l 6-29 N [facility]] CBC (INCLUDES DIFF/PLT)2018-07-09 14:55:00* Test Item Value Reference Range Interpretation Comme nts WHITE BLOOD CELL COUNT (test code = WHITE BLOOD CELL COUNT) 10.0 {Thousand/u} 3.8-10.8 N RED BLOOD CELL COUNT (test code = RED BLOOD CELL COUNT) 5.42 {Million/uL} 3.80-5.10 HEMAGLOBIN; Above High Threshold (test code = 57372-7) 16.0 g/dl 11.7-15.5 HEMATOCRIT; Above High Threshold (test code = 4544-3) 48.4 % 35.0-45.0 MCV; Normal (test code = 787-2) 89.3 fL 80.0-100.0 N MCHC; Normal (test code = 76430-6) 33.1 g/dl 32.0-36.0 N RDW; Normal (test code = 788-0) 13.0 % 11.0-15.0 N PLATELET COUNT; Normal (test code = 777-3) 334 {Thousand/u} 140-400 N MPV; Normal (test code = 24793-9) 11.9 fL 7.5-12.5 N ABSOLUTE NEUTROPHILS (test code = ABSOLUTE NEUTROPHILS) 5740 {cells/uL} 1722-2787 N ABSOLUTE LYMPHOCYTES (test code = ABSOLUTE [...] % N MONOCYTES; Normal (test code = 98806-0) 7.0 % N EOSINOPHILS; Normal (test code = 36567-3) 2.2 % N BASOPHILS; Normal (test code = 18836-3) 1.0 % N [facility][O] Hemoglobin A1c (in office)2018-07-09 13:38:00* Test Item Value Reference Range Interpretation Comme nts HEMOGLOBIN A1c (test code = 4548-4) 12.5 [facility]] CULTURE, URINE, [id number] 00:00:00* Test Item Value Reference Range Interpretation Comme nts CULTURE (test code = CULTURE) See Comment A CULTURE, URINE, ROUTINE MICRO NUMBER: [id number] TEST STATUS: FINAL SPECIMEN SOURCE: URINE SPECIMEN [...] are considered colonizers. No further testing performed. [facility] Notes Date/Time Note Provider Source 2019-10-12 11:01:00 [id number] S4uCfJ8wEo/Pbmua6 R4e0obBnsltPeq5KVCbpvhX54W9623-20-57V21:01:00 [facility] ([facility])Hospitalist Discharge SummaryREPORT#:[id number] REPORT STATUS: SignedDATE:10/12/19 TIME: 110 PATIENT: MAC AGUSTIN UNIT #: [id number]#: [id number] [address] [birth year] AGE: 74 SEX: F ATTEND: Joel Myers [facility] AUTHOR: Nickie Ha MD * ALL edits or amendments must be made on the electronic/computer document * PCP PCPPCP:PCP: No Primary or Family Physician Discharge to: assisted General InformationProblem List/A P: 1. Acute renal [...] was found to have abnormal labs at [facility], sent to ED forevaluation. In the ED, [...] and SSI- replace electrolytes- heparin for DVT prophylaxsis/17Improved lactic acidosis with dialysis. Given improvement, likely [...] in stomach with possible neoplasm.Check labs in am4Anion gap closed, off insulin dripElevated lactate, monitorCXR [...] in gastric wall once improvedCheck labs in am420Off insulin dripCXR reviewedCont lasixWBC count came down to 10.5On zosynTransfer to the floordw RN, [employer], consultantsCXR and telemetry personally reviewedFurther recs per clinical slsjes1710/01/2019- blood sugars stable on D10W. will switch [...] volume overload- off antibiotics- continue Megace- on Kepvcnk8110/05/2019- follow creatinine. continue IVF for now- Heparing for VTE- renal following- d/w patient's nurse.- calorie kemvrseg87/26/2020- patient very short of breath. suspicious for volume overload- will stop IVF- give 1 dose of lasix- check CXR and BNP- continue Megace- BP more stable on Midodrine- continue to mobilize- heparin for VTE- daughter voiced concern about patient's exposure to COVID at the facility she came from. Will test for COVID-- Rapid COVID and PCR test negative- transfer out [address]- replete K+ and Mg+- off IV fluids.- renal function lkwxzkaio98/28/2020- pt reports feeling ok today, but is refusing all nursing care and refuses lab draw today- blood sugars adequately controlled for now, continue to hold metformin- appetite improved, monitor blood sugars closely, may need to start SSI as patient starts to eat more- nephrology following, continue to monitor renal function, HD per nephrology- d/c planning: reutrn to SNF when medically mxijxs7410/09/2019- cooperative with care today, feeling OK- blood [...] renal service following- replete lytes- back to SNF/ND once renal function stabilizestotal time spent with evaluating patient/data as well as providing education/counselling to patient was more than 35 minutes 5/2stable for discharge back to SNF medications reviewed and reconciled stop metformin due to above Cr stable 2.2 follow up [facility] nephrology.>30 min, 36 min. Med Rec Med [...] PhysicianAttending Physician: Attending Physician: Joel Myers MD Jdjjbzxogr provider 1: Provider 1: Rabia Aguilar MD Specialty: NEPHROLOGY Htknhshczq provider 2: Provider 2: Israel Vaughan MD Ethsnohpbr provider 3: Provider 3: Esau Reid MD Saafpimrsj provider 4: Provider 4: Ty Diaz MD Objective GeneralVS/I O:Vital Signs: Date Time Temp Pulse Resp B/P B/P Pulse O2 O2 Flow FiO2 Mean Ox Delivery Rate 10/11 1051 36.5 66 14 116/69 84.8 86 Room air 10/11 0714 36.8 58 14 103/59 73.5 99 Room air / 0415 36.7 73 16 99/63 75.1 95 [...] (bLE +1), no clubbing, no cyanosisMusculoskeletal: normal inspectionNeuro/NETSUITE DEVELOPER: no motor deficitsSkin: no rashLymphatics: neck normalPsychiatry: [...] 1.60 L 1.40 L Laboratory Tests 10/11 05 0530 1130 Hematology WBC (4.5 - 11.0 [...] (Auto) (14.0 - 32.0 %) 22.9 17.1 [place] % (Auto) (4.8 - 9.0 %) 8.9 7.4 Eos % (Auto) (0.3 - 3.7 %) 0.8 0.9 Baso % (Auto) (0.0 - 2.0 %) 0.8 0.7 Neut # (Auto) (2.0 - 7.6 x10 3/uL) 5.51 7.21 Lymph # (Auto) (1.0 - 3.8 x10 3/uL) 1.91 1.68 [place] # (Auto) (0.1 - 0.8 x10 3/uL) [...] current med profile rev'd at 1103 RPT #:[id number] OF REPORTDSDischarge ucqeidr7923-61-93K32:01:00G.SFSZ17418428-8324LNWuapegwxu for patient dzdhEEPSLDTISWHGYD8844-25-02R96:03:27 [facility] 2019-10-12 06:39:00 NYwriumenax21911451TNJbyaYGMVyT0ltIH/qVe xqDmPyA9XLi97jl6R cDhKkLEVrR7/RiAKcseBOCzsCi4829-31-64D00:39:00 [facility] ([facility])Nephrology Progress NoteREPORT#:[id number] REPORT STATUS: SignedDATE:10/12/19 TIME: 06 PATIENT: MAC AGUSTIN UNIT #: [id number]#: [id number] [address] [birth year] AGE: 74 SEX: F ATTEND: Joel Myers [facility] AUTHOR: Rabia Aguilar MD * ALL edits [...] expansionAbdomen: softGenitourinary: no foleyExtremities: no edemaMusculoskeletal: normal inspectionNeuro/NETSUITE DEVELOPER: altered mental statusSkin: dry ResultsFindings/Data:Laboratory Tests 10/10 [...] % (Auto) (14.0 - 32.0 %) 17.1 [place] % (Auto) (4.8 - 9.0 %) 7.4 Eos % (Auto) (0.3 - 3.7 %) 0.9 Baso % (Auto) (0.0 - 2.0 %) 0.7 Neut # (Auto) (2.0 - 7.6 x10 3/uL) 7.21 Lymph # (Auto) (1.0 - 3.8 x10 3/uL) 1.68 [place] # (Auto) (0.1 - 0.8 x10 3/uL) [...] acid 1.2 within normal limit, urine output aekwb9964 cc with Lasix. Chest x-ray still pending. [...] white blood cells 8.34 at 1109 RPT #:[id number] OF REPORTPRProgress Yjul4699-78-57R69:39:00G.EXBE73088373-9419ENSxovrpjcw for patient nnavBHMPDTTIRRTGZD6239-01-01Z05:10:17 [facility] 2019-10-11 13:14:00 GZhwslkyaat15972976n8vbZMpqFlnxGdamxIwLW mXMO0+9lDsuxqC6oC yTI8pWf/K2LA6TWDRKVHoH0z0j9305-47-98Z59:14:00 [facility] CenterHospitalist Discharge SummaryREPORT#:[id number] REPORT STATUS: SignedDATE:10/11/19 TIME: 1314 PATIENT: MAC AGUSTIN UNIT #: [id number]#: [id number] [address] [birth year] AGE: 74 SEX: F ATTEND: Joel Myers [facility] AUTHOR: Nickie Ha MD * ALL edits or amendments must be made on the electronic/computer document * PCP PCPPCP:PCP: No Primary or Family Physician Discharge to: assisted General InformationProblem List/A P: 1. Acute renal [...] was found to have abnormal labs at [place], sent to ED forevaluation. In the ED, [...] and SSI- replace electrolytes- heparin for DVT prophylaxsis17Improved lactic acidosis with dialysis. Given improvement, likely [...] to 10.5On zosynTransfer to the floordw RN, [employer], consultantsCXR and telemetry personally reviewedFurther recs per clinical plzzih3710/01/2019- blood sugars stable on D10W. will switch [...] volume overload- off antibiotics- continue Megace- on Uxpdmqb5910/05/2019- follow creatinine. continue IVF for now- Heparing for VTE- renal following- d/w patient's nurse.- calorie yowryqmg22/26/2020- patient very short of breath. suspicious for volume overload- will stop IVF- give 1 dose of lasix- check CXR and BNP- continue Megace- BP more stable on Midodrine- continue to mobilize- heparin for VTE- daughter voiced concern about patient's exposure to COVID at the facility she came from. Will test for COVID-- Rapid COVID and PCR test negative- transfer out [address]- replete K+ and Mg+- off IV fluids.- renal function hwtpgulhg61/28/2020- pt reports feeling ok today, but is refusing all nursing care and refuses lab draw today- blood sugars adequately controlled for now, continue to hold metformin- appetite improved, monitor blood sugars closely, may need to start SSI as patient starts to eat more- nephrology following, continue to monitor renal function, HD per nephrology- d/c planning: reutrn to SNF when medically dxajqr4710/09/2019- cooperative with care today, feeling OK- blood [...] renal service following- replete lytes- back to SNF/ND once renal function stabilizestotal time spent with evaluating patient/data as well as providing education/counselling to patient was more than 35 minutes 10/10able for discharge back to SNF medications reviewed and reconciled stop metformin due to above Cr stable 2.2 follow up [facility] nephrology.>30 min, 36 min. Med Rec Med [...] PhysicianAttending Physician: Attending Physician: Joel Myers MD Aphryvaatl provider 1: Provider 1: Rabia Aguilar MD [...] (bLE +1), no clubbing, no cyanosisMusculoskeletal: normal inspectionNeuro/NETSUITE DEVELOPER: no motor deficitsSkin: no rashLymphatics: neck normalPsychiatry: [...] % (Auto) (14.0 - 32.0 %) 17.1 [place] % (Auto) (4.8 - 9.0 %) 7.4 Eos % (Auto) (0.3 - 3.7 %) 0.9 Baso % (Auto) (0.0 - 2.0 %) 0.7 Neut # (Auto) (2.0 - 7.6 x10 3/uL) 7.21 Lymph # (Auto) (1.0 - 3.8 x10 3/uL) 1.68 [place] # (Auto) (0.1 - 0.8 x10 3/uL) [...] current med profile rev'd at 1317 RPT #:[id number] OF REPORTDSDischarge tjbmttc0320-70-04P37:14:00G.GAMK47851195-5646LWYmoghwjgy for patient gygpHUVRIFWUSYRTXY8811-72-88L14:18:22 [facility] 2019-10-11 09:50:00 ERorchtreht47761319bw6MX+hLhpduafAfKUEIX Yie+DwN+PQPhMYk0w SI7i3LrXa2outyYZ0GVf9RB2/85835-10-68Z52:50:00 [facility] ([facility]ENephrology Progress NoteREPORT#:[id number] REPORT STATUS: SignedDATE:10/11/19 TIME: 0950 PATIENT: MAC AGUSTIN UNIT #: [id number]#: [id number] [address] [birth year] AGE: 74 SEX: F ATTEND: Joel Myers [facility] AUTHOR: Rabia Aguilar MD * ALL edits [...] expansionAbdomen: softGenitourinary: no foleyExtremities: no edemaMusculoskeletal: normal inspectionNeuro/NETSUITE DEVELOPER: altered mental statusSkin: dry ResultsFindings/Data:Laboratory Tests 10/10 [...] (Auto) (14.0 - 32.0 %) 20.6 21.1 [place] % (Auto) (4.8 - 9.0 %) 6.5 7.0 Eos % (Auto) (0.3 - 3.7 %) 1.0 1.0 Baso % (Auto) (0.0 - 2.0 %) 0.6 0.3 Neut # (Auto) (2.0 - 7.6 x10 3/uL) 7.69 H 7.33 Lymph # (Auto) (1.0 - 3.8 x10 3/uL) 2.24 2.20 [place] # (Auto) (0.1 - 0.8 x10 3/uL) [...] source is unclear, rule out ischemic bowel, Cherisyn, will need to review her medications if [...] acid 1.2 within normal limit, urine output asgir1055 cc with Lasix. Chest x-ray still pending. [...] check results when available. at 0952 RPT #:[id number] OF REPORTPRProgress Svwc5606-03-47F49:50:00G.GLTW13430491-6731LISgtfhfflg for patient hslqPYZLFYMNJXELVA0093-41-50C85:52:30 [facility] 2019-10-11 07:27:00 CRdnigxokmw88249588lRSRQgzY7MoqleAcNSxXn iLfwDG9SDUh3rRibE QIttWyGJPuG6qRbIRsKDKRML8O0462-43-79Q28:27:00 [facility] CenterRehab Progress NoteREPORT#:[id number] REPORT STATUS: SignedDATE:10/11/19 TIME: 726 PATIENT: MAC AGUSTIN UNIT #: [id number]#: [id number] ROOM/BED: 5526-1DOB: [birth year] AGE: 74 SEX: F ATTEND: Joel Myers [facility] AUTHOR: Lucy Ayon PA-C * ALL edits or amendments must be made on the electronic/computer document * SubjectiveChief complaint:Pt seen in bed. Not much for conversation. + dementia. State she ate last night outside food brought from [facility]. No complaints. States unable to get oob. [...] clearNeck: supple, no JVDCardiovascular: regular rate rhythm, S1/T0Hkoaalytisd: aerating well, clear bilaterallyAbdomen: bowel sounds present, non-distended, soft, soft, non-tenderSkin: dry, intactMusculoskeletal - general: Musculoskeletal - general: joints normal, range of motion normal, no swellingNeuro/NETSUITE DEVELOPER: altered mental status, alert, no motor deficits, [...] PT: Candace Supervising Therapist: CHERYLRC1 Leo Bates ResultsFindings/Data:Laboratory Tests: 10/10 10/10 10/10 10/09 1130 [...] % (Auto) (14.0 - 32.0 %) 17.1 [place] % (Auto) (4.8 - 9.0 %) 7.4 Eos % (Auto) (0.3 - 3.7 %) 0.9 Baso % (Auto) (0.0 - 2.0 %) 0.7 Neut # (Auto) (2.0 - 7.6 x10 3/uL) 7.21 Lymph # (Auto) (1.0 - 3.8 x10 3/uL) 1.68 [place] # (Auto) (0.1 - 0.8 x10 3/uL) [...] (Man) (0.0 - 0.1 x10 3/uL) 0.00 10/09 1520 Chemistry POC Glucose (70 - 110 [...] dementia she would benefit from returning to custodial facility following her [facility] stay. I discussed with the patient's bptmlupq-tc-mgt who is on the chart as 1 of the contacts and she states their wish is for her to return to [facility] once medically cleared. 10/01: Encourage particpation with [...] intake. Planis for her to return to [facility] 10/10: Pt seen ate dinner last night. Continue to encourage po intake. Self limiting with OOB with therapy. SNF soon. Rehab attestation:Face to face exam completed. Treatment plan discussed with patient. at 1250 RPT #:[id number] OF REPORTPRProgress Syos9543-03-60T64:27:00G.VGIG87287653-9829YYQynoskilp for patient owxnSVFYOIFQKOTBZS8578-18-80V58:50:38 [facility] 2019-10-10 22:35:00 PWvvmynmowf28814901NfrZN+dJ3Ixb0DtsdV2hy +pObIO1JGxhPtQEM4 ddU77etyIV9q8Ph8rdD+sWmI7H8851-95-50Q69:35:00 [facility] CenterRehab Progress NoteREPORT#:[id number] REPORT STATUS: SignedDATE:10/10/19 TIME: 2234 PATIENT: MAC AGUSTIN UNIT #: [id number]#: [id number] ROOM/BED: 5526-1DOB: [birth year] AGE: 74 SEX: F [...] clearNeck: supple, no JVDCardiovascular: regular rate rhythm, S1/X2Nogpgqahpgi: aerating well, clear bilaterallyAbdomen: bowel sounds present, non-distended, soft, soft, non-tenderSkin: dry, intactMusculoskeletal - general: Musculoskeletal - general: joints normal, range of motion normal, no swellingNeuro/NETSUITE DEVELOPER: altered mental status, alert, no motor deficits, [...] TO PULL, PATIENT WAS RAISED UP [facility]OWARD [facility]. PATIENT BED THEN PLACED IN CHAIR POSITION [...] Supervising Therapist: Nubia Spangler ResultsFindings/Data:Laboratory Tests: 10/09 1520 1009 0647 0446Chemistry Sodium (134 - [...] % (Auto) (14.0 - 32.0 %) 20.6 [place] % (Auto) (4.8 - 9.0 %) 6.5 Eos % (Auto) (0.3 - 3.7 %) 1.0 Baso % (Auto) (0.0 - 2.0 %) 0.6 Neut # (Auto) (2.0 - 7.6 x10 3/uL) 7.69 H Lymph # (Auto) (1.0 - 3.8 x10 3/uL) 2.24 [place] # (Auto) (0.1 - 0.8 x10 3/uL) [...] acidosis with multiple electrolyte abnormalities including hypokalemia, hypo-[place] anemia, hypocalcemia, hypoalbuminemia. Patient then developed acute pulmonary vascular congestion is being diuresed. Plan: Physical therapy, Occupational Therapy and speech therapy have been consulted. Due to patient being an unreliable historian and moderate dementia she would benefit from returning to custodial facility following her [facility] stay. I discussed with the patient's uegaftov-mc-ukl who is on the chart as 1 of the contacts and she states their wish is for her to return to [facility] once medically cleared. 10/01: Encourage particpation with [...] intake. Planis for her to return to [facility] Rehab attestation:Face to face exam completed. Treatment plan discussed with patient. at 2249 RPT #:[id number] OF REPORTPRProgress Bhfg4233-99-55A28:35:00G.WIWS63470134-1568FYAvvbtkuuj for patient pnqiHHIVOGBPJYCNBA3537-28-19I03:50:00 [facility] 2019-10-10 08:06:00 JCyzyufnend94373732Sn4sAzPikDUaGtXkSmRxL mhKeCbPot94Rpe/ juB17hiApIMTF6+cQ02mMZ9N6M6836-47-98C06:06:00 [facility] ([facility])Nephrology Progress NoteREPORT#:[id number] REPORT STATUS: SignedDATE:10/10/19 TIME: 805 PATIENT: MAC AGUSTIN UNIT #: [id number]#: [id number] [address] [birth year] AGE: 74 SEX: F ATTEND: [...] 92.2 95 Room air 10/08 0840 Nasal 3.097885 cannula 24 hour I O ending at [...] expansionAbdomen: softGenitourinary: no foleyExtremities: no edemaMusculoskeletal: normal inspectionNeuro/NETSUITE DEVELOPER: altered mental statusSkin: dry ResultsFindings/Data:Laboratory Tests 10/09 [...] acid 1.2 within normal limit, urine output pgndz3200 cc with Lasix. Chest x-ray still pending. [...] 2 g IV x1. at 1135 RPT #:[id number] OF REPORTPRProgress Mfxo7788-54-58Z45:06:00G.ASXR72559918-0701QZIjdjjfmqp for patient eyvgFDDNVXSBDMGFNU3386-26-59Y73:35:45 [facility] 2019-10-10 07:44:00 SPbdigrpuvi59132544NTIDePV99bMGIvPBIieaR zAalE1UoBnHyYhKu2 578VJQ26KvULpExu5/Iz1a6rMK2165-42-33E77:44:00 [facility] CenterHospitalist Progress NoteREPORT#:[id number] REPORT STATUS: SignedDATE:10/10/19 TIME: 743 PATIENT: MAC AGUSTIN UNIT #: [id number]#: [id number] [address] [birth year] AGE: 74 SEX: F ATTEND: Joel Myers [facility] AUTHOR: Joel Myers MD * ALL edits [...] 92.2 95 Room air 10/08 0840 Nasal 3.144296 cannula 24 hour I O ending at [...] (bLE +1), no clubbing, no cyanosisMusculoskeletal: normal inspectionNeuro/NETSUITE DEVELOPER: no motor deficitsSkin: no rashPsychiatry: normal affect [...] was found to have abnormal labs at [place], sent to ED for evaluation. In the [...] gastric wall once improvedCheck labs in am 20Off insulin dripCXR reviewedCont lasixWBC count came down to 10.5On zosynTransfer to the floordw RN, [employer], consultantsCXR and telemetry personally reviewedFurther recs per [...] PCR test negative - transfer out of [facility] - replete K+ and Mg+ - [...] following - replete lytes - back to SNF/ND once renal function stabilizestotal time spent with evaluating patient/data as well as providing education/counselling to patient was more than 35 minutes at 0838 RPT #:[id number] OF REPORTPRProgress Jjsv7187-68-47U60:44:00G.DHZP95964772-9529ADHzjikiwhl for patient vbueGSFFCVFNPQDIJV2610-11-09B78:38:22 [facility] 2019-10-09 15:23:00 EQvcoyufaum2627487424AyjW9gxSSA+A46Isg+e 9c4tzBfFP9+lyxG+t xplZfIREMa+gNNy5l43IAfoVDl4087-71-03N13:23:00 [facility] ([facility]ERehab Progress NoteREPORT#:[id number] REPORT STATUS: SignedDATE:10/09/19 TIME: 1523 PATIENT: MAC AGUSTIN UNIT #: [id number]#: [id number] ROOM/BED: [address]: [birth year] AGE: 74 SEX: F ATTEND: Joel yMers [facility] AUTHOR: Lucy Ayon PA-C * ALL edits or amendments must be made on the electronic/computer document * SubjectiveChief complaint:Pt seen in bed. Not much for conversation. + dementia and unreliable. Objective GeneralVS:Vital Signs: Date Time Temp Pulse Resp B/P B/P Pulse O2 O2 Flow FiO2 Mean Ox Delivery Rate 10/08 1058 98.1 62 17 124/76 92.2 95 Room air 10/08 0840 Nasal 3.734759 cannula 10/08 0645 98.1 62 17 110/67 81.4 99 Room air 10/08 0431 98.4 63 16 112/73 85.9 96 Room air 10/08 0036 97.9 70 12 98/56 69.9 96 Room air 10/07 2118 Nasal 3.567890 cannula 10/07 1924 98.6 70 17 102/65 [...] clearNeck: supple, no JVDCardiovascular: regular rate rhythm, S1/D6Wfzghbrselv: aerating well, clear bilaterallyAbdomen: bowel sounds present, non-distended, soft, soft, non-tenderSkin: dry, intactMusculoskeletal - general: Musculoskeletal - general: joints normal, range of motion normal, no swellingNeuro/NETSUITE DEVELOPER: altered mental status, alert, no motor deficits, [...] Vanna Higgins Conference/Supervising PT: Y Supervising Therapist: Darrion Martinez Pt refused OT today. ResultsFindings/Data:Laboratory Tests: 10/08 [...] % (Auto) (14.0 - 32.0 %) 21.1 [place] % (Auto) (4.8 - 9.0 %) 7.0 Eos % (Auto) (0.3 - 3.7 %) 1.0 Baso % (Auto) (0.0 - 2.0 %) 0.3 Neut # (Auto) (2.0 - 7.6 x10 3/uL) 7.33 Lymph # (Auto) (1.0 - 3.8 x10 3/uL) 2.20 [place] # (Auto) (0.1 - 0.8 x10 3/uL) [...] (0.0 - 0.1 x10 3/uL) 0.02 10/07 1540 Chemistry POC Glucose (70 - 110 [...] dementia she would benefit from returning to custodial facility following her [facility] stay. I discussed with the patient's gjvqkmqd-oj-epj who is on the chart as 1 of the contacts and she states their wish is for her to return to [facility] once medically cleared. 10/01: Encourage particpation with [...] feeding tube. Rehab attestation:. at 1853 RPT #:[id number] OF REPORTPRProgress Ssmc9587-40-51O32:23:00G.EBMA80819126-3255YBClsqiwlwd for patient mraqZOWHPRCPQRWJUT2661-09-87Z27:54:21 [facility] 2019-10-09 12:54:00 OOgokpjcdhv49886124XTZl67XDasO8rUeUFtUgc +x1t1nhEOfXIUtIo9 Nk7c+C4TfiDFHJ/Jf1wvXFRdXy2347-18-86G25:54:00 [facility] CenterHospitalist Progress NoteREPORT#:[id number] REPORT STATUS: SignedDATE:10/09/19 TIME: 1254 PATIENT: MAC AGUSTIN UNIT #: [id number]#: [id number] [address] [birth year] AGE: 74 SEX: F ATTEND: [...] 92.2 95 Room air 10/08 0840 Nasal 3.380222 cannula 10/08 0645 98.1 62 17 110/67 81.4 99 Room air 10/08 0431 98.4 63 16 112/73 85.9 96 Room air 10/08 0036 97.9 70 12 98/56 69.9 96 Room air 10/07 2118 Nasal 3.692940 cannula 10/07 1924 98.6 70 17 102/65 [...] (bLE +1), no clubbing, no cyanosisMusculoskeletal: normal inspectionNeuro/NETSUITE DEVELOPER: no motor deficitsSkin: no rashLymphatics: neck normalPsychiatry: [...] % (Auto) (14.0 - 32.0 %) 21.1 [place] % (Auto) (4.8 - 9.0 %) 7.0 Eos % (Auto) (0.3 - 3.7 %) 1.0 Baso % (Auto) (0.0 - 2.0 %) 0.3 Neut # (Auto) (2.0 - 7.6 x10 3/uL) 7.33 Lymph # (Auto) (1.0 - 3.8 x10 3/uL) 2.20 [place] # (Auto) (0.1 - 0.8 x10 3/uL) [...] was found to have abnormal labs at [place], sent to ED for evaluation. In the [...] to 10.5On zosynTransfer to the floordw RN, [employer], consultantsCXR and telemetry personally reviewedFurther recs per [...] PCR test negative - transfer out of [facility] - replete K+ and Mg+ - [...] more than 35 minutes at 0738 RPT #:[id number] OF REPORTPRProgress Ehfr6347-28-20G13:54:00G.ZUTA27255141-8214WZRwyeiwavs for patient knjpRYTDYERNVNOIDY0913-16-50Z70:38:30 [facility] 2019-10-09 06:07:00 TUsfeoumrij04645802FJasXOTXyIfTqEKPKQIv+ qGidsMHcSYV5si1YT DcH2pumHkfspF/386y4/fIFicG7629-91-05U79:07:00 [facility] ([facility])Nephrology Progress NoteREPORT#:[id number] REPORT STATUS: SignedDATE:10/09/19 TIME: 06 PATIENT: MAC AGUSTIN UNIT #: [id number]#: [id number] [address] [birth year] AGE: 74 SEX: F ATTEND: Joel Myers [facility] AUTHOR: Rabia Aguilar MD * ALL edits [...] 69.9 96 Room air 10/07 2118 Nasal 3.451946 cannula 10/07 1924 37.0 70 17 102/65 77.4 96 Room air 10/07 1539 36.6 77 18 102/58 72.3 97 10/07 1023 37.1 65 18 114/69 83.9 97 10/07 0840 Nasal 3.146378 cannula 10/07 0635 36.8 62 18 118/78 [...] expansionAbdomen: softGenitourinary: no foleyExtremities: no edemaMusculoskeletal: normal inspectionNeuro/NETSUITE DEVELOPER: altered mental statusSkin: dry ResultsFindings/Data:Laboratory Tests 10/08 10/08 10/07 10/07 10/07 0644 0420 [...] H 155 H 130 H 112 H 10/06 173 1223 Chemistry Sodium (134 - 147 mEq/L) [...] (Auto) (14.0 - 32.0 %) 21.1 25.3 [place] % (Auto) (4.8 - 9.0 %) 7.0 14.7 H Eos % (Auto) (0.3 - 3.7 %) 1.0 1.4 Baso % (Auto) (0.0 - 2.0 %) 0.3 0.4 Neut # (Auto) (2.0 - 7.6 x10 3/uL) 7.33 5.41 Lymph # (Auto) (1.0 - 3.8 x10 3/uL) 2.20 2.40 [place] # (Auto) (0.1 - 0.8 x10 3/uL) [...] x10 3/uL) 0.02 0.02 Laboratory Tests 10/05 10/05 2000 1355 Serology COVID-19 PCR (Negative) Negative Nasal/Oral COVID-19 PCR (Negative) Negative Laboratory Tests 10/07 10/07 10/07 10/06 10/06 1925 1022 0636 1905 1619 Chemistry POC Glucose (70 - 110 MG/DL) 282 H 115 H 117 H 152 H 155 H 10/06 10/06 10/06 10/05 10/05 1108 0749 246 2008 1731 Chemistry Sodium (134 - [...] % (Auto) (14.0 - 32.0 %) 25.3 [place] % (Auto) (4.8 - 9.0 %) 14.7 H Eos % (Auto) (0.3 - 3.7 %) 1.4 Baso % (Auto) (0.0 - 2.0 %) 0.4 Neut # (Auto) (2.0 - 7.6 x10 3/uL) 5.41 Lymph # (Auto) (1.0 - 3.8 x10 3/uL) 2.40 [place] # (Auto) (0.1 - 0.8 x10 3/uL) [...] acid 1.2 within normal limit, urine output mamzt0067 cc with Lasix. Chest x-ray still pending. [...] 10,000 subcu once a week. at 0932 RPT #:[id number] OF REPORTPRProgress Agan5157-19-80G48:07:00G.KLLU97858108-5661NXAfyuluzqo for patient icewKZTZNPYDCKYNYA8899-17-07G38:33:19 [facility] 2019-10-08 14:34:00 QGrqlnsnwyx59651474rK5W567HSTKvn79xglVWR P2QdxTS9BTe6rzk73 doeizfwqpVO8ucuC7WwqJKgRM39357-71-77J88:34:00 [facility])Gastroenterology Progress NoteREPORT#:[id number] REPORT STATUS: SignedDATE:10/08/19 TIME: 1434 PATIENT: MAC AGUSTIN UNIT #: [id number]#: [id number] [address] [birth year] AGE: 74 SEX: F ATTEND: [...] Nasal cannula 10/07 0840 O2 Flow Rate 3.599699 10/07 0840 24 hour I O ending [...] altered mental statusHEENT: moist mucosal membranesCardiovascular: normal S1/B3Lbpvynhczpf: clear to auscultationAbdomen: non-tender, normal bowel sounds, [...] bleeding- Discharge per primary at 1435 RPT #:[id number] OF REPORTPRProgress Fdzy9504-88-98R71:34:00G.UMKG40879565-2507RNLrcxkodqm for patient ljilKTMRMJHBAGOSDZ2056-76-70M31:36:04 [facility] 2019-10-08 14:34:00 AOpummkfqsx48032973peEFkMsT7dj64dS/GVH0I VG4E+KqYRR6AYvvwU uOEgTMtqN+Ey4ABaltxAUBtTTo5822-50-34B79:34:00 [facility] ([facility])Gastroenterology Progress NoteREPORT#:[id number] REPORT STATUS: SignedDATE:10/08/19 TIME: 1433 PATIENT: MAC AGUSTIN UNIT #: [id number]#: [id number] [address] [birth year] AGE: 74 SEX: F ATTEND: Joel Myers [facility] AUTHOR: Arian Anderson * ALL edits or [...] Nasal cannula 10/07 0840 O2 Flow Rate 3.610583 10/07 0840 24 hour I O ending [...] altered mental statusHEENT: moist mucosal membranesCardiovascular: normal S1/N4Bwvrouisebr: clear to auscultationAbdomen: non-tender, normal bowel sounds, [...] the findings and plan as documented by [employer]. at 1435 RPT #:[id number] OF REPORTPRProgress Niwr8662-78-76U36:34:00G.JWNY90092062-8251RABwrurbtjo for patient ddkkYNXBFWAPXKRMUE9738-70-12F78:02:06 [facility] 2019-10-08 14:34:00 FPkatfjkzcn052860127UGj9bSwuFdc59fV1CdAe kXfYPBir4pUbSGHy3 9P6SGFxvZWjhmvDNAbAHQFIGw+0139-73-47R58:34:00 [facility])Gastroenterology Progress NoteREPORT#:[id number] REPORT STATUS: SignedDATE:10/08/19 TIME: 143 PATIENT: MAC AGUSTIN UNIT #: [id number]#: [id number] [address] [birth year] AGE: 74 SEX: F ATTEND: Joel yMers [facility] AUTHOR: Arian Anderson * ALL edits or [...] Nasal cannula 10/07 0840 O2 Flow Rate 3.609918 10/07 0840 24 hour I O ending at 0700: 04/28 0700 10/06 1900 Intake Total 240 Output [...] altered mental statusHEENT: moist mucosal membranesCardiovascular: normal S1/J7Lmedlgejjsf: clear to auscultationAbdomen: non-tender, normal bowel sounds, [...] the findings and plan as documented by [employer]. at 1435 at 0914 RPT #:[id number] OF REPORTPRProgress [id number]:34:00G.[id number] for patient [id number]:15:17 [facility] 2019-10-08 14:05:00 [id number] 7bRO+vMQO8wgIb0r0 aMQ5mUbGQyblOkXdUIO7RPuZkS7188-92-05F63:05:00 [facility]Rehab Progress NoteREPORT#:[id number] REPORT STATUS: SignedDATE:10/08/19 TIME: 1405 PATIENT: MAC AGUSTIN UNIT #: [id number]#: [id number] ROOM/BED: 5526-1DOB: [birth year] AGE: 74 SEX: F ATTEND: Joel Myers [facility] AUTHOR: Lucy Ayon PA-C * ALL edits or amendments must be made on the electronic/computer document * SubjectiveChief complaint:Pt seen in bed. No complaints. States cold. + Dementia. Objective GeneralVS:Vital Signs: Date Time Temp Pulse Resp B/P B/P Pulse O2 O2 Flow FiO2 Mean Ox Delivery Rate 10/07 1023 98.8 65 18 114/69 83.9 97 10/07 0840 Nasal 3.999010 cannula 10/07 0635 98.2 62 18 118/78 91.3 97 10/06 2356 97.2 76 17 137/67 0.0 96 Room air 10/06 2120 Nasal 3.476765 cannula 04/27 1943 98.4 54 97 10/06 1906 98.2 [...] clearNeck: supple, no JVDCardiovascular: regular rate rhythm, S1/L4Alvfafpgvpu: aerating well, clear bilaterallyAbdomen: bowel sounds present, non-distended, soft, soft, non-tenderSkin: dry, intactMusculoskeletal - general: Musculoskeletal - general: joints normal, range of motion normal, no swellingNeuro/NETSUITE DEVELOPER: altered mental status, alert, no motor deficits, [...] acidosis with multiple electrolyte abnormalities including hypokalemia, hypo-[place] anemia, hypocalcemia, hypoalbuminemia. Patient then developed acute pulmonary vascular congestion is being diuresed. Plan: Physical therapy, Occupational Therapy and speech therapy have been consulted. Due to patient being an unreliable historian and moderate dementia she would benefit from returning to custodial facility following her [facility]. I discussed with the patient's avyimwac-qi-mjj who is on the chart as 1 of the contacts and she states their wish is for her to return to [facility] once medically cleared. 10/01: Encourage particpation with [...] to face exam completed. at 1409 RPT #:[id number] OF REPORTPRProgress Pkam4521-72-95H81:05:00G.JRUC21335220-2741UYVchixhjbm for patient flacIAEMXDTTOFQPLQ5123-24-04H09:09:49 [facility] 2019-10-08 12:04:00 BRjnkuhxscs02416245DthzZTYEM4g2SEEBp71fi BiFiCQnjqrWFLsJ9u /o+uQTn+VpOZv9kvuanNoWw2rB2219-55-39A12:04:00 [facility] CenterHospitalist Progress NoteREPORT#:[id number] REPORT STATUS: SignedDATE:10/08/19 TIME: 1204 PATIENT: MAC AGUSTIN UNIT #: [id number]#: [id number] [address] [birth year] AGE: 74 SEX: F ATTEND: Joel Myers [facility] AUTHOR: Joel Myers MD * ALL edits [...] 18 114/69 83.9 97 10/07 0840 Nasal 3.871800 cannula 10/07 0635 98.2 62 18 118/78 91.3 97 10/06 2356 97.2 76 17 137/67 0.0 96 Room air 10/06 2120 Nasal 3.190828 cannula 10/06 1943 98.4 54 97 10/06 [...] (bLE +1), no clubbing, no cyanosisMusculoskeletal: normal inspectionNeuro/NETSUITE DEVELOPER: no motor deficitsSkin: no rashLymphatics: neck normalPsychiatry: [...] was found to have abnormal labs at [place], sent to ED for evaluation. In the ED, found to have severe lactic and metabolic acidosis. Discussed at length with ICU (Dr. Lin) and Renal (Dr Aguilar). Given her de elon imaging, urinalysis, CXR are unremarkable for this [...] to 10.5On zosynTransfer to the floordw RN, [employer], consultantsCXR and telemetry personally reviewedFurther recs per [...] PCR test negative - transfer out [facility] - replete K+ and Mg+ - [...] more than 35 minutes at 0733 RPT #:[id number] OF REPORTPRProgress Utha1032-45-63B68:04:00G.YIWR52034922-3128LWBhlrxvthf for patient jrglSDNXQUTEGOGOTZ6431-07-63H37:33:42 [facility] 2019-10-08 07:45:00 EQtinmgoztt67101365TGNhnYwgSzNLAECn5uBoW 7PN2SITyobPbddwjr bXEQqAxqDVB/1qDX5b7qMP6YQG2336-38-82Q87:45:00 [facility] ([facility])Nephrology Progress NoteREPORT#:[id number] REPORT STATUS: SignedDATE:10/08/19 TIME: 0745 PATIENT: MAC AGUSTIN UNIT #: [id number]#: [id number] [address] [birth year] AGE: 74 SEX: F ATTEND: Joel Myers [facility] AUTHOR: Rabia Aguilar MD * ALL edits [...] 0.0 96 Room air 10/06 2120 Nasal 3.774841 cannula 10/06 1943 36.9 54 97 10/06 1906 36.8 42 17 127/63 84.0 98 Room air 10/06 1620 36.8 60 18 121/68 86.1 97 10/06 0900 Nasal 3.670628 cannula 10/06 0800 36.6 64 33 125/58 [...] expansionAbdomen: softGenitourinary: no foleyExtremities: no edemaMusculoskeletal: normal inspectionNeuro/NETSUITE DEVELOPER: altered mental statusSkin: dry ResultsFindings/Data:Laboratory Tests 10/06 [...] Magnesium (1.8 - 2.4 mg/dL) 1.50 L 0410/05 1732 1223 0734 0405Chemistry POC Glucose (70 - 110 MG/DL) 139 H 174 H 204 H 108 B-Natriuretic Peptide (0 - 100 PG/ML) 301.5 H 10/05 1710 1128 0820 Chemistry Sodium (134 - [...] % (Auto) (14.0 - 32.0 %) 25.3 [place] % (Auto) (4.8 - 9.0 %) 14.7 H Eos % (Auto) (0.3 - 3.7 %) 1.4 Baso % (Auto) (0.0 - 2.0 %) 0.4 Neut # (Auto) (2.0 - 7.6 x10 3/uL) 5.41 Lymph # (Auto) (1.0 - 3.8 x10 3/uL) 2.40 [place] # (Auto) (0.1 - 0.8 x10 3/uL) [...] 10/06 10/06 10/06 10/06 1905 1619 1108 0744 Chemistry POC Glucose (70 - 110 MG/DL) [...] acid 1.2 within normal limit, urine output aetzv4194 cc with Lasix. Chest x-ray still pending. [...] IV fluid was DC'd. at 1100 RPT #:[id number] OF REPORTPRProgress Uaxx8047-31-93R99:45:00G.RMII06085636-7472ZKAuyqvkxcf for patient njelCSSURSIWTXCUCS4613-12-89D21:00:50 [facility] 2019-10-08 07:45:00 FUizkyuulkn11980276NIuR4PpB+Dx6Uw7bdG1jf q587aTk7YTydWqk4z jKVAMsFYwzyrPm19xTcIXvridN4093-28-13Q85:45:00 [facility] ([facility]ENephrology Progress NoteREPORT#:[id number] REPORT STATUS: SignedDATE:10/08/19 TIME: 744 PATIENT: MAC AGUSTIN UNIT #: [id number]#: [id number] [address] [birth year] AGE: 74 SEX: F ATTEND: Joel Myers [facility] AUTHOR: Rabia Aguilar MD * ALL edits [...] 0.0 96 Room air 10/06 2120 Nasal 3.024678 cannula 10/06 1943 36.9 54 97 10/06 1906 36.8 42 17 127/63 84.0 98 Room air 10/06 1620 36.8 60 18 121/68 86.1 97 10/06 0900 Nasal 3.299213 cannula 10/06 0800 36.6 64 33 125/58 [...] expansionAbdomen: softGenitourinary: no foleyExtremities: no edemaMusculoskeletal: normal inspectionNeuro/NETSUITE DEVELOPER: altered mental statusSkin: dry ResultsFindings/Data:Laboratory Tests 10/06 [...] % (Auto) (14.0 - 32.0 %) 25.3 [place] % (Auto) (4.8 - 9.0 %) 14.7 H Eos % (Auto) (0.3 - 3.7 %) 1.4 Baso % (Auto) (0.0 - 2.0 %) 0.4 Neut # (Auto) (2.0 - 7.6 x10 3/uL) 5.41 Lymph # (Auto) (1.0 - 3.8 x10 3/uL) 2.40 [place] # (Auto) (0.1 - 0.8 x10 3/uL) [...] Report Impression - Status: SIGNED Entered: 10/06/2019 0962 IMPRESSION:1. Decreasing bilateral pleural effusions and bibasilar [...] acid 1.2 within normal limit, urine output lmzls2156 cc with Lasix. Chest x-ray still pending. [...] will check results when available at 1101 [facility] #:[id number] OF REPORTPRProgress Kdlg3308-08-58U61:45:00G.DFQF52187908-2753XKNxhvhspzn for patient ffzrPUDLBEDHFDFLIW8572-63-86B54:02:00 [facility] 2019-10-07 16:37:00 DHsntrngomz56539341peIcCm6VHVrUnTF1n68YB ZMuN4jrxZbKR1mF4q ufp5/Y55n/HVs8SNbMnTw7SDp49571-72-72F93:37:00 [facility] CenterRehab Progress NoteREPORT#:[id number] REPORT STATUS: SignedDATE:10/07/19 TIME: 163 PATIENT: MAC AGUSTIN UNIT #: [id number]#: [id number] [address]: [birth year] AGE: 74 SEX: F ATTEND: Joel Myers [facility] AUTHOR: Lucy Ayon PA-C * ALL edits or amendments must be made on the electronic/computer document * SubjectiveChief complaint:Pt seen in bed. No complaints. States cold. Pt ruled out for COVID Objective GeneralVS:Vital Signs: Date Time Temp Pulse Resp B/P B/P Pulse O2 O2 Flow FiO2 Mean Ox Delivery Rate 10/06 1620 98.2 60 18 121/68 86.1 97 10/06 0900 Nasal 3.719992 cannula 10/06 0800 97.8 64 33 125/58 [...] 10/05 2100 53 21 117/58 84 96 10/059 98.4 10/05 1752 97.7 63 16 104/68 80.0 99 Nasal 3.684288 cannula Patient Weight Weight (lb): 167Weight (oz): [...] clearNeck: supple, no JVDCardiovascular: regular rate rhythm, S1/X1Oqxvlduptsh: aerating well, clear bilaterallyAbdomen: bowel sounds present, non-distended, soft, soft, non-tenderSkin: dry, intactMusculoskeletal - general: Musculoskeletal - general: joints normal, range of motion normal, no swellingNeuro/NETSUITE DEVELOPER: altered mental status, alert, no motor deficits, [...] 38 Completed by: Raymond Urbina Supervising Therapist: Spangler,Angela OTR . . ResultsFindings/Data:Laboratory Tests: 10/06 10/06 10/06 10/05 [...] % (Auto) (14.0 - 32.0 %) 25.3 [place] % (Auto) (4.8 - 9.0 %) 14.7 H Eos % (Auto) (0.3 - 3.7 %) 1.4 Baso % (Auto) (0.0 - 2.0 %) 0.4 Neut # (Auto) (2.0 - 7.6 x10 3/uL) 5.41 Lymph # (Auto) (1.0 - 3.8 x10 3/uL) 2.40 [place] # (Auto) (0.1 - 0.8 x10 3/uL) [...] acidosis with multiple electrolyte abnormalities including hypokalemia, hypo-[place] anemia, hypocalcemia, hypoalbuminemia. Patient then developed acute pulmonary vascular congestion is being diuresed. Plan: Physical therapy, Occupational Therapy and speech therapy have been consulted. Due to patient being an unreliable historian and moderate dementia she would benefit from returning to custodial facility following [facility]. I discussed with the patient's ltmftggc-em-tuj who is on the chart as 1 of the contacts and she states their wish is for her to return to [facility] once medically cleared. 10/01: Encourage particpation with [...] plan discussed with patient. at 1639 RPT #:[id number] OF REPORTPRProgress Pfaz9683-94-06J77:37:00G.JTBU56890617-5347WBPuyplkyzc for patient wwluJBOXVHHIAPDNWE5697-78-67P18:39:31 [facility] 2019-10-07 08:17:00 XVrmzjnfash90196368FULo8NZLq7FxWyxC1zmYm GYFxt/susOhIREmcT Sja+pnuyyWWFwib6Vv0d1mDzBy4281-36-06N19:17:00 [facility] CenterHospitalist Progress NoteREPORT#:[id number] REPORT STATUS: SignedDATE:10/07/19 TIME: 08 PATIENT: MAC AGUSTIN UNIT #: [id number]#: [id number] [address] [birth year] AGE: 74 SEX: F ATTEND: [...] 97.7 63 16 104/68 80.0 99 Nasal 3.502666 cannula 10/05 1226 98.4 62 16 114/69 83.9 100 Nasal 3.764007 cannula 24 hour I O ending at [...] MG 0900,1300,1700 PO Sodium Chloride 1,000 ML .P62V32F IV (DC) Pantoprazole 40 MG BID@0600,1800 PO [...] (bLE +1), no clubbing, no cyanosisMusculoskeletal: normal inspectionNeuro/NETSUITE DEVELOPER: no motor deficitsSkin: no rashPsychiatry: normal affect ResultsFindings/Data:Laboratory Tests 10/06 10/06 10/05 10/05 10/05 0749 0247 2008 1732 1223 Chemistry Sodium (134 - [...] - 2.4 mg/dL) 1.50 L Laboratory Tests 10/067 Hematology WBC (4.5 - 11.0 x10 3/uL) [...] % (Auto) (14.0 - 32.0 %) 25.3 [place] % (Auto) (4.8 - 9.0 %) 14.7 H Eos % (Auto) (0.3 - 3.7 %) 1.4 Baso % (Auto) (0.0 - 2.0 %) 0.4 Neut # (Auto) (2.0 - 7.6 x10 3/uL) 5.41 Lymph # (Auto) (1.0 - 3.8 x10 3/uL) 2.40 [place] # (Auto) (0.1 - 0.8 x10 3/uL) [...] was found to have abnormal labs at [place], sent to ED for evaluation. In the [...] to 10.5On zosynTransfer to the floordw RN, [employer], consultantsCXR and telemetry personally reviewedFurther recs per [...] and PCR test negative - transfer out [address] - replete K+ and Mg+ - off IV fluids. - renal function improvingtotal time spent with evaluating patient/data as well as providing education/counselling to patient was more than 35 minutes at 0733 [facility] #:[id number] OF REPORTPRProgress Hbjd8958-54-96C05:17:00G.SKHY97187726-8846OUMjxtnldee for patient jvpfMSWWMYUSKSYNFY2996-43-30C87:33:22 [facility] 2019-10-07 07:32:00 BThrhsejnky35726750RivOOLwTQO5fSXWMHrP2i RVVS5PYHVbhDQUPCc LH71vP+BmK6Y4NijjMYVrzumXv4007-65-64R63:32:00 [facility] CenterNephrology Progress NoteREPORT#:[id number] REPORT STATUS: SignedDATE:10/07/19 TIME: 0732 PATIENT: MAC AGUSTIN UNIT #: [id number]#: [id number] ROOM/BED: 603[address]1DOB: [birth year] AGE: 74 SEX: F ATTEND: Joel Myers [facility] AUTHOR: Rabia Aguilar MD * ALL edits [...] 36.5 63 16 104/68 80.0 99 Nasal 3.241452 cannula 10/05 1226 36.9 62 16 114/69 83.9 100 Nasal 3.638708 cannula 10/05 0736 36.9 61 16 107/53 71.1 97 Nasal 3.758246 cannula 24 hour I O ending at [...] expansionAbdomen: softGenitourinary: no foleyExtremities: no edemaMusculoskeletal: normal inspectionNeuro/NETSUITE DEVELOPER: altered mental statusSkin: dry ResultsFindings/Data:Laboratory Tests 10/06 1732 1223 0734 Chemistry Sodium (134 - 147 [...] % (Auto) (14.0 - 32.0 %) 25.3 [place] % (Auto) (4.8 - 9.0 %) 14.7 H Eos % (Auto) (0.3 - 3.7 %) 1.4 Baso % (Auto) (0.0 - 2.0 %) 0.4 Neut # (Auto) (2.0 - 7.6 x10 3/uL) 5.41 Lymph # (Auto) (1.0 - 3.8 x10 3/uL) 2.40 [place] # (Auto) (0.1 - 0.8 x10 3/uL) [...] acid 1.2 within normal limit, urine output kdqrh1337 cc with Lasix. Chest x-ray still pending. [...] will increase IVF to 75 cc per h4/ Hgb 8.4, WBC 109, Na 136, K [...] IV fluid was DC'd. at 1214 RPT #:[id number] OF REPORTPRProgress Dkzs2845-35-31G23:32:00G.ZVFV30448006-6143UGGhdnyfyuu for patient xzujXTAUGDDEXBBEMX2588-89-80S57:14:44 [facility] 2019-10-06 08:21:00 OOevrujbgqy50737374TY7DMO4oJId3DHhMT1KRO E1xLNWBzFCZz0yu9n Nx3fwr+gnCp2T7Eau9pa+5UD1m1191-27-53L85:21:00 [facility] CenterNephrology Progress NoteREPORT#:[id number] REPORT STATUS: SignedDATE:10/06/19 TIME: 820 PATIENT: MAC AGUSTIN UNIT #: [id number]#: [id number] [address] [birth year] AGE: 74 SEX: F ATTEND: Joel Myers [facility] AUTHOR: Rabia Aguilar MD * ALL edits [...] 36.9 61 16 107/53 71.1 97 Nasal 3.667620 cannula 10/05 0554 37.2 56 16 100/61 74.0 94 10/05 0007 37.0 51 16 116/66 82.7 95 10/04 2022 37.0 56 16 107/56 72.7 95 10/04 1920 3.414592 10/04 1709 37.0 60 16 110/65 80.1 93 Room air 10/04 1130 37.0 64 16 117/75 89.1 97 Nasal 3.255841 cannula 10/04 0856 36.7 63 16 115/74 87.8 98 Nasal 3.887405 cannula 24 hour I O ending at 0700: 10/05 0700 10/04 1900 Intake Total 100 1200.00 Output Total Balance 100 1200.00 Intake, IV 700.00 Intake, Oral 100 170 Intake, Oral 0 330 Supplement Number 1 Bowel Movements Number Voids 1 MedicationsActive Meds + DC'd Last 24 HrsPotassium Chloride 50 ML Q1HR IV (DC) Midodrine 5 MG 0900,1300,1700 PO Sodium Chloride 1,000 ML .E28S89P IV Pantoprazole 40 MG BID@0600,1800 PO Megestrol [...] expansionAbdomen: softGenitourinary: no foleyExtremities: no edemaMusculoskeletal: normal inspectionNeuro/NETSUITE DEVELOPER: altered mental statusSkin: dry ResultsFindings/Data:Laboratory Tests 10/04 [...] 2.8 Magnesium (1.8 - 2.4 mg/dL) 1.90 0410/03 2103 1551 1139 0721 0505 Chemistry Sodium [...] % (Auto) (14.0 - 32.0 %) 29.3 [place] % (Auto) (4.8 - 9.0 %) 19.0 H Eos % (Auto) (0.3 - 3.7 %) 1.8 Baso % (Auto) (0.0 - 2.0 %) 0.4 Neut # (Auto) (2.0 - 7.6 x10 3/uL) 2.74 Lymph # (Auto) (1.0 - 3.8 x10 3/uL) 1.65 [place] # (Auto) (0.1 - 0.8 x10 3/uL) [...] Date/Time Procedure - Status Source Growth 10/03 010 Giardia Antigen (ANA) - COMP STOOL Laboratory [...] acid 1.2 within normal limit, urine output juwoa2428 cc with Lasix. Chest x-ray still pending. [...] down, continue IV fluid. at 1344 RPT #:[id number] OF REPORTPRProgress Uthn6551-26-46U00:21:00G.EISD01140756-5094MRLuczjcryu for patient mfmjEOCIYUSWRWYNLQ5300-38-95A83:44:52 [facility] 2019-10-06 08:00:00 NWaslstsahd0417654488lS3VyDizFBbsHDBbaxO UPQNntfeWWcN2dggK H5RE7/RI0nHR0etq2usSj4cWwd6606-02-01O81:00:00 [facility] CenterHospitalist Progress NoteREPORT#:[id number] REPORT STATUS: SignedDATE:10/06/19 TIME: 0800 PATIENT: MAC AGUSTIN UNIT #: [id number]#: [id number] [address] [birth year] AGE: 74 SEX: F ATTEND: [...] 98.4 61 16 107/53 71.1 97 Nasal 3.385002 cannula 10/05 0554 99.0 56 16 100/61 74.0 94 10/05 0007 98.6 51 16 116/66 82.7 95 10/04 2022 98.6 56 16 107/56 72.7 95 10/04 1920 3.075003 10/04 1709 98.6 60 16 110/65 80.1 93 Room air 10/04 1130 98.6 64 16 117/75 89.1 97 Nasal 3.888700 cannula 10/04 0856 98.1 63 16 115/74 87.8 98 Nasal 3.134504 cannula 24 hour I O ending at [...] MG 0900,1300,1700 PO Sodium Chloride 1,000 ML .J06D64N IV Pantoprazole 40 MG BID@0600,1800 PO Megestrol [...] (bLE +1), no clubbing, no cyanosisMusculoskeletal: normal inspectionNeuro/NETSUITE DEVELOPER: no motor deficitsSkin: no rashPsychiatry: normal affect [...] was found to have abnormal labs at [place], sent to ED for evaluation. In the [...] gastric wall once improvedCheck labs in am 20Off insulin dripCXR reviewedCont lasixWBC count came down to 10.5On zosynTransfer to the floordw RN, [employer], consultantsCXR and telemetry personally reviewedFurther recs per [...] patient's exposure to COVID at the facility [facility] from. Will test for COVID-19total time spent with evaluating patient/data as well as providing education/counselling to patient was more than 35 minutes at 0824 RPT #:[id number] OF REPORTPRProgress Bcvw7955-46-68D08:00:00G.MVLC85335211-3459ZFYhiyddmvh for patient mgxyPDKQWVCSLNNKKM3557-11-11E83:24:59 [facility] 2019-10-05 08:04:00 OWtpcbgubbz40571478IpUankWLjWQ905JEUDjvM JvyIs8/TD4WPxYnsO ovYJpBH2TFbp4ghCD+bn1e96ho2591-90-28I11:04:00 [facility] CenterNephrology Progress NoteREPORT#:[id number] REPORT STATUS: SignedDATE:10/05/19 TIME: 0804 PATIENT: MAC AGUSTIN UNIT #: [id number]#: [id number] [address] [birth year] AGE: 74 SEX: F ATTEND: Joel Myers MDADM AUTHOR: Rabia Aguilar MD * ALL edits [...] 17 113/67 82.0 98 10/04 0207 Nasal 4.485647 cannula 10/04 0000 36.6 56 16 114/67 82.4 95 10/03 2105 37.0 56 16 112/69 83.7 98 10/03 1550 36.6 57 18 110/69 82.4 98 Room air 10/03 1142 36.4 55 18 110/63 78.8 97 Room air 10/03 1000 Nasal 4.828746 cannula 24 hour I O ending at [...] MG 0900,1300,1700 PO Sodium Chloride 1,000 ML .Y40Q29F IV Pantoprazole 40 MG BID@0600,1800 PO Megestrol [...] expansionAbdomen: softGenitourinary: no foleyExtremities: no edemaMusculoskeletal: normal inspectionNeuro/NETSUITE DEVELOPER: altered mental statusSkin: dry ResultsFindings/Data:Laboratory Tests 10/03 10/03 10/03 10/03 10/03 2103 1551 [...] Magnesium (1.8 - 2.4 mg/dL) 1.70 L 10/0223 1912 1557 1057 0826 0520 Chemistry POC Glucose (70 - 110 MG/DL) 123 H 123 H 142 H 105 B-Natriuretic Peptide (0 - 100 PG/ML) 109.1 H 10/02 10/01 10/01 10/01 0520 1948 1558 1120 Chemistry Sodium (134 - 147 [...] (Auto) (14.0 - 32.0 %) 29.3 30.3 [place] % (Auto) (4.8 - 9.0 %) 19.0 H 14.0 H Eos % (Auto) (0.3 - 3.7 %) 1.8 2.5 Baso % (Auto) (0.0 - 2.0 %) 0.4 0.4 Neut # (Auto) (2.0 - 7.6 x10 3/uL) 2.74 2.73 Lymph # (Auto) (1.0 - 3.8 x10 3/uL) 1.65 1.58 [place] # (Auto) (0.1 - 0.8 x10 3/uL) [...] acid 1.2 within normal limit, urine output sujwc4395 cc with Lasix. Chest x-ray still pending. [...] down, continue IV fluid. at 1306 RPT #:[id number] OF REPORTPRProgress Rfhj8028-70-91B63:04:00G.FISB16194635-3237XZMwonvmqih for patient rnjwYPQQVLCYTFDMLN9326-41-72R18:06:43 [facility] 2019-10-05 07:53:00 AEhooehqfrg728437692MP931TeL5mwF+NWhyzLr h/JZQ3l/2pTFQf70K Xkf9jl6IPucc7mqJdTszZrVpIL4891-50-90O83:53:00 [facility]ist Progress NoteREPORT#:[id number] REPORT STATUS: SignedDATE:10/05/19 TIME: 752 PATIENT: MAC AGUSTIN UNIT #: [id number]#: [id number] [address] [birth year] AGE: 74 SEX: F ATTEND: [...] 17 113/67 82.0 98 10/04 0207 Nasal 4.061443 cannula 10/04 0000 97.9 56 16 114/67 82.4 95 10/03 2105 98.6 56 16 112/69 83.7 98 10/03 1550 97.9 57 18 110/69 82.4 98 Room air 10/03 1142 97.5 55 18 110/63 78.8 97 Room air 10/03 1000 Nasal 4.048083 cannula 24 hour I O ending at [...] MG 0900,1300,1700 PO Sodium Chloride 1,000 ML .M79S05R IV Pantoprazole 40 MG BID@0600,1800 PO Megestrol [...] (bLE +1), no clubbing, no cyanosisMusculoskeletal: normal inspectionNeuro/NETSUITE DEVELOPER: no motor deficitsSkin: no rashLymphatics: neck normalPsychiatry: [...] was found to have abnormal labs at [place], sent to ED for evaluation. In the [...] to 10.5On zosynTransfer to the floordw RN, [employer], consultantsCXR and telemetry personally reviewedFurther recs per [...] more than 35 minutes at 0806 RPT #:[id number] OF REPORTPRProgress Angj5931-88-46Y83:53:00G.DVBA43237439-2556JWJrruwypwj for patient qamrRJYCHXRGQOZESP5231-31-01A15:06:49 [facility] 2019-10-04 13:20:00 ISovrnwqhzc22024016qLYSVD/LjhrB+7qlPd35J 2zzts0m/u6eTFzmN1 67wbLZU/uil1KAVp/rkkOcwTuM0002-24-14M59:20:00 [facility] ([facility])Gastroenterology Progress NoteREPORT#:[id number] REPORT STATUS: SignedDATE:10/04/19 TIME: 1320 PATIENT: MAC AGUSTIN UNIT #: [id number]#: [id number] [address] [birth year] AGE: 74 SEX: F ATTEND: [...] Resp 18 10/03 1142 O2 Flow Rate 4.062506 10/02 2014 24 hour I O ending [...] MG 0900,1300,1700 PO Sodium Chloride 1,000 ML .W62O46P IV Pantoprazole 40 MG BID@0600,1800 PO Megestrol Acetate 800 MG DAILY PO Zinc Oxide 1 APPLIC BID TOPICAL Lidocaine 1 EA Q24H TOPICAL Insulin Human Lispro 0 AC HS SUBQ Morphine Sulfate 2 MG Q4H PRN PRN IV (DC) Acetaminophen 650 MG Q4H PRN PRN PO Heparin Sodium 5,000 UNIT Q12HR SUBQ Physical ExamGeneral appearance: awake, no acute distressHEENT: moist mucosal membranesCardiovascular: normal S1/K1Qvvfydgwfpc: clear to auscultationAbdomen: non-tender, normal bowel sounds, [...] % (Auto) (14.0 - 32.0 %) 29.3 [place] % (Auto) (4.8 - 9.0 %) 19.0 H Eos % (Auto) (0.3 - 3.7 %) 1.8 Baso % (Auto) (0.0 - 2.0 %) 0.4 Neut # (Auto) (2.0 - 7.6 x10 3/uL) 2.74 Lymph # (Auto) (1.0 - 3.8 x10 3/uL) 1.65 [place] # (Auto) (0.1 - 0.8 x10 3/uL) [...] agreeable.- Discharge per primary at 1321 RPT #:[id number] OF REPORTPRProgress Glum4663-37-98D95:20:00G.RPJI96488571-2828CPYrhduiplp for patient knpgAIKHLSKYGLAUHC3159-56-90U68:22:01 [facility] 2019-10-04 13:20:00 BEsoxpdfqpu79066326iNDI3NVRJkBywp3XifV20 D6IrhXj7JSH/ZK4qP fiB4h7BASlZiQ4p7U66wPv3Kos6816-74-21Z67:20:00 [facility])Gastroenterology Progress NoteREPORT#:[id number] REPORT STATUS: SignedDATE:10/04/19 TIME: 1320 PATIENT: MAC AGUSTIN UNIT #: [id number]#: [id number] [address] [birth year] AGE: 74 SEX: F ATTEND: Joel Myers [facility] AUTHOR: Arian Anderson * ALL edits or [...] Resp 18 10/03 1142 O2 Flow Rate 4.790626 10/02 2014 24 hour I O ending [...] MG 0900,1300,1700 PO Sodium Chloride 1,000 ML .F22V59C IV Pantoprazole 40 MG BID@0600,1800 PO Megestrol Acetate 800 MG DAILY PO Zinc Oxide 1 APPLIC BID TOPICAL Lidocaine 1 EA Q24H TOPICAL Insulin Human Lispro 0 AC HS SUBQ Morphine Sulfate 2 MG Q4H PRN PRN IV (DC) Acetaminophen 650 MG Q4H PRN PRN PO Heparin Sodium 5,000 UNIT Q12HR SUBQ Physical ExamGeneral appearance: awake, no acute distressHEENT: moist mucosal membranesCardiovascular: normal S1/N9Jeafzakiulf: clear to auscultationAbdomen: non-tender, normal bowel sounds, [...] % (Auto) (14.0 - 32.0 %) 29.3 [place] % (Auto) (4.8 - 9.0 %) 19.0 H Eos % (Auto) (0.3 - 3.7 %) 1.8 Baso % (Auto) (0.0 - 2.0 %) 0.4 Neut # (Auto) (2.0 - 7.6 x10 3/uL) 2.74 Lymph # (Auto) (1.0 - 3.8 x10 3/uL) 1.65 [place] # (Auto) (0.1 - 0.8 x10 3/uL) [...] the findings and plan as documented by PARACHUTE CROWN SEWER. at 1321 RPT #:[id number] OF REPORTPRProgress Ttci9916-60-87W08:20:00G.[id number] for patient jdrrUFSSYEELHVAEWG4605-31-41P20:01:57 [facility] 2019-10-04 13:20:00 [id number] roKzRalkNevp3q4z5 ChfcPsTh6j/Z2kiKGNEJfJRQdC2353-17-98D00:20:00 [facility] Progress NoteREPORT#:[id number] REPORT STATUS: SignedDATE:10/04/19 TIME: 1320 PATIENT: MAC AGUSTIN UNIT #: [id number]#: [id number] [address] [birth year] AGE: 74 SEX: F ATTEND: Joel Myers [facility] AUTHOR: Arian Anderson DESIGN ENGINEERING SPECIALIST * ALL edits or amendments must be [...] Resp 18 10/03 1142 O2 Flow Rate 4.144396 10/02 2014 24 hour I O ending [...] MG 0900,1300,1700 PO Sodium Chloride 1,000 ML .[id number] IV Pantoprazole 40 MG BID@0600,1800 PO Megestrol Acetate 800 MG DAILY PO Zinc Oxide 1 APPLIC BID TOPICAL Lidocaine 1 EA Q24H TOPICAL Insulin Human Lispro 0 AC HS SUBQ Morphine Sulfate 2 MG Q4H PRN PRN IV (DC) Acetaminophen 650 MG Q4H PRN PRN PO Heparin Sodium 5,000 UNIT Q12HR SUBQ Physical ExamGeneral appearance: awake, no acute distressHEENT: moist mucosal membranesCardiovascular: normal S1/R8Aaoyuhquxca: clear to auscultationAbdomen: non-tender, normal bowel sounds, [...] % (Auto) (14.0 - 32.0 %) 29.3 [place] % (Auto) (4.8 - 9.0 %) 19.0 H Eos % (Auto) (0.3 - 3.7 %) 1.8 Baso % (Auto) (0.0 - 2.0 %) 0.4 Neut # (Auto) (2.0 - 7.6 x10 3/uL) 2.74 Lymph # (Auto) (1.0 - 3.8 x10 3/uL) 1.65 [place] # (Auto) (0.1 - 0.8 x10 3/uL) [...] the findings and plan as documented by PARACHUTE CROWN SEWER. at 1321 at 0914 RPT #:[id number] OF REPORTPRProgress Eogv9371-60-77H92:20:00G.YRMQ41084754-8932WNOomaalmwd for patient njitKXJFXERNQXWCDS7774-26-44D34:14:54 [facility] 2019-10-04 08:17:00 [id number] CpdGHxASZpyiiZiZU 4YH/0BoIAELesbg1Er0YymFFE91583-73-49T68:17:00 [facility] ([facility])Hospitalist Progress NoteREPORT#:[id number] REPORT STATUS: SignedDATE:10/04/19 TIME: 816 PATIENT: MAC AGUSTIN UNIT #: [id number]#: [id number] ROOM/BED: 4431-1DOB: [birth year] AGE: 74 SEX: F [...] 18 114/76 88.3 100 10/02 2015 Nasal 4.674348 cannula 10/02 1913 97.3 57 18 117/71 [...] MG 0900,1300,1700 PO Sodium Chloride 1,000 ML .[id number] IV Magnesium Sulfate/Dextrose 100 ML ONCE ONE [...] (bLE +1), no clubbing, no cyanosisMusculoskeletal: normal inspectionNeuro/NETSUITE DEVELOPER: no motor deficitsSkin: no rashPsychiatry: normal affect [...] % (Auto) (14.0 - 32.0 %) 29.3 [place] % (Auto) (4.8 - 9.0 %) 19.0 H Eos % (Auto) (0.3 - 3.7 %) 1.8 Baso % (Auto) (0.0 - 2.0 %) 0.4 Neut # (Auto) (2.0 - 7.6 x10 3/uL) 2.74 Lymph # (Auto) (1.0 - 3.8 x10 3/uL) 1.65 [place] # (Auto) (0.1 - 0.8 x10 3/uL) [...] was found to have abnormal labs at [place], sent to ED for evaluation. In the [...] to 10.5On zosynTransfer to the floordw RN, PARACHUTE CROWN SEWER, consultantsCXR and telemetry personally reviewedFurther recs per [...] was more than 35 minutes at 0753 [facility] #:[id number] OF REPORTPRProgress Wvnn6858-52-71A93:17:00G.PLGS94334183-7475XVPlqohopsf for patient zhiuLZAWDFFANXRLIZ9695-03-61Q08:53:48 [facility] 2019-10-04 06:42:00 TBfyexbsdhx16544562YMB4Wn1ZRaTdNwWrwo1Nm P9BqMOywUNUY14tkG 6mJHdImKxTnoRIQbXN7FFit7jQ6605-29-64C37:42:00 [facility] ([facility])Nephrology Progress NoteREPORT#:[id number] REPORT STATUS: SignedDATE:10/04/19 TIME: 06 PATIENT: MAC AGUSTIN UNIT #: [id number]#: [id number] [address] [birth year] AGE: 74 SEX: F ATTEND: Joel Myers [facility] AUTHOR: Rabia Aguilar MD * ALL edits [...] 0401 36.5 55 17 101/68 79.0 100 10/02 2259 36.4 58 18 114/76 88.3 100 10/02 2014 Nasal 4.579780 cannula 10/02 1913 36.3 57 18 117/71 86.5 100 10/02 1101 36.8 65 17 106/68 81.0 99 10/02 0735 Nasal 4.024208 cannula 24 hour I O ending at 0700: 10/03 0700 10/02 1900 Intake Total 30 75 Output Total Balance 30 75 Intake, Oral 30 Intake, Oral 0 75 Supplement Number 5 Incontinent Voids MedicationsActive Meds + DC'd Last 24 HrsMidodrine 5 MG 0900,1300,1700 PO Sodium Chloride 1,000 ML .P94Y10Q IV Magnesium Sulfate/Dextrose 100 ML ONCE ONE [...] expansionAbdomen: softGenitourinary: no foleyExtremities: no edemaMusculoskeletal: normal inspectionNeuro/NETSUITE DEVELOPER: altered mental statusSkin: dry ResultsFindings/Data:Laboratory Tests 10/02 10/02 10/02 10/02 10/02 1912 1557 [...] (14.0 - 32.0 %) 30.3 33.1 H [place] % (Auto) (4.8 - 9.0 %) 14.0 H 8.1 Eos % (Auto) (0.3 - 3.7 %) 2.5 1.7 Baso % (Auto) (0.0 - 2.0 %) 0.4 0.2 Neut # (Auto) (2.0 - 7.6 x10 3/uL) 2.73 3.33 Lymph # (Auto) (1.0 - 3.8 x10 3/uL) 1.58 1.95 [place] # (Auto) (0.1 - 0.8 x10 3/uL) [...] STOOL Laboratory Tests 10/02 10/02 10/02 10/02 1912 1557 1057 [...] acid 1.2 within normal limit, urine output tzmed7453 cc with Lasix. Chest x-ray still pending. [...] stable sinceyesterday, continue IVF at 1053 RPT #:[id number] OF REPORTPRProgress Eais3008-29-16L92:42:00G.TFSV52304644-4062XTAtkgehnrm for patient ilcnZBHTAVIBCLQAIC5876-91-92V16:53:51 [facility] 2019-10-03 11:39:00 FMbophpcoad96461668fmlmYoVTOfIlYxZ43uKxu K7bXnApmeDpeAu81u LJVY72QidZF3Mr7cSBpY8GWaW37453-21-36F41:39:00 [facility] ([facility])Gastroenterology Progress NoteREPORT#:[id number] REPORT STATUS: SignedDATE:10/03/19 TIME: 1138 PATIENT: MAC AGUSTIN UNIT #: [id number]#: [id number] [address] [birth year] AGE: 74 SEX: F ATTEND: [...] Nasal cannula 10/02 0735 O2 Flow Rate 4.287707 10/02 0735 24 hour I O ending [...] no acute distressHEENT: moist mucosal membranesCardiovascular: normal S1/M7Xctbdcqrjza: clear to auscultationAbdomen: non-tender, normal bowel sounds, [...] - 100 PG/ML) 109.1 H Laboratory Tests 10/03 519 Hematology WBC (4.5 - 11.0 x10 3/uL) [...] % (Auto) (14.0 - 32.0 %) 30.3 [place] % (Auto) (4.8 - 9.0 %) 14.0 H Eos % (Auto) (0.3 - 3.7 %) 2.5 Baso % (Auto) (0.0 - 2.0 %) 0.4 Neut # (Auto) (2.0 - 7.6 x10 3/uL) 2.73 Lymph # (Auto) (1.0 - 3.8 x10 3/uL) 1.58 [place] # (Auto) (0.1 - 0.8 x10 3/uL) [...] and family is agreeable. at 1141 RPT #:[id number] OF REPORTPRProgress Jddg2465-52-90R70:39:00G.FTZQ54581492-5061PJXvrqcznct for patient tahwZIKDTSHWFJWTFS2884-80-76Y13:41:59 [facility] 2019-10-03 11:39:00 LBbtkpskzcc47311858+DhT9+xJAEXEi2ia1GjIZ XykN97jpFIwvIrrkF taRHnht/XHYQjJFqHSfjEh6Kz31889-03-54A95:39:00 [facility] Progress NoteREPORT#:[id number] REPORT STATUS: SignedDATE:10/03/19 TIME: 1139 PATIENT: MAC AGUSTIN UNIT #: [id number]#: [id number] [address] [birth year] AGE: 74 SEX: F ATTEND: Joel Myers [facility] AUTHOR: Arian Anderson * ALL edits or [...] Nasal cannula 10/02 0735 O2 Flow Rate 4.347887 10/02 0735 24 hour I O ending [...] no acute distressHEENT: moist mucosal membranesCardiovascular: normal S1/V9Itgchjrnwib: clear to auscultationAbdomen: non-tender, normal bowel sounds, [...] % (Auto) (14.0 - 32.0 %) 30.3 [place] % (Auto) (4.8 - 9.0 %) 14.0 H Eos % (Auto) (0.3 - 3.7 %) 2.5 Baso % (Auto) (0.0 - 2.0 %) 0.4 Neut # (Auto) (2.0 - 7.6 x10 3/uL) 2.73 Lymph # (Auto) (1.0 - 3.8 x10 3/uL) 1.58 [place] # (Auto) (0.1 - 0.8 x10 3/uL) [...] the findings and plan as documented by PARACHUTE CROWN SEWER. 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 * ALL edits or amendments must be [...] 10/02 1101 O2 Delivery Nasal cannula 10/02 07 O2 Flow Rate 4.275413 10/02 0735 24 hour I O ending [...] no acute distressHEENT: moist mucosal membranesCardiovascular: normal S1/F2Hxwwgcxpsxi: clear to auscultationAbdomen: non-tender, normal bowel sounds, soft, no distentionExtremities: edemaMusculoskeletal: normal inspectionSkin: dry ResultsFindings/Data:Laboratory Tests 10/03/19 0520:[Embedded Image Not Available]Laboratory Tests 10/02/22 0826 0520 0520 1949 1558Chemistry Sodium (134 [...] % (Auto) (14.0 - 32.0 %) 30.3 [place] % (Auto) (4.8 - 9.0 %) 14.0 H Eos % (Auto) (0.3 - 3.7 %) 2.5 Baso % (Auto) (0.0 - 2.0 %) 0.4 Neut # (Auto) (2.0 - 7.6 x10 3/uL) 2.73 Lymph # (Auto) (1.0 - 3.8 x10 3/uL) 1.58 [place] # (Auto) (0.1 - 0.8 x10 3/uL) [...] the findings and plan as documented by PARACHUTE CROWN SEWER. at 1141 at 0914 RPT #:[id number] OF REPORTPRProgress Fhbs4882-80-23L61:39:00G.LSJO22283830-0175YUUwjxcqupf for patient grldOYDUDSWBGDQYFH3463-12-48J03:14:43 [facility] 2019-10-03 11:36:00 ATcxexodczb72970995YS0IObULVUp1BX8OXu67n 5TrUFYMaX0YEZQrDh +J8oxa0W0CxmtF5dQnlxwi/mpZ9523-89-43J79:36:00 [facility] ([facility])Rehab Progress NoteREPORT#:[id number] REPORT STATUS: SignedDATE:10/03/19 TIME: 1136 PATIENT: MAC AGUSTIN UNIT #: [id number]#: [id number] [address] [birth year] AGE: 74 SEX: F ATTEND: Joel Myers [facility] AUTHOR: Lucy Ayon PA-C * ALL edits or amendments must be made on the electronic/computer document * SubjectiveChief complaint:Pt seen in bed. No complaints. States tired this a.m. + dmentia. Poor historian. Objective GeneralVS:Vital Signs: Date Time Temp Pulse Resp B/P B/P Pulse O2 O2 Flow FiO2 Mean Ox Delivery Rate 10/02 1101 98.2 65 17 106/68 81.0 99 10/02 0735 Nasal 4.389339 cannula 10/02 0442 98.2 66 17 93/59 [...] clearNeck: supple, no JVDCardiovascular: regular rate rhythm, S1/F0Ombitmalmlk: aerating well, clear bilaterallyAbdomen: bowel sounds present, non-distended, soft, soft, non-tenderSkin: dry, intactMusculoskeletal - general: Musculoskeletal - general: joints normal, range of motion normal, no swellingNeuro/NETSUITE DEVELOPER: altered mental status, alert, no motor deficits, [...] ResultsFindings/Data:Laboratory Tests: 10/02 10/02 10/02 10/01 10/01 0878 0510 8738 0640 1558Chemistry Sodium (134 - 147 mEq/L) 137 [...] % (Auto) (14.0 - 32.0 %) 30.3 [place] % (Auto) (4.8 - 9.0 %) 14.0 H Eos % (Auto) (0.3 - 3.7 %) 2.5 Baso % (Auto) (0.0 - 2.0 %) 0.4 Neut # (Auto) (2.0 - 7.6 x10 3/uL) 2.73 Lymph # (Auto) (1.0 - 3.8 x10 3/uL) 1.58 [place] # (Auto) (0.1 - 0.8 x10 3/uL) [...] acidosis with multiple electrolyte abnormalities including hypokalemia, hypo-[place] anemia, hypocalcemia, hypoalbuminemia. Patient then developed acute pulmonary vascular congestion is being diuresed. Plan: Physical therapy, Occupational Therapy and speech therapy have been consulted. Due to patient being an unreliable historian and moderate dementia she would benefit from returning to custodial facility following [facility]. I discussed with the patient's vqmqmojn-ok-zas who is on the chart as 1 of the contacts and she states their wish is for her to return to [facility] once medically cleared. 10/01: Encourage particpation with [...] plan discussed with patient. at 1142 RPT #:[id number] OF REPORTPRProgress Jszb7436-04-05X96:36:00G.BVDP24861509-9395AUVkhmzgpur for patient vhfxIUSTOSWYTPMPDY5495-26-72Z50:42:40 [facility] 2019-10-03 08:43:00 TZcdmzlkeia55686769S71Jh5UVLw4Sad4sUjHiR tG9jhS+yAXm/pqpvb Vcp9Y92T8zDrlyOqiSgixGQDf30603-87-79M92:43:00 [facility] ([facility])Hospitalist Progress NoteREPORT#:[id number] REPORT STATUS: SignedDATE:10/03/19 TIME: 08 PATIENT: MAC AGUSTIN UNIT #: [id number]#: [id number] [address] [birth year] AGE: 74 SEX: F ATTEND: [...] Mean Ox Delivery Rate 10/02 0735 Nasal 4.345964 cannula 10/02 0442 98.2 66 17 93/59 [...] (bLE +1), no clubbing, no cyanosisMusculoskeletal: normal inspectionNeuro/NETSUITE DEVELOPER: no motor deficitsSkin: no rashPsychiatry: normal affect [...] % (Auto) (14.0 - 32.0 %) 30.3 [place] % (Auto) (4.8 - 9.0 %) 14.0 H Eos % (Auto) (0.3 - 3.7 %) 2.5 Baso % (Auto) (0.0 - 2.0 %) 0.4 Neut # (Auto) (2.0 - 7.6 x10 3/uL) 2.73 Lymph # (Auto) (1.0 - 3.8 x10 3/uL) 1.58 [place] # (Auto) (0.1 - 0.8 x10 3/uL) [...] was found to have abnormal labs at [place], sent to ED for evaluation. In the [...] to 10.5On zosynTransfer to the floordw RN, PARACHUTE CROWN SEWER, consultantsCXR and telemetry personally reviewedFurther recs per [...] more than 35 minutes at 0846 RPT #:[id number] OF REPORTPRProgress Vdqv7786-05-02I74:43:00G.BARY75044577-1983RTWtugvrxvu for patient ybmfETBFUHTJTGCRVA9335-10-55E15:46:44 [facility] 2019-10-03 07:25:00 MBquwotgbpo85522826AosbxDK8Tpm9urqEgPJg9 j0+Vylvb4mAtFc9R2 7OXNKoVK74Y7hxehTxqO1PuFJ16342-44-13S21:25:00 [facility] ([facility])Nephrology Progress NoteREPORT#:[id number] REPORT STATUS: SignedDATE:10/03/19 TIME: 07 PATIENT: MAC AGUSTIN UNIT #: [id number]#: [id number] ROOM/BED: 4431[address]1DOB: [birth year] AGE: 74 SEX: F ATTEND: Joel Myers [facility] AUTHOR: Rabia Aguilar MD * ALL edits [...] 72.4 95 Nasal cannula 10/01 0840 Nasal 4.387990 cannula 10/01 0745 36.4 79 17 111/68 [...] expansionAbdomen: softGenitourinary: no foleyExtremities: no edemaMusculoskeletal: normal inspectionNeuro/NETSUITE DEVELOPER: altered mental statusSkin: dry ResultsFindings/Data:Laboratory Tests 10/02 10/02 10/02 10/01 10/01 0826 0520 0503 1949 1558 Chemistry Sodium (134 - 147 [...] 32.0 %) 30.3 33.1 H 10.0 L [place] % (Auto) (4.8 - 9.0 %) 14.0 H 8.1 5.7 Eos % (Auto) (0.3 - 3.7 %) 2.5 1.7 0.7 Baso % (Auto) (0.0 - 2.0 %) 0.4 0.2 0.2 Neut # (Auto) (2.0 - 7.6 x10 3/uL) 2.73 3.33 8.01 H Lymph # (Auto) (1.0 - 3.8 x10 3/uL) 1.58 1.95 0.97 L [place] # (Auto) (0.1 - 0.8 x10 3/uL) [...] - 11.2 %) 5.0 Laboratory Tests 10/01 10/01 10/01 10/01 10/01 1949 1558 1120 0740 0618 Chemistry Sodium (134 [...] - 32.0 %) 33.1 H 10.0 L [place] % (Auto) (4.8 - 9.0 %) 8.1 5.7 Eos % (Auto) (0.3 - 3.7 %) 1.7 0.7 Baso % (Auto) (0.0 - 2.0 %) 0.2 0.2 Neut # (Auto) (2.0 - 7.6 x10 3/uL) 3.33 8.01 H Lymph # (Auto) (1.0 - 3.8 x10 3/uL) 1.95 0.97 L [place] # (Auto) (0.1 - 0.8 x10 3/uL) [...] acid 1.2 within normal limit, urine output fwzxc8210 cc with Lasix. Chest x-ray still pending. [...] to 75 cc per h at 1155 RPT #:[id number] OF REPORTPRProgress Dctc3072-01-60G26:25:00G.UVIX81455348-8924CBYsqgvoqjz for patient nnpaZJYSANPIFCESSG5228-83-12M79:55:42 [facility] 2019-10-02 13:38:00 PAeyhafctfj09687684lIbTvTmZ3OefQmu+/Wi/s oiXyQYWSusiLKPczY 0+MPR3hDIt9tXSStgEzqCJwVhC2406-33-78Q94:38:00 [facility] Progress NoteREPORT#:[id number] REPORT STATUS: SignedDATE:10/02/19 TIME: 1338 PATIENT: MAC AGUSTIN UNIT #: [id number]#: [id number] [address] [birth year] AGE: 74 SEX: F ATTEND: Joel Myers [facility] AUTHOR: Arian Anderson * ALL edits or amendments must be made on the electronic/computer document * SubjectiveChief Complaint:weakHPI:No overt GI bleeding. Tolerating some diet but with poor appetite. Review of SystemsUnable to obtain due to:AMS Objective GeneralVS/I O:Last Documented: Result Date Time Pulse Ox 95 10/01 1123 B/P 101/58 10/01 1123 B/P Mean 72.4 10/01 1123 O2 Delivery Nasal cannula 10/01 1122 Temp 36.6 10/01 112 Pulse 68 10/01 1123 Resp 17 10/01 1123 O2 Flow Rate 2.197711 09/30 1930 24 hour I O ending [...] no acute distressHEENT: moist mucosal membranesCardiovascular: normal S1/M2Oztggvmdxfz: clear to auscultationAbdomen: non-tender, normal bowel sounds, [...] (Auto) (14.0 - 32.0 %) 33.1 H [place] % (Auto) (4.8 - 9.0 %) 8.1 Eos % (Auto) (0.3 - 3.7 %) 1.7 Baso % (Auto) (0.0 - 2.0 %) 0.2 Neut # (Auto) (2.0 - 7.6 x10 3/uL) 3.33 Lymph # (Auto) (1.0 - 3.8 x10 3/uL) 1.95 [place] # (Auto) (0.1 - 0.8 x10 3/uL) [...] evidence of active bleeding at 1409 RPT #:[id number] OF REPORTPRProgress Lnfc8889-74-75M08:38:00G.SMPE60578850-0637ZNVhdhrltcu for patient jiibLOKLDNVNBHVGYH8838-02-18J18:09:50 [facility] 2019-10-02 13:38:00 AAjqapuqjwv01671257KMEqBDGUVDVLmc0ihH2I+ gxIWUIJq1be/mEKjt STDRja41H08N7Mo5EDm6/66yT/7975-54-70Y18:38:00 [facility] ([facility])Gastroenterology Progress NoteREPORT#:[id number] REPORT STATUS: SignedDATE:10/02/19 TIME: 1338 PATIENT: MAC AGUSTIN UNIT #: [id number]#: [id number] [address] [birth year] AGE: 74 SEX: F ATTEND: Joel Myers [facility] AUTHOR: Arian Anderson 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 ENGINEERING SPECIALIST * ALL edits or amendments must be [...] Resp 17 10/01 1123 O2 Flow Rate 2.863193 09/30 1930 24 hour I O ending [...] no acute distressHEENT: moist mucosal membranesCardiovascular: normal S1/L2Faixyjcwkmi: clear to auscultationAbdomen: non-tender, normal bowel sounds, [...] (Auto) (14.0 - 32.0 %) 33.1 H [place] % (Auto) (4.8 - 9.0 %) 8.1 Eos % (Auto) (0.3 - 3.7 %) 1.7 Baso % (Auto) (0.0 - 2.0 %) 0.2 Neut # (Auto) (2.0 - 7.6 x10 3/uL) 3.33 Lymph # (Auto) (1.0 - 3.8 x10 3/uL) 1.95 [place] # (Auto) (0.1 - 0.8 x10 3/uL) [...] the findings and plan as documented by PARACHUTE CROWN SEWER. at 1409 RPT #:[id number] OF REPORTPRProgress Aast9841-78-82B24:38:00G.GFDG94868775-0887ZXKupnsevyw for patient mkthAECRSRFARRWWCC7733-55-67P75:01:37 [facility] 2019-10-02 13:38:00 NKrmfgawqsr38252422GM4qQmLMH3/3B4OLQ1Fcj ueWFqITXqBqIitef1 P6KFZKUnqY8W1DoW+qkCK/fzty2590-26-31Z76:38:00 [facility] ([facility])Gastroenterology Progress NoteREPORT#:[id number] REPORT STATUS: SignedDATE:10/02/19 TIME: 1337 PATIENT: MAC AGUSTIN UNIT #: [id number]#: [id number] [address] [birth year] AGE: 74 SEX: F ATTEND: Joel Myers [facility] AUTHOR: Arian Anderson * ALL edits or amendments must be made on the electronic/computer document * Arian Anderson 10/02/19 1338:SubjectiveChief Complaint:weakHPI:No overt GI bleeding. Tolerating some diet but with poor appetite. Review of SystemsUnable to obtain due to:AMS Objective GeneralVS/I O:Last Documented: Result Date Time Pulse Ox 95 10/01 1123 B/P 101/58 10/01 1123 B/P Mean 72.4 10/01 1122 O2 Delivery Nasal cannula 10/01 1122 Temp 36.6 10/01 112 Pulse 68 10/01 1123 Resp 17 10/01 1123 O2 Flow Rate 2.860855 09/30 1930 24 hour I O ending [...] no acute distressHEENT: moist mucosal membranesCardiovascular: normal S1/X7Jlwuzxtwbth: clear to auscultationAbdomen: non-tender, normal bowel sounds, [...] (Auto) (14.0 - 32.0 %) 33.1 H [place] % (Auto) (4.8 - 9.0 %) 8.1 Eos % (Auto) (0.3 - 3.7 %) 1.7 Baso % (Auto) (0.0 - 2.0 %) 0.2 Neut # (Auto) (2.0 - 7.6 x10 3/uL) 3.33 Lymph # (Auto) (1.0 - 3.8 x10 3/uL) 1.95 [place] # (Auto) (0.1 - 0.8 x10 3/uL) [...] the findings and plan as documented by PARACHUTE CROWN SEWER. at 1409 at 0914 RPT #:[id number] OF REPORTPRProgress Qmvx4855-81-55B79:38:00G.NERG22320405-0087WPBpwvbltij for patient tligGATFTCYDXCXZPQ8968-74-10C18:14:31 [facility] 2019-10-02 09:54:00 KYxnnzlhmtn223445600KHnPOQouk9qlXqLcqknb wfFctN32CFjFMT4cm D4q//g/0CNcrZRC/DdaQdq0zzJ9347-27-07Y99:54:00 [facility] ([facility])Rehab Progress NoteREPORT#:[id number] REPORT STATUS: SignedDATE:10/02/19 TIME: 09 PATIENT: MAC AGUSTIN UNIT #: [id number]#: [id number] [address] [birth year] AGE: 74 SEX: F ATTEND: Joel Myers [facility] AUTHOR: Lucy Ayon PA-C * ALL edits [...] 18 103/67 79.0 99 09/30 1930 Nasal 2.358066 cannula 09/30 1919 97.7 76 18 94/62 [...] clearNeck: supple, no JVDCardiovascular: regular rate rhythm, S1/M3Ytdmjijcmru: aerating well, clear bilaterallyAbdomen: bowel sounds present, non-distended, soft, soft, non-tenderSkin: dry, intactMusculoskeletal - general: Musculoskeletal - general: joints normal, range of motion normal, no swellingNeuro/NETSUITE DEVELOPER: altered mental status, alert, no motor deficits, no sensory deficits Functional ProgressFunctional progress: Patient/Family Goals: TO GET STRONGER. Rehabilitation Potential: Good for goals Discharge Plan: POST ACUTE THERAPY Plan of Care, Type: Physical Therapy Treatment Details: Y Comment: HIGH COMPLEX PT EVAL DUE TO MUL. COMORBIDITIES AND FUNCTIONAL PERFORMANCE DEFICITS. PATIENT WILL BENEFIT WITH [facility] TO ADDRESS MOBILITY LIMITATIONS. If this [...] (Auto) (14.0 - 32.0 %) 33.1 H [place] % (Auto) (4.8 - 9.0 %) 8.1 Eos % (Auto) (0.3 - 3.7 %) 1.7 Baso % (Auto) (0.0 - 2.0 %) 0.2 Neut # (Auto) (2.0 - 7.6 x10 3/uL) 3.33 Lymph # (Auto) (1.0 - 3.8 x10 3/uL) 1.95 [place] # (Auto) (0.1 - 0.8 x10 3/uL) [...] acidosis with multiple electrolyte abnormalities including hypokalemia, hypo-[place] anemia, hypocalcemia, hypoalbuminemia. Patient then developed acute pulmonary vascular congestion is being diuresed. Plan: Physical therapy, Occupational Therapy and speech therapy have been consulted. Due to patient being an unreliable historian and moderate dementia she would benefit from returning to custodial facility following her [facility] stay. I discussed with the patient's xovapcuz-bq-cbe who is on the chart as 1 of the contacts and she states their wish is for her to return to [facility] once medically cleared. 10/01: Encourage particpation with therpay.C. Diff not collected. Pt hgb stable.SNF once ready to be discharged. Rehab attestation:Face to face exam completed. Treatment plan discussed with patient. at [address] [place] [address] #:[id number] OF REPORTPRProgress Exmb1543-93-38B65:54:00G.BDMH14237146-3299DTDcudsjhhu for patient fqcnOBFZYDFQRGWZVD2676-02-87B10:12:25 [facility] 2019-10-02 07:20:00 ZXxzsijeqhj197632402gn+6Pcb5w/KfC/bTBcNf zBJgx9BkvDJF8ABra WMhTE44RNSIQZNhOqJEBC9jO0j5281-32-01X39:20:00 [facility] ([facility] Progress NoteREPORT#:[id number] REPORT STATUS: SignedDATE:10/02/19 TIME: 719 PATIENT: MAC AGUSTIN UNIT #: [id number]#: [id number] ROOM/BED: 4431-1DOB: [birth year] AGE: 74 SEX: F ATTEND: Joel Myers [facility] AUTHOR: Rabia Aguilar MD * ALL edits [...] 18 103/67 79.0 99 09/30 1930 Nasal 2.692551 cannula 09/30 1919 36.5 76 18 94/62 73.1 97 09/30 1525 36.7 72 18 109/70 82.9 97 09/30 1146 36.5 69 18 107/71 83.0 97 09/30 0753 36.4 66 18 101/67 78.3 95 09/30 0730 Nasal 2.447441 cannula 24 hour I O ending at [...] expansionAbdomen: softGenitourinary: ballard, urineExtremities: no edemaMusculoskeletal: normal inspectionNeuro/NETSUITE DEVELOPER: altered mental statusSkin: dry ResultsFindings/Data:Laboratory Tests 09/30 [...] - 32.0 %) 10.0 L 12.7 L [place] % (Auto) (4.8 - 9.0 %) 5.7 5.2 Eos % (Auto) (0.3 - 3.7 %) 0.7 0.5 Baso % (Auto) (0.0 - 2.0 %) 0.2 0.1 Neut # (Auto) (2.0 - 7.6 x10 3/uL) 8.01 H 8.57 H Lymph # (Auto) (1.0 - 3.8 x10 3/uL) 0.97 L 1.34 [place] # (Auto) (0.1 - 0.8 x10 3/uL) [...] source is unclear, rule out ischemic bowel, Joanien, will need to review her medications if [...] acid 1.2 within normal limit, urine output dhxxs5579 cc with Lasix. Chest x-ray still pending. [...] check post void resdiual at 1202 RPT #:[id number] OF REPORTPRProgress Pmsc8093-27-42L38:20:00G.XMGZ90024592-9631SEKnldprouc for patient yqfiGKSQJSCBJZJMLD9073-17-15F55:03:00 [facility] 2019-10-02 07:20:00 YTzdjjfbdnu64593833/oE91gEGeG6PIEMDmMTx4 peMzu13fHhzVA5qvs pRYC5YfiWVsM///1ZNRzoX0GAa0688-61-48Q65:20:00 [facility] ([facility])Nephrology Progress NoteREPORT#:[id number] REPORT STATUS: SignedDATE:10/02/19 TIME: 07 PATIENT: MAC AGUSTIN UNIT #: [id number]#: [id number] [address] AGE: 74 SEX: F ATTEND: [...] 18 103/67 79.0 99 09/30 1930 Nasal 2.317672 cannula 09/30 1919 36.5 76 18 94/62 73.1 97 09/30 1525 36.7 72 18 109/70 82.9 97 09/30 1146 36.5 69 18 107/71 83.0 97 09/30 0753 36.4 66 18 101/67 78.3 95 09/30 0730 Nasal 2.834097 cannula 24 hour I O ending at [...] expansionAbdomen: softGenitourinary: ballard, urineExtremities: no edemaMusculoskeletal: normal inspectionNeuro/NETSUITE DEVELOPER: altered mental statusSkin: dry ResultsFindings/Data:Laboratory Tests 09/30 [...] INR (0.8 - 1.2) 1.3 H PTT ([place]) (25.0 - 39.5 Seconds) 28.5 PT Patient/Control [...] - 32.0 %) 10.0 L 12.7 L [place] % (Auto) (4.8 - 9.0 %) 5.7 5.2 Eos % (Auto) (0.3 - 3.7 %) 0.7 0.5 Baso % (Auto) (0.0 - 2.0 %) 0.2 0.1 Neut # (Auto) (2.0 - 7.6 x10 3/uL) 8.01 H 8.57 H Lymph # (Auto) (1.0 - 3.8 x10 3/uL) 0.97 L 1.34 [place] # (Auto) (0.1 - 0.8 x10 3/uL) [...] source is unclear, rule out ischemic bowel, Cherisyn, will need to review her medications if [...] acid 1.2 within normal limit, urine output qkmcs8273 cc with Lasix. Chest x-ray still pending. [...] 1 g IV x1. at 0849 RPT #:[id number] OF REPORTPRProgress Phvn4909-43-53U24:20:00G.FBCN43572364-1423KWUasnlkuhm for patient zovoCFMQSDEXZCOFVQ7819-77-45M83:50:05 [facility] 2019-10-02 07:09:00 FDnmyfgdsat56759232BWEcAnGjj2BjAOJ9JIawb ACbFQvwDV5wA8pT2n SqmMaxvQVgZYtysGs2lQpWq6QF8351-41-85O38:09:00 [facility] Progress NoteREPORT#:[id number] REPORT STATUS: SignedDATE:10/02/19 TIME: 708 PATIENT: MAC AGUSTIN UNIT #: [id number]#: [id number] [address] [birth year] AGE: 74 SEX: F ATTEND: [...] 18 103/67 79.0 99 09/30 1930 Nasal 2.244317 cannula 09/30 1919 97.7 76 18 94/62 73.1 97 09/30 1525 98.1 72 18 109/70 82.9 97 09/30 1146 97.7 69 18 107/71 83.0 97 09/30 0753 97.5 66 18 101/67 78.3 95 09/30 0730 Nasal 2.793489 cannula 24 hour I O ending at [...] (bLE +1), no clubbing, no cyanosisMusculoskeletal: normal inspectionNeuro/NETSUITE DEVELOPER: no motor deficitsSkin: no rashPsychiatry: normal affect, [...] was found to have abnormal labs at [place], sent to ED for evaluation. In the [...] to 10.5On zosynTransfer to the floordw RN, PARACHUTE CROWN SEWER, consultantsCXR and telemetry personally reviewedFurther recs per [...] more than 35 minutes at 0711 RPT #:[id number] OF REPORTPRProgress Duhd2805-89-38B81:09:00G.RCVS20746345-3088VEWqjjgviow for patient bpmtXZPUPUAECJPIID8424-27-10O40:12:19 [facility] 2019-10-01 14:00:00 OOypcehjbxd08504715SptwgKQ74fFhGcHnEpc70 gvCPV1ji8Le7eFuqB MLW9B+9qWIJAFsa6orVTNG0qls4869-81-17O24:00:00 [facility] Progress NoteREPORT#:[id number] REPORT STATUS: SignedDATE:10/01/19 TIME: 1400 PATIENT: MAC AGUSTIN UNIT #: [id number]#: [id number] [address] [birth year] AGE: 74 SEX: F ATTEND: Joel Myers [facility] AUTHOR: Arian Anderson * ALL edits or [...] Delivery Nasal cannula 09/294 O2 Flow Rate 4.944117 09/29 2354 24 hour I O ending [...] appearance: awake, orientedHEENT: moist mucosal membranesCardiovascular: normal S1/V3Mfodjebdsba: clear to auscultationAbdomen: non-tender, normal bowel sounds, soft, no distentionExtremities: edemaMusculoskeletal: normal inspectionSkin: dry ResultsFindings/Data:Laboratory Tests 10/01/19 0400:[Embedded Image Not Available]Laboratory Tests 09/30 09/30 09/30 09/29 09/29 1145 0752 0400 2019 1620 Chemistry Sodium (134 - 147 mEq/L) [...] (Auto) (14.0 - 32.0 %) 10.0 L [place] % (Auto) (4.8 - 9.0 %) 5.7 Eos % (Auto) (0.3 - 3.7 %) 0.7 Baso % (Auto) (0.0 - 2.0 %) 0.2 Neut # (Auto) (2.0 - 7.6 x10 3/uL) 8.01 H Lymph # (Auto) (1.0 - 3.8 x10 3/uL) 0.97 L [place] # (Auto) (0.1 - 0.8 x10 3/uL) [...] not improve- Supportive care at 1403 RPT #:[id number] OF REPORTPRProgress Ycbs3003-95-90H84:00:00G.AJKB73928129-6297MYZvgmjuqtw for patient nlvyTARHHFVCIWDRNE3191-53-40L30:03:35 [facility] 2019-10-01 14:00:00 MTwsdwowyvj58014027vi6hw7LlfalSmRHQgw4LY RaWc3VKGdmckBqKPd hD5C/FhC2tuUSiH5zP0KR4V6z48614-14-83A43:00:00 [facility] ([facility])Gastroenterology Progress NoteREPORT#:[id number] REPORT STATUS: SignedDATE:10/01/19 TIME: 1400 PATIENT: MAC AGUSTIN UNIT #: [id number]#: [id number] [address] [birth year] AGE: 74 SEX: F ATTEND: Joel Myers [facility] AUTHOR: Arian Anderson * ALL edits or [...] Nasal cannula 09/29 2354 O2 Flow Rate 4.956685 09/29 2354 24 hour I O ending [...] appearance: awake, orientedHEENT: moist mucosal membranesCardiovascular: normal S1/F1Fckgnxelioo: clear to auscultationAbdomen: non-tender, normal bowel sounds, [...] (Auto) (14.0 - 32.0 %) 10.0 L [place] % (Auto) (4.8 - 9.0 %) 5.7 Eos % (Auto) (0.3 - 3.7 %) 0.7 Baso % (Auto) (0.0 - 2.0 %) 0.2 Neut # (Auto) (2.0 - 7.6 x10 3/uL) 8.01 H Lymph # (Auto) (1.0 - 3.8 x10 3/uL) 0.97 L [place] # (Auto) (0.1 - 0.8 x10 3/uL) [...] the findings and plan as documented by PARACHUTE CROWN SEWER. at 1403 RPT #:[id number] OF REPORTPRProgress Jyva8458-24-26F07:00:00G.MBIU76361367-5313QZZfscayebk for patient hfvzTHVTNATAXXLZFV1309-57-11Q66:01:36 [facility] 2019-10-01 14:00:00 ZJpyyvnpzon76273449HkV7vz+VgUHjoXLwiTdLU zvw72ORDNoVzMQk9c jdqlNthZ+S527LHMpd1YSpa1vt6882-66-81J41:00:00 [facility] Progress NoteREPORT#:[id number] REPORT STATUS: SignedDATE:10/01/19 TIME: 1400 PATIENT: MAC AGUSTIN UNIT #: [id number]#: [id number] [address] [birth year] AGE: 74 SEX: F ATTEND: Joel Myers [facility] AUTHOR: Arian Anderson * ALL edits or [...] 09/30 1146 O2 Delivery Nasal cannula 09/29 2353 O2 Flow Rate 4.441680 09/294 24 hour I O ending at 0700: [...] appearance: awake, orientedHEENT: moist mucosal membranesCardiovascular: normal S1/W1Rpbnmerysfc: clear to auscultationAbdomen: non-tender, normal bowel sounds, [...] (Auto) (14.0 - 32.0 %) 10.0 L [place] % (Auto) (4.8 - 9.0 %) 5.7 Eos % (Auto) (0.3 - 3.7 %) 0.7 Baso % (Auto) (0.0 - 2.0 %) 0.2 Neut # (Auto) (2.0 - 7.6 x10 3/uL) 8.01 H Lymph # (Auto) (1.0 - 3.8 x10 3/uL) 0.97 L [place] # (Auto) (0.1 - 0.8 x10 3/uL) [...] the findings and plan as documented by [employer]ACH[employer] CROWN SEWER. at 1403 at 0913 [facility] #:[id number] OF REPORTPRProgress Tahu4872-16-91Y25:00:00G.EGTK79727994-1418JUUcaqqvjgr for patient kzfzSIBWWEZRGKIYBQ5746-29-00K45:14:12 [facility] 2019-10-01 11:45:00 EGpprngjnto130719407arbTOXbyXkcypZc6F2wD pmJ1nhQ5+Badvuu3j 8X0tT7MCIA0Gjtfxa5LaHAkmk15329-13-29L91:45:00 [facility] ([facility])Acute Rehab ConsultREPORT#:[id number] REPORT STATUS: SignedDATE:10/01/19 TIME: 1145 PATIENT: MAC AGUSTIN UNIT #: [id number]#: [id number] [address] [birth year] AGE: 74 SEX: F ATTEND: [...] incontinence, rheumatoidarthritis, frequent UTI was brought from [facility]. She is a intermediate frame tender resident secondary to Alzheimer's dementia with behavioral [...] social history:Lives is a long-term resident at [facility]. Has significant Alzheimer's dementia. Ambulates with a [...] 09/30 (ZINC OXIDE 30 GM TOPICAL 10/28 2059 1011 OINTMENT) Allergies:Coded Allergies:penicillamine (UNKNOWN 09/26/19) Objective Physical ExamVS:Last Documented: Result Date Time Pulse Ox 97 09/30 1146 B/P 107/71 09/30 1146 B/P Mean 83.0 09/30 1146 Temp 97.7 09/30 1146 Pulse 69 09/30 1146 Resp 18 09/30 1146 O2 Delivery Nasal cannula 09/29 2354 O2 Flow Rate 4.047892 09/29 2354 Patient Weight Weight (lb): 167Weight (oz): 15.88Weight (kg): 76.200 General appearance: alert, awakePsych: normal affectHEENT: anicteric, mucosal membranes moist, sclera clearNeck: supple, no JVDCardiovascular: regular rate rhythm, S1/M6Umimdamatbf: aerating well, clear bilaterallyAbdomen: bowel sounds present, non-distended, soft, soft, non-tenderSkin: dry, intactMusculoskeletal - general: Musculoskeletal - general: joints normal, range of motion normal, no swellingNeuro/NETSUITE DEVELOPER: altered mental status, alert, no motor deficits, no sensory deficits ResultsFindings/Data:Laboratory Tests: 09/30 09/30 09/29 09/29 0752 0400 2020 1620 Chemistry Sodium (134 [...] (Auto) (14.0 - 32.0 %) 10.0 L [place] % (Auto) (4.8 - 9.0 %) 5.7 Eos % (Auto) (0.3 - 3.7 %) 0.7 Baso % (Auto) (0.0 - 2.0 %) 0.2 Neut # (Auto) (2.0 - 7.6 x10 3/uL) 8.01 H Lymph # (Auto) (1.0 - 3.8 x10 3/uL) 0.97 L [place] # (Auto) (0.1 - 0.8 x10 3/uL) [...] (0.0 - 0.1 x10 3/uL) 0.00 Microbiology:09/29 1444 STOOL: Giardia Antigen (ANA) - ORD09/29 1444 STOOL: Ova and Parasites - ORD09/29 1444 STOOL: Stool Leukocytes - ORD09/29 1444 STOOL: Campylobacter Culture - ORD09/29 1444 STOOL: Escherichia coli 0157 Culture - ORD09/29 1444 STOOL: Stool Culture - ORD Radiology data:Recent Impressions-Last 74 HrsRADIOLOGY - XR CHEST 1 V 09/28 0541 Report Impression - Status: SIGNED Entered: 09/29/2019 0712 IMPRESSION:1. Severe pulmonary vascular congestion and or pulmonary edema withdeveloping moderate bilateral layering pleural effusions.2. Developing dense left retrocardiac opacity, probably representingatelectasis or early consolidation.3. Enlarged cardiac silhouette. SL: LGDZX1ZNGU49Qeyfazcwpp By: [email or web address] - Scott Duran M.D.RADIOLOGY - XR ABDOMEN 1V (KUB) 09/29 0514 Report Impression - Status: SIGNED Entered: 09/30/2019 0736 IMPRESSION:Nonobstructed bowel gas pattern. SL: RKWJW6YIOU18Rksmvlbxiw By: Liam Dumont M.D.RADIOLOGY - XR CHEST 1 V 09/29 0514 Report Impression - Status: SIGNED Entered: 09/30/2019 0737 IMPRESSION:1. Decreasing bilateral pleural effusions with decreasing bibasilaratelectasis/infiltrates.2. Decreasing interstitial edema.3. Removal of right jugular line. SL: AJMTV4PTUW45Rarvzztzcc By: Liam Dumont M.D. Diagnosis, Assessment PlanProblem List/A P: [...] dementia she would benefit from returning to custodial facility following [facility]. I discussed with the patient's tpfxinzx-gv-dkr who is on the chart as 1 of the contacts and she states their wish is for her to return to [facility] once medically cleared. Thank you for allowing us to participate in the care of this patient. We will continue to follow along and make further rehab recommendations. at 1155 [facility] #:[id number] OF REPORTQKLzqyttlbsjom2886-86-26W56:45:00G.BHJK72215848- 0494AVAvailable for patient gpadNVNVPMHXUHXAWI9034-23-65U07:55:27 [facility] 2019-10-01 08:01:00 UWlyuwvdaqn34214625YRJICENx1g7xldibZG59j C9nYq7w2Zar828zMV iJ/KikKCWtgyA86+GiUmDiACaf2152-76-96N15:01:00 [facility] ([facility])Hospitalist Progress NoteREPORT#:[id number] REPORT STATUS: SignedDATE:10/01/19 TIME: 0801 PATIENT: MAC AGUSTIN UNIT #: [id number]#: [id number] [address] [birth year] AGE: 74 SEX: F [facility]: [facility] Myers MD * ALL edits [...] 18 111/73 85.6 100 09/29 2354 Nasal 4.684904 cannula 09/29 2258 97.5 54 18 113/74 87.0 100 09/29 1948 97.5 60 18 103/66 78.6 100 09/29 1830 58 11 120/58 83 100 09/29 1800 58 11 107/61 76 100 Nasal 4.063328 cannula 09/29 1730 58 12 114/58 83 100 09/29 1700 58 11 96/50 65 100 Nasal 4.742840 cannula 09/29 1630 57 12 109/55 78 100 09/29 1600 97.5 63 19 99/55 69 100 Nasal 4.229452 cannula 09/29 1530 59 10 93/55 69 100 09/29 1500 60 11 93/50 64 100 Nasal 4.850247 cannula 09/29 1430 59 12 97/52 68 100 09/29 1400 60 11 112/57 75 100 Nasal 4.686238 cannula 09/29 1332 58 10 112/57 82 100 09/29 1300 60 12 99/53 68 100 Nasal 4.205087 cannula 09/29 1231 69 14 125/60 86 100 09/29 1200 97.5 59 10 98/56 70 100 Nasal 4.895562 cannula 09/29 1131 58 10 126/57 82 100 09/29 1100 56 13 126/58 80 100 Nasal 4.335041 cannula 09/29 1031 55 11 122/60 87 100 09/29 1000 60 12 121/58 79 100 Nasal 4.157193 cannula 09/29 0930 56 14 101/52 73 100 09/29 0900 57 10 107/53 71 100 Nasal 4.978941 cannula 09/29 0831 61 11 84/48 61 100 09/29 0825 100 Nasal 4.074087 cannula 24 hour I O ending at [...] distentionExtremities: edema (bLE +1), no clubbing, no cyanosisNeuro/NETSUITE DEVELOPER: no motor deficitsSkin: no rashPsychiatry: normal affect, normal mood ResultsFindings/Data:Laboratory Tests 09/30 1620 1147 0819 Chemistry Sodium (134 - [...] was found to have abnormal labs at [place], sent to ED for evaluation. In the [...] to 10.5On zosynTransfer to the floordw RN, [employer]ACH[employer] SEWER, consultantsCXR and telemetry personally reviewedFurther recs per [...] more than 35 minutes at 0807 RPT #:[id number] OF REPORTPRProgress Hgsg3535-99-09Y88:01:00G.YRTC12016941-7662MVYomujjczj for patient fackOOPQMPJKUHTRMM5088-00-14Z15:08:19 [facility] 2019-10-01 07:00:00 EStomydyyxx652688194YYZcWitmQB88zov8Npci BdsiOD0rI8K/Rs2BT zINGZLnM6wlXw9noJviID1iT3E1742-09-62J08:00:00 [facility])Nephrology Progress NoteREPORT#:[id number] REPORT STATUS: SignedDATE:10/01/19 TIME: 0700 PATIENT: MAC AGUSTIN UNIT #: [id number]#: [id number] [address] [birth year] AGE: 74 SEX: F ATTEND: Joel Myers [facility] AUTHOR: Rabia Aguilar MD * ALL edits or amendments must be made on the electronic/computer document * SubjectiveChief Complaint:AMS/Lactic acidosis/AKIUnable to obtain: dementiaComments:Patient seen and evaluated, HPI no change from initial, feels okay, eating breakfast Review of SystemsUnable to obtain due to:Dementia Objective GeneralVS/I O:Vital Signs: Date Time Temp Pulse Resp B/P B/P Pulse O2 O2 Flow FiO2 Mean Ox Delivery Rate 09/307 36.6 69 18 111/73 85.6 100 09/29 2354 Nasal 4.289653 cannula 09/298 36.4 54 18 113/74 87.0 100 09/29 1948 36.4 60 18 103/66 78.6 100 04/20 1830 58 11 120/58 83 100 04/20 1800 58 11 107/61 76 100 Nasal 4.006338 cannula 04 1730 58 12 114/58 83 100 04/20 1700 58 11 96/50 65 100 Nasal 4.327244 cannula 20 1630 57 12 109/55 78 100 04/20 1600 36.4 63 19 99/55 69 100 Nasal 4.450314 cannula 09/29 1530 59 10 93/55 69 100 04/20 1500 60 11 93/50 64 100 Nasal 4.629575 cannula 09/29 1430 59 12 97/52 68 100 04/20 1400 60 11 112/57 75 100 Nasal 4.039279 cannula 09/29 1332 58 10 112/57 82 100 04/ 1300 60 12 99/53 68 100 Nasal 4.552119 cannula 09/29 1231 69 14 125/60 86 100 04/ 1200 36.4 59 10 98/56 70 100 Nasal 4.184292 cannula 09/29 1131 58 10 126/57 82 100 04/ 1100 56 13 126/58 80 100 Nasal 4.643969 cannula 09/29 1031 55 11 122/60 87 100 04/ 1000 60 12 121/58 79 100 Nasal 4.683446 cannula 09/29 0930 56 14 101/52 73 100 04/20 0900 57 10 107/53 71 100 Nasal 4.641353 cannula 09/29 0831 61 11 84/48 61 100 04/ 0825 100 Nasal 4.456018 cannula 09/29 0800 Nasal 4.069969 cannula 09/29 0800 36.4 58 13 129/59 82 100 Nasal 4.454554 cannula 09/29 0730 60 11 113/56 80 [...] expansionAbdomen: softGenitourinary: ballard, urineExtremities: no edemaMusculoskeletal: normal inspectionNeuro/NETSUITE DEVELOPER: altered mental statusSkin: dry ResultsFindings/Data:Laboratory Tests 09/27 [...] H 09/29 09/29 09/29 09/29 0819 0810 0597 5680 Chemistry Sodium (134 - 147 mEq/L) 140 [...] INR (0.8 - 1.2) 1.3 H PTT ([place]) (25.0 - 39.5 Seconds) 28.5 PT Patient/Control [...] - 32.0 %) 12.7 L 7.1 L [place] % (Auto) (4.8 - 9.0 %) 5.2 4.6 L Eos % (Auto) (0.3 - 3.7 %) 0.5 0.1 L Baso % (Auto) (0.0 - 2.0 %) 0.1 0.1 Neut # (Auto) (2.0 - 7.6 x10 3/uL) 8.57 H 11.76 H Lymph # (Auto) (1.0 - 3.8 x10 3/uL) 1.34 0.96 L [place] # (Auto) (0.1 - 0.8 x10 3/uL) [...] pH (5.0 - 7.0) 5.0 Ur Specific [place] (1.005 - 1.030) 1.006 Urine Protein (NEGATIVE) [...] 0514 Report Impression - Status: SIGNED Entered: 09/30/2019 0736 IMPRESSION:Nonobstructed bowel gas pattern. SL: QFATB4RWWG19Iylwknhcmq By: [email or web address] - Jose Kiel Miles, M.D.RADIOLOGY - XR CHEST 1 V 09/29 0514 Report Impression - Status: SIGNED Entered: 09/30/2019 0737 IMPRESSION:1. Decreasing bilateral pleural effusions with decreasing bibasilaratelectasis/infiltrates.2. Decreasing interstitial edema.3. Removal of right jugular line. SL: COKQX9TGGN81Xepvodeqfi By: [email or web address] - Jose Dumont M.D. Laboratory Tests 09/29 1620 1147 [...] acid 1.2 within normal limit, urine output oexdg3523 cc with Lasix. Chest x-ray still pending. [...] related to volume contraction. at 1124 RPT #:[id number] OF REPORTPRProgress Jepq3491-03-51L33:00:00G.GOCF88808404-2127JBEridwuobe for patient gmirGTHAHXOWEAKYBD5395-30-25N89:24:26 [facility] 2019-09-30 14:56:00 ZPmygvwipyf31622164OFOYPXJwIEHKHRyx2i9+3 ODt4NCNmKp6sRCMj9 bMqOI4df17gX/w5C8GzOQaHUZY2145-64-26E33:56:00 [facility] ([facility])Hospitalist Progress NoteREPORT#:[id number] REPORT STATUS: SignedDATE:09/30/19 TIME: 1456 PATIENT: MAC AGUSTIN UNIT #: [id number]#: [id number] [address] [birth year] AGE: 74 SEX: F ATTEND: Joel Myers [facility] AUTHOR: Po Carvajal MD * ALL edits [...] 1400 60 11 112/57 75 100 Nasal 4.561220 cannula 09/29 1332 58 10 112/57 82 100 09/29 1300 60 12 99/53 68 100 Nasal 4.988203 cannula 09/29 1231 69 14 125/60 86 100 09/29 1200 36.4 59 10 98/56 70 100 Nasal 4.091620 cannula 09/29 1131 58 10 126/57 82 100 04 1100 56 13 126/58 80 100 Nasal 4.368925 cannula 09/29 1031 55 11 122/60 87 100 04/20 1000 60 12 121/58 79 100 Nasal 4.001147 cannula 09/29 0930 56 14 101/52 73 100 / 0900 57 10 107/53 71 100 Nasal 4.331169 cannula 09/29 0831 61 11 84/48 61 100 09/29 0825 100 Nasal 4.069364 cannula 09/29 0800 Nasal 4.228204 cannula 09/29 0800 36.4 58 13 129/59 82 100 Nasal 4.289481 cannula 09/29 0730 60 11 113/56 80 100 09/29 0700 61 11 113/55 74 100 Nasal 4.428953 cannula 09/29 0600 59 11 114/56 81 100 04/20 0500 69 15 114/67 85 100 04/20 0400 62 11 115/56 79 100 04/20 0300 63 11 99/54 74 100 04/20 0201 61 11 125/58 83 100 04/20 0111 100 Nasal 4.724144 cannula 09/29 0100 65 10 119/60 86 97 04/20 0000 36.3 04/ 0000 66 10 89/52 65 100 04/ 2300 64 12 117/57 82 100 04/ 2200 65 12 99/54 72 100 04/ 2100 64 11 93/51 70 100 04/ 2001 73 12 130/57 82 100 / 1930 36.8 04/ 1900 71 11 123/58 84 97 / 1830 60 12 117/53 76 100 04/ 1800 68 21 116/59 80 100 04/ 1730 66 13 136/60 87 100 04/ 1700 68 14 112/55 77 100 04/ 1630 66 13 114/55 79 100 04/ 1606 68 16 101/52 74 100 04/ 1600 71 18 100 / 1600 36.7 100 Nasal 3.042503 cannula 09/28 1600 98 High flow 3.205681 nasal cannula 09/28 1530 92 31 104/58 [...] (bLE +1), no clubbing, no cyanosisMusculoskeletal: normal inspectionNeuro/NETSUITE DEVELOPER: no motor deficitsSkin: dry, intact, normal color, [...] (Auto) (14.0 - 32.0 %) 12.7 L [place] % (Auto) (4.8 - 9.0 %) 5.2 Eos % (Auto) (0.3 - 3.7 %) 0.5 Baso % (Auto) (0.0 - 2.0 %) 0.1 Neut # (Auto) (2.0 - 7.6 x10 3/uL) 8.57 H Lymph # (Auto) (1.0 - 3.8 x10 3/uL) 1.34 [place] # (Auto) (0.1 - 0.8 x10 3/uL) [...] Impressions:RADIOLOGY - XR ABDOMEN 1V (KUB) 09/29 0414 Report Impression - Status: SIGNED Entered: 09/30/2019 0736 IMPRESSION:Nonobstructed bowel gas pattern. SL: AMRTS5XCZS09Tgxefctnoz By: Liam Dumont M.D.RADIOLOGY - XR CHEST 1 V 09/29 513 Report Impression - Status: SIGNED Entered: 09/30/2019 0737 IMPRESSION:1. Decreasing bilateral pleural effusions with decreasing bibasilaratelectasis/infiltrates.2. Decreasing interstitial edema.3. Removal of right jugular line. SL: BDQWW0LFUG34Padzacbbxn By: Liam Dumont M.D. Diagnosis, Assessment Plan Free Text DxA P NotesFree text DxA P notes:Severe lactic acidosisSevere metabolic acidosisAcute renal failureHypocalcemiaHypomagnesemia?Septic shock vs lactic acidosis from metforminDehydrationHypothermiaDMHTNDementia with behavior disturbance Plan:Ms. Agustin is a 74 yo female with non-specific symptoms of not feeling well, poor appetite that was found to have abnormal labs at [place], sent to ED for evaluation. In the [...] to 10.5On zosynTransfer to the floordw RN, [employer] SEWER, consultantsCXR and telemetry personally reviewedFurther recs per clinical course at 1502 RPT #:[id number] OF REPORTPRProgress Hnok1248-99-79N05:56:00G.VUST73689483-4043PYJziikveoy for patient tjyzJUHPWNNMKVAQBJ9553-77-39E59:02:33 [facility] 2019-09-30 14:44:00 BUhwhxzyrup06955672KqeVGfpIeKhLsfftr3xWO 3KRwASXENjNZESJkS z40fgk0DLa1zX0eH6CDWkxXHvc2284-87-21S43:44:00 [facility])Gastroenterology Progress NoteREPORT#:[id number] REPORT STATUS: SignedDATE:09/30/19 TIME: 1444 PATIENT: MAC AGUSTIN UNIT #: [id number]#: [id number] [address] [birth year] AGE: 74 SEX: F ATTEND: [...] Nasal cannula 09/29 1400 O2 Flow Rate 4.983440 09/29 1400 Temp 36.4 09/29 1200 24 [...] no acute distressHEENT: moist mucosal membranesCardiovascular: normal S1/T2Xwfbpewfsko: clear to auscultationAbdomen: non-tender, normal bowel sounds, [...] (Auto) (14.0 - 32.0 %) 12.7 L [place] % (Auto) (4.8 - 9.0 %) 5.2 Eos % (Auto) (0.3 - 3.7 %) 0.5 Baso % (Auto) (0.0 - 2.0 %) 0.1 Neut # (Auto) (2.0 - 7.6 x10 3/uL) 8.57 H Lymph # (Auto) (1.0 - 3.8 x10 3/uL) 1.34 [place] # (Auto) (0.1 - 0.8 x10 3/uL) [...] 09/30/2019 0736 IMPRESSION:Nonobstructed bowel gas pattern. SL: AHOCQ7AUVJ46Padxdpolfa By: Liam Dumont M.D.RADIOLOGY - XR CHEST 1 V 09/29 513 Report Impression - Status: SIGNED Entered: 09/30/2019 0737 IMPRESSION:1. Decreasing bilateral pleural effusions with decreasing bibasilaratelectasis/infiltrates.2. Decreasing interstitial edema.3. Removal of right jugular line. SL: PUEGY6FTIQ32Ijfbyssncj By: Liam Dumont, M.D. Results: labs reviewed, vital signs stable [...] infectioun- PPI- Supportive care at 1456 RPT #:[id number] OF REPORTPRProgress Ybuj4454-03-91E90:44:00G.BGBC00532156-1479JXNnlcxdiot for patient cehiREDVUPCBANRAVW2898-75-30M14:56:42 [facility] 2019-09-30 14:44:00 DLavpzprdec12175264ImHfsXYUNOsYq071b8pN+ a6SiFLDRYQH8Q49EO GWbdPXeVeAVDyFNtBuTccZahKE1880-08-86Y04:44:00 [facility] ([facility])Gastroenterology Progress NoteREPORT#:[id number] REPORT STATUS: SignedDATE:09/30/19 TIME: 1444 PATIENT: MAC AGUSTIN UNIT #: [id number]#: [id number] [address] [birth year] AGE: 74 SEX: F ATTEND: Joel Myers [facility] AUTHOR: Arian Anderson * ALL edits or [...] Nasal cannula 09/29 1400 O2 Flow Rate 4.497823 09/29 1400 Temp 36.4 09/29 1200 24 [...] no acute distressHEENT: moist mucosal membranesCardiovascular: normal S1/K2Wswkcnxgblv: clear to auscultationAbdomen: non-tender, normal bowel sounds, [...] (Auto) (14.0 - 32.0 %) 12.7 L [place] % (Auto) (4.8 - 9.0 %) 5.2 Eos % (Auto) (0.3 - 3.7 %) 0.5 Baso % (Auto) (0.0 - 2.0 %) 0.1 Neut # (Auto) (2.0 - 7.6 x10 3/uL) 8.57 H Lymph # (Auto) (1.0 - 3.8 x10 3/uL) 1.34 [place] # (Auto) (0.1 - 0.8 x10 3/uL) [...] 0514 Report Impression - Status: SIGNED Entered: 09/30/2019 1336 IMPRESSION:Nonobstructed bowel gas pattern. SL: GVBNH4REWR57Czbbicslpn By: Liam Dumont M.D.RADIOLOGY - XR CHEST 1 V 09/29 0514 Report Impression - Status: SIGNED Entered: 09/30/2019 0737 IMPRESSION:1. Decreasing bilateral pleural effusions with decreasing bibasilaratelectasis/infiltrates.2. Decreasing interstitial edema.3. Removal of right jugular line. SL: HRMTZ4FCNB51Hxoicengpz By: Liam Dumont M.D. Results: labs reviewed, [...] the findings and plan as documented by [employer]ACH[employer]OWN SEWER. at 1456 RPT #:[id number] OF REPORTPRProgress Keci8666-68-68H99:44:00G.NRAQ20914319-9773OHMaoekupjb for patient eugcAETJRLUNHMEJYK7622-71-76P83:01:26 [facility] 2019-09-30 14:44:00 ASzdmblvlnl11698575Pj54TVYO7SaB58NE6YdkD qsokEd+4ifpUEu4a+ 0y3SBAvygYKwGT/p01nY70b1E30545-61-98S83:44:00 [facility])Gastroenterology Progress NoteREPORT#:[id number] REPORT STATUS: SignedDATE:09/30/19 TIME: 144 PATIENT: MAC AGUSTIN UNIT #: [id number]#: [id number] [address] [birth year] AGE: 74 SEX: F ATTEND: Joel Myers [facility] AUTHOR: Arian Anderson * ALL edits or [...] Nasal cannula 09/29 1400 O2 Flow Rate 4.140956 09/29 1400 Temp 36.4 09/29 1200 24 [...] no acute distressHEENT: moist mucosal membranesCardiovascular: normal S1/C6Prlrswxsnef: clear to auscultationAbdomen: non-tender, normal bowel sounds, [...] INR (0.8 - 1.2) 1.3 H PTT ([place]) (25.0 - 39.5 Seconds) 28.5 PT Patient/Control [...] (Auto) (14.0 - 32.0 %) 12.7 L [place] % (Auto) (4.8 - 9.0 %) 5.2 Eos % (Auto) (0.3 - 3.7 %) 0.5 Baso % (Auto) (0.0 - 2.0 %) 0.1 Neut # (Auto) (2.0 - 7.6 x10 3/uL) 8.57 H Lymph # (Auto) (1.0 - 3.8 x10 3/uL) 1.34 [place] # (Auto) (0.1 - 0.8 x10 3/uL) [...] Entered: 09/30/2019735 IMPRESSION:Nonobstructed bowel gas pattern. SL: JYKMQ3HHJV46Uouitiwhgl By: Liam Dumont M.D.RADIOLOGY - XR CHEST 1 V 09/29 513 Report Impression - Status: SIGNED Entered: 09/30/201937 IMPRESSION:1. Decreasing bilateral pleural effusions with decreasing bibasilaratelectasis/infiltrates.2. Decreasing interstitial edema.3. Removal of right jugular line. SL: ATNJK1FTDW48Qxzkqnujlm By: Liam Dumont M.D. Results: labs reviewed, [...] the findings and plan as documented by [employer]ACH[employer] CROWN SEWER. at 1456 at 0913 RPT #:[id number] OF REPORTPRProgress Rwcm1691-55-83H45:44:00G.[id number] for patient mnksXLKBEEANHVQGAI0610-48-22B59:14:03 [facility] 2019-09-30 07:09:00 [id number]+ NHcpqsaXPyknHKn5z R/SOBbQVExxBXVICIhJBIWj04P5552-01-27I42:09:00 [facility] ([facility])Nephrology Progress NoteREPORT#:[id number] REPORT STATUS: SignedDATE:09/30/19 TIME: 708 PATIENT: MAC AGUSTIN UNIT #: [id number]#: [id number] [address] AGE: 74 SEX: F ATTEND: [...] O2 Flow FiO2 Mean Ox Delivery Rate 04/20 0600 59 11 114/56 81 100 04/20 0500 69 15 114/67 85 100 04/20 0400 62 11 115/56 79 100 04/20 0300 63 11 99/54 74 100 04/20 0201 61 11 125/58 83 100 04/20 0111 100 Nasal 4.649709 cannula 09/29 0100 65 10 119/60 86 97 04/ 0000 36.3 04/ 0000 66 10 89/52 65 100 04/ 2300 64 12 117/57 82 100 04/ 2200 65 12 99/54 72 100 04/ 2100 64 11 93/51 70 100 09/28 2000 73 12 130/57 82 100 04/ 1930 36.8 04/ 1900 71 11 123/58 84 97 04/ 1830 60 12 117/53 76 100 04/ 1800 68 21 116/59 80 100 04/ 1730 66 13 136/60 87 100 04/ 1700 68 14 112/55 77 100 04/ 1630 66 13 114/55 79 100 04/ 1606 68 16 101/52 74 100 04/ 1600 71 18 100 04/ 1600 36.7 100 Nasal 3.995006 cannula 09/28 1600 98 High flow 3.953235 nasal cannula 09/28 1530 92 31 104/58 75 99 04/ 1500 71 15 111/55 78 100 04/ 1430 73 15 141/66 93 100 / 1400 72 16 127/60 87 100 09/28 1330 73 18 129/60 86 100 04/ 1300 74 16 130/62 89 100 04/ 1230 79 18 128/61 88 100 04/ 1200 98 High flow 3.325862 nasal cannula 09/28 1200 74 16 126/58 84 100 04/ 1200 36.7 100 Nasal 3.703669 cannula 09/28 1130 83 20 142/62 89 100 04/ 1100 80 18 111/59 82 100 04/ 1030 82 27 102/72 84 95 04/ 1000 79 21 111/55 79 100 04/ 0930 81 24 108/54 78 100 04/ 0900 77 21 110/56 81 100 04/ 0830 73 21 119/57 82 100 04/ 0825 100 Nasal 3.868892 cannula 09/28 0800 Nasal 3.732421 cannula 09/28 0800 76 25 115/58 83 04/ 0800 36.4 100 Nasal 3.884753 cannula 09/28 0730 83 26 113/55 79 [...] ONE PO (DC) Dextrose/Sodium Chloride 1,000 ML .[id number] IV (DC) Vancomycin HCl 1,000 MG DIALYSIS-DOSE [...] expansionAbdomen: softGenitourinary: ballard, urineExtremities: no edemaMusculoskeletal: normal inspectionNeuro/NETSUITE DEVELOPER: altered mental statusSkin: dry ResultsFindings/Data:Laboratory Tests 09/27 [...] O2 Delivery Device Cannula Cannula Laboratory Tests 09/29 09/29 09/28 09/28 09/28 [...] mg/dL) 1.90 09/28 09/28 09/28 09/28 09/28 UNK 0444 0443 0443 0443 Chemistry Sodium (134 [...] %) 12.7 L 7.1 L 6.5 L [place] % (Auto) (4.8 - 9.0 %) 5.2 4.6 L 7.5 Eos % (Auto) (0.3 - 3.7 %) 0.5 0.1 L 0.1 L Baso % (Auto) (0.0 - 2.0 %) 0.1 0.1 0.1 Neut # (Auto) (2.0 - 7.6 x10 3/uL) 8.57 H 11.76 H 12.84 H Lymph # (Auto) (1.0 - 3.8 x10 3/uL) 1.34 0.96 L 0.97 L [place] # (Auto) (0.1 - 0.8 x10 3/uL) [...] (Auto) (14.0 - 32.0 %) 4.9 L [place] % (Auto) (4.8 - 9.0 %) 9.3 H Eos % (Auto) (0.3 - 3.7 %) 0.0 L Baso % (Auto) (0.0 - 2.0 %) 0.1 Neut # (Auto) (2.0 - 7.6 x10 3/uL) 15.30 H Lymph # (Auto) (1.0 - 3.8 x10 3/uL) 0.89 L [place] # (Auto) (0.1 - 0.8 x10 3/uL) [...] pH (5.0 - 7.0) 5.0 Ur Specific Girard (1.005 - 1.030) 1.006 Urine Protein (NEGATIVE) [...] or early consolidation.3. Enlarged cardiac silhouette. SL: SPEUK7MJRP51Lkhcrcpwei By: [email or web address] - Scott Duran M.D. Laboratory [...] (Auto) (14.0 - 32.0 %) 12.7 L [place] % (Auto) (4.8 - 9.0 %) 5.2 Eos % (Auto) (0.3 - 3.7 %) 0.5 Baso % (Auto) (0.0 - 2.0 %) 0.1 Neut # (Auto) (2.0 - 7.6 x10 3/uL) 8.57 H Lymph # (Auto) (1.0 - 3.8 x10 3/uL) 1.34 [place] # (Auto) (0.1 - 0.8 x10 3/uL) [...] acid 1.2 within normal limit, urine output rchyj3536 cc with Lasix. Chest x-ray still pending. Progressive thrombocytopenia with progressive decrease in hemoglobin, the latter could be related to fluid resuscitation, multiple blood draws and blood loss during dialysis procedure, however will check LDH, haptoglobin, PT/ PT. at 1209 RPT #:[id number] OF REPORTPRProgress Oecd0033-93-51N80:09:00G.OWVH39318494-4249WHUxvyancph for patient psopWALBRVRGQYHQGM8534-49-84Z74:09:44 [facility] 2019-09-29 19:57:00 RLbbtecfugz59583559UIbKf56cT12SxTXeE+028 FPTbffUhl6NB5H9bb p9gI66PjuHuj1gFdDTzkFq7CgH4273-51-40F33:57:00 [facility] ([facility])Gastroenterology Progress NoteREPORT#:[id number] REPORT STATUS: SignedDATE:09/29/19 TIME: 1956 PATIENT: MAC AGUSTIN UNIT #: [id number]#: [id number] [address] AGE: 74 SEX: F ATTEND: Joel Myers [facility] AUTHOR: Cam Delgadillo MD * ALL edits [...] ONE PO (DC) Dextrose/Sodium Chloride 1,000 ML .V43I02F IV (DC) Vancomycin HCl 1,000 MG DIALYSIS-DOSE [...] no acute distressHEENT: moist mucosal membranesCardiovascular: normal S1/T2Bfwpmoixdrj: clear to auscultationAbdomen: non-tender, normal bowel sounds, [...] (Auto) (14.0 - 32.0 %) 7.1 L [place] % (Auto) (4.8 - 9.0 %) 4.6 L Eos % (Auto) (0.3 - 3.7 %) 0.1 L Baso % (Auto) (0.0 - 2.0 %) 0.1 Neut # (Auto) (2.0 - 7.6 x10 3/uL) 11.76 H Lymph # (Auto) (1.0 - 3.8 x10 3/uL) 0.96 L [place] # (Auto) (0.1 - 0.8 x10 3/uL) [...] or early consolidation.3. Enlarged cardiac silhouette. SL: ZTDRF5KMMU99Juvdgopfmg By: [email or web address] - Scott Duran M.D. Vital [...] 09/28 1606 68 16 101/52 74 100 09/28 1600 71 18 100 09/28 1600 36.7 100 Nasal 3.972096 cannula 09/28 1600 98 High flow 3.345407 nasal cannula 09/28 1530 92 31 104/58 75 99 09/28 1500 71 15 111/55 78 100 09/28 1430 73 15 141/66 93 100 09/28 1400 72 16 127/60 87 100 09/28 1330 73 18 129/60 86 100 09/28 1300 74 16 130/62 89 100 09/28 1230 79 18 128/61 88 100 09/28 1200 98 High flow 3.046787 nasal cannula 09/28 1200 74 16 126/58 84 100 09/28 1200 36.7 100 Nasal 3.338556 cannula 09/28 1130 83 20 142/62 89 100 09/28 1100 80 18 111/59 82 100 09/28 1030 82 27 102/72 84 95 09/28 1000 79 21 111/55 79 100 09/28 0930 81 24 108/54 78 100 09/28 0900 77 21 110/56 81 100 09/28 0830 73 21 119/57 82 100 09/28 0825 100 Nasal 3.081493 cannula 09/28 0800 Nasal 3.755531 cannula 09/28 0800 76 25 115/58 83 09/28 0800 36.4 100 Nasal 3.597049 cannula Laboratory Tests 09/29/19 1724:[Embedded Image Not [...] 1.9 mmol/l) 2.1 H 4.0 H 09/28 0443 0136 2314 2312 Chemistry Sodium (134 [...] Peptide (0 - 100 PG/ML) 546.7 H 09/272 2044 Chemistry Sodium (134 - 147 mEq/L) [...] 4.9 MG/DL) 1.9 L Laboratory Tests 09/28 442 Hematology WBC (4.5 - 11.0 x10 3/uL) [...] (Auto) (14.0 - 32.0 %) 7.1 L [place] % (Auto) (4.8 - 9.0 %) 4.6 L Eos % (Auto) (0.3 - 3.7 %) 0.1 L Baso % (Auto) (0.0 - 2.0 %) 0.1 Neut # (Auto) (2.0 - 7.6 x10 3/uL) 11.76 H Lymph # (Auto) (1.0 - 3.8 x10 3/uL) 0.96 L [place] # (Auto) (0.1 - 0.8 x10 3/uL) [...] is no longer required. at 2002 RPT #:[id number] OF REPORTPRProgress Lxon6242-47-78G14:57:00G.YMUX77091729-2402KFMellepwoa for patient rociERRLQQYUOBTZJE7516-07-89J67:03:16 [facility] 2019-09-29 13:57:00 KWmqikfhdxt18710211lUY5VjOTL2y4K4bEngLx9 e1qV2V6qf4y2/DLa0 GZkpCtPn46njp9PISdRMXV8YeP4474-03-35E66:57:00 [facility] CenterHospital[facility] Progress NoteREPORT#:[id number] REPORT STATUS: SignedDATE:09/29/19 TIME: 1357 PATIENT: MAC AGUSTIN UNIT #: [id number]#: [id number] [address] AGE: 74 SEX: F ATTEND: Joel Myers [facility] AUTHOR: Marisabel Chu DO * ALL edits [...] 84 100 09/28 1200 98.1 100 Nasal 3.524521 cannula 09/28 1130 83 20 142/62 89 100 09/28 1100 80 18 111/59 82 100 09/28 1030 82 27 102/72 84 95 09/28 1000 79 21 111/55 79 100 09/28 0930 81 24 108/54 78 100 09/28 0900 77 21 110/56 81 100 09/28 0830 73 21 119/57 82 100 09/28 0825 100 Nasal 3.009007 cannula 09/28 0800 Nasal 3.590425 cannula 09/28 0800 76 25 115/58 83 09/28 0800 97.5 100 Nasal 3.052771 cannula 09/28 0730 83 26 113/55 79 100 09/28 0700 83 26 116/55 79 100 09/28 0200 77 23 121/64 84 100 09/28 0100 75 17 132/60 87 100 09/28 0000 98.0 09/28 0000 74 15 114/59 84 100 09/27 2300 73 16 120/59 83 100 09/27 2200 78 20 115/54 78 100 09/27 2101 94 26 105/58 75 99 09/27 2000 High flow 5.981485 nasal cannula 09/27 2000 83 23 100/57 72 100 09/27 1930 97.3 09/27 1900 90 30 93/51 67 99 09/27 1831 88 31 98/47 58 99 09/27 1801 91 26 109/51 74 100 09/27 1730 72 18 102/56 76 100 09/27 1700 71 18 101/50 72 100 09/27 1630 70 13 101/55 73 100 09/27 1600 99 High flow 5.133478 nasal cannula 09/27 1600 74 15 109/58 81 100 09/27 1600 97.5 100 High flow 10.813387 nasal cannula 09/27 1530 69 14 105/58 [...] ONE PO (DC) Dextrose/Sodium Chloride 1,000 ML .E46V25V IV (DC) Vancomycin HCl 1,000 MG DIALYSIS-DOSE [...] (bLE +1), no clubbing, no cyanosisMusculoskeletal: normal inspectionNeuro/NETSUITE DEVELOPER: no motor deficitsSkin: dry, intact, normal color, [...] (Auto) (14.0 - 32.0 %) 7.1 L [place] % (Auto) (4.8 - 9.0 %) 4.6 L Eos % (Auto) (0.3 - 3.7 %) 0.1 L Baso % (Auto) (0.0 - 2.0 %) 0.1 Neut # (Auto) (2.0 - 7.6 x10 3/uL) 11.76 H Lymph # (Auto) (1.0 - 3.8 x10 3/uL) 0.96 L [place] # (Auto) (0.1 - 0.8 x10 3/uL) [...] or early consolidation.3. Enlarged cardiac silhouette. SL: SVWTG3IHVB85Unnrsjxdws By: [email or web address] - Scott Duran M.D. Diagnosis, Assessment Plan Free Text DxA P NotesFree text DxA P notes:Severe lactic acidosisSevere metabolic acidosisAcute renal failureHypocalcemiaHypomagnesemia?Septic shock vs lactic acidosis from metforminDehydrationHypothermiaDMHTNDementia with behavior disturbance Plan:Ms. Agustin is a 74 yo female with non-specific symptoms of not feeling well, poor appetite that was found to have abnormal labs at [place], sent to ED for evaluation. In the [...] improvedCheck labs in am at 1403 RPT #:[id number] OF REPORTPRProgress Cbpp3528-09-36G31:57:00G.IZSF40746608-2999PEPzkygibqy for patient odufTWIVVSEBUSEDFC8783-45-06M35:04:04 [facility] 2019-09-29 10:19:00 BTzfpktkoui58776899we6H8E3eeNwT3BGFPIMxw sEAVzkJW2ZnjNWNHi Y8vbQyMiR1q8maRLCK1EijEQQV6245-50-41Q16:19:00 [facility] ([facility] Progress NoteREPORT#:[id number] REPORT STATUS: SignedDATE:09/29/19 TIME: 1019 PATIENT: MAC AGUSTIN UNIT #: [id number]#: [id number] [address] [birth year] AGE: 74 SEX: F ATTEND: Joel Myers [facility] AUTHOR: Helga Escalante NP * ALL edits or amendments must be made on the electronic/computer document * SubjectiveChief Complaint:lethargicdenies painHPI:A 74 y/o female with past medical history significant for Alzheimer's dementia, behavioral disturbance, hypertension, type 2 diabetes mellitus, migraine headaches, anxiety disorder, bowel and bladder incontinence, rheumatoid arthritis, frequent UTI was brought from the assisted. She has been unwell for the past [...] Nasal cannula 09/28 1600 O2 Flow Rate 3.615486 09/28 1600 Temp 98.1 09/28 1600 24 [...] ONE PO (DC) Dextrose/Sodium Chloride 1,000 ML .Q59U99H IV (DC) Vancomycin HCl 1,000 MG DIALYSIS-DOSE [...] cyanosis, no edema, no pedal edemaMusculoskeletal: decreased ROMNeuro/NETSUITE DEVELOPER: no sensory deficitsSkin: dry, intact, normal color, [...] (Auto) (14.0 - 32.0 %) 7.1 L [place] % (Auto) (4.8 - 9.0 %) 4.6 L Eos % (Auto) (0.3 - 3.7 %) 0.1 L Baso % (Auto) (0.0 - 2.0 %) 0.1 Neut # (Auto) (2.0 - 7.6 x10 3/uL) 11.76 H Lymph # (Auto) (1.0 - 3.8 x10 3/uL) 0.96 L [place] # (Auto) (0.1 - 0.8 x10 3/uL) [...] pH (5.0 - 7.0) 5.0 Ur Specific [place] (1.005 - 1.030) 1.006 Urine Protein (NEGATIVE) [...] or early consolidation.3. Enlarged cardiac silhouette. SL: CESNQ7MCTF12Nukkcctecg By: [email or web address] - Scott Duran M.D. Results: [...] repeat serum acetone in AM. HEMEAnemia-H/H stable 8.4. Plt count 99 this AM. No signs [...] scale and adjust as needed.Repleteelectrolytes as needed. SIHWUbyR1S 6. AG closed, insulin gtt discontinued and started on ss-adjust as needed. HEMEAnemia-H/H stable 7.8. Plt count 81 this AM - monitor [...] discharge planning.Consultants: gastroenterology, nephrology at 1809 RPT #:[id number] OF REPORTPRProgress Jpil3786-34-20W03:19:00G.JWYT23138312-4645QMRmoxcxxhr for patient zrrjJCOSGTWGEKGOYF9323-65-62M73:09:53 [facility] 2019-09-29 07:18:00 YAzcfwojjzd18538518ynU2pfn8VPObJ3wgN0KKG 62LWg1bRYQf+yoEji gZ5f8CLnDdr0GmDpAxBrm9e7iY2300-64-83E63:18:00 [facility] ([facility])Nephrology Progress NoteREPORT#:[id number] REPORT STATUS: SignedDATE:09/29/19 TIME: 717 PATIENT: AMC AGUSTIN UNIT #: [id number]#: [id number] [address] [birth year] AGE: 74 SEX: F ATTEND: [...] 09/27 2101 94 26 105/58 75 99 / 2000 High flow 5.280230 nasal cannula 09/28 1999 83 23 100/57 72 100 04/ 1930 36.3 09/27 1900 90 30 93/51 67 99 09/27 1831 88 31 98/47 58 99 09/27 1801 91 26 109/51 74 100 04/ 1730 72 18 102/56 76 100 09/27 1700 71 18 101/50 72 100 09/27 1630 70 13 101/55 73 100 09/27 1600 99 High flow 5.704643 nasal cannula 09/27 1600 74 15 109/58 81 100 09/27 1600 36.4 100 High flow 10.793698 nasal cannula 09/27 1530 69 14 105/58 78 100 09/27 1500 91 28 106/54 75 100 09/27 1430 80 21 95/50 66 99 09/27 1400 74 13 101/56 76 100 09/27 1330 81 19 101/53 73 100 09/27 1300 74 15 109/54 78 100 09/27 1230 82 20 105/58 78 100 09/27 1200 100 High flow 5.308651 nasal cannula 09/27 1200 36.4 100 High flow 10.163155 nasal cannula 09/27 1200 87 21 105/56 76 100 / 1130 77 18 105/70 82 100 09/27 1100 76 20 114/53 77 100 09/27 1030 76 17 111/56 80 100 09/27 1000 68 12 92/53 69 100 09/27 0930 80 16 109/57 79 100 09/27 0900 78 15 108/56 75 100 09/27 0830 81 17 105/55 79 100 09/27 0800 High flow 10.377924 nasal cannula 09/27 0800 36.2 100 High flow 10.830646 nasal cannula 09/27 0800 36.2 100 High flow 10.427035 nasal cannula 09/27 0800 87 21 95/52 [...] Sodium Chloride 250 MLSodium Bicarbonate 75 ML .C61F09S IV (DC) Sodium Chloride 1,000 MLHeparin Sodium [...] expansionAbdomen: softGenitourinary: ballard, urineExtremities: no edemaMusculoskeletal: normal inspectionNeuro/NETSUITE DEVELOPER: altered mental statusSkin: dry ResultsFindings/Data:Laboratory Tests 09/27 [...] 2.9 Magnesium (1.8 - 2.4 mg/dL) 2.30 0409/26 1515 1515 1210 0918 0544 Chemistry Sodium [...] - 32.0 %) 7.1 L 6.5 L [place] % (Auto) (4.8 - 9.0 %) 4.6 L 7.5 Eos % (Auto) (0.3 - 3.7 %) 0.1 L 0.1 L Baso % (Auto) (0.0 - 2.0 %) 0.1 0.1 Neut # (Auto) (2.0 - 7.6 x10 3/uL) 11.76 H 12.84 H Lymph # (Auto) (1.0 - 3.8 x10 3/uL) 0.96 L 0.97 L [place] # (Auto) (0.1 - 0.8 x10 3/uL) [...] (Auto) (14.0 - 32.0 %) 4.9 L [place] % (Auto) (4.8 - 9.0 %) 9.3 H Eos % (Auto) (0.3 - 3.7 %) 0.0 L Baso % (Auto) (0.0 - 2.0 %) 0.1 Neut # (Auto) (2.0 - 7.6 x10 3/uL) 15.30 H Lymph # (Auto) (1.0 - 3.8 x10 3/uL) 0.89 L [place] # (Auto) (0.1 - 0.8 x10 3/uL) [...] - 32.0 %) 2.8 L 4.8 L [place] % (Auto) (4.8 - 9.0 %) 6.5 3.2 L Eos % (Auto) (0.3 - 3.7 %) 1.1 0.1 L Baso % (Auto) (0.0 - 2.0 %) 0.2 0.1 Neut # (Auto) (2.0 - 7.6 x10 3/uL) 19.09 H 19.89 H Lymph # (Auto) (1.0 - 3.8 x10 3/uL) 0.61 L 1.06 [place] # (Auto) (0.1 - 0.8 x10 3/uL) [...] pH (5.0 - 7.0) 5.0 Ur Specific [place] (1.005 - 1.030) 1.006 Urine Protein (NEGATIVE) [...] or early consolidation.3. Enlarged cardiac silhouette. SL: BJLYK1ZCAL54Ogvyigzcve By: [email or web address] - Scott Duran M.D. Laboratory [...] (Auto) (14.0 - 32.0 %) 7.1 L [place] % (Auto) (4.8 - 9.0 %) 4.6 L Eos % (Auto) (0.3 - 3.7 %) 0.1 L Baso % (Auto) (0.0 - 2.0 %) 0.1 Neut # (Auto) (2.0 - 7.6 x10 3/uL) 11.76 H Lymph # (Auto) (1.0 - 3.8 x10 3/uL) 0.96 L [place] # (Auto) (0.1 - 0.8 x10 3/uL) [...] pH (5.0 - 7.0) 5.0 Ur Specific [place] (1.005 - 1.030) 1.006 Urine Protein (NEGATIVE) [...] white blood count 13.57 improving. at 1335 [facility] #:[id number] OF REPORTPRProgress Wnij3830-49-84R66:18:00G.KDCO00582997-7481XOWovdgykfr for patient dmlnQVCCMZUMOPUWQE7918-44-69B59:35:32 [facility] 2019-09-28 20:32:00 SJqkctapxcu554088012PVWXMlL+4s61/g7NH97P as7lIGd123IXA5Wkz gL/Yxw+qbn138ZlF+zQtyWw+BQ4988-32-87E44:32:16[address] [place], [place] [address] PATIENT NAME: MAC AGUSTIN ADMIT DATE: 09/26/19ACCOUNT NO: [id number] ROOM NO: [facility] AGE: 74 REPORT TYPE: CONSULTATION REPORT SEX: F ADMITTING PHYSICIAN:Joel Myers MD ATTENDING PHYSICIAN:Joel Myers MD CONSULTATION DATE: 09/28/2019 CONSULTING PHYSICIAN: Cam Delgadillo MD GASTROENTEROLOGY CONSULTATION NOTE CONSULTING PHYSICIAN: Joel Myers MD REASON FOR CONSULTATION: Abnormal CT scan. HISTORY OF PRESENT ILLNESS: A 74-year-old female with advanced dementia,assisted resident, type 2 diabetes, hypertension, and chronic pain, who gottransferred from assisted because she had not been eating or [...] noncontributory. FAMILY HISTORY: Noncontributory. SOCIAL HISTORY: A assisted resident. No smoking, alcohol, or any illicitdrug use. ALLERGIES: PENICILLAMINE. HOME MEDICATIONS: Glucophage, Seroquel, Tylenol, BuSpar, Aricept. PATIENT NAME: MAC AGUSTIN INPATIENT MEDICATIONS: List is reviewed. The patient is getting intravenousvancomycin, intravenous piperacillin/tazobactam along with other medications. PHYSICAL EXAMINATION:VITAL SIGNS: Temperature 97.3, pulse 88, respirations 26 to 31, blood /47 to 109/51, oxygen saturation 99% on nasal [...] inboth lungs, greatest in the lung bases.8. Ikov-ae-eivdvbno abdominal aortic atherosclerosis associated with infrarenalaneurysm measuring [...] patient. Dictated By: Cam Delgadillo MD WT: CON:GERICA/MALIK.06/NTSDD: 09/28/2019 20:32:10DT: 09/28/2019 21:13:23Conf#: [id number]/[facility]#: [id number] Authenticated and Edited by Cam Delgadillo MD On 09/30/19 11:28:58 PM at 2332 PATIENT NAME: MAC AGUSTIN :13:00G.[id number] 8-0216AVAvailable for patient rxpwBATKSJYQGYYQQW0268-27-23H98:32:19 [facility] 2019-09-28 14:03:00 YEaxhwxgvyb77385301dIzD/jjXeAvdvsuxH4ruR 6GaJADFGlr9XZXNHs +bisCmKIbxUEuaIwPu5SjDlurk5543-66-25W81:03:00 [facility] ([facility])Hospitalist Progress NoteREPORT#:[id number] REPORT STATUS: SignedDATE:09/28/19 TIME: 1403 PATIENT: MAC AGUSTIN UNIT #: [id number]#: [id number] [address] [birth year] AGE: 74 SEX: F ATTEND: Joel Myers [facility] AUTHOR: Marisabel Chu DO * ALL edits [...] 09/27 1200 87 21 105/56 76 100 04 1130 77 18 105/70 82 100 04/ 1100 76 20 114/53 77 100 04/ 1030 76 17 111/56 80 100 04/18 1000 68 12 92/53 69 100 / 0930 80 16 109/57 79 100 / 0900 78 15 108/56 75 100 / 0830 81 17 105/55 79 100 / 0800 97.1 100 High flow 10.534305 nasal cannula 09/27 0800 87 21 95/52 69 100 /18 0730 87 21 93/55 72 100 /18 0715 83 18 94/52 71 98 /18 0700 140 16 106/56 75 95 04/18 0645 101 18 111/53 75 96 04/18 0630 83 17 99/56 71 95 /18 0615 130 25 99/53 72 96 04/18 0600 94 19 97/55 73 96 /18 0500 76 15 103/53 75 100 / 0401 121 20 119/56 80 99 /18 0400 96.9 09/27 0345 84 16 98/53 69 100 09/27 0330 79 16 87/54 67 98 04/18 0300 79 16 100/53 75 98 04/18 0230 79 17 105/51 74 98 04/18 0200 80 15 109/56 80 98 04/18 0130 76 19 94/53 69 98 04/18 0100 76 16 113/56 81 99 04/18 0030 128 17 91/50 61 99 04/18 0000 97.9 04/ 0000 79 18 107/53 77 99 / 2330 77 19 106/53 76 100 04 2300 78 17 113/51 74 100 09/26 2230 75 16 101/53 74 100 09/26 2200 81 16 102/54 74 100 09/26 2130 83 16 95/55 68 100 09/26 2100 78 16 112/57 77 99 09/26 2030 73 18 89/51 64 97 09/26 2000 97.7 09/27 1999 High flow 10.452434 nasal cannula 09/26 2000 77 16 104/57 76 99 09/26 1930 75 14 101/52 73 100 09/26 1920 100 High flow 10.386054 nasal cannula 09/26 1900 79 17 106/51 74 100 09/26 1845 72 14 85/51 64 99 09/26 1830 72 16 88/51 65 100 09/26 [...] 105/57 77 09/26 1600 97.5 High flow 10.451217 nasal cannula 09/26 1600 86 19 98/56 [...] ONE IV (DC) Sodium Bicarbonate 75 ML .A28B39Z IV (DC) Sodium Chloride 1,000 MLVancomycin HCl [...] - 32.0 %) 6.5 L 4.9 L [place] % (Auto) (4.8 - 9.0 %) 7.5 9.3 H Eos % (Auto) (0.3 - 3.7 %) 0.1 L 0.0 L Baso % (Auto) (0.0 - 2.0 %) 0.1 0.1 Neut # (Auto) (2.0 - 7.6 x10 3/uL) 12.84 H 15.30 H Lymph # (Auto) (1.0 - 3.8 x10 3/uL) 0.97 L 0.89 L [place] # (Auto) (0.1 - 0.8 x10 3/uL) [...] pH (5.0 - 7.0) 5.0 Ur Specific [place] (1.005 - 1.030) 1.006 Urine Protein (NEGATIVE) [...] was found to have abnormal labs at [place], sent to ED for evaluation. In the [...] Check labs in am at 1412 RPT #:[id number] OF REPORTPRProgress Zkuc3827-90-30V67:03:00G.EUHX07599174-4342RWFgzmkhqjh for patient urtyYIYTTGQPYBYMJQ9893-91-03T64:12:54 [facility] 2019-09-28 13:07:00 RItrjqeqdim64030117kcMPU6KKtnIVgiaeIfnXJ J/AqWRASZkzObeUVj SLVCjxv0O0aGhefgGAABGrPK0Z5029-13-73W10:07:00 [facility] ([facility])Critical Care Progress NoteREPORT#:[id number] REPORT STATUS: SignedDATE:09/28/19 TIME: 1307 PATIENT: MAC AGUSTIN UNIT #: [id number]#: [id number] [address] [birth year] AGE: 74 SEX: F ATTEND: Joel Myers [facility] AUTHOR: Helga Escalante [employer] * ALL edits or amendments must be made on the electronic/computer document * SubjectiveChief Complaint:lethargicdenies painHPI:74 years old female with past medical history significant for Alzheimer's dementia, behavioral disturbance, hypertension, type 2 diabetes mellitus, migraine headaches, anxiety disorder, bowel and bladder incontinence, rheumatoidarthritis, frequent UTI was brought from the assisted. She has been unwell for the past [...] be broadened to Zosyn and Vanco given assisted placement. Concern is about ischemic bowel. Also [...] nasal cannula 09/27 0800 O2 Flow Rate 10.836259 09/27 0800 Temp 97.1 09/27 0800 24 [...] ONE IV (DC) Sodium Bicarbonate 75 ML .M53N39A IV (CKD) Sodium Chloride 1,000 MLVancomycin HCl [...] cyanosis, no edema, no pedal edemaMusculoskeletal: decreased ROMNeuro/NETSUITE DEVELOPER: no sensory deficitsSkin: dry, intact, normal color, [...] - 32.0 %) 6.5 L 4.9 L [place] % (Auto) (4.8 - 9.0 %) 7.5 9.3 H Eos % (Auto) (0.3 - 3.7 %) 0.1 L 0.0 L Baso % (Auto) (0.0 - 2.0 %) 0.1 0.1 Neut # (Auto) (2.0 - 7.6 x10 3/uL) 12.84 H 15.30 H Lymph # (Auto) (1.0 - 3.8 x10 3/uL) 0.97 L 0.89 L [place] # (Auto) (0.1 - 0.8 x10 3/uL) [...] Comment LARGE PLATELETS Laboratory Tests 09/27 09/27 104 0438 Toxicology Random Vancomycin (mcg/mL) 12.8 Acetone, Quant (NEG - <20 mg/dL) Large - 80-100 mg/dL Laboratory Tests 09/27 1044 Urines Urine Color (YEL/STRAW) YELLOW Urine Appearance (CLEAR) SL CLOUDY Urine pH (5.0 - 7.0) 5.0 Ur Specific [place] (1.005 - 1.030) 1.006 Urine Protein (NEGATIVE) [...] rheumatoidarthritis, frequent UTI was brought from the assisted. She has been unwell for the past [...] be broadened to Zosyn and Vanco given assisted placement. Concern is about ischemic bowel. Also [...] care time: Minutes: 35 at 1424 RPT #:[id number] OF REPORTPRProgress Vjhi2494-54-37Q57:07:00G.YRDP43611877-5006XZQscmlajqt for patient qbtwERWHMAIRNTLGIE1374-66-53I71:25:58 [facility] 2019-09-28 09:16:00 BSilsbbbsbg63441460RVyjICll6ZninSg2UFx0D +zPj5KzsIbPOm3iUZ UgvZNib3/itTQ5JRnOf7FXRixh0750-86-47X88:16:00 [facility] ([facility])Nephrology Progress NoteREPORT#:[id number] REPORT STATUS: SignedDATE:09/28/19 TIME: 0916 PATIENT: MAC AGUSTIN UNIT #: [id number]#: [id number] [facility] AGE: 74 SEX: F ATTEND: Joel [...] 09/27 0830 81 17 105/55 79 100 04/18 0800 87 21 95/52 69 100 04/18 0730 87 21 93/55 72 100 04/18 0715 83 18 94/52 71 98 04/18 0700 140 16 106/56 75 95 04/18 0645 101 18 111/53 75 96 04/18 0630 83 17 99/56 71 95 04/18 0615 130 25 99/53 72 96 04/18 0600 94 19 97/55 73 96 04/18 0500 76 15 103/53 75 100 / 0401 121 20 119/56 80 99 / 0400 36.1 09/27 0345 84 16 98/53 69 100 / 0330 79 16 87/54 67 98 / 0300 79 16 100/53 75 98 / 0230 79 17 105/51 74 98 / 0200 80 15 109/56 80 98 / 0130 76 19 94/53 69 98 / 0100 76 16 113/56 81 99 /18 0030 128 17 91/50 61 99 09/27 0000 36.6 09/27 0000 79 18 107/53 77 99 09/26 2330 77 19 106/53 76 100 09/26 2300 78 17 113/51 74 100 09/26 2230 75 16 101/53 74 100 09/26 2200 81 16 102/54 74 100 09/26 2130 83 16 95/55 68 100 09/26 2100 78 16 112/57 77 99 09/26 2030 73 18 89/51 64 97 09/27 1999 36.5 09/27 1999 High flow 10.794186 nasal cannula 09/27 1999 77 16 104/57 76 99 09/26 1930 75 14 101/52 73 100 09/26 1920 100 High flow 10.624624 nasal cannula 09/26 1900 79 17 106/51 74 100 09/26 1845 72 14 85/51 64 99 / 1830 72 16 88/51 65 100 09/26 1815 75 16 100 09/26 1814 86/41 59 09/26 1808 77 16 91/53 70 100 09/26 1806 81 18 102/51 74 91 09/26 1800 79 17 104/52 74 100 09/26 1745 79 17 97/52 70 100 04/ 1730 83 17 88/54 65 100 04/ 1715 82 16 100 04/ 1714 98/54 72 04/17 1700 85 20 95/50 70 100 / 1645 91 26 93 / 1644 103/49 71 09/26 1631 116/55 76 04 1630 86 33 83 04 1615 81 18 100 04/ 1614 105/57 77 09/26 1600 36.4 High flow 10.673230 nasal cannula 09/26 1600 86 19 98/56 71 100 04 1545 79 17 100 09/26 1544 69 04 1544 92/48 04 1530 81 17 127/57 82 100 09/26 [...] 115/57 82 87 09/26 1246 122/85 100 09/26 1245 80 26 91 09/26 1230 89 25 96/54 72 91 09/26 1215 80 22 100 09/26 1212 104/45 65 09/26 1200 36.3 High flow 10.466236 nasal cannula 09/26 1200 86 26 109/55 79 93 09/26 1145 80 26 89 04 1141 112/49 71 09/26 1130 76 19 [...] ONE IV (DC) Sodium Bicarbonate 75 ML .[id number] IV (CKD) Sodium Chloride 1,000 MLVancomycin HCl [...] expansionAbdomen: softGenitourinary: ballard, urineExtremities: no edemaMusculoskeletal: normal inspectionNeuro/NETSUITE DEVELOPER: altered mental statusSkin: dry ResultsFindings/Data:Laboratory Tests 09/26 [...] - 32.0 %) 6.5 L 4.9 L [place] % (Auto) (4.8 - 9.0 %) 7.5 9.3 H Eos % (Auto) (0.3 - 3.7 %) 0.1 L 0.0 L Baso % (Auto) (0.0 - 2.0 %) 0.1 0.1 Neut # (Auto) (2.0 - 7.6 x10 3/uL) 12.84 H 15.30 H Lymph # (Auto) (1.0 - 3.8 x10 3/uL) 0.97 L 0.89 L [place] # (Auto) (0.1 - 0.8 x10 3/uL) [...] start Glucose and insulin drip at 1522 RPT #:[id number] OF REPORTPRProgress [id number]:16:00G.[id number] for patient [id number]:22:51 [facility] 2019-09-28 07:59:00 [id number]+s R3DomvNXS/PlMq3bp 5pivvv2ajjk60/gDKOLQH7YOvs6377-24-34R57:59:00 [facility])Pharmacy Prog.Note-VancomycinREPORT#:[id number] REPORT STATUS: SignedDATE:09/28/19 TIME: 0759 PATIENT: MAC AGUSTIN UNIT #: [id number]#: [id number] [address] AGE: 74 SEX: F ATTEND: Joel Myers MDA AUTHOR: Yary Figueroa [facility] * ALL edits or amendments must be made on the electronic/computer document * Vancomycin VancomycinMedication Therapy:Vancomycin Goal trough: 15-20 mcg/mlIndication for treatment:EmpiricCurrent therapy:Vancomycin dosing per levelsDay of therapy:Day 3Weight: Actual weight (kg): 63.4VS and I/O:Vital Signs Date Temp Pulse Resp B/P B/P Mean Pulse Ox FiO2 09/25-09/27 33.1-37.3 69-132 12-60 65-226/34-144 44-179 73-100 72 hours ending at 0700 09/27 0709/26 19009/26 0700 09/25 1900 09/25 09/24 0700 1900Intake 1195.00 1108.00 2253.00TotalOutput 200 150 295TotalBalance 995.00 958.00 1958.00 Intake, 0HemodialysisIntake, IV 1195.00 1058.00 2253.00Intake, 50OralNumber 0 1BowelMovementsOutput, 0HemodialysisOutput, 200 150 295UrinePatient 63.4 kg 63.4 kg 61.4 kgWeightWeight Bed scale Bed scaleMeasurementMethod 72 Hour I O Total 09/27 0700 09/26 0709/25 0700 Intake Total 2303.00 2253.00 Output Total 350 295 Balance 1953.00 1958.00 Labs:Laboratory Tests: 09/27 437 Toxicology Random Vancomycin (mcg/mL) 12.8 Laboratory Test : 09/27 1515 Chemistry BUN (7 - 18 mg/dL) 14 5 L Creatinine (0.6 - 1.3 mg/dL) 1.2 0.6 Hematology WBC (4.5 - 11.0 x10 3/uL) 15.02 H 18.06 H Microbiology:09/25 0730 NASAL: MRSA DNA Surveillance Screen - COMP09/25 0400 BLOOD: Blood Culture - RES09/25 0345 BLOOD: Blood Culture - RES Last dialysis session: Date: 09/27/19Treatment plan: consult, change regimenRegimen:Ms. Agustin is a 74 yo female with dementia, DM2, Chronic pain, frequent UTI, DM2, RA, anxiety presented to ED from [facility] for concerns of abnormal labs,dehydration, NATHEN, suspect [...] post-HD levels 15-20 mcg/mL. at 0806 RPT #:[id number] OF REPORTPRProgress Uuux9134-27-39F16:59:00G.KZIJ42507344-9914RLVsjjsxvak for patient flboXQYHIZVDPOIJPM2380-89-62D31:06:22 [facility] 2019-09-27 13:28:00 HJoahymabsn39842821Dx96t1+0U39koNC9a8mqi gmvmD8OGb3JBTrhYz Fa+qTpupBd8Sil5yRDE90nmP/e1637-58-21U94:28:00 [facility] Progress NoteREPORT#:[id number] REPORT STATUS: SignedDATE:09/27/19 TIME: 1328 PATIENT: MAC AGUSTIN UNIT #: [id number]#: [id number] [facility] AGE: 74 SEX: F ATTEND: Joel Myers [facility] AUTHOR: Marisabel Chu DO * ALL edits [...] 87 21 115/57 82 8704/17 1246 122/85 77319/17 1245 80 26 9104/17 1230 89 25 96/54 72 9104/17 1215 80 22 66992/17 1212 104/45 6504/17 1200 97.3 High flow 10.874821 nasal /17 1200 86 26 109/55 79 9304/17 1145 [...] 21 130/66 8904/17 0921 84 24 142/85 08387/17 0901 83 20 134/99 56153/17 0846 75 19 137/60 8604/17 0830 79 18 127/59 8504/17 0816 87 30 121/57 7704/17 0800 High flow 10.484020 nasal pgypivp53/17 0800 97.5 High flow 10.238416 nasal /17 0800 83 21 139/59 81 9904/17 0746 79 21 122/57 82 9904/17 0744 22 140/62 89 47862/17 0742 80 21 132/58 84 94767/17 0740 81 20 131/91 105 56539/17 0731 88 24 141/60 86 9704/17 0715 82 20 130/63 91 08361/17 0712 84 21 123/56 80 33036/17 0710 84 20 121/59 85 38409/17 0709 83 21 119/53 76 60571/17 0700 88 25 145/64 92 42508/17 0400 98.3 80 21 122/58 79 97 High flow 10.436691 nasal fjoqqpo94/17 0350 96 High flow 11.425608 nasal jivrgtg86/17 0016 92 Nasal 5.827972 uvcoolg99/17 0000 97.0 86 19 113/59 77 89 Nasal 5.398629 txtiizw75/16 1999 Nasal 3.763879 /16 1999 97.8 92 21 128/56 80 92 Nasal 3.527149 caldflu58/16 1900 96 27 118/60 86 9204/16 1855 [...] 60 75/52 60 9504/16 1804 97 22 136/405 010 7713/16 1800 94 29 9604/16 1756 97 35 [...] 1715 95 32 9404/16 1711 97 54 226/848 395 7465/16 1706 98 38 183/683 536 7758/16 1700 97 37 113/54 78 9804/16 1655 [...] 98.1 94 32 125/54 77 94 Nasal 3.190342 wmcxdke37/16 1556 96 30 85/57 64 9204/16 1550 97 29 94/50 67 9704/16 1546 96 27 102/47 65 9804/16 1545 96 20 9804/16 1541 96 26 134/893 441 3003/16 1536 97 26 9704/16 1535 97 25 97/49 70 9604/16 1530 99 27 118/58 83 9604/16 1525 99 25 101/54 72 9704/16 1521 318 74 7267/16 1520 102 31 113/51 73 9604/16 1517 100 22 156/64 92 65859/16 1515 100 24 182/818 906 6204/16 1510 101 29 120/56 81 71200/16 1505 132 32 125/53 76 9804/16 1500 103 19 113/63 80 81268/16 1450 106 25 104/55 74 9604/16 1446 581 28 4589/16 1446 105 26 104/65 76 9804/16 1445 606 99 3530/16 1444 109 25 167/469 994 3146/16 1436 109 19 130/56 80 9904/16 1430 110 12 102/53 75 9904/16 1425 114 14 100/52 71 9904/16 1420 120 26 101/50 67 57500/16 1415 116 22 96/55 72 9804/16 1410 [...] 47 9804/16 1330 116 22 69/34 44 98 24 [...] (trace BLE), no clubbing, no cyanosisMusculoskeletal: normal inspectionNeuro/NETSUITE DEVELOPER: PERRLA moves limbs independently but does not [...] (Auto) (14.0 - 32.0 %) 2.8 L [place] % (Auto) (4.8 - 9.0 %) 6.5 Eos % (Auto) (0.3 - 3.7 %) 1.1 Baso % (Auto) (0.0 - 2.0 %) 0.2 Neut # (Auto) (2.0 - 7.6 x10 3/uL) 19.09 H Lymph # (Auto) (1.0 - 3.8 x10 3/uL) 0.61 L [place] # (Auto) (0.1 - 0.8 x10 3/uL) [...] (Auto) (14.0 - 32.0 %) 4.8 L [place] % (Auto) (4.8 - 9.0 %) 3.2 L Eos % (Auto) (0.3 - 3.7 %) 0.1 L Baso % (Auto) (0.0 - 2.0 %) 0.1 Neut # (Auto) (2.0 - 7.6 x10 3/uL) 19.89 H Lymph # (Auto) (1.0 - 3.8 x10 3/uL) 1.06 [place] # (Auto) (0.1 - 0.8 x10 3/uL) [...] Impressions:RADIOLOGY - XR CHEST 1 V 09/26 0748 Report Impression - Status: SIGNED Entered: 09/27/2019 0756 IMPRESSION: No acute abnormality as above discussed. SL: [id number] By: [email or web address] - Gian Alvarenga M.D. Diagnosis, Assessment Plan Free Text DxA P NotesFree text DxA P notes:Severe lactic acidosisSevere metabolic acidosisAcute renal failureHypocalcemiaHypomagnesemia?Septic shock vs lactic acidosis from metforminDehydrationHypothermiaDMHTNDementia with behavior disturbance Plan:Ms. Agustin is a 74 yo female with non-specific symptoms of not feeling well, poor appetite that was found to have abnormal labs at [place], sent to ED for evaluation. In the [...] scheduleCheck labs in am at 1338 RPT #:[id number] OF REPORTPRProgress Ixdn4698-09-80T62:28:00G.ZKYE48354170-0657RGIsxwfuugt for patient rnsbZVNJMFPWHUUGUO5651-12-62Y36:38:52 [facility] 2019-09-27 11:45:00 FPvlzginmjg26585953uDBEpci7mzInFxKmdsqEV vWHM7KY46o3TSBmbm qgy8AdZ7jkrl+WAPcA+dDJhUFj6293-56-21Z70:45:00 [facility] ([facility])Pharmacy Prog.Note-VancomycinREPORT#:[id number] REPORT STATUS: SignedDATE:09/27/19 TIME: 1145 PATIENT: MAC AGUSTIN UNIT #: [id number]#: [id number] [address] AGE: 74 SEX: F ATTEND: Joel Myers [facility] AUTHOR: Melissa Farah [facility] * ALL edits or amendments must [...] 1900 09/24 09/23 0700 1900Intake 2253.00TotalOutput 275TotalBalance 1978.00 Intake, 0HemodialysisIntake, IV 2253.00Output, 275UrinePatient 63.4 kg 61.4 kgWeightWeight Bed scale Bed scaleMeasurementMethod 72 Hour I O Total 09/26 0700 09/25 0700 09/24 0700 Intake Total 2253.00 Output Total 275 Balance 1977.00 Labs:Laboratory Test : 09/26 09/26 09/25 09/25 0500 0115 2145 1655 Chemistry BUN (7 - 18 mg/dL) 16 [...] M.D.RADIOLOGY - XR CHEST 1 V 09/26 5912 Report Impression - Status: SIGNED Entered: 09/27/2019 0756 IMPRESSION: No acute abnormality as above discussed. SL: [id number] By: [email or web address] - Gian Alvarenga M.D. Treatment plan: consult, change regimenRegimen:Ms. Agustin is a 74 yo female with dementia, DM2, Chronic pain, frequent UTI, DM2, RA, anxiety presented to ED from [facility] for concerns of abnormal labs,dehydration, NATHEN, suspect [...] is on acute HD per nephro. BUN/SCr /1.2, improved, NATHEN resolving, est CrCl 30 mL/min. [...] post-HD levels 15-20 mcg/mL. at 1206 RPT #:[id number] OF REPORTPRProgress Vlji5542-86-14D48:45:00G.KRGY57925304-9258NZGjgrgvfne for patient izqwIYWAKPSDCBDUIO9762-61-34M00:06:25 [facility] 2019-09-27 10:48:00 PVrahixtymv456315157RZuZipbyR3UduvINkVMd +P2p1JqUxd+/Q25FY 6LMhHElnAWaICOrAo7Le+TEROs5473-05-30K69:48:00 [facility] ([facility])Critical Care Progress NoteREPORT#:[id number] REPORT STATUS: SignedDATE:09/27/19 TIME: 1048 PATIENT: MAC AGUSTIN UNIT #: [id number]#: [id number] [address] AGE: 74 SEX: F ATTEND: Joel Myers [facility] AUTHOR: Mick Lin MD * ALL edits [...] nasal cannula 09/26 0800 O2 Flow Rate 10.492747 09/26 0800 Temp 97.5 09/26 0800 Pulse [...] (Auto) (14.0 - 32.0 %) 2.8 L [place] % (Auto) (4.8 - 9.0 %) 6.5 Eos % (Auto) (0.3 - 3.7 %) 1.1 Baso % (Auto) (0.0 - 2.0 %) 0.2 Neut # (Auto) (2.0 - 7.6 x10 3/uL) 19.09 H Lymph # (Auto) (1.0 - 3.8 x10 3/uL) 0.61 L [place] # (Auto) (0.1 - 0.8 x10 3/uL) [...] (Auto) (14.0 - 32.0 %) 4.8 L [place] % (Auto) (4.8 - 9.0 %) 3.2 L Eos % (Auto) (0.3 - 3.7 %) 0.1 L Baso % (Auto) (0.0 - 2.0 %) 0.1 Neut # (Auto) (2.0 - 7.6 x10 3/uL) 19.89 H Lymph # (Auto) (1.0 - 3.8 x10 3/uL) 1.06 [place] # (Auto) (0.1 - 0.8 x10 3/uL) [...] No acute abnormality as above discussed. SL: [id number] By: [email or web address] - Gian Alvarenga M.D. Free [...] rheumatoidarthritis, frequent UTI was brought from the assisted. She has been unwell for the past [...] be broadened to Zosyn and Vanco given assisted placement. Concern is about ischemic bowel. Also [...] is [facility] DNR/DNIPatient has profound gram-negative sepsis with [...] care time 31 minutes at 1251 RPT #:[id number] OF REPORTPRProgress Jxji1716-60-62H79:48:00G.AKIL81600449-2461KVRrmrjlmkk for patient iuqsVOTKWQEBQAETDX0440-59-69K15:51:18 [facility] 2019-09-27 07:11:00 QBtwuebbalh43263529yZqcwULpw0OrWq/tLzduC nXSleFb3R4iWuVq0w DOGcovH95pO8NaQN6nQMM8tVWW0674-63-74B00:11:00 [facility] ([facility])Nephrology Progress NoteREPORT#:[id number] REPORT STATUS: SignedDATE:09/27/19 TIME: 710 PATIENT: MAC AGUSTIN UNIT #: [id number]#: [id number] [address] AGE: 74 SEX: F ATTEND: Joel Myers [facility] AUTHOR: Rabia Aguilar MD * ALL edits or amendments must be made on the electronic/computer document * SubjectiveChief Complaint:AMS/Lactic acidosis/AKIUnable to obtain: patient conditionComments:Patient seen and evaluated, HPI no change from initial, more alert, answer simple questions Review of SystemsUnable to obtain due to:Patient's condition Objective GeneralVS/I O:Vital Signs:Date Time Temp Pulse Resp B/P B/P Pulse O2 O2 Flow FiO2 Mean Ox Delivery Rate09/26 0350 96 High flow 11.313866 nasal xlfumtj52/17 0016 92 Nasal 5.588712 edeyndj93/16 1999 Nasal 3.161127 aikdqze77/16 1999 36.6 92 21 128/56 80 92 Nasal 3.405082 oebwogv29/16 1900 96 27 118/60 86 9204/16 1855 97 27 104/59 79 94/16 1850 96 25 115/56 78 9404/16 1845 98 23 127/59 85 9404/16 1844 97 22 118/62 84 9404/16 1841 97 25 71/52 57 9404/16 1836 97 24 127/80 97 96/16 1830 96 30 106/77 88 9004/16 1820 96 26 111/56 79 7804/16 1815 96 28 93/51 65 9504/16 1812 94 37 129/51 74 9604/16 1810 93 60 75/52 60 9504/16 1804 97 22 136/368 435 7557/16 1800 94 29 9604/16 1756 97 35 [...] 1715 95 32 9404/16 1711 97 54 226/058 451 7902/16 1706 98 38 183/317 272 9653/16 1700 97 37 113/54 78 9804/16 1655 [...] 36.7 94 32 125/54 77 94 Nasal 3.411163 gpnogla72/16 1556 96 30 85/57 64 9204/16 1550 97 29 94/50 67 9704/16 1546 96 27 102/47 65 9804/16 1545 96 20 9804/16 1541 96 26 134/762 269 5221/16 1536 97 26 9704/16 1535 97 25 97/49 70 9604/16 1530 99 27 118/58 83 9604/16 1525 99 25 101/54 72 9704/16 1521 802 90 1817/16 1520 102 31 113/51 73 9604/16 1517 100 22 156/64 92 36529/16 1515 100 24 182/329 490 5645/16 1510 101 29 120/56 81 12498/16 1505 132 32 125/53 76 9804/16 1500 103 19 113/63 80 35949/16 1450 106 25 104/55 74 9604/16 1446 719 44 8827/16 1446 105 26 104/65 76 9804/16 1445 693 23 8718/16 1444 109 25 167/608 017 2122/16 1436 109 19 130/56 80 9904/16 1430 110 12 102/53 75 9904/16 1425 114 14 100/52 71 9904/16 1420 120 26 101/50 67 43639/16 1415 116 22 96/55 72 9804/16 1410 [...] 1315 115 19 91/45 65 9904/16 1312 637 37 9354/16 1300 115 21 108/52 75 9904/16 1245 114 19 104/53 76 9904/16 1240 114 20 97/51 71 9804/16 1235 113 20 93/55 71 9904/16 1230 110 25 86/47 62 9804/16 1225 109 21 80/41 55 9804/16 1222 108 22 81/40 57 9904/16 1220 106 31 74/39 51 9904/16 1215 106 21 90/54 69 92051/16 1212 101 28 84/46 60 9904/16 1210 102 25 86/49 63 9904/16 1205 106 21 95/55 71 9804/16 1200 35.904/16 1200 103 21 92/53 70 9904/16 1159 104 21 100/54 73 9904/16 1150 105 23 81/45 59 9804/16 1145 106 34 83/46 58 53468/16 1140 105 21 89/51 66 42432/16 1135 118 21 100/54 71 33666/16 1130 106 20 97/52 71 9904/16 1125 [...] 98 23 9804/16 0900 33.404/16 0815 Nasal 3.394828 nrzfgqu06/16 0720 101 18 77/50 59 24 hour I O ending at 0700: 17 0700 / 1900 Intake Total 0 Output Total Balance [...] expansionAbdomen: softGenitourinary: ballard, urineExtremities: no edemaMusculoskeletal: normal inspectionNeuro/NETSUITE DEVELOPER: altered mental statusSkin: dry ResultsFindings/Data:Laboratory Tests 09/26 [...] 09/25 09/25 09/25 09/25 0730 0726 0625 0350 0344 Chemistry POC Glucose (70 - 110 MG/DL) 107 147 H Lactic Acid (0.4 - 1.9 mmol/l) 19.1 *H 14.8 *H Troponin I (0.000 - 0.045 ng/mL) 0.033 09/25 09/25 034 0345 Chemistry Sodium (134 - 147 mEq/L) [...] Coagulation INR (0.8 - 1.2) 1.1 PTT ([place]) (25.0 - 39.5 Seconds) 22.2 L PT [...] - 32.0 %) 2.8 L 4.8 L [place] % (Auto) (4.8 - 9.0 %) 6.5 3.2 L Eos % (Auto) (0.3 - 3.7 %) 1.1 0.1 L Baso % (Auto) (0.0 - 2.0 %) 0.2 0.1 Neut # (Auto) (2.0 - 7.6 x10 3/uL) 19.09 H 19.89 H Lymph # (Auto) (1.0 - 3.8 x10 3/uL) 0.61 L 1.06 [place] # (Auto) (0.1 - 0.8 x10 3/uL) [...] (Auto) (14.0 - 32.0 %) 4.8 L [place] % (Auto) (4.8 - 9.0 %) 12.3 H Eos % (Auto) (0.3 - 3.7 %) 0.0 L Baso % (Auto) (0.0 - 2.0 %) 0.2 Neut # (Auto) (2.0 - 7.6 x10 3/uL) 21.47 H Lymph # (Auto) (1.0 - 3.8 x10 3/uL) 1.26 [place] # (Auto) (0.1 - 0.8 x10 3/uL) [...] pH (5.0 - 7.0) 5.0 Ur Specific [place] (1.005 - 1.030) 1.011 Urine Protein (NEGATIVE) [...] Date/Time Procedure - Status Source Growth 09/25 07 MRSA DNA Surveillance Screen - COMP NASAL Recent Impressions:RADIOLOGY - XR CHEST 1 V 09/25 0405 Report Impression - Status: SIGNED Entered: 09/26/2019 0138 IMPRESSION: Mildly hyperinflated, but clear lungs. Lucency beneath the left hemidiaphragm likely related to a mildlydilated gas-filled stomach. An upright view of the abdomen would beconfirmatory and better exclude pneumoperitoneum. SL: TPAINTER-HImpression By: Bridget Edward M.D.RADIOLOGY - XR CHEST 1 V 09/26 531 Report Impression - Status: SIGNED Entered: 09/26/2019545 IMPRESSION: Hypoinflation associated with interval right IJ [...] of cholecystectomy. SL: TPAINTER-HImpression By: Bridget Edward M.D.RADIOLOGY - XR CHEST 1 V 09/25 1231 Report Impression - Status: SIGNED Entered: 09/26/2019 1252 IMPRESSION:Right IJ catheter with its tip in the superior vena cava just abovethe level of the right atrium.No acute cardiopulmonary findings identified.Impression By: t.SDR.CER Elizabeth Johnson M.D.RADIOLOGY - XR CHEST 1 V 09/26 0748 Report Impression - Status: SIGNED Entered: 09/27/2019 0756 IMPRESSION: No acute abnormality as above discussed. SL: [id number] By: [email or web address] - Gian Alvarenga M.D. Laboratory [...] Delivery Device Cannula Cannula Cannula Cannula 09/25 0993 Blood Gas Puncture Site R Rad ABG [...] 98.6 O2 Delivery Device Cannula Laboratory Tests 0409/26 0544 0115 0115 0013 2145Chemistry Sodium (134 [...] Magnesium (1.8 - 2.4 mg/dL) 2.50 H 09/255 2145 2145 1827 1655Chemistry Sodium (134 - [...] %) 2.8 L 4.8 L 4.8 L [place] % (Auto) (4.8 - 9.0 %) 6.5 3.2 L 12.3 H Eos % (Auto) (0.3 - 3.7 %) 1.1 0.1 L 0.0 L Baso % (Auto) (0.0 - 2.0 %) 0.2 0.1 0.2 Neut # (Auto) (2.0 - 7.6 x10 3/uL) 19.09 H 19.89 H 21.47 H Lymph # (Auto) (1.0 - 3.8 x10 3/uL) 0.61 L 1.06 1.26 [place] # (Auto) (0.1 - 0.8 x10 3/uL) [...] with RN and HD nurse at 1229 RPT #:[id number] OF REPORTPRProgress Sizz6807-65-90N78:11:00G.FPXU10136633-8024BQOxbeixqcs for patient glksEKMXACPAWEXMGE1396-42-44X10:29:59 [facility] 2019-09-26 12:01:00 PZgnihtauyh20052715ANxpqDVxKFiPjdVS3eZjA CWSARCd+ocX7X0vJ4 zJumN9BrBnrjCFBU9tZZBP7wTw8490-38-24U43:01:00 [facility] ([facility])DT Operative NoteREPORT#:[id number] REPORT STATUS: SignedDATE:09/26/19 TIME: 1201 PATIENT: MAC AGUSTIN UNIT #: [id number]#: [id number] [address]: [address] AGE: 74 SEX: F ATTEND: Joel Myers [facility] AUTHOR: Mick Lin MD * ALL edits or amendments must be made on the electronic/computer document * Operative Report Operative NoteNote:HEMODYALISIS LINE PLACEMENT PROCEDURE Procedure: RIJ CVLIndication: need for vasopressors, needs for HD catheterOperator: Pia Richeysent: in the chart d/w nephrology, plan is to do HD day. Nephro talked to family. Date: 09/26/2019 11:45 AM Summary: Time out was called prior to beginning procedure. Using aseptic technique, the neck was prepped and draped in usual sterile fashion. [facility] already has a RIJ CVL. A guidewire [...] loss: less than 5 cc. at 1211 [facility] #:[id number] OF REPORTOPOperative arroze1625-15-92X87:01:00G.HDOR14510198-7493UWNyzqhpwhx for patient pqqoSYBYMHRCENMGPJ1267-08-83F97:12:16 [facility] 2019-09-26 11:48:00 XZzuvulqhiw08379237IzV3JUDY8YiUlR8z6abu/ 4S0sHVbq28KGAxc10 6cF6fq3TZPu4uhs9KLZVJ7hjLW2732-79-66K66:48:00 [facility] ([facility])Pharmacy Prog.Note-VancomycinREPORT#:[id number] REPORT STATUS: SignedDATE:09/26/19 TIME: 1148 PATIENT: MAC AGUSTIN UNIT #: [id number]#: [id number] [address] AGE: 74 SEX: F ATTEND: Joel Myers [facility] AUTHOR: Kathia Varela [facility] * ALL edits or amendments must be made on the electronic/computer document * Vancomycin VancomycinTreatment plan: consult, initiation of therapyRegimen:Ms. Agustin is a 74 yo female with dementia, DM2, Chronic pain, frequent UTI, DM2, RA, anxiety presented to ED from [facility] for concerns of abnormal labs,dehydration, NATHEN, suspect [...] as appropriate. Appreciate consult, at 1149 RPT #:[id number] OF REPORTPRProgress Ejef4684-70-99E96:48:00G.EIQK09625933-7473PKLppszmmsa for patient bnjaYJSFKNMRYSIXEK9348-14-76T67:49:12 [facility] 2019-09-26 11:17:00 NDysfiuqqfb89757710IRoitxSU++50SP7wLsVCE 8hD7uGpr4bs/N2+Zj uq2zvc8ArkvEAHuISbqX99d16Q4949-65-53P78:17:00 [facility] CenterClinical NoteREPORT#:[id number] REPORT STATUS: SignedDATE:09/26/19 TIME: 1117 PATIENT: MAC AGUSTIN UNIT #: [id number]#: [id number] [address] AGE: 74 SEX: F ATTEND: Joel Myers [facility] AUTHOR: Rabia Aguilar MD * ALL edits or amendments must be made on the electronic/computer document * Clinical NoteNote:HDIndication: NATHEN/Severe acidosis/probable Metformin ToxicityHD 5 hours3 .5 KHCO3 40No OLIG865YU 700Patient seen and evaluated during HD, discussed with HD nurse at 1719 RPT #:[id number] OF REPORTCLClinical wxlk3927-85-10I05:17:00G.KZDO83385619-2915SJLzzqtugut for patient qkneUAFRJZAWICHPTP3198-82-25B78:20:17 [facility] 2019-09-26 09:51:00 FPyvlvfysbc54747041pzk9thclNjURgEQp/O4Ib 3Gl91tTahBzak2HnK w0NP6HIt43hiYAig2WGzcH5F1M4825-64-76I67:51:00 [facility] ([facility])Hospitalist History PhysicalREPORT#:[id number] REPORT STATUS: SignedDATE:09/26/19 TIME: 950 PATIENT: MAC AGUSTIN UNIT #: [id number]#: [id number] ROOM/BED: C669-0TAG: 47 AGE: 74 SEX: F ATTEND: Joel Myers [facility] AUTHOR: Marisabel Chu DO * ALL edits or amendments must be made on the electronic/computer document * History of Present Illness HPIChief complaint:UnwellHPI:Ms. Agustin is a 74 yo female with dementia, DM2, Chronic pain, anxiety presented to ED from [facility] for concerns of abnormal labs and dehydration. Two daughters at bedside state that [place] has told them their mother has not [...] O2 Flow FiO2 Mean Ox Delivery Rate 09/26 719 101 18 77/50 59 09/25 0452 Nasal 3.801359 cannula 09/25 0439 91.5 09/25 0339 113 [...] (trace BLE), no clubbing, no cyanosisMusculoskeletal: normal inspectionNeuro/NETSUITE DEVELOPER: PERRLA moves limbs independentlySkin: dry, intact, normal [...] 09/25 09/25 09/25 09/25 0730 0726 0625 0357 0341 Chemistry POC Glucose (70 - 110 MG/DL) 107 147 H Lactic Acid (0.4 - 1.9 mmol/l) 19.1 *H 14.8 *H Troponin I (0.000 - 0.045 ng/mL) 0.033 09/25 09/25 034 0345 Chemistry Sodium (134 - 147 mEq/L) [...] - 5.47 IU/mL) 0.68 Laboratory Tests 09/25 0340 Coagulation INR (0.8 - 1.2) 1.1 PTT [...] pH (5.0 - 7.0) 5.0 Ur Specific [place] (1.005 - 1.030) 1.011 Urine Protein (NEGATIVE) [...] 404 Report Impression - Status: SIGNED Entered: 09/26/2019 9232 IMPRESSION: Mildly hyperinflated, but clear lungs. Lucency [...] By: Bridget Edward M.D. Diagnosis, Assessment Plan Free Text DxA P NotesFree text DxA P notes:Severe lactic acidosisSevere metabolic acidosisAcute renal failureHypocalcemiaHypomagnesemia?Septic shock vs lactic acidosis from metforminDehydrationHypothermiaDMHTNDementia with behavior disturbance Plan:Ms. Agustin is a 74 yo female with non-specific symptoms of not feeling well, poor appetite that was found to have abnormal labs at [place], sent to ED for evaluation. In the [...] heparin for DVT prophylaxsis at 1017 RPT #:[id number] OF REPORTHPHistory and physical owdvnutcadx4182-38-30O90:51:00G.UNMO75515260-5645AJSohxet ble for patient pxmkVEZKVEJFYJNGDK2137-95-00O35:17:38 [facility] 2019-09-26 08:35:00 LItfqxyezzi41052611LTbmmSRB+YENyHvINr52S SfDPiMiWuEvh/U3rq xgtV6E9HV4jMlvSrhBw6LAxVdL8545-57-75C17:35:00 [facility] ([facility])Nephrology Consultation NoteREPORT#:[id number] REPORT STATUS: SignedDATE:09/26/19 TIME: 08 PATIENT: MAC AGUSTIN UNIT #: [id number]#: [id number] [address] AGE: 74 SEX: F ATTEND: Joel Myers AUTHOR: Rabia Aguilar MD * ALL edits or amendments must be made on the electronic/computer document * History of Present IllnessRequesting clinician: Joel Myers for consult:Elevated Creatinine/severe acidosisChief complaint:Patient is unwell with abnormal labsHPI:Patient seen and evaluated, discussed with care team, 72-year-old female [facility] resident with history of diabetes mellitus type 2, dementia, frequent falls, rheumatoid arthritis, hypertension and frequent UTI who was sent to the emergency room via EMS from [facility] for being unwell and abnormal laboratories showing [...] (DEXTROSE 10% IN IV 09/26 05 WATER) Lactated Ringer's 1,000 ML X1ED STA [...] Insulin Human Regular 10 UNITS ONCE ONE 04/729 CAN (HUMAN INSULIN REG) IV 09/25 730 Glucagon 1 MG ASDIR PRN 09/25 629 AC (GLUCAGON) IM 09/26 05 Pharmaceutical Aids Sig/Rose Mary Start time Last Medication Dose Route Stop Time Status Admin Sterile Water 1.2 ML ASDIR 09/25 629 AC (WATER FOR INJECTION) IM 09/26 0524 [...] 101 18 77/50 59 09/25 0452 Nasal 3.322877 cannula 09/25 0439 33.1 09/25 0339 113 [...] expansionAbdomen: softGenitourinary: ballard, urineExtremities: no edemaMusculoskeletal: normal inspectionNeuro/NETSUITE DEVELOPER: altered mental statusSkin: dry ResultsFindings/Data:Laboratory Tests 09/25 [...] 09/25 09/25 09/25 09/25 09/25 1000 0730 2825 0604 0355Chemistry Sodium (134 - 147 mEq/L) 145 [...] Coagulation INR (0.8 - 1.2) 1.1 PTT ([place]) (25.0 - 39.5 Seconds) 22.2 L PT Patient/Control Mix (9.3 - 12.9 SECONDS) 11.7 Laboratory Tests 09/25 09/25 0933 0345 Hematology WBC (4.5 [...] (Auto) (14.0 - 32.0 %) 4.8 L [place] % (Auto) (4.8 - 9.0 %) 12.3 H Eos % (Auto) (0.3 - 3.7 %) 0.0 L Baso % (Auto) (0.0 - 2.0 %) 0.2 Neut # (Auto) (2.0 - 7.6 x10 3/uL) 21.47 H Lymph # (Auto) (1.0 - 3.8 x10 3/uL) 1.26 [place] # (Auto) (0.1 - 0.8 x10 3/uL) [...] pH (5.0 - 7.0) 5.0 Ur Specific [place] (1.005 - 1.030) 1.011 Urine Protein (NEGATIVE) [...] GaryTP6 - Amadeo Edward M.D. Laboratory Tests 09/26 451 Blood Gas Puncture Site [...] pH (5.0 - 7.0) 5.0 Ur Specific [place] (1.005 - 1.030) 1.011 Urine Protein (NEGATIVE) [...] pH (5.0 - 7.0) 5.0 Ur Specific [place] (1.005 - 1.030) 1.011 Urine Protein (NEGATIVE) [...] will proceed with HD at 1122 RPT #:[id number] OF [id number]:35:00G.[id number] for patient [id number]:22:39 [facility] 2019-09-26 07:00:00 [id number]+POSOMN [id number]+o 6agkhnTee0jyQQ1Cok5k+[id number]:00:00 [facility] ([facility])Critical Care Consult NoteREPORT#:[id number] REPORT STATUS: SignedDATE:09/26/19 TIME: 0700 PATIENT: NIKOLEMAC Pollack UNIT #: [id number]#: [id number] [address] AGE: 74 SEX: F ATTEND: [facility]rs [facility] AUTHOR: Israel Vaughan MD * ALL edits [...] rheumatoidarthritis, frequent UTI was brought from the assisted. She has been unwell for the past [...] be broadened to Zosyn and Vanco given assisted placement. Concern is about ischemic bowel. Also [...] 09/25 0630 AC (morphine SULFATE) IV 09/26 05 Ziprasidone 20 MG X1ED STA 09/25 0624 [...] 0424 DC 09/25 (Calcium Gluconate) IV 09/25 043 0513 Sodium Chloride 50 ML (Sodium Chloride 50ML) Sodium Bicarbonate 150 MEQ X1ED STA 09/25 0424 DC 09/25 (SODIUM BICARBONATE) IV 09/25 0425 0511 Sodium Chloride 1,000 ML X1ED STA 09/25 0347 DC 09/25 (SODIUM CHLORIDE IV 09/25 044 0401 0.9%) Sodium Chloride 1,000 ML X1ED [...] Nasal cannula 09/26 451 O2 Flow Rate 3.506951 09/25 045 Temp 33.1 09/25 0439 Pulse [...] cyanosis, no edema, no pedal edemaMusculoskeletal: decreased ROMNeuro/NETSUITE DEVELOPER: no sensory deficits Results:Findings/Data:Laboratory Tests 09/26/19 0345:[Embedded [...] Coagulation INR (0.8 - 1.2) 1.1 PTT ([place]) (25.0 - 39.5 Seconds) 22.2 L PT [...] pH (5.0 - 7.0) 5.0 Ur Specific Girard (1.005 - 1.030) 1.011 Urine Protein (NEGATIVE) [...] RECD09/25 0345 BLOOD: Blood Culture - RECD09/25 034 NASAL: MRSA DNA Surveillance Screen - [...] - CT ABD PELVIS W/O CONT 09/25 0446 Report Impression - Status: SIGNED Entered: 09/26/201932 [...] Postoperative change of cholecystectomy. SL: TPAINTER-HImpression By: GaryTPTootie - Amadeo Edward M.D. Diagnosis, Assessment Plan [...] rheumatoidarthritis, frequent UTI was brought from the assisted. She has been unwell for the past [...] be broadened to Zosyn and Vanco given assisted placement. Concern is about ischemic bowel. Also [...] DVT and GI prophylaxis Israel Vaughan MD FACP FCCP04.25 AMConsultants: critical care/fiberglass machine operator, hospitalist, nephrologyPlan discussed with: nurseCritical care time: Minutes: 65 Code Status/Resusc. DiscussionCode status: do not resuscitate at 0726 RPT #:[id number] OF REPORTPIYkuhqgbvevwc7522-82-80Y15:00:00G.[id number]- 0077AVAvailable for patient bleqSCWHDGXWXAZQGK3612-26-82X12:27:13 [facility]ACL 2019-09-26 07:00:00 CBivxgokguz60476676kpVBOU0I9de7XVVzSyVrR AGDWLOi/jpW1mUlKn sM4qlDzR10pWqfHoGTFDnQuXMr4022-48-67T18:00:00 [facility] ([facility])Critical Care Consult NoteREPORT#:[id number] REPORT STATUS: SignedDATE:09/26/19 TIME: 0700 PATIENT: MAC AGUSTIN UNIT #: [id number]#: [id number] [address] AGE: 74 SEX: F ATTEND: [facility] AUTHOR: Israel Vaughan MD * ALL edits [...] rheumatoidarthritis, frequent UTI was brought from the assisted. She has been unwell for the past [...] be broadened to Zosyn and Vanco given assisted placement. Concern is about ischemic bowel. Also [...] 0630 AC (DEXTROSE 10% IN IV 09/26 528 WATER) Lactated Ringer's 1,000 ML X1ED STA [...] Nasal cannula 09/26 451 O2 Flow Rate 3.797367 09/26 451 Temp 33.1 09/25 0439 Pulse Ox 95 09/25 0339 B/P 139/94 09/25 0339 B/P Mean 109 09/25 338 Pulse 113 09/25 0339 Resp [...] cyanosis, no edema, no pedal edemaMusculoskeletal: decreased ROMNeuro/NETSUITE DEVELOPER: no sensory deficits Results:Findings/Data:Laboratory Tests 09/26/19 0345:[Embedded [...] Coagulation INR (0.8 - 1.2) 1.1 PTT ([place]) (25.0 - 39.5 Seconds) 22.2 L PT [...] pH (5.0 - 7.0) 5.0 Ur Specific Girard (1.005 - 1.030) 1.011 Urine Protein (NEGATIVE) [...] Microbiology:09/25 040 BLOOD: Blood Culture - RECD09/25 034 BLOOD: Blood Culture - RECD09/25 034 NASAL: MRSA DNA Surveillance Screen - [...] 531 Report Impression - Status: SIGNED Entered: 09/26/2019545 IMPRESSION: Hypoinflation associated with interval right IJ [...] rheumatoidarthritis, frequent UTI was brought from the assisted. She has been unwell for the past [...] be broadened to Zosyn and Vanco given assisted placement. Concern is about ischemic bowel. Also [...] DVT and GI prophylaxis Israel Vaughan MD [facility].25 AMConsultants: critical care/fiberglass machine operator, hospitalist, nephrologyPlan discussed with: nurseCritical care time: Minutes: 65 Code Status/Resusc. DiscussionCode status: do not resuscitate at 0726 Addendum 1: 09/26/19904 by Mick Lin MD Labs reviewedHas worsening lactic acidSeptic shockShe is currently on Levophed drip, hypotensiveHypothermia I talked to the family, talk with the POA. I explained her multiple medical problems, and her poor prognosis. Patient wants her to be DNR/DNI. All questions were answered at 0906 [facility] #:[id number] OF REPORTCPTdjntwyigdot6915-89-61D91:00:00G.[id number]- 0077AVAvailable for patient awkeVHORANBCOMEEQL8850-74-98C32:06:38 HCACL 2019-09-26 07:00:00 UBwjpxmbacx513395385xxj4p0ieiu2+IdXMVaPk PWNBnSlNRO9EN/Cxe F6OJIz2uHje9O/ygVnXpnzQcXv5008-31-89V61:00:00 [facility] ([facility])Critical Care Consult NoteREPORT#:[id number] REPORT STATUS: SignedDATE:09/26/19 TIME: 0700 PATIENT: MAC AGUSTIN UNIT #: [id number]#: [id number] [address] [birth year] AGE: 74 SEX: F ATTEND: [...] rheumatoidarthritis, frequent UTI was brought from the assisted. She has been unwell for the past [...] be broadened to Zosyn and Vanco given assisted placement. Concern is about ischemic bowel. Also [...] 09/25 06 AC (morphine SULFATE) IV 09/26 05 Ziprasidone 20 MG X1ED STA 09/25 06 DC (GEODON 20MG VIAL) IM 09/25 0625 [...] 06 AC (DEXTROSE 10% IN IV 09/26 0429 WATER) Dextrose/Water 250 ML ASDIR PRN 09/25 06 AC (DEXTROSE [...] 0424 DC 09/25 (SODIUM BICARBONATE) IV 09/25 042 0511 Sodium Chloride 1,000 ML X1ED STA 09/25 0347 DC 09/25 (SODIUM CHLORIDE IV 09/25 044 0401 0.9%) Sodium Chloride 1,000 ML X1ED [...] Nasal cannula 09/26 451 O2 Flow Rate 3.502130 09/25 045 Temp 33.1 09/25 438 Pulse Ox 95 09/25 0339 B/P 139/94 09/25 0339 B/P Mean 109 04/16 0339 Pulse 113 09/25 0339 Resp 26 [...] cyanosis, no edema, no pedal edemaMusculoskeletal: decreased ROMNeuro/NETSUITE DEVELOPER: no sensory deficits Results:Findings/Data:Laboratory Tests 09/26/19 0345:[Embedded [...] pH (5.0 - 7.0) 5.0 Ur Specific Girard (1.005 - 1.030) 1.011 Urine Protein (NEGATIVE) [...] data:Recent Impressions:RADIOLOGY - XR CHEST 1 V 09/255 Report Impression - Status: SIGNED Entered: 09/26/20193 IMPRESSION: Mildly hyperinflated, but clear lungs. Lucency beneath the left hemidiaphragm likely related to a mildlydilated gas-filled stomach. An upright view of the abdomen would beconfirmatory and better exclude pneumoperitoneum. SL: TPAINTER-HImpression By: Bridget Edward M.D.RADIOLOGY - XR CHEST 1 V 09/25 0532 Report Impression - Status: SIGNED Entered: 09/26/201946 [...] Postoperative change of cholecystectomy. SL: TPAINTER-HImpression By: GaryTPTootie - Amadeo Edward M.D. Diagnosis, Assessment Plan [...] rheumatoidarthritis, frequent UTI was brought from the assisted. She has been unwell for the past [...] be broadened to Zosyn and Vanco given assisted placement. Concern is about ischemic bowel. Also [...] DVT and GI prophylaxis Israel Vaughan MD [facility].25 AMConsultants: critical care/fiberglass machine operator, hospitalist, nephrologyPlan discussed with: nurseCritical care time: [...] talked to family about HD. at 1210 RPT #:[id number] OF REPORTZOThwtddeyhkja5923-25-33P88:00:00G.[id number]- 0077AVAvailable for patient ofeqXNNLDMXOIYIUPU1872-24-71J50:11:21 HCACL 2019-09-26 07:00:00 ASuzejmlqif988248733eqt4u5tjyj2+IdXMVaPk OGFAnLuWXI8QM/Cxe F9YCBe4kPwj4Z/qiUpXzbyLgEv1144-40-84X25:00:00 [facility] ([facility])Critical Care Consult NoteREPORT#:[id number] REPORT STATUS: SignedDATE:09/26/19 TIME: 0700 PATIENT: MAC AGUSTIN UNIT #: [id number]#: [id number] [address]: [birth year] AGE: 74 SEX: F ATTEND: Joel Myers [facility] AUTHOR: Israel Vaughan MD * ALL edits [...] rheumatoidarthritis, frequent UTI was brought from the assisted. She has been unwell for the past [...] be broadened to Zosyn and Vanco given assisted placement. Concern is about ischemic bowel. Also [...] Admin Piperacillin Sod/ 3.375 GM Q8H 09/25 07 UNV Tazobactam Sod IV 10/09 0714 (ZOSYN [...] 0424 DC 09/25 (Calcium Gluconate) IV 09/25 043 0513 Sodium Chloride 50 ML (Sodium Chloride [...] Nasal cannula 09/26 451 O2 Flow Rate 3.826895 09/26 451 Temp 33.1 09/25 043 Pulse Ox 95 09/25 338 B/P 139/94 09/25 338 B/P Mean 109 09/25 338 Pulse 113 09/25 033 Resp 26 09/25 338 24 hour I [...] cyanosis, no edema, no pedal edemaMusculoskeletal: decreased ROMNeuro/NETSUITE DEVELOPER: no sensory deficits Results:Findings/Data:Laboratory Tests 09/26/19 0345:[Embedded [...] Comment LARGE PLATELETS Poikilocytosis 2+ Laboratory Tests 04/16 0415 Urines Urine Color (YEL/STRAW) YELLOW Urine Appearance (CLEAR) SL CLOUDY Urine pH (5.0 - 7.0) 5.0 Ur Specific Girard (1.005 - 1.030) 1.011 Urine Protein (NEGATIVE) [...] - RECD09/25 344 BLOOD: Blood Culture - RECD09/25 034 NASAL: MRSA DNA Surveillance Screen - ORD Radiology data:Recent Impressions:RADIOLOGY - XR CHEST 1 V 09/25 404 Report Impression - Status: SIGNED Entered: 09/26/2019 [...] Mild chronic bilateral mastoiditis. SL: TPAINTER-HImpression By: t.WATSON Edward M.D.CAT SCAN - CT HEAD/BRAIN W/O [...] rheumatoidarthritis, frequent UTI was brought from the assisted. She has been unwell for the past [...] be broadened to Zosyn and Vanco given assisted placement. Concern is about ischemic bowel. Also [...] bear hugger DVT and GI prophylaxis Israel Ahmed, [facility] AMConsultants: critical care/fiberglass machine operator, hospitalist, nephrologyPlan discussed with: nurseCritical care time: [...] talked to family about HD. at 1210 RPT #:[id number] OF REPORTJEBynsseukwrrh0997-90-29W39:00:00G.[id number]- 0077AVAvailable for patient tnhvVPIBKNZRSXHGOA9119-63-51J95:11:21 [facility] 2019-09-26 03:42:00 ADikbseehac02225651Lf0i6OtqHphPGh4C/QYHo UowXKBHZ4WczFkFY9 MC2UY6083/CqiojvlbDrUeJVzm6432-04-30J50:42:00 [facility] ([facility])EMERGENCY PROVIDER REPORTREPORT#:[id number] REPORT STATUS: SignedDATE:09/26/19 TIME: 341 PATIENT: MAC AGUSTIN UNIT #: [id number]#: [id number] [address] 74 SEX: F PCP PHYS: No Primary or Family PhysicianSERVICE AUTHOR: Facundo Phan MD * ALL edits or amendments must be made on the electronic/computer document * HPI-General Illness Free Text HPI NotesFree Text HPI Kevak23-xilu-oiu female arrives with EMS for primary concern of dehydration.Patient arrived from [facility].Patient has history of dementia review of system is not available. EMS reports that patient has been feeling unwell for some time, assisted has collected blood work and discovered that patient was in acute renal failure with elevated potassium of 5.0Patient has past medical history of diabetes type 2Alzheimer's type dementiaChronic painAnxietyMigraine headacheFrequent fallsIncontinence of bowel and bladderRheumatoid arthritisFrequent UTIsEssential hypertensionDementia with behavioral disturbances half-way records states that patient has a DNR status. GeneralConfirmed Patient YesPatient Type New patientInitial Greet Date/Time 09/26/19338PCPSubwilver Calvert MD COVID-19 RiskCDC COVID RiskReports Age 65 or older, Reports Signif co-morbidity, Denies Exp to person + forCOVID, Denies Exp to PUI, Denies Travel from affected area, Denies Lower resp symptoms, Denies Fever PresentationChief Complaint __ (Dehydration , renal failure)Hx Obtained From EMS, half-way records Review of Systems ROS StatementsAll systems [...] Temp 33.1 09/25 0439 O2 Flow Rate 3.242372 09/25 0452 Last Documented: Result Date Time O2 Delivery Nasal cannula 09/26 451 O2 Flow Rate 3.699088 09/25 045 Temp 33.1 09/25 0439 Pulse Ox 95 09/25 0339 B/P 139/94 09/25 0339 B/P Mean 109 09/25 0339 Pulse 113 09/25 0339 Resp 26 09/25 0339 Review of Vital Signs Reviewed, Vital signs abnormal, tachycardia Physical ExamRectum Rectum/Perineum No gross blood, No discharge, No fecal impaction, No fissures, No hemorrhoids, No lesions, No mass, Sphincter tone NL, rash of labia and perineum Free Text PE NotesFree Text PE NotesGENERAL- Awake, alert-Frail elderly female-Signs of moderate dementia-Cooperative with exam-Uncomfortable gdgbiemnd-Hqq-zprnpujzfERQO- Atraumatic, normocephalicNECK- Supple, FROMEYES- EOMI, conjunctiva normalENT: [...] pH (5.0 - 7.0) 5.0 Ur Specific Girard (1.005 - 1.030) 1.011 Urine Protein (NEGATIVE) [...] Coagulation INR (0.8 - 1.2) 1.1 PTT ([place]) (25.0 - 39.5 Seconds) 22.2 L PT [...] Date/Time Procedure - Status Source Growth 09/25 040 Blood Culture - RECD BLOOD 09/25 034 Blood Culture - RECD BLOOD 09/25 034 MRSA DNA Surveillance Screen - ORD NASAL Recent Impressions:RADIOLOGY - XR CHEST 1 V 09/25 0405 Report Impression - Status: SIGNED Entered: 09/26/2019 0413 IMPRESSION: Mildly hyperinflated, but clear lungs. Lucency beneath the left hemidiaphragm likely related to a mildlydilated gas-filled stomach. An upright view of the abdomen would beconfirmatory and better exclude pneumoperitoneum. SL: TPAINTER-HImpression By: GaryTP6 - Amadeo Edward [...] cholecystectomy. SL: TPAINTER-HImpression By: Bridget Edward M.D. 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 correctly 0 Horizontal EO movements [...] Total 2 NIH Stroke Score Timing Time 0339 Date 09/26/19Glasgow Coma Score > Age 5 Adrián Coma Score > Age 5 Response Value [...] 1 MG ASDIR PRN 09/25 0630 AC IM 09/26 0529 Pharmaceutical Aids Sig/[place] Start time Last Medication Dose Route Stop Time Status Admin Sterile Water 1.2 ML ASDIR 09/25 0630 AC IM 09/26 0524 ConsultationConsultation 1 Referral/Consult Name Israel Vaughan MD Pressure Washer Called Video Player Mechanic Requested Call Time 0646 Requested Call Date 09/26/19 Call Returned Call returned Call Returned Time 0646 Call Returned Date 09/26/19 Pressure Washer Will see patient, Agrees with eval, Agrees with plan, EVALUATED PATIENT IN ER Consultation 2 Referral/Consult Name; Yo,In Ramandeep Pressure Washer Called General Surgery Requested Call Time 0647 Requested Call Date 09/26/19 Call Returned Call returned Call Returned Time 0647 Call Returned Date 09/26/19 Pressure Washer Will see patient, Agrees with eval, Agrees with planConsultation 3 Referral/Consult Name; Sofia Vaughan MD Pressure Washer Called Nephrology Requested Call Time 0648 Requested Call Date 09/26/19 Call Returned Call returned Call Returned Time 0648 Call Returned Date 09/26/19 Pressure Washer Will see patient, Agrees with eval, Agrees with plan Patient Discharge Departure Vital Signs/ConditionVital SignsFirst Documented: Result Date Time Pulse Ox 95 09/25 0339 B/P 139/94 09/25 0339 B/P Mean 109 09/25 0339 O2 Delivery Room air 09/25 338 Pulse 113 09/25 0339 Resp 26 09/25 0339 Temp 33.1 09/25 0439 O2 Flow Rate 3.257967 09/25 0452 Last Documented: Result Date Time O2 Delivery Nasal cannula 09/26 451 O2 Flow Rate 3.122976 09/25 0452 Temp 33.1 09/25 0439 Pulse [...] Kat MD Admit Physician Hospitalist Request Time 0639 Request Date 09/26/19 )( Admission Accepts Yes )( Accepted Time 0639 )( Accepted Date 09/26/19 Call Information will see patient, agrees with eval, agrees with plan, ADMISSION PLACED UNDER DR CY LIZAMA-Joey Discharge PlanCD Criteria Met for Testing NoTest [...] Notes Summary 74-year-old female brought in from assisted for multiple problemsI spoke with the family and confirmed that patient is DNR. Work-up revealed-Severe lgkbgvje-Lpkrkukhzwap-Mpfgq of jzgeah-WJW-Ojljbf acid of 14.8-Acute renal rvysplv-Oxfyfdsjfxngi-Owojtfgmekonxa-High anion gap yuddherx-Hovktgvbihotooi-Pqsptfr on CT scan-Incidentally patient has findings of prior cholecystectomy-Moderately dilated stomach representing potential gastritis-Diffuse xsbdelhp-Bchhdbljyrl-Ufoyg hypoactive delirium PlanElectrolytes were replaced ALEX placed [...] the management of the patient. at 0706RPT #:[id number] OF REPORTBaylor University Medical Center department ahfbpx7027-19-22X78:42:00G.ZMAO24336503-0224HDGsvafgwfm for patient rwjhZMNHHPNPTIORMN8443-00-45A10:06:42 [facility]
[2023-12-02 06:03] LABS: Absolute Basophils 0.1 K/uL (0-0.5); Absolute Eosinophils 0.4 K/uL (0-0.5); Absolute Lymphocytes (CBC) 1.7 K/uL (0.7-4.9); Absolute Monocytes 0.7 K/uL (0.1-1.3); Absolute Neutrophil 8.8 K/uL (1.8-8.0); Basophils % 0.6 % (0-1.3); Eosinophils % 3.2 % (0-4.4); Hematocrit 52.9 % (36.0-45.0); Lymphocytes % 14.6 % (15.3-44.8); MCH 28.4 pg (27.0-35.0); MCHC 32.2 g/dL (32.0-36.0); MCV 88.4 fL (80-100); MPV 9.9 fL (7.6-11.3); Monocytes % 5.6 % (3.3-12.3); Nucleated RBC Absolute Count 0.1 (0-0); Nucleated Red Blood Cells % 1.1 % (0-0); Platelets 129 thou/uL (152-406); RBC Red Blood Cell Count 5.98 M/uL (3.86-4.86); Red Cell Distribution Width 14.9 % (12.1-15.2)
[2023-12-02 06:04] LABS: PT Prothrombin Time 10.3 SECONDS (9.4-12.5); Protime INR 0.93
[2023-12-02 06:24] LABS: Blood Morphology Comment NOT SEEN (NOT SEEN); Platelet Estimate ADEQ; White Blood Cell Scan OK (OK)
[2023-12-02] MEDS ORDERED: NA CHLORIDE 0.9% 1,000 ML ONE (06:47)
[2023-12-02 07:32] LABS: Albumin 3.1 g/dL (3.4-5.0); Albumin/Globulin Ratio 0.7 (1.1-1.8); Alkaline Phosphatase 90 U/L (45-117); Anion Gap 11.7 mEq/L (5.0-15.0); BUN Blood Urea Nitrogen 29 mg/dL (7-18); Bicarbonate 23 mEq/L (21-32); Bilirubin Total 0.2 mg/dL (0.2-1.0); Globulin 4.5 g/dL (2.3-3.5); Glomerular Filtration Rate 48 ml/min (=/>90); Glucose Level 120 mg/dL (74-106); Lipase 57 U/L (13-75); Magnesium 1.5 mg/dL (1.6-2.4); NT PRO-BNP 140 pg/mL (<450); Potassium 4.7 mEq/L (3.5-5.1); Protein, Total 7.6 g/dL (6.4-8.2); Sodium Level 140 mEq/L (136-145); Troponin High Sensitivity 8.9 pg/mL (<58.9)
[2023-12-02 07:35] LABS: ALT/SGPT < 14 U/L (13-56); AST/SGOT < 10 U/L (15-37); Bilirubin Direct < 0.2 mg/dL (0-0.2)
[2023-12-02 08:23] LABS: Specific Gravity 1.016 (1.005-1.030); Urine Bacteria >50 /HPF (<20); Urine Bilirubin NEGATIVE (Negative); Urine Blood Trace (Negative); Urine Clarity Extremely Turbid (Clear); Urine Color Light-Orange (Yellow); Urine Culture Reflex Order REFLEXED; Urine Glucose NEGATIVE (Negative); Urine Ketones TRACE (Negative); Urine Micro Reflex YN NO BILL MICROSCOPIC; Urine Nitrite NEGATIVE (Negative); Urine Protein 1+ (Negative); Urine Urobilinogen Normal (Normal); Urine WBC >50 /HPF (<5); Urine WBC Clump Occasional /HPF (None Seen)
--- NOTE | 2023-12-02 09:06 | RAD REPORT ---
EXAM DESCRIPTION: CT - Chest Abd Pelvis Wo Con - 12/02/2023 8:40 am CLINICAL HISTORY: CHEST PAIN COMPARISON: Chest Single View dated 12/02/2023; CT ABDOMEN PELVIS WO CONTRAST dated 09/04/2011 TECHNIQUE: Thin axial CT images of the chest, abdomen, and pelvis, performed without IV contrast. Mu ltiplanar reformats were generated and reviewed. All CT scans are performed using dose optimization technique as appropriate and may include automated exposure control or mA/KV adjustment according to patient size. FINDINGS: The lungs are clear apart from mild right basilar reticular opacities, favored to relate t o scarring or atelectasis.No pleural or pericardial effusion.No intrathoracic adenopathy. The liver, spleen, pancreas, adrenal glands and kidneys are within normal limits, apart from a left s uperior pole renal 3.3 cm fluid density cyst. No bowel obstruction, free air, free fluid or abscess. Fusiform aneurysmal dilation of the infrarenal abdominal aorta, measuring 3.2 cm in greatest diameter. The mild apparent wall thickening along the ascending colon although nondistention limits evaluation. The distal colon shows a smooth appearance of its wall, with possible loss of haustral contours. Small air-fluid level in the rectum. No pathol ogic lymphadenopathy in the abdomen or pelvis. No worrisome osseous finding. IMPRESSION: Colonic findings as above, may reflect sequelae of mild proctocolitis. Fusiform infrarenal abdominal aortic aneurysm, up to 3.2 cm in greatest diameter No other acute findings.
[2023-12-02] MEDS ORDERED: CEFTRIAXONE 1000 MG/VIAL ONE ×2 (10:11→10:15)
[2023-12-02] MEDS ORDERED: NA CHLORIDE 0.9% 0 ML ONE (10:11)
[2023-12-02] MEDS ORDERED: NA CHLORIDE 0.9% 50 ML ONE (10:13)
--- NOTE | 2023-12-02 11:01 | EDPHYS ---
Physician Documentation [facility] Name: Ariella Bustillo Age: 78 yrs Sex: Female : 1945 Arrival Date: 12/02/2023 Time: 04:40 Bed 4 Private MD: ED Physician David Foy HPI: 12/01 04:55 This 78 yrs old Female presents to ER via Unassigned with complaints of chest sp4 pain . 06:55 78-year-old female [facility] with vague complaints of chest pain, past sp4 medical history reveals diabetes, seizures, dry eyes, coronary artery disease, restless leg syndrome, persistent nausea,. [facility]. Medications include cranberry tabs, Pepcid, artificial tears, nitroglycerin as needed, acetaminophen as needed, metformin, glimepiride, valproic acid, Lipitor, Remeron, Depakote, promethazine, Sitagliptin, Imodium, acetaminophen, additional history includes GERD, mood disorder, insomnia, generalized anxiety disorder, essential hypertension, amnesia, major depressive disorder, hyperlipidemia, balance disorder, type 2 diabetes, osteoarthritis, Alzheimer's type dementia, muscle wasting atrophy, dysphagia, rheumatoid arthritis, dysphagia, cognitive communication deficit. Historical: - Allergies: 05:00 PENICILLINS; jw7 09:55 Iodine; hb - Home Meds: 05:00 artificial tears(hypromellose) 0.5 % ophthalmic (eye) drops 2 drop 2 times per day jw7 [Active]; Depakote Sprinkles 125 mg Oral Capsule 2 times per day [Active]; glimepiride 1 mg Oral tablet 1 tab 2 times per day [Active]; Imodium Oral 2 mg every 4 hours PRN [Active]; Lipitor 10 mg Oral tablet every day at bedtime [Active]; metformin 500 mg Oral tablet 2 times per day [Active]; Pepcid 20 mg Oral tablet daily [Active]; promethazine 25 mg Oral tablet 1 tab every 6 hours [Active]; Remeron 15 mg Oral tablet every day at bedtime [Active]; sitagliptin phosphate 50 mg Oral tablet daily [Active]; Zyrtec 10 mg Oral tablet daily [Active]; - PMHx: 05:00 Alzheimer's disease; Anterograde Amnesia; Anxiety; Dementia; diabetes mellitus; jw7 DYSPHAGIA; Gastroesophageal reflux disease; insomnia; osteoarthritis; Rheumatoid Arthritis; - PSHx: 05:00 Appendectomy; back surgery; jw7 - Immunization history:: Adult Immunizations up to date, Client reports receiving the 2nd dose of the Covid vaccine, Pneumococcal vaccine is up to date, Flu vaccine is up to date. - Infectious Disease History:: Denies. - Social history:: Smoking status: Patient denies any tobacco usage or history of. Patient/guardian denies using alcohol, street drugs, IV drugs. - Family history:: not pertinent. ROS: 06:55 Constitutional: Negative for fever, chills, and weight loss, positive for chest pain sp4 06:55 All other systems are negative, Exam: 06:55 Constitutional: This is a well developed, well nourished patient who is awake, alert, sp4 and in no acute distress. Head/Face: Normocephalic, atraumatic. Eyes: Pupils equal round and reactive to light, extra-ocular motions intact. Lids and lashes normal. Conjunctiva and sclera are not injected. Cornea within normal limits. Periorbital areas with no swelling, redness, or edema. ENT: Nares patent. No nasal discharge, no septal abnormalities noted. Tympanic membranes are normal and external auditory canals are clear. Oropharynx with no redness, swelling, or masses, exudates, or evidence of obstruction, uvula midline. Mucous membranes moist. Neck: Trachea midline, no thyromegaly or masses palpated, and no cervical lymphadenopathy. Supple, full range of motion without nuchal rigidity, or vertebral point tenderness. Chest/axilla: Normal chest wall appearance and motion. Nontender with no deformity. No lesions are appreciated. Cardiovascular: Regular rate and rhythm with a normal S1 and S2. No gallops, murmurs, or rubs. Normal PMI, no JVD. No pulse deficits. Respiratory: Lungs have equal breath sounds bilaterally, clear to auscultation and percussion. No rales, rhonchi or wheezes noted. No increased work of breathing, no retractions or nasal flaring. Abdomen/GI: Soft, with normal bowel sounds. No distension or tympany. No guarding or rebound. No evidence of tenderness throughout. Back: No spinal tenderness. No costovertebral tenderness. Skin: Warm, dry with normal turgor. Normal color with no rashes, no lesions, and no evidence of cellulitis. MS/ Extremity: Pulses equal, no cyanosis. Neurovascular intact. Full, normal range of motion. Neuro: Awake and alert, GCS 15, oriented to person, Cranial nerves II-XII grossly intact. Motor strength 5/5 in all extremities. Sensory grossly intact. Signs of moderate dementia Psych: Awake, alert, with orientation to person, signs of moderate dementia 06:55 ECG was reviewed by the Attending Physician. EKG at 0 447 reveals normal sinus rhythm, left axis deviation. EKG rate 97. Vital Signs: 04:56 BP 155 / 69; Pulse 80; Resp 21 S; Temp 97.7(O); Pulse Ox 97% on R/A; Weight 72.57 kg; jw7 Height 5 ft. 1 in. ; Pain 8/10; 06:05 BP 129 / 64; Pulse 91; Resp 18; Pulse Ox 95% on R/A; kd4 08:05 BP 139 / 70; Pulse 90; Resp 18; Pulse Ox 100% on R/A; ld1 09:01 Pulse 76; Resp 15; Pulse Ox 100% on R/A; ld1 11:04 BP 147 / 60 LA Supine (auto/reg); Pulse 66 MON; Resp 23 S; Pulse Ox 98% on R/A; le1 11:14 BP 137 / 72; Pulse 84; Resp 18; Pulse Ox 99% on R/A; ld1 04:56 Body Mass Index 30.23 (72.57 kg, 154.94 cm) [facility] 04:56 Pain Scale: Adult [facility] [place] Coma Score: 06:55 Eye Response: spontaneous(4). Motor Response: obeys commands(6). Verbal Response: sp4 oriented(5). Total: 15. MDM: 04:55 Patient medically screened. sp4 07:00 Differential Diagnosis altered mental status, sepsis, flu, Chest pain. Data reviewed: sp4 vital signs, nurses notes, EMS record, old medical records, lab test result(s), EKG, radiologic studies, CT scan, plain films. Consideration of Admission/Observation Escalation of care including admission/observation considered. Transition of care: After a detail discussion of the patient's case, care is transferred to David Foy MD. ED course: Extensive workup is pending. Patient care signed out to daytime provider. 14:29 I considered the following discharge prescriptions or medication management in the rt emergency department Medications were administered in the Emergency Department. See MAR. Independent interpretation of the following test(s) in the Emergency Department CT Scan: My interpretation is No bowel obstruction syndrome interpretation of CT scan images. Care significantly affected by the following chronic conditions: Dementia, diabetes. Counseling: I had a detailed discussion with the patient and/or guardian regarding the historical points, exam findings, and any diagnostic results supporting the discharge/admit diagnosis, lab results, radiology results, the need for outpatient follow up. Response to treatment: the patient's symptoms have markedly improved after treatment. ED course: Along discussion with the patient's daughter, which is true UTI, does not wish to be admitted to the hospital. Offered repeat troponin testing, daughter wishes to forego this at this time., Patient to follow-up as an outpatient,, cautions discussed.. 12/01 04:55 Order name: Basic Metabolic Panel; Complete Time: 08:04 sp4 12/01 04:55 Order name: CBC with Diff; Complete Time: 06:52 sp4 12/01 04:55 Order name: LFT's; Complete Time: 08:04 sp4 12/01 04:55 Order name: Magnesium; Complete Time: 08:04 sp4 12/01 04:55 Order name: NT PRO-BNP; Complete Time: 08:04 sp4 12/01 04:55 Order name: PT-INR; Complete Time: 06:52 sp4 12/01 04:55 Order name: Troponin HS; Complete Time: 08:04 sp4 12/01 04:55 Order name: Urinalysis W/Microscopic; Complete Time: 09:21 sp4 12/01 06:07 Order name: CBC Smear Scan; Complete Time: 06:52 EDMS 12/01 06:08 Order name: Lipase; Complete Time: 08:04 EDMS 12/01 08:26 Order name: Urine Culture EDMS 12/01 04:55 Order name: XRAY Chest (1 view) sp4 12/01 08:36 Order name: Chest Abd Pelvis Wo Con; Complete Time: 09:21 EDMS 12/01 04:55 Order name: Cardiac monitoring; Complete Time: 04:56 sp4 12/01 04:55 Order name: EKG - Nurse/Tech; Complete Time: 04:56 sp4 12/01 04:55 Order name: IV Saline Lock; Complete Time: 04:56 sp4 12/01 04:55 Order name: Labs collected and sent; Complete Time: 06:03 sp4 12/01 04:55 Order name: O2 Per Protocol; Complete Time: 04:56 sp4 12/01 04:55 Order name: O2 Sat Monitoring; Complete Time: 04:56 sp4 EC:55 Rate is 97 beats/min. Rhythm is regular, Normal Sinus Rhythm. Left axis deviation sp4 noted. CO interval is normal. QRS interval is normal. QT interval is normal. No Q waves. T waves are Normal. No ST changes noted. Clinical impression: No evidence of ischemia. Interpreted by me. Reviewed by me. Administered Medications: 06:59 Drug: NS 0.9% IV 1000 ml IV at 125 ml/hr continuous Route: IV; Rate: 125 ml/hr; Site: [facility] right forearm; 10:14 Drug: Rocephin - Rocephin (cefTRIAXone) IVPB 1 grams IVPB once over 30 mins; (mix in 50 le1 mL NS) Route: IVPB; Infused Over: 30 mins; Site: right forearm; 10:56 Follow up: Response: No adverse reaction; IV Status: Completed infusion le1 Disposition Summary: 12/02/23 11:00 Discharge Ordered Notes: Location: Home rt Problem: new rt Symptoms: have improved rt Condition: Stable rt Diagnosis - UTI/ Urinary tract infection, site not specified rt - Abdominal aortic aneurysm, without rupture rt Followup: rt - With: Private Physician - When: 2 - 3 days - Reason: Discharge Instructions: - Discharge Summary Sheet rt - Urinary Tract Infection, Adult rt - Abdominal Aortic Aneurysm, [id number] rt Forms: - Medication Reconciliation Form rt - Antibiotic Education rt - Prescription Opioid Use rt - Patient Portal Instructions rt - Leadership Thank You Letter rt Prescriptions: - cefpodoxime 200 mg Oral tablet - take 1 tablet ORAL route every 12 hours with food; 14 tablet; Refills: 0, rt Product Selection Permitted Signatures: Dispatcher [employer] Rosamaria Armstrong RN RN Shefali Thompson RN RN jw7 David Foy MD MD rt Facundo Phan MD MD sp4 Elisabet Hardy RN RN kd4 Corin Dash RN RN le1 Corrections: (The following items were deleted from the chart) 04:56 04:56 BASIC METABOLIC PANEL+C.LAB.BRZ ordered. EDMS EDMS 04:56 04:56 CBC+H.LAB.BRZ ordered. EDMS EDMS 04:56 04:56 HEPATIC FUNCTION+C.LAB.BRZ ordered. EDMS EDMS 04:56 04:56 MAGNESIUM+C.LAB.BRZ ordered. EDMS EDMS 04:56 04:56 PROBNP+C.LAB.BRZ ordered. EDMS EDMS 04:56 04:56 PROTIME (+INR)+COAG.LAB.BRZ ordered. EDMS EDMS 04:56 04:56 Troponin High Sensitivity+C.LAB.BRZ ordered. EDMS EDMS 04:56 04:56 Chest Single View+RAD.RAD.BRZ ordered. EDMS EDMS 04:56 04:56 Urinalysis W/Microscopic+U.LAB.BRZ ordered. EDMS EDMS 06:08 05:03 LIPASE+C.LAB.BRZ ordered. EDMS EDMS 08:36 06:16 Chest Abdomen Pelvis W Con+CT.RAD.BRZ ordered. EDMS EDMS
--- NOTE | 2023-12-02 11:01 | ER ---
Nurse's Notes [facility] Name: Ariella Bustillo Age: 78 yrs Sex: Female : 1945 Arrival Date: 12/02/2023 Time: 04:40 Bed 4 Private MD: Diagnosis: UTI/ Urinary tract infection, site not specified;Abdominal aortic aneurysm, without rupture Presentation: 12/01 04:56 Chief complaint: Patient states: Chest pain and pain all over, it hurts when I take a jw7 deep breath. Coronavirus screen: At this time, the client does not indicate any symptoms associated with coronavirus-19. Ebola Screen: No symptoms or risks identified at this time. Initial Sepsis Screen: Does the patient meet any 2 criteria? No. Patient's initial sepsis screen is negative. Does the patient have a suspected source of infection? No. Patient's initial sepsis screen is negative. Risk Assessment: Do you want to hurt yourself or someone else? Patient reports no desire to harm self or others. Onset of symptoms was December 02, 2023. Care prior to arrival: Medication(s) given: Nitroglycerin, 0.4 mg SL x 3, IV initiated. 22 GA, in the left forearm. 04:56 Method Of Arrival: EMS: [facility] jw7 04:56 Acuity: FRANSISCO 3 jw7 Triage Assessment: 05:00 General: Appears in no apparent distress. uncomfortable, Behavior is calm, cooperative, jw7 appropriate for age. Pain: Complains of pain in chest Pain does not radiate. Pain currently is 8 out of 10 on a pain scale. Quality of pain is described as sharp, Pain began suddenly, Is continuous. EENT: No deficits noted. No signs and/or symptoms were reported regarding the EENT system. Neuro: Level of Consciousness is awake, alert, obeys commands, Oriented to person, place, situation. Cardiovascular: Heart tones S1 S2 present Capillary refill < 3 seconds Clubbing of nail beds is absent JVD is absent Patient's skin is warm and dry. Respiratory: Airway is patent Trachea midline Respiratory effort is even, unlabored, Respiratory pattern is regular, symmetrical. GI: Abdomen is flat, non-distended, Bowel sounds present X 4 quads. Abd is soft Abdomen is tender to palpation. : No deficits noted. No signs and/or symptoms were reported regarding the genitourinary system. Derm: Skin is healthy with good turgor, is fragile, Skin is dry, Skin is normal, Skin temperature is warm. Musculoskeletal: Circulation, motion, and sensation intact. Range of motion: intact in all extremities. Historical: - Allergies: 05:00 PENICILLINS; jw7 09:55 Iodine; hb - Home Meds: 05:00 artificial tears(hypromellose) 0.5 % ophthalmic (eye) drops 2 drop 2 times per day jw7 [Active]; Depakote Sprinkles 125 mg Oral Capsule 2 times per day [Active]; glimepiride 1 mg Oral tablet 1 tab 2 times per day [Active]; Imodium Oral 2 mg every 4 hours PRN [Active]; Lipitor 10 mg Oral tablet every day at bedtime [Active]; metformin 500 mg Oral tablet 2 times per day [Active]; Pepcid 20 mg Oral tablet daily [Active]; promethazine 25 mg Oral tablet 1 tab every 6 hours [Active]; Remeron 15 mg Oral tablet every day at bedtime [Active]; sitagliptin phosphate 50 mg Oral tablet daily [Active]; Zyrtec 10 mg Oral tablet daily [Active]; - PMHx: 05:00 Alzheimer's disease; Anterograde Amnesia; Anxiety; Dementia; diabetes mellitus; jw7 DYSPHAGIA; Gastroesophageal reflux disease; insomnia; osteoarthritis; Rheumatoid Arthritis; - PSHx: 05:00 Appendectomy; back surgery; jw7 - Immunization history:: Adult Immunizations up to date, Client reports receiving the 2nd dose of the Covid vaccine, Pneumococcal vaccine is up to date, Flu vaccine is up to date. - Infectious Disease History:: Denies. - Social history:: Smoking status: Patient denies any tobacco usage or history of. Patient/guardian denies using alcohol, street drugs, IV drugs. - Family history:: not pertinent. Screenin:08 [facility] ED Fall Risk Assessment (Adult) History of falling in the last 3 months, jw7 including since admission No falls in past 3 months (0 pts) Confusion or Disorientation No (0 pts) Intoxicated or Sedated No (0 pts) Impaired Gait No (0 pts) Mobility Assist Device Used No (0 pt) Altered Elimination No (0 pt) Score/Fall Risk Level 0 - 2 = Low Risk Oriented to surroundings, Maintained a safe environment, Educated pt \T\ family on fall prevention, incl call for assistance when getting out of bed. Abuse screen: Denies threats or abuse. Denies injuries from another. Nutritional screening: No deficits noted. Tuberculosis screening: No symptoms or risk factors identified. Assessment: 05:09 General: See Triage Assessment. jw7 06:00 Reassessment: Patient appears in no apparent distress at this time. No changes from 7 previously documented assessment. Patient and/or family updated on plan of care and expected duration. Pain level reassessed. 08:05 General: Appears in no apparent distress. comfortable, Behavior is cooperative. Pain: ld1 Denies pain. Neuro: Level of Consciousness is awake, confused, Oriented to person. Cardiovascular: Capillary refill < 3 seconds Patient's skin is warm and dry. Rhythm is sinus rhythm. Respiratory: Airway is patent Respiratory effort is even, unlabored. GI: Abdomen is round non-distended. : No signs and/or symptoms were reported regarding the genitourinary system. EENT: No signs and/or symptoms were reported regarding the EENT system. Derm: No signs and/or symptoms reported regarding the dermatologic system. Musculoskeletal: No signs and/or symptoms reported regarding the musculoskeletal system. 11:14 Reassessment: Patient appears in no apparent distress at this time. No changes from ld1 previously documented assessment. Patient and/or family updated on plan of care and expected duration. Pain level reassessed. Vital Signs: 04:56 BP 155 / 69; Pulse 80; Resp 21 S; Temp 97.7(O); Pulse Ox 97% on R/A; Weight 72.57 kg; jw7 Height 5 ft. 1 in. ; Pain 8/10; 06:05 BP 129 / 64; Pulse 91; Resp 18; Pulse Ox 95% on R/A; kd4 08:05 BP 139 / 70; Pulse 90; Resp 18; Pulse Ox 100% on R/A; ld1 09:01 Pulse 76; Resp 15; Pulse Ox 100% on R/A; ld1 11:04 BP 147 / 60 LA Supine (auto/reg); Pulse 66 MON; Resp 23 S; Pulse Ox 98% on R/A; le1 11:14 BP 137 / 72; Pulse 84; Resp 18; Pulse Ox 99% on R/A; ld1 04:56 Body Mass Index 30.23 (72.57 kg, 154.94 cm) jw7 04:56 Pain Scale: Adult jw7 Adrián Coma Score: 06:55 Eye Response: spontaneous(4). Motor Response: obeys commands(6). Verbal Response: sp4 oriented(5). Total: 15. ED Course: 04:47 Patient arrived in ED. vc1 04:55 Facundo Phan MD is Attending Physician. sp4 05:00 Triage completed. jw7 05:00 Arm band placed on. jw7 05:08 Patient has correct armband on for positive identification. Bed in low position. Call jw7 light in reach. Side rails up X2. Provided Education on: Use of Call Light. 05:08 Maintain EMS IV. Dressing intact. Good blood return noted. Site clean \T\ dry. Gauge \T\ jw 7 site: 22G RFA. 05:19 XRAY Chest (1 view) In Process Unspecified. EDMS 05:31 Initial lab(s) drawn, by ok, sent to lab. kmf 07:13 Attending Physician role handed off by Facundo Phan MD rt 07:13 David Foy MD is Attending Physician. rt 08:05 Franchesca Fam, RAVEN is Primary Nurse. ld1 08:05 Urinalysis W/Microscopic Sent. ld1 08:05 No provider procedures requiring assistance completed. ld1 08:24 Inserted saline lock: 22 gauge in right antecubital area, using aseptic technique. ld1 08:42 Chest Abd Pelvis Wo Con In Process Unspecified. EDMS 11:14 IV discontinued, intact, bleeding controlled, No redness/swelling at site. ld1 Administered Medications: 06:59 Drug: NS 0.9% IV 1000 ml IV at 125 ml/hr continuous Route: IV; Rate: 125 ml/hr; Site: kd4 right forearm; 10:14 Drug: Rocephin - Rocephin (cefTRIAXone) IVPB 1 grams IVPB once over 30 mins; (mix in 50 le1 mL NS) Route: IVPB; Infused Over: 30 mins; Site: right forearm; 10:56 Follow up: Response: No adverse reaction; IV Status: Completed infusion le1 Medication: 08:05 VIS not applicable for this client. ld1 Outcome: 11:00 Discharge ordered by . rt 11:14 Discharged to home via wheelchair, with family, ld1 11:14 Condition: stable 11:14 Discharge instructions given to patient, family, Instructed on discharge instructions, follow up and referral plans. medication usage, Demonstrated understanding of instructions, follow-up care, medications, Prescriptions given X 1, 11:14 Patient left the ED. ld1 Signatures: Dispatcher [employer] EDMS Rosamaria Enriquez, RN RN Franchesca Fam RN RN ld1 Kristen Tubbs RN RN 1 Shefali Thompson RN RN jw7 David Foy MD MD rt Facundo Phan MD MD sp4 Jenna Liu Karim RN RN kd4 Corin Dash RN RN le1
[2023-12-02 11:31] VITALS: BP 137/72; TEMP 97.7; O2SAT 99
== END 2023-12-02 11:14 | disposition home or self-care (01) ==
LOC: ER 04:40
DX: I71.40 Abdominal aortic aneurysm, without rupture, unspecified (principal); N39.0 Urinary tract infection, site not specified; E11.9 Type 2 diabetes mellitus without complications; Z79.899 Other long term (current) drug therapy; Z88.0 Allergy status to penicillin
CPT/HCPCS: 87088; 85025; 81001; 87086; 80048; 36415; 83735; 85610; 80076; 84484; 83690; 83880; 71250; 74176; 71045; J7030; J0696 ×2; 96365; 99284

== ENCOUNTER 2024-01-02 10:03 | Emergency (ER) | payer MEDICARE, OTHER ==
--- NOTE | 2024-01-02 10:12 | EDPHYS ---
Physician Documentation [facility] Name: Ariella Bustillo Age: 78 yrs Sex: Female : 1945 Arrival Date: 01/02/2024 Time: 10:03 Bed 15 Private MD: ED Physician Raymond Fam HPI: 01/01 10:18 This 78 yrs old Female presents to ER via EMS with complaints of Finger Injury. ms3 10:19 78-year-old female presents to the emergency department via [facility] for left fourth ms3 finger swelling and erythema. Patient states she is having severe pain in the finger. She denies alleviating factors. Patient states the pain is worse with touching her finger. Historical: - Allergies: 10:12 Iodine; bp 10:12 PENICILLINS; bp - PMHx: 10:12 Alzheimer's disease; Dementia; insomnia; osteoarthritis; Rheumatoid Arthritis; bp Gastroesophageal reflux disease; DYSPHAGIA; diabetes mellitus; Anterograde Amnesia; Anxiety; - PSHx: 10:12 Appendectomy; back surgery; bp - Immunization history:: Adult Immunizations up to date. - Infectious Disease History:: Denies. - Social history:: Smoking status: unknown. ROS: 10:19 Constitutional: Negative for fever, and chills. Neck: Negative for injury, pain, and ms3 swelling, Cardiovascular: Negative for chest pain, and palpitations. Respiratory: Negative for shortness of breath, cough, wheezing, and pleuritic chest pain, Abdomen/GI: Negative for abdominal pain, nausea, vomiting, diarrhea, and constipation, 10:19 MS/extremity: Positive for erythema, pain, swelling, tenderness, of the Left ring finger, Exam: 10:19 Constitutional: This is a well developed, well nourished patient who is awake, alert, ms3 and in no acute distress. Cardiovascular: Regular rate and rhythm with a normal S1 and S2. No gallops, murmurs, or rubs. Normal PMI, no JVD. No pulse deficits. Respiratory: Lungs have equal breath sounds bilaterally, clear to auscultation and percussion. No rales, rhonchi or wheezes noted. No increased work of breathing, no retractions or nasal flaring. Abdomen/GI: Soft, non-tender, with normal bowel sounds. No distension or tympany. No guarding or rebound. No evidence of tenderness throughout. 10:19 Skin: cellulitis, that is moderate, confluent, on the Left ring finger and dorsum of hand, Vital Signs: 10:10 BP 155 / 66; Pulse 66; Resp 16; Temp 98; Pulse Ox 96% ; bp 11:12 BP 145 / 79; Pulse 71; Resp 16; Pulse Ox 96% ; bp MDM: 10:11 Patient medically screened. ms3 10:16 External Records Reviewed: Outpatient radiology: Left hand x-ray performed on December 21 ms3 2023 shows no acute fracture or dislocation. Soft tissue swelling. Consider follow-up and repeat examination in a week if pain persist. 10:19 Differential diagnosis: tendonitis, Cellulitis. Data reviewed: vital signs, nurses ms3 notes, and as a result, I will discharge patient. I considered the following discharge prescriptions or medication management in the emergency department Medications were administered in the Emergency Department. See MAR. Historians other than the Patient: EMS: [facility]. Care significantly affected by the following chronic conditions: Alzheimer's. Counseling: I had a detailed discussion with the patient and/or guardian regarding the historical points, exam findings, and any diagnostic results supporting the discharge/admit diagnosis, the need for outpatient follow up, to return to the emergency department if symptoms worsen or persist or if there are any questions or concerns that arise at home. Special discussion: I discussed with the patient/guardian in detail that at this point there is no indication for admission to the hospital. It is understood, however, that if the symptoms persist or worsen the patient needs to return immediately for re-evaluation. ED course: Discussed physical exam findings with patient. Patient given doxycycline 100 mg in the emergency department and prescription for doxycycline 100 mg twice daily. All questions were answered. Return precautions discussed include worsening symptoms, or any other concerns.. Administered Medications: 10:24 Drug: Doxycycline PO 100 mg PO once Route: PO; bp 10:52 Follow up: Response: No adverse reaction bp Disposition Summary: 01/02/24 10:12 Discharge Ordered Notes: Location: Home ms3 Condition: Stable ms3 Diagnosis - Cellulitis of left finger ms3 Followup: ms3 - With: Private Physician - When: 2 - 3 days - Reason: Recheck today's complaints Discharge Instructions: - Discharge Summary Sheet ms3 - Cellulitis, Adult ms3 Forms: - Medication Reconciliation Form ms3 - Antibiotic Education ms3 - Prescription Opioid Use ms3 - Patient Portal Instructions ms3 - Leadership Thank You Letter ms3 Prescriptions: - Doxycycline Hyclate 100 mg Oral Tablet - take 1 tablet ORAL route every 12 hours; 20 tablet; Refills: 0, Product ms3 Selection Permitted Signatures: Jose Yun, RN RN Raymond Carrasco DO DO ms3
--- NOTE | 2024-01-02 10:12 | ER ---
Nurse's Notes [facility] Name: Ariella Bustillo Age: 78 yrs Sex: Female : 1945 Arrival Date: 01/02/2024 Time: 10:03 Bed 15 Private MD: Diagnosis: Cellulitis of left finger Presentation: 01/01 10:10 Chief complaint: EMS states: LEFT 4TH FINGER PAIN/REDNESS. Coronavirus screen: At this bp time, the client does not indicate any symptoms associated with coronavirus-19. Ebola Screen: No symptoms or risks identified at this time. Initial Sepsis Screen: Does the patient meet any 2 criteria? No. Patient's initial sepsis screen is negative. Does the patient have a suspected source of infection? No. Patient's initial sepsis screen is negative. Risk Assessment: Do you want to hurt yourself or someone else? Patient reports no desire to harm self or others. Onset of symptoms is unknown. 10:10 Method Of Arrival: EMS: [facility] bp 10:10 Acuity: FRANSISCO 5 bp Triage Assessment: 10:10 General: Appears in no apparent distress. Behavior is AT BASELINE. Pain: Unable to use bp pain scale. Does not appear to understand pain scale. Musculoskeletal: Swelling present in right ring finger. Injury Description: NONE. Historical: - Allergies: 10:12 Iodine; bp 10:12 PENICILLINS; bp - PMHx: 10:12 Alzheimer's disease; Dementia; insomnia; osteoarthritis; Rheumatoid Arthritis; bp Gastroesophageal reflux disease; DYSPHAGIA; diabetes mellitus; Anterograde Amnesia; Anxiety; - PSHx: 10:12 Appendectomy; back surgery; bp - Immunization history:: Adult Immunizations up to date. - Infectious Disease History:: Denies. - Social history:: Smoking status: unknown. Screenin:51 [facility] ED Fall Risk Assessment (Adult) History of falling in the last 3 months, bp including since admission No falls in past 3 months (0 pts) Confusion or Disorientation Yes (5 pts) Intoxicated or Sedated No (0 pts) Impaired Gait No (0 pts) Mobility Assist Device Used No (0 pt) Altered Elimination No (0 pt) Score/Fall Risk Level 3 or more points = High Risk Oriented to surroundings. Abuse screen: Denies threats or abuse. Denies injuries from another. Nutritional screening: No deficits noted. Tuberculosis screening: No symptoms or risk factors identified. Assessment: 10:10 General: Appears in no apparent distress. Behavior is AT BASELINE. bp 10:30 Reassessment: [facility]. bp 11:12 Reassessment: PT KATELYNN WITH [facility]. bp Vital Signs: 10:10 BP 155 / 66; Pulse 66; Resp 16; Temp 98; Pulse Ox 96% ; bp 11:12 BP 145 / 79; Pulse 71; Resp 16; Pulse Ox 96% ; bp ED Course: 10:10 Patient arrived in ED. bp 10:11 Raymond Fam DO is Attending Physician. ms3 10:12 Triage completed. bp 10:16 Jose Yun, RN is Primary Nurse. bp 10:17 Arm band placed on. bp 10:28 long term of patients discharge to arrange transportation. nursing staff informed ap3 this nurse that transportation staff would be in route soon. 10:51 Patient has correct armband on for positive identification. bp 10:52 No provider procedures requiring assistance completed. Patient did not have IV access bp during this emergency room visit. Administered Medications: 10:24 Drug: Doxycycline PO 100 mg PO once Route: PO; bp 10:52 Follow up: Response: No adverse reaction bp Medication: 11:12 VIS not applicable for this client. bp Outcome: 10:12 Discharge ordered by . ms3 11:12 Discharged to long term. Report called to [facility] bp 11:12 Condition: stable 11:12 Discharge instructions given to long term, Instructed on discharge instructions, follow up and referral plans. medication usage, Demonstrated understanding of instructions, follow-up care, medications, Prescriptions given X 1, 11:14 Patient left the ED. bp Signatures: Jose Yun, RN RN bp Shireen Deras RN RN ap3 Raymond Fam DO DO ms3
--- OUTSIDE RECORDS SUMMARY | 2024-01-02 10:13 | XMS REPORT | Continuity of Care Document ---
Author Name Unknown Address [address] [place] [address] [address] [place] [address] [facility] thconnect Address [address] [facility] 1 [address] [place] [address] Care Team Providers Care Sex Offender Treatment Professional Name Role Phone VANESSA MC M.D. Attending [...] amine DA Active U 16 00:00: 00 [facility] penicill amine DA Active U UNKNOWN 16 00:00: 00 [facility] Penicill ins drug allergy Active [facility] [...] 00 Yes VANESSA MC M.D. USE DIRECTED. [facility] Omeprazole 20 MG Oral Tablet Delayed Release Omeprazole 20 MG Oral Tablet Delayed Release 2-04 00:00: 00 Yes VANESSA MC M.D. 2 TAKE 2 TABLET Before meals [facility] metFORMIN HCl ER 500 MG Oral Tablet Extended Release 24 Hour metFORMIN HCl ER 500 MG Oral Tablet Extended Release 24 Hour 1-31 00:00: 00 Yes VANESSA MC M.D. QD TAKE 2 TABLETS ONCE DAILY [...] r 07-09 00:00: 00 Yes VANESSA JESUSITA M.D. 30 units in AM and 20 units in PM [facility] Microlet Lancets Microlet Lancets 07-09 00:00: 00 Yes VANESSA JESUSITA M.D. USE DIRECTED. 3 TIMES DAILY [facility] Contour Next Test In Vitro Strip Contour Next Test In Vitro Strip 07-09 00:00: 00 Yes VANESSA JESUSITA M.D. Q0.3333D TEST 3 TIMES DAILY. [facility] Pen [place] 31G X 6 MM Pen [place] 31G X 6 MM 07-09 00:00: 00 [...] Date / Time Performed Performing Clinician Source [id number] 2019-09-27 00:00:00 ACHLISA [facility] [id number] 2019-09-26 00:00:00 RESAL.01 [facility] [id number] 2019-09-26 00:00:00 RESAL.01 [facility] [id number] 2019-09-26 00:00:00 TIMOTHY [facility] [id number] 2019-09-26 00:00:00 RESAL.01 [facility] [id number] 2019-09-26 00:00:00 ACHKA [facility] [B] KNEE 3 VIEWS 2018-09-10 00:00:[address] Brain [place] contrast [id number] 2018-08-09 00:00:00 [facility] [Q] URINALYSIS, COMPLETE W/RFL CULTURE (REFL) 2018-08-02 00:00:00 [facility] [QLH] CBC (INCLUDES DIFF/PLT) 2018-07-09 00:00:00 [facility] [QLH] LIPID PANEL 2018-07-09 00:00:00 [facility] [QLH] CMP W/EGFR 2018-07-09 00:00:00 [facility] [QLH] TSH, 3RD GENERATION 2018-07-09 00:00:00 [facility] [...] ID Source 2019-09-26 03:37:00 Inpatient HCACL LISANDRO [id number] 51 [facility] 2018-10-09 15:30:00 2018-10-09 15:30:00 AppointVANESSA Bishop M.D. ABRAHAM, ALEYAMMA, M.D. [facility]TP [id number] [facility] 2018-09-10 13:00:00 2018-09-10 13:00:00 Appointmen t; DAVID VALDERRAMA, DAVID RICHTER, HAM PASSER [facility] [id number] [facility] 2018-08-09 15:30:00 2018-08-09 15:30:00 Appointmen t; VANESSA MC M.D. ABRAHAM, ALEYAMMA, M.D. [facility] [id number] [facility] 2018-08-07 10:30:00 2018-08-07 10:30:00 Appointmen t; VANESSA MC M.D. ABRAHAM, ALEYAMMA, M.D. [facility] [id number] [facility] 2018-07-16 16:00:00 2018-07-16 16:00:00 Appointmen t; VANESSA MC M.D. ABRAHAM, ALEYAMMA, M.D. [facility] [id number] [facility] 2018-07-16 15:00:00 2018-07-16 15:00:00 Appointmen t; VANESSA MC M.D. ABRAHAM, ALEYAMMA, M.D. [facility] [id number] [facility] 2018-07-09 13:15:00 2018-07-09 13:15:00 Appointmen t; VANESSA MC M.D. ABRAHAM, ALEYAMMA, M.D. [facility] [id number] [facility] Results Test Description Test Time Test Comments Results Result Co mments Source BASIC METABOLIC [id number] 07:36:00* Test Item Value Reference Range Interpretation [...] code = CA) 8.0 mg/dL 8.0-10.5 N [id number] 07:36:00* Test Item Value Reference Range Interpretation Comme nts PHOSPHOROUS (test code = PHOS) 3.1 MG/DL 2.5-4.9 N [id number] 07:36:00* Test Item Value Reference Range Interpretation Comme nts MAGNESIUM (test code = MAG) 1.60 mg/dL 1.8-2.4 L [id number] 07:32:00* Test Item Value Reference Range Interpretation Comme nts GLUBED (test code = GLUBED) 224 MG/DL 70-110 H Performed by cer tified portable grinding machine operator at [facility] CBC W/AUTO [id number] 07:06:00* Test Item Value Reference Range Interpretation [...] REQUIRED (test c ode = MDIFF) NO [id number] 19:44:00* Test Item Value Reference Range Interpretation Comme nts GLUBED (test code = GLUBED) 116 MG/DL 70-110 H Performed by cer tified portable grinding machine operator at [facility] [id number] 16:20:00* Test Item Value Reference Range Interpretation Comme nts GLUBED (test code = GLUBED) 132 MG/DL 70-110 H Performed by cer tified portable grinding machine operator at [facility] BASIC METABOLIC [id number] 12:23:00* Test Item Value Reference Range Interpretation [...] code = CA) 7.9 mg/dL 8.0-10.5 L [id number] 12:23:00* Test Item Value Reference Range Interpretation Comme nts MAGNESIUM (test code = MAG) 1.40 mg/dL 1.8-2.4 L CBC W/AUTO [id number] 11:44:00* Test Item Value Reference Range Interpretation [...] REQUIRED (test c ode = MDIFF) NO [id number] 10:37:00* Test Item Value Reference Range Interpretation Comme nts GLUBED (test code = GLUBED) 233 MG/DL 70-110 H Performed by cer tified portable grinding machine operator at [facility] [id number] 07:27:00* Test Item Value Reference Range Interpretation Comme nts GLUBED (test code = GLUBED) 130 MG/DL 70-110 H Performed by cer tified portable grinding machine operator at [facility] [id number] 20:11:00* Test Item Value Reference Range Interpretation Comme nts GLUBED (test code = GLUBED) 177 MG/DL 70-110 H Performed by cer tified portable grinding machine operator at [facility] [id number] 17:39:00* Test Item Value Reference Range Interpretation Comme nts GLUBED (test code = GLUBED) 175 MG/DL 70-110 H Performed by cer tified portable grinding machine operator at [facility] [id number] 11:52:00* Test Item Value Reference Range Interpretation Comme nts GLUBED (test code = GLUBED) 136 MG/DL 70-110 H Performed by cer tified portable grinding machine operator at [facility] CBC W/AUTO [id number] 08:16:00* Test Item Value Reference Range Interpretation [...] DIFF REQUIRED (test code = MDIFF) NO [id number] 08:11:00* Test Item Value Reference Range Interpretation Comme nts GLUBED (test code = GLUBED) 119 MG/DL 70-110 H Performed by cer tified portable grinding machine operator at [facility] BASIC METABOLIC [id number] 07:49:00* Test Item Value Reference Range Interpretation [...] code = CA) 8.0 mg/dL 8.0-10.5 N [id number] 07:49:00* Test Item Value Reference Range Interpretation Comme nts PHOSPHOROUS (test code = PHOS) 3.5 MG/DL 2.5-4.9 N [id number] 07:49:00* Test Item Value Reference Range Interpretation Comme nts MAGNESIUM (test code = MAG) 1.30 mg/dL 1.8-2.4 L [id number] 21:10:00* Test Item Value Reference Range Interpretation Comme nts GLUBED (test code = GLUBED) 234 MG/DL 70-110 H Performed by cer tified portable grinding machine operator at [facility] [id number] 17:21:00* Test Item Value Reference Range Interpretation Comme nts GLUBED (test code = GLUBED) 127 MG/DL 70-110 H Performed by cer tified portable grinding machine operator at [facility] [id number] 13:26:00* Test Item Value Reference Range Interpretation Comme nts GLUBED (test code = GLUBED) 144 MG/DL 70-110 H Performed by cer tified portable grinding machine operator at [facility] TOTAL IRON BINDING [id number] 12:02:00* Test Item Value Reference Range Interpretation Comme nts SERUM IRON (test code = IRON) 56 mcg/dL 35-150 N TOTAL IRON BINDING CAPACITY (test code = TIBC) 163 mcg/dL 260-445 L UIBC (test code = UIBC) 107 mcg/dL IRON SATURATION (test code = FESAT) 34.4 % 14-34 H [id number] 12:02:00* Test Item Value Reference Range Interpretation Comme nts FERRITIN (test code = VIKY) 182.0 ng/mL 11.0-306.8 N [id number] 08:40:00* Test Item Value Reference Range Interpretation Comme nts GLUBED (test code = GLUBED) 136 MG/DL 70-110 H Performed by cer tified portable grinding machine operator at [facility] BASIC METABOLIC [id number] 08:20:00* Test Item Value Reference Range Interpretation [...] code = CA) 7.8 mg/dL 8.0-10.5 L [id number] 08:20:00* Test Item Value Reference Range Interpretation Comme nts PHOSPHOROUS (test code = PHOS) 3.1 MG/DL 2.5-4.9 N [id number] 08:20:00* Test Item Value Reference Range Interpretation Comme nts MAGNESIUM (test code = MAG) 1.60 mg/dL 1.8-2.4 L CBC W/AUTO [id number] 07:52:00* Test Item Value Reference Range Interpretation [...] DIFF REQUIRED (test code = MDIFF) NO [id number] 07:16:00* Test Item Value Reference Range Interpretation Comme nts GLUBED (test code = GLUBED) 279 MG/DL 70-110 H Performed by cer tified portable grinding machine operator at [facility] [id number] 21:40:00* Test Item Value Reference Range Interpretation Comme nts GLUBED (test code = GLUBED) 282 MG/DL 70-110 H Performed by cer tified portable grinding machine operator at [facility] [id number] 11:28:00* Test Item Value Reference Range Interpretation Comme nts GLUBED (test code = GLUBED) 115 MG/DL 70-110 H Performed by cer tified portable grinding machine operator at [facility] [id number] 08:26:00* Test Item Value Reference Range Interpretation Comme nts GLUBED (test code = GLUBED) 117 MG/DL 70-110 H Performed by cer tified portable grinding machine operator at [facility] [id number] 20:40:00* Test Item Value Reference Range Interpretation Comme nts GLUBED (test code = GLUBED) 152 MG/DL 70-110 H Performed by cer tified portable grinding machine operator at [facility] [id number] 17:27:00* Test Item Value Reference Range Interpretation Comme nts GLUBED (test code = GLUBED) 155 MG/DL 70-110 H Performed by cer tified portable grinding machine operator at [facility] [id number] 11:29:00* Test Item Value Reference Range Interpretation Comme nts GLUBED (test code = GLUBED) 130 MG/DL 70-110 H Performed by cer tified portable grinding machine operator at [facility] Novel Coronavirus [id number] 08:16:00* Test Item Value Reference Range Interpretation Comme nts Novel Coronavirus 2019 Inhouse (test code = [id number]) Negative Negative Positive resul ts are indicative of the presence saFDVD-VrK-9 RNA, clinical correlation with patient historyand other [...] for the identification of SARS-CoV-2 RNA usingthe Scivantage M2000 System under the FDA Emergency UseAuthorization. The testing is performed by personneltrained in the procedures for the Kenny M2000 moleculardiagnostic SARS-CoV-2 assay in vitro. Testing Criteria: Shortness of [id number] 08:07:00* Test Item Value Reference Range Interpretation Comme nts GLUBED (test code = GLUBED) 112 MG/DL 70-110 H Performed by cer tified portable grinding machine operator at [facility] [id number] 08:07:00* Test Item Value Reference Range Interpretation Comme nts GLUBED (test code = GLUBED) 112 MG/DL 70-110 H Performed by cer tified portable grinding machine operator at [facility] BASIC METABOLIC [id number] 03:35:00* Test Item Value Reference Range Interpretation [...] code = CA) 8.1 mg/dL 8.0-10.5 N [id number] 03:35:00* Test Item Value Reference Range Interpretation Comme nts PHOSPHOROUS (test code = PHOS) 3.4 MG/DL 2.5-4.9 [id number] 03:35:00* Test Item Value Reference Range Interpretation Comme nts MAGNESIUM (test code = MAG) 1.50 mg/dL 1.8-2.4 L CBC W/AUTO [id number] 03:22:00* Test Item Value Reference Range Interpretation [...] REQUIRED (test c ode = MDIFF) NO [id number] 23:52:00* Test Item Value Reference Range Interpretation Comme nts GLUBED (test code = GLUBED) 139 MG/DL 70-110 H Performed by cer tified portable grinding machine operator at [facility] [id number] 18:09:00* Test Item Value Reference Range Interpretation Comme nts GLUBED (test code = GLUBED) 174 MG/DL 70-110 H Performed by cer tified portable grinding machine operator at [facility] Coronavirus 2019 nCoV [id number] 14:38:00* Test Item Value Reference Range Interpretation Comme nts Coronavirus 2019 nCoV Bedsid e (test code = [id number]) Negative Negative Emergent procedure? YESCOMMENTS: R/O PATIENT IN CONTACT WITH POSITIVE COVID 19 THROUGH ALF/Comment: PATIENT WITH COUGH AND [id number] 13:06:00* Test Item Value Reference Range Interpretation Comme nts GLUBED (test code = GLUBED) 204 MG/DL 70-110 H Performed by cer tified portable grinding machine operator at [facility] B-TYPE NATRIURETIC [id number] 11:28:00* Test Item Value Reference Range Interpretation Comme nts B-TYPE NATRIURETIC PEPTIDE ( test code = BNP) 301.5 PG/ML 0-100 H CBC W/AUTO [id number] 11:25:00* Test Item Value Reference Range Interpretation [...] (test c ode = MDIFF) YES WBC [id number] 11:25:00* Test Item Value Reference Range Interpretation [...] = PLTEST) Adequate THOUSAND ADEQUATE CBC W/AUTO [id number] 11:20:00* Test Item Value Reference Range Interpretation [...] (test c ode = MDIFF) YES WBC [id number] 11:20:00* Test Item Value Reference Range Interpretation Comme nts ANISOCYTOSIS (test code = ANISO) PLATELET ESTIMATE (test code = PLTEST) THOUSAND ADEQUATE CBC W/AUTO [id number] 11:20:00* Test Item Value Reference Range Interpretation [...] (test c ode = MDIFF) YES WBC [id number] 11:20:00* Test Item Value Reference Range Interpretation Comme nts ANISOCYTOSIS (test code = ANISO) PLATELET ESTIMATE (test code = PLTEST) THOUSAND ADEQUATE [id number] 11:12:00* Test Item Value Reference Range Interpretation Comme nts GLUBED (test code = GLUBED) 108 MG/DL 70-110 N Performed by cer tified portable grinding machine operator at [facility] - XR CHEST 1 [id number] 09:40:00FAX: Joel Falk [phone] [place]: St: ADM Name: [facility] [place] : 1945 Age/S:74/F [address] [place] [address] Blvd Unit #: [id number] Loc: G.4431 [place] [address] Phys: Joel Myers MD Acct: [id number] Dis Date: Status: ADM IN PHONE #: [phone] Exam Date: 10/06/2019929 FAX #: [phone] Reason: SOB,cough EXAMS: CPT CODE: [id number] XR CHEST 1 V 00778 EXAM: Single view AP chest. EXAM DATE: [...] M.D. CC: Joel Myers MD Technologist: RT Armando(R) Trnscrd Date/Time/By: 10/06/2019 (939) : By: Delvis Orig Print D/T: S: 10/06/2019 (6944) PAGE 1 Signed ReportBASIC METABOLIC [id number] 08:27:00* Test Item Value Reference Range Interpretation [...] code = CA) 8.1 mg/dL 8.0-10.5 N [id number] 08:27:00* Test Item Value Reference Range Interpretation Comme nts PHOSPHOROUS (test code = PHOS) 2.5 MG/DL 2.5-4.9 N [id number] 08:27:00* Test Item Value Reference Range Interpretation Comme nts MAGNESIUM (test code = MAG) 1.80 mg/dL 1.8-2.4 N CBC W/AUTO [id number] 07:44:00* Test Item Value Reference Range Interpretation [...] DIFF REQUIRED (test c ode = MDIFF) [id number] 20:34:00* Test Item Value Reference Range Interpretation Comme nts GLUBED (test code = GLUBED) 143 MG/DL 70-110 H Performed by cer tified portable grinding machine operator at [facility] [id number] 18:17:00* Test Item Value Reference Range Interpretation Comme nts GLUBED (test code = GLUBED) 112 MG/DL 70-110 H Performed by cer tified portable grinding machine operator at [facility] [id number] 12:26:00* Test Item Value Reference Range Interpretation Comme nts GLUBED (test code = GLUBED) 168 MG/DL 70-110 H Performed by cer tified portable grinding machine operator at [facility] [id number] 09:28:00* Test Item Value Reference Range Interpretation Comme nts GLUBED (test code = GLUBED) 118 MG/DL 70-110 H Performed by cer tified portable grinding machine operator at [facility] CBC W/AUTO [id number] 09:00:00* Test Item Value Reference Range Interpretation [...] (test c ode = MDIFF) YES WBC [id number] 09:00:00* Test Item Value Reference Range Interpretation [...] code = PLTMORPH) LARGE PLATELETS CBC W/AUTO [id number] 08:55:00* Test Item Value Reference Range Interpretation [...] (test c ode = MDIFF) YES WBC [id number] 08:55:00* Test Item Value Reference Range Interpretation Comme nts ANISOCYTOSIS (test code = ANISO) PLATELET ESTIMATE (test code = PLTEST) THOUSAND ADEQUATE CBC W/AUTO [id number] 08:55:00* Test Item Value Reference Range Interpretation [...] (test c ode = MDIFF) YES WBC [id number] 08:55:00* Test Item Value Reference Range Interpretation Comme nts ANISOCYTOSIS (test code = ANISO) PLATELET ESTIMATE (test code = PLTEST) THOUSAND ADEQUATE BASIC METABOLIC [id number] 08:41:00* Test Item Value Reference Range Interpretation [...] code = CA) 8.2 mg/dL 8.0-10.5 N [id number] 08:41:00* Test Item Value Reference Range Interpretation Comme nts PHOSPHOROUS (test code = PHOS) 2.8 MG/DL 2.5-4.9 N [id number] 08:41:00* Test Item Value Reference Range Interpretation Comme nts MAGNESIUM (test code = MAG) 1.90 mg/dL 1.8-2.4 N CBC W/AUTO [id number] 07:55:00* Test Item Value Reference Range Interpretation [...] DIFF REQUIRED (test c ode = MDIFF) [id number] 21:52:00* Test Item Value Reference Range Interpretation Comme nts GLUBED (test code = GLUBED) 145 MG/DL 70-110 H Performed by cer tified portable grinding machine operator at [facility] [id number] 17:18:00* Test Item Value Reference Range Interpretation Comme nts GLUBED (test code = GLUBED) 120 MG/DL 70-110 H Performed by cer tified portable grinding machine operator at [facility] CBC W/AUTO [id number] 12:24:00* Test Item Value Reference Range Interpretation [...] (test c ode = MDIFF) NO PLT [id number] 12:24:00* Test Item Value Reference Range Interpretation Comme nts PLATELET ESTIMATE (test code = PLTEST) 112-140 THOUSAND ADEQUATE PLATELET MORPHOLOGY (test code = PLTMORPH) LARGE PLATELETS LARGE PLTS SEEN [id number] 12:20:00* Test Item Value Reference Range Interpretation Comme nts GLUBED (test code = GLUBED) 156 MG/DL 70-110 H Performed by cer tified portable grinding machine operator at [facility] BASIC METABOLIC [id number] 08:58:00* Test Item Value Reference Range Interpretation [...] code = CA) 8.1 mg/dL 8.0-10.5 N [id number] 08:58:00* Test Item Value Reference Range Interpretation Comme nts PHOSPHOROUS (test code = PHOS) 3.3 MG/DL 2.5-4.9 N [id number] 08:58:00* Test Item Value Reference Range Interpretation Comme nts MAGNESIUM (test code = MAG) 1.70 mg/dL 1.8-2.4 L CBC W/AUTO [id number] 08:09:00* Test Item Value Reference Range Interpretation [...] (test c ode = MDIFF) NO PLT [id number] 08:09:00* Test Item Value Reference Range Interpretation Comme nts PLATELET ESTIMATE (test code = PLTEST) THOUSAND ADEQUATE CBC W/AUTO [id number] 08:09:00* Test Item Value Reference Range Interpretation [...] (test c ode = MDIFF) NO PLT [id number] 08:09:00* Test Item Value Reference Range Interpretation Comme nts PLATELET ESTIMATE (test code = PLTEST) THOUSAND ADEQUATE [id number] 08:06:00* Test Item Value Reference Range Interpretation Comme nts GLUBED (test code = GLUBED) 121 MG/DL 70-110 H Performed by cer tified portable grinding machine operator at [facility] [id number] 20:33:00* Test Item Value Reference Range Interpretation Comme nts GLUBED (test code = GLUBED) 123 MG/DL 70-110 H Performed by cer tified portable grinding machine operator at [facility] [id number] 16:49:00* Test Item Value Reference Range Interpretation Comme nts GLUBED (test code = GLUBED) 123 MG/DL 70-110 H Performed by cer tified portable grinding machine operator at [facility] [id number] 11:56:00* Test Item Value Reference Range Interpretation Comme nts GLUBED (test code = GLUBED) 142 MG/DL 70-110 H Performed by cer tified portable grinding machine operator at [facility] [id number] 09:07:00* Test Item Value Reference Range Interpretation Comme nts GLUBED (test code = GLUBED) 105 MG/DL 70-110 N Performed by cer tified portable grinding machine operator at [facility] B-TYPE NATRIURETIC [id number] 08:56:00* Test Item Value Reference Range Interpretation Comme nts B-TYPE NATRIURETIC PEPTIDE ( test code = BNP) 109.1 PG/ML 0-100 H BASIC METABOLIC [id number] 08:11:00* Test Item Value Reference Range Interpretation [...] code = CA) 8.4 mg/dL 8.0-10.5 N [id number] 08:11:00* Test Item Value Reference Range Interpretation Comme nts PHOSPHOROUS (test code = PHOS) 2.8 MG/DL 2.5-4.9 N [id number] 08:11:00* Test Item Value Reference Range Interpretation Comme nts MAGNESIUM (test code = MAG) 1.70 mg/dL 1.8-2.4 L CBC W/AUTO [id number] 08:06:00* Test Item Value Reference Range Interpretation [...] REQUIRED (test c ode = MDIFF) NO [id number] 20:28:00* Test Item Value Reference Range Interpretation Comme nts GLUBED (test code = GLUBED) 99 MG/DL 70-110 N Performed by cer tified portable grinding machine operator at [facility] [id number] 17:23:00* Test Item Value Reference Range Interpretation Comme nts GLUBED (test code = GLUBED) 80 MG/DL 70-110 N Performed by cer tified portable grinding machine operator at [facility] [id number] 13:32:00* Test Item Value Reference Range Interpretation Comme nts GLUBED (test code = GLUBED) 151 MG/DL 70-110 H Performed by cer tified portable grinding machine operator at [facility] [id number] 09:59:00* Test Item Value Reference Range Interpretation Comme nts GLUBED (test code = GLUBED) 111 MG/DL 70-110 H Performed by cer tified portable grinding machine operator at [facility] BASIC METABOLIC [id number] 08:10:00* Test Item Value Reference Range Interpretation [...] code = CA) 7.9 mg/dL 8.0-10.5 L [id number] 08:10:00* Test Item Value Reference Range Interpretation Comme nts PHOSPHOROUS (test code = PHOS) 2.6 MG/DL 2.5-4.9 N [id number] 08:10:00* Test Item Value Reference Range Interpretation Comme nts MAGNESIUM (test code = MAG) 1.70 mg/dL 1.8-2.4 L CBC W/AUTO [id number] 07:41:00* Test Item Value Reference Range Interpretation [...] REQUIRED (test c ode = MDIFF) NO [id number] 07:10:00* Test Item Value Reference Range Interpretation Comme nts HAPTOGLOBIN (test code = HAPT) 173 mg/dL 42-346 Performed At: [facility] [id number] Sanjai MD Ph:[phone] [id number] 22:23:00* Test Item Value Reference Range Interpretation Comme nts GLUBED (test code = GLUBED) 218 MG/DL 70-110 H Performed by cer tified portable grinding machine operator at [facility] [id number] 16:37:00* Test Item Value Reference Range Interpretation Comme nts GLUBED (test code = GLUBED) 260 MG/DL 70-110 H Performed by cer tified portable grinding machine operator at [facility] [id number] 12:17:00* Test Item Value Reference Range Interpretation Comme nts GLUBED (test code = GLUBED) 178 MG/DL 70-110 H Performed by cer tified portable grinding machine operator at [facility] [id number] 08:26:00* Test Item Value Reference Range Interpretation Comme nts GLUBED (test code = GLUBED) 178 MG/DL 70-110 H Performed by cer tified portable grinding machine operator at [facility] CBC W/AUTO [id number] 08:11:00* Test Item Value Reference Range Interpretation [...] c ode = MDIFF) NO BASIC METABOLIC [id number] 07:32:00* Test Item Value Reference Range Interpretation [...] code = CA) 8.1 mg/dL 8.0-10.5 N [id number] 07:32:00* Test Item Value Reference Range Interpretation Comme nts PHOSPHOROUS (test code = PHOS) 3.2 MG/DL 2.5-4.9 N [id number] 07:32:00* Test Item Value Reference Range Interpretation Comme nts MAGNESIUM (test code = MAG) 1.80 mg/dL 1.8-2.4 N [id number] 20:32:00* Test Item Value Reference Range Interpretation Comme nts GLUBED (test code = GLUBED) 136 MG/DL 70-110 H Performed by cer tified portable grinding machine operator at [facility] [id number] 16:35:00* Test Item Value Reference Range Interpretation Comme nts GLUBED (test code = GLUBED) 114 MG/DL 70-110 H Performed by cer tified portable grinding machine operator at [facility] [id number] 16:35:00* Test Item Value Reference Range Interpretation Comme nts GLUBED (test code = GLUBED) 114 MG/DL 70-110 H Performed by cer tified portable grinding machine operator at [facility] [id number] 11:59:00* Test Item Value Reference Range Interpretation Comme nts GLUBED (test code = GLUBED) 162 MG/DL 70-110 H Performed by cer tified portable grinding machine operator at [facility] [id number] 09:04:00* Test Item Value Reference Range Interpretation Comme nts GLUBED (test code = GLUBED) 149 MG/DL 70-110 H Performed by cer tified portable grinding machine operator at [facility] B-TYPE NATRIURETIC [id number] 09:00:00* Test Item Value Reference Range Interpretation Comme nts B-TYPE NATRIURETIC PEPTIDE ( test code = BNP) 492.2 PG/ML 0-100 H BASIC METABOLIC [id number] 09:00:00* Test Item Value Reference Range Interpretation [...] CA) 7.2 mg/dL 8.0-10.5 L HEPATIC FUNCTION [id number] 09:00:00* Test Item Value Reference Range Interpretation [...] code = ALKP) 70 IUnit/L 20-125 N [id number] 09:00:00* Test Item Value Reference Range Interpretation Comme nts PHOSPHOROUS (test code = PHOS) 3.5 MG/DL 2.5-4.9 N LACTIC DEHYDROGENASE(LDH)2019-09-30 09:00:00* Test Item Value Reference Range Interpretation Comme nts LACTIC DEHYDROGENASE(LDH) (t est code = LDH) 270 IUnits/L 84-246 H [id number] 09:00:00* Test Item Value Reference Range Interpretation Comme nts MAGNESIUM (test code = MAG) 1.90 mg/dL 1.8-2.4 N PROTHROMBIN [id number] 08:39:00* Test Item Value Reference Range Interpretation [...] Infarction (to prevent recurrent infarct). THROMBOPLASTIN TIME [id number] 08:39:00* Test Item Value Reference Range Interpretation Comme nts THROMBOPLASTIN TIME PARTIAL (test code = PTT) 28.5 Seconds 25.0-39.5 N Therapeutic Rang e: 50.4 - 88.3 Seconds Effective 09/25/2018 [id number] 08:31:00* Test Item Value Reference Range Interpretation Comme nts GLUBED (test code = GLUBED) 146 MG/DL 70-110 H Performed by cer moe portable grinding machine operator at [facility] - XR CHEST 1 [id number] 07:34:00FAX: Joel Falk [phone] [place]: St: ADM FAX: Helga Escalante NP [phone] ---- Name: MAC AGUSTIN [facility] : 1945 Age/S: 74/F [address] [place] [address] Unit #: [id number] Loc: G.M317 [place] [address] Phys: Helga Escalante NP Acct: [id number] Dis Date: Status: ADM IN PHONE #: Exam Date: 09/30/2019513 FAX #: [phone] Reason: PNEUMONIA EXAMS: CPT CODE: [id number] XRCHEST 1 V 93899 Chest single view 09/30/2019 HISTORY: Pneumonia Comparison is made to 09/29/2019 FINDINGS: Bilateral pleural effusions and bibasilar atelectasis/infiltrates have decreased since prior study. Mild cardiomegaly is unchanged. Aorta contains calcifications. Interstitial edema has decreased. Right jugular line has been removed. IMPRESSION: 1. Decreasing bilateral pleural effusions with decreasing bibasilar atelectasis/infiltrates. 2. Decreasing interstitial edema. 3. Removal of right jugular line. SL: [id number] at 0734 Reported and signed by: Jose Dumont M.D. CC: Joel Myers MD; Helga Escalante NP Technologist: RT Inga(R) Trnscrd Date/Time/By: 09/30/2019 (0734) : By: [email or web address] Orig Print D/T: S: 09/30/2019 (0737) PAGE 1 Signed Report- XR ABDOMEN 1V (KUB)2019-09-30 07:33:00 FAX: Joel Falk [phone] [place]: St: ADM FAX: Helga Escalante NP [phone] ---- Name: MAC AGUSTIN [facility] : 1945 Age/S: 74/F [address] [place] [address] Unit #: [id number] Loc: G.M317 [place] [address] Phys: Helga Escalante NP Acct: [id number] Dis Date: Status: ADM IN PHONE #: Exam Date: 09/30/2019513 FAX #: [phone] Reason: DIARRHEA/ABDOMINAL DISTENTION EXAMS: CPT CODE: [id number] XR ABDOMEN 1V (KUB) 39059 Abdomen single view 09/30/2019 HISTORY: Diarrhea. Abdominal distention Comparison is made to CT 09/26/2019 FINDINGS: There is diffuse demineralization. Vascular calcifications in the pelvis are present. No bowel dilatation is present. Rectal gas is present . Surgical clips in the right upper quadrant likely represent previous cholecystectomy. IMPRESSION:Nonobstructed bowel gas pattern. SL: [id number] at 0733 Reported and signed by: Jose Dumont M.D. CC: Joel Garcia MD; Helga Escalante NP Technologist: RT Inga(Bonifacio) Trnscrd Date/Time/By: 09/30/2019 (732) : By: [email or web address] Orig Print D/T: S: 09/30/2019 (7523) PAGE 1 Signed ReportCOMPREHENSIVE METABOLIC [id number] 06:15:00* Test Item Value Reference Range Interpretation [...] code = ALKP) 69 IUnit/L 20-125 N [id number] 06:15:00* Test Item Value Reference Range Interpretation Comme nts PHOSPHOROUS (test code = PHOS) 3.2 MG/DL 2.5-4.9 N [id number] 06:15:00* Test Item Value Reference Range Interpretation Comme nts MAGNESIUM (test code = MAG) 1.90 mg/dL 1.8-2.4 N CALCIUM [id number] 06:15:00* Test Item Value Reference Range Interpretation Comme nts CALCIUM IONIZED (test code = DMITRY) 1.05 MMOL/L 1.12-1.32 L LACTIC [id number] 06:06:00* Test Item Value Reference Range Interpretation Comme nts LACTIC ACID (test code = LACT) 1.3 mmol/L 0.4-1.9 N COMPREHENSIVE METABOLIC [id number] 05:58:00* Test Item Value Reference Range Interpretation [...] ( test code = ALKP) IUnit/L 20-125 [id number] 05:58:00* Test Item Value Reference Range Interpretation Comme nts PHOSPHOROUS (test code = PHOS) MG/DL 2.5-4.9 [id number] 05:58:00* Test Item Value Reference Range Interpretation Comme nts MAGNESIUM (test code = MAG) mg/dL 1.8-2.4 CALCIUM [id number] 05:58:00* Test Item Value Reference Range Interpretation Comme nts CALCIUM IONIZED (test code = DMITRY) 1.05 MMOL/L 1.12-1.32 L CBC W/AUTO [id number] 05:48:00* Test Item Value Reference Range Interpretation [...] (test code = MDIFF) NO BASIC METABOLIC [id number] 00:27:00* Test Item Value Reference Range Interpretation [...] code = CA) 7.6 mg/dL 8.0-10.5 L [id number] 00:27:00* Test Item Value Reference Range Interpretation Comme nts PHOSPHOROUS (test code = PHOS) 3.2 MG/DL 2.5-4.9 N [id number] 00:27:00* Test Item Value Reference Range Interpretation Comme nts MAGNESIUM (test code = MAG) 1.80 mg/dL 1.8-2.4 N LACTIC [id number] 17:55:00* Test Item Value Reference Range Interpretation Comme nts LACTIC ACID (test code = LACT) 1.2 mmol/L 0.4-1.9 N BASIC METABOLIC [id number] 17:54:00* Test Item Value Reference Range Interpretation [...] code = CA) 7.0 mg/dL 8.0-10.5 L [id number] 17:54:00* Test Item Value Reference Range Interpretation Comme nts PHOSPHOROUS (test code = PHOS) 2.8 MG/DL 2.5-4.9 N [id number] 17:54:00* Test Item Value Reference Range Interpretation Comme nts MAGNESIUM (test code = MAG) 2.00 mg/dL 1.8-2.4 N BASIC METABOLIC [id number] 17:48:00* Test Item Value Reference Range Interpretation [...] code = CA) 7.0 mg/dL 8.0-10.5 L [id number] 17:48:00* Test Item Value Reference Range Interpretation Comme nts PHOSPHOROUS (test code = PHOS) MG/DL 2.5-4.9 [id number] 17:48:00* Test Item Value Reference Range Interpretation Comme nts MAGNESIUM (test code = MAG) 2.00 mg/dL 1.8-2.4 N [id number] 17:15:00* Test Item Value Reference Range Interpretation Comme nts GLUBED (test code = GLUBED) 154 MG/DL 70-110 H Performed by cer tified portable grinding machine operator at [facility] [id number] 17:14:00* Test Item Value Reference Range Interpretation Comme nts GLUBED (test code = GLUBED) 143 MG/DL 70-110 H Performed by cer tified portable grinding machine operator at [facility] [id number] 17:14:00* Test Item Value Reference Range Interpretation Comme nts GLUBED (test code = GLUBED) 112 MG/DL 70-110 H Performed by cer tified portable grinding machine operator at [facility] [id number] 17:14:00* Test Item Value Reference Range Interpretation Comme nts GLUBED (test code = GLUBED) 79 MG/DL 70-110 N Performed by cer tified portable grinding machine operator at [facility] BASIC METABOLIC [id number] 12:59:00* Test Item Value Reference Range Interpretation [...] code = CA) 7.3 mg/dL 8.0-10.5 L [id number] 12:59:00* Test Item Value Reference Range Interpretation Comme nts PHOSPHOROUS (test code = PHOS) 3.1 MG/DL 2.5-4.9 [id number] 12:59:00* Test Item Value Reference Range Interpretation Comme nts MAGNESIUM (test code = MAG) 1.90 mg/dL 1.8-2.4 N LACTIC ACID [id number] 10:16:00* Test Item Value Reference Range Interpretation Comme nts LACTIC ACID REPEAT (test cod e = LACTR) 2.1 mmol/l 0.4-1.9 H - XR CHEST 1 [id number] 07:08:00FAX: Joel Falk [phone] [place]: St: ADM FAX: Marisabel Berkowitz DO [phone] ------- Name: MAC AGUSTIN [facility] : 1945 Age/S: 74/F [address] [place] [address] Unit #: [id number] Loc: G.M317 [place] [address] Phys: Marisabel Chu DO Acct: [id number] Dis Date: Status: ADM IN PHONE #: [phone] Exam Date: 09/29/2019540 FAX #: [phone] Reason: SOB EXAMS: CPT CODE: [id number] XR CHEST 1 [id number] CHEST RADIOGRAPH ONE VIEW 09/29/2019 AT 0507 HOURS. CLINICAL HISTORY: Shortness of breath. COMPARISON STUDIES: Chest one view 09/27/[address] 09/26/2019. FINDINGS: One view of the chest was obtained. Developing moderate bilateral pleural effusions layering posteriorly with compressive ate lectasis and with increasing dense left retrocardiac opacity. [...] early consolidation. 3. Enlarged cardiac silhouette. SL: [id number] at 0708 Reported and signed by: Scott Duran M.D. CC: Joel Myers MD; Marisabel Chu DO Technologist: RT Inga(Bonifacio) Trnscrd Date/Time/By: 09/29/2019 (707) : By: [email or web address] Orig Print D/T: S: 09/29/2019 (07) PAGE 1 Signed ReportB-TYPE NATRIURETIC [id number] 05:54:00* Test Item Value Reference Range Interpretation Comme nts B-TYPE NATRIURETIC PEPTIDE ( test code = BNP) 546.7 PG/ML 0-100 H HGBA1C%2019-09-29 05:31:00* Test Item Value Reference Range Interpretation Comme nts HGBA1C% (test code = HGBA1C%) 6.0 %A1C 4.8-6.0 N BASIC METABOLIC [id number] 05:30:00* Test Item Value Reference Range Interpretation [...] code = CA) 7.2 mg/dL 8.0-10.5 L [id number] 05:30:00* Test Item Value Reference Range Interpretation Comme nts PHOSPHOROUS (test code = PHOS) 1.4 MG/DL 2.5-4.9 L [id number] 05:30:00* Test Item Value Reference Range Interpretation Comme nts MAGNESIUM (test code = MAG) 2.00 mg/dL 1.8-2.4 N ACETONE [id number] 05:30:00* Test Item Value Reference Range Interpretation Comme nts ACETONE QUANT (test code = ACETN) NEGATIVE - <20mg/dL mg/dL NEG - <20 BASIC METABOLIC [id number] 05:29:00* Test Item Value Reference Range Interpretation [...] CALCIUM (test code = CA) mg/dL 8.0-10.5 [id number] 05:29:00* Test Item Value Reference Range Interpretation Comme nts PHOSPHOROUS (test code = PHOS) MG/DL 2.5-4.9 [id number] 05:29:00* Test Item Value Reference Range Interpretation Comme nts MAGNESIUM (test code = MAG) mg/dL 1.8-2.4 ACETONE [id number] 05:29:00* Test Item Value Reference Range Interpretation Comme nts ACETONE QUANT (test code = ACETN) NEGATIVE - <20mg/dL mg/dL NEG - <20 LACTIC [id number] 05:26:00* Test Item Value Reference Range Interpretation Comme nts LACTIC ACID (test code = LACT) 4.0 mmol/L 0.4-1.9 H CBC W/AUTO [id number] 05:08:00* Test Item Value Reference Range Interpretation [...] DIFF REQUIRED (test code = MDIFF) NO [id number] 01:50:00* Test Item Value Reference Range Interpretation Comme nts GLUBED (test code = GLUBED) 134 MG/DL 70-110 H Performed by cer tified portable grinding machine operator at [facility] BASIC METABOLIC [id number] 00:45:00* Test Item Value Reference Range Interpretation [...] code = CA) 7.6 mg/dL 8.0-10.5 L [id number] 00:45:00* Test Item Value Reference Range Interpretation Comme nts PHOSPHOROUS (test code = PHOS) 1.9 MG/DL 2.5-4.9 L [id number] 00:04:00* Test Item Value Reference Range Interpretation Comme nts MAGNESIUM (test code = MAG) 2.00 mg/dL 1.8-2.4 N COMMENTS: Every 6 hours until anion gap </= 12 mEq/L, then every morningGLUBED 2019-09-28 23:39:00* Test Item Value Reference Range Interpretation Comme nts GLUBED (test code = GLUBED) 138 MG/DL 70-110 H Performed by cer tified portable grinding machine operator at [facility] [id number] 21:56:00* Test Item Value Reference Range Interpretation Comme nts GLUBED (test code = GLUBED) 130 MG/DL 70-110 H Performed by cer tified portable grinding machine operator at [facility] [id number] 18:56:00* Test Item Value Reference Range Interpretation Comme nts GLUBED (test code = GLUBED) 151 MG/DL 70-110 H Performed by cer tified portable grinding machine operator at [facility] BASIC METABOLIC [id number] 18:54:00* Test Item Value Reference Range Interpretation [...] code = CA) 7.1 mg/dL 8.0-10.5 L [id number] 18:54:00* Test Item Value Reference Range Interpretation Comme nts PHOSPHOROUS (test code = PHOS) 2.2 MG/DL 2.5-4.9 L [id number] 18:54:00* Test Item Value Reference Range Interpretation Comme nts MAGNESIUM (test code = MAG) 2.10 mg/dL 1.8-2.4 N [id number] 18:39:00* Test Item Value Reference Range Interpretation Comme nts GLUBED (test code = GLUBED) 152 MG/DL 70-110 H Performed by cer tified portable grinding machine operator at [facility] [id number] 18:39:00* Test Item Value Reference Range Interpretation Comme nts GLUBED (test code = GLUBED) 123 MG/DL 70-110 H Performed by cer tified portable grinding machine operator at [facility] [id number] 18:39:00* Test Item Value Reference Range Interpretation Comme nts GLUBED (test code = GLUBED) 138 MG/DL 70-110 H Performed by cer tified portable grinding machine operator at [facility] [id number] 13:20:00* Test Item Value Reference Range Interpretation Comme nts MAGNESIUM (test code = MAG) 2.30 mg/dL 1.8-2.4 N COMMENTS: Every 6 hours until anion gap </= 12 mEq/L, then every morningARTERIAL BLOOD [id number] 11:48:00* Test Item Value Reference Range Interpretation [...] ARTERIAL (test code = TCO2A) 15 URINALYSIS [id number] 11:44:00* Test Item Value Reference Range Interpretation [...] AMORU) 1+ /HPF NONE A BASIC METABOLIC [id number] 11:32:00* Test Item Value Reference Range Interpretation [...] = CA) 7.4 mg/dL 8.0-10.5 L ACETONE [id number] 11:32:00* Test Item Value Reference Range Interpretation Comme nts ACETONE QUANT (test code = ACETN) Large - 80-100 mg/dL mg/dL NEG - <20 LACTIC [id number] 11:31:00* Test Item Value Reference Range Interpretation Comme nts LACTIC ACID (test code = LACT) 1.3 mmol/L 0.4-1.9 N BASIC METABOLIC [id number] 11:29:00* Test Item Value Reference Range Interpretation [...] = CA) 7.4 mg/dL 8.0-10.5 L ACETONE [id number] 11:29:00* Test Item Value Reference Range Interpretation Comme nts ACETONE QUANT (test code = ACETN) Large - 80-100 mg/dL mg/dL NEG - <20 BASIC METABOLIC [id number] 11:21:00* Test Item Value Reference Range Interpretation [...] (test code = CA) mg/dL 8.0-10.5 ACETONE [id number] 11:21:00* Test Item Value Reference Range Interpretation Comme nts ACETONE QUANT (test code = ACETN) Large - 80-100 mg/dL mg/dL NEG - <20 [id number] 07:57:00* Test Item Value Reference Range Interpretation Comme nts GLUBED (test code = GLUBED) 169 MG/DL 70-110 H Performed by cer moe portable grinding machine operator at [facility] CBC W/AUTO [id number] 05:24:00* Test Item Value Reference Range Interpretation [...] REQUIRED (test code = MDIFF) NO PLT [id number] 05:24:00* Test Item Value Reference Range Interpretation Comme nts PLATELET ESTIMATE (test code = PLTEST) 80-100 THOUSAND ADEQUATE PLATELET MORPHOLOGY (test code = PLTMORPH) LARGE PLATELETS LACTIC [id number] 05:20:00* Test Item Value Reference Range Interpretation Comme nts LACTIC ACID (test code = LACT) 1.2 mmol/L 0.4-1.9 N BASIC METABOLIC [id number] 05:20:00* Test Item Value Reference Range Interpretation [...] code = CA) 7.4 mg/dL 8.0-10.5 L [id number] 05:20:00* Test Item Value Reference Range Interpretation Comme nts PHOSPHOROUS (test code = PHOS) 2.9 MG/DL 2.5-4.9 N [id number] 05:20:00* Test Item Value Reference Range Interpretation Comme nts MAGNESIUM (test code = MAG) 2.30 mg/dL 1.8-2.4 [id number] 05:20:00* Test Item Value Reference Range Interpretation Comme nts VANCOMYCIN (test code = VANCO) 12.8 mcg/mL CBC W/AUTO [id number] 05:01:00* Test Item Value Reference Range Interpretation [...] REQUIRED (test code = MDIFF) NO PLT [id number] 05:01:00* Test Item Value Reference Range Interpretation Comme nts PLATELET ESTIMATE (test code = PLTEST) THOUSAND ADEQUATE CBC W/AUTO [id number] 05:01:00* Test Item Value Reference Range Interpretation [...] REQUIRED (test code = MDIFF) NO PLT [id number] 05:01:00* Test Item Value Reference Range Interpretation Comme nts PLATELET ESTIMATE (test code = PLTEST) THOUSAND ADEQUATE LACTIC ACID [id number] 18:47:00* Test Item Value Reference Range Interpretation Comme nts LACTIC ACID REPEAT (test cod e = LACTR) 1.6 mmol/l 0.4-1.9 N [id number] 18:16:00* Test Item Value Reference Range Interpretation Comme nts GLUBED (test code = GLUBED) 129 MG/DL 70-110 H Performed by cer tified portable grinding machine operator at [facility] B-TYPE NATRIURETIC [id number] 16:58:00* Test Item Value Reference Range Interpretation Comme nts B-TYPE NATRIURETIC PEPTIDE ( test code = BNP) 1269.2 PG/ML 0-100 H LACTIC [id number] 15:47:00* Test Item Value Reference Range Interpretation Comme nts LACTIC ACID (test code = LACT) 2.4 mmol/L 0.4-1.9 H BASIC METABOLIC [id number] 15:44:00* Test Item Value Reference Range Interpretation [...] code = CA) 7.1 mg/dL 8.0-10.5 L [id number] 15:44:00* Test Item Value Reference Range Interpretation Comme nts PHOSPHOROUS (test code = PHOS) 2.6 MG/DL 2.5-4.9 [id number] 15:44:00* Test Item Value Reference Range Interpretation Comme nts MAGNESIUM (test code = MAG) 1.60 mg/dL 1.8-2.4 L CBC W/AUTO [id number] 15:26:00* Test Item Value Reference Range Interpretation [...] DIFF REQUIRED (test code = MDIFF) NO [id number] 12:23:00* Test Item Value Reference Range Interpretation Comme nts GLUBED (test code = GLUBED) 158 MG/DL 70-110 H Performed by cer tified portable grinding machine operator at [facility] CBC W/AUTO [id number] 10:37:00* Test Item Value Reference Range Interpretation [...] REQUIRED (test code = MDIFF) YES WBC [id number] 10:37:00* Test Item Value Reference Range Interpretation [...] LARGE PLATELETS LARGE PLTS SEEN CBC W/AUTO [id number] 10:26:00* Test Item Value Reference Range Interpretation [...] REQUIRED (test code = MDIFF) YES WBC [id number] 10:26:00* Test Item Value Reference Range Interpretation Comme nts ANISOCYTOSIS (test code = ANISO) PLATELET ESTIMATE (test code = PLTEST) THOUSAND ADEQUATE CBC W/AUTO [id number] 10:26:00* Test Item Value Reference Range Interpretation [...] REQUIRED (test code = MDIFF) YES WBC [id number] 10:26:00* Test Item Value Reference Range Interpretation Comme nts ANISOCYTOSIS (test code = ANISO) PLATELET ESTIMATE (test code = PLTEST) THOUSAND ADEQUATE ARTERIAL BLOOD [id number] 09:58:00* Test Item Value Reference Range Interpretation [...] (test code = TCO2A) 20 LACTIC ACID [id number] 09:46:00* Test Item Value Reference Range Interpretation Comme nts LACTIC ACID REPEAT (test cod e = LACTR) 2.0 mmol/l 0.4-1.9 H ACUTE HEPATITIS [id number] 08:08:00* Test Item Value Reference Range Interpretation [...] COMMENTS: At start of hemodialysisAB HEPATITIS B [id number] 08:08:00* Test Item Value Reference Range Interpretation Comme nts AB HEPATITIS B SURFACE (test code = HBSAB) 688.1 mIU/mL Immunity>9.9 Status of Immuni ty Anti-HBs Level Incons istent with Immunity 0.0 - 9.9Consistent with Immunity >9.9Performed At: [facility] [address] [id number] Matty Dye MD Ph:[phone] COMMENTS: At start of [id number] 08:07:00* Test Item Value Reference Range Interpretation Comme nts GLUBED (test code = GLUBED) 191 MG/DL 70-110 H Performed by cer tified portable grinding machine operator at [facility] [id number] 08:07:00* Test Item Value Reference Range Interpretation Comme nts GLUBED (test code = GLUBED) > 600 MG/DL 70-110 H Performed by cer tified portable grinding machine operator at [facility] - XR CHEST 1 [id number] 07:52:00FAX: Rabia Castro MD [phone] [place]: St: ADM FAX: Joel Falk [phone] Name: SHERYL AGUSTIN [facility] : 1945 Age/S: 74/F [address] [place], [place] [address]vd Unit #: [id number] Loc: G.M317 [place] [address] Phys: Rabia Aguilar MD Acct: [id number] Dis Date: Status: ADM IN PHONE #: [phone] Exam Date: 09/27/2019 0770 FAX #: [phone] Reason: Hypoxemia EXAMS: CPT CODE: [id number] XR CHEST 1 V 42217 Study: - XR CHEST 1 V 09/27/2019 7:19 AM Patient Name: MAC AGUSTIN MR: [id number] : 1945; Age: 74 years y/o Female Ordering Physician: Rabia Aguilar MD ClinicalIndication: Hypoxemia Comparison: September 26, 2019 x-ray FINDINGS LUNGS: The hypoinflated lungs are clear of consolidation, pleural effusion, and pneumothorax. HEART AND MEDIASTINUM: Normal size heart.LINES: The life support lines and tubes appear unchanged. OSSEOUS STRUCTURES: Mild spinal degenerative change without fracture, dislocation, or focal osseous lesion. OTHER: None. IMPRESSION: No acute abnormality as above discussed. SL: [id number] at 0752 Reported and signed by: Gian Alvarenga M.D. CC: Rabia Aguilar MD; Joel Myers MD Technologist: RT Martin(Bonifacio) Trnscrd Date/Time/By: 09/27/2019 (0752) : By: [email or web address] [...] code = CA) 6.7 mg/dL 8.0-10.5 L [id number] 07:33:00* Test Item Value Reference Range Interpretation Comme nts PHOSPHOROUS (test code = PHOS) 3.9 MG/DL 2.5-4.9 [id number] 07:33:00* Test Item Value Reference Range Interpretation Comme nts MAGNESIUM (test code = MAG) 2.50 mg/dL 1.8-2.4 H CALCIUM [id number] 07:33:00* Test Item Value Reference Range Interpretation Comme nts CALCIUM IONIZED (test code = DMITRY) 0.99 MMOL/L 1.12-1.32 L BASIC METABOLIC [id number] 07:25:00* Test Item Value Reference Range Interpretation [...] CALCIUM (test code = CA) mg/dL 8.0-10.5 [id number] 07:25:00* Test Item Value Reference Range Interpretation Comme nts PHOSPHOROUS (test code = PHOS) MG/DL 2.5-4.9 [id number] 07:25:00* Test Item Value Reference Range Interpretation Comme nts MAGNESIUM (test code = MAG) mg/dL 1.8-2.4 CALCIUM [id number] 07:25:00* Test Item Value Reference Range Interpretation Comme nts CALCIUM IONIZED (test code = DMITRY) 0.99 MMOL/L 1.12-1.32 L LACTIC [id number] 07:14:00* Test Item Value Reference Range Interpretation Comme nts LACTIC ACID (test code = LACT) 3.5 mmol/L 0.4-1.9 H CBC W/AUTO [id number] 06:52:00* Test Item Value Reference Range Interpretation [...] MANUAL DIFF REQUIRED (test code = MDIFF) [id number] 05:55:00* Test Item Value Reference Range Interpretation Comme nts GLUBED (test code = GLUBED) 146 MG/DL 70-110 H Performed by cer tified portable grinding machine operator at [facility] BASIC METABOLIC [id number] 03:07:00* Test Item Value Reference Range Interpretation [...] code = CA) 6.9 mg/dL 8.0-10.5 L [id number] 03:07:00* Test Item Value Reference Range Interpretation Comme nts PHOSPHOROUS (test code = PHOS) 2.3 MG/DL 2.5-4.9 L [id number] 03:07:00* Test Item Value Reference Range Interpretation Comme nts MAGNESIUM (test code = MAG) 2.50 mg/dL 1.8-2.4 H CALCIUM [id number] 03:07:00* Test Item Value Reference Range Interpretation Comme nts CALCIUM IONIZED (test code = DMITRY) 0.96 MMOL/L 1.12-1.32 L ARTERIAL BLOOD [id number] 02:42:00* Test Item Value Reference Range Interpretation Comme [facility] ARTERIAL BLOOD GAS PH (test code = [...] (test code = TCO2A) 16 CBC W/AUTO [id number] 02:24:00* Test Item Value Reference Range Interpretation [...] ED, CONSISTENT WITH AUTO DIFF. BASIC METABOLIC [id number] 02:14:00* Test Item Value Reference Range Interpretation [...] CALCIUM (test code = CA) mg/dL 8.0-10.5 [id number] 02:14:00* Test Item Value Reference Range Interpretation Comme nts PHOSPHOROUS (test code = PHOS) MG/DL 2.5-4.9 [id number] 02:14:00* Test Item Value Reference Range Interpretation Comme nts MAGNESIUM (test code = MAG) mg/dL 1.8-2.4 CALCIUM [id number] 02:14:00* Test Item Value Reference Range Interpretation Comme nts CALCIUM IONIZED (test code = DMITRY) 0.96 MMOL/L 1.12-1.32 L LACTIC ACID 2ND [id number] 02:01:00* Test Item Value Reference Range Interpretation Comme nts LACTIC ACID 2ND REPEAT (test code = LACT2) 6.2 mmol/L 0.4-1.9 HH CBC W/AUTO [id number] 01:51:00* Test Item Value Reference Range Interpretation [...] MANUAL DIFF REQUIRED (test code = MDIFF) [id number] 00:42:00* Test Item Value Reference Range Interpretation Comme nts GLUBED (test code = GLUBED) 117 MG/DL 70-110 H Performed by cer tified portable grinding machine operator at [facility] LIPOPROTEIN [id number] 23:01:00* Test Item Value Reference Range Interpretation Comme nts LIPOPROTEIN LDL (test code = LDL) 67 mg/dL 0-100 N <100 MQSWSWG95 0-129 NEAR OPTIMAL/ABOVE [id number] [id number] HIGH>BQ=951 VERY HIGH*Guidelines provided by the National Cholesterol EducationProgram Adult Treatment Panel III BASIC METABOLIC [id number] 22:46:00* Test Item Value Reference Range Interpretation [...] code = CA) 7.0 mg/dL 8.0-10.5 L [id number] 22:46:00* Test Item Value Reference Range Interpretation Comme nts PHOSPHOROUS (test code = PHOS) 1.6 MG/DL 2.5-4.9 L [id number] 22:46:00* Test Item Value Reference Range Interpretation Comme nts MAGNESIUM (test code = MAG) 2.40 mg/dL 1.8-2.4 [id number] 22:46:00* Test Item Value Reference Range Interpretation Comme nts TROPONIN-I (test code = TROPI) 0.284 ng/mL 0.000-0.045 Negative: <= 0.0 45 Positive: >= 0.046 Correlation with serial results, other cardiac markers andclinical findings is necessary to determine the clinicalsignificance of this result. Results using different methodologies should not be comparedto one another as quantitative results may vary by method. LACTIC ACID [id number] 22:44:00* Test Item Value Reference Range Interpretation Comme nts LACTIC ACID REPEAT (test cod e = LACTR) 7.8 mmol/l 0.4-1.9 CALCIUM [id number] 22:38:00* Test Item Value Reference Range Interpretation Comme nts CALCIUM IONIZED (test code = DMITRY) 0.96 MMOL/L 1.12-1.32 L [id number] 18:50:00* Test Item Value Reference Range Interpretation Comme nts GLUBED (test code = GLUBED) 126 MG/DL 70-110 H Performed by cer tified portable grinding machine operator at [facility] LACTIC [id number] 17:54:00* Test Item Value Reference Range Interpretation Comme nts LACTIC ACID (test code = LACT) 9.2 mmol/L 0.4-1.9 BASIC METABOLIC [id number] 17:54:00* Test Item Value Reference Range Interpretation [...] code = CA) 7.6 mg/dL 8.0-10.5 L [id number] 17:54:00* Test Item Value Reference Range Interpretation Comme nts PHOSPHOROUS (test code = PHOS) 1.2 MG/DL 2.5-4.9 L [id number] 17:54:00* Test Item Value Reference Range Interpretation Comme nts MAGNESIUM (test code = MAG) 1.50 mg/dL 1.8-2.4 L CALCIUM [id number] 17:54:00* Test Item Value Reference Range Interpretation Comme nts CALCIUM IONIZED (test code = DMITRY) 0.98 MMOL/L 1.12-1.32 L BASIC METABOLIC [id number] 17:39:00* Test Item Value Reference Range Interpretation [...] CALCIUM (test code = CA) mg/dL 8.0-10.5 [id number] 17:39:00* Test Item Value Reference Range Interpretation Comme nts PHOSPHOROUS (test code = PHOS) MG/DL 2.5-4.9 [id number] 17:39:00* Test Item Value Reference Range Interpretation Comme nts MAGNESIUM (test code = MAG) mg/dL 1.8-2.4 CALCIUM [id number] 17:39:00* Test Item Value Reference Range Interpretation Comme nts CALCIUM IONIZED (test code = DMITRY) 0.98 MMOL/L 1.12-1.32 L CBC W/AUTO [id number] 17:38:00* Test Item Value Reference Range Interpretation [...] (test code = MDIFF) NO ARTERIAL BLOOD [id number] 17:34:00* Test Item Value Reference Range Interpretation [...] (test code = TCO2A) 26 ARTERIAL BLOOD [id number] 15:12:00* Test Item Value Reference Range Interpretation [...] (test code = TCO2A) 20 VENOUS BLOOD [id number] 15:04:00* Test Item Value Reference Range Interpretation [...] (test code = TCO2V) 20 ACUTE HEPATITIS [id number] 12:54:00* Test Item Value Reference Range Interpretation [...] COMMENTS: At start of hemodialysisAB HEPATITIS B [id number] 12:54:00* Test Item Value Reference Range Interpretation Comme nts AB HEPATITIS B SURFACE (test code = HBSAB) COMMENTS: At start of hemodialysis- XR CHEST 1 [id number] 12:49:00FAX: Joel Falk [phone] [place]: St: ADM FAX: Mick Lin [phone] --- Name: MAC AGUSTIN : 1945 Age/S: 74/F [address] [place] [address] Bl Unit #: [id number] Loc: [address] [place] [address] Phys: Mick Lin MD Acct: [id number] Dis Date: Status: ADM IN PHONE #: Exam Date: 09/26/2019 1231 FAX #: [phone] Reason: CONFIRM LINE PLACEMENT OF RIGHT IJ EXAMS: CPT CODE: [id number] XR CHEST 1 V 33945 EXAM: Single view AP chest. EXAM DATE: [...] signed by: Tracy Johnson M.D. CC: Joel Garcia MD; Mick Lin MD Technologist: RT Viji(Bonifacio) Trnscrd Date/Time/By: 09/26/2019 (1514) : By: Delvis Booker Print D/T: S: 09/26/2019 (5527) PAGE 1 Signed ReportACUTE HEPATITIS [id number] 12:22:00* Test Item Value Reference Range Interpretation Comme nts AB HEPATITIS A IGM (test code = HAVMAB) INDEX NON REACT. AG HEPATITIS B SURFACE (test code = HBSAG) NON REACTIVE INDEX NonReactive AB HEPATITIS B CORE IGM (test code = HBCMAB) INDEX NON REACT. AB HEPATITIS C (test code = HCVAB) INDEX NON REACT. COMMENTS: At start of hemodialysisAB HEPATITIS B [id number] 12:22:00* Test Item Value Reference Range Interpretation Comme nts AB HEPATITIS B SURFACE (test code = HBSAB) COMMENTS: At start of hemodialysisACUTE HEPATITIS [id number] 12:22:00* Test Item Value Reference Range Interpretation Comme nts AB HEPATITIS A IGM (test code = HAVMAB) INDEX NON REACT. AG HEPATITIS B SURFACE (test code = HBSAG) NON REACTIVE INDEX NonReactive AB HEPATITIS B CORE IGM (test code = HBCMAB) INDEX NON REACT. AB HEPATITIS C (test code = HCVAB) INDEX NON REACT. COMMENTS: At start of hemodialysisAB HEPATITIS B [id number] 12:22:00* Test Item Value Reference Range Interpretation Comme nts AB HEPATITIS B SURFACE (test code = HBSAB) COMMENTS: At start of hemodialysisCOMPREHENSIVE METABOLIC [id number] 11:44:00* Test Item Value Reference Range Interpretation [...] code = ALKP) 52 IUnit/L 20-125 N [id number] 11:44:00* Test Item Value Reference Range Interpretation Comme nts PHOSPHOROUS (test code = PHOS) 9.2 MG/DL 2.5-4.9 [id number] 11:44:00* Test Item Value Reference Range Interpretation Comme nts MAGNESIUM (test code = MAG) 2.90 mg/dL 1.8-2.4 H CALCIUM [id number] 11:44:00* Test Item Value Reference Range Interpretation Comme nts CALCIUM IONIZED (test code = DMITRY) 1.07 MMOL/L 1.12-1.32 L LACTIC ACID 2ND [id number] 11:23:00* Test Item Value Reference Range Interpretation Comme nts LACTIC ACID 2ND REPEAT (test code = LACT2) 21.3 mmol/L 0.4-1.9 COMPREHENSIVE METABOLIC [id number] 10:59:00* Test Item Value Reference Range Interpretation [...] code = ALKP) 52 IUnit/L 20-125 N [id number] 10:59:00* Test Item Value Reference Range Interpretation Comme nts PHOSPHOROUS (test code = PHOS) MG/DL 2.5-4.9 [id number] 10:59:00* Test Item Value Reference Range Interpretation Comme nts MAGNESIUM (test code = MAG) 2.90 mg/dL 1.8-2.4 H CALCIUM [id number] 10:59:00* Test Item Value Reference Range Interpretation Comme nts CALCIUM IONIZED (test code = DMITRY) 1.07 MMOL/L 1.12-1.32 L COMPREHENSIVE METABOLIC [id number] 10:59:00* Test Item Value Reference Range Interpretation [...] code = ALKP) 52 IUnit/L 20-125 N [id number] 10:59:00* Test Item Value Reference Range Interpretation Comme nts PHOSPHOROUS (test code = PHOS) MG/DL 2.5-4.9 [id number] 10:59:00* Test Item Value Reference Range Interpretation Comme nts MAGNESIUM (test code = MAG) 2.90 mg/dL 1.8-2.4 H CALCIUM [id number] 10:59:00* Test Item Value Reference Range Interpretation Comme nts CALCIUM IONIZED (test code = DMITRY) 1.07 MMOL/L 1.12-1.32 L COMPREHENSIVE METABOLIC [id number] 10:50:00* Test Item Value Reference Range Interpretation [...] code = ALKP) 52 IUnit/L 20-125 N [id number] 10:50:00* Test Item Value Reference Range Interpretation Comme nts PHOSPHOROUS (test code = PHOS) MG/DL 2.5-4.9 [id number] 10:50:00* Test Item Value Reference Range Interpretation Comme nts MAGNESIUM (test code = MAG) 2.90 mg/dL 1.8-2.4 H CALCIUM [id number] 10:50:00* Test Item Value Reference Range Interpretation Comme nts CALCIUM IONIZED (test code = DMITRY) MMOL/L 1.12-1.32 COMPREHENSIVE METABOLIC [id number] 10:46:00* Test Item Value Reference Range Interpretation [...] ( test code = ALKP) IUnit/L 20-125 [id number] 10:46:00* Test Item Value Reference Range Interpretation Comme nts PHOSPHOROUS (test code = PHOS) MG/DL 2.5-4.9 [id number] 10:46:00* Test Item Value Reference Range Interpretation Comme nts MAGNESIUM (test code = MAG) mg/dL 1.8-2.4 CALCIUM [id number] 10:46:00* Test Item Value Reference Range Interpretation Comme nts CALCIUM IONIZED (test code = DMITRY) MMOL/L 1.12-1.32 CBC W/AUTO [id number] 10:19:00* Test Item Value Reference Range Interpretation [...] (test code = MDIFF) NO ARTERIAL BLOOD [id number] 09:53:00* Test Item Value Reference Range Interpretation [...] ARTERIAL (test code = TCO2A) < 5 [id number] 08:39:00* Test Item Value Reference Range Interpretation [...] 3 troponins total (including troponin done in ED)[id number] 07:39:00* Test Item Value Reference Range Interpretation Comme nts GLUBED (test code = GLUBED) 107 MG/DL 70-110 N Performed by cer tified portable grinding machine operator at [facility] LACTIC ACID [id number] 07:06:00* Test Item Value Reference Range Interpretation Comme nts LACTIC ACID REPEAT (test cod e = LACTR) 19.1 mmol/l 0.4-1.9 HH - CT ABD PELVIS W/O [id number] 06:29:00Name: MAC AGUSTIN [facility] [place] : 1945 Age/S: 74 / F [address] [place] [address] Blvd Unit #:[id number] Loc: [place] [address] Phys: Facundo Phan MD Acct: [id number] Dis Date: Status: REG ER PHONE #: [phone] Exam Date: 09/26/2019 0546 FAX #: [phone] Reason: POSSIBLE PNEUMOPERITONEUM EXAMS: CPT CODE: [id number] CT ABD PELVIS W/O CONT 48657 STUDY: - CT CHEST W/O CONTRAST, -CT ABD PELVIS W/O CONT 09/26/2019 4:27 AM Ordering Physician: Facundo Phan MD Patient Name: MAC AGUSTIN MR: [id number] : 1947; Age: 72 years y/o Female Clinical Indication: Dehydration. POSSIBLE PNEUMOPERITONEUM Comparison: None TECHNIQUE: Multiple contiguous transaxial noncontrastCT images were obtained through the chest, abdomen, and pelvis. Sagittal and coronal reformatted images were prepared. CT imaging performed at this location utilizes radiation dose optimization techni ques which include one or more of the [...] 1 Signed Report (CONTINUED) Name: [facility] 1945 Age/S: 74 / F [address] [place] [address] Blvd Unit #: [id number] Loc: [place] [address] Phys: Facundo Phan MD Acct: [id number] Dis Date: Status: REG ER PHONE #: [phone] Exam Date: 09/26/2019 0546 FAX #: [phone] Reason: POSSIBLE PNEUMOPERITONEUM EXAMS: CPT CODE: [id number] CT ABD PELVIS W/O CONT 69794 (Continued) lymphadenopathy or mass. SOFT TISSUES: Mild [...] pericecal inflammation is appreciated. STOMACH: Moderately dilated st omach with mild focal lobulated asymmetric thickening in the antropyloric region of the stomach andalong the greater gastric curvature that may be [...] cm maximum transverse dimension. IVC: Normal caliber nonenhanced.ABDOMINAL ORGANS: Liver: Normal size and morphology without discrete lesion. PAGE 2 Signed Report (CONTINUED) Name: MAC AGUSTIN : 1945 Age/S: 74 / F [address] [place], [place] [address]vd Unit #: [id number] Loc: [place] [address] Phys: Facundo Phan MD Acct: [id number] Dis Date: Status: REG ER PHONE #: [phone] Exam Date: 09/26/2019545 FAX #: [phone] Reason: POSSIBLEPNEUMOPERITONEUM EXAMS: CPT CODE: [id number] CT ABD PELVIS W/O CONT 49267 (Continued) Gallbladder: Postoperative change of cholecystectomy. Biliary Tree: Mildly prominent intrahepatic and extrahepatic bile ducts likely physiological in nature status post cholecystectomy. Kidneys: Normal size nonenhanced right kidney without nephrolithiasis, ureterolithiasis, hydronephrosis, or focal lesion. Smallvascular calcifications are seen centrally in the right [...] adnexa. SOFT TISSUES: Mild diffuse anasarca. Mild softtissue gas in the right anterior pelvic and lower abdominal wall likely related to medication injection. OSSEOUS STRUCTURES: Mild to moderate lumbar spondylosis and facet arthrosis. 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 No acute fracture or dislocation. IMPRESSION: Nonspecific nonobstructive bowel gas pattern associated with mild diffuse colonic wall thickening either related to underd istention or nonspecific colitis. Mild submucosal fat seen in the colon suggest chronic colonic inflammatory change. PAGE 3 Signed Report (CONTINUED) Name: MAC AGUSTIN [facility] : 1945 Age/S: 74 / F [address] [place] [address] Unit #: [id number] Loc: [place] [address] Phys: Facundo Phan MD Acct: [id number] Dis Date: Status: REG ER PHONE #: [phone] Exam Date: 09/26/2019545 FAX #: [phone] Reason: POSSIBLE PNEUMOPERITONEUM EXAMS: CPT CODE: [id number] CT ABD PELVIS W/O CONT 28397 (Continued) Mild sigmoid diverticulosis. Moderately dilated stomach [...] medication injection. Postoperative change of cholecystectomy. SL[facility] at 0629 Reported and signed by: Amadeo Edward M.D. PAGE 4 Signed Report (CONTINUED) Name: MAC AGUSTIN [facility] : 1945 Age/S: 74 / F [address] [place] [address] Unit #: [id number] Loc: [place] [address] Phys: Facundo Phan MD Acct: [id number] Dis Date: Status: REG ER PHONE #: [phone] Exam Date: 09/26/2019 0546 FAX #: [phone] Reason: POSSIBLE PNEUMOPERITONEUM EXAMS: CPT CODE: [id number] CT ABD PELVIS W/O CONT 66224 (Continued) CC: Facundo Worrell Technologist:RT Randy(R) CTDI: DLP: Trnscb Date/Time: 09/26/2019 (628) [email or web address] Orig Print D/T: S: 09/26/2019 (0632) PAGE 5 Signed Report- CT CHEST W/O [id number] 06:29:00Name: MAC AGUSTIN [facility] : 1945 Age/S: 74 / F [address] [place] [address] Unit #:[id number] Loc: [place] [address] Phys: Facundo Phan MD Acct: [id number] Dis Date: Status: REG ER PHONE #: [phone] Exam Date: 09/26/2019 0546 FAX #: [phone] Reason: POSSIBLE PNEUMOPERITONEUM EXAMS: CPT CODE: [id number] CT CHEST W/O CONTRAST 64393 STUDY: - CT CHEST W/O CONTRAST, - CT ABD PELVIS W/O CONT 09/26/2019 4:27 AM Ordering Physician: Facundo Phan MD Patient Name: BOO AGUSTIN MR: [id number] : 1947; Age: 72 years y/o Female Clinical Indication: Dehydration. POSSIBLE PNEUMOPERITONEUM Comparison: None TECHNIQUE: Multiple contiguous transaxial noncontrastCT images were obtained through the chest, abdomen, [...] ERIKA: Slightly heterogeneous thyroid without discrete lesion. Scatteredsubcentimeter mediastinal lymph nodes without PAGE 1 Signed Report (CONTINUED) Name: SHERYL AGUSTIN [facility] Crescencio Reece : 1945 Age/S: 74 / F [address] [place] [address] Unit #: [id number] Loc: [place] [address] Phys: Facundo Phan MD Acct: [id number] Dis Date: Status: REG ER PHONE #: [phone] Exam Date: 09/26/2019545 FAX #: [phone] Reason: POSSIBLE PNEUMOPERITONEUM EXAMS: CPT CODE: [id number] CT CHEST W/O CONTRAST 59138 (Continued) lymphadenopathy or mass. SOFT TISSUES: Mild [...] thickening in the antropyloric region of the stomachand along the greater gastric curvature that may be related to nonspecific gastritis or neoplasm. PE RITONEUM AND MESENTERY: Free Air: No evidence of [...] 2 Signed Report (CONTINUED) Name: MAC AGUSTIN [facility] : 1945 Age/S: 74 / F [address] [place], [place] [address]vd Unit #: [id number] Loc: [place] [address] Phys: Facundo Phan MD Acct: [id number] Dis Date: Status: REG ER PHONE #: [phone] Exam Date: 09/26/2019545 FAX #: [phone] Reason: POSSIBLE PNEUMOPERITONEUM EXAMS: CPT CODE: [id number] CT CHEST W/O CONTRAST 51235 (Continued) Gallbladder: Postoperative change of cholecystectomy. Biliary [...] fat seen in the colon suggest chronic colonicinflammatory change. PAGE 3 Signed Report (CONTINUED) Name: MAC AGUSTIN [facility] : 1945 Age/S: 74 / F [address] [place] [address] Unit #: [id number] Loc: [place] [address] Phys: Facundo Phan MD Acct: [id number] Dis Date: Status: REG ER PHONE #: [phone] Exam Date: 09/26/2019 0546 FAX #: [phone] Reason: POSSIBLE PNEUMOPERITONEUM EXAMS: CPT CODE: [id number] CT CHEST W/O CONTRAST 30575 (Continued) Mild sigmoid diverticulosis. Moderately dilated stomach [...] wall likely related to recent medication injection. Postoperativechange of cholecystectomy. SL: TPAINTER-H Electronically Signed by Blanche Edward on09/26/2019 at 0629 Reported and signed by: Amadeo Edward M.D. PAGE 4 Signed Report (CONTINUED) Name: MAC AGUSTIN [facility] : 1945 Age/S: 74 / F [address] [place] [address] Unit #: [id number] Loc: [place] [address] Phys: Facundo Phan MD Acct: [id number] Dis Date: Status: REG ER PHONE #: [phone] Exam Date: 09/26/2019545 FAX #: [phone] Reason: POSSIBLE PNEUMOPERITONEUM EXAMS: CPT CODE: [id number] CT CHEST W/O CONTRAST 98784 (Continued) CC: Facundo Phan MD Technologist:Kait Mckeon, RT(R) CTDI: DLP: Trnscb Date/Time: 09/26/2019 (628) t.SDR.[email or web address] OrigPrint D/T: S: 09/26/2019 (0632) PAGE 5 Signed Report- CT HEAD/BRAIN W/O [id number] 06:09:00Name: NIKOLEMAC [facility] : 1945 Age/S: 74 / F [address] [place] [address] Unit #: [id number] Loc: [place] [address] Phys: Facundo Phan MD Acct: [id number] Dis Date: Status: REG ER PHONE #: [phone] Exam Date: 09/26/2019545 FAX #: [phone] Reason: ALTERED MENTAL STATUS, EXAMS: CPT CODE: [id number] CT HEAD/BRAIN W/O CONT 49896 STUDY: - CT HEAD/BRAIN W/O CONT 09/26/2019 5:23 AM Ordering Physician: Facundo Phan MD Patient Name: MAC AGUSTIN MR: [id number] : 1947; Age: 72 years y/o Female Clinical Indication: ALTERED MENTAL STATUS, Comparison: NoneTECHNIQUE: Multiple contiguous transaxial noncontrast CT images were [...] the PAGE 1 Signed Report (CONTINUED) Name: AMC AGUSTIN [facility] : 1945 Age/S: 74 / F [address] [place] [address] Unit #: [id number] Loc: [place] [address] Phys: Facundo Phan MD Acct: [id number] Dis Date: Status: REG ER PHONE #: [phone] Exam Date: 09/26/2019 0546 FAX #: [phone] Reason: ALTERED MENTAL STATUS, EXAMS: CPT CODE: [id number] CT HEAD/BRAIN W/O CONT 71799 (Continued) remaining paranasal sinuses are clear. MASTOIDS: [...] RT(R) CTDI: DLP: Trnscb Date/Time: 09/26/2019 (608) tÁNGELARJamarcusTP6 Orig Print D/T: S: 09/26/2019 (611) PAGE 2 Signed Report- CT C-SPINE W/O [id number] 06:04:00Name: DAVIS AGUSTINMAC A [facility] : 1945 Age/S: 74 / F [address] [place], [place] [address]vd Unit #:[id number] Loc: [place] [address] Phys: Facundo Phan MD Acct: [id number] Dis Date: Status: REG ER PHONE #: [phone] Exam Date: 09/26/201946 FAX #: [phone] Reason: ALTERED MENTAL STATUS EXAMS: CPT CODE: [id number] CT C-SPINE W/O CONT 92869 STUDY: - CT C-SPINE W/O CONT 09/26/2019 5:23 AM Ordering Physician: Facundo Phan MD Patient Name: MAC AGUSTIN MR: [id number] : 1947; Age: 72 years y/o Female Clinical Indication: ALTERED MENTAL STATUS Comparison: None Technique: Multiple contiguous noncontrast CT images were obtained through the cervical spine. Coronal and sagittal reconstructions were prepared. CT imaging performed at this location utilizes radiation dose optimization techniques which include one or more of the following: -Automated exposure control-Adjustment of the mA and/or kV according to [...] fracture, dislocation, or suspicious focal osseous lesion. DISKSPACES: Multilevel mild spinal canal narrowing and mild neural foraminal narrowing greatest in the mid and lower cervical spine. PREVERTEBRAL SOFT TISSUES: The prevertebral soft tissue thickness is normal. Mildly heterogeneous thyroid. Mild vascular calcification both carotid bifurcations and ICA origins. LUNG APICES: The visualized portions of the lung apices are clear. PAGE 1 Signed Report (CONTINUED) Name: MAC AGUSTIN [facility] : 1945 Age/S: 74 / F [address] [place] [address] Unit #: [id number] Loc: [place] [address] Phys: Facundo Phan MD Acct: [id number] Dis Date: Status: REG ER PHONE #: [phone] Exam Date: 09/26/2019 0546 FAX #: [phone] Reason: ALTERED MENTAL STATUS EXAMS: CPT CODE: [id number] CT C- SPINE W/O CONT 86013 (Continued) Mastoids: Mild partialopacification of the mastoid air cells bilaterally. IMPRESSION: Mild cervical spondylosis and facet arthrosis without acute fracture or dislocation. Mild chronic bilateral mastoiditis. SL: TPAINTER-H at 0604 Reported and signed by: Amadeo Edward M.D. CC: Facundo Phan MD Technologist:RT Randy(R) CTDI: DLP:Trnscb Date/Time: 09/26/2019 (603) GaryTP6 Orig Print D/T: S: 09/26/2019 (606) PAGE 2 Signed Report- XR CHEST 1 [id number] 05:43:00FAX: Facundo Rivas MD [phone] [place]: St: REG Name: MAC AGUSTIN [facility] Crescencio Reece : 1947 Age/S: 72/F [address] [place] [address] Unit #: [id number] Loc: [place] [address] Phys: Facundo Phan MD Acct: [id number] Dis Date: Status: REG ER PHONE #: [phone] Exam Date: 09/26/2019 0532 FAX#: [phone] Reason: ALTERED MENTAL STATUS EXAMS: CPT CODE: [id number] XR CHEST 1 V 25716 Study:- XR CHEST 1 V 09/26/2019 5:23 AM Patient Name: MAC AGUSTIN MR: [id number] : 1947; Age:72 years y/o Female Ordering [...] 1 Signed Report (CONTINUED) FAX:Facundo Rivas MD [phone] [place]: St: REG Name: MAC AGUSTIN [facility] : 1947 Age/S: 72/F [address] [place] [address] Blvd Unit #: [id number] [place]: [place] [address] Phys: Facundo Phan MD Acct: [id number] Dis Date: Status: REG ER PHONE #: [phone] Exam Date: 09/26/2019 0532 FAX #: [phone] Reason: ALTERED MENTAL STATUS EXAMS: CPT CODE: [id number] XR CHEST 1 V 94047 (Continued)CC: Facundo Phan MD Technologist: Aleida France RT(R) Trnscrd Date/Time/By: 09/26/2019 (0543): By: [email or web address] Orig Print D/T: S: 09/26/2019 (0546) PAGE 2 Signed ReportARTERIAL BLOOD [id number] 04:53:00* Test Item Value Reference Range Interpretation [...] = CABRERA) Room Air Performed by certified portable grinding machine operator at [facility] ABG TEMPERATURE (test code = TEMPA) 91.7 F ABG SITE (test code = SITEA) R Rad TCO2 ARTERIAL (test code = TCO2A) < 5 B-TYPE NATRIURETIC [id number] 04:31:00* Test Item Value Reference Range Interpretation Comme nts B-TYPE NATRIURETIC PEPTIDE ( test code = BNP) 304.2 PG/ML 0-100 H UA RFLX MICR CULT IF [id number] 04:27:00* Test Item Value Reference Range Interpretation [...] LACT) 14.8 mmol/L 0.4-1.9 HH BASIC METABOLIC [id number] 04:23:00* Test Item Value Reference Range Interpretation [...] CA) 5.6 mg/dL 8.0-10.5 LL HEPATIC FUNCTION [id number] 04:23:00* Test Item Value Reference Range Interpretation [...] code = ALKP) 39 IUnit/L 20-125 N [id number] 04:23:00* Test Item Value Reference Range Interpretation Comme nts LIPASE (test code = LIP) 139 IUnit/L 73-393 N [id number] 04:23:00* Test Item Value Reference Range Interpretation Comme nts MAGNESIUM (test code = MAG) 0.90 mg/dL 1.8-2.4 LL TSH REFLEX TO [id number] 04:23:00* Test Item Value Reference Range Interpretation Comme nts TSH REFLEX TO FT4 (test code = TSHREFLEX) 0.68 IU/mL 0.42-5.47 N [id number] 04:23:00* Test Item Value Reference Range Interpretation Comme nts TROPONIN-I (test code = TROPI) 0.029 ng/mL 0.000-0.045 N Negative: <= 0.0 45 Positive: >= 0.046 Correlation with serial results, other cardiac markers andclinical findings is necessary to determine the clinicalsignificance of this result. Results using different methodologies should not be comparedto one another as quantitative results may vary by method. CBC W/AUTO [id number] 04:22:00* Test Item Value Reference Range Interpretation [...] REQUIRED (test code = MDIFF) YES WBC [id number] 04:22:00* Test Item Value Reference Range Interpretation [...] code = PLTMORPH) LARGE PLATELETS CBC W/AUTO [id number] 04:19:00* Test Item Value Reference Range Interpretation [...] REQUIRED (test code = MDIFF) YES WBC [id number] 04:19:00* Test Item Value Reference Range Interpretation Comme nts ANISOCYTOSIS (test code = ANISO) PLATELET ESTIMATE (test code = PLTEST) THOUSAND ADEQUATE BASIC METABOLIC [id number] 04:19:00* Test Item Value Reference Range Interpretation [...] CA) 5.6 mg/dL 8.0-10.5 LL HEPATIC FUNCTION [id number] 04:19:00* Test Item Value Reference Range Interpretation [...] code = ALKP) 39 IUnit/L 20-125 N [id number] 04:19:00* Test Item Value Reference Range Interpretation Comme nts LIPASE (test code = LIP) 139 IUnit/L 73-393 N [id number] 04:19:00* Test Item Value Reference Range Interpretation Comme nts MAGNESIUM (test code = MAG) 0.90 mg/dL 1.8-2.4 LL TSH REFLEX TO [id number] 04:19:00* Test Item Value Reference Range Interpretation Comme nts TSH REFLEX TO FT4 (test code = TSHREFLEX) IU/mL 0.42-5.47 [id number] 04:19:00* Test Item Value Reference Range Interpretation Comme nts TROPONIN-I (test code = TROPI) 0.029 ng/mL 0.000-0.045 N Negative: <= 0.0 45 Positive: >= 0.046 Correlation with serial results, other cardiac markers andclinical findings is necessary to determine the clinicalsignificance of this result. Results using different methodologies should not be comparedto one another as quantitative results may vary by method. CBC W/AUTO [id number] 04:19:00* Test Item Value Reference Range Interpretation [...] REQUIRED (test code = MDIFF) YES WBC [id number] 04:19:00* Test Item Value Reference Range Interpretation Comme nts ANISOCYTOSIS (test code = ANISO) PLATELET ESTIMATE (test code = PLTEST) THOUSAND ADEQUATE - XR CHEST 1 [id number] 04:10:00FAX: Facundo Rivas MD [phone] [place]: St: PRE Name: MAC AGUSTIN [facility] : 1947 Age/S: 72/F [address] [place] [address] Unit #: [id number] Loc: [place] [address] Phys: Siva Phan Acct: [id number] Dis Date: Status: PRE ER PHONE #: [phone] Exam Date: 09/26/2019 0405 FAX #: [phone] Reason: SOB EXAMS: CPT CODE: [id number] XR CHEST 1 V 25906 Study: - XR CHEST 1 V 09/26/2019 3:41 AM Patient Name: MAC AGUSTIN MR: [id number] : 1947; Age: 72 years y/o Female Ordering Physician: Facundo hPan MD Clinical Indication: Shortness of breath. Comparison: [...] Signed Report (CONTINUED) FAX: Facundo Rivas MD [phone] [place]: St: PRE -- Name: MAC AGUSTIN [facility] [place] : 1947 Age/S: 72/F [address] [place] [address] Unit #:[id number] Loc: [address] [address] Phys: Facundo Phan MD Acct: [id number] Dis Date: Status: PRE ER PHONE #: [phone] Exam Date: 09/26/2019 0405 FAX #: [phone] Reason: SOB EXAMS: CPT CODE: [id number] XR CHEST 1 V 84473 (Continued) CC: Facundo Phan MD Technologist: Lincoln Pretty RT(R) Trnscrd Date/Time/By: 09/26/2019 (0410) : By: [email or web address] Orig Print D/T: S: 09/26/2019 (0417) PAGE 2 Signed ReportPROTHROMBIN [id number] 04:09:00* Test Item Value Reference Range Interpretation [...] Infarction (to prevent recurrent infarct). THROMBOPLASTIN TIME [id number] 04:09:00* Test Item Value Reference Range Interpretation Comme nts THROMBOPLASTIN TIME PARTIAL (test code = PTT) 22.2 Seconds 25.0-39.5 L Therapeutic Rang e: 50.4 - 88.3 Seconds Effective 09/25/2018 [id number] 04:00:00* Test Item Value Reference Range Interpretation Comme nts GLUBED (test code = GLUBED) 147 MG/DL 70-110 H Performed by cer tified portable grinding machine operator at [facility] CBC W/AUTO [id number] 04:00:00* Test Item Value Reference Range Interpretation [...] DIFF REQUIRED (test code = MDIFF) BLOOD [id number] 07:52:00* Test Item Value Reference Range Interpretation Comme nts Report Text (test code = Report Text) [facility] 2018-11-12 846 Report Text7 (test code = Report Text7) BLOOD CULTURES HELD FOR 5 DAYS BEFORE FINAL Report Text8 (test code = Report Text8) Report Text9 (test code = Report Text9) [employer] SUGGESTS THAT Report Text10 (test code = Report Text10) MOST CASES OF BACTEREMIA ARE DETECTED BY USING Report Text11 (test code = Report Text11) THREE SETS OF SEPARATELY COLLECTED BLOOD CULTURES. Report Text12 (test code = Report Text12) [facility] 2018-11-12 847 Report Text13 (test code [...] Report Text18 (test code = Report Text18) [facility] 2018-11-12 848 Report Text19 (test code = Report Text19) DRAWN FROM RIGHT ANTICUBITAL VEIN Report Text20 (test code = Report Text20) Report Text21 (test code = Report Text21) [facility] 2018-11-13 626 Report Text22 (test code = Report Text22) NO GROWTH WITHIN 1 DAY Report Text23 (test code = Report Text23) PRELIMINARY REPORT Report Text24 (test code = Report Text24) Report Text25 (test code = Report Text25) [facility] 2018-11-14 905 Report Text26 (test code = Report Text26) NO GROWTH WITHIN 2 DAYS Report Text27 (test code = Report Text27) PRELIMINARY REPORT Report Text28 (test code = Report Text28) Report Text29 (test code = Report Text29) [facility] 2018-11-17 752 Report Text30 (test code = Report Text30) NO GROWTH WITHIN 5 DAYS Report Text31 (test code = Report Text31) FINAL REPORT BLOOD [id number] 07:52:00* Test Item Value Reference Range Interpretation Comme nts Report Text (test code = Report Text) [facility] 2018-11-12 847 Report Text7 (test code = Report Text7) BLOOD CULTURES HELD FOR 5 DAYS BEFORE FINAL Report Text8 (test code = Report Text8) Report Text9 (test code = Report Text9) [employer] SUGGESTS THAT Report Text10 (test code = Report Text10) MOST CASES OF BACTEREMIA ARE DETECTED BY USING Report Text11 (test code = Report Text11) THREE SETS OF SEPARATELY COLLECTED BLOOD CULTURES. Report Text12 (test code = Report Text12) [facility] 2018-11-12 848 Report Text13 (test code [...] Report Text18 (test code = Report Text18) [facility] 2018-11-12 849 Report Text19 (test code = Report Text19) COLLECTION SITE UNSPECIFIED Report Text20 (test code = Report Text20) [facility] 2018-11-13 626 Report Text21 (test code = Report Text21) NO GROWTH WITHIN 1 DAY Report Text22 (test code = Report Text22) PRELIMINARY REPORT Report Text23 (test code = Report Text23) Report Text24 (test code = Report Text24) [facility] 2018-11-14 905 Report Text25 (test [...] Report Text30) FINAL REPORT HEPATITIS C ANTIBODY [id number] 08:35:00* Test Item Value Reference Range Interpretation [...] are prelimenary and confirmation results will follow. [id number] 08:29:00* Test Item Value Reference Range Interpretation [...] (test code = CRYSTYPE) URIC ACID INFLUENZA [id number] 08:21:00* Test Item Value Reference Range Interpretation Comme nts FLU A (test code = FLU A) NEGATIVE NEGATIVE FLU B (test code = FLU B) NEGATIVE NEGATIVE FLU INTERNAL POSITIVE CNTRL (test code = FLU IPC) PASS PASS INFLUENZA LOT # (test code = FLULOT) [id number] INFLUENZA EXPIRATION DATE (t est code = FLUEXP) 11-09-2020 ABDOMEN 2 [id number] 07:48:[address] [address]BOAKKNTKRZ IMAGING REPORTPatient Name: MAC HALL ADate of Service: [id number]: 73 Sex: F Order #: [id number] [facility] 1945 [facility] Number: [id number] Record Number: [id number] Hospital Number: [id number] Physician: EDGARDO ORTIZOrdering Physician: ASHLEY SALAS 2 VIEWS@0736 hours on [...] 7:46 AMLegally authenticated by LISA Simms 2018-11-12 07:46:[id number] 07:38:00* Test Item Value Reference Range Interpretation [...] (test code = NEUT) 5.8 K/UL 1.2-7.2 [id number] 07:20:00* Test Item Value Reference Range Interpretation Comme [facility] LIPASE (test code = LIPA) 358 U/L 23-300 H LIVER [id number] 07:20:00* Test Item Value Reference Range Interpretation Comme [facility] TOTPROT (test code = TOTPROT) 8.2 G/DL 6.3-8.2 ALBUMIN (test code = ALBSERUM) 4.6 G/DL 3.5-5.0 BILITOT (test code = BILITOT) 0.5 MG/DL 0.2-1.3 BILIDIR (test code = BILIDIR) 0.3 MG/DL 0.0-0.4 AST (test code = AST) 18 U/L 15-46 PHOSALK (test code = PHOSALK) 99 U/L 38-126 ALT (test code = ALT) 26 U/L 13-69 ISTAT CHEM [id number] 06:45:00* Test Item Value Reference Range Interpretation Comme [facility] ISTATNA (test code = ISTATNA) 137 MMOL/L [...] code = ISTANGAP) 18 MMOL/L WHOLE BLOOD [id number] 21:25:00* Test Item Value Reference Range Interpretation Comme nts WHOLE BLOOD GLUCOSE (test co de = POC GLU) 178 MG/DL 70-99 [id number] 20:13:00* Test Item Value Reference Range Interpretation [...] code = NEUT) 15.7 K/UL 1.2-7.2 H [id number] 19:51:00* Test Item Value Reference Range Interpretation [...] (test code = UAMICRO) NO WHOLE BLOOD [id number] 19:40:00* Test Item Value Reference Range Interpretation Comme nts WHOLE BLOOD GLUCOSE (test co de = POC GLU) 253 MG/DL 70-99 H ISTAT CHEM 95930-04-75 18:15:00* Test Item Value Reference Range Interpretation [...] = ISTANGAP) 17 MMOL/L CT HEAD W/O [id number] 18:14:[address] [address]CARGLPBTEI IMAGING REPORTPatient Name: MAC HALL ADate of Service: [id number]: 73 Sex: F Order #: [id number] Room: [facility]: 1945 X-Ray Number: [id number] Record Number: [id number] Hospital Number: [id number] Physician: KIMBERLY HIGGINS TANOrdering Physician: IHSAN SALAS [...] by EDER Craft 2018-10-20 18:12:33CHEST 1 VIEW [id number] 18:00:[address] [address]GXLFWJDANH IMAGING REPORTPatient Name: dJ HALL of Service: [id number]: 73 Sex: F Order #: [id number] Room: [facility]: 1945 X-Ray Number: [id number] Record Number: [id number] Hospital Number: [id number] Physician: KIMBERLY HIGGINS TANOrdering Physician: Blanca SALAS.10/20/2018 [...] NEGATIVE A BILIRUBIN; Normal (test code = 57675-6) NEGATIVE NEGATIVE N KETONES; Normal (test code = 04165-0) NEGATIVE NEGATIVE N OCCULT BLOOD; Normal (test c ode = 80504-0) NEGATIVE NEGATIVE N PROTEIN; Normal (test code = 40151-2) NEGATIVE NEGATIVE N NITRITE (test code = NITRITE) NEGATIVE NEGATIVE N LEUKOCYTE ESTERASE (test cod e = LEUKOCYTE ESTERASE) NEGATIVE NEGATIVE N WBC; Normal (test code = 6690-2) 0-5 < OR = 5 N RBC; Normal (test code = 789-8) NONE SEEN < OR = 2 N SQUAMOUS EPITHELIAL CELLS; N ormal (test code = 47947-1) NONE SEEN < OR = 5 N BACTERIA; Normal (test code = 630-4) NONE SEEN NONE SEEN N HYALINE CAST; Normal (test c ode = 48196-9) NONE SEEN NONE SEEN N [facility][Q] REFLEXIVE URINE [id number] 15:24:00* Test Item Value Reference Range Interpretation Comme nts REFLEXIVE URINE CULTURE (test code = REFLEXIVE URINE CULTURE) NO CULTURE INDICATED [facility][O] Urine Dipstick (In Office)2018-07-09 16:23:00* Test Item Value Reference Range Interpretation Comme nts Glucose (test code = Glucose) 1000 LEUKOCYTES (test code = LEUKOCYTES) negative NITRITE (test code = 52554-5) negative UROBILINOGEN (test code = 45212-1) 0.2 PROTEIN (test code = 43982-8) negative pH (test code = pH) 5.0 URINE BLOOD (test code = 39609-6) trace SPECIFIC GRAVITY (test code = 2965-2) 1.020 KETONES (test code = 54794-5) 40 BILIRUBIN (test code = 33059-7) negative [facility]] TSH, 3RD [id number] 14:55:00* Test Item Value Reference Range Interpretation Comme nts TSH; Normal (test code = 49076-7) 1.49 {MIU/L} 0.40-4.50 N [facility]] CULTURE, URINE, [id number] 14:55:00* Test Item Value Reference Range Interpretation Comme nts CULTURE (test code = CULTURE) See Comment A CULTURE, URINE, ROUTINE MICRO NUMBER: [id number] TEST STATUS: FINAL SPECIMEN SOURCE: URINE SPECIMEN [...] are considered colonizers. No further testing performed. [facility]] LIPID [id number] 14:55:00* Test Item Value Reference Range Interpretation Comme nts CHOLESTEROL, TOTAL; Above High Threshold (test code = 2093-3) 298 mg/dl <200 HDL CHOLESTEROL; Below Low Threshold (test code = 2085-9) 48 mg/dl >50 TRIGLYCERIDES; Above High Threshold (test code = 2571-8) 350 mg/dl <150 LDL-CHOLESTEROL; Above High Threshold (test code = 07078-5) 191 {MG/DL JENNIFER} LDL-C levels > or = 190 mg/dL may indicate familial hypercholesterolemia (FH). Clinical assessment and measurement of blood lipid levels should be considered for all first degree relatives of patients with an FH diagnosis. For questions about testing for familialhypercholesterolem ia, please call [employer] at 1.[email or web address].Fanta T, et al. J National Lipid Association [...] LDL-C. Ronni YAN et al. VANESSA. 2013;310(19): 0816-1369 (http://education.[employer]/faq/DML809) CHOL/HDLC RATIO (test code = CHOL/HDLC RATIO) [...] <70 mg/dL) is considered a therapeutic option. [facility][QL] MICROALBUMIN, RANDOM URINE (W/CREATININE)2018-07-09 14:55:00 * Test [...] a patient to bewithin a diagnostic category. [facility][QL] CMP W/PXJT1976-09-78 14:55:00* Test Item Value Reference Range Interpretation [...] is approximately 13% higher for peopleidentified as -Burmese. eGFR NON- (test code = eGFR NON-) [...] N BILIRUBIN, TOTAL; Normal (test code = 38884-1) 0.5 mg/dl 0.2-1.2 N ALKALINE PHSPHATASE (test code = ALKALINE PHSPHATASE) 76 u/l 33-130 N AST; Normal (test code = 1916-6) 13 u/l 10-35 N ALT; Normal (test code = 1742-6) 23 u/l 6-29 N [facility]] CBC (INCLUDES DIFF/PLT)2018-07-09 14:55:00* Test Item Value Reference Range Interpretation Comme nts WHITE BLOOD CELL COUNT (test code = WHITE BLOOD CELL COUNT) 10.0 {Thousand/u} 3.8-10.8 N RED BLOOD CELL COUNT (test code = RED BLOOD CELL COUNT) 5.42 {Million/uL} 3.80-5.10 HEMAGLOBIN; Above High Threshold (test code = 89380-8) 16.0 g/dl 11.7-15.5 HEMATOCRIT; Above High Threshold (test code = 4544-3) 48.4 % 35.0-45.0 MCV; Normal (test code = 787-2) 89.3 fL 80.0-100.0 N MCHC; Normal (test code = 25356-8) 33.1 g/dl 32.0-36.0 N RDW; Normal (test code = 788-0) 13.0 % 11.0-15.0 N PLATELET COUNT; Normal (test code = 777-3) 334 {Thousand/u} 140-400 N MPV; Normal (test code = 09217-1) 11.9 fL 7.5-12.5 N ABSOLUTE NEUTROPHILS (test code = ABSOLUTE NEUTROPHILS) 5740 {cells/uL} 3309-7739 N ABSOLUTE LYMPHOCYTES (test code = ABSOLUTE [...] % N MONOCYTES; Normal (test code = 04394-4) 7.0 % N EOSINOPHILS; Normal (test code = 88959-3) 2.2 % N BASOPHILS; Normal (test code = 44424-0) 1.0 % N [facility][O] Hemoglobin A1c (in office)2018-07-09 13:38:00* Test Item Value Reference Range Interpretation Comme [facility] HEMOGLOBIN A1c (test code = 4548-4) 12.5 [facility][QLH] CULTURE, URINE, [id number] 00:00:00* Test Item Value Reference Range Interpretation Comme nts CULTURE (test code = CULTURE) See Comment A CULTURE, URINE, ROUTINE MICRO NUMBER: [id number] TEST STATUS: FINAL SPECIMEN SOURCE: URINE SPECIMEN [...] are considered colonizers. No further testing performed. [facility] Notes Date/Time Note Provider Source 2019-10-12 11:01:00 XLooimifwzx33239941z2wiobWU0T8BW1VJthRdC C1sUxO4eWk/Pbmua6 E3b3jeRyfaoXga1HABykvnW57G3306-66-33N20:01:[address] [facility])Hospitalist Discharge SummaryREPORT#:[id number] REPORT STATUS: SignedDATE:10/12/19 TIME: 110 PATIENT: MAC AGUSTIN UNIT #: [id number]#: [id number] [address] [birth year] AGE: 74 SEX: F ATTEND: Joel Myers [facility] AUTHOR: Nickie Ha MD * ALL edits or amendments must be made on the electronic/computer document * PCP PCPPCP:PCP: No Primary or Family Physician Discharge to: group home General InformationProblem List/A P: 1. Acute renal [...] was found to have abnormal labs at [place], sent to ED forevaluation. In the ED, [...] to 10.5On zosynTransfer to the floordw RN, HAM PASSER, consultantsCXR and telemetry personally reviewedFurther recs per clinical luqftv7210/01/2019- blood sugars stable on D10W. will switch [...] volume overload- off antibiotics- continue Megace- on Ylpgaje6610/05/2019- follow creatinine. continue IVF for now- Heparing for VTE- renal following- d/w patient's nurse.- calorie yhbacxik03/26/2020- patient very short of breath. suspicious for volume overload- will stop IVF- give 1 dose of lasix- check CXR and BNP- continue Megace- BP more stable on Midodrine- continue to mobilize- heparin for VTE- daughter voiced concern about patient's exposure to COVID at the facility she came from. Will test for COVID-19010/07/2019- Rapid COVID and PCR test negative- transfer out [address]- replete K+ and Mg+- off IV fluids.- renal function kxveyrrwb29/28/2020- pt reports feeling ok today, but is refusing all nursing care and refuses lab draw today- blood sugars adequately controlled for now, continue to hold metformin- appetite improved, monitor blood sugars closely, may need to start SSI as patient starts to eat more- nephrology following, continue to monitor renal function, HD per nephrology- d/c planning: reutrn to SNF when medically jkehar3810/09/2019- cooperative with care today, feeling OK- blood [...] renal service following- replete lytes- back to SNF/AL once renal function stabilizestotal time spent with evaluating patient/data as well as providing education/counselling to patient was more than 35 minutes 5/2stable for discharge back to SNF medications reviewed and reconciled stop metformin due to above Cr stable 2.2 follow up [facility] nephrology.>30 min, 36 min. Med Rec [...] PhysicianAttending Physician: Attending Physician: Joel Myers MD Oiurdortyz provider 1: Provider 1: Rabia Aguilar MD Specialty: NEPHROLOGY Exxgcuusuw provider 2: Provider 2: Israel Vaughan MD Rylpbtnvqh provider 3: Provider 3: Esau Reid MD Muzcqlbkoc provider 4: Provider 4: Ty Diaz MD Objective GeneralVS/I O:Vital Signs: Date Time Temp Pulse Resp B/P B/P Pulse O2 O2 Flow FiO2 Mean Ox Delivery Rate 10/11 1051 36.5 66 14 116/69 84.8 86 Room air / 0714 36.8 58 14 103/59 73.5 99 Room air 05/ 0415 36.7 73 16 99/63 75.1 95 [...] (bLE +1), no clubbing, no cyanosisMusculoskeletal: normal inspectionNeuro/DIRECTOR OF SOLUTIONS ARCHITECTURE: no motor deficitsSkin: no rashLymphatics: neck normalPsychiatry: [...] (Auto) (14.0 - 32.0 %) 22.9 17.1 Newton % (Auto) (4.8 - 9.0 %) 8.9 7.4 Eos % (Auto) (0.3 - 3.7 %) 0.8 0.9 Baso % (Auto) (0.0 - 2.0 %) 0.8 0.7 Neut # (Auto) (2.0 - 7.6 x10 3/uL) 5.51 7.21 Lymph # (Auto) (1.0 - 3.8 x10 3/uL) 1.91 1.68 Newton # (Auto) (0.1 - 0.8 x10 3/uL) [...] current med profile rev'd at 1103 RPT #:[id number] OF REPORTDSDischarge lgsrvbg4825-26-30T80:01:00G.PQCR55594933-4345UHVxgkdbywb for patient cfyaEIEWCQNQTLCNXH6806-17-22E25:03:27 [facility] 2019-10-12 06:39:00 AZcnmguhqxy57816968RWIovnLPJLfI0uxWK/qVe raJlMnR7KCn38ga6K cDhKkLEVrR7/SlGYkdkDTCmvUg0609-21-60W34:39:00 [facility] ([facility])Nephrology Progress NoteREPORT#:[id number] REPORT STATUS: SignedDATE:10/12/19 TIME: 0639 PATIENT: MAC AGUSTIN UNIT #: [id number]#: [id number] [address] [birth year] AGE: 74 SEX: F ATTEND: [facility] AUTHOR: Rabia Aguilar MD * ALL edits or amendments must be made on the electronic/computer document * SubjectiveChief Complaint:AMS/Lactic acidosis/AKIUnable to obtain: patient conditionComments:Patient seen and evaluated, HPI no change from initial, feels okay Review of SystemsUnable to obtain due to:Patient's condition Objective GeneralVS/I O:Vital Signs: Date Time Temp Pulse Resp B/P B/P Pulse O2 O2 Flow FiO2 Mean Ox Delivery Rate 10/115 36.7 73 16 99/63 75.1 95 Room [...] expansionAbdomen: softGenitourinary: no foleyExtremities: no edemaMusculoskeletal: normal inspectionNeuro/DIRECTOR OF SOLUTIONS ARCHITECTURE: altered mental statusSkin: dry ResultsFindings/Data:Laboratory Tests 10/10 [...] % (Auto) (14.0 - 32.0 %) 17.1 Newton % (Auto) (4.8 - 9.0 %) 7.4 Eos % (Auto) (0.3 - 3.7 %) 0.9 Baso % (Auto) (0.0 - 2.0 %) 0.7 Neut # (Auto) (2.0 - 7.6 x10 3/uL) 7.21 Lymph # (Auto) (1.0 - 3.8 x10 3/uL) 1.68 Newton # (Auto) (0.1 - 0.8 x10 3/uL) [...] acid 1.2 within normal limit, urine output nmjis9189 cc with Lasix. Chest x-ray still pending. [...] white blood cells 8.34 at 1109 RPT #:[id number] OF REPORTPRProgress Dzzz2718-12-58R70:39:00G.QUWR88489983-7313WUGpydqnewz for patient jlniPUFBWNFEFLEMGZ2890-33-57E59:10:17 [facility] 2019-10-11 13:14:00 AEmivfhhxyy94375021y5qrNRpqQaweUzqecCwHU mXMO0+6xOlgwnV7kI nIC1vQj/W7DJ3WXGRZAXlC4t1u8849-15-25K10:14:00 [facility] Dis[facility] SummaryREPORT#:[id number] REPORT STATUS: SignedDATE:10/11/19 TIME: 1314 PATIENT: MAC AGUSTIN UNIT #: [id number]#: [id number] [address] [birth year] AGE: 74 SEX: F ATTEND: [facility] AUTHOR: Nickie Ha MD * ALL edits or amendments must be made on the electronic/computer document * PCP PCPPCP:PCP: No Primary or Family Physician Discharge to: group home General InformationProblem List/A P: 1. Acute renal [...] was found to have abnormal labs at AL, sent to ED forevaluation. In the ED, [...] to 10.5On zosynTransfer to the floordw RN, HAM PASSER, consultantsCXR and telemetry personally reviewedFurther recs per clinical rjygin0410/01/2019- blood sugars stable on D10W. will switch [...] volume overload- off antibiotics- continue Megace- on [id number]/05/2019- follow creatinine. continue IVF for now- Heparing for VTE- renal following- d/w patient's nurse.- calorie ovjlzfqu80/26/2020- patient very short of breath. suspicious for volume overload- will stop IVF- give 1 dose of lasix- check CXR and BNP- continue Megace- BP more stable on Midodrine- continue to mobilize- heparin for VTE- daughter voiced concern about patient's exposure to COVID at the facility she came from. Will test for COVID-- Rapid COVID and PCR test negative- transfer out of [facility]- replete K+ and Mg+- off IV fluids.- renal function qabxafsbc06/28/2020- pt reports feeling ok today, but is refusing all nursing care and refuses lab draw today- blood sugars adequately controlled for now, continue to hold metformin- appetite improved, monitor blood sugars closely, may need to start SSI as patient starts to eat more- nephrology following, continue to monitor renal function, HD per nephrology- d/c planning: reutrn to SNF when medically vfanfo9410/09/2019- cooperative with care today, feeling OK- blood [...] renal service following- replete lytes- back to SNF/NH once renal function stabilizestotal time spent with evaluating patient/data as well as providing education/counselling to patient was more than 35 minutes 10/10able for discharge back to SNF medications reviewed and reconciled stop metformin due to above Cr stable 2.2 follow up [facility] nephrology.>30 min, 36 min. Med Rec [...] PhysicianAttending Physician: Attending Physician: Joel Myers MD Ymzfttmpce provider 1: Provider 1: Rabia Aguilar MD [...] (bLE +1), no clubbing, no cyanosisMusculoskeletal: normal inspectionNeuro/DIRECTOR OF SOLUTIONS ARCHITECTURE: no motor deficitsSkin: no rashLymphatics: neck normalPsychiatry: [...] % (Auto) (14.0 - 32.0 %) 17.1 Newton % (Auto) (4.8 - 9.0 %) 7.4 Eos % (Auto) (0.3 - 3.7 %) 0.9 Baso % (Auto) (0.0 - 2.0 %) 0.7 Neut # (Auto) (2.0 - 7.6 x10 3/uL) 7.21 Lymph # (Auto) (1.0 - 3.8 x10 3/uL) 1.68 Newton # (Auto) (0.1 - 0.8 x10 3/uL) [...] current med profile rev'd at 1317 RPT #:[id number] OF REPORTDSDischarge lwzmhhx6909-11-12K97:14:00G.WWUR85342779-3508ZODjsedwtao for patient qgzpLDXMJYNYBPPIFT4026-60-97Y01:18:22 [facility] 2019-10-11 09:50:00 PZbwtbiellz88731289pt9AT+hLhpduafAfKUEIX Yie+DwN+TUYkJRk6e DZ5d8YaGu4esosUM0GTh9QC0/51522-40-37M18:50:00 [facility] ([facility])Nephrology Progress NoteREPORT#:[id number] REPORT STATUS: SignedDATE:10/11/19 TIME: 0950 PATIENT: MAC AGUSTIN UNIT #: [id number]#: [id number] ROOM/BED: [facility]DOB: [birth year] AGE: 74 SEX: F ATTEND: Joel Myers [facility] AUTHOR: Rabia Aguilar MD * ALL edits [...] expansionAbdomen: softGenitourinary: no foleyExtremities: no edemaMusculoskeletal: normal inspectionNeuro/DIRECTOR OF SOLUTIONS ARCHITECTURE: altered mental statusSkin: dry ResultsFindings/Data:Laboratory Tests 10/10 10/09 10/09 10/09 10/09 0657 1948 1520 1009 0612 Chemistry POC Glucose (70 - 110 MG/DL) 130 H 177 H 175 H 136 H 119 H 10/09 10/08 10/08 10/08 10/08 0446 6 1539 1125 1057 Chemistry Sodium (134 - [...] (Auto) (14.0 - 32.0 %) 20.6 21.1 Newton % (Auto) (4.8 - 9.0 %) 6.5 7.0 Eos % (Auto) (0.3 - 3.7 %) 1.0 1.0 Baso % (Auto) (0.0 - 2.0 %) 0.6 0.3 Neut # (Auto) (2.0 - 7.6 x10 3/uL) 7.69 H 7.33 Lymph # (Auto) (1.0 - 3.8 x10 3/uL) 2.24 2.20 Newton # (Auto) (0.1 - 0.8 x10 3/uL) [...] acid 1.2 within normal limit, urine output wjcyq7410 cc with Lasix. Chest x-ray still pending. [...] check results when available. at 0952 RPT #:[id number] OF REPORTPRProgress Vfsg5913-47-58A58:50:00G.NXHV23714959-9831MZMoxkyktyo for patient dnnwJMCJXYLTYTXZEH6532-97-28D57:52:30 [facility] 2019-10-11 07:27:00 LIhyupebgbs70658603bBCBLcjS7NykwnJvCDfZc hDmyYE6EUHh9mGydY EDugVvXNJjV2wKgRIwWTMVKB0H0555-15-73W27:27:[address] [facility])Rehab Progress NoteREPORT#:[id number] REPORT STATUS: SignedDATE:10/11/19 TIME: 726 PATIENT: MAC AGUSTIN UNIT #: [id number]#: [id number] [address] [birth year] AGE: 74 SEX: F ATTEND: Joel Myers [facility] AUTHOR: Lucy Ayon PA-C * ALL edits or amendments must be made on the electronic/computer document * SubjectiveChief complaint:Pt seen in bed. Not much for conversation. + dementia. State she ate last night outside food brought from [employer]. No complaints. States unable to get oob. Objective GeneralVS:Vital Signs: Date Time Temp Pulse Resp B/P B/P Pulse O2 O2 Flow FiO2 Mean Ox Delivery Rate 10/10 0558 98.6 57 14 114/69 83.9 97 Room [...] clearNeck: supple, no JVDCardiovascular: regular rate rhythm, S1/I9Chujdcfhqzf: aerating well, clear bilaterallyAbdomen: bowel sounds present, non-distended, soft, soft, non-tenderSkin: dry, intactMusculoskeletal - general: Musculoskeletal - general: joints normal, range of motion normal, no swellingNeuro/DIRECTOR OF SOLUTIONS ARCHITECTURE: altered mental status, alert, no motor deficits, [...] TO PULL, PATIENT WAS RAISED UP TOWARD [facility] [facility]. PATIENT BED THEN PLACED IN CHAIR POSITION POST PT WITH ALL NEEDS IN REACH, BED ALARM PLACED, AND RN MADE AWARE OF PATIENT'S STATUS POST PT. If this is the patient's last treatment, this entry Start time: 1440 Stop time: 1505 Treatment Time (minutes): 25 Completed by: Josefa Batista Conference/Supervising PT: Candace Supervising Therapist: CHERYLRC1 Colocado,Sheet Sorter . Y ResultsFindings/Data:Laboratory Tests: 10/10 10/10 10/10 [...] % (Auto) (14.0 - 32.0 %) 17.1 Newton % (Auto) (4.8 - 9.0 %) 7.4 Eos % (Auto) (0.3 - 3.7 %) 0.9 Baso % (Auto) (0.0 - 2.0 %) 0.7 Neut # (Auto) (2.0 - 7.6 x10 3/uL) 7.21 Lymph # (Auto) (1.0 - 3.8 x10 3/uL) 1.68 Newton # (Auto) (0.1 - 0.8 x10 3/uL) [...] dementia she would benefit from returning to residential facility following her [facility] stay. I discussed with the patient's cauiogid-ul-ojf who is on the chart as 1 of the contacts and she states their wish is for her to return to [facility] once medically cleared. 10/01: Encourage particpation [...] intake. Planis for her to return to [facility] 10/10: Pt seen ate dinner last night. Continue to encourage po intake. Self limiting with OOB with therapy. SNF soon. Rehab attestation:Face to face exam completed. Treatment plan discussed with patient. at 1250 RPT #:[id number] OF REPORTPRProgress Bnmq1762-17-33I22:27:00G.XZAX65003308-0774ZQHqtqentjm for patient utryQOQHSIQAGIDLKV6022-59-22O95:50:38 [facility] 2019-10-10 22:35:00 SEofvayastv21912820LgeRP+mH5Ouo7UatsO6zc +hNrPQ5DWytFgHSA8 zkB02eofXL2t0Ck9gnO+vXpB2B3846-63-54W12:35:00 [facility] Progress NoteREPORT#:[id number] REPORT STATUS: SignedDATE:10/10/19 TIME: 2234 PATIENT: MAC AGUSTIN UNIT #: [id number]#: [id number] ROOM/BED: G5526-1DOB: [birth year] AGE: 74 SEX: F ATTEND: Joel [...] clearNeck: supple, no JVDCardiovascular: regular rate rhythm, S1/A7Dildpgkduaw: aerating well, clear bilaterallyAbdomen: bowel sounds present, non-distended, soft, soft, non-tenderSkin: dry, intactMusculoskeletal - general: Musculoskeletal - general: joints normal, range of motion normal, no swellingNeuro/DIRECTOR OF SOLUTIONS ARCHITECTURE: altered mental status, alert, no motor deficits, [...] TO PULL, PATIENT WAS RAISED UP TOWARD [facility] [place] [facility]. PATIENT BED THEN PLACED IN CHAIR POSITION [...] % (Auto) (14.0 - 32.0 %) 20.6 Newton % (Auto) (4.8 - 9.0 %) 6.5 Eos % (Auto) (0.3 - 3.7 %) 1.0 Baso % (Auto) (0.0 - 2.0 %) 0.6 Neut # (Auto) (2.0 - 7.6 x10 3/uL) 7.69 H Lymph # (Auto) (1.0 - 3.8 x10 3/uL) 2.24 Newton # (Auto) (0.1 - 0.8 x10 3/uL) [...] dementia she would benefit from returning to residential facility following her [facility] stay. I discussed with the patient's drbhlnso-qm-ura who is on the chart as 1 of the contacts and she states their wish is for her to return to [facility] once medically cleared. 10/01: Encourage particpation [...] intake. Planis for her to return to [facility] attestation:Face to face exam completed. Treatment plan discussed with patient. at 2249 RPT #:[id number] OF REPORTPRProgress Xssy4280-80-39N83:35:00G.VIWT92202558-9941ANBskqqqesz for patient jfbdMHQOHMKPELDRJT0422-09-85R20:50:00 [facility] 2019-10-10 08:06:00 UDpbgzuuaej55119422Wh6hBvLttIXjJjZeNgLsV bpLzCnJlg24Tku/ rzB16hiYfFTYQ3+wI80aOC4B6E6738-70-25F59:06:00 [facility]ph[facility] Progress NoteREPORT#:[id number] REPORT STATUS: SignedDATE:10/10/19 TIME: 805 PATIENT: MAC AGUSTIN UNIT #: [id number]#: [id number] [address] [birth year] AGE: 74 SEX: F ATTEND: Joel Myers [facility] AUTHOR: Rabia Aguilar MD * ALL edits [...] 92.2 95 Room air 10/08 0840 Nasal 3.774160 cannula 24 hour I O ending at [...] expansionAbdomen: softGenitourinary: no foleyExtremities: no edemaMusculoskeletal: normal inspectionNeuro/DIRECTOR OF SOLUTIONS ARCHITECTURE: altered mental statusSkin: dry ResultsFindings/Data:Laboratory Tests 10/09 [...] acid 1.2 within normal limit, urine output tzxil8393 cc with Lasix. Chest x-ray still pending. [...] to volume contraction. Will check post void resdiual4/ laboratories from this morning showed sodium 137, [...] 2 g IV x1. at 1135 RPT #:[id number] OF REPORTPRProgress Xrne3392-27-97R64:06:00G.LSSB92609485-5876UEWkdnjpqzi for patient crffUDSWGCWFLSPGHU7017-60-18X82:35:45 [facility] 2019-10-10 07:44:00 SWcnkmhriko11441217XVLZeOJ99kUIEtNHJpmnW vKjoI6IiDxTpJkFf5 535KKV17HdCUvCxo6/Vm3z1dLP4733-79-81G07:44:00 [facility]Hospital[facility] Progress NoteREPORT#:[id number] REPORT STATUS: SignedDATE:10/10/19 TIME: 07 PATIENT: MAC AGUSTIN UNIT #: [id number]#: [id number] [address] [birth year] AGE: 74 SEX: F ATTEND: [...] 92.2 95 Room air 10/08 0840 Nasal 3.349325 cannula 24 hour I O ending at [...] (bLE +1), no clubbing, no cyanosisMusculoskeletal: normal inspectionNeuro/DIRECTOR OF SOLUTIONS ARCHITECTURE: no motor deficitsSkin: no rashPsychiatry: normal affect [...] was found to have abnormal labs at [place], sent to ED for evaluation. In the [...] to 10.5On zosynTransfer to the floordw RN, HAM PASSER, consultantsCXR and telemetry personally reviewedFurther recs per [...] PCR test negative - transfer out of [facility] - replete K+ and Mg+ - off [...] following - replete lytes - back to SNF/NH once renal function stabilizestotal time spent with evaluating patient/data as well as providing education/counselling to patient was more than 35 minutes at 0838 RPT #:[id number] OF REPORTPRProgress Bljn2408-18-64V75:44:00G.FRVC42713157-9621WPYdrngmmgr for patient rgtxLPUSWAVLHCAMDR6268-02-68S06:38:22 [facility] 2019-10-09 15:23:00 MXysvoibmch3575276894MezX6hgMHE+A46Isg+e 5w0naRjYX6+lyxG+t xplZfIREMa+sGDu3n95XSohOGh3086-49-81B62:23:00 [facility] ([facility])Rehab Progress NoteREPORT#:[id number] REPORT STATUS: SignedDATE:10/09/19 TIME: 1522 PATIENT: MAC AGUSTIN UNIT #: [id number]#: [id number] [address] [birth year] AGE: 74 SEX: F ATTEND: Joel Myers [facility] AUTHOR: Lucy Ayon PA-C * ALL edits or amendments must be made on the electronic/computer document * SubjectiveChief complaint:Pt seen in bed. Not much for conversation. + dementia and unreliable. Objective GeneralVS:Vital Signs: Date Time Temp Pulse Resp B/P B/P Pulse O2 O2 Flow FiO2 Mean Ox Delivery Rate 10/08 1058 98.1 62 17 124/76 92.2 95 Room air 10/08 0840 Nasal 3.947816 cannula 10/08 0645 98.1 62 17 110/67 81.4 99 Room air 10/08 0431 98.4 63 16 112/73 85.9 96 Room air 10/08 0036 97.9 70 12 98/56 69.9 96 Room air 10/07 2118 Nasal 3.670552 cannula 10/07 1924 98.6 70 17 102/65 [...] clearNeck: supple, no JVDCardiovascular: regular rate rhythm, S1/O7Ciawuhvduoz: aerating well, clear bilaterallyAbdomen: bowel sounds present, non-distended, soft, soft, non-tenderSkin: dry, intactMusculoskeletal - general: Musculoskeletal - general: joints normal, range of motion normal, no swellingNeuro/DIRECTOR OF SOLUTIONS ARCHITECTURE: altered mental status, alert, no motor deficits, [...] 28 Completed by: Vanna Higgins Conference/Supervising PT: Candace Supervising Therapist: Darrion Martinez Pt refused OT [...] % (Auto) (14.0 - 32.0 %) 21.1 Newton % (Auto) (4.8 - 9.0 %) 7.0 Eos % (Auto) (0.3 - 3.7 %) 1.0 Baso % (Auto) (0.0 - 2.0 %) 0.3 Neut # (Auto) (2.0 - 7.6 x10 3/uL) 7.33 Lymph # (Auto) (1.0 - 3.8 x10 3/uL) 2.20 Newton # (Auto) (0.1 - 0.8 x10 3/uL) [...] - 0.1 x10 3/uL) 0.02 10/07 10/07 192 1540 Chemistry POC Glucose (70 - 110 [...] dementia she would benefit from returning to residential facility following her [facility] stay. I discussed with the patient's npqlztwu-wx-lpi who is on the chart as 1 of the contacts and she states their wish is for her to return to [facility] once medically cleared. 10/01: Encourage particpation [...] feeding tube. Rehab attestation:. at 1853 RPT #:[id number] OF REPORTPRProgress Zrxb0944-57-67Y07:23:00G.ZVNB42533425-0062OVSuodudalf for patient ymiuNMVGOOFLMZDKYB0436-54-04K39:54:21 [facility] 2019-10-09 12:54:00 EBshxkzhvpr23492816NLFg69QNhbA2vUqMWhOdb +a7g1ijXWjLQQzCx8 Nk7c+Y2EinDIVA/Kp1iaINCuGu1041-74-20L90:54:00 [facility] ([facility])Hospitalist Progress NoteREPORT#:[id number] REPORT STATUS: SignedDATE:10/09/19 TIME: 1254 PATIENT: MAC AGUSTIN UNIT #: [id number]#: [id number] [address] [birth year] AGE: 74 SEX: F ATTEND: [...] 92.2 95 Room air 10/08 0840 Nasal 3.830843 cannula 10/08 0645 98.1 62 17 110/67 81.4 99 Room air 10/08 0431 98.4 63 16 112/73 85.9 96 Room air 10/08 0036 97.9 70 12 98/56 69.9 96 Room air 10/07 2118 Nasal 3.187730 cannula 10/07 1924 98.6 70 17 102/65 [...] (bLE +1), no clubbing, no cyanosisMusculoskeletal: normal inspectionNeuro/DIRECTOR OF SOLUTIONS ARCHITECTURE: no motor deficitsSkin: no rashLymphatics: neck normalPsychiatry: [...] % (Auto) (14.0 - 32.0 %) 21.1 Newton % (Auto) (4.8 - 9.0 %) 7.0 Eos % (Auto) (0.3 - 3.7 %) 1.0 Baso % (Auto) (0.0 - 2.0 %) 0.3 Neut # (Auto) (2.0 - 7.6 x10 3/uL) 7.33 Lymph # (Auto) (1.0 - 3.8 x10 3/uL) 2.20 Newton # (Auto) (0.1 - 0.8 x10 3/uL) [...] was found to have abnormal labs at [place], sent to ED for evaluation. In the [...] to 10.5On zosynTransfer to the floordw RN, HAM PASSER, consultantsCXR and telemetry personally reviewedFurther recs per [...] PCR test negative - transfer out of [facility] - replete K+ and Mg+ - off [...] more than 35 minutes at 0738 RPT #:[id number] OF REPORTPRProgress Vhnv8004-29-33B35:54:00G.XGIQ78120792-4781XBZgyngbegf for patient czplPUCBOIZDHGNBCH9075-28-83W30:38:30 [facility] 2019-10-09 06:07:00 YCvkgcwbpfa16788176JXauYZFAvGcNvSMJHOPf+ vAuevXQuKJA8aa2SN SwJ1xjfQhdzrM/386y4/rXMduD6134-94-30Y21:07:00 [facility] ([facility])Nephrology Progress NoteREPORT#:[id number] REPORT STATUS: SignedDATE:10/09/19 TIME: 06 PATIENT: MAC AGUSTIN UNIT #: [id number]#: [id number] [address]OB: [birth year] AGE: 74 SEX: F ATTEND: Joel Myers [facility] AUTHOR: Rabia Aguilar MD * ALL edits [...] 69.9 96 Room air 10/07 2118 Nasal 3.417830 cannula 10/07 1924 37.0 70 17 102/65 77.4 96 Room air 10/07 1539 36.6 77 18 102/58 72.3 97 10/07 1023 37.1 65 18 114/69 83.9 97 10/07 0840 Nasal 3.798983 cannula 10/07 0635 36.8 62 18 118/78 [...] expansionAbdomen: softGenitourinary: no foleyExtremities: no edemaMusculoskeletal: normal inspectionNeuro/DIRECTOR OF SOLUTIONS ARCHITECTURE: altered mental statusSkin: dry ResultsFindings/Data:Laboratory Tests 10/08 [...] 155 H 130 H 112 H 10/06 1732 1223 Chemistry Sodium (134 - 147 [...] - 2.4 mg/dL) 1.50 L Laboratory Tests 10/080 0247 Hematology WBC (4.5 - 11.0 x10 [...] (Auto) (14.0 - 32.0 %) 21.1 25.3 Newton % (Auto) (4.8 - 9.0 %) 7.0 14.7 H Eos % (Auto) (0.3 - 3.7 %) 1.0 1.4 Baso % (Auto) (0.0 - 2.0 %) 0.3 0.4 Neut # (Auto) (2.0 - 7.6 x10 3/uL) 7.33 5.41 Lymph # (Auto) (1.0 - 3.8 x10 3/uL) 2.20 2.40 Newton # (Auto) (0.1 - 0.8 x10 3/uL) [...] 110 MG/DL) 204 H 108 Laboratory Tests 10/067 Hematology WBC (4.5 - [...] % (Auto) (14.0 - 32.0 %) 25.3 Newton % (Auto) (4.8 - 9.0 %) 14.7 H Eos % (Auto) (0.3 - 3.7 %) 1.4 Baso % (Auto) (0.0 - 2.0 %) 0.4 Neut # (Auto) (2.0 - 7.6 x10 3/uL) 5.41 Lymph # (Auto) (1.0 - 3.8 x10 3/uL) 2.40 Newton # (Auto) (0.1 - 0.8 x10 3/uL) [...] acid 1.2 within normal limit, urine output tnkdw9047 cc with Lasix. Chest x-ray still pending. [...] subcu once a week. at 0932 RPT #:[id number] OF REPORTPRProgress Bjfi0914-73-76Z14:07:00G.GAGD79784418-2485FQVlgvnngrj for patient olnuTOAGELBIEEPTTF6134-73-81B93:33:19 [facility] 2019-10-08 14:34:00 FPzdyamdrwi41601497yF9N477VENOde83ndcMFC P2IbtCX2IDs6qzr68 kqngzzbwsAP4haoF8LluGPiJY32737-20-67Z65:34:00 [facility] Progress NoteREPORT#:[id number] REPORT STATUS: SignedDATE:10/08/19 TIME: 1434 PATIENT: MAC AGUSTIN UNIT #: [id number]#: [id number] [address]: [address] [birth year] AGE: 74 SEX: F ATTEND: [...] Nasal cannula 10/07 0840 O2 Flow Rate 3.703765 10/07 0840 24 hour I O ending [...] altered mental statusHEENT: moist mucosal membranesCardiovascular: normal S1/L6Hxoyxmkapwe: clear to auscultationAbdomen: non-tender, normal bowel sounds, [...] bleeding- Discharge per primary at 1435 RPT #:[id number] OF REPORTPRProgress Bjvy2096-01-76M03:34:00G.SJXT60636573-2538KMMqmzlshbw for patient evhmFLZLWLUSBFWKUF6582-90-99C17:36:04 [facility] 2019-10-08 14:34:00 GVmyfcamaoy11644805wyMEdXpV5md34dN/GVH0I VG4E+DmAZL6QUcynD uOEgTMtqN+Bq7YPsrfnQQXzURr6993-44-24E48:34:[address] [facility])Gastroenterology Progress NoteREPORT#:[id number] REPORT STATUS: SignedDATE:10/08/19 TIME: 1434 PATIENT: MAC AGUSTIN UNIT #: [id number]#: [id number] [address] [birth year] AGE: 74 SEX: F ATTEND: Joel Myers [facility] AUTHOR: Arian Anderson * ALL edits or [...] Nasal cannula 10/07 0840 O2 Flow Rate 3.431904 10/07 0840 24 hour I O ending [...] altered mental statusHEENT: moist mucosal membranesCardiovascular: normal S1/Y0Sxhyvijjkri: clear to auscultationAbdomen: non-tender, normal bowel sounds, [...] the findings and plan as documented by HAM PASSER. at 1435 RPT #:[id number] OF REPORTPRProgress Nchr6771-39-92F10:34:00G.LYCR61153882-4015HAPadklyyfp for patient kypvNQDSPFMBEBFPDY0221-11-32U61:02:06 [facility] 2019-10-08 14:34:00 WFlkyiroxok581963558JAx2oKimGqz62wJ2YdOb fHeRELoy4nUrYWRb6 0W4KKSswSXbbzoVPZoVPWYZXu+9079-12-27H95:34:00 [facility] ([facility])Gastroenterology Progress NoteREPORT#:[id number] REPORT STATUS: SignedDATE:10/08/19 TIME: 143 PATIENT: MAC AGUSTIN UNIT #: [id number]#: [id number] [address] [birth year] AGE: 74 SEX: F ATTEND: [facility] Myers [facility] AUTHOR: Arian Anderson * ALL edits or [...] Nasal cannula 10/07 0840 O2 Flow Rate 3.680899 10/07 0840 24 hour I O ending [...] altered mental statusHEENT: moist mucosal membranesCardiovascular: normal S1/T6Ascpwbdhpsz: clear to auscultationAbdomen: non-tender, normal bowel sounds, [...] the findings and plan as documented by HAM PASSER. at 1435 at 0914 RPT #:[id number] OF REPORTPRProgress Jswp7461-37-71A67:34:00G.DPIV62009636-3236UFRjzqamcaj for patient moezEBGHONTCJKXMSR5445-45-81E01:15:17 [facility] 2019-10-08 14:05:00 XRjgbhrkdyu62331047NUhDzUvvDo4u93bCxDIBM 7bRO+bWDZ2qmLo2i5 tAX6qIlNMcgyOeNlURC4NEvItK0480-20-44P79:05:[address] [facility])Rehab Progress NoteREPORT#:[id number] REPORT STATUS: SignedDATE:10/08/19 TIME: 1405 PATIENT: MAC AGUSTIN UNIT #: [id number]#: [id number] [address] [birth year] AGE: 74 SEX: F ATTEND: [facility] Myers [facility] AUTHOR: Lucy Ayon PA-C * ALL edits or amendments must be made on the electronic/computer document * SubjectiveChief complaint:Pt seen in bed. No complaints. States cold. + Dementia. Objective GeneralVS:Vital Signs: Date Time Temp Pulse Resp B/P B/P Pulse O2 O2 Flow FiO2 Mean Ox Delivery Rate 10/07 1023 98.8 65 18 114/69 83.9 97 10/07 0840 Nasal 3.059645 cannula 10/07 0635 98.2 62 18 118/78 91.3 97 10/06 2356 97.2 76 17 137/67 0.0 96 Room air 10/06 2120 Nasal 3.874609 cannula 10/06 1943 98.4 54 97 10/06 [...] clearNeck: supple, no JVDCardiovascular: regular rate rhythm, S1/C6Trvszqwztsy: aerating well, clear bilaterallyAbdomen: bowel sounds present, non-distended, soft, soft, non-tenderSkin: dry, intactMusculoskeletal - general: Musculoskeletal - general: joints normal, range of motion normal, no swellingNeuro/DIRECTOR OF SOLUTIONS ARCHITECTURE: altered mental status, alert, no motor deficits, [...] Tests: 10/07 10/07 10/06 10/06 1022 0636 1900 1619 Chemistry POC Glucose (70 - 110 [...] acidosis with multiple electrolyte abnormalities including hypokalemia, hypo-Center anemia, hypocalcemia, hypoalbuminemia. Patient then developed acute pulmonary vascular congestion is being diuresed. Plan: Physical therapy, Occupational Therapy and speech therapy have been consulted. Due to patient being an unreliable historian and moderate dementia she would benefit from returning to residential facility following her [facility] stay. I discussed with the patient's oldqslmt-cx-hzk who is on the chart as 1 of the contacts and she states their wish is for her to return to [facility] once medically cleared. 10/01: Encourage particpation [...] to face exam completed. at 1409 RPT #:[id number] OF REPORTPRProgress Clra6348-76-38K11:05:00G.FBJX16761685-4525UJCfzjgmhkg for patient ybrrWHAFQSBCRSWBLL5643-36-02X90:09:49 [facility] 2019-10-08 12:04:00 HOpuyabsjle56380970FhacTLGIP6r8GEZZc36uk CoUlCMsdkwQDPhK5o /o+uQTn+TbEHq2boikuBsGy3eZ6139-85-93J08:04:00 [facility] Progress NoteREPORT#:[id number] REPORT STATUS: SignedDATE:10/08/19 TIME: 1204 PATIENT: MAC AGUSTIN UNIT #: [id number]#: [id number] [address] [birth year] AGE: 74 SEX: F ATTEND: [...] 18 114/69 83.9 97 10/07 0840 Nasal 3.648212 cannula 10/07 0635 98.2 62 18 118/78 91.3 97 10/06 2356 97.2 76 17 137/67 0.0 96 Room air 10/06 2120 Nasal 3.337934 cannula 10/06 1943 98.4 54 97 10/06 [...] (bLE +1), no clubbing, no cyanosisMusculoskeletal: normal inspectionNeuro/DIRECTOR OF SOLUTIONS ARCHITECTURE: no motor deficitsSkin: no rashLymphatics: neck normalPsychiatry: [...] was found to have abnormal labs at [place], sent to ED for evaluation. In the [...] to 10.5On zosynTransfer to the floordw RN, HAM PASSER, consultantsCXR and telemetry personally reviewedFurther recs per [...] patient's exposure to COVID at the facility donis from. Will test for COVID-19 10/07/2019 - Rapid COVID and PCR test negative - transfer out of [facility] - replete K+ and Mg+ - off [...] more than 35 minutes at 0733 RPT #:[id number] OF REPORTPRProgress [id number]:04:00G.[id number] for patient dmcjPHEIXLOZCBFOLN9993-89-42A97:33:42 HCACL 2019-10-08 07:45:00 [id number] 3MV2LBCqlsTmemigj bXEQqAxqDVB/2aFU0c8gUN7VUR0720-53-89W31:45:00 [facility]Nephrology Progress NoteREPORT#:[id number] REPORT STATUS: SignedDATE:10/08/19 TIME: 0745 PATIENT: MAC AGUSTIN UNIT #: [id number]#: [id number] [address] AGE: 74 SEX: F ATTEND: [facility] AUTHOR: Rabia Aguilar MD * ALL edits [...] 0.0 96 Room air 10/06 2120 Nasal 3.939173 cannula 10/06 1943 36.9 54 97 10/06 1906 36.8 42 17 127/63 84.0 98 Room air 10/06 1620 36.8 60 18 121/68 86.1 97 10/06 0900 Nasal 3.780768 cannula 10/06 0800 36.6 64 33 125/58 [...] expansionAbdomen: softGenitourinary: no foleyExtremities: no edemaMusculoskeletal: normal inspectionNeuro/DIRECTOR OF SOLUTIONS ARCHITECTURE: altered mental statusSkin: dry ResultsFindings/Data:Laboratory Tests 10/06 [...] % (Auto) (14.0 - 32.0 %) 25.3 Newton % (Auto) (4.8 - 9.0 %) 14.7 H Eos % (Auto) (0.3 - 3.7 %) 1.4 Baso % (Auto) (0.0 - 2.0 %) 0.4 Neut # (Auto) (2.0 - 7.6 x10 3/uL) 5.41 Lymph # (Auto) (1.0 - 3.8 x10 3/uL) 2.40 Newton # (Auto) (0.1 - 0.8 x10 3/uL) [...] M.D. Laboratory Tests 10/06 10/06 10/06 10/06 8985 1619 1108 0749 Chemistry POC Glucose (70 [...] acid 1.2 within normal limit, urine output [id number] cc with Lasix. Chest x-ray still pending. [...] IV fluid was DC'd. at 1100 RPT #:[id number] OF REPORTPRProgress Oefz7483-92-37V14:45:00G.AUOV73360692-2349QYZdcfbdlqz for patient vdliMQOZOAGUGMLOJO8762-29-52V78:00:50 [facility] 2019-10-08 07:45:00 TQkdumbevoc49731565HOuD6LlU+Fv9Jy9xxH7lk z219sPu5JAdzDpm2c vZNVJvQYdwjpMy01mEuJKxzymS5154-89-48Y33:45:00 [facility] ([facility] Progress NoteREPORT#:[id number] REPORT STATUS: SignedDATE:10/08/19 TIME: 0745 PATIENT: MAC AGUSTIN UNIT #: [id number]#: [id number] ROOM/BED: 5526-1DOB: [birth year] AGE: 74 SEX: F ATTEND: [facility] AUTHOR: Rabia Aguilar MD * ALL edits [...] 0.0 96 Room air 10/06 2120 Nasal 3.842554 cannula 10/06 1943 36.9 54 97 10/06 1906 36.8 42 17 127/63 84.0 98 Room air 10/06 1620 36.8 60 18 121/68 86.1 97 10/06 0900 Nasal 3.570773 cannula 10/06 0800 36.6 64 33 125/58 [...] expansionAbdomen: softGenitourinary: no foleyExtremities: no edemaMusculoskeletal: normal inspectionNeuro/DIRECTOR OF SOLUTIONS ARCHITECTURE: altered mental statusSkin: dry ResultsFindings/Data:Laboratory Tests 10/06 [...] % (Auto) (14.0 - 32.0 %) 25.3 Newton % (Auto) (4.8 - 9.0 %) 14.7 H Eos % (Auto) (0.3 - 3.7 %) 1.4 Baso % (Auto) (0.0 - 2.0 %) 0.4 Neut # (Auto) (2.0 - 7.6 x10 3/uL) 5.41 Lymph # (Auto) (1.0 - 3.8 x10 3/uL) 2.40 Newton # (Auto) (0.1 - 0.8 x10 3/uL) [...] 10/06 10/06 10/06 10/06 1905 1619 1108 0722 Chemistry POC Glucose (70 - 110 MG/DL) [...] acid 1.2 within normal limit, urine output oerrc3139 cc with Lasix. Chest x-ray still pending. [...] check results when available at 1101 RPT #:[id number] OF REPORTPRProgress Kxws1371-58-15G97:45:00G.VCMH30798535-6621YMSyqbhsdlz for patient elgdDFEUSKNBRFKFBU1359-27-25C57:02:00 [facility] 2019-10-07 16:37:00 YTqdpyvwdhu55582292nnVoSz1PEKpYrTM9d69YG RFlY8mrdQsXB4sA1z ufp5/Y55n/ASt6RLkCaMo0YSo96322-97-83F06:37:00 [facility] ([facility])Rehab Progress NoteREPORT#:[id number] REPORT STATUS: SignedDATE:10/07/19 TIME: 163 PATIENT: MAC AGUSTIN UNIT #: [id number]#: [id number] [address] [birth year] AGE: 74 SEX: F ATTEND: [facility] AUTHOR: Lucy Ayon PA-C * ALL edits or amendments must be made on the electronic/computer document * SubjectiveChief complaint:Pt seen in bed. No complaints. States cold. Pt ruled out for COVID Objective GeneralVS:Vital Signs: Date Time Temp Pulse Resp B/P B/P Pulse O2 O2 Flow FiO2 Mean Ox Delivery Rate 10/06 1620 98.2 60 18 121/68 86.1 97 10/06 0900 Nasal 3.017524 cannula 10/06 0800 97.8 64 33 125/58 [...] 97.7 63 16 104/68 80.0 99 Nasal 3.786262 cannula Patient Weight Weight (lb): 167Weight (oz): [...] clearNeck: supple, no JVDCardiovascular: regular rate rhythm, S1/I3Uxffjmbmkhg: aerating well, clear bilaterallyAbdomen: bowel sounds present, non-distended, soft, soft, non-tenderSkin: dry, intactMusculoskeletal - general: Musculoskeletal - general: joints normal, range of motion normal, no swellingNeuro/DIRECTOR OF SOLUTIONS ARCHITECTURE: altered mental status, alert, no motor deficits, [...] % (Auto) (14.0 - 32.0 %) 25.3 Newton % (Auto) (4.8 - 9.0 %) 14.7 H Eos % (Auto) (0.3 - 3.7 %) 1.4 Baso % (Auto) (0.0 - 2.0 %) 0.4 Neut # (Auto) (2.0 - 7.6 x10 3/uL) 5.41 Lymph # (Auto) (1.0 - 3.8 x10 3/uL) 2.40 Newton # (Auto) (0.1 - 0.8 x10 3/uL) [...] (0.0 - 0.1 x10 3/uL) 0.02 10/05 173 Chemistry POC Glucose (70 - 110 MG/DL) [...] dementia she would benefit from returning to residential facility following [facility]. I discussed with the patient's mvdcwmfh-il-ovm who is on the chart as 1 of the contacts and she states their wish is for her to return to [facility] once medically cleared. 10/01: Encourage particpation [...] plan discussed with patient. at 1639 RPT #:[id number] OF REPORTPRProgress Tkzp8331-27-51U94:37:00G.XDNI35067446-5722WKWfnxgrzqr for patient dydbQIBKQZCEJGBCEI4064-71-76A18:39:31 [facility] 2019-10-07 08:17:00 GPediwtepnw13994786LVEz0DMHr7DhYneU8yrAl GYFxt/susOhIREmcT Sja+bxtxuAVZcxc0Pt1j3xJsJb6756-38-18I41:17:00 [facility] Progress NoteREPORT#:[id number] REPORT STATUS: SignedDATE:10/07/19 TIME: 816 PATIENT: MAC AGUSTIN UNIT #: [id number]#: [id number] [address] [birth year] AGE: 74 SEX: F ATTEND: [...] 97.7 63 16 104/68 80.0 99 Nasal 3.266669 cannula 10/05 1226 98.4 62 16 114/69 83.9 100 Nasal 3.650252 cannula 24 hour I O ending at [...] MG 0900,1300,1700 PO Sodium Chloride 1,000 ML .H84H36O IV (DC) Pantoprazole 40 MG BID@0600,1800 PO [...] (bLE +1), no clubbing, no cyanosisMusculoskeletal: normal inspectionNeuro/DIRECTOR OF SOLUTIONS ARCHITECTURE: no motor deficitsSkin: no rashPsychiatry: normal affect [...] % (Auto) (14.0 - 32.0 %) 25.3 Newton % (Auto) (4.8 - 9.0 %) 14.7 H Eos % (Auto) (0.3 - 3.7 %) 1.4 Baso % (Auto) (0.0 - 2.0 %) 0.4 Neut # (Auto) (2.0 - 7.6 x10 3/uL) 5.41 Lymph # (Auto) (1.0 - 3.8 x10 3/uL) 2.40 Newton # (Auto) (0.1 - 0.8 x10 3/uL) [...] Report Impression - Status: SIGNED Entered: 10/06/2019 0907 IMPRESSION:1. Decreasing bilateral pleural effusions and bibasilar [...] was found to have abnormal labs at AL, sent to ED for evaluation. In the [...] to 10.5On zosynTransfer to the floordw RN, HAM PASSER, consultantsCXR and telemetry personally reviewedFurther recs per [...] patient's exposure to COVID at the facility donis from. Will test for COVID-19 10/07/2019 - Rapid COVID and PCR test negative - transfer out of [facility] - replete K+ and Mg+ - off IV fluids. - renal function improvingtotal time spent with evaluating patient/data as well as providing education/counselling to patient was more than 35 minutes at 0733 RPT #:[id number] OF REPORTPRProgress Fkzr9527-75-31I54:17:00G.QRUW82296309-3574OPEiljxkgkk for patient gcybVHPRCNQKTHJWDL4518-97-14W79:33:22 [facility] 2019-10-07 07:32:00 HAkdzveziod69390265TzeWWXwDMH6dICHXGjU3q RWEF2QCIXhoDSSGGs LH71vP+PaM4W7SatxTNAqzyiFo3603-04-42Q89:32:00 [facility] ([facility])Nephrology Progress NoteREPORT#:[id number] REPORT STATUS: SignedDATE:10/07/19 TIME: 0732 PATIENT: NIKOLEMAC Jaki UNIT #: [id number]#: [id number] [address] [birth year] AGE: 74 SEX: F ATTEND: [facility] AUTHOR: Rabia Aguilar MD * ALL edits [...] 36.5 63 16 104/68 80.0 99 Nasal 3.066542 cannula 10/05 1226 36.9 62 16 114/69 83.9 100 Nasal 3.764970 cannula 10/05 0736 36.9 61 16 107/53 71.1 97 Nasal 3.156946 cannula 24 hour I O ending at [...] expansionAbdomen: softGenitourinary: no foleyExtremities: no edemaMusculoskeletal: normal inspectionNeuro/DIRECTOR OF SOLUTIONS ARCHITECTURE: altered mental statusSkin: dry ResultsFindings/Data:Laboratory Tests 10/06 [...] % (Auto) (14.0 - 32.0 %) 25.3 Newton % (Auto) (4.8 - 9.0 %) 14.7 H Eos % (Auto) (0.3 - 3.7 %) 1.4 Baso % (Auto) (0.0 - 2.0 %) 0.4 Neut # (Auto) (2.0 - 7.6 x10 3/uL) 5.41 Lymph # (Auto) (1.0 - 3.8 x10 3/uL) 2.40 Newton # (Auto) (0.1 - 0.8 x10 3/uL) [...] acid 1.2 within normal limit, urine output jbtga3672 cc with Lasix. Chest x-ray still pending. [...] IV fluid was DC'd. at 1214 RPT #:[id number] OF REPORTPRProgress Mvds9303-65-15Z66:32:00G.HJCB33952636-1324SBUjiepnsgd for patient rsldYWOXKLVDSCKOPN7066-40-74D20:14:44 [facility] 2019-10-06 08:21:00 YNcyvamfdjx38624927OM0RRO7dGKg7CEwMR9EUH K8jVSECyIHEi0my6k Nx3fwr+xoEn9N4Lmt2ka+8FP0u6158-91-77V43:21:00 [facility] Progress NoteREPORT#:[id number] REPORT STATUS: SignedDATE:10/06/19 TIME: 820 PATIENT: MAC AGUSTIN UNIT #: [id number]#: [id number] [address]: [birth year] AGE: 74 SEX: F ATTEND: [facility] AUTHOR: Rabia Aguilar MD * ALL edits [...] 36.9 61 16 107/53 71.1 97 Nasal 3.721492 cannula 10/05 0554 37.2 56 16 100/61 74.0 94 10/05 0007 37.0 51 16 116/66 82.7 95 10/04 2022 37.0 56 16 107/56 72.7 95 10/04 1920 3.736075 10/04 1709 37.0 60 16 110/65 80.1 93 Room air 10/04 1130 37.0 64 16 117/75 89.1 97 Nasal 3.768529 cannula 10/04 0856 36.7 63 16 115/74 87.8 98 Nasal 3.451243 cannula 24 hour I O ending at 0700: 04/26 0700 10/04 1900 Intake Total 100 1200.00 Output Total Balance 100 1200.00 Intake, IV 700.00 Intake, Oral 100 170 Intake, Oral 0 330 Supplement Number 1 Bowel Movements Number Voids 1 MedicationsActive Meds + DC'd Last 24 HrsPotassium Chloride 50 ML Q1HR IV (DC) Midodrine 5 MG 0900,1300,1700 PO Sodium Chloride 1,000 ML .U88F95R IV Pantoprazole 40 MG BID@0600,1800 PO Megestrol [...] expansionAbdomen: softGenitourinary: no foleyExtremities: no edemaMusculoskeletal: normal inspectionNeuro/DIRECTOR OF SOLUTIONS ARCHITECTURE: altered mental statusSkin: dry ResultsFindings/Data:Laboratory Tests 10/04 [...] % (Auto) (14.0 - 32.0 %) 29.3 Newton % (Auto) (4.8 - 9.0 %) 19.0 H Eos % (Auto) (0.3 - 3.7 %) 1.8 Baso % (Auto) (0.0 - 2.0 %) 0.4 Neut # (Auto) (2.0 - 7.6 x10 3/uL) 2.74 Lymph # (Auto) (1.0 - 3.8 x10 3/uL) 1.65 Newton # (Auto) (0.1 - 0.8 x10 3/uL) [...] (ANA) - COMP STOOL Laboratory Tests 10/04 171 1128 Chemistry POC Glucose (70 - 110 [...] acid 1.2 within normal limit, urine output egjzw6812 cc with Lasix. Chest x-ray still pending. [...] trend down, continue IV fluid. at 1344 [facility] #:[id number] OF REPORTPRProgress Ovwl8773-81-85E60:21:00G.IUVZ57755413-3518OBCpdutibuw for patient stypVRSUOCPOMIJMDG5465-91-30S38:44:52 [facility] 2019-10-06 08:00:00 MBgxrzhlsjj9030863003oL7PxWplWZjaUOTrftD YNETxgrzAVdP4yprX H5RE7/GQ8hGS0nhc1oqWk5pNms4122-54-08Q50:00:00 [facility] ([facility]ITALHospital[facility] Progress NoteREPORT#:[id number] REPORT STATUS: SignedDATE:10/06/19 TIME: 0800 PATIENT: MAC AGUSTIN UNIT #: [id number]#: [id number] [address]: [birth year] AGE: 74 SEX: F ATTEND: [...] 98.4 61 16 107/53 71.1 97 Nasal 3.666324 cannula 10/05 0554 99.0 56 16 100/61 74.0 94 10/05 0007 98.6 51 16 116/66 82.7 95 10/04 2022 98.6 56 16 107/56 72.7 95 10/04 1920 3.417142 10/04 1709 98.6 60 16 110/65 80.1 93 Room air 10/04 1130 98.6 64 16 117/75 89.1 97 Nasal 3.391823 cannula 10/04 0856 98.1 63 16 115/74 87.8 98 Nasal 3.351384 cannula 24 hour I O ending at [...] MG 0900,1300,1700 PO Sodium Chloride 1,000 ML .F01R58Z IV Pantoprazole 40 MG BID@0600,1800 PO Megestrol [...] (bLE +1), no clubbing, no cyanosisMusculoskeletal: normal inspectionNeuro/DIRECTOR OF SOLUTIONS ARCHITECTURE: no motor deficitsSkin: no rashPsychiatry: normal affect [...] was found to have abnormal labs at AL, sent to ED for evaluation. In the [...] to 10.5On zosynTransfer to the floordw RN, HAM PASSER, consultantsCXR and telemetry personally reviewedFurther recs per [...] more than 35 minutes at 0824 RPT #:[id number] OF REPORTPRProgress Czxy2392-00-48A61:00:00G.HKEY95603478-8520WJTwgfxtgfy for patient mxwoBCXMKVPGGZRULH3892-60-55V90:24:59 [facility] 2019-10-05 08:04:00 YJfmlqiyxhq02467682XlZpmrWPcJY030XILDkaJ JvyIs8/OT3FRbDpwB guLAwUC7UVqt9lbVK+mm9d89vj0215-81-45L26:04:00 [facility] ([facility]Neph[facility] Progress NoteREPORT#:[id number] REPORT STATUS: SignedDATE:10/05/19 TIME: 0804 PATIENT: MAC AGUSTIN UNIT #: [id number]#: [id number] [address]: [birth year] AGE: 74 SEX: F ATTEND: [facility] AUTHOR: Rabia Aguilar MD * ALL edits [...] 17 113/67 82.0 98 10/04 0207 Nasal 4.682006 cannula 10/04 0000 36.6 56 16 114/67 82.4 95 10/03 2105 37.0 56 16 112/69 83.7 98 10/03 1550 36.6 57 18 110/69 82.4 98 Room air 10/03 1142 36.4 55 18 110/63 78.8 97 Room air 10/03 1000 Nasal 4.530355 cannula 24 hour I O ending at [...] MG 0900,1300,1700 PO Sodium Chloride 1,000 ML .L36K12S IV Pantoprazole 40 MG BID@0600,1800 PO Megestrol [...] expansionAbdomen: softGenitourinary: no foleyExtremities: no edemaMusculoskeletal: normal inspectionNeuro/DIRECTOR OF SOLUTIONS ARCHITECTURE: altered mental statusSkin: dry ResultsFindings/Data:Laboratory Tests 10/03 [...] (Auto) (14.0 - 32.0 %) 29.3 30.3 Newton % (Auto) (4.8 - 9.0 %) 19.0 H 14.0 H Eos % (Auto) (0.3 - 3.7 %) 1.8 2.5 Baso % (Auto) (0.0 - 2.0 %) 0.4 0.4 Neut # (Auto) (2.0 - 7.6 x10 3/uL) 2.74 2.73 Lymph # (Auto) (1.0 - 3.8 x10 3/uL) 1.65 1.58 Newton # (Auto) (0.1 - 0.8 x10 3/uL) [...] acid 1.2 within normal limit, urine output upudc6549 cc with Lasix. Chest x-ray still pending. [...] down, continue IV fluid. at 1306 RPT #:[id number] OF REPORTPRProgress Rhah7366-97-79H24:04:00G.TVQX98143971-1398TTXazvyrdbw for patient ubqgKSEEEAWCDNQXZG2496-14-92M77:06:43 [facility] 2019-10-05 07:53:00 GHktxnneudo572945254BC250IgE7uqG+NWhyzLr /JZQ3l/9gVKFb63T Ygk3gy4PWitr3nhDtKnvUqBgTB9845-67-18M12:53:00 [facility] Progress NoteREPORT#:[id number] REPORT STATUS: SignedDATE:10/05/19 TIME: 0753 PATIENT: MAC AGUSTIN UNIT #: [id number]#: [id number] [address]: [birth year] AGE: 74 SEX: F ATTEND: [...] 17 113/67 82.0 98 10/04 0207 Nasal 4.805396 cannula 10/04 0000 97.9 56 16 114/67 82.4 95 10/03 2105 98.6 56 16 112/69 83.7 98 10/03 1550 97.9 57 18 110/69 82.4 98 Room air 10/03 1142 97.5 55 18 110/63 78.8 97 Room air 10/03 1000 Nasal 4.452776 cannula 24 hour I O ending at [...] MG 0900,1300,1700 PO Sodium Chloride 1,000 ML .W78O20O IV Pantoprazole 40 MG BID@0600,1800 PO Megestrol [...] (bLE +1), no clubbing, no cyanosisMusculoskeletal: normal inspectionNeuro/DIRECTOR OF SOLUTIONS ARCHITECTURE: no motor deficitsSkin: no rashLymphatics: neck normalPsychiatry: [...] was found to have abnormal labs at [place], sent to ED for evaluation. In the [...] to 10.5On zosynTransfer to the floordw RN, HAM PASSER, consultantsCXR and telemetry personally reviewedFurther recs per [...] more than 35 minutes at 0806 RPT #:[id number] OF REPORTPRProgress Afqk4603-55-30W38:53:00G.OLFR63708407-2777LEKwyrvuoor for patient sxyuUEIMUBASEUIROF2339-01-11O52:06:49 [facility] 2019-10-04 13:20:00 WKngujqklbb15477354lAAELF/LjhrB+1keGi04Y 7povw5h/o5cPSzoQ4 67wbLZU/zit1DWYp/zndOfzVuY1635-56-86O77:20:[address] [facility])Gastroenterology Progress NoteREPORT#:[id number] REPORT STATUS: SignedDATE:10/04/19 TIME: 1320 PATIENT: MAC AGUSTIN UNIT #: [id number]#: [id number] [address]: [birth year] AGE: 74 SEX: F ATTEND: [facility] AUTHOR: Arian Anderson * ALL edits or [...] Resp 18 10/03 1142 O2 Flow Rate 4.888118 10/02 2014 24 hour I O ending [...] MG 0900,1300,1700 PO Sodium Chloride 1,000 ML .Q95Y44P IV Pantoprazole 40 MG BID@0600,1800 PO Megestrol Acetate 800 MG DAILY PO Zinc Oxide 1 APPLIC BID TOPICAL Lidocaine 1 EA Q24H TOPICAL Insulin Human Lispro 0 AC HS SUBQ Morphine Sulfate 2 MG Q4H PRN PRN IV (DC) Acetaminophen 650 MG Q4H PRN PRN PO Heparin Sodium 5,000 UNIT Q12HR SUBQ Physical ExamGeneral appearance: awake, no acute distressHEENT: moist mucosal membranesCardiovascular: normal S1/T3Rxauoknkmsn: clear to auscultationAbdomen: non-tender, normal bowel sounds, [...] % (Auto) (14.0 - 32.0 %) 29.3 Newton % (Auto) (4.8 - 9.0 %) 19.0 H Eos % (Auto) (0.3 - 3.7 %) 1.8 Baso % (Auto) (0.0 - 2.0 %) 0.4 Neut # (Auto) (2.0 - 7.6 x10 3/uL) 2.74 Lymph # (Auto) (1.0 - 3.8 x10 3/uL) 1.65 Newton # (Auto) (0.1 - 0.8 x10 3/uL) [...] agreeable.- Discharge per primary at 1321 RPT #:[id number] OF REPORTPRProgress Bunu6249-08-80H71:20:00G.YPRJ97093741-5430ZAGsaogjrha for patient nkphBMMMRUBCIDNBVS2778-06-37C09:22:01 [facility] 2019-10-04 13:20:00 ZVjivnuqlym95154306dHTF6DVWWcKijb1LylJ00 L7HjsOk9EUZ/ZK4qP dkP2g4CTZwEvA1f3A40pRn0Reb5840-81-34X17:20:00 [facility] Progress NoteREPORT#:[id number] REPORT STATUS: SignedDATE:10/04/19 TIME: 1320 PATIENT: MAC AGUSTIN UNIT #: [id number]#: [id number] [address] [birth year] AGE: 74 SEX: F ATTEND: [facility] AUTHOR: Arian Anderson * ALL edits or [...] Resp 18 10/03 1142 O2 Flow Rate 4.683959 10/02 2014 24 hour I O ending [...] MG 0900,1300,1700 PO Sodium Chloride 1,000 ML .F34Z90G IV Pantoprazole 40 MG BID@0600,1800 PO Megestrol Acetate 800 MG DAILY PO Zinc Oxide 1 APPLIC BID TOPICAL Lidocaine 1 EA Q24H TOPICAL Insulin Human Lispro 0 AC HS SUBQ Morphine Sulfate 2 MG Q4H PRN PRN IV (DC) Acetaminophen 650 MG Q4H PRN PRN PO Heparin Sodium 5,000 UNIT Q12HR SUBQ Physical ExamGeneral appearance: awake, no acute distressHEENT: moist mucosal membranesCardiovascular: normal S1/N1Mvtzbivfwkp: clear to auscultationAbdomen: non-tender, normal bowel sounds, [...] % (Auto) (14.0 - 32.0 %) 29.3 Newton % (Auto) (4.8 - 9.0 %) 19.0 H Eos % (Auto) (0.3 - 3.7 %) 1.8 Baso % (Auto) (0.0 - 2.0 %) 0.4 Neut # (Auto) (2.0 - 7.6 x10 3/uL) 2.74 Lymph # (Auto) (1.0 - 3.8 x10 3/uL) 1.65 Newton # (Auto) (0.1 - 0.8 x10 3/uL) [...] the findings and plan as documented by HAM PASSER. at 1321 RPT #:[id number] OF REPORTPRProgress Yvqj0724-96-29S84:20:00G.ELSU04244173-7458HNLmftsfdqi for patient obehPVOYVNDRYEQQRT5429-85-83N67:01:57 [facility] 2019-10-04 13:20:00 EHbeolvpmvr14929648p8TQp0dpeQRRzHAVItvUz jlHnWnmpOckj2h7q3 UujsUeSt3h/D8lnISVSObPCAzW9106-06-28Q62:20:00 [facility] Progress NoteREPORT#:[id number] REPORT STATUS: SignedDATE:10/04/19 TIME: 1320 PATIENT: MAC AGUSTIN UNIT #: [id number]#: [id number] [facility]OM[facility]BED: [facility]DOB: [birth year] AGE: 74 SEX: F [facility] AUTHOR: Arian Anderson * ALL edits or [...] Resp 18 10/03 1142 O2 Flow Rate 4.841401 10/02 2014 24 hour I O ending [...] MG 0900,1300,1700 PO Sodium Chloride 1,000 ML .T80J01O IV Pantoprazole 40 MG BID@0600,1800 PO Megestrol Acetate 800 MG DAILY PO Zinc Oxide 1 APPLIC BID TOPICAL Lidocaine 1 EA Q24H TOPICAL Insulin Human Lispro 0 AC HS SUBQ Morphine Sulfate 2 MG Q4H PRN PRN IV (DC) Acetaminophen 650 MG Q4H PRN PRN PO Heparin Sodium 5,000 UNIT Q12HR SUBQ Physical ExamGeneral appearance: awake, no acute distressHEENT: moist mucosal membranesCardiovascular: normal S1/B8Hmimscgjsoy: clear to auscultationAbdomen: non-tender, normal bowel sounds, [...] % (Auto) (14.0 - 32.0 %) 29.3 Newton % (Auto) (4.8 - 9.0 %) 19.0 H Eos % (Auto) (0.3 - 3.7 %) 1.8 Baso % (Auto) (0.0 - 2.0 %) 0.4 Neut # (Auto) (2.0 - 7.6 x10 3/uL) 2.74 Lymph # (Auto) (1.0 - 3.8 x10 3/uL) 1.65 Newton # (Auto) (0.1 - 0.8 x10 3/uL) [...] the findings and plan as documented by HAM PASSER. at 1321 at 0914 RPT #:[id number] OF REPORTPRProgress Hpwl5598-43-54E92:20:00G.LDAQ08310957-9538RFUtoxblwbi for patient skyrJZRNWUXZMOGXGQ1892-40-28B39:14:54 [facility] 2019-10-04 08:17:00 QIghfakvmou64171054loYI7apTfgaorv2q4kgu4 CpdGHxASZpyiiZiZU 4YH/4TzAMACzimu1Al2HbiKYL77372-86-56H57:17:00 [facility]ospital[facility] Progress NoteREPORT#:[id number] REPORT STATUS: SignedDATE:10/04/19 TIME: 816 PATIENT: MAC AGUSTIN UNIT #: [id number]#: [id number] [address] [birth year] AGE: 74 SEX: F ATTEND: [...] 18 114/76 88.3 100 10/02 2015 Nasal 4.353675 cannula 10/02 1913 97.3 57 18 117/71 [...] MG 0900,1300,1700 PO Sodium Chloride 1,000 ML .P40I42F IV Magnesium Sulfate/Dextrose 100 ML ONCE ONE [...] (bLE +1), no clubbing, no cyanosisMusculoskeletal: normal inspectionNeuro/DIRECTOR OF SOLUTIONS ARCHITECTURE: no motor deficitsSkin: no rashPsychiatry: normal affect [...] % (Auto) (14.0 - 32.0 %) 29.3 Newton % (Auto) (4.8 - 9.0 %) 19.0 H Eos % (Auto) (0.3 - 3.7 %) 1.8 Baso % (Auto) (0.0 - 2.0 %) 0.4 Neut # (Auto) (2.0 - 7.6 x10 3/uL) 2.74 Lymph # (Auto) (1.0 - 3.8 x10 3/uL) 1.65 Newton # (Auto) (0.1 - 0.8 x10 3/uL) [...] was found to have abnormal labs at AL, sent to ED for evaluation. In the [...] to 10.5On zosynTransfer to the floordw RN, HAM PASSER, consultantsCXR and telemetry personally reviewedFurther recs per [...] was more than 35 minutes at 0753 RPT #:[id number] OF REPORTPRProgress Zoiu3867-10-42P48:17:00G.EVBH79599540-1633OCHpkdfxvcn for patient auvtISYZJKCOORFNHD4843-82-52I19:53:48 [facility] 2019-10-04 06:42:00 EBohyqoesdi29400103KMX2Pz8TDvAeIeNasx0Ku M8FmXEctALCS15yfZ 0bIJfEvDyLsbGBXrJV8RNry5zY7845-89-31A39:42:00 [facility] Progress NoteREPORT#:[id number] REPORT STATUS: SignedDATE:10/04/19 TIME: 641 PATIENT: MAC AGUSTIN UNIT #: [id number]#: [id number] [address] [birth year] AGE: 74 SEX: F ATTEND: [facility] AUTHOR: Rabia Aguilar MD * ALL edits [...] 18 114/76 88.3 100 10/02 2014 Nasal 4.593982 cannula 10/02 1913 36.3 57 18 117/71 86.5 100 10/02 1101 36.8 65 17 106/68 81.0 99 10/02 0735 Nasal 4.606041 cannula 24 hour I O ending at 0700: 10/03 0700 10/02 1900 Intake Total 30 75 Output Total Balance 30 75 Intake, Oral 30 Intake, Oral 0 75 Supplement Number 5 Incontinent Voids MedicationsActive Meds + DC'd Last 24 HrsMidodrine 5 MG 0900,1300,1700 PO Sodium Chloride 1,000 ML .[id number] IV Magnesium Sulfate/Dextrose 100 ML ONCE ONE [...] expansionAbdomen: softGenitourinary: no foleyExtremities: no edemaMusculoskeletal: normal inspectionNeuro/DIRECTOR OF SOLUTIONS ARCHITECTURE: altered mental statusSkin: dry ResultsFindings/Data:Laboratory Tests 10/02 [...] (14.0 - 32.0 %) 30.3 33.1 H Newton % (Auto) (4.8 - 9.0 %) 14.0 H 8.1 Eos % (Auto) (0.3 - 3.7 %) 2.5 1.7 Baso % (Auto) (0.0 - 2.0 %) 0.4 0.2 Neut # (Auto) (2.0 - 7.6 x10 3/uL) 2.73 3.33 Lymph # (Auto) (1.0 - 3.8 x10 3/uL) 1.58 1.95 Newton # (Auto) (0.1 - 0.8 x10 3/uL) [...] 010 Giardia Antigen (ANA) - COMP STOOL Diagnosis, [...] acid 1.2 within normal limit, urine output pbarn2722 cc with Lasix. Chest x-ray still pending. [...] 3.0 stable sinceyesterday, continue IVF at 1053 [facility] #:[id number] OF REPORTPRProgress Jvne2113-12-46V17:42:00G.WQAJ81638530-8186WTGqspvkcvn for patient ipjcZEKTJUZGYSOEND6041-93-38Z12:53:51 [facility] 2019-10-03 11:39:00 PJosukmffmw55552434azldVuCFJsFqKyT17uBwl A2nAhRibcSkvAb58s AOBN58VeqQT1Gl0gFQzA2CHnA79518-46-48R83:39:00 [facility] Progress NoteREPORT#:[id number] REPORT STATUS: SignedDATE:10/03/19 TIME: 1139 PATIENT: MAC AGUSTIN UNIT #: [id number]#: [id number] ROOM/BED: [facility]DOB: [birth year] AGE: 74 SEX: F ATTEND: [facility] AUTHOR: Arian Anderson * ALL edits or [...] Nasal cannula 10/02 0735 O2 Flow Rate 4.864166 10/02 0735 24 hour I O ending [...] no acute distressHEENT: moist mucosal membranesCardiovascular: normal S1/R6Gvxmervaphc: clear to auscultationAbdomen: non-tender, normal bowel sounds, soft, no distentionExtremities: edemaMusculoskeletal: normal inspectionSkin: dry ResultsFindings/Data:Laboratory Tests 10/03/19 0520:[Embedded Image Not Available]Laboratory Tests 10/02 0520 0520 1949 1558Chemistry Sodium (134 - [...] 100 PG/ML) 109.1 H Laboratory Tests 10/02 0420 Hematology WBC (4.5 - 11.0 x10 [...] % (Auto) (14.0 - 32.0 %) 30.3 Newton % (Auto) (4.8 - 9.0 %) 14.0 H Eos % (Auto) (0.3 - 3.7 %) 2.5 Baso % (Auto) (0.0 - 2.0 %) 0.4 Neut # (Auto) (2.0 - 7.6 x10 3/uL) 2.73 Lymph # (Auto) (1.0 - 3.8 x10 3/uL) 1.58 Newton # (Auto) (0.1 - 0.8 x10 3/uL) [...] and family is agreeable. at 1141 RPT #:[id number] OF REPORTPRProgress Egtp5015-11-77K71:39:00G.OZZJ13389315-6569VOKpglwayej for patient rreeTWGZDZUICBBESY7409-83-83Q06:41:59 [facility] 2019-10-03 11:39:00 MIeydfqxdkq94104430+DhT9+mSELUXy6ol5IvDM KgfE69fcSOqnEuatX taRHnht/PSAXsVSuFDgkVa2Qg00396-12-64W65:39:[address] [facility])Gastroenterology Progress NoteREPORT#:[id number] REPORT STATUS: SignedDATE:10/03/19 TIME: 1139 PATIENT: MAC AGUSTIN UNIT #: [id number]#: [id number] [address] [birth year] AGE: 74 SEX: F ATTEND: [...] Nasal cannula 10/02 0735 O2 Flow Rate 4.953007 10/02 0735 24 hour I O ending [...] no acute distressHEENT: moist mucosal membranesCardiovascular: normal S1/A1Trbcuknlrcx: clear to auscultationAbdomen: non-tender, normal bowel sounds, [...] % (Auto) (14.0 - 32.0 %) 30.3 Newton % (Auto) (4.8 - 9.0 %) 14.0 H Eos % (Auto) (0.3 - 3.7 %) 2.5 Baso % (Auto) (0.0 - 2.0 %) 0.4 Neut # (Auto) (2.0 - 7.6 x10 3/uL) 2.73 Lymph # (Auto) (1.0 - 3.8 x10 3/uL) 1.58 Newton # (Auto) (0.1 - 0.8 x10 3/uL) [...] the findings and plan as documented by HAM PASSER. at 1141 RPT #:[id number] OF REPORTPRProgress Sfmc5195-23-26I36:39:00G.CXKP60040529-1076ZGCksjzwybz for patient ownbLKGDHEGFUBUAUX0470-14-66Y59:01:46 [facility] 2019-10-03 11:39:00 DTukrmhyzsc1180259557NZlc9lFXpS7UNPGKNsA dkjIVGWRDZOnDvrkE +PBDKvJwLC7aNp5lbRcSHBnz1K7948-47-83P18:39:00 [facility] ([facility])Gastroenterology Progress NoteREPORT#:[id number] REPORT STATUS: SignedDATE:10/03/19 TIME: 1139 PATIENT: MAC AGUSTIN UNIT #: [id number]#: [id number] ROOM/BED: 5526-1DOB: [birth year] AGE: 74 SEX: F ATTEND: Joel Myers [facility] AUTHOR: Arian Anderson * ALL edits or amendments must be made on the electronic/computer document * Arian AndersonJamarcus 10/03/19 1139:SubjectiveChief Complaint:weakHPI:Not eating much. No evidence of GI bleeding. Review of SystemsUnable to obtain due to:dementia Objective GeneralVS/I O:Last Documented: Result Date Time Pulse Ox 99 10/02 1101 B/P 106/68 10/02 1101 B/P Mean 81.0 10/02 1101 Temp 36.8 10/02 1101 Pulse 65 10/02 1101 Resp 17 10/02 1101 O2 Delivery Nasal cannula 10/02 734 O2 Flow Rate 4.385701 10/02 0735 24 hour I O ending [...] no acute distressHEENT: moist mucosal membranesCardiovascular: normal S1/L8Jenkoweerjx: clear to auscultationAbdomen: non-tender, normal bowel sounds, soft, no distentionExtremities: edemaMusculoskeletal: normal inspectionSkin: dry ResultsFindings/Data:Laboratory Tests 10/03/19 05:[Embedded Image Not Available]Laboratory Tests 10/02 10/02 10/02 10/01 10/01 0826 0520 0520 1942 1558Chemistry Sodium (134 - 147 mEq/L) 137 [...] % (Auto) (14.0 - 32.0 %) 30.3 Newton % (Auto) (4.8 - 9.0 %) 14.0 H Eos % (Auto) (0.3 - 3.7 %) 2.5 Baso % (Auto) (0.0 - 2.0 %) 0.4 Neut # (Auto) (2.0 - 7.6 x10 3/uL) 2.73 Lymph # (Auto) (1.0 - 3.8 x10 3/uL) 1.58 Newton # (Auto) (0.1 - 0.8 x10 3/uL) [...] the findings and plan as documented by HAM PASSER. at 1141 at 6414 RPT #:[id number] OF REPORTPRProgress Yabb3287-32-82S17:39:00G.LQFX16230925-5253MOGwcdfstim for patient wvfhLSXPFGAKHXWJZJ9919-61-30T65:14:43 [facility] 2019-10-03 11:36:00 THyeqfszyif38886918VD8HOeFJUCn9PJ0AGo68o 9PcSAXDxH0FVYVqKg +L7ksz5O8QnwpY4bQwbard/efR3575-14-59R95:36:00 [facility] ([facility])Rehab Progress NoteREPORT#:[id number] REPORT STATUS: SignedDATE:10/03/19 TIME: 1136 PATIENT: MAC AGUSTIN UNIT #: [id number]#: [id number] [address] [birth year] AGE: 74 SEX: F ATTEND: Joel Myers [facility] AUTHOR: Lucy Ayon PA-C * ALL edits or amendments must be made on the electronic/computer document * SubjectiveChief complaint:Pt seen in bed. No complaints. States tired this a.m. + dmentia. Poor historian. Objective GeneralVS:Vital Signs: Date Time Temp Pulse Resp B/P B/P Pulse O2 O2 Flow FiO2 Mean Ox Delivery Rate 10/02 1101 98.2 65 17 106/68 81.0 99 10/02 0735 Nasal 4.725883 cannula 10/02 0442 98.2 66 17 93/59 [...] clearNeck: supple, no JVDCardiovascular: regular rate rhythm, S1/C8Vmsjvjzbjuq: aerating well, clear bilaterallyAbdomen: bowel sounds present, non-distended, soft, soft, non-tenderSkin: dry, intactMusculoskeletal - general: Musculoskeletal - general: joints normal, range of motion normal, no swellingNeuro/DIRECTOR OF SOLUTIONS ARCHITECTURE: altered mental status, alert, no motor deficits, [...] 10/02 10/02 10/01 10/01 0826 0520 0520 1948 1558Chemistry Sodium (134 - 147 mEq/L) 137 [...] % (Auto) (14.0 - 32.0 %) 30.3 Newton % (Auto) (4.8 - 9.0 %) 14.0 H Eos % (Auto) (0.3 - 3.7 %) 2.5 Baso % (Auto) (0.0 - 2.0 %) 0.4 Neut # (Auto) (2.0 - 7.6 x10 3/uL) 2.73 Lymph # (Auto) (1.0 - 3.8 x10 3/uL) 1.58 Newton # (Auto) (0.1 - 0.8 x10 3/uL) [...] dementia she would benefit from returning to residential facility following [facility]. I discussed with the patient's fjhykhvy-rg-mig who is on the chart as 1 of the contacts and she states their wish is for her to return to [facility] once medically cleared. 10/01: Encourage particpation [...] plan discussed with patient. at 1142 RPT #:[id number] OF REPORTPRProgress Xews6120-07-28E63:36:00G.VZPT86062785-5527YIJdqholynw for patient kelhDKXAAJWTEFLMJG1203-33-22J59:42:40 [facility] 2019-10-03 08:43:00 VTjzyevjbmd89611724C38Va2PJIn4Anm6vIwKjM tG9jhS+yAXm/pqpvb Dtk3L66H7jJlcwQnvSeuoZYUr42903-70-45S53:43:00 [facility] ([facility])Hospitalist Progress NoteREPORT#:[id number] REPORT STATUS: SignedDATE:10/03/19 TIME: 0843 PATIENT: MAC AGUSTIN UNIT #: [id number]#: [id number] [address] [birth year] AGE: 74 SEX: F ATTEND: Joel Myers [facility] AUTHOR: Joel Myers MD * ALL edits or amendments must be made on the electronic/computer document * SubjectiveChief Complaint:follow up for NATHEN/CKD, HTN. no change. denies pain. Review of SystemsAdditional notes:12 point ROS negative except for mentioned in HPI. Objective GeneralVS/I O:Vital Signs: Date Time Temp Pulse Resp B/P B/P Pulse O2 O2 Flow FiO2 Mean Ox Delivery Rate 10/02 0735 Nasal 4.888806 cannula 10/02 0442 98.2 66 17 93/59 [...] (bLE +1), no clubbing, no cyanosisMusculoskeletal: normal inspectionNeuro/DIRECTOR OF SOLUTIONS ARCHITECTURE: no motor deficitsSkin: no rashPsychiatry: normal affect ResultsFindings/Data:Laboratory Tests 10/02 10/01 10/01 10/01 05 1949 1558 1120 Chemistry Sodium (134 - [...] % (Auto) (14.0 - 32.0 %) 30.3 Newton % (Auto) (4.8 - 9.0 %) 14.0 H Eos % (Auto) (0.3 - 3.7 %) 2.5 Baso % (Auto) (0.0 - 2.0 %) 0.4 Neut # (Auto) (2.0 - 7.6 x10 3/uL) 2.73 Lymph # (Auto) (1.0 - 3.8 x10 3/uL) 1.58 Newton # (Auto) (0.1 - 0.8 x10 3/uL) [...] was found to have abnormal labs at [place], sent to ED for evaluation. In the [...] to 10.5On zosynTransfer to the floordw RN, HAM PASSER, consultantsCXR and telemetry personally reviewedFurther recs per [...] more than 35 minutes at 0846 RPT #:[id number] OF REPORTPRProgress Jwrp8603-48-95Z44:43:00G.PYNY21011755-4728XVMgkmvseaw for patient qkcqNVSGYIQWDCJYRV7274-54-49J69:46:44 [facility] 2019-10-03 07:25:00 VKzosqztloj66693524WxranDL9Jco4sycQnLPe8 j0+Dabjg5yInFw3T6 6DQXAoYL39X3btuwDfqO9YtKO72670-20-64Q04:25:00 [facility] ([facility])Nephrology Progress NoteREPORT#:[id number] REPORT STATUS: SignedDATE:10/03/19 TIME: 724 PATIENT: MAC AGUSTIN UNIT #: [id number]#: [id number] [address] [birth year] AGE: 74 SEX: F ATTEND: [...] 72.4 95 Nasal cannula 10/01 0840 Nasal 4.454021 cannula 10/01 0745 36.4 79 17 111/68 [...] expansionAbdomen: softGenitourinary: no foleyExtremities: no edemaMusculoskeletal: normal inspectionNeuro/DIRECTOR OF SOLUTIONS ARCHITECTURE: altered mental statusSkin: dry ResultsFindings/Data:Laboratory Tests 10/02 [...] 32.0 %) 30.3 33.1 H 10.0 L Newton % (Auto) (4.8 - 9.0 %) 14.0 H 8.1 5.7 Eos % (Auto) (0.3 - 3.7 %) 2.5 1.7 0.7 Baso % (Auto) (0.0 - 2.0 %) 0.4 0.2 0.2 Neut # (Auto) (2.0 - 7.6 x10 3/uL) 2.73 3.33 8.01 H Lymph # (Auto) (1.0 - 3.8 x10 3/uL) 1.58 1.95 0.97 L Newton # (Auto) (0.1 - 0.8 x10 3/uL) [...] (1.8 - 2.4 mg/dL) 1.70 L 09/30 1617 1145 0752 0400 Chemistry Sodium (134 [...] - 5.0 g/dL) 1.90 L Laboratory Tests 04/20 0819 Coagulation INR (0.8 - 1.2) 1.3 [...] - 32.0 %) 33.1 H 10.0 L Newton % (Auto) (4.8 - 9.0 %) 8.1 5.7 Eos % (Auto) (0.3 - 3.7 %) 1.7 0.7 Baso % (Auto) (0.0 - 2.0 %) 0.2 0.2 Neut # (Auto) (2.0 - 7.6 x10 3/uL) 3.33 8.01 H Lymph # (Auto) (1.0 - 3.8 x10 3/uL) 1.95 0.97 L Newton # (Auto) (0.1 - 0.8 x10 3/uL) [...] acid 1.2 within normal limit, urine output tdshy8257 cc with Lasix. Chest x-ray still pending. [...] 75 cc per h at 1155 RPT #:[id number] OF REPORTPRProgress Ronb2655-24-43J38:25:00G.DPFQ91979138-6937RCRrtzhkfpy for patient cdvyCNCEXBLQJJCQSM2537-66-23V75:55:42 [facility] 2019-10-02 13:38:00 IOzeqbfaedz40277983hDoTcQtI5EroKke+/Wi/s oiXyQYWSusiLKPczY 0+RFT1cGEf1jSUYkhGwcBScTmO4709-45-59H03:38:00 [facility] Progress NoteREPORT#:[id number] REPORT STATUS: SignedDATE:10/02/19 TIME: 1338 PATIENT: MAC AGUSTIN UNIT #: [id number]#: [id number] [address] [birth year] AGE: 74 SEX: F ATTEND: [...] 101/58 10/01 1123 B/P Mean 72.4 10/01 112 O2 Delivery Nasal cannula 10/01 1122 Temp 36.6 10/01 1123 Pulse 68 10/01 1123 Resp 17 10/01 1123 O2 Flow Rate 2.434509 09/30 1930 24 hour I O ending [...] no acute distressHEENT: moist mucosal membranesCardiovascular: normal S1/N1Fglwivcydyq: clear to auscultationAbdomen: non-tender, normal bowel sounds, [...] (Auto) (14.0 - 32.0 %) 33.1 H Newton % (Auto) (4.8 - 9.0 %) 8.1 Eos % (Auto) (0.3 - 3.7 %) 1.7 Baso % (Auto) (0.0 - 2.0 %) 0.2 Neut # (Auto) (2.0 - 7.6 x10 3/uL) 3.33 Lymph # (Auto) (1.0 - 3.8 x10 3/uL) 1.95 Newton # (Auto) (0.1 - 0.8 x10 3/uL) [...] evidence of active bleeding at 1409 RPT #:[id number] OF REPORTPRProgress Wnpk8567-02-56O55:38:00G.MOPZ43051463-0936OWRedvvnluy for patient obrsLGZTYJNTVYYMWU7347-66-28X42:09:50 [facility] 2019-10-02 13:38:00 ZFshpbczzsn19632547ZUHoSEQESWUAwe4lnC6I+ hkDKYLYw9cx/mEKjt PPSMjp02K18Z7Xy5LPf3/66yT/0777-11-12B75:38:[address] [facility])Gastroenterology Progress NoteREPORT#:[id number] REPORT STATUS: SignedDATE:10/02/19 TIME: 8 PATIENT: MAC AGUSTIN UNIT #: [id number]#: [id number] [address]OB: [birth year] AGE: 74 SEX: F ATTEND: Joel Myers [facility] AUTHOR: Arian Anderson [employer] * ALL edits or amendments must be [...] Resp 17 10/01 1123 O2 Flow Rate 2.349004 09/30 1930 24 hour I O ending [...] no acute distressHEENT: moist mucosal membranesCardiovascular: normal S1/W2Ndtncrpupjz: clear to auscultationAbdomen: non-tender, normal bowel sounds, soft, no distentionExtremities: edemaMusculoskeletal: normal inspectionSkin: dry ResultsFindings/Data:Laboratory Tests 10/02/1918:[Embedded Image Not Available]Laboratory Tests 10/01 10/01 10/01 [...] 2.4 mg/dL) 1.70 L Laboratory Tests 10/01 0518 Hematology WBC (4.5 - 11.0 x10 3/uL) [...] (Auto) (14.0 - 32.0 %) 33.1 H Newton % (Auto) (4.8 - 9.0 %) 8.1 Eos % (Auto) (0.3 - 3.7 %) 1.7 Baso % (Auto) (0.0 - 2.0 %) 0.2 Neut # (Auto) (2.0 - 7.6 x10 3/uL) 3.33 Lymph # (Auto) (1.0 - 3.8 x10 3/uL) 1.95 Newton # (Auto) (0.1 - 0.8 x10 3/uL) [...] no evidence of active bleeding Coleman Sr VJamarcus 11/07/19 0901:Attestations Physician AttestationAgree w/findings plan:Patient seen and examined. Agree with the findings and plan as documented by HAM PASSER. at 1409 RPT #:[id number] OF REPORTPRProgress Xudl6471-49-48A21:38:00G.HICF86799106-9072BEJvsgzzsay for patient hzcrGEVFMISSOYYPHQ4452-04-80X01:01:37 [facility] 2019-10-02 13:38:00 AGmvqaboqnn10020121SU9yOkVCE1/6M4NFK5Xad ueWFqITXqBqIitef1 P6QYABYwaW1N0BkN+qkCK/sygg9437-76-31Z28:38:[address] [facility])Gastroenterology Progress NoteREPORT#:[id number] REPORT STATUS: SignedDATE:10/02/19 TIME: 1337 PATIENT: MAC AGUSTIN UNIT #: [id number]#: [id number] [address]: [birth year] AGE: 74 SEX: F ATTEND: Joel Myers [facility] AUTHOR: Arian Anderson * ALL edits or [...] Resp 17 10/01 1123 O2 Flow Rate 2.410833 09/30 1930 24 hour I O ending [...] no acute distressHEENT: moist mucosal membranesCardiovascular: normal S1/C2Mnksvjameow: clear to auscultationAbdomen: non-tender, normal bowel sounds, [...] (Auto) (14.0 - 32.0 %) 33.1 H Newton % (Auto) (4.8 - 9.0 %) 8.1 Eos % (Auto) (0.3 - 3.7 %) 1.7 Baso % (Auto) (0.0 - 2.0 %) 0.2 Neut # (Auto) (2.0 - 7.6 x10 3/uL) 3.33 Lymph # (Auto) (1.0 - 3.8 x10 3/uL) 1.95 Newton # (Auto) (0.1 - 0.8 x10 3/uL) [...] the findings and plan as documented by HAM PASSER. at 1409 at 0914 RPT #:[id number] OF REPORTPRProgress Thhp2562-31-47V66:38:00G.DEXQ22507948-8812EVLjoohnxtc for patient xnyhBIZORAKRZQDWHO6240-07-36O87:14:31 [facility] 2019-10-02 09:54:00 FLoqdpbdunt206533028JXoYANrws9vlHwCswtgp kdOqkQ83WFwHBE3ko D4q//g/0CNcrZRC/UrdXun3yxB1245-19-81I31:54:00 [facility] ([facility])Rehab Progress NoteREPORT#:[id number] REPORT STATUS: SignedDATE:10/02/19 TIME: 0954 PATIENT: MAC AGUSTIN UNIT #: [id number]#: [id number] [address]: [birth year] AGE: 74 SEX: F ATTEND: Joel Myers [facility] AUTHOR: Lucy Ayon PA-C * ALL edits [...] 18 103/67 79.0 99 09/30 1930 Nasal 2.774202 cannula 09/30 1919 97.7 76 18 94/62 [...] clearNeck: supple, no JVDCardiovascular: regular rate rhythm, S1/R9Aubafamhaep: aerating well, clear bilaterallyAbdomen: bowel sounds present, non-distended, soft, soft, non-tenderSkin: dry, intactMusculoskeletal - general: Musculoskeletal - general: joints normal, range of motion normal, no swellingNeuro/DIRECTOR OF SOLUTIONS ARCHITECTURE: altered mental status, alert, no motor deficits, no sensory deficits Functional ProgressFunctional progress: Patient/Family Goals: TO GET STRONGER. Rehabilitation Potential: Good for goals Discharge Plan: POST ACUTE THERAPY Plan of Care, Type: Physical Therapy Treatment Details: Y Comment: HIGH COMPLEX PT EVAL DUE TO MUL. COMORBIDITIES AND FUNCTIONAL PERFORMANCE DEFICITS. PATIENT WILL BENEFIT WITH ACUTE REGISTERED NURSE PRACTITIONER SERVICES TO ADDRESS MOBILITY LIMITATIONS. If this [...] (Auto) (14.0 - 32.0 %) 33.1 H Newton % (Auto) (4.8 - 9.0 %) 8.1 Eos % (Auto) (0.3 - 3.7 %) 1.7 Baso % (Auto) (0.0 - 2.0 %) 0.2 Neut # (Auto) (2.0 - 7.6 x10 3/uL) 3.33 Lymph # (Auto) (1.0 - 3.8 x10 3/uL) 1.95 Newton # (Auto) (0.1 - 0.8 x10 3/uL) [...] acidosis with multiple electrolyte abnormalities including hypokalemia, hypo-Center anemia, hypocalcemia, hypoalbuminemia. Patient then developed acute pulmonary vascular congestion is being diuresed. Plan: Physical therapy, Occupational Therapy and speech therapy have been consulted. Due to patient being an unreliable historian and moderate dementia she would benefit from returning to residential facility following her [facility] stay. I discussed with the patient's vnemotaj-hs-byz who is on the chart as 1 of the contacts and she states their wish is for her to return to [facility] once medically cleared. 10/01: Encourage particpation with therpay.C. Diff not collected. Pt hgb stable.SNF once ready to be discharged. Rehab attestation:Face to face exam completed. Treatment plan discussed with patient. at 1011 RPT #:[id number] OF REPORTPRProgress Teyu5054-92-61S55:54:00G.VVIE63162312-9561WFLadehbyjc for patient odlaMIRBFQJCZNIWCX4391-23-82K90:12:25 [facility] 2019-10-02 07:20:00 IWvrsqjuwpc789261039an+6Pcb5w/KfC/bTBcNf fXFxr7KqdTVB4KImy GPlLX68CZSSEPKuSqBEGQ8hJ6g1518-78-28P19:20:00 [facility] Progress NoteREPORT#:[id number] REPORT STATUS: SignedDATE:10/02/19 TIME: 719 PATIENT: MAC AGUSTIN UNIT #: [id number]#: [id number] [address] [birth year] AGE: 74 SEX: F ATTEND: [...] 18 103/67 79.0 99 09/30 1930 Nasal 2.669858 cannula 09/30 1919 36.5 76 18 94/62 73.1 97 09/30 1525 36.7 72 18 109/70 82.9 97 09/30 1146 36.5 69 18 107/71 83.0 97 09/30 0753 36.4 66 18 101/67 78.3 95 09/30 0730 Nasal 2.445224 cannula 24 hour I O ending at [...] expansionAbdomen: softGenitourinary: ballard, urineExtremities: no edemaMusculoskeletal: normal inspectionNeuro/DIRECTOR OF SOLUTIONS ARCHITECTURE: altered mental statusSkin: dry ResultsFindings/Data:Laboratory Tests 09/30 [...] - 32.0 %) 10.0 L 12.7 L Newton % (Auto) (4.8 - 9.0 %) 5.7 5.2 Eos % (Auto) (0.3 - 3.7 %) 0.7 0.5 Baso % (Auto) (0.0 - 2.0 %) 0.2 0.1 Neut # (Auto) (2.0 - 7.6 x10 3/uL) 8.01 H 8.57 H Lymph # (Auto) (1.0 - 3.8 x10 3/uL) 0.97 L 1.34 Newton # (Auto) (0.1 - 0.8 x10 3/uL) [...] acid 1.2 within normal limit, urine output xxhdq4567 cc with Lasix. Chest x-ray still pending. [...] check post void resdiual at 1202 RPT #:[id number] OF REPORTPRProgress Jemo0165-12-69S68:20:00G.EAYL74368786-6819QOCujoeargt for patient ylxhZSTMMDSQIVRDRL4353-76-41H93:03:00 [facility] 2019-10-02 07:20:00 VEaytsmvgip78711130/rG31eFJiU9LJYCQxICi1 zwPem33aJjyVW4hna hPVA2QvnQElK///0QKGbyY7UUa4476-22-37V07:20:00 [facility] ([facility])Nephrology Progress NoteREPORT#:[id number] REPORT STATUS: SignedDATE:10/02/19 TIME: 719 PATIENT: MAC AGUSTIN UNIT #: [id number]#: [id number] [address] [birth year] AGE: 74 SEX: F ATTEND: [...] 18 103/67 79.0 99 09/30 1930 Nasal 2.944145 cannula 09/30 1919 36.5 76 18 94/62 73.1 97 09/30 1525 36.7 72 18 109/70 82.9 97 09/30 1146 36.5 69 18 107/71 83.0 97 09/30 0753 36.4 66 18 101/67 78.3 95 09/30 0730 Nasal 2.677180 cannula 24 hour I O ending at [...] expansionAbdomen: softGenitourinary: ballard, urineExtremities: no edemaMusculoskeletal: normal inspectionNeuro/DIRECTOR OF SOLUTIONS ARCHITECTURE: altered mental statusSkin: dry ResultsFindings/Data:Laboratory Tests 04/21 04/21 04/21 04/21 04/21 1917 1617 1145 0752 0400 Chemistry Sodium [...] INR (0.8 - 1.2) 1.3 H PTT ([place]) (25.0 - 39.5 Seconds) 28.5 PT Patient/Control [...] - 32.0 %) 10.0 L 12.7 L Newton % (Auto) (4.8 - 9.0 %) 5.7 5.2 Eos % (Auto) (0.3 - 3.7 %) 0.7 0.5 Baso % (Auto) (0.0 - 2.0 %) 0.2 0.1 Neut # (Auto) (2.0 - 7.6 x10 3/uL) 8.01 H 8.57 H Lymph # (Auto) (1.0 - 3.8 x10 3/uL) 0.97 L 1.34 Newton # (Auto) (0.1 - 0.8 x10 3/uL) [...] acid 1.2 within normal limit, urine output wkmdc0835 cc with Lasix. Chest x-ray still pending. [...] 1 g IV x1. at 0849 RPT #:[id number] OF REPORTPRProgress Ijpr3946-41-50T14:20:00G.QRNI85729756-8723EBAsrnhkgax for patient liffEAMWVYAPMCFHCC1942-37-76Q41:50:05 [facility] 2019-10-02 07:09:00 PMnluedwmoh98146169FBMsUnNyr0UfCSW6OTktb XKeJYcxXO1oX4yH0y SicIwagTKeFZyjjMo4yZeUx2VZ1472-12-07C12:09:00 [facility] Progress NoteREPORT#:[id number] REPORT STATUS: SignedDATE:10/02/19 TIME: 708 PATIENT: MAC AGUSTIN UNIT #: [id number]#: [id number] ROOM/BED: 4431-1DOB: [birth year] AGE: 74 SEX: F [...] 18 103/67 79.0 99 09/30 1930 Nasal 2.983214 cannula 09/30 1919 97.7 76 18 94/62 73.1 97 09/30 1525 98.1 72 18 109/70 82.9 97 09/30 1146 97.7 69 18 107/71 83.0 97 09/30 0753 97.5 66 18 101/67 78.3 95 09/30 0730 Nasal 2.970086 cannula 24 hour I O ending at [...] (bLE +1), no clubbing, no cyanosisMusculoskeletal: normal inspectionNeuro/DIRECTOR OF SOLUTIONS ARCHITECTURE: no motor deficitsSkin: no rashPsychiatry: normal affect, [...] was found to have abnormal labs at AL, sent to ED for evaluation. In the [...] to 10.5On zosynTransfer to the floordw RN, HAM PASSER, consultantsCXR and telemetry personally reviewedFurther recs per [...] more than 35 minutes at 0711 RPT #:[id number] OF REPORTPRProgress Joll3483-14-75A28:09:00G.EDRO92352759-3225ZFItvjskkbb for patient drggHKPZUDDZYRHHCF6199-74-88L87:12:19 [facility] 2019-10-01 14:00:00 ZRahqdfsily93407324YxloaBB28nOuJkFdTog82 zbIEW9fm8Kg6nEirW MLW9B+7pZRSJOuv6kzXVKD7dun4763-01-47D01:00:00 [facility] ([facility])Gastroenterology Progress NoteREPORT#:[id number] REPORT STATUS: SignedDATE:10/01/19 TIME: 1400 PATIENT: MAC AGUSTIN UNIT #: [id number]#: [id number] [address] [birth year] AGE: 74 SEX: F ATTEND: [...] Nasal cannula 09/29 2354 O2 Flow Rate 4.358454 09/29 2354 24 hour I O ending [...] appearance: awake, orientedHEENT: moist mucosal membranesCardiovascular: normal S1/M1Kbvckeuoozd: clear to auscultationAbdomen: non-tender, normal bowel sounds, [...] (Auto) (14.0 - 32.0 %) 10.0 L Newton % (Auto) (4.8 - 9.0 %) 5.7 Eos % (Auto) (0.3 - 3.7 %) 0.7 Baso % (Auto) (0.0 - 2.0 %) 0.2 Neut # (Auto) (2.0 - 7.6 x10 3/uL) 8.01 H Lymph # (Auto) (1.0 - 3.8 x10 3/uL) 0.97 L Newton # (Auto) (0.1 - 0.8 x10 3/uL) [...] not improve- Supportive care at 1403 RPT #:[id number] OF REPORTPRProgress Elfh7815-64-55Y23:00:00G.YTEW13306146-7108ZBSzacwgjij for patient othpXOGQSVIEVXUSJE4212-61-72O03:03:35 [facility] 2019-10-01 14:00:00 COeufqyfdtw70573346us8ji4UdvfoGoRZNii8EJ FfAv5SZIdsmtKbMTq hD5C/PhB9ylXUyQ0yF1WJ4H8q85310-47-43E39:00:00 [facility] ([facility])Gastroenterology Progress NoteREPORT#:[id number] REPORT STATUS: SignedDATE:10/01/19 TIME: 1400 PATIENT: MAC AGUSTIN UNIT #: [id number]#: [id number] [address] [birth year] AGE: 74 SEX: F ATTEND: [facility] AUTHOR: Arian Anderson * ALL edits or [...] Nasal cannula 09/29 2353 O2 Flow Rate 4.251142 09/29 2354 24 hour I O ending [...] appearance: awake, orientedHEENT: moist mucosal membranesCardiovascular: normal S1/U4Uvjioeidyoe: clear to auscultationAbdomen: non-tender, normal bowel sounds, [...] (Auto) (14.0 - 32.0 %) 10.0 L Newton % (Auto) (4.8 - 9.0 %) 5.7 Eos % (Auto) (0.3 - 3.7 %) 0.7 Baso % (Auto) (0.0 - 2.0 %) 0.2 Neut # (Auto) (2.0 - 7.6 x10 3/uL) 8.01 H Lymph # (Auto) (1.0 - 3.8 x10 3/uL) 0.97 L Newton # (Auto) (0.1 - 0.8 x10 3/uL) [...] the findings and plan as documented by HAM PASSER. at 1403 RPT #:[id number] OF REPORTPRProgress Bplq2654-31-22F84:00:00G.QRFE42170057-5798WDSknwhklic for patient nlppPXVYEBPXZOKKCD3811-56-03U73:01:36 [facility] 2019-10-01 14:00:00 [id number]+VgUHjoXLwiTdLU yzr98TCQHaCbOBx8n jdqlNthZ+L472NJAvc8XUfj3ab2786-85-21E45:00:00 [facility] ([facility])Gastroenterology Progress NoteREPORT#:[id number] REPORT STATUS: SignedDATE:10/01/19 TIME: 1400 PATIENT: MAC AGUSTIN UNIT #: [id number]#: [id number] [address] [birth year] AGE: 74 SEX: F ATTEND: [facility] AUTHOR: Arian Anderson * ALL edits or [...] Delivery Nasal cannula 09/294 O2 Flow Rate 4.111683 09/29 2354 24 hour I O ending [...] appearance: awake, orientedHEENT: moist mucosal membranesCardiovascular: normal S1/E9Ifpdfsyudvk: clear to auscultationAbdomen: non-tender, normal bowel sounds, [...] (Auto) (14.0 - 32.0 %) 10.0 L Newton % (Auto) (4.8 - 9.0 %) 5.7 Eos % (Auto) (0.3 - 3.7 %) 0.7 Baso % (Auto) (0.0 - 2.0 %) 0.2 Neut # (Auto) (2.0 - 7.6 x10 3/uL) 8.01 H Lymph # (Auto) (1.0 - 3.8 x10 3/uL) 0.97 L Newton # (Auto) (0.1 - 0.8 x10 3/uL) [...] the findings and plan as documented by HAM PASSER. at 1403 at 0970 RPT #:[id number] OF REPORTPRProgress Chrj8569-74-78O78:00:00G.UOPV03146096-0816TIWsbbixhvb for patient qmdeMMORAGQVTMFRCZ7036-70-34U89:14:12 [facility] 2019-10-01 11:45:00 [id number] lkZ8weM6+Tgizko1j 1F8fX9WFCD2Voibfa4WbJEltb48420-82-45E77:45:00 [facility]Ac[facility] ConsultREPORT#:[id number] REPORT STATUS: SignedDATE:10/01/19 TIME: 1145 PATIENT: MAC AGUSTIN UNIT #: [id number]#: [id number] ROOM/BED: 4431-1DOB: [birth year] AGE: 74 SEX: F ATTEND: [facility] AUTHOR: Lucy Ayon PA-C * ALL edits or amendments must be made on the electronic/computer document * History of Present Illness HPIReason for consult: evaluation of Rehab needsRequesting clinician: Dr. Garibay:74 years old female with past medical history significant for Alzheimer's dementia, behavioral disturbance, hypertension, type 2 diabetes mellitus, migraine headaches, anxiety disorder, bowel and bladder incontinence, rheumatoidarthritis, frequent UTI was brought from [facility]. 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 Has significant Alzheimer's dementia. Ambulates with [...] Strength: 500 MG TAB Q6H PRN PRN 0959 [id number] HEADACHE Current Hospital Medications:Anti-Infective Agents Sig/Rose [...] Nasal cannula 09/29 2354 O2 Flow Rate 4.362375 09/29 2354 Patient Weight Weight (lb): 167Weight (oz): 15.88Weight (kg): 76.200 General appearance: alert, awakePsych: normal affectHEENT: anicteric, mucosal membranes moist, sclera clearNeck: supple, no JVDCardiovascular: regular rate rhythm, S1/X5Bjetppzdrhd: aerating well, clear bilaterallyAbdomen: bowel sounds present, non-distended, soft, soft, non-tenderSkin: dry, intactMusculoskeletal - general: Musculoskeletal - general: joints normal, range of motion normal, no swellingNeuro/DIRECTOR OF SOLUTIONS ARCHITECTURE: altered mental status, alert, no motor deficits, [...] (Auto) (14.0 - 32.0 %) 10.0 L Newton % (Auto) (4.8 - 9.0 %) 5.7 Eos % (Auto) (0.3 - 3.7 %) 0.7 Baso % (Auto) (0.0 - 2.0 %) 0.2 Neut # (Auto) (2.0 - 7.6 x10 3/uL) 8.01 H Lymph # (Auto) (1.0 - 3.8 x10 3/uL) 0.97 L Newton # (Auto) (0.1 - 0.8 x10 3/uL) [...] 144 STOOL: Giardia Antigen (ANA) - ORD09/29 1444 [...] or early consolidation.3. Enlarged cardiac silhouette. SL: KRFKE9UONT00Wnomsyjkjs By: [email or web address] - Scott Duran M.D.RADIOLOGY - XR ABDOMEN 1V (KUB) 09/29 0514 Report Impression - Status: SIGNED Entered: 09/30/2019 0736 IMPRESSION:Nonobstructed bowel gas pattern. SL: HEAOT4EXZB98Bomrwonzjq By: [email or web address] - Jose Dumont M.D.RADIOLOGY - XR CHEST 1 V 09/29 0514 Report Impression - Status: SIGNED Entered: 09/30/2019 0737 IMPRESSION:1. Decreasing bilateral pleural effusions with decreasing bibasilaratelectasis/infiltrates.2. Decreasing interstitial edema.3. Removal of right jugular line. SL: SMFLY0IEWH94Tprojzkupd By: [email or web address] - Jose Dumont M.D. Diagnosis, Assessment PlanProblem List/A P: [...] acidosis with multiple electrolyte abnormalities including hypokalemia, hypo-Center anemia, hypocalcemia, hypoalbuminemia. Patient then developed acute pulmonary vascular congestion is being diuresed. Plan: Physical therapy, Occupational Therapy and speech therapy have been consulted. Due to patient being an unreliable historian and moderate dementia she would benefit from returning to residential facility following her [facility]. I discussed with the patient's bryspndk-fg-kys who is on the chart as 1 of the contacts and she states their wish is for her to return to [facility] once medically cleared. Thank you for allowing us to participate in the care of this patient. We will continue to follow along and make further rehab recommendations. at [address] [facility] #:[id number] OF REPORTIYOraqdrfpzyxv7179-27-96M84:45:00G.HGZB83348016- 0494AVAvailable for patient haclUAQWLTSXMMNDXL1824-89-14E74:55:27 [facility] 2019-10-01 08:01:00 ORzldxxxhrx62739162UXJDWKEw9x8xbtazXZ21a W1sDs9e6Ria117jKW /NvmNABpagZ77+MkQgOxVIin7854-79-27V45:01:00 [facility] ([facility])Hospitalist Progress NoteREPORT#:[id number] REPORT STATUS: SignedDATE:10/01/19 TIME: 08 PATIENT: MAC AGUSTIN UNIT #: [id number]#: [id number] [address] [birth year] AGE: 74 SEX: F ATTEND: [...] 18 111/73 85.6 100 09/29 2354 Nasal 4.560786 cannula 09/29 2258 97.5 54 18 113/74 87.0 100 09/29 1948 97.5 60 18 103/66 78.6 100 09/29 1830 58 11 120/58 83 100 09/29 1800 58 11 107/61 76 100 Nasal 4.657046 cannula 09/29 1730 58 12 114/58 83 100 09/29 1700 58 11 96/50 65 100 Nasal 4.861438 cannula 09/29 1630 57 12 109/55 78 100 09/29 1600 97.5 63 19 99/55 69 100 Nasal 4.573690 cannula 09/29 1530 59 10 93/55 69 100 / 1500 60 11 93/50 64 100 Nasal 4.738941 cannula 09/29 1430 59 12 97/52 68 100 09/29 1400 60 11 112/57 75 100 Nasal 4.076321 cannula 09/29 1332 58 10 112/57 82 100 09/29 1300 60 12 99/53 68 100 Nasal 4.633155 cannula 09/29 1231 69 14 125/60 86 100 09/29 1200 97.5 59 10 98/56 70 100 Nasal 4.344066 cannula 09/29 1131 58 10 126/57 82 100 09/29 1100 56 13 126/58 80 100 Nasal 4.549716 cannula 09/29 1031 55 11 122/60 87 100 09/29 1000 60 12 121/58 79 100 Nasal 4.557357 cannula 09/29 0930 56 14 101/52 73 100 09/29 0900 57 10 107/53 71 100 Nasal 4.967563 cannula 09/29 0831 61 11 84/48 61 100 09/29 0825 100 Nasal 4.586272 cannula 24 hour I O ending at [...] distentionExtremities: edema (bLE +1), no clubbing, no cyanosisNeuro/DIRECTOR OF SOLUTIONS ARCHITECTURE: no motor deficitsSkin: no rashPsychiatry: normal affect, normal mood ResultsFindings/Data:Laboratory Tests 09/300 2019 1620 1147 0819 Chemistry Sodium (134 - [...] INR (0.8 - 1.2) 1.3 H PTT ([place]) (25.0 - 39.5 Seconds) 28.5 PT Patient/Control [...] was found to have abnormal labs at AL, sent to ED for evaluation. In the [...] SSI- replace electrolytes- heparin for DVT prophylaxsis 4/17Improved lactic acidosis with dialysis. Given improvement, likely [...] to 10.5On zosynTransfer to the floordw RN, HAM PASSER, consultantsCXR and telemetry personally reviewedFurther recs per [...] more than 35 minutes at 0807 RPT #:[id number] OF REPORTPRProgress Dwmc1696-02-51Z75:01:00G.SSCI05049676-6641FUBaisdjcxh for patient owllDHFOHJNAPCHKMH2976-29-31S14:08:19 [facility] 2019-10-01 07:00:00 PXwfhazftsj582084272KHIpAfztGK98ahc3Iabv GnboNH7zS4B/Rs2BT nVAPZRjU9fdQp6sbXryDK1kH6U0402-75-17F10:00:00 [facility] ([facility])Nephrology Progress NoteREPORT#:[id number] REPORT STATUS: SignedDATE:10/01/19 TIME: 0700 PATIENT: MAC AGUSTIN UNIT #: [id number]#: [id number] [address] [birth year] AGE: 74 SEX: F ATTEND: [facility] AUTHOR: Rabia Aguilar MD * ALL edits [...] 0437 36.6 69 18 111/73 85.6 100 09/29 2354 Nasal 4.956138 cannula 09/29 2258 36.4 54 18 113/74 87.0 100 09/29 1948 36.4 60 18 103/66 78.6 100 09/29 1830 58 11 120/58 83 100 09/29 1800 58 11 107/61 76 100 Nasal 4.351105 cannula 09/29 1730 58 12 114/58 83 100 04/ 1700 58 11 96/50 65 100 Nasal 4.933098 cannula 09/29 1630 57 12 109/55 78 100 04 1600 36.4 63 19 99/55 69 100 Nasal 4.881938 cannula 09/29 1530 59 10 93/55 69 100 09/29 1500 60 11 93/50 64 100 Nasal 4.463035 cannula 09/29 1430 59 12 97/52 68 100 04/ 1400 60 11 112/57 75 100 Nasal 4.698956 cannula 09/29 1332 58 10 112/57 82 100 04 1300 60 12 99/53 68 100 Nasal 4.419508 cannula 09/29 1231 69 14 125/60 86 100 04 1200 36.4 59 10 98/56 70 100 Nasal 4.779643 cannula 09/29 1131 58 10 126/57 82 100 09/29 1100 56 13 126/58 80 100 Nasal 4.370421 cannula 09/29 1031 55 11 122/60 87 100 04 1000 60 12 121/58 79 100 Nasal 4.771171 cannula 09/29 0930 56 14 101/52 73 100 04/20 0900 57 10 107/53 71 100 Nasal 4.455661 cannula 09/29 0831 61 11 84/48 61 100 09/29 0825 100 Nasal 4.352400 cannula 09/29 0800 Nasal 4.887961 cannula 09/29 0800 36.4 58 13 129/59 82 100 Nasal 4.322422 cannula 09/29 0730 60 11 113/56 80 [...] expansionAbdomen: softGenitourinary: ballard, urineExtremities: no edemaMusculoskeletal: normal inspectionNeuro/DIRECTOR OF SOLUTIONS ARCHITECTURE: altered mental statusSkin: dry ResultsFindings/Data:Laboratory Tests 09/27 [...] - 32.0 %) 12.7 L 7.1 L Newton % (Auto) (4.8 - 9.0 %) 5.2 4.6 L Eos % (Auto) (0.3 - 3.7 %) 0.5 0.1 L Baso % (Auto) (0.0 - 2.0 %) 0.1 0.1 Neut # (Auto) (2.0 - 7.6 x10 3/uL) 8.57 H 11.76 H Lymph # (Auto) (1.0 - 3.8 x10 3/uL) 1.34 0.96 L Newton # (Auto) (0.1 - 0.8 x10 3/uL) [...] pH (5.0 - 7.0) 5.0 Ur Specific [place] (1.005 - 1.030) 1.006 Urine Protein (NEGATIVE) [...] 09/30/2019 0736 IMPRESSION:Nonobstructed bowel gas pattern. SL: GZHUZ4KWAK41Frthkieynv By: [email or web address] - Jose Dumont M.D.RADIOLOGY - XR CHEST 1 V 09/29 0514 Report Impression - Status: SIGNED Entered: 09/30/2019 0737 IMPRESSION:1. Decreasing bilateral pleural effusions with decreasing bibasilaratelectasis/infiltrates.2. Decreasing interstitial edema.3. Removal of right jugular line. SL: KUBYM6HVIQ91Lvpdpyzzmw By: [email or web address] - Jose Dumont M.D. Laboratory [...] INR (0.8 - 1.2) 1.3 H PTT ([place]) (25.0 - 39.5 Seconds) 28.5 PT Patient/Control [...] setting.Patient has been taking Metformin 1000 BID, kennteh has lactic acidosis that is induced by [...] acid 1.2 within normal limit, urine output rsgdz9019 cc with Lasix. Chest x-ray still pending. [...] likely related to volume contraction. at [address] [facility] #:[id number] OF REPORTPRProgress Qfqd7226-67-72P26:00:00G.CCZC79209583-1372GLGvsivjtkc for patient edohCAIMKGFJMDCQEJ7251-12-40J18:24:26 [facility] 2019-09-30 14:56:00 BXmngdiothr51677356ADZYSYKdKRXAQWuk3m7+3 VIh7NQTtPb5zORUu5 eRyCU6av69sZ/d6U0GwNIvEKJW8105-85-77N47:56:00 [facility] ([facility])Hospitalist Progress NoteREPORT#:[id number] REPORT STATUS: SignedDATE:09/30/19 TIME: 6 PATIENT: MAC AGUSTIN UNIT #: [id number]#: [id number] [address] [birth year] AGE: 74 SEX: F ATTEND: Joel Myers MDA AUTHOR: Po Carvajal MD * ALL edits or amendments must be made on the electronic/computer document * SubjectiveChief Complaint:NO acute issues overnight per nursing. Review of SystemsUnable to obtain due to:patient with severe dementia Objective GeneralVS/I O:Vital Signs: Date Time Temp Pulse Resp B/P B/P Pulse O2 O2 Flow FiO2 Mean Ox Delivery Rate 09/29 1430 59 12 97/52 68 100 04 1400 60 11 112/57 75 100 Nasal 4.084415 cannula 09/29 1332 58 10 112/57 82 100 04/ 1300 60 12 99/53 68 100 Nasal 4.278976 cannula 09/29 1231 69 14 125/60 86 100 04/ 1200 36.4 59 10 98/56 70 100 Nasal 4.309573 cannula 09/29 1131 58 10 126/57 82 100 04/20 1100 56 13 126/58 80 100 Nasal 4.545991 cannula 09/29 1031 55 11 122/60 87 100 04/20 1000 60 12 121/58 79 100 Nasal 4.740103 cannula 09/29 0930 56 14 101/52 73 100 04/20 0900 57 10 107/53 71 100 Nasal 4.720799 cannula 09/29 0831 61 11 84/48 61 100 04/20 0825 100 Nasal 4.462221 cannula 09/29 0800 Nasal 4.948471 cannula 09/29 0800 36.4 58 13 129/59 82 100 Nasal 4.931835 cannula 20 0730 60 11 113/56 80 100 04/20 0700 61 11 113/55 74 100 Nasal 4.897387 cannula 20 0600 59 11 114/56 81 100 04/20 0500 69 15 114/67 85 100 04/20 0400 62 11 115/56 79 100 04/20 0300 63 11 99/54 74 100 04 0201 61 11 125/58 83 100 04/ 0111 100 Nasal 4.994558 cannula 09/29 0100 65 10 119/60 86 97 04 0000 36.3 04/ 0000 66 10 89/52 65 100 04/ 2300 64 12 117/57 82 100 04/ 2200 65 12 99/54 72 100 / 2100 64 11 93/51 70 100 09/28 2000 73 12 130/57 82 100 / 1930 36.8 04/ 1900 71 11 123/58 84 97 04 1830 60 12 117/53 76 100 04/ 1800 68 21 116/59 80 100 04/ 1730 66 13 136/60 87 100 04/ 1700 68 14 112/55 77 100 04/ 1630 66 13 114/55 79 100 04/ 1606 68 16 101/52 74 100 04 1600 71 18 100 09/28 1600 36.7 100 Nasal 3.226314 cannula 09/28 1600 98 High flow 3.550206 nasal cannula 09/28 1530 92 31 104/58 [...] (bLE +1), no clubbing, no cyanosisMusculoskeletal: normal inspectionNeuro/DIRECTOR OF SOLUTIONS ARCHITECTURE: no motor deficitsSkin: dry, intact, normal color, [...] INR (0.8 - 1.2) 1.3 H PTT ([place]) (25.0 - 39.5 Seconds) 28.5 PT Patient/Control [...] (Auto) (14.0 - 32.0 %) 12.7 L Newton % (Auto) (4.8 - 9.0 %) 5.2 Eos % (Auto) (0.3 - 3.7 %) 0.5 Baso % (Auto) (0.0 - 2.0 %) 0.1 Neut # (Auto) (2.0 - 7.6 x10 3/uL) 8.57 H Lymph # (Auto) (1.0 - 3.8 x10 3/uL) 1.34 Newton # (Auto) (0.1 - 0.8 x10 3/uL) [...] Entered: 09/30/2019735 IMPRESSION:Nonobstructed bowel gas pattern. SL: AKTCY6AHFJ06Vdewkewnny By: Liam Dumont M.D.RADIOLOGY - XR CHEST 1 V 09/29 513 Report Impression - Status: SIGNED Entered: 09/30/201937 IMPRESSION:1. Decreasing bilateral pleural effusions with decreasing bibasilaratelectasis/infiltrates.2. Decreasing interstitial edema.3. Removal of right jugular line. SL: RMZEP4GZNQ39Rjaxskdqkp By: Liam Dumont M.D. Diagnosis, Assessment Plan Free Text DxA P NotesFree text DxA P notes:Severe lactic acidosisSevere metabolic acidosisAcute renal failureHypocalcemiaHypomagnesemia?Septic shock vs lactic acidosis from metforminDehydrationHypothermiaDMHTNDementia with behavior disturbance Plan:Ms. Agustin is a 74 yo female with non-specific symptoms of not feeling well, poor appetite that was found to have abnormal labs at AL, sent to ED for evaluation. In the [...] to 10.5On zosynTransfer to the floordw RN, HAM PASSER, consultantsCXR and telemetry personally reviewedFurther recs per clinical course at 1502 RPT #:[id number] OF REPORTPRProgress Ckyl2131-06-36U10:56:00G.ZOTI02004628-9948LGTnysdwxoz for patient dodnJFZJJASFHUJOCB4940-35-19R15:02:33 [facility] 2019-09-30 14:44:00 ZWqokuyzdji30602191AtfPFaqRqZdYwtyyz8iGO 3KRwASXENjNZESJkS e44alz5CTs5tX0hT6MNJnhGSgx7574-24-55P50:44:[address] [facility])Gastroenterology Progress NoteREPORT#:[id number] REPORT STATUS: SignedDATE:09/30/19 TIME: 1444 PATIENT: MAC AGUSTIN UNIT #: [id number]#: [id number] [address] [birth year] AGE: 74 SEX: F ATTEND: [...] Nasal cannula 09/29 1400 O2 Flow Rate 4.498478 09/29 1400 Temp 36.4 09/29 1200 24 [...] no acute distressHEENT: moist mucosal membranesCardiovascular: normal S1/F8Alvsjiwwoiv: clear to auscultationAbdomen: non-tender, normal bowel sounds, [...] INR (0.8 - 1.2) 1.3 H PTT ([place]) (25.0 - 39.5 Seconds) 28.5 PT Patient/Control [...] (Auto) (14.0 - 32.0 %) 12.7 L Newton % (Auto) (4.8 - 9.0 %) 5.2 Eos % (Auto) (0.3 - 3.7 %) 0.5 Baso % (Auto) (0.0 - 2.0 %) 0.1 Neut # (Auto) (2.0 - 7.6 x10 3/uL) 8.57 H Lymph # (Auto) (1.0 - 3.8 x10 3/uL) 1.34 Newton # (Auto) (0.1 - 0.8 x10 3/uL) [...] Entered: 09/30/201936 IMPRESSION:Nonobstructed bowel gas pattern. SL: XEMEU9FAGB37Hkmfiggvqo By: Liam Dumont M.D.RADIOLOGY - XR CHEST 1 V 09/29 513 Report Impression - Status: SIGNED Entered: 09/30/201937 IMPRESSION:1. Decreasing bilateral pleural effusions with decreasing bibasilaratelectasis/infiltrates.2. Decreasing interstitial edema.3. Removal of right jugular line. SL: TDZNL6FEEX86Gqjsocxiby By: Liam Dumont M.D. Results: labs reviewed, [...] infectioun- PPI- Supportive care at 1456 RPT #:[id number] OF REPORTPRProgress Lfsb9708-01-33F58:44:00G.ENPV95101965-5799USPrabwxfpt for patient vnsaSXLKSAJZBKHZNK6958-47-74D84:56:42 [facility] 2019-09-30 14:44:00 ZDatnximgcg27893219KzDduPBCOKdSs251j2dH+ i7BdVTYHAKM8J41TZ ZQutRAeFhRGEqTPuUbPdlWesVC3073-68-16P42:44:00 [facility] ([facility])Gastroenterology Progress NoteREPORT#:[id number] REPORT STATUS: SignedDATE:09/30/19 TIME: 1444 PATIENT: MAC AGUSTIN UNIT #: [id number]#: [id number] ROOM/BED: G5526-1DOB: [birth year] AGE: 74 SEX: F ATTEND: Joel Myers MDA AUTHOR: Arian Anderson * ALL edits or amendments must be made on the electronic/computer document * JustinArian Mata 09/30/19 1444:SubjectiveChief Complaint:weakHPI:Green watery stool. Rectal tube in place. Not eating. Review of SystemsUnable to obtain due to:patient condition Objective GeneralVS/I O:Last Documented: Result Date Time Pulse Ox 100 09/29 1430 B/P 97/52 09/29 1430 B/P Mean 68 09/29 1430 Pulse 59 09/29 1430 Resp 12 09/29 1430 O2 Delivery Nasal cannula 09/29 1400 O2 Flow Rate 4.223322 09/29 1400 Temp 36.4 09/29 1200 24 [...] no acute distressHEENT: moist mucosal membranesCardiovascular: normal S1/U4Scsuefktvze: clear to auscultationAbdomen: non-tender, normal bowel sounds, [...] (Auto) (14.0 - 32.0 %) 12.7 L [place] % (Auto) (4.8 - 9.0 %) 5.2 Eos % (Auto) (0.3 - 3.7 %) 0.5 Baso % (Auto) (0.0 - 2.0 %) 0.1 Neut # (Auto) (2.0 - 7.6 x10 3/uL) 8.57 H Lymph # (Auto) (1.0 - 3.8 x10 3/uL) 1.34 Newton # (Auto) (0.1 - 0.8 x10 3/uL) [...] 09/30/2019 0736 IMPRESSION:Nonobstructed bowel gas pattern. SL: IQYTZ2VUSY15Bjfufrxyed By: [email or web address] - Jose Kiel Miles, M.D.RADIOLOGY - XR CHEST 1 V 09/29 0514 Report Impression - Status: SIGNED Entered: 09/30/2019 0737 IMPRESSION:1. Decreasing bilateral pleural effusions with decreasing bibasilaratelectasis/infiltrates.2. Decreasing interstitial edema.3. Removal of right jugular line. SL: FYHEC8UOJS68Szngdjakql By: [email or web address] - Jose Dumont M.D. Results: labs reviewed, vital signs [...] the findings and plan as documented by HAM PASSER. at 9376 RPT #:[id number] OF REPORTPRProgress Cbxr2970-37-17M38:44:00G.KEXV26776776-5555BUJmipitvol for patient plzyDEZFDBFSHDPAFD7707-01-58X17:01:26 [facility] 2019-09-30 14:44:00 HEkguwkjmft63208076Tz92UVLQ3WtU15EO9IuqS qsokEd+9tixLIc6f+ 2r6CZYoatABwZN/b31eR62k6A91478-66-85I03:44:00 [facility] Progress NoteREPORT#:[id number] REPORT STATUS: SignedDATE:09/30/19 TIME: 1444 PATIENT: MAC AGUSTIN UNIT #: [id number]#: [id number] [address] [birth year] AGE: 74 SEX: F ATTEND: [facility] AUTHOR: Arian Anderson * ALL edits or [...] Nasal cannula 09/29 1400 O2 Flow Rate 4.851737 09/29 1400 Temp 36.4 09/29 1200 24 [...] no acute distressHEENT: moist mucosal membranesCardiovascular: normal S1/R5Wlwdgrjqmrd: clear to auscultationAbdomen: non-tender, normal bowel sounds, [...] (Auto) (14.0 - 32.0 %) 12.7 L [place] % (Auto) (4.8 - 9.0 %) 5.2 Eos % (Auto) (0.3 - 3.7 %) 0.5 Baso % (Auto) (0.0 - 2.0 %) 0.1 Neut # (Auto) (2.0 - 7.6 x10 3/uL) 8.57 H Lymph # (Auto) (1.0 - 3.8 x10 3/uL) 1.34 Newton # (Auto) (0.1 - 0.8 x10 3/uL) [...] Entered: 09/30/2019735 IMPRESSION:Nonobstructed bowel gas pattern. SL: CEQVR2HASU37Gjgdykshsr By: Liam Dumont M.D.RADIOLOGY - XR CHEST 1 V 09/29 513 Report Impression - Status: SIGNED Entered: 09/30/201937 IMPRESSION:1. Decreasing bilateral pleural effusions with decreasing bibasilaratelectasis/infiltrates.2. Decreasing interstitial edema.3. Removal of right jugular line. SL: CLAZZ4VCGI38Qnitaknadz By: Liam Dumont M.D. Results: labs reviewed, [...] the findings and plan as documented by HAM PASSER. at 1456 at 0913 RPT #:[id number] OF REPORTPRProgress Dela5230-58-26C22:44:00G.KJGW16145065-1882EBNddfsnfmj for patient kxejPPWOMUPJENGGYW6284-98-67T13:14:03 [facility] 2019-09-30 07:09:00 ZEghixhsons637577020NQBzxs9NGCL1pHiGDWJ+ WDflmubTDhskXMo7z R/LLPjGVYciVOHRMVkQSLTt22U9210-32-58I54:09:00 [facility] Progress NoteREPORT#:[id number] REPORT STATUS: SignedDATE:09/30/19 TIME: 07 PATIENT: MAC AGUSTIN UNIT #: [id number]#: [id number] [address]: [birth year] AGE: 74 SEX: F ATTEND: [facility] AUTHOR: Rabai Aguilar MD * ALL edits or amendments [...] 09/29 0400 62 11 115/56 79 100 04/20 0300 63 11 99/54 74 100 04 0201 61 11 125/58 83 100 04/ 0111 100 Nasal 4.414848 cannula 09/29 0100 65 10 119/60 86 97 09/29 0000 36.3 09/29 0000 66 10 89/52 65 100 04/ 2300 64 12 117/57 82 100 04/ 2200 65 12 99/54 72 100 04/ 2100 64 11 93/51 70 100 042000 73 12 130/57 82 100 04/ 1930 36.8 04/ 1900 71 11 123/58 84 97 09/28 1830 60 12 117/53 76 100 04/ 1800 68 21 116/59 80 100 04 1730 66 13 136/60 87 100 04/ 1700 68 14 112/55 77 100 04 1630 66 13 114/55 79 100 04/ 1606 68 16 101/52 74 100 04 1600 71 18 100 04 1600 36.7 100 Nasal 3.974470 cannula 09/28 1600 98 High flow 3.120345 nasal cannula 09/28 1530 92 31 104/58 75 99 09/28 1500 71 15 111/55 78 100 04 1430 73 15 141/66 93 100 09/28 1400 72 16 127/60 87 100 04 1330 73 18 129/60 86 100 09/28 1300 74 16 130/62 89 100 04 1230 79 18 128/61 88 100 04 1200 98 High flow 3.227690 nasal cannula 09/28 1200 74 16 126/58 84 100 09/28 1200 36.7 100 Nasal 3.277228 cannula 09/28 1130 83 20 142/62 89 100 09/28 1100 80 18 111/59 82 100 09/28 1030 82 27 102/72 84 95 09/28 1000 79 21 111/55 79 100 09/28 0930 81 24 108/54 78 100 04 0900 77 21 110/56 81 100 09/28 0830 73 21 119/57 82 100 04/ 0825 100 Nasal 3.634749 cannula 09/28 0800 Nasal 3.661008 cannula 09/28 0800 76 25 115/58 83 09/28 0800 36.4 100 Nasal 3.323915 cannula 09/28 0730 83 26 113/55 79 [...] ONE PO (DC) Dextrose/Sodium Chloride 1,000 ML .S97F71Q IV (DC) Vancomycin HCl 1,000 MG DIALYSIS-DOSE [...] expansionAbdomen: softGenitourinary: ballard, urineExtremities: no edemaMusculoskeletal: normal inspectionNeuro/DIRECTOR OF SOLUTIONS ARCHITECTURE: altered mental statusSkin: dry ResultsFindings/Data:Laboratory Tests 09/27 [...] %) 12.7 L 7.1 L 6.5 L [place] % (Auto) (4.8 - 9.0 %) 5.2 4.6 L 7.5 Eos % (Auto) (0.3 - 3.7 %) 0.5 0.1 L 0.1 L Baso % (Auto) (0.0 - 2.0 %) 0.1 0.1 0.1 Neut # (Auto) (2.0 - 7.6 x10 3/uL) 8.57 H 11.76 H 12.84 H Lymph # (Auto) (1.0 - 3.8 x10 3/uL) 1.34 0.96 L 0.97 L [place] # (Auto) (0.1 - 0.8 x10 3/uL) [...] (Auto) (14.0 - 32.0 %) 4.9 L [place] % (Auto) (4.8 - 9.0 %) 9.3 H Eos % (Auto) (0.3 - 3.7 %) 0.0 L Baso % (Auto) (0.0 - 2.0 %) 0.1 Neut # (Auto) (2.0 - 7.6 x10 3/uL) 15.30 H Lymph # (Auto) (1.0 - 3.8 x10 3/uL) 0.89 L [place] # (Auto) (0.1 - 0.8 x10 3/uL) [...] pH (5.0 - 7.0) 5.0 Ur Specific [place] (1.005 - 1.030) 1.006 Urine Protein (NEGATIVE) [...] Impressions:RADIOLOGY - XR CHEST 1 V 09/28 0441 Report Impression - Status: SIGNED Entered: 09/29/2019 0712 IMPRESSION:1. Severe pulmonary vascular congestion and or pulmonary edema withdeveloping moderate bilateral layering pleural effusions.2. Developing dense left retrocardiac opacity, probably representingatelectasis or early consolidation.3. Enlarged cardiac silhouette. SL: QNRPO5LMNJ67Vekrgcvxhv By: [email or web address] - Scott Duran M.D. Laboratory [...] (Auto) (14.0 - 32.0 %) 12.7 L [place] % (Auto) (4.8 - 9.0 %) 5.2 Eos % (Auto) (0.3 - 3.7 %) 0.5 Baso % (Auto) (0.0 - 2.0 %) 0.1 Neut # (Auto) (2.0 - 7.6 x10 3/uL) 8.57 H Lymph # (Auto) (1.0 - 3.8 x10 3/uL) 1.34 Newton # (Auto) (0.1 - 0.8 x10 3/uL) [...] acid 1.2 within normal limit, urine output zwsry0679 cc with Lasix. Chest x-ray still pending. Progressive thrombocytopenia with progressive decrease in hemoglobin, the latter could be related to fluid resuscitation, multiple blood draws and blood loss during dialysis procedure, however will check LDH, haptoglobin, PT/ PT. at 1209 RPT #:[id number] OF REPORTPRProgress Svkk5765-76-28W28:09:00G.BTJV71778253-8023GVGfeewwezs for patient caaeRRREGWDQCHJKDM9143-37-77E73:09:44 [facility] 2019-09-29 19:57:00 YBhwdljakhr92563825ANsUj90vP87AaZOjT+028 JMUkgvVli7SE9S1lm u1wM60JvtSlq4dHsHMudOq4GgX2936-47-53R40:57:00 [facility] ([facility])Gastroenterology Progress NoteREPORT#:[id number] REPORT STATUS: SignedDATE:09/29/19 TIME: 1956 PATIENT: MAC AGUSTIN UNIT #: [id number]#: [id number] [address] AGE: 74 SEX: F ATTEND: [facility] AUTHOR: Cam Delgadillo MD * ALL edits [...] ONE PO (DC) Dextrose/Sodium Chloride 1,000 ML .[id number] IV (DC) Vancomycin HCl 1,000 MG DIALYSIS-DOSE [...] no acute distressHEENT: moist mucosal membranesCardiovascular: normal S1/M1Yfoetuxtifd: clear to auscultationAbdomen: non-tender, normal bowel sounds, [...] (Auto) (14.0 - 32.0 %) 7.1 L Newton % (Auto) (4.8 - 9.0 %) 4.6 L Eos % (Auto) (0.3 - 3.7 %) 0.1 L Baso % (Auto) (0.0 - 2.0 %) 0.1 Neut # (Auto) (2.0 - 7.6 x10 3/uL) 11.76 H Lymph # (Auto) (1.0 - 3.8 x10 3/uL) 0.96 L Newton # (Auto) (0.1 - 0.8 x10 3/uL) [...] Impressions:RADIOLOGY - XR CHEST 1 V 09/28 0441 Report Impression - Status: SIGNED Entered: 09/29/2019 0712 IMPRESSION:1. Severe pulmonary vascular congestion and or pulmonary edema withdeveloping moderate bilateral layering pleural effusions.2. Developing dense left retrocardiac opacity, probably representingatelectasis or early consolidation.3. Enlarged cardiac silhouette. SL: [id number] By: GaryERRStanton - Scott Duran M.D. Vital Signs: Date [...] 18 100 09/28 1600 36.7 100 Nasal 3.059117 cannula 09/28 1600 98 High flow 3.991008 nasal cannula 09/28 1530 92 31 104/58 75 99 09/28 1500 71 15 111/55 78 100 09/28 1430 73 15 141/66 93 100 09/28 1400 72 16 127/60 87 100 09/28 1330 73 18 129/60 86 100 09/28 1300 74 16 130/62 89 100 09/28 1230 79 18 128/61 88 100 09/28 1200 98 High flow 3.193707 nasal cannula 09/28 1200 74 16 126/58 84 100 09/28 1200 36.7 100 Nasal 3.856880 cannula 09/28 1130 83 20 142/62 89 100 09/28 1100 80 18 111/59 82 100 09/28 1030 82 27 102/72 84 95 09/28 1000 79 21 111/55 79 100 09/28 0930 81 24 108/54 78 100 09/28 0900 77 21 110/56 81 100 09/28 0830 73 21 119/57 82 100 09/28 0825 100 Nasal 3.742853 cannula 09/28 0800 Nasal 3.803085 cannula 09/28 0800 76 25 115/58 83 09/28 0800 36.4 100 Nasal 3.346453 cannula Laboratory Tests 09/29/19 1724:[Embedded Image Not [...] (0 - 100 PG/ML) 546.7 H 09/27 2044 Chemistry Sodium (134 - 147 mEq/L) [...] (Auto) (14.0 - 32.0 %) 7.1 L Newton % (Auto) (4.8 - 9.0 %) 4.6 L Eos % (Auto) (0.3 - 3.7 %) 0.1 L Baso % (Auto) (0.0 - 2.0 %) 0.1 Neut # (Auto) (2.0 - 7.6 x10 3/uL) 11.76 H Lymph # (Auto) (1.0 - 3.8 x10 3/uL) 0.96 L Newton # (Auto) (0.1 - 0.8 x10 3/uL) [...] is no longer required. at 2002 RPT #:[id number] OF REPORTPRProgress [id number]:57:00G.[id number] for patient pxxkNIHPUUNLLXXSIH1061-07-54G32:03:16 [facility]L 2019-09-29 13:57:00 AIkkcbfkmhv04201478sCV5QaKXR9j0W2ePhvOn0 f7vT8O4qj9d6/DLa0 LRleJzMt07mcw4IWQmNWDD1PiP2764-81-07C77:57:00 [facility] ([facility])Hospitalist Progress NoteREPORT#:[id number] REPORT STATUS: SignedDATE:09/29/19 TIME: 1357 PATIENT: MAC AGUSTIN UNIT #: [id number]#: [id number] [address] AGE: 74 SEX: F ATTEND: [facility] AUTHOR: Marisabel Chu DO * ALL edits [...] 84 100 09/28 1200 98.1 100 Nasal 3.322794 cannula 09/28 1130 83 20 142/62 89 100 09/28 1100 80 18 111/59 82 100 09/28 1030 82 27 102/72 84 95 09/28 1000 79 21 111/55 79 100 09/28 0930 81 24 108/54 78 100 09/28 0900 77 21 110/56 81 100 09/28 0830 73 21 119/57 82 100 09/28 0825 100 Nasal 3.341259 cannula 09/28 0800 Nasal 3.324873 cannula 09/28 0800 76 25 115/58 83 09/28 0800 97.5 100 Nasal 3.992333 cannula 09/28 0730 83 26 113/55 79 [...] 105/58 75 99 09/27 2000 High flow 5.185822 nasal cannula 09/28 1999 83 23 100/57 72 100 09/27 1930 97.3 09/27 1900 90 30 93/51 67 99 09/27 1831 88 31 98/47 58 99 09/27 1801 91 26 109/51 74 100 09/27 1730 72 18 102/56 76 100 09/27 1700 71 18 101/50 72 100 09/27 1630 70 13 101/55 73 100 09/27 1600 99 High flow 5.649580 nasal cannula 09/27 1600 74 15 109/58 81 100 09/27 1600 97.5 100 High flow 10.960570 nasal cannula 09/27 1530 69 14 105/58 [...] ONE PO (DC) Dextrose/Sodium Chloride 1,000 ML .[id number] IV (DC) Vancomycin HCl 1,000 MG DIALYSIS-DOSE [...] (bLE +1), no clubbing, no cyanosisMusculoskeletal: normal inspectionNeuro/DIRECTOR OF SOLUTIONS ARCHITECTURE: no motor deficitsSkin: dry, intact, normal color, [...] (Auto) (14.0 - 32.0 %) 7.1 L Newton % (Auto) (4.8 - 9.0 %) 4.6 L Eos % (Auto) (0.3 - 3.7 %) 0.1 L Baso % (Auto) (0.0 - 2.0 %) 0.1 Neut # (Auto) (2.0 - 7.6 x10 3/uL) 11.76 H Lymph # (Auto) (1.0 - 3.8 x10 3/uL) 0.96 L Newton # (Auto) (0.1 - 0.8 x10 3/uL) [...] or early consolidation.3. Enlarged cardiac silhouette. SL: JPQPQ3SIMA17Aoutasmiai By: [email or web address] - Scott Duran M.D. Diagnosis, Assessment Plan Free Text DxA P NotesFree text DxA P notes:Severe lactic acidosisSevere metabolic acidosisAcute renal failureHypocalcemiaHypomagnesemia?Septic shock vs lactic acidosis from metforminDehydrationHypothermiaDMHTNDementia with behavior disturbance Plan:Ms. Agustin is a 74 yo female with non-specific symptoms of not feeling well, poor appetite that was found to have abnormal labs at [place], sent to ED for evaluation. In the [...] improvedCheck labs in am at 1403 RPT #:[id number] OF REPORTPRProgress Guup0482-44-80S46:57:00G.ZNRF79855504-7657THWyqghlysi for patient wfrpWPWTKRPSYJNJWS6106-60-81P44:04:04 [facility]L 2019-09-29 10:19:00 GOaiwbnkajf37381331gp2B5E0gfLiQ6LWHIKQir xFHXobCW4MqaZABXh Z4fxAzOwR8f4rnGBGY2MabBFJJ2363-76-08Z64:19:00 [facility] ([facility])Critical Care Progress NoteREPORT#:[id number] REPORT STATUS: SignedDATE:09/29/19 TIME: 1019 PATIENT: MAC AGUSTIN UNIT #: [id number]#: [id number] [address] AGE: 74 SEX: F ATTEND: [facility] AUTHOR: Helga Escalante NP * ALL edits or amendments must be made on the electronic/computer document * SubjectiveChief Complaint:lethargicdenies painHPI:A 74 y/o female with past medical history significant for Alzheimer's dementia, behavioral disturbance, hypertension, type 2 diabetes mellitus, migraine headaches, anxiety disorder, bowel and bladder incontinence, rheumatoid arthritis, frequent UTI was brought from the group home. She has been unwell for the past [...] Nasal cannula 09/28 1600 O2 Flow Rate 3.851433 09/28 1600 Temp 98.1 09/28 1600 24 [...] ONE PO (DC) Dextrose/Sodium Chloride 1,000 ML .G09A07E IV (DC) Vancomycin HCl 1,000 MG DIALYSIS-DOSE [...] cyanosis, no edema, no pedal edemaMusculoskeletal: decreased ROMNeuro/DIRECTOR OF SOLUTIONS ARCHITECTURE: no sensory deficitsSkin: dry, intact, normal color, [...] (Auto) (14.0 - 32.0 %) 7.1 L Newton % (Auto) (4.8 - 9.0 %) 4.6 L Eos % (Auto) (0.3 - 3.7 %) 0.1 L Baso % (Auto) (0.0 - 2.0 %) 0.1 Neut # (Auto) (2.0 - 7.6 x10 3/uL) 11.76 H Lymph # (Auto) (1.0 - 3.8 x10 3/uL) 0.96 L Newton # (Auto) (0.1 - 0.8 x10 3/uL) [...] pH (5.0 - 7.0) 5.0 Ur Specific [place] (1.005 - 1.030) 1.006 Urine Protein (NEGATIVE) [...] Impressions:RADIOLOGY - XR CHEST 1 V 09/28 0114 Report Impression - Status: SIGNED Entered: 09/29/2019 0712 IMPRESSION:1. Severe pulmonary vascular congestion and or pulmonary edema withdeveloping moderate bilateral layering pleural effusions.2. Developing dense left retrocardiac opacity, probably representingatelectasis or early consolidation.3. Enlarged cardiac silhouette. SL: OZXDX3WTZB84Rgrnmepqpn By: [email or web address] - Scott Duran M.D. Results: [...] repeat serum acetone in AM. HEMEAnemia-H/H stable 8.4/. Plt count 99 this AM. No signs [...] scale and adjust as needed.Repleteelectrolytes as needed. DZHFSokW2I 6. AG closed, insulin gtt discontinued and started on ss-adjust as needed. HEMEAnemia-H/H stable 7.8/. Plt count 81 this AM - monitor [...] discharge planning.Consultants: gastroenterology, nephrology at 1809 RPT #:[id number] OF REPORTPRProgress Mraw4933-91-42K51:19:00G.CIVR52684913-1453OWVdczmynpr for patient cystKKNNOAICULALRC0146-23-89B38:09:53 [facility]L 2019-09-29 07:18:00 VAmybsenlli68349167ytH1qjx6XDLaV6suD5OYX 02CVk8iWSIw+yoWilliam cE1f6NSbVwq6CeOoRbNyz8x9xZ7979-84-06U37:18:00 [facility] ([facility])Nephrology Progress NoteREPORT#:[id number] REPORT STATUS: SignedDATE:09/29/19 TIME: 717 PATIENT: MAC AGUSTIN UNIT #: [id number]#: [id number] [address] [birth year] AGE: 74 SEX: F ATTEND: [facility] AUTHOR: Rabia Aguilar MD * ALL edits [...] 09/27 2300 73 16 120/59 83 100 04/18 2200 78 20 115/54 78 100 / 2101 94 26 105/58 75 99 /1999 High flow 5.716428 nasal cannula 09/28 1999 83 23 100/57 72 100 04/ 1930 36.3 09/27 1900 90 30 93/51 67 99 / 1831 88 31 98/47 58 99 09/27 1801 91 26 109/51 74 100 04/ 1730 72 18 102/56 76 100 04/ 1700 71 18 101/50 72 100 / 1630 70 13 101/55 73 100 / 1600 99 High flow 5.399915 nasal cannula 09/27 1600 74 15 109/58 81 100 / 1600 36.4 100 High flow 10.156977 nasal cannula 09/27 1530 69 14 105/58 78 100 / 1500 91 28 106/54 75 100 09/27 1430 80 21 95/50 66 99 09/27 1400 74 13 101/56 76 100 04/ 1330 81 19 101/53 73 100 09/27 1300 74 15 109/54 78 100 09/27 1230 82 20 105/58 78 100 09/27 1200 100 High flow 5.004815 nasal cannula 09/27 1200 36.4 100 High flow 10.930548 nasal cannula 09/27 1200 87 21 105/56 76 100 04/18 1130 77 18 105/70 82 100 /18 1100 76 20 114/53 77 100 / 1030 76 17 111/56 80 100 / 1000 68 12 92/53 69 100 09/27 0930 80 16 109/57 79 100 / 0900 78 15 108/56 75 100 /18 0830 81 17 105/55 79 100 09/27 0800 High flow 10.596087 nasal cannula 09/27 0800 36.2 100 High flow 10.757034 nasal cannula 09/27 0800 36.2 100 High flow 10.483173 nasal cannula 09/27 0800 87 21 95/52 69 100 / 0730 87 21 93/55 72 100 24 [...] Sodium Chloride 250 MLSodium Bicarbonate 75 ML .G41A03T IV (DC) Sodium Chloride 1,000 MLHeparin Sodium [...] expansionAbdomen: softGenitourinary: ballard, urineExtremities: no edemaMusculoskeletal: normal inspectionNeuro/DIRECTOR OF SOLUTIONS ARCHITECTURE: altered mental statusSkin: dry ResultsFindings/Data:Laboratory Tests 09/27 09/26 09/26 09/25 09/25 1147 0983 4759 2178 1505Blood Gas Puncture Site R Rad L Rad [...] mg/dL) 1.50 L Laboratory Tests 09/28 09/27 2753 0438 Hematology WBC (4.5 - 11.0 x10 [...] - 32.0 %) 7.1 L 6.5 L Newton % (Auto) (4.8 - 9.0 %) 4.6 L 7.5 Eos % (Auto) (0.3 - 3.7 %) 0.1 L 0.1 L Baso % (Auto) (0.0 - 2.0 %) 0.1 0.1 Neut # (Auto) (2.0 - 7.6 x10 3/uL) 11.76 H 12.84 H Lymph # (Auto) (1.0 - 3.8 x10 3/uL) 0.96 L 0.97 L Newton # (Auto) (0.1 - 0.8 x10 3/uL) [...] (Auto) (14.0 - 32.0 %) 4.9 L Newton % (Auto) (4.8 - 9.0 %) 9.3 H Eos % (Auto) (0.3 - 3.7 %) 0.0 L Baso % (Auto) (0.0 - 2.0 %) 0.1 Neut # (Auto) (2.0 - 7.6 x10 3/uL) 15.30 H Lymph # (Auto) (1.0 - 3.8 x10 3/uL) 0.89 L Newton # (Auto) (0.1 - 0.8 x10 3/uL) [...] - 32.0 %) 2.8 L 4.8 L Newton % (Auto) (4.8 - 9.0 %) 6.5 3.2 L Eos % (Auto) (0.3 - 3.7 %) 1.1 0.1 L Baso % (Auto) (0.0 - 2.0 %) 0.2 0.1 Neut # (Auto) (2.0 - 7.6 x10 3/uL) 19.09 H 19.89 H Lymph # (Auto) (1.0 - 3.8 x10 3/uL) 0.61 L 1.06 Newton # (Auto) (0.1 - 0.8 x10 3/uL) [...] pH (5.0 - 7.0) 5.0 Ur Specific [place] (1.005 - 1.030) 1.006 Urine Protein (NEGATIVE) [...] or early consolidation.3. Enlarged cardiac silhouette. SL: USRXJ6XFGD07Wsaihsckvz By: [email or web address] - Scott Duran M.D. Laboratory [...] (Auto) (14.0 - 32.0 %) 7.1 L Newton % (Auto) (4.8 - 9.0 %) 4.6 L Eos % (Auto) (0.3 - 3.7 %) 0.1 L Baso % (Auto) (0.0 - 2.0 %) 0.1 Neut # (Auto) (2.0 - 7.6 x10 3/uL) 11.76 H Lymph # (Auto) (1.0 - 3.8 x10 3/uL) 0.96 L Newton # (Auto) (0.1 - 0.8 x10 3/uL) [...] pH (5.0 - 7.0) 5.0 Ur Specific [place] (1.005 - 1.030) 1.006 Urine Protein (NEGATIVE) [...] blood count 13.57 improving. at 1335 [facility] #:[id number] OF REPORTPRProgress Uonw3021-30-92D92:18:00G.HNZF20367189-7612UTNccwvjfpb for patient mjnpSDDGCXFHIJRHIK3748-84-82C22:35:32 [facility]L 2019-09-28 20:32:00 WHvmncahcez378105794XRKYBlG+4s61/a3PL17Y ir6qIPa841QOL8Jqe gL/Yxw+xtx441EoH+zQtyWw+CS4390-11-30K54:32:028567-[address] [place], [place] [address] PATIENT NAME: MCA AGUSITN ADMIT DATE: 09/26/19ACCOUNT NO: [id number] ROOM NO: G.4431 AGE: 74 REPORT TYPE: CONSULTATION REPORT SEX: F ADMITTING PHYSICIAN:Joel Myers MD ATTENDING PHYSICIAN:Joel Myers MD CONSULTATION DATE: 09/28/2019 CONSULTING PHYSICIAN: Cam Delgadillo MD GASTROENTEROLOGY CONSULTATION NOTE CONSULTING PHYSICIAN: Joel Myers MD REASON FOR CONSULTATION: Abnormal CT scan. HISTORY OF PRESENT ILLNESS: A 74-year-old female with advanced dementia,group home resident, type 2 diabetes, hypertension, and chronic pain, who gottransferred from group home because she had not been eating or [...] noncontributory. FAMILY HISTORY: Noncontributory. SOCIAL HISTORY: A group home resident. No smoking, alcohol, or any illicitdrug use. ALLERGIES: PENICILLAMINE. HOME MEDICATIONS: Glucophage, Seroquel, Tylenol, BuSpar, Aricept. PATIENT NAME: MAC AGUSTIN INPATIENT MEDICATIONS: List is reviewed. The patient is getting intravenousvancomycin, intravenous piperacillin/tazobactam along with other medications. PHYSICAL EXAMINATION:VITAL SIGNS: Temperature 97.3, pulse 88, respirations 26 to 31, blood mqrijuhl28/47 to 109/51, oxygen saturation 99% on nasal [...] inboth lungs, greatest in the lung bases.8. 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 measuring [...] MD WT: CON:GERICA/MALIK.06/NTSDD: 09/28/2019 20:32:10DT: 09/28/2019 21:13:23Conf#: [id number]/DID#: [id number] Authenticated and Edited by Cam Delgadillo MD On 09/30/19 11:28:58 PM at 2332 PATIENT NAME: MAC AGUSTIN :13:00G.[id number] 8-0216AVAvailable for patient cbkoQFXFWQWKHFQKYO4242-02-40D35:32:19 [facility] 2019-09-28 14:03:00 AIirpkmkoeb45994048nPqA/wlDbHvwkrozC5bxE 6AkGLBDLdb2GBZQHw +yubDrUAdqCAbmPfYs8AvYyqzs3737-28-80P52:03:00 [facility] ([facility])Hospitalist Progress NoteREPORT#:[id number] REPORT STATUS: SignedDATE:09/28/19 TIME: 1403 PATIENT: MAC AGUSTIN UNIT #: [id number]#: [id number] [facility] AGE: 74 SEX: F ATTEND: [facility] AUTHOR: Marisabel Chu DO * ALL edits [...] 04/ 1100 76 20 114/53 77 100 04/18 1030 76 17 111/56 80 100 04/18 1000 68 12 92/53 69 100 04/18 0930 80 16 109/57 79 100 04/18 0900 78 15 108/56 75 100 /18 0830 81 17 105/55 79 100 04/18 0800 97.1 100 High flow 10.696567 nasal cannula / 0800 87 21 95/52 69 100 04/18 0730 87 21 93/55 72 100 04/18 0715 83 18 94/52 71 98 04/18 0700 140 16 106/56 75 95 04/18 0645 101 18 111/53 75 96 04/18 0630 83 17 99/56 71 95 04/18 0615 130 25 99/53 72 96 04/18 0600 94 19 97/55 73 96 04/18 0500 76 15 103/53 75 100 /18 0401 121 20 119/56 80 99 04/18 0400 96.9 / 0345 84 16 98/53 69 100 04/18 0330 79 16 87/54 67 98 04/18 0300 79 16 100/53 75 98 04/18 0230 79 17 105/51 74 98 04/18 0200 80 15 109/56 80 98 04/18 0130 76 19 94/53 69 98 04/18 0100 76 16 113/56 81 99 04/18 0030 128 17 91/50 61 99 /18 0000 97.9 04 0000 79 18 107/53 77 99 / 2330 77 19 106/53 76 100 09/26 2300 78 17 113/51 74 100 09/26 2230 75 16 101/53 74 100 09/26 2200 81 16 102/54 74 100 09/26 2130 83 16 95/55 68 100 09/26 2100 78 16 112/57 77 99 / 2030 73 18 89/51 64 97 09/26 2000 97.7 09/27 1999 High flow 10.524554 nasal cannula 09/26 2000 77 16 104/57 76 99 09/26 1930 75 14 101/52 73 100 09/26 1920 100 High flow 10.945849 nasal cannula 09/26 1900 79 17 106/51 [...] 105/57 77 09/26 1600 97.5 High flow 10.175651 nasal cannula 09/26 1600 86 19 98/56 [...] ONE IV (DC) Sodium Bicarbonate 75 ML .P19G67I IV (DC) Sodium Chloride 1,000 MLVancomycin HCl [...] - 32.0 %) 6.5 L 4.9 L Newton % (Auto) (4.8 - 9.0 %) 7.5 9.3 H Eos % (Auto) (0.3 - 3.7 %) 0.1 L 0.0 L Baso % (Auto) (0.0 - 2.0 %) 0.1 0.1 Neut # (Auto) (2.0 - 7.6 x10 3/uL) 12.84 H 15.30 H Lymph # (Auto) (1.0 - 3.8 x10 3/uL) 0.97 L 0.89 L Newton # (Auto) (0.1 - 0.8 x10 3/uL) [...] pH (5.0 - 7.0) 5.0 Ur Specific [place] (1.005 - 1.030) 1.006 Urine Protein (NEGATIVE) [...] was found to have abnormal labs at AL, sent to ED for evaluation. In the [...] Check labs in am at 1412 RPT #:[id number] OF REPORTPRProgress Rblp2048-77-84I48:03:00G.MEEG10223019-0947QXFaugavedk for patient jynmNEPWWMQTLNOGAY6993-45-89Q51:12:54 [facility] 2019-09-28 13:07:00 PSclostsyzr20847432tnLUD4RErlYKfjlcBmdBU J/AqWRASZkzObeUVj MUJZqwf9B1lBvlbuHUNBZtCV7P1891-76-22L71:07:00 [facility] ([facility])Critical Care Progress NoteREPORT#:[id number] REPORT STATUS: SignedDATE:09/28/19 TIME: 1307 PATIENT: MAC AGUSTIN UNIT #: [id number]#: [id number] [facility] AGE: 74 SEX: F ATTEND: Joel Myers AUTHOR: Helga Escalante NP * ALL edits or amendments must be made on the electronic/computer document * SubjectiveChief Complaint:lethargicdenies painHPI:74 years old female with past medical history significant for Alzheimer's dementia, behavioral disturbance, hypertension, type 2 diabetes mellitus, migraine headaches, anxiety disorder, bowel and bladder incontinence, rheumatoidarthritis, frequent UTI was brought from the group home. She has been unwell for the past [...] be broadened to Zosyn and Vanco given group home placement. Concern is about ischemic bowel. Also [...] nasal cannula 09/27 0800 O2 Flow Rate 10.931618 09/27 0800 Temp 97.1 09/27 0800 24 [...] ONE IV (DC) Sodium Bicarbonate 75 ML .M08A78O IV (CKD) Sodium Chloride 1,000 MLVancomycin HCl [...] cyanosis, no edema, no pedal edemaMusculoskeletal: decreased ROMNeuro/DIRECTOR OF SOLUTIONS ARCHITECTURE: no sensory deficitsSkin: dry, intact, normal color, [...] - 32.0 %) 6.5 L 4.9 L Newton % (Auto) (4.8 - 9.0 %) 7.5 9.3 H Eos % (Auto) (0.3 - 3.7 %) 0.1 L 0.0 L Baso % (Auto) (0.0 - 2.0 %) 0.1 0.1 Neut # (Auto) (2.0 - 7.6 x10 3/uL) 12.84 H 15.30 H Lymph # (Auto) (1.0 - 3.8 x10 3/uL) 0.97 L 0.89 L [place] # (Auto) (0.1 - 0.8 x10 3/uL) [...] pH (5.0 - 7.0) 5.0 Ur Specific [place] (1.005 - 1.030) 1.006 Urine Protein (NEGATIVE) [...] rheumatoidarthritis, frequent UTI was brought from the group home. She has been unwell for the past [...] be broadened to Zosyn and Vanco given group home placement. Concern is about ischemic bowel. Also [...] care time: Minutes: 35 at 1424 RPT #:[id number] OF REPORTPRProgress Knsa4871-03-97K83:07:00G.AMIJ16654368-6292IUQavpzbuly for patient ooygJZLMOQSLYPQLXQ2021-15-05H57:25:58 [facility] 2019-09-28 09:16:00 VDysmjgrvuy01980108VAumIJvp9HtavVp8PYh4O +oWa0SknUsWUx3mXS UgvZNib3/tmPQ4XVoVo6GAJcss1610-88-34O21:16:00 [facility] ([facility])Nephrology Progress NoteREPORT#:[id number] REPORT STATUS: SignedDATE:09/28/19 TIME: 0916 PATIENT: MAC AGUSTIN UNIT #: [id number]#: [id number] [address] AGE: 74 SEX: F ATTEND: [facility] AUTHOR: Rabia Aguilar MD * ALL edits [...] 121 20 119/56 80 99 04/18 0400 36.1 04/18 0345 84 16 98/53 69 100 04/18 0330 79 16 87/54 67 98 04/18 0300 79 16 100/53 75 98 04/18 0230 79 17 105/51 74 98 04/18 0200 80 15 109/56 80 98 04/18 0130 76 19 94/53 69 98 04/18 0100 76 16 113/56 81 99 04/18 0030 128 17 91/50 61 99 04/ 0000 36.6 04/ 0000 79 18 107/53 77 99 / 2330 77 19 106/53 76 100 09/26 2300 78 17 113/51 74 100 / 2230 75 16 101/53 74 100 / 2200 81 16 102/54 74 100 / 2130 83 16 95/55 68 100 / 2100 78 16 112/57 77 99 09/26 2030 73 18 89/51 64 97 09/26 2000 36.5 09/27 1999 High flow 10.540913 nasal cannula 09/26 2000 77 16 104/57 76 99 09/26 1930 75 14 101/52 73 100 / 1920 100 High flow 10.306929 nasal cannula 09/26 1900 79 17 106/51 74 100 / 1845 72 14 85/51 64 99 / 1830 72 16 88/51 65 100 / 1815 75 16 100 04/ 1814 86/41 59 / 1808 77 16 91/53 70 100 09/26 1806 81 18 102/51 74 91 / 1800 79 17 104/52 74 100 09/26 1745 79 17 97/52 70 100 09/26 1730 83 17 88/54 65 100 09/26 1715 82 16 100 / 1714 98/54 72 09/26 1700 85 20 95/50 70 100 09/26 1645 91 26 93 / 1644 103/49 71 /17 1631 116/55 76 /17 1630 86 33 83 / 1615 81 18 100 04/ 1614 105/57 77 / 1600 36.4 High flow 10.571893 nasal cannula 09/26 1600 86 19 98/56 71 100 04/ 1545 79 17 100 04 1544 69 04/ 1544 92/48 04 1530 81 17 127/57 82 100 09/26 1516 108/51 74 09/26 1515 84 19 91 04/ 1500 92 24 111/57 65 77 04 1446 87 21 115/56 80 99 09/26 [...] 104/45 65 09/26 1200 36.3 High flow 10.013517 nasal cannula 09/26 1200 86 26 109/55 79 93 09/26 1145 80 26 89 09/26 1141 112/49 71 09/26 1130 76 19 97/46 66 83 09/26 1115 82 25 95 09/26 1110 129/58 83 04/ 1100 73 24 118/71 88 93 09/26 1050 73 22 114/59 75 95 09/26 1030 73 28 112/60 78 04 1011 69 29 117/78 91 09/26 1001 [...] ONE IV (DC) Sodium Bicarbonate 75 ML .N22A36X IV (CKD) Sodium Chloride 1,000 MLVancomycin HCl [...] expansionAbdomen: softGenitourinary: ballard, urineExtremities: no edemaMusculoskeletal: normal inspectionNeuro/DIRECTOR OF SOLUTIONS ARCHITECTURE: altered mental statusSkin: dry ResultsFindings/Data:Laboratory Tests 09/26 [...] - 32.0 %) 6.5 L 4.9 L Newton % (Auto) (4.8 - 9.0 %) 7.5 9.3 H Eos % (Auto) (0.3 - 3.7 %) 0.1 L 0.0 L Baso % (Auto) (0.0 - 2.0 %) 0.1 0.1 Neut # (Auto) (2.0 - 7.6 x10 3/uL) 12.84 H 15.30 H Lymph # (Auto) (1.0 - 3.8 x10 3/uL) 0.97 L 0.89 L Newton # (Auto) (0.1 - 0.8 x10 3/uL) [...] Glucose and insulin drip at 1522 RPT #:[id number] OF REPORTPRProgress Ecok2678-42-16O29:16:00G.LXKM48222539-2814TUBpnhteqmp for patient rzvaYIFBIPOEEDRWQH6695-47-64H04:22:51 [facility] 2019-09-28 07:59:00 VEkhoigznqa83330450MeJRiG2YK38yOFMAqtp+s A3IcxkJDJ/AkSm5hs 6xopik7azbk73/hQKCXTW7VMrd1937-31-01A66:59:00 [facility] Prog.Note-VancomycinREPORT#:[id number] REPORT STATUS: SignedDATE:09/28/19 TIME: 0759 PATIENT: MAC AGUSTIN UNIT #: [id number]#: [id number] [address] AGE: 74 SEX: F ATTEND: [facility] AUTHOR: Yary Figueroa [facility] * ALL edits or amendments must be made on the electronic/computer document * Vancomycin VancomycinMedication Therapy:Vancomycin Goal trough: 15-20 mcg/mlIndication for treatment:EmpiricCurrent therapy:Vancomycin dosing per levelsDay of therapy:Day 3Weight: Actual weight (kg): 63.4VS and I/O:Vital Signs Date Temp Pulse Resp B/P B/P Mean Pulse Ox FiO2 09/25-09/27 33.1-37.3 69-132 12-60 65-226/34-144 44-179 73-100 72 hours ending at 0700 09/27 0700 09/26 0709/25 19009/25 07 1900Intake 1195.00 1108.00 2253.00TotalOutput 200 150 295TotalBalance 995.00 958.00 1958.00 Intake, 0HemodialysisIntake, IV 1195.00 1058.00 2253.00Intake, 50OralNumber 0 1BowelMovementsOutput, 0HemodialysisOutput, 200 150 295UrinePatient 63.4 kg 63.4 kg 61.4 kgWeightWeight Bed scale Bed scaleMeasurementMethod 72 Hour I O Total 09/27 0700 09/26 0709/25 07 Intake Total 2303.00 2253.00 Output Total 350 [...] DM2, RA, anxiety presented to ED from [facility] for concerns of abnormal labs,dehydration, NATHEN, suspect [...] post-HD levels 15-20 mcg/mL. at 0806 RPT #:[id number] OF REPORTPRProgress Etkg0256-49-25I30:59:00G.TBMD11931038-6123QKAxngwckhj for patient qhkfHXQYCBMZGYHBLO4884-28-91T48:06:22 [facility] 2019-09-27 13:28:00 BAiwxjscruy01814249Ny51e4+7A70ozGV9j3qhk mlfiV8ZUu0CLUdkUc Fa+pAksnNc1Eft2eHQN44jaD/o1714-73-50A13:28:00 [facility]Hospital[facility] Progress NoteREPORT#:[id number] REPORT STATUS: SignedDATE:09/27/19 TIME: 1328 PATIENT: MAC AGUSTIN UNIT #: [id number]#: [id number] [address] AGE: 74 SEX: F ATTEND: [facility] AUTHOR: Marisabel Chu DO * ALL edits or amendments must be made on the electronic/computer document * SubjectiveChief Complaint:Pt is demented, only says "no" repeatedly. Review of SystemsUnable to obtain due to:dementia, only says "no" Objective GeneralVS/I O:Vital Signs:Date Time Temp Pulse Resp B/P B/P Pulse O2 O2 Flow FiO2 Mean Ox Delivery Rate09/26 1301 88 30 112/64 82 88/ 1259 87 21 115/57 82 87/17 1246 122/85 49884/17 1245 80 26 9104/17 1230 89 25 96/54 72 9104/17 1215 80 22 23286/17 1212 104/45 6504/17 1200 97.3 High flow 10.853225 nasal mgixafu68/17 1200 86 26 109/55 79 9304/17 1145 [...] 21 130/66 8904/17 0921 84 24 142/85 33308/17 0901 83 20 134/99 24184/17 0846 75 19 137/60 8604/17 0830 79 18 127/59 8504/17 0816 87 30 121/57 7704/17 0800 High flow 10.786766 nasal dfjdiel26/17 0800 97.5 High flow 10.757692 nasal ufcaamy64/17 0800 83 21 139/59 81 9904/17 0746 79 21 122/57 82 9904/17 0744 22 140/62 89 43128/17 0742 80 21 132/58 84 38195/17 0740 81 20 131/91 105 22607/17 0731 88 24 141/60 86 9704/17 0715 82 20 130/63 91 76801/17 0712 84 21 123/56 80 50167/17 0710 84 20 121/59 85 53802/17 0709 83 21 119/53 76 00784/17 0700 88 25 145/64 92 42210/17 0400 98.3 80 21 122/58 79 97 High flow 10.775727 nasal szvdliu42/17 0350 96 High flow 11.973970 nasal /17 0016 92 Nasal 5.930370 wcqocbt85/17 0000 97.0 86 19 113/59 77 89 Nasal 5.546580 jrvvsub21/16 1999 Nasal 3.997078 irvmdpk75/16 2000 97.8 92 21 128/56 80 92 Nasal 3.836317 qjcingz81/16 1900 96 27 118/60 86 9204/16 1855 [...] 60 75/52 60 9504/16 1804 97 22 136/207 867 5431/16 1800 94 29 9604/16 1756 97 35 [...] 1715 95 32 9404/16 1711 97 54 226/322 163 7842/16 1706 98 38 183/069 416 9511/16 1700 97 37 113/54 78 9804/16 1655 [...] 98.1 94 32 125/54 77 94 Nasal 3.549919 wiaejgf79/16 1556 96 30 85/57 64 9204/16 1550 97 29 94/50 67 9704/16 1546 96 27 102/47 65 9804/16 1545 96 20 9804/16 1541 96 26 134/742 791 2191/16 1536 97 26 9704/16 1535 97 25 97/49 70 9604/16 1530 99 27 118/58 83 9604/16 1525 99 25 101/54 72 9704/16 1521 439 34 4901/16 1520 102 31 113/51 73 9604/16 1517 100 22 156/64 92 62231/16 1515 100 24 182/461 927 1356/16 1510 101 29 120/56 81 79528/16 1505 132 32 125/53 76 9804/16 1500 103 19 113/63 80 57264/16 1450 106 25 104/55 74 9604/16 1446 595 19 4847/16 1446 105 26 104/65 76 9804/16 1445 586 70 8055/16 1444 109 25 167/084 822 3507/16 1436 109 19 130/56 80 9904/16 1430 110 12 102/53 75 9904/16 1425 114 14 100/52 71 9904/16 1420 120 26 101/50 67 11017/16 1415 116 22 96/55 72 9804/16 1410 [...] (trace BLE), no clubbing, no cyanosisMusculoskeletal: normal inspectionNeuro/DIRECTOR OF SOLUTIONS ARCHITECTURE: PERRLA moves limbs independently but does not [...] (Auto) (14.0 - 32.0 %) 2.8 L Newton % (Auto) (4.8 - 9.0 %) 6.5 Eos % (Auto) (0.3 - 3.7 %) 1.1 Baso % (Auto) (0.0 - 2.0 %) 0.2 Neut # (Auto) (2.0 - 7.6 x10 3/uL) 19.09 H Lymph # (Auto) (1.0 - 3.8 x10 3/uL) 0.61 L Newton # (Auto) (0.1 - 0.8 x10 3/uL) [...] (Auto) (14.0 - 32.0 %) 4.8 L Newton % (Auto) (4.8 - 9.0 %) 3.2 L Eos % (Auto) (0.3 - 3.7 %) 0.1 L Baso % (Auto) (0.0 - 2.0 %) 0.1 Neut # (Auto) (2.0 - 7.6 x10 3/uL) 19.89 H Lymph # (Auto) (1.0 - 3.8 x10 3/uL) 1.06 Newton # (Auto) (0.1 - 0.8 x10 3/uL) [...] Impressions:RADIOLOGY - XR CHEST 1 V 09/26 0712 Report Impression - Status: SIGNED Entered: 09/27/2019 0756 IMPRESSION: No acute abnormality as above discussed. SL: KCSDC4PMYP47Nkajuoznix By: [email or web address] Elizabeth Alvarenga M.D. Diagnosis, Assessment Plan Free Text DxA P NotesFree text DxA P notes:Severe lactic acidosisSevere metabolic acidosisAcute renal failureHypocalcemiaHypomagnesemia?Septic shock vs lactic acidosis from metforminDehydrationHypothermiaDMHTNDementia with behavior disturbance Plan:Ms. Agustin is a 74 yo female with non-specific symptoms of not feeling well, poor appetite that was found to have abnormal labs at AL, sent to ED for evaluation. In the [...] scheduleCheck labs in am at 1338 RPT #:[id number] OF REPORTPRProgress Bbub9816-45-85B83:28:00G.FPDF49376433-5903OZCofrcavwa for patient yubfTHRIMADXNNTMXZ0805-39-31W18:38:52 [facility] 2019-09-27 11:45:00 AKiqruowqnn26562430dQBCwvn2nnUsFwZkvqvHR gODN8BO75r0IVEbru amw2JxM8ckkd+WAPcA+iNAwABp5975-48-30K16:45:[address] [facility])Pharmacy Prog.Note-VancomycinREPORT#:[id number] REPORT STATUS: SignedDATE:09/27/19 TIME: 1145 PATIENT: MAC AGUSTIN UNIT #: [id number]#: [id number] [facility] AGE: 74 SEX: F ATTEND: Joel Myers MDA AUTHOR: Melissa Far[facility] * ALL edits or amendments must be [...] Intake Total 2253.00 Output Total 275 Balance 1977. Labs:Laboratory Test : 09/26 09/26 09/25 09/25 [...] M.D.RADIOLOGY - XR CHEST 1 V 09/26 7234 Report Impression - Status: SIGNED Entered: 09/27/2019 0756 IMPRESSION: No acute abnormality as above discussed. SL: KBELY5BAIG72Axkhcpkrco By: [email or web address] - Gian Alvarenga M.D. Treatment plan: consult, change regimenRegimen:Ms. Agustin is a 74 yo female with dementia, DM2, Chronic pain, frequent UTI, DM2, RA, anxiety presented to ED from [facility] for concerns of abnormal labs,dehydration, NATHEN, suspect [...] is on acute HD per nephro. BUN/SCr 16/1.2, improved, NATHEN resolving, est CrCl 30 mL/min. [...] * Ordered repeat pre-HD VRL for tomorrow 3 AM; will be prior to 3rd dose of vancomycin. * Pharmacy will continue to follow and adjust regimen for goal post-HD levels 15-20 mcg/mL. at 1206 RPT #:[id number] OF REPORTPRProgress Eigd8112-24-24W86:45:00G.TOEO07977914-4689GMUbhnqfxvg for patient lnubSOIZIRTQBVFHTP0662-80-87W35:06:25 [facility] 2019-09-27 10:48:00 LBgrkrzlile618111316TAcKobeoN3HgitJEkQYz +N6n0StCgi+/Q25FY 2EJqKTolHYiQJSsXp3Sv+JDFBa6747-69-36S94:48:00 [facility] ([facility])Critical Care Progress NoteREPORT#:[id number] REPORT STATUS: SignedDATE:09/27/19 TIME: 1048 PATIENT: MAC AGUSTIN UNIT #: [id number]#: [id number] [address] AGE: 74 SEX: F ATTEND: [...] nasal cannula 09/26 0800 O2 Flow Rate 10.261035 09/26 0800 Temp 97.5 09/26 0800 Pulse [...] (Auto) (14.0 - 32.0 %) 2.8 L Newton % (Auto) (4.8 - 9.0 %) 6.5 Eos % (Auto) (0.3 - 3.7 %) 1.1 Baso % (Auto) (0.0 - 2.0 %) 0.2 Neut # (Auto) (2.0 - 7.6 x10 3/uL) 19.09 H Lymph # (Auto) (1.0 - 3.8 x10 3/uL) 0.61 L Newton # (Auto) (0.1 - 0.8 x10 3/uL) [...] (Auto) (14.0 - 32.0 %) 4.8 L Newton % (Auto) (4.8 - 9.0 %) 3.2 L Eos % (Auto) (0.3 - 3.7 %) 0.1 L Baso % (Auto) (0.0 - 2.0 %) 0.1 Neut # (Auto) (2.0 - 7.6 x10 3/uL) 19.89 H Lymph # (Auto) (1.0 - 3.8 x10 3/uL) 1.06 Newton # (Auto) (0.1 - 0.8 x10 3/uL) [...] No acute abnormality as above discussed. SL: VDASQ4OYHT53Gdphkzvhbw By: [email or web address] Elizabeth Alvarenga M.D. Free Text Obj NotesFree Text [...] rheumatoidarthritis, frequent UTI was brought from the group home. She has been unwell for the past [...] be broadened to Zosyn and Vanco given group home placement. Concern is about ischemic bowel. Also [...] care time 31 minutes at 1251 RPT #:[id number] OF REPORTPRProgress Bphr3817-04-19E78:48:00G.BAUP63728331-1182TXVylsbzeho for patient rkjqUMUBSRYZRHPHLU0963-44-12S05:51:18 [facility] 2019-09-27 07:11:00 YZpkmvpilyf74224473zSpevLYzr4MeJs/tLzduC wOUojZo7S2gKoBe4j PQMelkT52eG0FlHW8dMYL7zVZS2110-88-89W81:11:00 [facility] Progress NoteREPORT#:[id number] REPORT STATUS: SignedDATE:09/27/19 TIME: 07 PATIENT: MAC AGUSTIN UNIT #: [id number]#: [id number] [address] AGE: 74 SEX: F ATTEND: Joel Myers [facility] AUTHOR: Rabia Aguilar MD * ALL edits [...] Ox Delivery Rate09/26 0350 96 High flow 11.727784 nasal edhmflr59/ 0016 92 Nasal 5.680846 zrxpukr8309/26 1999 Nasal 3.992981 cywukmw44/16 1999 36.6 92 21 128/56 80 92 Nasal 3.076757 amyebhn25/16 1900 96 27 118/60 86 9204/16 1855 [...] 60 75/52 60 9504/16 1804 97 22 136/119 254 3547/16 1800 94 29 9604/16 1756 97 35 [...] 95 32 9404/16 1711 97 54 226/058 222 5598/16 1706 98 38 183/584 299 0224/16 1700 97 37 113/54 78 9804/16 1655 [...] 36.7 94 32 125/54 77 94 Nasal 3.276795 rafzfed12/16 1556 96 30 85/57 64 9204/16 1550 97 29 94/50 67 9704/16 1546 96 27 102/47 65 9804/16 1545 96 20 9804/16 1541 96 26 134/712 700 7287/16 1536 97 26 9704/16 1535 97 25 97/49 70 9604/16 1530 99 27 118/58 83 9604/16 1525 99 25 101/54 72 9704/16 1521 177 38 5076/16 1520 102 31 113/51 73 9604/16 1517 100 22 156/64 92 84803/16 1515 100 24 182/721 585 7115/16 1510 101 29 120/56 81 66480/16 1505 132 32 125/53 76 9804/16 1500 103 19 113/63 80 98872/16 1450 106 25 104/55 74 9604/16 1446 124 93 7831/16 1446 105 26 104/65 76 9804/16 1445 311 00 1109/16 1444 109 25 167/958 338 8261/16 1436 109 19 130/56 80 9904/16 1430 110 12 102/53 75 9904/16 1425 114 14 100/52 71 9904/16 1420 120 26 101/50 67 79992/16 1415 116 22 96/55 72 9804/16 1410 [...] 1315 115 19 91/45 65 9904/16 1312 609 70 6459/16 1300 115 21 108/52 75 9904/16 1245 114 19 104/53 76 9904/16 1240 114 20 97/51 71 9804/16 1235 113 20 93/55 71 9904/16 1230 110 25 86/47 62 9804/16 1225 109 21 80/41 55 9804/16 1222 108 22 81/40 57 9904/16 1220 106 31 74/39 51 9904/16 1215 106 21 90/54 69 38355/16 1212 101 28 84/46 60 9904/16 1210 102 25 86/49 63 9904/16 1205 106 21 95/55 71 9804/16 1200 35.904/16 1200 103 21 92/53 70 9904/16 1159 104 21 100/54 73 9904/16 1150 105 23 81/45 59 9804/16 1145 106 34 83/46 58 11965/16 1140 105 21 89/51 66 66715/16 1135 118 21 100/54 71 00297/16 1130 106 20 97/52 71 9904/16 1125 [...] 98 23 9804/16 0900 33.404/16 0815 Nasal 3.786872 /16 0720 101 18 77/50 59 24 hour [...] expansionAbdomen: softGenitourinary: ballard, urineExtremities: no edemaMusculoskeletal: normal inspectionNeuro/DIRECTOR OF SOLUTIONS ARCHITECTURE: altered mental statusSkin: dry ResultsFindings/Data:Laboratory Tests 09/26 [...] - 0.045 ng/mL) 0.033 09/25 09/25 0345 0345 Chemistry Sodium (134 [...] - 32.0 %) 2.8 L 4.8 L Newton % (Auto) (4.8 - 9.0 %) 6.5 3.2 L Eos % (Auto) (0.3 - 3.7 %) 1.1 0.1 L Baso % (Auto) (0.0 - 2.0 %) 0.2 0.1 Neut # (Auto) (2.0 - 7.6 x10 3/uL) 19.09 H 19.89 H Lymph # (Auto) (1.0 - 3.8 x10 3/uL) 0.61 L 1.06 Newton # (Auto) (0.1 - 0.8 x10 3/uL) [...] (Auto) (14.0 - 32.0 %) 4.8 L Newton % (Auto) (4.8 - 9.0 %) 12.3 H Eos % (Auto) (0.3 - 3.7 %) 0.0 L Baso % (Auto) (0.0 - 2.0 %) 0.2 Neut # (Auto) (2.0 - 7.6 x10 3/uL) 21.47 H Lymph # (Auto) (1.0 - 3.8 x10 3/uL) 1.26 Newton # (Auto) (0.1 - 0.8 x10 3/uL) [...] pH (5.0 - 7.0) 5.0 Ur Specific [place] (1.005 - 1.030) 1.011 Urine Protein (NEGATIVE) [...] Report Impression - Status: SIGNED Entered: 09/26/2019 880 IMPRESSION: Mildly hyperinflated, but clear lungs. Lucency beneath the left hemidiaphragm likely related to a mildlydilated gas-filled stomach. An upright view of the abdomen would beconfirmatory and better exclude pneumoperitoneum. SL: TPAINTER-HImpression By: Bridget Edward M.D.RADIOLOGY - XR CHEST 1 V 09/26 531 Report Impression - Status: SIGNED Entered: 09/26/2019 [...] No acute abnormality as above discussed. SL: JVVYT9WHDF77Lniuvmrtma By: [email or web address] - Gian Alvarenga M.D. Laboratory Tests 09/26 [...] %) 2.8 L 4.8 L 4.8 L Newton % (Auto) (4.8 - 9.0 %) 6.5 3.2 L 12.3 H Eos % (Auto) (0.3 - 3.7 %) 1.1 0.1 L 0.0 L Baso % (Auto) (0.0 - 2.0 %) 0.2 0.1 0.2 Neut # (Auto) (2.0 - 7.6 x10 3/uL) 19.09 H 19.89 H 21.47 H Lymph # (Auto) (1.0 - 3.8 x10 3/uL) 0.61 L 1.06 1.26 Newton # (Auto) (0.1 - 0.8 x10 3/uL) [...] RN and HD nurse at 1229 RPT #:[id number] OF REPORTPRProgress Rtdo2168-68-90X38:11:00G.DZKY64707373-6487MXBipukdbtf for patient aczpLLLYMPBTYKMVUJ0059-11-14C60:29:59 [facility] 2019-09-26 12:01:00 GMxwcwaslti34685285RZvojDSqQLwLtpAZ0vBeX CWSARCd+biY8F2dK6 qCkoH6FxZxeoENIO3kFMFV9oOh0667-31-78K68:01:00 [facility] ([facility])DT Operative NoteREPORT#:[id number] REPORT STATUS: SignedDATE:09/26/19 TIME: 1201 PATIENT: MAC AGUSTIN UNIT #: [id number]#: [id number] [address] AGE: 74 SEX: F ATTEND: [...] prepped and draped in usual sterile fashion. [facility] already has a RIJ CVL. A guidewire [...] less than 5 cc. at 1211 RPT #:[id number] OF REPORTOPOperative ihlivr1564-67-02J50:01:00G.PJNG74009024-4214BGPhenkruay for patient yxkuJPNOGIETHZSRZJ2990-44-68Z93:12:16 [facility] 2019-09-26 11:48:00 DXcxuxgiykz18226137FpR1XQLL2ZiQhO2w4bln/ 6Z3dNLii00MNUov27 1kK5ks9NWPf9hpc0RRGKK2fjDP2282-24-24X51:48:00 [facility] ([facility])Pharmacy Prog.Note-VancomycinREPORT#:[id number] REPORT STATUS: SignedDATE:09/26/19 TIME: 1148 PATIENT: MAC AGUSTIN UNIT #: [id number]#: [id number] [facility] AGE: 74 SEX: F ATTEND: Joel Myers [facility] AUTHOR: Kathia Varela martha * ALL edits or amendments must be made on the electronic/computer document * Vancomycin VancomycinTreatment plan: consult, initiation of therapyRegimen:Ms. Agustin is a 74 yo female with dementia, DM2, Chronic pain, frequent UTI, DM2, RA, anxiety presented to ED from [facility] for concerns of abnormal labs,dehydration, NATHEN, suspect [...] as appropriate. Appreciate consult, at 1149 RPT #:[id number] OF REPORTPRProgress Jcut9141-24-76K85:48:00G.YQJP84356327-4956YAHlprzpggw for patient mmmnBUYPKTXRFCXMSJ4251-07-17J97:49:12 [facility] 2019-09-26 11:17:00 CDioqeltrde33632035GChpfkFI++64SD1zFgOEL 6aA2zZnw0xc/N2+Zj df6fbl6ZvokUMTsIYyaQ84f39V4396-42-36F29:17:00 [facility] ([facility])Clinical NoteREPORT#:[id number] REPORT STATUS: SignedDATE:09/26/19 TIME: 1117 PATIENT: MAC AGUSTIN UNIT #: [id number]#: [id number] [address] AGE: 74 SEX: F ATTEND: Joel Myers [facility] AUTHOR: Rabia Aguilar MD * ALL edits or amendments must be made on the electronic/computer document * Clinical NoteNote:HDIndication: NATHEN/Severe acidosis/probable Metformin ToxicityHD 5 hours3 .5 KHCO3 40No KCMH316AS 700Patient seen and evaluated during HD, discussed with HD nurse at 1719 RPT #:[id number] OF REPORTCLClinical rfcu1707-53-05F13:17:00G.BJWL04121695-7955BFUawmizfdv for patient yoxwKIVDLAUITVGXWK9078-04-16M99:20:17 [facility] 2019-09-26 09:51:00 RLgstfeddkk96732034wrx7ixtbQnDUoWUb/O4Ib 9Vf96eJasZlnt0PxH h8LU9AYn09vvVOsw4NTbsG3O0C1164-29-31U34:51:00 [facility] ([facility])Hospitalist History PhysicalREPORT#:[id number] REPORT STATUS: SignedDATE:09/26/19 TIME: 950 PATIENT: MAC AGUSTIN UNIT #: [id number]#: [id number] [address] AGE: 74 SEX: F ATTEND: Joel Myers [facility] AUTHOR: Marisabel Chu DO * ALL edits or amendments must be made on the electronic/computer document * History of Present Illness HPIChief complaint:UnwellHPI:Ms. Agustin is a 74 yo female with dementia, DM2, Chronic pain, anxiety presented to ED from [facility] for concerns of abnormal labs and dehydration. Two daughters at bedside state that AL has told them their mother has not [...] 101 18 77/50 59 09/25 0452 Nasal 3.166609 cannula 09/25 0439 91.5 09/25 0339 113 [...] (trace BLE), no clubbing, no cyanosisMusculoskeletal: normal inspectionNeuro/DIRECTOR OF SOLUTIONS ARCHITECTURE: PERRLA moves limbs independentlySkin: dry, intact, normal [...] - 0.045 ng/mL) 0.033 09/25 09/25 0345 0345 Chemistry Sodium (134 [...] pH (5.0 - 7.0) 5.0 Ur Specific [place] (1.005 - 1.030) 1.011 Urine Protein (NEGATIVE) [...] Report Impression - Status: SIGNED Entered: 09/26/2019 0097 IMPRESSION: Mildly hyperinflated, but clear lungs. Lucency beneath the left hemidiaphragm likely related to a mildlydilated gas-filled stomach. An upright view of the abdomen would beconfirmatory and better exclude pneumoperitoneum. SL: TPAINTER-HImpression By: Bridget Edward M.D.RADIOLOGY - XR CHEST 1 V 09/26 531 Report Impression - Status: SIGNED Entered: 09/26/2019 [...] was found to have abnormal labs at AL, sent to ED for evaluation. In the [...] heparin for DVT prophylaxsis at 1017 RPT #:[id number] OF REPORTHPHistory and physical jlyefnwwino1025-73-33K11:51:00G.MBOR17557344-9652OCKsumvm ble for patient yaibFTHDUXKNFVQZKD7153-33-49T20:17:38 [facility] 2019-09-26 08:35:00 WJdgqbwjskj97021791THzcdGFJ+YEVeRdUUc46W SfDPiMiWuEvh/U3rq nzoK8Q3YC6vXwqRdiCx3JIfQsW5181-45-17O72:35:[address] [facility])Nephrology Consultation NoteREPORT#:[id number] REPORT STATUS: SignedDATE:09/26/19 TIME: 0835 PATIENT: MAC AGUSTIN UNIT #: [id number]#: [id number] [address] AGE: 74 SEX: F ATTEND: Joel Myers AUTHOR: Rabia Aguilar MD * ALL edits or amendments must be made on the electronic/computer document * History of Present IllnessRequesting clinician: Joel Myers for consult:Elevated Creatinine/severe acidosisChief complaint:Patient is unwell with abnormal labsHPI:Patient seen and evaluated, discussed with care team, 72-year-old [place] [facility] with history of diabetes mellitus type 2, dementia, frequent falls, rheumatoid arthritis, hypertension and frequent UTI who was sent to the emergency room via EMS from [facility] for being unwell and abnormal laboratories showing [...] (DEXTROSE 10% IN IV 09/26 528 WATER) Dextrose/Water 250 ML ASDIR PRN 09/25 [...] 09/25 0730 AC (HUMALOG) SUBQ 09/26 0529 Insulin Human Regular 10 UNITS ONCE ONE 09/25 0730 CAN (HUMAN INSULIN REG) IV 09/25 0731 [...] 101 18 77/50 59 09/25 0452 Nasal 3.717501 cannula 09/25 0439 33.1 09/25 0339 113 [...] expansionAbdomen: softGenitourinary: ballard, urineExtremities: no edemaMusculoskeletal: normal inspectionNeuro/DIRECTOR OF SOLUTIONS ARCHITECTURE: altered mental statusSkin: dry ResultsFindings/Data:Laboratory Tests 09/25 [...] Delivery Device Cannula Room Air Laboratory Tests 04/09/25 1000 0730 0726 0625 0355Chemistry Sodium (134 [...] (Auto) (14.0 - 32.0 %) 4.8 L Newton % (Auto) (4.8 - 9.0 %) 12.3 H Eos % (Auto) (0.3 - 3.7 %) 0.0 L Baso % (Auto) (0.0 - 2.0 %) 0.2 Neut # (Auto) (2.0 - 7.6 x10 3/uL) 21.47 H Lymph # (Auto) (1.0 - 3.8 x10 3/uL) 1.26 Newton # (Auto) (0.1 - 0.8 x10 3/uL) [...] pH (5.0 - 7.0) 5.0 Ur Specific [place] (1.005 - 1.030) 1.011 Urine Protein (NEGATIVE) [...] SCAN - CT CHEST W/O CONTRAST 09/25 0446 Report Impression - Status: SIGNED [...] - CT ABD PELVIS W/O CONT 09/25 0560 Report Impression - Status: SIGNED Entered: 09/26/2019 [...] cholecystectomy. SL: TPAINTER-HImpression By: Bridget Edward M.D. Laboratory Tests 09/25 0452 Blood Gas Puncture Site [...] Peptide (0 - 100 304.2 HPG/ML) 09/25 1975 Chemistry Sodium (134 - 147 mEq/L) 144 [...] pH (5.0 - 7.0) 5.0 Ur Specific [place] (1.005 - 1.030) 1.011 Urine Protein (NEGATIVE) [...] SCAN - CT CHEST W/O CONTRAST 09/25 0446 Report Impression - Status: SIGNED [...] - Amadeo Edward M.D. Laboratory Tests 09/25 0452 Blood Gas Puncture Site [...] pH (5.0 - 7.0) 5.0 Ur Specific [place] (1.005 - 1.030) 1.011 Urine Protein (NEGATIVE) [...] will proceed with HD at 1122 RPT #:[id number] OF REPORTOROjdxltofktpg0737-70-39R46:35:00G.PPKQ04211566- 0194AVAvailable for patient xwwaKUIFUURORPDEBQ9566-47-08I23:22:39 [facility] 2019-09-26 07:00:00 XGlhedhngzd09384681epP5x3xROeOodq+POSOMN DK6vCuuT0NheKP6+o 2toybmMvy8uoUE8Ztq0x+IrtAT3020-83-16I71:00:00 [facility] ([facility])Critical Care Consult NoteREPORT#:[id number] REPORT STATUS: SignedDATE:09/26/19 TIME: 0700 PATIENT: MAC AGUSTIN UNIT #: [id number]#: [id number] [address] AGE: 74 SEX: F ATTEND: [...] rheumatoidarthritis, frequent UTI was brought from the group home. She has been unwell for the past [...] be broadened to Zosyn and Vanco given group home placement. Concern is about ischemic bowel. Also [...] Nasal cannula 09/26 451 O2 Flow Rate 3.264511 09/25 045 Temp 33.1 09/25 0439 Pulse [...] cyanosis, no edema, no pedal edemaMusculoskeletal: decreased ROMNeuro/DIRECTOR OF SOLUTIONS ARCHITECTURE: no sensory deficits Results:Findings/Data:Laboratory Tests 09/26/19 0345:[Embedded [...] pH (5.0 - 7.0) 5.0 Ur Specific [place] (1.005 - 1.030) 1.011 Urine Protein (NEGATIVE) [...] RECD09/25 0345 BLOOD: Blood Culture - REC 034 NASAL: [...] rheumatoidarthritis, frequent UTI was brought from the group home. She has been unwell for the past [...] be broadened to Zosyn and Vanco given group home placement. Concern is about ischemic bowel. Also [...] DVT and GI prophylaxis Israel Vaughan MD [facility].25 AMConsultants: critical care/bread pan greaser, hospitalist, nephrologyPlan discussed with: nurseCritical care time: Minutes: 65 Code Status/Resusc. DiscussionCode status: do not resuscitate at 0726 RPT #:[id number] OF REPORTFKAcihvzorzfky7636-79-88T34:00:00G.DZJI33244617- 0077AVAvailable for patient twvkSKTAWGBLKOMXDT4930-94-39P18:27:13 [facility] 2019-09-26 07:00:00 VMwkubzgymg90007414rlWKFD0Y6vv2TWTpGvWrA AGDWLOi/oaT0cQaUu hI1pvCyU58rWzlRqPVGQxSkUQh5139-49-07U94:00:00 [facility] ([facility])Critical Care Consult NoteREPORT#:[id number] REPORT STATUS: SignedDATE:09/26/19 TIME: 0700 PATIENT: MAC AGUSTIN UNIT #: [id number]#: [id number] [address] [birth year] AGE: 74 SEX: F ATTEND: Joel Myers MDA AUTHOR: Israel Vaughan MD * ALL edits [...] rheumatoidarthritis, frequent UTI was brought from the group home. She has been unwell for the past [...] be broadened to Zosyn and Vanco given group home placement. Concern is about ischemic bowel. Also [...] INJECTION) IM 09/26 0524 Allergies:Coded Allergies:penicillamine (UNKNOWN 04/16/20) Review of SystemsUnable to obtain due to:Patient is profoundly acidotic both metabolic and lactic, opens eyes, answers yes and no questions but did not follow commands very well. Objective Physical Exam:VS/I O:Last Documented: Result Date Time O2 Delivery Nasal cannula 09/26 451 O2 Flow Rate 3.618826 09/26 451 Temp 33.1 09/25 043 Pulse [...] cyanosis, no edema, no pedal edemaMusculoskeletal: decreased ROMNeuro/DIRECTOR OF SOLUTIONS ARCHITECTURE: no sensory deficits Results:Findings/Data:Laboratory Tests 09/26/19 0345:[Embedded [...] pH (5.0 - 7.0) 5.0 Ur Specific [place] (1.005 - 1.030) 1.011 Urine Protein (NEGATIVE) [...] Report Impression - Status: SIGNED Entered: 09/26/2019 9027 IMPRESSION: Mildly hyperinflated, but clear lungs. Lucency [...] rheumatoidarthritis, frequent UTI was brought from the group home. She has been unwell for the past [...] be broadened to Zosyn and Vanco given group home placement. Concern is about ischemic bowel. Also [...] DVT and GI prophylaxis Israel Vaughan MD [facility].25 AMConsultants: critical care/bread pan greaser, hospitalist, nephrologyPlan discussed with: nurseCritical care time: [...] All questions were answered at 0906 [facility] #:[id number] OF REPORTNDMdfxwrasyeqe5983-00-62T11:00:00G.QVRU47389660- 0077AVAvailable for patient zxpzTCPBRNRBTQLYMQ2845-07-38Q51:06:38 [facility] 2019-09-26 07:00:00 ZTduqmizcco110808042lcf9j8lnnr3+IdXMVaPk YFBKqViKCV0CX/Cxe A1FKNc2wEoi0B/azLxKxcnXqFc5007-32-81P85:00:00 [facility] ([facility])Critical Care Consult NoteREPORT#:[id number] REPORT STATUS: SignedDATE:09/26/19 TIME: 0700 PATIENT: MAC AGUSTIN UNIT #: [id number]#: [id number] ROOM/BED: EfraínX168-5FEZ: 47 AGE: 74 SEX: F ATTEND: Joel [...] rheumatoidarthritis, frequent UTI was brought from the group home. She has been unwell for the past [...] be broadened to Zosyn and Vanco given group home placement. Concern is about ischemic bowel. Also [...] DC 09/25 (Calcium Gluconate) IV 09/25 043 0512 Sodium Chloride 50 ML (Sodium Chloride [...] Nasal cannula 09/26 451 O2 Flow Rate 3.168620 09/25 045 Temp 33.1 09/25 438 Pulse Ox 95 09/25 033 B/P 139/94 09/25 338 B/P Mean 109 09/25 033 Pulse 113 09/25 0339 Resp 26 09/25 338 24 hour I O ending at 0700: 04/16 0700 09/24 1900 Intake Total Output Total [...] cyanosis, no edema, no pedal edemaMusculoskeletal: decreased ROMNeuro/DIRECTOR OF SOLUTIONS ARCHITECTURE: no sensory deficits Results:Findings/Data:Laboratory Tests 09/26/19 0345:[Embedded [...] Coagulation INR (0.8 - 1.2) 1.1 PTT ([place]) (25.0 - 39.5 Seconds) 22.2 L PT [...] pH (5.0 - 7.0) 5.0 Ur Specific [place] (1.005 - 1.030) 1.011 Urine Protein (NEGATIVE) [...] 545 Report Impression - Status: SIGNED Entered: 09/26/201912 IMPRESSION: Mild to moderate diffuse atrophy is [...] rheumatoidarthritis, frequent UTI was brought from the group home. She has been unwell for the past [...] be broadened to Zosyn and Vanco given group home placement. Concern is about ischemic bowel. Also [...] DVT and GI prophylaxis Israel Vaughan MD [facility].25 AMConsultants: critical care/bread pan greaser, hospitalist, nephrologyPlan discussed with: nurseCritical care time: [...] to family about HD. at 1210 RPT #:[id number] OF REPORTXYVxunzjfqvari9187-69-90P08:00:00G.CYOB88875400- 0077AVAvailable for patient pccwRJZPMYYFMLEZJL9204-87-42O04:11:21 [facility] 2019-09-26 07:00:00 NGwurhgveor066019985ypg2o9sbvs0+IdXMVaPk KBZOcTrQZN6SS/Cxe Z1IPSb8zXqo8B/qhXvAelbAkWi2128-85-44G47:00:00 [facility] ([facility])Critical Care Consult NoteREPORT#:[id number] REPORT STATUS: SignedDATE:09/26/19 TIME: 0700 PATIENT: MAC AGUSTIN UNIT #: [id number]#: [id number] ROOM/BED: S449-1ZZB: 47 AGE: 74 SEX: F ATTEND: [facility] AUTHOR: Israel Vaughan MD * ALL edits [...] rheumatoidarthritis, frequent UTI was brought from the group home. She has been unwell for the past [...] be broadened to Zosyn and Vanco given group home placement. Concern is about ischemic bowel. Also [...] Nasal cannula 09/26 451 O2 Flow Rate 3.867767 09/25 045 Temp 33.1 09/25 0439 Pulse [...] cyanosis, no edema, no pedal edemaMusculoskeletal: decreased ROMNeuro/DIRECTOR OF SOLUTIONS ARCHITECTURE: no sensory deficits Results:Findings/Data:Laboratory Tests 09/26/19 0345:[Embedded [...] Coagulation INR (0.8 - 1.2) 1.1 PTT ([place]) (25.0 - 39.5 Seconds) 22.2 L PT [...] LARGE PLATELETS Poikilocytosis 2+ Laboratory Tests 09/25 9215 Urines Urine Color (YEL/STRAW) YELLOW Urine Appearance (CLEAR) SL CLOUDY Urine pH (5.0 - 7.0) 5.0 Ur Specific [place] (1.005 - 1.030) 1.011 Urine Protein (NEGATIVE) [...] 0546 Report Impression - Status: SIGNED Entered: 09/26/2019611 [...] rheumatoidarthritis, frequent UTI was brought from the group home. She has been unwell for the past [...] be broadened to Zosyn and Vanco given group home placement. Concern is about ischemic bowel. Also [...] DVT and GI prophylaxis Israel Vaughan MD [facility] FCCP04/7.25 AMConsultants: critical care/bread pan greaser, hospitalist, nephrologyPlan discussed with: nurseCritical care time: [...] to family about HD. at 1210 RPT #:[id number] OF REPORTABHqcxgkmfjjie3464-08-40V63:00:00G.[id number]- 0077AVAvailable for patient zglcURWGJXNXRDUQFQ2332-17-17E90:11:21 [facility] 2019-09-26 03:42:00 [id number]/QYHo VfqHJDPG0ZvaWcOT7 QX6LW9616/MhaghtojRmNtLHdh0795-36-54S12:42:00 [facility] ([facility])EMERGENCY PROVIDER REPORTREPORT#:[id number] REPORT STATUS: SignedDATE:09/26/19 TIME: 341 PATIENT: MAC AGUSTIN UNIT #: [id number]#: [id number] [facility]AGE[facility] 74 SEX: F PCP PHYS: No Primary or Family PhysicianSERVICE AUTHOR: Facundo Phan MD * ALL edits or amendments must be made on the electronic/computer document * HPI-General Illness Free Text HPI NotesFree Text HPI [id number] female arrives with EMS for primary concern of dehydration.Patient arrived from [facility].Patient has history of dementia review of system is not available. EMS reports that patient has been feeling unwell for some time, group home has collected blood work and discovered that patient was in acute renal failure with elevated potassium of 5.0Patient has past medical history of diabetes type 2Alzheimer's type dementiaChronic painAnxietyMigraine headacheFrequent fallsIncontinence of bowel and bladderRheumatoid arthritisFrequent UTIsEssential hypertensionDementia with behavioral disturbances [facility] records states that patient has a DNR status. GeneralConfirmed Patient YesPatient Type New patientInitial Greet Date/Time 09/26/19338PCROSSANAubwilver Calvert MD COVID-19 RiskCDC COVID RiskReports Age 65 or older, Reports Signif co-morbidity, Denies Exp to person + forCOVID, Denies Exp to PUI, Denies Travel from affected area, Denies Lower resp symptoms, Denies Fever PresentationChief Complaint __ (Dehydration , renal failure)Hx Obtained From EMS, [facility] records Review of Systems ROS StatementsAll systems rev neg except as marked.Unable to Obtain ROS Dementia, Medical condition Past Medical History - AdultStated Complaint DEHYDRATION,AllergiesCoded Allergies:penicillamine (UNKNOWN 09/26/19) Physical Exam Vital SignsVital SignsFirst Documented: Result Date Time Pulse Ox 95 09/25 0339 B/P 139/94 09/25 0339 B/P Mean 109 09/25 0339 O2 Delivery Room air 09/25 338 Pulse 113 09/25 0339 Resp 09/25 033 Temp 33.1 09/25 0439 O2 Flow Rate 3.472228 09/25 0452 Last Documented: Result Date Time O2 Delivery Nasal cannula 09/26 451 O2 Flow Rate 3.859822 09/25 045 Temp 33.1 09/25 043 Pulse Ox 95 09/25 0339 B/P 139/94 [...] elderly female-Signs of moderate dementia-Cooperative with exam-Uncomfortable lsxmzcxec-Yrq-guarfynzyYXBR- Atraumatic, normocephalicNECK- Supple, FROMEYES- EOMI, conjunctiva normalENT: [...] pH (5.0 - 7.0) 5.0 Ur Specific [place] (1.005 - 1.030) 1.011 Urine Protein (NEGATIVE) [...] Microbiology: Date/Time Procedure - Status Source Growth 09/26 399 Blood Culture - RECD BLOOD 09/25 344 Blood Culture - RECD BLOOD 09/25 034 MRSA DNA Surveillance Screen - ORD NASAL Recent Impressions:RADIOLOGY - XR CHEST 1 V 09/255 Report Impression - Status: SIGNED Entered: 09/26/2019 [...] aspirate performed, Oxygen administered, Pulse oximeter applied, manager monitoring applied, Hand hygiene observed, Standard surgical scrub, [...] Age: Answers one correctly 1 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 Performs both correctly 0 Horizontal EO movements [...] DC 09/25 Sodium Chloride 50 ML IV 04 0433 0513 Sodium Bicarbonate 150 MEQ X1ED [...] ConsultationConsultation 1 Referral/Consult Name Israel Vaughan MD Staff Air Tactical Officer Called Mink Slicer Requested Call Time 0646 Requested Call Date 09/26/19 Call Returned Call returned Call Returned Time 0646 Call Returned Date 09/26/19 Staff Air Tactical Officer Will see patient, Agrees with eval, Agrees with plan, EVALUATED PATIENT IN ER Consultation 2 Referral/Consult Name; Ty Diaz MD Staff Air Tactical Officer Called General Surgery Requested Call Time 0647 Requested Call Date 09/26/19 Call Returned Call returned Call Returned Time 0647 Call Returned Date 09/26/19 Staff Air Tactical Officer Will see patient, Agrees with eval, Agrees with planConsultation 3 Referral/Consult Name; Sofia Vaughan MD Staff Air Tactical Officer Called Nephrology Requested Call Time 0648 Requested Call Date 09/26/19 Call Returned Call returned Call Returned Time 0648 Call Returned Date 09/26/19 Staff Air Tactical Officer Will see patient, Agrees with eval, Agrees with plan Patient Discharge Departure Vital Signs/ConditionVital SignsFirst Documented: Result Date Time Pulse Ox 95 09/25 0339 B/P 139/94 09/25 0339 B/P Mean 109 09/25 0339 O2 Delivery Room air 09/25 033 Pulse 113 09/25 0339 Resp 26 09/25 0339 Temp 33.1 09/25 0439 O2 Flow Rate 3.272063 09/25 0452 Last Documented: Result Date Time O2 Delivery Nasal cannula 09/26 451 O2 Flow Rate 3.605956 09/25 045 Temp 33.1 09/25 0439 Pulse [...] Notes Summary 74-year-old female brought in from group home for multiple problemsI spoke with the family and confirmed that patient is DNR. Work-up revealed-Severe ttiifeak-Pnvagvzygato-Ueevq of sksqnx-KZO-Agtcon acid of 14.8-Acute renal nwxysxp-Uyaqkisyrexhb-Rgyfcnzvtqasjr-High anion gap irmrwflg-Qinxmsuactxbesd-Vxeryjm on CT scan-Incidentally patient has findings of prior cholecystectomy-Moderately dilated stomach representing potential gastritis-Diffuse wnznepxd-Ebixmjoifjm-Bgzid hypoactive delirium PlanElectrolytes were replaced ALEX placed [...] the management of the patient. at [address]RPT #:[id number] OF REPORTBaylor Scott [facility] department [id number]:42:00G.[id number] for patient [id number]:06:42 [facility]
[2024-01-02] MEDS ORDERED: DOXYCYCLINE 100 MG CAP PO ONE (10:20)
[2024-01-04 17:00] VITALS: BP 145/79; TEMP 98; O2SAT 96
== END 2024-01-02 11:14 | disposition home or self-care (01) ==
LOC: ER 10:03
DX: L03.012 Cellulitis of left finger (principal); E11.9 Type 2 diabetes mellitus without complications; M06.9 Rheumatoid arthritis, unspecified; G47.00 Insomnia, unspecified; K21.9 Gastro-esophageal reflux disease without esophagitis; G30.9 Alzheimer's disease, unspecified; F02.80 Dementia in other diseases classified elsewhere, unspecified severity, without behavioral disturbance, psychotic disturbance, mood disturbance, and anxiety; Z88.0 Allergy status to penicillin; Z88.8 Allergy status to other drugs, medicaments and biological substances
CPT/HCPCS: 99283

== ENCOUNTER 2024-02-20 11:57 | Inpatient (IN) | payer MEDICARE, OTHER ==
--- OUTSIDE RECORDS SUMMARY | 2024-02-20 12:07 | XMS REPORT | Continuity of Care Document ---
Author Name Unknown Address [address] [facility] [address] [place] [address] [facility] Address [address] [facility] [address] [place] [address] Care Team Providers Care Extra Hand Name Role Phone VANESSA MC M.D. Attending [...] amine DA Active U 4-16 00:00: 00 [facility] penicill amine DA Active U UNKNOWN 4-16 00:00: 00 [facility] Penicill ins drug allergy Active [facility] [...] 00 Yes VANESSA MC M.D. USE DIRECTED. [facility] Omeprazole 20 MG Oral Tablet [...] 3 TIMES DAILY. [facility] Pen Friant 31G X 6 MM Pen Friant 31G X 6 MM 07-09 00:00: 00 [...] Date / Time Performed Performing Clinician Source [id number] 2019-09-27 00:00:00 ACHKA [facility] [id number] 2019-09-26 00:00:00 RESAL.01 [facility] [id number] 2019-09-26 00:00:00 RESAL.01 [facility] [id number] 2019-09-26 00:00:00 POTSE [facility] [id number] 2019-09-26 00:00:00 RESAL.01 [facility] [id number] 2019-09-26 00:00:00 ACHKA [facility] [B] KNEE 3 VIEWS 2018-09-10 00:00:[address] Brain wo contrast [id number] 2018-08-09 00:00:00 [facility] [Q] URINALYSIS, COMPLETE [...] ID Source 2019-09-26 03:37:00 Inpatient HCACL LISANDRO [id number] 51 [facility] 2018-10-09 15:30:00 2018-10-09 15:30:00 AppointVANESSA Bishop M.D. ABRAHAM, ALEYAMMA, M.D. [facility] [id number] [facility] 2018-09-10 13:00:00 2018-09-10 13:00:00 Appointmen t; DAVID VALDERRAMA, DAVID RICHTER, JIE [facility] [id number] [place] [facility] 2018-08-09 15:30:00 2018-08-09 15:30:00 Appointmen t; VANESSA MC M.D. ABRAHAM, ALEYAMMA, M.D. [facility] [id number] [facility] 2018-08-07 10:30:00 2018-08-07 10:30:00 Appointmen t; VANESSA MC M.D. ABRAHAM, ALEYAMMA, M.D. [facility] [id number] [facility] 2018-07-16 16:00:00 2018-07-16 16:00:00 Appointmen t; VANESSA MC M.D. ABRAHAM, ALEYAMMA, M.D. [facility] [id number] [facility] 2018-07-16 15:00:00 2018-07-16 15:00:00 Appointmen t; VANESSA MC M.D. ABRAHAM, ALEYAMMA, M.D. [facility] [id number] [facility] 2018-07-09 13:15:00 2018-07-09 13:15:00 Appointmen t; VANESSA MC M.D. ABRAHAM, ALEYAMMA, M.D. [facility] [id number] [facility] Results Test Description Test Time Test Comments Results Result Co mments Source BASIC METABOLIC [id number] 07:36:00* Test Item Value Reference Range Interpretation [...] code = CA) 8.0 mg/dL 8.0-10.5 N [id number] 07:36:00* Test Item Value Reference Range Interpretation Comme nts PHOSPHOROUS (test code = PHOS) 3.1 MG/DL 2.5-4.9 N [id number] 07:36:00* Test Item Value Reference Range Interpretation Comme nts MAGNESIUM (test code = MAG) 1.60 mg/dL 1.8-2.4 L [id number] 07:32:00* Test Item Value Reference Range Interpretation Comme nts GLUBED (test code = GLUBED) 224 MG/DL 70-110 H Performed by cer tified laundry press operator at [facility] CBC W/AUTO [id number] 07:06:00* Test Item Value Reference Range Interpretation [...] REQUIRED (test c ode = MDIFF) NO [id number] 19:44:00* Test Item Value Reference Range Interpretation Comme nts GLUBED (test code = GLUBED) 116 MG/DL 70-110 H Performed by cer tified laundry press operator at [facility] [id number] 16:20:00* Test Item Value Reference Range Interpretation Comme nts GLUBED (test code = GLUBED) 132 MG/DL 70-110 H Performed by cer tified laundry press operator at [facility] BASIC METABOLIC [id number] 12:23:00* Test Item Value Reference Range Interpretation [...] code = CA) 7.9 mg/dL 8.0-10.5 L [id number] 12:23:00* Test Item Value Reference Range Interpretation Comme nts MAGNESIUM (test code = MAG) 1.40 mg/dL 1.8-2.4 L CBC W/AUTO [id number] 11:44:00* Test Item Value Reference Range Interpretation [...] REQUIRED (test c ode = MDIFF) NO [id number] 10:37:00* Test Item Value Reference Range Interpretation Comme nts GLUBED (test code = GLUBED) 233 MG/DL 70-110 H Performed by cer tified laundry press operator at [facility] [id number] 07:27:00* Test Item Value Reference Range Interpretation Comme nts GLUBED (test code = GLUBED) 130 MG/DL 70-110 H Performed by cer tified laundry press operator at [facility] [id number] 20:11:00* Test Item Value Reference Range Interpretation Comme nts GLUBED (test code = GLUBED) 177 MG/DL 70-110 H Performed by cer tified laundry press operator at [facility] [id number] 17:39:00* Test Item Value Reference Range Interpretation Comme nts GLUBED (test code = GLUBED) 175 MG/DL 70-110 H Performed by cer tified laundry press operator at [facility] [id number] 11:52:00* Test Item Value Reference Range Interpretation Comme nts GLUBED (test code = GLUBED) 136 MG/DL 70-110 H Performed by cer tified laundry press operator at [facility] CBC W/AUTO [id number] 08:16:00* Test Item Value Reference Range Interpretation [...] DIFF REQUIRED (test code = MDIFF) NO [id number] 08:11:00* Test Item Value Reference Range Interpretation Comme nts GLUBED (test code = GLUBED) 119 MG/DL 70-110 H Performed by cer tified laundry press operator at [facility] BASIC METABOLIC [id number] 07:49:00* Test Item Value Reference Range Interpretation [...] code = CA) 8.0 mg/dL 8.0-10.5 N [id number] 07:49:00* Test Item Value Reference Range Interpretation Comme nts PHOSPHOROUS (test code = PHOS) 3.5 MG/DL 2.5-4.9 N [id number] 07:49:00* Test Item Value Reference Range Interpretation Comme nts MAGNESIUM (test code = MAG) 1.30 mg/dL 1.8-2.4 L [id number] 21:10:00* Test Item Value Reference Range Interpretation Comme nts GLUBED (test code = GLUBED) 234 MG/DL 70-110 H Performed by cer tified laundry press operator at [facility] [id number] 17:21:00* Test Item Value Reference Range Interpretation Comme nts GLUBED (test code = GLUBED) 127 MG/DL 70-110 H Performed by cer tified laundry press operator at [facility] [id number] 13:26:00* Test Item Value Reference Range Interpretation Comme nts GLUBED (test code = GLUBED) 144 MG/DL 70-110 H Performed by cer tified laundry press operator at [facility] TOTAL IRON BINDING [id number] 12:02:00* Test Item Value Reference Range Interpretation Comme nts SERUM IRON (test code = IRON) 56 mcg/dL 35-150 N TOTAL IRON BINDING CAPACITY (test code = TIBC) 163 mcg/dL 260-445 L UIBC (test code = UIBC) 107 mcg/dL IRON SATURATION (test code = FESAT) 34.4 % 14-34 H [id number] 12:02:00* Test Item Value Reference Range Interpretation Comme nts FERRITIN (test code = VIKY) 182.0 ng/mL 11.0-306.8 N [id number] 08:40:00* Test Item Value Reference Range Interpretation Comme nts GLUBED (test code = GLUBED) 136 MG/DL 70-110 H Performed by cer tified laundry press operator at [facility] BASIC METABOLIC [id number] 08:20:00* Test Item Value Reference Range Interpretation [...] code = CA) 7.8 mg/dL 8.0-10.5 L [id number] 08:20:00* Test Item Value Reference Range Interpretation Comme nts PHOSPHOROUS (test code = PHOS) 3.1 MG/DL 2.5-4.9 N [id number] 08:20:00* Test Item Value Reference Range Interpretation Comme nts MAGNESIUM (test code = MAG) 1.60 mg/dL 1.8-2.4 L CBC W/AUTO [id number] 07:52:00* Test Item Value Reference Range Interpretation [...] DIFF REQUIRED (test code = MDIFF) NO [id number] 07:16:00* Test Item Value Reference Range Interpretation Comme nts GLUBED (test code = GLUBED) 279 MG/DL 70-110 H Performed by cer tified laundry press operator at [facility] [id number] 21:40:00* Test Item Value Reference Range Interpretation Comme nts GLUBED (test code = GLUBED) 282 MG/DL 70-110 H Performed by cer tified laundry press operator at [facility] [id number] 11:28:00* Test Item Value Reference Range Interpretation Comme nts GLUBED (test code = GLUBED) 115 MG/DL 70-110 H Performed by cer tified laundry press operator at [facility] [id number] 08:26:00* Test Item Value Reference Range Interpretation Comme nts GLUBED (test code = GLUBED) 117 MG/DL 70-110 H Performed by cer tified laundry press operator at [facility] [id number] 20:40:00* Test Item Value Reference Range Interpretation Comme nts GLUBED (test code = GLUBED) 152 MG/DL 70-110 H Performed by cer tified laundry press operator at [facility] [id number] 17:27:00* Test Item Value Reference Range Interpretation Comme nts GLUBED (test code = GLUBED) 155 MG/DL 70-110 H Performed by cer tified laundry press operator at [facility] [id number] 11:29:00* Test Item Value Reference Range Interpretation Comme nts GLUBED (test code = GLUBED) 130 MG/DL 70-110 H Performed by cer tified laundry press operator at [facility] Novel Coronavirus [id number] 08:16:00* Test Item Value Reference Range Interpretation Comme nts Novel Coronavirus 2019 Inhouse (test code = [id number]) Negative Negative Positive resul ts are indicative of the presence swXNID-CtW-4 RNA, clinical correlation with patient historyand other [...] for the identification of SARS-CoV-2 RNA usingthe Pipewise M2000 System under the FDA Emergency UseAuthorization. The testing is performed by personneltrained in the procedures for the Kenny M2000 moleculardiagnostic SARS-CoV-2 assay in vitro. Testing Criteria: Shortness of [id number] 08:07:00* Test Item Value Reference Range Interpretation Comme nts GLUBED (test code = GLUBED) 112 MG/DL 70-110 H Performed by cer tified laundry press operator at [facility] [id number] 08:07:00* Test Item Value Reference Range Interpretation Comme nts GLUBED (test code = GLUBED) 112 MG/DL 70-110 H Performed by cer moe laundry press operator at [facility] BASIC METABOLIC [id number] 03:35:00* Test Item Value Reference Range Interpretation [...] code = CA) 8.1 mg/dL 8.0-10.5 N [id number] 03:35:00* Test Item Value Reference Range Interpretation Comme nts PHOSPHOROUS (test code = PHOS) 3.4 MG/DL 2.5-4.9 [id number] 03:35:00* Test Item Value Reference Range Interpretation Comme nts MAGNESIUM (test code = MAG) 1.50 mg/dL 1.8-2.4 L CBC W/AUTO [id number] 03:22:00* Test Item Value Reference Range Interpretation [...] REQUIRED (test c ode = MDIFF) NO [id number] 23:52:00* Test Item Value Reference Range Interpretation Comme nts GLUBED (test code = GLUBED) 139 MG/DL 70-110 H Performed by cer tified laundry press operator at [facility] [id number] 18:09:00* Test Item Value Reference Range Interpretation Comme nts GLUBED (test code = GLUBED) 174 MG/DL 70-110 H Performed by cer tified laundry press operator at [facility] Coronavirus 2019 nCoV [id number] 14:38:00* Test Item Value Reference Range Interpretation Comme nts Coronavirus 2019 nCoV Bedsid e (test code = [id number]) Negative Negative Emergent procedure? YESCOMMENTS: R/O PATIENT IN CONTACT WITH POSITIVE COVID 19 THROUGH JAIL/Comment: PATIENT WITH COUGH AND [id number] 13:06:00* Test Item Value Reference Range Interpretation Comme nts GLUBED (test code = GLUBED) 204 MG/DL 70-110 H Performed by cer tified laundry press operator at [facility] B-TYPE NATRIURETIC [id number] 11:28:00* Test Item Value Reference Range Interpretation Comme nts B-TYPE NATRIURETIC PEPTIDE ( test code = BNP) 301.5 PG/ML 0-100 H CBC W/AUTO [id number] 11:25:00* Test Item Value Reference Range Interpretation [...] (test c ode = MDIFF) YES WBC [id number] 11:25:00* Test Item Value Reference Range Interpretation [...] = PLTEST) Adequate THOUSAND ADEQUATE CBC W/AUTO [id number] 11:20:00* Test Item Value Reference Range Interpretation [...] (test c ode = MDIFF) YES WBC [id number] 11:20:00* Test Item Value Reference Range Interpretation Comme nts ANISOCYTOSIS (test code = ANISO) PLATELET ESTIMATE (test code = PLTEST) THOUSAND ADEQUATE CBC W/AUTO [id number] 11:20:00* Test Item Value Reference Range Interpretation [...] (test c ode = MDIFF) YES WBC [id number] 11:20:00* Test Item Value Reference Range Interpretation Comme nts ANISOCYTOSIS (test code = ANISO) PLATELET ESTIMATE (test code = PLTEST) THOUSAND ADEQUATE [id number] 11:12:00* Test Item Value Reference Range Interpretation Comme nts GLUBED (test code = GLUBED) 108 MG/DL 70-110 N Performed by cer gianniied laundry press operator at [facility] - XR CHEST 1 [id number] 09:40:00FAX: Joel Falk [phone] Lillian: St: ADM Name: [facility] [place] : 1945 Age/S:74/F [address] [place] [address] Blvd Unit #: [id number] Loc: G.4431 [place] [address] Phys: Joel Myers MD Acct: [id number] Dis Date: Status: ADM IN PHONE #: [phone] Exam Date: 10/06/2019929 FAX #: [phone] Reason: SOB,cough EXAMS: CPT CODE: [id number] XR CHEST 1 V 84700 EXAM: Singleview AP chest. EXAM DATE: 10/06/2019 [...] By: Delvis Orig Print D/T: S: 10/06/2019 (1432) PAGE 1 Signed ReportBASIC METABOLIC [id number] 08:27:00* Test Item Value Reference Range Interpretation [...] code = CA) 8.1 mg/dL 8.0-10.5 N [id number] 08:27:00* Test Item Value Reference Range Interpretation Comme nts PHOSPHOROUS (test code = PHOS) 2.5 MG/DL 2.5-4.9 N [id number] 08:27:00* Test Item Value Reference Range Interpretation Comme nts MAGNESIUM (test code = MAG) 1.80 mg/dL 1.8-2.4 N CBC W/AUTO [id number] 07:44:00* Test Item Value Reference Range Interpretation [...] DIFF REQUIRED (test c ode = MDIFF) [id number] 20:34:00* Test Item Value Reference Range Interpretation Comme nts GLUBED (test code = GLUBED) 143 MG/DL 70-110 H Performed by cer tified laundry press operator at [facility] [id number] 18:17:00* Test Item Value Reference Range Interpretation Comme nts GLUBED (test code = GLUBED) 112 MG/DL 70-110 H Performed by cer tified laundry press operator at [facility] [id number] 12:26:00* Test Item Value Reference Range Interpretation Comme nts GLUBED (test code = GLUBED) 168 MG/DL 70-110 H Performed by cer tified laundry press operator at [facility] [id number] 09:28:00* Test Item Value Reference Range Interpretation Comme nts GLUBED (test code = GLUBED) 118 MG/DL 70-110 H Performed by cer tified laundry press operator at [facility] CBC W/AUTO [id number] 09:00:00* Test Item Value Reference Range Interpretation [...] (test c ode = MDIFF) YES WBC [id number] 09:00:00* Test Item Value Reference Range Interpretation [...] code = PLTMORPH) LARGE PLATELETS CBC W/AUTO [id number] 08:55:00* Test Item Value Reference Range Interpretation [...] (test c ode = MDIFF) YES WBC [id number] 08:55:00* Test Item Value Reference Range Interpretation Comme nts ANISOCYTOSIS (test code = ANISO) PLATELET ESTIMATE (test code = PLTEST) THOUSAND ADEQUATE CBC W/AUTO [id number] 08:55:00* Test Item Value Reference Range Interpretation [...] (test c ode = MDIFF) YES WBC [id number] 08:55:00* Test Item Value Reference Range Interpretation Comme nts ANISOCYTOSIS (test code = ANISO) PLATELET ESTIMATE (test code = PLTEST) THOUSAND ADEQUATE BASIC METABOLIC [id number] 08:41:00* Test Item Value Reference Range Interpretation [...] code = CA) 8.2 mg/dL 8.0-10.5 N [id number] 08:41:00* Test Item Value Reference Range Interpretation Comme nts PHOSPHOROUS (test code = PHOS) 2.8 MG/DL 2.5-4.9 N [id number] 08:41:00* Test Item Value Reference Range Interpretation Comme nts MAGNESIUM (test code = MAG) 1.90 mg/dL 1.8-2.4 N CBC W/AUTO [id number] 07:55:00* Test Item Value Reference Range Interpretation [...] DIFF REQUIRED (test c ode = MDIFF) [id number] 21:52:00* Test Item Value Reference Range Interpretation Comme nts GLUBED (test code = GLUBED) 145 MG/DL 70-110 H Performed by cer tified laundry press operator at [facility] [id number] 17:18:00* Test Item Value Reference Range Interpretation Comme nts GLUBED (test code = GLUBED) 120 MG/DL 70-110 H Performed by cer tified laundry press operator at [facility] CBC W/AUTO [id number] 12:24:00* Test Item Value Reference Range Interpretation [...] (test c ode = MDIFF) NO PLT [id number] 12:24:00* Test Item Value Reference Range Interpretation Comme nts PLATELET ESTIMATE (test code = PLTEST) 112-140 THOUSAND ADEQUATE PLATELET MORPHOLOGY (test code = PLTMORPH) LARGE PLATELETS LARGE PLTS SEEN [id number] 12:20:00* Test Item Value Reference Range Interpretation Comme nts GLUBED (test code = GLUBED) 156 MG/DL 70-110 H Performed by cer tified laundry press operator at [facility] BASIC METABOLIC [id number] 08:58:00* Test Item Value Reference Range Interpretation [...] code = CA) 8.1 mg/dL 8.0-10.5 N [id number] 08:58:00* Test Item Value Reference Range Interpretation Comme nts PHOSPHOROUS (test code = PHOS) 3.3 MG/DL 2.5-4.9 N [id number] 08:58:00* Test Item Value Reference Range Interpretation Comme nts MAGNESIUM (test code = MAG) 1.70 mg/dL 1.8-2.4 L CBC W/AUTO [id number] 08:09:00* Test Item Value Reference Range Interpretation [...] (test c ode = MDIFF) NO PLT [id number] 08:09:00* Test Item Value Reference Range Interpretation Comme nts PLATELET ESTIMATE (test code = PLTEST) THOUSAND ADEQUATE CBC W/AUTO [id number] 08:09:00* Test Item Value Reference Range Interpretation [...] (test c ode = MDIFF) NO PLT [id number] 08:09:00* Test Item Value Reference Range Interpretation Comme nts PLATELET ESTIMATE (test code = PLTEST) THOUSAND ADEQUATE [id number] 08:06:00* Test Item Value Reference Range Interpretation Comme nts GLUBED (test code = GLUBED) 121 MG/DL 70-110 H Performed by cer tified laundry press operator at [facility] [id number] 20:33:00* Test Item Value Reference Range Interpretation Comme nts GLUBED (test code = GLUBED) 123 MG/DL 70-110 H Performed by cer tified laundry press operator at [facility] [id number] 16:49:00* Test Item Value Reference Range Interpretation Comme nts GLUBED (test code = GLUBED) 123 MG/DL 70-110 H Performed by cer tified laundry press operator at [facility] [id number] 11:56:00* Test Item Value Reference Range Interpretation Comme nts GLUBED (test code = GLUBED) 142 MG/DL 70-110 H Performed by cer tified laundry press operator at [facility] [id number] 09:07:00* Test Item Value Reference Range Interpretation Comme nts GLUBED (test code = GLUBED) 105 MG/DL 70-110 N Performed by cer tified laundry press operator at [facility] B-TYPE NATRIURETIC [id number] 08:56:00* Test Item Value Reference Range Interpretation Comme nts B-TYPE NATRIURETIC PEPTIDE ( test code = BNP) 109.1 PG/ML 0-100 H BASIC METABOLIC [id number] 08:11:00* Test Item Value Reference Range Interpretation [...] code = CA) 8.4 mg/dL 8.0-10.5 N [id number] 08:11:00* Test Item Value Reference Range Interpretation Comme nts PHOSPHOROUS (test code = PHOS) 2.8 MG/DL 2.5-4.9 N [id number] 08:11:00* Test Item Value Reference Range Interpretation Comme nts MAGNESIUM (test code = MAG) 1.70 mg/dL 1.8-2.4 L CBC W/AUTO [id number] 08:06:00* Test Item Value Reference Range Interpretation [...] REQUIRED (test c ode = MDIFF) NO [id number] 20:28:00* Test Item Value Reference Range Interpretation Comme nts GLUBED (test code = GLUBED) 99 MG/DL 70-110 N Performed by cer tified laundry press operator at [facility] [id number] 17:23:00* Test Item Value Reference Range Interpretation Comme nts GLUBED (test code = GLUBED) 80 MG/DL 70-110 N Performed by cer tified laundry press operator at [facility] [id number] 13:32:00* Test Item Value Reference Range Interpretation Comme nts GLUBED (test code = GLUBED) 151 MG/DL 70-110 H Performed by cer tified laundry press operator at [facility] [id number] 09:59:00* Test Item Value Reference Range Interpretation Comme nts GLUBED (test code = GLUBED) 111 MG/DL 70-110 H Performed by cer tified laundry press operator at [facility] BASIC METABOLIC [id number] 08:10:00* Test Item Value Reference Range Interpretation [...] code = CA) 7.9 mg/dL 8.0-10.5 L [id number] 08:10:00* Test Item Value Reference Range Interpretation Comme nts PHOSPHOROUS (test code = PHOS) 2.6 MG/DL 2.5-4.9 N [id number] 08:10:00* Test Item Value Reference Range Interpretation Comme nts MAGNESIUM (test code = MAG) 1.70 mg/dL 1.8-2.4 L CBC W/AUTO [id number] 07:41:00* Test Item Value Reference Range Interpretation [...] REQUIRED (test c ode = MDIFF) NO [id number] 07:10:00* Test Item Value Reference Range Interpretation Comme nts HAPTOGLOBIN (test code = HAPT) 173 mg/dL 42-346 Performed At: [address] [id number] Sanjai MD Ph:[phone] [id number] 22:23:00* Test Item Value Reference Range Interpretation Comme nts GLUBED (test code = GLUBED) 218 MG/DL 70-110 H Performed by cer tified laundry press operator at [facility] [id number] 16:37:00* Test Item Value Reference Range Interpretation Comme nts GLUBED (test code = GLUBED) 260 MG/DL 70-110 H Performed by cer tified laundry press operator at [facility] [id number] 12:17:00* Test Item Value Reference Range Interpretation Comme nts GLUBED (test code = GLUBED) 178 MG/DL 70-110 H Performed by cer tified laundry press operator at [facility] [id number] 08:26:00* Test Item Value Reference Range Interpretation Comme nts GLUBED (test code = GLUBED) 178 MG/DL 70-110 H Performed by cer tified laundry press operator at [facility] CBC W/AUTO [id number] 08:11:00* Test Item Value Reference Range Interpretation [...] c ode = MDIFF) NO BASIC METABOLIC [id number] 07:32:00* Test Item Value Reference Range Interpretation [...] code = CA) 8.1 mg/dL 8.0-10.5 N [id number] 07:32:00* Test Item Value Reference Range Interpretation Comme nts PHOSPHOROUS (test code = PHOS) 3.2 MG/DL 2.5-4.9 N [id number] 07:32:00* Test Item Value Reference Range Interpretation Comme nts MAGNESIUM (test code = MAG) 1.80 mg/dL 1.8-2.4 N [id number] 20:32:00* Test Item Value Reference Range Interpretation Comme nts GLUBED (test code = GLUBED) 136 MG/DL 70-110 H Performed by cer tified laundry press operator at [facility] [id number] 16:35:00* Test Item Value Reference Range Interpretation Comme nts GLUBED (test code = GLUBED) 114 MG/DL 70-110 H Performed by cer tified laundry press operator at [facility] [id number] 16:35:00* Test Item Value Reference Range Interpretation Comme nts GLUBED (test code = GLUBED) 114 MG/DL 70-110 H Performed by cer tified laundry press operator at [facility] [id number] 11:59:00* Test Item Value Reference Range Interpretation Comme nts GLUBED (test code = GLUBED) 162 MG/DL 70-110 H Performed by cer tified laundry press operator at [facility] [id number] 09:04:00* Test Item Value Reference Range Interpretation Comme nts GLUBED (test code = GLUBED) 149 MG/DL 70-110 H Performed by cer tified laundry press operator at [facility] B-TYPE NATRIURETIC [id number] 09:00:00* Test Item Value Reference Range Interpretation Comme nts B-TYPE NATRIURETIC PEPTIDE ( test code = BNP) 492.2 PG/ML 0-100 H BASIC METABOLIC [id number] 09:00:00* Test Item Value Reference Range Interpretation [...] CA) 7.2 mg/dL 8.0-10.5 L HEPATIC FUNCTION [id number] 09:00:00* Test Item Value Reference Range Interpretation [...] code = ALKP) 70 IUnit/L 20-125 N [id number] 09:00:00* Test Item Value Reference Range Interpretation Comme nts PHOSPHOROUS (test code = PHOS) 3.5 MG/DL 2.5-4.9 N LACTIC DEHYDROGENASE(LDH)2019-09-30 09:00:00* Test Item Value Reference Range Interpretation Comme nts LACTIC DEHYDROGENASE(LDH) (t est code = LDH) 270 IUnits/L 84-246 H [id number] 09:00:00* Test Item Value Reference Range Interpretation Comme nts MAGNESIUM (test code = MAG) 1.90 mg/dL 1.8-2.4 N PROTHROMBIN [id number] 08:39:00* Test Item Value Reference Range Interpretation [...] Infarction (to prevent recurrent infarct). THROMBOPLASTIN TIME [id number] 08:39:00* Test Item Value Reference Range Interpretation Comme nts THROMBOPLASTIN TIME PARTIAL (test code = PTT) 28.5 Seconds 25.0-39.5 N Therapeutic Rang e: 50.4 - 88.3 Seconds Effective 09/25/2018 [id number] 08:31:00* Test Item Value Reference Range Interpretation Comme nts GLUBED (test code = GLUBED) 146 MG/DL 70-110 H Performed by cer tified laundry press operator at [facility] - XR CHEST 1 [id number] 07:34:00FAX: Joel Falk [phone] Lillian: St: ADM FAX: Helga Escalante NP [phone] ---- Name: MAC AGUSTIN [facility] : 1945 Age/S: 74/F [address] [place] [address] Unit #: [id number] Loc: [address] [place] [address] Phys: Helga Escalante NP Acct: [id number] Dis Date: Status: ADM IN PHONE #: Exam Date: 09/30/2019513 FAX #: [phone] Reason: PNEUMONIA EXAMS: CPT CODE: [id number] XR CHEST 1 V 94541 Chest single view 09/30/2019 HISTORY: Pneumonia Comparison is made to 09/29/2019 FINDINGS: Bilateral pleural effusions and bibasilar atelectasis/infiltrates have decreased since prior study. Mild cardiomegaly is unchanged. Aorta contains calcifications. Interstitial edema has decreased. Right jugular line has been removed. IMPRESSION: 1. Decreasing bilateral pleural effusions with decreasing bibasilar atelectasis/infiltrates. 2. Decreasing interstitial edema. 3. Removal of right jugular line. SL: [id number] at 0734 Reported and signed by: Jose Dumont M.D. CC: Joel Myers MD; Helga Escalante NP Technologist: Niurka Peña RT(R) Trnscrd Date/Time/By: 09/30/2019 (0734) : By: [email or web address] Orig Print D/T: S: 09/30/2019 (0737) PAGE 1 Signed Report- XR ABDOMEN 1V (KUB)2019-09-30 07:33:00 FAX: Joel Falk [phone] Lillian: St: ADM FAX: Helga Escalante NP [phone] --- Name: MAC AGUSTIN [place] : 1945 Age/S: 74/F [address] [place] [address] Blvd Unit #: [id number] Loc: G.M317 [place] [address] Phys: Helga Escalante NP Acct: [id number] Dis Date: Status: ADM IN PHONE #: [phone] Exam Date: 09/30/2019513 FAX #: [phone] Reason: DIARRHEA/ABDOMINAL DISTENTION EXAMS:CPT CODE: [id number] XR ABDOMEN 1V (KUB) 61298 Abdomen single view 09/30/2019 HISTORY: Diarrhea. Abdominal distention Comparison is made to CT 09/26/2019 FINDINGS: There is diffuse demineralization. Vascular calcifications in the pelvis are present. No bowel dilatation is present. Rectal gas is presen t. Surgical clips in the right upper quadrant likely represent previous cholecystectomy. IMPRESSION: Nonobstructed bowel gas pattern. SL: [id number] at 0733 Reported and signed by: Jose Dumont M.D. CC: Joel Myers MD; Helga Escalante NP Technologist: RT Inga(R) Trnscrd Date/Time/By: 09/30/2019 (0733) : By: [email or web address] Orig Print D/T: S: 09/30/2019 (0736) PAGE 1 Signed ReportCOMPREHENSIVE METABOLIC [id number] 06:15:00* Test Item Value Reference Range Interpretation [...] code = ALKP) 69 IUnit/L 20-125 N [id number] 06:15:00* Test Item Value Reference Range Interpretation Comme nts PHOSPHOROUS (test code = PHOS) 3.2 MG/DL 2.5-4.9 N [id number] 06:15:00* Test Item Value Reference Range Interpretation Comme nts MAGNESIUM (test code = MAG) 1.90 mg/dL 1.8-2.4 N CALCIUM [id number] 06:15:00* Test Item Value Reference Range Interpretation Comme nts CALCIUM IONIZED (test code = DMITRY) 1.05 MMOL/L 1.12-1.32 L LACTIC [id number] 06:06:00* Test Item Value Reference Range Interpretation Comme nts LACTIC ACID (test code = LACT) 1.3 mmol/L 0.4-1.9 N COMPREHENSIVE METABOLIC [id number] 05:58:00* Test Item Value Reference Range Interpretation [...] ( test code = ALKP) IUnit/L 20-125 [id number] 05:58:00* Test Item Value Reference Range Interpretation Comme nts PHOSPHOROUS (test code = PHOS) MG/DL 2.5-4.9 [id number] 05:58:00* Test Item Value Reference Range Interpretation Comme nts MAGNESIUM (test code = MAG) mg/dL 1.8-2.4 CALCIUM [id number] 05:58:00* Test Item Value Reference Range Interpretation Comme nts CALCIUM IONIZED (test code = DMITRY) 1.05 MMOL/L 1.12-1.32 L CBC W/AUTO [id number] 05:48:00* Test Item Value Reference Range Interpretation [...] (test code = MDIFF) NO BASIC METABOLIC [id number] 00:27:00* Test Item Value Reference Range Interpretation [...] code = CA) 7.6 mg/dL 8.0-10.5 L [id number] 00:27:00* Test Item Value Reference Range Interpretation Comme nts PHOSPHOROUS (test code = PHOS) 3.2 MG/DL 2.5-4.9 N [id number] 00:27:00* Test Item Value Reference Range Interpretation Comme nts MAGNESIUM (test code = MAG) 1.80 mg/dL 1.8-2.4 N LACTIC [id number] 17:55:00* Test Item Value Reference Range Interpretation Comme nts LACTIC ACID (test code = LACT) 1.2 mmol/L 0.4-1.9 N BASIC METABOLIC [id number] 17:54:00* Test Item Value Reference Range Interpretation [...] code = CA) 7.0 mg/dL 8.0-10.5 L [id number] 17:54:00* Test Item Value Reference Range Interpretation Comme nts PHOSPHOROUS (test code = PHOS) 2.8 MG/DL 2.5-4.9 N [id number] 17:54:00* Test Item Value Reference Range Interpretation Comme nts MAGNESIUM (test code = MAG) 2.00 mg/dL 1.8-2.4 N BASIC METABOLIC [id number] 17:48:00* Test Item Value Reference Range Interpretation [...] code = CA) 7.0 mg/dL 8.0-10.5 L [id number] 17:48:00* Test Item Value Reference Range Interpretation Comme nts PHOSPHOROUS (test code = PHOS) MG/DL 2.5-4.9 [id number] 17:48:00* Test Item Value Reference Range Interpretation Comme nts MAGNESIUM (test code = MAG) 2.00 mg/dL 1.8-2.4 N [id number] 17:15:00* Test Item Value Reference Range Interpretation Comme nts GLUBED (test code = GLUBED) 154 MG/DL 70-110 H Performed by cer tified laundry press operator at [facility] [id number] 17:14:00* Test Item Value Reference Range Interpretation Comme nts GLUBED (test code = GLUBED) 143 MG/DL 70-110 H Performed by cer tified laundry press operator at [facility] [id number] 17:14:00* Test Item Value Reference Range Interpretation Comme nts GLUBED (test code = GLUBED) 112 MG/DL 70-110 H Performed by cer tified laundry press operator at [facility] [id number] 17:14:00* Test Item Value Reference Range Interpretation Comme nts GLUBED (test code = GLUBED) 79 MG/DL 70-110 N Performed by cer tified laundry press operator at [facility] BASIC METABOLIC [id number] 12:59:00* Test Item Value Reference Range Interpretation [...] code = CA) 7.3 mg/dL 8.0-10.5 L [id number] 12:59:00* Test Item Value Reference Range Interpretation Comme nts PHOSPHOROUS (test code = PHOS) 3.1 MG/DL 2.5-4.9 [id number] 12:59:00* Test Item Value Reference Range Interpretation Comme nts MAGNESIUM (test code = MAG) 1.90 mg/dL 1.8-2.4 N LACTIC ACID [id number] 10:16:00* Test Item Value Reference Range Interpretation Comme nts LACTIC ACID REPEAT (test cod e = LACTR) 2.1 mmol/l 0.4-1.9 H - XR CHEST 1 [id number] 07:08:00FAX: Joel Falk [phone] Lillian: St: ADM FAX: Marisabel Berkowitz DO [phone] ------- Name: MAC AGUSTIN [facility] : 1945 Age/S: 74/F [address] [place] [address] Unit #: [id number] Loc: G.M317 [place] [address] Phys: Marisabel Chu DO Acct: [id number] Dis Date: Status: ADM IN PHONE #: [phone] Exam Date: 09/29/2019 0541 FAX #: [phone] Reason: SOB EXAMS: CPT CODE: [id number] XR CHEST 1 V 04858 CHEST RADIOGRAPH ONE VIEW 09/29/2019 AT 0507 [...] early consolidation. 3. Enlarged cardiac silhouette. SL: [id number] at 0708 Reported and signed by: Scott Duran M.D. CC: Joel Myers MD; Marisabel Chu DO Technologist: RT Inga(R) Trnscrd Date/Time/By: 09/29/2019 (707) : By: [email or web address] Orig Print D/T: S: 09/29/2019 (711) PAGE 1 Signed ReportB-TYPE NATRIURETIC [id number] 05:54:00* Test Item Value Reference Range Interpretation Comme nts B-TYPE NATRIURETIC PEPTIDE ( test code = BNP) 546.7 PG/ML 0-100 H HGBA1C%2019-09-29 05:31:00* Test Item Value Reference Range Interpretation Comme nts HGBA1C% (test code = HGBA1C%) 6.0 %A1C 4.8-6.0 N BASIC METABOLIC [id number] 05:30:00* Test Item Value Reference Range Interpretation [...] code = CA) 7.2 mg/dL 8.0-10.5 L [id number] 05:30:00* Test Item Value Reference Range Interpretation Comme nts PHOSPHOROUS (test code = PHOS) 1.4 MG/DL 2.5-4.9 L [id number] 05:30:00* Test Item Value Reference Range Interpretation Comme nts MAGNESIUM (test code = MAG) 2.00 mg/dL 1.8-2.4 N ACETONE [id number] 05:30:00* Test Item Value Reference Range Interpretation Comme nts ACETONE QUANT (test code = ACETN) NEGATIVE - <20mg/dL mg/dL NEG - <20 BASIC METABOLIC [id number] 05:29:00* Test Item Value Reference Range Interpretation [...] CALCIUM (test code = CA) mg/dL 8.0-10.5 [id number] 05:29:00* Test Item Value Reference Range Interpretation Comme nts PHOSPHOROUS (test code = PHOS) MG/DL 2.5-4.9 [id number] 05:29:00* Test Item Value Reference Range Interpretation Comme nts MAGNESIUM (test code = MAG) mg/dL 1.8-2.4 ACETONE [id number] 05:29:00* Test Item Value Reference Range Interpretation Comme nts ACETONE QUANT (test code = ACETN) NEGATIVE - <20mg/dL mg/dL NEG - <20 LACTIC [id number] 05:26:00* Test Item Value Reference Range Interpretation Comme nts LACTIC ACID (test code = LACT) 4.0 mmol/L 0.4-1.9 H CBC W/AUTO [id number] 05:08:00* Test Item Value Reference Range Interpretation [...] DIFF REQUIRED (test code = MDIFF) NO [id number] 01:50:00* Test Item Value Reference Range Interpretation Comme nts GLUBED (test code = GLUBED) 134 MG/DL 70-110 H Performed by cer tified laundry press operator at [facility] BASIC METABOLIC [id number] 00:45:00* Test Item Value Reference Range Interpretation [...] code = CA) 7.6 mg/dL 8.0-10.5 L [id number] 00:45:00* Test Item Value Reference Range Interpretation Comme nts PHOSPHOROUS (test code = PHOS) 1.9 MG/DL 2.5-4.9 L [id number] 00:04:00* Test Item Value Reference Range Interpretation Comme nts MAGNESIUM (test code = MAG) 2.00 mg/dL 1.8-2.4 N COMMENTS: Every 6 hours until anion gap </= 12 mEq/L, then every morningGLUBED 2019-09-28 23:39:00* Test Item Value Reference Range Interpretation Comme nts GLUBED (test code = GLUBED) 138 MG/DL 70-110 H Performed by cer tified laundry press operator at [facility] [id number] 21:56:00* Test Item Value Reference Range Interpretation Comme nts GLUBED (test code = GLUBED) 130 MG/DL 70-110 H Performed by cer tified laundry press operator at [facility] [id number] 18:56:00* Test Item Value Reference Range Interpretation Comme nts GLUBED (test code = GLUBED) 151 MG/DL 70-110 H Performed by cer tified laundry press operator at [facility] BASIC METABOLIC [id number] 18:54:00* Test Item Value Reference Range Interpretation [...] code = CA) 7.1 mg/dL 8.0-10.5 L [id number] 18:54:00* Test Item Value Reference Range Interpretation Comme nts PHOSPHOROUS (test code = PHOS) 2.2 MG/DL 2.5-4.9 L [id number] 18:54:00* Test Item Value Reference Range Interpretation Comme nts MAGNESIUM (test code = MAG) 2.10 mg/dL 1.8-2.4 N [id number] 18:39:00* Test Item Value Reference Range Interpretation Comme nts GLUBED (test code = GLUBED) 152 MG/DL 70-110 H Performed by cer tified laundry press operator at [facility] [id number] 18:39:00* Test Item Value Reference Range Interpretation Comme nts GLUBED (test code = GLUBED) 123 MG/DL 70-110 H Performed by cer tified laundry press operator at [facility] [id number] 18:39:00* Test Item Value Reference Range Interpretation Comme nts GLUBED (test code = GLUBED) 138 MG/DL 70-110 H Performed by cer tified laundry press operator at [facility] [id number] 13:20:00* Test Item Value Reference Range Interpretation Comme nts MAGNESIUM (test code = MAG) 2.30 mg/dL 1.8-2.4 N COMMENTS: Every 6 hours until anion gap </= 12 mEq/L, then every morningARTERIAL BLOOD [id number] 11:48:00* Test Item Value Reference Range Interpretation [...] ARTERIAL (test code = TCO2A) 15 URINALYSIS [id number] 11:44:00* Test Item Value Reference Range Interpretation [...] AMORU) 1+ /HPF NONE A BASIC METABOLIC [id number] 11:32:00* Test Item Value Reference Range Interpretation [...] = CA) 7.4 mg/dL 8.0-10.5 L ACETONE [id number] 11:32:00* Test Item Value Reference Range Interpretation Comme nts ACETONE QUANT (test code = ACETN) Large - 80-100 mg/dL mg/dL NEG - <20 LACTIC [id number] 11:31:00* Test Item Value Reference Range Interpretation Comme nts LACTIC ACID (test code = LACT) 1.3 mmol/L 0.4-1.9 N BASIC METABOLIC [id number] 11:29:00* Test Item Value Reference Range Interpretation [...] = CA) 7.4 mg/dL 8.0-10.5 L ACETONE [id number] 11:29:00* Test Item Value Reference Range Interpretation Comme nts ACETONE QUANT (test code = ACETN) Large - 80-100 mg/dL mg/dL NEG - <20 BASIC METABOLIC [id number] 11:21:00* Test Item Value Reference Range Interpretation [...] (test code = CA) mg/dL 8.0-10.5 ACETONE [id number] 11:21:00* Test Item Value Reference Range Interpretation Comme nts ACETONE QUANT (test code = ACETN) Large - 80-100 mg/dL mg/dL NEG - <20 [id number] 07:57:00* Test Item Value Reference Range Interpretation Comme nts GLUBED (test code = GLUBED) 169 MG/DL 70-110 H Performed by cer tified laundry press operator at [facility] CBC W/AUTO [id number] 05:24:00* Test Item Value Reference Range Interpretation [...] REQUIRED (test code = MDIFF) NO PLT [id number] 05:24:00* Test Item Value Reference Range Interpretation Comme nts PLATELET ESTIMATE (test code = PLTEST) 80-100 THOUSAND ADEQUATE PLATELET MORPHOLOGY (test code = PLTMORPH) LARGE PLATELETS LACTIC [id number] 05:20:00* Test Item Value Reference Range Interpretation Comme nts LACTIC ACID (test code = LACT) 1.2 mmol/L 0.4-1.9 N BASIC METABOLIC [id number] 05:20:00* Test Item Value Reference Range Interpretation [...] code = CA) 7.4 mg/dL 8.0-10.5 L [id number] 05:20:00* Test Item Value Reference Range Interpretation Comme nts PHOSPHOROUS (test code = PHOS) 2.9 MG/DL 2.5-4.9 N [id number] 05:20:00* Test Item Value Reference Range Interpretation Comme nts MAGNESIUM (test code = MAG) 2.30 mg/dL 1.8-2.4 [id number] 05:20:00* Test Item Value Reference Range Interpretation Comme nts VANCOMYCIN (test code = VANCO) 12.8 mcg/mL CBC W/AUTO [id number] 05:01:00* Test Item Value Reference Range Interpretation [...] REQUIRED (test code = MDIFF) NO PLT [id number] 05:01:00* Test Item Value Reference Range Interpretation Comme nts PLATELET ESTIMATE (test code = PLTEST) THOUSAND ADEQUATE CBC W/AUTO [id number] 05:01:00* Test Item Value Reference Range Interpretation [...] REQUIRED (test code = MDIFF) NO PLT [id number] 05:01:00* Test Item Value Reference Range Interpretation Comme nts PLATELET ESTIMATE (test code = PLTEST) THOUSAND ADEQUATE LACTIC ACID [id number] 18:47:00* Test Item Value Reference Range Interpretation Comme nts LACTIC ACID REPEAT (test cod e = LACTR) 1.6 mmol/l 0.4-1.9 N [id number] 18:16:00* Test Item Value Reference Range Interpretation Comme nts GLUBED (test code = GLUBED) 129 MG/DL 70-110 H Performed by cer tified laundry press operator at [facility] B-TYPE NATRIURETIC [id number] 16:58:00* Test Item Value Reference Range Interpretation Comme nts B-TYPE NATRIURETIC PEPTIDE ( test code = BNP) 1269.2 PG/ML 0-100 H LACTIC [id number] 15:47:00* Test Item Value Reference Range Interpretation Comme nts LACTIC ACID (test code = LACT) 2.4 mmol/L 0.4-1.9 H BASIC METABOLIC [id number] 15:44:00* Test Item Value Reference Range Interpretation [...] code = CA) 7.1 mg/dL 8.0-10.5 L [id number] 15:44:00* Test Item Value Reference Range Interpretation Comme nts PHOSPHOROUS (test code = PHOS) 2.6 MG/DL 2.5-4.9 [id number] 15:44:00* Test Item Value Reference Range Interpretation Comme nts MAGNESIUM (test code = MAG) 1.60 mg/dL 1.8-2.4 L CBC W/AUTO [id number] 15:26:00* Test Item Value Reference Range Interpretation [...] DIFF REQUIRED (test code = MDIFF) NO [id number] 12:23:00* Test Item Value Reference Range Interpretation Comme nts GLUBED (test code = GLUBED) 158 MG/DL 70-110 H Performed by cer tified laundry press operator at [facility] CBC W/AUTO [id number] 10:37:00* Test Item Value Reference Range Interpretation [...] REQUIRED (test code = MDIFF) YES WBC [id number] 10:37:00* Test Item Value Reference Range Interpretation [...] LARGE PLATELETS LARGE PLTS SEEN CBC W/AUTO [id number] 10:26:00* Test Item Value Reference Range Interpretation [...] REQUIRED (test code = MDIFF) YES WBC [id number] 10:26:00* Test Item Value Reference Range Interpretation Comme nts ANISOCYTOSIS (test code = ANISO) PLATELET ESTIMATE (test code = PLTEST) THOUSAND ADEQUATE CBC W/AUTO [id number] 10:26:00* Test Item Value Reference Range Interpretation [...] REQUIRED (test code = MDIFF) YES WBC [id number] 10:26:00* Test Item Value Reference Range Interpretation Comme nts ANISOCYTOSIS (test code = ANISO) PLATELET ESTIMATE (test code = PLTEST) THOUSAND ADEQUATE ARTERIAL BLOOD [id number] 09:58:00* Test Item Value Reference Range Interpretation [...] (test code = TCO2A) 20 LACTIC ACID [id number] 09:46:00* Test Item Value Reference Range Interpretation Comme nts LACTIC ACID REPEAT (test cod e = LACTR) 2.0 mmol/l 0.4-1.9 H ACUTE HEPATITIS [id number] 08:08:00* Test Item Value Reference Range Interpretation [...] COMMENTS: At start of hemodialysisAB HEPATITIS B [id number] 08:08:00* Test Item Value Reference Range Interpretation Comme nts AB HEPATITIS B SURFACE (test code = HBSAB) 688.1 mIU/mL Immunity>9.9 Status of Immuni ty Anti-HBs Level Incons istent with Immunity 0.0 - 9.9Consistent with Immunity >9.9Performed At: [facility] [address] [id number] Matty Dye MD Ph:[phone] COMMENTS: At start of [id number] 08:07:00* Test Item Value Reference Range Interpretation Comme nts GLUBED (test code = GLUBED) 191 MG/DL 70-110 H Performed by cer tified laundry press operator at [facility] [id number] 08:07:00* Test Item Value Reference Range Interpretation Comme nts GLUBED (test code = GLUBED) > 600 MG/DL 70-110 H Performed by cer tified laundry press operator at [facility] - XR CHEST 1 [id number] 07:52:00FAX: Rabia Castro MD [phone] Lillian: St: ADM FAX: Joel Falk [phone] Name: MAC AGUSTIN [facility] : 1945 Age/S: 74/F [address] [place] [address] Unit #: [id number] Loc: G.M317 [place] [address] Phys: Rabia Aguilar MD Acct: [id number] Dis Date: Status: ADM IN PHONE #: Exam Date: 09/27/2019 0748 FAX #: [phone] Reason: Hypoxemia EXAMS: CPT CODE: [id number] XR CHEST 1 V 67351 Study: - XR CHEST 1 V 09/27/2019 7:19 AM Patient Name: MAC AGUSTIN MR: [id number] : 1945; Age: 74 years y/o Female [...] No acute abnormality as above discussed. SL: [id number] Electronically Signed by Blanche Alvarenga on09/27/2019 at 0752 Reported and signed by: Collin [...] code = CA) 6.7 mg/dL 8.0-10.5 L [id number] 07:33:00* Test Item Value Reference Range Interpretation Comme nts PHOSPHOROUS (test code = PHOS) 3.9 MG/DL 2.5-4.9 [id number] 07:33:00* Test Item Value Reference Range Interpretation Comme nts MAGNESIUM (test code = MAG) 2.50 mg/dL 1.8-2.4 H CALCIUM [id number] 07:33:00* Test Item Value Reference Range Interpretation Comme nts CALCIUM IONIZED (test code = DMITRY) 0.99 MMOL/L 1.12-1.32 L BASIC METABOLIC [id number] 07:25:00* Test Item Value Reference Range Interpretation [...] CALCIUM (test code = CA) mg/dL 8.0-10.5 [id number] 07:25:00* Test Item Value Reference Range Interpretation Comme nts PHOSPHOROUS (test code = PHOS) MG/DL 2.5-4.9 [id number] 07:25:00* Test Item Value Reference Range Interpretation Comme nts MAGNESIUM (test code = MAG) mg/dL 1.8-2.4 CALCIUM [id number] 07:25:00* Test Item Value Reference Range Interpretation Comme nts CALCIUM IONIZED (test code = DMITRY) 0.99 MMOL/L 1.12-1.32 L LACTIC [id number] 07:14:00* Test Item Value Reference Range Interpretation Comme nts LACTIC ACID (test code = LACT) 3.5 mmol/L 0.4-1.9 H CBC W/AUTO [id number] 06:52:00* Test Item Value Reference Range Interpretation [...] MANUAL DIFF REQUIRED (test code = MDIFF) [id number] 05:55:00* Test Item Value Reference Range Interpretation Comme nts GLUBED (test code = GLUBED) 146 MG/DL 70-110 H Performed by cer tified laundry press operator at [facility] BASIC METABOLIC [id number] 03:07:00* Test Item Value Reference Range Interpretation [...] code = CA) 6.9 mg/dL 8.0-10.5 L [id number] 03:07:00* Test Item Value Reference Range Interpretation Comme [facility] PHOSPHOROUS (test code = PHOS) 2.3 MG/DL 2.5-4.9 L [id number] 03:07:00* Test Item Value Reference Range Interpretation Comme [facility] MAGNESIUM (test code = MAG) 2.50 mg/dL 1.8-2.4 H CALCIUM [id number] 03:07:00* Test Item Value Reference Range Interpretation Comme [facility] CALCIUM IONIZED (test code = DMITRY) 0.96 MMOL/L 1.12-1.32 L ARTERIAL BLOOD [id number] 02:42:00* Test Item Value Reference Range Interpretation Comme [facility] ARTERIAL BLOOD GAS PH (test code [...] (test code = TCO2A) 16 CBC W/AUTO [id number] 02:24:00* Test Item Value Reference Range Interpretation Comme [facility] WHITE BLOOD CELL (test code = [...] ED, CONSISTENT WITH AUTO DIFF. BASIC METABOLIC [id number] 02:14:00* Test Item Value Reference Range Interpretation [...] CALCIUM (test code = CA) mg/dL 8.0-10.5 [id number] 02:14:00* Test Item Value Reference Range Interpretation Comme nts PHOSPHOROUS (test code = PHOS) MG/DL 2.5-4.9 [id number] 02:14:00* Test Item Value Reference Range Interpretation Comme nts MAGNESIUM (test code = MAG) mg/dL 1.8-2.4 CALCIUM [id number] 02:14:00* Test Item Value Reference Range Interpretation Comme nts CALCIUM IONIZED (test code = DMITRY) 0.96 MMOL/L 1.12-1.32 L LACTIC ACID 2ND [id number] 02:01:00* Test Item Value Reference Range Interpretation Comme nts LACTIC ACID 2ND REPEAT (test code = LACT2) 6.2 mmol/L 0.4-1.9 HH CBC W/AUTO [id number] 01:51:00* Test Item Value Reference Range Interpretation [...] MANUAL DIFF REQUIRED (test code = MDIFF) [id number] 00:42:00* Test Item Value Reference Range Interpretation Comme nts GLUBED (test code = GLUBED) 117 MG/DL 70-110 H Performed by cer tified laundry press operator at [facility] LIPOPROTEIN [id number] 23:01:00* Test Item Value Reference Range Interpretation Comme nts LIPOPROTEIN LDL (test code = LDL) 67 mg/dL 0-100 N <100 [id number] 0-129 NEAR OPTIMAL/ABOVE [id number] HIGH>BJ=106 VERY HIGH*Guidelines provided by the National [facility] Adult Treatment Panel III BASIC METABOLIC [id number] 22:46:00* Test Item Value Reference Range Interpretation [...] code = CA) 7.0 mg/dL 8.0-10.5 L [id number] 22:46:00* Test Item Value Reference Range Interpretation Comme nts PHOSPHOROUS (test code = PHOS) 1.6 MG/DL 2.5-4.9 L [id number] 22:46:00* Test Item Value Reference Range Interpretation Comme nts MAGNESIUM (test code = MAG) 2.40 mg/dL 1.8-2.4 [id number] 22:46:00* Test Item Value Reference Range Interpretation Comme nts TROPONIN-I (test code = TROPI) 0.284 ng/mL 0.000-0.045 Negative: <= 0.0 45 Positive: >= 0.046 Correlation with serial results, other cardiac markers andclinical findings is necessary to determine the clinicalsignificance of this result. Results using different methodologies should not be comparedto one another as quantitative results may vary by method. LACTIC ACID [id number] 22:44:00* Test Item Value Reference Range Interpretation Comme nts LACTIC ACID REPEAT (test cod e = LACTR) 7.8 mmol/l 0.4-1.9 HH CALCIUM [id number] 22:38:00* Test Item Value Reference Range Interpretation Comme nts CALCIUM IONIZED (test code = DMITRY) 0.96 MMOL/L 1.12-1.32 L [id number] 18:50:00* Test Item Value Reference Range Interpretation Comme nts GLUBED (test code = GLUBED) 126 MG/DL 70-110 H Performed by cer tified laundry press operator at [facility] LACTIC [id number] 17:54:00* Test Item Value Reference Range Interpretation Comme nts LACTIC ACID (test code = LACT) 9.2 mmol/L 0.4-1.9 HH BASIC METABOLIC [id number] 17:54:00* Test Item Value Reference Range Interpretation [...] code = CA) 7.6 mg/dL 8.0-10.5 L [id number] 17:54:00* Test Item Value Reference Range Interpretation Comme nts PHOSPHOROUS (test code = PHOS) 1.2 MG/DL 2.5-4.9 L [id number] 17:54:00* Test Item Value Reference Range Interpretation Comme nts MAGNESIUM (test code = MAG) 1.50 mg/dL 1.8-2.4 L CALCIUM [id number] 17:54:00* Test Item Value Reference Range Interpretation Comme nts CALCIUM IONIZED (test code = DMITRY) 0.98 MMOL/L 1.12-1.32 L BASIC METABOLIC [id number] 17:39:00* Test Item Value Reference Range Interpretation [...] CALCIUM (test code = CA) mg/dL 8.0-10.5 [id number] 17:39:00* Test Item Value Reference Range Interpretation Comme nts PHOSPHOROUS (test code = PHOS) MG/DL 2.5-4.9 [id number] 17:39:00* Test Item Value Reference Range Interpretation Comme nts MAGNESIUM (test code = MAG) mg/dL 1.8-2.4 CALCIUM [id number] 17:39:00* Test Item Value Reference Range Interpretation Comme nts CALCIUM IONIZED (test code = DMITRY) 0.98 MMOL/L 1.12-1.32 L CBC W/AUTO [id number] 17:38:00* Test Item Value Reference Range Interpretation [...] (test code = MDIFF) NO ARTERIAL BLOOD [id number] 17:34:00* Test Item Value Reference Range Interpretation [...] (test code = TCO2A) 26 ARTERIAL BLOOD [id number] 15:12:00* Test Item Value Reference Range Interpretation [...] (test code = TCO2A) 20 VENOUS BLOOD [id number] 15:04:00* Test Item Value Reference Range Interpretation [...] (test code = TCO2V) 20 ACUTE HEPATITIS [id number] 12:54:00* Test Item Value Reference Range Interpretation [...] COMMENTS: At start of hemodialysisAB HEPATITIS B [id number] 12:54:00* Test Item Value Reference Range Interpretation Comme nts AB HEPATITIS B SURFACE (test code = HBSAB) COMMENTS: At start of hemodialysis- XR CHEST 1 [id number] 12:49:00FAX: Joel Falk [phone] Lillian: St: ADM FAX: Mick Lin [phone] --- Name: MAC AGUSTIN [facility] [place] : 1945 Age/S: 74/F [address] [place] [address] Unit #: [id number] Loc: G.[address] [place] [address] Phys: Mick Lin MD Acct: [id number] Dis Date: Status: ADM IN PHONE #: Exam Date: 09/26/2019 1236 FAX #: [phone] Reason: CONFIRM LINE PLACEMENT OF RIGHT IJ EXAMS: CPT CODE: [id number] XR CHEST 1 V 02188 EXAM: Single view AP chest. EXAM DATE: 09/26/2019 op8016 hours CLINICAL HISTORY: CONFIRM LINE PLACEMENT OF [...] atrium. No acute cardiopulmonary findings identified. at 9756 Reported and signed by: Tracy Johnson M.D. CC: oJel Myers MD; Mick Lin MD Technologist: RT Viji(R) Trnscrd Date/Time/By: 09/26/2019 (2663) : By: Delvis Booker Print D/T: S: 09/26/2019 (3497) PAGE 1 Signed ReportACUTE HEPATITIS [id number] 12:22:00 * Test Item Value Reference Range Interpretation Comme nts AB HEPATITIS A IGM (test code = HAVMAB) INDEX NON REACT. AG HEPATITIS B SURFACE (test code = HBSAG) NON REACTIVE INDEX NonReactive AB HEPATITIS B CORE IGM (test code = HBCMAB) INDEX NON REACT. AB HEPATITIS C (test code = HCVAB) INDEX NON REACT. COMMENTS: At start of hemodialysisAB HEPATITIS B [id number] 12:22:00* Test Item Value Reference Range Interpretation Comme nts AB HEPATITIS B SURFACE (test code = HBSAB) COMMENTS: At start of hemodialysisACUTE HEPATITIS [id number] 12:22:00* Test Item Value Reference Range Interpretation Comme nts AB HEPATITIS A IGM (test code = HAVMAB) INDEX NON REACT. AG HEPATITIS B SURFACE (test code = HBSAG) NON REACTIVE INDEX NonReactive AB HEPATITIS B CORE IGM (test code = HBCMAB) INDEX NON REACT. AB HEPATITIS C (test code = HCVAB) INDEX NON REACT. COMMENTS: At start of hemodialysisAB HEPATITIS B [id number] 12:22:00* Test Item Value Reference Range Interpretation Comme nts AB HEPATITIS B SURFACE (test code = HBSAB) COMMENTS: At start of hemodialysisCOMPREHENSIVE METABOLIC [id number] 11:44:00* Test Item Value Reference Range Interpretation [...] code = ALKP) 52 IUnit/L 20-125 N [id number] 11:44:00* Test Item Value Reference Range Interpretation Comme nts PHOSPHOROUS (test code = PHOS) 9.2 MG/DL 2.5-4.9 [id number] 11:44:00* Test Item Value Reference Range Interpretation Comme nts MAGNESIUM (test code = MAG) 2.90 mg/dL 1.8-2.4 H CALCIUM [id number] 11:44:00* Test Item Value Reference Range Interpretation Comme nts CALCIUM IONIZED (test code = DMITRY) 1.07 MMOL/L 1.12-1.32 L LACTIC ACID 2ND [id number] 11:23:00* Test Item Value Reference Range Interpretation Comme nts LACTIC ACID 2ND REPEAT (test code = LACT2) 21.3 mmol/L 0.4-1.9 COMPREHENSIVE METABOLIC [id number] 10:59:00* Test Item Value Reference Range Interpretation [...] code = ALKP) 52 IUnit/L 20-125 N [id number] 10:59:00* Test Item Value Reference Range Interpretation Comme nts PHOSPHOROUS (test code = PHOS) MG/DL 2.5-4.9 [id number] 10:59:00* Test Item Value Reference Range Interpretation Comme nts MAGNESIUM (test code = MAG) 2.90 mg/dL 1.8-2.4 H CALCIUM [id number] 10:59:00* Test Item Value Reference Range Interpretation Comme nts CALCIUM IONIZED (test code = DMITRY) 1.07 MMOL/L 1.12-1.32 L COMPREHENSIVE METABOLIC [id number] 10:59:00* Test Item Value Reference Range Interpretation [...] code = ALKP) 52 IUnit/L 20-125 N [id number] 10:59:00* Test Item Value Reference Range Interpretation Comme nts PHOSPHOROUS (test code = PHOS) MG/DL 2.5-4.9 [id number] 10:59:00* Test Item Value Reference Range Interpretation Comme nts MAGNESIUM (test code = MAG) 2.90 mg/dL 1.8-2.4 H CALCIUM [id number] 10:59:00* Test Item Value Reference Range Interpretation Comme nts CALCIUM IONIZED (test code = DMITRY) 1.07 MMOL/L 1.12-1.32 L COMPREHENSIVE METABOLIC [id number] 10:50:00* Test Item Value Reference Range Interpretation [...] code = ALKP) 52 IUnit/L 20-125 N [id number] 10:50:00* Test Item Value Reference Range Interpretation Comme nts PHOSPHOROUS (test code = PHOS) MG/DL 2.5-4.9 [id number] 10:50:00* Test Item Value Reference Range Interpretation Comme nts MAGNESIUM (test code = MAG) 2.90 mg/dL 1.8-2.4 H CALCIUM [id number] 10:50:00* Test Item Value Reference Range Interpretation Comme nts CALCIUM IONIZED (test code = DMITRY) MMOL/L 1.12-1.32 COMPREHENSIVE METABOLIC [id number] 10:46:00* Test Item Value Reference Range Interpretation [...] ( test code = ALKP) IUnit/L 20-125 [id number] 10:46:00* Test Item Value Reference Range Interpretation Comme nts PHOSPHOROUS (test code = PHOS) MG/DL 2.5-4.9 [id number] 10:46:00* Test Item Value Reference Range Interpretation Comme nts MAGNESIUM (test code = MAG) mg/dL 1.8-2.4 CALCIUM [id number] 10:46:00* Test Item Value Reference Range Interpretation Comme nts CALCIUM IONIZED (test code = DMITRY) MMOL/L 1.12-1.32 CBC W/AUTO [id number] 10:19:00* Test Item Value Reference Range Interpretation [...] (test code = MDIFF) NO ARTERIAL BLOOD [id number] 09:53:00* Test Item Value Reference Range Interpretation [...] ARTERIAL (test code = TCO2A) < 5 [id number] 08:39:00* Test Item Value Reference Range Interpretation [...] 3 troponins total (including troponin done in ED)[id number] 07:39:00* Test Item Value Reference Range Interpretation Comme nts GLUBED (test code = GLUBED) 107 MG/DL 70-110 N Performed by cer tified laundry press operator at [facility] LACTIC ACID [id number] 07:06:00* Test Item Value Reference Range Interpretation Comme nts LACTIC ACID REPEAT (test cod e = LACTR) 19.1 mmol/l 0.4-1.9 - CT ABD PELVIS W/O [id number] 06:29:00Name: MAC AGUSTIN [facility] [place] : 1945 Age/S: 74 / F [address] [place] [address] Blvd Unit #:[id number] Loc: [place] [address] Phys: Facundo Phan MD Acct: [id number] Dis Date: Status: REG ER PHONE #: [phone] Exam Date: 09/26/2019 0546 FAX #: [phone] Reason: POSSIBLE PNEUMOPERITONEUM EXAMS: CPT CODE: [id number] CT ABD PELVIS W/O CONT 50781 STUDY: - CT CHEST W/O CONTRAST, - CTABD PELVIS W/O CONT 09/26/2019 4:27 AM Ordering Physician: Facundo Phan MD Patient Name: MAC AGUSTIN MR: [id number] : 1947; Age: 72 years y/o Female [...] : 1945 Age/S: 74 / F [address] [facility] [address] Unit #: [id number] Loc: [place] [address] Phys: Facundo Phan MD Acct: [id number] Dis Date: Status: REG ER PHONE #: [phone] Exam Date: 09/26/2019 0546 FAX #: [phone] Reason: POSSIBLE PNEUMOPERITONEUM EXAMS: CPT CODE: [id number] CT ABD PELVIS W/O CONT 31974 (Continued) lymphadenopathy or mass. SOFT TISSUES: Mild [...] 2 Signed Report (CONTINUED) Name: MAC AGUSTIN [facility] [place] : 1945 Age/S: 74 / F [address] [place] [address] BlvdUnit #: [id number] Loc: [place], [place] [address] Phys: Facundo Phan MD Acct: [id number] Dis Date: Status: REG ER PHONE #: [phone] Exam Date: 09/26/201946 FAX #: [phone] Reason: POSSIBLE PNEUMOPERITONEUM EXAMS: CPT CODE: [id number] CT ABD PELVIS W/O CONT 90314 (Continued) Gallbladder: Pos toperative change of cholecystectomy. [...] 3 Signed Report (CONTINUED) Name: MAC AGUSTIN [facility] [place] : 1945 Age/S: 74 / F [address] [place] [address] Unit #: [id number] Loc: [place] [address] Phys: Facundo Phan MD Acct: [id number] Dis Date: Status: REG ER PHONE #: [phone] Exam Date: 09/26/2019 0546 FAX #: [phone] Reason: POSSIBLE PNEUMOPERITONEUM EXAMS: CPT CODE: [id number] CT ABD PELVIS W/O CONT 94664 (Continued) Mild sigmoid diverticulosis. Moderately dilated stomach [...] medication injection. Postoperative change of cholecystectomy. SL: [facility] at 0629 Reported and signed by: Amadeo Edward M.D. PAGE 4 Signed Report (CONTINUED)Name: MAC AGUSTIN [facility] [place] : 1945 Age/S: 74 / F [address] [place] [address] Unit #:[id number] Loc: [place] [address] Phys: Facundo Phan MD Acct: [id number] Dis Date: Status: REG ER PHONE #: [phone] Exam Date: 09/26/2019 0546 FAX #: [phone] Reason: POSSIBLE PNEUMOPERITONEUM EXAMS: CPT CODE: [id number] CT ABD PELVIS W/O CONT 07135 (Continued) CC: Facundo Phan MD Technologist:Kait Mckeon, (R) CTDI: DLP: Trnscb Date/Time: 09/26/2019 (628) [email or web address] Orig Print D/T: S: 09/26/2019 (0632) PAGE 5 Signed Report- CT CHEST W/O [id number] 06:29:00Name: MAC AGUSTIN [facility] [place] : 1945 Age/S: 74 / F [address] [place], [place] [address] Unit #:[id number] Loc: [place] [address] Phys: Facundo Phan MD Acct: [id number] Dis Date: Status: REG ER PHONE #: [phone] Exam Date: 09/26/2019 0546 FAX #: [phone] Reason: POSSIBLE PNEUMOPERITONEUM EXAMS: CPT CODE: [id number] CT CHEST W/O CONTRAST 11080 STUDY: - CT CHEST W/O CONTRAST, - CT ABD PELVIS W/O CONT 09/26/2019 4:27 AM Ordering Physician: Facundo Phan MD Patient Name: MAC AGUSTIN MR: [id number] : 1947; Age: 72 years y/o Female [...] 1 Signed Report (CONTINUED) Name: MAC AGUSTIN [facility] Crescencio Reece : 1945 Age/S: 74 / F [address] [place], [place] [address] Unit #: [id number] Loc: [place] [address] Phys: Facundo Phan MD Acct: [id number] Dis Date: Status: REG ER PHONE #: [phone] Exam Date: 09/26/201946 FAX #: [phone] Reason: POSSIBLE PNEUMOPERITONEUM EXAMS: CPT CODE:[id number] CT CHEST W/O CONTRAST 67996 (Continued) lymphadenopathy or mass. SOFT TISSUES: Mild [...] Report (CONTINUED) Name: MAC AGUSTIN [facility] : 1945 Age/S: 74 / F [address] [place] [address] Unit #: [id number] Loc: [place] [address] Phys: aFcundo Phan MD Acct: [id number] Dis Date: Status: REG ER PHONE #: [phone] Exam Date: 09/26/2019545 FAX #: [phone] Reason: POSSIBLE PNEUMOPERITONEUM EXAMS: CPT CODE: [id number] CT CHEST W/O CONTRAST 10461 (Continued) Gallbladder: Pos toperative change of cholecystectomy. [...] 3 Signed Report (CONTINUED) Name: MAC AGUSTIN [facility] : 1945 Age/S: 74 / F [address] [place] [address] Unit #: [id number] Loc: [place] [address] Phys: Facundo Phan MD Acct: [id number] Dis Date: Status: REG ER PHONE #: [phone] Exam Date: 09/26/2019 0546 FAX #: [phone] Reason: POSSIBLE PNEUMOPERITONEUM EXAMS: CPT CODE: [id number] CT CHEST W/O CO NTRAST 48967 (Continued) Mild sigmoid diverticulosis. Moderately dilated stomach [...] 4 Signed Report (CONTINUED) Name[facility] 1945 Age/S: 74 / F [address] [place] [address] Unit #: [id number] Loc: [place] [address] Phys: Facundo Phan MD Acct: [id number] Dis Date: Status: REG ER PHONE #: [phone] Exam Date: 09/26/201946 FAX #: [phone] Reason: POSSIBLE PNEUMOPERITONEUM EXAMS: CPT CODE: [id number] CT CHEST W/O CONTRAST 85783 (Continued) CC: Facundo Phan MD Technologist:RT Randy(R) CTDI: DLP: Trnscb Date/Time: 09/26/2019 (628) [email or web address] Orig Print D/T: S: 09/26/2019 (0632) PAGE 5 Signed Report- CT HEAD/BRAIN W/O [id number] 06:09:00Name: NIKOLEMAC A [facility] : 1945 Age/S: 74 / F [address] [place] [address] Unit #: [id number] Loc: [place] [address] Phys: Facundo Phan MD Acct: [id number] Dis Date: Status: REG ER PHONE #: [phone] Exam Date: 09/26/2019 0546 FAX #: [phone] Reason: ALTERED MENTAL STATUS, EXAMS: CPT CODE: [id number] CT HEAD/BRAIN W/O CONT 78026 STUDY: - CT HEAD/BRAIN W/O CONT 09/26/2019 5:23 AM Ordering Physician: Facundo Phan MD Patient Name: MAC AGUSTIN MR: [id number] : 1947; Age: 72 years y/o Female [...] Report (CONTINUED) Name: MAC AGUSTIN [facility] : 1945 Age/S: 74 / F [address] [place] [address] Unit #: [id number] Loc: [place] [address] Phys: Facundo Phan MD Acct: [id number] Dis Date: Status: REG ER PHONE #: [phone] Exam Date: 09/26/2019 0546 FAX #: [phone] Reason: ALTERED MENTAL STATUS, EXAMS: CPT CODE: [id number] CTHEAD/BRAIN W/O CONT 77662 (Continued) remaining paranasal sinuses are clear. MASTOIDS: [...] PAGE 2 Signed Report- CT C-SPINE W/O [id number] 06:04:00Name: MAC AGUSTIN Jaki [facility] : 1945 Age/S: 74 / F [address] [place] [address] Unit #:[id number] Loc: [place] [address] Phys: Facundo Phan MD Acct: [id number] Dis Date: Status: REG ER PHONE #: [phone] Exam Date: 09/26/2019 0546 FAX #: [phone] Reason: ALTERED MENTAL STATUS EXAMS: CPT CODE: [id number] CT C-SPINE W/O CONT 86073 STUDY: - CT C-SPINE W/O CONT 09/26/2019 5:23 AM Ordering Physician: Facundo Phan MD Patient Name: MAC AGUSTIN MR: [id number] : 1947; Age: 72 years y/o Female [...] Signed Report (CONTIN UED) Name: MAC AGUSTIN [facility] : 1945 Age/S: 74 / F [address] [place] [address] Unit #: [id number] Loc: [place] [address] Phys: Fcaundo Phan MD Acct: [id number] Dis Date: Status: REG ER PHONE #: [phone] Exam Date: 09/26/2019 0546 FAX #: [phone] Reason: ALTERED MENT AL STATUS EXAMS: CPT CODE: [id number] CT C-SPINE W/O CONT 97228 (Continued) Mastoids: Mild partial opacification of the [...] PAGE 2 Signed Report- XR CHEST 1 [id number] 05:43:00FAX: Facundo Rivas MD [phone] Lillian: St: REG Name: MAC AGUSTIN [facility] [place] : 1947 Age/S: 72/F [address] [place] [address] Unit #: [id number] Loc: [place] [address] Phys: Facundo Phan MD Acct: [id number] Dis Date: Status: REG ER PHONE #: [phone] Exam Date: 09/26/2019 0532 FAX#: [phone] Reason: ALTERED MENTAL STATUS EXAMS: CPT CODE: [id number] XR CHEST 1 V 65517 Study:- XR CHEST 1 V 09/26/2019 5:23 AM Patient Name: MAC AGUSTIN MR: [id number] : 1947; Age:72 years y/o Female Ordering [...] 1 Signed Report (CONTINUED) FAX:Facundo Rivas MD [phone] [place]: St: REG Name: MAC AGUSTIN [facility] : 1947 Age/S: 72/F[address] [facility] [address] Unit #: [id number] Loc: [place] [address] Phys: Facundo Phan MD Acct: [id number] Dis Date: Status: REG ER PHONE #: [phone] Exam Date: 09/26/2019 0532 FAX #: [phone] Reason: ALTERED MENTAL STATUS EXAMS: CPT CODE: [id number] XR CHEST 1 V 16565 (Continued) CC: Facundo Phan MD Technologist: RT Oliverio(R) Trnscrd Date/Time/By: 09/26/2019 (0543) : By: [email or web address] Orig Print D/T: S: 09/26/2019 (0546) PAGE 2 Signed ReportARTERIAL BLOOD [id number] 04:53:00* Test Item Value Reference Range Interpretation Comme [facility] ARTERIAL BLOOD GAS PH (test code [...] = CABRERA) Room Air Performed by certified laundry press operator at [facility] ABG TEMPERATURE (test code = TEMPA) 91.7 F ABG SITE (test code = SITEA) R Rad TCO2 ARTERIAL (test code = TCO2A) < 5 B-TYPE NATRIURETIC [id number] 04:31:00* Test Item Value Reference Range Interpretation Comme nts B-TYPE NATRIURETIC PEPTIDE ( test code = BNP) 304.2 PG/ML 0-100 H UA RFLX MICR CULT IF [id number] 04:27:00* Test Item Value Reference Range Interpretation [...] LACT) 14.8 mmol/L 0.4-1.9 HH BASIC METABOLIC [id number] 04:23:00* Test Item Value Reference Range Interpretation [...] CA) 5.6 mg/dL 8.0-10.5 LL HEPATIC FUNCTION [id number] 04:23:00* Test Item Value Reference Range Interpretation [...] code = ALKP) 39 IUnit/L 20-125 N [id number] 04:23:00* Test Item Value Reference Range Interpretation Comme nts LIPASE (test code = LIP) 139 IUnit/L 73-393 N [id number] 04:23:00* Test Item Value Reference Range Interpretation Comme nts MAGNESIUM (test code = MAG) 0.90 mg/dL 1.8-2.4 LL TSH REFLEX TO [id number] 04:23:00* Test Item Value Reference Range Interpretation Comme nts TSH REFLEX TO FT4 (test code = TSHREFLEX) 0.68 IU/mL 0.42-5.47 N [id number] 04:23:00* Test Item Value Reference Range Interpretation Comme nts TROPONIN-I (test code = TROPI) 0.029 ng/mL 0.000-0.045 N Negative: <= 0.0 45 Positive: >= 0.046 Correlation with serial results, other cardiac markers andclinical findings is necessary to determine the clinicalsignificance of this result. Results using different methodologies should not be comparedto one another as quantitative results may vary by method. CBC W/AUTO [id number] 04:22:00* Test Item Value Reference Range Interpretation [...] REQUIRED (test code = MDIFF) YES WBC [id number] 04:22:00* Test Item Value Reference Range Interpretation [...] code = PLTMORPH) LARGE PLATELETS CBC W/AUTO [id number] 04:19:00* Test Item Value Reference Range Interpretation [...] REQUIRED (test code = MDIFF) YES WBC [id number] 04:19:00* Test Item Value Reference Range Interpretation Comme nts ANISOCYTOSIS (test code = ANISO) PLATELET ESTIMATE (test code = PLTEST) THOUSAND ADEQUATE BASIC METABOLIC [id number] 04:19:00* Test Item Value Reference Range Interpretation [...] CA) 5.6 mg/dL 8.0-10.5 LL HEPATIC FUNCTION [id number] 04:19:00* Test Item Value Reference Range Interpretation [...] code = ALKP) 39 IUnit/L 20-125 N [id number] 04:19:00* Test Item Value Reference Range Interpretation Comme nts LIPASE (test code = LIP) 139 IUnit/L 73-393 N [id number] 04:19:00* Test Item Value Reference Range Interpretation Comme nts MAGNESIUM (test code = MAG) 0.90 mg/dL 1.8-2.4 LL TSH REFLEX TO [id number] 04:19:00* Test Item Value Reference Range Interpretation Comme nts TSH REFLEX TO FT4 (test code = TSHREFLEX) IU/mL 0.42-5.47 [id number] 04:19:00* Test Item Value Reference Range Interpretation Comme nts TROPONIN-I (test code = TROPI) 0.029 ng/mL 0.000-0.045 N Negative: <= 0.0 45 Positive: >= 0.046 Correlation with serial results, other cardiac markers andclinical findings is necessary to determine the clinicalsignificance of this result. Results using different methodologies should not be comparedto one another as quantitative results may vary by method. CBC W/AUTO [id number] 04:19:00* Test Item Value Reference Range Interpretation [...] REQUIRED (test code = MDIFF) YES WBC [id number] 04:19:00* Test Item Value Reference Range Interpretation Comme nts ANISOCYTOSIS (test code = ANISO) PLATELET ESTIMATE (test code = PLTEST) THOUSAND ADEQUATE - XR CHEST 1 [id number] 04:10:00FAX: Facundo Rivas MD [phone] [place]: St: PRE Name: MAC AGUSTIN [facility] : 1947 Age/S: 72/F [address] [place] [address] Unit #: [id number] Loc: [place] [address] Phys: Siva Phan Acct: [id number] Dis Date: Status: PRE ER PHONE #: [phone] Exam Date: 09/26/2019 0405 FAX #: [phone] Reason: SOB EXAMS: CPT CODE: [id number] XR CHEST 1 V 01267 Study: - XR CHEST 1 V 09/26/2019 3:41 AM Patient Name: MAC AGUSTIN MR: [id number] : 1947; Age: 72 years y/o Female [...] Signed Report (CONTINUED) FAX: Facundo Rivas MD [phone] [place]: St: PRE --- Name: MAC AGUSTIN [facility] [place] : 1947 Age/S: 72/F [address] [place] [address] Unit #: [id number] Loc: [address] [address] Phys: Facundo Phan MD Acct: [id number] Dis Date: Status: PRE ER PHONE #: [phone] Exam Date: 09/26/2019 0405 FAX #: [phone] Reason: SOB EXAMS: CPT CODE: [id number] XR CHEST 1 V 49805 (Continued) CC: Facundo Phan MD Technologist: Joselito RT(R) Trnscrd Date/Time/By: 09/26/2019 (0410) : By: [email or web address] Orig Print D/T: S: 09/26/2019 (0414) PAGE 2 Signed ReportPROTHROMBIN [id number] 04:09:00* Test Item Value Reference Range Interpretation [...] Infarction (to prevent recurrent infarct). THROMBOPLASTIN TIME [id number] 04:09:00* Test Item Value Reference Range Interpretation Comme nts THROMBOPLASTIN TIME PARTIAL (test code = PTT) 22.2 Seconds 25.0-39.5 L Therapeutic Rang e: 50.4 - 88.3 Seconds Effective 09/25/2018 [id number] 04:00:00* Test Item Value Reference Range Interpretation Comme nts GLUBED (test code = GLUBED) 147 MG/DL 70-110 H Performed by cer moe laundry press operator at [facility] CBC W/AUTO [id number] 04:00:00* Test Item Value Reference Range Interpretation [...] DIFF REQUIRED (test code = MDIFF) BLOOD [id number] 07:52:00* Test Item Value Reference Range Interpretation Comme nts Report Text (test code = Report Text) [facility] 2018-11-12 847 Report Text7 (test code = Report Text7) BLOOD CULTURES HELD FOR 5 DAYS BEFORE FINAL Report Text8 (test code = Report Text8) Report Text9 (test code = Report Text9) [employer] SUGGESTS THAT Report Text10 [...] Report Text20 (test code = Report Text20) [facility] 2018-11-13 626 Report Text21 (test code = Report Text21) NO GROWTH WITHIN 1 DAY Report Text22 (test code = Report Text22) PRELIMINARY REPORT Report Text23 (test code = Report Text23) Report Text24 (test code = Report Text24) [facility] 2018-11-14 905 Report Text25 (test code = Report Text25) NO GROWTH WITHIN 2 DAYS Report Text26 (test code = Report Text26) PRELIMINARY REPORT Report Text27 (test code = Report Text27) Report Text28 (test code = Report Text28) [facility] 2018-11-17 752 Report Text29 (test code = Report Text29) NO GROWTH WITHIN 5 DAYS Report Text30 (test code = Report Text30) FINAL REPORT HEPATITIS C ANTIBODY [id number] 08:35:00* Test Item Value Reference Range Interpretation [...] are prelimenary and confirmation results will follow. [id number] 08:29:00* Test Item Value Reference Range Interpretation [...] (test code = CRYSTYPE) URIC ACID INFLUENZA [id number] 08:21:00* Test Item Value Reference Range Interpretation Comme nts FLU A (test code = FLU A) NEGATIVE NEGATIVE FLU B (test code = FLU B) NEGATIVE NEGATIVE FLU INTERNAL POSITIVE CNTRL (test code = FLU IPC) PASS PASS INFLUENZA LOT # (test code = FLULOT) [id number] INFLUENZA EXPIRATION DATE (t est code = FLUEXP) 11-09-2020 ABDOMEN 2 [id number] 07:48:[address] [id number] IMAGING REPORTPatient Name: MAC HALL ADate of Service: [id number]: 73 Sex: F Order #: [id number] Room: [facility]: [facility] X-Ray Number: [id number] Record Number: [id number] Hospital Number: [id number] Physician: Roseanne ORTIZ Physician: ASHLEY SALAS 2 [...] 7:46 AMLegally authenticated by LISA Simms 2018-11-12 07:46:[id number] 07:38:00* Test Item Value Reference Range Interpretation [...] (test code = NEUT) 5.8 K/UL 1.2-7.2 [id number] 07:20:00* Test Item Value Reference Range Interpretation Comme nts LIPASE (test code = LIPA) 358 U/L 23-300 H LIVER [id number] 07:20:00* Test Item Value Reference Range Interpretation [...] = ALT) 26 U/L 13-69 ISTAT CHEM [id number] 06:45:00* Test Item Value Reference Range Interpretation [...] code = ISTANGAP) 18 MMOL/L WHOLE BLOOD [id number] 21:25:00* Test Item Value Reference Range Interpretation Comme nts WHOLE BLOOD GLUCOSE (test co de = POC GLU) 178 MG/DL 70-99 [id number] 20:13:00* Test Item Value Reference Range Interpretation [...] code = NEUT) 15.7 K/UL 1.2-7.2 H [id number] 19:51:00* Test Item Value Reference Range Interpretation [...] (test code = UAMICRO) NO WHOLE BLOOD [id number] 19:40:00* Test Item Value Reference Range Interpretation Comme nts WHOLE BLOOD GLUCOSE (test co de = POC GLU) 253 MG/DL 70-99 H ISTAT CHEM [id number] 18:15:00* Test Item Value Reference Range Interpretation [...] = ISTANGAP) 17 MMOL/L CT HEAD W/O [id number] 18:14:[address] [id number] IMAGING REPORTPatient Name: MAC HALL of Service: [id number]: 73 Sex: F Order #: [id number] Room: [facility]: 1945 X-Ray Number: [id number] Record Number: [id number] Hospital Number: [id number] Physician: KIMBERLY HIGGINS TANOrdering Physician: IHSAN SALAS [...] by EDER Craft 2018-10-20 18:12:33CHEST 1 VIEW [id number] 18:00:[address] [id number] IMAGING REPORTPatient Name: Jd HALL of Service: [id number]: 73 Sex: F Order #: [id number] [facility] 1945 [facility] Number: [id number] Record Number: [id number] Hospital Number: [id number] Physician: KIMBERLY HIGGINS TANOrdering Physician: Blanca SALAS.10/20/2018 [...] NEGATIVE A BILIRUBIN; Normal (test code = 02124-1) NEGATIVE NEGATIVE N KETONES; Normal (test code = 70236-8) NEGATIVE NEGATIVE N OCCULT BLOOD; Normal (test c ode = 97272-0) NEGATIVE NEGATIVE N PROTEIN; Normal (test code = 59612-6) NEGATIVE NEGATIVE N NITRITE (test code = NITRITE) NEGATIVE NEGATIVE N LEUKOCYTE ESTERASE (test cod e = LEUKOCYTE ESTERASE) NEGATIVE NEGATIVE N WBC; Normal (test code = 6690-2) 0-5 < OR = 5 N RBC; Normal (test code = 789-8) NONE SEEN < OR = 2 N SQUAMOUS EPITHELIAL CELLS; N ormal (test code = 64754-0) NONE SEEN < OR = 5 N BACTERIA; Normal (test code = 630-4) NONE SEEN NONE SEEN N HYALINE CAST; Normal (test c ode = 59516-8) NONE SEEN NONE SEEN N [facility][Q] REFLEXIVE URINE [id number] 15:24:00* Test Item Value Reference Range Interpretation Comme nts REFLEXIVE URINE CULTURE (test code = REFLEXIVE URINE CULTURE) NO CULTURE INDICATED [facility][O] Urine Dipstick (In Office)2018-07-09 16:23:00* Test Item Value Reference Range Interpretation Comme nts Glucose (test code = Glucose) 1000 LEUKOCYTES (test code = LEUKOCYTES) negative NITRITE (test code = 57256-9) negative UROBILINOGEN (test code = 03207-6) 0.2 PROTEIN (test code = 49438-3) negative pH (test code = pH) 5.0 URINE BLOOD (test code = 36038-0) trace SPECIFIC GRAVITY (test code = 2965-2) 1.020 KETONES (test code = 14300-8) 40 BILIRUBIN (test code = 10339-5) negative [facility]] CULTURE, URINE, [id number] 14:55:00* Test Item Value Reference Range Interpretation Comme nts CULTURE (test code = CULTURE) See Comment A CULTURE, URINE, ROUTINE MICRO NUMBER: [id number] TEST STATUS: FINAL SPECIMEN SOURCE: URINE SPECIMEN [...] are considered colonizers. No further testing performed. [facility]] LIPID [id number] 14:55:00* Test Item Value Reference Range Interpretation Comme nts CHOLESTEROL, TOTAL; Above High Threshold (test code = 2093-3) 298 mg/dl <200 HDL CHOLESTEROL; Below Low Threshold (test code = 2085-9) 48 mg/dl >50 TRIGLYCERIDES; Above High Threshold (test code = 2571-8) 350 mg/dl <150 LDL-CHOLESTEROL; Above High Threshold (test code = 21394-8) 191 {MG/DL JENNIFER} LDL-C levels > or = 190 mg/dL may indicate familial hypercholesterolemia (FH). Clinical assessment and measurement of blood lipid levels should be considered for all first degree relatives of patients with an FH diagnosis. For questions about testing for familialhypercholesterolem ia, please call [facility] at [email or web address].Fanta T, et al. J National Lipid Association [...] LDL-C. Ronni YAN et al. VANESSA. 2013;310(19): 7654-1850 ([email or web address]) CHOL/HDLC RATIO (test code = CHOL/HDLC RATIO) [...] <70 mg/dL) is considered a therapeutic option. [facility]] MICROALBUMIN, RANDOM URINE (W/CREATININE)2018-07-09 14:55:00 * Test [...] a patient to bewithin a diagnostic category. [facility][QL] CMP [id number] 14:55:00* Test Item Value Reference Range Interpretation [...] is approximately 13% higher for peopleidentified as -[place] Island[place]. eGFR NON- (test code = eGFR NON-) [...] N BILIRUBIN, TOTAL; Normal (test code = 22322-3) 0.5 mg/dl 0.2-1.2 N ALKALINE PHSPHATASE (test code = ALKALINE PHSPHATASE) 76 u/l 33-130 N AST; Normal (test code = 1916-6) 13 u/l 10-35 N ALT; Normal (test code = 1742-6) 23 u/l 6-29 N [facility]] CBC (INCLUDES DIFF/PLT)2018-07-09 14:55:00* Test Item Value Reference Range Interpretation Comme nts WHITE BLOOD CELL COUNT (test code = WHITE BLOOD CELL COUNT) 10.0 {Thousand/u} 3.8-10.8 N RED BLOOD CELL COUNT (test code = RED BLOOD CELL COUNT) 5.42 {Million/uL} 3.80-5.10 HEMAGLOBIN; Above High Threshold (test code = 62467-0) 16.0 g/dl 11.7-15.5 HEMATOCRIT; Above High Threshold (test code = 4544-3) 48.4 % 35.0-45.0 MCV; Normal (test code = 787-2) 89.3 fL 80.0-100.0 N MCHC; Normal (test code = 75005-2) 33.1 g/dl 32.0-36.0 N RDW; Normal (test code = 788-0) 13.0 % 11.0-15.0 N PLATELET COUNT; Normal (test code = 777-3) 334 {Thousand/u} 140-400 N MPV; Normal (test code = 30197-8) 11.9 fL 7.5-12.5 N ABSOLUTE NEUTROPHILS (test code = ABSOLUTE NEUTROPHILS) 5740 {cells/uL} 9302-4815 N ABSOLUTE LYMPHOCYTES (test code = ABSOLUTE [...] % N MONOCYTES; Normal (test code = 32363-1) 7.0 % N EOSINOPHILS; Normal (test code = 24565-4) 2.2 % N BASOPHILS; Normal (test code = 95834-7) 1.0 % N [facility]] TSH, 3RD [id number] 14:55:00* Test Item Value Reference Range Interpretation Comme nts TSH; Normal (test code = 57848-1) 1.49 {MIU/L} 0.40-4.50 N [facility][O] Hemoglobin A1c (in office)2018-07-09 13:38:00* Test Item Value Reference Range Interpretation Comme nts HEMOGLOBIN A1c (test code = 4548-4) 12.5 [facility]] CULTURE, URINE, [id number] 00:00:00* Test Item Value Reference Range Interpretation Comme nts CULTURE (test code = CULTURE) See Comment A CULTURE, URINE, ROUTINE MICRO NUMBER: [id number] TEST STATUS: FINAL SPECIMEN SOURCE: URINE SPECIMEN [...] are considered colonizers. No further testing performed. [facility] Notes Date/Time Note Provider Source 2019-10-12 11:01:00 [facility] ([facility]) Hospitalist Discharge Summary REPORT#:[id number] REPORT STATUS: Signed DATE:10/12/19 TIME: 1101 PATIENT: MAC AGUSTIN UNIT #: [id number] ROOM/BED: [place] [address] : [birth year] AGE: 74 SEX: F ATTEND: Joel Myers MD ADM AUTHOR: Nickie Ha MD * ALL edits or amendments must be made on the electronic/computer document * PCP PCP PCP: PCP: No Primary or Family Physician Discharge to: correction General Information Problem List/A P: 1. Acute renal failure 2. Physical deconditioning 3. Hypomagnesemia 4. Lactic acidosis 5. Acute hypoactive delirium due to another medical condition Date of admission: Observation Start Date: Date of admission: 09/26/19 Discharge date: 10/12/19 Hospital course: Severe lactic acidosis Severe metabolic acidosis Acute renal failure Hypocalcemia Hypomagnesemia ?Septic shock vs lactic acidosis from metformin Dehydration Hypothermia DM HTN Dementia with behavior disturbance persistent hypoglycemia Plan: Ms. Agustin is a 74 yo female with non-specific symptoms of not feeling well, poor appetite that was found to have abnormal labs at [place], sent to ED for evaluation. In the [...] ischemic bowel. Will continue empiric Zosyn. - Zosyn - blood cultures pending - hold home meds - Accuchecks and SSI - replace electrolytes - heparin for DVT prophylaxsis 09/26 Improved lactic acidosis with dialysis. Given improvement, likely [...] life, not a good candidate for work up/treatment. BS well controlled with current insulin schedule Check labs in am 09/27 Lactate remains normal, continue to hold metformin Pt noted return of anion gap acidosis with ketonuria. Discussed with Dr. Aguilar, nephrology. Pt placed on DKA protocol to close anion gap, on D10 for glucose needs while on insulin drip. BNP elevated with clear lungs, no dependent edema, decreased O2 requirement. Give one dose of Lasix 40 mg IV, check CXR in the am, monitor for volume overload while getting DKA fluids. WBC decreased to 15, continue abx for now, d/c after 5 days Some blood noted in stool, CT with signs of chronic inflammation. Given her dementia, unsure that patient would tolerate bowel prep. GI consulted. Appreciate input on area in stomach with possible neoplasm. Check labs in am 09/28 Anion gap closed, off insulin drip Elevated lactate, monitor CXR shows severe vascular congestion and pleural fluid, likely related to fluids given for lactic acidosis and metabolic acidosis, pt not in respiratory distress - Lasix 60 mg IV q8 iniated by nephrology - D10 at 30 cc/hr to maintain blood sugar WBC decreased to 13, d/c abx after 5 days Colon with chronic inflammation, no work up per GI Will need EGD to evaluate abnormality in gastric wall once improved Check labs in am 4/20 Off insulin drip CXR reviewed Cont lasix WBC count came down to 10.5 On zosyn Transfer to the floor dw RN, [employer]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 Will test for COVID-19 10/07/2019 - Rapid COVID and PCR test negative - transfer out [address] - replete K+ and Mg+ - off IV fluids. - renal function improving 10/08/2019 - pt reports feeling ok today, but is refusing all nursing care and refuses lab draw today - blood sugars adequately controlled for now, continue to hold metformin - appetite improved, monitor blood sugars closely, may need to start SSI as patient starts to eat more - nephrology following, continue to monitor renal function, HD per nephrology - d/c planning: reutrn to SNF when medically stable 10/09/2019 - cooperative with care today, feeling OK - blood sugars elevated yesterday PM, continue sliding scale insulin and monitor for now - Cr stable at 2.5 today, continue to monitor renal function, HD per nephrology - encourage oral intake - k 3.3 today, replacement ordered per renal, mag replacement ordered per renal 10/10/2019 - blood sugars fluctuating. will be very careful in giving long acting agents as her dietary intake is erratic which will make her prone to develop hypoglycemia - continue sliding scale - monitor renal function closely. renal service following - replete lytes - back to SNF/NH once renal function stabilizes total time spent with evaluating patient/data as well as providing education/ counselling to patient was more than 35 minutes 5/2 stable for discharge back to SNF medications reviewed and reconciled stop metformin due to above Cr stable 2.2 follow up [facility] nephrology. >30 min, 36 min. Med Rec Med Rec Discharge meds: Stop taking the following medications: metFORMIN (GLUCOPHAGE) 1,000 MG TAB 1,000 MILLIGRAM ORAL TWICE DAILY. Continue taking these medications: QUEtiapine (SEROquel) 25 MG TAB 25 MILLIGRAM ORAL BEDTIME. DONEPEZIL (ARICEPT) 10 MG TAB 10 MILLIGRAM ORAL BEDTIME. busPIRone (BUSPAR) 5 MG TAB 5 MILLIGRAM ORAL TWICE DAILY. ACETAMINOPHEN (TYLENOL) 500 MG TAB 500 MILLIGRAM ORAL EVERY 6 HOURS NEEDED. as needed for HEADACHE Start taking the following new medications: INSULIN LISPRO (HumaLOG U-100 CARTRIDGE) 100 UNIT/ML CARTRIDGE 0 UNIT SUBCUTANEOUS BEFORE MEALS AND AT BEDTIME. Days = 28 No Refills MEGESTROL (MEGACE 400 MG/10 ML) 400 MG/10 ML (40 MG/ML) ORAL.SUSP 800 MILLIGRAM ORAL DAILY. Days = 30 No Refills Zinc Oxide (Zinc Oxide) 20 % OINT...G. 1 APPLIC TOPICAL TWICE DAILY. Days = 30 No Refills Discharge Instructions Diet: low sodium Activity: as tolerated Prescriptions: e-prescribe Discharge management: greater than 30 mins Follow-up Appointments PCP: PCP: No Primary or Family Physician Attending Physician: Attending Physician: Joel Myers MD Consulting provider 1: Provider 1: Rabia Aguilar MD Specialty: NEPHROLOGY Consulting provider 2: Provider 2: Israel Vaughan MD Consulting provider 3: Provider 3: Esau Reid MD Consulting provider 4: Provider 4: Ty Diaz MD Objective General VS/I O: Vital Signs: Date Time Temp Pulse Resp [...] I O ending at 0700: 10/11 0700 05 1900 Intake Total 250 768.00 Output Total Balance 250 768.00 Intake, IV 50.00 Intake, Oral 250 718 Intake, Oral 0 Supplement Number 1 2 Bowel Movements Number 4 2 Incontinent Voids Number Voids 1 Patient 57 kg Weight Weight Bed scale Measurement Method Medications: Active Meds + DC'd Last 24 Hrs Magnesium Sulfate 50 ML ONCE ONE IV [...] Heparin Sodium 5,000 UNIT Q12HR SUBQ Physical Exam General appearance: alert Head/Eyes: atraumatic, normocephalic ENT: moist mucosal membranes Neck: non-tender, no JVD, no masses or swelling Cardiovascular: normal heart sounds, regular rate rhythm Respiratory: decreased breath sounds, rales (basal), rhonchi, symmetric expansion, no distress, no rales appreciated on anterior exam Abdomen: soft, no distention, no guarding, no rebound Genitourinary: no bladder distention Extremities: edema (bLE +1), no clubbing, no cyanosis Musculoskeletal: normal inspection Neuro/BACK SHOE WORKER: no motor deficits Skin: no rash Lymphatics: neck normal Psychiatry: normal affect Results Findings/Data: Laboratory Tests 10/11 10/11 10/10 10/10 10/10 0713 [...] (Auto) (14.0 - 32.0 %) 22.9 17.1 K[place]haw % (Auto) (4.8 - 9.0 %) 8.9 7.4 Eos % (Auto) (0.3 - 3.7 %) 0.8 0.9 Baso % (Auto) (0.0 - 2.0 %) 0.8 0.7 Neut # (Auto) (2.0 - 7.6 x10 3/uL) 5.51 7.21 Lymph # (Auto) (1.0 - 3.8 x10 3/uL) 1.91 1.68 Kershaw # (Auto) (0.1 - 0.8 x10 3/uL) [...] current med profile rev'd at 1103 RPT #:[id number] END OF REPORT [facility] 2019-10-12 06:39:00 [facility] ([facility] Nephrology Progress Note REPORT#:[id number] REPORT STATUS: Signed DATE:10/12/19 TIME: 0639 PATIENT: MAC AGUSTIN UNIT #: [id number] ROOM/BED: [place] [address] : 47 AGE: 74 SEX: F ATTEND: Joel Myers MD ADM AUTHOR: Rabia Aguilar MD * ALL edits or amendments must be made on the electronic/computer document * Subjective Chief Complaint: AMS/Lactic acidosis/NATHEN Unable to obtain: patient condition Comments: Patient seen and evaluated, HPI no change from initial, feels okay Review of Systems Unable to obtain due to: Patient's condition Objective General VS/I O: Vital Signs: Date Time Temp Pulse Resp [...] I O ending at 0700: 10/11 0700 05 1900 Intake Total 250 768.00 Output Total Balance 250 768.00 Intake, IV 50.00 Intake, Oral 250 718 Intake, Oral 0 Supplement Number 1 2 Bowel Movements Number 4 2 Incontinent Voids Number Voids 1 Patient 57 kg Weight Weight Bed scale Measurement Method Medications Active Meds + DC'd Last 24 Hrs Magnesium Sulfate 50 ML ONCE ONE IV [...] Heparin Sodium 5,000 UNIT Q12HR SUBQ Physical Exam General appearance: alert, no acute distress Head/eyes: atraumatic, normocephalic ENT: normal nose Neck: supple/no meningismus Cardiovascular: normal heart sounds, no rub Respiratory: aerating well, symmetric expansion Abdomen: soft Genitourinary: no ballard Extremities: no edema Musculoskeletal: normal inspection Neuro/BACK SHOE WORKER: altered mental status Skin: dry Results Findings/Data: Laboratory Tests 10/10 10/10 10/10 10/10 10/10 1846 [...] % (Auto) (14.0 - 32.0 %) 17.1 Kershaw % (Auto) (4.8 - 9.0 %) 7.4 Eos % (Auto) (0.3 - 3.7 %) 0.9 Baso % (Auto) (0.0 - 2.0 %) 0.7 Neut # (Auto) (2.0 - 7.6 x10 3/uL) 7.21 Lymph # (Auto) (1.0 - 3.8 x10 3/uL) 1.68 Kershaw # (Auto) (0.1 - 0.8 x10 3/uL) [...] 3/uL) 0.00 Diagnosis, Assessment Plan Free Text A P: Patient seen and evaluated, discussed with care team, images and laboratories reviewed. History of dementia History of rheumatoid arthritis History of frequent falls History of frequent UTIs History of hypertension: Currently hypotensive Hypokalemia: We will supplement Severe hypomagnesemia we will supplement Hypocalcemia: We will supplement Hypoalbuminemia Severe lactic acidosis: Etiology, could be related to septic shock, however source is unclear, rule out ischemic bowel, Zosyn, will need to review her medications if patient has been on metformin, lactic acidosis due to metformin in the setting of acute renal failure is a possibility and will do hemodialysis in the setting. Patient has been taking Metformin 1000 BID, kenneth has lactic acidosis that is induced by Metformin, discussed with deysi and ICC/Primary team will proceed with HD 09/27/2019 mental status a lot better, hemodynamically more stable, pressors being weaned off, received 6 hours of hemodialysis yesterday, her last set of blood gas showed a pH of 7.40, PCO2 25, PO2 55, lactic acid 6.2 improving, sodium is 143 potassium 3.6 CO2 20 chloride 101 BUN 13 creatinine 1.1, hemoglobin this morning 9.7, white blood count 19.78 trending down, platelet 156 , her clinical picture is consistent with metformin induced lactic acidosis, will do another session of hemodialysis, 4 hours, potassium 3.5, no ultrafiltration, will give 20 mmol of potassium phosphate and expectation of hypophosphatemia during hemodialysis. katie and evaluated during HD, discussed with RN and HD nurse 09/28/2019 laboratories from this morning showed sodium 144, potassium 3.3 we will give KCl 20 mEq IV x1, chloride 104, bicarbonate 16, creatinine 1.2, lactic acid 1.2, hemoglobin 8.4, white blood count 15.2, blood culture still negative, anion gap today is 24 with a normal lactic acid etiology unclear will repeat BMP , repeat lactic acid and order serum acetone and do urinalysis to check for urine ketones, also will do a blood gas. Ketones came back as large, This is likley starvation ketoacidosis that has been exacerbated by gluconeogenesis inhibition by Metformin and has been reported in the literature, will start Glucose and insulin drip 09/29/2019 laboratories from this morning showed sodium 142, [...] afternoon, her creatinine is 2.2, not sure what her baseline creatinine, her creatinine is relatively stable since yesterday, will monitor closely, hemoglobin is 7.8, white blood count 13.57 improving. 09/30/2019 laboratories from this morning showed sodium 138, potassium 3.5, CO2 34, chloride 100, BUN and creatinine 22 and 2.4 up some likely related to diuretics, albumin 1.8, hemoglobin 7.8, platelet 60, white blood count 10.51 continues to trend down, lactic acid 1.2 within normal limit, urine output about 1900 cc with Lasix. Chest x-ray still pending. [...] volume contraction. Will check post void resdiual 10/03/2019 laboratories from this morning showed sodium 137, potassium 3.6, CO2 28, BUN and creatinine 30 and 3.0 continue to rise, blood pressures on the low side will try midodrine 5 mg p.o. 3 times daily, hypomagnesemia 1.7 we will give magnesium sulfate 1 g IV x1, hemoglobin 8.1, white blood count 5.21, will check the results of postvoid residual. BNP 109 will increase IVF to 75 cc per h 10/04/19 Hgb 8.4, WBC 109, Na 136, K 4.1, HCO3 23, BUN 31, Creat 3.0 stable since yesterday, continue IVF 10/05/2019 laboratories from today showed hemoglobin 8, platelet 192, white blood count 7.15, sodium 138, potassium 3.3 we will give KCl 10 mEq IV x3 doses, CO2 28, BUN and creatinine 27 and 2.7 trending down, continue IV fluid. 10/06/2019 laboratories from this morning showed hemoglobin 7.6, white blood count 7.11, platelet 212, sodium 139, potassium 3.6, CO2 23, BUN and creatinine 26 and 2.6 continue to trend down, continue IV fluid. 10/07/2019 laboratories from this morning showed sodium 139, [...] start Epogen 10,000 subcu once a week. 10/10/2019 laboratories from this morning showed sodium 143, [...] morning showed sodium 141, potassium 3.2 we will give KCl 20 mEq p.o. x3 doses, CO2 27, BUN/creatinine 28 and 2.5 down from 2.6, hypomagnesemia 1.6 we will give magnesium sulfate 2 g IV x1, hemoglobin 7.6, white blood cells 8.34 at 1109 RPT #:[id number] END OF REPORT [facility] 2019-10-11 13:14:00 [facility] Hospitalist Discharge Summary REPORT#:[id number] REPORT STATUS: Signed DATE:10/11/19 TIME: 1314 PATIENT: MAC AGUSTIN UNIT #: [id number] ROOM/BED: [place] [address] : 47 AGE: 74 SEX: F ATTEND: Joel Myers MD ADM AUTHOR: Nickie Ha MD * ALL edits or amendments must be made on the electronic/computer document * PCP PCP PCP: PCP: No Primary or Family Physician Discharge to: correction General Information Problem List/A P: 1. Acute renal failure 2. Physical deconditioning 3. Hypomagnesemia 4. Lactic acidosis 5. Acute hypoactive delirium due to another medical condition Date of admission: Observation Start Date: Date of admission: 09/26/19 Discharge date: 10/11/19 Hospital course: Severe lactic acidosis Severe metabolic acidosis Acute renal failure Hypocalcemia Hypomagnesemia ?Septic shock vs lactic acidosis from metformin Dehydration Hypothermia DM HTN Dementia with behavior disturbance persistent hypoglycemia Plan: Ms. Agustin is a 74 yo female with non-specific symptoms of not feeling well, poor appetite that was found to have abnormal labs at [place], sent to ED for evaluation. In the [...] ischemic bowel. Will continue empiric Zosyn. - Zosyn - blood cultures pending - hold home meds - Accuchecks and SSI - replace electrolytes - heparin for DVT prophylaxsis 09/26 Improved lactic acidosis with dialysis. Given improvement, likely [...] life, not a good candidate for work up/treatment. BS well controlled with current insulin schedule Check labs in am 09/27 Lactate remains normal, continue to hold metformin Pt noted return of anion gap acidosis with ketonuria. Discussed with Dr. Aguilar, nephrology. Pt placed on DKA protocol to close anion gap, on D10 for glucose needs while on insulin drip. BNP elevated with clear lungs, no dependent edema, decreased O2 requirement. Give one dose of Lasix 40 mg IV, check CXR in the am, monitor for volume overload while getting DKA fluids. WBC decreased to 15, continue abx for now, d/c after 5 days Some blood noted in stool, CT with signs of chronic inflammation. Given her dementia, unsure that patient would tolerate bowel prep. GI consulted. Appreciate input on area in stomach with possible neoplasm. Check labs in am 09/28 Anion gap closed, off insulin drip Elevated lactate, monitor CXR shows severe vascular congestion and pleural fluid, likely related to fluids given for lactic acidosis and metabolic acidosis, pt not in respiratory distress - Lasix 60 mg IV q8 iniated by nephrology - D10 at 30 cc/hr to maintain blood sugar WBC decreased to 13, d/c abx after 5 days Colon with chronic inflammation, no work up per GI Will need EGD to evaluate abnormality in gastric wall once improved Check labs in am 09/29 Off insulin drip CXR reviewed Cont lasix WBC count came down to 10.5 On zosyn Transfer to the floor dw RN, [employer]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 Will test for COVID-19 10/07/2019 - Rapid COVID and PCR test negative - transfer out of [facility] - replete K+ and Mg+ - off IV fluids. - renal function improving 10/08/2019 - pt reports feeling ok today, but is refusing all nursing care and refuses lab draw today - blood sugars adequately controlled for now, continue to hold metformin - appetite improved, monitor blood sugars closely, may need to start SSI as patient starts to eat more - nephrology following, continue to monitor renal function, HD per nephrology - d/c planning: reutrn to SNF when medically stable 10/09/2019 - cooperative with care today, feeling OK - blood sugars elevated yesterday PM, continue sliding scale insulin and monitor for now - Cr stable at 2.5 today, continue to monitor renal function, HD per nephrology - encourage oral intake - k 3.3 today, replacement ordered per renal, mag replacement ordered per renal 10/10/2019 - blood sugars fluctuating. will be very careful in giving long acting agents as her dietary intake is erratic which will make her prone to develop hypoglycemia - continue sliding scale - monitor renal function closely. renal service following - replete lytes - back to SNF/NH once renal function stabilizes total time spent with evaluating patient/data as well as providing education/ counselling to patient was more than 35 minutes 10/10 stable for discharge back to SNF medications reviewed and reconciled stop metformin due to above Cr stable 2.2 follow up [facility] nephrology. >30 min, 36 min. Med Rec Med Rec Discharge meds: Stop taking the following medications: metFORMIN (GLUCOPHAGE) 1,000 MG TAB 1,000 MILLIGRAM ORAL TWICE DAILY. Continue taking these medications: QUEtiapine (SEROquel) 25 MG TAB 25 MILLIGRAM ORAL BEDTIME. DONEPEZIL (ARICEPT) 10 MG TAB 10 MILLIGRAM ORAL BEDTIME. busPIRone (BUSPAR) 5 MG TAB 5 MILLIGRAM ORAL TWICE DAILY. ACETAMINOPHEN (TYLENOL) 500 MG TAB 500 MILLIGRAM ORAL EVERY 6 HOURS NEEDED. as needed for HEADACHE Start taking the following new medications: INSULIN LISPRO (HumaLOG U-100 CARTRIDGE) 100 UNIT/ML CARTRIDGE 0 UNIT SUBCUTANEOUS BEFORE MEALS AND AT BEDTIME. Days = 28 No Refills MEGESTROL (MEGACE 400 MG/10 ML) 400 MG/10 ML (40 MG/ML) ORAL.SUSP 800 MILLIGRAM ORAL DAILY. Days = 30 No Refills Zinc Oxide (Zinc Oxide) 20 % OINT...G. 1 APPLIC TOPICAL TWICE DAILY. Days = 30 No Refills Discharge Instructions Diet: low sodium Activity: as tolerated Prescriptions: e-prescribe Discharge management: greater than 30 mins Time spent: Time spent with patient (minutes): 36 Follow-up Appointments PCP: PCP: No Primary or Family Physician Attending Physician: Attending Physician: Joel Myers MD Consulting provider 1: Provider 1: Rabia Aguilar MD Specialty: NEPHROLOGY Objective General VS/I O: Vital Signs: Date Time Temp Pulse Resp [...] 2 Bowel Movements Number 3 Incontinent Voids Medications: Active Meds + DC'd Last 24 Hrs Epoetin Dell-epbx 10,000 UNIT We SUBQ Midodrine 5 MG 0900,1300,1700 PO Pantoprazole 40 MG BID@0600,1800 PO Megestrol Acetate 800 MG DAILY PO Zinc Oxide 1 APPLIC BID TOPICAL Lidocaine 1 EA Q24H TOPICAL Insulin Human Lispro 0 AC HS SUBQ Acetaminophen 650 MG Q4H PRN PRN PO Heparin Sodium 5,000 UNIT Q12HR SUBQ Physical Exam Head/Eyes: atraumatic, normocephalic ENT: moist mucosal membranes Neck: non-tender, no JVD, no masses or swelling Cardiovascular: normal heart sounds, regular rate rhythm Respiratory: decreased breath sounds, rales (basal), rhonchi, symmetric expansion, no distress, no rales appreciated on anterior exam Abdomen: soft, no distention, no guarding, no rebound Genitourinary: no bladder distention Extremities: edema (bLE +1), no clubbing, no cyanosis Musculoskeletal: normal inspection Neuro/BACK SHOE WORKER: no motor deficits Skin: no rash Lymphatics: neck normal Psychiatry: normal affect Results Findings/Data: Laboratory Tests 10/10 10/10 10/10 10/09 10/09 1130 [...] % (Auto) (14.0 - 32.0 %) 17.1 Kershaw % (Auto) (4.8 - 9.0 %) 7.4 Eos % (Auto) (0.3 - 3.7 %) 0.9 Baso % (Auto) (0.0 - 2.0 %) 0.7 Neut # (Auto) (2.0 - 7.6 x10 3/uL) 7.21 Lymph # (Auto) (1.0 - 3.8 x10 3/uL) 1.68 Kershaw # (Auto) (0.1 - 0.8 x10 3/uL) [...] current med profile rev'd at 1317 RPT #:[id number] END OF REPORT [facility] 2019-10-11 09:50:00 [facility] Nephrology Progress Note REPORT#:[id number] REPORT STATUS: Signed DATE:10/11/19 TIME: 0950 PATIENT: MAC AGUSTIN UNIT #: [id number] ROOM/BED: [place] [address] : 47 AGE: 74 SEX: F ATTEND: Joel Myers MD ADM AUTHOR: Rabia Aguilar MD * ALL edits or amendments must be made on the electronic/computer document * Subjective Chief Complaint: AMS/Lactic acidosis/NATHEN Patient reports: No: complaints. Comments: Patient seen and evaluated, HPI no change from initial, feels okay Review of Systems Unable to obtain due to: Patient's condition Objective General VS/I O: Vital Signs: Date Time Temp Pulse Resp [...] 2 Bowel Movements Number 3 Incontinent Voids Medications Active Meds + DC'd Last 24 Hrs Magnesium Sulfate 50 ML ONCE ONE IV [...] Heparin Sodium 5,000 UNIT Q12HR SUBQ Physical Exam General appearance: alert, no acute distress Head/eyes: atraumatic, normocephalic ENT: normal nose Neck: supple/no meningismus Cardiovascular: normal heart sounds, no rub Respiratory: aerating well, symmetric expansion Abdomen: soft Genitourinary: no ballard Extremities: no edema Musculoskeletal: normal inspection Neuro/BACK SHOE WORKER: altered mental status Skin: dry Results Findings/Data: Laboratory Tests 10/10 10/09 10/09 10/09 10/09 0657 [...] (Auto) (14.0 - 32.0 %) 20.6 21.1 Kershaw % (Auto) (4.8 - 9.0 %) 6.5 7.0 Eos % (Auto) (0.3 - 3.7 %) 1.0 1.0 Baso % (Auto) (0.0 - 2.0 %) 0.6 0.3 Neut # (Auto) (2.0 - 7.6 x10 3/uL) 7.69 H 7.33 Lymph # (Auto) (1.0 - 3.8 x10 3/uL) 2.24 2.20 Kershaw # (Auto) (0.1 - 0.8 x10 3/uL) [...] H 175 H 136 H Diagnosis, Assessment Plan Free Text A P: Patient seen and evaluated, discussed with care team, images and laboratories reviewed. History of dementia History of rheumatoid arthritis History of frequent falls History of frequent UTIs History of hypertension: Currently hypotensive Hypokalemia: We will supplement Severe hypomagnesemia we will supplement Hypocalcemia: We will supplement Hypoalbuminemia Severe lactic acidosis: Etiology, could be related to septic shock, however source is unclear, rule out ischemic bowel, Zosyn, will need to review her medications if patient has been on metformin, lactic acidosis due to metformin in the setting of acute renal failure is a possibility and will do hemodialysis in the setting. Patient has been taking Metformin 1000 BID, kenneth has lactic acidosis that is induced by Metformin, discussed with deysi and ICC/Primary team will proceed with HD 09/27/2019 mental status a lot better, hemodynamically more stable, pressors being weaned off, received 6 hours of hemodialysis yesterday, her last set of blood gas showed a pH of 7.40, PCO2 25, PO2 55, lactic acid 6.2 improving, sodium is 143 potassium 3.6 CO2 20 chloride 101 BUN 13 creatinine 1.1, hemoglobin this morning 9.7, white blood count 19.78 trending down, platelet 156 , her clinical picture is consistent with metformin induced lactic acidosis, will do another session of hemodialysis, 4 hours, potassium 3.5, no ultrafiltration, will give 20 mmol of potassium phosphate and expectation of hypophosphatemia during hemodialysis. katie and evaluated during HD, discussed with RN and HD nurse 09/28/2019 laboratories from this morning showed sodium 144, potassium 3.3 we will give KCl 20 mEq IV x1, chloride 104, bicarbonate 16, creatinine 1.2, lactic acid 1.2, hemoglobin 8.4, white blood count 15.2, blood culture still negative, anion gap today is 24 with a normal lactic acid etiology unclear will repeat BMP , repeat lactic acid and order serum acetone and do urinalysis to check for urine ketones, also will do a blood gas. Ketones came back as large, This is likley starvation ketoacidosis that has been exacerbated by gluconeogenesis inhibition by Metformin and has been reported in the literature, will start Glucose and insulin drip 09/29/2019 laboratories from this morning showed sodium 142, [...] afternoon, her creatinine is 2.2, not sure what her baseline creatinine, her creatinine is relatively stable since yesterday, will monitor closely, hemoglobin is 7.8, white blood count 13.57 improving. 09/30/2019 laboratories from this morning showed sodium 138, potassium 3.5, CO2 34, chloride 100, BUN and creatinine 22 and 2.4 up some likely related to diuretics, albumin 1.8, hemoglobin 7.8, platelet 60, white blood count 10.51 continues to trend down, lactic acid 1.2 within normal limit, urine output about 1900 cc with Lasix. Chest x-ray still pending. [...] volume contraction. Will check post void resdiual 10/03/2019 laboratories from this morning showed sodium 137, potassium 3.6, CO2 28, BUN and creatinine 30 and 3.0 continue to rise, blood pressures on the low side will try midodrine 5 mg p.o. 3 times daily, hypomagnesemia 1.7 we will give magnesium sulfate 1 g IV x1, hemoglobin 8.1, white blood count 5.21, will check the results of postvoid residual. BNP 109 will increase IVF to 75 cc per h 10/04/19 Hgb 8.4, WBC 109, Na 136, K 4.1, HCO3 23, BUN 31, Creat 3.0 stable since yesterday, continue IVF 10/05/2019 laboratories from today showed hemoglobin 8, platelet 192, white blood count 7.15, sodium 138, potassium 3.3 we will give KCl 10 mEq IV x3 doses, CO2 28, BUN and creatinine 27 and 2.7 trending down, continue IV fluid. 10/06/2019 laboratories from this morning showed hemoglobin 7.6, white blood count 7.11, platelet 212, sodium 139, potassium 3.6, CO2 23, BUN and creatinine 26 and 2.6 continue to trend down, continue IV fluid. 10/07/2019 laboratories from this morning showed sodium 139, [...] start Epogen 10,000 subcu once a week. 10/10/2019 laboratories from this morning showed sodium 143, potassium 2.8 we will give KCl 10 mEq IV x4 and oral potassium KCl 20 mEq p.o. x2, CO2 30, BUN and creatinine 27 and 2.4 slightly better, hypomagnesemia 1.30 we will give magnesium sulfate 2 g IV x1. 10/11/2019 labs are not done this morning, will check results when available. at 0952 RPT #:[id number] END OF REPORT [facility] 2019-10-11 07:27:00 [facility] Rehab Progress Note REPORT#:[id number] REPORT STATUS: Signed DATE:10/11/19 TIME: 726 PATIENT: MAC AGUSTIN UNIT #: [id number] ROOM/BED: 5526-1 : 47 AGE: 74 SEX: F ATTEND: Joel Myers MD ADM AUTHOR: Lucy Ayon PA-C * ALL edits or amendments must be made on the electronic/computer document * Subjective Chief complaint: Pt seen in bed. Not much for conversation. + dementia. State she ate last night outside food brought from [employer]. No complaints. States unable to get oob. Objective General VS: Vital Signs: Date Time Temp Pulse Resp [...] 95 Room air Patient Weight Weight (lb): 123 Weight (oz): 3.81 Weight (kg): 55.900 Medications: Active Meds + DC'd Last 24 Hrs Magnesium Sulfate 50 ML ONCE ONE IV [...] Heparin Sodium 5,000 UNIT Q12HR SUBQ Nutrition assessment: The data set between the solid lines has been imported from the dietitian's assessment. Any exceptions have been noted under Provider comments. BMI Calculated: 20.5 Nutrition related diagnosis: Nutrition diagnosis details: Nutrition problem: Nutrition etiology: Nutrition signs and symptoms: Nutrition prescription: Dietitian name: Assessment completed: Provider comments on imported dietitian assessment: Physical Exam General appearance: awake Psych: normal affect HEENT: anicteric, mucosal membranes moist, sclera clear Neck: supple, no JVD Cardiovascular: regular rate rhythm, S1/S2 Respiratory: aerating well, clear bilaterally Abdomen: bowel sounds present, non-distended, soft, soft, non-tender Skin: dry, intact Musculoskeletal - general: Musculoskeletal - general: joints normal, range of motion normal, no swelling Neuro/BACK SHOE WORKER: altered mental status, alert, no motor deficits, no sensory deficits Functional Progress Functional progress: per performance of all activities: Y Precautions: Fall [...] Time: 1420 Stop Time: 1430 Treatment time ( minutes): 10 Completed by: Nico Joy Supervising Therapist: Nubia Spangler . . SCREEN 1 OF 3 SCREEN 2 OF 3 SCREEN 3 OF 3 . per performance of all activities. Y Precautions: Fall [...] TO PULL, PATIENT WAS RAISED UP TOWARD [facility]. PATIENT BED THEN PLACED IN CHAIR POSITION POST PT WITH ALL NEEDS IN REACH, BED ALARM PLACED, AND RN MADE AWARE OF PATIENT'S STATUS POST PT. If this is the patient's last treatment, this entry Start time: 1440 Stop time: 1505 Treatment Time ( minutes): 25 Completed by: Josefa Batista Conference/Supervising PT: Josephine Supervising Therapist: [email or web address] Leo Bates . Y Results Findings/Data: Laboratory Tests: 10/10 10/10 10/10 10/09 1130 1003 0657 1948 Chemistry Sodium (134 - 147 mEq/L) 142 [...] Magnesium (1.8 - 2.4 mg/dL) 1.40 L Hematology WBC (4.5 - 11.0 x10 [...] % (Auto) (14.0 - 32.0 %) 17.1 Kershaw % (Auto) (4.8 - 9.0 %) 7.4 Eos % (Auto) (0.3 - 3.7 %) 0.9 Baso % (Auto) (0.0 - 2.0 %) 0.7 Neut # (Auto) (2.0 - 7.6 x10 3/uL) 7.21 Lymph # (Auto) (1.0 - 3.8 x10 3/uL) 1.68 Kershaw # (Auto) (0.1 - 0.8 x10 3/uL) [...] - 110 MG/DL) 175 H Diagnosis, Assessment Plan Problem List/A P: 1. Acute renal failure 2. Physical deconditioning 3. Hypomagnesemia 4. Lactic acidosis 5. DKA (diabetic ketoacidoses) 6. Metabolic acidosis 7. Gastric distention Free Text A P: 74 years old female with past medical history significant for Alzheimer's dementia, behavioral disturbance, hypertension, type 2 diabetes mellitus, migraine headaches, anxiety disorder, bowel and bladder incontinence, rheumatoid arthritis, frequent UTI. She was admitted secondary to [...] dementia she would benefit from returning [facility] [facility] following her acute care stay. I discussed with the patient's [id number] who is on the chart as 1 of the contacts and she states their wish is for her to return to [facility] once medically cleared. 10/01: Encourage particpation with therpajosephine.C. Diff not collected. Pt hgb stable. SNF once ready to be discharged. 10/02: Pt [...] but performing bed exercises. Poor po intake. Plan is for her to return to [facility] 10/10: Pt seen ate dinner last night. Continue to encourage po intake. Self limiting with OOB with therapy. SNF soon. Rehab attestation: Face to face exam completed. Treatment plan discussed with patient. at 1250 RPT #:[id number] END OF REPORT [facility] 2019-10-10 22:35:00 [facility] ([facility]) Rehab Progress Note REPORT#:[id number] REPORT STATUS: Signed DATE:10/10/19 TIME: 2234 PATIENT: MAC AGUSTIN UNIT #: [id number] ROOM/BED: 5526-1 : 47 AGE: 74 SEX: F ATTEND: Joel Myers MD ADM AUTHOR: Lucy Ayon PA-C * ALL edits or amendments must be made on the electronic/computer document * Subjective Chief complaint: Pt seen in bed. Not much for conversation. + dementia. State does not want her lunch, but agrees to eat a oatmeal cookie, but will not pick it up. Objective General VS: Vital Signs: Date Time Temp Pulse Resp [...] 95 Room air Patient Weight Weight (lb): 123 Weight (oz): 3.81 Weight (kg): 55.900 Medications: Active Meds + DC'd Last 24 Hrs Magnesium Sulfate 50 ML ONCE ONE IV [...] Heparin Sodium 5,000 UNIT Q12HR SUBQ Physical Exam General appearance: alert, awake, no acute distress, no respiratory distress Psych: normal affect HEENT: anicteric, mucosal membranes moist, sclera clear Neck: supple, no JVD Cardiovascular: regular rate rhythm, S1/S2 Respiratory: aerating well, clear bilaterally Abdomen: bowel sounds present, non-distended, soft, soft, non-tender Skin: dry, intact Musculoskeletal - general: Musculoskeletal - general: joints normal, range of motion normal, no swelling Neuro/BACK SHOE WORKER: altered mental status, alert, no motor deficits, no sensory deficits Functional Progress Functional progress: Precautions: Fall 02 Contact Weightbearing Restrictions: [...] Time: 1420 Stop Time: 1430 Treatment time ( minutes): 10 Completed by: Nico Joy Supervising Therapist: Nubia Spangler Results Findings/Data: Laboratory Tests: 10/09 10/09 10/09 10/09 10/09 1948 1520 1009 0647 0446 Chemistry Sodium (134 - 147 mEq/L) 143 [...] Magnesium (1.8 - 2.4 mg/dL) 1.30 L Hematology WBC (4.5 - 11.0 x10 [...] % (Auto) (14.0 - 32.0 %) 20.6 Kershaw % (Auto) (4.8 - 9.0 %) 6.5 Eos % (Auto) (0.3 - 3.7 %) 1.0 Baso % (Auto) (0.0 - 2.0 %) 0.6 Neut # (Auto) (2.0 - 7.6 x10 3/uL) 7.69 H Lymph # (Auto) (1.0 - 3.8 x10 3/uL) 2.24 Kershaw # (Auto) (0.1 - 0.8 x10 3/uL) 0.71 Eos # (Auto) (0.0 - 0.2 x10 3/uL) 0.11 Baso # (Auto) (0.0 - 0.2 x10 3/uL) 0.06 Abs Immat Gran (auto) (0.00 - 0.03 0.07 H x10 3/uL) Add Manual Diff NO Immature Gran % (0.0 - 2.0 %) 0.6 Nucleated RBC % (0 - 0 %) 0.0 Nucleated RBCs # (Man) (0.0 - 0.1 0.00 x10 3/uL) Diagnosis, Assessment Plan Problem List/A P: 1. Acute renal failure 2. Physical deconditioning 3. Hypomagnesemia 4. Lactic acidosis 5. DKA (diabetic ketoacidoses) 6. Metabolic acidosis 7. Gastric distention Free Text A P: 74 years old female with past medical history significant for Alzheimer's dementia, behavioral disturbance, hypertension, type 2 diabetes mellitus, migraine headaches, anxiety disorder, bowel and bladder incontinence, rheumatoid arthritis, frequent UTI. She was admitted secondary to severe lactic acidosis, metabolic acidosis with anion gap secondary to metformin and dehydration. Started on hemodialysis secondary to acute renal failure and lactic acidosis with multiple electrolyte abnormalities including hypokalemia, hypo-[place] anemia, hypocalcemia, hypoalbuminemia. Patient then developed acute pulmonary vascular congestion is being diuresed. Plan: Physical therapy, Occupational Therapy and speech therapy have been consulted. Due to patient being an unreliable historian and moderate dementia she would benefit from returning to [place] [facility] following her acute care stay. I discussed with the patient's [id number] who is on the chart as 1 of the contacts and she states their wish is for her to return to [facility] once medically cleared. 10/01: Encourage particpation with therpay.C. Diff not collected. Pt hgb stable. SNF once ready to be discharged. 10/02: Pt [...] but performing bed exercises. Poor po intake. Plan is for her to return to [facility] Rehab attestation: Face to face exam completed. Treatment plan discussed with patient. at 2249 RPT #:[id number] END OF REPORT [facility] 2019-10-10 08:06:00 [facility] ([facility]) Nephrology Progress Note REPORT#:[id number] REPORT STATUS: Signed DATE:10/10/19 TIME: 08 PATIENT: MAC AGUSTIN UNIT #: [id number] ROOM/BED: [place] [address] : 47 AGE: 74 SEX: F ATTEND: Joel Myers MD ADM AUTHOR: Rabia Aguilar MD * ALL edits or amendments must be made on the electronic/computer document * Subjective Chief Complaint: AMS/Lactic acidosis/NATHEN Patient reports: No: complaints. Comments: Patient seen and evaluated, HPI no change from initial, feels okay Review of Systems Unable to obtain due to: Patient's condition Objective General VS/I O: Vital Signs: Date Time Temp Pulse Resp [...] 92.2 95 Room air 10/08 0840 Nasal [id number] cannula 24 hour I O ending at 0700: 10/09 0700 10/08 1900 Intake Total 120 80 Output Total Balance 120 80 Intake, Oral 120 60 Intake, Oral 20 Supplement Number 1 Bowel Movements Number 2 Incontinent Voids Patient 55.9 kg 75.75 kg Weight Weight Bed scale Measurement Method Medications Active Meds + DC'd Last 24 Hrs Potassium Chloride 20 MEQ Q2H PO Potassium Chloride [...] Heparin Sodium 5,000 UNIT Q12HR SUBQ Physical Exam General appearance: alert, no acute distress Head/eyes: atraumatic, normocephalic ENT: normal nose Neck: supple/no meningismus Cardiovascular: normal heart sounds, no rub Respiratory: aerating well, symmetric expansion Abdomen: soft Genitourinary: no ballard Extremities: no edema Musculoskeletal: normal inspection Neuro/BACK SHOE WORKER: altered mental status Skin: dry Results Findings/Data: Laboratory Tests 10/09 10/08 10/08 10/08 10/08 0446 [...] ng/mL) 182.0 Diagnosis, Assessment Plan Free Text A P: Patient seen and evaluated, discussed with care team, images and laboratories reviewed. History of dementia History of rheumatoid arthritis History of frequent falls History of frequent UTIs History of hypertension: Currently hypotensive Hypokalemia: We will supplement Severe hypomagnesemia we will supplement Hypocalcemia: We will supplement Hypoalbuminemia Severe lactic acidosis: Etiology, could be related to septic shock, however source is unclear, rule out ischemic bowel, Fito, will need to review her medications if patient has been on metformin, lactic acidosis due to metformin in the setting of acute renal failure is a possibility and will do hemodialysis in the setting. Patient has been taking Metformin 1000 BID, kenneth has lactic acidosis that is induced by Metformin, discussed with deysi and ICC/Primary team will proceed with HD 09/27/2019 mental status a lot better, hemodynamically more stable, pressors being weaned off, received 6 hours of hemodialysis yesterday, her last set of blood gas showed a pH of 7.40, PCO2 25, PO2 55, lactic acid 6.2 improving, sodium is 143 potassium 3.6 CO2 20 chloride 101 BUN 13 creatinine 1.1, hemoglobin this morning 9.7, white blood count 19.78 trending down, platelet 156 , her clinical picture is consistent with metformin induced lactic acidosis, will do another session of hemodialysis, 4 hours, potassium 3.5, no ultrafiltration, will give 20 mmol of potassium phosphate and expectation of hypophosphatemia during hemodialysis. katie and evaluated during HD, discussed with RN and HD nurse 09/28/2019 laboratories from this morning showed sodium 144, potassium 3.3 we will give KCl 20 mEq IV x1, chloride 104, bicarbonate 16, creatinine 1.2, lactic acid 1.2, hemoglobin 8.4, white blood count 15.2, blood culture still negative, anion gap today is 24 with a normal lactic acid etiology unclear will repeat BMP , repeat lactic acid and order serum acetone and do urinalysis to check for urine ketones, also will do a blood gas. Ketones came back as large, This is kenneth starvation ketoacidosis that has been exacerbated by gluconeogenesis inhibition by Metformin and has been reported in the literature, will start Glucose and insulin drip 09/29/2019 laboratories from this morning showed sodium 142, [...] afternoon, her creatinine is 2.2, not sure what her baseline creatinine, her creatinine is relatively stable since yesterday, will monitor closely, hemoglobin is 7.8, white blood count 13.57 improving. 09/30/2019 laboratories from this morning showed sodium 138, potassium 3.5, CO2 34, chloride 100, BUN and creatinine 22 and 2.4 up some likely related to diuretics, albumin 1.8, hemoglobin 7.8, platelet 60, white blood count 10.51 continues to trend down, lactic acid 1.2 within normal limit, urine output about 1900 cc with Lasix. Chest x-ray still pending. [...] volume contraction. Will check post void resdiual 10/03/2019 laboratories from this morning showed sodium 137, potassium 3.6, CO2 28, BUN and creatinine 30 and 3.0 continue to rise, blood pressures on the low side will try midodrine 5 mg p.o. 3 times daily, hypomagnesemia 1.7 we will give magnesium sulfate 1 g IV x1, hemoglobin 8.1, white blood count 5.21, will check the results of postvoid residual. BNP 109 will increase IVF to 75 cc per h 10/04/19 Hgb 8.4, WBC 109, Na 136, K 4.1, HCO3 23, BUN 31, Creat 3.0 stable since yesterday, continue IVF 10/05/2019 laboratories from today showed hemoglobin 8, platelet 192, white blood count 7.15, sodium 138, potassium 3.3 we will give KCl 10 mEq IV x3 doses, CO2 28, BUN and creatinine 27 and 2.7 trending down, continue IV fluid. 10/06/2019 laboratories from this morning showed hemoglobin 7.6, white blood count 7.11, platelet 212, sodium 139, potassium 3.6, CO2 23, BUN and creatinine 26 and 2.6 continue to trend down, continue IV fluid. 10/07/2019 laboratories from this morning showed sodium 139, [...] start Epogen 10,000 subcu once a week. 10/10/2019 laboratories from this morning showed sodium 143, potassium 2.8 we will give KCl 10 mEq IV x4 and oral potassium KCl 20 mEq p.o. x2, CO2 30, BUN and creatinine 27 and 2.4 slightly better, hypomagnesemia 1.30 we will give magnesium sulfate 2 g IV x1. at 1135 RPT #:[id number] END OF REPORT [facility] 2019-10-10 07:44:00 [facility] Hospitalist Progress Note REPORT#:[id number] REPORT STATUS: Signed DATE:10/10/19 TIME: 743 PATIENT: MAC AGUSTIN UNIT #: [id number] ROOM/BED: [place] [address] : 47 AGE: 74 SEX: F ATTEND: Joel Myers MD ADM AUTHOR: Joel Myers MD * ALL edits or amendments must be made on the electronic/computer document * Subjective Chief Complaint: follow up for NATHEN/CKD, HTN. states feels ok Review of Systems Additional notes: 12 point ROS negative except for mentioned in HPI. Objective General VS/I O: Vital Signs: Date Time Temp Pulse Resp [...] 92.2 95 Room air 10/08 0840 Nasal 3.359917 cannula 24 hour I O ending at 0700: 10/09 0700 10/08 1900 Intake Total 120 80 Output Total Balance 120 80 Intake, Oral 120 60 Intake, Oral 20 Supplement Number 1 Bowel Movements Number 2 Incontinent Voids Patient 55.9 kg 75.75 kg Weight Weight Bed scale Measurement Method Patient Weight Weight (lb): 123 Weight (oz): 3.81 Weight (kg): 55.900 Medications: Active Meds + DC'd Last 24 Hrs Epoetin Dell-epbx 10,000 UNIT We SUBQ Potassium [...] Heparin Sodium 5,000 UNIT Q12HR SUBQ Physical Exam General appearance: confused, alert, awake Head/Eyes: atraumatic, normocephalic ENT: moist mucosal membranes Neck: non-tender, no JVD, no masses or swelling Cardiovascular: normal heart sounds, regular rate rhythm Respiratory: decreased breath sounds, rales (basal), rhonchi, symmetric expansion, no distress, no rales appreciated on anterior exam Abdomen: soft, no distention, no guarding, no rebound Genitourinary: no bladder distention Extremities: edema (bLE +1), no clubbing, no cyanosis Musculoskeletal: normal inspection Neuro/BACK SHOE WORKER: no motor deficits Skin: no rash Psychiatry: normal affect Results Findings/Data: Laboratory Tests 10/08 10/08 10/08 10/08 1926 1539 1125 1057 Chemistry POC Glucose (70 - 110 MG/DL) 234 H 127 H 144 H Iron (35 - 150 mcg/dL) 56 TIBC (260 - 445 mcg/dL) 163 L % Saturation (14 - 34 %) 34.4 H Unsat Iron Binding (mcg/dL) 107 Ferritin (11.0 - 306.8 ng/mL) 182.0 Diagnosis, Assessment Plan Free Text DxA P Notes Free text DxA P notes: Severe lactic acidosis Severe metabolic acidosis Acute renal failure Hypocalcemia Hypomagnesemia ?Septic shock vs lactic acidosis from metformin Dehydration Hypothermia DM HTN Dementia with behavior disturbance persistent hypoglycemia Plan: Ms. Agustin is a 74 yo female with non-specific symptoms of not feeling well, poor appetite that was found to have abnormal labs at [place], sent to ED for evaluation. In the [...] ischemic bowel. Will continue empiric Zosyn. - Zosyn - blood cultures pending - hold home meds - Accuchecks and SSI - replace electrolytes - heparin for DVT prophylaxsis 09/26 Improved lactic acidosis with dialysis. Given improvement, likely [...] life, not a good candidate for work up/treatment. BS well controlled with current insulin schedule Check labs in am 09/27 Lactate remains normal, continue to hold metformin Pt noted return of anion gap acidosis with ketonuria. Discussed with Dr. Aguilar , nephrology. Pt placed on DKA protocol to close anion gap, on D10 for glucose needs while on insulin drip. BNP elevated with clear lungs, no dependent edema, decreased O2 requirement. Give one dose of Lasix 40 mg IV, check CXR in the am, monitor for volume overload while getting DKA fluids. WBC decreased to 15, continue abx for now, d/c after 5 days Some blood noted in stool, CT with signs of chronic inflammation. Given her dementia, unsure that patient would tolerate bowel prep. GI consulted. Appreciate input on area in stomach with possible neoplasm. Check labs in am 09/28 Anion gap closed, off insulin drip Elevated lactate, monitor CXR shows severe vascular congestion and pleural fluid, likely related to fluids given for lactic acidosis and metabolic acidosis, pt not in respiratory distress - Lasix 60 mg IV q8 iniated by nephrology - D10 at 30 cc/hr to maintain blood sugar WBC decreased to 13, d/c abx after 5 days Colon with chronic inflammation, no work up per GI Will need EGD to evaluate abnormality in gastric wall once improved Check labs in am 09/29 Off insulin drip CXR reviewed Cont lasix WBC count came down to 10.5 On zosyn Transfer to the floor dw RN, [employer] BOND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 Will test for COVID-19 10/07/2019 - Rapid COVID and PCR test negative - transfer out of [facility] - replete K+ and Mg+ - off IV fluids. - renal function improving 10/08/2019 - pt reports feeling ok today, but is refusing all nursing care and refuses lab draw today - blood sugars adequately controlled for now, continue to hold metformin - appetite improved, monitor blood sugars closely, may need to start SSI as patient starts to eat more - nephrology following, continue to monitor renal function, HD per nephrology - d/c planning: reutrn to SNF when medically stable 10/09/2019 - cooperative with care today, feeling OK - blood sugars elevated yesterday PM, continue sliding scale insulin and monitor for now - Cr stable at 2.5 today, continue to monitor renal function, HD per nephrology - encourage oral intake - k 3.3 today, replacement ordered per renal, mag replacement ordered per renal 10/10/2019 - blood sugars fluctuating. will be very careful in giving long acting agents as her dietary intake is erratic which will make her prone to develop hypoglycemia - continue sliding scale - monitor renal function closely. renal service following - replete lytes - back to SNF/NH once renal function stabilizes total time spent with evaluating patient/data as well as providing education/ counselling to patient was more than 35 minutes at 0838 RPT #:[id number] END OF REPORT [facility] 2019-10-09 15:23:00 [facility] ([facility]) Rehab Progress Note REPORT#:[id number] REPORT STATUS: Signed DATE:10/09/19 TIME: 1523 PATIENT: MAC AGUSTIN UNIT #: [id number] ROOM/BED: 5526-1 : 47 AGE: 74 SEX: F ATTEND: Joel Myers MD ADM AUTHOR: Lucy Ayon PA-C * ALL edits or amendments must be made on the electronic/computer document * Subjective Chief complaint: Pt seen in bed. Not much for conversation. + dementia and unreliable. Objective General VS: Vital Signs: Date Time Temp Pulse Resp B/P B/P Pulse O2 O2 Flow FiO2 Mean Ox Delivery Rate 10/08 1058 98.1 62 17 124/76 92.2 95 Room air 10/08 0840 Nasal 3.257596 cannula 10/08 0645 98.1 62 17 110/67 81.4 99 Room air 10/08 0431 98.4 63 16 112/73 85.9 96 Room air 10/08 0036 97.9 70 12 98/56 69.9 96 Room air 10/07 2118 Nasal 3.025824 cannula 10/07 1924 98.6 70 17 102/65 77.4 96 Room air 10/07 1539 97.9 77 18 102/58 72.3 97 Patient Weight Weight (lb): 167 Weight (oz): 15.88 Weight (kg): 75.75 Medications: Active Meds + DC'd Last 24 Hrs Epoetin Dell-epbx 10,000 UNIT We SUBQ Potassium [...] Heparin Sodium 5,000 UNIT Q12HR SUBQ Physical Exam General appearance: alert, no respiratory distress Psych: normal affect HEENT: anicteric, mucosal membranes moist, sclera clear Neck: supple, no JVD Cardiovascular: regular rate rhythm, S1/S2 Respiratory: aerating well, clear bilaterally Abdomen: bowel sounds present, non-distended, soft, soft, non-tender Skin: dry, intact Musculoskeletal - general: Musculoskeletal - general: joints normal, range of motion normal, no swelling Neuro/BACK SHOE WORKER: altered mental status, alert, no motor deficits, no sensory deficits Functional Progress Functional progress: rmance of all activities. Y Precautions: Fall 02 [...] time: 1222 Stop time: 1250 Treatment Time ( minutes): 28 Completed by: Vanna Higgins Conference/Supervising PT: Y Supervising Therapist: Darrion Martinez Pt refused OT today. Results Findings/Data: Laboratory Tests: 10/08 10/08 10/08 10/08 1125 1057 0644 0420 Chemistry Sodium (134 - 147 mEq/L) 141 [...] 107 Ferritin (11.0 - 306.8 ng/mL) 182.0 Hematology WBC (4.5 - 11.0 x10 3/uL) [...] % (Auto) (14.0 - 32.0 %) 21.1 Kershaw % (Auto) (4.8 - 9.0 %) 7.0 Eos % (Auto) (0.3 - 3.7 %) 1.0 Baso % (Auto) (0.0 - 2.0 %) 0.3 Neut # (Auto) (2.0 - 7.6 x10 3/uL) 7.33 Lymph # (Auto) (1.0 - 3.8 x10 3/uL) 2.20 Kershaw # (Auto) (0.1 - 0.8 x10 3/uL) [...] (Man) (0.0 - 0.1 x10 3/uL) 0.02 04/28 04/28 1925 1540 Chemistry POC Glucose (70 - 110 MG/DL) 282 H 279 H Diagnosis, Assessment Plan Problem List/A P: 1. Acute renal failure 2. Physical deconditioning 3. Hypomagnesemia 4. Lactic acidosis 5. DKA (diabetic ketoacidoses) 6. Metabolic acidosis 7. Gastric distention Free Text A P: 74 years old female with past medical history significant for Alzheimer's dementia, behavioral disturbance, hypertension, type 2 diabetes mellitus, migraine headaches, anxiety disorder, bowel and bladder incontinence, rheumatoid arthritis, frequent UTI. She was admitted secondary to [...] dementia she would benefit from returning [facility] following her acute care stay. I discussed with the patient's [id number] who is on the chart as 1 of the contacts and she states their wish is for her to return to [facility] once medically cleared. 10/01: Encourage particpation with therpay.C. Diff not collected. Pt hgb stable. SNF once ready to be discharged. 10/02: Pt [...] Poor PO intake. ? feeding tube. Rehab attestation: . at 1853 RPT #:[id number] END OF REPORT [facility] 2019-10-09 12:54:00 [facility] Hospitalist Progress Note REPORT#:[id number] REPORT STATUS: Signed DATE:10/09/19 TIME: 1254 PATIENT: MAC AGUSTIN UNIT #: [id number] ROOM[address]BED: [address] : [address] AGE: 74 SEX: F ATTEND: Joel Myers MD ADM AUTHOR: Joel Myers MD * ALL edits or amendments must be made on the electronic/computer document * Subjective Chief Complaint: follow up for NATHEN/CKD, HTN. states feels ok Review of Systems Additional notes: 12 point ROS negative except for mentioned in HPI. All systems rev neg: except as marked Unable to obtain due to: patient with severe dementia Objective General VS/I O: Vital Signs: Date Time Temp Pulse Resp B/P B/P Pulse O2 O2 Flow FiO2 Mean Ox Delivery Rate 10/08 1058 98.1 62 17 124/76 92.2 95 Room air 10/08 0840 Nasal 3.704186 cannula 10/08 0645 98.1 62 17 110/67 81.4 99 Room air 10/08 0431 98.4 63 16 112/73 85.9 96 Room air 10/08 0036 97.9 70 12 98/56 69.9 96 Room air 10/07 2118 Nasal 3.380990 cannula 10/07 1924 98.6 70 17 102/65 77.4 96 Room air 10/07 1539 97.9 77 18 102/58 72.3 97 24 hour I O ending at 0700: 10/08 0700 10/07 1900 Intake Total 500 1060 Output Total Balance 500 1060 Intake, Oral 500 720 Intake, Oral 340 Supplement Number 3 2 Bowel Movements Number 3 3 Incontinent Voids Patient Weight Weight (lb): 167 Weight (oz): 15.88 Weight (kg): 75.75 Medications: Active Meds + DC'd Last 24 Hrs Epoetin Dell-epbx 10,000 UNIT We SUBQ Potassium [...] Heparin Sodium 5,000 UNIT Q12HR SUBQ Physical Exam Head/Eyes: atraumatic, normocephalic ENT: moist mucosal membranes Neck: non-tender, no JVD, no masses or swelling Cardiovascular: normal heart sounds, regular rate rhythm Respiratory: decreased breath sounds, rales (basal), rhonchi, symmetric expansion, no distress, no rales appreciated on anterior exam Abdomen: soft, no distention, no guarding, no rebound Genitourinary: no bladder distention Extremities: edema (bLE +1), no clubbing, no cyanosis Musculoskeletal: normal inspection Neuro/BACK SHOE WORKER: no motor deficits Skin: no rash Lymphatics: neck normal Psychiatry: normal affect Results Findings/Data: Laboratory Tests 10/08 10/08 10/08 10/07 10/07 1125 [...] % (Auto) (14.0 - 32.0 %) 21.1 Kershaw % (Auto) (4.8 - 9.0 %) 7.0 Eos % (Auto) (0.3 - 3.7 %) 1.0 Baso % (Auto) (0.0 - 2.0 %) 0.3 Neut # (Auto) (2.0 - 7.6 x10 3/uL) 7.33 Lymph # (Auto) (1.0 - 3.8 x10 3/uL) 2.20 Kershaw # (Auto) (0.1 - 0.8 x10 3/uL) [...] Diagnosis, Assessment Plan Free Text DxA P Notes Free text DxA P notes: Severe lactic acidosis Severe metabolic acidosis Acute renal failure Hypocalcemia Hypomagnesemia ?Septic shock vs lactic acidosis from metformin Dehydration Hypothermia DM HTN Dementia with behavior disturbance persistent hypoglycemia Plan: Ms. Agustin is a 74 yo female with non-specific symptoms of not feeling well, poor appetite that was found to have abnormal labs at [place], sent to ED for evaluation. In the [...] ischemic bowel. Will continue empiric Zosyn. - Zosyn - blood cultures pending - hold home meds - Accuchecks and SSI - replace electrolytes - heparin for DVT prophylaxsis 09/26 Improved lactic acidosis with dialysis. Given improvement, likely [...] life, not a good candidate for work up/treatment. BS well controlled with current insulin schedule Check labs in am 09/27 Lactate remains normal, continue to hold metformin Pt noted return of anion gap acidosis with ketonuria. Discussed with Dr. Aguilar , nephrology. Pt placed on DKA protocol to close anion gap, on D10 for glucose needs while on insulin drip. BNP elevated with clear lungs, no dependent edema, decreased O2 requirement. Give one dose of Lasix 40 mg IV, check CXR in the am, monitor for volume overload while getting DKA fluids. WBC decreased to 15, continue abx for now, d/c after 5 days Some blood noted in stool, CT with signs of chronic inflammation. Given her dementia, unsure that patient would tolerate bowel prep. GI consulted. Appreciate input on area in stomach with possible neoplasm. Check labs in am 09/28 Anion gap closed, off insulin drip Elevated lactate, monitor CXR shows severe vascular congestion and pleural fluid, likely related to fluids given for lactic acidosis and metabolic acidosis, pt not in respiratory distress - Lasix 60 mg IV q8 iniated by nephrology - D10 at 30 cc/hr to maintain blood sugar WBC decreased to 13, d/c abx after 5 days Colon with chronic inflammation, no work up per GI Will need EGD to evaluate abnormality in gastric wall once improved Check labs in am 09/29 Off insulin drip CXR reviewed Cont lasix WBC count came down to 10.5 On zosyn Transfer to the floor dw RN, [employer] BOND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 Will test for COVID-19 10/07/2019 - Rapid COVID and PCR test negative - transfer out of [facility] - replete K+ and Mg+ - off IV fluids. - renal function improving 10/08/2019 - pt reports feeling ok today, but is refusing all nursing care and refuses lab draw today - blood sugars adequately controlled for now, continue to hold metformin - appetite improved, monitor blood sugars closely, may need to start SSI as patient starts to eat more - nephrology following, continue to monitor renal function, HD per nephrology - d/c planning: reutrn to SNF when medically stable 10/09/2019 - cooperative with care today, feeling OK - blood sugars elevated yesterday PM, continue sliding scale insulin and monitor for now - Cr stable at 2.5 today, continue to monitor renal function, HD per nephrology - encourage oral intake - k 3.3 today, replacement ordered per renal, mag replacement ordered per renal total time spent with evaluating patient/data as well as providing education/ counselling to patient was more than 35 minutes at 0738 RPT #:[id number] END OF REPORT [facility] 2019-10-09 06:07:00 [facility] ([facility]) Nephrology Progress Note REPORT#:[id number] REPORT STATUS: Signed DATE:10/09/19 TIME: 06 PATIENT: MAC AGUSTIN UNIT #: [id number] ROOM/BED: [place] [address] : 47 AGE: 74 SEX: F ATTEND: Joel Myers MD ADM AUTHOR: Rabia Aguilar MD * ALL edits or amendments must be made on the electronic/computer document * Subjective Chief Complaint: AMS/Lactic acidosis/NATHEN Unable to obtain: patient condition Comments: Patient seen and evaluated, HPI no change from initial, feels okay Review of Systems Unable to obtain due to: Patient's condition Objective General VS/I O: Vital Signs: Date Time Temp Pulse Resp B/P B/P Pulse O2 O2 Flow FiO2 Mean Ox Delivery Rate 10/08 0431 36.9 63 16 112/73 85.9 96 Room air 10/08 0036 36.6 70 12 98/56 69.9 96 Room air 10/07 2118 Nasal 3.756361 cannula 10/07 1924 37.0 70 17 102/65 77.4 96 Room air 10/07 1539 36.6 77 18 102/58 72.3 97 10/07 1023 37.1 65 18 114/69 83.9 97 10/07 0840 Nasal 3.296728 cannula 10/07 0635 36.8 62 18 118/78 91.3 97 24 hour I O ending at 0700: 10/08 0700 10/07 1900 Intake Total 500 1060 Output Total Balance 500 1060 Intake, Oral 500 720 Intake, Oral 340 Supplement Number 3 2 Bowel Movements Number 3 3 Incontinent Voids Medications Active Meds + DC'd Last 24 Hrs Midodrine 5 MG 0900,1300,1700 PO Pantoprazole 40 MG BID@0600,1800 PO Megestrol Acetate 800 MG DAILY PO Zinc Oxide 1 APPLIC BID TOPICAL Lidocaine 1 EA Q24H TOPICAL Insulin Human Lispro 0 AC HS SUBQ Acetaminophen 650 MG Q4H PRN PRN PO Heparin Sodium 5,000 UNIT Q12HR SUBQ Physical Exam General appearance: alert, no acute distress Head/eyes: atraumatic, normocephalic ENT: normal nose Neck: supple/no meningismus Cardiovascular: normal heart sounds, no rub Respiratory: aerating well, symmetric expansion Abdomen: soft Genitourinary: no ballard Extremities: no edema Musculoskeletal: normal inspection Neuro/BACK SHOE WORKER: altered mental status Skin: dry Results Findings/Data: Laboratory Tests 10/08 10/08 10/07 10/07 10/07 0644 [...] 155 H 130 H 112 H 10/06 1223 Chemistry Sodium (134 - 147 mEq/L) [...] (Auto) (14.0 - 32.0 %) 21.1 25.3 Kershaw % (Auto) (4.8 - 9.0 %) 7.0 14.7 H Eos % (Auto) (0.3 - 3.7 %) 1.0 1.4 Baso % (Auto) (0.0 - 2.0 %) 0.3 0.4 Neut # (Auto) (2.0 - 7.6 x10 3/uL) 7.33 5.41 Lymph # (Auto) (1.0 - 3.8 x10 3/uL) 2.20 2.40 Kershaw # (Auto) (0.1 - 0.8 x10 3/uL) [...] 10/06 10/06 10/06 10/05 10/05 1108 0749 7 2008 1731 Chemistry Sodium (134 - 147 [...] % (Auto) (14.0 - 32.0 %) 25.3 Kershaw % (Auto) (4.8 - 9.0 %) 14.7 H Eos % (Auto) (0.3 - 3.7 %) 1.4 Baso % (Auto) (0.0 - 2.0 %) 0.4 Neut # (Auto) (2.0 - 7.6 x10 3/uL) 5.41 Lymph # (Auto) (1.0 - 3.8 x10 3/uL) 2.40 Kershaw # (Auto) (0.1 - 0.8 x10 3/uL) [...] (Negative) Negative Laboratory Tests 10/07 10/07 10/07 1755 1022 0671 Chemistry POC Glucose (70 - 110 MG/DL) 282 H 115 H 117 H Diagnosis, Assessment Plan Free Text A P: Patient seen and evaluated, discussed with care team, images and laboratories reviewed. History of dementia History of rheumatoid arthritis History of frequent falls History of frequent UTIs History of hypertension: Currently hypotensive Hypokalemia: We will supplement Severe hypomagnesemia we will supplement Hypocalcemia: We will supplement Hypoalbuminemia Severe lactic acidosis: Etiology, could be related to septic shock, however source is unclear, rule out ischemic bowel, Zosyn, will need to review her medications if patient has been on metformin, lactic acidosis due to metformin in the setting of acute renal failure is a possibility and will do hemodialysis in the setting. Patient has been taking Metformin 1000 BID, kenneth has lactic acidosis that is induced by Metformin, discussed with deysi and ICC/Primary team will proceed with HD 09/27/2019 mental status a lot better, hemodynamically more stable, pressors being weaned off, received 6 hours of hemodialysis yesterday, her last set of blood gas showed a pH of 7.40, PCO2 25, PO2 55, lactic acid 6.2 improving, sodium is 143 potassium 3.6 CO2 20 chloride 101 BUN 13 creatinine 1.1, hemoglobin this morning 9.7, white blood count 19.78 trending down, platelet 156 , her clinical picture is consistent with metformin induced lactic acidosis, will do another session of hemodialysis, 4 hours, potassium 3.5, no ultrafiltration, will give 20 mmol of potassium phosphate and expectation of hypophosphatemia during hemodialysis. katie and evaluated during HD, discussed with RN and HD nurse 09/28/2019 laboratories from this morning showed sodium 144, potassium 3.3 we will give KCl 20 mEq IV x1, chloride 104, bicarbonate 16, creatinine 1.2, lactic acid 1.2, hemoglobin 8.4, white blood count 15.2, blood culture still negative, anion gap today is 24 with a normal lactic acid etiology unclear will repeat BMP , repeat lactic acid and order serum acetone and do urinalysis to check for urine ketones, also will do a blood gas. Ketones came back as large, This is kenneth starvation ketoacidosis that has been exacerbated by gluconeogenesis inhibition by Metformin and has been reported in the literature, will start Glucose and insulin drip 09/29/2019 laboratories from this morning showed sodium 142, [...] afternoon, her creatinine is 2.2, not sure what her baseline creatinine, her creatinine is relatively stable since yesterday, will monitor closely, hemoglobin is 7.8, white blood count 13.57 improving. 09/30/2019 laboratories from this morning showed sodium 138, potassium 3.5, CO2 34, chloride 100, BUN and creatinine 22 and 2.4 up some likely related to diuretics, albumin 1.8, hemoglobin 7.8, platelet 60, white blood count 10.51 continues to trend down, lactic acid 1.2 within normal limit, urine output about 1900 cc with Lasix. Chest x-ray still pending. [...] volume contraction. Will check post void resdiual 10/03/2019 laboratories from this morning showed sodium 137, potassium 3.6, CO2 28, BUN and creatinine 30 and 3.0 continue to rise, blood pressures on the low side will try midodrine 5 mg p.o. 3 times daily, hypomagnesemia 1.7 we will give magnesium sulfate 1 g IV x1, hemoglobin 8.1, white blood count 5.21, will check the results of postvoid residual. BNP 109 will increase IVF to 75 cc per h 10/04/19 Hgb 8.4, WBC 109, Na 136, K 4.1, HCO3 23, BUN 31, Creat 3.0 stable since yesterday, continue IVF 10/05/2019 laboratories from today showed hemoglobin 8, platelet 192, white blood count 7.15, sodium 138, potassium 3.3 we will give KCl 10 mEq IV x3 doses, CO2 28, BUN and creatinine 27 and 2.7 trending down, continue IV fluid. 10/06/2019 laboratories from this morning showed hemoglobin 7.6, white blood count 7.11, platelet 212, sodium 139, potassium 3.6, CO2 23, BUN and creatinine 26 and 2.6 continue to trend down, continue IV fluid. 10/07/2019 laboratories from this morning showed sodium 139, [...] subcu once a week. at 0932 RPT #:[id number] END OF REPORT [facility] 2019-10-08 14:34:00 [facility]) Gastroenterology Progress Note REPORT#:[id number] REPORT STATUS: Signed DATE:10/08/19 TIME: 1434 PATIENT: MAC AGUSTIN UNIT #: [id number] ROOM/BED: [place] [address] : 47 AGE: 74 SEX: F ATTEND: Joel Myers MD ADM AUTHOR: Arian Anderson * ALL edits or amendments must be made on the electronic/computer document * Subjective Chief Complaint: weak HPI: No new complaints. Review of Systems Unable to obtain due to: dementia Objective General VS/I O: Last Documented: Result Date Time Pulse Ox 97 10/07 1023 B/P 114/69 10/07 1023 B/P Mean 83.9 10/07 1023 Temp 37.1 10/07 1023 Pulse 65 10/07 1023 Resp 18 10/07 1023 O2 Delivery Nasal cannula 10/07 0840 O2 Flow Rate 3.177290 10/07 0840 24 hour I O ending at 0700: 10/07 0700 10/06 1900 Intake Total 240 Output Total Balance 240 Intake, Oral 240 Number 2 Bowel Movements Number 2 Incontinent Voids Patient Weight Weight (lb): 167 Weight (oz): 15.88 Weight (kg): 75.75 Medications: Active Meds + DC'd Last 24 Hrs Midodrine 5 MG 0900,1300,1700 PO Pantoprazole 40 MG BID@0600,1800 PO Megestrol Acetate 800 MG DAILY PO Zinc Oxide 1 APPLIC BID TOPICAL Lidocaine 1 EA Q24H TOPICAL Insulin Human Lispro 0 AC HS SUBQ Acetaminophen 650 MG Q4H PRN PRN PO Heparin Sodium 5,000 UNIT Q12HR SUBQ Physical Exam General appearance: altered mental status HEENT: moist mucosal membranes Cardiovascular: normal S1/S2 Respiratory: clear to auscultation Abdomen: non-tender, normal bowel sounds, soft, no distention Extremities: edema Musculoskeletal: normal inspection Skin: dry Results Findings/Data: Laboratory Tests 10/07 10/07 10/06 10/06 1022 0636 1905 1619 Chemistry POC Glucose (70 - 110 MG/DL) 115 H 117 H 152 H 155 H Results: labs reviewed, vital signs stable Diagnosis, Assessment Plan Problem List/A P: 1. Antibiotic-associated diarrhea Free Text A P: IMPRESSION: A 74-year-old female with a host of comorbidities, especially advanced dementia, presented with failure to thrive kind of situation, labs were significantly abnormal with electrolyte disbalance, acute renal failure, metabolic acidosis and underlying sepsis from urinary tract infection. UTI is being treated with IV antibiotic. She is responding. The CT finding of colonic wall thickening as well as gastric distention with gastric wall thickening is an incidental finding. PLAN: 1. Colonic wall thickening is not concerning. This diffuse colonic wall edema could be due to underlying sepsis and hypoalbuminemia. This does not warrant any further investigation at this time. It seems to be self-limiting. 2. Gastric distention, gastric wall thickening certainly needs further evaluation with direct visualization. Therefore, upper endoscopy should be considered when the patient is medically stable and has recovered well from her current acute illness. 10/08/19 - PPI PO - Continue Megace - Supportive care - Outpatient EGD and colonoscopy given current COVID restrictions and no evidence of active bleeding - Discharge per primary at 1435 RPT #:[id number] END OF REPORT [facility] 2019-10-08 14:34:00 [facility]) Gastroenterology Progress Note REPORT#:[id number] REPORT STATUS: Signed DATE:10/08/19 TIME: 1434 PATIENT: MAC AGUSTIN UNIT #: [id number] ROOM/BED: [place] [address] : 47 AGE: 74 SEX: F ATTEND: Joel Myers MD ADM AUTHOR: Arian Anderson * ALL edits or amendments must be made on the electronic/computer document * Arian Anderson 10/08/19 1434: Subjective Chief Complaint: weak HPI: No new complaints. Review of Systems Unable to obtain due to: dementia Objective General VS/I O: Last Documented: Result Date Time Pulse Ox 97 10/07 1023 B/P 114/69 10/07 1023 B/P Mean 83.9 10/07 1023 Temp 37.1 10/07 1023 Pulse 65 10/07 1023 Resp 18 10/07 1023 O2 Delivery Nasal cannula 10/07 0840 O2 Flow Rate 3.864847 10/07 0840 24 hour I O ending at 0700: 10/07 0700 10/06 1900 Intake Total 240 Output Total Balance 240 Intake, Oral 240 Number 2 Bowel Movements Number 2 Incontinent Voids Patient Weight Weight (lb): 167 Weight (oz): 15.88 Weight (kg): 75.75 Medications: Active Meds + DC'd Last 24 Hrs Midodrine 5 MG 0900,1300,1700 PO Pantoprazole 40 MG BID@0600,1800 PO Megestrol Acetate 800 MG DAILY PO Zinc Oxide 1 APPLIC BID TOPICAL Lidocaine 1 EA Q24H TOPICAL Insulin Human Lispro 0 AC HS SUBQ Acetaminophen 650 MG Q4H PRN PRN PO Heparin Sodium 5,000 UNIT Q12HR SUBQ Physical Exam General appearance: altered mental status HEENT: moist mucosal membranes Cardiovascular: normal S1/S2 Respiratory: clear to auscultation Abdomen: non-tender, normal bowel sounds, soft, no distention Extremities: edema Musculoskeletal: normal inspection Skin: dry Results Findings/Data: Laboratory Tests 10/07 10/07 10/06 10/06 1022 0636 1905 1619 Chemistry POC Glucose (70 - 110 MG/DL) 115 H 117 H 152 H 155 H Results: labs reviewed, vital signs stable Diagnosis, Assessment Plan Problem List/A P: 1. Antibiotic-associated diarrhea Free Text A P: IMPRESSION: A 74-year-old female with a host of comorbidities, especially advanced dementia, presented with failure to thrive kind of situation, labs were significantly abnormal with electrolyte disbalance, acute renal failure, metabolic acidosis and underlying sepsis from urinary tract infection. UTI is being treated with IV antibiotic. She is responding. The CT finding of colonic wall thickening as well as gastric distention with gastric wall thickening is an incidental finding. PLAN: 1. Colonic wall thickening is not concerning. This diffuse colonic wall edema could be due to underlying sepsis and hypoalbuminemia. This does not warrant any further investigation at this time. It seems to be self-limiting. 2. Gastric distention, gastric wall thickening certainly needs further evaluation with direct visualization. Therefore, upper endoscopy should be considered when the patient is medically stable and has recovered well from her current acute illness. 10/08/19 - PPI PO - Continue Megace - Supportive care - Outpatient EGD and colonoscopy given current COVID restrictions and no evidence of active bleeding - Discharge per primary Coleman Sr V. 11/07/19 0901: Attestations Physician Attestation Agree w/findings plan: Patient seen and examined. Agree with the findings and plan as documented by SHELL MOLD BONDING MACHINE OPERATOR. at 1435 RPT #:[id number] END OF REPORT [facility] 2019-10-08 14:34:00 [facility] ([facility] Gastroenterology Progress Note REPORT#:[id number] REPORT STATUS: Signed DATE:10/08/19 TIME: 1434 PATIENT: MAC AGUSTIN UNIT #: [id number] ROOM/BED: [place] [address] : 47 AGE: 74 SEX: F ATTEND: Joel Myers MD ADM AUTHOR: Arian Anderson * ALL edits or amendments must be made on the electronic/computer document * Arian Anderson 10/08/19 1434: Subjective Chief Complaint: weak HPI: No new complaints. Review of Systems Unable to obtain due to: dementia Objective General VS/I O: Last Documented: Result Date Time Pulse Ox 97 10/07 1023 B/P 114/69 10/07 1023 B/P Mean 83.9 10/07 1023 Temp 37.1 10/07 1023 Pulse 65 10/07 1023 Resp 18 10/07 1023 O2 Delivery Nasal cannula 10/07 0840 O2 Flow Rate 3.297676 10/07 0840 24 hour I O ending at 0700: 10/07 0700 10/06 1900 Intake Total 240 Output Total Balance 240 Intake, Oral 240 Number 2 Bowel Movements Number 2 Incontinent Voids Patient Weight Weight (lb): 167 Weight (oz): 15.88 Weight (kg): 75.75 Medications: Active Meds + DC'd Last 24 Hrs Midodrine 5 MG 0900,1300,1700 PO Pantoprazole 40 MG BID@0600,1800 PO Megestrol Acetate 800 MG DAILY PO Zinc Oxide 1 APPLIC BID TOPICAL Lidocaine 1 EA Q24H TOPICAL Insulin Human Lispro 0 AC HS SUBQ Acetaminophen 650 MG Q4H PRN PRN PO Heparin Sodium 5,000 UNIT Q12HR SUBQ Physical Exam General appearance: altered mental status HEENT: moist mucosal membranes Cardiovascular: normal S1/S2 Respiratory: clear to auscultation Abdomen: non-tender, normal bowel sounds, soft, no distention Extremities: edema Musculoskeletal: normal inspection Skin: dry Results Findings/Data: Laboratory Tests 10/07 10/07 10/06 10/06 1022 0636 1905 1619 Chemistry POC Glucose (70 - 110 MG/DL) 115 H 117 H 152 H 155 H Results: labs reviewed, vital signs stable Diagnosis, Assessment Plan Problem List/A P: 1. Antibiotic-associated diarrhea Free Text A P: IMPRESSION: A 74-year-old female with a host of comorbidities, especially advanced dementia, presented with failure to thrive kind of situation, labs were significantly abnormal with electrolyte disbalance, acute renal failure, metabolic acidosis and underlying sepsis from urinary tract infection. UTI is being treated with IV antibiotic. She is responding. The CT finding of colonic wall thickening as well as gastric distention with gastric wall thickening is an incidental finding. PLAN: 1. Colonic wall thickening is not concerning. This diffuse colonic wall edema could be due to underlying sepsis and hypoalbuminemia. This does not warrant any further investigation at this time. It seems to be self-limiting. 2. Gastric distention, gastric wall thickening certainly needs further evaluation with direct visualization. Therefore, upper endoscopy should be considered when the patient is medically stable and has recovered well from her current acute illness. 10/08/19 - PPI PO - Continue Megace - Supportive care - Outpatient EGD and colonoscopy given current COVID restrictions and no evidence of active bleeding - Discharge per primary Coleman Sr V. 11/07/19 0901: Attestations Physician Attestation Agree w/findings plan: Patient seen and examined. Agree with the findings and plan as documented by SHELL MOLD BONDING MACHINE OPERATOR. at 1435 at 0914 RPT #:[id number] END OF REPORT [facility] 2019-10-08 14:05:00 [facility] Progress Note REPORT#:[id number] REPORT STATUS: Signed DATE:10/08/19 TIME: 1405 PATIENT: MAC AGUSTIN UNIT #: [id number] ROOM/BED: [address] : 47 AGE: 74 SEX: F ATTEND: Joel Myers MD ADM AUTHOR: Lucy Ayon PA-C * ALL edits or amendments must be made on the electronic/computer document * Subjective Chief complaint: Pt seen in bed. No complaints. States cold. + Dementia. Objective General VS: Vital Signs: Date Time Temp Pulse Resp B/P B/P Pulse O2 O2 Flow FiO2 Mean Ox Delivery Rate 10/07 1023 98.8 65 18 114/69 83.9 97 10/07 0840 Nasal 3.295898 cannula 10/07 0635 98.2 62 18 118/78 91.3 97 10/06 2356 97.2 76 17 137/67 0.0 96 Room air 10/06 2120 Nasal 3.283493 cannula 10/06 1943 98.4 54 97 10/06 1906 98.2 42 17 127/63 84.0 98 Room air 10/06 1620 98.2 60 18 121/68 86.1 97 Patient Weight Weight (lb): 167 Weight (oz): 15.88 Weight (kg): 75.75 Medications: Active Meds + DC'd Last 24 Hrs Midodrine 5 MG 0900,1300,1700 PO Pantoprazole 40 MG BID@0600,1800 PO Megestrol Acetate 800 MG DAILY PO Zinc Oxide 1 APPLIC BID TOPICAL Lidocaine 1 EA Q24H TOPICAL Insulin Human Lispro 0 AC HS SUBQ Acetaminophen 650 MG Q4H PRN PRN PO Heparin Sodium 5,000 UNIT Q12HR SUBQ Physical Exam General appearance: altered mental status, alert, awake Psych: normal affect HEENT: anicteric, mucosal membranes moist, sclera clear Neck: supple, no JVD Cardiovascular: regular rate rhythm, S1/S2 Respiratory: aerating well, clear bilaterally Abdomen: bowel sounds present, non-distended, soft, soft, non-tender Skin: dry, intact Musculoskeletal - general: Musculoskeletal - general: joints normal, range of motion normal, no swelling Neuro/BACK SHOE WORKER: altered mental status, alert, no motor deficits, no sensory deficits Functional Progress Functional progress: rmance of all activities: Y ACTIVITIES PERFORMED: Bathing [...] Time: 1300 Stop Time: 1330 Treatment time ( minutes): 15 Completed by: Nico Joy Supervising Therapist: Nubia Melgoza - GROOMING/HYGIENE: Washing hands/face: Supervision or Set-up Oral Hygiene: Not Tested Combing/brushing hair: Not Tested Applying/removing make-up: Not Tested Shaving face: Not Tested Comments: Pt executed ADLs static/dynamic sitting in supported chair. Results Findings/Data: Laboratory Tests: 10/07 10/07 10/06 10/06 1022 0636 1902 1610 Chemistry POC Glucose (70 - 110 MG/DL) 115 H 117 H 152 H 155 H Diagnosis, Assessment Plan Problem List/A P: 1. Acute renal failure 2. Physical deconditioning 3. Hypomagnesemia 4. Lactic acidosis 5. DKA (diabetic ketoacidoses) 6. Metabolic acidosis 7. Gastric distention Free Text A P: 74 years old female with past medical history significant for Alzheimer's dementia, behavioral disturbance, hypertension, type 2 diabetes mellitus, migraine headaches, anxiety disorder, bowel and bladder incontinence, rheumatoid arthritis, frequent UTI. She was admitted secondary to [...] dementia she would benefit from [facility] her acute care stay. I discussed with the patient's [id number] who is on the chart as 1 of the contacts and she states their wish is for her to return to [facility] once medically cleared. 10/01: Encourage particpation with [employer]. Diff not collected. Pt hgb stable. SNF once ready to be discharged. 10/02: Pt [...] stable. Pt refusing nursing care today. Rehab attestation: Face to face exam completed. at 1409 RPT #:[id number] END OF REPORT [facility] 2019-10-08 12:04:00 [facility] ([facility] Hospitalist Progress Note REPORT#:[id number] REPORT STATUS: Signed DATE:10/08/19 TIME: 1204 PATIENT: MAC AGUSTIN UNIT #: [id number] RO[address]BED: [address] : 47 AGE: 74 SEX: F ATTEND: Joel Myers MD ADM AUTHOR: Joel Myers MD * ALL edits or amendments must be made on the electronic/computer document * Subjective Chief Complaint: follow up for NATHEN/CKD, HTN. states feels ok, but refusing all nursing care today Review of Systems Additional notes: 12 point ROS negative except for mentioned in HPI. All systems rev neg: except as marked Unable to obtain due to: patient with severe dementia Objective General VS/I O: Vital Signs: Date Time Temp Pulse Resp B/P B/P Pulse O2 O2 Flow FiO2 Mean Ox Delivery Rate 10/07 1023 98.8 65 18 114/69 83.9 97 10/07 0840 Nasal 3.514258 cannula 10/07 0635 98.2 62 18 118/78 91.3 97 10/06 2356 97.2 76 17 137/67 0.0 96 Room air 10/06 2120 Nasal 3.806463 cannula 10/06 1943 98.4 54 97 10/06 1906 98.2 42 17 127/63 84.0 98 Room air 10/06 1620 98.2 60 18 121/68 86.1 97 24 hour I O ending at 0700: 10/07 0700 10/06 1900 Intake Total 240 Output Total Balance 240 Intake, Oral 240 Number 2 Bowel Movements Number 2 Incontinent Voids Patient Weight Weight (lb): 167 Weight (oz): 15.88 Weight (kg): 75.75 Medications: Active Meds + DC'd Last 24 Hrs Midodrine 5 MG 0900,1300,1700 PO Pantoprazole 40 MG BID@0600,1800 PO Megestrol Acetate 800 MG DAILY PO Zinc Oxide 1 APPLIC BID TOPICAL Lidocaine 1 EA Q24H TOPICAL Insulin Human Lispro 0 AC HS SUBQ Acetaminophen 650 MG Q4H PRN PRN PO Heparin Sodium 5,000 UNIT Q12HR SUBQ Physical Exam General appearance: confused, sleeping comfortably Head/Eyes: atraumatic, normocephalic ENT: moist mucosal membranes Neck: non-tender, no JVD, no masses or swelling Cardiovascular: normal heart sounds, regular rate rhythm Respiratory: decreased breath sounds, rales (basal), rhonchi, symmetric expansion, no distress, no rales appreciated on anterior exam Abdomen: soft, no distention, no guarding, no rebound Genitourinary: no bladder distention Extremities: edema (bLE +1), no clubbing, no cyanosis Musculoskeletal: normal inspection Neuro/BACK SHOE WORKER: no motor deficits Skin: no rash Lymphatics: neck normal Psychiatry: normal affect Results Findings/Data: Laboratory Tests 10/07 10/07 10/06 10/06 1022 0636 1905 1619 Chemistry POC Glucose (70 - 110 MG/DL) 115 H 117 H 152 H 155 H Results: no new labs, vital signs stable, current med profile rev'd Diagnosis, Assessment Plan Free Text DxA P Notes Free text DxA P notes: Severe lactic acidosis Severe metabolic acidosis Acute renal failure Hypocalcemia Hypomagnesemia ?Septic shock vs lactic acidosis from metformin Dehydration Hypothermia DM HTN Dementia with behavior disturbance persistent hypoglycemia Plan: Ms. Agustin is a 74 yo female with non-specific symptoms of not feeling well, poor appetite that was found to have abnormal labs at [place], sent to ED for evaluation. In the [...] ischemic bowel. Will continue empiric Zosyn. - Zosyn - blood cultures pending - hold home meds - Accuchecks and SSI - replace electrolytes - heparin for DVT prophylaxsis 09/26 Improved lactic acidosis with dialysis. Given improvement, likely [...] life, not a good candidate for work up/treatment. BS well controlled with current insulin schedule Check labs in am 09/27 Lactate remains normal, continue to hold metformin Pt noted return of anion gap acidosis with ketonuria. Discussed with Dr. Aguilar , nephrology. Pt placed on DKA protocol to close anion gap, on D10 for glucose needs while on insulin drip. BNP elevated with clear lungs, no dependent edema, decreased O2 requirement. Give one dose of Lasix 40 mg IV, check CXR in the am, monitor for volume overload while getting DKA fluids. WBC decreased to 15, continue abx for now, d/c after 5 days Some blood noted in stool, CT with signs of chronic inflammation. Given her dementia, unsure that patient would tolerate bowel prep. GI consulted. Appreciate input on area in stomach with possible neoplasm. Check labs in am 09/28 Anion gap closed, off insulin drip Elevated lactate, monitor CXR shows severe vascular congestion and pleural fluid, likely related to fluids given for lactic acidosis and metabolic acidosis, pt not in respiratory distress - Lasix 60 mg IV q8 iniated by nephrology - D10 at 30 cc/hr to maintain blood sugar WBC decreased to 13, d/c abx after 5 days Colon with chronic inflammation, no work up per GI Will need EGD to evaluate abnormality in gastric wall once improved Check labs in am 09/29 Off insulin drip CXR reviewed Cont lasix WBC count came down to 10.5 On zosyn Transfer to the floor dw RN, SHELL MOLD BOND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 Will test for COVID-19 10/07/2019 - Rapid COVID and PCR test negative - transfer out [address] - replete K+ and Mg+ - off IV fluids. - renal function improving 10/08/2019 - pt reports feeling ok today, but is refusing all nursing care and refuses lab draw today - blood sugars adequately controlled for now, continue to hold metformin - appetite improved, monitor blood sugars closely, may need to start SSI as patient starts to eat more - nephrology following, continue to monitor renal function, HD per nephrology - d/c planning: reutrn to SNF when medically stable total time spent with evaluating patient/data as well as providing education/ counselling to patient was more than 35 minutes at 0733 RPT #:[id number] END OF REPORT [facility] 2019-10-08 07:45:00 [facility] ([facility]) Nephrology Progress Note REPORT#:[id number] REPORT STATUS: Signed DATE:10/08/19 TIME: 0745 PATIENT: MAC AGUSTIN UNIT #: [id number] ROOM/BED: [place] [address] : 47 AGE: 74 SEX: F ATTEND: Joel Myers MD ADM AUTHOR: Rabia Aguilar MD * ALL edits or amendments must be made on the electronic/computer document * Subjective Chief Complaint: AMS/Lactic acidosis/NATHEN Unable to obtain: patient condition Comments: Patient seen and evaluated, HPI no change from initial, feels okay Review of Systems Unable to obtain due to: Dementia Objective General VS/I O: Vital Signs: Date Time Temp Pulse Resp B/P B/P Pulse O2 O2 Flow FiO2 Mean Ox Delivery Rate 10/07 0635 36.8 62 18 118/78 91.3 97 10/06 2356 36.2 76 17 137/67 0.0 96 Room air 10/06 2120 Nasal 3.588357 cannula 10/06 1943 36.9 54 97 10/06 1906 36.8 42 17 127/63 84.0 98 Room air 10/06 1620 36.8 60 18 121/68 86.1 97 10/06 0900 Nasal 3.234798 cannula 10/06 0800 36.6 64 33 125/58 84 94 24 hour I O ending at 0700: 10/07 0700 10/06 1900 Intake Total 240 Output Total Balance 240 Intake, Oral 240 Number 2 Bowel Movements Number 2 Incontinent Voids Medications Active Meds + DC'd Last 24 Hrs Potassium Chloride 50 ML Q1HR IV (DC) Magnesium Sulfate 50 ML ONCE ONE IV (DC) Midodrine 5 MG 0900,1300,1700 PO Pantoprazole 40 MG BID@0600,1800 PO Megestrol Acetate 800 MG DAILY PO Zinc Oxide 1 APPLIC BID TOPICAL Lidocaine 1 EA Q24H TOPICAL Insulin Human Lispro 0 AC HS SUBQ Acetaminophen 650 MG Q4H PRN PRN PO Heparin Sodium 5,000 UNIT Q12HR SUBQ Physical Exam General appearance: alert, no acute distress Head/eyes: atraumatic, normocephalic ENT: normal nose Neck: supple/no meningismus Cardiovascular: normal heart sounds, no rub Respiratory: aerating well, symmetric expansion Abdomen: soft Genitourinary: no ballard Extremities: no edema Musculoskeletal: normal inspection Neuro/BACK SHOE WORKER: altered mental status Skin: dry Results Findings/Data: Laboratory Tests 10/06 10/06 10/06 10/06 10/06 1905 [...] mg/dL) 1.50 L 10/05 1732 1223 0734 0405 Chemistry POC Glucose (70 - 110 MG/DL) 139 H 174 H 204 H 108 B-Natriuretic Peptide (0 - 100 PG/ML) 301.5 H 10/05 10/04 10/04 10/04 10/04 0405 2022 1710 1128 0820 Chemistry Sodium (134 - [...] % (Auto) (14.0 - 32.0 %) 25.3 [place] % (Auto) (4.8 - 9.0 %) 14.7 H Eos % (Auto) (0.3 - 3.7 %) 1.4 Baso % (Auto) (0.0 - 2.0 %) 0.4 Neut # (Auto) (2.0 - 7.6 x10 3/uL) 5.41 Lymph # (Auto) (1.0 - 3.8 x10 3/uL) 2.40 [place]haw # (Auto) (0.1 - 0.8 x10 3/uL) [...] Negative Nasal/Oral COVID-19 PCR (Negative) Negative Recent Impressions: RADIOLOGY - XR CHEST 1 V 10/05 0930 Report Impression - Status: SIGNED Entered: 10/06/2019 0943 IMPRESSION: 1. Decreasing bilateral pleural effusions and bibasilar atelectasis. 2. Stable pulmonary vascular congestion Impression By: Delvis Johnson M.D. Laboratory Tests 10/06 10/06 10/06 10/06 1905 1619 1108 0749 Chemistry POC Glucose (70 - 110 MG/DL) 152 H 155 H 130 H 112 H Diagnosis, Assessment Plan Free Text A P: Patient seen and evaluated, discussed with care team, images and laboratories reviewed. History of dementia History of rheumatoid arthritis History of frequent falls History of frequent UTIs History of hypertension: Currently hypotensive Hypokalemia: We will supplement Severe hypomagnesemia we will supplement Hypocalcemia: We will supplement Hypoalbuminemia Severe lactic acidosis: Etiology, could be related to septic shock, however source is unclear, rule out ischemic bowel, Zosyn, will need to review her medications if patient has been on metformin, lactic acidosis due to metformin in the setting of acute renal failure is a possibility and will do hemodialysis in the setting. Patient has been taking Metformin 1000 BID, kenneth has lactic acidosis that is induced by Metformin, discussed with deysi and ICC/Primary team will proceed with HD 09/27/2019 mental status a lot better, hemodynamically more stable, pressors being weaned off, received 6 hours of hemodialysis yesterday, her last set of blood gas showed a pH of 7.40, PCO2 25, PO2 55, lactic acid 6.2 improving, sodium is 143 potassium 3.6 CO2 20 chloride 101 BUN 13 creatinine 1.1, hemoglobin this morning 9.7, white blood count 19.78 trending down, platelet 156 , her clinical picture is consistent with metformin induced lactic acidosis, will do another session of hemodialysis, 4 hours, potassium 3.5, no ultrafiltration, will give 20 mmol of potassium phosphate and expectation of hypophosphatemia during hemodialysis. katie and evaluated during HD, discussed with RN and HD nurse 09/28/2019 laboratories from this morning showed sodium 144, potassium 3.3 we will give KCl 20 mEq IV x1, chloride 104, bicarbonate 16, creatinine 1.2, lactic acid 1.2, hemoglobin 8.4, white blood count 15.2, blood culture still negative, anion gap today is 24 with a normal lactic acid etiology unclear will repeat BMP , repeat lactic acid and order serum acetone and do urinalysis to check for urine ketones, also will do a blood gas. Ketones came back as large, This is likley starvation ketoacidosis that has been exacerbated by gluconeogenesis inhibition by Metformin and has been reported in the literature, will start Glucose and insulin drip 09/29/2019 laboratories from this morning showed sodium 142, [...] afternoon, her creatinine is 2.2, not sure what her baseline creatinine, her creatinine is relatively stable since yesterday, will monitor closely, hemoglobin is 7.8, white blood count 13.57 improving. 09/30/2019 laboratories from this morning showed sodium 138, potassium 3.5, CO2 34, chloride 100, BUN and creatinine 22 and 2.4 up some likely related to diuretics, albumin 1.8, hemoglobin 7.8, platelet 60, white blood count 10.51 continues to trend down, lactic acid 1.2 within normal limit, urine output about 1900 cc with Lasix. Chest x-ray still pending. [...] volume contraction. Will check post void resdiual 10/03/2019 laboratories from this morning showed sodium 137, potassium 3.6, CO2 28, BUN and creatinine 30 and 3.0 continue to rise, blood pressures on the low side will try midodrine 5 mg p.o. 3 times daily, hypomagnesemia 1.7 we will give magnesium sulfate 1 g IV x1, hemoglobin 8.1, white blood count 5.21, will check the results of postvoid residual. BNP 109 will increase IVF to 75 cc per h 10/04/19 Hgb 8.4, WBC 109, Na 136, K 4.1, HCO3 23, BUN 31, Creat 3.0 stable since yesterday, continue IVF 10/05/2019 laboratories from today showed hemoglobin 8, platelet 192, white blood count 7.15, sodium 138, potassium 3.3 we will give KCl 10 mEq IV x3 doses, CO2 28, BUN and creatinine 27 and 2.7 trending down, continue IV fluid. 10/06/2019 laboratories from this morning showed hemoglobin 7.6, white blood count 7.11, platelet 212, sodium 139, potassium 3.6, CO2 23, BUN and creatinine 26 and 2.6 continue to trend down, continue IV fluid. 10/07/2019 laboratories from this morning showed sodium 139, potassium 3.1 we will give KCl 10 mEq IV times 4 doses, CO2 24, BUN and creatinine 27 and 22.4 improving, hypomagnesemia 1.5 we will give magnesium sulfate 2 g IV x1, hemoglobin 8, platelet 216.Chest x-ray from yesterday showed mild congestion, her BNP was 300, IV fluid was DC'd. at 1100 RPT #:[id number] END OF REPORT [facility] 2019-10-08 07:45:00 [facility] Nephrology Progress Note REPORT#:[id number] REPORT STATUS: Signed DATE:10/08/19 TIME: 0745 PATIENT: MAC AGUSTIN UNIT #: [id number] ROOM/BED: 5526-1 : 47 AGE: 74 SEX: F ATTEND: Joel Myers MD ADM AUTHOR: Rabia Aguilar MD * ALL edits or amendments must be made on the electronic/computer document * See Addendum Subjective Chief Complaint: AMS/Lactic acidosis/NATHEN Unable to obtain: patient condition Comments: Patient seen and evaluated, HPI no change from initial, feels okay Review of Systems Unable to obtain due to: Dementia Objective General VS/I O: Vital Signs: Date Time Temp Pulse Resp B/P B/P Pulse O2 O2 Flow FiO2 Mean Ox Delivery Rate 10/07 0635 36.8 62 18 118/78 91.3 97 10/06 2356 36.2 76 17 137/67 0.0 96 Room air 10/06 2120 Nasal 3.493015 cannula 10/06 1943 36.9 54 97 10/06 1906 36.8 42 17 127/63 84.0 98 Room air 10/06 1620 36.8 60 18 121/68 86.1 97 10/06 0900 Nasal 3.217467 cannula 10/06 0800 36.6 64 33 125/58 84 94 24 hour I O ending at 0700: 10/07 0700 10/06 1900 Intake Total 240 Output Total Balance 240 Intake, Oral 240 Number 2 Bowel Movements Number 2 Incontinent Voids Medications Active Meds + DC'd Last 24 Hrs Potassium Chloride 50 ML Q1HR IV (DC) Magnesium Sulfate 50 ML ONCE ONE IV (DC) Midodrine 5 MG 0900,1300,1700 PO Pantoprazole 40 MG BID@0600,1800 PO Megestrol Acetate 800 MG DAILY PO Zinc Oxide 1 APPLIC BID TOPICAL Lidocaine 1 EA Q24H TOPICAL Insulin Human Lispro 0 AC HS SUBQ Acetaminophen 650 MG Q4H PRN PRN PO Heparin Sodium 5,000 UNIT Q12HR SUBQ Physical Exam General appearance: alert, no acute distress Head/eyes: atraumatic, normocephalic ENT: normal nose Neck: supple/no meningismus Cardiovascular: normal heart sounds, no rub Respiratory: aerating well, symmetric expansion Abdomen: soft Genitourinary: no ballard Extremities: no edema Musculoskeletal: normal inspection Neuro/BACK SHOE WORKER: altered mental status Skin: dry Results Findings/Data: Laboratory Tests 10/06 10/06 10/06 10/06 10/06 1905 [...] mg/dL) 1.50 L 10/05 1732 1223 0734 0405 Chemistry POC Glucose (70 - 110 MG/DL) 139 [...] % (Auto) (14.0 - 32.0 %) 25.3 Kershaw % (Auto) (4.8 - 9.0 %) 14.7 H Eos % (Auto) (0.3 - 3.7 %) 1.4 Baso % (Auto) (0.0 - 2.0 %) 0.4 Neut # (Auto) (2.0 - 7.6 x10 3/uL) 5.41 Lymph # (Auto) (1.0 - 3.8 x10 3/uL) 2.40 Kershaw # (Auto) (0.1 - 0.8 x10 3/uL) [...] Negative Nasal/Oral COVID-19 PCR (Negative) Negative Recent Impressions: RADIOLOGY - XR CHEST 1 V 10/05 0930 Report Impression - Status: SIGNED Entered: 10/06/2019 0943 IMPRESSION: 1. Decreasing bilateral pleural effusions and bibasilar atelectasis. 2. Stable pulmonary vascular congestion Impression By: Delvis Johnson M.D. Laboratory Tests 10/06 10/06 10/06 10/06 1905 1619 1108 0749 Chemistry POC Glucose (70 - 110 MG/DL) 152 H 155 H 130 H 112 H Diagnosis, Assessment Plan Free Text A P: Patient seen and evaluated, discussed with care team, images and laboratories reviewed. History of dementia History of rheumatoid arthritis History of frequent falls History of frequent UTIs History of hypertension: Currently hypotensive Hypokalemia: We will supplement Severe hypomagnesemia we will supplement Hypocalcemia: We will supplement Hypoalbuminemia Severe lactic acidosis: Etiology, could be related to septic shock, however source is unclear, rule out ischemic bowel, Zosyn, will need to review her medications if patient has been on metformin, lactic acidosis due to metformin in the setting of acute renal failure is a possibility and will do hemodialysis in the setting. Patient has been taking Metformin 1000 BID, kenneth has lactic acidosis that is induced by Metformin, discussed with deysi and ICC/Primary team will proceed with HD 09/27/2019 mental status a lot better, hemodynamically more stable, pressors being weaned off, received 6 hours of hemodialysis yesterday, her last set of blood gas showed a pH of 7.40, PCO2 25, PO2 55, lactic acid 6.2 improving, sodium is 143 potassium 3.6 CO2 20 chloride 101 BUN 13 creatinine 1.1, hemoglobin this morning 9.7, white blood count 19.78 trending down, platelet 156 , her clinical picture is consistent with metformin induced lactic acidosis, will do another session of hemodialysis, 4 hours, potassium 3.5, no ultrafiltration, will give 20 mmol of potassium phosphate and expectation of hypophosphatemia during hemodialysis. katie and evaluated during HD, discussed with RN and HD nurse 09/28/2019 laboratories from this morning showed sodium 144, potassium 3.3 we will give KCl 20 mEq IV x1, chloride 104, bicarbonate 16, creatinine 1.2, lactic acid 1.2, hemoglobin 8.4, white blood count 15.2, blood culture still negative, anion gap today is 24 with a normal lactic acid etiology unclear will repeat BMP , repeat lactic acid and order serum acetone and do urinalysis to check for urine ketones, also will do a blood gas. Ketones came back as large, This is likley starvation ketoacidosis that has been exacerbated by gluconeogenesis inhibition by Metformin and has been reported in the literature, will start Glucose and insulin drip 09/29/2019 laboratories from this morning showed sodium 142, [...] afternoon, her creatinine is 2.2, not sure what her baseline creatinine, her creatinine is relatively stable since yesterday, will monitor closely, hemoglobin is 7.8, white blood count 13.57 improving. 09/30/2019 laboratories from this morning showed sodium 138, potassium 3.5, CO2 34, chloride 100, BUN and creatinine 22 and 2.4 up some likely related to diuretics, albumin 1.8, hemoglobin 7.8, platelet 60, white blood count 10.51 continues to trend down, lactic acid 1.2 within normal limit, urine output about 1900 cc with Lasix. Chest x-ray still pending. [...] volume contraction. Will check post void resdiual 10/03/2019 laboratories from this morning showed sodium 137, potassium 3.6, CO2 28, BUN and creatinine 30 and 3.0 continue to rise, blood pressures on the low side will try midodrine 5 mg p.o. 3 times daily, hypomagnesemia 1.7 we will give magnesium sulfate 1 g IV x1, hemoglobin 8.1, white blood count 5.21, will check the results of postvoid residual. BNP 109 will increase IVF to 75 cc per h 10/04/19 Hgb 8.4, WBC 109, Na 136, K 4.1, HCO3 23, BUN 31, Creat 3.0 stable since yesterday, continue IVF 10/05/2019 laboratories from today showed hemoglobin 8, platelet 192, white blood count 7.15, sodium 138, potassium 3.3 we will give KCl 10 mEq IV x3 doses, CO2 28, BUN and creatinine 27 and 2.7 trending down, continue IV fluid. 10/06/2019 laboratories from this morning showed hemoglobin 7.6, white blood count 7.11, platelet 212, sodium 139, potassium 3.6, CO2 23, BUN and creatinine 26 and 2.6 continue to trend down, continue IV fluid. 10/07/2019 laboratories from this morning showed sodium 139, [...] check results when available at 1101 RPT #:[id number] END OF REPORT [facility] 2019-10-07 16:37:00 [facility] Rehab Progress Note REPORT#:[id number] REPORT STATUS: Signed DATE:10/07/19 TIME: 1637 PATIENT: MAC AGUSTIN UNIT #: [id number] ROOM/BED: [place] [address] : 47 AGE: 74 SEX: F ATTEND: Joel Myers MD ADM AUTHOR: uLcy Ayon PA-C * ALL edits or amendments must be made on the electronic/computer document * Subjective Chief complaint: Pt seen in bed. No complaints. States cold. Pt ruled out for COVID Objective General VS: Vital Signs: Date Time Temp Pulse Resp B/P B/P Pulse O2 O2 Flow FiO2 Mean Ox Delivery Rate 10/06 1620 98.2 60 18 121/68 86.1 97 10/06 0900 Nasal 3.429415 cannula 10/06 0800 97.8 64 33 125/58 [...] 97.7 63 16 104/68 80.0 99 Nasal 3.570614 cannula Patient Weight Weight (lb): 167 Weight (oz): 15.88 Weight (kg): 75.75 Medications: Active Meds + DC'd Last 24 Hrs Potassium Chloride 50 ML Q1HR IV (DC) Magnesium Sulfate 50 ML ONCE ONE IV (DC) Midodrine 5 MG 0900,1300,1700 PO Pantoprazole 40 MG BID@0600,1800 PO Megestrol Acetate 800 MG DAILY PO Zinc Oxide 1 APPLIC BID TOPICAL Lidocaine 1 EA Q24H TOPICAL Insulin Human Lispro 0 AC HS SUBQ Acetaminophen 650 MG Q4H PRN PRN PO Heparin Sodium 5,000 UNIT Q12HR SUBQ Physical Exam General appearance: altered mental status, alert, awake Psych: normal affect HEENT: anicteric, mucosal membranes moist, sclera clear Neck: supple, no JVD Cardiovascular: regular rate rhythm, S1/S2 Respiratory: aerating well, clear bilaterally Abdomen: bowel sounds present, non-distended, soft, soft, non-tender Skin: dry, intact Musculoskeletal - general: Musculoskeletal - general: joints normal, range of motion normal, no swelling Neuro/BACK SHOE WORKER: altered mental status, alert, no motor deficits, no sensory deficits Functional Progress Functional progress: performance of all activities: Y Precautions: Fall Safety [...] Time: 1410 Stop Time: 1448 Treatment time ( minutes): 38 Completed by: Raymond Urbina Supervising Therapist: Angela Spangler OTBonifacio Ricketts . Results Findings/Data: Laboratory Tests: 10/06 10/06 10/06 10/05 1108 0749 0247 2009 Chemistry Sodium (134 - 147 mEq/L) 139 [...] Magnesium (1.8 - 2.4 mg/dL) 1.50 L Hematology WBC (4.5 - 11.0 x10 [...] % (Auto) (14.0 - 32.0 %) 25.3 Kershaw % (Auto) (4.8 - 9.0 %) 14.7 H Eos % (Auto) (0.3 - 3.7 %) 1.4 Baso % (Auto) (0.0 - 2.0 %) 0.4 Neut # (Auto) (2.0 - 7.6 x10 3/uL) 5.41 Lymph # (Auto) (1.0 - 3.8 x10 3/uL) 2.40 Kershaw # (Auto) (0.1 - 0.8 x10 3/uL) [...] Serology COVID-19 PCR (Negative) Negative Diagnosis, Assessment Plan Problem List/A P: 1. Acute renal failure 2. Physical deconditioning 3. Hypomagnesemia 4. Lactic acidosis 5. DKA (diabetic ketoacidoses) 6. Metabolic acidosis 7. Gastric distention Free Text A P: 74 years old female with past medical history significant for Alzheimer's dementia, behavioral disturbance, hypertension, type 2 diabetes mellitus, migraine headaches, anxiety disorder, bowel and bladder incontinence, rheumatoid arthritis, frequent UTI. She was admitted secondary to [...] dementia she would benefit from [facility] her acute care stay. I discussed with the patient's [id number] who is on the chart as 1 of the contacts and she states their wish is for her to return to [facility] once medically cleared. 10/01: Encourage particpation with therpay.C. Diff not collected. Pt hgb stable. SNF once ready to be discharged. 10/02: Pt looks sleepy this a.m. Cr climbing. Minimal breakfast eaten this a.m. Nephrology on board monitoring. Plans to get MAg and Midodrine started. Encourage particpation with therapy. MAX A with bed mobility. Transfers not attempted. 10/06: COVID ruled out. Pt needs assistance. PT/OT to continue to follow. SNF once cleared. Rehab attestation: Face to face exam completed. Treatment plan discussed with patient. at 1639 RPT #:[id number] END OF REPORT [facility] 2019-10-07 08:17:00 [facility] ([facility]) Hospitalist Progress Note REPORT#:[id number] REPORT STATUS: Signed DATE:10/07/19 TIME: 816 PATIENT: MAC AGUSTIN UNIT #: [id number] ROOM/BED: [place] [address] : 47 AGE: 74 SEX: F ATTEND: Joel Myers MD ADM AUTHOR: Joel Myers MD * ALL edits or amendments must be made on the electronic/computer document * Subjective Chief Complaint: follow up for NATHEN/CKD, HTN. Review of Systems Additional notes: 12 point ROS negative except for mentioned in HPI. Objective General VS/I O: Vital Signs: Date Time Temp Pulse Resp [...] 97.7 63 16 104/68 80.0 99 Nasal 3.589584 cannula 10/05 1226 98.4 62 16 114/69 83.9 100 Nasal 3.334075 cannula 24 hour I O ending at 0700: 10/06 0700 10/05 1900 Intake Total 200 980.00 Output Total Balance 200 980.00 Intake, IV 150.00 Intake, Oral 200 420 Intake, Oral 410 Supplement Number 1 Bowel Movements Number 2 Incontinent Voids Number Voids 2 Patient 75.75 kg Weight Patient Weight Weight (lb): 167 Weight (oz): 15.88 Weight (kg): 75.75 Medications: Active Meds + DC'd Last 24 Hrs Potassium Chloride 50 ML Q1HR IV Magnesium Sulfate 50 ML ONCE ONE IV Furosemide 40 MG ONCE ONE IV (DC) Midodrine 5 MG 0900,1300,1700 PO Sodium Chloride 1,000 ML .[id number] IV (DC) Pantoprazole 40 MG BID@0600,1800 PO Megestrol Acetate 800 MG DAILY PO Zinc Oxide 1 APPLIC BID TOPICAL Lidocaine 1 EA Q24H TOPICAL Insulin Human Lispro 0 AC HS SUBQ Acetaminophen 650 MG Q4H PRN PRN PO Heparin Sodium 5,000 UNIT Q12HR SUBQ Physical Exam General appearance: confused, alert, awake Head/Eyes: atraumatic, normocephalic ENT: moist mucosal membranes Neck: non-tender, no JVD, no masses or swelling Cardiovascular: normal heart sounds, regular rate rhythm Respiratory: decreased breath sounds, rales (basal), rhonchi, symmetric expansion, no distress, no rales appreciated on anterior exam Abdomen: soft, no distention, no guarding, no rebound Genitourinary: no bladder distention Extremities: edema (bLE +1), no clubbing, no cyanosis Musculoskeletal: normal inspection Neuro/BACK SHOE WORKER: no motor deficits Skin: no rash Psychiatry: normal affect Results Findings/Data: Laboratory Tests 10/06 10/06 10/05 10/05 10/05 0749 246 2008 1732 1223 Chemistry Sodium (134 - [...] % (Auto) (14.0 - 32.0 %) 25.3 Kershaw % (Auto) (4.8 - 9.0 %) 14.7 H Eos % (Auto) (0.3 - 3.7 %) 1.4 Baso % (Auto) (0.0 - 2.0 %) 0.4 Neut # (Auto) (2.0 - 7.6 x10 3/uL) 5.41 Lymph # (Auto) (1.0 - 3.8 x10 3/uL) 2.40 Kershaw # (Auto) (0.1 - 0.8 x10 3/uL) [...] Negative Nasal/Oral COVID-19 PCR (Negative) Negative Radiology data: Recent Impressions: RADIOLOGY - XR CHEST 1 V 10/05 0930 Report Impression - Status: SIGNED Entered: 10/06/2019 0943 IMPRESSION: 1. Decreasing bilateral pleural effusions and bibasilar atelectasis. 2. Stable pulmonary vascular congestion Impression By: Delvis Johnson M.D. Diagnosis, Assessment Plan Plan discussed with: patient, nurse Free Text DxA P Notes Free text DxA P notes: Severe lactic acidosis Severe metabolic acidosis Acute renal failure Hypocalcemia Hypomagnesemia ?Septic shock vs lactic acidosis from metformin Dehydration Hypothermia DM HTN Dementia with behavior disturbance persistent hypoglycemia Plan: Ms. Agustin is a 74 yo female with non-specific symptoms of not feeling well, poor appetite that was found to have abnormal labs at [place], sent to ED for evaluation. In the [...] ischemic bowel. Will continue empiric Zosyn. - Zosyn - blood cultures pending - hold home meds - Accuchecks and SSI - replace electrolytes - heparin for DVT prophylaxsis 09/26 Improved lactic acidosis with dialysis. Given improvement, likely [...] life, not a good candidate for work up/treatment. BS well controlled with current insulin schedule Check labs in am 09/27 Lactate remains normal, continue to hold metformin Pt noted return of anion gap acidosis with ketonuria. Discussed with Dr. Aguilar , nephrology. Pt placed on DKA protocol to close anion gap, on D10 for glucose needs while on insulin drip. BNP elevated with clear lungs, no dependent edema, decreased O2 requirement. Give one dose of Lasix 40 mg IV, check CXR in the am, monitor for volume overload while getting DKA fluids. WBC decreased to 15, continue abx for now, d/c after 5 days Some blood noted in stool, CT with signs of chronic inflammation. Given her dementia, unsure that patient would tolerate bowel prep. GI consulted. Appreciate input on area in stomach with possible neoplasm. Check labs in am 09/28 Anion gap closed, off insulin drip Elevated lactate, monitor CXR shows severe vascular congestion and pleural fluid, likely related to fluids given for lactic acidosis and metabolic acidosis, pt not in respiratory distress - Lasix 60 mg IV q8 iniated by nephrology - D10 at 30 cc/hr to maintain blood sugar WBC decreased to 13, d/c abx after 5 days Colon with chronic inflammation, no work up per GI Will need EGD to evaluate abnormality in gastric wall once improved Check labs in am 09/29 Off insulin drip CXR reviewed Cont lasix WBC count came down to 10.5 On zosyn Transfer to the floor dw RN, [employer]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 Will test for COVID-19 10/07/2019 - Rapid COVID and PCR test negative - transfer [facility] - replete K+ and Mg+ - off IV fluids. - renal function improving total time spent with evaluating patient/data as well as providing education/ counselling to patient was more than 35 minutes at 0733 RPT #:[id number] END OF REPORT [facility] 2019-10-07 07:32:00 [facility] ([facility]) Nephrology Progress Note REPORT#:[id number] REPORT STATUS: Signed DATE:10/07/19 TIME: 07 PATIENT: MAC AGUSTIN UNIT #: [id number] ROOM/BED: [place] [address] : 47 AGE: 74 SEX: F ATTEND: Joel Myers MD ADM AUTHOR: Rabia Aguilar MD * ALL edits or amendments must be made on the electronic/computer document * Subjective Chief Complaint: AMS/Lactic acidosis/NATHEN Unable to obtain: patient condition Comments: Patient seen and evaluated, HPI no change from initial, feels okay Review of Systems Unable to obtain due to: patient's condition Objective General VS/I O: Vital Signs: Date Time Temp Pulse Resp [...] 36.5 63 16 104/68 80.0 99 Nasal 3.089005 cannula 10/05 1226 36.9 62 16 114/69 83.9 100 Nasal 3.460366 cannula 10/05 0736 36.9 61 16 107/53 71.1 97 Nasal 3.617244 cannula 24 hour I O ending at 0700: 10/06 0700 10/05 1900 Intake Total 200 980.00 Output Total Balance 200 980.00 Intake, IV 150.00 Intake, Oral 200 420 Intake, Oral 410 Supplement Number 1 Bowel Movements Number 2 Incontinent Voids Number Voids 2 Patient 75.75 kg Weight Physical Exam General appearance: alert, no acute distress Head/eyes: atraumatic, normocephalic ENT: normal nose Neck: supple/no meningismus Cardiovascular: normal heart sounds, no rub Respiratory: aerating well, symmetric expansion Abdomen: soft Genitourinary: no ballard Extremities: no edema Musculoskeletal: normal inspection Neuro/BACK SHOE WORKER: altered mental status Skin: dry Results Findings/Data: Laboratory Tests 10/062 1223 0734 Chemistry Sodium (134 [...] % (Auto) (14.0 - 32.0 %) 25.3 Kershaw % (Auto) (4.8 - 9.0 %) 14.7 H Eos % (Auto) (0.3 - 3.7 %) 1.4 Baso % (Auto) (0.0 - 2.0 %) 0.4 Neut # (Auto) (2.0 - 7.6 x10 3/uL) 5.41 Lymph # (Auto) (1.0 - 3.8 x10 3/uL) 2.40 Kershaw # (Auto) (0.1 - 0.8 x10 3/uL) [...] Nasal/Oral COVID-19 PCR (Negative) Negative Diagnosis, Assessment Plan Free Text A P: Patient seen and evaluated, discussed with care team, images and laboratories reviewed. History of dementia History of rheumatoid arthritis History of frequent falls History of frequent UTIs History of hypertension: Currently hypotensive Hypokalemia: We will supplement Severe hypomagnesemia we will supplement Hypocalcemia: We will supplement Hypoalbuminemia Severe lactic acidosis: Etiology, could be related to septic shock, however source is unclear, rule out ischemic bowel, Zosyn, will need to review her medications if patient has been on metformin, lactic acidosis due to metformin in the setting of acute renal failure is a possibility and will do hemodialysis in the setting. Patient has been taking Metformin 1000 BID, kenneth has lactic acidosis that is induced by Metformin, discussed with deysi and ICC/Primary team will proceed with HD 09/27/2019 mental status a lot better, hemodynamically more stable, pressors being weaned off, received 6 hours of hemodialysis yesterday, her last set of blood gas showed a pH of 7.40, PCO2 25, PO2 55, lactic acid 6.2 improving, sodium is 143 potassium 3.6 CO2 20 chloride 101 BUN 13 creatinine 1.1, hemoglobin this morning 9.7, white blood count 19.78 trending down, platelet 156 , her clinical picture is consistent with metformin induced lactic acidosis, will do another session of hemodialysis, 4 hours, potassium 3.5, no ultrafiltration, will give 20 mmol of potassium phosphate and expectation of hypophosphatemia during hemodialysis. katie and evaluated during HD, discussed with RN and HD nurse 09/28/2019 laboratories from this morning showed sodium 144, potassium 3.3 we will give KCl 20 mEq IV x1, chloride 104, bicarbonate 16, creatinine 1.2, lactic acid 1.2, hemoglobin 8.4, white blood count 15.2, blood culture still negative, anion gap today is 24 with a normal lactic acid etiology unclear will repeat BMP , repeat lactic acid and order serum acetone and do urinalysis to check for urine ketones, also will do a blood gas. Ketones came back as large, This is kenneth starvation ketoacidosis that has been exacerbated by gluconeogenesis inhibition by Metformin and has been reported in the literature, will start Glucose and insulin drip 09/29/2019 laboratories from this morning showed sodium 142, [...] afternoon, her creatinine is 2.2, not sure what her baseline creatinine, her creatinine is relatively stable since yesterday, will monitor closely, hemoglobin is 7.8, white blood count 13.57 improving. 09/30/2019 laboratories from this morning showed sodium 138, potassium 3.5, CO2 34, chloride 100, BUN and creatinine 22 and 2.4 up some likely related to diuretics, albumin 1.8, hemoglobin 7.8, platelet 60, white blood count 10.51 continues to trend down, lactic acid 1.2 within normal limit, urine output about 1900 cc with Lasix. Chest x-ray still pending. [...] volume contraction. Will check post void resdiual 10/03/2019 laboratories from this morning showed sodium 137, potassium 3.6, CO2 28, BUN and creatinine 30 and 3.0 continue to rise, blood pressures on the low side will try midodrine 5 mg p.o. 3 times daily, hypomagnesemia 1.7 we will give magnesium sulfate 1 g IV x1, hemoglobin 8.1, white blood count 5.21, will check the results of postvoid residual. BNP 109 will increase IVF to 75 cc per h 10/04/19 Hgb 8.4, WBC 109, Na 136, K 4.1, HCO3 23, BUN 31, Creat 3.0 stable since yesterday, continue IVF 10/05/2019 laboratories from today showed hemoglobin 8, platelet 192, white blood count 7.15, sodium 138, potassium 3.3 we will give KCl 10 mEq IV x3 doses, CO2 28, BUN and creatinine 27 and 2.7 trending down, continue IV fluid. 10/06/2019 laboratories from this morning showed hemoglobin 7.6, white blood count 7.11, platelet 212, sodium 139, potassium 3.6, CO2 23, BUN and creatinine 26 and 2.6 continue to trend down, continue IV fluid. 10/07/2019 laboratories from this morning showed sodium 139, potassium 3.1 we will give KCl 10 mEq IV times 4 doses, CO2 24, BUN and creatinine 27 and 22.4 improving, hypomagnesemia 1.5 we will give magnesium sulfate 2 g IV x1, hemoglobin 8, platelet 216.Chest x-ray from yesterday showed mild congestion, her BNP was 300, IV fluid was DC'd. at 1214 RPT #:[id number] END OF REPORT [facility] 2019-10-06 08:21:00 [facility] ([facility]) Nephrology Progress Note REPORT#:[id number] REPORT STATUS: Signed DATE:10/06/19 TIME: 820 PATIENT: MAC AGUSTIN UNIT #: [id number] ROOM/BED: [place] [address] : 47 AGE: 74 SEX: F ATTEND: Joel Myers MD ADM AUTHOR: Rabia Aguilar MD * ALL edits or amendments must be made on the electronic/computer document * Subjective Chief Complaint: AMS/Lactic acidosis/NATHEN Unable to obtain: dementia Comments: Patient seen and evaluated, HPI no change from initial, feels okay Review of Systems Unable to obtain due to: dementia Objective General VS/I O: Vital Signs: Date Time Temp Pulse Resp B/P B/P Pulse O2 O2 Flow FiO2 Mean Ox Delivery Rate 10/05 0736 36.9 61 16 107/53 71.1 97 Nasal 3.250813 cannula 10/05 0554 37.2 56 16 100/61 74.0 94 10/05 0007 37.0 51 16 116/66 82.7 95 10/04 2022 37.0 56 16 107/56 72.7 95 10/04 1920 3.825204 10/04 1709 37.0 60 16 110/65 80.1 93 Room air 10/04 1130 37.0 64 16 117/75 89.1 97 Nasal 3.253626 cannula 10/04 0856 36.7 63 16 115/74 87.8 98 Nasal 3.693154 cannula 24 hour I O ending at 0700: 10/05 0710/04 1900 Intake Total 100 1200.00 Output Total Balance 100 1200.00 Intake, IV 700.00 Intake, Oral 100 170 Intake, Oral 0 330 Supplement Number 1 Bowel Movements Number Voids 1 Medications Active Meds + DC'd Last 24 Hrs Potassium Chloride 50 ML Q1HR IV (DC) Midodrine 5 MG 0900,1300,1700 PO Sodium Chloride 1,000 ML .[id number] IV Pantoprazole 40 MG BID@0600,1800 PO Megestrol Acetate 800 MG DAILY PO Zinc Oxide 1 APPLIC BID TOPICAL Lidocaine 1 EA Q24H TOPICAL Insulin Human Lispro 0 AC HS SUBQ Acetaminophen 650 MG Q4H PRN PRN PO Heparin Sodium 5,000 UNIT Q12HR SUBQ Physical Exam General appearance: alert, no acute distress Head/eyes: atraumatic, normocephalic ENT: normal nose Neck: supple/no meningismus Cardiovascular: normal heart sounds, no rub Respiratory: aerating well, symmetric expansion Abdomen: soft Genitourinary: no ballard Extremities: no edema Musculoskeletal: normal inspection Neuro/BACK SHOE WORKER: altered mental status Skin: dry Results Findings/Data: Laboratory Tests 10/04 1710 1128 0820 0538 Chemistry [...] % (Auto) (14.0 - 32.0 %) 29.3 Kershaw % (Auto) (4.8 - 9.0 %) 19.0 H Eos % (Auto) (0.3 - 3.7 %) 1.8 Baso % (Auto) (0.0 - 2.0 %) 0.4 Neut # (Auto) (2.0 - 7.6 x10 3/uL) 2.74 Lymph # (Auto) (1.0 - 3.8 x10 3/uL) 1.65 Kershaw # (Auto) (0.1 - 0.8 x10 3/uL) [...] 10.7 H Diagnosis, Assessment Plan Free Text A P: Patient seen and evaluated, discussed with care team, images and laboratories reviewed. History of dementia History of rheumatoid arthritis History of frequent falls History of frequent UTIs History of hypertension: Currently hypotensive Hypokalemia: We will supplement Severe hypomagnesemia we will supplement Hypocalcemia: We will supplement Hypoalbuminemia Severe lactic acidosis: Etiology, could be related to septic shock, however source is unclear, rule out ischemic bowel, Zosyn, will need to review her medications if patient has been on metformin, lactic acidosis due to metformin in the setting of acute renal failure is a possibility and will do hemodialysis in the setting. Patient has been taking Metformin 1000 BID, kenneth has lactic acidosis that is induced by Metformin, discussed with deysi and ICC/Primary team will proceed with HD 09/27/2019 mental status a lot better, hemodynamically more stable, pressors being weaned off, received 6 hours of hemodialysis yesterday, her last set of blood gas showed a pH of 7.40, PCO2 25, PO2 55, lactic acid 6.2 improving, sodium is 143 potassium 3.6 CO2 20 chloride 101 BUN 13 creatinine 1.1, hemoglobin this morning 9.7, white blood count 19.78 trending down, platelet 156 , her clinical picture is consistent with metformin induced lactic acidosis, will do another session of hemodialysis, 4 hours, potassium 3.5, no ultrafiltration, will give 20 mmol of potassium phosphate and expectation of hypophosphatemia during hemodialysis. katie and evaluated during HD, discussed with RN and HD nurse 09/28/2019 laboratories from this morning showed sodium 144, potassium 3.3 we will give KCl 20 mEq IV x1, chloride 104, bicarbonate 16, creatinine 1.2, lactic acid 1.2, hemoglobin 8.4, white blood count 15.2, blood culture still negative, anion gap today is 24 with a normal lactic acid etiology unclear will repeat BMP , repeat lactic acid and order serum acetone and do urinalysis to check for urine ketones, also will do a blood gas. Ketones came back as large, This is likley starvation ketoacidosis that has been exacerbated by gluconeogenesis inhibition by Metformin and has been reported in the literature, will start Glucose and insulin drip 09/29/2019 laboratories from this morning showed sodium 142, [...] afternoon, her creatinine is 2.2, not sure what her baseline creatinine, her creatinine is relatively stable since yesterday, will monitor closely, hemoglobin is 7.8, white blood count 13.57 improving. 09/30/2019 laboratories from this morning showed sodium 138, potassium 3.5, CO2 34, chloride 100, BUN and creatinine 22 and 2.4 up some likely related to diuretics, albumin 1.8, hemoglobin 7.8, platelet 60, white blood count 10.51 continues to trend down, lactic acid 1.2 within normal limit, urine output about 1900 cc with Lasix. Chest x-ray still pending. [...] volume contraction. Will check post void resdiual 10/03/2019 laboratories from this morning showed sodium 137, potassium 3.6, CO2 28, BUN and creatinine 30 and 3.0 continue to rise, blood pressures on the low side will try midodrine 5 mg p.o. 3 times daily, hypomagnesemia 1.7 we will give magnesium sulfate 1 g IV x1, hemoglobin 8.1, white blood count 5.21, will check the results of postvoid residual. BNP 109 will increase IVF to 75 cc per h 10/04/19 Hgb 8.4, WBC 109, Na 136, K 4.1, HCO3 23, BUN 31, Creat 3.0 stable since yesterday, continue IVF 10/05/2019 laboratories from today showed hemoglobin 8, platelet 192, white blood count 7.15, sodium 138, potassium 3.3 we will give KCl 10 mEq IV x3 doses, CO2 28, BUN and creatinine 27 and 2.7 trending down, continue IV fluid. 10/06/2019 laboratories from this morning showed hemoglobin 7.6, white blood count 7.11, platelet 212, sodium 139, potassium 3.6, CO2 23, BUN and creatinine 26 and 2.6 continue to trend down, continue IV fluid. at 1344 RPT #:[id number] END OF REPORT [facility] 2019-10-06 08:00:00 [facility] Hospitalist Progress Note REPORT#:[id number] REPORT STATUS: Signed DATE:10/06/19 TIME: 0800 PATIENT: MAC AGUSTIN UNIT #: [id number] ROOM/BED: [place] [address] : 47 AGE: 74 SEX: F ATTEND: Joel Myers MD ADM AUTHOR: Joel Myers MD * ALL edits or amendments must be made on the electronic/computer document * Subjective Chief Complaint: follow up for NATHEN/CKD, HTN. c/o worsening shortness of breath. coughing but not able to expectorate. Review of Systems Additional notes: 12 point ROS negative except for mentioned in HPI. Objective General VS/I O: Vital Signs: Date Time Temp Pulse Resp B/P B/P Pulse O2 O2 Flow FiO2 Mean Ox Delivery Rate 10/05 0736 98.4 61 16 107/53 71.1 97 Nasal 3.829571 cannula 10/05 0554 99.0 56 16 100/61 74.0 94 10/05 0007 98.6 51 16 116/66 82.7 95 10/04 2022 98.6 56 16 107/56 72.7 95 10/04 1920 3.480977 10/04 1709 98.6 60 16 110/65 80.1 93 Room air 10/04 1130 98.6 64 16 117/75 89.1 97 Nasal 3.671101 cannula 10/04 0856 98.1 63 16 115/74 87.8 98 Nasal 3.492628 cannula 24 hour I O ending at 0700: 10/05 0700 10/04 1900 Intake Total 100 1200.00 Output Total Balance 100 1200.00 Intake, IV 700.00 Intake, Oral 100 170 Intake, Oral 0 330 Supplement Number 1 Bowel Movements Number Voids 1 Patient Weight Weight (lb): 167 Weight (oz): 15.88 Weight (kg): 75.75 Medications: Active Meds + DC'd Last 24 Hrs Potassium Chloride 50 ML Q1HR IV (DC) Midodrine 5 MG 0900,1300,1700 PO Sodium Chloride 1,000 ML .[id number] IV Pantoprazole 40 MG BID@0600,1800 PO Megestrol Acetate 800 MG DAILY PO Zinc Oxide 1 APPLIC BID TOPICAL Lidocaine 1 EA Q24H TOPICAL Insulin Human Lispro 0 AC HS SUBQ Acetaminophen 650 MG Q4H PRN PRN PO Heparin Sodium 5,000 UNIT Q12HR SUBQ Physical Exam General appearance: confused, alert, awake Head/Eyes: atraumatic, normocephalic ENT: moist mucosal membranes Neck: non-tender, no JVD, no masses or swelling Cardiovascular: normal heart sounds, regular rate rhythm Respiratory: decreased breath sounds, rales (basal), rhonchi, symmetric expansion, no distress, no rales appreciated on anterior exam Abdomen: soft, no distention, no guarding, no rebound Genitourinary: no bladder distention Extremities: edema (bLE +1), no clubbing, no cyanosis Musculoskeletal: normal inspection Neuro/BACK SHOE WORKER: no motor deficits Skin: no rash Psychiatry: normal affect Results Findings/Data: Laboratory Tests 10/04 1710 1128 0820 Chemistry POC [...] Diagnosis, Assessment Plan Free Text DxA P Notes Free text DxA P notes: Severe lactic acidosis Severe metabolic acidosis Acute renal failure Hypocalcemia Hypomagnesemia ?Septic shock vs lactic acidosis from metformin Dehydration Hypothermia DM HTN Dementia with behavior disturbance persistent hypoglycemia Plan: Ms. Agustin is a 74 yo female with non-specific symptoms of not feeling well, poor appetite that was found to have abnormal labs [place], sent to ED for evaluation. In the [...] ischemic bowel. Will continue empiric Zosyn. - Zosyn - blood cultures pending - hold home meds - Accuchecks and SSI - replace electrolytes - heparin for DVT prophylaxsis 09/26 Improved lactic acidosis with dialysis. Given improvement, likely [...] life, not a good candidate for work up/treatment. BS well controlled with current insulin schedule Check labs in am 09/27 Lactate remains normal, continue to hold metformin Pt noted return of anion gap acidosis with ketonuria. Discussed with Dr. Aguilar , nephrology. Pt placed on DKA protocol to close anion gap, on D10 for glucose needs while on insulin drip. BNP elevated with clear lungs, no dependent edema, decreased O2 requirement. Give one dose of Lasix 40 mg IV, check CXR in the am, monitor for volume overload while getting DKA fluids. WBC decreased to 15, continue abx for now, d/c after 5 days Some blood noted in stool, CT with signs of chronic inflammation. Given her dementia, unsure that patient would tolerate bowel prep. GI consulted. Appreciate input on area in stomach with possible neoplasm. Check labs in am 09/28 Anion gap closed, off insulin drip Elevated lactate, monitor CXR shows severe vascular congestion and pleural fluid, likely related to fluids given for lactic acidosis and metabolic acidosis, pt not in respiratory distress - Lasix 60 mg IV q8 iniated by nephrology - D10 at 30 cc/hr to maintain blood sugar WBC decreased to 13, d/c abx after 5 days Colon with chronic inflammation, no work up per GI Will need EGD to evaluate abnormality in gastric wall once improved Check labs in am 09/29 Off insulin drip CXR reviewed Cont lasix WBC count came down to 10.5 On zosyn Transfer to the floor dw RN, SHELL MOLD BOND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 Will test for COVID-19 total time spent with evaluating patient/data as well as providing education/ counselling to patient was more than 35 minutes at 0824 RPT #:[id number] END OF REPORT [facility] 2019-10-05 08:04:00 [facility] ([facility] Nephrology Progress Note REPORT#:[id number] REPORT STATUS: Signed DATE:10/05/19 TIME: 0804 PATIENT: MAC AGUSTIN UNIT #: [id number] ROOM/BED: [place] [address] : 47 AGE: 74 SEX: F ATTEND: Joel Myers MD ADM AUTHOR: Rabia Aguilar MD * ALL edits or amendments must be made on the electronic/computer document * Subjective Chief Complaint: AMS/Lactic acidosis/NATHEN Unable to obtain: patient condition Comments: Patient seen and evaluated, HPI no change from initial, feels okay Review of Systems Unable to obtain due to: Patient's condition Objective General VS/I O: Vital Signs: Date Time Temp Pulse Resp B/P B/P Pulse O2 O2 Flow FiO2 Mean Ox Delivery Rate 10/04 0504 36.8 60 17 113/67 82.0 98 10/04 0207 Nasal 4.073584 cannula 10/04 0000 36.6 56 16 114/67 82.4 95 10/03 2105 37.0 56 16 112/69 83.7 98 10/03 1550 36.6 57 18 110/69 82.4 98 Room air 10/03 1142 36.4 55 18 110/63 78.8 97 Room air 10/03 1000 Nasal 4.775785 cannula 24 hour I O ending at 0700: 10/04 0700 10/03 1900 Intake Total 750.00 150 Output Total Balance 750.00 150 Intake, IV 650.00 Intake, Oral 100 120 Intake, Oral 30 Supplement Number 1 Bowel Movements Number 1 Incontinent Voids Number Voids 2 Patient 75.75 kg Weight Medications Active Meds + DC'd Last 24 Hrs Magnesium Sulfate/Dextrose 100 ML ONCE ONE IV (DC) Midodrine 5 MG 0900,1300,1700 PO Sodium Chloride 1,000 ML .[id number] IV Pantoprazole 40 MG BID@0600,1800 PO Megestrol Acetate 800 MG DAILY PO Zinc Oxide 1 APPLIC BID TOPICAL Lidocaine 1 EA Q24H TOPICAL Insulin Human Lispro 0 AC HS SUBQ Acetaminophen 650 MG Q4H PRN PRN PO Heparin Sodium 5,000 UNIT Q12HR SUBQ Physical Exam General appearance: alert, no acute distress Head/eyes: atraumatic, normocephalic ENT: normal nose Neck: supple/no meningismus Cardiovascular: normal heart sounds, no rub Respiratory: aerating well, symmetric expansion Abdomen: soft Genitourinary: no ballard Extremities: no edema Musculoskeletal: normal inspection Neuro/BACK SHOE WORKER: altered mental status Skin: dry Results Findings/Data: Laboratory Tests 10/03 10/03 10/03 10/03 10/03 2103 [...] Laboratory Tests 10/04 10/03 10/02 0538 0505 0520 Hematology WBC (4.5 - 11.0 x10 [...] (Auto) (14.0 - 32.0 %) 29.3 30.3 Kershaw % (Auto) (4.8 - 9.0 %) 19.0 H 14.0 H Eos % (Auto) (0.3 - 3.7 %) 1.8 2.5 Baso % (Auto) (0.0 - 2.0 %) 0.4 0.4 Neut # (Auto) (2.0 - 7.6 x10 3/uL) 2.74 2.73 Lymph # (Auto) (1.0 - 3.8 x10 3/uL) 1.65 1.58 Kershaw # (Auto) (0.1 - 0.8 x10 3/uL) [...] - 9.0 fL) 10.3 H Diagnosis, Assessment Plan Free Text A P: Patient seen and evaluated, discussed with care team, images and laboratories reviewed. History of dementia History of rheumatoid arthritis History of frequent falls History of frequent UTIs History of hypertension: Currently hypotensive Hypokalemia: We will supplement Severe hypomagnesemia we will supplement Hypocalcemia: We will supplement Hypoalbuminemia Severe lactic acidosis: Etiology, could be related to septic shock, however source is unclear, rule out ischemic bowel, Zosyn, will need to review her medications if patient has been on metformin, lactic acidosis due to metformin in the setting of acute renal failure is a possibility and will do hemodialysis in the setting. Patient has been taking Metformin 1000 BID, kenneth has lactic acidosis that is induced by Metformin, discussed with deysi and ICC/Primary team will proceed with HD 09/27/2019 mental status a lot better, hemodynamically more stable, pressors being weaned off, received 6 hours of hemodialysis yesterday, her last set of blood gas showed a pH of 7.40, PCO2 25, PO2 55, lactic acid 6.2 improving, sodium is 143 potassium 3.6 CO2 20 chloride 101 BUN 13 creatinine 1.1, hemoglobin this morning 9.7, white blood count 19.78 trending down, platelet 156 , her clinical picture is consistent with metformin induced lactic acidosis, will do another session of hemodialysis, 4 hours, potassium 3.5, no ultrafiltration, will give 20 mmol of potassium phosphate and expectation of hypophosphatemia during hemodialysis. katie and evaluated during HD, discussed with RN and HD nurse 09/28/2019 laboratories from this morning showed sodium 144, potassium 3.3 we will give KCl 20 mEq IV x1, chloride 104, bicarbonate 16, creatinine 1.2, lactic acid 1.2, hemoglobin 8.4, white blood count 15.2, blood culture still negative, anion gap today is 24 with a normal lactic acid etiology unclear will repeat BMP , repeat lactic acid and order serum acetone and do urinalysis to check for urine ketones, also will do a blood gas. Ketones came back as large, This is likley starvation ketoacidosis that has been exacerbated by gluconeogenesis inhibition by Metformin and has been reported in the literature, will start Glucose and insulin drip 09/29/2019 laboratories from this morning showed sodium 142, [...] afternoon, her creatinine is 2.2, not sure what her baseline creatinine, her creatinine is relatively stable since yesterday, will monitor closely, hemoglobin is 7.8, white blood count 13.57 improving. 09/30/2019 laboratories from this morning showed sodium 138, potassium 3.5, CO2 34, chloride 100, BUN and creatinine 22 and 2.4 up some likely related to diuretics, albumin 1.8, hemoglobin 7.8, platelet 60, white blood count 10.51 continues to trend down, lactic acid 1.2 within normal limit, urine output about 1900 cc with Lasix. Chest x-ray still pending. [...] volume contraction. Will check post void resdiual 10/03/2019 laboratories from this morning showed sodium 137, potassium 3.6, CO2 28, BUN and creatinine 30 and 3.0 continue to rise, blood pressures on the low side will try midodrine 5 mg p.o. 3 times daily, hypomagnesemia 1.7 we will give magnesium sulfate 1 g IV x1, hemoglobin 8.1, white blood count 5.21, will check the results of postvoid residual. BNP 109 will increase IVF to 75 cc per h 10/04/19 Hgb 8.4, WBC 109, Na 136, K 4.1, HCO3 23, BUN 31, Creat 3.0 stable since yesterday, continue IVF 10/05/2019 laboratories from today showed hemoglobin 8, platelet 192, white blood count 7.15, sodium 138, potassium 3.3 we will give KCl 10 mEq IV x3 doses, CO2 28, BUN and creatinine 27 and 2.7 trending down, continue IV fluid. at 1306 RPT #:[id number] END OF REPORT [facility] 2019-10-05 07:53:00 [facility] Hospitalist Progress Note REPORT#:[id number] REPORT STATUS: Signed DATE:10/05/19 TIME: 0753 PATIENT: MAC AGUSTIN UNIT #: [id number] ROOM/BED: [place] [address] : 47 AGE: 74 SEX: F ATTEND: Joel Myers MD ADM AUTHOR: Joel Myers MD * ALL edits or amendments must be made on the electronic/computer document * Subjective Chief Complaint: follow up for NATHEN/CKD, HTN. no change. denies pain. eating some Review of Systems Additional notes: 12 point ROS negative except for mentioned in HPI. Objective General VS/I O: Vital Signs: Date Time Temp Pulse Resp B/P B/P Pulse O2 O2 Flow FiO2 Mean Ox Delivery Rate 10/04 0504 98.2 60 17 113/67 82.0 98 10/04 0207 Nasal 4.762964 cannula 10/04 0000 97.9 56 16 114/67 82.4 95 10/03 2105 98.6 56 16 112/69 83.7 98 10/03 1550 97.9 57 18 110/69 82.4 98 Room air 10/03 1142 97.5 55 18 110/63 78.8 97 Room air 10/03 1000 Nasal 4.923095 cannula 24 hour I O ending at 0700: 10/04 0700 10/03 1900 Intake Total 750.00 150 Output Total Balance 750.00 150 Intake, IV 650.00 Intake, Oral 100 120 Intake, Oral 30 Supplement Number 1 Bowel Movements Number 1 Incontinent Voids Number Voids 2 Patient 75.75 kg Weight Patient Weight Weight (lb): 167 Weight (oz): 15.88 Weight (kg): 75.75 Medications: Active Meds + DC'd Last 24 Hrs Magnesium Sulfate/Dextrose 100 ML ONCE ONE IV (DC) Midodrine 5 MG 0900,1300,1700 PO Sodium Chloride 1,000 ML .[id number] IV Pantoprazole 40 MG BID@0600,1800 PO Megestrol Acetate 800 MG DAILY PO Zinc Oxide 1 APPLIC BID TOPICAL Lidocaine 1 EA Q24H TOPICAL Insulin Human Lispro 0 AC HS SUBQ Acetaminophen 650 MG Q4H PRN PRN PO Heparin Sodium 5,000 UNIT Q12HR SUBQ Physical Exam General appearance: alert, awake, pleasant Head/Eyes: atraumatic, normocephalic ENT: moist mucosal membranes Neck: non-tender, no JVD, no masses or swelling Cardiovascular: normal heart sounds, regular rate rhythm Respiratory: decreased breath sounds, rhonchi, symmetric expansion, no distress, no rales appreciated on anterior exam Abdomen: soft, no distention, no guarding, no rebound Genitourinary: no bladder distention Extremities: edema (bLE +1), no clubbing, no cyanosis Musculoskeletal: normal inspection Neuro/BACK SHOE WORKER: no motor deficits Skin: no rash Lymphatics: neck normal Psychiatry: normal affect Results Findings/Data: Laboratory Tests 10/03 10/03 10/03 2103 1551 1139 Chemistry POC Glucose (70 - 110 MG/DL) 145 H 120 H 156 H Diagnosis, Assessment Plan Free Text DxA P Notes Free text DxA P notes: Severe lactic acidosis Severe metabolic acidosis Acute renal failure Hypocalcemia Hypomagnesemia ?Septic shock vs lactic acidosis from metformin Dehydration Hypothermia DM HTN Dementia with behavior disturbance persistent hypoglycemia Plan: Ms. Agustin is a 74 yo female with non-specific symptoms of not feeling well, poor appetite that was found to have abnormal labs at [place], sent to ED for evaluation. In the [...] ischemic bowel. Will continue empiric Zosyn. - Zosyn - blood cultures pending - hold home meds - Accuchecks and SSI - replace electrolytes - heparin for DVT prophylaxsis 09/26 Improved lactic acidosis with dialysis. Given improvement, likely [...] life, not a good candidate for work up/treatment. BS well controlled with current insulin schedule Check labs in am 18 Lactate remains normal, continue to hold metformin Pt noted return of anion gap acidosis with ketonuria. Discussed with Dr. Aguilar , nephrology. Pt placed on DKA protocol to close anion gap, on D10 for glucose needs while on insulin drip. BNP elevated with clear lungs, no dependent edema, decreased O2 requirement. Give one dose of Lasix 40 mg IV, check CXR in the am, monitor for volume overload while getting DKA fluids. WBC decreased to 15, continue abx for now, d/c after 5 days Some blood noted in stool, CT with signs of chronic inflammation. Given her dementia, unsure that patient would tolerate bowel prep. GI consulted. Appreciate input on area in stomach with possible neoplasm. Check labs in am 09/28 Anion gap closed, off insulin drip Elevated lactate, monitor CXR shows severe vascular congestion and pleural fluid, likely related to fluids given for lactic acidosis and metabolic acidosis, pt not in respiratory distress - Lasix 60 mg IV q8 iniated by nephrology - D10 at 30 cc/hr to maintain blood sugar WBC decreased to 13, d/c abx after 5 days Colon with chronic inflammation, no work up per GI Will need EGD to evaluate abnormality in gastric wall once improved Check labs in am 4/20 Off insulin drip CXR reviewed Cont lasix WBC count came down to 10.5 On zosyn Transfer to the floor dw RN, SHELL M[employer] BONDING MACHINE OPERATOR, consultants CXR and telemetry personally reviewed Further recs per clinical course 10/01/2019 - blood [...] - d/w patient's nurse. - calorie counting total time spent with evaluating patient/data as well as providing education/ counselling to patient was more than 35 minutes at 0806 RPT #:[id number] END OF REPORT [facility] 2019-10-04 13:20:00 [facility] ([facility] Gastroenterology Progress Note REPORT#:[id number] REPORT STATUS: Signed DATE:10/04/19 TIME: 1320 PATIENT: MAC AGUSTIN UNIT #: [id number] ROOM/BED: 4431-1 : 47 AGE: 74 SEX: F ATTEND: Joel Myers MD ADM AUTHOR: Arian Anderson * ALL edits or amendments must be made on the electronic/computer document * Subjective Chief Complaint: weak HPI: No new complaints. Eating some. Review of Systems Unable to obtain due to: Dementia Objective General VS/I O: Last Documented: Result Date Time Pulse Ox 97 10/03 1142 B/P 110/63 10/03 1142 B/P Mean 78.8 10/03 1142 O2 Delivery Room air 10/03 1142 Temp 36.4 10/03 1142 Pulse 55 10/03 1142 Resp 18 10/03 1142 O2 Flow Rate 4.445570 10/02 2014 24 hour I O ending at 0700: 10/03 0700 10/02 1900 Intake Total 30 75 Output Total Balance 30 75 Intake, Oral 30 Intake, Oral 0 75 Supplement Number 5 Incontinent Voids Patient Weight Weight (lb): 167 Weight (oz): 15.88 Weight (kg): 75.75 Medications: Active Meds + DC'd Last 24 Hrs Magnesium Sulfate/Dextrose 100 ML ONCE ONE IV (DC) Midodrine 5 MG 0900,1300,1700 PO Sodium Chloride 1,000 ML .[id number] IV Pantoprazole 40 MG BID@0600,1800 PO Megestrol Acetate 800 MG DAILY PO Zinc Oxide 1 APPLIC BID TOPICAL Lidocaine 1 EA Q24H TOPICAL Insulin Human Lispro 0 AC HS SUBQ Morphine Sulfate 2 MG Q4H PRN PRN IV (DC) Acetaminophen 650 MG Q4H PRN PRN PO Heparin Sodium 5,000 UNIT Q12HR SUBQ Physical Exam General appearance: awake, no acute distress HEENT: moist mucosal membranes Cardiovascular: normal S1/S2 Respiratory: clear to auscultation Abdomen: non-tender, normal bowel sounds, soft, no distention Extremities: edema Musculoskeletal: normal inspection Skin: dry Results Findings/Data: Laboratory Tests 10/04/19 0505: [Embedded Image Not Available] Laboratory Tests 10/03 10/03 10/03 10/02 10/02 1139 [...] % (Auto) (14.0 - 32.0 %) 29.3 Kershaw % (Auto) (4.8 - 9.0 %) 19.0 H Eos % (Auto) (0.3 - 3.7 %) 1.8 Baso % (Auto) (0.0 - 2.0 %) 0.4 Neut # (Auto) (2.0 - 7.6 x10 3/uL) 2.74 Lymph # (Auto) (1.0 - 3.8 x10 3/uL) 1.65 Kershaw # (Auto) (0.1 - 0.8 x10 3/uL) [...] labs reviewed, vital signs stable Diagnosis, Assessment Plan Problem List/A P: 1. Antibiotic-associated diarrhea Free Text A P: IMPRESSION: A 74-year-old female with a host of comorbidities, especially advanced dementia, presented with failure to thrive kind of situation, labs were significantly abnormal with electrolyte disbalance, acute renal failure, metabolic acidosis and underlying sepsis from urinary tract infection. UTI is being treated with IV antibiotic. She is responding. The CT finding of colonic wall thickening as well as gastric distention with gastric wall thickening is an incidental finding. PLAN: 1. Colonic wall thickening is not concerning. This diffuse colonic wall edema could be due to underlying sepsis and hypoalbuminemia. This does not warrant any further investigation at this time. It seems to be self-limiting. 2. Gastric distention, gastric wall thickening certainly needs further evaluation with direct visualization. Therefore, upper endoscopy should be considered when the patient is medically stable and has recovered well from her current acute illness. 10/04/19 - C diff ordered and pending collection. Diarrhea resolved. - Broaden stool studies. Pending collection. - PPI PO - Continue Megace - Supportive care - Outpatient EGD and colonoscopy given current COVID restrictions and no evidence of active bleeding - Consider NGT versus IR placed g-tube if PO intake does not improve and family is agreeable. - Discharge per primary at 1321 RPT #:[id number] END OF REPORT [facility] 2019-10-04 13:20:00 [facility] ([facility]) Gastroenterology Progress Note REPORT#:[id number] REPORT STATUS: Signed DATE:10/04/19 TIME: 1320 PATIENT: MAC AGUSTIN UNIT #: [id number] ROOM/BED: 5526-1 : 47 AGE: 74 SEX: F ATTEND: Joel Myers MD ADM AUTHOR: Arian Anderson * ALL edits or amendments must be made on the electronic/computer document * Arian Anderson 10/04/19 1320: Subjective Chief Complaint: weak HPI: No new complaints. Eating some. Review of Systems Unable to obtain due to: Dementia Objective General VS/I O: Last Documented: Result Date Time Pulse Ox 97 10/03 1142 B/P 110/63 10/03 1142 B/P Mean 78.8 10/03 1142 O2 Delivery Room air 10/03 1142 Temp 36.4 10/03 1142 Pulse 55 10/03 1142 Resp 18 10/03 1142 O2 Flow Rate 4.796917 10/02 2014 24 hour I O ending at 0700: 10/03 0700 10/02 1900 Intake Total 30 75 Output Total Balance 30 75 Intake, Oral 30 Intake, Oral 0 75 Supplement Number 5 Incontinent Voids Patient Weight Weight (lb): 167 Weight (oz): 15.88 Weight (kg): 75.75 Medications: Active Meds + DC'd Last 24 Hrs Magnesium Sulfate/Dextrose 100 ML ONCE ONE IV (DC) Midodrine 5 MG 0900,1300,1700 PO Sodium Chloride 1,000 ML .[id number] IV Pantoprazole 40 MG BID@0600,1800 PO Megestrol Acetate 800 MG DAILY PO Zinc Oxide 1 APPLIC BID TOPICAL Lidocaine 1 EA Q24H TOPICAL Insulin Human Lispro 0 AC HS SUBQ Morphine Sulfate 2 MG Q4H PRN PRN IV (DC) Acetaminophen 650 MG Q4H PRN PRN PO Heparin Sodium 5,000 UNIT Q12HR SUBQ Physical Exam General appearance: awake, no acute distress HEENT: moist mucosal membranes Cardiovascular: normal S1/S2 Respiratory: clear to auscultation Abdomen: non-tender, normal bowel sounds, soft, no distention Extremities: edema Musculoskeletal: normal inspection Skin: dry Results Findings/Data: Laboratory Tests 10/04/19 0505: [Embedded Image Not Available] Laboratory Tests 10/03 10/03 10/03 10/02 10/02 1139 0721 [id number] Chemistry Sodium (134 - 147 mEq/L) 136 [...] % (Auto) (14.0 - 32.0 %) 29.3 Kershaw % (Auto) (4.8 - 9.0 %) 19.0 H Eos % (Auto) (0.3 - 3.7 %) 1.8 Baso % (Auto) (0.0 - 2.0 %) 0.4 Neut # (Auto) (2.0 - 7.6 x10 3/uL) 2.74 Lymph # (Auto) (1.0 - 3.8 x10 3/uL) 1.65 Kershaw # (Auto) (0.1 - 0.8 x10 3/uL) [...] labs reviewed, vital signs stable Diagnosis, Assessment Plan Problem List/A P: 1. Antibiotic-associated diarrhea Free Text A P: IMPRESSION: A 74-year-old female with a host of comorbidities, especially advanced dementia, presented with failure to thrive kind of situation, labs were significantly abnormal with electrolyte disbalance, acute renal failure, metabolic acidosis and underlying sepsis from urinary tract infection. UTI is being treated with IV antibiotic. She is responding. The CT finding of colonic wall thickening as well as gastric distention with gastric wall thickening is an incidental finding. PLAN: 1. Colonic wall thickening is not concerning. This diffuse colonic wall edema could be due to underlying sepsis and hypoalbuminemia. This does not warrant any further investigation at this time. It seems to be self-limiting. 2. Gastric distention, gastric wall thickening certainly needs further evaluation with direct visualization. Therefore, upper endoscopy should be considered when the patient is medically stable and has recovered well from her current acute illness. 10/04/19 - C diff ordered and pending collection. Diarrhea resolved. - Broaden stool studies. Pending collection. - PPI PO - Continue Megace - Supportive care - Outpatient EGD and colonoscopy given current COVID restrictions and no evidence of active bleeding - Consider NGT versus IR placed g-tube if PO intake does not improve and family is agreeable. - Discharge per primary SrColeman Julienne 11/07/19 0901: Attestations Physician Attestation Agree w/findings plan: Patient seen and examined. Agree with the findings and plan as documented by SHELL MOLD BONDING MACHINE OPERATOR. at 1321 RPT #:[id number] END OF REPORT [facility] 2019-10-04 13:20:00 [facility]) Gastroenterology Progress Note REPORT#:[id number] REPORT STATUS: Signed DATE:10/04/19 TIME: 1320 PATIENT: MAC AGUSTIN UNIT #: [id number] ROOM/BED: [place] [address] : 47 AGE: 74 SEX: F ATTEND: Joel Myers MD ADM AUTHOR: Arian Anderson * ALL edits or amendments must be made on the electronic/computer document * Arian Anderson 10/04/19 1320: Subjective Chief Complaint: weak HPI: No new complaints. Eating some. Review of Systems Unable to obtain due to: Dementia Objective General VS/I O: Last Documented: Result Date Time Pulse Ox 97 10/03 1142 B/P 110/63 10/03 1142 B/P Mean 78.8 10/03 1142 O2 Delivery Room air 10/03 1142 Temp 36.4 10/03 1142 Pulse 55 10/03 1142 Resp 18 10/03 1142 O2 Flow Rate 4.122040 10/02 2014 24 hour I O ending at 0700: 10/03 0700 10/02 1900 Intake Total 30 75 Output Total Balance 30 75 Intake, Oral 30 Intake, Oral 0 75 Supplement Number 5 Incontinent Voids Patient Weight Weight (lb): 167 Weight (oz): 15.88 Weight (kg): 75.75 Medications: Active Meds + DC'd Last 24 Hrs Magnesium Sulfate/Dextrose 100 ML ONCE ONE IV (DC) Midodrine 5 MG 0900,1300,1700 PO Sodium Chloride 1,000 ML .[id number] IV Pantoprazole 40 MG BID@0600,1800 PO Megestrol Acetate 800 MG DAILY PO Zinc Oxide 1 APPLIC BID TOPICAL Lidocaine 1 EA Q24H TOPICAL Insulin Human Lispro 0 AC HS SUBQ Morphine Sulfate 2 MG Q4H PRN PRN IV (DC) Acetaminophen 650 MG Q4H PRN PRN PO Heparin Sodium 5,000 UNIT Q12HR SUBQ Physical Exam General appearance: awake, no acute distress HEENT: moist mucosal membranes Cardiovascular: normal S1/S2 Respiratory: clear to auscultation Abdomen: non-tender, normal bowel sounds, soft, no distention Extremities: edema Musculoskeletal: normal inspection Skin: dry Results Findings/Data: Laboratory Tests 10/04/19 0505: [Embedded Image Not Available] Laboratory Tests 10/03 10/03 10/03 10/02 10/02 1139 [...] % (Auto) (14.0 - 32.0 %) 29.3 Kershaw % (Auto) (4.8 - 9.0 %) 19.0 H Eos % (Auto) (0.3 - 3.7 %) 1.8 Baso % (Auto) (0.0 - 2.0 %) 0.4 Neut # (Auto) (2.0 - 7.6 x10 3/uL) 2.74 Lymph # (Auto) (1.0 - 3.8 x10 3/uL) 1.65 Kershaw # (Auto) (0.1 - 0.8 x10 3/uL) [...] labs reviewed, vital signs stable Diagnosis, Assessment Plan Problem List/A P: 1. Antibiotic-associated diarrhea Free Text A P: IMPRESSION: A 74-year-old female with a host of comorbidities, especially advanced dementia, presented with failure to thrive kind of situation, labs were significantly abnormal with electrolyte disbalance, acute renal failure, metabolic acidosis and underlying sepsis from urinary tract infection. UTI is being treated with IV antibiotic. She is responding. The CT finding of colonic wall thickening as well as gastric distention with gastric wall thickening is an incidental finding. PLAN: 1. Colonic wall thickening is not concerning. This diffuse colonic wall edema could be due to underlying sepsis and hypoalbuminemia. This does not warrant any further investigation at this time. It seems to be self-limiting. 2. Gastric distention, gastric wall thickening certainly needs further evaluation with direct visualization. Therefore, upper endoscopy should be considered when the patient is medically stable and has recovered well from her current acute illness. 10/04/19 - C diff ordered and pending collection. Diarrhea resolved. - Broaden stool studies. Pending collection. - PPI PO - Continue Megace - Supportive care - Outpatient EGD and colonoscopy given current COVID restrictions and no evidence of active bleeding - Consider NGT versus IR placed g-tube if PO intake does not improve and family is agreeable. - Discharge per primary Coleman Sr V. 11/07/19 0901: Attestations Physician Attestation Agree w/findings plan: Patient seen and examined. Agree with the findings and plan as documented by SHELL MOLD BONDING MACHINE OPERATOR. at 1321 at 0914 RPT #:[id number] END OF REPORT [facility] 2019-10-04 08:17:00 [facility] ([facility] Hospitalist Progress Note REPORT#:[id number] REPORT STATUS: Signed DATE:10/04/19 TIME: 816 PATIENT: MAC AGUSTIN UNIT #: [id number] ROOM/BED: [place] [id number] : 47 AGE: 74 SEX: F ATTEND: Joel Myers MD ADM AUTHOR: Joel Myers MD * ALL edits or amendments must be made on the electronic/computer document * Subjective Chief Complaint: follow up for NATHEN/CKD, HTN. no change. denies pain. eating some Review of Systems Additional notes: 12 point ROS negative except for mentioned in HPI. Objective General VS/I O: Vital Signs: Date Time Temp Pulse Resp B/P B/P Pulse O2 O2 Flow FiO2 Mean Ox Delivery Rate 10/03 07 97.7 58 18 102/68 79.0 100 Room air 10/03 0401 97.7 55 17 101/68 79.0 100 10/029 97.5 58 18 114/76 88.3 100 10/02 2014 Nasal 4.028625 cannula 10/02 1912 97.3 57 18 117/71 86.5 100 10/02 1101 98.2 65 17 106/68 81.0 99 24 hour I O ending at 0700: 10/03 0700 10/02 1900 Intake Total 30 75 Output Total Balance 30 75 Intake, Oral 30 Intake, Oral 0 75 Supplement Number 5 Incontinent Voids Patient Weight Weight (lb): 167 Weight (oz): 15.88 Weight (kg): 75.75 Medications: Active Meds + DC'd Last 24 Hrs Midodrine 5 MG 0900,1300,1700 PO Sodium Chloride 1,000 ML .[id number] IV Magnesium Sulfate/Dextrose 100 ML ONCE ONE [...] Heparin Sodium 5,000 UNIT Q12HR SUBQ Physical Exam General appearance: confused, alert, awake Head/Eyes: atraumatic, normocephalic ENT: moist mucosal membranes Neck: non-tender, no JVD, no masses or swelling Cardiovascular: normal heart sounds, regular rate rhythm Respiratory: decreased breath sounds, rhonchi, symmetric expansion, no distress, no rales appreciated on anterior exam Abdomen: soft, no distention, no guarding, no rebound Genitourinary: no bladder distention Extremities: edema (bLE +1), no clubbing, no cyanosis Musculoskeletal: normal inspection Neuro/BACK SHOE WORKER: no motor deficits Skin: no rash Psychiatry: normal affect Results Findings/Data: Laboratory Tests 10/03 10/02 10/02 10/02 10/02 0721 [...] % (Auto) (14.0 - 32.0 %) 29.3 Kershaw % (Auto) (4.8 - 9.0 %) 19.0 H Eos % (Auto) (0.3 - 3.7 %) 1.8 Baso % (Auto) (0.0 - 2.0 %) 0.4 Neut # (Auto) (2.0 - 7.6 x10 3/uL) 2.74 Lymph # (Auto) (1.0 - 3.8 x10 3/uL) 1.65 Kershaw # (Auto) (0.1 - 0.8 x10 3/uL) [...] Diagnosis, Assessment Plan Free Text DxA P Notes Free text DxA P notes: Severe lactic acidosis Severe metabolic acidosis Acute renal failure Hypocalcemia Hypomagnesemia ?Septic shock vs lactic acidosis from metformin Dehydration Hypothermia DM HTN Dementia with behavior disturbance persistent hypoglycemia Plan: Ms. Agustin is a 74 yo female with non-specific symptoms of not feeling well, poor appetite that was found to have abnormal labs at [place], sent to ED for evaluation. In the [...] ischemic bowel. Will continue empiric Zosyn. - Zosyn - blood cultures pending - hold home meds - Accuchecks and SSI - replace electrolytes - heparin for DVT prophylaxsis 09/26 Improved lactic acidosis with dialysis. Given improvement, likely [...] life, not a good candidate for work up/treatment. BS well controlled with current insulin schedule Check labs in am 09/27 Lactate remains normal, continue to hold metformin Pt noted return of anion gap acidosis with ketonuria. Discussed with Dr. Aguilar , nephrology. Pt placed on DKA protocol to close anion gap, on D10 for glucose needs while on insulin drip. BNP elevated with clear lungs, no dependent edema, decreased O2 requirement. Give one dose of Lasix 40 mg IV, check CXR in the am, monitor for volume overload while getting DKA fluids. WBC decreased to 15, continue abx for now, d/c after 5 days Some blood noted in stool, CT with signs of chronic inflammation. Given her dementia, unsure that patient would tolerate bowel prep. GI consulted. Appreciate input on area in stomach with possible neoplasm. Check labs in am 09/28 Anion gap closed, off insulin drip Elevated lactate, monitor CXR shows severe vascular congestion and pleural fluid, likely related to fluids given for lactic acidosis and metabolic acidosis, pt not in respiratory distress - Lasix 60 mg IV q8 iniated by nephrology - D10 at 30 cc/hr to maintain blood sugar WBC decreased to 13, d/c abx after 5 days Colon with chronic inflammation, no work up per GI Will need EGD to evaluate abnormality in gastric wall once improved Check labs in am 09/29 Off insulin drip CXR reviewed Cont lasix WBC count came down to 10.5 On zosyn Transfer to the floor dw RN, SHELL MOLD BONDING MACHINE OPERATOR, consultants CXR and telemetry personally reviewed Further recs per clinical course 10/01/2019 - blood [...] antibiotics - continue Megace - on Heparin total time spent with evaluating patient/data as well as providing education/ counselling to patient was more than 35 minutes at 0753 RPT #:[id number] END OF REPORT [facility] 2019-10-04 06:42:00 [facility] ([facility]) Nephrology Progress Note REPORT#:[id number] REPORT STATUS: Signed DATE:10/04/19 TIME: 641 PATIENT: MAC AGUSTIN UNIT #: [id number] ROOM/BED: [place] [address] : 47 AGE: 74 SEX: F ATTEND: Joel Myres MD ADM AUTHOR: Rabia Aguilar MD * ALL edits or amendments must be made on the electronic/computer document * Subjective Chief Complaint: AMS/Lactic acidosis/NATHEN Unable to obtain: dementia Comments: Patient seen and evaluated, HPI no change from initial, having diarrhea per nurse Review of Systems Unable to obtain due to: Dementia Objective General VS/I O: Vital Signs: Date Time Temp Pulse Resp B/P B/P Pulse O2 O2 Flow FiO2 Mean Ox Delivery Rate 10/03 0401 36.5 55 17 101/68 79.0 100 10/02 2259 36.4 58 18 114/76 88.3 100 10/02 2014 Nasal 4.392562 cannula 10/02 191 36.3 57 18 117/71 86.5 100 10/02 1101 36.8 65 17 106/68 81.0 99 10/02 0735 Nasal 4.175303 cannula 24 hour I O ending at 0700: 10/03 0700 10/02 1900 Intake Total 30 75 Output Total Balance 30 75 Intake, Oral 30 Intake, Oral 0 75 Supplement Number 5 Incontinent Voids Medications Active Meds + DC'd Last 24 Hrs Midodrine 5 MG 0900,1300,1700 PO Sodium Chloride 1,000 ML .[id number] IV Magnesium Sulfate/Dextrose 100 ML ONCE ONE [...] Heparin Sodium 5,000 UNIT Q12HR SUBQ Physical Exam General appearance: alert, no acute distress Head/eyes: atraumatic, normocephalic ENT: normal nose Neck: supple/no meningismus Cardiovascular: normal heart sounds, no rub Respiratory: aerating well, symmetric expansion Abdomen: soft Genitourinary: no ballard Extremities: no edema Musculoskeletal: normal inspection Neuro/BACK SHOE WORKER: altered mental status Skin: dry Results Findings/Data: Laboratory Tests 10/02 10/02 10/02 10/02 10/02 191 [...] (14.0 - 32.0 %) 30.3 33.1 H Kershaw % (Auto) (4.8 - 9.0 %) 14.0 H 8.1 Eos % (Auto) (0.3 - 3.7 %) 2.5 1.7 Baso % (Auto) (0.0 - 2.0 %) 0.4 0.2 Neut # (Auto) (2.0 - 7.6 x10 3/uL) 2.73 3.33 Lymph # (Auto) (1.0 - 3.8 x10 3/uL) 1.58 1.95 Kershaw # (Auto) (0.1 - 0.8 x10 3/uL) [...] COMP STOOL Diagnosis, Assessment Plan Free Text A P: Patient seen and evaluated, discussed with care team, images and laboratories reviewed. History of dementia History of rheumatoid arthritis History of frequent falls History of frequent UTIs History of hypertension: Currently hypotensive Hypokalemia: We will supplement Severe hypomagnesemia we will supplement Hypocalcemia: We will supplement Hypoalbuminemia Severe lactic acidosis: Etiology, could be related to septic shock, however source is unclear, rule out ischemic bowel, Zosyn, will need to review her medications if patient has been on metformin, lactic acidosis due to metformin in the setting of acute renal failure is a possibility and will do hemodialysis in the setting. Patient has been taking Metformin 1000 BID, kenneth has lactic acidosis that is induced by Metformin, discussed with deysi and ICC/Primary team will proceed with HD 09/27/2019 mental status a lot better, hemodynamically more stable, pressors being weaned off, received 6 hours of hemodialysis yesterday, her last set of blood gas showed a pH of 7.40, PCO2 25, PO2 55, lactic acid 6.2 improving, sodium is 143 potassium 3.6 CO2 20 chloride 101 BUN 13 creatinine 1.1, hemoglobin this morning 9.7, white blood count 19.78 trending down, platelet 156 , her clinical picture is consistent with metformin induced lactic acidosis, will do another session of hemodialysis, 4 hours, potassium 3.5, no ultrafiltration, will give 20 mmol of potassium phosphate and expectation of hypophosphatemia during hemodialysis. katie and evaluated during HD, discussed with RN and HD nurse 09/28/2019 laboratories from this morning showed sodium 144, potassium 3.3 we will give KCl 20 mEq IV x1, chloride 104, bicarbonate 16, creatinine 1.2, lactic acid 1.2, hemoglobin 8.4, white blood count 15.2, blood culture still negative, anion gap today is 24 with a normal lactic acid etiology unclear will repeat BMP , repeat lactic acid and order serum acetone and do urinalysis to check for urine ketones, also will do a blood gas. Ketones came back as large, This is kenneth starvation ketoacidosis that has been exacerbated by gluconeogenesis inhibition by Metformin and has been reported in the literature, will start Glucose and insulin drip 09/29/2019 laboratories from this morning showed sodium 142, [...] afternoon, her creatinine is 2.2, not sure what her baseline creatinine, her creatinine is relatively stable since yesterday, will monitor closely, hemoglobin is 7.8, white blood count 13.57 improving. 09/30/2019 laboratories from this morning showed sodium 138, potassium 3.5, CO2 34, chloride 100, BUN and creatinine 22 and 2.4 up some likely related to diuretics, albumin 1.8, hemoglobin 7.8, platelet 60, white blood count 10.51 continues to trend down, lactic acid 1.2 within normal limit, urine output about 1900 cc with Lasix. Chest x-ray still pending. [...] volume contraction. Will check post void resdiual 10/03/2019 laboratories from this morning showed sodium 137, potassium 3.6, CO2 28, BUN and creatinine 30 and 3.0 continue to rise, blood pressures on the low side will try midodrine 5 mg p.o. 3 times daily, hypomagnesemia 1.7 we will give magnesium sulfate 1 g IV x1, hemoglobin 8.1, white blood count 5.21, will check the results of postvoid residual. BNP 109 will increase IVF to 75 cc per h 10/04/19 Hgb 8.4, WBC 109, Na 136, K 4.1, HCO3 23, BUN 31, Creat 3.0 stable since yesterday, continue IVF at 1053 RPT #:[id number] END OF REPORT [facility] 2019-10-03 11:39:00 [facility] Gastroenterology Progress Note REPORT#:[id number] REPORT STATUS: Signed DATE:10/03/19 TIME: 1139 PATIENT: MAC AGUSTIN UNIT #: [id number] ROOM/BED: [place] [address] : 47 AGE: 74 SEX: F ATTEND: Joel Myers MD ADM AUTHOR: Arian Anderson * ALL edits or amendments must be made on the electronic/computer document * Subjective Chief Complaint: weak HPI: Not eating much. No evidence of GI bleeding. Review of Systems Unable to obtain due to: dementia Objective General VS/I O: Last Documented: Result Date Time Pulse Ox 99 10/02 1101 B/P 106/68 10/02 1101 B/P Mean 81.0 10/02 1101 Temp 36.8 10/02 1101 Pulse 65 10/02 1101 Resp 17 10/02 1101 O2 Delivery Nasal cannula 10/02 0735 O2 Flow Rate 4.815861 10/02 0735 24 hour I O ending at 0700: 10/02 0700 10/01 1900 Intake Total 120 270 Output Total Balance 120 270 Intake, Oral 60 Intake, Oral 60 270 Supplement Number 0 Bowel Movements Number 3 Incontinent Voids Patient Weight Weight (lb): 167 Weight (oz): 15.88 Weight (kg): 75.75 Medications: Active Meds + DC'd Last 24 Hrs Midodrine 5 MG 0900,1300,1700 PO Sodium Chloride [...] Heparin Sodium 5,000 UNIT Q12HR SUBQ Physical Exam General appearance: no acute distress HEENT: moist mucosal membranes Cardiovascular: normal S1/S2 Respiratory: clear to auscultation Abdomen: non-tender, normal bowel sounds, soft, no distention Extremities: edema Musculoskeletal: normal inspection Skin: dry Results Findings/Data: Laboratory Tests 10/03/19 0520: [Embedded Image Not Available] Laboratory Tests 10/02 10/02 10/02 10/01 10/01 0826 [...] % (Auto) (14.0 - 32.0 %) 30.3 Kershaw % (Auto) (4.8 - 9.0 %) 14.0 H Eos % (Auto) (0.3 - 3.7 %) 2.5 Baso % (Auto) (0.0 - 2.0 %) 0.4 Neut # (Auto) (2.0 - 7.6 x10 3/uL) 2.73 Lymph # (Auto) (1.0 - 3.8 x10 3/uL) 1.58 Kershaw # (Auto) (0.1 - 0.8 x10 3/uL) [...] labs reviewed, vital signs stable Diagnosis, Assessment Plan Problem List/A P: 1. Antibiotic-associated diarrhea Free Text A P: IMPRESSION: A 74-year-old female with a host of comorbidities, especially advanced dementia, presented with failure to thrive kind of situation, labs were significantly abnormal with electrolyte disbalance, acute renal failure, metabolic acidosis and underlying sepsis from urinary tract infection. UTI is being treated with IV antibiotic. She is responding. The CT finding of colonic wall thickening as well as gastric distention with gastric wall thickening is an incidental finding. PLAN: 1. Colonic wall thickening is not concerning. This diffuse colonic wall edema could be due to underlying sepsis and hypoalbuminemia. This does not warrant any further investigation at this time. It seems to be self-limiting. 2. Gastric distention, gastric wall thickening certainly needs further evaluation with direct visualization. Therefore, upper endoscopy should be considered when the patient is medically stable and has recovered well from her current acute illness. 10/03/19 - C diff ordered and pending collection. Diarrhea resolved. - Broaden stool studies. Pending collection. - PPI PO - Continue Megace - Supportive care - Outpatient EGD and colonoscopy given current COVID restrictions and no evidence of active bleeding - Consider NGT versus IR placed g-tube if PO intake does not improve and family is agreeable. at 1141 RPT #:[id number] END OF REPORT [facility] 2019-10-03 11:39:00 [facility] ([facility]) Gastroenterology Progress Note REPORT#:[id number] REPORT STATUS: Signed DATE:10/03/19 TIME: 1139 PATIENT: MAC AGUSTIN UNIT #: [id number] ROOM/BED: [place] [address] : 47 AGE: 74 SEX: F ATTEND: Joel Myers MD ADM AUTHOR: Arian Anderson * ALL edits or amendments must be made on the electronic/computer document * Arian Anderson 10/03/19 1139: Subjective Chief Complaint: weak HPI: Not eating much. No evidence of GI bleeding. Review of Systems Unable to obtain due to: dementia Objective General VS/I O: Last Documented: Result Date Time Pulse Ox 99 10/02 1101 B/P 106/68 10/02 1101 B/P Mean 81.0 10/02 1101 Temp 36.8 10/02 1101 Pulse 65 10/02 1101 Resp 17 10/02 1101 O2 Delivery Nasal cannula 10/02 0735 O2 Flow Rate 4.932811 10/02 0735 24 hour I O ending at 0700: 10/02 0700 10/01 1900 Intake Total 120 270 Output Total Balance 120 270 Intake, Oral 60 Intake, Oral 60 270 Supplement Number 0 Bowel Movements Number 3 Incontinent Voids Patient Weight Weight (lb): 167 Weight (oz): 15.88 Weight (kg): 75.75 Medications: Active Meds + DC'd Last 24 Hrs Midodrine 5 MG 0900,1300,1700 PO Sodium Chloride [...] Heparin Sodium 5,000 UNIT Q12HR SUBQ Physical Exam General appearance: no acute distress HEENT: moist mucosal membranes Cardiovascular: normal S1/S2 Respiratory: clear to auscultation Abdomen: non-tender, normal bowel sounds, soft, no distention Extremities: edema Musculoskeletal: normal inspection Skin: dry Results Findings/Data: Laboratory Tests 10/03/19 0520: [Embedded Image Not Available] Laboratory Tests 10/02 10/02 10/02 10/01 10/01 0826 [...] % (Auto) (14.0 - 32.0 %) 30.3 Kershaw % (Auto) (4.8 - 9.0 %) 14.0 H Eos % (Auto) (0.3 - 3.7 %) 2.5 Baso % (Auto) (0.0 - 2.0 %) 0.4 Neut # (Auto) (2.0 - 7.6 x10 3/uL) 2.73 Lymph # (Auto) (1.0 - 3.8 x10 3/uL) 1.58 Kershaw # (Auto) (0.1 - 0.8 x10 3/uL) [...] labs reviewed, vital signs stable Diagnosis, Assessment Plan Problem List/A P: 1. Antibiotic-associated diarrhea Free Text A P: IMPRESSION: A 74-year-old female with a host of comorbidities, especially advanced dementia, presented with failure to thrive kind of situation, labs were significantly abnormal with electrolyte disbalance, acute renal failure, metabolic acidosis and underlying sepsis from urinary tract infection. UTI is being treated with IV antibiotic. She is responding. The CT finding of colonic wall thickening as well as gastric distention with gastric wall thickening is an incidental finding. PLAN: 1. Colonic wall thickening is not concerning. This diffuse colonic wall edema could be due to underlying sepsis and hypoalbuminemia. This does not warrant any further investigation at this time. It seems to be self-limiting. 2. Gastric distention, gastric wall thickening certainly needs further evaluation with direct visualization. Therefore, upper endoscopy should be considered when the patient is medically stable and has recovered well from her current acute illness. 10/03/19 - C diff ordered and pending collection. Diarrhea resolved. - Broaden stool studies. Pending collection. - PPI PO - Continue Megace - Supportive care - Outpatient EGD and colonoscopy given current COVID restrictions and no evidence of active bleeding - Consider NGT versus IR placed g-tube if PO intake does not improve and family is agreeable. OrinFlormelchor Robins 11/07/19 0901: Attestations Physician Attestation Agree w/findings plan: Patient seen and examined. Agree with the findings and plan as documented by SHELL MOLD BONDING MACHINE OPERATOR. at 1141 RPT #:[id number] END OF REPORT [facility] 2019-10-03 11:39:00 [facility] Gastroenterology Progress Note REPORT#:[id number] REPORT STATUS: Signed DATE:10/03/19 TIME: 1139 PATIENT: MAC AGUSTIN UNIT #: [id number] ROOM/BED: [place] [address] : 47 AGE: 74 SEX: F ATTEND: Joel Myers MD ADM AUTHOR: Arian Anderson * ALL edits or amendments must be made on the electronic/computer document * Arian Anderson 10/03/19 1139: Subjective Chief Complaint: weak HPI: Not eating much. No evidence of GI bleeding. Review of Systems Unable to obtain due to: dementia Objective General VS/I O: Last Documented: Result Date Time Pulse Ox 99 10/02 1101 B/P 106/68 10/02 1101 B/P Mean 81.0 10/02 1101 Temp 36.8 10/02 1101 Pulse 65 10/02 1101 Resp 17 10/02 1101 O2 Delivery Nasal cannula 10/02 0735 O2 Flow Rate 4.231945 10/02 0735 24 hour I O ending at 0700: 10/02 0700 10/01 1900 Intake Total 120 270 Output Total Balance 120 270 Intake, Oral 60 Intake, Oral 60 270 Supplement Number 0 Bowel Movements Number 3 Incontinent Voids Patient Weight Weight (lb): 167 Weight (oz): 15.88 Weight (kg): 75.75 Medications: Active Meds + DC'd Last 24 Hrs Midodrine 5 MG 0900,1300,1700 PO Sodium Chloride [...] Heparin Sodium 5,000 UNIT Q12HR SUBQ Physical Exam General appearance: no acute distress HEENT: moist mucosal membranes Cardiovascular: normal S1/S2 Respiratory: clear to auscultation Abdomen: non-tender, normal bowel sounds, soft, no distention Extremities: edema Musculoskeletal: normal inspection Skin: dry Results Findings/Data: Laboratory Tests 10/03/19 0520: [Embedded Image Not Available] Laboratory Tests 10/02 10/02 10/02 10/01 10/01 0826 [...] % (Auto) (14.0 - 32.0 %) 30.3 Kershaw % (Auto) (4.8 - 9.0 %) 14.0 H Eos % (Auto) (0.3 - 3.7 %) 2.5 Baso % (Auto) (0.0 - 2.0 %) 0.4 Neut # (Auto) (2.0 - 7.6 x10 3/uL) 2.73 Lymph # (Auto) (1.0 - 3.8 x10 3/uL) 1.58 Kershaw # (Auto) (0.1 - 0.8 x10 3/uL) [...] labs reviewed, vital signs stable Diagnosis, Assessment Plan Problem List/A P: 1. Antibiotic-associated diarrhea Free Text A P: IMPRESSION: A 74-year-old female with a host of comorbidities, especially advanced dementia, presented with failure to thrive kind of situation, labs were significantly abnormal with electrolyte disbalance, acute renal failure, metabolic acidosis and underlying sepsis from urinary tract infection. UTI is being treated with IV antibiotic. She is responding. The CT finding of colonic wall thickening as well as gastric distention with gastric wall thickening is an incidental finding. PLAN: 1. Colonic wall thickening is not concerning. This diffuse colonic wall edema could be due to underlying sepsis and hypoalbuminemia. This does not warrant any further investigation at this time. It seems to be self-limiting. 2. Gastric distention, gastric wall thickening certainly needs further evaluation with direct visualization. Therefore, upper endoscopy should be considered when the patient is medically stable and has recovered well from her current acute illness. 10/03/19 - C diff ordered and pending collection. Diarrhea resolved. - Broaden stool studies. Pending collection. - PPI PO - Continue Megace - Supportive care - Outpatient EGD and colonoscopy given current COVID restrictions and no evidence of active bleeding - Consider NGT versus IR placed g-tube if PO intake does not improve and family is agreeable. Coleman Sr V. 11/07/19 0901: Attestations Physician Attestation Agree w/findings plan: Patient seen and examined. Agree with the findings and plan as documented by SHELL MOLD BONDING MACHINE OPERATOR. at 1141 at 0914 RPT #:[id number] END OF REPORT [facility] 2019-10-03 11:36:00 [facility]) Rehab Progress Note REPORT#:[id number] REPORT STATUS: Signed DATE:10/03/19 TIME: 1136 PATIENT: MAC AGUSTIN UNIT #: [id number] ROOM/BED: [place] [id number] : 47 AGE: 74 SEX: F ATTEND: Joel Myers MD ADM AUTHOR: Lucy Ayon PA-C * ALL edits or amendments must be made on the electronic/computer document * Subjective Chief complaint: Pt seen in bed. No complaints. States tired this a.m. + dmentia. Poor historian. Objective General VS: Vital Signs: Date Time Temp Pulse Resp B/P B/P Pulse O2 O2 Flow FiO2 Mean Ox Delivery Rate 10/02 1101 98.2 65 17 106/68 81.0 99 10/02 0735 Nasal 4.876373 cannula 10/02 0442 98.2 66 17 93/59 70.5 99 10/01 2310 98.1 64 16 93/59 0.0 99 10/01 1951 97.3 74 17 105/65 78.1 99 10/01 1603 98.4 68 17 100/54 69.3 99 Patient Weight Weight (lb): 167 Weight (oz): 15.88 Weight (kg): 75.75 Medications: Active Meds + DC'd Last 24 Hrs Midodrine 5 MG 0900,1300,1700 PO Sodium Chloride [...] Heparin Sodium 5,000 UNIT Q12HR SUBQ Physical Exam General appearance: alert, awake Psych: normal affect HEENT: anicteric, mucosal membranes moist, sclera clear Neck: supple, no JVD Cardiovascular: regular rate rhythm, S1/S2 Respiratory: aerating well, clear bilaterally Abdomen: bowel sounds present, non-distended, soft, soft, non-tender Skin: dry, intact Musculoskeletal - general: Musculoskeletal - general: joints normal, range of motion normal, no swelling Neuro/BACK SHOE WORKER: altered mental status, alert, no motor deficits, no sensory deficits Functional Progress Functional progress: Lower Extremity Dressing: Y Precautions: Fall [...] Time: 1215 Stop Time: 1225 Treatment time ( minutes): 10 Completed by: Liv Juan - GROOMING/HYGIENE: ----- Safety awareness demonstrated ----- Lower Extremity Dressing: Maximal Assistance Increased time required: Y Requires set up of supplies: Y Requires physical assist to dress Lower Extremity: Don Clothing and Adjust Doff Clothing and Adjust Due to: Decrease attention/task Decreased Range of Motion Comments: PT ABLE TO DOFF B SOCKS ONCE ASSISTED W/LIFTING FOOT TO KNEE, ASST OVER TOE ----- . FUNCTIONAL MOBILITY FUNCTIONAL MOBILITY Items determined [...] OUTSIDE the Functional Limits are as follows: Results Findings/Data: Laboratory Tests: 10/02 10/02 10/02 10/01 10/01 0826 0512 [id number] Chemistry Sodium (134 - 147 mEq/L) 137 [...] Peptide (0 - 100 PG/ML) 109.1 H Hematology WBC (4.5 - 11.0 x10 [...] % (Auto) (14.0 - 32.0 %) 30.3 Kershaw % (Auto) (4.8 - 9.0 %) 14.0 H Eos % (Auto) (0.3 - 3.7 %) 2.5 Baso % (Auto) (0.0 - 2.0 %) 0.4 Neut # (Auto) (2.0 - 7.6 x10 3/uL) 2.73 Lymph # (Auto) (1.0 - 3.8 x10 3/uL) 1.58 Kershaw # (Auto) (0.1 - 0.8 x10 3/uL) 0.73 Eos # (Auto) (0.0 - 0.2 x10 3/uL) 0.13 Baso # (Auto) (0.0 - 0.2 x10 3/uL) 0.02 Abs Immat Gran (auto) (0.00 - 0.03 0.02 x10 3/uL) Add Manual Diff NO Immature Gran % (0.0 - 2.0 %) 0.4 Nucleated RBC % (0 - 0 %) 0.0 Nucleated RBCs # (Man) (0.0 - 0.1 0.00 x10 3/uL) Diagnosis, Assessment Plan Problem List/A P: 1. Acute renal failure 2. Physical deconditioning 3. Hypomagnesemia 4. Lactic acidosis 5. DKA (diabetic ketoacidoses) 6. Metabolic acidosis 7. Gastric distention Free Text A P: 74 years old female with past medical history significant for Alzheimer's dementia, behavioral disturbance, hypertension, type 2 diabetes mellitus, migraine headaches, anxiety disorder, bowel and bladder incontinence, rheumatoid arthritis, frequent UTI. She was admitted secondary to severe lactic acidosis, metabolic acidosis with anion gap secondary to metformin and dehydration. Started on hemodialysis secondary to acute renal failure and lactic acidosis with multiple electrolyte abnormalities including hypokalemia, hypo-[place] anemia, hypocalcemia, hypoalbuminemia. Patient then developed acute pulmonary vascular congestion is being diuresed. Plan: Physical therapy, Occupational Therapy and speech therapy have been consulted. Due to patient being an unreliable historian and moderate dementia she would benefit from returning [facility] following her acute care stay. I discussed with the patient's [id number] who is on the chart as 1 of the contacts and she states their wish is for her to return to [facility] once medically cleared. 10/01: Encourage particpation with therpay.C. Diff not collected. Pt hgb stable. SNF once ready to be discharged. 10/02: Pt looks sleepy this a.m. Cr climbing. Minimal breakfast eaten this a.m. Nephrology on board monitoring. Plans to get MAg and Midodrine started. Encourage particpation with therapy. MAX A with bed mobility. Transfers not attempted. Rehab attestation: Face to face exam completed. Treatment plan discussed with patient. at 1142 [facility] #:[id number] END OF REPORT [facility] 2019-10-03 08:43:00 [facility] ([facility]) Hospitalist Progress Note REPORT#:[id number] REPORT STATUS: Signed DATE:10/03/19 TIME: 0843 PATIENT: MAC AGUSTIN UNIT #: [id number] ROOM/BED: [place] [address] : 47 AGE: 74 SEX: F ATTEND: Joel Myers MD ADM AUTHOR: Joel Myers MD * ALL edits or amendments must be made on the electronic/computer document * Subjective Chief Complaint: follow up for NATHEN/CKD, HTN. no change. denies pain. Review of Systems Additional notes: 12 point ROS negative except for mentioned in HPI. Objective General VS/I O: Vital Signs: Date Time Temp Pulse Resp B/P B/P Pulse O2 O2 Flow FiO2 Mean Ox Delivery Rate 10/02 0735 Nasal 4.451166 cannula 10/02 0442 98.2 66 17 93/59 [...] 3 Incontinent Voids Patient Weight Weight (lb): 167 Weight (oz): 15.88 Weight (kg): 75.75 Medications: Active Meds + DC'd Last 24 Hrs Midodrine 5 MG 0900,1300,1700 PO Magnesium Sulfate/Dextrose 100 [...] Heparin Sodium 5,000 UNIT Q12HR SUBQ Physical Exam General appearance: confused (intermittent), alert, awake Head/Eyes: atraumatic, normocephalic ENT: moist mucosal membranes Neck: non-tender, no JVD, no masses or swelling Cardiovascular: normal heart sounds, regular rate rhythm Respiratory: decreased breath sounds, rhonchi, symmetric expansion, no distress, no rales appreciated on anterior exam Abdomen: soft, no distention, no guarding, no rebound Genitourinary: no bladder distention Extremities: edema (bLE +1), no clubbing, no cyanosis Musculoskeletal: normal inspection Neuro/BACK SHOE WORKER: no motor deficits Skin: no rash Psychiatry: normal affect Results Findings/Data: Laboratory Tests 10/02 10/01 10/01 10/01 0520 1949 [...] % (Auto) (14.0 - 32.0 %) 30.3 Kershaw % (Auto) (4.8 - 9.0 %) 14.0 H Eos % (Auto) (0.3 - 3.7 %) 2.5 Baso % (Auto) (0.0 - 2.0 %) 0.4 Neut # (Auto) (2.0 - 7.6 x10 3/uL) 2.73 Lymph # (Auto) (1.0 - 3.8 x10 3/uL) 1.58 Kershaw # (Auto) (0.1 - 0.8 x10 3/uL) [...] Diagnosis, Assessment Plan Free Text DxA P Notes Free text DxA P notes: Severe lactic acidosis Severe metabolic acidosis Acute renal failure Hypocalcemia Hypomagnesemia ?Septic shock vs lactic acidosis from metformin Dehydration Hypothermia DM HTN Dementia with behavior disturbance persistent hypoglycemia Plan: Ms. Agustin is a 74 yo female with non-specific symptoms of not feeling well, poor appetite that was found to have abnormal labs at [place], sent to ED for evaluation. In the [...] ischemic bowel. Will continue empiric Zosyn. - Zosyn - blood cultures pending - hold home meds - Accuchecks and SSI - replace electrolytes - heparin for DVT prophylaxsis 09/26 Improved lactic acidosis with dialysis. Given improvement, likely [...] life, not a good candidate for work up/treatment. BS well controlled with current insulin schedule Check labs in am 09/27 Lactate remains normal, continue to hold metformin Pt noted return of anion gap acidosis with ketonuria. Discussed with Dr. Aguilar , nephrology. Pt placed on DKA protocol to close anion gap, on D10 for glucose needs while on insulin drip. BNP elevated with clear lungs, no dependent edema, decreased O2 requirement. Give one dose of Lasix 40 mg IV, check CXR in the am, monitor for volume overload while getting DKA fluids. WBC decreased to 15, continue abx for now, d/c after 5 days Some blood noted in stool, CT with signs of chronic inflammation. Given her dementia, unsure that patient would tolerate bowel prep. GI consulted. Appreciate input on area in stomach with possible neoplasm. Check labs in am 09/28 Anion gap closed, off insulin drip Elevated lactate, monitor CXR shows severe vascular congestion and pleural fluid, likely related to fluids given for lactic acidosis and metabolic acidosis, pt not in respiratory distress - Lasix 60 mg IV q8 iniated by nephrology - D10 at 30 cc/hr to maintain blood sugar WBC decreased to 13, d/c abx after 5 days Colon with chronic inflammation, no work up per GI Will need EGD to evaluate abnormality in gastric wall once improved Check labs in am 09/29 Off insulin drip CXR reviewed Cont lasix WBC count came down to 10.5 On zosyn Transfer to the floor dw RN, SHELL MOLD BONDING MACHINE OPERATOR, consultants CXR and telemetry personally reviewed Further recs per clinical course 10/01/2019 - blood [...] function more stable - Heparin for VTE total time spent with evaluating patient/data as well as providing education/ counselling to patient was more than 35 minutes at 0846 RPT #:[id number] END OF REPORT [facility] 2019-10-03 07:25:00 [facility] ([facility]) Nephrology Progress Note REPORT#:[id number] REPORT STATUS: Signed DATE:10/03/19 TIME: 724 PATIENT: MAC AGUSTIN UNIT #: [id number] ROOM/BED: [place] [address] : 47 AGE: 74 SEX: F ATTEND: Joel Myers MD ADM AUTHOR: Rabia Aguilar MD * ALL edits or amendments must be made on the electronic/computer document * Subjective Chief Complaint: AMS/Lactic acidosis/NATHEN Unable to obtain: patient condition Comments: Patient seen and evaluated, HPI no change from initial, Alert, poor intake per nurse Review of Systems Unable to obtain due to: Dementia Objective General VS/I O: Vital Signs: Date Time Temp Pulse Resp B/P B/P Pulse O2 O2 Flow FiO2 Mean Ox Delivery Rate 10/02 0442 36.8 66 17 93/59 70.5 99 10/01 2310 36.7 64 16 93/59 0.0 99 10/01 1951 36.3 74 17 105/65 78.1 99 10/01 1603 36.9 68 17 100/54 69.3 99 10/01 1123 36.6 68 17 101/58 72.4 95 Nasal cannula 10/01 0840 Nasal 4.963849 cannula 10/01 0745 36.4 79 17 111/68 82.6 97 24 hour I O ending at 0700: 10/02 0700 10/01 1900 Intake Total 120 270 Output Total Balance 120 270 Intake, Oral 60 Intake, Oral 60 270 Supplement Number 0 Bowel Movements Number 3 Incontinent Voids Medications Active Meds + DC'd Last 24 Hrs Potassium Chloride 50 ML Q1HR IV (DC) [...] Heparin Sodium 5,000 UNIT Q12HR SUBQ Physical Exam General appearance: alert, no acute distress Head/eyes: atraumatic, normocephalic ENT: normal nose Neck: supple/no meningismus Cardiovascular: normal heart sounds, no rub Respiratory: aerating well, symmetric expansion Abdomen: soft Genitourinary: no ballard Extremities: no edema Musculoskeletal: normal inspection Neuro/BACK SHOE WORKER: altered mental status Skin: dry Results Findings/Data: Laboratory Tests 10/02 10/02 10/02 10/01 10/01 0826 0524 [id number] Chemistry Sodium (134 - 147 mEq/L) 137 [...] 32.0 %) 30.3 33.1 H 10.0 L Kershaw % (Auto) (4.8 - 9.0 %) 14.0 H 8.1 5.7 Eos % (Auto) (0.3 - 3.7 %) 2.5 1.7 0.7 Baso % (Auto) (0.0 - 2.0 %) 0.4 0.2 0.2 Neut # (Auto) (2.0 - 7.6 x10 3/uL) 2.73 3.33 8.01 H Lymph # (Auto) (1.0 - 3.8 x10 3/uL) 1.58 1.95 0.97 L Kershaw # (Auto) (0.1 - 0.8 x10 3/uL) [...] INR (0.8 - 1.2) 1.3 H PTT ([place]) (25.0 - 39.5 Seconds) 28.5 PT Patient/Control [...] - 32.0 %) 33.1 H 10.0 L Kershaw % (Auto) (4.8 - 9.0 %) 8.1 5.7 Eos % (Auto) (0.3 - 3.7 %) 1.7 0.7 Baso % (Auto) (0.0 - 2.0 %) 0.2 0.2 Neut # (Auto) (2.0 - 7.6 x10 3/uL) 3.33 8.01 H Lymph # (Auto) (1.0 - 3.8 x10 3/uL) 1.95 0.97 L Kershaw # (Auto) (0.1 - 0.8 x10 3/uL) [...] 80 151 H 111 H Diagnosis, Assessment Plan Free Text A P: Patient seen and evaluated, discussed with care team, images and laboratories reviewed. History of dementia History of rheumatoid arthritis History of frequent falls History of frequent UTIs History of hypertension: Currently hypotensive Hypokalemia: We will supplement Severe hypomagnesemia we will supplement Hypocalcemia: We will supplement Hypoalbuminemia Severe lactic acidosis: Etiology, could be related to septic shock, however source is unclear, rule out ischemic bowel, Fito, will need to review her medications if patient has been on metformin, lactic acidosis due to metformin in the setting of acute renal failure is a possibility and will do hemodialysis in the setting. Patient has been taking Metformin 1000 BID, kenneth has lactic acidosis that is induced by Metformin, discussed with deysi and ICC/Primary team will proceed with HD 09/27/2019 mental status a lot better, hemodynamically more stable, pressors being weaned off, received 6 hours of hemodialysis yesterday, her last set of blood gas showed a pH of 7.40, PCO2 25, PO2 55, lactic acid 6.2 improving, sodium is 143 potassium 3.6 CO2 20 chloride 101 BUN 13 creatinine 1.1, hemoglobin this morning 9.7, white blood count 19.78 trending down, platelet 156 , her clinical picture is consistent with metformin induced lactic acidosis, will do another session of hemodialysis, 4 hours, potassium 3.5, no ultrafiltration, will give 20 mmol of potassium phosphate and expectation of hypophosphatemia during hemodialysis. katie and evaluated during HD, discussed with RN and HD nurse 09/28/2019 laboratories from this morning showed sodium 144, potassium 3.3 we will give KCl 20 mEq IV x1, chloride 104, bicarbonate 16, creatinine 1.2, lactic acid 1.2, hemoglobin 8.4, white blood count 15.2, blood culture still negative, anion gap today is 24 with a normal lactic acid etiology unclear will repeat BMP , repeat lactic acid and order serum acetone and do urinalysis to check for urine ketones, also will do a blood gas. Ketones came back as large, This is kenneth starvation ketoacidosis that has been exacerbated by gluconeogenesis inhibition by Metformin and has been reported in the literature, will start Glucose and insulin drip 09/29/2019 laboratories from this morning showed sodium 142, [...] afternoon, her creatinine is 2.2, not sure what her baseline creatinine, her creatinine is relatively stable since yesterday, will monitor closely, hemoglobin is 7.8, white blood count 13.57 improving. 09/30/2019 laboratories from this morning showed sodium 138, potassium 3.5, CO2 34, chloride 100, BUN and creatinine 22 and 2.4 up some likely related to diuretics, albumin 1.8, hemoglobin 7.8, platelet 60, white blood count 10.51 continues to trend down, lactic acid 1.2 within normal limit, urine output about 1900 cc with Lasix. Chest x-ray still pending. [...] volume contraction. Will check post void resdiual 10/03/2019 laboratories from this morning showed sodium 137, potassium 3.6, CO2 28, BUN and creatinine 30 and 3.0 continue to rise, blood pressures on the low side will try midodrine 5 mg p.o. 3 times daily, hypomagnesemia 1.7 we will give magnesium sulfate 1 g IV x1, hemoglobin 8.1, white blood count 5.21, will check the results of postvoid residual. BNP 109 will increase IVF to 75 cc per h at 1155 RPT #:[id number] END OF REPORT [facility] 2019-10-02 13:38:00 [facility] Gastroenterology Progress Note REPORT#:[id number] REPORT STATUS: Signed DATE:10/02/19 TIME: 1338 PATIENT: MAC AGUSTIN UNIT #: [id number] ROOM/BED: [place] [address] : 47 AGE: 74 SEX: F ATTEND: Joel Myers MD ADM AUTHOR: Arian Anderson * ALL edits or amendments must be made on the electronic/computer document * Subjective Chief Complaint: weak HPI: No overt GI bleeding. Tolerating some diet but with poor appetite. Review of Systems Unable to obtain due to: AMS Objective General VS/I O: Last Documented: Result Date Time Pulse Ox 95 10/01 1123 B/P 101/58 10/01 1123 B/P Mean 72.4 10/01 1123 O2 Delivery Nasal cannula 10/01 112 Temp 36.6 10/01 1123 Pulse 68 10/01 1123 Resp 17 10/01 1123 O2 Flow Rate 2.872171 09/30 1930 24 hour I O ending at 0700: 10/01 0700 09/30 1900 Intake Total 1710.00 20 Output Total Balance 1710.00 20 Intake, IV 720.00 Intake, Oral 760 Intake, Oral 230 20 Supplement Number 1 Bowel Movements Number 3 Incontinent Voids Patient 75.75 kg Weight Weight Bed scale Measurement Method Patient Weight Weight (lb): 167 Weight (oz): 15.88 Weight (kg): 75.75 Medications: Active Meds + DC'd Last 24 Hrs Potassium Chloride 50 ML Q1HR IV (DC) [...] Heparin Sodium 5,000 UNIT Q12HR SUBQ Physical Exam General appearance: altered mental status, no acute distress HEENT: moist mucosal membranes Cardiovascular: normal S1/S2 Respiratory: clear to auscultation Abdomen: non-tender, normal bowel sounds, soft, no distention Extremities: edema Musculoskeletal: normal inspection Skin: dry Results Findings/Data: Laboratory Tests 10/02/1918: [Embedded Image Not Available] Laboratory Tests 10/01 10/01 10/01 09/30 09/30 1120 [...] (Auto) (14.0 - 32.0 %) 33.1 H Kershaw % (Auto) (4.8 - 9.0 %) 8.1 Eos % (Auto) (0.3 - 3.7 %) 1.7 Baso % (Auto) (0.0 - 2.0 %) 0.2 Neut # (Auto) (2.0 - 7.6 x10 3/uL) 3.33 Lymph # (Auto) (1.0 - 3.8 x10 3/uL) 1.95 Kershaw # (Auto) (0.1 - 0.8 x10 3/uL) [...] 5.0 Results: vital signs stable Diagnosis, Assessment Plan Problem List/A P: 1. Antibiotic-associated diarrhea Free Text A P: IMPRESSION: A 74-year-old female with a host of comorbidities, especially advanced dementia, presented with failure to thrive kind of situation, labs were significantly abnormal with electrolyte disbalance, acute renal failure, metabolic acidosis and underlying sepsis from urinary tract infection. UTI is being treated with IV antibiotic. She is responding. The CT finding of colonic wall thickening as well as gastric distention with gastric wall thickening is an incidental finding. PLAN: 1. Colonic wall thickening is not concerning. This diffuse colonic wall edema could be due to underlying sepsis and hypoalbuminemia. This does not warrant any further investigation at this time. It seems to be self-limiting. 2. Gastric distention, gastric wall thickening certainly needs further evaluation with direct visualization. Therefore, upper endoscopy should be considered when the patient is medically stable and has recovered well from her current acute illness. 10/01/19 - C diff ordered and pending collection. Diarrhea resolved. - Broaden stool studies. Pending collection. - PPI PO - Consider Megace if PO intake does not improve - Supportive care - Outpatient EGD and colonoscopy given current COVID restrictions and no evidence of active bleeding at 1409 RPT #:[id number] END OF REPORT [facility] 2019-10-02 13:38:00 [facility]) Gastroenterology Progress Note REPORT#:[id number] REPORT STATUS: Signed DATE:10/02/19 TIME: 1337 PATIENT: MAC AGUSTIN UNIT #: [id number] ROOM/BED: 5526-1 : 47 AGE: 74 SEX: F ATTEND: Joel Myers MD ADM AUTHOR: Arian Anderson * ALL edits or amendments must be made on the electronic/computer document * Arian Anderson 10/02/19 1338: Subjective Chief Complaint: weak HPI: No overt GI bleeding. Tolerating some diet but with poor appetite. Review of Systems Unable to obtain due to: AMS Objective General VS/I O: Last Documented: Result Date Time Pulse Ox 95 10/01 1123 B/P 101/58 10/01 1123 B/P Mean 72.4 10/01 1123 O2 Delivery Nasal cannula 10/01 112 Temp 36.6 10/01 1123 Pulse 68 10/01 1123 Resp 17 10/01 1123 O2 Flow Rate 2.673563 09/30 1930 24 hour I O ending at 0700: 10/01 0700 09/30 1900 Intake Total 1710.00 20 Output Total Balance 1710.00 20 Intake, IV 720.00 Intake, Oral 760 Intake, Oral 230 20 Supplement Number 1 Bowel Movements Number 3 Incontinent Voids Patient 75.75 kg Weight Weight Bed scale Measurement Method Patient Weight Weight (lb): 167 Weight (oz): 15.88 Weight (kg): 75.75 Medications: Active Meds + DC'd Last 24 Hrs Potassium Chloride 50 ML Q1HR IV (DC) [...] Heparin Sodium 5,000 UNIT Q12HR SUBQ Physical Exam General appearance: altered mental status, no acute distress HEENT: moist mucosal membranes Cardiovascular: normal S1/S2 Respiratory: clear to auscultation Abdomen: non-tender, normal bowel sounds, soft, no distention Extremities: edema Musculoskeletal: normal inspection Skin: dry Results Findings/Data: Laboratory Tests 10/02/19617: [Embedded Image Not Available] Laboratory Tests 10/01 10/01 10/01 09/30 09/30 1120 [...] (Auto) (14.0 - 32.0 %) 33.1 H Kershaw % (Auto) (4.8 - 9.0 %) 8.1 Eos % (Auto) (0.3 - 3.7 %) 1.7 Baso % (Auto) (0.0 - 2.0 %) 0.2 Neut # (Auto) (2.0 - 7.6 x10 3/uL) 3.33 Lymph # (Auto) (1.0 - 3.8 x10 3/uL) 1.95 Kershaw # (Auto) (0.1 - 0.8 x10 3/uL) [...] 5.0 Results: vital signs stable Diagnosis, Assessment Plan Problem List/A P: 1. Antibiotic-associated diarrhea Free Text A P: IMPRESSION: A 74-year-old female with a host of comorbidities, especially advanced dementia, presented with failure to thrive kind of situation, labs were significantly abnormal with electrolyte disbalance, acute renal failure, metabolic acidosis and underlying sepsis from urinary tract infection. UTI is being treated with IV antibiotic. She is responding. The CT finding of colonic wall thickening as well as gastric distention with gastric wall thickening is an incidental finding. PLAN: 1. Colonic wall thickening is not concerning. This diffuse colonic wall edema could be due to underlying sepsis and hypoalbuminemia. This does not warrant any further investigation at this time. It seems to be self-limiting. 2. Gastric distention, gastric wall thickening certainly needs further evaluation with direct visualization. Therefore, upper endoscopy should be considered when the patient is medically stable and has recovered well from her current acute illness. 10/01/19 - C diff ordered and pending collection. Diarrhea resolved. - Broaden stool studies. Pending collection. - PPI PO - Consider Megace if PO intake does not improve - Supportive care - Outpatient EGD and colonoscopy given current COVID restrictions and no evidence of active bleeding Coleman Sr VJamarcus 11/07/19 0901: Attestations Physician Attestation Agree w/findings plan: Patient seen and examined. Agree with the findings and plan as documented by SHELL MOLD BONDING MACHINE OPERATOR. at 1409 RPT #:[id number] END OF REPORT [facility] 2019-10-02 13:38:00 [facility] Gastroenterology Progress Note REPORT#:[id number] REPORT STATUS: Signed DATE:10/02/19 TIME: 133 PATIENT: MAC AGUSTIN UNIT #: [id number] ROOM/BED: [place] [address] : 47 AGE: 74 SEX: F ATTEND: Joel Myers MD ADM AUTHOR: Arian Anderson * ALL edits or amendments must be made on the electronic/computer document * Arian Anderson 10/02/19 1338: Subjective Chief Complaint: weak HPI: No overt GI bleeding. Tolerating some diet but with poor appetite. Review of Systems Unable to obtain due to: AMS Objective General VS/I O: Last Documented: Result Date Time Pulse Ox 95 10/01 1123 B/P 101/58 10/01 1123 B/P Mean 72.4 10/01 1123 O2 Delivery Nasal cannula 10/01 1123 Temp 36.6 10/01 1123 Pulse 68 10/01 1123 Resp 17 10/01 1123 O2 Flow Rate 2.407342 09/30 1930 24 hour I O ending at 0700: 10/01 0700 09/30 1900 Intake Total 1710.00 20 Output Total Balance 1710.00 20 Intake, IV 720.00 Intake, Oral 760 Intake, Oral 230 20 Supplement Number 1 Bowel Movements Number 3 Incontinent Voids Patient 75.75 kg Weight Weight Bed scale Measurement Method Patient Weight Weight (lb): 167 Weight (oz): 15.88 Weight (kg): 75.75 Medications: Active Meds + DC'd Last 24 Hrs Potassium Chloride 50 ML Q1HR IV (DC) [...] Heparin Sodium 5,000 UNIT Q12HR SUBQ Physical Exam General appearance: altered mental status, no acute distress HEENT: moist mucosal membranes Cardiovascular: normal S1/S2 Respiratory: clear to auscultation Abdomen: non-tender, normal bowel sounds, soft, no distention Extremities: edema Musculoskeletal: normal inspection Skin: dry Results Findings/Data: Laboratory Tests 10/02/19617: [Embedded Image Not Available] Laboratory Tests 10/01 10/01 10/01 09/30 09/30 1120 [...] (Auto) (14.0 - 32.0 %) 33.1 H Kershaw % (Auto) (4.8 - 9.0 %) 8.1 Eos % (Auto) (0.3 - 3.7 %) 1.7 Baso % (Auto) (0.0 - 2.0 %) 0.2 Neut # (Auto) (2.0 - 7.6 x10 3/uL) 3.33 Lymph # (Auto) (1.0 - 3.8 x10 3/uL) 1.95 Kershaw # (Auto) (0.1 - 0.8 x10 3/uL) [...] 5.0 Results: vital signs stable Diagnosis, Assessment Plan Problem List/A P: 1. Antibiotic-associated diarrhea Free Text A P: IMPRESSION: A 74-year-old female with a host of comorbidities, especially advanced dementia, presented with failure to thrive kind of situation, labs were significantly abnormal with electrolyte disbalance, acute renal failure, metabolic acidosis and underlying sepsis from urinary tract infection. UTI is being treated with IV antibiotic. She is responding. The CT finding of colonic wall thickening as well as gastric distention with gastric wall thickening is an incidental finding. PLAN: 1. Colonic wall thickening is not concerning. This diffuse colonic wall edema could be due to underlying sepsis and hypoalbuminemia. This does not warrant any further investigation at this time. It seems to be self-limiting. 2. Gastric distention, gastric wall thickening certainly needs further evaluation with direct visualization. Therefore, upper endoscopy should be considered when the patient is medically stable and has recovered well from her current acute illness. 10/01/19 - C diff ordered and pending collection. Diarrhea resolved. - Broaden stool studies. Pending collection. - PPI PO - Consider Megace if PO intake does not improve - Supportive care - Outpatient EGD and colonoscopy given current COVID restrictions and no evidence of active bleeding Coleman Sr V. 11/07/19 0901: Attestations Physician Attestation Agree w/findings plan: Patient seen and examined. Agree with the findings and plan as documented by SHELL MOLD BONDING MACHINE OPERATOR. at 1409 at 0914 RPT #:[id number] END OF REPORT [facility] 2019-10-02 09:54:00 [facility] Rehab Progress Note REPORT#:[id number] REPORT STATUS: Signed DATE:10/02/19 TIME: 0954 PATIENT: MAC AGUSTIN UNIT #: [id number] ROOM/BED: [place] [address] : 47 AGE: 74 SEX: F ATTEND: Joel Myers MD ADM AUTHOR: Lucy Ayon PA-C * ALL edits or amendments must be made on the electronic/computer document * Subjective Chief complaint: Pt seen in bed. No complaints. Sleeping and wakes on verbal commands. No hungry this a.m. yet. No complaints of cp, sob, abdominal pain,nasuea,limb pain. Objective General VS: Vital Signs: Date Time Temp Pulse Resp B/P B/P Pulse O2 O2 Flow FiO2 Mean Ox Delivery Rate 10/01 0745 97.5 79 17 111/68 82.6 97 10/01 0444 97.7 68 15 96/64 74.7 93 09/30 2325 98.6 69 18 103/67 79.0 99 09/30 1930 Nasal 2.336598 cannula 09/30 1919 97.7 76 18 94/62 73.1 97 09/30 1525 98.1 72 18 109/70 82.9 97 09/30 1146 97.7 69 18 107/71 83.0 97 Patient Weight Weight (lb): 167 Weight (oz): 15.88 Weight (kg): 75.75 Medications: Active Meds + DC'd Last 24 Hrs Potassium Chloride 50 ML Q1HR IV Magnesium Sulfate/Dextrose [...] Heparin Sodium 5,000 UNIT Q12HR SUBQ Physical Exam General appearance: sleeping comfortably (wakes on command ) Psych: normal affect HEENT: anicteric, mucosal membranes moist, sclera clear Neck: supple, no JVD Cardiovascular: regular rate rhythm, S1/S2 Respiratory: aerating well, clear bilaterally Abdomen: bowel sounds present, non-distended, soft, soft, non-tender Skin: dry, intact Musculoskeletal - general: Musculoskeletal - general: joints normal, range of motion normal, no swelling Neuro/BACK SHOE WORKER: altered mental status, alert, no motor deficits, no sensory deficits Functional Progress Functional progress: Patient/Family Goals: TO GET STRONGER. Rehabilitation Potential: Good for goals Discharge Plan: POST ACUTE THERAPY Plan of Care, Type: Physical Therapy Treatment Details: Y Comment: HIGH COMPLEX PT EVAL DUE TO MUL. COMORBIDITIES AND FUNCTIONAL PERFORMANCE DEFICITS. PATIENT WILL BENEFIT WITH ACUTE RN HOME CARE SERVICES TO ADDRESS MOBILITY LIMITATIONS. If this [...] be outside Functional Limits are as follows: Upper Body Dressing: Moderate Assistance Lower Body Dressing: Dependent Hygiene/Grooming: Moderate Assistance Feeding: Supervision or Set-up Toileting: Dependent NEUROLOGICAL NEUROLOGICAL Items determined to be outside Functional Results Findings/Data: Laboratory Tests: 10/01 09/30 09/30 09/30 0618 1917 [...] (Auto) (14.0 - 32.0 %) 33.1 H Kershaw % (Auto) (4.8 - 9.0 %) 8.1 Eos % (Auto) (0.3 - 3.7 %) 1.7 Baso % (Auto) (0.0 - 2.0 %) 0.2 Neut # (Auto) (2.0 - 7.6 x10 3/uL) 3.33 Lymph # (Auto) (1.0 - 3.8 x10 3/uL) 1.95 Kershaw # (Auto) (0.1 - 0.8 x10 3/uL) [...] (0.9 - 11.2 %) 5.0 Diagnosis, Assessment Plan Problem List/A P: 1. Acute renal failure 2. Physical deconditioning 3. Hypomagnesemia 4. Lactic acidosis 5. DKA (diabetic ketoacidoses) 6. Metabolic acidosis 7. Gastric distention Free Text A P: 74 years old female with past medical history significant for Alzheimer's dementia, behavioral disturbance, hypertension, type 2 diabetes mellitus, migraine headaches, anxiety disorder, bowel and bladder incontinence, rheumatoid arthritis, frequent UTI. She was admitted secondary to [...] dementia she would benefit from returning [facility] [place] her acute care stay. I discussed with the patient's [id number] who is on the chart as 1 of the contacts and she states their wish is for her to return to [facility] once medically cleared. 10/01: Encourage particpation with [employer]. Diff not collected. Pt hgb stable. SNF once ready to be discharged. Rehab attestation: Face to face exam completed. Treatment plan discussed with patient. at 1011 RPT #:[id number] END OF REPORT [facility] 2019-10-02 07:20:00 [facility] Nephrology Progress Note REPORT#:[id number] REPORT STATUS: Signed DATE:10/02/19 TIME: 719 PATIENT: MAC AGUSTIN UNIT #: [id number] ROOM/BED: [place] [address] : 47 AGE: 74 SEX: F ATTEND: Joel Myers MD ADM AUTHOR: Rabia Aguilar MD * ALL edits or amendments must be made on the electronic/computer document * Subjective Chief Complaint: AMS/Lactic acidosis/NATHEN Unable to obtain: dementia Comments: Patient seen and evaluated, HPI no change from initial, feels okay Review of Systems Unable to obtain due to: Dementia Objective General VS/I O: Vital Signs: Date Time Temp Pulse Resp B/P B/P Pulse O2 O2 Flow FiO2 Mean Ox Delivery Rate 10/01 0444 36.5 68 15 96/64 74.7 93 09/30 2325 37.0 69 18 103/67 79.0 99 09/30 1930 Nasal 2.062340 cannula 09/30 1919 36.5 76 18 94/62 73.1 97 09/30 1525 36.7 72 18 109/70 82.9 97 09/30 1146 36.5 69 18 107/71 83.0 97 09/30 0753 36.4 66 18 101/67 78.3 95 09/30 0730 Nasal 2.605399 cannula 24 hour I O ending at 0700: 10/01 0700 09/30 1900 Intake Total 1710.00 20 Output Total Balance 1710.00 20 Intake, IV 720.00 Intake, Oral 760 Intake, Oral 230 20 Supplement Number 1 Bowel Movements Number 3 Incontinent Voids Patient 75.75 kg Weight Weight Bed scale Measurement Method Medications Active Meds + DC'd Last 24 Hrs Pantoprazole 40 MG BID@0600,1800 PO Megestrol Acetate [...] Heparin Sodium 5,000 UNIT Q12HR SUBQ Physical Exam General appearance: alert, no acute distress Head/eyes: atraumatic, normocephalic ENT: normal nose Neck: supple/no meningismus Cardiovascular: normal heart sounds, no rub Respiratory: aerating well, symmetric expansion Abdomen: soft Genitourinary: ballard, urine Extremities: no edema Musculoskeletal: normal inspection Neuro/BACK SHOE WORKER: altered mental status Skin: dry Results Findings/Data: Laboratory Tests 09/30 09/30 09/30 09/30 09/30 1917 [...] Magnesium (1.8 - 2.4 mg/dL) 1.80 2.00 04/19 04/19 04/19 1225 1008 0753 Chemistry Sodium (134 - [...] - 32.0 %) 10.0 L 12.7 L Kershaw % (Auto) (4.8 - 9.0 %) 5.7 5.2 Eos % (Auto) (0.3 - 3.7 %) 0.7 0.5 Baso % (Auto) (0.0 - 2.0 %) 0.2 0.1 Neut # (Auto) (2.0 - 7.6 x10 3/uL) 8.01 H 8.57 H Lymph # (Auto) (1.0 - 3.8 x10 3/uL) 0.97 L 1.34 Kershaw # (Auto) (0.1 - 0.8 x10 3/uL) [...] 178 H Diagnosis, Assessment Plan Free Text A P: Patient seen and evaluated, discussed with care team, images and laboratories reviewed. History of dementia History of rheumatoid arthritis History of frequent falls History of frequent UTIs History of hypertension: Currently hypotensive Hypokalemia: We will supplement Severe hypomagnesemia we will supplement Hypocalcemia: We will supplement Hypoalbuminemia Severe lactic acidosis: Etiology, could be related to septic shock, however source is unclear, rule out ischemic bowel, Zosyn, will need to review her medications if patient has been on metformin, lactic acidosis due to metformin in the setting of acute renal failure is a possibility and will do hemodialysis in the setting. Patient has been taking Metformin 1000 BID, kenneth has lactic acidosis that is induced by Metformin, discussed with deysi and ICC/Primary team will proceed with HD 09/27/2019 mental status a lot better, hemodynamically more stable, pressors being weaned off, received 6 hours of hemodialysis yesterday, her last set of blood gas showed a pH of 7.40, PCO2 25, PO2 55, lactic acid 6.2 improving, sodium is 143 potassium 3.6 CO2 20 chloride 101 BUN 13 creatinine 1.1, hemoglobin this morning 9.7, white blood count 19.78 trending down, platelet 156 , her clinical picture is consistent with metformin induced lactic acidosis, will do another session of hemodialysis, 4 hours, potassium 3.5, no ultrafiltration, will give 20 mmol of potassium phosphate and expectation of hypophosphatemia during hemodialysis. katie and evaluated during HD, discussed with RN and HD nurse 09/28/2019 laboratories from this morning showed sodium 144, potassium 3.3 we will give KCl 20 mEq IV x1, chloride 104, bicarbonate 16, creatinine 1.2, lactic acid 1.2, hemoglobin 8.4, white blood count 15.2, blood culture still negative, anion gap today is 24 with a normal lactic acid etiology unclear will repeat BMP , repeat lactic acid and order serum acetone and do urinalysis to check for urine ketones, also will do a blood gas. Ketones came back as large, This is likley starvation ketoacidosis that has been exacerbated by gluconeogenesis inhibition by Metformin and has been reported in the literature, will start Glucose and insulin drip 09/29/2019 laboratories from this morning showed sodium 142, [...] afternoon, her creatinine is 2.2, not sure what her baseline creatinine, her creatinine is relatively stable since yesterday, will monitor closely, hemoglobin is 7.8, white blood count 13.57 improving. 09/30/2019 laboratories from this morning showed sodium 138, potassium 3.5, CO2 34, chloride 100, BUN and creatinine 22 and 2.4 up some likely related to diuretics, albumin 1.8, hemoglobin 7.8, platelet 60, white blood count 10.51 continues to trend down, lactic acid 1.2 within normal limit, urine output about 1900 cc with Lasix. Chest x-ray still pending. [...] check post void resdiual at 1202 RPT #:[id number] END OF REPORT [facility] 2019-10-02 07:20:00 [facility] Nephrology Progress Note REPORT#:[id number] REPORT STATUS: Signed DATE:10/02/19 TIME: 719 PATIENT: MAC AGUSTIN UNIT #: [id number] ROOM/BED: [place] [address] : 47 AGE: 74 SEX: F ATTEND: Joel Myers MD ADM AUTHOR: Rabia Aguilar MD * ALL edits or amendments must be made on the electronic/computer document * See Addendum Subjective Chief Complaint: AMS/Lactic acidosis/NATHEN Unable to obtain: dementia Comments: Patient seen and evaluated, HPI no change from initial, feels okay Review of Systems Unable to obtain due to: Dementia Objective General VS/I O: Vital Signs: Date Time Temp Pulse Resp B/P B/P Pulse O2 O2 Flow FiO2 Mean Ox Delivery Rate 10/01 0444 36.5 68 15 96/64 74.7 93 09/30 2325 37.0 69 18 103/67 79.0 99 09/30 1930 Nasal 2.939904 cannula 09/30 1919 36.5 76 18 94/62 73.1 97 09/30 1525 36.7 72 18 109/70 82.9 97 09/30 1146 36.5 69 18 107/71 83.0 97 09/30 0753 36.4 66 18 101/67 78.3 95 09/30 0730 Nasal 2.270327 cannula 24 hour I O ending at 0700: 10/01 0700 09/30 1900 Intake Total 1710.00 20 Output Total Balance 1710.00 20 Intake, IV 720.00 Intake, Oral 760 Intake, Oral 230 20 Supplement Number 1 Bowel Movements Number 3 Incontinent Voids Patient 75.75 kg Weight Weight Bed scale Measurement Method Medications Active Meds + DC'd Last 24 Hrs Pantoprazole 40 MG BID@0600,1800 PO Megestrol Acetate [...] Heparin Sodium 5,000 UNIT Q12HR SUBQ Physical Exam General appearance: alert, no acute distress Head/eyes: atraumatic, normocephalic ENT: normal nose Neck: supple/no meningismus Cardiovascular: normal heart sounds, no rub Respiratory: aerating well, symmetric expansion Abdomen: soft Genitourinary: ballard, urine Extremities: no edema Musculoskeletal: normal inspection Neuro/BACK SHOE WORKER: altered mental status Skin: dry Results Findings/Data: Laboratory Tests 09/30 1617 1145 0752 0400 Chemistry Sodium [...] Laboratory Tests 09/30 09/29 09/29 0400 0819 0512 Hematology WBC (4.5 - 11.0 x10 3/uL) [...] - 32.0 %) 10.0 L 12.7 L Kershaw % (Auto) (4.8 - 9.0 %) 5.7 5.2 Eos % (Auto) (0.3 - 3.7 %) 0.7 0.5 Baso % (Auto) (0.0 - 2.0 %) 0.2 0.1 Neut # (Auto) (2.0 - 7.6 x10 3/uL) 8.01 H 8.57 H Lymph # (Auto) (1.0 - 3.8 x10 3/uL) 0.97 L 1.34 Kershaw # (Auto) (0.1 - 0.8 x10 3/uL) [...] 178 H Diagnosis, Assessment Plan Free Text A P: Patient seen and evaluated, discussed with care team, images and laboratories reviewed. History of dementia History of rheumatoid arthritis History of frequent falls History of frequent UTIs History of hypertension: Currently hypotensive Hypokalemia: We will supplement Severe hypomagnesemia we will supplement Hypocalcemia: We will supplement Hypoalbuminemia Severe lactic acidosis: Etiology, could be related to septic shock, however source is unclear, rule out ischemic bowel, Cherisyn, will need to review her medications if patient has been on metformin, lactic acidosis due to metformin in the setting of acute renal failure is a possibility and will do hemodialysis in the setting. Patient has been taking Metformin 1000 BID, kenneth has lactic acidosis that is induced by Metformin, discussed with deysi and ICC/Primary team will proceed with HD 09/27/2019 mental status a lot better, hemodynamically more stable, pressors being weaned off, received 6 hours of hemodialysis yesterday, her last set of blood gas showed a pH of 7.40, PCO2 25, PO2 55, lactic acid 6.2 improving, sodium is 143 potassium 3.6 CO2 20 chloride 101 BUN 13 creatinine 1.1, hemoglobin this morning 9.7, white blood count 19.78 trending down, platelet 156 , her clinical picture is consistent with metformin induced lactic acidosis, will do another session of hemodialysis, 4 hours, potassium 3.5, no ultrafiltration, will give 20 mmol of potassium phosphate and expectation of hypophosphatemia during hemodialysis. katie and evaluated during HD, discussed with RN and HD nurse 09/28/2019 laboratories from this morning showed sodium 144, potassium 3.3 we will give KCl 20 mEq IV x1, chloride 104, bicarbonate 16, creatinine 1.2, lactic acid 1.2, hemoglobin 8.4, white blood count 15.2, blood culture still negative, anion gap today is 24 with a normal lactic acid etiology unclear will repeat BMP , repeat lactic acid and order serum acetone and do urinalysis to check for urine ketones, also will do a blood gas. Ketones came back as large, This is likley starvation ketoacidosis that has been exacerbated by gluconeogenesis inhibition by Metformin and has been reported in the literature, will start Glucose and insulin drip 09/29/2019 laboratories from this morning showed sodium 142, [...] afternoon, her creatinine is 2.2, not sure what her baseline creatinine, her creatinine is relatively stable since yesterday, will monitor closely, hemoglobin is 7.8, white blood count 13.57 improving. 09/30/2019 laboratories from this morning showed sodium 138, potassium 3.5, CO2 34, chloride 100, BUN and creatinine 22 and 2.4 up some likely related to diuretics, albumin 1.8, hemoglobin 7.8, platelet 60, white blood count 10.51 continues to trend down, lactic acid 1.2 within normal limit, urine output about 1900 cc with Lasix. Chest x-ray still pending. [...] creatinine 2.8 continue to rise, will check postvoid residual, hemoglobin 8.3, platelet 106, white blood count 5.89, hypomagnesemia 1.7 we will give magnesium sulfate 1 g IV x1. at 0849 RPT #:[id number] END OF REPORT [facility] 2019-10-02 07:09:00 [facility] Hospitalist Progress Note REPORT#:[id number] REPORT STATUS: Signed DATE:10/02/19 TIME: 0709 PATIENT: MAC AGUSTIN UNIT #: [id number] ROOM/BED: [place] [address] : 47 AGE: 74 SEX: F ATTEND: Joel Myers MD ADM AUTHOR: Joel Myers MD * ALL edits or amendments must be made on the electronic/computer document * Subjective Chief Complaint: follow up for NATHEN/CKD, HTN. feels ok. not eating well. no diarrhea or melena. denies abdominal pain. appetite remains poor. Review of Systems Additional notes: 12 point ROS negative except for mentioned in HPI. Objective General VS/I O: Vital Signs: Date Time Temp Pulse Resp B/P B/P Pulse O2 O2 Flow FiO2 Mean Ox Delivery Rate 10/01 0444 97.7 68 15 96/64 74.7 93 09/30 2325 98.6 69 18 103/67 79.0 99 09/30 1930 Nasal 2.886777 cannula 09/30 1919 97.7 76 18 94/62 73.1 97 09/30 1525 98.1 72 18 109/70 82.9 97 09/30 1146 97.7 69 18 107/71 83.0 97 09/30 0753 97.5 66 18 101/67 78.3 95 09/30 0730 Nasal 2.514348 cannula 24 hour I O ending at 0700: 10/01 0700 09/30 1900 Intake Total 1710.00 20 Output Total Balance 1710.00 20 Intake, IV 720.00 Intake, Oral 760 Intake, Oral 230 20 Supplement Number 1 Bowel Movements Number 3 Incontinent Voids Patient 75.75 kg Weight Weight Bed scale Measurement Method Patient Weight Weight (lb): 167 Weight (oz): 15.88 Weight (kg): 75.75 Medications: Active Meds + DC'd Last 24 Hrs Pantoprazole 40 MG BID@0600,1800 PO Megestrol Acetate [...] Sodium 5,000 UNIT Q12HR SUBQ (r) Physical Exam General appearance: confused (intermittently), alert, awake Head/Eyes: atraumatic, normocephalic ENT: moist mucosal membranes Neck: non-tender, no JVD, no masses or swelling Cardiovascular: normal heart sounds, regular rate rhythm Respiratory: decreased breath sounds, rhonchi, symmetric expansion, no distress, no rales appreciated on anterior exam Abdomen: soft, no distention, no guarding, no rebound Genitourinary: no bladder distention Extremities: edema (bLE +1), no clubbing, no cyanosis Musculoskeletal: normal inspection Neuro/BACK SHOE WORKER: no motor deficits Skin: no rash Psychiatry: normal affect, normal mood Results Findings/Data: Laboratory Tests 09/30 09/30 09/30 09/30 1917 1617 1145 0752 Chemistry POC Glucose (70 - 110 MG/DL) 218 H 260 H 178 H 178 H Diagnosis, Assessment Plan Free Text DxA P Notes Free text DxA P notes: Severe lactic acidosis Severe metabolic acidosis Acute renal failure Hypocalcemia Hypomagnesemia ?Septic shock vs lactic acidosis from metformin Dehydration Hypothermia DM HTN Dementia with behavior disturbance persistent hypoglycemia Plan: Ms. Agustin is a 74 yo female with non-specific symptoms of not feeling well, poor appetite that was found to have abnormal labs at [place], sent to ED for evaluation. In the [...] ischemic bowel. Will continue empiric Zosyn. - Zosyn - blood cultures pending - hold home meds - Accuchecks and SSI - replace electrolytes - heparin for DVT prophylaxsis 09/26 Improved lactic acidosis with dialysis. Given improvement, likely [...] life, not a good candidate for work up/treatment. BS well controlled with current insulin schedule Check labs in am 09/27 Lactate remains normal, continue to hold metformin Pt noted return of anion gap acidosis with ketonuria. Discussed with Dr. Aguilar , nephrology. Pt placed on DKA protocol to close anion gap, on D10 for glucose needs while on insulin drip. BNP elevated with clear lungs, no dependent edema, decreased O2 requirement. Give one dose of Lasix 40 mg IV, check CXR in the am, monitor for volume overload while getting DKA fluids. WBC decreased to 15, continue abx for now, d/c after 5 days Some blood noted in stool, CT with signs of chronic inflammation. Given her dementia, unsure that patient would tolerate bowel prep. GI consulted. Appreciate input on area in stomach with possible neoplasm. Check labs in am 09/28 Anion gap closed, off insulin drip Elevated lactate, monitor CXR shows severe vascular congestion and pleural fluid, likely related to fluids given for lactic acidosis and metabolic acidosis, pt not in respiratory distress - Lasix 60 mg IV q8 iniated by nephrology - D10 at 30 cc/hr to maintain blood sugar WBC decreased to 13, d/c abx after 5 days Colon with chronic inflammation, no work up per GI Will need EGD to evaluate abnormality in gastric wall once improved Check labs in am 09/29 Off insulin drip CXR reviewed Cont lasix WBC count came down to 10.5 On zosyn Transfer to the floor dw RN, SHELL MOLD BONDING MACHINE OPERATOR, consultants CXR and telemetry personally reviewed Further recs per clinical course 10/01/2019 - blood [...] to SNF in the next 1-2 days total time spent with evaluating patient/data as well as providing education/ counselling to patient was more than 35 minutes at 0711 RPT #:[id number] END OF REPORT [facility] 2019-10-01 14:00:00 [facility] ([facility]) Gastroenterology Progress Note REPORT#:[id number] REPORT STATUS: Signed DATE:10/01/19 TIME: 1400 PATIENT: MAC AGUSTIN UNIT #: [id number] ROOM/BED: [place] [address] : 47 AGE: 74 SEX: F ATTEND: Joel Myers MD ADM AUTHOR: Arian Anderson * ALL edits or amendments must be made on the electronic/computer document * Subjective Chief Complaint: weak HPI: Doing well. Diarrhea improved. No abdominal pain or nausea. Not eating much. Review of Systems Unable to obtain due to: dementia Objective General VS/I O: Last Documented: Result Date Time Pulse Ox 97 09/30 1146 B/P 107/71 09/30 1146 B/P Mean 83.0 09/30 1146 Temp 36.5 09/30 1146 Pulse 69 09/30 1146 Resp 18 09/30 1146 O2 Delivery Nasal cannula 09/294 O2 Flow Rate 4.701178 09/29 2354 24 hour I O ending at 0700: 09/30 0700 09/29 1900 Intake Total 800.00 392.00 Output Total 660 Balance 800.00 -268.00 Intake, IV 500.00 392.00 Intake, Oral 300 Number Voids 1 Output, Stool 0 Output, Urine 660 Patient 63.4 kg Weight Patient Weight Weight (lb): 167 Weight (oz): 15.88 Weight (kg): 76.200 Medications: Active Meds + DC'd Last 24 Hrs Pantoprazole 40 MG BID@0600,1800 PO Dextrose/Water 1,000 ML [...] GM Q12H IV (DC) Sodium Chloride 100 ML Albumin Human 12.5 GM ASDIR PRN IV [...] Chloride 0 ASDIR PRN IV (DC) Physical Exam General appearance: awake, oriented HEENT: moist mucosal membranes Cardiovascular: normal S1/S2 Respiratory: clear to auscultation Abdomen: non-tender, normal bowel sounds, soft, no distention Extremities: edema Musculoskeletal: normal inspection Skin: dry Results Findings/Data: Laboratory Tests 10/01/19 0400: [Embedded Image Not Available] Laboratory Tests 09/30 09/30 09/30 09/29 09/29 1145 [...] (Auto) (14.0 - 32.0 %) 10.0 L Kershaw % (Auto) (4.8 - 9.0 %) 5.7 Eos % (Auto) (0.3 - 3.7 %) 0.7 Baso % (Auto) (0.0 - 2.0 %) 0.2 Neut # (Auto) (2.0 - 7.6 x10 3/uL) 8.01 H Lymph # (Auto) (1.0 - 3.8 x10 3/uL) 0.97 L Kershaw # (Auto) (0.1 - 0.8 x10 3/uL) [...] labs reviewed, vital signs stable Diagnosis, Assessment Plan Problem List/A P: 1. Antibiotic-associated diarrhea Free Text A P: IMPRESSION: A 74-year-old female with a host of comorbidities, especially advanced dementia, presented with failure to thrive kind of situation, labs were significantly abnormal with electrolyte disbalance, acute renal failure, metabolic acidosis and underlying sepsis from urinary tract infection. UTI is being treated with IV antibiotic. She is responding. The CT finding of colonic wall thickening as well as gastric distention with gastric wall thickening is an incidental finding. PLAN: 1. Colonic wall thickening is not concerning. This diffuse colonic wall edema could be due to underlying sepsis and hypoalbuminemia. This does not warrant any further investigation at this time. It seems to be self-limiting. 2. Gastric distention, gastric wall thickening certainly needs further evaluation with direct visualization. Therefore, upper endoscopy should be considered when the patient is medically stable and has recovered well from her current acute illness. 10/01/19 - C diff ordered and pending collection. Diarrhea resolved. - Broaden stool studies. Pending collection. - PPI PO - Consider Megace if PO intake does not improve - Supportive care at 1403 RPT #:[id number] END OF REPORT [facility] 2019-10-01 14:00:00 [facility] ([facility]) Gastroenterology Progress Note REPORT#:[id number] REPORT STATUS: Signed DATE:10/01/19 TIME: 1400 PATIENT: MAC AGUSTIN UNIT #: [id number] ROOM/BED: 5526-1 : 47 AGE: 74 SEX: F ATTEND: Joel Myers MD ADM AUTHOR: Arian Anderson * ALL edits or amendments must be made on the electronic/computer document * Chemult,Arian Mata 10/01/19 1400: Subjective Chief Complaint: weak HPI: Doing well. Diarrhea improved. No abdominal pain or nausea. Not eating much. Review of Systems Unable to obtain due to: dementia Objective General VS/I O: Last Documented: Result Date Time Pulse Ox 97 09/30 1146 B/P 107/71 09/30 1146 B/P Mean 83.0 09/30 1146 Temp 36.5 09/30 1146 Pulse 69 09/30 1146 Resp 18 09/30 1146 O2 Delivery Nasal cannula 09/294 O2 Flow Rate 4.783817 09/29 2354 24 hour I O ending at 0700: 09/30 0700 09/29 1900 Intake Total 800.00 392.00 Output Total 660 Balance 800.00 -268.00 Intake, IV 500.00 392.00 Intake, Oral 300 Number Voids 1 Output, Stool 0 Output, Urine 660 Patient 63.4 kg Weight Patient Weight Weight (lb): 167 Weight (oz): 15.88 Weight (kg): 76.200 Medications: Active Meds + DC'd Last 24 Hrs Pantoprazole 40 MG BID@0600,1800 PO Dextrose/Water 1,000 ML [...] GM Q12H IV (DC) Sodium Chloride 100 ML Albumin Human 12.5 GM ASDIR PRN IV [...] Chloride 0 ASDIR PRN IV (DC) Physical Exam General appearance: awake, oriented HEENT: moist mucosal membranes Cardiovascular: normal S1/S2 Respiratory: clear to auscultation Abdomen: non-tender, normal bowel sounds, soft, no distention Extremities: edema Musculoskeletal: normal inspection Skin: dry Results Findings/Data: Laboratory Tests 10/01/19399: [Embedded Image Not Available] Laboratory Tests 09/30 09/30 09/30 09/29 09/29 1145 [...] (Auto) (14.0 - 32.0 %) 10.0 L Kershaw % (Auto) (4.8 - 9.0 %) 5.7 Eos % (Auto) (0.3 - 3.7 %) 0.7 Baso % (Auto) (0.0 - 2.0 %) 0.2 Neut # (Auto) (2.0 - 7.6 x10 3/uL) 8.01 H Lymph # (Auto) (1.0 - 3.8 x10 3/uL) 0.97 L Kershaw # (Auto) (0.1 - 0.8 x10 3/uL) [...] labs reviewed, vital signs stable Diagnosis, Assessment Plan Problem List/A P: 1. Antibiotic-associated diarrhea Free Text A P: IMPRESSION: A 74-year-old female with a host of comorbidities, especially advanced dementia, presented with failure to thrive kind of situation, labs were significantly abnormal with electrolyte disbalance, acute renal failure, metabolic acidosis and underlying sepsis from urinary tract infection. UTI is being treated with IV antibiotic. She is responding. The CT finding of colonic wall thickening as well as gastric distention with gastric wall thickening is an incidental finding. PLAN: 1. Colonic wall thickening is not concerning. This diffuse colonic wall edema could be due to underlying sepsis and hypoalbuminemia. This does not warrant any further investigation at this time. It seems to be self-limiting. 2. Gastric distention, gastric wall thickening certainly needs further evaluation with direct visualization. Therefore, upper endoscopy should be considered when the patient is medically stable and has recovered well from her current acute illness. 10/01/19 - C diff ordered and pending collection. Diarrhea resolved. - Broaden stool studies. Pending collection. - PPI PO - Consider Megace if PO intake does not improve - Supportive care Coleman Sr V. 11/07/19 0901: Attestations Physician Attestation Agree w/findings plan: Patient seen and examined. Agree with the findings and plan as documented by SHELL MOLD BONDING MACHINE OPERATOR. at 1403 RPT #:[id number] END OF REPORT [facility] 2019-10-01 14:00:00 [facility] ([facility]) Gastroenterology Progress Note REPORT#:[id number] REPORT STATUS: Signed DATE:10/01/19 TIME: 1400 PATIENT: MAC AGUSTIN UNIT #: [id number] ROOM/BED: [place] [address] : 47 AGE: 74 SEX: F ATTEND: Joel Myers MD ADM AUTHOR: Arian Anderson * ALL edits or amendments must be made on the electronic/computer document * Arian Anderson 10/01/19 1400: Subjective Chief Complaint: weak HPI: Doing well. Diarrhea improved. No abdominal pain or nausea. Not eating much. Review of Systems Unable to obtain due to: dementia Objective General VS/I O: Last Documented: Result Date Time Pulse Ox 97 09/30 1146 B/P 107/71 09/30 1146 B/P Mean 83.0 09/30 1146 Temp 36.5 09/30 1146 Pulse 69 09/30 1146 Resp 18 09/30 1146 O2 Delivery Nasal cannula 09/29 2354 O2 Flow Rate 4.794104 09/29 2354 24 hour I O ending at 0700: 09/30 0700 09/29 1900 Intake Total 800.00 392.00 Output Total 660 Balance 800.00 -268.00 Intake, IV 500.00 392.00 Intake, Oral 300 Number Voids 1 Output, Stool 0 Output, Urine 660 Patient 63.4 kg Weight Patient Weight Weight (lb): 167 Weight (oz): 15.88 Weight (kg): 76.200 Medications: Active Meds + DC'd Last 24 Hrs Pantoprazole 40 MG BID@0600,1800 PO Dextrose/Water 1,000 ML [...] GM Q12H IV (DC) Sodium Chloride 100 ML Albumin Human 12.5 GM ASDIR PRN IV [...] Chloride 0 ASDIR PRN IV (DC) Physical Exam General appearance: awake, oriented HEENT: moist mucosal membranes Cardiovascular: normal S1/S2 Respiratory: clear to auscultation Abdomen: non-tender, normal bowel sounds, soft, no distention Extremities: edema Musculoskeletal: normal inspection Skin: dry Results Findings/Data: Laboratory Tests 10/01/19 0400: [Embedded Image Not Available] Laboratory Tests 09/30 09/30 09/30 09/29 09/29 1145 [...] (Auto) (14.0 - 32.0 %) 10.0 L Kershaw % (Auto) (4.8 - 9.0 %) 5.7 Eos % (Auto) (0.3 - 3.7 %) 0.7 Baso % (Auto) (0.0 - 2.0 %) 0.2 Neut # (Auto) (2.0 - 7.6 x10 3/uL) 8.01 H Lymph # (Auto) (1.0 - 3.8 x10 3/uL) 0.97 L Kershaw # (Auto) (0.1 - 0.8 x10 3/uL) [...] labs reviewed, vital signs stable Diagnosis, Assessment Plan Problem List/A P: 1. Antibiotic-associated diarrhea Free Text A P: IMPRESSION: A 74-year-old female with a host of comorbidities, especially advanced dementia, presented with failure to thrive kind of situation, labs were significantly abnormal with electrolyte disbalance, acute renal failure, metabolic acidosis and underlying sepsis from urinary tract infection. UTI is being treated with IV antibiotic. She is responding. The CT finding of colonic wall thickening as well as gastric distention with gastric wall thickening is an incidental finding. PLAN: 1. Colonic wall thickening is not concerning. This diffuse colonic wall edema could be due to underlying sepsis and hypoalbuminemia. This does not warrant any further investigation at this time. It seems to be self-limiting. 2. Gastric distention, gastric wall thickening certainly needs further evaluation with direct visualization. Therefore, upper endoscopy should be considered when the patient is medically stable and has recovered well from her current acute illness. 10/01/19 - C diff ordered and pending collection. Diarrhea resolved. - Broaden stool studies. Pending collection. - PPI PO - Consider Megace if PO intake does not improve - Supportive care Coleman Sr V. 11/07/19 0901: Attestations Physician Attestation Agree w/findings plan: Patient seen and examined. Agree with the findings and plan as documented by SHELL MOLD BONDING MACHINE OPERATOR. at 1403 at 0913 RPT #:[id number] END OF REPORT [facility] 2019-10-01 11:45:00 [facility] ([facility]) Acute Rehab Consult REPORT#:[id number] REPORT STATUS: Signed DATE:10/01/19 TIME: 1145 PATIENT: MAC AGUSTIN UNIT #: [id number] ROOM/BED: [place] [address] : 47 AGE: 74 SEX: F ATTEND: Joel Myers MD ADM AUTHOR: Lucy Ayon PA-C * ALL edits or amendments must be made on the electronic/computer document * History of Present Illness HPI Reason for consult: evaluation of Rehab needs Requesting clinician: Dr. Myers HPI: 74 years old female with past medical history significant for Alzheimer's dementia, behavioral disturbance, hypertension, type 2 diabetes mellitus, migraine headaches, anxiety disorder, bowel and bladder incontinence, rheumatoid arthritis, frequent UTI was brought from [facility]. 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 She is brought in secondary to hypothermia and ill-appearing. On admission she was noted to have a lactic acid of 19, pH of 6.8, white blood cell count of 22,000, and creatinine of 3.9. She was started on broad-spectrum IV antibiotics secondary to severe sepsis versus lactic acidosis from unknown cause. Infection was ruled out by multiple images including chest x-ray, CT abdomen pelvis, UA and sepsis work-up. There is initially a question of a pneumoperitoneum on x- ray of the abdomen which CT ruled out the finding. General surgery was consulted. No need for any intervention secondary to no acute abdomen. She is started on aggressive IV fluid hydration as well as hemodialysis by nephrology she has multiple electrolyte abnormalities including hypomagnesemia, hypokalemia kalemia, hypocalcemia and hypoalbuminemia. She was started on the DKA protocol and anion gap was able to be closed. White blood count trending down after completion of IV antibiotics x5 days. Lactic acid is back down to normal. Currently she is unreliable historian and unable to provide adequate information on history. It was felt as though patient's [...] pending and gastroenterology has been consulted. Functional Status PT evaluation: Pending evaluation OT evaluation: Pending evaluation History Past medical history: Reports: Arthritis (RA), Dementia (Alzheimer's dementia), Depression/mood disorder (anxiety), Diabetes mellitus (type 2), Hypertension, Chronic pain. Additional medical history: Frequent UTI, incontinence of bladder and bowel, migraine headache, frequent falls Additional surgical history: Unknown Additional family history: Noncontributory to current admission Alcohol use: Denies EtOH use Drug use: Denies recreational drugs Smoking status for patients 13 years old or older: Unknown,if ever smoked Other social history: Lives in facility Additional social history: Lives is a long-term resident at [facility]. Has significant Alzheimer's dementia. Ambulates with a rolling walker. Medications: Home Medications: Medication Dose/Rte/Freq Days Qty Entered Last [...] PRN PRN 0923 0924 HEADACHE Current Hospital Medications: Anti-Infective Agents Sig/Rose Mary Start time Last Medication [...] AC 09/30 (ZINC OXIDE 30 GM TOPICAL 10/289 1011 OINTMENT) Allergies: Coded Allergies: penicillamine (UNKNOWN 09/26/19) Objective Physical Exam VS: Last Documented: Result Date Time Pulse Ox 97 09/30 1146 B/P 107/71 09/30 114 B/P Mean 83.0 09/30 1146 Temp 97.7 09/30 1146 Pulse 69 09/30 1146 Resp 18 09/30 114 O2 Delivery Nasal cannula 09/29 2353 O2 Flow Rate 4.710179 09/29 2354 Patient Weight Weight (lb): 167 Weight (oz): 15.88 Weight (kg): 76.200 General appearance: alert, awake Psych: normal affect HEENT: anicteric, mucosal membranes moist, sclera clear Neck: supple, no JVD Cardiovascular: regular rate rhythm, S1/S2 Respiratory: aerating well, clear bilaterally Abdomen: bowel sounds present, non-distended, soft, soft, non-tender Skin: dry, intact Musculoskeletal - general: Musculoskeletal - general: joints normal, range of motion normal, no swelling Neuro/BACK SHOE WORKER: altered mental status, alert, no motor deficits, no sensory deficits Results Findings/Data: Laboratory Tests: 09/30 09/30 09/29 09/29 0752 0400 [...] (Auto) (14.0 - 32.0 %) 10.0 L Kershaw % (Auto) (4.8 - 9.0 %) 5.7 Eos % (Auto) (0.3 - 3.7 %) 0.7 Baso % (Auto) (0.0 - 2.0 %) 0.2 Neut # (Auto) (2.0 - 7.6 x10 3/uL) 8.01 H Lymph # (Auto) (1.0 - 3.8 x10 3/uL) 0.97 L Kershaw # (Auto) (0.1 - 0.8 x10 3/uL) [...] (Man) (0.0 - 0.1 x10 3/uL) 0.00 Microbiology: 09/30 1443 STOOL: Giardia Antigen (ANA) - ORD 09/29 144 STOOL: Ova and Parasites - ORD 09/29 144 STOOL: Stool Leukocytes - ORD 09/30 1443 STOOL: Campylobacter Culture - ORD 09/30 1443 STOOL: Escherichia coli 0157 Culture - ORD 09/29 144 STOOL: Stool Culture - ORD Radiology data: Recent Impressions-Last 72 Hrs RADIOLOGY - XR CHEST 1 V 09/28 7441 Report Impression - Status: SIGNED Entered: 09/29/2019 1462 IMPRESSION: 1. Severe pulmonary vascular congestion and or pulmonary edema with developing moderate bilateral layering pleural effusions. 2. Developing dense left retrocardiac opacity, probably representing atelectasis or early consolidation. 3. Enlarged cardiac silhouette. SL: [id number] Impression By: [email or web address] Elizabeth Duran M.D. RADIOLOGY - XR ABDOMEN 1V (KUB) 09/29 513 Report Impression - Status: SIGNED Entered: 09/30/201936 IMPRESSION: Nonobstructed bowel gas pattern. SL: [id number] Impression By: [email or web address] Elizabeth Dumont M.D. RADIOLOGY - XR CHEST 1 V 09/29 513 Report Impression - Status: SIGNED Entered: 09/30/2019 0737 IMPRESSION: 1. Decreasing bilateral pleural effusions with decreasing bibasilar atelectasis/infiltrates. 2. Decreasing interstitial edema. 3. Removal of right jugular line. SL: [id number] Impression By: [email or web address] Elizabeth Dumont M.D. Diagnosis, Assessment Plan Problem List/A P: 1. Acute renal failure 2. Physical deconditioning 3. Hypomagnesemia 4. Lactic acidosis 5. DKA (diabetic ketoacidoses) 6. Metabolic acidosis 7. Gastric distention Free Text A P: 74 years old female with past medical history significant for Alzheimer's dementia, behavioral disturbance, hypertension, type 2 diabetes mellitus, migraine headaches, anxiety disorder, bowel and bladder incontinence, rheumatoid arthritis, frequent UTI. She was admitted secondary to severe lactic acidosis, metabolic acidosis with anion gap secondary to metformin and dehydration. Started on hemodialysis secondary to acute renal failure and lactic acidosis with multiple electrolyte abnormalities including hypokalemia, hypo-[place] anemia, hypocalcemia, hypoalbuminemia. Patient then developed acute pulmonary vascular congestion is being diuresed. Plan: Physical therapy, Occupational Therapy and speech therapy have been consulted. Due to patient being an unreliable historian and moderate dementia she would benefit from returning [facility] her acute care stay. I discussed with the patient's [id number] who is on the chart as 1 of the contacts and she states their wish is for her to return to [facility] once medically cleared. Thank you for allowing us to participate in the care of this patient. We will continue to follow along and make further rehab recommendations. at 1155 RPT #:[id number] END OF REPORT [facility] 2019-10-01 08:01:00 [facility] ([facility]) Hospitalist Progress Note REPORT#:[id number] REPORT STATUS: Signed DATE:10/01/19 TIME: 08 PATIENT: MAC AGUSTIN UNIT #: [id number] ROOM/BED: [place] [id number] : 47 AGE: 74 SEX: F ATTEND: Joel Myers MD ADM AUTHOR: Joel Myers MD * ALL edits or amendments must be made on the electronic/computer document * Subjective Chief Complaint: follow up for NATHEN/CKD, HTN. feels ok. not eating well. no fever, denies pain. Review of Systems Additional notes: 12 point ROS negative except for mentioned in HPI. Objective General VS/I O: Vital Signs: Date Time Temp Pulse Resp B/P B/P Pulse O2 O2 Flow FiO2 Mean Ox Delivery Rate 09/30 0753 97.5 66 18 101/67 78.3 95 09/30 0437 97.9 69 18 111/73 85.6 100 09/29 2354 Nasal 4.729242 cannula 09/29 2258 97.5 54 18 113/74 87.0 100 09/29 1948 97.5 60 18 103/66 78.6 100 09/29 1830 58 11 120/58 83 100 09/29 1800 58 11 107/61 76 100 Nasal 4.832624 cannula 09/29 1730 58 12 114/58 83 100 09/29 1700 58 11 96/50 65 100 Nasal 4.003492 cannula 09/29 1630 57 12 109/55 78 100 09/29 1600 97.5 63 19 99/55 69 100 Nasal 4.890878 cannula 09/29 1530 59 10 93/55 69 100 09/29 1500 60 11 93/50 64 100 Nasal 4.347141 cannula 09/29 1430 59 12 97/52 68 100 09/29 1400 60 11 112/57 75 100 Nasal 4.565976 cannula 09/29 1332 58 10 112/57 82 100 09/29 1300 60 12 99/53 68 100 Nasal 4.862409 cannula 09/29 1231 69 14 125/60 86 100 04/20 1200 97.5 59 10 98/56 70 100 Nasal 4.838382 cannula 09/29 1131 58 10 126/57 82 100 09/29 1100 56 13 126/58 80 100 Nasal 4.103518 cannula 09/29 1031 55 11 122/60 87 100 09/29 1000 60 12 121/58 79 100 Nasal 4.509223 cannula 09/29 0930 56 14 101/52 73 100 09/29 0900 57 10 107/53 71 100 Nasal 4.870365 cannula 09/29 0831 61 11 84/48 61 100 09/29 0825 100 Nasal 4.090168 cannula 24 hour I O ending at 0700: 09/30 0700 09/29 1900 Intake Total 800.00 392.00 Output Total 660 Balance 800.00 -268.00 Intake, IV 500.00 392.00 Intake, Oral 300 Number Voids 1 Output, Stool 0 Output, Urine 660 Patient 63.4 kg Weight Patient Weight Weight (lb): 167 Weight (oz): 15.88 Weight (kg): 76.200 Medications: Active Meds + DC'd Last 24 Hrs Dextrose/Water 1,000 ML .Q24H IV (UNV) Potassium Chloride 50 ML Q1HR IV (DC) Calcium Gluconate 1,000 MG ONCE ONE IV (DC) Sodium Chloride 100 ML Zinc Oxide 1 APPLIC BID TOPICAL Lidocaine 1 EA Q24H TOPICAL Insulin Human Lispro 0 AC HS SUBQ Pantoprazole Sodium 40 MG DAILY IV Sodium Chloride 10 ML ASDIR PRN IV Dextrose/Water 250 ML .Q8H20M IV (DCr) Vancomycin HCl 1,000 MG DIALYSIS-DOSE AFTER IV (DC) Sodium Chloride 250 ML Morphine Sulfate 2 MG Q4H PRN PRN IV Acetaminophen 650 MG Q4H PRN PRN PO Heparin Sodium 5,000 UNIT Q12HR SUBQ (DA) Piperacillin Sod/Tazobactam Sod 3.375 GM Q12H IV (DC) Sodium Chloride 100 ML Miscellaneous Information 1 EACH ASDIR IV (DC) Albumin [...] Chloride 0 ASDIR PRN IV (DC) Physical Exam General appearance: confused (intermittently), alert, awake Head/Eyes: atraumatic, normocephalic ENT: moist mucosal membranes Neck: non-tender, no JVD, no masses or swelling Cardiovascular: normal heart sounds, regular rate rhythm Respiratory: decreased breath sounds, rhonchi, symmetric expansion, no distress, no rales appreciated on anterior exam Abdomen: soft, no distention, no guarding, no rebound Genitourinary: no bladder distention Extremities: edema (bLE +1), no clubbing, no cyanosis Neuro/BACK SHOE WORKER: no motor deficits Skin: no rash Psychiatry: normal affect, normal mood Results Findings/Data: Laboratory Tests 09/30 09/29 09/29 09/29 09/29 0400 [...] Diagnosis, Assessment Plan Free Text DxA P Notes Free text DxA P notes: Severe lactic acidosis Severe metabolic acidosis Acute renal failure Hypocalcemia Hypomagnesemia ?Septic shock vs lactic acidosis from metformin Dehydration Hypothermia DM HTN Dementia with behavior disturbance persistent hypoglycemia Plan: Ms. Agustin is a 74 yo female with non-specific symptoms of not feeling well, poor appetite that was found to have abnormal labs [place], sent to ED for evaluation. In the [...] ischemic bowel. Will continue empiric Zosyn. - Zosyn - blood cultures pending - hold home meds - Accuchecks and SSI - replace electrolytes - heparin for DVT prophylaxsis 09/26 Improved lactic acidosis with dialysis. Given improvement, likely [...] life, not a good candidate for work up/treatment. BS well controlled with current insulin schedule Check labs in am 09/27 Lactate remains normal, continue to hold metformin Pt noted return of anion gap acidosis with ketonuria. Discussed with Dr. Aguilar , nephrology. Pt placed on DKA protocol to close anion gap, on D10 for glucose needs while on insulin drip. BNP elevated with clear lungs, no dependent edema, decreased O2 requirement. Give one dose of Lasix 40 mg IV, check CXR in the am, monitor for volume overload while getting DKA fluids. WBC decreased to 15, continue abx for now, d/c after 5 days Some blood noted in stool, CT with signs of chronic inflammation. Given her dementia, unsure that patient would tolerate bowel prep. GI consulted. Appreciate input on area in stomach with possible neoplasm. Check labs in am 09/28 Anion gap closed, off insulin drip Elevated lactate, monitor CXR shows severe vascular congestion and pleural fluid, likely related to fluids given for lactic acidosis and metabolic acidosis, pt not in respiratory distress - Lasix 60 mg IV q8 iniated by nephrology - D10 at 30 cc/hr to maintain blood sugar WBC decreased to 13, d/c abx after 5 days Colon with chronic inflammation, no work up per GI Will need EGD to evaluate abnormality in gastric wall once improved Check labs in am 09/29 Off insulin drip CXR reviewed Cont lasix WBC count came down to 10.5 On zosyn Transfer to the floor dw RN, SHELL M[employer] BONDING MACHINE OPERATOR, consultants CXR and telemetry personally reviewed Further recs per clinical course 10/01/2019 - blood [...] with evaluating patient/data as well as providing education/ counselling to patient was more than 35 minutes at 0807 RPT #:[id number] END OF REPORT [facility] 2019-10-01 07:00:00 [facility] ([facility]) Nephrology Progress Note REPORT#:[id number] REPORT STATUS: Signed DATE:10/01/19 TIME: 0700 PATIENT: MAC AGUSTIN UNIT #: [id number] ROOM/BED: [place] [id number] : 47 AGE: 74 SEX: F ATTEND: Joel Myers MD ADM AUTHOR: Rabia Aguilar MD * ALL edits or amendments must be made on the electronic/computer document * Subjective Chief Complaint: AMS/Lactic acidosis/NATHEN Unable to obtain: dementia Comments: Patient seen and evaluated, HPI no change from initial, feels okay, eating breakfast Review of Systems Unable to obtain due to: Dementia Objective General VS/I O: Vital Signs: Date Time Temp Pulse Resp B/P B/P Pulse O2 O2 Flow FiO2 Mean Ox Delivery Rate 09/30 0437 36.6 69 18 111/73 85.6 100 09/29 2354 Nasal 4.211216 cannula 09/29 2258 36.4 54 18 113/74 87.0 100 09/29 1948 36.4 60 18 103/66 78.6 100 09/29 1830 58 11 120/58 83 100 09/29 1800 58 11 107/61 76 100 Nasal 4.728795 cannula 09/29 1730 58 12 114/58 83 100 09/29 1700 58 11 96/50 65 100 Nasal 4.564905 cannula 09/29 1630 57 12 109/55 78 100 09/29 1600 36.4 63 19 99/55 69 100 Nasal 4.634828 cannula 09/29 1530 59 10 93/55 69 100 09/29 1500 60 11 93/50 64 100 Nasal 4.820690 cannula 09/29 1430 59 12 97/52 68 100 09/29 1400 60 11 112/57 75 100 Nasal 4.672434 cannula 09/29 1332 58 10 112/57 82 100 09/29 1300 60 12 99/53 68 100 Nasal 4.765889 cannula 09/29 1231 69 14 125/60 86 100 09/29 1200 36.4 59 10 98/56 70 100 Nasal 4.075954 cannula 09/29 1131 58 10 126/57 82 100 09/29 1100 56 13 126/58 80 100 Nasal 4.822239 cannula 09/29 1031 55 11 122/60 87 100 09/29 1000 60 12 121/58 79 100 Nasal 4.036808 cannula 09/29 0930 56 14 101/52 73 100 09/29 0900 57 10 107/53 71 100 Nasal 4.661496 cannula 09/29 0831 61 11 84/48 61 100 09/29 0825 100 Nasal 4.341508 cannula 09/29 0800 Nasal 4.678169 cannula 09/29 0800 36.4 58 13 129/59 82 100 Nasal 4.417447 cannula 09/29 0730 60 11 113/56 80 100 24 hour I O ending at 0700: 09/30 0700 09/29 1900 Intake Total 800.00 392.00 Output Total 660 Balance 800.00 -268.00 Intake, IV 500.00 392.00 Intake, Oral 300 Number Voids 1 Output, Stool 0 Output, Urine 660 Patient 63.4 kg Weight Medications Active Meds + DC'd Last 24 Hrs Potassium Chloride 50 ML Q1HR IV (DC) Calcium Gluconate 1,000 MG ONCE ONE IV (DC) Sodium Chloride 100 ML Zinc Oxide 1 APPLIC BID TOPICAL Lidocaine 1 EA Q24H TOPICAL Insulin Human Lispro 0 AC HS SUBQ Pantoprazole Sodium 40 MG DAILY IV Sodium Chloride 10 ML ASDIR PRN IV Dextrose/Water 250 ML .Q8H20M IV Vancomycin HCl 1,000 MG DIALYSIS-DOSE AFTER IV (DC) Sodium Chloride 250 ML Morphine Sulfate 2 MG Q4H PRN PRN IV Acetaminophen 650 MG Q4H PRN PRN PO Heparin Sodium 5,000 UNIT Q12HR SUBQ (DA) Piperacillin Sod/Tazobactam Sod 3.375 GM Q12H IV (DC) Sodium Chloride 100 ML Miscellaneous Information 1 EACH ASDIR IV (DC) Albumin [...] Chloride 0 ASDIR PRN IV (DC) Physical Exam General appearance: alert, no acute distress Head/eyes: atraumatic, normocephalic ENT: normal nose Neck: supple/no meningismus Cardiovascular: normal heart sounds, no rub Respiratory: aerating well, symmetric expansion Abdomen: soft Genitourinary: ballard, urine Extremities: no edema Musculoskeletal: normal inspection Neuro/BACK SHOE WORKER: altered mental status Skin: dry Results Findings/Data: Laboratory Tests 09/27 1147 Blood Gas Puncture [...] 09/28 09/28 09/27 0443 0443 0443 0136 2314 Chemistry Sodium (134 - 147 mEq/L) 142 [...] 2.00 B-Natriuretic Peptide (0 - 100 546.7 H PG/ML) 09/27 09/27 09/27 09/27 09/27 2312 2312 [...] - 32.0 %) 12.7 L 7.1 L [place] % (Auto) (4.8 - 9.0 %) 5.2 4.6 L Eos % (Auto) (0.3 - 3.7 %) 0.5 0.1 L Baso % (Auto) (0.0 - 2.0 %) 0.1 0.1 Neut # (Auto) (2.0 - 7.6 x10 3/uL) 8.57 H 11.76 H Lymph # (Auto) (1.0 - 3.8 x10 3/uL) 1.34 0.96 L [place] # (Auto) (0.1 - 0.8 x10 3/uL) [...] pH (5.0 - 7.0) 5.0 Ur Specific [place] (1.005 - 1.030) 1.006 Urine Protein (NEGATIVE) [...] Urine Mucus (NONE SEEN /LPF) TRACE Recent Impressions: RADIOLOGY - XR ABDOMEN 1V (KUB) 09/29 513 Report Impression - Status: SIGNED Entered: 09/30/2019 0736 IMPRESSION: Nonobstructed bowel gas pattern. SL: [id number] Impression By: Liam Dumont M.D. RADIOLOGY - XR CHEST 1 V 09/29 513 Report Impression - Status: SIGNED Entered: 09/30/201937 IMPRESSION: 1. Decreasing bilateral pleural effusions with decreasing bibasilar atelectasis/infiltrates. 2. Decreasing interstitial edema. 3. Removal of right jugular line. SL: [id number] Impression By: Liam Dumont M.D. Laboratory Tests 09/29 [...] 14.3 H Diagnosis, Assessment Plan Free Text A P: Patient seen and evaluated, discussed with care team, images and laboratories reviewed. History of dementia History of rheumatoid arthritis History of frequent falls History of frequent UTIs History of hypertension: Currently hypotensive Hypokalemia: We will supplement Severe hypomagnesemia we will supplement Hypocalcemia: We will supplement Hypoalbuminemia Severe lactic acidosis: Etiology, could be related to septic shock, however source is unclear, rule out ischemic bowel, Zosyn, will need to review her medications if patient has been on metformin, lactic acidosis due to metformin in the setting of acute renal failure is a possibility and will do hemodialysis in the setting. Patient has been taking Metformin 1000 BID, kenneth has lactic acidosis that is induced by Metformin, discussed with deysi and ICC/Primary team will proceed with HD 09/27/2019 mental status a lot better, hemodynamically more stable, pressors being weaned off, received 6 hours of hemodialysis yesterday, her last set of blood gas showed a pH of 7.40, PCO2 25, PO2 55, lactic acid 6.2 improving, sodium is 143 potassium 3.6 CO2 20 chloride 101 BUN 13 creatinine 1.1, hemoglobin this morning 9.7, white blood count 19.78 trending down, platelet 156 , her clinical picture is consistent with metformin induced lactic acidosis, will do another session of hemodialysis, 4 hours, potassium 3.5, no ultrafiltration, will give 20 mmol of potassium phosphate and expectation of hypophosphatemia during hemodialysis. katie and evaluated during HD, discussed with RN and HD nurse 09/28/2019 laboratories from this morning showed sodium 144, potassium 3.3 we will give KCl 20 mEq IV x1, chloride 104, bicarbonate 16, creatinine 1.2, lactic acid 1.2, hemoglobin 8.4, white blood count 15.2, blood culture still negative, anion gap today is 24 with a normal lactic acid etiology unclear will repeat BMP , repeat lactic acid and order serum acetone and do urinalysis to check for urine ketones, also will do a blood gas. Ketones came back as large, This is likley starvation ketoacidosis that has been exacerbated by gluconeogenesis inhibition by Metformin and has been reported in the literature, will start Glucose and insulin drip 09/29/2019 laboratories from this morning showed sodium 142, [...] afternoon, her creatinine is 2.2, not sure what her baseline creatinine, her creatinine is relatively stable since yesterday, will monitor closely, hemoglobin is 7.8, white blood count 13.57 improving. 09/30/2019 laboratories from this morning showed sodium 138, potassium 3.5, CO2 34, chloride 100, BUN and creatinine 22 and 2.4 up some likely related to diuretics, albumin 1.8, hemoglobin 7.8, platelet 60, white blood count 10.51 continues to trend down, lactic acid 1.2 within normal limit, urine output about 1900 cc with Lasix. Chest x-ray still pending. [...] related to volume contraction. at 1124 RPT #:[id number] END OF REPORT [facility] 2019-09-30 14:56:00 [facility] Hospitalist Progress Note REPORT#:[id number] REPORT STATUS: Signed DATE:09/30/19 TIME: 1456 PATIENT: MAC AGUSTIN UNIT #: [id number] ROOM/BED: [place] [address] : 47 AGE: 74 SEX: F ATTEND: Joel Myers MD ADM AUTHOR: Po Carvajal MD * ALL edits or amendments must be made on the electronic/computer document * Subjective Chief Complaint: NO acute issues overnight per nursing. Review of Systems Unable to obtain due to: patient with severe dementia Objective General VS/I O: Vital Signs: Date Time Temp Pulse Resp B/P B/P Pulse O2 O2 Flow FiO2 Mean Ox Delivery Rate 09/29 1430 59 12 97/52 68 100 09/29 1400 60 11 112/57 75 100 Nasal 4.051170 cannula 09/29 1332 58 10 112/57 82 100 09/29 1300 60 12 99/53 68 100 Nasal 4.178953 cannula 09/29 1231 69 14 125/60 86 100 09/29 1200 36.4 59 10 98/56 70 100 Nasal 4.706280 cannula 09/29 1131 58 10 126/57 82 100 09/29 1100 56 13 126/58 80 100 Nasal 4.361685 cannula 09/29 1031 55 11 122/60 87 100 04/20 1000 60 12 121/58 79 100 Nasal 4.204819 cannula 09/29 0930 56 14 101/52 73 100 04/20 0900 57 10 107/53 71 100 Nasal 4.249004 cannula 09/29 0831 61 11 84/48 61 100 / 0825 100 Nasal 4.594429 cannula 09/29 0800 Nasal 4.466970 cannula 09/29 0800 36.4 58 13 129/59 82 100 Nasal 4.161629 cannula 09/29 0730 60 11 113/56 80 100 04/20 0700 61 11 113/55 74 100 Nasal 4.762549 cannula 09/29 0600 59 11 114/56 81 100 04/ 0500 69 15 114/67 85 100 / 0400 62 11 115/56 79 100 / 0300 63 11 99/54 74 100 / 0201 61 11 125/58 83 100 04/ 0111 100 Nasal 4.337075 cannula 09/29 0100 65 10 119/60 86 97 / 0000 36.3 09/29 0000 66 10 89/52 65 100 04/ 2300 64 12 117/57 82 100 09/28 2200 65 12 99/54 72 100 04/ 2100 64 11 93/51 70 100 09/28 2000 73 12 130/57 82 100 09/28 1930 36.8 09/28 1900 71 11 123/58 84 97 / 1830 60 12 117/53 76 100 09/28 1800 68 21 116/59 80 100 09/28 1730 66 13 136/60 87 100 09/28 1700 68 14 112/55 77 100 09/28 1630 66 13 114/55 79 100 09/28 1606 68 16 101/52 74 100 09/28 1600 71 18 100 09/28 1600 36.7 100 Nasal 3.404442 cannula 09/28 1600 98 High flow 3.450245 nasal cannula 09/28 1530 92 31 104/58 75 99 09/28 1500 71 15 111/55 78 100 24 hour I O ending at 0700: 09/29 0700 09/28 1900 Intake Total 370.00 1150.00 Output Total 1050 900 Balance -680.00 250.00 Intake, IV 370.00 1140.00 Intake, Oral 10 Number 3 Bowel Movements Output, Stool 50 Output, Urine 1000 900 Patient Weight Weight (lb): 139 Weight (oz): 12.37 Weight (kg): 63.400 Physical Exam General appearance: sedated Head/Eyes: atraumatic, normocephalic ENT: moist mucosal membranes Neck: no JVD, no masses or swelling Cardiovascular: normal heart sounds, regular rate rhythm Respiratory: aerating well, clear to auscultation, no distress, no rales appreciated on anterior exam Abdomen: soft, no distention, no guarding, no rebound Genitourinary: no bladder distention Extremities: edema (bLE +1), no clubbing, no cyanosis Musculoskeletal: normal inspection Neuro/BACK SHOE WORKER: no motor deficits Skin: dry, intact, normal color, normal temperature, no rash Lymphatics: neck normal Psychiatry: normal affect, normal mood Results Findings/Data: Laboratory Tests 09/29 09/29 09/29 09/29 09/29 1147 0819 0819 0810 0531 Chemistry Sodium (134 - 147 mEq/L) [...] 70 Lactate Dehydrogenase (84 - 246 270 H IUnits/L) B-Natriuretic Peptide (0 - 100 PG/ML) 492.2 H Total Protein (6.4 - 8.2 g/dL) 4.5 L Albumin (3.4 - 5.0 g/dL) 1.90 L 09/29 09/28 09/28 09/28 09/28 05 2337 1724 1724 1551 Chemistry Sodium (134 - 147 mEq/L) 138 139 [...] Ionized Calcium Jefry (1.12 - 1.32 1.05 L MMOL/L) Phosphorus (2.5 - 4.9 MG/DL) 3.2 3.2 [...] INR (0.8 - 1.2) 1.3 H PTT ([place]) (25.0 - 39.5 Seconds) 28.5 PT Patient/Control [...] (Auto) (14.0 - 32.0 %) 12.7 L [place] % (Auto) (4.8 - 9.0 %) 5.2 Eos % (Auto) (0.3 - 3.7 %) 0.5 Baso % (Auto) (0.0 - 2.0 %) 0.1 Neut # (Auto) (2.0 - 7.6 x10 3/uL) 8.57 H Lymph # (Auto) (1.0 - 3.8 x10 3/uL) 1.34 [place] # (Auto) (0.1 - 0.8 x10 3/uL) [...] (0.0 - 0.1 x10 3/uL) 0.00 Radiology data: Recent Impressions: RADIOLOGY - XR ABDOMEN 1V (KUB) 09/29 513 Report Impression - Status: SIGNED Entered: 09/30/2019 0736 IMPRESSION: Nonobstructed bowel gas pattern. SL: [id number] Impression By: [email or web address] - Jose Kiel Miles, M.D. RADIOLOGY - XR CHEST 1 V 09/29 0514 Report Impression - Status: SIGNED Entered: 09/30/2019 0737 IMPRESSION: 1. Decreasing bilateral pleural effusions with decreasing bibasilar atelectasis/infiltrates. 2. Decreasing interstitial edema. 3. Removal of right jugular line. SL: [id number] Impression By: [email or web address] - Jose Dumont M.D. Diagnosis, Assessment Plan Free Text DxA P Notes Free text DxA P notes: Severe lactic acidosis Severe metabolic acidosis Acute renal failure Hypocalcemia Hypomagnesemia ?Septic shock vs lactic acidosis from metformin Dehydration Hypothermia DM HTN Dementia with behavior disturbance Plan: Ms. Agustin is a 74 yo female with non-specific symptoms of not feeling well, poor appetite that was found to have abnormal labs at [place], sent to ED for evaluation. In the [...] ischemic bowel. Will continue empiric Zosyn. - Zosyn - blood cultures pending - hold home meds - Accuchecks and SSI - replace electrolytes - heparin for DVT prophylaxsis 09/26 Improved lactic acidosis with dialysis. Given improvement, likely [...] life, not a good candidate for work up/treatment. BS well controlled with current insulin schedule Check labs in am 09/27 Lactate remains normal, continue to hold metformin Pt noted return of anion gap acidosis with ketonuria. Discussed with Dr. Aguilar , nephrology. Pt placed on DKA protocol to close anion gap, on D10 for glucose needs while on insulin drip. BNP elevated with clear lungs, no dependent edema, decreased O2 requirement. Give one dose of Lasix 40 mg IV, check CXR in the am, monitor for volume overload while getting DKA fluids. WBC decreased to 15, continue abx for now, d/c after 5 days Some blood noted in stool, CT with signs of chronic inflammation. Given her dementia, unsure that patient would tolerate bowel prep. GI consulted. Appreciate input on area in stomach with possible neoplasm. Check labs in am 09/28 Anion gap closed, off insulin drip Elevated lactate, monitor CXR shows severe vascular congestion and pleural fluid, likely related to fluids given for lactic acidosis and metabolic acidosis, pt not in respiratory distress - Lasix 60 mg IV q8 iniated by nephrology - D10 at 30 cc/hr to maintain blood sugar WBC decreased to 13, d/c abx after 5 days Colon with chronic inflammation, no work up per GI Will need EGD to evaluate abnormality in gastric wall once improved Check labs in am 09/29 Off insulin drip CXR reviewed Cont lasix WBC count came down to 10.5 On zosyn Transfer to the floor dw RN, SHELL MOLD BONDING MACHINE OPERATOR, consultants CXR and telemetry personally reviewed Further recs per clinical course at 1502 RPT #:[id number] END OF REPORT [facility] 2019-09-30 14:44:00 [facility] ([facility]) Gastroenterology Progress Note REPORT#:[id number] REPORT STATUS: Signed DATE:09/30/19 TIME: 1443 PATIENT: MAC AGUSTIN UNIT #: [id number] ROOM/BED: [place] [address] : 47 AGE: 74 SEX: F ATTEND: Joel Myers MD ADM AUTHOR: Arian Anderson * ALL edits or amendments must be made on the electronic/computer document * Subjective Chief Complaint: weak HPI: Green watery stool. Rectal tube in place. Not eating. Review of Systems Unable to obtain due to: patient condition Objective General VS/I O: Last Documented: Result Date Time Pulse Ox 100 09/29 1430 B/P 97/52 09/29 1430 B/P Mean 68 09/29 1430 Pulse 59 09/29 1430 Resp 12 09/29 1430 O2 Delivery Nasal cannula 09/29 1400 O2 Flow Rate 4.366127 09/29 1400 Temp 36.4 09/29 1200 24 hour I O ending at 0700: 09/29 0700 09/28 1900 Intake Total 370.00 1150.00 Output Total 1050 900 Balance -680.00 250.00 Intake, IV 370.00 1140.00 Intake, Oral 10 Number 3 Bowel Movements Output, Stool 50 Output, Urine 1000 900 Patient Weight Weight (lb): 139 Weight (oz): 12.37 Weight (kg): 63.400 Medications: Active Meds + DC'd Last 24 Hrs Potassium Chloride 50 ML Q1HR IV (DC) Calcium Gluconate 1,000 MG ONCE ONE IV (DC) Sodium Chloride 100 ML Zinc Oxide 1 APPLIC BID TOPICAL Lidocaine 1 EA Q24H TOPICAL Insulin Human Lispro 0 AC HS SUBQ Pantoprazole Sodium 40 MG DAILY IV Sodium Chloride 10 ML ASDIR PRN IV Dextrose/Water 250 ML .Q8H20M IV Furosemide 60 MG Q8H IV (DC) Vancomycin HCl 1,000 MG DIALYSIS-DOSE AFTER IV (DC) Sodium Chloride 250 ML Morphine Sulfate 2 MG Q4H PRN PRN IV Acetaminophen 650 MG Q4H PRN PRN PO Heparin Sodium 5,000 UNIT Q12HR SUBQ (DA) Piperacillin Sod/Tazobactam Sod 3.375 GM Q12H IV Sodium Chloride 100 ML Phenylephrine HCl 30 MG ASDIR IV (DC) Sodium Chloride 247 ML Sodium Chloride 500 ML ONCE ONE IV (DC) Vasopressin 20 UNIT ASDIR IV (DC) Sodium Chloride 100 ML Miscellaneous Information 1 EACH ASDIR IV (DC) Albumin Human 12.5 GM ASDIR PRN IV Heparin Sodium (Porcine) 1,000 UNIT ASDIR PRN DIALYSIS Mannitol 12.5 GM ASDIR PRN IV Sodium Chloride 2,000 ML ASDIR PRN IV Sodium Chloride 10 ML ASDIR PRN IV Sodium Chloride 250 ML ASDIR PRN IV Norepinephrine Bitartrate 250 ML ASDIR PRN IV Sodium Chloride 0 ASDIR PRN IV Physical Exam General appearance: no acute distress HEENT: moist mucosal membranes Cardiovascular: normal S1/S2 Respiratory: clear to auscultation Abdomen: non-tender, normal bowel sounds, soft, no distention Extremities: edema Musculoskeletal: normal inspection Skin: dry Results Findings/Data: Laboratory Tests 09/30/19 0819: [Embedded Image Not Available] 09/30/19 0531: [Embedded Image Not Available] 09/29/19 2337: [Embedded Image Not Available] 09/29/19 1724: [Embedded Image Not Available] Laboratory Tests 09/29 09/29 09/29 09/29 1147 0819 [...] 09/28 09/28 09/28 0531 0531 2337 1724 1724 Chemistry Sodium (134 - 147 mEq/L) 138 139 [...] Ionized Calcium [place]ef[place] (1.12 - 1.32 1.05 L MMOL/L) Phosphorus (2.5 - 4.9 MG/DL) 3.2 3.2 2.8 Magnesium (1.8 - 2.4 mg/dL) 1.90 1.80 2.00 Total Bilirubin (<1.5 MG/DL) 0.3 AST (15 - 37 IUnit/L) 31 ALT (15 - 65 IUnit/L) 39 Total Alk Phosphatase (20 - 125 69 IUnit/L) Total Protein (6.4 - 8.2 g/dL) 5.0 L Albumin (3.4 - 5.0 g/dL) 1.80 L 09/28 1551 Chemistry POC Glucose (70 - 110 MG/DL) 154 H Laboratory Tests 09/29 0819 Coagulation INR (0.8 - 1.2) 1.3 H PTT ([place]) (25.0 - 39.5 Seconds) 28.5 PT Patient/Control [...] (Auto) (14.0 - 32.0 %) 12.7 L [place] % (Auto) (4.8 - 9.0 %) 5.2 Eos % (Auto) (0.3 - 3.7 %) 0.5 Baso % (Auto) (0.0 - 2.0 %) 0.1 Neut # (Auto) (2.0 - 7.6 x10 3/uL) 8.57 H Lymph # (Auto) (1.0 - 3.8 x10 3/uL) 1.34 [place] # (Auto) (0.1 - 0.8 x10 3/uL) [...] (0.0 - 0.1 x10 3/uL) 0.00 Radiology Data: Recent Impressions: RADIOLOGY - XR ABDOMEN 1V (KUB) 09/29 513 Report Impression - Status: SIGNED Entered: 09/30/201936 IMPRESSION: Nonobstructed bowel gas pattern. SL: [id number] Impression By: Liam Dumont M.D. RADIOLOGY - XR CHEST 1 V 09/29 513 Report Impression - Status: SIGNED Entered: 09/30/201937 IMPRESSION: 1. Decreasing bilateral pleural effusions with decreasing bibasilar atelectasis/infiltrates. 2. Decreasing interstitial edema. 3. Removal of right jugular line. SL: [id number] Impression By: Liam Dumont M.D. Results: labs reviewed, vital signs stable Diagnosis, Assessment Plan Problem List/A P: 1. Antibiotic-associated diarrhea Free Text A P: IMPRESSION: A 74-year-old female with a host of comorbidities, especially advanced dementia, presented with failure to thrive kind of situation, labs were significantly abnormal with electrolyte disbalance, acute renal failure, metabolic acidosis and underlying sepsis from urinary tract infection. UTI is being treated with IV antibiotic. She is responding. The CT finding of colonic wall thickening as well as gastric distention with gastric wall thickening is an incidental finding. PLAN: 1. Colonic wall thickening is not concerning. This diffuse colonic wall edema could be due to underlying sepsis and hypoalbuminemia. This does not warrant any further investigation at this time. It seems to be self-limiting. 2. Gastric distention, gastric wall thickening certainly needs further evaluation with direct visualization. Therefore, upper endoscopy should be considered when the patient is medically stable and has recovered well from her current acute illness. 09/30/19 - C diff ordered and pending collection - Broaden stool studies to rule out infectioun - PPI - Supportive care at 1456 RPT #:[id number] END OF REPORT [facility] 2019-09-30 14:44:00 [facility] Gastroenterology Progress Note REPORT#:[id number] REPORT STATUS: Signed DATE:09/30/19 TIME: 1443 PATIENT: MAC AGUSTIN UNIT #: [id number] ROOM/BED: [place] [address] : 47 AGE: 74 SEX: F ATTEND: Joel Myers MD ADM AUTHOR: Arian Anderson * ALL edits or amendments must be made on the electronic/computer document * Arian Anderson 09/30/19 1444: Subjective Chief Complaint: weak HPI: Green watery stool. Rectal tube in place. Not eating. Review of Systems Unable to obtain due to: patient condition Objective General VS/I O: Last Documented: Result Date Time Pulse Ox 100 09/29 1430 B/P 97/52 09/29 1430 B/P Mean 68 09/29 1430 Pulse 59 09/29 1430 Resp 12 09/29 1430 O2 Delivery Nasal cannula 09/29 1400 O2 Flow Rate 4.688171 09/29 1400 Temp 36.4 09/29 1200 24 hour I O ending at 0700: 09/29 0700 09/28 1900 Intake Total 370.00 1150.00 Output Total 1050 900 Balance -680.00 250.00 Intake, IV 370.00 1140.00 Intake, Oral 10 Number 3 Bowel Movements Output, Stool 50 Output, Urine 1000 900 Patient Weight Weight (lb): 139 Weight (oz): 12.37 Weight (kg): 63.400 Medications: Active Meds + DC'd Last 24 Hrs Potassium Chloride 50 ML Q1HR IV (DC) Calcium Gluconate 1,000 MG ONCE ONE IV (DC) Sodium Chloride 100 ML Zinc Oxide 1 APPLIC BID TOPICAL Lidocaine 1 EA Q24H TOPICAL Insulin Human Lispro 0 AC HS SUBQ Pantoprazole Sodium 40 MG DAILY IV Sodium Chloride 10 ML ASDIR PRN IV Dextrose/Water 250 ML .Q8H20M IV Furosemide 60 MG Q8H IV (DC) Vancomycin HCl 1,000 MG DIALYSIS-DOSE AFTER IV (DC) Sodium Chloride 250 ML Morphine Sulfate 2 MG Q4H PRN PRN IV Acetaminophen 650 MG Q4H PRN PRN PO Heparin Sodium 5,000 UNIT Q12HR SUBQ (DA) Piperacillin Sod/Tazobactam Sod 3.375 GM Q12H IV Sodium Chloride 100 ML Phenylephrine HCl 30 MG ASDIR IV (DC) Sodium Chloride 247 ML Sodium Chloride 500 ML ONCE ONE IV (DC) Vasopressin 20 UNIT ASDIR IV (DC) Sodium Chloride 100 ML Miscellaneous Information 1 EACH ASDIR IV (DC) Albumin Human 12.5 GM ASDIR PRN IV Heparin Sodium (Porcine) 1,000 UNIT ASDIR PRN DIALYSIS Mannitol 12.5 GM ASDIR PRN IV Sodium Chloride 2,000 ML ASDIR PRN IV Sodium Chloride 10 ML ASDIR PRN IV Sodium Chloride 250 ML ASDIR PRN IV Norepinephrine Bitartrate 250 ML ASDIR PRN IV Sodium Chloride 0 ASDIR PRN IV Physical Exam General appearance: no acute distress HEENT: moist mucosal membranes Cardiovascular: normal S1/S2 Respiratory: clear to auscultation Abdomen: non-tender, normal bowel sounds, soft, no distention Extremities: edema Musculoskeletal: normal inspection Skin: dry Results Findings/Data: Laboratory Tests 09/30/19 0819: [Embedded Image Not Available] 09/30/19 0531: [Embedded Image Not Available] 09/29/19 2337: [Embedded Image Not Available] 09/29/19 1724: [Embedded Image Not Available] Laboratory Tests 09/29 09/29 09/29 09/29 1147 0819 [...] 09/28 09/28 09/28 0531 0531 2337 1724 1724 Chemistry Sodium (134 - 147 mEq/L) 138 139 [...] Ionized Calcium Jefry (1.12 - 1.32 1.05 L MMOL/L) Phosphorus (2.5 - 4.9 MG/DL) 3.2 3.2 2.8 Magnesium (1.8 - 2.4 mg/dL) 1.90 1.80 2.00 Total Bilirubin (<1.5 MG/DL) 0.3 AST (15 - 37 IUnit/L) 31 ALT (15 - 65 IUnit/L) 39 Total Alk Phosphatase (20 - 125 69 IUnit/L) Total Protein (6.4 - 8.2 g/dL) 5.0 [...] (Auto) (14.0 - 32.0 %) 12.7 L [place] % (Auto) (4.8 - 9.0 %) 5.2 Eos % (Auto) (0.3 - 3.7 %) 0.5 Baso % (Auto) (0.0 - 2.0 %) 0.1 Neut # (Auto) (2.0 - 7.6 x10 3/uL) 8.57 H Lymph # (Auto) (1.0 - 3.8 x10 3/uL) 1.34 [place] # (Auto) (0.1 - 0.8 x10 3/uL) [...] (0.0 - 0.1 x10 3/uL) 0.00 Radiology Data: Recent Impressions: RADIOLOGY - XR ABDOMEN 1V (KUB) 09/29 513 Report Impression - Status: SIGNED Entered: 09/30/2019 0736 IMPRESSION: Nonobstructed bowel gas pattern. SL: [id number] Impression By: Liam Dumont M.D. RADIOLOGY - XR CHEST 1 V 09/29 513 Report Impression - Status: SIGNED Entered: 09/30/2019 0737 IMPRESSION: 1. Decreasing bilateral pleural effusions with decreasing bibasilar atelectasis/infiltrates. 2. Decreasing interstitial edema. 3. Removal of right jugular line. SL: [id number] Impression By: Liam Dumont M.D. Results: labs reviewed, vital signs stable Diagnosis, Assessment Plan Problem List/A P: 1. Antibiotic-associated diarrhea Free Text A P: IMPRESSION: A 74-year-old female with a host of comorbidities, especially advanced dementia, presented with failure to thrive kind of situation, labs were significantly abnormal with electrolyte disbalance, acute renal failure, metabolic acidosis and underlying sepsis from urinary tract infection. UTI is being treated with IV antibiotic. She is responding. The CT finding of colonic wall thickening as well as gastric distention with gastric wall thickening is an incidental finding. PLAN: 1. Colonic wall thickening is not concerning. This diffuse colonic wall edema could be due to underlying sepsis and hypoalbuminemia. This does not warrant any further investigation at this time. It seems to be self-limiting. 2. Gastric distention, gastric wall thickening certainly needs further evaluation with direct visualization. Therefore, upper endoscopy should be considered when the patient is medically stable and has recovered well from her current acute illness. 09/30/19 - C diff ordered and pending collection - Broaden stool studies to rule out infectioun - PPI - Supportive care SrColeman harris Julienne 11/07/19 0900: Attestations Physician Attestation Agree w/findings plan: Patient seen and examined. Agree with the findings and plan as documented by SHELL MOLD BONDING MACHINE OPERATOR. at 1456 RPT #:[id number] END OF REPORT [facility] 2019-09-30 14:44:00 [facility] Gastroenterology Progress Note REPORT#:[id number] REPORT STATUS: Signed DATE:09/30/19 TIME: 1443 PATIENT: MAC AGUSTIN UNIT #: [id number] ROOM/BED: [place] [address] : 47 AGE: 74 SEX: F ATTEND: Joel Myers MD ADM AUTHOR: Arian Anderson * ALL edits or amendments must be made on the electronic/computer document * Arian Anderson 09/30/19 1444: Subjective Chief Complaint: weak HPI: Green watery stool. Rectal tube in place. Not eating. Review of Systems Unable to obtain due to: patient condition Objective General VS/I O: Last Documented: Result Date Time Pulse Ox 100 09/29 1430 B/P 97/52 09/29 1430 B/P Mean 68 09/29 1430 Pulse 59 09/29 1430 Resp 12 09/29 1430 O2 Delivery Nasal cannula 09/29 1400 O2 Flow Rate 4.860796 09/29 1400 Temp 36.4 09/29 1200 24 hour I O ending at 0700: 09/29 0700 09/28 1900 Intake Total 370.00 1150.00 Output Total 1050 900 Balance -680.00 250.00 Intake, IV 370.00 1140.00 Intake, Oral 10 Number 3 Bowel Movements Output, Stool 50 Output, Urine 1000 900 Patient Weight Weight (lb): 139 Weight (oz): 12.37 Weight (kg): 63.400 Medications: Active Meds + DC'd Last 24 Hrs Potassium Chloride 50 ML Q1HR IV (DC) Calcium Gluconate 1,000 MG ONCE ONE IV (DC) Sodium Chloride 100 ML Zinc Oxide 1 APPLIC BID TOPICAL Lidocaine 1 EA Q24H TOPICAL Insulin Human Lispro 0 AC HS SUBQ Pantoprazole Sodium 40 MG DAILY IV Sodium Chloride 10 ML ASDIR PRN IV Dextrose/Water 250 ML .Q8H20M IV Furosemide 60 MG Q8H IV (DC) Vancomycin HCl 1,000 MG DIALYSIS-DOSE AFTER IV (DC) Sodium Chloride 250 ML Morphine Sulfate 2 MG Q4H PRN PRN IV Acetaminophen 650 MG Q4H PRN PRN PO Heparin Sodium 5,000 UNIT Q12HR SUBQ (DA) Piperacillin Sod/Tazobactam Sod 3.375 GM Q12H IV Sodium Chloride 100 ML Phenylephrine HCl 30 MG ASDIR IV (DC) Sodium Chloride 247 ML Sodium Chloride 500 ML ONCE ONE IV (DC) Vasopressin 20 UNIT ASDIR IV (DC) Sodium Chloride 100 ML Miscellaneous Information 1 EACH ASDIR IV (DC) Albumin Human 12.5 GM ASDIR PRN IV Heparin Sodium (Porcine) 1,000 UNIT ASDIR PRN DIALYSIS Mannitol 12.5 GM ASDIR PRN IV Sodium Chloride 2,000 ML ASDIR PRN IV Sodium Chloride 10 ML ASDIR PRN IV Sodium Chloride 250 ML ASDIR PRN IV Norepinephrine Bitartrate 250 ML ASDIR PRN IV Sodium Chloride 0 ASDIR PRN IV Physical Exam General appearance: no acute distress HEENT: moist mucosal membranes Cardiovascular: normal S1/S2 Respiratory: clear to auscultation Abdomen: non-tender, normal bowel sounds, soft, no distention Extremities: edema Musculoskeletal: normal inspection Skin: dry Results Findings/Data: Laboratory Tests 09/30/19 0819: [Embedded Image Not Available] 09/30/19 0531: [Embedded Image Not Available] 09/29/19 2337: [Embedded Image Not Available] 09/29/19 1724: [Embedded Image Not Available] Laboratory Tests 09/29 09/29 09/29 09/29 1147 0819 [...] 09/29 09/29 09/28 09/28 09/28 0531 0531 8778 1729 1724 Chemistry Sodium (134 - 147 mEq/L) 138 139 [...] Ionized Calcium Jefry (1.12 - 1.32 1.05 L MMOL/L) Phosphorus (2.5 - 4.9 MG/DL) 3.2 3.2 2.8 Magnesium (1.8 - 2.4 mg/dL) 1.90 1.80 2.00 Total Bilirubin (<1.5 MG/DL) 0.3 AST (15 - 37 IUnit/L) 31 ALT (15 - 65 IUnit/L) 39 Total Alk Phosphatase (20 - 125 69 IUnit/L) Total Protein (6.4 - 8.2 g/dL) 5.0 L Albumin (3.4 - 5.0 g/dL) 1.80 L 09/28 1551 Chemistry POC Glucose (70 - 110 MG/DL) 154 H Laboratory Tests 09/29 0819 Coagulation INR (0.8 - 1.2) 1.3 H PTT ([place]) (25.0 - 39.5 Seconds) 28.5 PT Patient/Control [...] (Auto) (14.0 - 32.0 %) 12.7 L [place] % (Auto) (4.8 - 9.0 %) 5.2 Eos % (Auto) (0.3 - 3.7 %) 0.5 Baso % (Auto) (0.0 - 2.0 %) 0.1 Neut # (Auto) (2.0 - 7.6 x10 3/uL) 8.57 H Lymph # (Auto) (1.0 - 3.8 x10 3/uL) 1.34 [place] # (Auto) (0.1 - 0.8 x10 3/uL) [...] (0.0 - 0.1 x10 3/uL) 0.00 Radiology Data: Recent Impressions: RADIOLOGY - XR ABDOMEN 1V (KUB) 09/29 513 Report Impression - Status: SIGNED Entered: 09/30/2019 0736 IMPRESSION: Nonobstructed bowel gas pattern. SL: [id number] Impression By: Liam Dumont M.D. RADIOLOGY - XR CHEST 1 V 09/29 513 Report Impression - Status: SIGNED Entered: 09/30/201937 IMPRESSION: 1. Decreasing bilateral pleural effusions with decreasing bibasilar atelectasis/infiltrates. 2. Decreasing interstitial edema. 3. Removal of right jugular line. SL: [id number] Impression By: Liam Dumont M.D. Results: labs reviewed, vital signs stable Diagnosis, Assessment Plan Problem List/A P: 1. Antibiotic-associated diarrhea Free Text A P: IMPRESSION: A 74-year-old female with a host of comorbidities, especially advanced dementia, presented with failure to thrive kind of situation, labs were significantly abnormal with electrolyte disbalance, acute renal failure, metabolic acidosis and underlying sepsis from urinary tract infection. UTI is being treated with IV antibiotic. She is responding. The CT finding of colonic wall thickening as well as gastric distention with gastric wall thickening is an incidental finding. PLAN: 1. Colonic wall thickening is not concerning. This diffuse colonic wall edema could be due to underlying sepsis and hypoalbuminemia. This does not warrant any further investigation at this time. It seems to be self-limiting. 2. Gastric distention, gastric wall thickening certainly needs further evaluation with direct visualization. Therefore, upper endoscopy should be considered when the patient is medically stable and has recovered well from her current acute illness. 09/30/19 - C diff ordered and pending collection - Broaden stool studies to rule out infectioun - PPI - Supportive care Coleman Sr V. 11/07/19 0900: Attestations Physician Attestation Agree w/findings plan: Patient seen and examined. Agree with the findings and plan as documented by SHELL MOLD BONDING MACHINE OPERATOR. at 1456 at 0913 RPT #:[id number] END OF REPORT [facility] 2019-09-30 07:09:00 [facility] ([facility] Nephrology Progress Note REPORT#:[id number] REPORT STATUS: Signed DATE:09/30/19 TIME: 708 PATIENT: MAC AGUSTIN UNIT #: [id number] RO[address]BED: [address] : 47 AGE: 74 SEX: F ATTEND: Joel Myers MD ADM AUTHOR: Rabia Aguilar MD * ALL edits or amendments must be made on the electronic/computer document * Subjective Chief Complaint: AMS/Lactic acidosis/NATHEN Unable to obtain: patient condition Comments: Patient seen and evaluated, HPI no change from initial, alert, answer simple questions Review of Systems Unable to obtain due to: Dementia Objective General VS/I O: Vital Signs: Date Time Temp Pulse Resp B/P B/P Pulse O2 O2 Flow FiO2 Mean Ox Delivery Rate 09/29 0600 59 11 114/56 81 100 09/29 0500 69 15 114/67 85 100 09/29 0400 62 11 115/56 79 100 09/29 0300 63 11 99/54 74 100 09/29 0201 61 11 125/58 83 100 04/ 0111 100 Nasal 4.935711 cannula 09/29 0100 65 10 119/60 86 97 09/29 0000 36.3 09/29 0000 66 10 89/52 65 100 04/ 2300 64 12 117/57 82 100 04/ 2200 65 12 99/54 72 100 04/ 2100 64 11 93/51 70 100 042000 73 12 130/57 82 100 04 1930 36.8 04/ 1900 71 11 123/58 84 97 09/28 1830 60 12 117/53 76 100 09/28 1800 68 21 116/59 80 100 04 1730 66 13 136/60 87 100 04 1700 68 14 112/55 77 100 04 1630 66 13 114/55 79 100 04 1606 68 16 101/52 74 100 04 1600 71 18 100 04 1600 36.7 100 Nasal 3.611133 cannula 09/28 1600 98 High flow 3.575993 nasal cannula 09/28 1530 92 31 104/58 75 99 09/28 1500 71 15 111/55 78 100 09/28 1430 73 15 141/66 93 100 09/28 1400 72 16 127/60 87 100 09/28 1330 73 18 129/60 86 100 09/28 1300 74 16 130/62 89 100 04 1230 79 18 128/61 88 100 09/28 1200 98 High flow 3.546353 nasal cannula 09/28 1200 74 16 126/58 84 100 09/28 1200 36.7 100 Nasal 3.156105 cannula 09/28 1130 83 20 142/62 89 100 09/28 1100 80 18 111/59 82 100 09/28 1030 82 27 102/72 84 95 09/28 1000 79 21 111/55 79 100 09/28 0930 81 24 108/54 78 100 09/28 0900 77 21 110/56 81 100 09/28 0830 73 21 119/57 82 100 09/28 0825 100 Nasal 3.876339 cannula 09/28 0800 Nasal 3.535546 cannula 09/28 0800 76 25 115/58 83 09/28 0800 36.4 100 Nasal 3.443159 cannula 09/28 0730 83 26 113/55 79 100 24 hour I O ending at 0700: 09/29 0700 09/28 1900 Intake Total 370.00 1150.00 Output Total 1050 900 Balance -680.00 250.00 Intake, IV 370.00 1140.00 Intake, Oral 10 Number 3 Bowel Movements Output, Stool 50 Output, Urine 1000 900 Medications Active Meds + DC'd Last 24 Hrs Zinc Oxide 1 APPLIC BID TOPICAL Lidocaine [...] ONE PO (DC) Dextrose/Sodium Chloride 1,000 ML .[id number] IV (DC) Vancomycin HCl 1,000 MG DIALYSIS-DOSE AFTER IV (CKD) Sodium Chloride 250 ML Morphine Sulfate 2 MG Q4H PRN PRN IV Acetaminophen 650 MG Q4H PRN PRN PO Sodium Bicarbonate 75 ML Q10H IV (DC) Dextrose/Sodium Chloride 1,000 ML Dextrose/Water 50 ML ASDIR PRN IV (DC) Dextrose/Water 1,000 ML ASDIR IV (DC) Insulin Human Regular 100 UNIT ASDIR IV (DC) Sodium Chloride 99 ML Magnesium Sulfate 50 ML ASDIR PRN IV (DC) Magnesium Sulfate 100 ML ASDIR PRN IV (DC) Potassium Chloride 100 ML ASDIR PRN IV (DC) Potassium Phosphate 15 MM ASDIR PRN IV (DC) Sodium Chloride 250 ML Heparin Sodium 5,000 UNIT Q12HR SUBQ Piperacillin Sod/Tazobactam Sod 3.375 GM Q12H IV Sodium Chloride 100 ML Phenylephrine HCl 30 MG ASDIR IV (DC) Sodium Chloride 247 ML Sodium Chloride 500 ML ONCE ONE IV (DC) Vasopressin 20 UNIT ASDIR IV (DC) Sodium Chloride 100 ML Miscellaneous Information 1 EACH ASDIR IV (CKD) Albumin Human 12.5 GM ASDIR PRN IV Heparin Sodium (Porcine) 1,000 UNIT ASDIR PRN DIALYSIS Mannitol 12.5 GM ASDIR PRN IV Sodium Chloride 2,000 ML ASDIR PRN IV Sodium Chloride 10 ML ASDIR PRN IV Sodium Chloride 250 ML ASDIR PRN IV Norepinephrine Bitartrate 250 ML ASDIR PRN IV Sodium Chloride 0 ASDIR PRN IV Physical Exam General appearance: alert, no acute distress Head/eyes: atraumatic, normocephalic ENT: normal nose Neck: supple/no meningismus Cardiovascular: normal heart sounds, no rub Respiratory: aerating well, symmetric expansion Abdomen: soft Genitourinary: ballard, urine Extremities: no edema Musculoskeletal: normal inspection Neuro/BACK SHOE WORKER: altered mental status Skin: dry Results Findings/Data: Laboratory Tests 09/27 09/26 1147 0956 Blood Gas [...] 09/28 09/28 09/28 0531 0531 2337 1724 1724 Chemistry Sodium (134 - 147 mEq/L) 138 139 [...] Ionized Calcium Jefry (1.12 - 1.32 1.05 L MMOL/L) Phosphorus (2.5 - 4.9 MG/DL) 3.2 3.2 [...] Laboratory Tests 09/29 09/28 09/27 0531 0443 2208 Hematology WBC (4.5 - 11.0 x10 3/uL) [...] %) 12.7 L 7.1 L 6.5 L [place] % (Auto) (4.8 - 9.0 %) 5.2 4.6 L 7.5 Eos % (Auto) (0.3 - 3.7 %) 0.5 0.1 L 0.1 L Baso % (Auto) (0.0 - 2.0 %) 0.1 0.1 0.1 Neut # (Auto) (2.0 - 7.6 x10 3/uL) 8.57 H 11.76 H 12.84 H Lymph # (Auto) (1.0 - 3.8 x10 3/uL) 1.34 0.96 L 0.97 L [place] # (Auto) (0.1 - 0.8 x10 3/uL) [...] (Auto) (14.0 - 32.0 %) 4.9 L [place] % (Auto) (4.8 - 9.0 %) 9.3 H Eos % (Auto) (0.3 - 3.7 %) 0.0 L Baso % (Auto) (0.0 - 2.0 %) 0.1 Neut # (Auto) (2.0 - 7.6 x10 3/uL) 15.30 H Lymph # (Auto) (1.0 - 3.8 x10 3/uL) 0.89 L [place] # (Auto) (0.1 - 0.8 x10 3/uL) [...] pH (5.0 - 7.0) 5.0 Ur Specific [place] (1.005 - 1.030) 1.006 Urine Protein (NEGATIVE) [...] Urine Mucus (NONE SEEN /LPF) TRACE Recent Impressions: RADIOLOGY - XR CHEST 1 V 09/28 0541 Report Impression - Status: SIGNED Entered: 09/29/2019 0712 IMPRESSION: 1. Severe pulmonary vascular congestion and or pulmonary edema with developing moderate bilateral layering pleural effusions. 2. Developing dense left retrocardiac opacity, probably representing atelectasis or early consolidation. 3. Enlarged cardiac silhouette. SL: [id number] Impression By: [email or web address] - Scott Duran M.D. Laboratory Tests 09/29 09/29 09/28 09/28 09/28 0531 0531 2337 1724 1724 Chemistry Sodium (134 - 147 mEq/L) 138 139 [...] Ionized Calcium Jefry (1.12 - 1.32 1.05 L MMOL/L) Phosphorus (2.5 - 4.9 MG/DL) 3.2 3.2 2.8 Magnesium (1.8 - 2.4 mg/dL) 1.90 1.80 2.00 Total Bilirubin (<1.5 MG/DL) 0.3 AST (15 - 37 IUnit/L) 31 ALT (15 - 65 IUnit/L) 39 Total Alk Phosphatase (20 - 125 69 IUnit/L) Total Protein (6.4 - 8.2 g/dL) 5.0 [...] (Auto) (14.0 - 32.0 %) 12.7 L [place] % (Auto) (4.8 - 9.0 %) 5.2 Eos % (Auto) (0.3 - 3.7 %) 0.5 Baso % (Auto) (0.0 - 2.0 %) 0.1 Neut # (Auto) (2.0 - 7.6 x10 3/uL) 8.57 H Lymph # (Auto) (1.0 - 3.8 x10 3/uL) 1.34 [place] # (Auto) (0.1 - 0.8 x10 3/uL) [...] 3/uL) 0.00 Diagnosis, Assessment Plan Free Text A P: Patient seen and evaluated, discussed with care team, images and laboratories reviewed. History of dementia History of rheumatoid arthritis History of frequent falls History of frequent UTIs History of hypertension: Currently hypotensive Hypokalemia: We will supplement Severe hypomagnesemia we will supplement Hypocalcemia: We will supplement Hypoalbuminemia Severe lactic acidosis: Etiology, could be related to septic shock, however source is unclear, rule out ischemic bowel, Zosyn, will need to review her medications if patient has been on metformin, lactic acidosis due to metformin in the setting of acute renal failure is a possibility and will do hemodialysis in the setting. Patient has been taking Metformin 1000 BID, kenneth has lactic acidosis that is induced by Metformin, discussed with deysi and ICC/Primary team will proceed with HD 09/27/2019 mental status a lot better, hemodynamically more stable, pressors being weaned off, received 6 hours of hemodialysis yesterday, her last set of blood gas showed a pH of 7.40, PCO2 25, PO2 55, lactic acid 6.2 improving, sodium is 143 potassium 3.6 CO2 20 chloride 101 BUN 13 creatinine 1.1, hemoglobin this morning 9.7, white blood count 19.78 trending down, platelet 156 , her clinical picture is consistent with metformin induced lactic acidosis, will do another session of hemodialysis, 4 hours, potassium 3.5, no ultrafiltration, will give 20 mmol of potassium phosphate and expectation of hypophosphatemia during hemodialysis. katie and evaluated during HD, discussed with RN and HD nurse 09/28/2019 laboratories from this morning showed sodium 144, potassium 3.3 we will give KCl 20 mEq IV x1, chloride 104, bicarbonate 16, creatinine 1.2, lactic acid 1.2, hemoglobin 8.4, white blood count 15.2, blood culture still negative, anion gap today is 24 with a normal lactic acid etiology unclear will repeat BMP , repeat lactic acid and order serum acetone and do urinalysis to check for urine ketones, also will do a blood gas. Ketones came back as large, This is kenneth starvation ketoacidosis that has been exacerbated by gluconeogenesis inhibition by Metformin and has been reported in the literature, will start Glucose and insulin drip 09/29/2019 laboratories from this morning showed sodium 142, [...] afternoon, her creatinine is 2.2, not sure what her baseline creatinine, her creatinine is relatively stable since yesterday, will monitor closely, hemoglobin is 7.8, white blood count 13.57 improving. 09/30/2019 laboratories from this morning showed sodium 138, potassium 3.5, CO2 34, chloride 100, BUN and creatinine 22 and 2.4 up some likely related to diuretics, albumin 1.8, hemoglobin 7.8, platelet 60, white blood count 10.51 continues to trend down, lactic acid 1.2 within normal limit, urine output about 1900 cc with Lasix. Chest x-ray still pending. Progressive thrombocytopenia with progressive decrease in hemoglobin, the latter could be related to fluid resuscitation, multiple blood draws and blood loss during dialysis procedure, however will check LDH, haptoglobin, PT/ PT. at 1209 RPT #:[id number] END OF REPORT [facility] 2019-09-29 19:57:00 [facility] ([facility]) Gastroenterology Progress Note REPORT#:[id number] REPORT STATUS: Signed DATE:09/29/19 TIME: 1956 PATIENT: MAC AGUSTIN UNIT #: [id number] RO[address]: [address] : [birth year] AGE: 74 SEX: F ATTEND: Joel Myers MD ADM AUTHOR: Cam Delgadillo MD * ALL edits or amendments must be made on the electronic/computer document * Subjective Chief Complaint: [place] watery stool. Review of Systems Unable to obtain due to: Dementia Objective General Medications: Active Meds + DC'd Last 24 Hrs Zinc Oxide 1 APPLIC BID TOPICAL Lidocaine [...] ONE PO (DC) Dextrose/Sodium Chloride 1,000 ML .[id number] IV (DC) Vancomycin HCl 1,000 MG DIALYSIS-DOSE AFTER IV (CKD) Sodium Chloride 250 ML Morphine Sulfate 2 MG Q4H PRN PRN IV Acetaminophen 650 MG Q4H PRN PRN PO Sodium Bicarbonate 75 ML Q10H IV (DC) Dextrose/Sodium Chloride 1,000 ML Dextrose/Water 50 ML ASDIR PRN IV (DC) Dextrose/Water 1,000 ML ASDIR IV (DC) Insulin Human Regular 100 UNIT ASDIR IV (DC) Sodium Chloride 99 ML Magnesium Sulfate 50 ML ASDIR PRN IV (DC) Magnesium Sulfate 100 ML ASDIR PRN IV (DC) Potassium Chloride 100 ML ASDIR PRN IV (DC) Potassium Phosphate 15 MM ASDIR PRN IV (DC) Sodium Chloride 250 ML Heparin Sodium 5,000 UNIT Q12HR SUBQ Piperacillin Sod/Tazobactam Sod 3.375 GM Q12H IV Sodium Chloride 100 ML Phenylephrine HCl 30 MG ASDIR IV (DC) Sodium Chloride 247 ML Sodium Chloride 500 ML ONCE ONE IV (DC) Vasopressin 20 UNIT ASDIR IV (DC) Sodium Chloride 100 ML Miscellaneous Information 1 EACH ASDIR IV (CKD) Albumin Human 12.5 GM ASDIR PRN IV Heparin Sodium (Porcine) 1,000 UNIT ASDIR PRN DIALYSIS Mannitol 12.5 GM ASDIR PRN IV Sodium Chloride 2,000 ML ASDIR PRN IV Sodium Chloride 10 ML ASDIR PRN IV Sodium Chloride 250 ML ASDIR PRN IV Norepinephrine Bitartrate 250 ML ASDIR PRN IV Sodium Chloride 0 ASDIR PRN IV Nutrition assessment: The data set between the solid lines has been imported from the dietitian's assessment. Any exceptions have been noted under Provider comments. BMI Calculated: 27.3 Nutrition related diagnosis: Nutrition diagnosis details: Nutrition problem: Nutrition etiology: Nutrition signs and symptoms: Nutrition prescription: Dietitian name: Assessment completed: Provider comments on imported dietitian assessment: Physical Exam General appearance: no acute distress HEENT: moist mucosal membranes Cardiovascular: normal S1/S2 Respiratory: clear to auscultation Abdomen: non-tender, normal bowel sounds, soft, no distention Extremities: edema Results Findings/Data: Laboratory Tests: 09/28 09/28 09/28 09/28 09/28 1724 [...] (Auto) (14.0 - 32.0 %) 7.1 L [place] % (Auto) (4.8 - 9.0 %) 4.6 L Eos % (Auto) (0.3 - 3.7 %) 0.1 L Baso % (Auto) (0.0 - 2.0 %) 0.1 Neut # (Auto) (2.0 - 7.6 x10 3/uL) 11.76 H Lymph # (Auto) (1.0 - 3.8 x10 3/uL) 0.96 L [place] # (Auto) (0.1 - 0.8 x10 3/uL) [...] Magnesium (1.8 - 2.4 mg/dL) 2.00 Recent Impressions: RADIOLOGY - XR CHEST 1 V 09/28 0541 Report Impression - Status: SIGNED Entered: 09/29/2019 0712 IMPRESSION: 1. Severe pulmonary vascular congestion and or pulmonary edema with developing moderate bilateral layering pleural effusions. 2. Developing dense left retrocardiac opacity, probably representing atelectasis or early consolidation. 3. Enlarged cardiac silhouette. SL: [id number] Impression By: [email or web address] - Scott Duran M.D. Vital [...] 18 100 04 1600 36.7 100 Nasal 3.272345 cannula 09/28 1600 98 High flow 3.375475 nasal cannula 09/28 1530 92 31 104/58 75 99 04 1500 71 15 111/55 78 100 09/28 1430 73 15 141/66 93 100 09/28 1400 72 16 127/60 87 100 09/28 1330 73 18 129/60 86 100 09/28 1300 74 16 130/62 89 100 09/28 1230 79 18 128/61 88 100 09/28 1200 98 High flow 3.075660 nasal cannula 09/28 1200 74 16 126/58 84 100 09/28 1200 36.7 100 Nasal 3.499267 cannula 09/28 1130 83 20 142/62 89 100 09/28 1100 80 18 111/59 82 100 09/28 1030 82 27 102/72 84 95 09/28 1000 79 21 111/55 79 100 09/28 0930 81 24 108/54 78 100 09/28 0900 77 21 110/56 81 100 09/28 0830 73 21 119/57 82 100 09/28 0825 100 Nasal 3.279887 cannula 09/28 0800 Nasal 3.506027 cannula 09/28 0800 76 25 115/58 83 09/28 0800 36.4 100 Nasal 3.197314 cannula Laboratory Tests 09/29/19 1724: [Embedded Image Not Available] 09/29/19 1225: [Embedded Image Not Available] 09/29/19 0443: [Embedded Image Not Available] 09/28/19 2312: [Embedded Image Not Available] Laboratory Tests 09/28 09/28 09/28 09/28 09/28 1724 [...] (Auto) (14.0 - 32.0 %) 7.1 L [place] % (Auto) (4.8 - 9.0 %) 4.6 L Eos % (Auto) (0.3 - 3.7 %) 0.1 L Baso % (Auto) (0.0 - 2.0 %) 0.1 Neut # (Auto) (2.0 - 7.6 x10 3/uL) 11.76 H Lymph # (Auto) (1.0 - 3.8 x10 3/uL) 0.96 L K[place]haw # (Auto) (0.1 - 0.8 x10 3/uL) [...] <20 mg/dL) NEGATIVE - <20mg/dL Diagnosis, Assessment Plan Problem List/A P: 1. Antibiotic-associated diarrhea Free Text A P: Plan: Agree with rectal tube to prevent skin excoriation. Maintaion normal lytes. Check stool for c-diff also. If negative. Discontinue antibiotics as soon as it is no longer required. at 2002 RPT #:[id number] END OF REPORT [facility] 2019-09-29 13:57:00 [facility] ([facility] Hospitalist Progress Note REPORT#:[id number] REPORT STATUS: Signed DATE:09/29/19 TIME: 1357 PATIENT: MAC AGUSTIN UNIT #: [id number] ROOM/BED: [place] [address] : 47 AGE: 74 SEX: F ATTEND: Joel Myers MD ADM AUTHOR: Marisabel Chu DO * ALL edits or amendments must be made on the electronic/computer document * Subjective Chief Complaint: NO acute issues overnight per nursing. Review of Systems Unable to obtain due to: patient with severe dementia Objective General VS/I O: Vital Signs: Date Time Temp Pulse Resp B/P B/P Pulse O2 O2 Flow FiO2 Mean Ox Delivery Rate 09/28 1300 74 16 130/62 89 100 09/28 1230 79 18 128/61 88 100 09/28 1200 74 16 126/58 84 100 09/28 1200 98.1 100 Nasal 3.543812 cannula 09/28 1130 83 20 142/62 89 100 09/28 1100 80 18 111/59 82 100 04/ 1030 82 27 102/72 84 95 04/ 1000 79 21 111/55 79 100 04/ 0930 81 24 108/54 78 100 04/ 0900 77 21 110/56 81 100 / 0830 73 21 119/57 82 100 / 0825 100 Nasal 3.624883 cannula 09/28 0800 Nasal 3.119886 cannula 09/28 0800 76 25 115/58 83 09/28 0800 97.5 100 Nasal 3.892107 cannula 09/28 0730 83 26 113/55 79 100 04/ 0700 83 26 116/55 79 100 04/ 0200 77 23 121/64 84 100 / 0100 75 17 132/60 87 100 09/28 0000 98.0 09/28 0000 74 15 114/59 84 100 09/27 2300 73 16 120/59 83 100 09/27 2200 78 20 115/54 78 100 04/ 2101 94 26 105/58 75 99 09/28 1999 High flow 5.098891 nasal cannula 09/27 2000 83 23 100/57 72 100 09/27 1930 97.3 09/27 1900 90 30 93/51 67 99 09/27 1831 88 31 98/47 58 99 09/27 1801 91 26 109/51 74 100 09/27 1730 72 18 102/56 76 100 09/27 1700 71 18 101/50 72 100 09/27 1630 70 13 101/55 73 100 09/27 1600 99 High flow 5.763090 nasal cannula 09/27 1600 74 15 109/58 81 100 09/27 1600 97.5 100 High flow 10.199555 nasal cannula 09/27 1530 69 14 105/58 [...] Urine 500 275 Patient Weight Weight (lb): 139 Weight (oz): 12.37 Weight (kg): 63.400 Medications: Active Meds + DC'd Last 24 Hrs Insulin Human Lispro 0 AC HS SUBQ [...] ONE PO (DC) Dextrose/Sodium Chloride 1,000 ML .[id number] IV (DC) Vancomycin HCl 1,000 MG DIALYSIS-DOSE AFTER IV (CKD) Sodium Chloride 250 ML Furosemide 40 MG ONCE ONE IV (DC) Morphine Sulfate 2 MG Q4H PRN PRN IV Acetaminophen 650 MG Q4H PRN PRN PO Sodium Bicarbonate 75 ML Q10H IV (DC) Dextrose/Sodium Chloride 1,000 ML Dextrose/Water 50 ML ASDIR PRN IV (DC) Dextrose/Water 1,000 ML ASDIR IV (DC) Insulin Human Regular 100 UNIT ASDIR IV (DC) Sodium Chloride 99 ML Magnesium Sulfate 50 ML ASDIR PRN IV (DC) Magnesium Sulfate 100 ML ASDIR PRN IV (DC) Potassium Chloride 100 ML ASDIR PRN IV (DC) Potassium Phosphate 15 MM ASDIR PRN IV (DC) Sodium Chloride 250 ML Heparin Sodium 5,000 UNIT Q12HR SUBQ Piperacillin Sod/Tazobactam Sod 3.375 GM Q12H IV Sodium Chloride 100 ML Phenylephrine HCl 30 MG ASDIR IV (CKD) Sodium Chloride 247 ML Sodium Chloride 500 ML ONCE ONE IV Vasopressin 20 UNIT ASDIR IV (CKD) Sodium Chloride 100 ML Miscellaneous Information 1 EACH ASDIR IV (CKD) Albumin Human 12.5 GM ASDIR PRN IV Heparin Sodium (Porcine) 1,000 UNIT ASDIR PRN DIALYSIS Mannitol 12.5 GM ASDIR PRN IV Sodium Chloride 2,000 ML ASDIR PRN IV Sodium Chloride 10 ML ASDIR PRN IV Sodium Chloride 250 ML ASDIR PRN IV Norepinephrine Bitartrate 250 ML ASDIR PRN IV Sodium Chloride 0 ASDIR PRN IV Physical Exam General appearance: awake, no acute distress, no respiratory distress Head/Eyes: atraumatic, normocephalic ENT: moist mucosal membranes Neck: no JVD, no masses or swelling Cardiovascular: normal heart sounds, regular rate rhythm Respiratory: aerating well, clear to auscultation, no distress, no rales appreciated on anterior exam Abdomen: soft, no distention, no guarding, no rebound Genitourinary: no bladder distention Extremities: edema (bLE +1), no clubbing, no cyanosis Musculoskeletal: normal inspection Neuro/BACK SHOE WORKER: no motor deficits Skin: dry, intact, normal color, normal temperature, no rash Psychiatry: normal affect, normal mood Results Findings/Data: Laboratory Tests 09/28 09/28 09/28 09/28 09/28 [...] (Auto) (14.0 - 32.0 %) 7.1 L [place] % (Auto) (4.8 - 9.0 %) 4.6 L Eos % (Auto) (0.3 - 3.7 %) 0.1 L Baso % (Auto) (0.0 - 2.0 %) 0.1 Neut # (Auto) (2.0 - 7.6 x10 3/uL) 11.76 H Lymph # (Auto) (1.0 - 3.8 x10 3/uL) 0.96 L [place] # (Auto) (0.1 - 0.8 x10 3/uL) [...] - <20 mg/dL) NEGATIVE - <20mg/dL Radiology data: Recent Impressions: RADIOLOGY - XR CHEST 1 V 09/28 0541 Report Impression - Status: SIGNED Entered: 09/29/2019 0712 IMPRESSION: 1. Severe pulmonary vascular congestion and or pulmonary edema with developing moderate bilateral layering pleural effusions. 2. Developing dense left retrocardiac opacity, probably representing atelectasis or early consolidation. 3. Enlarged cardiac silhouette. SL: [id number] Impression By: [email or web address] - Scott Duran M.D. Diagnosis, Assessment Plan Free Text DxA P Notes Free text DxA P notes: Severe lactic acidosis Severe metabolic acidosis Acute renal failure Hypocalcemia Hypomagnesemia ?Septic shock vs lactic acidosis from metformin Dehydration Hypothermia DM HTN Dementia with behavior disturbance Plan: Ms. Agustin is a 74 yo female with non-specific symptoms of not feeling well, poor appetite that was found to have abnormal labs at [place], sent to ED for evaluation. In the [...] ischemic bowel. Will continue empiric Zosyn. - Zosyn - blood cultures pending - hold home meds - Accuchecks and SSI - replace electrolytes - heparin for DVT prophylaxsis 09/26 Improved lactic acidosis with dialysis. Given improvement, likely [...] life, not a good candidate for work up/treatment. BS well controlled with current insulin schedule Check labs in am 09/27 Lactate remains normal, continue to hold metformin Pt noted return of anion gap acidosis with ketonuria. Discussed with Dr. Aguilar , nephrology. Pt placed on DKA protocol to close anion gap, on D10 for glucose needs while on insulin drip. BNP elevated with clear lungs, no dependent edema, decreased O2 requirement. Give one dose of Lasix 40 mg IV, check CXR in the am, monitor for volume overload while getting DKA fluids. WBC decreased to 15, continue abx for now, d/c after 5 days Some blood noted in stool, CT with signs of chronic inflammation. Given her dementia, unsure that patient would tolerate bowel prep. GI consulted. Appreciate input on area in stomach with possible neoplasm. Check labs in am 09/28 Anion gap closed, off insulin drip Elevated lactate, monitor CXR shows severe vascular congestion and pleural fluid, likely related to fluids given for lactic acidosis and metabolic acidosis, pt not in respiratory distress - Lasix 60 mg IV q8 iniated by nephrology - D10 at 30 cc/hr to maintain blood sugar WBC decreased to 13, d/c abx after 5 days Colon with chronic inflammation, no work up per GI Will need EGD to evaluate abnormality in gastric wall once improved Check labs in am at 1403 RPT #:[id number] END OF REPORT [facility] 2019-09-29 10:19:00 [facility] ([facility]) Critical Care Progress Note REPORT#:[id number] REPORT STATUS: Signed DATE:09/29/19 TIME: 1019 PATIENT: MAC AGUSTIN UNIT #: [id number] ROOM[address]BED: [address] : [address] AGE: 74 SEX: F ATTEND: Joel Myers MD ADM AUTHOR: Helga Escalante NP * ALL edits or amendments must be made on the electronic/computer document * Subjective Chief Complaint: lethargic denies pain HPI: A 74 y/o female with past medical history [...] in urine and positive serum acetone. She was started on an insulin gtt. Review of Systems ROS Respiratory: Denies: SOB. Cardiovascular: Denies: chest pain. GI: Denies: abdominal pain, nausea. Musculoskeletal: other (back pain). Denies: extremity pain. All systems rev neg: except as marked Objective General VS/I O Last Documented: Result Date Time Pulse Ox 100 09/28 1630 B/P 114/55 09/28 1630 B/P Mean 79 09/28 1630 Pulse 66 09/28 1630 Resp 13 09/28 1630 O2 Delivery Nasal cannula 09/28 1600 O2 Flow Rate 3.234389 09/28 1600 Temp 98.1 09/28 1600 24 hour I O ending at 0700: 09/28 0700 09/27 1900 Intake Total 1761.00 2341.00 Output Total 500 275 Balance 1261.00 2066.00 Intake, IV 1761.00 1841.00 Intake, Oral 500 Number 0 3 Bowel Movements Output, Urine 500 275 Medications: Active Meds + DC'd Last 24 Hrs Zinc Oxide 1 APPLIC BID TOPICAL Lidocaine [...] ONE PO (DC) Dextrose/Sodium Chloride 1,000 ML .[id number] IV (DC) Vancomycin HCl 1,000 MG DIALYSIS-DOSE AFTER IV (CKD) Sodium Chloride 250 ML Morphine Sulfate 2 MG Q4H PRN PRN IV Acetaminophen 650 MG Q4H PRN PRN PO Sodium Bicarbonate 75 ML Q10H IV (DC) Dextrose/Sodium Chloride 1,000 ML Dextrose/Water 50 ML ASDIR PRN IV (DC) Dextrose/Water 1,000 ML ASDIR IV (DC) Insulin Human Regular 100 UNIT ASDIR IV (DC) Sodium Chloride 99 ML Magnesium Sulfate 50 ML ASDIR PRN IV (DC) Magnesium Sulfate 100 ML ASDIR PRN IV (DC) Potassium Chloride 100 ML ASDIR PRN IV (DC) Potassium Phosphate 15 MM ASDIR PRN IV (DC) Sodium Chloride 250 ML Heparin Sodium 5,000 UNIT Q12HR SUBQ Piperacillin Sod/Tazobactam Sod 3.375 GM Q12H IV Sodium Chloride 100 ML Phenylephrine HCl 30 MG ASDIR IV (CKD) Sodium Chloride 247 ML Sodium Chloride 500 ML ONCE ONE IV Vasopressin 20 UNIT ASDIR IV (CKD) Sodium Chloride 100 ML Miscellaneous Information 1 EACH ASDIR IV (CKD) Albumin Human 12.5 GM ASDIR PRN IV Heparin Sodium (Porcine) 1,000 UNIT ASDIR PRN DIALYSIS Mannitol 12.5 GM ASDIR PRN IV Sodium Chloride 2,000 ML ASDIR PRN IV Sodium Chloride 10 ML ASDIR PRN IV Sodium Chloride 250 ML ASDIR PRN IV Norepinephrine Bitartrate 250 ML ASDIR PRN IV Sodium Chloride 0 ASDIR PRN IV Physical Exam General appearance: sleeping comfortably Head/Eyes: atraumatic, normocephalic, PERRL ENT: dry mucosal membrane, normal nose Neck: normal thyroid, no JVD, no lymphadenopathy, no masses or swelling Cardiovascular: normal heart sounds, normal S1 S2, no rub, no gallop Respiratory/Chest: on oxygen, rhonchi, clear to auscultation, symmetric expansion, no tenderness, dyspnea, tachypnea Gastrointestinal: poor po intake Abdomen: soft, non-tender, normal bowel sounds, no distention, no guarding, no mass/organomegaly Genitourinary: ballard Extremities: no calf tenderness, no cyanosis, no edema, no pedal edema Musculoskeletal: decreased ROM Neuro/BACK SHOE WORKER: no sensory deficits Skin: dry, intact, normal color, normal temperature Psychiatry: unable to evaluate Results Findings/Data: Laboratory Tests 09/29/19 0443: [Embedded Image Not Available] 09/28/19 2312: [Embedded Image Not Available] 09/28/19 1804: [Embedded Image Not Available] 09/28/19 1044: [Embedded Image Not Available] Laboratory Tests 09/27 1147 Blood Gas Puncture [...] 2.00 B-Natriuretic Peptide (0 - 100 546.7 H PG/ML) 09/28 09/27 09/27 09/27 09/27 0136 2314 [...] (Auto) (14.0 - 32.0 %) 7.1 L Kershaw % (Auto) (4.8 - 9.0 %) 4.6 L Eos % (Auto) (0.3 - 3.7 %) 0.1 L Baso % (Auto) (0.0 - 2.0 %) 0.1 Neut # (Auto) (2.0 - 7.6 x10 3/uL) 11.76 H Lymph # (Auto) (1.0 - 3.8 x10 3/uL) 0.96 L Kershaw # (Auto) (0.1 - 0.8 x10 3/uL) [...] pH (5.0 - 7.0) 5.0 Ur Specific [place] (1.005 - 1.030) 1.006 Urine Protein (NEGATIVE) [...] Urine Mucus (NONE SEEN /LPF) TRACE Radiology data Recent Impressions: RADIOLOGY - XR CHEST 1 V 09/28 540 Report Impression - Status: SIGNED Entered: 09/29/2019 0712 IMPRESSION: 1. Severe pulmonary vascular congestion and or pulmonary edema with developing moderate bilateral layering pleural effusions. 2. Developing dense left retrocardiac opacity, probably representing atelectasis or early consolidation. 3. Enlarged cardiac silhouette. SL: [id number] Impression By: [email or web address] - Scott Duran M.D. Results: labs reviewed, vital signs stable, current med profile rev'd Diagnosis, Assessment Plan Problem list/A P: 1. Lactic acidosis 2. Acute renal failure 3. DKA (diabetic ketoacidoses) 4. Gastric distention 5. Metabolic acidosis Free text A P: 09/27/2019 Severe lactic acidosis, secondary to metformin use?, Case discussed with nephrology extensively. Hemodialysis catheter was placed yesterday, the patient had a hemodialysis yesterday, and plan is to do hemodialysis today Acidosis improved, also the lactic acid has been trending down. Monitor electrolytes, monitor lactate. Plan is to replace electrolytes during hemodialysis Shortness of breath is better, patient currently on nasal cannula, keep O2 sats more than 90% Sepsis?, Source?, Continue Zosyn and vancomycin IV for now, MRSA screen came back positive, blood cultures are no growth today. White blood cell count is 19.7 Continue heparin for DVT prophylaxis Keep map more than 65 mmhg, currently patient is on Levophed and vasopressin drip, will try to wean pressors if possible. Continue sliding scale insulin, monitor glucose We will see if she can swallow today to see if we can start diet Bicarb drip has been stopped, acidemia resolving She is DNR/DNI Critical care time 31 minutes Plan of Care 09/28/19 NEURO H/O dementia with behavior disturbance and anxiety disorder. Begin home meds when cleared to take PO. Add Tylenol prn for pain, and adjust as needed. CV Hypotension-resolved. Off pressors. PULM Hypoxemia improving- tolerating 5L [place]. p02 on ABG this am is 136, wean O2 as tolerated. GI Advance diet as tolerated. General Sx consult for questionable pnemoperitoneum- no intervention required at this time. CT Abdomen shows diffuse colonic wall thickening and moderately dilated stomach-GI consult placed. RENAL Metformin induced lactic acidosis-Nephrology following and managing HD. On Bicarb gtt, Bicarb this AM 16 on BMP and AG increased from 19->27. Lactic acid 1.2. BUN 14 Crea 1.2 stable. ENDO Repeat UA shows 2+ ketones and serum acetone+. Started on insulin gtt per nephrology. Serial BMP and repeat serum acetone in AM. HEME Anemia-H/H stable 8.4. Plt count 99 this AM. No signs of bleeding. Transfuse if Hgb <7. ID Leukocytosis improving WBC 15.02. Continue broad spectrum antibiotics with Vanco /Zosyn. MRSA nares positive, Blood cx negative x 48hours. MSK PT/OT to evaluate and treat when medically stable. PROPHYLAXIS SCDs/heparin/ DISPO Monitor closely in the ICU. CM for discharge planning. 09/29/19 NEURO H/O dementia with behavior disturbance and anxiety disorder. Begin home meds when cleared to take PO. Add Tylenol prn for pain, and adjust as needed. Lidocaine patch for c/o back pain. CV Hypotension-resolved. Off pressors. PULM Hypoxemia improving- tolerating NC. BNP 546.7. CXR shows severe vascular congestion. Lasix IV Q8 ordered per nephrology. Will repeat CXR in AM. GI Advance diet as tolerated. General Sx consult for questionable pnemoperitoneum- no intervention required at this time. CT Abdomen shows diffuse colonic wall thickening and moderately dilated stomach-GI consult placed, patient will need upper endoscopy to evaluate gastric distention once medically stable. Dietary consult placed for poor po intake. Started on Protonix for h/o H.pylori, due to poor PO intake, will have to give IV for now. RENAL BUN 19 Crea 2.1 stable. AG closed 10. Insulin gtt discontinued and started on D10 for poor po intake. Start insulin sliding scale and adjust as needed.Replete electrolytes as needed. ENDO HgbA1C 6. AG closed, insulin gtt discontinued and started on ss-adjust as needed. HEME Anemia-H/H stable 7.8. Plt count 81 this AM - monitor closely, may need to hold Heparin if continues to drop. Per RN, multiple BMs with blood streak/mucus noted. Transfuse if Hgb <7. ID Leukocytosis improving WBC 13.57. Continue broad spectrum antibiotics with Vanco /Zosyn. MRSA nares positive, Blood cx negative x 48hours. MSK PT/OT to evaluate and treat when medically stable. PROPHYLAXIS SCDs/heparin/ DISPO Monitor closely in the ICU. CM for discharge planning. Consultants: gastroenterology, nephrology at 1809 RPT #:[id number] END OF REPORT [facility] 2019-09-29 07:18:00 [facility] ([facility]) Nephrology Progress Note REPORT#:[id number] REPORT STATUS: Signed DATE:09/29/19 TIME: 717 PATIENT: MAC AGUSTIN UNIT #: [id number] ROOM/BED: [place] [address] : 47 AGE: 74 SEX: F ATTEND: Joel Myers MD ADM AUTHOR: Rabia Aguilar MD * ALL edits or amendments must be made on the electronic/computer document * Subjective Chief Complaint: AMS/Lactic acidosis/NATHEN Unable to obtain: patient condition Comments: Patient seen and evaluated, HPI no change from initial, Alert Review of Systems Unable to obtain due to: Dementia Objective General VS/I O: Vital Signs: Date Time Temp Pulse Resp [...] 105/58 75 99 09/27 2000 High flow 5.704265 nasal cannula 09/27 2000 83 23 100/57 72 100 09/27 1930 36.3 09/27 1900 90 30 93/51 67 99 09/27 1831 88 31 98/47 58 99 09/27 1801 91 26 109/51 74 100 09/27 1730 72 18 102/56 76 100 09/27 1700 71 18 101/50 72 100 09/27 1630 70 13 101/55 73 100 09/27 1600 99 High flow 5.420200 nasal cannula 09/27 1600 74 15 109/58 81 100 09/27 1600 36.4 100 High flow 10.528706 nasal cannula 09/27 1530 69 14 105/58 78 100 09/27 1500 91 28 106/54 75 100 09/27 1430 80 21 95/50 66 99 09/27 1400 74 13 101/56 76 100 09/27 1330 81 19 101/53 73 100 04/ 1300 74 15 109/54 78 100 04 1230 82 20 105/58 78 100 04/ 1200 100 High flow 5.350105 nasal cannula 09/27 1200 36.4 100 High flow 10.526231 nasal cannula 09/27 1200 87 21 105/56 76 100 04/18 1130 77 18 105/70 82 100 04/ 1100 76 20 114/53 77 100 / 1030 76 17 111/56 80 100 04/18 1000 68 12 92/53 69 100 04/18 0930 80 16 109/57 79 100 04/18 0900 78 15 108/56 75 100 04/ 0830 81 17 105/55 79 100 04/ 0800 High flow 10.998244 nasal cannula 09/27 0800 36.2 100 High flow 10.952450 nasal cannula 09/27 0800 36.2 100 High flow 10.250612 nasal cannula 09/27 0800 87 21 95/52 69 100 09/27 0730 87 21 93/55 72 100 24 hour I O ending at 0700: 09/28 0700 09/27 1900 Intake Total 1761.00 2341.00 Output Total 500 275 Balance 1261.00 2066.00 Intake, IV 1761.00 1841.00 Intake, Oral 500 Number 0 3 Bowel Movements Output, Urine 500 275 Medications Active Meds + DC'd Last 24 Hrs Vancomycin HCl 1,000 MG DIALYSIS-DOSE AFTER IV (CKD) Sodium Chloride 250 ML Furosemide 40 MG ONCE ONE IV (DC) Morphine Sulfate 2 MG Q4H PRN PRN IV Acetaminophen 650 MG Q4H PRN PRN PO Sodium Bicarbonate 75 ML Q10H IV (CKD) Dextrose/Sodium Chloride 1,000 ML Dextrose/Water 50 ML ASDIR PRN IV Dextrose/Water 1,000 ML ASDIR IV Insulin Human Regular 100 UNIT ASDIR IV (CKD) Sodium Chloride 99 ML Magnesium Sulfate 50 ML ASDIR PRN IV Magnesium Sulfate 100 ML ASDIR PRN IV Potassium Chloride 100 ML ASDIR PRN IV Potassium Chloride 100 ML ONCE ONE IV (DC) Potassium Phosphate 15 MM ASDIR PRN IV Sodium Chloride 250 ML Potassium Chloride 100 ML ONCE ONE IV (DC) Vancomycin HCl 1,000 MG ONCE ONE IV (DC) Sodium Chloride 250 ML Sodium Bicarbonate 75 ML .[id number] IV (DC) Sodium Chloride 1,000 ML Heparin Sodium 5,000 UNIT Q12HR SUBQ Piperacillin Sod/Tazobactam Sod 3.375 GM Q12H IV Sodium Chloride 100 ML Phenylephrine HCl 30 MG ASDIR IV (CKD) Sodium Chloride 247 ML Sodium Chloride 500 ML ONCE ONE IV Insulin Human Lispro 0 Q6HR SUBQ (DC) Vasopressin 20 UNIT ASDIR IV (CKD) Sodium Chloride 100 ML Miscellaneous Information 1 EACH ASDIR IV (CKD) Albumin Human 12.5 GM ASDIR PRN IV Heparin Sodium (Porcine) 1,000 UNIT ASDIR PRN DIALYSIS Mannitol 12.5 GM ASDIR PRN IV Sodium Chloride 2,000 ML ASDIR PRN IV Sodium Chloride 10 ML ASDIR PRN IV Sodium Chloride 250 ML ASDIR PRN IV Norepinephrine Bitartrate 250 ML ASDIR PRN IV Sodium Chloride 0 ASDIR PRN IV Physical Exam General appearance: alert, no acute distress Head/eyes: atraumatic, normocephalic ENT: normal nose Neck: supple/no meningismus Cardiovascular: normal heart sounds, no rub Respiratory: aerating well, symmetric expansion Abdomen: soft Genitourinary: ballard, urine Extremities: no edema Musculoskeletal: normal inspection Neuro/BACK SHOE WORKER: altered mental status Skin: dry Results Findings/Data: Laboratory Tests 09/27 09/26 09/26 09/25 09/25 1147 0956 0238 1732 1509 Blood Gas Puncture Site R Rad L [...] 09/26 09/26 09/26 0515 0500 0115 0115 0013 Chemistry Sodium (134 - 147 mEq/L) 143 143 [...] Jefry (1.12 - 1.32 0.99 L 0.96 L MMOL/L) Phosphorus (2.5 - 4.9 MG/DL) 3.9 2.3 L Magnesium (1.8 - 2.4 mg/dL) 2.50 H 2.50 H 09/25 09/25 09/25 09/25 09/25 2145 2145 2145 2145 1827 Chemistry Sodium (134 - 147 mEq/L) 142 [...] Calcium Jefry (1.12 - 1.32 0.96 L MMOL/L) Phosphorus (2.5 - 4.9 MG/DL) 1.6 L Magnesium (1.8 - 2.4 mg/dL) 2.40 Troponin I (0.000 - 0.045 ng/mL) 0.284 *H LDL Cholesterol Measurd (0 - 100 67 mg/dL) 09/25 09/25 1655 1655 Chemistry Sodium (134 [...] - 32.0 %) 7.1 L 6.5 L [place] % (Auto) (4.8 - 9.0 %) 4.6 L 7.5 Eos % (Auto) (0.3 - 3.7 %) 0.1 L 0.1 L Baso % (Auto) (0.0 - 2.0 %) 0.1 0.1 Neut # (Auto) (2.0 - 7.6 x10 3/uL) 11.76 H 12.84 H Lymph # (Auto) (1.0 - 3.8 x10 3/uL) 0.96 L 0.97 L [place] # (Auto) (0.1 - 0.8 x10 3/uL) [...] (Auto) (14.0 - 32.0 %) 4.9 L [place] % (Auto) (4.8 - 9.0 %) 9.3 H Eos % (Auto) (0.3 - 3.7 %) 0.0 L Baso % (Auto) (0.0 - 2.0 %) 0.1 Neut # (Auto) (2.0 - 7.6 x10 3/uL) 15.30 H Lymph # (Auto) (1.0 - 3.8 x10 3/uL) 0.89 L Kershaw # (Auto) (0.1 - 0.8 x10 3/uL) [...] - 32.0 %) 2.8 L 4.8 L Kershaw % (Auto) (4.8 - 9.0 %) 6.5 3.2 L Eos % (Auto) (0.3 - 3.7 %) 1.1 0.1 L Baso % (Auto) (0.0 - 2.0 %) 0.2 0.1 Neut # (Auto) (2.0 - 7.6 x10 3/uL) 19.09 H 19.89 H Lymph # (Auto) (1.0 - 3.8 x10 3/uL) 0.61 L 1.06 Kershaw # (Auto) (0.1 - 0.8 x10 3/uL) [...] pH (5.0 - 7.0) 5.0 Ur Specific [place] (1.005 - 1.030) 1.006 Urine Protein (NEGATIVE) [...] Urine Mucus (NONE SEEN /LPF) TRACE Recent Impressions: RADIOLOGY - XR CHEST 1 V 09/28 0541 Report Impression - Status: SIGNED Entered: 09/29/2019 0712 IMPRESSION: 1. Severe pulmonary vascular congestion and or pulmonary edema with developing moderate bilateral layering pleural effusions. 2. Developing dense left retrocardiac opacity, probably representing atelectasis or early consolidation. 3. Enlarged cardiac silhouette. SL: [id number] Impression By: [email or web address] - Scott Duran M.D. Laboratory [...] (Auto) (14.0 - 32.0 %) 7.1 L Kershaw % (Auto) (4.8 - 9.0 %) 4.6 L Eos % (Auto) (0.3 - 3.7 %) 0.1 L Baso % (Auto) (0.0 - 2.0 %) 0.1 Neut # (Auto) (2.0 - 7.6 x10 3/uL) 11.76 H Lymph # (Auto) (1.0 - 3.8 x10 3/uL) 0.96 L Kershaw # (Auto) (0.1 - 0.8 x10 3/uL) [...] pH (5.0 - 7.0) 5.0 Ur Specific [place] (1.005 - 1.030) 1.006 Urine Protein (NEGATIVE) [...] /LPF) TRACE Diagnosis, Assessment Plan Free Text A P: Patient seen and evaluated, discussed with care team, images and laboratories reviewed. History of dementia History of rheumatoid arthritis History of frequent falls History of frequent UTIs History of hypertension: Currently hypotensive Hypokalemia: We will supplement Severe hypomagnesemia we will supplement Hypocalcemia: We will supplement Hypoalbuminemia Severe lactic acidosis: Etiology, could be related to septic shock, however source is unclear, rule out ischemic bowel, Fito, will need to review her medications if patient has been on metformin, lactic acidosis due to metformin in the setting of acute renal failure is a possibility and will do hemodialysis in the setting. Patient has been taking Metformin 1000 BID, kenneth has lactic acidosis that is induced by Metformin, discussed with deysi and ICC/Primary team will proceed with HD 09/27/2019 mental status a lot better, hemodynamically more stable, pressors being weaned off, received 6 hours of hemodialysis yesterday, her last set of blood gas showed a pH of 7.40, PCO2 25, PO2 55, lactic acid 6.2 improving, sodium is 143 potassium 3.6 CO2 20 chloride 101 BUN 13 creatinine 1.1, hemoglobin this morning 9.7, white blood count 19.78 trending down, platelet 156 , her clinical picture is consistent with metformin induced lactic acidosis, will do another session of hemodialysis, 4 hours, potassium 3.5, no ultrafiltration, will give 20 mmol of potassium phosphate and expectation of hypophosphatemia during hemodialysis. katie and evaluated during HD, discussed with RN and HD nurse 09/28/2019 laboratories from this morning showed sodium 144, potassium 3.3 we will give KCl 20 mEq IV x1, chloride 104, bicarbonate 16, creatinine 1.2, lactic acid 1.2, hemoglobin 8.4, white blood count 15.2, blood culture still negative, anion gap today is 24 with a normal lactic acid etiology unclear will repeat BMP , repeat lactic acid and order serum acetone and do urinalysis to check for urine ketones, also will do a blood gas. Ketones came back as large, This is kenneth starvation ketoacidosis that has been exacerbated by gluconeogenesis inhibition by Metformin and has been reported in the literature, will start Glucose and insulin drip 09/29/2019 laboratories from this morning showed sodium 142, [...] afternoon, her creatinine is 2.2, not sure what her baseline creatinine, her creatinine is relatively stable since yesterday, will monitor closely, hemoglobin is 7.8, white blood count 13.57 improving. at 1335 [facility] #:[id number] END OF REPORT [facility] 2019-09-28 20:32:00 [id number] [place] [address] PATIENT NAME: MAC AGUSTIN ADMIT DATE: 09/26/19 ACCOUNT NO: [id number] ROOM NO: [id number] AGE: 74 REPORT TYPE: CONSULTATION REPORT SEX: F ADMITTING PHYSICIAN:Joel Myers MD ATTENDING PHYSICIAN:Joel Myers MD CONSULTATION DATE: 09/28/2019 CONSULTING PHYSICIAN: Cam Delgadillo MD GASTROENTEROLOGY CONSULTATION NOTE CONSULTING PHYSICIAN: Joel Myers MD REASON FOR CONSULTATION: Abnormal CT scan. HISTORY OF PRESENT ILLNESS: A 74-year-old female with advanced dementia, correction resident, type 2 diabetes, hypertension, and chronic pain, who got transferred from correction because she had not been eating or drinking well for last few days. In the Emergency Room, a workup revealed severe metabolic acidosis, renal failure, electrolyte disbalance, lactic acidosis, hypothermia. She got admitted in the ICU for further evaluation and management. In the ICU, she is also getting temporary dialysis. Currently, on clear liquid diet. Having liquidy greenish bowel movements. CT scan of the abdomen and pelvis without contrast was performed for evaluation of possible underlying sepsis, possible pneumoperitoneum based upon prior chest x-rays. CT, however, did not reveal any pneumoperitoneum, but did show some diffuse mild colonic wall thickening that could be due to underlying colitis versus under distention. It also showed a cologastric wall thickening, dilated stomach. I cannot derive any history from the patient. Most of my information is derived from the medical chart. REVIEW OF SYSTEMS: Unobtainable. PAST MEDICAL HISTORY: Rheumatoid arthritis, Alzheimer's dementia; type 2 diabetes, hypertension, chronic pain syndrome, recurrent UTI, incontinent bladder, migraine, frequent falls. PAST SURGICAL HISTORY: Not documented and it is also noncontributory. FAMILY HISTORY: Noncontributory. SOCIAL HISTORY: A correction resident. No smoking, alcohol, or any illicit drug use. ALLERGIES: PENICILLAMINE. HOME MEDICATIONS: Glucophage, Seroquel, Tylenol, BuSpar, Aricept. PATIENT NAME: MAC AGUSTIN INPATIENT MEDICATIONS: List is reviewed. The patient is getting intravenous vancomycin, intravenous piperacillin/tazobactam along with other medications. PHYSICAL EXAMINATION: VITAL SIGNS: Temperature 97.3, pulse 88, respirations 26 to 31, blood pressure 98/47 to 109/51, oxygen saturation 99% on nasal cannula. GENERAL: Awake, but not oriented to time or place. HEENT: Oral mucosa is moist. Anicteric sclerae. CARDIOVASCULAR: S1, S2 regular. LUNGS: Bilaterally grossly clear, decreased breath sound at bases. ABDOMEN: Soft, nondistended, and nontender. No palpable mass or hernia. Bowel sounds present. EXTREMITIES: Warm. Trace leg edema. LABORATORY DATA: Sodium 142, potassium 3.3, chloride 104, bicarb 22, BUN 20, creatinine 1.9, and glucose is 153. Phosphorus is low to 2.2, magnesium 2.10. Lactic acid was 14.8, has trended down to 1.3 now. Urinalysis showed wbc's more than more than 50. WBC 15.02, which is down from 18.06, hemoglobin 8.4, hematocrit 26.2, MCV 93.1, platelet count 99. Blood culture, no growth after 48 hours. DIAGNOSTIC DATA: CT scan of the abdomen and pelvis without contrast showed a nonspecific nonobstructive bowel gas pattern associated with mild diffuse colonic wall thickening either related to under distention or nonspecific colitis. Mild submucosal fat seen in the colon, suggests: 1. colonic inflammatory changes. Mild sigmoid diverticulosis. 2. Moderately dilated stomach with areas of asymmetric wall thickening in the antrum and gastric curvature that may represent gastritis or underlying neoplasm. Followup with upper endoscopy will be helpful. Additionally, a radionuclide gastric emptying study may be helpful if gastroparesis is suspected clinically. 3. Mild left renal cortical atrophy associated with small mildly complex cyst. Further evaluation may be obtained with a renal ultrasound. 4. Tiny focus of gas in the urinary bladder may represent recent catheterization or fistula with bowel. 5. Mild diffuse anasarca. 6. Normal-sized heart associated with moderate coronary artery calcification. 7. Mild hyperinflation associated with subsegmental atelectasis and scarring in both lungs, greatest in the lung bases. 8. Gvfd-of-axcpuwnb abdominal aortic atherosclerosis associated with infrarenal aneurysm measuring 3.1 cm in maximum transverse dimension. 9. Mild soft tissue gas in the right anterior abdominal and pelvic wall, likely related to recent medical injection. 10. Postoperative changes of cholecystectomy. IMPRESSION: A 74-year-old female with a host of comorbidities, especially advanced dementia, presented with failure to thrive kind of situation, labs were significantly abnormal with electrolyte disbalance, acute renal failure, metabolic acidosis and underlying sepsis from urinary tract infection. UTI is being treated with IV antibiotic. She is responding. The CT finding of colonic wall thickening as well as gastric distention with gastric wall thickening is an incidental finding. PATIENT NAME: MAC AGUSTIN PLAN: 1. Colonic wall thickening is not concerning. This diffuse colonic wall edema could be due to underlying sepsis and hypoalbuminemia. This does not warrant any further investigation at this time. It seems to be self-limiting. 2. Gastric distention, gastric wall thickening certainly needs further evaluation with direct visualization. Therefore, upper endoscopy should be considered when the patient is medically stable and has recovered well from her current acute illness. We will continue to monitor her clinically. I thank Dr. Myers for allowing me to participate in the care of this patient. Dictated By: Cam Delgadillo MD WT: CON:DELON/MALIK. Conf#: [id number]/DID#: [id number] Authenticated and Edited by Cam Delgadillo MD On 09/30/19 11:28:58 PM at 2332 PATIENT NAME: MAC AGUSTIN [facility] 2019-09-28 14:03:00 [facility] Hospitalist Progress Note REPORT#:[id number] REPORT STATUS: Signed DATE:09/28/19 TIME: 1403 PATIENT: MAC AGUSTIN UNIT #: [id number] ROOM/BED: [place] [address] : 47 AGE: 74 SEX: F ATTEND: Joel Myers MD ADM AUTHOR: Marisabel Chu DO * ALL edits or amendments must be made on the electronic/computer document * Subjective Chief Complaint: Nurse notes mucus/blood tinged BM this am. On less oxygen today. Resting comfortably. Review of Systems Unable to obtain due to: dementia, only says "no" Objective General VS/I O: Vital Signs: Date Time Temp Pulse Resp [...] 04/18 0900 78 15 108/56 75 100 04/18 0830 81 17 105/55 79 100 04/18 0800 97.1 100 High flow 10.609816 nasal cannula / 0800 87 21 95/52 [...] / 2330 77 19 106/53 76 100 04/ 2300 78 17 113/51 74 100 / 2230 75 16 101/53 74 100 / 2200 81 16 102/54 74 100 / 2130 83 16 95/55 68 100 09/26 2100 78 16 112/57 77 99 / 2030 73 18 89/51 64 97 09/27 1999 97.7 09/27 1999 High flow 10.526910 nasal cannula 09/27 1999 77 16 104/57 76 99 / 1930 75 14 101/52 73 100 09/26 1920 100 High flow 10.648508 nasal cannula 09/26 1900 79 17 106/51 [...] 105/57 77 09/26 1600 97.5 High flow 10.491380 nasal cannula 09/26 1600 86 19 98/56 [...] 09/26 1416 81 21 99/51 71 100 04/17 1414 87 27 81 96 24 hour I O ending at 0700: 09/27 0700 09/26 1900 Intake Total 1195.00 1108.00 Output Total 200 170 Balance 995.00 938.00 Intake, IV 1195.00 1058.00 Intake, Oral 50 Number 0 1 Bowel Movements Output, 0 Hemodialysis Output, Urine 200 170 Patient 63.4 kg Weight Patient Weight Weight (lb): 139 Weight (oz): 12.37 Weight (kg): 63.400 Medications: Active Meds + DC'd Last 24 Hrs Vancomycin HCl 1,000 MG DIALYSIS-DOSE AFTER IV (CKD) Sodium Chloride 250 ML Furosemide 40 MG ONCE ONE IV (UNV) Morphine Sulfate 2 MG Q4H PRN PRN IV (UNV) Acetaminophen 650 MG Q4H PRN PRN PO Sodium Bicarbonate 75 ML Q10H IV (CKD) Dextrose/Sodium Chloride 1,000 ML Dextrose/Water 50 ML ASDIR PRN IV Dextrose/Water 1,000 ML ASDIR IV Insulin Human Regular 100 UNIT ASDIR IV (CKD) Sodium Chloride 99 ML Magnesium Sulfate 50 ML ASDIR PRN IV Magnesium Sulfate 100 ML ASDIR PRN IV Potassium Chloride 100 ML ASDIR PRN IV Potassium Chloride 100 ML ONCE ONE IV (DC) Potassium Phosphate 15 MM ASDIR PRN IV Sodium Chloride 250 ML Potassium Chloride 100 ML ONCE ONE IV (DC) Vancomycin HCl 1,000 MG ONCE ONE IV (DC) Sodium Chloride 250 ML Potassium Chloride 50 ML Q1HR IV (DC) Magnesium Sulfate 50 ML ONCE ONE IV (DC) Sodium Bicarbonate 75 ML .[id number] IV (DC) Sodium Chloride 1,000 ML Vancomycin HCl 750 MG ONCE@1400 IV (DC) Sodium Chloride 250 ML Heparin Sodium 5,000 UNIT Q12HR SUBQ Piperacillin Sod/Tazobactam Sod 3.375 GM Q12H IV Sodium Chloride 100 ML Phenylephrine HCl 30 MG ASDIR IV (CKD) Sodium Chloride 247 ML Sodium Chloride 500 ML ONCE ONE IV Insulin Human Lispro 0 Q6HR SUBQ (DC) Vasopressin 20 UNIT ASDIR IV (CKD) Sodium Chloride 100 ML Miscellaneous Information 1 EACH ASDIR IV (CKD) Albumin Human 12.5 GM ASDIR PRN IV Heparin Sodium (Porcine) 1,000 UNIT ASDIR PRN DIALYSIS Mannitol 12.5 GM ASDIR PRN IV Sodium Chloride 2,000 ML ASDIR PRN IV Sodium Chloride 10 ML ASDIR PRN IV Sodium Chloride 250 ML ASDIR PRN IV Norepinephrine Bitartrate 250 ML ASDIR PRN IV Sodium Chloride 0 ASDIR PRN IV Physical Exam General appearance: respiratory support (HFNC), sleeping comfortably, no respiratory distress Head/Eyes: atraumatic, normocephalic ENT: moist mucosal membranes Neck: no JVD, no masses or swelling Cardiovascular: normal heart sounds, regular rate rhythm Respiratory: aerating well, clear to auscultation, no distress Abdomen: soft, no distention, no guarding, no rebound Genitourinary: no bladder distention Extremities: edema (trace BLE), no clubbing, no cyanosis Musculoskeletal: normal inspection Skin: dry, intact, normal color, normal temperature, no rash Psychiatry: unable to evaluate Results Findings/Data: Laboratory Tests 09/27 1147 Blood Gas Puncture [...] - 32.0 %) 6.5 L 4.9 L K[place]haw % (Auto) (4.8 - 9.0 %) 7.5 9.3 H Eos % (Auto) (0.3 - 3.7 %) 0.1 L 0.0 L Baso % (Auto) (0.0 - 2.0 %) 0.1 0.1 Neut # (Auto) (2.0 - 7.6 x10 3/uL) 12.84 H 15.30 H Lymph # (Auto) (1.0 - 3.8 x10 3/uL) 0.97 L 0.89 L [place]haw # (Auto) (0.1 - 0.8 x10 3/uL) [...] pH (5.0 - 7.0) 5.0 Ur Specific [place] (1.005 - 1.030) 1.006 Urine Protein (NEGATIVE) [...] Diagnosis, Assessment Plan Free Text DxA P Notes Free text DxA P notes: Severe lactic acidosis Severe metabolic acidosis Acute renal failure Hypocalcemia Hypomagnesemia ?Septic shock vs lactic acidosis from metformin Dehydration Hypothermia DM HTN Dementia with behavior disturbance Plan: Ms. Agustin is a 74 yo female with non-specific symptoms of not feeling well, poor appetite that was found to have abnormal labs at [place], sent to ED for evaluation. In the [...] ischemic bowel. Will continue empiric Zosyn. - Zosyn - blood cultures pending - hold home meds - Accuchecks and SSI - replace electrolytes - heparin for DVT prophylaxsis 09/26 Improved lactic acidosis with dialysis. Given improvement, likely [...] life, not a good candidate for work up/treatment. BS well controlled with current insulin schedule Check labs in am 09/27 Lactate remains normal, continue to hold metformin Pt noted return of anion gap acidosis with ketonuria. Discussed with Dr. Aguilar , nephrology. Pt placed on DKA protocol to close anion gap, on D10 for glucose needs while on insulin drip. BNP elevated with clear lungs, no dependent edema, decreased O2 requirement. Give one dose of Lasix 40 mg IV, check CXR in the am, monitor for volume overload while getting DKA fluids. WBC decreased to 15, continue abx for now, d/c after 5 days Some blood noted in stool, CT with signs of chronic inflammation. Given her dementia, unsure that patient would tolerate bowel prep. GI consulted. Appreciate input on area in stomach with possible neoplasm. Check labs in am at 1412 RPT #:[id number] END OF REPORT [facility] 2019-09-28 13:07:00 [facility] ([facility]) Critical Care Progress Note REPORT#:[id number] REPORT STATUS: Signed DATE:09/28/19 TIME: 1307 PATIENT: MAC AGUSTIN UNIT #: [id number] ROOM[address]BED: [address] : [address] AGE: 74 SEX: F ATTEND: Joel Myers MD ADM AUTHOR: Helga Escalante NP * ALL edits or amendments must be made on the electronic/computer document * Subjective Chief Complaint: lethargic denies pain HPI: 74 years old female with past [...] with a creatinine of 3.9. Has received cefepime , vancomycin and 1 L of crystalloid with a right internal jugular central venous catheter in place. Upon my assessment her blood [...] medical ICU room #317. Review of Systems ROS Respiratory: Denies: SOB. Cardiovascular: Denies: chest pain. Musculoskeletal: Denies: extremity pain. All systems rev neg: except as marked Free Text ROS Notes Free Text ROS Notes: limited assessment, patient has baseline dementia and is poor historian Objective General VS/I O Last Documented: Result Date Time Pulse Ox 100 09/27 1200 B/P 105/56 09/27 1200 B/P Mean 76 09/27 1200 Pulse 87 09/27 1200 Resp 21 09/27 1200 O2 Delivery High flow nasal cannula 09/27 0800 O2 Flow Rate 10.285959 09/27 0800 Temp 97.1 09/27 0800 24 hour I O ending at 0700: 09/27 0700 09/26 1900 Intake Total 1195.00 1108.00 Output Total 200 170 Balance 995.00 938.00 Intake, IV 1195.00 1058.00 Intake, Oral 50 Number 0 1 Bowel Movements Output, 0 Hemodialysis Output, Urine 200 170 Patient 63.4 kg Weight Medications: Active Meds + DC'd Last 24 Hrs Vancomycin HCl 1,000 MG DIALYSIS-DOSE AFTER IV (CKD) Sodium Chloride 250 ML Dextrose/Water 50 ML ASDIR PRN IV Dextrose/Water 1,000 ML ASDIR IV Insulin Human Regular 100 UNIT ASDIR IV (CKD) Sodium Chloride 99 ML Magnesium Sulfate 50 ML ASDIR PRN IV Magnesium Sulfate 100 ML ASDIR PRN IV Potassium Chloride 100 ML ASDIR PRN IV Potassium Chloride 100 ML ONCE ONE IV (DC) Potassium Phosphate 15 MM ASDIR PRN IV Sodium Chloride 250 ML Potassium Chloride 100 ML ONCE ONE IV (DC) Vancomycin HCl 1,000 MG ONCE ONE IV (DC) Sodium Chloride 250 ML Potassium Chloride 50 ML Q1HR IV (DC) Magnesium Sulfate 50 ML ONCE ONE IV (DC) Sodium Bicarbonate 75 ML .[id number] IV (CKD) Sodium Chloride 1,000 ML Vancomycin HCl 750 MG ONCE@1400 IV (DC) Sodium Chloride 250 ML Heparin Sodium 5,000 UNIT Q12HR SUBQ Piperacillin Sod/Tazobactam Sod 3.375 GM Q12H IV Sodium Chloride 100 ML Phenylephrine HCl 30 MG ASDIR IV (CKD) Sodium Chloride 247 ML Sodium Chloride 500 ML ONCE ONE IV Insulin Human Lispro 0 Q6HR SUBQ Vasopressin 20 UNIT ASDIR IV (CKD) Sodium Chloride 100 ML Miscellaneous Information 1 EACH ASDIR IV (CKD) Albumin Human 12.5 GM ASDIR PRN IV Heparin Sodium (Porcine) 1,000 UNIT ASDIR PRN DIALYSIS Mannitol 12.5 GM ASDIR PRN IV Sodium Chloride 2,000 ML ASDIR PRN IV Sodium Chloride 10 ML ASDIR PRN IV Sodium Chloride 250 ML ASDIR PRN IV Norepinephrine Bitartrate 250 ML ASDIR PRN IV Sodium Chloride 0 ASDIR PRN IV Physical Exam General appearance: altered mental status, no acute distress Head/Eyes: atraumatic, normocephalic, PERRL ENT: dry mucosal membrane, normal nose Neck: normal thyroid, no JVD, no lymphadenopathy, no masses or swelling Cardiovascular: normal heart sounds, normal S1 S2, no rub, no gallop Respiratory/Chest: decreased breath sounds, on oxygen, clear to auscultation, symmetric expansion, no tenderness, dyspnea, tachypnea Abdomen: soft, non-tender, normal bowel sounds, no distention, no guarding, no mass/organomegaly Genitourinary: ballard Extremities: no calf tenderness, no cyanosis, no edema, no pedal edema Musculoskeletal: decreased ROM Neuro/BACK SHOE WORKER: no sensory deficits Skin: dry, intact, normal color, normal temperature Psychiatry: unable to evaluate Results Findings/Data: Laboratory Tests 09/28/19 1044: [Embedded Image Not Available] 09/28/19 0438: [Embedded Image Not Available] 09/27/19 1515: [Embedded Image Not Available] Laboratory Tests 09/27 1147 Blood Gas Puncture [...] 09/26 09/26 09/26 1816 1802 1515 1515 1515 Chemistry Sodium (134 - 147 mEq/L) [...] L B-Natriuretic Peptide (0 - 100 1269.2 H PG/ML) Laboratory Tests 09/27 09/26 0438 1515 Hematology [...] - 32.0 %) 6.5 L 4.9 L K[place]haw % (Auto) (4.8 - 9.0 %) 7.5 9.3 H Eos % (Auto) (0.3 - 3.7 %) 0.1 L 0.0 L Baso % (Auto) (0.0 - 2.0 %) 0.1 0.1 Neut # (Auto) (2.0 - 7.6 x10 3/uL) 12.84 H 15.30 H Lymph # (Auto) (1.0 - 3.8 x10 3/uL) 0.97 L 0.89 L [place]haw # (Auto) (0.1 - 0.8 x10 3/uL) [...] pH (5.0 - 7.0) 5.0 Ur Specific [place] (1.005 - 1.030) 1.006 Urine Protein (NEGATIVE) [...] 3-5 Urine Mucus (NONE SEEN /LPF) TRACE Microbiology: 09/25 0730 NASAL: MRSA DNA Surveillance Screen - COMP 09/25 040 BLOOD: Blood Culture - RES 09/25 034 BLOOD: Blood Culture - RES Diagnosis, Assessment Plan Free text A P: Assessment and Plan: 74 [...] with a creatinine of 3.9. Has received cefepime , vancomycin and 1 L of crystalloid with a right internal jugular central venous catheter in place. Upon my assessment her blood [...] be admitted to medical ICU room #317. 09/27/2019 Severe lactic acidosis, secondary to metformin use?, Case discussed with nephrology extensively. Hemodialysis catheter was placed yesterday, the patient had a hemodialysis yesterday, and plan is to do hemodialysis today Acidosis improved, also the lactic acid has been trending down. Monitor electrolytes, monitor lactate. Plan is to replace electrolytes during hemodialysis Shortness of breath is better, patient currently on nasal cannula, keep O2 sats more than 90% Sepsis?, Source?, Continue Zosyn and vancomycin IV for now, MRSA screen came back positive, blood cultures are no growth today. White blood cell count is 19.7 Continue heparin for DVT prophylaxis Keep map more than 65 mmhg, currently patient is on Levophed and vasopressin drip, will try to wean pressors if possible. Continue sliding scale insulin, monitor glucose We will see if she can swallow today to see if we can start diet Bicarb drip has been stopped, acidemia resolving She is DNR/DNI Critical care time 31 minutes Plan of Care 09/28/19 NEURO H/O dementia with behavior disturbance and anxiety disorder. Begin home meds when cleared to take PO. Add Tylenol prn for pain, and adjust as needed. CV Hypotension-resolved. Off pressors. PULM Hypoxemia improving- tolerating 5L [place]. p02 on ABG this am is 136, wean O2 as tolerated. GI Advance diet as tolerated. General Sx consult for questionable pnemoperitoneum- no intervention required at this time. CT Abdomen shows diffuse colonic wall thickening and moderately dilated stomach-GI consult placed. RENAL Metformin induced lactic acidosis-Nephrology following and managing HD. On Bicarb gtt, Bicarb this AM 16 on BMP and AG increased from 19->27. Lactic acid 1.2. BUN 14 Crea 1.2 stable. ENDO Repeat UA shows 2+ ketones and serum acetone+. Started on insulin gtt per nephrology. Serial BMP and repeat serum acetone in AM. HEME Anemia-H/H stable 8.4/26. Plt count 99 this AM. No signs of bleeding. Transfuse if Hgb <7. ID Leukocytosis improving WBC 15.02. Continue broad spectrum antibiotics with Vanco /Zosyn. MRSA nares positive, Blood cx negative x 48hours. MSK PT/OT to evaluate and treat when medically stable. PROPHYLAXIS SCDs/heparin/ DISPO Monitor closely in the ICU. CM for discharge planning. Consultants: gastroenterology, nephrology Code status: do not resuscitate Critical care time: Minutes: 35 at 1424 RPT #:[id number] END OF REPORT [facility] 2019-09-28 09:16:00 [facility] ([facility]) Nephrology Progress Note REPORT#:[id number] REPORT STATUS: Signed DATE:09/28/19 TIME: 915 PATIENT: MAC AGUSTIN UNIT #: [id number] ROOM/BED: [place] [address] : 47 AGE: 74 SEX: F ATTEND: Joel Myers MD ADM AUTHOR: Rabia Aguilar MD * ALL edits or amendments must be made on the electronic/computer document * Subjective Chief Complaint: AMS/Lactic acidosis/NATHEN Unable to obtain: dementia Comments: Patient seen and evaluated, HPI no change from initial, alert, NAD Review of Systems Unable to obtain due to: Dementia Objective General VS/I O: Vital Signs: Date Time Temp Pulse Resp B/P B/P Pulse O2 O2 Flow FiO2 Mean Ox Delivery Rate 09/27 0830 81 17 105/55 79 100 /18 0800 87 21 95/52 69 100 /18 0730 87 21 93/55 72 100 / 0715 83 18 94/52 71 98 /18 0700 140 16 106/56 75 95 / 0645 101 18 111/53 75 96 / 0630 83 17 99/56 71 95 / 0615 130 25 99/53 72 96 / 0600 94 19 97/55 73 96 / 0500 76 15 103/53 75 100 09/27 0401 121 20 119/56 80 99 09/27 0400 36.1 09/27 0345 84 16 98/53 69 100 09/27 0330 79 16 87/54 67 98 09/27 0300 79 16 100/53 75 98 / 0230 79 17 105/51 74 98 / 0200 80 15 109/56 80 98 / 0130 76 19 94/53 69 98 / 0100 76 16 113/56 81 99 09/27 0030 128 17 91/50 61 99 09/27 [...] 09/26 2000 36.5 09/27 1999 High flow 10.630993 nasal cannula 09/27 1999 77 16 104/57 76 99 09/26 1930 75 14 101/52 73 100 09/26 1920 100 High flow 10.094683 nasal cannula 09/26 1900 79 17 106/51 74 100 09/26 1845 72 14 85/51 64 99 04/17 1830 72 16 88/51 65 100 04/17 1815 75 16 100 04/17 1814 86/41 59 04/17 1808 77 16 91/53 70 100 04/17 1806 81 18 102/51 74 91 04/17 1800 79 17 104/52 74 100 04/ 1745 79 17 97/52 70 100 04/ 1730 83 17 88/54 65 100 04/ 1715 82 16 100 04/ 1714 98/54 72 04/ 1700 85 20 95/50 70 100 09/26 1645 91 26 93 04/ 1644 103/49 71 09/26 1631 116/55 76 09/26 1630 86 33 83 09/26 1615 81 18 100 09/26 1614 105/57 77 09/26 1600 36.4 High flow 10.119780 nasal cannula 09/26 1600 86 19 98/56 71 100 09/26 1545 79 17 100 09/26 1544 69 09/26 1544 92/48 09/26 1530 81 17 127/57 82 100 09/26 1516 108/51 74 09/26 1515 84 19 91 09/26 1500 92 24 111/57 65 77 04 [...] 80 22 100 09/26 1212 104/45 65 / 1200 36.3 High flow 10.392910 nasal cannula 09/26 1200 86 26 109/55 [...] Urine 200 170 Patient 63.4 kg Weight Medications Active Meds + DC'd Last 24 Hrs Vancomycin HCl 1,000 MG DIALYSIS-DOSE AFTER IV (CKD) Sodium Chloride 250 ML Vancomycin HCl 1,000 MG ONCE ONE IV (DC) Sodium Chloride 250 ML Potassium Chloride 50 ML Q1HR IV (DC) Magnesium Sulfate 50 ML ONCE ONE IV (DC) Sodium Bicarbonate 75 ML .[id number] IV (CKD) Sodium Chloride 1,000 ML Vancomycin HCl 750 MG ONCE@1400 IV (DC) Sodium Chloride 250 ML Sodium Phosphate 20 MMOL ONCE ONE IV (DC) Sodium Chloride 250 ML Heparin Sodium 5,000 UNIT Q12HR SUBQ Piperacillin Sod/Tazobactam Sod 3.375 GM Q12H IV Sodium Chloride 100 ML Phenylephrine HCl 30 MG ASDIR IV (CKD) Sodium Chloride 247 ML Sodium Chloride 500 ML ONCE ONE IV Insulin Human Lispro 0 Q6HR SUBQ Vasopressin 20 UNIT ASDIR IV (CKD) Sodium Chloride 100 ML Miscellaneous Information 1 EACH ASDIR IV (CKD) Albumin Human 12.5 GM ASDIR PRN IV Heparin Sodium (Porcine) 1,000 UNIT ASDIR PRN DIALYSIS Mannitol 12.5 GM ASDIR PRN IV Sodium Chloride 2,000 ML ASDIR PRN IV Sodium Chloride 10 ML ASDIR PRN IV Sodium Chloride 250 ML ASDIR PRN IV Norepinephrine Bitartrate 250 ML ASDIR PRN IV Sodium Chloride 0 ASDIR PRN IV Physical Exam General appearance: alert, no acute distress Head/eyes: atraumatic, normocephalic ENT: normal nose Neck: supple/no meningismus Cardiovascular: normal heart sounds, no rub Respiratory: aerating well, symmetric expansion Abdomen: soft Genitourinary: ballard, urine Extremities: no edema Musculoskeletal: normal inspection Neuro/BACK SHOE WORKER: altered mental status Skin: dry Results Findings/Data: Laboratory Tests 09/26 09 Blood Gas Puncture Site L Rad ABG [...] 09/26 09/26 09/26 1515 1515 1515 1210 0918 Chemistry Sodium (134 - [...] L B-Natriuretic Peptide (0 - 100 1269.2 H PG/ML) Laboratory Tests 09/27 09/26 0438 1515 Hematology [...] - 32.0 %) 6.5 L 4.9 L Kershaw % (Auto) (4.8 - 9.0 %) 7.5 9.3 H Eos % (Auto) (0.3 - 3.7 %) 0.1 L 0.0 L Baso % (Auto) (0.0 - 2.0 %) 0.1 0.1 Neut # (Auto) (2.0 - 7.6 x10 3/uL) 12.84 H 15.30 H Lymph # (Auto) (1.0 - 3.8 x10 3/uL) 0.97 L 0.89 L Kershaw # (Auto) (0.1 - 0.8 x10 3/uL) [...] Toxicology Random Vancomycin (mcg/mL) 12.8 Diagnosis, Assessment Plan Free Text A P: Patient seen and evaluated, discussed with care team, images and laboratories reviewed. History of dementia History of rheumatoid arthritis History of frequent falls History of frequent UTIs History of hypertension: Currently hypotensive Hypokalemia: We will supplement Severe hypomagnesemia we will supplement Hypocalcemia: We will supplement Hypoalbuminemia Severe lactic acidosis: Etiology, could be related to septic shock, however source is unclear, rule out ischemic bowel, Zosyn, will need to review her medications if patient has been on metformin, lactic acidosis due to metformin in the setting of acute renal failure is a possibility and will do hemodialysis in the setting. Patient has been taking Metformin 1000 BID, kenneth has lactic acidosis that is induced by Metformin, discussed with deysi and ICC/Primary team will proceed with HD 09/27/2019 mental status a lot better, hemodynamically more stable, pressors being weaned off, received 6 hours of hemodialysis yesterday, her last set of blood gas showed a pH of 7.40, PCO2 25, PO2 55, lactic acid 6.2 improving, sodium is 143 potassium 3.6 CO2 20 chloride 101 BUN 13 creatinine 1.1, hemoglobin this morning 9.7, white blood count 19.78 trending down, platelet 156 , her clinical picture is consistent with metformin induced lactic acidosis, will do another session of hemodialysis, 4 hours, potassium 3.5, no ultrafiltration, will give 20 mmol of potassium phosphate and expectation of hypophosphatemia during hemodialysis. katie and evaluated during HD, discussed with RN and HD nurse 09/28/2019 laboratories from this morning showed sodium 144, potassium 3.3 we will give KCl 20 mEq IV x1, chloride 104, bicarbonate 16, creatinine 1.2, lactic acid 1.2, hemoglobin 8.4, white blood count 15.2, blood culture still negative, anion gap today is 24 with a normal lactic acid etiology unclear will repeat BMP , repeat lactic acid and order serum acetone and do urinalysis to check for urine ketones, also will do a blood gas. Ketones came back as large, This is likley starvation ketoacidosis that has been exacerbated by gluconeogenesis inhibition by Metformin and has been reported in the literature, will start Glucose and insulin drip at 1522 RPT #:[id number] END OF REPORT [facility] 2019-09-28 07:59:00 [facility] ([facility]) Pharmacy Prog.Note-Vancomycin REPORT#:[id number] REPORT STATUS: Signed DATE:09/28/19 TIME: 0759 PATIENT: MAC AGUSTIN UNIT #: [id number] ROOM/BED: [place] [address] : 47 AGE: 74 SEX: F ATTEND: Joel Myers MD ADM AUTHOR: Yary Figueroa [facility] * ALL edits or amendments must be made on the electronic/computer document * Vancomycin Vancomycin Medication Therapy: Vancomycin Goal trough: 15-20 mcg/ml Indication for treatment: Empiric Current therapy: Vancomycin dosing per levels Day of therapy: Day 3 Weight: Actual weight (kg): 63.4 VS and I/O: Vital Signs Date Temp Pulse Resp B/P B/P Mean Pulse Ox FiO2 09/25-09/27 33.1-37.3 69-132 12-60 65-226/34-144 44-179 73-100 72 hours ending at 0700 09/27 0700 09/26 1900 09/26 0700 09/25 1900 09/25 09/24 0700 1900 Intake 1195.00 1108.00 2253.00 Total Output 200 150 295 Total Balance 995.00 958.00 1958.00 Intake, 0 Hemodialys is Intake, IV 1195.00 1058.00 2253.00 Intake, 50 Oral Number 0 1 Bowel Movements Output, 0 Hemodialys is Output, 200 150 295 Urine Patient 63.4 kg 63.4 kg 61.4 kg Weight Weight Bed scale Bed scale Measuremen t Method 72 Hour I O Total 09/27 0700 09/26 0700 09/25 0700 Intake Total 2303.00 2253.00 Output Total 350 295 Balance 1953.00 1958.00 Labs: Laboratory Tests: 09/27 437 Toxicology Random Vancomycin (mcg/mL) 12.8 Laboratory Test : 09/27 1515 Chemistry BUN (7 - 18 mg/dL) 14 5 L Creatinine (0.6 - 1.3 mg/dL) 1.2 0.6 Hematology WBC (4.5 - 11.0 x10 3/uL) 15.02 H 18.06 H Microbiology: 09/25 0730 NASAL: MRSA DNA Surveillance Screen - COMP 09/25 0400 BLOOD: Blood Culture - RES 09/25 0345 BLOOD: Blood Culture - RES Last dialysis session: Date: 09/27/19 Treatment plan: consult, change regimen Regimen: Ms. Agustin is a 74 yo female with dementia, DM2, Chronic pain, frequent UTI, DM2, RA, anxiety presented to ED from [facility] for concerns of abnormal labs, dehydration, NATHEN, suspect UTI. Dr. Lin consulted pharmacy to manage vancomyicn for sepsis with goal trough 15-20 mcg/mL. Micro: * 09/25 BCx NGTD * 09/25 MRSA screen (+) Imaging: * 09/26 CXR no acute abnormality * 09/25 CT abd: underdistention vs colitis; gastritis vs neuplasm of the stomach 09/27 A/P: * WBC 15.02 (down), Tmax 36.8 C, BUN/SCr 14/1.2, UOP 370 mL/24 hr. Last HD 09/26 * Random vancomycin level this morning 12.8 mg/dL (subtherapeutic). * Will order a one-time dose of vancomycin 1000 mg IV for now and then schedule vancomycin 1000 mg IV after each HD session. * Will plan to obtain new level prior to 3rd HD session of new regimen (level not ordered yet). * Pharmacy will continue to follow and adjust regimen for goal post-HD levels 15-20 mcg/mL. at 0806 RPT #:[id number] END OF REPORT [facility] 2019-09-27 13:28:00 [facility] ([facility]) Hospitalist Progress Note REPORT#:[id number] REPORT STATUS: Signed DATE:09/27/19 TIME: 1328 PATIENT: MAC AGUSTIN UNIT #: [id number] ROOM/BED: [place] [address] : 47 AGE: 74 SEX: F ATTEND: Joel Myers MD ADM AUTHOR: Marisabel Chu DO * ALL edits or amendments must be made on the electronic/computer document * Subjective Chief Complaint: Pt is demented, only says "no" repeatedly. Review of Systems Unable to obtain due to: dementia, only says "no" Objective General VS/I O: Vital Signs: Date Time Temp Pulse Resp B/P B/P Pulse O2 O2 Flow FiO2 Mean Ox Delivery Rate 09/26 1301 88 30 112/64 82 88 09/26 1259 87 21 115/57 82 87 09/26 1246 122/85 100 09/26 1245 80 26 91 09/26 1230 89 25 96/54 72 91 09/26 1215 80 22 100 09/26 1212 104/45 65 09/26 1200 97.3 High flow 10.272939 nasal cannula 09/26 1200 86 26 109/55 [...] 89 09/26 0936 72 21 130/66 89 04/ 0921 84 24 142/85 105 04/ 0901 83 20 134/99 112 / 0846 75 19 137/60 86 04/ 0830 79 18 127/59 85 / 0816 87 30 121/57 77 04/17 0800 High flow 10.331891 nasal cannula 09/26 0800 97.5 High flow 10.991309 nasal cannula 09/26 0800 83 21 139/59 81 99 04/17 0746 79 21 122/57 82 99 04/17 0744 22 140/62 89 100 / 0742 80 21 132/58 84 100 / 0740 81 20 131/91 105 100 / 0731 88 24 141/60 86 97 /17 0715 82 20 130/63 91 100 /17 0712 84 21 123/56 80 100 /17 0710 84 20 121/59 85 100 / 0709 83 21 119/53 76 100 04/17 0700 88 25 145/64 92 100 / 0400 98.3 80 21 122/58 79 97 High flow 10.208328 nasal cannula 09/26 0350 96 High flow 11.679659 nasal cannula 09/26 0016 92 Nasal 5.429087 cannula 09/26 0000 97.0 86 19 113/59 77 89 Nasal 5.159551 cannula 09/26 1999 Nasal 3.349284 cannula 09/26 1999 97.8 92 21 128/56 80 92 Nasal 3.134393 cannula 09/25 1900 96 27 118/60 86 92 09/25 1855 97 27 104/59 79 94 09/25 1850 96 25 115/56 78 94 09/25 1845 98 23 127/59 85 94 09/25 1844 97 22 118/62 84 94 09/25 1841 97 25 71/52 57 94 09/25 1836 97 24 127/80 97 96 09/25 1830 96 30 106/77 88 90 09/25 1820 96 26 111/56 79 78 09/25 1815 96 28 93/51 65 95 09/25 1812 94 37 129/51 74 96 16 1810 93 60 75/52 60 95 09/25 1804 97 22 136/100 113 94 09/25 1800 94 29 96 09/25 1756 97 35 110/74 89 96 04/16 1750 96 33 114/72 84 97 04/16 1746 101 27 110/50 72 82 04/16 1745 98 28 93 04/16 1740 98 24 109/46 67 93 04/16 1735 94 36 104/51 73 96 04/16 1730 95 26 87 04/16 1725 98 29 109/55 77 94 04/16 1720 101 32 144/57 82 96 04/16 1719 98 37 124/55 73 96 04/16 1715 95 32 94 04/16 1711 97 54 226/144 179 97 04/16 1706 98 38 183/124 129 98 04/16 1700 97 37 113/54 78 98 04/16 1655 95 32 115/55 77 87 04/16 1650 97 28 117/58 83 98 04/16 1645 94 29 108/55 75 98 04/16 1640 94 30 110/53 77 97 04/16 1639 95 29 116/72 89 97 04/16 1630 86 33 125/54 78 88 04/16 1625 95 23 104/55 76 95 04/16 1620 96 25 105/53 76 95 04/16 1616 96 26 106/53 76 96 04/16 1615 94 29 95 04/16 1610 96 29 104/50 67 95 04/16 1606 94 34 90/46 66 97 04/16 1601 94 28 151/64 92 73 04/16 1600 93 28 77 04/16 1600 99.1 100 Room air 04/16 1600 98.1 94 32 125/54 77 94 Nasal 3.845127 cannula 04/16 1556 96 30 85/57 64 92 04/16 1550 97 29 94/50 67 97 04/16 1546 96 27 102/47 65 98 04/16 1545 96 20 98 04/16 1541 96 26 134/112 121 99 04/16 1536 97 26 97 04/16 1535 97 25 97/49 70 96 04/16 1530 99 27 118/58 83 96 04/16 1525 99 25 101/54 72 97 04/16 1521 104 28 96 04/16 1520 102 31 113/51 73 96 04/16 1517 100 22 156/64 92 100 04/16 1515 100 24 182/104 119 98 04/16 1510 101 29 120/56 81 100 04/16 1505 132 32 125/53 76 98 04/16 1500 103 19 113/63 80 100 09/25 1450 106 25 104/55 74 96 09/25 1446 105 26 98 09/25 1446 105 26 104/65 76 98 09/25 1445 103 21 98 09/25 1444 109 25 167/110 133 99 09/25 1436 109 19 130/56 80 99 09/25 1430 110 12 102/53 75 99 09/25 1425 114 14 100/52 71 99 09/25 1420 120 26 101/50 67 100 09/25 1415 116 22 96/55 72 98 09/25 1410 116 22 89/51 65 98 09/25 1405 118 24 78/46 57 98 09/25 1400 118 21 82/49 59 99 09/25 1355 122 21 79/52 61 98 09/25 1350 123 22 77/45 56 98 09/25 1345 123 22 84/42 58 98 09/25 1340 120 18 68/39 48 98 09/25 1335 115 23 66/40 46 98 09/25 1331 114 23 65/39 47 98 09/25 1330 116 22 69/34 44 98 24 hour I O ending at 0700: 09/26 0700 09/25 1900 Intake Total 2253.00 Output Total 275 Balance 1978.00 Intake, 0 Hemodialysis Intake, IV 2253.00 Output, Urine 275 Patient 63.4 kg Weight Weight Bed scale Measurement Method Patient Weight Weight (lb): 139 Weight (oz): 12.37 Weight (kg): 63.400 Medications: Active Meds + DC'd Last 24 Hrs Vancomycin HCl 750 MG ONCE@1400 IV Sodium Chloride 250 ML Sodium Phosphate 20 MMOL ONCE ONE IV (DC) Sodium Chloride 250 ML Heparin Sodium 5,000 UNIT Q12HR SUBQ Magnesium Sulfate 50 ML ONCE ONE IV (DC) Sodium Phosphate 20 MMOL ONCE ONE IV (DC) Sodium Chloride 250 ML Piperacillin Sod/Tazobactam Sod 3.375 GM Q12H IV Sodium Chloride 100 ML Sodium Chloride 1,000 ML .Q8H IV (DC) Piperacillin Sod/Tazobactam Sod 3.375 GM Q8H IV (DC) Sodium Chloride 100 ML Phenylephrine HCl 30 MG ASDIR IV (CKD) Sodium Chloride 247 ML Sodium Chloride 500 ML ONCE ONE IV Insulin Human Lispro 0 Q6HR SUBQ Sodium Chloride 1,000 ML BOLUS ONCE IV (DC) Vasopressin 20 UNIT ASDIR IV (CKD) Sodium Chloride 100 ML Miscellaneous Information 1 EACH ASDIR IV (CKD) Albumin Human 12.5 GM ASDIR PRN IV Heparin Sodium (Porcine) 1,000 UNIT ASDIR PRN DIALYSIS Mannitol 12.5 GM ASDIR PRN IV Sodium Chloride 2,000 ML ASDIR PRN IV Sodium Chloride 10 ML ASDIR PRN IV Sodium Chloride 250 ML ASDIR PRN IV Sodium Bicarbonate 150 ML Q11H IV (DC) Dextrose/Water 1,000 ML Norepinephrine Bitartrate 250 ML ASDIR PRN IV [...] Chloride 0 ASDIR PRN IV (DC) Physical Exam General appearance: alert, awake, no acute distress, no respiratory distress Head/Eyes: atraumatic, normocephalic ENT: moist mucosal membranes Neck: no JVD, no masses or swelling Cardiovascular: normal heart sounds, regular rate rhythm Respiratory: aerating well, clear to auscultation, no distress Abdomen: soft, no distention, no guarding, no rebound Genitourinary: no bladder distention Extremities: edema (trace BLE), no clubbing, no cyanosis Musculoskeletal: normal inspection 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 moves limbs independently but does not follow directions Skin: dry, intact, normal color, normal temperature, no rash Psychiatry: unable to evaluate Results Findings/Data: Laboratory Tests 09/26 09/26 09/25 09/25 09/25 0956 0238 1732 1509 1503 Blood Gas Puncture Site L Rad L Rad [...] 80 VBG Base Excess (-4.0 - 4.0 -3.0 mmol/L) VBG Temperature (F) 98.6 Temperature (F) 98.0 38.0 98.6 98.6 O2 Delivery Device Cannula Cannula Cannula Cannula Cannula Laboratory Tests 09/26 09/26 09/26 09/26 09/26 1210 0918 0544 0515 0500 Chemistry Sodium (134 - 147 mEq/L) 143 [...] 09/26 09/25 09/25 0115 0115 0013 2145 2145 Chemistry Sodium (134 - 147 mEq/L) 143 [...] Calcium Jefry (1.12 - 1.32 0.96 L MMOL/L) Phosphorus (2.5 - 4.9 MG/DL) 2.3 L Magnesium (1.8 - 2.4 mg/dL) 2.50 H LDL Cholesterol Measurd (0 - 100 mg/dL) 67 09/25 09/25 09/25 09/25 09/25 2145 2145 1827 1655 1655 Chemistry Sodium (134 [...] Jefry (1.12 - 1.32 0.96 L 0.98 L MMOL/L) Phosphorus (2.5 - 4.9 MG/DL) 1.6 L [...] (Auto) (14.0 - 32.0 %) 2.8 L Kershaw % (Auto) (4.8 - 9.0 %) 6.5 Eos % (Auto) (0.3 - 3.7 %) 1.1 Baso % (Auto) (0.0 - 2.0 %) 0.2 Neut # (Auto) (2.0 - 7.6 x10 3/uL) 19.09 H Lymph # (Auto) (1.0 - 3.8 x10 3/uL) 0.61 L Kershaw # (Auto) (0.1 - 0.8 x10 3/uL) [...] (Auto) (14.0 - 32.0 %) 4.8 L Kershaw % (Auto) (4.8 - 9.0 %) 3.2 L Eos % (Auto) (0.3 - 3.7 %) 0.1 L Baso % (Auto) (0.0 - 2.0 %) 0.1 Neut # (Auto) (2.0 - 7.6 x10 3/uL) 19.89 H Lymph # (Auto) (1.0 - 3.8 x10 3/uL) 1.06 Kershaw # (Auto) (0.1 - 0.8 x10 3/uL) [...] (0.0 - 0.1 x10 3/uL) 0.00 Radiology data: Recent Impressions: RADIOLOGY - XR CHEST 1 V 09/26 0748 Report Impression - Status: SIGNED Entered: 09/27/2019 0756 IMPRESSION: No acute abnormality as above discussed. SL: [id number] Impression By: [email or web address] - Collin Alvarenga M.D. Diagnosis, Assessment Plan Free Text DxA P Notes Free text DxA P notes: Severe lactic acidosis Severe metabolic acidosis Acute renal failure Hypocalcemia Hypomagnesemia ?Septic shock vs lactic acidosis from metformin Dehydration Hypothermia DM HTN Dementia with behavior disturbance Plan: Ms. Agustin is a 74 yo female with non-specific symptoms of not feeling well, poor appetite that was found to have abnormal labs at [place], sent to ED for evaluation. In the [...] ischemic bowel. Will continue empiric Zosyn. - Zosyn - blood cultures pending - hold home meds - Accuchecks and SSI - replace electrolytes - heparin for DVT prophylaxsis 09/26 Improved lactic acidosis with dialysis. Given improvement, likely [...] life, not a good candidate for work up/treatment. BS well controlled with current insulin schedule Check labs in am at 1338 RPT #:[id number] END OF REPORT [facility] 2019-09-27 11:45:00 [facility] ([facility]) Pharmacy Prog.Note-Vancomycin REPORT#:[id number] REPORT STATUS: Signed DATE:09/27/19 TIME: 1145 PATIENT: MAC AGUSTIN UNIT #: [id number] ROOM/BED: [place] [address] : 47 AGE: 74 SEX: F ATTEND: Joel Myers MD ADM AUTHOR: Melissa Farah [facility] * ALL edits or amendments must be made on the electronic/computer document * Vancomycin Vancomycin Medication Therapy: Vancomycin Goal trough: 15-20 mcg/ml (post-HD) Indication for treatment: empiric Current therapy: Medication(s) Ordered: Anti-Infective Agents Sig/Rose Mary Start time Last Medication [...] CKD Information IV 10/25 1129 Day of therapy: Day 2 Weight: Actual weight (kg): 63.4 VS and I/O: Vital Signs Date Temp Pulse Resp B/P B/P Mean Pulse Ox FiO2 09/25-09/26 91.5-99.1 69-132 12-60 65-226/34-144 44-179 73-100 72 hours ending at 0700 09/26 0700 09/25 1900 09/25 0709/24 1900 09/24 09/23 0700 1900 Intake 2253.00 Total Output 275 Total Balance 1978.00 Intake, 0 Hemodialys is Intake, IV 2253.00 Output, 275 Urine Patient 63.4 kg 61.4 kg Weight Weight Bed scale Bed scale Measuremen t Method 72 Hour I O Total 09/26 0700 09/25 0700 09/24 0700 Intake Total 2253.00 Output Total 275 Balance 1977.00 Labs: Laboratory Test : 09/26 09/26 09/25 09/25 0500 0115 2145 1655 Chemistry BUN (7 - 18 mg/dL) 16 13 10 14 Creatinine (0.6 - 1.3 mg/dL) 1.2 1.1 1.0 1.1 Hematology WBC (4.5 - 11.0 x10 3/uL) 19.78 H 21.56 H 21.91 H Microbiology: 09/25 0730 NASAL: MRSA DNA Surveillance Screen - COMP 09/25 0400 BLOOD: Blood Culture - RES 09/25 0345 BLOOD: Blood Culture - RES Pertinent tests: Recent Impressions: RADIOLOGY - XR CHEST 1 V 09/25 1231 Report Impression - Status: SIGNED Entered: 09/26/2019 1252 IMPRESSION: Right IJ catheter with its tip in the superior vena cava just above the level of the right atrium. No acute cardiopulmonary findings identified. Impression By: Delvis Johnson M.D. RADIOLOGY - XR CHEST 1 V 09/26 0748 Report Impression - Status: SIGNED Entered: 09/27/2019 0756 IMPRESSION: No acute abnormality as above discussed. SL: [id number] Impression By: [email or web address] - Collin Alvarenga M.D. Treatment plan: consult, change regimen Regimen: Ms. Agustin is a 74 yo female with dementia, DM2, Chronic pain, frequent UTI, DM2, RA, anxiety presented to ED from [facility] for concerns of abnormal labs, dehydration, NATHEN, suspect UTI. Dr. Lin consulted pharmacy to manage vancomyicn for sepsis with goal trough 15-20 mcg/mL. Micro: * 09/25 BCx NGTD * 09/25 MRSA screen (+) Imaging: * 09/26 [...] LA= 2.0, trending down from 14.8 on admission. * Of note, pt is on acute HD per nephro. BUN/SCr 16/1.2, improved, NATHEN resolving , est CrCl 30 mL/min. Monitor plans for HD moving forward. * Pt received vancomycin 1g IV X1ED on 09/25 @ 0401, 16 mg/kg actual BW; was then dialyzed in the afternoon. * Pre-HD VRL ordered for 08/26 AM never drawn. Pt is currently being dialyzed per d/w bedside RN. * Anticipate serum levels are low; will redose with vancomycin 750mg IV x1 post- HD today. * Ordered repeat pre-HD VRL for tomorrow 08/27 AM; will be prior to 3rd dose of vancomycin. * Pharmacy will continue to follow and adjust regimen for goal post-HD levels 15-20 mcg/mL. at 1206 RPT #:[id number] END OF REPORT [facility] 2019-09-27 10:48:00 [facility] ([facility] Critical Care Progress Note REPORT#:[id number] REPORT STATUS: Signed DATE:09/27/19 TIME: 1048 PATIENT: MAC AGUSTIN UNIT #: [id number] ROOM/BED: [place] [address] : 47 AGE: 74 SEX: F ATTEND: Joel Myers MD ADM AUTHOR: Mick Lin MD * ALL edits or amendments must be made on the electronic/computer document * Subjective Chief Complaint: Somnolent HPI: 24-hour events Patient had hemodialysis yesterday, plan is to do hemodialysis today Shortness of breath improved Patient is still lethargic, but able to wake her up She is currently on Levophed drip and vasopressin drip. Todd-Synephrine drip is off Labs reviewed Has leukocytosis Objective General VS/I O Last Documented: Result Date Time O2 Delivery High flow nasal cannula 09/26 08 O2 Flow Rate 10.699782 09/26 0800 Temp 97.5 09/26 0800 Pulse [...] kg Weight Weight Bed scale Measurement Method Medications: Active Meds + DC'd Last 24 Hrs Sodium Phosphate 20 MMOL ONCE ONE IV Sodium Chloride 250 ML Heparin Sodium 5,000 UNIT Q12HR SUBQ Magnesium Sulfate 50 ML ONCE ONE IV (DC) Sodium Phosphate 20 MMOL ONCE ONE IV (DC) Sodium Chloride 250 ML Piperacillin Sod/Tazobactam Sod 3.375 GM Q12H IV Sodium Chloride 100 ML Sodium Chloride 1,000 ML .Q8H IV (DC) Piperacillin Sod/Tazobactam Sod 3.375 GM Q8H IV (DC) Sodium Chloride 100 ML Phenylephrine HCl 30 MG ASDIR IV (CKD) Sodium Chloride 247 ML Sodium Chloride 500 ML ONCE ONE IV Insulin Human Lispro 0 Q6HR SUBQ Sodium Chloride 1,000 ML BOLUS ONCE IV (DC) Vasopressin 20 UNIT ASDIR IV (CKD) Sodium Chloride 100 ML Miscellaneous Information 1 EACH ASDIR IV (CKD) Sodium [...] 150 ML Q11H IV (DC) Dextrose/Water 1,000 ML Insulin Human Lispro 0 AC HS SUBQ (DC) Vancomycin HCl 750 MG Q12H IV (CAN) Sodium Chloride 250 ML Norepinephrine Bitartrate 250 ML ASDIR PRN IV [...] Sodium Chloride 0 ASDIR PRN IV (DC) Results Findings/Data: Laboratory Tests 09/27/19 0500: [Embedded Image Not Available] 09/27/19 0115: [Embedded Image Not Available] 09/26/19 2145: [Embedded Image Not Available] 09/26/19 1655: [Embedded Image Not Available] Laboratory Tests 09/26 09/26 09/25 09/25 09/25 0956 0238 1732 1509 1503 Blood Gas Puncture Site L Rad L Rad [...] 80 VBG Base Excess (-4.0 - 4.0 -3.0 mmol/L) VBG Temperature (F) 98.6 Temperature (F) 98.0 38.0 98.6 98.6 O2 Delivery Device Cannula Cannula Cannula Cannula Cannula Laboratory Tests 09/26 09/26 09/26 09/26 09/26 0918 0544 0515 0500 0115 Chemistry Sodium (134 [...] 09/25 09/25 09/25 0115 0013 2145 2145 2145 Chemistry Sodium (134 - 147 mEq/L) 143 [...] Jefry (1.12 - 1.32 0.96 L 0.96 L MMOL/L) Phosphorus (2.5 - 4.9 MG/DL) 2.3 L Magnesium (1.8 - 2.4 mg/dL) 2.50 H LDL Cholesterol Measurd (0 - 100 mg/dL) 67 09/25 09/25 09/25 09/25 09/25 2145 1827 1655 1655 1207 Chemistry Sodium (134 - 147 mEq/L) 142 [...] Calcium Jefry (1.12 - 1.32 0.98 L MMOL/L) Phosphorus (2.5 - 4.9 MG/DL) 1.6 L [...] (Auto) (14.0 - 32.0 %) 2.8 L Kershaw % (Auto) (4.8 - 9.0 %) 6.5 Eos % (Auto) (0.3 - 3.7 %) 1.1 Baso % (Auto) (0.0 - 2.0 %) 0.2 Neut # (Auto) (2.0 - 7.6 x10 3/uL) 19.09 H Lymph # (Auto) (1.0 - 3.8 x10 3/uL) 0.61 L Kershaw # (Auto) (0.1 - 0.8 x10 3/uL) [...] (Auto) (14.0 - 32.0 %) 4.8 L [place] % (Auto) (4.8 - 9.0 %) 3.2 L Eos % (Auto) (0.3 - 3.7 %) 0.1 L Baso % (Auto) (0.0 - 2.0 %) 0.1 Neut # (Auto) (2.0 - 7.6 x10 3/uL) 19.89 H Lymph # (Auto) (1.0 - 3.8 x10 3/uL) 1.06 Kershaw # (Auto) (0.1 - 0.8 x10 3/uL) [...] (Man) (0.0 - 0.1 x10 3/uL) 0.00 Microbiology: 09/25 0730 NASAL: MRSA DNA Surveillance Screen - COMP 09/25 0400 BLOOD: Blood Culture - RES 09/25 0345 BLOOD: Blood Culture - RES Radiology data Recent Impressions: RADIOLOGY - XR CHEST 1 V 09/25 1231 Report Impression - Status: SIGNED Entered: 09/26/2019 1252 IMPRESSION: Right IJ catheter with its tip in the superior vena cava just above the level of the right atrium. No acute cardiopulmonary findings identified. Impression By: Delvis Jonhson M.D. RADIOLOGY - XR CHEST 1 V 09/26 0748 Report Impression - Status: SIGNED Entered: 09/27/2019 0756 IMPRESSION: No acute abnormality as above discussed. SL: [id number] Impression By: [email or web address] - Collin Alvarenga M.D. Free Text Obj Notes Free Text Obj Notes: Physical exam: VS reviewed General: Somnolent, chronically ill, elderly patient, in NAD. HEENT: PERRLA, pale conjunctiva Mouth is dry, no lesion Neck, Supple Heart: RRR with no murmurs Lungs: decreased breath sounds, no crackles Abdomen: soft, NT, BS+ Extr: Grade 1 lower leg edema Neuro: Somnolent, but follows basic commands, able to wake it up, confused and disoriented. Skin: no rashes Diagnosis, Assessment Plan Free text A P: Problem List: Severe lactic acidosis, secondary to metformin use? Presumed septic shock, unknown source Severe metabolic acidosis Acute renal failure Leukocytosis Dehydration Hypothermia Assessment and Plan: 74 years old female [...] with a creatinine of 3.9. Has received cefepime , vancomycin and 1 L of crystalloid with a right internal jugular central venous catheter in place. Upon my assessment her blood [...] is being admitted to medical ICU room #317 She is DNR/DNI Patient has profound gram-negative sepsis with severe metabolic and lactic acidosis She is awake, interactive minimally and follows some command Has lactic acid of 14.8 Has received 1 L of crystalloid so far Will be ordered 30 mL/kg body weight fluid resuscitation and repeat lactate within 3 hours Urine and blood cultures have been sent Patient received vancomycin and cefepime in the ER Broad-spectrum antibiotic coverage with vancomycin and Zosyn We will check C. difficile toxin and stool given diarrhea correction White count is elevated 22,000 Chest x-ray did not reveal any pneumonia/consolidation/atelectasis UA is positive for sediment consistent with UA Has profound hypercapnia with a CO2 of 9.5 mmol manifesting adequate respiratory compensation for profound lactic and metabolic acidosis pH is 6.8 Recheck ABG Patient is received total of 5 ampoules of sodium bicarbonate to a total of 250 mEq General surgery consult is being quested for question pneumoperitoneum on the chest x-ray CT of the abdomen pelvis report is awaited Concern for bowel ischemia Has significant hypothermia with a temperature of 33.1 C Patient is on bear hugger 09/27/2019 Severe lactic acidosis, secondary to metformin use?, Case discussed with nephrology extensively. Hemodialysis catheter was placed yesterday, the patient had a hemodialysis yesterday, and plan is to do hemodialysis today Acidosis improved, also the lactic acid has been trending down. Monitor electrolytes, monitor lactate. Plan is to replace electrolytes during hemodialysis Shortness of breath is better, patient currently on nasal cannula, keep O2 sats more than 90% Sepsis?, Source?, Continue Zosyn and vancomycin IV for now, MRSA screen came back positive, blood cultures are no growth today. White blood cell count is 19.7 Continue heparin for DVT prophylaxis Keep map more than 65 mmhg, currently patient is on Levophed and vasopressin drip, will try to wean pressors if possible. Continue sliding scale insulin, monitor glucose We will see if she can swallow today to see if we can start diet Bicarb drip has been stopped, acidemia resolving She is DNR/DNI Critical care time 31 minutes at 1251 RPT #:[id number] END OF REPORT [facility] 2019-09-27 07:11:00 [facility] Nephrology Progress Note REPORT#:[id number] REPORT STATUS: Signed DATE:09/27/19 TIME: 0711 PATIENT: MAC AGUSTIN UNIT #: [id number] ROOM/BED: [place] [address] : 47 AGE: 74 SEX: F ATTEND: Joel Myers MD ADM AUTHOR: Rabia Aguilar MD * ALL edits or amendments must be made on the electronic/computer document * Subjective Chief Complaint: AMS/Lactic acidosis/NATHEN Unable to obtain: patient condition Comments: Patient seen and evaluated, HPI no change from initial, more alert, answer simple questions Review of Systems Unable to obtain due to: Patient's condition Objective General VS/I O: Vital Signs: Date Time Temp Pulse Resp B/P B/P Pulse O2 O2 Flow FiO2 Mean Ox Delivery Rate 09/26 0350 96 High flow 11.957694 nasal cannula 09/26 0016 92 Nasal 5.612895 cannula 09/26 1999 Nasal 3.434847 cannula 09/26 1999 36.6 92 21 128/56 80 92 Nasal 3.241811 cannula 09/25 1900 96 27 118/60 86 92 09/25 1855 97 27 104/59 79 94 09/25 1850 96 25 115/56 78 94 09/25 1845 98 23 127/59 85 94 09/25 1844 97 22 118/62 84 94 09/25 1841 97 25 71/52 57 94 09/25 1836 97 24 127/80 97 96 09/25 1830 96 30 106/77 88 90 09/25 1820 96 26 111/56 79 78 09/25 1815 96 28 93/51 65 95 / 1812 94 37 129/51 74 96 09/25 1810 93 60 75/52 60 95 09/25 1804 97 22 136/100 113 94 09/25 1800 94 29 96 09/25 1756 97 35 110/74 89 96 09/25 1750 96 33 114/72 84 97 09/25 1746 101 27 110/50 72 82 /16 1745 98 28 93 09/25 1740 98 24 109/46 67 93 09/25 1735 94 36 104/51 73 96 09/25 1730 95 26 87 / 1725 98 29 109/55 77 94 09/25 1720 101 32 144/57 82 96 09/25 1719 98 37 124/55 73 96 09/25 1715 95 32 94 09/25 1711 97 54 226/144 179 97 09/25 1706 98 38 183/124 129 98 04/16 1700 97 37 113/54 78 98 04/16 1655 95 32 115/55 77 87 04/16 1650 97 28 117/58 83 98 04/16 1645 94 29 108/55 75 98 04/16 1640 94 30 110/53 77 97 04/16 1639 95 29 116/72 89 97 04/16 1630 86 33 125/54 78 88 04/16 1625 95 23 104/55 76 95 04/16 1620 96 25 105/53 76 95 04/16 1616 96 26 106/53 76 96 04/16 1615 94 29 95 04/16 1610 96 29 104/50 67 95 04/16 1606 94 34 90/46 66 97 04/16 1601 94 28 151/64 92 73 04/16 1600 93 28 77 04/16 1600 37.3 100 Room air 04/16 1600 36.7 94 32 125/54 77 94 Nasal 3.569854 cannula 04/16 1556 96 30 85/57 64 92 04/16 1550 97 29 94/50 67 97 04/16 1546 96 27 102/47 65 98 04/16 1545 96 20 98 04/16 1541 96 26 134/112 121 99 04/16 1536 97 26 97 04/16 1535 97 25 97/49 70 96 04/16 1530 99 27 118/58 83 96 04/16 1525 99 25 101/54 72 97 04/16 1521 104 28 96 04/16 1520 102 31 113/51 73 96 04/16 1517 100 22 156/64 92 100 04/16 1515 100 24 182/104 119 98 04/16 1510 101 29 120/56 81 100 04/16 1505 132 32 125/53 76 98 04/16 1500 103 19 113/63 80 100 04/16 1450 106 25 104/55 74 96 04/16 1446 105 26 98 04/16 1446 105 26 104/65 76 98 04/16 1445 103 21 98 04/16 1444 109 25 167/110 133 99 04/16 1436 109 19 130/56 80 99 04/16 1430 110 12 102/53 75 99 04/16 1425 114 14 100/52 71 99 04/16 1420 120 26 101/50 67 100 04/16 1415 116 22 96/55 72 98 04/16 1410 116 22 89/51 65 98 04/16 1405 118 24 78/46 57 98 04/16 1400 118 21 82/49 59 99 04/16 1355 122 21 79/52 61 98 04/16 1350 123 22 77/45 56 98 04/16 1345 123 22 84/42 58 98 04/16 1340 120 18 68/39 48 98 04/16 1335 115 23 66/40 46 98 04/16 1331 114 23 65/39 47 98 04/16 1330 116 22 69/34 44 98 04/16 1315 115 19 91/45 65 99 04/16 1312 116 28 99 04/16 1300 115 21 108/52 75 99 04/16 1245 114 19 104/53 76 99 04/16 1240 114 20 97/51 71 98 04/16 1235 113 20 93/55 71 99 04/16 1230 110 25 86/47 62 98 04/16 1225 109 21 80/41 55 98 04/16 1222 108 22 81/40 57 99 04/16 1220 106 31 74/39 51 99 04/16 1215 106 21 90/54 69 100 04/16 1212 101 28 84/46 60 99 04/16 1210 102 25 86/49 63 99 04/16 1205 106 21 95/55 71 98 04/16 1200 35.9 04/16 1200 103 21 92/53 70 99 04/16 1159 104 21 100/54 73 99 04/16 1150 105 23 81/45 59 98 04/16 1145 106 34 83/46 58 100 04/16 1140 105 21 89/51 66 100 04/16 1135 118 21 100/54 71 100 04/16 1130 106 20 97/52 71 99 04/16 1125 108 21 98/54 70 99 04/16 1120 104 20 98/51 69 99 04/16 1115 105 20 93/50 68 98 04/16 1110 106 20 92/52 69 98 04/16 1105 105 20 89/53 68 99 04/16 1100 106 20 89/49 66 99 04/16 1055 106 20 76/41 54 99 04/16 1050 109 21 75/39 52 99 04/16 1047 109 20 74/42 54 99 04/16 1045 111 21 74/43 54 99 04/16 1030 97 22 90/52 66 98 04/16 1021 98 23 98 09/25 0900 33.4 09/25 0815 Nasal 3.300258 cannula 09/25 0720 101 18 77/50 59 24 hour I O ending at 0700: 09/26 0700 09/25 1900 Intake Total 0 Output Total Balance 0 Intake, 0 Hemodialysis Patient 63.4 kg Weight Weight Bed scale Measurement Method Medications Active Meds + DC'd Last 24 Hrs Heparin Sodium 5,000 UNIT Q12HR SUBQ Magnesium Sulfate 50 ML ONCE ONE IV (DC) Sodium Phosphate 20 MMOL ONCE ONE IV (DC) Sodium Chloride 250 ML Piperacillin Sod/Tazobactam Sod 3.375 GM Q12H IV Sodium Chloride 100 ML Sodium Chloride 1,000 ML .Q8H IV (DC) Piperacillin Sod/Tazobactam Sod 3.375 GM Q8H IV (DC) Sodium Chloride 100 ML Phenylephrine HCl 30 MG ASDIR IV (CKD) Sodium Chloride 247 ML Sodium Chloride 500 ML ONCE ONE IV Insulin Human Lispro 0 Q6HR SUBQ Sodium Chloride 1,000 ML BOLUS ONCE IV (DC) Vasopressin 20 UNIT ASDIR IV (CKD) Sodium Chloride 100 ML Miscellaneous Information 1 EACH ASDIR IV (CKD) Sodium [...] 150 ML Q11H IV (DC) Dextrose/Water 1,000 ML Calcium Chloride 1 GM ONCE ONE IV (CAN) Sodium Chloride 100 ML Insulin Human Lispro 0 AC HS SUBQ (DC) Insulin Human Regular 10 UNITS ONCE ONE IV (CAN) Dextrose/Water 50 ML STAT STA IV (CAN) Vancomycin HCl 750 MG Q12H IV (CAN) Sodium Chloride 250 ML Norepinephrine Bitartrate 250 ML ASDIR PRN IV [...] Chloride 0 ASDIR PRN IV (DC) Physical Exam General appearance: alert, no acute distress Head/eyes: atraumatic, normocephalic ENT: normal nose Neck: supple/no meningismus Cardiovascular: normal heart sounds, no rub Respiratory: aerating well, symmetric expansion Abdomen: soft Genitourinary: ballard, urine Extremities: no edema Musculoskeletal: normal inspection Neuro/BACK SHOE WORKER: altered mental status Skin: dry Results Findings/Data: Laboratory Tests 09/26 09/25 09/25 09/25 0238 [...] 09/25 09/25 09/25 0115 0013 2145 2145 2145 Chemistry Sodium (134 - 147 mEq/L) 143 [...] Jefry (1.12 - 1.32 0.96 L 0.96 L MMOL/L) Phosphorus (2.5 - 4.9 MG/DL) 2.3 L Magnesium (1.8 - 2.4 mg/dL) 2.50 H LDL Cholesterol Measurd (0 - 100 67 mg/dL) 09/25 09/25 09/25 09/25 2145 1827 1655 [...] 09/25 09/25 09/25 09/25 1207 1205 1000 1000 Chemistry Sodium (134 - 147 mEq/L) 145 Potassium [...] (0.000 - 0.045 ng/mL) 0.033 09/25 09/25 2365 0346 Chemistry Sodium (134 - 147 mEq/L) 144 [...] Coagulation INR (0.8 - 1.2) 1.1 PTT ([place]) (25.0 - 39.5 Seconds) 22.2 L PT [...] - 32.0 %) 2.8 L 4.8 L K[place]haw % (Auto) (4.8 - 9.0 %) 6.5 3.2 L Eos % (Auto) (0.3 - 3.7 %) 1.1 0.1 L Baso % (Auto) (0.0 - 2.0 %) 0.2 0.1 Neut # (Auto) (2.0 - 7.6 x10 3/uL) 19.09 H 19.89 H Lymph # (Auto) (1.0 - 3.8 x10 3/uL) 0.61 L 1.06 [place]haw # (Auto) (0.1 - 0.8 x10 3/uL) [...] (Auto) (14.0 - 32.0 %) 4.8 L [place] % (Auto) (4.8 - 9.0 %) 12.3 H Eos % (Auto) (0.3 - 3.7 %) 0.0 L Baso % (Auto) (0.0 - 2.0 %) 0.2 Neut # (Auto) (2.0 - 7.6 x10 3/uL) 21.47 H Lymph # (Auto) (1.0 - 3.8 x10 3/uL) 1.26 K[place]haw # (Auto) (0.1 - 0.8 x10 3/uL) [...] pH (5.0 - 7.0) 5.0 Ur Specific [place] (1.005 - 1.030) 1.011 Urine Protein (NEGATIVE) [...] DNA Surveillance Screen - COMP NASAL Recent Impressions: RADIOLOGY - XR CHEST 1 V 09/25 0405 Report Impression - Status: SIGNED Entered: 09/26/2019 0413 IMPRESSION: Mildly hyperinflated, but clear lungs. Lucency beneath the left hemidiaphragm likely related to a mildly dilated gas-filled stomach. An upright view of the abdomen would be confirmatory and better exclude pneumoperitoneum. SL: TPAINTER-H Impression By: Bridget Edward M.D. RADIOLOGY - XR CHEST 1 V 09/25 0532 Report Impression - Status: SIGNED Entered: 09/26/2019 0546 IMPRESSION: Hypoinflation associated with interval right IJ central line insertion tip overlying the atriocaval junction without pneumothorax. SL: TPAINTER-H Impression By: Bridget Edward M.D. CAT SCAN - CT C-SPINE W/O CONT 09/25 0546 Report Impression - Status: SIGNED Entered: 09/26/2019 0607 IMPRESSION: Mild cervical spondylosis and facet arthrosis without acute fracture or dislocation. Mild chronic bilateral mastoiditis. SL: TPAINTER-H Impression By: Bridget Edward M.D. CAT SCAN - CT HEAD/BRAIN W/O CONT 09/25 0546 Report Impression - Status: SIGNED Entered: 09/26/2019 0612 IMPRESSION: Mild to moderate diffuse atrophy is present associated with mild nonspecific periventricular low attenuation most 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 No acute intracranial abnormality. Small old appearing lacunar infarctions in both basal ganglia and left thalamus. Mild chronic sinusitis. Minimal chronic bilateral mastoiditis. SL: TPAINTER-H Impression By: Bridget Edward M.D. CAT SCAN - CT CHEST W/O CONTRAST 09/25 545 Report Impression - Status: SIGNED Entered: 09/26/2019631 IMPRESSION: Nonspecific nonobstructive bowel gas pattern associated with mild diffuse colonic wall thickening either related to underdistention or nonspecific colitis. Mild submucosal fat seen in the colon suggest chronic colonic inflammatory change. Mild sigmoid diverticulosis. Moderately [...] injection. Postoperative change of cholecystectomy. SL: TPAINTER-H Impression By: Bridget Edward M.D. CAT SCAN - CT ABD PELVIS W/O CONT 09/25 545 Report Impression - Status: SIGNED Entered: 09/26/2019631 IMPRESSION: Nonspecific nonobstructive bowel gas pattern associated with mild diffuse colonic wall thickening either related to underdistention or nonspecific colitis. Mild submucosal fat seen in the colon suggest chronic colonic inflammatory change. Mild sigmoid diverticulosis. Moderately [...] injection. Postoperative change of cholecystectomy. SL: TPAINTER-H Impression By: [email or web address] - Amadeo Edward M.D. RADIOLOGY - XR CHEST 1 V 09/25 1231 Report Impression - Status: SIGNED Entered: 09/26/2019 1252 IMPRESSION: Right IJ catheter with its tip in the superior vena cava just above the level of the right atrium. No acute cardiopulmonary findings identified. Impression By: GaryCER - Tracy Johnson M.D. RADIOLOGY - XR CHEST 1 V 09/26 0748 Report Impression - Status: SIGNED Entered: 09/27/2019 0756 IMPRESSION: No acute abnormality as above discussed. SL: [id number] Impression By: [email or web address] - Collin Alvarenga M.D. Laboratory Tests 09/26 09/25 09/25 [...] 09/26 09/26 09/25 0544 0115 0115 0013 2145 Chemistry Sodium (134 - 147 mEq/L) 143 [...] Calcium Jefry (1.12 - 1.32 0.96 L MMOL/L) Phosphorus (2.5 - 4.9 MG/DL) 2.3 L Magnesium (1.8 - 2.4 mg/dL) 2.50 H 09/25 09/25 09/25 09/25 09/25 2145 2145 2145 1827 1655 Chemistry Sodium (134 - 147 mEq/L) [...] Calcium Jefry (1.12 - 1.32 0.96 L MMOL/L) Phosphorus (2.5 - 4.9 MG/DL) 1.6 L Magnesium (1.8 - 2.4 mg/dL) 2.40 Troponin I (0.000 - 0.045 ng/mL) 0.284 *H LDL Cholesterol Measurd (0 - 100 67 mg/dL) 09/25 09/25 09/25 09/25 09/25 1655 1000 1000 0730 0726 Chemistry Sodium (134 - 147 mEq/L) 141 145 [...] Jefry (1.12 - 1.32 0.98 L 1.07 L MMOL/L) Phosphorus (2.5 - 4.9 MG/DL) 1.2 L 9.2 *H Magnesium (1.8 - 2.4 mg/dL) 1.50 L 2.90 H Total Bilirubin (<1.5 MG/DL) 0.4 AST (15 - 37 IUnit/L) 43 H ALT (15 - 65 IUnit/L) 26 Total Alk Phosphatase (20 - 125 52 IUnit/L) Troponin I (0.000 - 0.045 ng/mL) 0.033 Total Protein (6.4 - 8.2 g/dL) 5.5 L Albumin (3.4 - 5.0 g/dL) 2.40 L Laboratory Tests 09/26 09/26 09/25 09/25 0500 0115 1655 0933 Hematology WBC (4.5 - 11.0 x10 3/uL) [...] %) 2.8 L 4.8 L 4.8 L K[place]haw % (Auto) (4.8 - 9.0 %) 6.5 3.2 L 12.3 H Eos % (Auto) (0.3 - 3.7 %) 1.1 0.1 L 0.0 L Baso % (Auto) (0.0 - 2.0 %) 0.2 0.1 0.2 Neut # (Auto) (2.0 - 7.6 x10 3/uL) 19.09 H 19.89 H 21.47 H Lymph # (Auto) (1.0 - 3.8 x10 3/uL) 0.61 L 1.06 1.26 Kershaw # (Auto) (0.1 - 0.8 x10 3/uL) 1.41 H 0.70 3.25 H Eos # (Auto) (0.0 - 0.2 x10 3/uL) 0.23 H 0.02 0.00 Baso # (Auto) (0.0 - 0.2 x10 3/uL) 0.04 0.03 0.05 Abs Immat Gran (auto) (0.00 - 0.03 0.18 H 0.21 H 0.41 H x10 3/uL) Add Manual Diff NO NO NO Immature Gran % (0.0 - 2.0 %) 0.8 1.0 1.6 Nucleated RBC % (0 - 0 %) 0.0 0.0 0.0 Nucleated RBCs # (Man) (0.0 - 0.1 0.00 0.00 0.00 x10 3/uL) Laboratory Tests 09/25 1000 Serology Hepatitis A IgM Ab (NON REACT. INDEX) NON REACTIVE Hep Bs Antigen (NonReactive INDEX) NON REACTIVE Hep B Core IgM Ab (NON REACT. INDEX) NON REACTIVE Hepatitis C Antibody (NON REACT. INDEX) NON REACTIVE Microbiology Date/Time Procedure - Status Source Growth 09/25 0730 MRSA DNA Surveillance Screen - COMP NASAL Diagnosis, Assessment Plan Free Text A P: Patient seen and evaluated, discussed with care team, images and laboratories reviewed. History of dementia History of rheumatoid arthritis History of frequent falls History of frequent UTIs History of hypertension: Currently hypotensive Hypokalemia: We will supplement Severe hypomagnesemia we will supplement Hypocalcemia: We will supplement Hypoalbuminemia Severe lactic acidosis: Etiology, could be related to septic shock, however source is unclear, rule out ischemic bowel, Cherisyn, will need to review her medications if patient has been on metformin, lactic acidosis due to metformin in the setting of acute renal failure is a possibility and will do hemodialysis in the setting. Patient has been taking Metformin 1000 BID, kenneth has lactic acidosis that is induced by Metformin, discussed with deysi and ICC/Primary team will proceed with HD 09/27/2019 mental status a lot better, hemodynamically more stable, pressors being weaned off, received 6 hours of hemodialysis yesterday, her last set of blood gas showed a pH of 7.40, PCO2 25, PO2 55, lactic acid 6.2 improving, sodium is 143 potassium 3.6 CO2 20 chloride 101 BUN 13 creatinine 1.1, hemoglobin this morning 9.7, white blood count 19.78 trending down, platelet 156 , her clinical picture is consistent with metformin induced lactic acidosis, will do another session of hemodialysis, 4 hours, potassium 3.5, no ultrafiltration, will give 20 mmol of potassium phosphate and expectation of hypophosphatemia during hemodialysis. katie and evaluated during HD, discussed with RN and HD nurse at 1229 RPT #:[id number] END OF REPORT [facility] 2019-09-26 12:01:00 [facility] ([facility]) DT Operative Note REPORT#:[id number] REPORT STATUS: Signed DATE:09/26/19 TIME: 1201 PATIENT: MAC AGUSTIN UNIT #: [id number] ROOM/BED: [place] [address] : 47 AGE: 74 SEX: F ATTEND: Joel Myers MD ADM AUTHOR: Mick Lin MD * ALL edits or amendments must be made on the electronic/computer document * Operative Report Operative Note Note: HEMODYALISIS LINE PLACEMENT PROCEDURE Procedure: RIJ CVL Indication: need for vasopressors, needs for HD catheter Flat Sorter Processor: Pia Lin Consent: in the chart d/w nephrology, plan is to do HD . Nephro talked to family. Date: 09/26/2019 11:45 AM Summary: Time out was called prior to beginning procedure. Using aseptic technique, the neck was prepped and draped in usual sterile fashion. [facility] already has a RIJ CVL. A guidewire was advanced thru the RIJ port CVL and then the CVL was removed. Puncture wound was made with scalpel and dilator was passed into the track with ease. A triple lumen HD catheter was then passed over the guidewire and guidewire was removed. All 3 ports were aspirated and flushed. The catheter was sutured to the skin and biopatch was placed around insertion site, and then dressed in sterile fashion. Chest x-ray ordered No immediate complications Estimated blood loss: less than 5 cc. at 1211 RPT #:[id number] END OF REPORT [facility] 2019-09-26 11:48:00 [facility] ([facility]) Pharmacy Prog.Note-Vancomycin REPORT#:[id number] REPORT STATUS: Signed DATE:09/26/19 TIME: 1148 PATIENT: MAC AGUSTIN UNIT #: [id number] RO[address]BED: [address] : 47 AGE: 74 SEX: F ATTEND: Joel Myers MD ADM AUTHOR: Kathia Varela [facility] * ALL edits or amendments must be made on the electronic/computer document * Vancomycin Vancomycin Treatment plan: consult, initiation of therapy Regimen: Ms. Agustin is a 74 yo female with dementia, DM2, Chronic pain, frequent UTI, DM2, RA, anxiety presented to ED from [facility] for concerns of abnormal labs, dehydration, NATHEN, suspect UTI. Dr. Lin consulted pharmacy to manage vancomyicn for sepsis with goal trough 15-20 mcg/mL. 09/25 A P day1 * WBC 26, LA 21, labile BP * Micro: blood cx 09/25 penidng, MRSA 09/25 screen pending * Images: CXR 09/25 clear lungs, CT abd 09/25: underdistention vs colitis ; gastritis vs neuplasm of the stomach * scr 3.9 -> 5.1 Pt in NATHEN. pt received 1 dose of vancomycin 1gm IV this AM. Will order random level with AM labs on 09/26 and will reschedule vancomycin. * Risk for accumulation: Zosyn * Pharmacy will f/u and adjust dose as appropriate. Appreciate consult, at 1149 RPT #:[id number] END OF REPORT [facility] 2019-09-26 11:17:00 [facility] ([facility]) Clinical Note REPORT#:[id number] REPORT STATUS: Signed DATE:09/26/19 TIME: 1117 PATIENT: MAC AGUSTIN UNIT #: [id number] ROOM/BED: [place] [address] : 47 AGE: 74 SEX: F ATTEND: Joel Myers MD ADM AUTHOR: Rabia Aguilar MD * ALL edits or amendments must be made on the electronic/computer document * Clinical Note Note: HD Indication: NATHEN/Severe acidosis/probable Metformin Toxicity HD 5 hours 3 .5 K HCO3 40 No UF QB350 QD 700 Patient seen and evaluated during HD, discussed with HD nurse at 1719 RPT #:[id number] END OF REPORT [facility] 2019-09-26 09:51:00 [facility] ([facility]) Hospitalist History Physical REPORT#:[id number] REPORT STATUS: Signed DATE:09/26/19 TIME: 0951 PATIENT: MAC AGUSTIN UNIT #: [id number] ROOM/BED: [place] [address] : 49 AGE: 74 SEX: F ATTEND: Joel Myers MD ADM AUTHOR: Marisabel Chu DO * ALL edits or amendments must be made on the electronic/computer document * History of Present Illness HPI Chief complaint: Unwell HPI: Ms. Agustin is a 74 yo female with dementia, DM2, Chronic pain, anxiety presented to ED from [facility] for concerns of abnormal labs and dehydration. Two daughters at bedside state that [place] has told them their mother has not been eating well for a few days, not feeling well. They have been unable to visit her due to social distancing lockdown for coronavirus. Unsure if patient has had any nausea, vomiting or diarrhea. Pt herself is minimally responsive and unable to answer questions. History Past medical history: Reports: Arthritis (RA), Dementia (Alzheimer's dementia), Depression/mood disorder (anxiety), Diabetes mellitus (type 2), Hypertension, Chronic pain. Additional medical history: Frequent UTI, incontinence of bladder and bowel, migraine headache, frequent falls Alcohol use: Denies EtOH use Drug use: Denies recreational drugs Smoking status for patients 13 years old or older: Unknown,if ever smoked Other social history: Lives in facility Medication/Allergy-Vaccine Hx Home Medications: ACETAMINOPHEN (TYLENOL) 500 MG PO Q6H PRN PRN HEADACHE busPIRone (BUSPAR) 5 MG PO BID DONEPEZIL (ARICEPT) 10 MG PO BEDTIME metFORMIN (GLUCOPHAGE) 1,000 MG PO BID QUEtiapine (SEROquel) 25 MG PO BEDTIME Discontinued Medications QUEtiapine (SEROquel) 25 MG PO BID Discontinued reason: Duplicate therapy Allergies: Coded Allergies: penicillamine (UNKNOWN 09/26/19) Unable to obtain: past surgical history, family history Review of Systems Unable to obtain due to: pt poorly responsive Objective General VS/I O: Vital Signs: Date Time Temp Pulse Resp B/P B/P Pulse O2 O2 Flow FiO2 Mean Ox Delivery Rate 09/25 0720 101 18 77/50 59 09/25 0452 Nasal 3.659891 cannula 09/25 0439 91.5 09/25 0339 113 26 139/94 109 95 Room air 24 hour I O ending at 0700: 09/25 0700 09/24 1900 Intake Total Output Total Balance Patient 61.4 kg Weight Weight Bed scale Measurement Method Patient Weight Weight (lb): Weight (oz): Weight (kg): 61.400 Medications: Active Meds + DC'd Last 24 Hrs Piperacillin Sod/Tazobactam Sod 3.375 GM Q8H IV Sodium Chloride 100 ML Magnesium Sulfate 50 ML Q6H IV (DC) Sodium Bicarbonate 150 ML Q11H IV (CKD) Dextrose/Water 1,000 ML Calcium Chloride 1 GM ONCE ONE IV (CAN) Sodium Chloride 100 ML Insulin Human Lispro 0 AC HS SUBQ Insulin Human Regular 10 UNITS ONCE ONE IV (CAN) Dextrose/Water 50 ML STAT STA IV (CAN) Vancomycin HCl 750 MG Q12H IV (UNV) Sodium Chloride 250 ML Norepinephrine Bitartrate 250 ML ASDIR PRN IV [...] X1ED STA IV (DC) Sodium Chloride 100 ML Lorazepam 2 MG ONCE ONE IV (DC) Sodium Chloride 0 ASDIR PRN IV Lorazepam 0 .STK-MED ONE IV (DC) Magnesium Sulfate 100 ML X1ED STA IV (DC) Calcium Gluconate 1,000 MG X1ED STA IV (DC) Sodium Chloride 50 ML Calcium Gluconate 1,000 MG X1ED STA IV (DC) Sodium Chloride 50 ML Sodium Bicarbonate 150 MEQ X1ED STA IV (DC) Cefepime HCl 2 GM X1ED STA IV (DC) Sodium Chloride 20 ML Vancomycin HCl 1,000 MG X1ED STA IV (DC) Sodium Chloride 250 ML Sodium Chloride 1,000 ML X1ED STA IV (DC) Sodium Chloride 1,000 ML X1ED STA IV Sodium Chloride 0 ASDIR PRN IV Physical Exam General appearance: chronically ill appearing, responsiveness (poor), asleep, loudly snoring Head/Eyes: atraumatic, normocephalic, PERRL ENT: dry mucosal membrane, poor dentition, normal ear left, normal ear right, normal nose Neck: no JVD, no masses or swelling Cardiovascular: normal heart sounds, regular rate rhythm Respiratory: no distress, referred upper airway noise makes it difficult to ascertain clarity of lungs, pt's breathing is unlabored Abdomen: non-tender, normal bowel sounds, soft, no distention, no guarding, no rebound Genitourinary: no bladder distention Extremities: edema (trace BLE), no clubbing, no cyanosis Musculoskeletal: normal inspection 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 moves limbs independently Skin: dry, intact, normal color, normal temperature, no rash Lymphatics: neck normal Psychiatry: unable to evaluate Results Findings/Data: Laboratory Tests 09/25 09/25 0951 0452 Blood Gas [...] (0.000 - 0.045 ng/mL) 0.033 09/25 09/25 2705 0345 Chemistry Sodium (134 - 147 mEq/L) [...] Coagulation INR (0.8 - 1.2) 1.1 PTT ([place]) (25.0 - 39.5 Seconds) 22.2 L PT [...] pH (5.0 - 7.0) 5.0 Ur Specific [place] (1.005 - 1.030) 1.011 Urine Protein (NEGATIVE) [...] Urine Yeast (NONE /HPF) 1+ H Radiology data: Recent Impressions: RADIOLOGY - XR CHEST 1 V 09/25 0405 Report Impression - Status: SIGNED Entered: 09/26/2019 0413 IMPRESSION: Mildly hyperinflated, but clear lungs. Lucency beneath the left hemidiaphragm likely related to a mildly dilated gas-filled stomach. An upright view of the abdomen would be confirmatory and better exclude pneumoperitoneum. SL: TPAINTER-H Impression By: Bridget Edward M.D. RADIOLOGY - XR CHEST 1 V 09/25 0532 Report Impression - Status: SIGNED Entered: 09/26/2019 0546 IMPRESSION: Hypoinflation associated with interval right IJ central line insertion tip overlying the atriocaval junction without pneumothorax. SL: TPAINTER-H Impression By: Bridget Edward M.D. CAT SCAN - CT C-SPINE W/O CONT 09/25 0546 Report Impression - Status: SIGNED Entered: 09/26/2019 0607 IMPRESSION: Mild cervical spondylosis and facet arthrosis without acute fracture or dislocation. Mild chronic bilateral mastoiditis. SL: TPAINTER-H Impression By: Bridget Edward M.D. CAT SCAN - CT HEAD/BRAIN W/O CONT 09/25 0546 Report Impression - Status: SIGNED Entered: 09/26/2019 0612 IMPRESSION: Mild to moderate diffuse atrophy is present associated with mild nonspecific periventricular low attenuation most 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 No acute intracranial abnormality. Small old appearing lacunar infarctions in both basal ganglia and left thalamus. Mild chronic sinusitis. Minimal chronic bilateral mastoiditis. SL: TPAINTER-H Impression By: Bridget Edward M.D. CAT SCAN - CT CHEST W/O CONTRAST 09/25 545 Report Impression - Status: SIGNED Entered: 09/26/2019631 IMPRESSION: Nonspecific nonobstructive bowel gas pattern associated with mild diffuse colonic wall thickening either related to underdistention or nonspecific colitis. Mild submucosal fat seen in the colon suggest chronic colonic inflammatory change. Mild sigmoid diverticulosis. Moderately [...] injection. Postoperative change of cholecystectomy. SL: TPAINTER-H Impression By: Bridget Edward M.D. CAT SCAN - CT ABD PELVIS W/O CONT 09/25 545 Report Impression - Status: SIGNED Entered: 09/26/2019631 IMPRESSION: Nonspecific nonobstructive bowel gas pattern associated with mild diffuse colonic wall thickening either related to underdistention or nonspecific colitis. Mild submucosal fat seen in the colon suggest chronic colonic inflammatory change. Mild sigmoid diverticulosis. Moderately [...] injection. Postoperative change of cholecystectomy. SL: TPAINTER-H Impression By: [email or web address] - Amadeo Edward M.D. Diagnosis, Assessment Plan Free Text DxA P Notes Free text DxA P notes: Severe lactic acidosis Severe metabolic acidosis Acute renal failure Hypocalcemia Hypomagnesemia ?Septic shock vs lactic acidosis from metformin Dehydration Hypothermia DM HTN Dementia with behavior disturbance Plan: Ms. Agustin is a 74 yo female with non-specific symptoms of not feeling well, poor appetite that was found to have abnormal labs at [place], sent to ED for evaluation. In the [...] ischemic bowel. Will continue empiric Zosyn. - Zosyn - blood cultures pending - hold home meds - Accuchecks and SSI - replace electrolytes - heparin for DVT prophylaxsis at 1017 RPT #:[id number] END OF REPORT [facility] 2019-09-26 08:35:00 [facility] ([facility]) Nephrology Consultation Note REPORT#:[id number] REPORT STATUS: Signed DATE:09/26/19 TIME: 834 PATIENT: MAC AGUSTIN UNIT #: [id number] ROOM[address]BED[address] : [address] AGE: 74 SEX: F ATTEND: Joel Myers MD ADM AUTHOR: Rabia Aguilar MD * ALL edits or amendments must be made on the electronic/computer document * History of Present Illness Requesting clinician: Joel Myers Reason for consult: Elevated Creatinine/severe acidosis Chief complaint: Patient is unwell with abnormal labs HPI: Patient seen and evaluated, discussed with care team, 72-year-old female correction resident with history of diabetes mellitus type 2, dementia, frequent falls , rheumatoid arthritis, hypertension and frequent UTI who was sent to the emergency room via EMS from [facility] for being unwell and abnormal laboratories showing rise in her serum creatinine and low bicarbonate. In the emergency room her laboratories showed hemoglobin 13.5, white blood count 22.5, CO2 platelet 331, blood gas showed severe acidosis with a pH of 6.87, CO2 9.5, her lactic acid was 19.1, sodium 144, potassium 3.2, CO2 of 4 on the blood chemistry, chloride 114, BUN 69, creatinine 3.9, magnesium 0.9, calcium 5.6 with an albumin of 2.3, urinalysis showed 4-9 white blood cells and 2+ protein and 2+ glucose. Her CT scan of the head did not show any acute changes, chest x-ray and CT scan of the chest also did not show any acute changes. CT scan of the abdomen and pelvis also without significant changes. Renal consult was requested for evaluation and management of her elevated BUN carried creatinine, severe acidosis and electrolyte abnormalities. History - Adult longitudinal Smoking status for patients 13 years old or older: Unknown,if ever smoked Medications: Current Hospital Medications: Anti-Infective Agents Sig/[place] Start time Last Medication [...] 07 CAN (HUMAN INSULIN REG) IV 09/25 730 Glucagon 1 MG ASDIR PRN 09/25 629 AC (GLUCAGON) IM 09/26 05 Pharmaceutical Aids Sig/[place] Mary Start time Last Medication Dose Route Stop Time Status Admin Sterile Water 1.2 ML ASDIR 09/25 629 AC (WATER FOR INJECTION) IM 09/26 0524 Allergies: Coded Allergies: penicillamine (UNKNOWN 09/26/19) Unable to obtain: past medical history, past surgical history, family history, smoking history, social history Unobtainable due to: Patient's condition Review of Systems Unable to obtain due to: Patient's condition Objective General VS/I O: Vital Signs: Date Time Temp Pulse Resp B/P B/P Pulse O2 O2 Flow FiO2 Mean Ox Delivery Rate 09/25 07 101 18 77/50 59 09/25 0452 Nasal 3.779962 cannula 09/25 0439 33.1 09/25 0339 113 26 139/94 109 95 Room air 24 hour I O ending at 0700: 09/25 0700 09/24 1900 Intake Total Output Total Balance Patient 61.4 kg Weight Weight Bed scale Measurement Method Patient Weight Weight (lb): Weight (oz): Weight (kg): 61.400 Medications: Active Meds + DC'd Last 24 Hrs Piperacillin Sod/Tazobactam Sod 3.375 GM Q8H IV Sodium Chloride 100 ML Calcium Chloride 1 GM ONCE ONE IV (CAN) Sodium Chloride 100 ML Insulin Human Lispro 0 AC HS SUBQ Insulin Human Regular 10 UNITS ONCE ONE IV (CAN) Dextrose/Water 50 ML STAT STA IV (CAN) Vancomycin HCl 750 MG Q12H IV (UNV) Sodium Chloride 250 ML Norepinephrine Bitartrate 250 ML ASDIR PRN IV [...] X1ED STA IV (DC) Sodium Chloride 100 ML Lorazepam 2 MG ONCE ONE IV (DC) Sodium Chloride 0 ASDIR PRN IV Lorazepam 0 .STK-MED ONE IV (DC) Magnesium Sulfate 100 ML X1ED STA IV (DC) Calcium Gluconate 1,000 MG X1ED STA IV (DC) Sodium Chloride 50 ML Calcium Gluconate 1,000 MG X1ED STA IV (DC) Sodium Chloride 50 ML Sodium Bicarbonate 150 MEQ X1ED STA IV (DC) Cefepime HCl 2 GM X1ED STA IV (DC) Sodium Chloride 20 ML Vancomycin HCl 1,000 MG X1ED STA IV (DC) Sodium Chloride 250 ML Sodium Chloride 1,000 ML X1ED STA IV (DC) Sodium Chloride 1,000 ML X1ED STA IV Sodium Chloride 0 ASDIR PRN IV Physical Exam General appearance: respiratory support Head/eyes: atraumatic, normocephalic ENT: ET tube Neck: supple/no meningismus Cardiovascular: normal heart sounds, no rub Respiratory: aerating well, symmetric expansion Abdomen: soft Genitourinary: ballard, urine Extremities: no edema Musculoskeletal: normal inspection Neuro/BACK SHOE WORKER: altered mental status Skin: dry Results Findings/Data: Laboratory Tests 09/25 09/25 0951 0452 Blood Gas [...] Delivery Device Cannula Room Air Laboratory Tests 0409/25 1000 0730 0726 0625 0355 Chemistry Sodium (134 - 147 mEq/L) 145 Potassium [...] Ionized Calcium [place] (1.12 - 1.32 1.07 L MMOL/L) Magnesium (1.8 - 2.4 mg/dL) 2.90 H Total Bilirubin (<1.5 MG/DL) 0.4 AST (15 - 37 IUnit/L) 43 H ALT (15 - 65 IUnit/L) 26 Total Alk Phosphatase (20 - 125 52 IUnit/L) Troponin I (0.000 - 0.045 ng/mL) 0.033 [...] (Auto) (14.0 - 32.0 %) 4.8 L [place] % (Auto) (4.8 - 9.0 %) 12.3 H Eos % (Auto) (0.3 - 3.7 %) 0.0 L Baso % (Auto) (0.0 - 2.0 %) 0.2 Neut # (Auto) (2.0 - 7.6 x10 3/uL) 21.47 H Lymph # (Auto) (1.0 - 3.8 x10 3/uL) 1.26 [place] # (Auto) (0.1 - 0.8 x10 3/uL) [...] pH (5.0 - 7.0) 5.0 Ur Specific [place] (1.005 - 1.030) 1.011 Urine Protein (NEGATIVE) [...] Urine Yeast (NONE /HPF) 1+ H Recent Impressions: RADIOLOGY - XR CHEST 1 V 09/25 0405 Report Impression - Status: SIGNED Entered: 09/26/2019 0413 IMPRESSION: Mildly hyperinflated, but clear lungs. Lucency beneath the left hemidiaphragm likely related to a mildly dilated gas-filled stomach. An upright view of the abdomen would be confirmatory and better exclude pneumoperitoneum. SL: TPAINTER-H Impression By: Bridget Edward M.D. RADIOLOGY - XR CHEST 1 V 09/25 0532 Report Impression - Status: SIGNED Entered: 09/26/2019 0546 IMPRESSION: Hypoinflation associated with interval right IJ central line insertion tip overlying the atriocaval junction without pneumothorax. SL: TPAINTER-H Impression By: Bridget Edward M.D. CAT SCAN - CT C-SPINE W/O CONT 09/25 0546 Report Impression - Status: SIGNED Entered: 09/26/2019 0607 IMPRESSION: Mild cervical spondylosis and facet arthrosis without acute fracture or dislocation. Mild chronic bilateral mastoiditis. SL: TPAINTER-H Impression By: Bridget Edward M.D. CAT SCAN - CT HEAD/BRAIN W/O CONT 09/25 0546 Report Impression - Status: SIGNED Entered: 09/26/2019 0612 IMPRESSION: Mild to moderate diffuse atrophy is present associated with mild nonspecific periventricular low attenuation most 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 No acute intracranial abnormality. Small old appearing lacunar infarctions in both basal ganglia and left thalamus. Mild chronic sinusitis. Minimal chronic bilateral mastoiditis. SL: TPAINTER-H Impression By: Bridget Edward M.D. CAT SCAN - CT CHEST W/O CONTRAST 09/25 0546 Report Impression - Status: SIGNED Entered: 09/26/2019 0632 IMPRESSION: Nonspecific nonobstructive bowel gas pattern associated with mild diffuse colonic wall thickening either related to underdistention or nonspecific colitis. Mild submucosal fat seen in the colon suggest chronic colonic inflammatory change. Mild sigmoid diverticulosis. Moderately [...] injection. Postoperative change of cholecystectomy. SL: TPAINTER-H Impression By: Bridget Edward M.D. CAT SCAN - CT ABD PELVIS W/O CONT 09/25 0553 Report Impression - Status: SIGNED Entered: 09/26/2019 0632 IMPRESSION: Nonspecific nonobstructive bowel gas pattern associated with mild diffuse colonic wall thickening either related to underdistention or nonspecific colitis. Mild submucosal fat seen in the colon suggest chronic colonic inflammatory change. Mild sigmoid diverticulosis. Moderately [...] injection. Postoperative change of cholecystectomy. SL: TPAINTER-H Impression By: Bridget Edward M.D. Laboratory Tests 09/25 [...] 09/25 09/25 09/25 0726 0625 0355 0348 0345 Chemistry POC Glucose (70 - 110 MG/DL) 107 147 H Lactic Acid (0.4 - 1.9 mmol/l) 19.1 *H 14.8 *H B-Natriuretic Peptide (0 - 100 304.2 H PG/ML) 09/25 344 Chemistry Sodium (134 - 147 [...] - 5.47 IU/mL) 0.68 Laboratory Tests 09/25 5919 Coagulation INR (0.8 - 1.2) 1.1 PTT ([place]) (25.0 - 39.5 Seconds) 22.2 L PT [...] pH (5.0 - 7.0) 5.0 Ur Specific [place] (1.005 - 1.030) 1.011 Urine Protein (NEGATIVE) [...] Urine Yeast (NONE /HPF) 1+ H Recent Impressions: RADIOLOGY - XR CHEST 1 V 09/25 0405 Report Impression - Status: SIGNED Entered: 09/26/2019 0413 IMPRESSION: Mildly hyperinflated, but clear lungs. Lucency beneath the left hemidiaphragm likely related to a mildly dilated gas-filled stomach. An upright view of the abdomen would be confirmatory and better exclude pneumoperitoneum. SL: TPAINTER-H Impression By: Bridget Edward M.D. RADIOLOGY - XR CHEST 1 V 09/25 0532 Report Impression - Status: SIGNED Entered: 09/26/2019 0546 IMPRESSION: Hypoinflation associated with interval right IJ central line insertion tip overlying the atriocaval junction without pneumothorax. SL: TPAINTER-H Impression By: Bridget Edward M.D. CAT SCAN - CT C-SPINE W/O CONT 09/25 545 Report Impression - Status: SIGNED Entered: 09/26/2019 0607 IMPRESSION: Mild cervical spondylosis and facet arthrosis without acute fracture or dislocation. Mild chronic bilateral mastoiditis. SL: TPAINTER-H Impression By: Bridget Edward M.D. CAT SCAN - CT HEAD/BRAIN W/O CONT 09/25 0446 Report Impression - Status: SIGNED Entered: 09/26/2019 0612 IMPRESSION: Mild to moderate diffuse atrophy is present associated with mild nonspecific periventricular low attenuation most 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 No acute intracranial abnormality. Small old appearing lacunar infarctions in both basal ganglia and left thalamus. Mild chronic sinusitis. Minimal chronic bilateral mastoiditis. SL: TPAINTER-H Impression By: Bridget Edward M.D. CAT SCAN - CT CHEST W/O CONTRAST 09/25 0446 Report Impression - Status: SIGNED Entered: 09/26/2019 0632 IMPRESSION: Nonspecific nonobstructive bowel gas pattern associated with mild diffuse colonic wall thickening either related to underdistention or nonspecific colitis. Mild submucosal fat seen in the colon suggest chronic colonic inflammatory change. Mild sigmoid diverticulosis. Moderately [...] injection. Postoperative change of cholecystectomy. SL: TPAINTER-H Impression By: Bridget Edward M.D. CAT SCAN - CT ABD PELVIS W/O CONT 09/25 0571 Report Impression - Status: SIGNED Entered: 09/26/2019 0632 IMPRESSION: Nonspecific nonobstructive bowel gas pattern associated with mild diffuse colonic wall thickening either related to underdistention or nonspecific colitis. Mild submucosal fat seen in the colon suggest chronic colonic inflammatory change. Mild sigmoid diverticulosis. Moderately [...] injection. Postoperative change of cholecystectomy. SL: TPAINTER-H Impression By: Bridget Edward M.D. Laboratory Tests 09/25 [...] 09/25 09/25 09/25 0726 0625 0355 0348 0345 Chemistry POC Glucose [...] pH (5.0 - 7.0) 5.0 Ur Specific [place] (1.005 - 1.030) 1.011 Urine Protein (NEGATIVE) [...] Diagnosis, Assessment Plan Free Text DxA P Notes Free Text DxA P Notes: Patient seen and evaluated, discussed with care team, images and laboratories reviewed. History of dementia History of rheumatoid arthritis History of frequent falls History of frequent UTIs History of hypertension: Currently hypotensive Hypokalemia: We will supplement Severe hypomagnesemia we will supplement Hypocalcemia: We will supplement Hypoalbuminemia Severe lactic acidosis: Etiology, could be related to septic shock, however source is unclear, rule out ischemic bowel, Joanien, will need to review her medications if patient has been on metformin, lactic acidosis due to metformin in the setting of acute renal failure is a possibility and will do hemodialysis in the setting. Patient has been taking Metformin 1000 BID, kenneth has lactic acidosis that is induced by Metformin, discussed with deysi and ICC/Primary team will proceed with HD at 1122 RPT #:[id number] END OF REPORT [facility] 2019-09-26 07:00:00 [facility] ([facility]) Critical Care Consult Note REPORT#:[id number] REPORT STATUS: Signed DATE:09/26/19 TIME: 0700 PATIENT: MAC AGUSTIN UNIT #: [id number] ROOM/BED: [place] [address] : 47 AGE: 74 SEX: F ATTEND: Joel Myers MD ADM AUTHOR: Israel Vaughan MD * ALL edits or amendments must be made on the electronic/computer document * History of Present Illness HPI Requesting clinician: ER Physician Reason for consult: Severe sepsis and septic shock Urine tract infection Severe lactic acidosis Severe metabolic acidosis Acute renal failure Leukocytosis Dehydration Diarrhea Hypothermia Chief complaint: Not feeling well Low urine output Altered mental status Increased thirst Decreased p.o. intake HPI: 74 years old female [...] with a creatinine of 3.9. Has received cefepime , vancomycin and 1 L of crystalloid with a right internal jugular central venous catheter in place. Upon my assessment her blood [...] medical ICU room #317. History - Adult longitudinal Smoking status for patients 13 years old or older: Unknown,if ever smoked Medications: Current Hospital Medications: Anti-Infective Agents Sig/Rose Mary Start time Last Medication Dose Route Stop Time Status Admin Piperacillin Sod/ 3.375 GM Q8H 09/25 0615 UNV Tazobactam Sod IV 10/09 0614 (ZOSYN 3.375GM) Sodium Chloride 100 ML (SODIUM [...] 09/25 06 AC (WATER FOR INJECTION) IM 04/17 0524 Allergies: Coded Allergies: penicillamine (UNKNOWN 09/26/19) Review of Systems Unable to obtain due to: Patient is profoundly acidotic both metabolic and lactic, opens eyes, answers yes and no questions but did not follow commands very well. Objective Physical Exam: VS/I O: Last Documented: Result Date Time O2 Delivery Nasal cannula 09/26 451 O2 Flow Rate 3.449066 09/26 451 Temp 33.1 09/25 0439 Pulse Ox 95 09/25 0339 B/P 139/94 09/25 0339 B/P Mean 109 09/25 033 Pulse 113 09/25 0339 Resp 26 09/25 338 24 hour I O ending at 0700: 09/25 0700 09/24 1900 Intake Total Output Total Balance Patient 61.4 kg Weight Weight Bed scale Measurement Method Medications: Active Meds + DC'd Last 24 Hrs Insulin Human Lispro 0 AC HS SUBQ Piperacillin Sod/Tazobactam Sod 3.375 GM Q8H IV (UNV) Sodium Chloride 100 ML Vancomycin HCl 750 MG Q12H IV (UNV) Sodium Chloride 250 ML Norepinephrine Bitartrate 250 ML ASDIR PRN IV [...] X1ED STA IV (DC) Sodium Chloride 100 ML Lorazepam 2 MG ONCE ONE IV (DC) Sodium Chloride 0 ASDIR PRN IV Lorazepam 0 .STK-MED ONE IV (DC) Magnesium Sulfate 100 ML X1ED STA IV Calcium Gluconate 1,000 MG X1ED STA IV (DC) Sodium Chloride 50 ML Calcium Gluconate 1,000 MG X1ED STA IV (DC) Sodium Chloride 50 ML Sodium Bicarbonate 150 MEQ X1ED STA IV (DC) Cefepime HCl 2 GM X1ED STA IV (DC) Sodium Chloride 20 ML Vancomycin HCl 1,000 MG X1ED STA IV (DC) Sodium Chloride 250 ML Sodium Chloride 1,000 ML X1ED STA IV (DC) Sodium Chloride 1,000 ML X1ED STA IV Sodium Chloride 0 ASDIR PRN IV General appearance: altered mental status, chronically ill appearing, frail, lethargic, awake Head/Eyes: atraumatic, normocephalic, PERRL ENT: dry mucosal membrane, normal nose Neck: normal thyroid, supple/no meningismus, no bruit/NL carotids, no JVD, no lymphadenopathy Cardiovascular: tachycardia, normal heart sounds, normal S1 S2, no rub, no gallop Respiratory/Chest: decreased breath sounds, clear to auscultation, symmetric expansion, no tenderness, dyspnea, tachypnea Abdomen: soft, non-tender, normal bowel sounds, no distention, no guarding, no mass/organomegaly Genitourinary: ballard, no bladder distention, no flank pain Extremities: no calf tenderness, no cyanosis, no edema, no pedal edema Musculoskeletal: decreased ROM Neuro/BACK SHOE WORKER: no sensory deficits Results: Findings/Data: Laboratory Tests 09/26/19 0345: [Embedded Image Not Available] Laboratory Tests 09/25 0452 Blood Gas Puncture [...] pH (5.0 - 7.0) 5.0 Ur Specific [place] (1.005 - 1.030) 1.011 Urine Protein (NEGATIVE) [...] TRACE Urine Yeast (NONE /HPF) 1+ H Microbiology: 09/26 399 BLOOD: Blood Culture - RECD 09/25 344 BLOOD: Blood Culture - RECD 09/25 340 NASAL: MRSA DNA Surveillance Screen - ORD Radiology data: Recent Impressions: RADIOLOGY - XR CHEST 1 V 09/25 404 Report Impression - Status: SIGNED Entered: 09/26/2019412 IMPRESSION: Mildly hyperinflated, but clear lungs. Lucency beneath the left hemidiaphragm likely related to a mildly dilated gas-filled stomach. An upright view of the abdomen would be confirmatory and better exclude pneumoperitoneum. SL: TPAINTER-H Impression By: [email or web address] - Amadeo Edward M.D. RADIOLOGY - XR CHEST 1 V 09/26 531 Report Impression - Status: SIGNED Entered: 09/26/2019545 IMPRESSION: Hypoinflation associated with interval right IJ central line insertion tip overlying the atriocaval junction without pneumothorax. SL: TPAINTER-H Impression By: Bridget Edward M.D. CAT SCAN - CT C-SPINE W/O CONT 09/25 545 Report Impression - Status: SIGNED Entered: 09/26/2019 06 IMPRESSION: Mild cervical spondylosis and facet arthrosis without acute fracture or dislocation. Mild chronic bilateral mastoiditis. SL: TPAINTER-H Impression By: Bridget Edward M.D. CAT SCAN - CT HEAD/BRAIN W/O CONT 09/25 545 Report Impression - Status: SIGNED Entered: 09/26/2019611 IMPRESSION: Mild to moderate diffuse atrophy is present associated with mild nonspecific periventricular low attenuation most 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 No acute intracranial abnormality. Small old appearing lacunar infarctions in both basal ganglia and left thalamus. Mild chronic sinusitis. Minimal chronic bilateral mastoiditis. SL: TPAINTER-H Impression By: Bridget Edward M.D. CAT SCAN - CT CHEST W/O CONTRAST 09/25 545 Report Impression - Status: SIGNED Entered: 09/26/2019631 IMPRESSION: Nonspecific nonobstructive bowel gas pattern associated with mild diffuse colonic wall thickening either related to underdistention or nonspecific colitis. Mild submucosal fat seen in the colon suggest chronic colonic inflammatory change. Mild sigmoid diverticulosis. Moderately [...] injection. Postoperative change of cholecystectomy. SL: TPAINTER-H Impression By: Bridget Edward M.D. CAT SCAN - CT ABD PELVIS W/O CONT 09/25 0546 Report Impression - Status: SIGNED Entered: 09/26/2019 0632 IMPRESSION: Nonspecific nonobstructive bowel gas pattern associated with mild diffuse colonic wall thickening either related to underdistention or nonspecific colitis. Mild submucosal fat seen in the colon suggest chronic colonic inflammatory change. Mild sigmoid diverticulosis. Moderately [...] injection. Postoperative change of cholecystectomy. SL: TPAINTER-H Impression By: Bridget Edward M.D. Diagnosis, Assessment Plan Diagnosis, Assessment Plan Problem List/A P: 1. Acute renal failure 2. Hyperkalemia 3. Physical deconditioning 4. Hypomagnesemia 5. Sepsis 6. Acute hypoactive delirium due to another medical condition 7. Lactic acidosis 8. Arterial hypotension Free Text A P: Problem List: Severe sepsis and septic shock Urine tract infection Severe lactic acidosis Severe metabolic acidosis Acute renal failure Leukocytosis Dehydration Diarrhea Hypothermia Assessment and Plan: 74 years old female [...] with a creatinine of 3.9. Has received cefepime , vancomycin and 1 L of crystalloid with a right internal jugular central venous catheter in place. Upon my assessment her blood [...] is being admitted to medical ICU room #317 She is DNR/DNI Patient has profound gram-negative sepsis with severe metabolic and lactic acidosis She is awake, interactive minimally and follows some command Has lactic acid of 14.8 Has received 1 L of crystalloid so far Will be ordered 30 mL/kg body weight fluid resuscitation and repeat lactate within 3 hours Urine and blood cultures have been sent Patient received vancomycin and cefepime in the ER Broad-spectrum antibiotic coverage with vancomycin and Zosyn We will check C. difficile toxin and stool given diarrhea correction White count is elevated 22,000 Chest x-ray did not reveal any pneumonia/consolidation/atelectasis UA is positive for sediment consistent with UA Has profound hypercapnia with a CO2 of 9.5 mmol manifesting adequate respiratory compensation for profound lactic and metabolic acidosis pH is 6.8 Recheck ABG Patient is received total of 5 ampoules of sodium bicarbonate to a total of 250 mEq General surgery consult is being quested for question pneumoperitoneum on the chest x-ray CT of the abdomen pelvis report is awaited Concern for bowel ischemia Has significant hypothermia with a temperature of 33.1 C Patient is on bear hugger DVT and GI prophylaxis Israel Vaughan MD [facility] 09/26/2019 7.25 AM Consultants: critical care/screening technician, hospitalist, nephrology Plan discussed with: nurse Critical care time: Minutes: 65 Code Status/Resusc. Discussion Code status: do not resuscitate at 0726 RPT #:[id number] END OF REPORT [facility] 2019-09-26 07:00:00 [facility] ([facility]) Critical Care Consult Note REPORT#:[id number] REPORT STATUS: Signed DATE:09/26/19 TIME: 0700 PATIENT: MAC AGUSTIN UNIT #: [id number] ROOM/BED: [place] [address] : 47 AGE: 74 SEX: F ATTEND: Joel Myers MD ADM AUTHOR: Israel Vaughan MD * ALL edits or amendments must be made on the electronic/computer document * See Addendum History of Present Illness HPI Requesting clinician: ER Physician Reason for consult: Severe sepsis and septic shock Urine tract infection Severe lactic acidosis Severe metabolic acidosis Acute renal failure Leukocytosis Dehydration Diarrhea Hypothermia Chief complaint: Not feeling well Low urine output Altered mental status Increased thirst Decreased p.o. intake HPI: 74 years old female [...] with a creatinine of 3.9. Has received cefepime , vancomycin and 1 L of crystalloid with a right internal jugular central venous catheter in place. Upon my assessment her blood [...] medical ICU room #317. History - Adult longitudinal Smoking status for patients 13 years old or older: Unknown,if ever smoked Medications: Current Hospital Medications: Anti-Infective Agents Sig/Rose Mary Start time Last Medication Dose Route Stop Time Status Admin Piperacillin Sod/ 3.375 GM Q8H 09/25 0615 UNV Tazobactam Sod IV 10/09 0614 (ZOSYN 3.375GM) Sodium Chloride 100 ML (SODIUM [...] AC (WATER FOR INJECTION) IM 09/26 0524 Allergies: Coded Allergies: penicillamine (UNKNOWN 09/26/19) Review of Systems Unable to obtain due to: Patient is profoundly acidotic both metabolic and lactic, opens eyes, answers yes and no questions but did not follow commands very well. Objective Physical Exam: VS/I O: Last Documented: Result Date Time O2 Delivery Nasal cannula 09/26 451 O2 Flow Rate 3.396390 09/26 451 Temp 33.1 09/25 0439 Pulse Ox 95 09/25 0339 B/P 139/94 09/25 0339 B/P Mean 109 09/25 338 Pulse 113 09/25 0339 Resp 26 09/25 033 24 hour I O ending at 0700: 09/25 0700 09/24 1900 Intake Total Output Total Balance Patient 61.4 kg Weight Weight Bed scale Measurement Method Medications: Active Meds + DC'd Last 24 Hrs Insulin Human Lispro 0 AC HS SUBQ Piperacillin Sod/Tazobactam Sod 3.375 GM Q8H IV (UNV) Sodium Chloride 100 ML Vancomycin HCl 750 MG Q12H IV (UNV) Sodium Chloride 250 ML Norepinephrine Bitartrate 250 ML ASDIR PRN IV [...] X1ED STA IV (DC) Sodium Chloride 100 ML Lorazepam 2 MG ONCE ONE IV (DC) Sodium Chloride 0 ASDIR PRN IV Lorazepam 0 .STK-MED ONE IV (DC) Magnesium Sulfate 100 ML X1ED STA IV Calcium Gluconate 1,000 MG X1ED STA IV (DC) Sodium Chloride 50 ML Calcium Gluconate 1,000 MG X1ED STA IV (DC) Sodium Chloride 50 ML Sodium Bicarbonate 150 MEQ X1ED STA IV (DC) Cefepime HCl 2 GM X1ED STA IV (DC) Sodium Chloride 20 ML Vancomycin HCl 1,000 MG X1ED STA IV (DC) Sodium Chloride 250 ML Sodium Chloride 1,000 ML X1ED STA IV (DC) Sodium Chloride 1,000 ML X1ED STA IV Sodium Chloride 0 ASDIR PRN IV General appearance: altered mental status, chronically ill appearing, frail, lethargic, awake Head/Eyes: atraumatic, normocephalic, PERRL ENT: dry mucosal membrane, normal nose Neck: normal thyroid, supple/no meningismus, no bruit/NL carotids, no JVD, no lymphadenopathy Cardiovascular: tachycardia, normal heart sounds, normal S1 S2, no rub, no gallop Respiratory/Chest: decreased breath sounds, clear to auscultation, symmetric expansion, no tenderness, dyspnea, tachypnea Abdomen: soft, non-tender, normal bowel sounds, no distention, no guarding, no mass/organomegaly Genitourinary: ballard, no bladder distention, no flank pain Extremities: no calf tenderness, no cyanosis, no edema, no pedal edema Musculoskeletal: decreased ROM Neuro/BACK SHOE WORKER: no sensory deficits Results: Findings/Data: Laboratory Tests 09/26/19 0345: [Embedded Image Not Available] Laboratory Tests 09/25 0452 Blood Gas Puncture [...] pH (5.0 - 7.0) 5.0 Ur Specific [place] (1.005 - 1.030) 1.011 Urine Protein (NEGATIVE) [...] TRACE Urine Yeast (NONE /HPF) 1+ H Microbiology: 09/26 399 BLOOD: Blood Culture - RECD 09/25 344 BLOOD: Blood Culture - RECD 09/25 340 NASAL: MRSA DNA Surveillance Screen - ORD Radiology data: Recent Impressions: RADIOLOGY - XR CHEST 1 V 09/25 404 Report Impression - Status: SIGNED Entered: 09/26/2019412 IMPRESSION: Mildly hyperinflated, but clear lungs. Lucency beneath the left hemidiaphragm likely related to a mildly dilated gas-filled stomach. An upright view of the abdomen would be confirmatory and better exclude pneumoperitoneum. SL: TPAINTER-H Impression By: Bridget Edward M.D. RADIOLOGY - XR CHEST 1 V 09/26 531 Report Impression - Status: SIGNED Entered: 09/26/2019545 IMPRESSION: Hypoinflation associated with interval right IJ central line insertion tip overlying the atriocaval junction without pneumothorax. SL: TPAINTER-H Impression By: Bridget Edward M.D. CAT SCAN - CT C-SPINE W/O CONT 09/25 545 Report Impression - Status: SIGNED Entered: 09/26/2019 06 IMPRESSION: Mild cervical spondylosis and facet arthrosis without acute fracture or dislocation. Mild chronic bilateral mastoiditis. SL: TPAINTER-H Impression By: Bridget Edward M.D. CAT SCAN - CT HEAD/BRAIN W/O CONT 09/25 545 Report Impression - Status: SIGNED Entered: 09/26/2019 0612 IMPRESSION: Mild to moderate diffuse atrophy is present associated with mild nonspecific periventricular low attenuation most 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 No acute intracranial abnormality. Small old appearing lacunar infarctions in both basal ganglia and left thalamus. Mild chronic sinusitis. Minimal chronic bilateral mastoiditis. SL: TPAINTER-H Impression By: Bridget Edward M.D. CAT SCAN - CT CHEST W/O CONTRAST 09/25 545 Report Impression - Status: SIGNED Entered: 09/26/201932 IMPRESSION: Nonspecific nonobstructive bowel gas pattern associated with mild diffuse colonic wall thickening either related to underdistention or nonspecific colitis. Mild submucosal fat seen in the colon suggest chronic colonic inflammatory change. Mild sigmoid diverticulosis. Moderately [...] injection. Postoperative change of cholecystectomy. SL: TPAINTER-H Impression By: Bridget Edward M.D. CAT SCAN - CT ABD PELVIS W/O CONT 09/25 0514 Report Impression - Status: SIGNED Entered: 09/26/2019 0632 IMPRESSION: Nonspecific nonobstructive bowel gas pattern associated with mild diffuse colonic wall thickening either related to underdistention or nonspecific colitis. Mild submucosal fat seen in the colon suggest chronic colonic inflammatory change. Mild sigmoid diverticulosis. Moderately [...] injection. Postoperative change of cholecystectomy. SL: TPAINTER-H Impression By: Bridget Edward M.D. Diagnosis, Assessment Plan Diagnosis, Assessment Plan Problem List/A P: 1. Acute renal failure 2. Hyperkalemia 3. Physical deconditioning 4. Hypomagnesemia 5. Sepsis 6. Acute hypoactive delirium due to another medical condition 7. Lactic acidosis 8. Arterial hypotension Free Text A P: Problem List: Severe sepsis and septic shock Urine tract infection Severe lactic acidosis Severe metabolic acidosis Acute renal failure Leukocytosis Dehydration Diarrhea Hypothermia Assessment and Plan: 74 years old female [...] with a creatinine of 3.9. Has received cefepime , vancomycin and 1 L of crystalloid with a right internal jugular central venous catheter in place. Upon my assessment her blood [...] is being admitted to medical ICU room #317 She is DNR/DNI Patient has profound gram-negative sepsis with severe metabolic and lactic acidosis She is awake, interactive minimally and follows some command Has lactic acid of 14.8 Has received 1 L of crystalloid so far Will be ordered 30 mL/kg body weight fluid resuscitation and repeat lactate within 3 hours Urine and blood cultures have been sent Patient received vancomycin and cefepime in the ER Broad-spectrum antibiotic coverage with vancomycin and Zosyn We will check C. difficile toxin and stool given diarrhea correction White count is elevated 22,000 Chest x-ray did not reveal any pneumonia/consolidation/atelectasis UA is positive for sediment consistent with UA Has profound hypercapnia with a CO2 of 9.5 mmol manifesting adequate respiratory compensation for profound lactic and metabolic acidosis pH is 6.8 Recheck ABG Patient is received total of 5 ampoules of sodium bicarbonate to a total of 250 mEq General surgery consult is being quested for question pneumoperitoneum on the chest x-ray CT of the abdomen pelvis report is awaited Concern for bowel ischemia Has significant hypothermia with a temperature of 33.1 C Patient is on bear hugger DVT and GI prophylaxis Israel Vaughan MD [facility] 09/26/2019 7.25 AM Consultants: critical care/screening technician, hospitalist, nephrology Plan discussed with: nurse Critical care time: Minutes: 65 Code Status/Resusc. Discussion Code status: do not resuscitate at 0726 Addendum 1: 09/26/19904 by Mick Lin MD Labs reviewed Has worsening lactic acid Septic shock She is currently on Levophed drip, hypotensive Hypothermia I talked to the family, talk with the POA. I explained her multiple medical problems, and her poor prognosis. Patient wants her to be DNR/DNI. All questions were answered at 0906 RPT #:[id number] END OF REPORT [facility] 2019-09-26 07:00:00 [facility] ([facility]) Critical Care Consult Note REPORT#:[id number] REPORT STATUS: Signed DATE:09/26/19 TIME: 0700 PATIENT: MAC AGUSTIN UNIT #: [id number] ROOM/BED: [facility]-1 : 47 AGE: 74 SEX: F ATTEND: Joel Myers MD ADM AUTHOR: Israel Vaughan MD * ALL edits or amendments must be made on the electronic/computer document * See Addendum History of Present Illness HPI Requesting clinician: ER Physician Reason for consult: Severe sepsis and septic shock Urine tract infection Severe lactic acidosis Severe metabolic acidosis Acute renal failure Leukocytosis Dehydration Diarrhea Hypothermia Chief complaint: Not feeling well Low urine output Altered mental status Increased thirst Decreased p.o. intake HPI: 74 years old female [...] with a creatinine of 3.9. Has received cefepime , vancomycin and 1 L of crystalloid with a right internal jugular central venous catheter in place. Upon my assessment her blood [...] medical ICU room #317. History - Adult longitudinal Smoking status for patients 13 years old or older: Unknown,if ever smoked Medications: Current Hospital Medications: Anti-Infective Agents Sig/Rose Mary Start time Last Medication Dose Route Stop Time Status Admin Piperacillin Sod/ 3.375 GM Q8H 09/25 714 UNV Tazobactam Sod IV 10/09 713 (ZOSYN 3.375GM) Sodium Chloride 100 ML (SODIUM CHLORIDE 0.9% 100 ML) Vancomycin HCl 750 MG Q12H 04/16 0715 UNV (VANCOMYCIN HCL) IV 10/25 0714 [...] PRN 09/25 629 AC (ZOFRAN) IV 09/26 528 Hormones And Synthetic Substit Sig/Rose Mary Start time Last Medication Dose Route Stop Time Status Admin Insulin Human Lispro 0 AC HS 09/25 0630 AC (HUMALOG) SUBQ 09/26 528 Glucagon 1 MG ASDIR PRN 09/25 629 AC (GLUCAGON) IM 09/26 528 Pharmaceutical Aids Sig/Rose Mary Start time Last Medication Dose Route Stop Time Status Admin Sterile Water 1.2 ML ASDIR 09/25 629 AC (WATER FOR INJECTION) IM 09/27 523 Allergies: Coded Allergies: penicillamine (UNKNOWN 09/26/19) Review of Systems Unable to obtain due to: Patient is profoundly acidotic both metabolic and lactic, opens eyes, answers yes and no questions but did not follow commands very well. Objective Physical Exam: VS/I O: Last Documented: Result Date Time O2 Delivery Nasal cannula 09/26 451 O2 Flow Rate 3.864361 09/25 045 Temp 33.1 09/25 0439 Pulse Ox 95 09/25 0339 B/P 139/94 09/25 0339 B/P Mean 109 09/25 0339 Pulse 113 09/25 0339 Resp 26 09/25 0339 24 hour I O ending at 0700: 09/25 0700 09/24 1900 Intake Total Output Total Balance Patient 61.4 kg Weight Weight Bed scale Measurement Method Medications: Active Meds + DC'd Last 24 Hrs Insulin Human Lispro 0 AC HS SUBQ Piperacillin Sod/Tazobactam Sod 3.375 GM Q8H IV (UNV) Sodium Chloride 100 ML Vancomycin HCl 750 MG Q12H IV (UNV) Sodium Chloride 250 ML Norepinephrine Bitartrate 250 ML ASDIR PRN IV [...] X1ED STA IV (DC) Sodium Chloride 100 ML Lorazepam 2 MG ONCE ONE IV (DC) Sodium Chloride 0 ASDIR PRN IV Lorazepam 0 .STK-MED ONE IV (DC) Magnesium Sulfate 100 ML X1ED STA IV Calcium Gluconate 1,000 MG X1ED STA IV (DC) Sodium Chloride 50 ML Calcium Gluconate 1,000 MG X1ED STA IV (DC) Sodium Chloride 50 ML Sodium Bicarbonate 150 MEQ X1ED STA IV (DC) Cefepime HCl 2 GM X1ED STA IV (DC) Sodium Chloride 20 ML Vancomycin HCl 1,000 MG X1ED STA IV (DC) Sodium Chloride 250 ML Sodium Chloride 1,000 ML X1ED STA IV (DC) Sodium Chloride 1,000 ML X1ED STA IV Sodium Chloride 0 ASDIR PRN IV General appearance: altered mental status, chronically ill appearing, frail, lethargic, awake Head/Eyes: atraumatic, normocephalic, PERRL ENT: dry mucosal membrane, normal nose Neck: normal thyroid, supple/no meningismus, no bruit/NL carotids, no JVD, no lymphadenopathy Cardiovascular: tachycardia, normal heart sounds, normal S1 S2, no rub, no gallop Respiratory/Chest: decreased breath sounds, clear to auscultation, symmetric expansion, no tenderness, dyspnea, tachypnea Abdomen: soft, non-tender, normal bowel sounds, no distention, no guarding, no mass/organomegaly Genitourinary: ballard, no bladder distention, no flank pain Extremities: no calf tenderness, no cyanosis, no edema, no pedal edema Musculoskeletal: decreased ROM Neuro/BACK SHOE WORKER: no sensory deficits Results: Findings/Data: Laboratory Tests 09/26/19 0345: [Embedded Image Not Available] Laboratory Tests 09/26 451 Blood Gas Puncture [...] pH (5.0 - 7.0) 5.0 Ur Specific [place] (1.005 - 1.030) 1.011 Urine Protein (NEGATIVE) [...] TRACE Urine Yeast (NONE /HPF) 1+ H Microbiology: 09/26 399 BLOOD: Blood Culture - RECD 09/25 0345 BLOOD: Blood Culture - RECD 09/25 0341 NASAL: MRSA DNA Surveillance Screen - ORD Radiology data: Recent Impressions: RADIOLOGY - XR CHEST 1 V 09/25 0405 Report Impression - Status: SIGNED Entered: 09/26/2019 0413 IMPRESSION: Mildly hyperinflated, but clear lungs. Lucency beneath the left hemidiaphragm likely related to a mildly dilated gas-filled stomach. An upright view of the abdomen would be confirmatory and better exclude pneumoperitoneum. SL: TPAINTER-H Impression By: Bridget Edward M.D. RADIOLOGY - XR CHEST 1 V 09/25 0532 Report Impression - Status: SIGNED Entered: 09/26/2019 0546 IMPRESSION: Hypoinflation associated with interval right IJ central line insertion tip overlying the atriocaval junction without pneumothorax. SL: TPAINTER-H Impression By: Bridget Edward M.D. CAT SCAN - CT C-SPINE W/O CONT 09/25 0446 Report Impression - Status: SIGNED Entered: 09/26/2019 0607 IMPRESSION: Mild cervical spondylosis and facet arthrosis without acute fracture or dislocation. Mild chronic bilateral mastoiditis. SL: TPAINTER-H Impression By: Bridget Edward M.D. CAT SCAN - CT HEAD/BRAIN W/O CONT 09/25 0446 Report Impression - Status: SIGNED Entered: 09/26/2019 0612 IMPRESSION: Mild to moderate diffuse atrophy is present associated with mild nonspecific periventricular low attenuation most 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 No acute intracranial abnormality. Small old appearing lacunar infarctions in both basal ganglia and left thalamus. Mild chronic sinusitis. Minimal chronic bilateral mastoiditis. SL: TPAINTER-H Impression By: Bridget Edward M.D. CAT SCAN - CT CHEST W/O CONTRAST 09/25 0446 Report Impression - Status: SIGNED Entered: 09/26/2019 0632 IMPRESSION: Nonspecific nonobstructive bowel gas pattern associated with mild diffuse colonic wall thickening either related to underdistention or nonspecific colitis. Mild submucosal fat seen in the colon suggest chronic colonic inflammatory change. Mild sigmoid diverticulosis. Moderately [...] injection. Postoperative change of cholecystectomy. SL: TPAINTER-H Impression By: Bridget Edward M.D. CAT SCAN - CT ABD PELVIS W/O CONT 09/25 0546 Report Impression - Status: SIGNED Entered: 09/26/2019 0632 IMPRESSION: Nonspecific nonobstructive bowel gas pattern associated with mild diffuse colonic wall thickening either related to underdistention or nonspecific colitis. Mild submucosal fat seen in the colon suggest chronic colonic inflammatory change. Mild sigmoid diverticulosis. Moderately [...] injection. Postoperative change of cholecystectomy. SL: TPAINTER-H Impression By: Bridget Edward M.D. Diagnosis, Assessment Plan Diagnosis, Assessment Plan Problem List/A P: 1. Acute renal failure 2. Hyperkalemia 3. Physical deconditioning 4. Hypomagnesemia 5. Sepsis 6. Acute hypoactive delirium due to another medical condition 7. Lactic acidosis 8. Arterial hypotension Free Text A P: Problem List: Severe sepsis and septic shock Urine tract infection Severe lactic acidosis Severe metabolic acidosis Acute renal failure Leukocytosis Dehydration Diarrhea Hypothermia Assessment and Plan: 74 years old female [...] with a creatinine of 3.9. Has received cefepime , vancomycin and 1 L of crystalloid with a right internal jugular central venous catheter in place. Upon my assessment her blood [...] is being admitted to medical ICU room #317 She is DNR/DNI Patient has profound gram-negative sepsis with severe metabolic and lactic acidosis She is awake, interactive minimally and follows some command Has lactic acid of 14.8 Has received 1 L of crystalloid so far Will be ordered 30 mL/kg body weight fluid resuscitation and repeat lactate within 3 hours Urine and blood cultures have been sent Patient received vancomycin and cefepime in the ER Broad-spectrum antibiotic coverage with vancomycin and Zosyn We will check C. difficile toxin and stool given diarrhea correction White count is elevated 22,000 Chest x-ray did not reveal any pneumonia/consolidation/atelectasis UA is positive for sediment consistent with UA Has profound hypercapnia with a CO2 of 9.5 mmol manifesting adequate respiratory compensation for profound lactic and metabolic acidosis pH is 6.8 Recheck ABG Patient is received total of 5 ampoules of sodium bicarbonate to a total of 250 mEq General surgery consult is being quested for question pneumoperitoneum on the chest x-ray CT of the abdomen pelvis report is awaited Concern for bowel ischemia Has significant hypothermia with a temperature of 33.1 C Patient is on bear hugger DVT and GI prophylaxis Israel Vaughan MD [facility] 09/26/2019 7.25 AM Consultants: critical care/screening technician, hospitalist, nephrology Plan discussed with: nurse Critical care time: Minutes: 65 Code Status/Resusc. Discussion Code status: do not resuscitate at 0726 Addendum 1: 09/26/19 0905 by Mick Lin MD Labs reviewed Has worsening lactic acid Septic shock She is currently on Levophed drip, hypotensive Hypothermia I talked to the family, talk with the POA. I explained her multiple medical problems, and her poor prognosis. Patient wants her to be DNR/DNI. All questions were answered at 0906 Addendum 2: 09/26/19 1210 by Mick Lin MD patient was on metformin. Has NATHEN and has elevated lactic acid. D/w neprhology, plan is to do HD. Nephro talked to family about HD. at 1210 [facility] #:[id number] END OF REPORT [facility] 2019-09-26 07:00:00 [facility] ([facility]) Critical Care Consult Note REPORT#:[id number] REPORT STATUS: Signed DATE:09/26/19 TIME: 0700 PATIENT: MAC AGUSTIN UNIT #: [id number] ROOM/BED: [facility]-1 : 47 AGE: 74 SEX: F ATTEND: Joel Myers MD ADM AUTHOR: Israel Vaughan MD * ALL edits or amendments must be made on the electronic/computer document * See Addendum History of Present Illness HPI Requesting clinician: ER Physician Reason for consult: Severe sepsis and septic shock Urine tract infection Severe lactic acidosis Severe metabolic acidosis Acute renal failure Leukocytosis Dehydration Diarrhea Hypothermia Chief complaint: Not feeling well Low urine output Altered mental status Increased thirst Decreased p.o. intake HPI: 74 years old female [...] with a creatinine of 3.9. Has received cefepime , vancomycin and 1 L of crystalloid with a right internal jugular central venous catheter in place. Upon my assessment her blood [...] medical ICU room #317. History - Adult longitudinal Smoking status for patients 13 years old or older: Unknown,if ever smoked Medications: Current Hospital Medications: Anti-Infective Agents Sig/Rose Mary Start time Last Medication [...] AC (WATER FOR INJECTION) IM 09/26 0524 Allergies: Coded Allergies: penicillamine (UNKNOWN 09/26/19) Review of Systems Unable to obtain due to: Patient is profoundly acidotic both metabolic and lactic, opens eyes, answers yes and no questions but did not follow commands very well. Objective Physical Exam: VS/I O: Last Documented: Result Date Time O2 Delivery Nasal cannula 09/26 451 O2 Flow Rate [id number] 09/25 045 Temp 33.1 09/25 0439 Pulse Ox 95 09/25 0339 B/P 139/94 09/25 0339 B/P Mean 109 09/25 033 Pulse 113 09/25 0339 Resp 26 09/25 033 24 hour I O ending at 0700: 09/25 0700 09/24 1900 Intake Total Output Total Balance Patient 61.4 kg Weight Weight Bed scale Measurement Method Medications: Active Meds + DC'd Last 24 Hrs Insulin Human Lispro 0 AC HS SUBQ Piperacillin Sod/Tazobactam Sod 3.375 GM Q8H IV (UNV) Sodium Chloride 100 ML Vancomycin HCl 750 MG Q12H IV (UNV) Sodium Chloride 250 ML Norepinephrine Bitartrate 250 ML ASDIR PRN IV [...] X1ED STA IV (DC) Sodium Chloride 100 ML Lorazepam 2 MG ONCE ONE IV (DC) Sodium Chloride 0 ASDIR PRN IV Lorazepam 0 .STK-MED ONE IV (DC) Magnesium Sulfate 100 ML X1ED STA IV Calcium Gluconate 1,000 MG X1ED STA IV (DC) Sodium Chloride 50 ML Calcium Gluconate 1,000 MG X1ED STA IV (DC) Sodium Chloride 50 ML Sodium Bicarbonate 150 MEQ X1ED STA IV (DC) Cefepime HCl 2 GM X1ED STA IV (DC) Sodium Chloride 20 ML Vancomycin HCl 1,000 MG X1ED STA IV (DC) Sodium Chloride 250 ML Sodium Chloride 1,000 ML X1ED STA IV (DC) Sodium Chloride 1,000 ML X1ED STA IV Sodium Chloride 0 ASDIR PRN IV General appearance: altered mental status, chronically ill appearing, frail, lethargic, awake Head/Eyes: atraumatic, normocephalic, PERRL ENT: dry mucosal membrane, normal nose Neck: normal thyroid, supple/no meningismus, no bruit/NL carotids, no JVD, no lymphadenopathy Cardiovascular: tachycardia, normal heart sounds, normal S1 S2, no rub, no gallop Respiratory/Chest: decreased breath sounds, clear to auscultation, symmetric expansion, no tenderness, dyspnea, tachypnea Abdomen: soft, non-tender, normal bowel sounds, no distention, no guarding, no mass/organomegaly Genitourinary: ballard, no bladder distention, no flank pain Extremities: no calf tenderness, no cyanosis, no edema, no pedal edema Musculoskeletal: decreased ROM Neuro/BACK SHOE WORKER: no sensory deficits Results: Findings/Data: Laboratory Tests 09/26/19 0345: [Embedded Image Not Available] Laboratory Tests 09/25 0452 Blood Gas Puncture [...] pH (5.0 - 7.0) 5.0 Ur Specific [place] (1.005 - 1.030) 1.011 Urine Protein (NEGATIVE) [...] TRACE Urine Yeast (NONE /HPF) 1+ H Microbiology: 09/26 399 BLOOD: Blood Culture - RECD 09/25 034 BLOOD: Blood Culture - RECD 09/25 034 NASAL: MRSA DNA Surveillance Screen - ORD Radiology data: Recent Impressions: RADIOLOGY - XR CHEST 1 V 09/25 0405 Report Impression - Status: SIGNED Entered: 09/26/2019 0413 IMPRESSION: Mildly hyperinflated, but clear lungs. Lucency beneath the left hemidiaphragm likely related to a mildly dilated gas-filled stomach. An upright view of the abdomen would be confirmatory and better exclude pneumoperitoneum. SL: TPAINTER-H Impression By: Bridget Edward M.D. RADIOLOGY - XR CHEST 1 V 09/25 0532 Report Impression - Status: SIGNED Entered: 09/26/2019 0546 IMPRESSION: Hypoinflation associated with interval right IJ central line insertion tip overlying the atriocaval junction without pneumothorax. SL: TPAINTER-H Impression By: Bridget Edward M.D. CAT SCAN - CT C-SPINE W/O CONT 09/25 0546 Report Impression - Status: SIGNED Entered: 09/26/2019 0607 IMPRESSION: Mild cervical spondylosis and facet arthrosis without acute fracture or dislocation. Mild chronic bilateral mastoiditis. SL: TPAINTER-H Impression By: Bridget Edward M.D. CAT SCAN - CT HEAD/BRAIN W/O CONT 09/25 545 Report Impression - Status: SIGNED Entered: 09/26/2019611 IMPRESSION: Mild to moderate diffuse atrophy is present associated with mild nonspecific periventricular low attenuation most 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 No acute intracranial abnormality. Small old appearing lacunar infarctions in both basal ganglia and left thalamus. Mild chronic sinusitis. Minimal chronic bilateral mastoiditis. SL: TPAINTER-H Impression By: Bridget Edward M.D. CAT SCAN - CT CHEST W/O CONTRAST 09/25 545 Report Impression - Status: SIGNED Entered: 09/26/2019631 IMPRESSION: Nonspecific nonobstructive bowel gas pattern associated with mild diffuse colonic wall thickening either related to underdistention or nonspecific colitis. Mild submucosal fat seen in the colon suggest chronic colonic inflammatory change. Mild sigmoid diverticulosis. Moderately [...] injection. Postoperative change of cholecystectomy. SL: TPAINTER-H Impression By: Bridget Edward M.D. CAT SCAN - CT ABD PELVIS W/O CONT 09/25 545 Report Impression - Status: SIGNED Entered: 09/26/2019631 IMPRESSION: Nonspecific nonobstructive bowel gas pattern associated with mild diffuse colonic wall thickening either related to underdistention or nonspecific colitis. Mild submucosal fat seen in the colon suggest chronic colonic inflammatory change. Mild sigmoid diverticulosis. Moderately [...] injection. Postoperative change of cholecystectomy. SL: TPAINTER-H Impression By: Bridget - Amadeo Edward M.D. Diagnosis, Assessment Plan Diagnosis, Assessment Plan Problem List/A P: 1. Acute renal failure 2. Hyperkalemia 3. Physical deconditioning 4. Hypomagnesemia 5. Sepsis 6. Acute hypoactive delirium due to another medical condition 7. Lactic acidosis 8. Arterial hypotension Free Text A P: Problem List: Severe sepsis and septic shock Urine tract infection Severe lactic acidosis Severe metabolic acidosis Acute renal failure Leukocytosis Dehydration Diarrhea Hypothermia Assessment and Plan: 74 years old female [...] with a creatinine of 3.9. Has received cefepime , vancomycin and 1 L of crystalloid with a right internal jugular central venous catheter in place. Upon my assessment her blood [...] is being admitted to medical ICU room #317 She is DNR/DNI Patient has profound gram-negative sepsis with severe metabolic and lactic acidosis She is awake, interactive minimally and follows some command Has lactic acid of 14.8 Has received 1 L of crystalloid so far Will be ordered 30 mL/kg body weight fluid resuscitation and repeat lactate within 3 hours Urine and blood cultures have been sent Patient received vancomycin and cefepime in the ER Broad-spectrum antibiotic coverage with vancomycin and Zosyn We will check C. difficile toxin and stool given diarrhea correction White count is elevated 22,000 Chest x-ray did not reveal any pneumonia/consolidation/atelectasis UA is positive for sediment consistent with UA Has profound hypercapnia with a CO2 of 9.5 mmol manifesting adequate respiratory compensation for profound lactic and metabolic acidosis pH is 6.8 Recheck ABG Patient is received total of 5 ampoules of sodium bicarbonate to a total of 250 mEq General surgery consult is being quested for question pneumoperitoneum on the chest x-ray CT of the abdomen pelvis report is awaited Concern for bowel ischemia Has significant hypothermia with a temperature of 33.1 C Patient is on bear hugger DVT and GI prophylaxis Israel Vaughan MD [facility] 09/26/2019 7.25 AM Consultants: critical care/screening technician, hospitalist, nephrology Plan discussed with: nurse Critical care time: Minutes: 65 Code Status/Resusc. Discussion Code status: do not resuscitate at 0726 Addendum 1: 09/26/19 0905 by Mick Lin MD Labs reviewed Has worsening lactic acid Septic shock She is currently on Levophed drip, hypotensive Hypothermia I talked to the family, talk with the POA. I explained her multiple medical problems, and her poor prognosis. Patient wants her to be DNR/DNI. All questions were answered at 0906 Addendum 2: 09/26/19 1210 by Mick Lin MD patient was on metformin. Has NATHEN and has elevated lactic acid. D/w neprhology, plan is to do HD. Nephro talked to family about HD. at 1210 RPT #:[id number] END OF REPORT [facility] 2019-09-26 03:42:00 [facility] EMERGENCY PROVIDER REPORT REPORT#:[id number] REPORT STATUS: Signed DATE:09/26/19 TIME: 341 PATIENT: MAC AGUSTIN UNIT #: [id number] ROOM/BED: [place] [id number] AGE: 74 SEX: F PCP PHYS: No Primary or Family Physician SERVICE AUTHOR: Facundo Phan MD * ALL edits or amendments must be made on the electronic/computer document * HPI-General Illness Free Text HPI Notes Free Text HPI Notes 72-year-old female arrives with EMS for primary concern of dehydration. Patient arrived from [facility]. Patient has history of dementia review of system is not available. EMS reports that patient has been feeling unwell for some time, correction has collected blood work and discovered that patient was in acute renal failure with elevated potassium of 5.0 Patient has past medical history of diabetes type 2 Alzheimer's type dementia Chronic pain Anxiety Migraine headache Frequent falls Incontinence of bowel and bladder Rheumatoid arthritis Frequent UTIs Essential hypertension Dementia with behavioral disturbances halfway records states that patient has a DNR status. General Confirmed Patient Yes Patient Type New patient Initial Greet Date/Time 09/26/19 5048 PCP Reyna Calvert MD COVID-19 Risk CDC COVID Risk Reports Age 65 or older, Reports Signif co-morbidity, Denies Exp to person + for COVID, Denies Exp to PUI, Denies Travel from affected area, Denies Lower resp symptoms, Denies Fever Presentation Chief Complaint __ (Dehydration , renal failure) Hx Obtained From EMS, halfway records Review of Systems ROS Statements All systems rev neg except as marked. Unable to Obtain ROS Dementia, Medical condition Past Medical History - Adult Stated Complaint DEHYDRATION, Allergies Coded Allergies: penicillamine (UNKNOWN 09/26/19) Physical Exam Vital Signs Vital Signs First Documented: Result Date Time Pulse Ox 95 09/25 0339 B/P 139/94 09/25 0339 B/P Mean 109 09/25 0339 O2 Delivery Room air 09/25 338 Pulse 113 09/25 0339 Resp 26 09/25 338 Temp 33.1 09/25 0439 O2 Flow Rate 3.036451 09/25 0452 Last Documented: Result Date Time O2 Delivery Nasal cannula 09/26 451 O2 Flow Rate 3.881202 09/25 0452 Temp 33.1 09/25 0439 Pulse Ox 95 09/25 0339 B/P 139/94 09/25 0339 B/P Mean 109 09/25 0339 Pulse 113 09/25 0339 Resp 26 09/25 0339 Review of Vital Signs Reviewed, Vital signs abnormal, tachycardia Physical Exam Rectum Rectum/Perineum No gross blood, No discharge, No fecal impaction, No fissures , No hemorrhoids, No lesions, No mass, Sphincter tone NL, rash of labia and perineum Free Text PE Notes Free Text PE Notes GENERAL - Awake, alert -Frail elderly female -Signs of moderate dementia -Cooperative with exam -Uncomfortable appearing -Ill-appearing HEAD - Atraumatic, normocephalic NECK - Supple, FROM EYES - EOMI, conjunctiva normal ENT: - Airway patent -Dry mucous membranes -Poor dentition RESP - Breath sounds normal, -Tachypnea - no respiratory distress, - no wheezing, no rales, no rhonchi CARDS -Tachycardia - regular rhythm, - normal heart sounds ABDOMEN - Soft, non-tender, no guarding, no rebound, no distention LOWER EXTREMITIES - Non-tender, no swelling -Diffuse muscular atrophy from deconditioning SKIN - Warm, dry, intact -Poor turgor indicative of dehydration NEUROLOGIC - Oriented to self and others, - normal speech, - no localized neurologic deficits -Gait could not be tested -Cranial nerve exam II through XII is normal -Gait was not tested -Generalized weakness on exam PSYCHIATRIC - Normal mood, normal affect, no suicidal ideation, no homicidal ideation -Moderate dementia Interpretation Diagnostics Lab Results Interpretation Considerations Independ review imaging, Reviewed prior records Results Laboratory Tests 09/26/19 0345: [Embedded Image Not Available] Laboratory Tests: 09/25 09/25 09/25 09/25 0452 0415 0355 0348 Blood Gas Puncture Site R Rad ABG [...] (F) 91.7 O2 Delivery Device Room Air Chemistry POC Glucose (70 - 110 MG/DL) 147 H Lactic Acid (0.4 - 1.9 mmol/L) 14.8 *H Urines Urine Color (YEL/STRAW) YELLOW Urine Appearance (CLEAR) SL CLOUDY Urine pH (5.0 - 7.0) 5.0 Ur Specific [place] (1.005 - 1.030) 1.011 Urine Protein (NEGATIVE) [...] H Ur Squamous Epith Cells (NONE SEEN 0-5 /HPF) Urine Bacteria (NONE SEEN /HPF) 1+ H Urine Mucus (NONE SEEN /LPF) TRACE Urine Yeast (NONE /HPF) 1+ H 09/25 09/25 8868 0866 Chemistry Sodium (134 - 147 mEq/L) 144 [...] DNA Surveillance Screen - ORD NASAL Recent Impressions: RADIOLOGY - XR CHEST 1 V 09/25 0405 Report Impression - Status: SIGNED Entered: 09/26/2019 0413 IMPRESSION: Mildly hyperinflated, but clear lungs. Lucency beneath the left hemidiaphragm likely related to a mildly dilated gas-filled stomach. An upright view of the abdomen would be confirmatory and better exclude pneumoperitoneum. SL: TPAINTER-H Impression By: Bridget Edward M.D. RADIOLOGY - XR CHEST 1 V 09/25 0532 Report Impression - Status: SIGNED Entered: 09/26/2019 0546 IMPRESSION: Hypoinflation associated with interval right IJ central line insertion tip overlying the atriocaval junction without pneumothorax. SL: TPAINTER-H Impression By: Bridget Edward M.D. CAT SCAN - CT C-SPINE W/O CONT 09/25 0546 Report Impression - Status: SIGNED Entered: 09/26/2019 0607 IMPRESSION: Mild cervical spondylosis and facet arthrosis without acute fracture or dislocation. Mild chronic bilateral mastoiditis. SL: TPAINTER-H Impression By: Bridget Edward M.D. CAT SCAN - CT HEAD/BRAIN W/O CONT 09/25 0546 Report Impression - Status: SIGNED Entered: 09/26/2019 0612 IMPRESSION: Mild to moderate diffuse atrophy is present associated with mild nonspecific periventricular low attenuation most 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 No acute intracranial abnormality. Small old appearing lacunar infarctions in both basal ganglia and left thalamus. Mild chronic sinusitis. Minimal chronic bilateral mastoiditis. SL: TPAINTER-H Impression By: [email or web address] - Amadeo [place], M.D. CAT SCAN - CT CHEST W/O CONTRAST 09/25 545 Report Impression - Status: SIGNED Entered: 09/26/2019631 IMPRESSION: Nonspecific nonobstructive bowel gas pattern associated with mild diffuse colonic wall thickening either related to underdistention or nonspecific colitis. Mild submucosal fat seen in the colon suggest chronic colonic inflammatory change. Mild sigmoid diverticulosis. Moderately [...] injection. Postoperative change of cholecystectomy. SL: TPAINTER-H Impression By: [email or web address] - Amadeo Edward M.D. CAT SCAN - CT ABD PELVIS W/O CONT 09/25 545 Report Impression - Status: SIGNED Entered: 09/26/2019631 IMPRESSION: Nonspecific nonobstructive bowel gas pattern associated with mild diffuse colonic wall thickening either related to underdistention or nonspecific colitis. Mild submucosal fat seen in the colon suggest chronic colonic inflammatory change. Mild sigmoid diverticulosis. Moderately [...] injection. Postoperative change of cholecystectomy. SL: TPAINTER-H Impression By: Bridget - Amadeo Edward M.D. Lab Imaging Statement Laboratory radiographic studies reviewed and considered in the medical decision-making. ECG #1 Interpretation Text/Dict Note Sinus tachycardia with PVCs Rate 122 bpm Left axis deviation No ST elevation or depression ECG Documented in MUSE Yes Date 09/26/19 Time 0351 Interpreted by ED physician NL ECG Interpretation No acute ischemic changes, No STEMI, Normal intervals, poor baseline muscle tremor Rate 122 Procedures Central Line Placement #1 Text/Dict Note Sepsis severe acidosis Impending vascular collapse Time 0600 Procedure Performed by ED physician Consent/Setup/Site Prep Verified correct patient, No consent - emergent, Time- out performed, Needle aspirate performed, Oxygen administered, Pulse oximeter applied, weekend anchor applied, Hand hygiene observed, Standard surgical scrub , Max barrier precaution, Sterile drapes applied, Position Trendelenburg Skin Preparation Agent Hibiclens - Chlorhexidine Local Anesthesia Lidocaine 1%, 5 mL, 27g needle Procedural Sedation/Analgesia NONE Side/Location/Ultrasound Internal jugular R, Ultrasound assisted Catheter/Lumen/Technique Catheter size (7 FR), Triple lumen, Seldinger technique , Guide wire removed, Good blood return, Secured with suture Number of Attempts 1 Post-Procedure/Complications Antibiotic oint applied, Dressing placed, CXR neg for pneumothorax, Cath tip good position, Condition improved, Tolerated procedure well, Patient stable Full Risk Stratification Risk Stratification NIH Stroke Score NIH Stroke Score Response Value Level of consciousness: Not alert,arousable 1 Ask Month Age: Answers one correctly 1 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 Re-Evaluation MDM Re-Evaluation/Progress #1 Text/Dict Note Patient developed hypotension Levophed was started Time of Re-Eval 0643 Re-Eval Status Unchanged Sepsis Reassessment Date of exam: 09/26/19 Time of exam: 0648 Vital signs: SEE VITAL SIGN SECTION Cardiac assessment: regular rate rhythm, no ectopy, TACHYCARDIA Respiratory assessment: aerating well, clear to auscultation Capillary refill assess: less than 2 sec Peripheral pulse assess: Radial pulse: 2+ Skin color: pink ED Course Medication(s) Ordered Medication(s) Ordered: Anti-Infective Agents Sig/Rose Mary Start time Last Medication [...] PRN PRN 09/25 0630 AC PO 09/26 05 Lorazepam 1 MG Q4H PRN PRN 09/25 0630 AC IV 09/26 05 Morphine Sulfate 2 MG [...] AC HS 09/25 0730 AC SUBQ 09/26 05 Glucagon 1 MG ASDIR PRN 09/25 06 AC IM 09/26 0529 Pharmaceutical Aids Sig/Rose Mary Start time Last Medication Dose Route Stop Time Status Admin Sterile Water 1.2 ML ASDIR 09/25 629 AC IM 09/26 0524 Consultation Consultation 1 Referral/Consult Name Israel Vaughan MD Sba Underwriter Called Registered Appraiser Requested Call Time 0646 Requested Call Date 09/26/19 Call Returned Call returned Call Returned Time 0646 Call Returned Date 09/26/19 Sba Underwriter Will see patient, Agrees with eval, Agrees with plan, EVALUATED PATIENT IN ER Consultation 2 Referral/Consult Name ; Yo,In Ramandeep Sba Underwriter Called General Surgery Requested Call Time 0647 Requested Call Date 09/26/19 Call Returned Call returned Call Returned Time 0647 Call Returned Date 09/26/19 Sba Underwriter Will see patient, Agrees with eval, Agrees with plan Consultation 3 Referral/Consult Name ; Sofia Vaughan MD Sba Underwriter Called Nephrology Requested Call Time 0648 Requested Call Date 09/26/19 Call Returned Call returned Call Returned Time 0648 Call Returned Date 09/26/19 Sba Underwriter Will see patient, Agrees with eval, Agrees with plan Patient Discharge Departure Vital Signs/Condition Vital Signs First Documented: Result Date Time Pulse Ox 95 09/25 0339 B/P 139/94 09/25 0339 B/P Mean 109 09/25 0339 O2 Delivery Room air 09/25 033 Pulse 113 09/25 0339 Resp 26 09/25 0339 Temp 33.1 09/25 0439 O2 Flow Rate 3.821032 09/25 0452 Last Documented: Result Date Time O2 Delivery Nasal cannula 09/26 451 O2 Flow Rate 3.472072 09/25 0452 Temp 33.1 09/25 0439 Pulse Ox 95 09/25 0339 B/P 139/94 09/25 0339 B/P Mean 109 09/25 0339 Pulse 113 09/25 0339 Resp 26 09/25 0339 All vital signs available at the time of this entry have been reviewed. Condition Improved, Stable Clinical Impression Clinical Impression Primary Impression: Sepsis Secondary Impressions: Acute hypoactive delirium due to another medical condition, Acute renal failure, Arterial hypotension, Hypomagnesemia, Lactic acidosis, Physical deconditioning Time of Impression 0642 Sepsis ED Course Included Treatment Septic shock (R65.21) Include in Clinical Impression Septic shock (R65.21) Disposition Decision Admit Admit Physician Name Ray Kat MD Admit Physician Hospitalist Request Time 638 Request Date 09/26/19 )( Admission Accepts Yes )( Accepted Time 06 )( Accepted Date 09/26/19 Call Information will see patient, agrees with eval, agrees with plan, ADMISSION PLACED UNDER DR CY LIZAMA-19 Discharge Plan CDC Criteria Met for Testing No Test Performed No CDC Recom for Isol Retest https://www.cdc.gov/coronavirus/2019-ncov/infecti on-control/control- recommendations.html Discharge/Care Plan Counseled Regarding Diagnosis, Lab results, Imaging studies, Need for admission, DISCUSSED WITH FAMILY OF PATIENT Admit Note I have spoken with the patient and/or caregivers. I have explained the patient's condition, diagnoses and treatment plan based on the information available to me at this time. I have answered the patient's and/ or caregiver's questions and addressed any concerns. The [...] DISCUSSED WITH FAMILY OF THE PATIENT Critical Care Time Spent (minutes): 46 Services Performed Patient management by me, Time spent at bedside, Reviewing test results, Reviewing imaging, Discussing patient care, Documentation in record, Time with fam/surrogate Separately billable procedures excluded from time. Patient was critically ill due to: Sepsis Hypertension Hypothermia Multiple severe electrolyte imbalances My treatment and management were: Hemodynamic managed CC Note 1 Total critical care time 46 minutes. Total critical [...] the family or caregiver. Free Text Depart Notes Free Text Depart Notes Summary 74-year-old female brought in from correction for multiple problems I spoke with the family and confirmed that patient is DNR. Work-up revealed -Severe acidosis -Leukocytosis -Signs of sepsis -UTI -Lactic acid of 14.8 -Acute renal failure -Hypercalcemia -Hypomagnesemia -High anion gap acidosis -Hypoalbuminemia -Colitis on CT scan -Incidentally patient has findings of prior cholecystectomy -Moderately dilated stomach representing potential gastritis -Diffuse anasarca -Hypothermia -Acute hypoactive delirium Plan Electrolytes were replaced IV I placed a central line anticipating that patient will develop hypotension and shock Patient did develop hypotension and had to be started on Levophed Patient was given a total of 2 L of IV fluid bolus in the ER Maintenance fluids started 125 an hour Patient was given Vancomycin IV , Cefepime IV and then given Zosyn IV based on recommendation of Registered Appraiser Patient will be managed in ICU General surgery was consulted for possible bowel ischemia, secondary to lactic acid of 14.8 Suspicion for CO VID 19 is low at this time Patient does not warrant CO VID 19 testing I have also placed consult for Nephrology. While in ER patient developed agitation and had to be given 2 mg IV Ativan. Ballard catheter was placed for monitoring urine output. I personally called patient's daughter and explained that patient is very ill and prognosis is poor at this time. I advised family to come to the hospital and have a consultation with attending MD to determine how aggressive they want us to be in the management of the patient. at 0706 RPT #:[id number] END OF REPORT [facility]
--- NOTE | 2024-02-20 12:25 | RAD REPORT ---
EXAM DESCRIPTION: CT - Head Brain Wo Cont - 02/20/2024 12:16 pm CLINICAL HISTORY: Alteration of awareness/confusion COMPARISON: 2021 TECHNIQUE: Computed axial tomography of the head was obtained. IV contrast was not requested. All CT scans are performed using dose optimization technique as appropriate and may include automated exposure control or mA/KV adjustment according to patient size. FINDINGS: An intracranial bleed is not seen The ventricles are normal in caliber No extra-axial fluid collection is noted. 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 Old lacunar infarct left basal ganglia Prominent vertebral artery calcifications Fluid within the sinuses/ mastoids is not seen. IMPRESSION: No acute intracranial abnormality is seen If patient's symptoms persist MRI of the brain would be recommended
[2024-02-20 13:14] LABS: Absolute Basophils 0.1 K/uL (0-0.5); Absolute Eosinophils 0.1 K/uL (0-0.5); Absolute Lymphocytes (CBC) 2.7 K/uL (0.7-4.9); Absolute Monocytes 1.4 K/uL (0.1-1.3); Absolute Neutrophil 8.2 K/uL (1.8-8.0); Basophils % 0.9 % (0-1.3); Eosinophils % 0.7 % (0-4.4); Hematocrit 34.9 % (36.0-45.0); Hemoglobin 11.1 g/dL (12.0-15.0); Lymphocytes % 21.8 % (15.3-44.8); MCH 28.8 pg (27.0-35.0); MCHC 31.9 g/dL (32.0-36.0); MCV 90.3 fL (80-100); MPV 8.9 fL (7.6-11.3); Neutrophils % 65.6 % (41.7-73.7); Platelets 179 thou/uL (152-406); RBC Red Blood Cell Count 3.87 M/uL (3.86-4.86); Red Cell Distribution Width 17.1 % (12.1-15.2)
[2024-02-20 13:19] LABS: PT Prothrombin Time 11.7 SECONDS (9.4-12.5); Protime INR 1.05
[2024-02-20 13:20] LABS: Specific Gravity 1.015 (1.005-1.030); Sqamous Epithelial <5 /HPF (None Seen); Urine Bacteria >50 /HPF (<20); Urine Bilirubin NEGATIVE (Negative); Urine Blood 1+ (Negative); Urine Clarity Extremely Turbid (Clear); Urine Color Yellow (Yellow); Urine Culture Reflex Order REFLEXED; Urine Glucose NEGATIVE (Negative); Urine Ketones NEGATIVE (Negative); Urine Microscopic Reflex YN ORDER UMIC; Urine Nitrite 1+ (Negative); Urine Protein 1+ (Negative); Urine Urobilinogen Normal (Normal); Urine WBC >50 /HPF (<5); Urine WBC Clump Moderate /HPF (None Seen); Urine pH 6.5 (5.0-7.0)
[2024-02-20 13:37] LABS: Albumin 2.7 g/dL (3.4-5.0); Albumin/Globulin Ratio 0.6 (1.1-1.8); Alkaline Phosphatase 67 U/L (45-117); Anion Gap 8.4 mEq/L (5.0-15.0); BUN Blood Urea Nitrogen 32 mg/dL (7-18); Bicarbonate 28 mEq/L (21-32); Bilirubin Total 0.3 mg/dL (0.2-1.0); Globulin 4.4 g/dL (2.3-3.5); Glomerular Filtration Rate 46 ml/min (=/>90); Glucose Level 158 mg/dL (74-106); Magnesium 1.5 mg/dL (1.6-2.4); Potassium 4.4 mEq/L (3.5-5.1); Protein, Total 7.1 g/dL (6.4-8.2); Sodium Level 139 mEq/L (136-145); Troponin High Sensitivity 24.6 pg/mL (<58.9)
[2024-02-20 13:38] LABS: ALT/SGPT < 14 U/L (13-56); AST/SGOT < 10 U/L (15-37); Bilirubin Direct < 0.2 mg/dL (0-0.2); Bilirubin Indirect, Calculated 0.1 mg/dL (0.2-0.8)
--- NOTE | 2024-02-20 13:52 | RAD REPORT ---
EXAM DESCRIPTION: RAD - Chest Single View - 02/20/2024 1:16 pm CLINICAL HISTORY: AMS Chest pain. COMPARISON: Chest Single View dated 12/02/2023; CHEST SINGLE VIEW dated 09/04/2011; CT ABDOMEN PELVIS WO CONTRAST dated 09/04/2011 FINDINGS: Portable technique limits examination quality. The lungs are grossly clear. The heart is normal in size. Prominent pericardial fat pad suspected.Aor tic atherosclerosis. IMPRESSION: No acute intrathoracic process suspected.
--- NOTE | 2024-02-20 14:02 | EDPHYS ---
Physician Documentation [facility] Name: Ariella Bustillo Age: 78 yrs Sex: Female : 1945 Arrival Date: 02/20/2024 Time: 11:57 Bed 7 Private MD: ED Physician Gricelda Hollingsworth HPI: 02/19 12:42 This 78 yrs old Female presents to ER via EMS with complaints of drowsy. sp3 12:42 78-year-old female with history of Alzheimer's, diabetes, insomnia, osteoarthritis, sp3 GERD presents [facility] the ED from [facility] facility after family arrived to find patient with "increased drowsiness". Family states that she is a bit more out of it than normal and wanted to get evaluated here in the ED. Patient has baseline dementia and is nonverbal and therefore ROS, history physical from patient is limited. No other significant history from EMS noted.. Historical: - Allergies: 12:07 Iodine; ko1 12:07 PENICILLINS; ko1 - PMHx: 12:07 Alzheimer's disease; diabetes mellitus; insomnia; osteoarthritis; Gastroesophageal ko1 reflux disease; DYSPHAGIA; Dementia; Anxiety; Anterograde Amnesia; Rheumatoid Arthritis; - PSHx: 12:07 Appendectomy; back surgery; ko1 - Immunization history:: Adult Immunizations unknown. - Infectious Disease History:: unknown. - Social history:: Smoking status: unknown. ROS: 12:43 Unable to obtain ROS due to altered mental status, baseline dementia, sp3 Exam: 12:43 Constitutional: This is a well developed, well nourished patient who is awake, alert, sp3 and in no acute distress. Head/Face: Normocephalic, atraumatic. Eyes: Pupils equal round and reactive to light, extra-ocular motions intact. Lids and lashes normal. Conjunctiva and sclera are non-icteric and not injected. Cornea within normal limits. Periorbital areas with no swelling, redness, or edema. Neck: Trachea midline, no thyromegaly or masses palpated, and no cervical lymphadenopathy. Supple, full range of motion without nuchal rigidity, or vertebral point tenderness. No Meningismus. Chest/axilla: Normal chest wall appearance and motion. Nontender with no deformity. No lesions are appreciated. Cardiovascular: Regular rate and rhythm with a normal S1 and S2. No gallops, murmurs, or rubs. Normal PMI, no JVD. No pulse deficits. Respiratory: Lungs have equal breath sounds bilaterally, clear to auscultation and percussion. No rales, rhonchi or wheezes noted. No increased work of breathing, no retractions or nasal flaring. Skin: Warm, dry with normal turgor. Normal color with no rashes, no lesions, and no evidence of cellulitis. 12:43 Constitutional: The patient appears Patient resting in no acute distress and does not appear to be in any grimace or pain. Limited physical exam however no gross or significant abnormalities noted. Neurological exam limited secondary to Alzheimer's. Grossly no lateralized deficits noted. 12:51 ECG was reviewed by the Attending Physician. EKG demonstrates normal sinus rhythm at 67 sp3 bpm with normal intervals, leftward axis, poor R wave progression in the precordial leads on QRS, and none specific diffuse ST/T wave changes without evidence of acute ischemia. Vital Signs: 12:04 BP 128 / 82; Pulse 68; Resp 16; Temp 97; Pulse Ox 98% on R/A; ko1 12:51 BP 136 / 50; Pulse 60; Resp 17; Pulse Ox 97% ; dd2 13:28 BP 130 / 47; Pulse 56; Resp 16; Pulse Ox 97% ; dd2 14:30 BP 113 / 45; Pulse 52; Resp 16; Pulse Ox 96% ; dd2 16:19 BP 126 / 53; Pulse 58; Resp 14; Pulse Ox 95% ; ko1 MDM: 12:03 Patient medically screened. [facility] 12:43 Data reviewed: vital signs, nurses notes, EMS record, lab test result(s), EKG, sp3 radiologic studies. ED course: 78-year-old female with altered mental status/drowsiness. Broad differential exist including dehydration, electrolyte abnormality, infection, UTI, pneumonia, ACS, TIA/CVA spectrum, other intracranial abnormality, among others. Workup will be broad and include CT scan of the head, urine analysis via cath, laboratory values, EKG and general supportive care. If workup negative, we will safely discharge patient back to nursing facility however if abnormality noted we will intervene as indicated.. 14:00 ED course: Large UTI found and patient continues to be with decreased responsiveness. sp3 Levaquin started IV due to penicillin allergy. Patient will admitted to medicine service.. 02/19 12:05 Order name: Basic Metabolic Panel; Complete Time: 13:55 3 02/19 12:05 Order name: CBC with Diff; Complete Time: 13:55 3 02/19 12:05 Order name: Hepatic Function; Complete Time: 13:55 3 02/19 12:05 Order name: Magnesium; Complete Time: 13:55 3 02/19 12:05 Order name: Protime (+inr); Complete Time: 13:55 3 02/19 12:05 Order name: Troponin High Sensitivity; Complete Time: 13:55 3 02/19 12:05 Order name: Urinalysis w/ reflexes; Complete Time: 13:55 3 02/19 13:23 Order name: Urine Culture EDMS 02/19 12:05 Order name: CT Head Brain wo Cont; Complete Time: 12:34 3 02/19 12:05 Order name: Chest Single View XRAY; Complete Time: 13:55 3 02/19 14:24 Order name: CT Abd/Pelvis - Without Contrast; Complete Time: 15:15 la1 02/19 12:05 Order name: Cardiac monitoring; Complete Time: 12:19 3 02/19 12:05 Order name: EKG - Nurse/Tech; Complete Time: 12:35 3 02/19 12:05 Order name: IV Saline Lock; Complete Time: 13:48 3 02/19 12:05 Order name: Labs collected and sent; Complete Time: 13:48 3 02/19 12:05 Order name: NPO; Complete Time: 12:18 3 02/19 12:05 Order name: O2 Sat Monitoring; Complete Time: 12:18 sp3 Administered Medications: 14:28 Drug: levofloxacin IVPB 500 mg 100 ml IVPB once over 60 mins Volume: 100 ml; Route: ko1 IVPB; Infused Over: 60 mins; Site: right antecubital; 14:43 Follow up: Response: No adverse reaction dd2 15:28 Follow up: Response: No adverse reaction; IV Status: Completed infusion; IV Intake: dd2 110ml 14:46 Drug: NS 0.9% IV 500 ml IV at bolus once Route: IV; Rate: bolus; Site: right dd2 antecubital; 15:20 Follow up: Response: No adverse reaction; IV Status: Completed infusion; IV Intake: dd2 500ml 14:46 Drug: NS 0.9% IV 1000 ml IV at 75 ml/hr continuous Route: IV; Rate: 75 ml/hr; Site: dd2 right antecubital; Disposition Summary: 02/20/24 14:01 Hospitalization Ordered Notes: Hospitalization Status: Inpatient Admission sp3 Provider: Vel Kenney sp3 Location: Telemetry/MedSurg (Inpatient) sp3 Condition: Stable sp3 Problem: an acute exacerbation sp3 Symptoms: have worsened sp3 Bed/Room Type: Standard sp3 Room Assignment: 210(02/20/24 14:44) bd Diagnosis - UTI, early sepsis, altered mental status sp3 Forms: - Medication Reconciliation Form sp3 - SBAR form sp3 - Leadership Thank You Letter sp3 Signatures: Dispatcher [employer] EDMS Myah Borrero Corey, MD MD cha Attema, Lee, TAR CHASER-C TAR CHASER-Cla1 Gricelda Hollingsworth MD MD sp3 Val Reynoso RN RN ko1 LEX THAKUR RN RN dd2 Corrections: (The following items were deleted from the chart) 12:06 12:06 BASIC METABOLIC PANEL+C.LAB.BRZ ordered. EDMS EDMS 12:06 12:06 CBC+H.LAB.BRZ ordered. EDMS EDMS 12:06 12:06 HEPATIC FUNCTION+C.LAB.BRZ ordered. EDMS EDMS 12:06 12:06 MAGNESIUM+C.LAB.BRZ ordered. EDMS EDMS 12:06 12:06 PROTIME (+INR)+COAG.LAB.BRZ ordered. EDMS EDMS 12:06 12:06 Troponin High Sensitivity+C.LAB.BRZ ordered. EDMS EDMS 12:06 12:06 Urinalysis+U.LAB.BRZ ordered. EDMS EDMS 12:06 12:06 Head Brain Wo Cont+CT.RAD.BRZ ordered. EDMS EDMS 12:06 12:06 Chest Single View+RAD.RAD.BRZ ordered. EDMS EDMS 14:44 14:01 sp3 bd
--- NOTE | 2024-02-20 14:02 | ER ---
Nurse's Notes [facility] Name: Ariella Bustillo Age: 78 yrs Sex: Female : 1945 Arrival Date: 02/20/2024 Time: 11:57 Bed 7 Private MD: Diagnosis: UTI, early sepsis, altered mental status Presentation: 02/19 12:04 Chief complaint: EMS states: called to [facility] because family said patient was too ko1 sleepy and was sleeping too much. VSS, bg 171. Coronavirus screen: At this time, the client does not indicate any symptoms associated with coronavirus-19. Ebola Screen: No symptoms or risks identified at this time. Initial Sepsis Screen: Does the patient meet any 2 criteria? No. Patient's initial sepsis screen is negative. Does the patient have a suspected source of infection? No. Patient's initial sepsis screen is negative. Risk Assessment: Do you want to hurt yourself or someone else? Patient reports no desire to harm self or others. Onset of symptoms was February 20, 2024. Care prior to arrival: Glucose check: 171. Transition of care: patient was received from another setting of care (long-term care facility), [facility]. 12:04 Method Of Arrival: EMS: [facility] ko1 12:04 Acuity: FRANSISCO 3 ko1 Triage Assessment: 12:07 General: Appears in no apparent distress. obese, Behavior is cooperative, drowsy. Pain: ko1 Denies pain. Historical: - Allergies: 12:07 Iodine; ko1 12:07 PENICILLINS; ko1 - PMHx: 12:07 Alzheimer's disease; diabetes mellitus; insomnia; osteoarthritis; Gastroesophageal ko1 reflux disease; DYSPHAGIA; Dementia; Anxiety; Anterograde Amnesia; Rheumatoid Arthritis; - PSHx: 12:07 Appendectomy; back surgery; ko1 - Immunization history:: Adult Immunizations unknown. - Infectious Disease History:: unknown. - Social history:: Smoking status: unknown. Screenin:09 [facility] ED Fall Risk Assessment (Adult) History of falling in the last 3 months, dd2 including since admission Yes- fall prone (multiple falls) (3 pts) Confusion or Disorientation Yes (5 pts) Intoxicated or Sedated No (0 pts) Impaired Gait Yes (1 pt) Mobility Assist Device Used Yes (1 pt) Altered Elimination Yes (1 pt) Score/Fall Risk Level 3 or more points = High Risk Oriented to surroundings, Maintained a safe environment, Educated pt \T\ family on fall prevention, incl call for assistance when getting out of bed, Assessed \T\ reinforced patient's understanding of fall precautions, Hourly rounding (assess needs \T\ fall precautionary measures) done, Utilized family, sitter, or virtual plastering contractor as indicated. Abuse screen: Denies threats or abuse. Nutritional screening: No deficits noted. Tuberculosis screening: No symptoms or risk factors identified. Assessment: 12:51 General: Appears in no apparent distress. Behavior is drowsy. Pain: Unable to use pain dd2 scale. Does not appear to understand pain scale. Neuro: Level of Consciousness is confused, lethargic, Oriented to none. Cardiovascular: Patient's skin is warm and dry. Rhythm is sinus arrythmia. Respiratory: Airway is patent Respiratory effort is even, unlabored, Respiratory pattern is regular, symmetrical, Breath sounds are clear bilaterally. GI: No deficits noted. Abdomen is non-distended, Abd is soft and non tender. : Urine is cloudy, foul odor. EENT: No deficits noted. No signs and/or symptoms were reported regarding the EENT system. Derm: Skin is fragile, is thin, Skin is pale. Musculoskeletal: No deficits noted. Vital Signs: 12:04 BP 128 / 82; Pulse 68; Resp 16; Temp 97; Pulse Ox 98% on R/A; ko1 12:51 BP 136 / 50; Pulse 60; Resp 17; Pulse Ox 97% ; dd2 13:28 BP 130 / 47; Pulse 56; Resp 16; Pulse Ox 97% ; dd2 14:30 BP 113 / 45; Pulse 52; Resp 16; Pulse Ox 96% ; dd2 16:19 BP 126 / 53; Pulse 58; Resp 14; Pulse Ox 95% ; ko1 ED Course: 12:03 Patient arrived in ED. ko1 12:03 Dong Camacho MD is Attending Physician. [facility] 12:04 Attending Physician role handed off by Dong Camacho MD sp3 12:04 Gricelda Hollingsworth MD is Attending Physician. sp3 12:07 Triage completed. ko1 12:07 Arm band placed on right wrist. Patient placed in an exam room, on a stretcher, on ko1 staff technologist, on pulse oximetry, Patient notified of wait time. 12:12 LEX THAKUR, RN is Primary Nurse. dd2 12:18 CT Head Brain wo Cont In Process Unspecified. EDMS 13:07 Urinalysis w/ reflexes Sent. ld1 13:09 Patient has correct armband on for positive identification. Bed in low position. Call dd2 light in reach. Side rails up X2. Provided Education on: call light, labs, procedures. Client placed on continuous cardiac and pulse oximetry monitoring. NIBP monitoring applied. supervisor sewing room on. Door closed. Warm blanket given. Pillow given. 13:09 No provider procedures requiring assistance completed. Initial lab(s) drawn, by me, dd2 sent to lab. Urine collected: straight cath specimen, cloudy, sediment noted, EKG done, by ED staff, reviewed by Gricelda Hollingsworth MD. Inserted saline lock: 20 gauge in right antecubital area, using aseptic technique. Blood collected. Flushed with 10 mL NS. 13:18 Chest Single View XRAY In Process Unspecified. EDMS 14:01 Vel Kenney MD is Hospitalizing Provider. sp3 14:35 CT Abd/Pelvis - Without Contrast In Process Unspecified. EDMS 16:27 Patient admitted, IV remains in place. dd2 Administered Medications: 14:28 Drug: levofloxacin IVPB 500 mg 100 ml IVPB once over 60 mins Volume: 100 ml; Route: ko1 IVPB; Infused Over: 60 mins; Site: right antecubital; 14:43 Follow up: Response: No adverse reaction dd2 15:28 Follow up: Response: No adverse reaction; IV Status: Completed infusion; IV Intake: dd2 110ml 14:46 Drug: NS 0.9% IV 500 ml IV at bolus once Route: IV; Rate: bolus; Site: right dd2 antecubital; 15:20 Follow up: Response: No adverse reaction; IV Status: Completed infusion; IV Intake: dd2 500ml 14:46 Drug: NS 0.9% IV 1000 ml IV at 75 ml/hr continuous Route: IV; Rate: 75 ml/hr; Site: dd2 right antecubital; Medication: 13:09 VIS not applicable for this client. dd2 Intake: 15:20 IV: 500ml; Total: 500ml. dd2 15:28 IV: 110ml; Total: 610ml. dd2 Outcome: 14:01 Decision to Hospitalize by Provider. sp3 16:27 Admitted to Med/surg accompanied by tech, via stretcher, with chart, dd2 16:27 Condition: stable 16:27 Instructed on the need for admit, 16:36 Patient left the ED. az Signatures: Dispatcher [employer] EDMS Dong Camacho MD MD cha Zavala, Araceli az Sims, Lauren, RN RN ld1 Gricelda Hollingsworth MD MD sp3 Val Reynoso RN RN ko1 LEX THAKUR RN RN dd2 Corrections: (The following items were deleted from the chart) 12:09 12:04 Chief complaint: EMS states: called to [facility] because family said patient tosin1 was too sleepy and was sleeping too much. VSS, bg 180 ko1
[2024-02-20] MEDS ORDERED: Levofloxacin500mg IV 500 MG/100 ML BAG IV ONE (14:09)
[2024-02-20] MEDS ORDERED: NA CHLORIDE 0.9% 500 ML ONE (14:37)
[2024-02-20] MEDS ORDERED: NA CHLORIDE 0.9% 1,000 ML ONE (14:37)
--- NOTE | 2024-02-20 14:59 | P.HP ---
Certification for Inpatient Patient admitted to: Inpatient With expected LOS: >2 Midnights Patient will require the following post-hospital care: None Practitioner: I am a practitioner with admitting privileges, knowledge of patient current condition, hospital course, and medical plan of care. Services: Services provided to patient in accordance with Admission requirements found in Title 42 Section 412.3 of the Code of Federal Regulations Patient History Date of Service: 02/20/24 Reason for admission: UTI, AMS History of Present Illness: 78-year-old female with history of dementia, diabetes mellitus type 2, hypertension, GERD, RA, hyperlipidemia presents emergency department chief complaint of altered mental status. Daughter at bedside reports that patient is a resident of [facility], she is typically oriented x 1-2 and is very alert/responsive. She is mainly confined to bed/wheelchair. They noticed that after breakfast today she became more lethargic, confused/disoriented and for that reason she was brought to the emergency department for evaluation. Patient was evaluated here in the emergency department CT head was negative for acute findings chest x-ray was unremarkable labs showed a creatinine of 1.21 white blood cell count 12.5 urinalysis with concern for urinary tract infection. Patient was started on IV antibiotics in ED provider wishes to admit for metabolic encephalopathy, UTI. Allergies Penicillins Allergy (Severe, Verified 09/04/11 19:12) Itching/Hives/Rash - Past Medical/Surgical History Diabetic: No -: Diabetes mellitus type 2 -: Alzheimer's dementia -: Hypertension -: Hyperlipidemia -: GERD -: RA Past Surgical History: Unable to obtain Psychosocial/ Personal History: Patient is a resident of [facility] - Social History Place of Residence: [facility] Review of Systems 10-point ROS is otherwise unremarkable Gastrointestinal: Abdominal Pain Physical Examination - Physical Exam General: Oriented x1, Other (Drowsy, confused) HEENT: PERRLA Neck: Supple Respiratory: Clear to auscultation bilaterally Cardiovascular: No edema Capillary refill: <2 Seconds Gastrointestinal: Normal bowel sounds, Tenderness (Mild generalized abdominal tenderness) Musculoskeletal: No clubbing, No swelling Integumentary: No cyanosis Neurological: Other (Moves all extremities, follows simple commands, no focal neurological deficits, 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) - Studies Laboratory Data (last 24 hrs) 02/20/24 02/20/24 02/20/24 13:05 13:05 13:05 WBC 12.50 H Hgb 11.1 L Hct 34.9 L Plt Count 179 PT 11.7 INR 1.05 Sodium 139 Potassium 4.4 BUN 32 H Creatinine 1.21 H Glucose 158 H Magnesium 1.5 L Total Bilirubin 0.3 AST < 10 L ALT < 14 Alkaline Phosphatase 67 Assessment and Plan - Plan Assessment: UTI Toxic metabolic encephalopathy secondary to UTI Hypomagnesemia Alzheimer's dementia Diabetes mellitus type [id number] Hypertension Hyperlipidemia GERD Rheumatoid arthritis Plan: UTI Toxic metabolic encephalopathy secondary to UTI Urine culture obtained in EDwill follow Some abdominal tenderness on exam, CT abdomen/pelvis without contrast pending for further evaluation Continue antibioticsLevaquin given penicillin allergy Family does report history of UTI Consider MRI brain if mental status not improving Hypomagnesemia Monitor with daily labs, protocol in place Diabetes mellitus type [id number]-rhunobioh ACHS Accu-Chek, sliding scale insulin Alzheimer's dementia Hypertension Hyperlipidemia GERD Rheumatoid arthritis Continue home medications DVT PPX: Lovenox Code status: DNR Discharge Plan: [facility] Plan to discharge in: 48 Hours - Advance Directives Does patient have a Living Will: No Does patient have a Durable POA for Healthcare: No - Code Status/Comfort Care Code Status Assessed: Yes (DNR) Critical Care: No Time Spent Managing Pts Care (In Minutes): 62
--- NOTE | 2024-02-20 15:12 | RAD REPORT ---
EXAM DESCRIPTION: CT - Abdomen Pelvis Wo Contrast - 02/20/2024 2:33 pm CLINICAL HISTORY: Abdominal pain. ABD PAIN COMPARISON: CT ABDOMEN PELVIS WO CONTRAST dated 09/04/2011 TECHNIQUE: CT imaging of the abdomen and pelvis was performed without contrast. Solid organ, bowel a nd vascular assessment is limited due to lack of IV and oral contrast. All CT scans are performed using dose optimization technique as appropriate and may include automated exposure control or mA/KV adjustment according to patient size. FINDINGS: Mild linear atelectasis is present right lung base.Cholecystectomy clips. The liver, spleen, pancreas, adrenal glands and kidneys are within normal limits for a limited non-co ntrast examination.3.2 cm cyst superior left kidney. No bowel obstruction, free air, free fluid or abscess. Focal dilatation of the infrarenal abdominal a patricio measuring 3.1 cm maximally. Nonvisualized appendix. Moderate rectosigmoid stool retention with m ild inflammation in the posterior pelvis. Scattered sigmoid diverticulosis. Small air bubble seen in the urinary bladder. Diffuse osteopenia is seen. Mild lower lumbar degenerative changes. IMPRESSION: No acute intra-abdominal or pelvic findings. Tiny air bubble urinary bladder could indicate cystitis or recent instrumentation. Moderate stool is retained in the rectosigmoid colon with slight surrounding inflammation. This could indicate proctitis. A limited non-contrast examination was performed as detailed.
[2024-02-20 16:47] VITALS: O2SAT 95
[2024-02-20 17:18] VITALS: BMI 28.3
[2024-02-20] MEDS: INSULIN REGULAR (HUMAN) 100 UNIT/ML SQ SCH (17:30)
[2024-02-20] MEDS: NA CHLORIDE 0.9% 1,000 ML IV SCH (17:30)
[2024-02-20] MEDS ORDERED: ONDANSETRON 4 MG/2 ML VIAL IV PRN (17:30)
[2024-02-20] MEDS: ENOXAPARIN 40 MG/0.4 ML SQ SCH (18:00)
[2024-02-20] MEDS: OLANZapine 10 MG TABLET PO ONE (23:00)
[2024-02-21 08:11] LABS: Absolute Basophils 0.1 K/uL (0-0.5); Absolute Eosinophils 0.2 K/uL (0-0.5); Absolute Lymphocytes (CBC) 2.4 K/uL (0.7-4.9); Absolute Monocytes 0.9 K/uL (0.1-1.3); Absolute Neutrophil 3.7 K/uL (1.8-8.0); Basophils % 1.1 % (0-1.3); Eosinophils % 2.6 % (0-4.4); Hematocrit 30.1 % (36.0-45.0); Lymphocytes % 32.9 % (15.3-44.8); MCH 29.7 pg (27.0-35.0); MCHC 33.3 g/dL (32.0-36.0); MCV 89.1 fL (80-100); MPV 8.7 fL (7.6-11.3); Monocytes % 11.8 % (3.3-12.3); Neutrophils % 51.6 % (41.7-73.7); Nucleated Red Blood Cells % 0.1 % (0-0); Platelets 171 thou/uL (152-406); RBC Red Blood Cell Count 3.38 M/uL (3.86-4.86); Red Cell Distribution Width 17.4 % (12.1-15.2)
[2024-02-21] MEDS: FAMOTIDINE 20 MG TAB PO SCH (08:20)
[2024-02-21] MEDS: METFORMIN HCL 500 MG TAB PO SCH (08:21)
[2024-02-21] MEDS: HOME MED 1 EA UNK (Sitagliptin Phosphate [Januvia] 50 MG Tablet) PO SCH (08:25)
[2024-02-21 08:48] LABS: Albumin 2.4 g/dL (3.4-5.0); Albumin/Globulin Ratio 0.6 (1.1-1.8); Alkaline Phosphatase 57 U/L (45-117); Anion Gap 7.3 mEq/L (5.0-15.0); BUN Blood Urea Nitrogen 29 mg/dL (7-18); Bicarbonate 26 mEq/L (21-32); Bilirubin Total 0.2 mg/dL (0.2-1.0); Globulin 3.8 g/dL (2.3-3.5); Glomerular Filtration Rate 54 ml/min (=/>90); Glucose Level 123 mg/dL (74-106); Potassium 4.3 mEq/L (3.5-5.1); Protein, Total 6.2 g/dL (6.4-8.2); Sodium Level 140 mEq/L (136-145)
[2024-02-21 08:49] LABS: ALT/SGPT < 14 U/L (13-56); AST/SGOT < 10 U/L (15-37)
[2024-02-21] MEDS ORDERED: Levofloxacin 250mg IV 250 MG/50 ML BAG IV SCH (14:00)
--- NOTE | 2024-02-21 16:07 | P.PN ---
Date of Service: 02/21/24 Subjective: Much more alert than yesterday, still confused, with dementia No other acute events overnight Improving ROS: 10 point ROS as noted above, otherwise negative General: Oriented x1, Awake, alert HEENT: PERRLA Neck: Supple Respiratory: Clear to auscultation bilaterally Cardiovascular: No edema Capillary refill: <2 Seconds Gastrointestinal: Normal bowel sounds, Tenderness (Mild generalized abdominal tenderness) Musculoskeletal: No clubbing, No swelling Integumentary: No cyanosis Neurological: Other (Moves all extremities, follows simple commands, no focal neurological deficits, 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) Vitals reviewed Assessment: UTI Toxic metabolic encephalopathy secondary to UTI Hypomagnesemia Alzheimer's dementia Diabetes mellitus type [id number] Hypertension Hyperlipidemia GERD Rheumatoid arthritis Plan: UTI Toxic metabolic encephalopathy secondary to UTI Urine culture obtained in EDwill follow CT abdomen/pelvis concerning for UTI, no other acute findings Continue antibioticsLevaquin given penicillin allergy Family does report history of UTI Mental status improved with IV fluids, antibiotics Await urine culture Hypomagnesemia Monitor with daily labs, protocol in place Diabetes mellitus type [id number] ACHS Accu-Chek, sliding scale insulin Alzheimer's dementia Hypertension Hyperlipidemia GERD Rheumatoid arthritis Continue home medications DVT PPX: Lovenox Code status: DNR Discharge Plan: [facility] Plan to discharge in: 48 Hours
[2024-02-21] MEDS: OLANZapine 10 MG TABLET PO SCH (20:25)
[2024-02-22 06:28] LABS: Absolute Basophils 0.1 K/uL (0-0.5); Absolute Eosinophils 0.2 K/uL (0-0.5); Absolute Lymphocytes (CBC) 2.4 K/uL (0.7-4.9); Absolute Monocytes 0.9 K/uL (0.1-1.3); Absolute Neutrophil 4.5 K/uL (1.8-8.0); Basophils % 0.9 % (0-1.3); Eosinophils % 2.4 % (0-4.4); Hematocrit 30.9 % (36.0-45.0); Hemoglobin 9.9 g/dL (12.0-15.0); Lymphocytes % 29.4 % (15.3-44.8); MCH 29.1 pg (27.0-35.0); MCHC 32.2 g/dL (32.0-36.0); MCV 90.2 fL (80-100); MPV 8.9 fL (7.6-11.3); Monocytes % 11.6 % (3.3-12.3); Neutrophils % 55.7 % (41.7-73.7); Platelets 141 thou/uL (152-406); RBC Red Blood Cell Count 3.42 M/uL (3.86-4.86)
[2024-02-22 06:44] LABS: Albumin 2.3 g/dL (3.4-5.0); Albumin/Globulin Ratio 0.6 (1.1-1.8); Alkaline Phosphatase 54 U/L (45-117); Anion Gap 7.9 mEq/L (5.0-15.0); BUN Blood Urea Nitrogen 22 mg/dL (7-18); Bicarbonate 25 mEq/L (21-32); Bilirubin Total 0.3 mg/dL (0.2-1.0); Globulin 3.6 g/dL (2.3-3.5); Glomerular Filtration Rate 60 ml/min (=/>90); Glucose Level 135 mg/dL (74-106); Potassium 3.9 mEq/L (3.5-5.1); Protein, Total 5.9 g/dL (6.4-8.2); Sodium Level 141 mEq/L (136-145)
[2024-02-22 06:47] LABS: ALT/SGPT < 14 U/L (13-56); AST/SGOT < 10 U/L (15-37)
[2024-02-22] MEDS: CEFTRIAXONE 1,000 MG in NA CHLORIDE 0.9% 50 ML IVPB SCH (09:00)
[2024-02-22] MEDS ORDERED: Levofloxacin 750mg IV 750 MG/150 ML BAG IV SCH (09:00)
--- NOTE | 2024-02-22 12:09 | P.PN ---
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 coli Toxic metabolic encephalopathy secondary to UTI Hypomagnesemia Alzheimer's dementia Diabetes mellitus type [id number]-hdwjnivfu Hypertension Hyperlipidemia GERD Rheumatoid arthritis Plan: UTI-secondary to E. coli Toxic metabolic encephalopathy secondary to UTI Urine culture obtained in ED-shows E. coli resistant to levofloxacin CT abdomen/pelvis concerning for UTI, no other acute findings Family reports anaphylactic reaction to penicillin, resistant to fluoroquinolones Chart review shows prescription for cefpodoxime few months ago, will need to determine if this was tolerated well by patient If patient did successfully tolerate cefpodoxime will likely treat with Rocephin and possibly oral antibiotics tomorrow if still doing wel Hypomagnesemia Monitor with daily labs, protocol in place Diabetes mellitus type [id number]-bacstxl-fzjnbfofz ACHS Accu-Chek, sliding scale insulin Alzheimer's dementia Hypertension Hyperlipidemia GERD Rheumatoid arthritis Continue home medications DVT PPX: Lovenox Code status: DNR Discharge Plan: [facility] Plan to discharge in: 48 Hours
--- NOTE | 2024-02-22 16:29 | EKG ---
Test Date: 2024-02-20 Test Time: 12:32:29 Supervisor [employer]working: Marnie SI MEASUREMENT RESULTS: Intervals: Rate: 67 TX: 170 QRSD: 64 QT: 408 QTc: 431 [place]: P: 53 TX: 170 QRS: -60 T: 47 INTERPRETIVE STATEMENTS: Normal sinus rhythm Left axis deviation Low voltage QRS Inferior infarct, age undetermined Anterolateral infarct, age undetermined Abnormal ECG Compared to ECG 12/02/2023 04:47:54 No significant changes Electronically Signed On 02-22-24 16:23:49 CDT by See Ray
[2024-02-22] MEDS: ACETAMINOPHEN 325 MG TABLET PO PRN (20:18)
[2024-02-23 06:30] LABS: Absolute Basophils 0.1 K/uL (0-0.5); Absolute Eosinophils 0.3 K/uL (0-0.5); Absolute Monocytes 0.9 K/uL (0.1-1.3); Absolute Neutrophil 3.2 K/uL (1.8-8.0); Basophils % 1.1 % (0-1.3); Eosinophils % 3.6 % (0-4.4); Hematocrit 32.6 % (36.0-45.0); Hemoglobin 10.7 g/dL (12.0-15.0); Lymphocytes % 40.7 % (15.3-44.8); MCH 29.7 pg (27.0-35.0); MCHC 32.9 g/dL (32.0-36.0); MCV 90.3 fL (80-100); MPV 9.7 fL (7.6-11.3); Monocytes % 11.6 % (3.3-12.3); Nucleated Red Blood Cells % 0.1 % (0-0); Platelets 116 thou/uL (152-406); RBC Red Blood Cell Count 3.61 M/uL (3.86-4.86); Red Cell Distribution Width 17.3 % (12.1-15.2)
[2024-02-23 06:39] LABS: Albumin 2.5 g/dL (3.4-5.0); Albumin/Globulin Ratio 0.7 (1.1-1.8); Alkaline Phosphatase 59 U/L (45-117); Anion Gap 8.8 mEq/L (5.0-15.0); BUN Blood Urea Nitrogen 19 mg/dL (7-18); Bicarbonate 25 mEq/L (21-32); Bilirubin Total 0.3 mg/dL (0.2-1.0); Globulin 3.7 g/dL (2.3-3.5); Glomerular Filtration Rate 65 ml/min (=/>90); Glucose Level 110 mg/dL (74-106); Potassium 3.8 mEq/L (3.5-5.1); Protein, Total 6.2 g/dL (6.4-8.2); Sodium Level 143 mEq/L (136-145)
[2024-02-23 06:40] LABS: ALT/SGPT < 14 U/L (13-56); AST/SGOT < 10 U/L (15-37)
[2024-02-23 07:23] LABS: Blood Morphology Comment NOT SEEN (NOT SEEN); Platelet Estimate DECR; White Blood Cell Scan OK (OK)
[2024-02-23 09:00] VITALS: BP 170/97
[2024-02-23] MEDS: POTASSIUM CL SA 10 MEQ TAB PO ONE (09:20)
[2024-02-23 10:46] VITALS: TEMP 97.1
--- NOTE | 2024-02-23 14:53 | P.DS ---
Admission Date: 02/20/24 Discharge Date: 02/23/24 Disposition: TRANSFER TO INTERMEDIATE Discharge Condition: GOOD Reason for Admission: UTI, AMS Brief History of Present Illness: 78-year-old female with history of dementia, diabetes mellitus type 2, hypertension, GERD, RA, hyperlipidemia presents emergency department chief complaint of altered mental status. Daughter at bedside reports that patient is a resident of [facility], she is typically oriented x 1-2 and is very alert/responsive. She is mainly confined to bed/wheelchair. They noticed that after breakfast today she became more lethargic, confused/disoriented and for that reason she was brought to the emergency department for evaluation. Patient was evaluated here in the emergency department CT head was negative for acute findings chest x-ray was unremarkable labs showed a creatinine of 1.21 white blood cell count 12.5 urinalysis with concern for urinary tract infection. Patient was started on IV antibiotics in ED provider wishes to admit for metab olic encephalopathy, UTI. Hospital Course: Assessment: UTI-secondary to E. coli Toxic metabolic encephalopathy secondary to UTI Hypomagnesemia Alzheimer's dementia Diabetes mellitus type [id number] Hypertension Hyperlipidemia GERD Rheumatoid arthritis Patient was admitted to the hospital for metabolic encephalopathy, UTI, dehydration. She was treated with IV fluids and initially levofloxacin for urinary tract infection as she had a anaphylactic penicillin allergy. Her urine culture came back and showed E. coli which was only sensitive to cephalosporins and meropenem. After further chart review in November patient had a urinary tract infection and was prescribed cefpodoxime which she reportedly tolerated well. She was given IV Rocephin during her hospitalization on 02/21 and had no adverse effects. Patient's mental status significantly improved with IV fluids and antibiotics white blood cell count was initially 12.5 is now down to 7.5, she has remained afebrile and is at her baseline mental status. Patient is stable for discharge back to [place] where she is a resident. Continue home medications as previously prescribed Start taking cefdinir 300 mg by mouth twice daily for 7 days total Vital Signs/Physical Exam: Temp Pulse Resp BP Pulse Ox 97.1 F 56 14 170/97 H 96 02/23/24 10:45 02/23/24 10:45 02/23/24 10:45 02/23/24 08:00 02/23/24 10:45 General: Alert, In no apparent distress, Oriented x2 HEENT: Atraumatic, PERRLA Neck: Supple, JVD not distended Respiratory: Clear to auscultation bilaterally, Normal air movement Cardiovascular: Regular rate/rhythm, Normal S1 S2 Gastrointestinal: Normal bowel sounds, No tenderness Musculoskeletal: No tenderness Integumentary: No rashes Neurological: Normal speech, Normal tone, Normal affect Laboratory Data at Discharge: WBC 7.50 thou/uL (4.3-10.9) 02/23/24 05:44 Hgb 10.7 g/dL (12.0-15.0) L D 02/23/24 05:44 Hct 32.6 % (36.0-45.0) L 02/23/24 05:44 Plt Count 116 thou/uL (152-406) L 02/23/24 05:44 PT 11.7 SECONDS (9.4-12.5) 02/20/24 13:05 INR 1.05 02/20/24 13:05 Sodium 143 mEq/L (136-145) 02/23/24 05:44 Potassium 3.8 mEq/L (3.5-5.1) 02/23/24 05:44 BUN 19 mg/dL (7-18) H 02/23/24 05:44 Creatinine 0.91 mg/dL (0.55-1.02) 02/23/24 05:44 Glucose 110 mg/dL (74-106) H 02/23/24 05:44 Magnesium 1.5 mg/dL (1.6-2.4) L 02/20/24 13:05 Total Bilirubin 0.3 mg/dL (0.2-1.0) 02/23/24 05:44 AST < 10 U/L (15-37) L 02/23/24 05:44 ALT < 14 U/L (13-56) 02/23/24 05:44 Alkaline Phosphatase 59 U/L (45-117) 02/23/24 05:44 Home Medications: Cetirizine HCl [Zyrtec] 10 mg PO DAILY 02/20/24 Famotidine [Pepcid AC] 20 mg PO DAILY 02/20/24 Metformin HCl [Glucophage*] 500 mg PO BIDWM 02/20/24 Nitroglycerin 0.4 mg SL SEECOM PRN 02/20/24 OLANZapine [Zyprexa] 10 mg PO BEDTIME 02/20/24 Promethazine HCl 25 mg PO Q6HR PRN 02/20/24 Sitagliptin Phosphate [Januvia] 50 mg PO DAILY 02/20/24 Cefdinir [Cefdinir*] 300 mg PO BID 7 Days #14 cap 02/23/24 New Medications: Cefdinir [Cefdinir*] 300 mg PO BID 7 Days #14 cap Physician Discharge Instructions: Patient was admitted to the hospital for metabolic encephalopathy, UTI, dehydration. She was treated with IV fluids and initially levofloxacin for urinary tract infection as she had a anaphylactic penicillin allergy. Her urine culture came back and showed E. coli which was only sensitive to cephalosporins and meropenem. After further chart review in November patient had a urinary tract infection and was prescribed cefpodoxime which she reportedly tolerated well. She was given IV Rocephin during her hospitalization on 02/21 and had no adverse effects. Patient's mental status significantly improved with IV fluids and antibiotics white blood cell count was initially 12.5 is now down to 7.5, she has remained afebrile and is at her baseline mental status. Patient is stable for discharge back to [place] where she is a resident. Continue home medications as previously prescribed Start taking cefdinir 300 mg by mouth twice daily for 7 days total Diet: ADA Activity: Fall precautions Followup: Anisa Sears MD [Primary Care Provider] - 1 Week Time spent managing pt's care (in minutes): 34
== END 2024-02-23 12:38 | DRG 689 ==
LOC: ER 11:57 → ERHOLD 14:38 → 2ND 14:58
PROVIDERS: ADMIT Hospitalist; ATTEND Hospitalist
DX: N39.0 Urinary tract infection, site not specified (principal); G92.8 Other toxic encephalopathy; Z16.24 Resistance to multiple antibiotics; E11.9 Type 2 diabetes mellitus without complications; M19.90 Unspecified osteoarthritis, unspecified site; E78.5 Hyperlipidemia, unspecified; E86.0 Dehydration; E83.42 Hypomagnesemia; K21.9 Gastro-esophageal reflux disease without esophagitis; M06.9 Rheumatoid arthritis, unspecified; G47.00 Insomnia, unspecified; G30.9 Alzheimer's disease, unspecified; F02.80 Dementia in other diseases classified elsewhere, unspecified severity, without behavioral disturbance, psychotic disturbance, mood disturbance, and anxiety; B96.20 Unspecified Escherichia coli [E. coli] as the cause of diseases classified elsewhere; Z66 Do not resuscitate; Z88.0 Allergy status to penicillin; Z90.49 Acquired absence of other specified parts of digestive tract
CPT/HCPCS: 36415; 70450; 71045; 74176; 80048; 80053; 80076; 81001; 82947; 83735; 84439; 84443; 84484; 85025; 85610; 87077; 87086; 87088; 87186; 93005; 96365; 99285; J0696; J1650; J7030; J7040

== ENCOUNTER 2024-08-16 13:00 | Inpatient (IN) | payer OTHER, MEDICAID ==
[2024-08-16 14:38] LABS: Absolute Basophils 0.1 K/uL (0-0.5); Absolute Eosinophils 0.2 K/uL (0-0.5); Absolute Lymphocytes (CBC) 2.2 K/uL (0.7-4.9); Absolute Monocytes 0.7 K/uL (0.1-1.3); Absolute Neutrophil 5.7 K/uL (1.8-8.0); Eosinophils % 2.4 % (0-4.4); Hematocrit 32.5 % (36.0-45.0); Hemoglobin 10.9 g/dL (12.0-15.0); Lymphocytes % 25.1 % (15.3-44.8); MCH 31.8 pg (27.0-35.0); MCHC 33.6 g/dL (32.0-36.0); MCV 94.4 fL (80-100); MPV 8.5 fL (7.6-11.3); Monocytes % 7.4 % (3.3-12.3); Neutrophils % 64.1 % (41.7-73.7); Nucleated Red Blood Cells % 0.1 % (0-0); Platelets 166 thou/uL (152-406); RBC Red Blood Cell Count 3.44 M/uL (3.86-4.86); Red Cell Distribution Width 18.5 % (12.1-15.2)
[2024-08-16 14:55] LABS: AST/SGOT 11 U/L (15-37); Albumin 2.5 g/dL (3.4-5.0); Albumin/Globulin Ratio 0.6 (1.1-1.8); Alkaline Phosphatase 64 U/L (45-117); Anion Gap 12.6 mEq/L (5.0-15.0); BUN Blood Urea Nitrogen 38 mg/dL (7-18); Bicarbonate 21 mEq/L (21-32); Globulin 4.5 g/dL (2.3-3.5); Glomerular Filtration Rate 24 ml/min (=/>90); Glucose Level 139 mg/dL (74-106); Lipase 49 U/L (13-75); Potassium 5.6 mEq/L (3.5-5.1); Sodium Level 136 mEq/L (136-145)
[2024-08-16 14:57] LABS: ALT/SGPT < 14 U/L (13-56); Bilirubin Total < 0.2 mg/dL (0.2-1.0)
[2024-08-16] MEDS ORDERED: NA CHLORIDE 0.9% 1,000 ML ONE (15:29)
[2024-08-16 15:41] LABS: Urine Bacteria <20 /HPF (<20); Urine Bilirubin NEGATIVE (Negative); Urine Blood 1+ (Negative); Urine Clarity Extremely Turbid (Clear); Urine Color Light-Orange (Yellow); Urine Crystals Unidentified Few /HPF (None Seen); Urine Culture Reflex Order REFLEXED; Urine Glucose NEGATIVE (Negative); Urine Ketones TRACE (Negative); Urine Microscopic Reflex YN ORDER UMIC; Urine Mucus Slight /HPF (None Seen); Urine Nitrite NEGATIVE (Negative); Urine Protein 1+ (Negative); Urine RBC <5 /HPF (None Seen); Urine Urobilinogen Normal (Normal); Urine WBC >50 /HPF (<5); Urine WBC Clump Occasional /HPF (None Seen); Urine Yeast (Budding) Few /HPF (None Seen); Urine pH 6.5 (5.0-7.0)
[2024-08-16] MEDS ORDERED: CEFEPIME 2 GM VIAL ONE (16:16)
[2024-08-16] MEDS ORDERED: NA CHLORIDE 0.9% 100 ML ONE (16:16)
--- NOTE | 2024-08-16 16:19 | ER ---
Nurse's Notes [facility] Name: Ariella Bustillo Age: 79 yrs Sex: Female : 1945 Arrival Date: 08/16/2024 Time: 13:00 Bed 7 Private MD: Diagnosis: Altered mental status, unspecified;UTI/ Urinary tract infection, site not specified;Acute kidney failure, unspecified Presentation: 08/16 14:21 Acuity: FRANSISCO 3 iw Historical: - Allergies: 14:36 PENICILLINS; ll1 14:36 Iodine; ll1 - PMHx: 14:36 Alzheimer's disease; Anxiety; Anterograde Amnesia; Dementia; insomnia; DYSPHAGIA; ll1 Gastroesophageal reflux disease; diabetes mellitus; Rheumatoid Arthritis; osteoarthritis; - PSHx: 14:36 Appendectomy; back surgery; ll1 Screenin:46 [facility] ED Fall Risk Assessment (Adult) History of falling in the last 3 months, iw including since admission Yes- single mechanical fall (1 pt) Confusion or Disorientation Yes (5 pts) Intoxicated or Sedated No (0 pts) Impaired Gait Yes (1 pt) Mobility Assist Device Used Yes (1 pt) Altered Elimination Yes (1 pt) Score/Fall Risk Level 3 or more points = High Risk Oriented to surroundings, Maintained a safe environment. Abuse screen: Denies threats or abuse. Nutritional screening: No deficits noted. Assessment: 14:46 Reassessment: Patient appears in no apparent distress at this time. Patient and/or iw family updated on plan of care and expected duration. Pain level reassessed. Vital Signs: 14:36 BP 136 / 77; Pulse 77; Resp 16; Temp 97.9(O); Pulse Ox 100% on 2 lpm NC; iw 18:00 BP 135 / 55; Pulse 82; Resp 18 S; Pulse Ox 98% on 2 lpm NC; iw ED Course: 13:26 Patient arrived in ED. iw 13:27 Marcella Connell MD is Attending Physician. gb1 13:37 Chloe Hernandez, RN is Primary Nurse. iw 14:00 Patient has correct armband on for positive identification. Placed in gown. Bed in low iw position. Client placed on continuous cardiac and pulse oximetry monitoring. NIBP monitoring applied. court recording monitor on. 14:21 Triage completed. iw 14:21 Inserted saline lock: 20 gauge in left antecubital area, using aseptic technique. Blood iw collected. Flushed with 10 mL NS. 15:30 Urine collected: straight cath specimen, cloudy, Amount Returned: 250mL. iw 15:35 Urinalysis w/ reflexes Sent. iw 16:18 Angel Mcneill is Hospitalizing Provider. gb1 18:57 No provider procedures requiring assistance completed. Patient admitted, IV remains in iw place. Administered Medications: 15:26 Drug: NS 0.9% IV 1000 ml IV at 1 bolus Per protocol; to be given as a bolus over 60 iw minutes Route: IV; Rate: 1 bolus; Site: left antecubital; 17:04 Drug: Cefepime IVPB 2 grams IVPB at 200 ml/hr once over 30 mins; (mix in NS 100 mL) iw Route: IVPB; Rate: 200 ml/hr; Infused Over: 30 mins; Site: left antecubital; Medication: 14:46 VIS not applicable for this client. iw Outcome: 16:19 Decision to Hospitalize by Provider. gb1 20:09 Patient left the ED. kd3 Signatures: Chloe Hernandez, RN RAVEN iw Dunia Goodwin RN RN ll1 Soledad Cho RN RN kd3 Marcella Connell MD MD gb1 Corrections: (The following items were deleted from the chart) 14:37 14:36 BP 136 / 77; Pulse 77bpm; Resp 16bpm; Pulse Ox 100%; Temp 97.9F Oral; iw iw
--- NOTE | 2024-08-16 16:19 | EDPHYS ---
Physician Documentation [facility] Name: Ariella Bustillo Age: 79 yrs Sex: Female : 1945 Arrival Date: 08/16/2024 Time: 13:00 Bed 7 Private MD: ED Physician Marcella Connell HPI: 08/16 17:23 This 79 yrs old Female presents to ER via Unassigned with complaints of gb1 Altered Mental Status. 17:23 Ms. Bolton is a 79-year-old female from shelter facility with a gb1 history of Alzheimer's dementia, anxiety, anterior amnesia, insomnia, dysphagia with concern for new change in mental status. His history is limited due to the patient's orientation x 1, most of his history was gathered by the bedside nurse and [facility] Historical: - Allergies: 14:36 PENICILLINS; ll1 14:36 Iodine; ll1 - PMHx: 14:36 Alzheimer's disease; Anxiety; Anterograde Amnesia; Dementia; insomnia; DYSPHAGIA; ll1 Gastroesophageal reflux disease; diabetes mellitus; Rheumatoid Arthritis; osteoarthritis; - PSHx: 14:36 Appendectomy; back surgery; ll1 Exam: 17:23 Constitutional: This is a well developed, well nourished patient who is awake, alert, gb1 and in no acute distress. Head/Face: Normocephalic, atraumatic. Eyes: Pupils equal round and reactive to light, extra-ocular motions intact. Lids and lashes normal. Conjunctiva and sclera are non-icteric and not injected. Cornea within normal limits. Periorbital areas with no swelling, redness, or edema. ENT: Nares patent. No nasal discharge, no septal abnormalities noted. Tympanic membranes are normal and external auditory canals are clear. Oropharynx with no redness, swelling, or masses, exudates, or evidence of obstruction, uvula midline. Mucous membranes moist. Neck: Trachea midline, no thyromegaly or masses palpated, and no cervical lymphadenopathy. Supple, full range of motion without nuchal rigidity, or vertebral point tenderness. No Meningismus. Chest/axilla: Normal chest wall appearance and motion. Nontender with no deformity. No lesions are appreciated. Cardiovascular: Regular rate and rhythm with a normal S1 and S2. No gallops, murmurs, or rubs. Normal PMI, no JVD. No pulse deficits. Respiratory: Lungs have equal breath sounds bilaterally, clear to auscultation and percussion. No rales, rhonchi or wheezes noted. No increased work of breathing, no retractions or nasal flaring. Abdomen/GI: Soft, non-tender, with normal bowel sounds. No distension or tympany. No guarding or rebound. No evidence of tenderness throughout. Back: No spinal tenderness. No costovertebral tenderness. Full range of motion. Skin: Warm, dry with normal turgor. Normal color with no rashes, no lesions, and no evidence of cellulitis. MS/ Extremity: Pulses equal, no cyanosis. Neurovascular intact. Full, normal range of motion. Neuro: Awake and alert, GCS 15, oriented to person, Vital Signs: 14:36 BP 136 / 77; Pulse 77; Resp 16; Temp 97.9(O); Pulse Ox 100% on 2 lpm NC; iw 18:00 BP 135 / 55; Pulse 82; Resp 18 S; Pulse Ox 98% on 2 lpm NC; iw MDM: 13:36 Medical Screening Exam initiated gb1 17:23 Data reviewed: vital signs, nurses notes, lab test result(s), CBC, electrolytes, gb1 urinalysis. ED course: 79-year-old female from a shelter facility here with altered mental status, this changed from her baseline of orientation x 1 to person. Patient does have a UTI reviewed the previous urine cultures which shows sensitivity to cefepime. Patient has a penicillin allergy I prescribed cefepime 2 mg IV. Patient also has a new NATHEN with a creatinine today of greater than 2 with her baseline at 1.18. Patient will be admitted to the hospital by the hospitalist consulted.. 08/16 14:25 Order name: CBC with Diff; Complete Time: 15:28 gb1 08/16 14:25 Order name: CMP; Complete Time: 15:28 gb1 08/16 14:25 Order name: Lipase; Complete Time: 15:28 gb1 08/16 14:25 Order name: Urinalysis w/ reflexes; Complete Time: 16:06 gb1 08/16 15:45 Order name: Urine Culture EDMS 08/16 16:08 Order name: Lactate w/ 2H reflex if indic.; Complete Time: 20:03 gb1 08/16 16:08 Order name: Blood Culture Adult (2) gb1 08/16 17:03 Order name: Ghost Lactate-NO COLLECT Timer; Complete Time: 20:03 EDMS 08/16 17:49 Order name: Basic Metabolic Panel EDMS 08/16 17:49 Order name: Basic Metabolic Panel EDMS 08/16 17:49 Order name: Basic Metabolic Panel EDMS 08/16 17:49 Order name: Basic Metabolic Panel EDMS 08/16 17:49 Order name: Basic Metabolic Panel EDMS 08/16 17:49 Order name: Basic Metabolic Panel EDMS 08/16 17:49 Order name: Basic Metabolic Panel EDMS 08/16 17:49 Order name: Basic Metabolic Panel EDMS 08/16 17:49 Order name: CBC with Automated Diff EDMS / 17:49 Order name: CBC with Automated Diff EDMS / 17:49 Order name: CBC with Automated Diff EDMS /07 17:49 Order name: CBC with Automated Diff EDMS /07 17:49 Order name: CBC with Automated Diff EDMS /07 17:49 Order name: CBC with Automated Diff EDMS /07 17:49 Order name: CBC with Automated Diff EDMS /07 17:49 Order name: CBC with Automated Diff EDMS 03/07 17:49 Order name: Magnesium EDMS 03/07 17:49 Order name: Magnesium EDMS 03/07 17:49 Order name: Magnesium EDMS 03/ 17:49 Order name: Magnesium EDMS 03/07 17:49 Order name: Magnesium EDMS 03/07 17:49 Order name: Magnesium EDMS 03/07 17:49 Order name: Magnesium EDMS 03/07 17:49 Order name: Magnesium EDMS 03/07 17:49 Order name: Phosphorus EDMS 03/07 17:49 Order name: Phosphorus EDMS 03/07 17:49 Order name: Phosphorus EDMS 03/07 17:49 Order name: Phosphorus EDMS 03/07 17:49 Order name: Phosphorus EDMS 03/07 17:49 Order name: Phosphorus EDMS 03/07 17:49 Order name: Phosphorus EDMS 03/ 17:49 Order name: Phosphorus EDMS 07 19:48 Order name: Lactate Sepsis 2 HR Follow-up; Complete Time: 20:03 EDMS 08/16 17:49 Order name: Physical Therapy Consult EDGA 08/16 14:25 Order name: IV Saline Lock; Complete Time: 14:36 gb1 08/16 14:25 Order name: Labs collected and sent; Complete Time: 14:36 gb1 Administered Medications: 15:26 Drug: NS 0.9% IV 1000 ml IV at 1 bolus Per protocol; to be given as a bolus over 60 iw minutes Route: IV; Rate: 1 bolus; Site: left antecubital; 17:04 Drug: Cefepime IVPB 2 grams IVPB at 200 ml/hr once over 30 mins; (mix in NS 100 mL) iw Route: IVPB; Rate: 200 ml/hr; Infused Over: 30 mins; Site: left antecubital; Disposition Summary: 08/16/24 16:19 Hospitalization Ordered Notes: Hospitalization Status: Inpatient Admission gb1 Provider: Angel Mcniell Location: Telemetry/[facility] (Inpatient) gb1 Condition: Stable gb1 Problem: new gb1 Symptoms: have worsened gb1 Bed/Room Type: [facility] Room Assignment: 402(08/16/24 19:35) br2 Diagnosis - Altered mental status, unspecified gb1 - UTI/ Urinary tract infection, site not specified gb1 - Acute kidney failure, unspecified gb1 Forms: - Medication Reconciliation Form gb1 - SBAR form gb1 - Leadership Thank You Letter gb1 Signatures: Dispatcher [employer] Adriana Cardoza RN RN dw Williams, Irene, RN RN Dunia Goodwin RN RN 1 Marcella Connell MD MD gb1 Adina Acevedo RN RN br2 Corrections: (The following items were deleted from the chart) 19:00 16:19 gb1 dw 19:35 19:00 404 dw br2
--- NOTE | 2024-08-16 16:35 | P.HP ---
Patient History Date of Service: 08/16/24 Allergies Penicillins Allergy (Severe, Verified 09/04/11 19:12) Itching/Hives/Rash Home Medications: Cetirizine HCl [Zyrtec] 10 mg PO DAILY 02/20/24 Famotidine [Pepcid AC] 20 mg PO DAILY 02/20/24 Metformin HCl [Glucophage*] 500 mg PO BIDWM 02/20/24 Nitroglycerin 0.4 mg SL SEECOM PRN 02/20/24 OLANZapine [Zyprexa] 10 mg PO BEDTIME 02/20/24 Promethazine HCl 25 mg PO Q6HR PRN 02/20/24 Sitagliptin Phosphate [Januvia] 50 mg PO DAILY 02/20/24 Cefdinir [Cefdinir*] 300 mg PO BID 7 Days #14 cap 02/23/24 - Past Medical/Surgical History Diabetic: No -: Diabetes mellitus type 2 -: Alzheimer's dementia -: Hypertension -: Hyperlipidemia -: GERD -: RA Psychosocial/ Personal History: Patient is a resident of [facility] - Social History Alcohol use: No CD- Drugs: No Caffeine use: No Physical Examination - Studies Laboratory Data (last 24 hrs) 08/16/24 08/16/24 14:29 14:29 WBC 8.80 Hgb 10.9 L Hct 32.5 L Plt Count 166 Sodium 136 Potassium 5.6 H BUN 38 H Creatinine 2.06 H Glucose 139 H Total Bilirubin < 0.2 L AST 11 L ALT < 14 Alkaline Phosphatase 64 Lipase 49 Assessment and Plan - Advance Directives Does patient have a Living Will: No Does patient have a Durable POA for Healthcare: No
--- NOTE | 2024-08-16 20:16 | P.HP ---
Certification for Inpatient Patient admitted to: Inpatient With expected LOS: >2 Midnights Practitioner: I am a practitioner with admitting privileges, knowledge of patient current condition, hospital course, and medical plan of care. Services: Services provided to patient in accordance with Admission requirements found in Title 42 Section 412.3 of the Code of Federal Regulations Patient History Date of Service: 08/16/24 Reason for admission: UTI History of Present Illness: Ariella Bustillo is a 79 year old female with Pmhx Alzheimer's disease; Anxiety; Anterograde Amnesia; Dementia; insomnia; DYSPHAGIA; Gastroesophageal reflux disease; diabetes mellitus; Rheumatoid Arthritis; osteoarthritis who presents to the ED from the snf with AMS. On examination, she is unable to provide her medical history or symptoms. Laboratory evaluation significant for UA evident of an infection process, potassium 5.6, lactic acid 3.6, BUN/creatinine 38/2.06, GFR 24, serum glucose 139, H&H . Reviewing microbiology from February showing urine E. coli sensitive to cefepime, Ariella will be admitted to hospitalist service for further treatment of urinary tract infection and hyperkalemia. Allergies Penicillins Allergy (Severe, Verified 09/04/11 19:12) Itching/Hives/Rash Home Medications: Cetirizine HCl [Zyrtec] 10 mg PO DAILY 02/20/24 Famotidine [Pepcid AC] 20 mg PO DAILY 02/20/24 Metformin HCl [Glucophage*] 500 mg PO BIDWM 02/20/24 Nitroglycerin 0.4 mg SL SEECOM PRN 02/20/24 OLANZapine [Zyprexa] 10 mg PO BEDTIME 02/20/24 Promethazine HCl 25 mg PO Q6HR PRN 02/20/24 Sitagliptin Phosphate [Januvia] 50 mg PO DAILY 02/20/24 Cefdinir [Cefdinir*] 300 mg PO BID 7 Days #14 cap 02/23/24 - Past Medical/Surgical History Diabetic: No -: Diabetes mellitus type 2 -: Alzheimer's dementia -: Hypertension -: Hyperlipidemia -: GERD -: RA -: Appendectomy -: Back surgery Psychosocial/ Personal History: Patient is a resident of [facility] - Social History Smoking Status: Never smoker Alcohol use: No CD- Drugs: No Caffeine use: No Review of Systems is unable to be obtained Physical Examination - Physical Exam General: Alert, In no apparent distress HEENT: Atraumatic, Normocephalic Neck: Supple, 2+ carotid pulse no bruit Respiratory: Clear to auscultation bilaterally, Normal air movement Cardiovascular: Normal pulses, Regular rate/rhythm, Normal S1 S2 Capillary refill: <2 Seconds Gastrointestinal: Normal bowel sounds Musculoskeletal: No clubbing Integumentary: No rashes Neurological: Normal speech, Normal tone - Studies Laboratory Data (last 24 hrs) 08/16/24 08/16/24 14:29 14:29 WBC 8.80 Hgb 10.9 L Hct 32.5 L Plt Count 166 Sodium 136 Potassium 5.6 H BUN 38 H Creatinine 2.06 H Glucose 139 H Total Bilirubin < 0.2 L AST 11 L ALT < 14 Alkaline Phosphatase 64 Lipase 49 Assessment and Plan - Plan Assessment and plan Metabolic encephalopathy secondary to urinary tract infection Leukocytosis -Cefepime -Follow urine and blood cultures -Gentle IV fluids -Monitor in a.m. labs -Supportive care, reorient NATHEN Hypokalemia -Gentle IV fluid -Kayexalate given in the ED Diabetes mellitus -Accu-Chek with sliding scale insulin Alzheimer's disease Anxiety Anterograde Amnesia Dementia insomnia DYSPHAGIA Gastroesophageal reflux disease; diabetes mellitus Rheumatoid Arthritis osteoarthritis -Continue home medication DVT PPx SCDs Full code LOS 2 to 3 days Discharge Plan: Home Plan to discharge in: 48 Hours - Advance Directives Does patient have a Living Will: No Does patient have a Durable POA for Healthcare: No
[2024-08-16] MEDS: INSULIN REGULAR (HUMAN) 100 UNIT/ML SQ SCH (21:00)
[2024-08-16] MEDS: SOD POLYSTYREN SUL 15 GM/60 ML UCUP ONE (22:22)
[2024-08-16] MEDS: NA CHLORIDE 0.9% 1,000 ML IV SCH (22:30)
[2024-08-16] MEDS: OLANZapine 10 MG TABLET PO SCH (22:32)
[2024-08-16] MEDS: SOD POLYSTYREN SUL 15 GM/60 ML UCUP PO ONE (22:32)
[2024-08-16] MEDS: CEFEPIME 1 GM in NA CHLORIDE 0.9% 100 ML IV SCH (22:32)
[2024-08-16] MEDS: ACETAMINOPHEN 325 MG TABLET PO PRN (22:33)
[2024-08-17 00:48] VITALS: O2SAT 94; BMI 23.2
[2024-08-17 06:58] LABS: Absolute Eosinophils 0.3 K/uL (0-0.5); Absolute Lymphocytes (CBC) 1.9 K/uL (0.7-4.9); Absolute Monocytes 0.6 K/uL (0.1-1.3); Absolute Neutrophil 3.3 K/uL (1.8-8.0); Basophils % 0.8 % (0-1.3); Eosinophils % 4.3 % (0-4.4); Hematocrit 34.5 % (36.0-45.0); Hemoglobin 11.3 g/dL (12.0-15.0); Lymphocytes % 30.7 % (15.3-44.8); MCH 31.3 pg (27.0-35.0); MCHC 32.7 g/dL (32.0-36.0); MCV 95.9 fL (80-100); MPV 8.6 fL (7.6-11.3); Monocytes % 10.1 % (3.3-12.3); Neutrophils % 54.1 % (41.7-73.7); Nucleated Red Blood Cells % 0.1 % (0-0); Platelets 152 thou/uL (152-406); Red Cell Distribution Width 18.8 % (12.1-15.2)
[2024-08-17 07:17] LABS: Anion Gap 11.2 mEq/L (5.0-15.0); Magnesium 1.4 mg/dL (1.6-2.4); Phosphorus 2.5 mg/dL (2.5-4.9); Potassium 5.2 mEq/L (3.5-5.1)
[2024-08-17] MEDS: Magnesium Sulfate 2gm IVPB 2 G/50 ML BAG IV ONE (09:41)
--- NOTE | 2024-08-17 17:16 | P.PN ---
Date of Service: 08/17/24 Subjective Awake and confused unable to answer questions ROS 10 point ROS as noted above, otherwise negative Physical Exam General: Alert, confused Neck: Supple, 2+ carotid pulse no bruit Respiratory: Clear to auscultation bilaterally, Normal air movement Cardiovascular: Normal pulses, RRR, Normal S1 S2 Capillary refill: <2 Seconds Gastrointestinal: Normal bowel sounds Musculoskeletal: No clubbing Integumentary: No rashes Neurological: Normal speech, Normal tone Vitals Reviewed Problem list Metabolic encephalopathy secondary to urinary tract infection Leukocytosis NATHEN Hypokalemia Diabetes mellitus Alzheimer's disease Anxiety Anterograde Amnesia Dementia insomnia DYSPHAGIA Gastroesophageal reflux disease; diabetes mellitus Rheumatoid Arthritis osteoarthritis Assessment and Plan Metabolic encephalopathy secondary to urinary tract infection Leukocytosis -Cefepime -Follow urine and blood cultures -Gentle IV fluids -Monitor in a.m. labs -Supportive care, reorient NATHEN Hypokalemia -Gentle IV fluid -Kayexalate given in the ED Diabetes mellitus -Accu-Chek with sliding scale insulin Alzheimer's disease Anxiety Anterograde Amnesia Dementia insomnia DYSPHAGIA Gastroesophageal reflux disease Rheumatoid Arthritis osteoarthritis -Continue home medication Interval hospital course 08/17/24 -continue cefepime, tolerating well -urine growing gram negative -Potassium improved, Kayexalate today -Continues to be confused DVT PPx SCDs Full code LOS 2 to 3 days Discharge Plan: Home Plan to discharge in: 48 Hours
[2024-08-17] MEDS: SOD POLYSTYREN SUL 15 GM/60 ML UCUP PO ONE (18:20)
[2024-08-18 06:46] LABS: Anion Gap 8.8 mEq/L (5.0-15.0); Magnesium 1.9 mg/dL (1.6-2.4); Phosphorus 2.4 mg/dL (2.5-4.9); Potassium 4.8 mEq/L (3.5-5.1)
[2024-08-18 06:59] LABS: Absolute Eosinophils 0.3 K/uL (0-0.5); Absolute Lymphocytes (CBC) 1.9 K/uL (0.7-4.9); Absolute Monocytes 0.7 K/uL (0.1-1.3); Absolute Neutrophil 3.5 K/uL (1.8-8.0); Basophils % 0.7 % (0-1.3); Eosinophils % 5.3 % (0-4.4); Hematocrit 36.7 % (36.0-45.0); Hemoglobin 11.5 g/dL (12.0-15.0); Lymphocytes % 29.2 % (15.3-44.8); MCH 30.6 pg (27.0-35.0); MCHC 31.4 g/dL (32.0-36.0); MCV 97.3 fL (80-100); MPV 8.2 fL (7.6-11.3); Monocytes % 10.5 % (3.3-12.3); Neutrophils % 54.3 % (41.7-73.7); Nucleated Red Blood Cells % 0.2 % (0-0); Platelets 134 thou/uL (152-406); RBC Red Blood Cell Count 3.77 M/uL (3.86-4.86)
[2024-08-18] MEDS: POTASS/SODIUM PHOSPHATE 1 PKT POWD.PACK PO SCH (11:23)
[2024-08-18] MEDS: DIVALPROEX NA 125 MG CAP PO SCH (12:09)
[2024-08-18] MEDS: HYDRALAZINE HCL 20 MG/ML VIAL IV PRN (12:09)
--- NOTE | 2024-08-18 17:11 | P.PN ---
Date of Service: 08/18/24 Subjective Sleeping but arouses no complaints ROS 10 point ROS as noted above, otherwise negative Physical Exam General: Alert, confused Neck: Supple, 2+ carotid pulse no bruit Respiratory: Clear to auscultation bilaterally, Normal air movement Cardiovascular: Normal pulses, RRR, Normal S1 S2 Capillary refill: <2 Seconds Gastrointestinal: Normal bowel sounds Musculoskeletal: No clubbing Integumentary: No rashes Neurological: Normal speech, Normal tone Vitals Reviewed Problem list Metabolic encephalopathy secondary to urinary tract infection Leukocytosis NATHEN Hypokalemia Diabetes mellitus Alzheimer's disease Anxiety Anterograde Amnesia Dementia insomnia DYSPHAGIA Gastroesophageal reflux disease; diabetes mellitus Rheumatoid Arthritis osteoarthritis Assessment and Plan Metabolic encephalopathy secondary to urinary tract infection Leukocytosis -Cefepime -Follow urine and blood cultures -Gentle IV fluids -Monitor in a.m. labs -Supportive care, reorient NATHEN Hypokalemia-resolved -Gentle IV fluid -Kayexalate given in the ED Diabetes mellitus -Accu-Chek with sliding scale insulin Alzheimer's disease Anxiety Anterograde Amnesia Dementia insomnia DYSPHAGIA Gastroesophageal reflux disease Rheumatoid Arthritis osteoarthritis -Continue home medication Interval hospital course 08/17/24 -continue cefepime, tolerating well -urine growing gram negative -Potassium improved, Kayexalate today -Continues to be confused 08/18/24 -ESBL of the urine -Merrem started -Midline placed -hemodynamically stable DVT PPx Heparin Full code LOS 2 to 3 days Discharge Plan: Home Plan to discharge in: 48 Hours
[2024-08-18] MEDS: Meropenem 1,000 MG in NA CHLORIDE 0.9% 100 ML IV SCH (17:27)
[2024-08-18] MEDS: HEPARIN 5000 UNIT/ML 1 ML VIAL SQ SCH (20:25)
[2024-08-18] MEDS: ATORVASTATIN 10 MG TAB PO SCH (20:26)
[2024-08-19] MEDS: allopurinoL 100 MG TAB PO SCH (08:31)
[2024-08-19] MEDS: D5 0.45 NS 1,000 ML IV SCH (10:00)
[2024-08-19 10:32] LABS: Absolute Basophils 0.1 K/uL (0-0.5); Absolute Eosinophils 0.4 K/uL (0-0.5); Absolute Lymphocytes (CBC) 1.7 K/uL (0.7-4.9); Absolute Monocytes 0.5 K/uL (0.1-1.3); Basophils % 1.1 % (0-1.3); Eosinophils % 6.8 % (0-4.4); Hematocrit 34.1 % (36.0-45.0); Hemoglobin 11.1 g/dL (12.0-15.0); Lymphocytes % 29.8 % (15.3-44.8); MCH 31.2 pg (27.0-35.0); MCHC 32.6 g/dL (32.0-36.0); MCV 95.6 fL (80-100); MPV 7.5 fL (7.6-11.3); Monocytes % 9.6 % (3.3-12.3); Neutrophils % 52.7 % (41.7-73.7); Nucleated Red Blood Cells % 0.1 % (0-0); Platelets 125 thou/uL (152-406); RBC Red Blood Cell Count 3.57 M/uL (3.86-4.86); Red Cell Distribution Width 19.1 % (12.1-15.2)
[2024-08-19 10:43] LABS: Anion Gap 11.6 mEq/L (5.0-15.0); Magnesium 1.6 mg/dL (1.6-2.4); Phosphorus 3.4 mg/dL (2.5-4.9); Potassium 4.6 mEq/L (3.5-5.1)
--- NOTE | 2024-08-19 15:28 | CON ---
History Of Present Illness: This is a 79-year-old female, I was consulted for evaluation of E coli E SBL infection in her urine. The patient is not a good historian. Most of the history was obtained t [facility] medical records and staff. She has significant past medical history of Alzheimer's disease in a 79-year-old female with dementia, anxiety, insomnia, dysphagia, gastroesophageal reflux disease, d iabetes mellitus, rheumatoid arthritis, osteoarthritis, coming to the emergency room with altered men long status. A urinalysis shows patient has a urine culture positive for E coli ESBL. Currently, pat ient on meropenem. The patient denies any discomfort. Past Medical History: As per HPI. Social History: Nonsmoker. Nondrinker. long term resident. Family History: Noncontributory. Medications: Meropenem. See MARs for other medications. Allergies: PENICILLIN. Review of Systems: A 10-point review was performed. Physical Examination: General: This is a 79-year-old female, lying in bed, not in any acute cardiopulmonary distress. Vital Signs: Temperature 97, pulse 92, respirations 20, blood pressure 132/78. HEENT: Unremarkable. Neck: Supple. Lungs: Basal crackles. Heart: S1, S2. Regular. Abdomen: Soft, nontender. Bowel sounds present. Extremities: No edema. Laboratory Data: Shows WBC 5.7, hemoglobin 11.1, platelets 125. Chemistry shows BUN of 16, creatini ne 0.8. Micro data: E coli ESBL in the urine with 100,000 colonies per mL. Assessment And Plan: Altered mental status secondary to urosepsis. The patient currently on meropen em, continue for 7 days. Anemia of chronic disease. Thrombocytopenia. 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 Diabetes mellitus. Continue supportive care and monitor for signs of infection with WBC and fever trends. Thank you for consult. NF/MODL Voice ID: [id number] Report ID: [id number]
--- NOTE | 2024-08-19 19:22 | P.PN ---
Date of Service: 08/19/24 Subjective Confused, sleeping, aroused to touch ROS 10 point ROS as noted above, otherwise negative Physical Exam General: Sleeping, confused Neck: Supple, 2+ carotid pulse no bruit Respiratory: Clear to auscultation bilaterally, Normal air movement Cardiovascular: regular rate and rhythm Capillary refill: <2 Seconds Gastrointestinal: Normal bowel sounds Musculoskeletal: No clubbing Integumentary: No rashes Neurological: Normal speech, Normal tone Vitals Reviewed Problem list Metabolic encephalopathy secondary to urinary tract infection Leukocytosis NATHEN Hypokalemia Diabetes mellitus Alzheimer's disease Anxiety Anterograde Amnesia Dementia insomnia DYSPHAGIA Gastroesophageal reflux disease; diabetes mellitus Rheumatoid Arthritis osteoarthritis Assessment and Plan Metabolic encephalopathy secondary to urinary tract infection Leukocytosis -Cefepime -Follow urine and blood cultures -Gentle IV fluids -Monitor in a.m. labs -Supportive care, reorient NATHEN Hypokalemia-resolved -Gentle IV fluid -Kayexalate given in the ED Diabetes mellitus -Accu-Chek with sliding scale insulin Alzheimer's disease Anxiety Anterograde Amnesia Dementia Insomnia DYSPHAGIA Gastroesophageal reflux disease Rheumatoid Arthritis osteoarthritis -Continue home medication Interval hospital course 08/17/24 -continue cefepime, tolerating well -urine growing gram negative -Potassium improved, Kayexalate today -Continues to be confused 08/18/24 -ESBL of the urine -Merrem started -Midline placed -hemodynamically stable 08/19/24 -Dr. Welch consulted, recommends Merrem for seven days -Midline in place -will set up home antibiotics -Continue merrem -Afebrile DVT PPx Heparin Full code LOS 2 to 3 days Discharge Plan: Home Plan to discharge in: 48 Hours
[2024-08-19] MEDS: Meropenem 1,000 MG in NA CHLORIDE 0.9% 100 ML IV SCH (20:44)
[2024-08-19] MEDS: ENSURE ENLIVE 237 ML CAN PO SCH (20:44)
[2024-08-20 07:00] LABS: Absolute Basophils 0.1 K/uL (0-0.5); Absolute Eosinophils 0.4 K/uL (0-0.5); Absolute Lymphocytes (CBC) 2.6 K/uL (0.7-4.9); Absolute Monocytes 0.8 K/uL (0.1-1.3); Absolute Neutrophil 2.7 K/uL (1.8-8.0); Eosinophils % 5.6 % (0-4.4); Hematocrit 30.3 % (36.0-45.0); Hemoglobin 10.4 g/dL (12.0-15.0); Lymphocytes % 39.4 % (15.3-44.8); MCH 32.1 pg (27.0-35.0); MCHC 34.3 g/dL (32.0-36.0); MCV 93.5 fL (80-100); MPV 7.6 fL (7.6-11.3); Monocytes % 12.3 % (3.3-12.3); Neutrophils % 41.7 % (41.7-73.7); Nucleated Red Blood Cells % 0.1 % (0-0); Platelets 119 thou/uL (152-406); RBC Red Blood Cell Count 3.24 M/uL (3.86-4.86); Red Cell Distribution Width 18.8 % (12.1-15.2)
[2024-08-20 07:10] LABS: Anion Gap 8.6 mEq/L (5.0-15.0); Magnesium 1.5 mg/dL (1.6-2.4); Phosphorus 2.9 mg/dL (2.5-4.9); Potassium 4.6 mEq/L (3.5-5.1)
[2024-08-20] MEDS: MAGNESIUM SULFATE 1 gm IVPB 1 GM/100 ML BAG IV ONE (08:19)
[2024-08-20 12:15] VITALS: BP 139/59; TEMP 98.1
--- NOTE | 2024-08-20 12:34 | PN ---
Subjective: The patient is sitting up in bed, not in any acute distress, able to respond to verbal c ommand, then verbal stimuli. Able to answer simple questions. Objective: Vital Signs: Reviewed. Lungs: Basal crackles. Heart: S1, S2. Regular. Abdomen: Soft, nontender. Bowel sounds present. Extremities: No edema. Laboratory Data: Shows WBC 6.5, hemoglobin 10.4, platelets 119. Chemistry shows BUN of 17, creatini ne 0.9. Assessment And Plan: Urosepsis secondary to Escherichia coli extended-spectrum beta-lactamase, anemi a of chronic disease, thrombocytopenia. Continue antibiotic for 7 days. Repeat UA. If negative, we can stop meropenem. We will follow the patient as needed. NF/MODL Voice ID: [id number] Report ID: [id number]
--- NOTE | 2024-08-20 13:17 | P.DS ---
Admission Date: 08/16/24 Discharge Date: 08/20/24 Disposition: TRANSFER TO [facility] Discharge Condition: GOOD Reason for Admission: UTI Brief History of Present Illness: Ariella Bustillo is a 79 year old female with Pmhx Alzheimer's disease; Anxiety; Anterograde Amnesia; Dementia; insomnia; DYSPHAGIA; Gastroesophageal reflux disease; diabetes mellitus; Rheumatoid Arthritis; osteoarthritis who presents to the ED from the skilled nursing with AMS. On examination, she is unable to provide her medical history or symptoms. Laboratory evaluation significant for UA evident of an infection process, potassium 5.6, lactic acid 3.6, BUN/creatinine 38/2.06, GFR 24, serum glucose 139, H&H . Reviewing microbiology from February showing urine E. coli sensitive to cefepime, Ariella will be admitted to hospitalist service for further treatment of urinary tract infection and hyperkalemia. Hospital Course: Problem list Metabolic encephalopathy secondary to urinary tract infection Leukocytosis NATHEN Hypokalemia Diabetes mellitus Alzheimer's disease Anxiety Anterograde Amnesia Dementia insomnia DYSPHAGIA Gastroesophageal reflux disease; diabetes mellitus Rheumatoid Arthritis osteoarthritis Patient was initially admitted to the hospital for urinary tract infection, metabolic encephalopathy, acute kidney injury. Symptoms improved with hydration, her urine culture ended up growing E. coli ESBL and she was seen by infectious disease who recommended total of 7 days of IV meropenem be given which would go through 08/24/2024. On the morning of 08/19/2024 patient did have a low blood sugar reading of 82, she was temporarily started on D5 containing fluids, these were discontinued morning of 08/20 and she has been tolerating an oral diet and blood sugars have remained stable off of the dextrose-containing fluids. Antibiotics have been arranged to be received at the skilled nursing, she has a midline to the right upper extremity. She is stable for discharge and further treatment back at the skilled nursing where she resides, home medication should be continued as previously prescribed. Vital Signs/Physical Exam: Temp Pulse Resp BP Pulse Ox 98.1 F 86 16 139/59 L 96 08/20/24 12:00 08/20/24 12:00 08/20/24 12:00 08/20/24 12:00 08/20/24 12:00 General: Alert, In no apparent distress, Oriented x1 HEENT: Atraumatic, PERRLA Neck: Supple, JVD not distended Respiratory: Clear to auscultation bilaterally, Normal air movement Cardiovascular: Regular rate/rhythm, Normal S1 S2 Gastrointestinal: Normal bowel sounds Musculoskeletal: No tenderness Integumentary: No rashes Neurological: Dementia Laboratory Data at Discharge: WBC 6.50 thou/uL (4.3-10.9) 08/20/24 06:30 Hgb 10.4 g/dL (12.0-15.0) L 08/20/24 06:30 Hct 30.3 % (36.0-45.0) L 08/20/24 06:30 Plt Count 119 thou/uL (152-406) L 08/20/24 06:30 Sodium 137 mEq/L (136-145) 08/20/24 06:30 Potassium 4.6 mEq/L (3.5-5.1) 08/20/24 06:30 BUN 17 mg/dL (7-18) 08/20/24 06:30 Creatinine 0.94 mg/dL (0.55-1.02) 08/20/24 06:30 Glucose 154 mg/dL (74-106) H 08/20/24 06:30 Phosphorus 2.9 mg/dL (2.5-4.9) 08/20/24 06:30 Magnesium 1.5 mg/dL (1.6-2.4) L 08/20/24 06:30 Total Bilirubin < 0.2 mg/dL (0.2-1.0) L 08/16/24 14:29 AST 11 U/L (15-37) L 08/16/24 14:29 ALT < 14 U/L (13-56) 08/16/24 14:29 Alkaline Phosphatase 64 U/L (45-117) 08/16/24 14:29 Lipase 49 U/L (13-75) 08/16/24 14:29 Home Medications: Acetaminophen 650 mg PO Q6H PRN 08/17/24 Allopurinol 400 mg PO DAILY 08/17/24 Atorvastatin Calcium [Lipitor*] 10 mg PO BEDTIME 08/17/24 Carboxymethylcellulose Sodium [Artificial Tears] 1 gtt OPTH BID 08/17/24 Cetirizine HCl [Zyrtec*] 10 mg PO DAILY 08/17/24 Cranberry 450 mg PO DAILY 08/17/24 Divalproex [Depakote Sprinkle*] 375 mg PO BID 08/17/24 Famotidine 20 mg PO DAILY 08/17/24 Glimepiride 1 mg PO DAILY 08/17/24 Guaifenesin [Cough Syrup] 10 ml PO Q6H PRN 08/17/24 Lactobacillus Acidophilus [Acidophilus] 1 cap PO DAILY 08/17/24 Loperamide HCl [Imodium A-D] 2 mg PO Q4H PRN 08/17/24 Metformin HCl 500 mg PO BID 08/17/24 Nitroglycerin 0.4 mg SL SEECOM 08/17/24 Pantoprazole Sodium [Protonix] 40 mg PO DAILY 08/17/24 Physician Discharge Instructions: Patient was initially admitted to the hospital for urinary tract infection, metabolic encephalopathy, acute kidney injury. Symptoms improved with hydration, her urine culture ended up growing E. coli ESBL and she was seen by infectious disease who recommended total of 7 days of IV meropenem be given which would go through 08/24/2024. On the morning of 08/19/2024 patient did have a low blood sugar reading of 82, she was temporarily started on D5 containing fluids, these were discontinued morning of 08/20 and she has been tolerating an oral diet and blood sugars have remained stable off of the dextrose-containing fluids. Antibiotics have been arranged to be received at the skilled nursing, she has a midline to the right upper extremity. She is stable for discharge and further treatment back at the skilled nursing where she resides, home medication should be continued as previously prescribed. Diet: Regular Activity: Fall precautions Followup: Anisa Sears MD [Primary Care Provider] - 1 Week Time spent managing pt's care (in minutes): 45
== END 2024-08-20 15:50 | DRG 689 ==
LOC: ER 13:00 → ERHOLD 17:41 → 4TH 19:38
PROVIDERS: ADMIT Internal Medicine; ATTEND Hospitalist
DX: N39.0 Urinary tract infection, site not specified (principal); G93.41 Metabolic encephalopathy; N17.9 Acute kidney failure, unspecified; F02.84 Dementia in other diseases classified elsewhere, unspecified severity, with anxiety; Z16.12 Extended spectrum beta lactamase (ESBL) resistance; G30.9 Alzheimer's disease, unspecified; E87.5 Hyperkalemia; E87.6 Hypokalemia; K21.9 Gastro-esophageal reflux disease without esophagitis; E11.9 Type 2 diabetes mellitus without complications; D69.6 Thrombocytopenia, unspecified; M06.9 Rheumatoid arthritis, unspecified; D63.8 Anemia in other chronic diseases classified elsewhere; G47.00 Insomnia, unspecified; M19.90 Unspecified osteoarthritis, unspecified site; B96.20 Unspecified Escherichia coli [E. coli] as the cause of diseases classified elsewhere; R13.10 Dysphagia, unspecified; R41.1 Anterograde amnesia; Z88.0 Allergy status to penicillin; Z79.84 Long term (current) use of oral hypoglycemic drugs; Z90.49 Acquired absence of other specified parts of digestive tract; Z79.899 Other long term (current) drug therapy
CPT/HCPCS: 36415; 80048; 80053; 80164; 81001; 82947; 83605; 83690; 83735; 84100; 85025; 87040; 87077; 87086; 87088; 87186; 96374; 99284; J0360; J0692; J1644; J1815; J2185; J3475; J7030; J7799

== ENCOUNTER 2025-03-05 09:02 | Emergency (ER) | payer OTHER, MEDICAID ==
[2025-03-05] MEDS ORDERED: NA CHLORIDE 0.9% 500 ML ONE (09:46)
[2025-03-05] MEDS ORDERED: TDAP (DIPHTH,PERTUSS(ACELL),TET VAC) 0.5 ML VIAL IMVAC ONE (09:46)
[2025-03-05 09:50] LABS: Absolute Lymphocytes (CBC) 1.5 K/uL (0.7-4.9); Hematocrit 33.5 % (36.0-45.0); Hemoglobin 11.1 g/dL (12.0-15.0); MCH 31.0 pg (27.0-35.0); MCHC 33.0 g/dL (32.0-36.0); MCV 93.9 fL (80-100); MPV 8.9 fL (7.6-11.3); Nucleated RBC Absolute Count 0.0 (0-0); Nucleated Red Blood Cells % 0.0 % (0-0); RBC Red Blood Cell Count 3.57 M/uL (3.86-4.86); White Blood Count 8.10 thou/uL (4.3-10.9)
[2025-03-05 09:59] LABS: PT Prothrombin Time 12.5 SECONDS (10-13.0); Protime INR 1.11
[2025-03-05 10:15] LABS: ALT/SGPT 19.0 U/L (13-56); AST/SGOT 15.0 U/L (15-37); Albumin 3.1 g/dL (3.4-5.0); Albumin/Globulin Ratio 0.7 (1.1-1.8); Alkaline Phosphatase 95.0 U/L (45-117); Anion Gap 11.0 mEq/L (5.0-15.0); BUN Blood Urea Nitrogen 19.0 mg/dL (7-18); Bilirubin Indirect, Calculated 0.2 mg/dL (0.2-0.8); Globulin 4.6 g/dL (2.3-3.5); Glucose Level 117.0 mg/dL (74-106); NT PRO-BNP 262.0 pg/mL (<450); Potassium 5.0 mEq/L (3.5-5.1); Troponin High Sensitivity 12.1 pg/mL (<58.9)
[2025-03-05 10:17] LABS: Magnesium 1.0 mg/dL (1.6-2.4)
--- NOTE | 2025-03-05 10:21 | RAD REPORT ---
EXAM: CT brain without contrast HISTORY: PAIN COMPARISON: None TECHNIQUE: Multiple contiguous axial images were obtained and a CT of the brain without contrast. Sag ittal and coronal reformats were performed. One or more of the following dose reduction techniques were used: Automated exposure control, adjust ment of the mA and/or kV according to patient size, and/or iterative reconstruction. FINDINGS: No evidence of hydrocephalus, intracranial hemorrhage, or extra-axial fluid collection. Moderate brain atrophy with moderate periventricular and deep white matter chronic microvascular isc hemic changes present. No evidence of midline shift or areas of brain edema. The calvarium is intact. The visualized paranasal sinuses and mastoid air cells are essentially clear . Mild vertebral atherosclerosis. EXAM: CT of the cervical spine without contrast HISTORY: Neck pain, injury PAIN TECHNIQUE: Multiple contiguous axial images were obtained in a CT of the cervical spine without contr ast. Sagittal and coronal reformats were performed. FINDINGS: The vertebral bodies demonstrate normal height and alignment. No evidence of acute fracture or subluxation.. Mild cervical spondylosis. No prevertebral soft tissue swelling is seen. The posterior facets are well aligned. Normal alignment of the skull base with the cervical spine is seen. The lung apices are unremarkable. Bilateral carotid atherosclerosis COMBINED IMPRESSION: No evidence of acute intracranial abnormality. No evidence of acute osseous abnormality of the cervical spine.
[2025-03-05] MEDS ORDERED: KETOROLAC 30 MG/ML INJ ONE (10:31)
--- NOTE | 2025-03-05 10:31 | RAD REPORT ---
EXAM: CT CHEST, ABDOMEN AND PELVIS WITHOUT CONTRAST CLINICAL INDICATION: PAIN TECHNIQUE: CT chest, abdomen and pelvis was performed without contrast, as per department protocol. A xial, sagittal and coronal reconstructions were obtained. One or more of the following dose reduction techniques were used: Automated exposure control, adjustment of the mA and/or kV according to patient size, and/or iterative reconstruction. Unless otherwise specified, incidental findings do not require dedicated imaging follow-up. Examination is limited by the lack of intravenous contrast material. COMPARISON: No prior exam. FINDINGS: LUNGS: No evidence of airspace or interstitial process. No nodules. PLEURA: No pleural effusion. No pneumothorax. MEDIASTINUM AND LYMPH NODES: No mediastinal mass or fluid collection. Normal size mediastinal, hilar, and axillary lymph nodes. OSSEOUS STRUCTURES AND CHEST WALL: Intact. LIVER: Normal in size and contour. No focal lesion or biliary dilatation. Cholecystectomy clips. PANCREAS: No mass, ductal dilation, or isac-pancreatic fluid. SPLEEN: Normal size. No focal lesion. ADRENALS: Normal; no mass. KIDNEYS: Normal size and contour. No hydronephrosis. 3.2 cm cyst superior pole left kidney. Mild atro phy of the left kidney. URINARY BLADDER: Mild wall thickening. GASTROINTESTINAL TRACT: No bowel obstruction, free air, significant free fluid or abscess. Moderate stool is present throughout the colon. APPENDIX: Appendix not visualized, but no inflammatory changes in region of appendix. LYMPH NODES: No lymphadenopathy. MUSCULOSKELETAL: Diffuse osteopenia with lumbar degenerative changes. Mild dextroscoliosis of lumbar spine. OTHER: 3.5 cm infrarenal abdominal aortic aneurysm. IMPRESSION: No acute abnormalities seen in the chest, abdomen or pelvis.
[2025-03-05] MEDS ORDERED: Magnesium Sulfate 2gm IVPB 2 G/50 ML BAG IV ONE (10:32)
--- NOTE | 2025-03-05 11:06 | EDPHYS ---
Physician Documentation [facility] Name: Ariella Bustillo Age: 79 yrs Sex: Female : 1945 Arrival Date: 03/05/2025 Time: 09:02 Bed 3 Private MD: ED Physician Dong Camacho HPI: 03/05 10:52 This 79 yrs old Female presents to ER via EMS with complaints of Fall Injury. stacy 10:52 Details of fall: The patient fell from an upright position. Onset: The symptoms/episode stacy began/occurred just prior to arrival. Associated injuries: The patient sustained injury to the head, left bicep and left elbow, decreased range of motion. Severity of symptoms: At their worst the symptoms were mild, in the emergency department the symptoms are unchanged. The patient has not experienced similar symptoms in the past. Historical: - Allergies: 09:06 Iodine; hb 09:06 PENICILLINS; hb - PMHx: 09:06 Anxiety; diabetes mellitus; Alzheimer's disease; insomnia; DYSPHAGIA; Gastroesophageal hb reflux disease; osteoarthritis; Anterograde Amnesia; Dementia; Rheumatoid Arthritis; - PSHx: 09:06 Appendectomy; back surgery; hb - Immunization history:: Adult Immunizations unknown. - Infectious Disease History:: Denies. - Social history:: Smoking status: unknown. ROS: 10:53 Constitutional: Negative for fever, chills, and weight loss, Eyes: Negative for injury, stacy pain, redness, and discharge, ENT: Negative for injury, pain, and discharge, Neck: Negative for injury, pain, and swelling, Cardiovascular: Negative for chest pain, palpitations, and edema, Respiratory: Negative for shortness of breath, cough, wheezing, and pleuritic chest pain, Abdomen/GI: Negative for abdominal pain, nausea, vomiting, diarrhea, and constipation, Back: Negative for injury and pain, : Negative for injury, bleeding, discharge, and swelling, Neuro: Negative for headache, weakness, numbness, tingling, and seizure, Psych: Negative for depression, anxiety, suicide ideation, homicidal ideation, and hallucinations, Allergy/Immunology: Negative for hives, rash, and allergies, Endocrine: Negative for neck swelling, polydipsia, polyuria, polyphagia, and marked weight changes, Hematologic/Lymphatic: Negative for swollen nodes, abnormal bleeding, and unusual bruising, 10:53 MS/extremity: Positive for decreased range of motion, laceration, pain, of the left arm, Exam: 10:53 Constitutional: This is a well developed, well nourished patient who is awake, alert, stacy and in no acute distress. Head/Face: Normocephalic, atraumatic. Eyes: Pupils equal round and reactive to light, extra-ocular motions intact. Lids and lashes normal. Conjunctiva and sclera are non-icteric and not injected. Cornea within normal limits. Periorbital areas with no swelling, redness, or edema. ENT: Nares patent. No nasal discharge, no septal abnormalities noted. Tympanic membranes are normal and external auditory canals are clear. Oropharynx with no redness, swelling, or masses, exudates, or evidence of obstruction, uvula midline. Mucous membranes moist. Neck: Trachea midline, no thyromegaly or masses palpated, and no cervical lymphadenopathy. Supple, full range of motion without nuchal rigidity, or vertebral point tenderness. No Meningismus. Chest/axilla: Normal chest wall appearance and motion. Nontender with no deformity. No lesions are appreciated. Cardiovascular: Regular rate and rhythm with a normal S1 and S2. No gallops, murmurs, or rubs. Normal PMI, no JVD. No pulse deficits. Respiratory: Lungs have equal breath sounds bilaterally, clear to auscultation and percussion. No rales, rhonchi or wheezes noted. No increased work of breathing, no retractions or nasal flaring. Abdomen/GI: Soft, non-tender, with normal bowel sounds. No distension or tympany. No guarding or rebound. No evidence of tenderness throughout. Back: No spinal tenderness. No costovertebral tenderness. Full range of motion. Skin: Warm, dry with normal turgor. Normal color with no rashes, no lesions, and no evidence of cellulitis. Neuro: Awake and alert, GCS 15, oriented to person, place, time, and situation. Cranial nerves II-XII grossly intact. Motor strength 5/5 in all extremities. Sensory grossly intact. Cerebellar exam normal. Normal gait. Psych: Awake, alert, with orientation to person, place and time. Behavior, mood, and affect are within normal limits. 10:53 Musculoskeletal/extremity: ROM: intact in all extremities, Circulation is intact in all extremities. Sensation intact. Compartment Syndrome exam of affected extremity: is normal. DVT Exam: negative Homans' sign noted on exam, no appreciated bluish discoloration, no erythema, no increased warmth, pain, swelling, tenderness, 11:21 ECG was reviewed by the Attending Physician. [facility] Vital Signs: 09:04 BP 131 / 87; Pulse 89; Resp 20; Temp 97.8; Pulse Ox 98% on R/A; hb 11:33 BP 165 / 97; Pulse 79; Resp 19; Pulse Ox 97% on R/A; iw MDM: 09:04 Medical Screening Exam initiated stacy 09:04 Medical Screening Exam initiated [facility] 10:56 Differential diagnosis: Anterior dislocation with fracture, Anterior dislocation stacy without fracture, Posterior dislocation with fracture, Posterior dislocation without fracture, humeral head fracture, glenoid fracture, DJD, tendonitis. Differential Diagnosis altered mental status, sepsis, flu. Differential diagnosis: abrasion, closed head injury, contusion, fracture, laceration, multiple trauma, sprain, strain. Data reviewed: vital signs, nurses notes, lab test result(s), EKG, radiologic studies. Consideration of Admission/Observation Escalation of care including admission/observation considered. I considered the following discharge prescriptions or medication management in the emergency department Medications were administered in the Emergency Department. See MAR. Independent interpretation of the following test(s) in the Emergency Department EKG: See my EKG interpretation above. Test considered but Not performed: MRI: NO MRI. Historians other than the Patient: Daughter/Son: DAUGHTER WELL INFORMED. Care significantly affected by the following chronic conditions: Diabetes, Hypertension, Obesity, ALZHEIMER, INSOMNIA, GERD, DYSPHAGIA. Counseling: I had a detailed discussion with the patient and/or guardian regarding the historical points, exam findings, and any diagnostic results supporting the discharge/admit diagnosis, lab results, radiology results, the need for outpatient follow up, for definitive care, 03/05 09: Order name: Basic Metabolic Panel; Complete Time: :03/05: Order name: CBC with Diff; Complete Time: :03/05: Order name: LFT's; Complete Time: :03/05 09: Order name: Magnesium; Complete Time: :03/05: Order name: NT PRO-BNP; Complete Time: :03/05 09:27 Order name: PT-INR; Complete Time: 10: [facility] 03/05 09:27 Order name: Troponin HS; Complete Time: 10: [facility] 03/05 09:27 Order name: XRAY Chest (1 view) [facility] 03/05 09:27 Order name: Humerus Left XRAY [facility] 03/05 09:27 Order name: Elbow Left 3 View XRAY [facility] 03/05 09:40 Order name: Head C Spine Mpr Wo Con; Complete Time: 10:26 EDMD 03/05 09:41 Order name: Chest Abd Pelvis Wo Con; Complete Time: 10:48 EDMS 03/05 09:27 Order name: Cardiac monitoring; Complete Time: 10: [facility] 03/05 09:27 Order name: EKG - Nurse/Tech; Complete Time: 11:[address] [facility] 03/05 09:27 Order name: IV Saline Lock; Complete Time: 10: [facility] 03/05 09:27 Order name: Labs collected and sent; Complete Time: 10: [facility] 03/05 09:27 Order name: O2 Per Protocol; Complete Time: 10: [facility] 03/05 09:27 Order name: O2 Sat Monitoring; Complete Time: 10: [facility] 03/05 09:27 Order name: Wound dressing; Complete Time: 10:[address] [facility] EC:21 Rate is 85 beats/min. Rhythm is regular. QRS [place] is Normal. ND interval is normal. QRS stacy interval is normal. QT interval is normal. No Q waves. T waves are Normal. No ST changes noted. Clinical impression: NSR w/ Non-specific ST/T Changes and No evidence of ischemia. Interpreted by me. Reviewed by me. Administered Medications: 10:20 Drug: Boostrix Tdap IM 0.5 ml IM once; as a single dose Route: IM; Site: right deltoid; iw 10:20 Drug: NS 0.9% IV 500 ml 500 ml IV at 1 bolus once; to be given as a bolus over 30 iw minutes Volume: 500 ml; Route: IV; Rate: 1 bolus; Site: right antecubital; 11:30 Follow up: IV Status: Completed infusion iw 11:07 Not Given (Physician Discretion): magnesium sulfate2 grams IM once iw 11:07 Drug: Ketorolac IVP 15 mg IVP once Route: IVP; Site: right antecubital; iw 11:07 Drug: Magnesium Sulfate IVPB 2 grams IVPB once over 2 hrs Route: IVPB; Infused Over: 2 iw hrs; Site: right antecubital; 12:30 Follow up: IV Status: Completed infusion iw Disposition Summary: 03/05/25 11:05 Discharge Ordered Notes: Location: Home stacy Problem: new stacy Symptoms: have improved stacy Condition: Stable stacy Diagnosis - Fall (on) (from) other stairs and steps - WHEELCHAIR stacy - Laceration without foreign body of left elbow - SKIN TEAR stacy - Dementia in other diseases classified elsewhere without behavioral disturbance stacy - Hypomagnesemia stacy Followup: stacy - With: Private Physician - When: 2 - 3 days - Reason: Recheck today's complaints, Continuance of care, Re-evaluation by your physician Followup: stacy - With: Saud Carter MD - When: 2 - 3 days - Reason: Recheck today's complaints, Re-evaluation by your physician Discharge Instructions: - Discharge Summary Sheet stacy - Dementia stacy - Fall Prevention in the Home, Adult stacy - Hypomagnesemia stacy - Skin Tear stacy - Skin Tear, [id number] stacy - Fall Prevention in the Home, Adult, [id number] stacy - Dementia, Obup-gf-Naer stacy - Dementia Caregiver Guide [facility] Forms: - Medication Reconciliation Form [facility] - Antibiotic Education stacy - Prescription Opioid Use [facility] - Patient Portal Instructions [facility] - Leadership Thank You Letter [facility] Prescriptions: - Cephalexin 500 mg Oral capsule - take 1 capsule ORAL route every 8 hours for 10 days; 15 capsule; Refills: 0, [facility] Product Selection Permitted - Tylenol-Codeine #3 300mg-30mg Oral tablet - take 1 tablet ORAL route every 4 hours As needed; 16 tablet; Refills: 0, [facility] Product Selection Permitted Signatures: Dispatcher [employer] EDMD Dong Camacho MD MD cha Williams, Irene, RN RN Rosamaria Enriquez RN RN Corrections: (The following items were deleted from the chart) : 09:28 BASIC METABOLIC PANEL+C.LAB.BRZ ordered. EDMS EDMS 09:28 CBC+H.LAB.BRZ ordered. EDMS EDMS : 09:28 HEPATIC FUNCTION+C.LAB.BRZ ordered. EDMS EDMS : 09:28 MAGNESIUM+C.LAB.BRZ ordered. EDMS EDMS 09:28 PROBNP+C.LAB.BRZ ordered. EDMS EDMS 09:28 PROTIME (+INR)+COAG.LAB.BRZ ordered. EDMS EDMS 09:28 Troponin High Sensitivity+C.LAB.BRZ ordered. EDMS EDMS 09:28 Chest Single View+RAD.RAD.BRZ ordered. EDMS EDMS 09:28 Humerus Left+RAD.RAD.BRZ ordered. EDMS EDMS 09:28 Elbow Left 3 View+RAD.RAD.BRZ ordered. EDMS EDMS 09:28 Head C Spine Cap Wo Con+CT.RAD.BRZ ordered. EDMS EDMS 09:28 UA Rfx Waqas Cult if indicated+U.LAB.BRZ ordered. EDMS EDMS
--- NOTE | 2025-03-05 11:06 | ER ---
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 AOx1 at baseline. Coronavirus screen: At this time, the client does not indicate any symptoms associated with coronavirus-19. Ebola Screen: No symptoms or risks identified at this time. Initial Sepsis Screen: Does the patient meet any 2 criteria? No. Patient's initial sepsis screen is negative. Does the patient have a suspected source of infection? No. Patient's initial sepsis screen is negative. Risk Assessment: Do you want to hurt yourself or someone else? Patient reports no desire to harm self or others. Onset of symptoms was March 05, 2025. 09:04 Method Of Arrival: EMS: [facility] 09:04 Acuity: FRANSISCO 3 hb Triage Assessment: 09:07 General: Appears in no apparent distress. uncomfortable, Behavior is calm, cooperative. hb Pain: Unable to use pain scale. FLACC scale score is 5 out of 10. EENT: No signs and/or symptoms were reported regarding the EENT system. Neuro: Level of Consciousness is awake, alert, obeys commands, Oriented to person. Cardiovascular: Patient's skin is warm and dry. Respiratory: Respiratory effort is even, unlabored, Respiratory pattern is regular, symmetrical. GI: No signs and/or symptoms were reported involving the gastrointestinal system. : No signs and/or symptoms were reported regarding the genitourinary system. Derm: Skin is pink, warm \T\ dry. Musculoskeletal: Reports pain in left arm. Historical: - Allergies: 09:06 Iodine; hb 09:06 PENICILLINS; hb - PMHx: 09:06 Anxiety; diabetes mellitus; Alzheimer's disease; insomnia; DYSPHAGIA; Gastroesophageal hb reflux disease; osteoarthritis; Anterograde Amnesia; Dementia; Rheumatoid Arthritis; - PSHx: 09:06 Appendectomy; back surgery; hb - Immunization history:: Adult Immunizations unknown. - Infectious Disease History:: Denies. - Social history:: Smoking status: unknown. Screenin:09 [facility] ED Fall Risk Assessment (Adult) History of falling in the last 3 months, hb including since admission No falls in past 3 months (0 pts) Confusion or Disorientation No (0 pts) Intoxicated or Sedated No (0 pts) Impaired Gait No (0 pts) Mobility Assist Device Used No (0 pt) Altered Elimination No (0 pt) Score/Fall Risk Level 0 - 2 = Low Risk Oriented to surroundings, Maintained a safe environment, Educated pt \T\ family on fall prevention, incl call for assistance when getting out of bed. Abuse screen: Denies threats or abuse. Denies injuries from another. Nutritional screening: No deficits noted. Tuberculosis screening: No symptoms or risk factors identified. Assessment: 09:09 General: see triage assessment. hb Vital Signs: 09:04 BP 131 / 87; Pulse 89; Resp 20; Temp 97.8; Pulse Ox 98% on R/A; hb 11:33 BP 165 / 97; Pulse 79; Resp 19; Pulse Ox 97% on R/A; iw ED Course: 09:04 Patient arrived in ED. hb 09:04 Dong Camacho MD is Attending Physician. stacy 09:06 Triage completed. hb 09:07 Arm band placed on. hb 09:09 Patient has correct armband on for positive identification. Bed in low position. Call hb light in reach. Provided Education on: call light, needs reinforcement . 09:56 Head C Spine Mpr Wo Con In Process Unspecified. EDMS 09:56 Chest Abd Pelvis Wo Con In Process Unspecified. EDMS 10:16 Notified ED physician of a critical lab result(s). Magnesium 1.0. ll1 10:20 Chloe Hernandez RN is Primary Nurse. iw 10:30 Inserted saline lock: 22 gauge in right antecubital area, using aseptic technique. iw Blood collected. Flushed with 10 mL NS. 11:04 Saud Carter MD is Referral Physician. stacy 11:10 XRAY Chest (1 view) In Process Unspecified. EDMS 11:10 Humerus Left XRAY In Process Unspecified. EDMS 11:10 Elbow Left 3 View XRAY In Process Unspecified. EDMS Administered Medications: 10:20 Drug: Boostrix Tdap IM 0.5 ml IM once; as a single dose Route: IM; Site: right deltoid; iw 10:20 Drug: NS 0.9% IV 500 ml 500 ml IV at 1 bolus once; to be given as a bolus over 30 iw minutes Volume: 500 ml; Route: IV; Rate: 1 bolus; Site: right antecubital; 11:30 Follow up: IV Status: Completed infusion iw 11:07 Not Given (Physician Discretion): magnesium sulfate2 grams IM once iw 11:07 Drug: Ketorolac IVP 15 mg IVP once Route: IVP; Site: right antecubital; iw 11:07 Drug: Magnesium Sulfate IVPB 2 grams IVPB once over 2 hrs Route: IVPB; Infused Over: 2 iw hrs; Site: right antecubital; 12:30 Follow up: IV Status: Completed infusion iw Medication: 09:09 VIS not applicable for this client. hb Outcome: 11:05 Discharge ordered by MD. kumar 12:37 [facility] iw 12:37 Condition: good 12:37 Discharge instructions given to patient, family, Instructed on discharge instructions, follow up and referral plans. Demonstrated understanding of instructions, follow-up care, 12:38 Patient left the ED. iw Signatures: Dispatcher [employer] EDDong Gonzalez MD MD cha Williams, Irene, RN RAVEN iw Rosamaria Enriquez RN RN hb Lewis, Lynsay, RN RN ll1 Corrections: (The following items were deleted from the chart) 09:09 09:07 Musculoskeletal: Reports hb hb 09:37 09:04 Acuity: FRANSISCO 4 hb hb
--- NOTE | 2025-03-05 11:12 | RAD REPORT ---
EXAMINATION: XR LEFT HUMERUS HISTORY: PAIN TECHNIQUE: Multiple views of the left humerus were obtained. COMPARISON: None FINDINGS: Diffuse osteopenia. No acute fracture or dislocation seen.
--- NOTE | 2025-03-05 11:13 | RAD REPORT ---
EXAMINATION: XR LEFT ELBOW CLINICAL INDICATION: Female, 79 years old. PAIN TECHNIQUE: Multiple views of the left elbow were obtained. COMPARISON: No prior exam. FINDINGS: Diffuse osteopenia. Soft tissue swelling is seen posterior aspect of the elbow. No definit adela fracture seen.
--- NOTE | 2025-03-05 11:14 | RAD REPORT ---
EXAMINATION: ONE VIEW CHEST XR CLINICAL INDICATION: COUGH TECHNIQUE: Frontal chest projection is submitted. Examination is limited by patient positioning and t echnique. COMPARISON: 02/20/2024 FINDINGS: Mildly elevated right hemidiaphragm. The lungs are emphysematous. The heart is upper limit of normal in size. Diffuse osteopenia. No acute fracture appreciated.
[2025-03-05 13:09] VITALS: TEMP 97.8
[2025-03-05 13:11] VITALS: BP 165/97; O2SAT 97
== END 2025-03-05 12:38 | disposition home or self-care (01) ==
LOC: ER 09:02
DX: S51.012A Laceration without foreign body of left elbow, initial encounter (principal); W05.0XXA Fall from non-moving wheelchair, initial encounter; E83.42 Hypomagnesemia; G30.9 Alzheimer's disease, unspecified; F02.80 Dementia in other diseases classified elsewhere, unspecified severity, without behavioral disturbance, psychotic disturbance, mood disturbance, and anxiety; Z23 Encounter for immunization
CPT/HCPCS: 96365; 96361; 93005; 85025; 80048; 36415; 83735; 85610; 80076; 84484; 83880; 70450; 71250; 72125; 74176; 71045; 73080; 73060; 90715; 96375; 96372; 99284; J3475; J7040; J1885